=== PATIENT | female | born 1980 | race African-American/Black ===

== ENCOUNTER 2022-10-12 16:25 | Emergency (ER) | payer OTHER, SELFPAY ==
[2022-10-12 16:31] VITALS: BP 118/93; PULSE 70; RESP 16; TEMP 36.7; O2SAT 100; BMI 29.0
[2022-10-12 16:34] VITALS: BP 118/93; PULSE 64; RESP 13; O2SAT 98
--- NOTE | 2022-10-12 16:46 | ECG_ITS ---
The [facility] Test Date: 2022-10-12 Pat Name: Margaux Garcia Department: Room: - Gender: Female Patient Access Representative: : 1980 Requested By: YULIANA CREWS Order Number: [id number] Reading MD: BRANDI HENRY Measurements Intervals [place] Rate: 63 P: 68 CT: 194 QRS: 94 QRSD: 80 T: 69 QT: 420 QTc: 428 Interpretive Statements 1100 Sinus rhythm 7102 Moderate right axis deviation 9110 normal ECG No previous ECG available for comparison Electronically Signed On 10-14-2022 19:39:42 EDT by BRANDI HENRY
--- NOTE | 2022-10-12 16:46 | XR_ITS ---
The [address] [address] Patient Name: NEEL SAMSON MRN: [id number] date: 1980 Sex: F Assigned Patient Location: ER Current Patient Location: ED.MAIN Accession/Order Number: [id number] Exam Date: 10/12/2022 17:11 Report Date: 10/12/2022 18:25 At the request of: KALPESH MALHOTRA Procedure: XR chest 1V EXAM: XR chest 1V HISTORY: chest pain COMPARISON: None. TECHNIQUE: AP portable study FINDINGS: The cardiovascular silhouette is normal. Lung collins are well-expanded and clear. Pleural spaces are clear. The bony structures are unremarkable. IMPRESSION: No evidence for acute cardiopulmonary disease. Electronically authenticated by: Dane RINALDI Date: 10/12/2022 18:25
--- NOTE | 2022-10-12 16:49 | ED_ITS ---
HPI - Chest Pain General Chief Complaint: Chest Pain Stated Complaint: SHORTNESS OF BREATH CHEST PAIN BACK PAIN Time Seen by Provider: 10/12/22 16:35 Source: patient Mode of arrival: walk-in Limitations: no limitations History of Present Illness HPI narrative: 42-year-old female presents for chest pain and shortness of breath. She was fine last night when she went to bed and when she woke up early this morning she had these symptoms. It's been continuous all day. No injury. No fever. The pain is continuous. It doesn't seem to radiate and doesn't go into her back. No vomiting. Related Data Allergies Allergy/AdvReac Type Severity Reaction Status Date / Time No Known Drug Allergies Allergy Verified 10/12/22 17:15 Review of Systems ROS Narrative A ten point review of systems is negative except as noted above. PFSH PFSH Social History Smoking status: Former smoker Exam Narrative Exam Narrative: Nurses note and vital signs reviewed and patient is not hypoxic. General: The patient appears well and in no apparent distress. Patient is resting comfortably on cart. Skin: Warm, dry, no pallor noted. There is no rash noted. Head: Normocephalic, atraumatic Eye: Normal conjunctiva, no drainage Ears, Nose, Mouth, and Throat: oral mucosa is moist. Nares patent. Cardiovascular: Regular Rate and Rhythm Respiratory: Patient is in no distress, no accessory muscle use, lungs are clear to auscultation, no wheezing, rales or rhonchi Back: non-tender GI: Normal bowel sounds, no tenderness to palpation, no masses appreciated. No rebound, guarding, or rigidity noted. Musculoskeletal: The patient has no evidence of calf tenderness, no pitting edema, symmetrical pulses noted bilaterally Neurological: A&O, normal speech Psychiatric: Cooperative Constitutional Vital Signs - 24 hr 10/12/22 16:31 10/12/22 16:34 10/12/22 17:22 Temperature 98.1 F Pulse Rate 64 61 Pulse Rate [Monitor] 70 Respiratory Rate 16 13 14 Blood Pressure 118/93 H 115/81 H Blood Pressure [Left Arm] 118/93 H Pulse Oximetry 100 98 98 Oxygen Delivery Method Room Air Course Vital Signs Vital signs: Vital Signs Temperature 98.1 F 10/12/22 16:31 Pulse Rate 70 10/12/22 16:31 Respiratory Rate 16 10/12/22 16:31 Blood Pressure 118/93 H 10/12/22 16:31 Pulse Oximetry 100 10/12/22 16:31 Oxygen Delivery Method Room Air 10/12/22 16:31 Temperature 98.1 F 10/12/22 16:31 Pulse Rate 61 10/12/22 17:22 Respiratory Rate 14 10/12/22 17:22 Blood Pressure 115/81 H 10/12/22 17:22 Pulse Oximetry 98 10/12/22 17:22 Oxygen Delivery Method Room Air 10/12/22 16:31 MDM - Chest Pain MDM Narrative Medical decision making narrative: her workup including chest x-ray, troponin, and d-dimer is negative. She is able to be discharged home. Cause uncertain. Treatment diagnosis and follow up are discussed with the patient and her Differential Diagnosis Differential diagnosis: Likely pneumothorax, unstable angina pectoris, atypical chest pain, st elevation myocardial infarction, costochondritis and chest pain Lab Data Attestation: I reviewed the patient's lab results. Labs: Lab Results 10/12/22 Range/Units 17:05 WBC 4.6 (4.0-11.0) 10^3/uL RBC 4.76 (4.20-5.40) 10^6/uL Hgb 13.9 (12.0-16.0) g/dL Hct 42.2 (36.0-48.0) % MCV 88.7 (81.0-99.0) fL MCH 29.2 (26.7-34.0) pg MCHC 32.9 (29.9-35.2) g/dL RDW 12.6 (11.0-15.0) % Plt Count 254 (150-450) 10^3/uL MPV 9.1 L (9.5-13.5) fL Neut % (Auto) 43.9 (43.0-75.0) % Lymph % (Auto) 37.4 (20.5-60.0) % [place] % (Auto) 12.1 H (1.7-12.0) % Eos % (Auto) 5.5 (0.9-7.0) % Baso % (Auto) 0.7 (0.2-2.0) % Neut # (Auto) 2.0 (1.4-6.5) 10^3/uL Lymph # (Auto) 1.7 (1.2-3.8) 10^3/uL [place] # (Auto) 0.6 (0.3-0.8) 10^3/uL Eos # (Auto) 0.3 (0.0-0.7) 10^3/uL Baso # (Auto) 0.0 (0.0-0.1) 10^3/uL Abs Immat Gran (auto) 0.02 (0.00-0.03) 10^3/uL Imm/Tot Granulo (auto) 0.4 (0.0-0.5) % D-Dimer 0.50 (<=0.59) mg/L FEU Sodium 139 (136-145) mmol/L Potassium 4.0 (3.5-5.1) mmol/L Chloride 105 (98-107) mmol/L Carbon Dioxide 26.7 (21.0-32.0) mmol/L Anion Gap 11.3 BUN 12.0 (7.0-18.0) mg/dL Creatinine 0.90 (0.55-1.02) mg/dL Est GFR ( Amer) >60 (>=60) Est GFR (Non-Af Amer) >60 (>=60) BUN/Creatinine Ratio 13.3 Glucose 89 (74-106) mg/dL Calcium 8.9 (8.5-10.1) mg/dL Troponin I High Sens <4.0 L (4.0-51.3) pg/mL ECG Data Attestation: I personally reviewed and interpreted this ECG as follows: (EKG on my interpretation shows sinus rhythm with rate of sixty-three and no acute changes.) Heart Score History: Slightly/Non-Suspicious ECG: Normal Age: <45 years Risk Factors: No Risk Factors Troponin: <Normal Limit Total Heart Score Recommendations & Risks:: 0 Discharge Plan Discharge Chief Complaint: Chest Pain Clinical Impression: Atypical chest pain Patient Disposition: Home, Self-Care Time of Disposition Decision: 18:39 Mode of Transportation: Private Vehicle Instructions: Chest Pain (ED) Stand Alone Forms: Portal Instructions Referrals: YULIANA CREWS [Primary Care Provider] - 1 week
[2022-10-12 17:16] LABS: Basophils Percent Auto 0.7 % (0.2-2.0); Eosinophils Absolute Auto 0.3 10^3/uL (0.0-0.7); Eosinophils Percent Auto 5.5 % (0.9-7.0); Hematocrit 42.2 % (36.0-48.0); Hemoglobin 13.9 g/dL (12.0-16.0); Immature Granulocytes Abs Auto 0.02 10^3/uL (0.00-0.03); Immature Granulocytes Pct Auto 0.4 % (0.0-0.5); Lymphocytes Absolute Auto 1.7 10^3/uL (1.2-3.8); Lymphocytes Percent Auto 37.4 % (20.5-60.0); Mean Corpuscular HGB Conc 32.9 g/dL (29.9-35.2); Mean Corpuscular Hemoglobin 29.2 pg (26.7-34.0); Mean Corpuscular Volume 88.7 fL (81.0-99.0); Mean Platelet Volume 9.1 fL (9.5-13.5); Monocytes Absolute Auto 0.6 10^3/uL (0.3-0.8); Monocytes Percent Auto 12.1 % (1.7-12.0); Neutrophils Percent Auto 43.9 % (43.0-75.0); Platelet Count 254 10^3/uL (150-450); Red Blood Count 4.76 10^6/uL (4.20-5.40); Red Cell Distribution Width 12.6 % (11.0-15.0); White Blood Count 4.6 10^3/uL (4.0-11.0)
[2022-10-12 17:22] VITALS: BP 115/81; PULSE 61; RESP 14; RESP 20; O2SAT 98; O2SAT 99
[2022-10-12] MEDS: ASPIRIN 81 MG TAB.CHEW 324 MG PO (17:23)
[2022-10-12 17:30] VITALS: BP 114/80; PULSE 58; RESP 15; O2SAT 99
[2022-10-12 17:31] LABS: Anion Gap 11.3; BUN Creatinine Ratio 13.3; Calcium 8.9 mg/dL (8.5-10.1); Carbon Dioxide 26.7 mmol/L (21.0-32.0); Chloride 105 mmol/L (98-107); Estimated GFR (African America >60 (>=60); Estimated GFR (Non-African Ame >60 (>=60); Glucose 89 mg/dL (74-106); Sodium 139 mmol/L (136-145); Troponin I High Sensitivity <4.0 pg/mL (4.0-51.3)
[2022-10-12 18:00] VITALS: BP 115/77; PULSE 58; RESP 15; O2SAT 98
[2022-10-12 18:30] VITALS: BP 108/77
== END 2022-10-12 18:56 | disposition home or self-care (01) ==
PROVIDERS: Emergency Provider Emergency Medicine; PCP Family Medicine
DX: R07.89 Other chest pain (principal); Z87.891 Personal history of nicotine dependence
CPT/HCPCS: 36415; 71045; 80048; 84484; 85025; 85378; 93005; 99285

== ENCOUNTER 2022-11-13 07:55 | Outpatient (OUT) | payer OTHER, SELFPAY ==
--- NOTE | 2022-11-13 07:57 | US_ITS ---
The [address] [address] Patient Name: NEEL SAMSON MRN: [id number] date: 1980 Sex: F Assigned Patient Location: US Current Patient Location: US Accession/Order Number: [id number] Exam Date: 11/13/2022 08:05 Report Date: 11/13/2022 09:13 At the request of: YAZAN MARTINEZ Procedure: US renal BI EXAM: Renal ultrasound HISTORY: . Flank Pain R10.9, Mixed Incontinence N39.46 . COMPARISON: None. TECHNIQUE: Grayscale and color imaging was performed FINDINGS: Scanning of the filled bladder demonstrates a volume of 394 cc. No masses are noted. No bladder wall thickening is noted. Post void residual was 39 cc. Scanning of the right kidney demonstrates right kidney to measure 12.7 x 4.7 x 4.9 cm. Color-flow is noted. There is a 1.2 x 1 cm cyst involving the right kidney. No solid renal cortical masses or hydronephrosis is noted. Left kidney measures 11.2 x 5.2 x 5.3 cm. Color-flow is noted. No solid renal cortical masses or hydronephrosis is noted. Impression: 1. Normal-appearing left kidney. 2. 1.2 cm cyst involving the right kidney. No hydronephrosis. 3. Normal-appearing bladder. Post void residual was 39 cc for a post void residual of approximately 10%. Electronically authenticated by: BRYAN INGRAM Date: 11/13/2022 09:13
== END 2022-11-13 07:56 | disposition home or self-care (01) ==
LOC: US 07:55
PROVIDERS: PCP Family Medicine; Visit Provider Urology
DX: R10.9 Unspecified abdominal pain (principal); N39.46 Mixed incontinence; R31.29 Other microscopic hematuria; N28.1 Cyst of kidney, acquired
CPT/HCPCS: 76775

== ENCOUNTER 2022-11-23 16:38 | Emergency (ER) | payer OTHER, SELFPAY ==
[2022-11-23 16:53] VITALS: BP 129/74; PULSE 72; RESP 14; TEMP 37.1; O2SAT 100; BMI 27.1
[2022-11-23 17:22] LABS: Bilirubin Urine NEGATIVE (NEGATIVE); Blood Urine MODERATE (NEGATIVE); Clarity Urine CLEAR (CLEAR); Color Urine YELLOW (YELLOW); Glucose Urine UA NEGATIVE (NEGATIVE); Ketones Urine NEGATIVE (NEGATIVE); Leukocyte Esterase Urine NEGATIVE (NEGATIVE); Nitrite Urine NEGATIVE (NEGATIVE); Protein Urine NEGATIVE (NEG/TRACE); Specific Gravity Urine 1.025 (1.005-1.025); Urobilinogen Urine 0.2 EU/dL (0.2-1.0); pH Urine 5.5 (5.0-9.0)
[2022-11-23 17:30] LABS: Urine Microscopic Indicated YES
[2022-11-23 17:31] LABS: Bacteria Urine NONE SEEN #/HPF (NONE SEEN); Cast Seen? NONE SEEN #/LPF (NONE SEEN); Crystals Seen? None Seen #/HPF (None Seen); Mucus Urine NONE SEEN (NONE SEEN); RBC Urine 0-2 #/HPF (0-2); Squamous Epithelial Cell Urine FEW #/LPF (NONE/RARE); Urine Culture Indicated NO; WBC Urine NONE SEEN #/HPF (NONE SEEN)
--- NOTE | 2022-11-23 18:59 | CT_ITS ---
[address] [address] Patient Name: NEEL SAMSON MRN: [id number] date: 1980 Sex: F Assigned Patient Location: ER Current Patient Location: [facility] Accession/Order Number: [id number] Exam Date: 11/23/2022 19:25 Report Date: 11/23/2022 20:46 At the request of: SOCO SOLIS Procedure: CT abdomen pelvis wo con EXAM: CT abdomen pelvis wo con REASON FOR EXAM: Female, 42 years, right flank pain. TECHNIQUE: Computed tomography of the abdomen and pelvis is performed in the axial projection from the lung bases to the pubic symphysis. Sagittal and coronal reconstructed images are performed. Dose reduction techniques were achieved by using automated exposure control and/or adjustment of mA and/or KVP according to patient size and/or use of iterative reconstruction technique. Study was performed without IV contrast. Study was performed without oral contrast. COMPARISON: 03/16/2018 FINDINGS: Lung bases: The lung bases are clear. There is no pleural effusion. The visualized portions of the heart are unremarkable. The lack of intravenous contrast slightly limits evaluation of the solid abdominal organs. Liver: The liver is normal. Gallbladder: The gallbladder is contracted. Spleen: The spleen is normal. Pancreas: The pancreas is normal. Adrenal glands: The adrenal glands are normal bilaterally. Right kidney: The kidney is normal in size. There is a 1.1 cm low-attenuation region in the inferior pole of the right kidney consistent with a cyst. There is no renal calculus or hydronephrosis. Left kidney: The kidney is normal in size. There is no renal calculus or hydronephrosis. Stomach: The stomach is normal. Small bowel: The small bowel is normal. Large bowel: The colon is normal. Appendix: The appendix is visualized, and is normal. Aorta: The aorta is normal. IVC: The IVC is normal. Retroperitoneum: Normal retroperitoneum. Bladder: The bladder is normal. Pelvic organs: The uterus is absent, consistent with hysterectomy. Abdominal wall: There is a tiny fat-containing umbilical hernia. Postoperative changes are seen to the anterior low abdominal wall. Osseous structures: Degenerative changes are seen in the visualized spine. CT/CT abdomen pelvis wo con IMPRESSION: No bowel obstruction or acute renal pathology. Normal appendix. Additional nonacute findings, as described above. Electronically authenticated by: CARLI GOMEZ Date: 11/23/2022 20:46
[2022-11-23 19:30] LABS: Basophils Percent Auto 0.7 % (0.2-2.0); Eosinophils Absolute Auto 0.1 10^3/uL (0.0-0.7); Eosinophils Percent Auto 2.2 % (0.9-7.0); Hematocrit 39.5 % (36.0-48.0); Immature Granulocytes Abs Auto 0.01 10^3/uL (0.00-0.03); Immature Granulocytes Pct Auto 0.2 % (0.0-0.5); Lymphocytes Percent Auto 37.6 % (20.5-60.0); Mean Corpuscular HGB Conc 32.9 g/dL (29.9-35.2); Mean Corpuscular Volume 88.2 fL (81.0-99.0); Monocytes Absolute Auto 0.6 10^3/uL (0.3-0.8); Monocytes Percent Auto 10.9 % (1.7-12.0); Neutrophils Absolute Auto 2.6 10^3/uL (1.4-6.5); Neutrophils Percent Auto 48.4 % (43.0-75.0); Platelet Count 235 10^3/uL (150-450); Red Blood Count 4.48 10^6/uL (4.20-5.40); Red Cell Distribution Width 13.2 % (11.0-15.0); White Blood Count 5.4 10^3/uL (4.0-11.0)
[2022-11-23 19:45] LABS: Alanine Aminotransferase 27 U/L (14-59); Albumin Globulin Ratio 1.2; Albumin Level 4.2 g/dL (3.4-5.0); Alkaline Phosphatase 65 U/L (46-116); Aspartate Amino Transferase 18 U/L (15-37); BUN Creatinine Ratio 10.2; Bilirubin Total 0.8 mg/dL (0.2-1.0); Calcium 8.3 mg/dL (8.5-10.1); Carbon Dioxide 22.9 mmol/L (21.0-32.0); Chloride 107 mmol/L (98-107); Estimated GFR (African America >60 (>=60); Estimated GFR (Non-African Ame >60 (>=60); Globulin 3.4 g/dL; Glucose 80 mg/dL (74-106); Sodium 141 mmol/L (136-145); Total Protein 7.6 g/dL (6.4-8.2)
[2022-11-23 19:50] LABS: Potassium 2.9 mmol/L (3.5-5.1)
[2022-11-23] MEDS: KETOROLAC TROMETHAMINE 30 MG/ML VIAL IVP (20:08)
[2022-11-23] MEDS: ONDANSETRON PF 4 MG/2 ML VIAL IV (20:08)
[2022-11-23] MEDS: 0.9 % SODIUM CHLORIDE 1,000 ML 1000 ML IV ×2 (20:09→23:39)
--- NOTE | 2022-11-23 20:43 | ED_ITS ---
HPI - General Adult General Chief complaint: Urogenital-Female Stated complaint: severe back pain Time Seen by Provider: 11/23/22 17:43 Source: patient and family Mode of arrival: Wheelchair Limitations: no limitations History of Present Illness HPI narrative: 42-year-old female presents her chief complaint of right flank pain. States she's had the pain on and off for last several days. She has pain that radiates from her right flank into the groin area. Mild nausea. Denies known history of stones. Vital signs are stable she is afebrile. Related Data Previous Rx's Medication Instructions Recorded cephalexin 500 mg capsule 500 mg PO BID 7 days #14 caps 11/23/22 Allergies Allergy/AdvReac Type Severity Reaction Status Date / Time No Known Drug Allergies Allergy Verified 11/23/22 17:02 Review of Systems ROS Narrative All Systems are negative except as noted/marked.All systems reviewed and otherwise negative PFSH PFSH Social History Smoking status: Former smoker Exam Narrative Exam Narrative: Nurses note and vital signs reviewed and patient is not hypoxic. General: The patient appears well and in no apparent distress. Patient is resting comfortably on cart. Skin: Warm, dry, no pallor noted. There is no rash noted. Head: Normocephalic, atraumatic Eye: Normal conjunctiva, no drainage, EOMI. PERRL Ears, Nose, Mouth, and Throat: oral mucosa is moist. Nares patent. Mouth without vesicles. Ear canals patent. Tm's without Erythema Cardiovascular: Regular Rate and Rhythm Respiratory: Patient is in no distress, no accessory muscle use, lungs are clear to auscultation, no wheezing, rales or rhonchi Back: non-tender, no CVA tenderness bilaterally to percussion. GI: Normal bowel sounds, no tenderness to palpation, no masses appreciated. No rebound, guarding, or rigidity noted. Musculoskeletal: The patient has no evidence of calf tenderness, no pitting edema, symmetrical pulses noted bilaterally Neurological: A&O x4, normal speech Psychiatric: Cooperative Constitutional Vital Signs, click to edit/add: Last Vital Signs Temp 98.8 F 11/23/22 16:53 Pulse 72 11/23/22 16:53 Resp 14 11/23/22 16:53 BP 129/74 11/23/22 16:53 Pulse Ox 100 11/23/22 16:53 O2 Del Method Room Air 11/23/22 16:53 Course Vital Signs Vital signs: Vital Signs Temperature 98.8 F 11/23/22 16:53 Pulse Rate 72 11/23/22 16:53 Respiratory Rate 14 11/23/22 16:53 Blood Pressure 129/74 11/23/22 16:53 Pulse Oximetry 100 11/23/22 16:53 Oxygen Delivery Method Room Air 11/23/22 16:53 Temperature 98.8 F 11/23/22 16:53 Pulse Rate 72 11/23/22 16:53 Respiratory Rate 14 11/23/22 16:53 Blood Pressure 129/74 11/23/22 16:53 Pulse Oximetry 100 11/23/22 16:53 Oxygen Delivery Method Room Air 11/23/22 16:53 Medical Decision Making MDM Narrative Medical decision making narrative: 42-year-old female presents her chief complaint of right flank pain. States she's had the pain on and off for last several days. She has pain that radiates from her right flank into the groin area. Mild nausea. Denies known history of stones. Vital signs are stable she is afebrile. Presented chief complaint of flank pain. She has seen urology in the past for a cystoscopy. She had blood in her urine here today. CT scan abdomen and pelvis ruled out any nephrolithiasis. Patient was medicated here with Toradol Zofran. Her symptoms did improve. CBC and CMP reviewed. Patient at low potassium medicated here with 40 mEq of potassium. Patient be instructed to follow-up with neurology Dr. Sotelo primary care physician. She'll be discharged home with potassium and Keflex. His pain has improved. Patient's pain and back pain due to muscle spasm. No acute pathology for flank pain patient medicated here with for her hypokalemia discharged home patient verbalizes understanding resupply of care Differential Diagnosis Differential Diagnosis: Nephrolithiasis, flank pain, hematuria, urinary tract infection Medical Records Medical records reviewed: Yes I reviewed the patient's medical records Lab Data Lab results reviewed: Yes I reviewed the patient's lab results Labs: Lab Results 11/23/22 11/23/22 Range/Units 17:00 19:20 WBC 5.4 (4.0-11.0) 10^3/uL RBC 4.48 (4.20-5.40) 10^6/uL Hgb 13.0 (12.0-16.0) g/dL Hct 39.5 (36.0-48.0) % MCV 88.2 (81.0-99.0) fL MCH 29.0 (26.7-34.0) pg MCHC 32.9 (29.9-35.2) g/dL RDW 13.2 (11.0-15.0) % Plt Count 235 (150-450) 10^3/uL MPV 10.0 (9.5-13.5) fL Neut % (Auto) 48.4 (43.0-75.0) % Lymph % (Auto) 37.6 (20.5-60.0) % [place] % (Auto) 10.9 (1.7-12.0) % Eos % (Auto) 2.2 (0.9-7.0) % Baso % (Auto) 0.7 (0.2-2.0) % Neut # (Auto) 2.6 (1.4-6.5) 10^3/uL Lymph # (Auto) 2.0 (1.2-3.8) 10^3/uL [place] # (Auto) 0.6 (0.3-0.8) 10^3/uL Eos # (Auto) 0.1 (0.0-0.7) 10^3/uL Baso # (Auto) 0.0 (0.0-0.1) 10^3/uL Abs Immat Gran (auto) 0.01 (0.00-0.03) 10^3/uL Imm/Tot Granulo (auto) 0.2 (0.0-0.5) % Sodium 141 (136-145) mmol/L Potassium 2.9 L* (3.5-5.1) mmol/L Chloride 107 (98-107) mmol/L Carbon Dioxide 22.9 (21.0-32.0) mmol/L Anion Gap 14.0 BUN 10.0 (7.0-18.0) mg/dL Creatinine 0.98 (0.55-1.02) mg/dL Est GFR ( Amer) >60 (>=60) Est GFR (Non-Af Amer) >60 (>=60) BUN/Creatinine Ratio 10.2 Glucose 80 (74-106) mg/dL Calcium 8.3 L (8.5-10.1) mg/dL Total Bilirubin 0.8 (0.2-1.0) mg/dL AST 18 (15-37) U/L ALT 27 (14-59) U/L Alkaline Phosphatase 65 (46-116) U/L Total Protein 7.6 (6.4-8.2) g/dL Albumin 4.2 (3.4-5.0) g/dL Globulin 3.4 g/dL Albumin/Globulin Ratio 1.2 Urine Color Yellow (YELLOW) Urine Clarity Clear (CLEAR) Urine pH 5.5 (5.0-9.0) Ur Specific [place] 1.025 (1.005-1.025) Urine Protein Negative (NEG/TRACE) mg/dL Urine Glucose (UA) Negative (NEGATIVE) mg/dL Urine Ketones Negative (NEGATIVE) mg/dL Urine Occult Blood Moderate A (NEGATIVE) Urine Nitrite Negative (NEGATIVE) Urine Bilirubin Negative (NEGATIVE) Urine Urobilinogen 0.2 (0.2-1.0) EU/dL Ur Leukocyte Esterase Negative (NEGATIVE) Urine RBC 0-2 (0-2) #/HPF Urine WBC None seen (NONE SEEN) #/HPF Ur Squamous Epith Cells Few A (NONE/RARE) #/LPF Urine Crystals None seen (None Seen) #/HPF Urine Bacteria None seen (NONE SEEN) #/HPF Urine Casts None seen (NONE SEEN) #/LPF Urine Mucus None seen (NONE SEEN) Ur Culture Indicated? No Discharge Plan Discharge Chief Complaint: Urogenital-Female Clinical Impression: Hematuria, Acute hypokalemia Patient Disposition: Home, Self-Care Time of Disposition Decision: 20:55 Prescriptions / Home Meds: New cephalexin 500 mg capsule 500 mg PO BID 7 Days Qty: 14 0RF Instructions: Hypokalemia (ED), Hematuria (ED) Stand Alone Forms: Portal Instructions Referrals: YULIANA CREWS [Primary Care Provider] - 1 week Discharge Date/Time: 11/24/22 01:33
[2022-11-23] MEDS: POTASSIUM CHLORIDE IN WATER 10 MEQ/100 ML PIGGYBACK 100 MEQ IV ×2 (22:04→22:06)
--- NOTE | 2022-11-23 23:48 | ECG_ITS ---
The [facility] Test Date: 2022-11-23 Pat Name: NEEL SAMSON Department: Room: - Gender: Female Exhibit Display Representative: : 1980 Requested By: YULIANA CREWS Order Number: [id number] Reading MD: BRANDI HENRY Measurements Intervals [place] Rate: 69 P: 90 [place]: 194 QRS: 94 QRSD: 86 T: 76 QT: 436 QTc: 456 Interpretive Statements 1100 Sinus rhythm 7102 Moderate right axis deviation 8304 Long QTc interval 9150 abnormal ECG Compared to ECG 10/12/2022 16:38:07 No significant changes Electronically Signed On 11-25-2022 18:21:20 EDT by BRANDI HENRY
[2022-11-24] MEDS: 0.9 % SODIUM CHLORIDE 1,000 ML 1000 ML IV (00:13)
[2022-11-24] MEDS: POTASSIUM CHLORIDE IN WATER 10 MEQ/100 ML PIGGYBACK 100 MEQ IV (00:13)
[2022-11-24] MEDS: HYDROCODONE/ACETAMINOPHEN 5-325 MG TABLET 4 TAB PO (01:14)
== END 2022-11-24 01:33 | disposition home or self-care (01) ==
PROVIDERS: Emergency Medicine; Physician Assistant; Emergency Provider Internal Medicine; PCP Family Medicine
DX: E87.6 Hypokalemia (principal); R31.9 Hematuria, unspecified; Z87.891 Personal history of nicotine dependence
CPT/HCPCS: 36415; 74176; 80053; 81001; 81003; 85025; 93005; 96365; 96366; 96375; 96376; 99285

== ENCOUNTER 2023-08-21 07:55 | Outpatient (OUT) | payer OTHER, SELFPAY ==
--- NOTE | 2023-08-20 | XR_ITS ---
The [address] [address] Patient Name: NEEL SAMSON MRN: [id number] date: 1980 Sex: F Assigned Patient Location: Current Patient Location: Accession/Order Number: [id number] Exam Date: 08/20/2023 10:45 Report Date: 08/20/2023 11:43 At the request of: BRADEN TORO Procedure: XR ankle RT min 3V PROCEDURE: XR ankle RT min 3V, XR foot RT min 3V COMPARISON: 07/01/2019. HISTORY: RIGHT ANKLE PAIN FINDINGS: BONES:No fracture, acute abnormality, or significant arthropathy. SOFT TISSUES:Negative. No visible soft tissue swelling. EFFUSION:None visible. OTHER: Negative. XR/XR ankle RT min 3V IMPRESSION: No acute radiographic abnormality Electronically authenticated by: BRYAN HUANG Date: 08/20/2023 11:43
--- NOTE | 2023-08-20 | XR_ITS ---
The [address] [address] Patient Name: NEEL SAMSON MRN: [id number] date: 1980 Sex: F Assigned Patient Location: Current Patient Location: Accession/Order Number: [id number] Exam Date: 08/20/2023 10:45 Report Date: 08/20/2023 11:43 At the request of: BRADEN TORO Procedure: XR foot RT min 3V PROCEDURE: XR ankle RT min 3V, XR foot RT min 3V COMPARISON: 07/01/2019. HISTORY: RIGHT ANKLE PAIN FINDINGS: BONES:No fracture, acute abnormality, or significant arthropathy. SOFT TISSUES:Negative. No visible soft tissue swelling. EFFUSION:None visible. OTHER: Negative. XR/XR foot RT min 3V IMPRESSION: No acute radiographic abnormality Electronically authenticated by: BRYAN HUANG Date: 08/20/2023 11:43
== END 2023-08-21 07:56 | disposition home or self-care (01) ==
LOC: EC 07:55
PROVIDERS: PCP Family Medicine; Visit Provider Podiatrist Foot & Ankle Surgery
DX: M79.671 Pain in right foot (principal); M25.571 Pain in right ankle and joints of right foot
CPT/HCPCS: 73610; 73630

== ENCOUNTER 2023-09-21 14:00 | Emergency (ER) | payer OTHER, SELFPAY ==
[2023-09-21 14:05] VITALS: BP 142/76; PULSE 86; TEMP 36.6; O2SAT 99; BMI 29.8
--- OUTSIDE RECORDS SUMMARY | 2023-09-21 14:08 | XMS_ITS | CCD ---
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 Name Role Phone House, Sr Blade Soriano Primary Care Provider ALEX LITTLE Referring Unavailable FALLSBUR[place], BLADE Soriano Primary Care Unavailable Isiah Evangelista Unavailable House Blade Ballesteros Primary Care Provider DO Blade Crews Primary Care Provider DO Bryan Quiros Attending Provider ELEONORA, DR BRIDGES Primary Care Unavailable KARASIK, DR QUINTERO Admitting Unavailable KARASIK, DR QUINTERO Attending Unavailable KARASIK, DR QUINTERO Admitting Unavailable KARASIK, DR QUINTERO Consulting Unavailable HOUSE, DR BRIDGES Primary Care Unavailable KARASIK, DR QUINTERO Attending Unavailable MORGOS, KIRIT Consulting Unavailable DIDIER, HANS Consulting Unavailable HOUSE, DR BRIDGES Primary Care Unavailable HAY, DR GUERRERO Attending Unavailable HAY, DR GUERRERO Admitting Unavailable HAY, DR GUERRERO Consulting Unavailable KARASIK, DR QUINTERO Admitting Unavailable KARASIK, DR QUINTERO Consulting Unavailable KARASIK, DR QUINTERO Attending Unavailable HOUSE, DR BRIDGES Primary Care Unavailable KARASIK, DR QUINTERO Attending Unavailable KARASIK, DR QUINTERO Admitting Unavailable HOUSE, DR BRIDGES Primary Care Unavailable TAYLOR, DICK Consulting Unavailable KARASIK, DR QUINTERO Admitting Unavailable KARASIK, DR QUINTERO Consulting Unavailable HOUSE, DR BRIDGES Primary Care Unavailable KARASIK, DR QUINTERO Attending Unavailable HOUSE, DR BRIDGES Primary Care Unavailable DIAB, MERNA Attending Unavailable DIAB, MERNA Admitting Unavailable DIAB, MERNA Consulting Unavailable ELEONORA, DR BRIDGES Primary Care Unavailable DREW, DR ALEX Kemp Consulting Unavailable MAGALI RING Attending Unavailable MARÍA ELENA, MAGALI Admitting Unavailable MAGALI RING Consulting Unavailable WICHO RAINEY Consulting Unavailable KARASIK, DR QUINTERO Admitting Unavailable KARASIK, DR QUINTERO Consulting Unavailable HOUSE, DR BRIDGES Primary Care Unavailable KARASIK, DR QUINTERO Attending Unavailable SAL, DR BRYAN Lawlre Consulting Unavailable KARASIK, DR QUINTERO Admitting Unavailable KARASIK, DR QUINTERO Consulting Unavailable HOUSE, DR BRIDGES Primary Care Unavailable KARASIK, DR QUINTERO Attending Unavailable ZIEBER, DR AUSTIN Kemp Consulting Unavailable KARASIK, DR QUINTERO Admitting Unavailable KARASIK, DR QUINTERO Consulting Unavailable KARASIK, DR QUINTERO Attending Unavailable HOUSE, DR BRIDGES Primary Care Unavailable KARASIK, DR QUINTERO Admitting Unavailable KARASIK, DR QUINTERO Consulting Unavailable HOUSE, DR BRIDGES Primary Care Unavailable KARASIK, DR QUINTERO Attending Unavailable KARASIK, DR QUINTERO Admitting Unavailable KARASIK, DR QUINTERO Consulting Unavailable KARASIK, DR QUINTERO Attending Unavailable HOUSE, DR BRIDGES Primary Care Unavailable HOUSE, DR BRIDGES Primary Care Unavailable RUSSELL, DR ALEX Kemp Admitting Unavailable DREW, DR ALEX Kemp Consulting Unavailable DREW, DR ALEX Kemp Attending Unavailable SAL, DR BRYAN Lawler Consulting Unavailable KARASIK, DR QUINTERO Admitting Unavailable MARTINEZ, DR HAND Consulting Unavailable HOUSE, DR BRIDGES Primary Care Unavailable KARASIK, DR QUINTERO Attending Unavailable KARASIK, DR QUINTERO Consulting Unavailable KARASIK, DR QUINTERO Procedure Practitioner Neri LONG, GIOVANNA Consulting Unavailable JUAN, DR HAND Procedure Practitioner Nereyda CALDERON, MONI Consulting Unavailable Eleonora, Blade Soriano Primary Care Physician [phone] AMELIE ESPARZA Attending Unavailable FRED, AMELIE Ch Attending Unavailable KARASIKIngrid Referring Unavailable Constantino MARTINEZ Attending Unavailable Constantino MARTINEZ Attending Unavailable HALASY, RICO Attending Unavailable Medications Current Medications Medication Drug Class(es) Dates Sig (Normalized) Sig (Original) Amoxicillin (2 sources) Penicillin-class Antibacterial Start: 10-30-2022 amoxicillin BID Start Date: 10/30/22 Status: Ordered ferrous sulfate 325 mg oral tablet (3 sources) Start: 06-27-2021 take 325 mg by mouth once daily Ferrous Sulfate Active 325 MG PO Daily June 27, 2021 2:37pm Fluticasone Propion-Salmeterol (3 sources) Corticosteroid, beta2-Adrenergic Agonist Start: 04-28-2018 take 1 puff(s) by inhalation every twelve hours Fluticasone Propion-Salmeterol (Advair Diskus) 100-50 mcg/dose Blister With Device Active 1 PUFF INHALATION Q12H April 28, 2018 9:09am nitrofurantoin, macrocrystals 25 mg / nitrofurantoin, monohydrate 75 mg oral capsule (1 source) Nitrofuran Antibacterial Start: 01-08-2023 nitrofurantoin macrocrystals-monoh ydrate 100 mg Cap Start Date: 01/08/23 Status: Ordered topiramate (11 sources) Start: 10-30-2022 topiramate Oral, BID Start Date: 10/30/22 Status: Ordered Start: 05-23-2021 take 1 capsule by mo uth twice daily topiramate XR (QUDEXY XR) 50 mg cap(s) Take 50 mg by mouth twice daily. 0 05/23/2021 Active Comment on above: Take 50 mg by mouth twice daily. Completed/Discontinued Medications Medication Drug Class(es) Dates Sig (Normalized) Sig (Original) ciprofloxacin 500 mg oral tablet (1 source) Quinolone Antimicrobial Start: 10-30-2022 End: 11-01-2022 take 1 tablet by mouth once daily Cipro 500 mg Tab 500 mg = 1 tab(s), Oral, Daily, Take one tab day before procedure, take one tab after procedure, X 2 day(s), # 2 tab(s), Refills(s) 0, Pharmacy: [facility]/pharmacy #[id number], 170, cm, 10/30/22 10:53:00 EDT, Height/Length Dosing, 86.5, kg, 10/30/22 10:53:00 EDT,... Start Date: 10/30/22 Stop Date: 11/01/22 Status: Ordered gadoteridol (PROHANCE) injection 18 mL (1 source) Start: 10-22-2019 End: 10-22-2019 gadoteridol (PROHANCE) injection 18 mL phenytoin sodium 100 mg extended release oral capsule (3 sources) Anti-epileptic Agent Start: 04-28-2018 End: 06-27-2021 take 1 capsule by mouth once daily Phenytoin Sodium Extended Discontinued 1 CAP PO Daily April 28, 2018 8:51am June 27, 2021 2:37pm sertraline 100 mg oral tablet (7 sources) Serotonin Reuptake Inhibitor sertraline (ZOLOFT) 100 mg tablet Take 100 mg by mouth. 0 Active Comment on above: Take 100 mg by mouth . SUMAtriptan 50 mg oral tablet (6 sources) Serotonin-1b and Serotonin-1d Receptor Agonist Start: 06-19-2021 SUMAtriptan (IMITREX) 50 mg tablet traZODone hydrochloride 50 mg oral tablet (9 sources) Serotonin Reuptake Inhibitor Start: 05-23-2021 take 1 tablet by mouth once daily at bedtime traZODone (DESYREL) 50 mg tablet TAKE 1 TABLET BY MOUTH EVERYDAY AT BEDTIME 0 05/23/2021 Active Comment on above: TAKE 1 TABLET BY AYLA TH EVERYDAY AT BEDTIME Problems Active Problems Problem Classification Problem Date Documented Da te Episodic/Chronic Abdominal pain (10 sources) Pelvic and perineal pain; Translations: [Unspecified abdominal pain] Onset: 12-21-2021 Episodic Asthma (3 sources) Unspecified asthma, uncomplicated; Translations: [Asthma] Onset: 05-14-2022 10-30-2022 Chronic Deficiency and other anemia (9 sources) Iron deficiency anemia; Translations: [Iron deficiency anemia, unspecified] Onset: 09-29-2021 Episodic Deficiency and other anemia (1 source) Iron deficiency anemia, unspecified; Translations: [Iron deficiency anemia, unspecified] Episodic Endometriosis (1 source) Endometriosis of pelvic peritoneum; Translations: [ENDOMETRIOSIS OF PELVIC PERITONEUM] Onset: 01-11-2022 Chronic Epilepsy; convulsions (3 sources) Refractory epilepsy; Translations: [Epilepsy] 10-30-2022 Chronic Genitourinary symptoms and ill-defined conditions (4 sources) Mixed incontinence; Translations: [Incontinence] Onset: 10-30-2022 Chronic Genitourinary symptoms and ill-defined conditions (7 sources) Personal history of urinary (tract) infections; Translations: [Microscopic hematuria] Onset: 05-14-2022 Episodic Headache; including migraine (2 sources) Headache 10-30-2022 Episodic Menstrual disorders (6 sources) Excessive and frequent menstruation with regular cycle; Translations: [Dysmenorrhea, unspecified] Onset: 12-21-2021 Chronic Mood disorders (1 source) Bipolar disorder, unspecified; Translations: [BIPOLAR DISORDER UNSPECIFIED] Onset: 01-23-2023 Chronic Nutritional deficiencies (1 source) Iron deficiency; Translations: [Iron deficiency] Onset: 10-12-2021 10-12-2021 Episodic Other aftercare (1 source) 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; Translations: [OTH LACQUER MIXER CURRENT DRUG THERAPY] Onset: 05-28-2022 Episodic Other diseases of kidney and ureters (1 source) Acquired renal cyst without neoplastic change; Translations: [Cyst of kidney, acquired] Onset: 01-08-2023 Episodic Other diseases of kidney and ureters (1 source) Cyst of kidney 01-08-2023 Episodic Other female genital disorders (4 sources) Abnormal uterine and vaginal bleeding, unspecified; Translations: [ABNORMAL UTERINE VAGINAL BLEED UNS] Onset: 05-30-2022 Chronic Other female genital disorders (1 source) Benign endometrial hyperplasia; Translations: [BENIGN ENDOMETRIAL HYPERPLASIA] Onset: 01-11-2022 Chronic Other female genital disorders (1 source) Unspecified dyspareunia; Translations: [UNSPECIFIED DYSPAREUNIA] Onset: 01-11-2022 Chronic Other female genital disorders (4 sources) Other specified noninflammatory disorders of vagina; Translations: [OTH SPEC NONINFLAMMATORY D/O VAGINA] Onset: 05-30-2022 Episodic Other gastrointestinal disorders (1 source) Irritable bowel syndrome without diarrhea; Translations: [IRRITABLE BOWEL SYND W/O DIARRHEA] Onset: 05-14-2022 Chronic Other lower respiratory disease (1 source) Personal history of pneumonia (recurrent); Translations: [PERSONAL HX OF PNEUMONIA RECURRENT] Onset: 05-14-2022 Episodic Other non-traumatic joint disorders (1 source) Pain in left shoulder; Translations: [PAIN IN LEFT SHOULDER] Onset: 05-14-2022 Episodic Other screening for suspected conditions (not mental disorders or infectious disease) (1 source) Abnormal findings on diagnostic imaging of other specified body structures; Translations: [ABNORML FIND DX IMG OTH BODY STRUC] Onset: 12-21-2021 Chronic Other skin disorders (1 source) Easy bruising; Translations: [Other skin changes] Episodic Other skin disorders (1 source) Follicular disorder, unspecified; Translations: [FOLLICULAR DISORDER UNSPECIFIED] Onset: 05-28-2022 Episodic Other upper respiratory infections (4 sources) Acute pharyngitis, unspecified; Translations: [ACUTE PHARYNGITIS UNSPECIFIED] Onset: 05-27-2022 Episodic Spondylosis; intervertebral disc disorders; other back problems (4 sources) Pain in thoracic spine; Translations: [PAIN IN THORACIC SPINE] Onset: 05-10-2022 Episodic Sprains and strains (1 source) Strain of other muscles, fascia and tendons at shoulder and upper arm level, left arm, initial encounter; Translations: [STRN OTH MSC F TEND SHLDR UA LA INT] Onset: 05-14-2022 Episodic Substance-related disorders (1 source) Nicotine dependence, cigarettes, uncomplicated; Translations: [NICOTINE DEPEND CIGARETTES UNCOMP] Onset: 01-11-2022 Chronic Unclassified (1 source) CONTACT W/AND (SUSP) EXPOS COVID-19; Translations: [CONTACT W/AND (SUSP) EXPOS COVID-19] Onset: 05-28-2022 Viral infection (2 sources) Genital herpes simplex 10-30-2022 Chronic Viral infection (1 source) Viral infection, unspecified; Translations: [VIRAL INFECTION UNSPECIFIED] Onset: 05-28-2022 Episodic Past or Other Problems Problem Classification Problem Date Documented Date Episodic/Chronic Benign neoplasm of uterus (1 source) Leiomyoma of uterus, unspecified; Translations: [LEIOMYOMA OF UTERUS UNSPECIFIED] Onset: 02-26-2022 Episodic Immunizations and screening for infectious disease (1 source) Encounter for screening for human papillomavirus (HPV); Translations: [ENC SCREENING HUMAN PAPILLOMAVIRUS] Onset: 12-14-2021 Episodic Other lower respiratory disease (4 sources) Dyspnea, unspecified; Translations: [DYSPNEA UNSPECIFIED] Onset: 02-26-2022 Episodic Other nervous system disorders (3 sources) Anesthesia of skin; Translations: [ANESTHESIA OF SKIN] Onset: 02-25-2022 Episodic Other nervous system disorders (1 source) Paresthesia of skin; Translations: [PARESTHESIA OF SKIN] Onset: 02-27-2022 Episodic Other screening for suspected conditions (not mental disorders or infectious disease) (9 sources) Other specified abnormal findings of blood chemistry; Translations: [Encounter for screening mammogram for malignant neoplasm of breast] Onset: 12-12-2021 Episodic Ovarian cyst (1 source) Unspecified ovarian cyst, right side; Translations: [UNSPECIFIED OVARIAN CYST RIGHT SIDE] Onset: 12-21-2021 Episodic Residual codes; unclassified (1 source) Acquired absence of both cervix and uterus; Translations: [ACQUIRED ABSENCE BOTH CERVIX AND UTERUS] Onset: 02-27-2022 Episodic Results Test Name Value Interpretation Reference Range Facility Patient Educationon 01-09-20 Patient Education Obstetrics and Gynecology Kegel Exercises Kegel exercises can help strengthen your pelvic floor muscles. The pelvic floor is a group of muscles that support your rectum, small intestine, and bladder. In females, pelvic floor muscles also help support the uterus. These muscles help you control the flow of urine and stool (feces). Kegel exercises are painless and simple. They do not require any equipment. Your provider may suggest Kegel exercises to: ? Improve bladder and bowel control. ? Improve sexual response. ? Improve weak pelvic floor muscles after surgery to remove the uterus (hysterectomy) or after , in females. ? Improve weak pelvic floor muscles after prostate gland removal or surgery, in males. Kegel exercises involve squeezing your pelvic floor muscles. These are the same muscles you squeeze when you try to stop the flow of urine or keep from passing gas. The exercises can be done while sitting, standing, or lying down, but it is best to vary your position. Ask your health care provider which exercises are safe for you. Do exercises exactly as told by your health care provider and adjust them as directed. Do not begin these exercises until told by your health care provider. Exercises How to do Kegel exercises: 1. Squeeze your pelvic floor muscles tight. You should feel a tight lift in your rectal area. If you are a female, you should also feel a tightness in your vaginal area. Keep your stomach, buttocks, and legs relaxed. 2. Hold the muscles tight for up to 10 seconds. 3. Breathe normally. 4. Relax your muscles for up to 10 seconds. 5. Repeat as told by your health care provider. Repeat this exercise daily as told by your health care provider. Continue to do this exercise for at least 4?6 weeks, or for as long as told by your health care provider. You may be referred to a physical therapist who can help you learn more about how to do Kegel exercises. Depending on your condition, your health care provider may recommend: ? Varying how long you squeeze your muscles. ? Doing several sets of exercises every day. ? Doing exercises for several weeks. ? Making Kegel exercises a part of your regular exercise routine. This information is not intended to replace advice given to you by your health care provider. Make sure you discuss any questions you have with your health care provider. Document Revised: 08/17/2021 Document Reviewed: 08/17/2021 [employer] Patient Education ? 2022 [employer] [facility] Urology Office/Clinic Noteon 01-08-2023 Urology Office/Clinic Note Chief Complaint F/U to Cysto HPI Staff Last seen in our office 10/30/22 by JOE as a referral due to Microscopic Hematuria, Flank pain & Mixed Incontinence. Pt. was not able to give a urine sample today. S/P Cysto/UD by PRW 11/13/22 *Macrobid 100mg qd q08xwxx given post op Renal US 11/13/22 Dysuria: no Incomplete bladder emptying: no Hematuria: no Frequency: Pt. states she is not sure how often she is urinating. Urgency: no Nocturia: 2-3x's Stream: good stream Post void dripping: no Wearing pads/ Depends: no Urge incontinence: no Stress incontinence: no Incontinence without Sensory Awareness: no Abdominal pain: Pt. states occasionally, Pt. states has improved since last visit Flank pain: no History of Present Illness staff HPI reviewed and agree. Review of Systems PHQ Score Initial Depression Screen Score: 0 no fever, chills, malaise, myalgia. no rash/lesions. no chest pain, palpitations, or SOB. no abdominal pain, nausea, vomiting. no unilateral calf swelling, redness, pain Physical Exam Vitals & Measurements HT: 67 in HT: 170 cm WT: 86.5 kg WT: 190.3 lb BMI: 29.93 General: nontoxic, NAD Mouth: moist mucosa Lungs: normal respiratory effort Cardio: regular rate, good distal perfusion Abdomen: nondistended, no suprapubic distention or tenderness, no CVA tenderness Neurologic: Grossly normal Skin: No rashes or suspicious lesions Assessment/Plan 1. Microscopic hematuria (R31.29: Other microscopic hematuria) +Micro UA 02/25/22 (5-10 RBC). no cx done. +Micro UA 05/30/22 (2-5 RBC). NEG C&S 05/30/22 cysto neg for b.t. TISHA neg for suspicious lesions Pt denies having any visible blood in her urine. unable to give sample today 2. Flank pain (R10.9: Unspecified abdominal pain) Renal US 11/13/22 - normal Lt kidney, no hydro, post void residual of 39cc approx 10%, filled bladder demonstrated 394cc. has improved since last encounter. 3. Mixed incontinence (N39.46: Mixed incontinence) S/P Cysto/UD by PRW 11/13/22 *Macrobid 100mg qd w20unac given post op Pt states she is no longer experiencing leaking. urgency and frequency have improved as well. back to baseline. very pleased. 4. Renal cyst (N28.1: Cyst of kidney, acquired) TISHA 11/13/22 - 1.2 cyst on the Rt kidney, no hydro. no additional f/u imaging needed Offered continued scheduled follow up with our clinic vs following up PRN. Pt prefers the latter. Pt to call the office if she encounters any issues prior. Pt acknowledges understanding. Follow-up With When Contact Information AMELIE ESPARZA PA-C, URL [address] [place] [address] Additional Instructions: PRN Patient Education Lamar Phoenix, personally scribed for Amelie Esparza PA-C on 01/08/2023 15:11:32. . Documentation recorded by the scribisis Estrada accurately reflects the services(s) I performed and decisions made by me. Authenticated by Amelie Esparza PA-C on 01/08/2023 15:16:05. Problem List/Past Medical History Ongoing Asthma Epilepsy Flank pain Genital herpes Head ache Microscopic hematuria Mixed incontinence Renal cyst Urinary urgency Historical No qualifying data Procedure/Surgical History Cystourethroscopy with dilation of urethral stricture (11/13/2022), Abdominal hysterectomy (02/15/2022). Medications amoxicillin, BID, Not taking nitrofurantoin macrocrystals-monohy drate 100 mg Cap topiramate, Oral, BID Allergies No Known Allergies Social History Alcohol - Low Risk, 10/30/2022 Tobacco Former smoker, quit more than 30 days ago Tobacco Use:. Cigars, 01/08/2023 Family History Alcoholism: Father. Arthritis: Mother. Cancer: Mother. Diabetes mellitus: Father. Liver disease: Father. Migraine: Mother. Parkinsons disease: Father. Normal [facility] Comment on above: Result Comment: Elec tronically Signed By: AMELIE ESPARZA PA-C\.br\Date and Time Signed: 01/08/23 15:16 EDT\.br\Electronically Co-Signed By: Lamar Estrada\.br\Date and Time Co-Signed: 01/08/23 15:11 EDT Lab Reportson 11-26-2022 Lab Reports [id number] 6#1.00CD:127 [facility] Lab Reports [id number] 8#1.00CD:127 [facility] Lab Reports [id number] 7#1.00CD:127 [facility] Lab Reports [id number] 3#1.00CD:127 [facility] Lab Reports [id number] 9#1.00CD:127 [facility] RAD - Ultrasound Reporton RAD - Ultrasound Report [id number] #1.00CD:127 [facility] Operative Reporton Operative Report [id number] 7#1.00CD:127 [facility] Provider Letteron 11-14-2022 Provider Letter November 14, 2022 [place] [address] [place] [address] : 1980 To Whom It May Concern, Please excuse above patient to be allowed to use the bathroom every 2-3 hours and as needed. Date of request From: 11/13/2022 To: 11/14/2023 May Return to Work On:N/A Restrictions: N/A Comments: Please allow patient to use the bathroom every 2-3 hours as needed daily. She is under my care for urological issues. Sincerely, Constantino Martinez M.D., F.A.C.S. [facility] [address] [place], [place] [address] [facility] RAD - Ultrasound Reporton RAD - Ultrasound Report [id number] #1.00CD:127 [facility] Physician Referralon 023 Physician Referral [id number] #1.00CD:127 [facility] Screenson 11-02-2022 Screens [id number] 8#1.00CD:127 [facility] Pre-Certification Formon Pre-Certification Form [id number] 08#1.00CD:127 [facility] Ambulatory Visit Summaryon 0 10-30-2022 Ambulatory Visit Summary NEEL GARCIA Kimberly :1980 Visit Date:10/30/2022 Ambulatory Visit Instructions Your Diagnosis Flank pain Mixed incontinence Microscopic hematuria Tests Performed US Renal -- Results Pending -- Please visit your patient portal for your results or contact your primary care physician. Your Care Team Attending Physician - AMELIE ESPARZA PA-C Primary Care Physician - Blade Crews DO Referring Physician - Ingrid DE LOS SANTOS MD This Is Your Medications List Contact prescribing physician if questions or concerns amoxicillin topiramate Procedures Performed Abdominal hysterectomy (02/15/2022). Discharge Vitals Heart Rate (Peripheral) 61 Respiratory Rate 16 Blood Pressure 126/84 Height 170 cm Height 67 in Weight 86.5 kg Weight 190.3 lb BMI 29.93 What to do next Scheduled Follow-Up Appointments Saturday 3:00 PM EDT With: AMELIE ESPARZA PA-C Where: [facility] Normal [facility] Consent for Procedure/Surger yon 10-30-2022 Consent for Procedure/Surgery [id number] #1.00CD:127 Normal [facility] HERPES SIMPLEX VIRUS (HSV) C ULTUREon 06-05-2022 HSV Culture/Type Comment Normal [facility] Comment on above: Result Comment: Nega tive No Herpes simplex virus isolated. Performed By: #### I NFLUAB #### [facility] [address] [place] [address] Dr. Cherie Dior CBC AUTO DIFFon 05-30-2022 BASO # 0.1 103/ul Normal 0.0-0.1 [facility] Comment on above: Performed By: #### I NFLUAB #### [facility] [address] [place] [address] Dr. Cherie Dior Basophils/100 WBC (Bld) 1.2 % Normal 0.2-2.0 [facility] Comment on above: Performed By: #### I NFLUAB #### [facility] [address] [address] [address] Cherie Dior EO # 0.1 103/ul Normal 0.0-0.7 [facility] Comment on above: Performed By: #### I NFLUAB #### [facility] [address] [address] [address] Cherie Dior Eosinophils/100 WBC (Bld) 1.9 % Normal 0.9-7.0 [facility] Comment on above: Performed By: #### I NFLUAB #### [facility] [address] [place] [address] Dr. Cherie Dior Erythrocyte distribution width (RBC) [Ratio] 14.9 % Normal 11.0-15.0 [facility] Comment on above: Performed By: #### I NFLUAB #### [facility] [address] [place] [address] Dr. Cherie Dior Hematocrit (Bld) [Volume fraction] 40.7 % Normal 36.0-48.0 [facility] Comment on above: Performed By: #### I NFLUAB #### [facility] [address] [address] [address] Cherie Dior Hemoglobin (Bld) [Mass/Vol] 12.8 g/dL Normal 12.0-16.0 [facility] Comment on above: Performed By: #### I NFLUAB #### [facility] [facility] [address] [place] [address] Dr. Cherie Dior IG # 0.05 10e3/ul Critically high 0.00-0.[address] [facility] Comment on above: Performed By: #### I NFLUAB #### [facility] [address] [place] [address] Dr. Cherie Dior IG % 1.2 % Critically high 0.0-0.5 [facility] Comment on above: Performed By: #### I NFLUAB #### [facility] [address] [place] [address] Dr. Cherie Dior LYMPH # 0.9 103/ul Critically low 1.2-3.8 [facility] Comment on above: Performed By: #### I NFLUAB #### [facility] [address] [place] [address] Dr. Cherie Dior Lymphocytes/100 WBC (Bld) 21.8 % Normal 20.5-60.0 [facility] Comment on above: Performed By: #### I NFLUAB #### [facility] [address] [place] [address] Dr. Cherie Dior MANUAL DIFF REQ NO Normal [facility] Comment on above: Performed By: #### I NFLUAB #### [facility] [address] [place] [address] Dr. Cherie Dior MCH (RBC) [Entitic mass] 27.4 pg Normal 26.7-34.0 [facility] Comment on above: Performed By: #### I NFLUAB #### [facility] [address] [place] [address] Dr. Cherie Dior MCHC (RBC) [Mass/Vol] 31.4 g/dL Normal 29.9-35.2 [facility] Comment on above: Performed By: #### I NFLUAB #### [facility] [address] [place] [address] Dr. Cherie Dior MCV (RBC) [Entitic vol] 87.0 fL Normal 81.0-99.0 [facility] Comment on above: Performed By: #### I NFLUAB #### [facility] [address] [place] [address] Dr. Cherie Dior MONO # 0.7 103/ul Normal 0.3-0.8 [facility] Comment on above: Performed By: #### I NFLUAB #### [facility] [address] [place] [address] Dr. Cherie Dior Monocytes/100 WBC (Bld) 16.6 % Critically high 1.7-12. 0 [facility] Comment on above: Performed By: #### I NFLUAB #### [facility] [address] [place] [address] Dr. Cherie Dior NEUT # 2.5 103/ul Normal 1.4-6.5 [facility] Comment on above: Performed By: #### I NFLUAB #### [facility] [address] [place] [address] Dr. Cherie Dior Neutrophils/100 WBC (Bld) 57.3 % Normal 43.0-75.0 [facility] Comment on above: Performed By: #### I NFLUAB #### [facility] [address] [place] [address] Dr. Cherie Dior Platelet mean volume (Bld) [Entitic vol] 10.2 fL Normal 9.5-13.5 [facility] Comment on above: Performed By: #### I NFLUAB #### [facility] [address] [place] [address] Dr. Cherie Dior PLT 278 103/ul Normal 150-450 [facility] Comment on above: Performed By: #### I NFLUAB #### [facility] [address] [place] [address] Dr. Cherie Dior RBC 4.68 106/ul Normal 4.20-5.40 [facility] Comment on above: Performed By: #### I NFLUAB #### [facility] [address] [place] [address] Dr. Cherie Dior WBC 4.3 103/ul Normal 4.0-11.0 [facility] Comment on above: Performed By: #### I NFLUAB #### [facility] [address] [place] [address] Dr. Cherie Dior CULTURE URINEon 05-30-2022 CULTURE URINE Culture Observations: NO GROWTH. Normal The [facility] Comment on above: Performed By: #### I NFLUAB #### [facility] [address] [place] [address] Dr. Cherie Dior UA (CLEAN/CATCH) DRIVER ENGINEER/MICRO I F IND.on 05-30-2022 Bilirubin Ql (U) Negative Normal NEGATIVE [facility] Comment on above: Performed By: #### B STEREO COMPILER, CMADM, CMP #### [facility] [address] [place] [address] Dr. Cherie Dior Clarity (U) CLEAR Normal CLEAR The [facility] Comment on above: Performed By: #### B STEREO COMPILER, CMADM, CMP #### [facility] [address] [place] [address] Dr. Cherie Dior Color (U) LT. YELLOW Normal YELLOW The [facility] Comment on above: Performed By: #### B STEREO COMPILER, CMADM, CMP #### [facility] [address] [place] [address] Dr. Cherie Dior Glucose Ql (U) Negative Normal NEGATIVE The [facility] Comment on above: Performed By: #### B STEREO COMPILER, CMADM, CMP #### [facility] [address] [place] [address] Dr. Cherie Dior Hemoglobin Ql (U) LARGE Abnormal NEGATIVE The [facility] Comment on above: Performed By: #### B STEREO COMPILER, CMADM, CMP #### [facility] [address] [place] [address] Dr. Cherie Dior Ketones Ql (U) TRACE Abnormal NEGATIVE The [facility] Comment on above: Performed By: #### B STEREO COMPILER, CMADM, CMP #### [facility] [address] [address] [address] Cherie Dior LEUKOCYTES MODERATE Abnormal NEGATIVE The [facility] Comment on above: Performed By: #### B STEREO COMPILER, CMADM, CMP #### [facility] [address] [address] [address] Cherie Dior Nitrite Ql (U) Negative Normal NEGATIVE The [facility] Comment on above: Performed By: #### B STEREO COMPILER, CMADM, CMP #### [facility] [address] [address] [address] Cherie Dior pH (U) 6.0 [pH] Normal 5-9 [facility] Comment on above: Performed By: #### B STEREO COMPILER, CMADM, CMP #### [facility] [address] [place] [address] Dr. Cherie Dior SPEC GRAVITY 1.020 Normal 1.005-<=1.025 The [facility] Comment on above: Performed By: #### B STEREO COMPILER, CMADM, CMP #### [facility] [address] [place] [address] Dr. Cherie Dior UA PROTEIN 30 mg/dl Abnormal NEGATIVE/ TRACE The [facility] Comment on above: Performed By: #### B STEREO COMPILER, CMADM, CMP #### [facility] [address] [place] [address] Dr. Cherie Dior UR MICRO IND INDICATED Normal The [facility] Comment on above: Performed By: #### B STEREO COMPILER, CMADM, CMP #### [facility] [address] [place] [address] Dr. Cherie Diro Urobilinogen Qn (U) 0.2 {Del'U}/dL Normal 0.2 - 1. 0 [facility] Comment on above: Performed By: #### B STEREO COMPILER, CMADM, CMP #### [facility] [address] [place] [address] Dr. Cherie Dior URINE MICROSCOPIC ONLYon BACTERIA SMALL Abnormal NONE SEEN The [facility] Comment on above: Performed By: #### B STEREO COMPILER, CMADM, CMP #### [facility] [address] [place] [address] Dr. Cherie Dior Bacteria identified Cx Nom (U) INDICATED Normal The [facility] Comment on above: Performed By: #### B STEREO COMPILER, CMADM, CMP #### [facility] [address] [place] [address] Dr. Cherie Dior CAST NONE SEEN Normal NONE SEEN The [facility] Comment on above: Performed By: #### B STEREO COMPILER, CMADM, CMP #### [facility] [address] [place] [address] Dr. Cherie Dior Crystals LM Nom (Urine sed) NONE SEEN Normal NONE SEEN The [facility] Comment on above: Performed By: #### B STEREO COMPILER, CMADM, CMP #### [facility] [address] [place] [address] Dr. Cherie Dior Epithelial cells LM Ql (Urine sed) MODERATE Abnormal NONE SEEN /RARE The [facility] Comment on above: Performed By: #### B STEREO COMPILER, CMADM, CMP #### [facility] [address] [place] [address] Dr. Cherie Dior MUCOUS TRACE Abnormal NONE SEEN The [facility] Comment on above: Performed By: #### B STEREO COMPILER, CMADM, CMP #### [facility] [address] [place] [address] Dr. Cherie Dior RBC 2-5 Abnormal 0-2 [facility] Comment on above: Performed By: #### B STEREO COMPILER, CMADM, CMP #### [facility] [address] [place] [address] Dr. Cherie Dior WBC 2-5 Abnormal NONE SEEN The [facility] Comment on above: Performed By: #### B STEREO COMPILER, CMADM, CMP #### [facility] [address] [place] [address] Dr. Cherie Dior Covid-19 PCR ([facility])on SARS-CoV-2 (COVID-19) RNA JULEE+probe Ql (Unsp spec) Not detected Normal NOT DETECTED The [facility] Comment on above: Result Comment: When diagnostic testing is negative, the possibility of a false negative should be considered in the context of a patient's recent exposures and the presence of clinical signs and symptoms consistent with SARS-CoV-2. This test is not yet approved or cleared by the [place] FDA. When there are no FDA-approved or cleared tests available, and other criteria are met, FDA can make tests available under an emergency access mechanism called an Emergency Use Authorization (EUA). The EUA for this test is supported by the [place] of Health and Human Service's declaration that circumstances exist to justify the emergency use of in vitro diagnostics for the detection and/or diagnosis of the virus that causes COVID-19. This EUA will remain in effect for the duration of the COVID-19 declaration justifying emergency of IVDs, unless it is terminated or revoked by the FDA (after which the test may no longer be used). Performed By: #### I NFLUAB #### [facility] [address] [place] [address] Dr. Cherie Dior GROUP A STREP CULTUREon S. pyogenes Ag Ql (Unsp spec) Culture Observations: NEGATIVE FOR GROUP A STREPTOCOCCUS. Normal The [facility] Comment on above: Performed By: #### G RASTCX, SSCRN #### [facility] [address] [place] [address] Dr. Cherie Dior INFLUENZA A AND B AGon 05-27 INFLUANEGH SEE BELOW Normal The [facility] Comment on above: Result Comment: Nega tive for Flu A protein angiten. Infection due to Flu A cannot be ruled out. Flu A angiten in the sample may be below the detection limit of the test. Performed By: #### I NFLUAB #### [facility] [address] [place] [address] Dr. Cherie Dior INFLUBNEGH SEE BELOW Normal [facility] Comment on above: Result Comment: Nega tive for Flu B protein antigen. Infection due to Flu B cannot be ruled out. Flu B antigen in the sample may be below the detection limit of the test. Performed By: #### I NFLUAB #### [facility] [address] [place] [address] Dr. Cherie Dior INFLUENZA A AG Negative Normal NEGATIVE SEE COMMENT The [facility] Comment on above: Performed By: #### I NFLUAB #### [facility] [address] [place] [address] Dr. Cherie Dior INFLUENZA B AG Negative Normal NEGATIVE SEE COMMENT [facility] Comment on above: Performed By: #### I NFLUAB #### [facility] [address] [place] [address] Dr. Cherie Dior STREPT SCREENon 05-27-2022 STREP SCREEN A Negative Normal NEGATIVE [facility] Comment on above: Performed By: #### G RASTCX, SSCRN #### [facility] [address] [place] [address] Dr. Cherie Dior US TOMAS DOP LEG LTon 02-28-20 22 US TMOAS DOP LEG LT EXAMINATION: US TOMAS DOP LEG LT HISTORY: At risk of deep vein thrombosis COMPARISON: No relevant comparison available. TECHNIQUE: Grayscale, color and Doppler ultrasound FINDINGS: Region: Left leg Thrombus: None Flow: Normal Compressibility: Normal Augmentation: Normal IMPRESSION: No deep or superficial vein thrombus in the left leg *Exam performed in accordance with [facility] practice guidelines- Peripheral venous ultrasound, July 16, 2009. Electronically authenticated by: BRYAN JONES Date: 2022-02-27 06:57 Normal The [facility] BNPon 02-25-2022 Natriuretic peptide B (Bld) [Mass/Vol] 36.0 pg/mL Normal <=450.0 [facility] Comment on above: Performed By: #### B STEREO COMPILER, CMADM, CMP #### [facility] [address] [place] [address] Dr. Cherie Dior CARDIAC ALEX ADMITon 022 CK [Catalytic activity/Vol] 150 U/L Normal 26-192 [facility] Comment on above: Performed By: #### B STEREO COMPILER, CMADM, CMP #### [facility] [address] [place] [address] Dr. Cherie Dior CK.MB [Mass/Vol] 0.43 ng/mL Normal <=3.60 [facility] Comment on above: Performed By: #### B STEREO COMPILER, CMADM, CMP #### [facility] [address] [place] [address] Dr. Cherie Dior HSTROP 4.7 pg/mL Normal 4.0-51.3 [facility] Comment on above: Result Comment: CUT- OFF POINTS HAVE BEEN ESTABLISHED BASED ON THE FOURTH UNIVERSAL DEFINITIONS OF MYOCARDIAL INFARCTION. THE UPPER REFERENCE LIMIT (URL) OF TROPONIN, DEFINED THE 99TH PERCENTILE OF cTnI DISTRIBUTION IN A REFERENCE POPULATION, HAS BEEN CONFIRMED THE DECISION THRESHOLD FOR TN DIAGNOSIS. Performed By: #### B STEREO COMPILER, CMADM, CMP #### [facility] [address] [place] [address] Dr. Cherie Dior FRANCISCO 32 ng/mL Normal 9-82 [facility] Comment on above: Performed By: #### B STEREO COMPILER, CMADM, CMP #### [facility] [address] [place] [address] Dr. Cherie Dior CBC AUTO DIFFon 02-25-2022 BASO # 0.0 103/ul Normal 0.0-0.1 [facility] Comment on above: Performed By: #### B STEREO COMPILER, CMADM, CMP #### [facility] [address] [place] [address] Dr. Cherie Dior Basophils/100 WBC (Bld) 0.4 % Normal 0.2-2.0 [facility] Comment on above: Performed By: #### B STEREO COMPILER, CMADM, CMP #### [facility] [address] [place] [address] Dr. Cherie Dior EO # 0.2 103/ul Normal 0.0-0.7 [facility] Comment on above: Performed By: #### B STEREO COMPILER, CMADM, CMP #### [facility] [address] [place] [address] Dr. Cherie Dior Eosinophils/100 WBC (Bld) 1.8 % Normal 0.9-7.0 [facility] Comment on above: Performed By: #### B STEREO COMPILER, CMADM, CMP #### [facility] [address] [place] [address] Dr. Cherie Dior Erythrocyte distribution width (RBC) [Ratio] 12.6 % Normal 11.0-15.0 [facility] Comment on above: Performed By: #### B STEREO COMPILER, CMADM, CMP #### [facility] [address] [address] [address] Cherie Dior Hematocrit (Bld) [Volume fraction] 32.9 % Critically low 36.0-48.0 [facility] Comment on above: Performed By: #### B STEREO COMPILER, CMADM, CMP #### [facility] [address] [address] [address] Cherie Dior Hemoglobin (Bld) [Mass/Vol] 10.5 g/dL Critically low 12.0-16.0 [facility] Comment on above: Performed By: #### B STEREO COMPILER, CMADM, CMP #### [facility] [address] [place] [address] Dr. Cherie Dior IG # 0.12 10e3/ul Critically high 0.00-0.[address] [facility] Comment on above: Performed By: #### B STEREO COMPILER, CMADM, CMP #### [facility] [address] [place] [address] Dr. Cherie Dior IG % 1.4 % Critically high 0.0-0.5 [facility] Comment on above: Performed By: #### B STEREO COMPILER, CMADM, CMP #### [facility] [address] [place] [address] Dr. Cherie Dior LYMPH # 1.7 103/ul Normal 1.2-3.8 [facility] Comment on above: Performed By: #### B STEREO COMPILER, CMADM, CMP #### [facility] [address] [place] [address] Dr. Cherie Dior Lymphocytes/100 WBC (Bld) 20.1 % Critically low 20.5-60.0 [facility] Comment on above: Performed By: #### B STEREO COMPILER, CMADM, CMP #### [facility] [address] [place] [address] Dr. Cherie Dior MANUAL DIFF REQ NO Normal [facility] Comment on above: Performed By: #### B STEREO COMPILER, CMADM, CMP #### [facility] [address] [place] [address] Dr. Cherie Dior MCH (RBC) [Entitic mass] 28.8 pg Normal 26.7-34.0 [facility] Comment on above: Performed By: #### B STEREO COMPILER, CMADM, CMP #### [facility] [address] [place] [address] Dr. Cherie Dior MCHC (RBC) [Mass/Vol] 31.9 g/dL Normal 29.9-35.2 [facility] Comment on above: Performed By: #### B STEREO COMPILER, CMADM, CMP #### [facility] [address] [place] [address] Dr. Cherie Dior MCV (RBC) [Entitic vol] 90.4 fL Normal 81.0-99.0 [facility] Comment on above: Performed By: #### B STEREO COMPILER, CMADM, CMP #### [facility] [address] [place] [address] Dr. Cherie Dior MONO # 0.9 103/ul Critically high 0.3-0.8 [facility] Comment on above: Performed By: #### B STEREO COMPILER, CMADM, CMP #### [facility] [address] [place] [address] Dr. Cherie Dior Monocytes/100 WBC (Bld) 10.4 % Normal 1.7-12.0 [facility] Comment on above: Performed By: #### B STEREO COMPILER, CMADM, CMP #### [facility] [address] [place] [address] Dr. Cherie Dior NEUT # 5.6 103/ul Normal 1.4-6.5 [facility] Comment on above: Performed By: #### B STEREO COMPILER, CMADM, CMP #### [facility] [address] [place] [address] Dr. Cherie Dior Neutrophils/100 WBC (Bld) 65.9 % Normal 43.0-75.0 [facility] Comment on above: Performed By: #### B STEREO COMPILER, CMADM, CMP #### [facility] [address] [place] [address] Dr. Cherie Dior Platelet mean volume (Bld) [Entitic vol] 9.0 fL Critically low 9.5-13.5 [facility] Comment on above: Performed By: #### B STEREO COMPILER, CMADM, CMP #### [facility] [address] [place], [place] [address] Dr. Cherie Dior PLT 381 103/ul Normal 150-450 [facility] Comment on above: Performed By: #### B STEREO COMPILER, CMADM, CMP #### [facility] [address] [place], [place] [address] Dr. Cherie Dior RBC 3.64 106/ul Critically low 4.20-5.40 [facility] Comment on above: Performed By: #### B STEREO COMPILER, CMADM, CMP #### [facility] [address] [place], [place] [address] Dr. Cherie Dior WBC 8.4 103/ul Normal 4.0-11.0 [facility] Comment on above: Performed By: #### B STEREO COMPILER, KAIDM, CMP #### [facility] [address] [place], [place] [address] Dr. Cherie Dior CTA CHEST WO W CONon 022 CTA CHEST WO W CON CTA CHEST WITH IV CONTRAST CTA CHEST WO W CON, DATE: 02/25/2022 3:46 PM EST HISTORY: SHORTNESS OF BREATH in a 41-year-old female is postop from a hysterectomy and week ago. COMPARISON: 04/21/2020 CTA Chest TECHNIQUE: Multiple axial images are taken from the level of the thyroid down through the upper abdomen with and without the use of IV contrast. Images are then reconstructed in the sagittal and coronal planes. This exam was performed according to our departmental dose-optimization program which includes use of Automated Exposure Control, adjustment of the mA and/or kV according to patient size and/or use of iterative reconstruction technique. Postprocessing was performed for CTA with the following as per hospital protocol: Maximum intensity projection (MIPs) Contrast Used: 100 ml of Omnipaque 350 FINDINGS: Lungs: Normal. Pleura: Normal Thyroid: Normal Mediastinum: Aorta: Ascending aorta measures 27 mm. Pulmonary artery: Normal. No pulmonary embolus, allowing for bolus timing. Heart: Normal. Trachea/Bronchi: Well aerated. No intraluminal masses. Esophagus: Decompressed which limits evaluation. Normal for the lack of distention. Lymph Nodes: Normal. Chest wall: Normal. Axilla: Normal. Osseous Structures: Normal for patient's age. Subdiaphragm: The subdiaphragmatic abdominal organs included in the [id number] do not demonstrate any acute abnormality allowing for some fatty infiltration of the liver.. IMPRESSION: No CT evidence for acute pulmonary embolus. Electronically authenticated by: WICHO RAINEY Date: 2022-02-25 19:04 Normal [facility] D-DIMERon 02-25-2022 D-DIMER 6.44 mg/L FEU Critically high <=0.59 [facility] Comment on above: Performed By: #### B STEREO COMPILERMEAGHAN, CMP #### [facility] [address] [place] [address] Dr. Cherie Dior D-DIMER COMMENTS SEE BELOW Normal [facility] Comment on above: Result Comment: Incr eases in D-Dimer concentration observed with thromboembolic events can be variable due to localization, size, and age of the thrombus. Therefore, a thromboembolic event cannot be diagnosed with certainty on the basis of the reference range. D-Dimers may also be elevated for a variety of disorders including: advanced age, , coronary disease, cancer, liver disease, infection, inflammation, hematoma, DIC, trauma, post-surgery, diabetes, thrombolytic or anticoagulant therapy, stress, and generalized hospitalization. Performed By: #### B MEAGHAN OSORIO, CMP #### [facility] [address] [place] [address] Dr. Cherie Dior ER URINE PROFILEon 2 Bilirubin Ql (U) Negative Normal NEGATIVE [facility] Comment on above: Performed By: #### B MEAGHAN OSORIO, CMP #### [facility] [address] [place] [address] Dr. Cherie Dior Clarity (U) CLEAR Normal CLEAR [facility] Comment on above: Performed By: #### B MEAGHAN OSORIO, CMP #### [facility] [address] [place] [address] Dr. Cherie Dior Color (U) LT. YELLOW Normal YELLOW [facility] Comment on above: Performed By: #### B MEAGHAN OSORIO, CMP #### [facility] [address] [place] [address] Dr. Cherie Dior ERUAHD A micrscopic examination will be performed if indicated. Normal [facility] Comment on above: Performed By: #### B STEREO COMPILER, CMADM, CMP #### [facility] [address] [address] [address] Cherie Dior Glucose Ql (U) Negative Normal NEGATIVE [facility] Comment on above: Performed By: #### B STEREO COMPILER, CMADM, CMP #### [facility] [address] [address] [address] Cherie Dior Hemoglobin Ql (U) SMALL Abnormal NEGATIVE [facility] Comment on above: Performed By: #### B STEREO COMPILER, CMADM, CMP #### [facility] [address] [address] [address] Cherie Dior Ketones Ql (U) Negative Normal NEGATIVE [facility] Comment on above: Performed By: #### B STEREO COMPILER, CMADM, CMP #### [facility] [address] [address] [address] Cherie Dior LEUKOCYTES Negative Normal NEGATIVE [facility] Comment on above: Performed By: #### B STEREO COMPILER, CMADM, CMP #### [facility] [address] [address] [address] Cherie Dior Nitrite Ql (U) Negative Normal NEGATIVE [facility] Comment on above: Performed By: #### B STEREO COMPILER, CMADM, CMP #### [facility] [address] [address] [address] Cherie Dior pH (U) 6.0 [pH] Normal 5-9 [facility] Comment on above: Performed By: #### B STEREO COMPILER, CMADM, CMP #### [facility] [address] [address] [address] Cherie Dior SPEC GRAVITY 1.020 Normal 1.005-<=1.025 [facility] Comment on above: Performed By: #### B STEREO COMPILER, CMADM, CMP #### [facility] [address] [address] [address] Cherie Dior UA PROTEIN Negative Normal NEGATIVE/ TRACE [facility] Comment on above: Performed By: #### B STEREO COMPILER, CMADM, CMP #### [facility] [address] [address] [address] Cherie Dior UR MICRO IND INDICATED Normal [facility] Comment on above: Performed By: #### B STEREO COMPILER, CMADM, CMP #### [facility] [address] [address] [address] Cherie Dior Urobilinogen Qn (U) 0.2 {Del'U}/dL Normal 0.2 - 1. 0 [facility] Comment on above: Performed By: #### B STEREO COMPILER, CMADM, CMP #### [facility] [address] [address] [address] Cherie Dior PROF 14(COMP METB)on 022 Albumin [Mass/Vol] 3.8 g/dL Normal 3.4-5.0 [facility] Comment on above: Performed By: #### B STEREO COMPILER, CMADM, CMP #### [facility] [address] [address] [address] Cherie Dior Albumin/Globulin [Mass ratio] 0.8 {ratio} Normal [facility] Comment on above: Performed By: #### B STEREO COMPILER, CMADM, CMP #### [facility] [address] [address] [address] Cherie Dior ALP [Catalytic activity/Vol] 72 U/L Normal 46-116 [facility] Comment on above: Performed By: #### B STEREO COMPILER, CMADM, CMP #### [facility] [address] [address] [address] Cherie Dior ALT [Catalytic activity/Vol] 21 U/L Normal 14-59 [facility] Comment on above: Performed By: #### B STEREO COMPILER, CMADM, CMP #### [facility] [address] [address] [address] Cherie Dior Anion gap [Moles/Vol] 10.5 mmol/L Normal [facility] Comment on above: Performed By: #### B STEREO COMPILER, CMADM, CMP #### [facility] [address] [address] [address] Cherie Dior AST [Catalytic activity/Vol] 13 U/L Critically low 15-37 [facility] Comment on above: Performed By: #### B STEREO COMPILER, CMADM, CMP #### [facility] [address] [address] [address] Cherie Dior Bilirubin [Mass/Vol] 0.5 mg/dL Normal 0.2-1.0 [facility] Comment on above: Performed By: #### B STEREO COMPILER, CMADM, CMP #### [facility] [address] [place] [address] Dr. Cherie Dior Calcium [Mass/Vol] 9.0 mg/dL Normal 8.5-10.1 [facility] Comment on above: Performed By: #### B STEREO COMPILER, CMADM, CMP #### [facility] [address] [place] [address] Dr. Cherie Dior Chloride [Moles/Vol] 104 mmol/L Normal 98-107 [facility] Comment on above: Performed By: #### B STEREO COMPILER, CMADM, CMP #### [facility] [address] [place] [address] Dr. Cherie Dior CO2 [Moles/Vol] 25.3 mmol/L Normal 21.0-32.0 [facility] Comment on above: Performed By: #### B STEREO COMPILER, CMADM, CMP #### [facility] [address] [place] [address] Dr. Cherie Dior Creatinine [Mass/Vol] 0.86 mg/dL Normal 0.55-1.02 [facility] Comment on above: Performed By: #### B STEREO COMPILER, CMADM, CMP #### [facility] [address] [place] [address] Dr. Cherie Dior EGFR-AF BRITISH >60 Normal >=60 [facility] Comment on above: Performed By: #### B STEREO COMPILER, CMADM, CMP #### [facility] [address] [place] [address] Dr. Cherie Dior EGFR-NON AF BRITISH >60 Normal >=60 [facility] Comment on above: Performed By: #### B STEREO COMPILER, CMADM, CMP #### [facility] [address] [place] [address] Dr. Cherie Dior Globulin (S) [Mass/Vol] 4.5 g/dL Normal [facility] Comment on above: Performed By: #### B STEREO COMPILER, CMADM, CMP #### [facility] [address] [address] [address] Cherie Dior Glucose [Mass/Vol] 85 mg/dL Normal 74-106 [facility] Comment on above: Performed By: #### B STEREO COMPILER, CMADM, CMP #### [facility] [address] [place] [address] Dr. Cherie Dior Potassium [Moles/Vol] 3.8 mmol/L Normal 3.5-5.1 [facility] Comment on above: Performed By: #### B STEREO COMPILER, CMADM, CMP #### [facility] [address] [place] [address] Dr. Cherie Dior Protein [Mass/Vol] 8.3 g/dL Critically high 6.4-8.2 [facility] Comment on above: Performed By: #### B STEREO COMPILER, CMADM, CMP #### [facility] [address] [place] [address] Dr. Cherie Dior Sodium [Moles/Vol] 136 mmol/L Normal 136-145 [facility] Comment on above: Performed By: #### B STEREO COMPILER, CMADM, CMP #### [facility] [address] [place] [address] Dr. Cherie Dior Urea nitrogen [Mass/Vol] 14.0 mg/dL Normal 7.0-18.0 [facility] Comment on above: Performed By: #### B STEREO COMPILER, CMADM, CMP #### [facility] [address] [place] [address] Dr. Cherie Dior Urea nitrogen/Creatinine [Mass ratio] 16.3 mg/mg Normal [facility] Comment on above: Performed By: #### B STEREO COMPILER, CMADM, CMP #### [facility] [address] [place] [address] Dr. Cherie Dior PROTIMEon 02-25-2022 INR Coag (PPP) [Relative time] 0.97 {INR} Normal [facility] Comment on above: Performed By: #### B STEREO COMPILER, MEAGHAN, CMP #### [facility] [address] [place] [address] Dr. Cherie Dior INR GUIDELINES SEE BELOW Normal [facility] Comment on above: Result Comment: JORDEN RED INR: 2.0 - 3.0 CONDITIONS NOT LISTED BELOW 2.5 - 3.5 FOR PROSTHETIC HEART VALVE REPLACEMENT 2.5 - 3.5 RECURRENT THROMBOSIS Performed By: #### B STEREO COMPILER, MEAGHAN, CMP #### [facility] [address] [place] [address] Dr. Cherie Dior PT Coag (PPP) [Time] 10.5 s Normal 9.0-11.6 [facility] Comment on above: Performed By: #### B STEREO COMPILER, MEAGHAN, CMP #### [facility] [address] [place] [address] Dr. Cherie Dior PTTon 02-25-2022 aPTT Coag (Bld) [Time] 29.1 s Normal 22.3-36.2 [facility] Comment on above: Performed By: #### B STEREO COMPILER, MEAGHAN, CMP #### [facility] [address] [place] [address] Dr. Cherie Dior URINE MICROSCOPIC ONLYon BACTERIA NONE SEEN Normal NONE SEEN [facility] Comment on above: Performed By: #### B STEREO COMPILER, MEAGHAN, CMP #### [facility] [address] [place] [address] Dr. Cherie Dior Bacteria identified Cx Nom (U) NOT INDICATED Normal [facility] Comment on above: Performed By: #### B STEREO COMPILER, MEAGHAN, CMP #### [facility] [address] [place] [address] Dr. Cherie Dior CAST NONE SEEN Normal NONE SEEN [facility] Comment on above: Performed By: #### B STEREO COMPILER, MEAGHAN, CMP #### [facility] [address] [place] [address] Dr. Cherie Dior Crystals LM Nom (Urine sed) NONE SEEN Normal NONE SEEN [facility] Comment on above: Performed By: #### B STEREO COMPILER, MEAGHAN, CMP #### [facility] [address] [place] [address] Dr. Cherie Dior Epithelial cells LM Ql (Urine sed) FEW Abnormal NONE SEEN /RARE [facility] Comment on above: Performed By: #### B STEREO COMPILER, CMADM, CMP #### [facility] [address] [place] [address] Dr. Cherie Dior MUCOUS TRACE Abnormal NONE SEEN [facility] Comment on above: Performed By: #### B STEREO COMPILER, CMADM, CMP #### [facility] [address] [place] [address] Dr. Cherie Dior RBC 5-10 Abnormal 0-2 [facility] Comment on above: Performed By: #### B STEREO COMPILER, CMADM, CMP #### [facility] [address] [place] [address] Dr. Cherie Dior WBC NONE SEEN Normal NONE SEEN [facility] Comment on above: Performed By: #### B STEREO COMPILER, CMADM, CMP #### [facility] [address] [place] [address] Dr. Cherie Dior Operative Reporton 2 Operative Report [id number] #[id number]:127 Normal [facility] BUNon 02-16-2022 Urea nitrogen [Mass/Vol] 9.0 mg/dL Normal 7.0-18.0 [facility] Comment on above: Performed By: #### B UN, CREA #### [facility] [address] [place] [address] Dr. Cherie Dior CBC AUTO DIFFon 02-16-2022 BASO # 0.0 103/ul Normal 0.0-0.1 [facility] Comment on above: Performed By: #### C BC #### [facility] [address] [place] [address] Dr. Cherie Dior Basophils/100 WBC (Bld) 0.1 % Critically low 0.2-2.0 [facility] Comment on above: Performed By: #### C BC #### [facility] [address] [place] [address] Dr. Cherie Dior EO # 0.0 103/ul Normal 0.0-0.7 [facility] Comment on above: Performed By: #### C BC #### [facility] [address] [place] [address] Dr. Cherie Dior Eosinophils/100 WBC (Bld) 0.0 % Critically low 0.9-7.0 [facility] Comment on above: Performed By: #### C BC #### [facility] [address] [place] [address] Dr. Cherie Dior Erythrocyte distribution width (RBC) [Ratio] 12.6 % Normal 11.0-15.0 [facility] Comment on above: Performed By: #### C BC #### [facility] [address] [place] [address] Dr. Cherie Dior Hematocrit (Bld) [Volume fraction] 31.0 % Critically low 36.0-48.0 [facility] Comment on above: Performed By: #### C BC #### [facility] [address] [place] [address] Dr. Cherie Dior Hemoglobin (Bld) [Mass/Vol] 10.2 g/dL Critically low 12.0-16.0 [facility] Comment on above: Performed By: #### C BC #### [facility] [address] [place] [address] Dr. Cherie Dior IG # 0.04 10e3/ul Critically high 0.00-0.[address] [facility] Comment on above: Performed By: #### C BC #### [facility] [address] [place] [address] Dr. Cherie Dior IG % 0.3 % Normal 0.0-0.5 [facility] Comment on above: Performed By: #### C BC #### [facility] [address] [place] [address] Dr. Cherie Dior LYMPH # 1.1 103/ul Critically low 1.2-3.8 [facility] Comment on above: Performed By: #### C BC #### [facility] [address] [place] [address] Dr. Cherie Dior Lymphocytes/100 WBC (Bld) 9.6 % Critically low 20.5-60.0 [facility] Comment on above: Performed By: #### C BC #### [facility] [address] [place] [address] Dr. Cherie Dior MANUAL DIFF REQ NO Normal [facility] Comment on above: Performed By: #### C BC #### [facility] [address] [place] [address] Dr. Cherie Dior MCH (RBC) [Entitic mass] 29.1 pg Normal 26.7-34.0 [facility] Comment on above: Performed By: #### C BC #### [facility] [address] [place] [address] Dr. Cherie Dior MCHC (RBC) [Mass/Vol] 32.9 g/dL Normal 29.9-35.2 [facility] Comment on above: Performed By: #### C BC #### [facility] [address] [place] [address] Dr. Cherie Dior MCV (RBC) [Entitic vol] 88.3 fL Normal 81.0-99.0 [facility] Comment on above: Performed By: #### C BC #### [facility] [address] [place] [address] Dr. Cherie Dior MONO # 1.2 103/ul Critically high 0.3-0.8 [facility] Comment on above: Performed By: #### C BC #### [facility] [address] [place] [address] Dr. Cherie Dior Monocytes/100 WBC (Bld) 9.9 % Normal 1.7-12.0 [facility] Comment on above: Performed By: #### C BC #### [facility] [address] [place] [address] Dr. Cherie Dior NEUT # 9.5 103/ul Critically high 1.4-6.5 [facility] Comment on above: Performed By: #### C BC #### [facility] [address] [place] [address] Dr. Cherie Dior Neutrophils/100 WBC (Bld) 80.1 % Critically high 43.0-75.0 [facility] Comment on above: Performed By: #### C BC #### [facility] [address] [address] [address] Cherie Dior Platelet mean volume (Bld) [Entitic vol] 9.5 fL Normal 9.5-13.5 [facility] Comment on above: Performed By: #### C BC #### [facility] [address] [place] [address] Dr. Cherie Dior PLT 225 103/ul Normal 150-450 [facility] Comment on above: Performed By: #### C BC #### [facility] [address] [address] [address] Cherie Dior RBC 3.51 106/ul Critically low 4.20-5.40 [facility] Comment on above: Performed By: #### C BC #### [facility] [address] [place] [address] Dr. Cherie Dior WBC 11.8 103/ul Critically high 4.0-11.0 [facility] Comment on above: Performed By: #### C BC #### [facility] [address] [place] [address] Dr. Cherie Dior CREATININEon 02-16-2022 Creatinine [Mass/Vol] 0.98 mg/dL Normal 0.55-1.02 [facility] Comment on above: Performed By: #### B UN, CREA #### [facility] [address] [place] [address] Dr. Cherie Dior EGFR-AF BRITISH >60 Normal >=60 [facility] Comment on above: Performed By: #### B UN, CREA #### [facility] [address] [place] [address] Dr. Cherie Dior EGFR-NON AF BRITISH >60 Normal >=60 [facility] Comment on above: Performed By: #### B UN, CREA #### [facility] [address] [place] [address] Dr. Cherie Dior PREG HCG QUALon 02-15-2022 , QUAL Negative Normal NEGATIVE [facility] Comment on above: Performed By: #### I NFLUAB #### [facility] [address] [place] [address] Dr. Cherie Dior Consent for Procedure/Surger yon 02-14-2022 Consent for Procedure/Surgery [id number] #[id number]:[id number] Normal [facility] CBC AUTO DIFFon 02-12-2022 BASO # 0.0 103/ul Normal 0.0-0.1 [facility] Comment on above: Performed By: #### B STEREO COMPILER, CMADM, CMP #### [facility] [address] [place] [address] Dr. Cherie Dior Basophils/100 WBC (Bld) 0.6 % Normal 0.2-2.0 [facility] Comment on above: Performed By: #### B STEREO COMPILER, CMADM, CMP #### [facility] [address] [place] [address] Dr. Cherie Dior EO # 0.1 103/ul Normal 0.0-0.7 [facility] Comment on above: Performed By: #### B STEREO COMPILER, CMADM, CMP #### [facility] [address] [place] [address] Dr. Cherie Dior Eosinophils/100 WBC (Bld) 4.0 % Normal 0.9-7.0 [facility] Comment on above: Performed By: #### B STEREO COMPILER, CMADM, CMP #### [facility] [address] [place] [address] Dr. Cherie Dior Erythrocyte distribution width (RBC) [Ratio] 12.9 % Normal 11.0-15.0 [facility] Comment on above: Performed By: #### B STEREO COMPILER, CMADM, CMP #### [facility] [address] [place] [address] Dr. Cherie Dior Hematocrit (Bld) [Volume fraction] 38.8 % Normal 36.0-48.0 [facility] Comment on above: Performed By: #### B STEREO COMPILER, CMADM, CMP #### [facility] [address] [place] [address] Dr. Cherie Dior Hemoglobin (Bld) [Mass/Vol] 12.6 g/dL Normal 12.0-16.0 [facility] Comment on above: Performed By: #### B STEREO COMPILER, CMADM, CMP #### [facility] [address] [place] [address] Dr. Cherie Dior IG # 0.00 10e3/ul Normal 0.00-0.03 [facility] Comment on above: Performed By: #### B STEREO COMPILER, CMADM, CMP #### [facility] [address] [place] [address] Dr. Cherie Dior IG % 0.0 % Normal 0.0-0.5 [facility] Comment on above: Performed By: #### B STEREO COMPILER, CMADM, CMP #### [facility] [address] [place] [address] Dr. Cherie Dior LYMPH # 1.3 103/ul Normal 1.2-3.8 [facility] Comment on above: Performed By: #### B STEREO COMPILER, CMADM, CMP #### [facility] [address] [place] [address] Dr. Cherie Dior Lymphocytes/100 WBC (Bld) 36.5 % Normal 20.5-60.0 [facility] Comment on above: Performed By: #### B STEREO COMPILER, CMADM, CMP #### [facility] [address] [place] [address] Dr. Cherie Dior MANUAL DIFF REQ NO Normal [facility] Comment on above: Performed By: #### B STEREO COMPILER, CMADM, CMP #### [facility] [address] [place] [address] Dr. Cherie Dior MCH (RBC) [Entitic mass] 29.4 pg Normal 26.7-34.0 [facility] Comment on above: Performed By: #### B STEREO COMPILER, CMADM, CMP #### [facility] [address] [place] [address] Dr. Cherie Dior MCHC (RBC) [Mass/Vol] 32.5 g/dL Normal 29.9-35.2 [facility] Comment on above: Performed By: #### B STEREO COMPILER, CMADM, CMP #### [facility] [address] [place] [address] Dr. Cherie Dior MCV (RBC) [Entitic vol] 90.7 fL Normal 81.0-99.0 [facility] Comment on above: Performed By: #### B STEREO COMPILER, CMADM, CMP #### [facility] [address] [place] [address] Dr. Cherie Dior MONO # 0.5 103/ul Normal 0.3-0.8 [facility] Comment on above: Performed By: #### B STEREO COMPILER, CMADM, CMP #### [facility] [address] [place] [address] Dr. Cherie Dior Monocytes/100 WBC (Bld) 12.9 % Critically high 1.7-12. 0 [facility] Comment on above: Performed By: #### B STEREO COMPILER, CMADM, CMP #### [facility] [address] [place] [address] Dr. Cherie Dior NEUT # 1.6 103/ul Normal 1.4-6.5 [facility] Comment on above: Performed By: #### B STEREO COMPILER, CMADM, CMP #### [facility] [address] [place] [address] Dr. Cherie Dior Neutrophils/100 WBC (Bld) 46.0 % Normal 43.0-75.0 [facility] Comment on above: Performed By: #### B STEREO COMPILER, CMADM, CMP #### [facility] [address] [place] [address] Dr. Cherie Dior Platelet mean volume (Bld) [Entitic vol] 9.8 fL Normal 9.5-13.5 [facility] Comment on above: Performed By: #### B STEREO COMPILER, CMADM, CMP #### [facility] [address] [place] [address] Dr. Cherie Dior PLT 202 103/ul Normal 150-450 [facility] Comment on above: Performed By: #### B STEREO COMPILER, CMADM, CMP #### [facility] [address] [place] [address] Dr. Cherie Dior RBC 4.28 106/ul Normal 4.20-5.40 [facility] Comment on above: Performed By: #### B STEREO COMPILER, CMADM, CMP #### [facility] [address] [place] [address] Dr. Cherie Dior WBC 3.5 103/ul Critically low 4.0-11.0 [facility] Comment on above: Performed By: #### B STEREO COMPILER, KAIDM, CMP #### [facility] [address] [address] [address] Cherie Dior Covid-19 PCR ([facility])on 01-21 SARS-CoV-2 (COVID-19) RNA JULEE+probe Ql (Unsp spec) Not detected Normal NOT DETECTED [facility] Comment on above: Result Comment: This test is not yet approved or cleared by the [place] FDA. When there are no FDA-approved or cleared tests available, and other criteria are met, FDA can make tests available under an emergency access mechanism called an Emergency Use Authorization (EUA). The EUA for this test is supported by the [employer] of Health and Human Service's (HHS's) declaration that circumstances exist to justify the emergency use of in vitro diagnostics for the detection and/or diagnosis of the virus that causes COVID-19. This EUA will remain in effect (meaning this test can be used) for the duration of the COVID-19 declaration justifying emergency of IVDs, unless it is terminated or revoked by FDA (after which the test may no longer be used). When diagnostic testing is negative, the possibility of a false negative should be considered in the context of a patient's recent exposures and the presence of clinical signs and symptoms consistent with SARS-CoV-2. Performed By: #### B STEREO COMPILER, KAIDM, CMP #### [facility] [address] [place] [address] Dr. Cherie Dior PROF CHEM 8 (BAS METB)on Anion gap [Moles/Vol] 7.5 mmol/L Normal [facility] Comment on above: Performed By: #### B MP #### [facility] [address] [address] [address] Cherie Dior Calcium [Mass/Vol] 8.4 mg/dL Critically low 8.5-10.1 Th e [facility] Comment on above: Performed By: #### B MP #### [facility] [address] [place] [address] Dr. Cherie Dior Chloride [Moles/Vol] 106 mmol/L Normal 98-107 [facility] Comment on above: Performed By: #### B MP #### [facility] [address] [address] [address] Cherie Dior CO2 [Moles/Vol] 28.3 mmol/L Normal 21.0-32.0 [facility] Comment on above: Performed By: #### B MP #### [facility] [address] [place] [address] Dr. Cherie Dior Creatinine [Mass/Vol] 0.81 mg/dL Normal 0.55-1.02 [facility] Comment on above: Performed By: #### B MP #### [facility] [address] [place] [address] Dr. Cherie Dior EGFR-AF BRITISH >60 Normal >=60 [facility] Comment on above: Performed By: #### B MP #### [facility] [address] [place] [address] Dr. Cherie Dior EGFR-NON AF BRITISH >60 Normal >=60 [facility] Comment on above: Performed By: #### B MP #### [facility] [address] [place] [address] Dr. Cherie Dior Glucose [Mass/Vol] 75 mg/dL Normal 74-106 [facility] Comment on above: Performed By: #### B MP #### [facility] [address] [place] [address] Dr. Cherie Dior Potassium [Moles/Vol] 3.8 mmol/L Normal 3.5-5.1 [facility] Comment on above: Performed By: #### B MP #### [facility] [address] [place] [address] Dr. Cherie Dior Sodium [Moles/Vol] 138 mmol/L Normal 136-145 [facility] Comment on above: Performed By: #### B MP #### [facility] [address] [address] [address] Cherie Dior Urea nitrogen [Mass/Vol] 8.0 mg/dL Normal 7.0-18.0 [facility] Comment on above: Performed By: #### B MP #### [facility] [address] [address] [address] Cherie Dior Urea nitrogen/Creatinine [Mass ratio] 9.9 mg/mg Normal [facility] Comment on above: Performed By: #### B MP #### [facility] [address] [address] [address] Cherie Dior PROTIMEon 02-12-2022 INR Coag (PPP) [Relative time] 0.97 {INR} Normal [facility] Comment on above: Performed By: #### B STEREO COMPILERMEAGHAN, CMP #### [facility] [address] [place] [address] Dr. Cherie Dior INR GUIDELINES SEE BELOW Normal [facility] Comment on above: Result Comment: JORDEN RED INR: 2.0 - 3.0 CONDITIONS NOT LISTED BELOW 2.5 - 3.5 FOR PROSTHETIC HEART VALVE REPLACEMENT 2.5 - 3.5 RECURRENT THROMBOSIS Performed By: #### B STEREO COMPILER, MEAGHAN, CMP #### [facility] [address] [place] [address] Dr. Cherie Dior PT Coag (PPP) [Time] 10.5 s Normal 9.0-11.6 [facility] Comment on above: Performed By: #### B STEREO COMPILERMEAGHAN, CMP #### [facility] [address] [place] [address] Dr. Cherie Dior PTTon 02-12-2022 aPTT Coag (Bld) [Time] 25.1 s Normal 22.3-36.2 Th [facility] Comment on above: Performed By: #### B STEREO COMPILERMEAGHAN, CMP #### [facility] [address] [place] [address] Dr. Cherie Dior TYPE AND SCREENon 02-12-2022 TYPE AND SCREEN Negative Normal [facility] Comment on above: Performed By: #### I NFLUAB #### [facility] [address] [place] [address] [address] [address] Cherie Dior Physician Referralon 022 Physician Referral [phone] [id number] Normal [facility] PREG HCG QUALon 01-05-2022 , QUAL Negative Normal NEGATIVE [facility] Comment on above: Performed By: #### B STEREO COMPILER, CMADM, CMP #### [facility] [address] [place], [place] [id number] Dr. Cherie Dior MG MAMM SCREEN 3D ARJUN CADon 01-02-2022 MG MAMM SCREEN 3D ARJUN CAD Patient: NEEL GARCIA Exam Date: 01/02/2022 : 1980 Gender:F Ordering : DR INGRID DE LOS SANTOS . Admission #: [id number] Family : Order #: [id number] CLICK HERE TO VIEW EXAM RADIOLOGY REPORT PROCEDURE: MAMMOGRAM SCREENING 3D BILATERAL CAD COMPARISON: MG MAMM SCREEN ARJUN W CAD, 07/29/2018. INDICATIONS: Screening mammography Calculator Name NCI Breast Cancer Risk Assessment Tool 5 Year Breast Cancer Risk Not Reported. Lifetime Breast Cancer Risk Not Reported. Personal Breast Cancer No Personal Ovarian Cancer No Treatments None Family Cancers None LOCATION: The [facility] BREAST COMPOSITION: Heterogeneously dense,which may obscure small masses. FINDINGS: DIAGNOSTIC CATEGORY 2--BENIGN FINDING. NO CHANGE FROM COMPARISON. Scattered benign-appearing nodules are present. Scattered benign-appearing calcifications are present. Scattered benign-appearing lymph nodes are present. RIGHT BREAST: No significant suspicious finding. LEFT BREAST: No significant suspicious finding. RECOMMENDATIONS: ROUTINE MAMMOGRAM AND CLINICAL EVALUATION IN 12 MONTHS. PLEASE NOTE: A NORMAL MAMMOGRAM DOES NOT EXCLUDE THE POSSIBILITY OF BREAST CANCER. A CLINICALLY SUSPICIOUS PALPABLE LUMP SHOULD BE BIOPSIED. Dictated by: Bryan Jones MD on 01/02/2022 at 11:24 Approved by: Bryan Jones MD on 01/02/2022 at 11:25 Normal [facility] Covid-19 PCR (CVDTBH)on SARS-CoV-2 (COVID-19) RNA JULEE+probe Ql (Unsp spec) Not detected Normal NOT DETECTED [facility] Comment on above: Result Comment: This test is not yet approved or cleared by the [place] FDA. When there are no FDA-approved or cleared tests available, and other criteria are met, FDA can make tests available under an emergency access mechanism called an Emergency Use Authorization (EUA). The EUA for this test is supported by the [employer] Installer of Health and Human Service's (HHS's) declaration that circumstances exist to justify the emergency use of in vitro diagnostics for the detection and/or diagnosis of the virus that causes COVID-19. This EUA will remain in effect (meaning this test can be used) for the duration of the COVID-19 declaration justifying emergency of IVDs, unless it is terminated or revoked by FDA (after which the test may no longer be used). When diagnostic testing is negative, the possibility of a false negative should be considered in the context of a patient's recent exposures and the presence of clinical signs and symptoms consistent with SARS-CoV-2. Performed By: #### I NFLUAB #### [facility] [address] [place] [address] Dr. Cherie Dior US PELVIS AND TRANSVAGon US PELVIS AND TRANSVAG EXAMINATION: US PELVIS AND TRANSVAG HISTORY: Pelvic and perineal pain COMPARISON: Ultrasound pelvis 01/12/2021 TECHNIQUE: Transabdominal and transvaginal sonographic examination. FINDINGS: UTERUS: Slightly prominent in size, contains 2 small heterogeneous masses most likely representing leiomyomas, 1.3 cm and 0.9 cm in diameter. Uterus size: 13.0 x 5.7 x 7.7 cm. ENDOMETRIUM: Mildly thickened, but homogeneous echogenic. Endometrial thickness: 16 mm RIGHT OVARY: Contains a hypoechoic avascular cystic structure 2.4 x 2.3 x 1.9 cm. Duplex Doppler demonstrates normal waveform and flow; resistive index 0.6. Ovary size: 2.7 x 2.3 x 2.6 cm LEFT OVARY: Normal size and appearance. Duplex Doppler demonstrates normal waveform and flow; resistive index 0.5. Ovary size: 2.5 x 2.0 x 1.3 cm CUL-DE-SAC: Unremarkable. No significant free fluid. BLADDER: Unremarkable. OTHER: None. IMPRESSION: 1. Complex right ovarian cyst; follow-up ultrasound evaluation 6 weeks is recommended to document regression. 2. Slightly thickened, but otherwise homogeneous appearing endometrium; correlate with patient's stage in her menstrual cycle. Electronically authenticated by: AUSTIN DORIANENRIQUEPRIMITIVO Date: 2021-12-20 11:02 Normal [facility] PAP ACOG PANEL 2: 30 to 65on 12-19-2021 . . Normal [facility] Comment on above: Result Comment: Perf ormed at: WB Performed By: #### B STEREO COMPILER, CMADM, CMP #### [facility] [address] [address] [address] Cherie Dior Age Gdln ACOG Testing 30- Normal [facility] Comment on above: Performed By: #### B STEREO COMPILER, CMADM, CMP #### [facility] [address] [address] [address] Cherie Dior DIAGNOSIS: Comment Normal [facility] Comment on above: Result Comment: NEGA TIVE FOR INTRAEPITHELIAL LESION OR MALIGNANCY. Performed at: WB Performed By: #### B STEREO COMPILER, CMADM, CMP #### [facility] [address] [address] [address] Cherie Dior HPV Aptima Negative Normal Negative [facility] Comment on above: Result Comment: This nucleic acid amplification test detects fourteen high-risk HPV types (16,18,31,33,35,39,45,51,52,56,58,59,66,68) without differentiation. Performed at: =G Performed By: #### B STEREO COMPILER, CMADM, CMP #### [facility] [address] [address] [address] Cherie Dior Methodology: Comment Normal [facility] Comment on above: Result Comment: This liquid based ThinPrep(R) pap test was screened with the use of an image guided system. Performed at: WB Performed By: #### B STEREO COMPILER, CMADM, CMP #### [facility] [address] [address] [address] Cherie Dior Note: Comment Normal [facility] Comment on above: Result Comment: The Pap smear is a screening test designed to aid in the detection of premalignant and malignant conditions of the uterine cervix. It is not a diagnostic procedure and should not be used as the sole means of detecting cervical cancer. Both false-positive and false-negative reports do occur. . Performed at: WB Performed By: #### B STEREO COMPILER, CMADM, CMP #### [facility] [address] [address] [address] Cherie Dior Performed by: Comment Normal [facility] Comment on above: Result Comment: Griselda Drummond, Precision Filer Hand (ASCP) Performed at: WB Performed By: #### B STEREO COMPILER, CMADM, CMP #### [facility] [address] [address] [address] Cherie Dior Specimen adequacy: Comment Normal [facility] Comment on above: Result Comment: Sati sfactory for evaluation. Endocervical and/or squamous metaplastic cells (endocervical component) are present. Performed at: WB Performed By: #### B STEREO COMPILER, CMADM, CMP #### [facility] [address] [address] [address] Cherie Jurado 11-14-2021 CNPN Telephone (HEMASA) NEEL GARCIA ([id number]) 1980 F Date Time Provider Department 11/14/21 JIAN DE LA CRUZ During your visit today, we recorded the following information about you: Jian De La Cruz RN 11/14/2021 3:15 PM Signed ----- Message from Alina Barros RN sent at 11/13/2021 1:26 PM EDT ----- ----- Message ----- From: Paolo Ward MD Sent: 11/11/2021 6:10 AM EDT To: Alina Barros RN [facility]. Can you please call pt and let her know that the iron profile is normal? No change in the recommendation. Thanks, K Jian De La Cruz RN 11/14/2021 3:15 PM Signed Informed pt of Dr Kunte's message. Pt verbalized understanding and denies further needs at this time. Jian De La Cruz RN Allergies As of Date: 11/14/2021 (No Known Allergies) Date Reviewed: 11/10/2021 Reviewed by: Gavi Calix Ma - Fully Assessed Reason for Visit: Results [95] Prescriptions as of 11/14/2021 - SUMAtriptan (IMITREX) 50 mg tablet - topiramate XR (QUDEXY XR) 50 mg cap(s) Take 50 mg by mouth twice daily. - traZODone (DESYREL) 50 mg tablet TAKE 1 TABLET BY MOUTH EVERYDAY AT BEDTIME - sertraline (ZOLOFT) 100 mg tablet Take 100 mg by mouth. Problem List As Of Date 11/14/2021 Noted Resolved Iron 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] 09/29/2021 Iron deficiency [E61.1] 10/12/2021 Encounter Status:Closed by JIAN DE LA CRUZ on 11/14/21 Normal [facility] CBC W Auto Differential pane l (Bld)on 11-10-2021 Basophils (Bld) [#/Vol] 0.03 10*3/uL Normal <0.11 [facility] Comment on above: Order Comment: Speci men Type: BLOOD SPECIMENOrdering Facility: [facility] Address: [address] [address] Performed By: #### 5 7021-8 ####[facility] LABCLIA [id number] [place] [address] Basophils/100 WBC (Bld) 0.9 % Normal [facility] Comment on above: Order Comment: Speci men Type: BLOOD SPECIMENOrdering Facility: [facility] Address: [address] [address] Performed By: #### 5 7021-8 ####[facility] LABCLIA [id number] [place] [address] Differential cell count method Nom (Bld) Auto Normal [facility] Comment on above: Order Comment: Speci men Type: BLOOD SPECIMENOrdering Facility: [facility] Address: [address] [address] Performed By: #### 5 7021-8 ####[facility]CLIA [id number] [place] [address] Eosinophils (Bld) [#/Vol] 0.14 10*3/uL Normal <0.46 [facility] Comment on above: Order Comment: Speci men Type: BLOOD SPECIMENOrdering Facility: [facility] Address: [address] [place] [address] Performed By: #### 5 7021-8 ####[facility] LABCLIA [id number] [place] [address] Eosinophils/100 WBC (Bld) 4.2 % Normal [facility] Comment on above: Order Comment: Speci men Type: BLOOD SPECIMENOrdering Facility: [facility] Address: [address] [place] [address] Performed By: #### 5 7021-8 ####[facility]CLIA [id number] [place] [address] Erythrocyte distribution width (RBC) [Ratio] 15.4 % High 11.5-15.0 [facility] Comment on above: Order Comment: Speci men Type: BLOOD SPECIMENOrdering Facility: [facility] Address: [address] [place] [address] Performed By: #### 5 7021-8 ####[facility]CLIA [id number] [place] [address] Hematocrit (Bld) [Volume fraction] 38.0 % Normal 36.0-46.0 [facility] Comment on above: Order Comment: Speci men Type: BLOOD SPECIMENOrdering Facility: [facility] Address: [address] [place] [address] Performed By: #### 5 7021-8 ####[facility] LABCLIA [id number] [place] [address] Hemoglobin (Bld) [Mass/Vol] 12.0 g/dL Normal 11.5-15.5 [facility] Comment on above: Order Comment: Speci men Type: BLOOD SPECIMENOrdering Facility: [facility] Address: [address] [place] [address] Performed By: #### 5 7021-8 ####[facility] LABCLIA [id number] [place] [address] IMMATURE GRAN % 0.3 % Normal [facility] Comment on above: Order Comment: Speci men Type: BLOOD SPECIMENOrdering Facility: [facility] Address: [address] [place] [address] Performed By: #### 5 7021-8 ####[facility] LABCLIA [id number] [place] [address] IMMATURE GRAN ABS <0.03 Normal <0.10 [facility] Comment on above: Order Comment: Speci men Type: BLOOD SPECIMENOrdering Facility: [facility] Address: [address] [place] [address] Performed By: #### 5 7021-8 ####[facility] LABCLIA [id number] [place] [address] Lymphocytes (Bld) [#/Vol] 1.26 10*3/uL Normal 1.00-4.00 [facility] Comment on above: Order Comment: Speci men Type: BLOOD SPECIMENOrdering Facility: [facility] Address: [address] [place] [address] Performed By: #### 5 7021-8 ####[facility] LABIA [id number] [place] [address] Lymphocytes/100 WBC (Bld) 38.1 % Normal [facility] Comment on above: Order Comment: Speci men Type: BLOOD SPECIMENOrdering Facility: [facility] Address: [address] [place] [address] Performed By: #### 5 7021-8 ####[facility] LABCLIA [id number] [place] [address] MCH (RBC) [Entitic mass] 27.9 pg Normal 26.0-34.0 [facility] Comment on above: Order Comment: Speci men Type: BLOOD SPECIMENOrdering Facility: [facility] Address: [address] [place] [address] Performed By: #### 5 7021-8 ####[facility]CLIA [id number] [place] [address] MCHC (RBC) [Mass/Vol] 31.6 g/dL Normal 30.5-36.0 [facility] Comment on above: Order Comment: Speci men Type: BLOOD SPECIMENOrdering Facility: [facility] Address: [address] [place] [address] Performed By: #### 5 7021-8 ####[facility]CLIA [id number] [place] [address] MCV (RBC) [Entitic vol] 88.4 fL Normal 80.0-100.0 [facility] Comment on above: Order Comment: Speci men Type: BLOOD SPECIMENOrdering Facility: [facility] Address: [address] [place] [address] Performed By: #### 5 7021-8 ####[facility] LABCLIA [id number] [place] [address] Monocytes (Bld) [#/Vol] 0.43 10*3/uL Normal <0.87 [facility] Comment on above: Order Comment: Speci men Type: BLOOD SPECIMENOrdering Facility: [facility] Address: [address] [place] [address] Performed By: #### 5 7021-8 ####[facility]CLIA [id number] [place] [address] Monocytes/100 WBC (Bld) 13.0 % Normal [facility] Comment on above: Order Comment: Speci men Type: BLOOD SPECIMENOrdering Facility: [facility] Address: [address] [place] [address] Performed By: #### 5 7021-8 ####[facility]CLIA [id number] [place] [address] Neutrophils (Bld) [#/Vol] 1.44 10*3/uL Low 1.45-7.50 [facility] Comment on above: Order Comment: Speci men Type: BLOOD SPECIMENOrdering Facility: [facility] Address: [address] [place] [address] Performed By: #### 5 7021-8 ####[facility] LABCLIA [id number] [place] [address] Neutrophils/100 WBC (Bld) 43.5 % Normal [facility] Comment on above: Order Comment: Speci men Type: BLOOD SPECIMENOrdering Facility: [facility] Address: [address] [place] [address] Performed By: #### 5 7021-8 ####[facility] LABCLIA [id number] [place] [address] Nucleated RBC (Bld) [#/Vol] 10*3/uL Normal <0.01 [facility] Comment on above: Order Comment: Speci men Type: BLOOD SPECIMENOrdering Facility: [facility] Address: [address] [place], [place] [id number] Performed By: #### 5 7021-8 ####[facility] LABCLIA [id number] [place] [address] Nucleated RBC/100 WBC (Bld) [Ratio] 0.0 /100 WBC Normal [facility] Comment on above: Order Comment: Speci men Type: BLOOD SPECIMENOrdering Facility: [facility] Address: [address] [place], [place] [id number] Performed By: #### 5 7021-8 ####[facility] LABCLIA [id number] [place] [address] Platelet mean volume (Bld) [Entitic vol] 9.5 fL Normal 9.0-12.7 [facility] Comment on above: Order Comment: Speci men Type: BLOOD SPECIMENOrdering Facility: [facility] Address: [address] [place] [address] Performed By: #### 5 7021-8 ####[facility] LABIA [id number] [place] [address] Platelets (Bld) [#/Vol] 239 10*3/uL Normal 150-400 [facility] Comment on above: Order Comment: Speci men Type: BLOOD SPECIMENOrdering Facility: [facility] Address: [address] [place] [address] Performed By: #### 5 7021-8 ####[facility] [id number] [place] [address] RBC (Bld) [#/Vol] 4.30 10*6/uL Normal 3.90-5.20 [facility] Comment on above: Order Comment: Speci men Type: BLOOD SPECIMENOrdering Facility: [facility] Address: [address] [place] [address] Performed By: #### 5 7021-8 ####[facility] LABIA [id number] [place] [address] WBC (Bld) [#/Vol] 3.31 10*3/uL Low 3.70-11.00 [facility] Comment on above: Order Comment: Speci men Type: BLOOD SPECIMENOrdering Facility: [facility] Address: [address] [place] [address] Performed By: #### 5 7021-8 ####[facility] LABIA [id number] [place] [address] CNOVSPon 11-10-2021 CNOVSP Visit (SP) Office (HEMASA) NEEL GARCIA ([id number]) 1980 F Date Time Provider Department 11/10/21 10:30 AM PAOLO WARD During your visit today, we recorded the following information about you: Temperature Pulse Respiration Blood pressure 97.8 degrees 59/minute 16/minute 112/68 Weight Height 84.7 kg 1.676 m Paolo Ward MD 11/10/2021 11:27 AM Signed HEMATOLOGY FOLLOW UP Elements in this clinic note that are critical to medical decision making have been carefully reviewed and included from my prior clinic note dated: September 28, 2021 November 10, 2021 PCP and other physicians involved in patient's care: Blade Crews Sr (PCP) DIAGNOSES: Iron deficiency without anemia HEMATOLOGICAL HISTORY: ? Presented with bruising since November 2020. Initially, it was on the left lower extremity and inner thigh. No history of trauma. This progressed to the outside part of the leg, chest and arms. She started taking topiramate since September 2020. No previous use of aspirin but admits to use of naproxen for abdominal pain. She could not recollect the last dose. She reports long standing bleeding gums since childhood. She reports bright red blood per rectum and a colonoscopy in 2019 that was normal. No current GI, bleed, epistaxis, join bleeds or hemoptysis. No prior transfusions. Menses are heavy but last for 2-3 days. ? On my initial evaluation in May 2021, PT, PTT, TT, and fibrinogen were normal. CBC was within normal hemoglobin and platelet count. Iron studies showed a ferritin of 14.6 confirming iron deficiency without anemia. Recommendation was a GI referral and oral iron trial. ? May 31, 2021 started oral iron with resulting improvement in energy levels and resolution of easy bruising ? September 20, 2021 EGD and colonoscopy (Dr. Quiros) notable for internal hemorrhoids but otherwise normal ? October 06, 2021 Monoferric 1 g (decrease in ferritin levels despite adequate oral iron) INTERVAL HISTORY: Neel comes back for a follow up. Since last visit, she has noticed an improvement in her energy levels. She still feels fatigued but is overall better. No new symptoms. She continues to take ibuprofen as needed. Skin bruising has resolved. ROS is negative except that mentioned in HPI PAST MEDICAL SURGICAL FAMILY AND SOCIAL HISTORY: She has a history of ?Epilepsy, since childhood; normal MRI brain in October 2019; follows with neurology ?Iron deficiency, GI work up pending ?Asthma, controlled ??Irritable bowel syndrome Previous surgeries include urethral stricture dilatation and colonoscopy. Family history of bleeding problem in her mother but she cannot provide more details. She was born in [place] and has lived in [place] in the past. She reports occasional smoking - cigars that are dipped in cognac - last use a month back. Occasional alcohol use. No other substance abuse reported. She lives with her with 5 children. She is not working now but used to work at [employer] (was laid off during ). MEDICATIONS AND ALLERGIES: Reviewed PHYSICAL EXAM BP 112/68 Pulse (!) 59 Temp 36.6 ?C (97.8 ?F) (Temporal) Resp 16 Ht 167.6 cm (5' 5.98 ) Wt 84.7 kg (186 lb 12.8 oz) LMP 09/20/2021 SpO2 99% BMI 30.16 kg/m? Head atraumatic, no pallor, icterus or lymphadenopathy, lungs clear to auscultation, heart sounds regular, abdomen soft without distension or organomegaly, neuro grossly non-focal, skin without rash or bruising, extremities without swelling LABORATORY, IMAGING AND PATHOLOGY CBC reviewed Iron profile in process ASSESSMENT AND RECOMMENDATIONS 41 female with easy bruising and iron deficiency Her bruising is mild, intermittent, and self resolving. The bruising is likely related to prior use of naproxen and current use of ibuprofen. Basic work-up including PT, PTT, fibrinogen, CBC, CMP and inflammatory markers was normal. Platelet function screen was not done but the yield for doing that was deemed low. No additional testing needed. Reiterated need to stop NSAIDs and take acetaminophen instead. Initial labs also demonstrated iron deficiency without anemia. Potential etiology could be ulcers secondary to use of NSAIDs. Scopes were negative. Ferritin failed to improved despite oral iron. She then received a dose of monoferric last month. Iron profile is in process but symptoms have improved. If iron profile is better, she will follow up with us in 6-8 weeks for repeat labs. Paolo Ward MD I spent a total of 25 minutes on the date of the service which included preparing to see the patient, [id number] patient care, completing clinical documentation, obtaining and/or reviewing separately obtained history, performing a medically appropriate examination, counseling and educating the patient/family/careg iver, ordering medications, tests, or pro (more content not included)... Normal [facility] Comprehensive metabolic 2000 panelon 11-10-2021 Albumin [Mass/Vol] 4.1 g/dL Normal 3.9-4.9 [facility] Comment on above: Order Comment: Speci men Type: BLOOD SPECIMENOrdering Facility: [facility] Address: [address] [place] [address] Performed By: #### 2 4323-8 ####[facility] LABCLIA [id number] [place] [address] ALP [Catalytic activity/Vol] 64 U/L Normal 34-123 [facility] Comment on above: Order Comment: Speci men Type: BLOOD SPECIMENOrdering Facility: [facility] Address: [address] [place] [address] Performed By: #### 2 4323-8 ####[facility] LABCLIA [id number] [place] [address] ALT [Catalytic activity/Vol] 26 U/L Normal 7-38 [facility] Comment on above: Order Comment: Speci men Type: BLOOD SPECIMENOrdering Facility: [facility] Address: [address] [place] [address] Performed By: #### 2 4323-8 ####[facility] LABCLIA [id number] [place] [address] Anion gap [Moles/Vol] 8 mmol/L Low 9-18 [facility] Comment on above: Order Comment: Speci men Type: BLOOD SPECIMENOrdering Facility: [facility] Address: [address] [place] [address] Performed By: #### 2 4323-8 ####[facility] LABCLIA [id number] [place] [address] AST [Catalytic activity/Vol] 22 U/L Normal 13-35 [facility] Comment on above: Order Comment: Speci men Type: BLOOD SPECIMENOrdering Facility: [facility] Address: [address] [place] [address] Performed By: #### 2 4323-8 ####[facility] LABCLIA [id number] [place] [address] Bilirubin [Mass/Vol] 0.6 mg/dL Normal 0.2-1.3 [facility] Comment on above: Order Comment: Speci men Type: BLOOD SPECIMENOrdering Facility: [facility] Address: [address] [place] [address] Performed By: #### 2 4323-8 ####[facility] LABCLIA [id number] [place] [address] Calcium [Mass/Vol] 9.3 mg/dL Normal 8.5-10.2 [facility] Comment on above: Order Comment: Speci men Type: BLOOD SPECIMENOrdering Facility: [facility] Address: [address] [place] [address] Performed By: #### 2 4323-8 ####[facility] LABCLIA [id number] [place] [address] Chloride [Moles/Vol] 107 mmol/L High 97-105 [facility] Comment on above: Order Comment: Speci men Type: BLOOD SPECIMENOrdering Facility: [facility] Address: [address] [place] [address] Performed By: #### 2 4323-8 ####[facility] LABCLIA [id number] [place] [address] CO2 [Moles/Vol] 27 mmol/L Normal 22-30 [facility] Comment on above: Order Comment: Speci men Type: BLOOD SPECIMENOrdering Facility: [facility] Address: [address] [address] Performed By: #### 2 4323-8 ####[facility] LABCLIA [id number] [place] [address] Creatinine [Mass/Vol] 0.91 mg/dL Normal 0.58-0.96 [facility] Comment on above: Order Comment: Speci men Type: BLOOD SPECIMENOrdering Facility: [facility] Address: [address] [place] [address] Performed By: #### 2 4323-8 ####[facility] LABCLIA [id number] [place] [address] ESTIMATED GLOMERULAR FILTRATION RATE 80 mL/min/1.73m??? Normal >=60 [facility] Comment on above: Order Comment: Speci men Type: BLOOD SPECIMENOrdering Facility: [facility] Address: [address] [place] [address] Result Comment: Mari mated Glomerular Filtration Rate (eGFR) is calculated using the 2020 CKD-EPI creatinine equation. This equation utilizes serum creatinine, sex, and age as parameters. The creatinine assay has traceable calibration to isotope dilution-mass spectrometry. Refer to KDIGO guidelines for clinical interpretation. In patients with unstable renal function, e.g. those with acute kidney injury, the eGFR may not accurately reflect actual GFR. Performed By: #### 2 4323-8 ####[facility] LABCLIA [id number] [place] [address] Glucose [Mass/Vol] 102 mg/dL High 74-99 [facility] Comment on above: Order Comment: Speci men Type: BLOOD SPECIMENOrdering Facility: [facility] Address: [address] [place] [address] Result Comment: The [place] Diabetes Association (ADA) provides guidance for cutoff values for fasting glucose and random glucose. The ADA defines fasting as no caloric intake for at least 8 hours. Fasting plasma glucose results between 100 to 125 mg/dL indicate increased risk for diabetes (prediabetes). Fasting plasma glucose results greater than or equal to 126 mg/dL meet the criteria for diagnosis of diabetes. In the absence of unequivocal hyperglycemia, results should be confirmed by repeat testing. In a patient with classic symptoms of hyperglycemia or hyperglycemic crisis, random plasma glucose results greater than or equal to 200 mg/dL meet the criteria for diagnosis of diabetes. Reference: Standards of Medical Care in Diabetes 2016, [place] Diabetes Association. Diabetes Care. 2016.39(Suppl 1). Performed By: #### 2 4323-8 ####[facility] LABCLIA [id number] [place] [address] Potassium [Moles/Vol] 4.0 mmol/L Normal 3.7-5.1 [facility] Comment on above: Order Comment: Speci men Type: BLOOD SPECIMENOrdering Facility: [facility] Address: [address] [place] [address] Performed By: #### 2 4323-8 ####[facility] LABCLIA [id number] [place] [address] Protein [Mass/Vol] 6.6 g/dL Normal 6.3-8.0 [facility] Comment on above: Order Comment: Speci men Type: BLOOD SPECIMENOrdering Facility: [facility] Address: [address] [place] [address] Performed By: #### 2 4323-8 ####[facility] LABCLIA [id number] [place] [address] Sodium [Moles/Vol] 142 mmol/L Normal 136-144 [facility] Comment on above: Order Comment: Speci men Type: BLOOD SPECIMENOrdering Facility: [facility] Address: [address] [address] Performed By: #### 2 4323-8 ####[facility] LABCLIA [id number] [place] [address] Urea nitrogen [Mass/Vol] 13 mg/dL Normal 7-21 [facility] Comment on above: Order Comment: Speci men Type: BLOOD SPECIMENOrdering Facility: [facility] Address: [address] [place], [place] [address] Performed By: #### 2 4323-8 ####[facility] LABCLIA [id number] [place] [address] Ferritin SerPl-mCncon 2021 Ferritin [Mass/Vol] 198.0 ng/mL Normal 14.7-205.1 [facility] Comment on above: Order Comment: Speci men Type: BLOOD SPECIMENOrdering Facility: [facility] Address: [address] [place] [address] Performed By: #### 2 276-4 ####[facility] LABCLIA [id number] [place] [address] [place] Iron and Iron binding capaci panelon 11-10-2021 Iron [Mass/Vol] 62 ug/dL Normal 41-186 [facility] Comment on above: Order Comment: Speci men Type: BLOOD SPECIMENOrdering Facility: [facility] Address: [address] [place], [place] [address] Performed By: #### 5 0190-8 ####[facility] LABCLIA [id number] [place] [address] [place] Iron binding capacity [Mass/Vol] 311 ug/dL Normal 232-386 [facility] Comment on above: Order Comment: Speci men Type: BLOOD SPECIMENOrdering Facility: [facility] Address: [address] [place], [place] [address] Performed By: #### 5 0190-8 ####[facility] LABCLIA [id number] [place] [address] [place] Iron/TIBC [Molar ratio] 19.9 % Normal 15.0-57.0 [facility] Comment on above: Order Comment: Speci men Type: BLOOD SPECIMENOrdering Facility: [facility] Address: [address] [place] [address] Performed By: #### 5 0190-8 ####[facility] LABCLIA [id number] [facility] [id number] [address] [place] CBC W Auto Differential pane l (Bld)on 10-06-2021 Basophils (Bld) [#/Vol] 0.04 10*3/uL Normal <0.11 [facility] Comment on above: Order Comment: Speci men Type: BLOOD SPECIMENOrdering Facility: [facility] Address: [address] [place] [address] Performed By: #### 5 7021-8 ####[facility] LABCLIA [id number] [place] [address] Basophils/100 WBC (Bld) 1.0 % Normal [facility] Comment on above: Order Comment: Speci men Type: BLOOD SPECIMENOrdering Facility: [facility] Address: [address] [place] [address] Performed By: #### 5 7021-8 ####[facility] LABCLIA [id number] [place] [address] Differential cell count method Nom (Bld) Auto Normal [facility] Comment on above: Order Comment: Speci men Type: BLOOD SPECIMENOrdering Facility: [facility] Address: [address] [place], [place] [address] Performed By: #### 5 7021-8 ####[facility] LABCLIA [id number] [place] [address] Eosinophils (Bld) [#/Vol] 0.21 10*3/uL Normal <0.46 [facility] Comment on above: Order Comment: Speci men Type: BLOOD SPECIMENOrdering Facility: [facility] Address: [address] [place], [place] [address] Performed By: #### 5 7021-8 ####[facility] LABCLIA [id number] [place] [address] Eosinophils/100 WBC (Bld) 5.3 % Normal [facility] Comment on above: Order Comment: Speci men Type: BLOOD SPECIMENOrdering Facility: [facility] Address: [address] [place] [address] Performed By: #### 5 7021-8 ####[facility] LABCLIA [id number] [place] [address] Erythrocyte distribution width (RBC) [Ratio] 14.1 % Normal 11.5-15.0 [facility] Comment on above: Order Comment: Speci men Type: BLOOD SPECIMENOrdering Facility: [facility] Address: [address] [place] [address] Performed By: #### 5 7021-8 ####[facility] LABCLIA [id number] [place] [address] Hematocrit (Bld) [Volume fraction] 38.1 % Normal 36.0-46.0 [facility] Comment on above: Order Comment: Speci men Type: BLOOD SPECIMENOrdering Facility: [facility] Address: [address] [place] [address] Performed By: #### 5 7021-8 ####[facility] LABCLIA [id number] [place] [address] Hemoglobin (Bld) [Mass/Vol] 12.2 g/dL Normal 11.5-15.5 [facility] Comment on above: Order Comment: Speci men Type: BLOOD SPECIMENOrdering Facility: [facility] Address: [address] [place] [address] Performed By: #### 5 7021-8 ####[facility] LABCLIA [id number] [place] [address] IMMATURE GRAN % 0.3 % Normal [facility] Comment on above: Order Comment: Speci men Type: BLOOD SPECIMENOrdering Facility: [facility] Address: [address] [place] [address] Performed By: #### 5 7021-8 ####[facility] LABCLIA [id number] [place] [address] IMMATURE GRAN ABS <0.03 Normal <0.10 [facility] Comment on above: Order Comment: Speci men Type: BLOOD SPECIMENOrdering Facility: [facility] Address: [address] [place] [address] Performed By: #### 5 7021-8 ####[facility] LABCLIA [id number] [place] [address] Lymphocytes (Bld) [#/Vol] 1.37 10*3/uL Normal 1.00-4.00 [facility] Comment on above: Order Comment: Speci men Type: BLOOD SPECIMENOrdering Facility: [facility] Address: [address] [place] [address] Performed By: #### 5 7021-8 ####[facility] LABIA [id number] [place] [address] Lymphocytes/100 WBC (Bld) 34.3 % Normal [facility] Comment on above: Order Comment: Speci men Type: BLOOD SPECIMENOrdering Facility: [facility] Address: [address] [place] [address] Performed By: #### 5 7021-8 ####[facility] LABCLIA [id number] [place] [address] MCH (RBC) [Entitic mass] 27.2 pg Normal 26.0-34.0 [facility] Comment on above: Order Comment: Speci men Type: BLOOD SPECIMENOrdering Facility: [facility] Address: [address] [place] [address] Performed By: #### 5 7021-8 ####[facility] LABCLIA [id number] [place] [address] MCHC (RBC) [Mass/Vol] 32.0 g/dL Normal 30.5-36.0 [facility] Comment on above: Order Comment: Speci men Type: BLOOD SPECIMENOrdering Facility: [facility] Address: [address] [place] [address] Performed By: #### 5 7021-8 ####[facility] LABCLIA [id number] [place] [address] MCV (RBC) [Entitic vol] 85.0 fL Normal 80.0-100.0 [facility] Comment on above: Order Comment: Speci men Type: BLOOD SPECIMENOrdering Facility: [facility] Address: [address] [place] [address] Performed By: #### 5 7021-8 ####[facility] LABCLIA [id number] [place] [address] Monocytes (Bld) [#/Vol] 0.46 10*3/uL Normal <0.87 [facility] Comment on above: Order Comment: Speci men Type: BLOOD SPECIMENOrdering Facility: [facility] Address: [address] [place] [address] Performed By: #### 5 7021-8 ####[facility] LABCLIA [id number] [place] [address] Monocytes/100 WBC (Bld) 11.5 % Normal [facility] Comment on above: Order Comment: Speci men Type: BLOOD SPECIMENOrdering Facility: [facility] Address: [address] [place] [address] Performed By: #### 5 7021-8 ####[facility] LABCLIA [id number] [place] [address] Neutrophils (Bld) [#/Vol] 1.91 10*3/uL Normal 1.45-7.50 [facility] Comment on above: Order Comment: Speci men Type: BLOOD SPECIMENOrdering Facility: [facility] Address: [address] [address] Performed By: #### 5 7021-8 ####[facility] LABCLIA [id number] [place] [address] Neutrophils/100 WBC (Bld) 47.6 % Normal [facility] Comment on above: Order Comment: Speci men Type: BLOOD SPECIMENOrdering Facility: [facility] Address: [address] [place] [address] Performed By: #### 5 7021-8 ####[facility] LABCLIA [id number] [place] [address] Nucleated RBC (Bld) [#/Vol] 10*3/uL Normal <0.01 [facility] Comment on above: Order Comment: Speci men Type: BLOOD SPECIMENOrdering Facility: [facility] Address: [address] [place] [address] Performed By: #### 5 7021-8 ####[facility] LABCLIA [id number] [place] [address] Nucleated RBC/100 WBC (Bld) [Ratio] 0.0 /100 WBC Normal [facility] Comment on above: Order Comment: Speci men Type: BLOOD SPECIMENOrdering Facility: [facility] Address: [address] [place] [address] Performed By: #### 5 7021-8 ####[facility] LABCLIA [id number] [place] [address] Platelet mean volume (Bld) [Entitic vol] 9.6 fL Normal 9.0-12.7 [facility] Comment on above: Order Comment: Speci men Type: BLOOD SPECIMENOrdering Facility: [facility] Address: [address] [place] [address] Performed By: #### 5 7021-8 ####[facility] LABCLIA [id number] [place] [address] Platelets (Bld) [#/Vol] 265 10*3/uL Normal 150-400 [facility] Comment on above: Order Comment: Speci men Type: BLOOD SPECIMENOrdering Facility: [facility] Address: [address] [place] [address] Performed By: #### 5 7021-8 ####[facility] LABCLIA [id number] [place] [address] RBC (Bld) [#/Vol] 4.48 10*6/uL Normal 3.90-5.20 [facility] Comment on above: Order Comment: Speci men Type: BLOOD SPECIMENOrdering Facility: [facility] Address: [address] [place] [address] Performed By: #### 5 7021-8 ####[facility] LABCLIA [id number] [place] [address] WBC (Bld) [#/Vol] 4.00 10*3/uL Normal 3.70-11.00 [facility] Comment on above: Order Comment: Speci men Type: BLOOD SPECIMENOrdering Facility: [facility] Address: [address] [place] [address] Performed By: #### 5 7021-8 ####[facility] LABCLIA [id number] [place] [address] Abs Immature Gran <0.03 <0.10 k/uL [facility] Basophils (Bld) [#/Vol] 0.04 10*3/uL <0.11 k/uL [facility] Basophils/100 WBC (Bld) 1.0 % [facility] Differential cell count method Nom (Bld) Auto [facility] Eosinophils (Bld) [#/Vol] 0.21 10*3/uL <0.46 k/uL [facility] Eosinophils/100 WBC (Bld) 5.3 % [facility] Erythrocyte distribution width (RBC) [Ratio] 14.1 % 11.5 - 15.0 % [facility] Hematocrit (Bld) [Volume fraction] 38.1 % 36.0 - 46.0 % [facility] Hemoglobin (Bld) [Mass/Vol] 12.2 g/dL 11.5 - 15.5 g/dL [facility] Immature Gran % 0.3 % [facility] Lymphocytes (Bld) [#/Vol] 1.37 10*3/uL 1.00 - 4.00 k/uL [facility] Lymphocytes/100 WBC (Bld) 34.3 % [facility] MCH (RBC) [Entitic mass] 27.2 pg 26.0 - 34.0 pg [facility] MCHC (RBC) [Mass/Vol] 32.0 g/dL 30.5 - 36.0 g/dL [facility] MCV (RBC) [Entitic vol] 85.0 fL 80.0 - 100.0 fL [facility] Monocytes (Bld) [#/Vol] 0.46 10*3/uL <0.87 k/uL [facility] Monocytes/100 WBC (Bld) 11.5 % [facility] Neutrophils (Bld) [#/Vol] 1.91 10*3/uL 1.45 - 7.50 k/uL [facility] Neutrophils/100 WBC (Bld) 47.6 % [facility] Nucleated RBC (Bld) [#/Vol] 10*3/uL <0.01 k/uL [facility] Nucleated RBC/100 WBC (Bld) [Ratio] 0.0 /100 WBC [facility] Platelet mean volume (Bld) [Entitic vol] 9.6 fL 9.0 - 12.7 fL [facility] Platelets (Bld) [#/Vol] 265 10*3/uL 150 - 400 k/uL [facility] RBC (Bld) [#/Vol] 4.48 10*6/uL 3.90 - 5.2 0 m/uL [facility] WBC (Bld) [#/Vol] 4.00 10*3/uL 3.70 - 11. 00 k/uL [facility] CNPCathie 10-06-2021 PREM Telephone (HEMTSA) NEEL GARCIA ([id number]) 1980 F Date Time Provider Department 10/06/21 [employer]IGATOR OBI IVEY During your visit today, we recorded the following information about you: Vika Parrish Toya Pulido 10/06/2021 1:14 PM Signed 1st report of treatment-Non oncology regimen (Monoferric) Patient has [employer] therefore no FA is required Allergies As of Date: 10/06/2021 (No Known Allergies) Date Reviewed: 10/06/2021 Reviewed by: Arleht Bangura RN - Fully Assessed Reason for Visit: Benefits Investigation [1252] Prescriptions as of 10/06/2021 - SUMAtriptan (IMITREX) 50 mg tablet - topiramate XR (QUDEXY XR) 50 mg cap(s) Take 50 mg by mouth twice daily. - traZODone (DESYREL) 50 mg tablet TAKE 1 TABLET BY MOUTH EVERYDAY AT BEDTIME - sertraline (ZOLOFT) 100 mg tablet Take 100 mg by mouth. Facility-Administere d Medications as of 10/06/2021 - NaCl 0.9% iv infusion - diphenhydrAMINE 50 mg injection (BENADRYL) - hydrocortisone sodium succinate (PF) 100 mg injection (Solu-CORTEF) - EPINEPHrine 1 mg/mL (1 mL) 0.3 mg injection - sodium chloride 0.9 % (flush) 10-20 mL (BD POSIFLUSH) - ferric derisomaltose 1,000 mg in NaCl 0.9% 100 mL (MONOFERRIC) Problem List As Of Date 10/06/2021 Noted Resolved Iron 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] 09/29/2021 Encounter Status:Closed by [facility], VIKA Parrish on 10/06/21 Normal [facility] Ferritin SerPl-mCncon 2021 Ferritin [Mass/Vol] 24.6 ng/mL Normal 14.7-205.1 [facility] Comment on above: Order Comment: Speci men Type: BLOOD SPECIMENOrdering Facility: [facility] Address: [address] [place] [address] [place] [address] Performed By: #### 2 276-4, 62146-4 ####[facility] LABIA [id number] [address] [place] Iron and Iron binding capaci ty panelon 10-06-2021 Iron [Mass/Vol] 33 ug/dL Low 41-186 [facility] Comment on above: Order Comment: Speci men Type: BLOOD SPECIMENOrdering Facility: [facility] Address: [address] [place] [address] Performed By: #### 2 276-4, 73000-7 ####[facility] LABIA [id number] [address] Iron binding capacity [Mass/Vol] 426 ug/dL High 232-386 [facility] Comment on above: Order Comment: Speci men Type: BLOOD SPECIMENOrdering Facility: [facility] Address: [address] [place] [address] Performed By: #### 2 276-4, 88443-2 ####[facility]IA [id number] [address] Iron/TIBC [Molar ratio] 7.7 % Low 15.0-57.0 [facility] Comment on above: Order Comment: Speci men Type: BLOOD SPECIMENOrdering Facility: [facility] Address: [address] [place] [address] Performed By: #### 2 276-4, 38321-3 ####[facility] LABIA [id number] [address] [place] Rhiannon 09-29-2021 PREM Telephone ([place]) NEEL GARCIA ([id number]) 1980 F Date Time Provider Department 09/29/21 PAOLO WARD During your visit today, we recorded the following information about you: Paolo Ward MD 09/29/2021 8:52 AM Signed I spoke with the patient regarding the iron profile results. Ferritin has decreased from 33 to 22 despite adequate oral supplementation. My recommendation is to stop oral iron and do a dose of Monoferric next week. Patient is agreeable with the plan. Orders have been placed. PSS?Please schedule an appointment for next Saturday for an iron infusion. No appointment needed with me. I will see the patient back in 6 weeks for repeat assessment with labs. Thanks MD Vanna Thomas 09/29/2021 9:24 AM Signed Patient has been scheduled for Monoferric on 10/06 and follow up 11/10. Patient has been notified. Vanna Villar Allergies As of Date: 09/29/2021 (No Known Allergies) Date Reviewed: 09/28/2021 Reviewed by: Siobhan Wiley - Fully Assessed Reason for Visit: Results [95] Visit Diagnosis:Iron deficiency anemia, unspecified iron deficiency anemia type [D50.9] Prescriptions as of 09/29/2021 - SUMAtriptan (IMITREX) 50 mg tablet - topiramate XR (QUDEXY XR) 50 mg cap(s) Take 50 mg by mouth twice daily. - traZODone (DESYREL) 50 mg tablet TAKE 1 TABLET BY MOUTH EVERYDAY AT BEDTIME - sertraline (ZOLOFT) 100 mg tablet Take 100 mg by mouth. Problem List As Of Date 09/29/2021 Noted Resolved Iron 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] 09/29/2021 Encounter Status:Closed by PAOLO WARD on 09/29/21 Normal [facility] CBC W Auto Differential pane l (Bld)on 09-28-2021 Basophils (Bld) [#/Vol] 0.04 10*3/uL Normal <0.11 [facility] Comment on above: Order Comment: Speci men Type: BLOOD SPECIMENOrdering Facility: [facility] Address: [address] [address] Performed By: #### 1 4196-0, 89379-2 ####[facility] LABCLIA [id number] [place] [address] Basophils/100 WBC (Bld) 0.8 % Normal [facility] Comment on above: Order Comment: Speci men Type: BLOOD SPECIMENOrdering Facility: [facility] Address: [address] [place] [address] Performed By: #### 1 4196-0, 52963-9 ####[facility] LABCLIA [id number] [place] [address] Differential cell count method Nom (Bld) Auto Normal [facility] Comment on above: Order Comment: Speci men Type: BLOOD SPECIMENOrdering Facility: [facility] Address: [address] [place] [address] Performed By: #### 1 4196-0, ####[facility] LABCLIA [id number] [place] [address] Eosinophils (Bld) [#/Vol] 0.27 10*3/uL Normal <0.46 [facility] Comment on above: Order Comment: Speci men Type: BLOOD SPECIMENOrdering Facility: [facility] Address: [address] [place] [address] Performed By: #### 1 4196-0, ####[facility] LABCLIA [id number] [place] [address] Eosinophils/100 WBC (Bld) 5.6 % Normal [facility] Comment on above: Order Comment: Speci men Type: BLOOD SPECIMENOrdering Facility: [facility] Address: [address] [place] [address] Performed By: #### 1 4196-0, 52390-1 ####[facility] LABCLIA [id number] [place] [address] Erythrocyte distribution width (RBC) [Ratio] 13.7 % Normal 11.5-15.0 [facility] Comment on above: Order Comment: Speci men Type: BLOOD SPECIMENOrdering Facility: [facility] Address: [address] [place] [address] Performed By: #### 1 4196-0, 75444-2 ####[facility] LABIA [id number] [place] [address] Hematocrit (Bld) [Volume fraction] 37.2 % Normal 36.0-46.0 [facility] Comment on above: Order Comment: Speci men Type: BLOOD SPECIMENOrdering Facility: [facility] Address: [address] [place] [address] Performed By: #### 1 4196-0, 40992-7 ####[facility] [id number] [place] [address] Hemoglobin (Bld) [Mass/Vol] 11.8 g/dL Normal 11.5-15.5 [facility] Comment on above: Order Comment: Speci men Type: BLOOD SPECIMENOrdering Facility: [facility] Address: [address] [place] [address] Performed By: #### 1 4196-0, 88820-1 ####[facility] LABIA [id number] [place] [address] IMMATURE GRAN % 0.2 % Normal [facility] Comment on above: Order Comment: Speci men Type: BLOOD SPECIMENOrdering Facility: [facility] Address: [address] [place] [address] Performed By: #### 1 4196-0, 41362-7 ####[facility] LABIA [id number] [place] [address] IMMATURE GRAN ABS <0.03 Normal <0.10 [facility] Comment on above: Order Comment: Speci men Type: BLOOD SPECIMENOrdering Facility: [facility] Address: [address] [place] [address] Performed By: #### 1 4196-0, 84804-5 ####[facility] LABCLIA [id number] [place] [address] Lymphocytes (Bld) [#/Vol] 1.88 10*3/uL Normal 1.00-4.00 [facility] Comment on above: Order Comment: Speci men Type: BLOOD SPECIMENOrdering Facility: [facility] Address: [address] [place] [address] Performed By: #### 1 4196-0, 60699-2 ####[facility] LABIA [id number] [place] [address] Lymphocytes/100 WBC (Bld) 38.9 % Normal [facility] Comment on above: Order Comment: Speci men Type: BLOOD SPECIMENOrdering Facility: [facility] Address: [address] [place] [address] Performed By: #### 1 4196-0, 86308-7 ####[facility] LABIA [id number] [place] [address] MCH (RBC) [Entitic mass] 27.3 pg Normal 26.0-34.0 [facility] Comment on above: Order Comment: Speci men Type: BLOOD SPECIMENOrdering Facility: [facility] Address: [address] [place] [address] Performed By: #### 1 4196-0, 24423-3 ####[facility] LABCLIA [id number] [place] [address] MCHC (RBC) [Mass/Vol] 31.7 g/dL Normal 30.5-36.0 [facility] Comment on above: Order Comment: Speci men Type: BLOOD SPECIMENOrdering Facility: [facility] Address: [address] [place] [address] Performed By: #### 1 4196-0, 65777-5 ####[facility] LABCLIA [id number] [place] [address] MCV (RBC) [Entitic vol] 85.9 fL Normal 80.0-100.0 [facility] Comment on above: Order Comment: Speci men Type: BLOOD SPECIMENOrdering Facility: [facility] Address: [address] [place] [address] Performed By: #### 1 4196-0, 60076-5 ####[facility] LABCLIA [id number] [place] [address] Monocytes (Bld) [#/Vol] 0.56 10*3/uL Normal <0.87 [facility] Comment on above: Order Comment: Speci men Type: BLOOD SPECIMENOrdering Facility: [facility] Address: [address] [place] [address] Performed By: #### 1 4196-0, 29437-1 ####[facility] LABCLIA [id number] [place] [address] Monocytes/100 WBC (Bld) 11.6 % Normal [facility] Comment on above: Order Comment: Speci men Type: BLOOD SPECIMENOrdering Facility: [facility] Address: [address] [place] [address] Performed By: #### 1 4196-0, 63722-5 ####[facility] LABCLIA [id number] [place] [address] Neutrophils (Bld) [#/Vol] 2.07 10*3/uL Normal 1.45-7.50 [facility] Comment on above: Order Comment: Speci men Type: BLOOD SPECIMENOrdering Facility: [facility] Address: [address] [place] [address] Performed By: #### 1 4196-0, 91573-1 ####[facility] LABCLIA [id number] [place] [address] Neutrophils/100 WBC (Bld) 42.9 % Normal [facility] Comment on above: Order Comment: Speci men Type: BLOOD SPECIMENOrdering Facility: [facility] Address: [address] [place], [place] [address] Performed By: #### 1 4196-0, 64875-2 ####[facility] LABIA [id number] [place] [address] Nucleated RBC (Bld) [#/Vol] 10*3/uL Normal <0.01 [facility] Comment on above: Order Comment: Speci men Type: BLOOD SPECIMENOrdering Facility: [facility] Address: [address] [place] [address] Performed By: #### 1 4196-0, 03877-8 ####[facility] LABIA [id number] [place] [address] Nucleated RBC/100 WBC (Bld) [Ratio] 0.0 /100 WBC Normal [facility] Comment on above: Order Comment: Speci men Type: BLOOD SPECIMENOrdering Facility: [facility] Address: [address] [place] [address] Performed By: #### 1 4196-0, 42202-8 ####[facility] LABIA [id number] [place] [address] Platelet mean volume (Bld) [Entitic vol] 9.6 fL Normal 9.0-12.7 [facility] Comment on above: Order Comment: Speci men Type: BLOOD SPECIMENOrdering Facility: [facility] Address: [address] [place], [place] [address] Performed By: #### 1 4196-0, 11234-8 ####[facility] LABIA [id number] [place] [address] Platelets (Bld) [#/Vol] 234 10*3/uL Normal 150-400 [facility] Comment on above: Order Comment: Speci men Type: BLOOD SPECIMENOrdering Facility: [facility] Address: [address] [place] [address] Performed By: #### 1 4196-0, 67708-2 ####[facility] LABIA [id number] [place] [address] RBC (Bld) [#/Vol] 4.33 10*6/uL Normal 3.90-5.20 [facility] Comment on above: Order Comment: Speci men Type: BLOOD SPECIMENOrdering Facility: [facility] Address: [address] [place], [place] [address] Performed By: #### 1 4196-0, 29888-3 ####[facility] LABIA [id number] [place] [address] WBC (Bld) [#/Vol] 4.83 10*3/uL Normal 3.70-11.00 [facility] Comment on above: Order Comment: Speci men Type: BLOOD SPECIMENOrdering Facility: [facility] Address: [address] [place] [address] Performed By: #### 1 4196-0, 69801-1 ####[facility] LABIA [id number] [place] [address] CNOVSPon 09-28-2021 CNOVS Visit (SP) Office ([place]) NEEL GARCIA ([id number]) 1980 F Date Time Provider Department 09/28/21 1:45 PM PAOLO WARD During your visit today, we recorded the following information about you: Temperature Pulse Respiration Blood pressure 97.6 degrees 65/minute 16/minute 116/70 Weight Height Last Period 86.5 kg 1.676 m 09/20/21 Paolo Ward MD 09/28/2021 2:23 PM Signed HEMATOLOGY FOLLOW UP Elements in this clinic note that are critical to medical decision making have been carefully reviewed and included from my prior clinic note dated: August 14, 2021 September 28, 2021 PCP and other physicians involved in patient's care: Blade Crews Sr (PCP) DIAGNOSES: Iron deficiency without anemia HEMATOLOGICAL HISTORY: ? Presented with bruising since November 2020. Initially, it was on the left lower extremity and inner thigh. No history of trauma. This progressed to the outside part of the leg, chest and arms. She started taking topiramate since September 2020. No previous use of aspirin but admits to use of naproxen for abdominal pain. She is a poor historian and cannot recollect the last dose. She reports long standing bleeding gums since childhood. She reports bright red blood per rectum and a colonoscopy in 2019 that was normal. No current GI, bleed, epistaxis, join bleeds or hemoptysis. No prior transfusions. ? On my initial evaluation in May 2021, PT, PTT, TT, and fibrinogen were normal. CBC was within normal hemoglobin and platelet count. Iron studies showed a ferritin of 14.6 confirming iron deficiency without anemia. Recommendation was a GI referral and oral iron trial. ? May 31, 2021 started oral iron with resulting improvement in energy levels and resolution of easy bruising ? September 20, 2021 EGD and colonoscopy (Dr. Quiros) notable for internal hemorrhoids but otherwise normal INTERVAL HISTORY: Neel comes back for a follow up. Overall doing well. She is again taking ibuprofen with return of some easy bruisability. She takes this for nonspecific GI pain. No immanuel GI or bleeding. Scopes last week were notable for hemorrhoids but otherwise were normal. ROS is negative except that mentioned in HPI PAST MEDICAL SURGICAL FAMILY AND SOCIAL HISTORY: She has a history of ?Epilepsy, since childhood; normal MRI brain in October 2019; follows with neurology ?Iron deficiency, GI work up pending ?Asthma, controlled ??Irritable bowel syndrome Previous surgeries include urethral stricture dilatation and colonoscopy. Family history of bleeding problem in her mother but she cannot provide more details. She was born in [place] and has lived in [place] in the past. She reports occasional smoking - cigars that are dipped in cognac - last use a month back. Occasional alcohol use. No other substance abuse reported. She lives with her with 5 children. She is not working now but used to work at [employer] (was laid off during COVID-19). MEDICATIONS AND ALLERGIES: Reviewed PHYSICAL EXAM BP 116/70 Pulse 65 Temp 36.4 ?C (97.6 ?F) (Temporal) Resp 16 Ht 167.6 cm (5' 5.98 ) Wt 86.5 kg (190 lb 12.8 oz) LMP 09/20/2021 SpO2 100% BMI 30.81 kg/m? Head atraumatic, no pallor, icterus or lymphadenopathy, lungs clear to auscultation, heart sounds regular, abdomen soft without distension or organomegaly, neuro grossly non-focal, skin without rash or bruising, extremities without swelling LABORATORY, IMAGING AND PATHOLOGY CBC reviewed Iron profile in process ASSESSMENT AND RECOMMENDATIONS 41 female with easy bruising and iron deficiency Her bruising is mild and self resolving. The bruising is likely related to prior use of naproxen and current use of ibuprofen. Basic work-up including PT, PTT, fibrinogen, CBC, CMP and inflammatory markers was normal. Platelet function screen was not done but the yield for doing that is low. No additional testing needed. Advised patient to stop NSAIDs and take acetaminophen instead. Initial labs also demonstrated iron deficiency without anemia. Potential etiology could be ulcers secondary to use of NSAIDs. Scopes were negative. Iron profile is in process. If ferritin is normal, okay to discontinue oral iron. If ferritin continues to be low, will recommend intravenous iron. Follow up in 3 months with repeat labs Paolo Ward MD I spent a total of 20 minutes on the date of the service which included preparing to see the patient, [id number] patient care, completing clinical documentation, obtaining and/or reviewing separately obtained history, performing a medically appropriate examination, counseling and educating the patient/family/careg iver, ordering medications, tests, or procedures, independently interpreting results (not separately reported) and communicating results to the patient/family/careg iver. CC: Blade Bryan (more content not included)... Normal [facility] FERRITIN BLDon 09-28-2021 Ferritin [Mass/Vol] 22.9 ng/mL Normal 14.7-205.1 [facility] Comment on above: Order Comment: Speci men Type: BLOOD SPECIMENOrdering Facility: [facility] Address: [address] [place], [place] [address] Performed By: #### I KENDRA, FERR ####[facility] LABCLIA [id number] [address] OF [place] IRON + TIBCon 09-28-2021 Iron [Mass/Vol] 44 ug/dL Normal 41-186 [facility] Comment on above: Order Comment: Speci men Type: BLOOD SPECIMENOrdering Facility: [facility] Address: [address] [place] [address] Performed By: #### I KENDRA, FERR ####[facility] LABIA [id number] [address] OF [facility] Iron binding capacity [Mass/Vol] 415 ug/dL High 232-386 [facility] Comment on above: Order Comment: Speci men Type: BLOOD SPECIMENOrdering Facility: [facility] Address: [address] [place], [place] [address] Performed By: #### Jerrell GARDNER, FERR ####[facility] LABIA [id number] [address] [place] Iron/TIBC [Molar ratio] 11 % Low 15-57 [facility] Comment on above: Order Comment: Speci men Type: BLOOD SPECIMENOrdering Facility: [facility] Address: [address] [place], [place] [address] Performed By: #### Jerrell GARDNER, FERR ####[facility] LABIA [id number] [place] [address] [place] Retics #on 09-28-2021 Reticulocytes (Bld) [#/Vol] 0.06591 10*3/uL Normal 0.018-0.100 [facility] Comment on above: Order Comment: Speci men Type: BLOOD SPECIMENOrdering Facility: [facility] Address: [address] [place], [place] [address] Performed By: #### 1 4196-0, 49853-4 ####[facility] LABCLIA [id number] [place] [address] Reticulocytes (Bld) [#/Vol]o n 09-28-2021 Reticulocytes/100 RBC (Bld) 1.0 % Normal 0.4-2.0 [facility] Comment on above: Order Comment: Speci men Type: BLOOD SPECIMENOrdering Facility: [facility] Address: [facility] [place] [address] Performed By: #### 1 4196-0, 60550-5 ####[facility] LABCLIA [id number] [place] [address] HCG,Quantitativeon 2 HCG,Quantitative < 0.60 Normal [facility] Comment on above: Result Comment: Appr oximate Approximate hCG Gestational Age Range (mIU/ml) (weeks) 0.2-1 5-50 1-2 50-500 2-3 100-5,000 3-4 500-10,000 4-5 1,000-50,000 5-6 10,000-100,000 6-8 15,000-200,000 8-12 10,000-100,000 PERFORMED BY: [place] [address] PATHOLOGIST [employer] INST[employer]ER EDIN MONTERROSO M.D. Performed By: #### H CGQNT #### [facility] [address] [place] [address] Serum or plasma beta choriog onadotropin measurement (units/volume)Ordered By: Bryan Quiros on 09-20-2021 HCG.beta subunit Qn m[IU]/mL [facility] Comment on above: Approximate Approxim ate hCG Gestational Age Range (mIU/ml) (weeks) 0.2-1 5-50 1-2 50-500 2-3 100-5,000 3-4 500-10,000 4-5 1,000-50,000 5-6 10,000-100,000 6-8 15,000-200,000 8-12 10,000-100,000 COVID-19 FRMCon 09-15-2021 SARS-CoV-2 (COVID-19) RNA JULEE+probe Ql (Unsp spec) Negative Normal Negative [facility] Comment on above: Order Comment: Healt hcare Worker?: N Result Comment: Testing for SARS-CoV-2 by RT-PCR This test was developed and its performance characteristics determined by [employer] (BD) and validated at the [facility]. This test has not been FDA cleared or approved. This test has been authorized by FDA under an Emergency Use Authorization (EUA). This test has been validated in accordance with the FDA's Guidance Document (Policy for Diagnostics Testing in Laboratories Certified to Perform High Complexity Testing under CLIA prior to Emergency Use Authorization for Coronavirus Disease-2019 during the Public Health Emergency) issued on July 23, 2019. This test is only authorized for the duration of time the declaration that circumstances exist justifying the authorization of the emergency use of in vitro diagnostic tests for detection of SARS-CoV-2 virus and/or diagnosis of COVID-19 infection under section 564(b)(1) of the Act, 21 U.S.C. 360bbb-3(b)(1), unless the authorization is terminated or revoked sooner. PERFORMED BY: [place] [address] PATHOLOGIST [employer] INSTALLER EDIN MONTERROSO M.D. Performed By: #### C OVID 19 [facility] #### [address] COVID-19 Positive/NegativeOr dered By: Bryan Quiros on 09-15-2021 SARS-CoV-2 (COVID-19) N gene JULEE+probe Ql (Resp) Negative Negative [facility] Comment on above: Testing for SARS-CoV -2 by RT-PCR This test was developed and its performance characteristics determined by [employer] (BD) and validated at the [facility]. This test has not been FDA cleared or approved. This test has been authorized by FDA under an Emergency Use Authorization (EUA). This test has been validated in accordance with the FDA's Guidance Document (Policy for Diagnostics Testing in Laboratories Certified to Perform High Complexity Testing under CLIA prior to Emergency Use Authorization for Coronavirus Disease-2019 during the Public Health Emergency) issued on July 23, 2019. This test is only authorized for the duration of time the declaration that circumstances exist justifying the authorization of the emergency use of in vitro diagnostic tests for detection of SARS-CoV-2 virus and/or diagnosis of COVID-19 infection under section 564(b)(1) of the Act, 21 U.S.C. 360bbb-3(b)(1), unless the authorization is terminated or revoked sooner. CBC W Auto Differential pane l (Bld)on 08-14-2021 Basophils (Bld) [#/Vol] 0.04 10*3/uL Normal <0.11 [facility] Comment on above: Order Comment: Speci men Type: BLOOD SPECIMENOrdering Facility: [facility] Address: [address] [place] [address] Performed By: #### 5 7021-8 ####[facility] LABCLIA [id number] [place] [address] Basophils/100 WBC (Bld) 1.0 % Normal [facility] Comment on above: Order Comment: Speci men Type: BLOOD SPECIMENOrdering Facility: [facility] Address: [address] [place] [address] Performed By: #### 5 7021-8 ####[facility] LABCLIA [id number] [place] [address] Differential cell count method Nom (Bld) Auto Normal [facility] Comment on above: Order Comment: Speci men Type: BLOOD SPECIMENOrdering Facility: [facility] Address: [address] [place] [address] Performed By: #### 5 7021-8 ####[facility] LABCLIA [id number] [place] [address] Eosinophils (Bld) [#/Vol] 0.18 10*3/uL Normal <0.46 [facility] Comment on above: Order Comment: Speci men Type: BLOOD SPECIMENOrdering Facility: [facility] Address: [address] [address] Performed By: #### 5 7021-8 ####[facility] LABCLIA [id number] [place] [address] Eosinophils/100 WBC (Bld) 4.6 % Normal [facility] Comment on above: Order Comment: Speci men Type: BLOOD SPECIMENOrdering Facility: [facility] Address: [address] [place] [address] Performed By: #### 5 7021-8 ####[facility] LABCLIA [id number] [place] [address] Erythrocyte distribution width (RBC) [Ratio] 14.9 % Normal 11.5-15.0 [facility] Comment on above: Order Comment: Speci men Type: BLOOD SPECIMENOrdering Facility: [facility] Address: [address] [place] [address] Performed By: #### 5 7021-8 ####[facility] LABCLIA [id number] [place] [address] Hematocrit (Bld) [Volume fraction] 38.6 % Normal 36.0-46.0 [facility] Comment on above: Order Comment: Speci men Type: BLOOD SPECIMENOrdering Facility: [facility] Address: [address] [place] [address] Performed By: #### 5 7021-8 ####[facility] LABCLIA [id number] [place] [address] Hemoglobin (Bld) [Mass/Vol] 12.2 g/dL Normal 11.5-15.5 [facility] Comment on above: Order Comment: Speci men Type: BLOOD SPECIMENOrdering Facility: [facility] Address: [address] [place] [address] Performed By: #### 5 7021-8 ####[facility] LABCLIA [id number] [place] [address] IMMATURE GRAN % 0.3 % Normal [facility] Comment on above: Order Comment: Speci men Type: BLOOD SPECIMENOrdering Facility: [facility] Address: [address] [place] [address] Performed By: #### 5 7021-8 ####[facility] LABCLIA [id number] [place] [address] IMMATURE GRAN ABS <0.03 Normal <0.10 [facility] Comment on above: Order Comment: Speci men Type: BLOOD SPECIMENOrdering Facility: [facility] Address: [address] [place] [address] Performed By: #### 5 7021-8 ####[facility] LABIA [id number] [place] [address] Lymphocytes (Bld) [#/Vol] 1.57 10*3/uL Normal 1.00-4.00 [facility] Comment on above: Order Comment: Speci men Type: BLOOD SPECIMENOrdering Facility: [facility] Address: [address] [place] [address] Performed By: #### 5 7021-8 ####[facility] LABIA [id number] [place] [address] Lymphocytes/100 WBC (Bld) 40.4 % Normal [facility] Comment on above: Order Comment: Speci men Type: BLOOD SPECIMENOrdering Facility: [facility] Address: [address] [place] [address] Performed By: #### 5 7021-8 ####[facility] LABIA [id number] [place] [address] MCH (RBC) [Entitic mass] 27.2 pg Normal 26.0-34.0 [facility] Comment on above: Order Comment: Speci men Type: BLOOD SPECIMENOrdering Facility: [facility] Address: [address] [place] [address] Performed By: #### 5 7021-8 ####[facility] LABCLIA [id number] [place] [address] MCHC (RBC) [Mass/Vol] 31.6 g/dL Normal 30.5-36.0 [facility] Comment on above: Order Comment: Speci men Type: BLOOD SPECIMENOrdering Facility: [facility] Address: [address] [place] [address] Performed By: #### 5 7021-8 ####[facility] LABCLIA [id number] [place] [address] MCV (RBC) [Entitic vol] 86.2 fL Normal 80.0-100.0 [facility] Comment on above: Order Comment: Speci men Type: BLOOD SPECIMENOrdering Facility: [facility] Address: [address] [place] [address] Performed By: #### 5 7021-8 ####[facility] LABCLIA [id number] [place] [address] Monocytes (Bld) [#/Vol] 0.43 10*3/uL Normal <0.87 [facility] Comment on above: Order Comment: Speci men Type: BLOOD SPECIMENOrdering Facility: [facility] Address: [address] [place] [address] Performed By: #### 5 7021-8 ####[facility] LABCLIA [id number] [place] [address] Monocytes/100 WBC (Bld) 11.1 % Normal [facility] Comment on above: Order Comment: Speci men Type: BLOOD SPECIMENOrdering Facility: [facility] Address: [address] [place] [address] Performed By: #### 5 7021-8 ####[facility] LABCLIA [id number] [place] [address] Neutrophils (Bld) [#/Vol] 1.66 10*3/uL Normal 1.45-7.50 [facility] Comment on above: Order Comment: Speci men Type: BLOOD SPECIMENOrdering Facility: [facility] Address: [address] [place] [address] Performed By: #### 5 7021-8 ####[facility] LABCLIA [id number] [place] [address] Neutrophils/100 WBC (Bld) 42.6 % Normal [facility] Comment on above: Order Comment: Speci men Type: BLOOD SPECIMENOrdering Facility: [facility] Address: [address] [place] [address] Performed By: #### 5 7021-8 ####[facility] LABCLIA [id number] [place] [address] Nucleated RBC (Bld) [#/Vol] 10*3/uL Normal <0.01 [facility] Comment on above: Order Comment: Speci men Type: BLOOD SPECIMENOrdering Facility: [facility] Address: [address] [place] [address] Performed By: #### 5 7021-8 ####[facility] LABCLIA [id number] [place] [address] Nucleated RBC/100 WBC (Bld) [Ratio] 0.0 /100 WBC Normal [facility] Comment on above: Order Comment: Speci men Type: BLOOD SPECIMENOrdering Facility: [facility] Address: [address] [place] [address] Performed By: #### 5 7021-8 ####[facility] LABCLIA [id number] [place] [address] Platelet mean volume (Bld) [Entitic vol] 10.2 fL Normal 9.0-12.7 [facility] Comment on above: Order Comment: Speci men Type: BLOOD SPECIMENOrdering Facility: [facility] Address: [address] [place] [address] Performed By: #### 5 7021-8 ####[facility] LABCLIA [id number] [place] [address] Platelets (Bld) [#/Vol] 279 10*3/uL Normal 150-400 [facility] Comment on above: Order Comment: Speci men Type: BLOOD SPECIMENOrdering Facility: [facility] Address: [address] [place] [address] Performed By: #### 5 7021-8 ####[facility] LABIA [id number] [place] [address] RBC (Bld) [#/Vol] 4.48 10*6/uL Normal 3.90-5.20 [facility] Comment on above: Order Comment: Speci men Type: BLOOD SPECIMENOrdering Facility: [facility] Address: [address] [place] [address] Performed By: #### 5 7021-8 ####[facility] LABIA [id number] [place] [address] WBC (Bld) [#/Vol] 3.89 10*3/uL Normal 3.70-11.00 [facility] Comment on above: Order Comment: Speci men Type: BLOOD SPECIMENOrdering Facility: [facility] Address: [address] [place] [address] Performed By: #### 5 7021-8 ####[facility] [id number] [place] [address] CNOVSPon 08-14-2021 CNOVSP Visit (SP) Office ([facility]) NEEL GARCIA ([id number]) 1980 F Date Time Provider Department 08/14/21 1:45 PM PAOLO WARD During your visit today, we recorded the following information about you: Temperature Pulse Respiration Blood pressure 97.1 degrees 65/minute 16/minute 115/57 Weight Height 88.7 kg 1.676 m Paolo Ward MD 08/14/2021 1:58 PM Signed HEMATOLOGY FOLLOW UP Elements in this clinic note that are critical to medical decision making have been carefully reviewed and included from my prior clinic note dated: June 26, 2021 August 14, 2021 PCP and other physicians involved in patient's care: Blade Crews Sr (PCP) DIAGNOSES: Iron deficiency without anemia HEMATOLOGICAL HISTORY: ? Presented with bruising since November 2020. Initially, it was on the left lower extremity and inner thigh. No history of trauma. This progressed to the outside part of the leg, chest and arms. She started taking topiramate since September 2020. No previous use of aspirin but admits to use of naproxen for abdominal pain. She is a poor historian and cannot recollect the last dose. She reports long standing bleeding gums since childhood. She reports bright red blood per rectum and a colonoscopy in 2019 that was normal. No current GI, bleed, epistaxis, join bleeds or hemoptysis. No prior transfusions. ? On my initial evaluation in May 2021, PT, PTT, TT, and fibrinogen were normal. CBC was within normal hemoglobin and platelet count. Iron studies showed a ferritin of 14.6 confirming iron deficiency without anemia. Recommendation was a GI referral and oral iron trial. ? May 31, 2021 started oral iron with resulting improvement in energy levels and resolution of easy bruising INTERVAL HISTORY: Neel comes back for a follow up. Overall doing well. No new symptoms. Scopes to postponed due to a non-COVID related GI infection. This has resolved. ROS is negative except that mentioned in HPI PAST MEDICAL SURGICAL FAMILY AND SOCIAL HISTORY: She has a history of ?Epilepsy, since childhood; normal MRI brain in October 2019; follows with neurology ?Iron deficiency, GI work up pending ?Asthma, controlled ??Irritable bowel syndrome Previous surgeries include urethral stricture dilatation and colonoscopy. Family history of bleeding problem in her mother but she cannot provide more details. She was born in [place] and has lived in [place] in the past. She reports occasional smoking - cigars that are dipped in cognac - last use a month back. Occasional alcohol use. No other substance abuse reported. She lives with her with 5 children. She is not working now but used to work at [employer] (was laid off during -). MEDICATIONS AND ALLERGIES: Reviewed PHYSICAL EXAM BP 115/57 Pulse 65 Temp 36.2 ?C (97.1 ?F) (Temporal) Resp 16 Ht 167.6 cm (5' 5.98 ) Wt 88.7 kg (195 lb 9.6 oz) LMP 05/26/2021 SpO2 92% BMI 31.59 kg/m? Head atraumatic, no pallor, icterus or lymphadenopathy, lungs clear to auscultation, heart sounds regular, abdomen soft without distension or organomegaly, neuro grossly non-focal, skin without rash or bruising, extremities without swelling LABORATORY, IMAGING AND PATHOLOGY CBC reviewed Ferritin in process ASSESSMENT AND RECOMMENDATIONS 41 female with easy bruising and iron deficiency Her bruising has resolved. Basic work-up including PT, PTT, fibrinogen, CBC, CMP and inflammatory markers was normal. Platelet function screen was not done but the yield for doing that is low. This may have been related to prior use of naproxen but patient was not able to elicit a clear causal relationship on her history. Initial labs also demonstrated iron deficiency without anemia. Potential etiology could be ulcers secondary to use of NSAIDs. Scopes are still pending. Continue oral iron for now. Follow up in 6 weeks with labs prior. Paolo Ward MD I spent a total of 15 minutes on the date of the service which included preparing to see the patient, [id number] patient care, completing clinical documentation, obtaining and/or reviewing separately obtained history, performing a medically appropriate examination, counseling and educating the patient/family/careg iver, ordering medications, tests, or procedures, independently interpreting results (not separately reported) and communicating results to the patient/family/careg iver. CC: Blade Crews . Referring Provider: PAOLO WARD [[id number]] Allergies As of Date: 08/14/2021 (No Known Allergies) Date Reviewed: 08/14/2021 Reviewed by: Aranza Mobley MA - Fully Assessed Reason for Visit: Anemia [6] Cmt: 1 month follow up Primary Visit Diagnosis:Iron deficiency anemia, unspecified iron deficiency anemia type [D50.9] Order(s):CBC + DIFF [SQCBCDIF] Order #: [id number] FUTURE RETIC C (more content not included)... Normal [facility] IRON + TIBCon 08-14-2021 Iron [Mass/Vol] 61 ug/dL Normal 41-186 [facility] Comment on above: Order Comment: Speci men Type: BLOOD SPECIMENOrdering Facility: [facility] Address: [address] [place] [address] Result Comment: Resu lts may be falsely increased due to interference from hemolysis. Suggest reorder as clinically indicated. Performed By: #### I KENDRA ####[facility] LABCLIA [id number] [address] Iron binding capacity [Mass/Vol] Normal [facility] Comment on above: Order Comment: Speci men Type: BLOOD SPECIMENOrdering Facility: [facility] Address: [address] [place] [address] Result Comment: Unab le to calculate due to hemolysis. Performed By: #### I KENDRA ####[facility] LABCLIA [id number] [address] Iron/TIBC [Molar ratio] Normal [facility] Comment on above: Order Comment: Speci men Type: BLOOD SPECIMENOrdering Facility: [facility] Address: [address] [place] [address] Result Comment: Unab le to calculate due to hemolysis. Performed By: #### I KENDRA ####[facility] LABCLIA [id number] [address] [place] [facility] CBC W Auto Differential pane l (Bld)on 06-26-2021 Basophils (Bld) [#/Vol] 0.04 10*3/uL Normal <0.11 [facility] Comment on above: Order Comment: Speci men Type: BLOOD SPECIMENOrdering Facility: [facility] Address: [address] [place] [address] Performed By: #### 5 7021-8 ####[facility] LABCLIA [id number] [place] [address] Basophils/100 WBC (Bld) 0.8 % Normal [facility] Comment on above: Order Comment: Speci men Type: BLOOD SPECIMENOrdering Facility: [facility] Address: [address] [place] [address] Performed By: #### 5 7021-8 ####[facility] LABCLIA [id number] [place] [address] Differential cell count method Nom (Bld) Auto Normal [facility] Comment on above: Order Comment: Speci men Type: BLOOD SPECIMENOrdering Facility: [facility] Address: [address] [place] [address] Performed By: #### 5 7021-8 ####[facility] LABCLIA [id number] [place] [address] Eosinophils (Bld) [#/Vol] 0.14 10*3/uL Normal <0.46 [facility] Comment on above: Order Comment: Speci men Type: BLOOD SPECIMENOrdering Facility: [facility] Address: [address] [place] [address] Performed By: #### 5 7021-8 ####[facility] LABCLIA [id number] [place] [address] Eosinophils/100 WBC (Bld) 2.9 % Normal [facility] Comment on above: Order Comment: Speci men Type: BLOOD SPECIMENOrdering Facility: [facility] Address: [address] [place] [address] Performed By: #### 5 7021-8 ####[facility] LABIA [id number] [place] [address] Erythrocyte distribution width (RBC) [Ratio] 15.4 % High 11.5-15.0 [facility] Comment on above: Order Comment: Speci men Type: BLOOD SPECIMENOrdering Facility: [facility] Address: [address] [place] [address] Performed By: #### 5 7021-8 ####[facility] LABCLIA [id number] [place] [address] Hematocrit (Bld) [Volume fraction] 38.8 % Normal 36.0-46.0 [facility] Comment on above: Order Comment: Speci men Type: BLOOD SPECIMENOrdering Facility: [facility] Address: [address] [place] [address] Performed By: #### 5 7021-8 ####[facility] LABIA [id number] [place] [address] Hemoglobin (Bld) [Mass/Vol] 12.4 g/dL Normal 11.5-15.5 [facility] Comment on above: Order Comment: Speci men Type: BLOOD SPECIMENOrdering Facility: [facility] Address: [address] [place] [address] Performed By: #### 5 7021-8 ####[facility] LABIA [id number] [place] [address] IMMATURE GRAN % 0.2 % Normal [facility] Comment on above: Order Comment: Speci men Type: BLOOD SPECIMENOrdering Facility: [facility] Address: [address] [place] [address] Performed By: #### 5 7021-8 ####[facility] LABIA [id number] [place] [address] IMMATURE GRAN ABS <0.03 Normal <0.10 [facility] Comment on above: Order Comment: Speci men Type: BLOOD SPECIMENOrdering Facility: [facility] Address: [address] [place] [address] Performed By: #### 5 7021-8 ####[facility] LABIA [id number] [place] [address] Lymphocytes (Bld) [#/Vol] 1.53 10*3/uL Normal 1.00-4.00 [facility] Comment on above: Order Comment: Speci men Type: BLOOD SPECIMENOrdering Facility: [facility] Address: [address] [place] [address] Performed By: #### 5 7021-8 ####[facility] LABCLIA [id number] [place] [address] Lymphocytes/100 WBC (Bld) 31.2 % Normal [facility] Comment on above: Order Comment: Speci men Type: BLOOD SPECIMENOrdering Facility: [facility] Address: [address] [place] [address] Performed By: #### 5 7021-8 ####[facility] LABCLIA [id number] [place] [address] MCH (RBC) [Entitic mass] 27.1 pg Normal 26.0-34.0 [facility] Comment on above: Order Comment: Speci men Type: BLOOD SPECIMENOrdering Facility: [facility] Address: [address] [place] [address] Performed By: #### 5 7021-8 ####[facility] LABCLIA [id number] [place] [address] MCHC (RBC) [Mass/Vol] 32.0 g/dL Normal 30.5-36.0 [facility] Comment on above: Order Comment: Speci men Type: BLOOD SPECIMENOrdering Facility: [facility] Address: [address] [place] [address] Performed By: #### 5 7021-8 ####[facility] LABIA [id number] [place] [address] MCV (RBC) [Entitic vol] 84.7 fL Normal 80.0-100.0 [facility] Comment on above: Order Comment: Speci men Type: BLOOD SPECIMENOrdering Facility: [facility] Address: [address] [place] [address] Performed By: #### 5 7021-8 ####[facility] LABCLIA [id number] [place] [address] Monocytes (Bld) [#/Vol] 0.49 10*3/uL Normal <0.87 [facility] Comment on above: Order Comment: Speci men Type: BLOOD SPECIMENOrdering Facility: [facility] Address: [address] [place] [address] Performed By: #### 5 7021-8 ####[facility] LABCLIA [id number] [place] [address] Monocytes/100 WBC (Bld) 10.0 % Normal [facility] Comment on above: Order Comment: Speci men Type: BLOOD SPECIMENOrdering Facility: [facility] Address: [address] [place] [address] Performed By: #### 5 7021-8 ####[facility] LABCLIA [id number] [place] [address] Neutrophils (Bld) [#/Vol] 2.70 10*3/uL Normal 1.45-7.50 [facility] Comment on above: Order Comment: Speci men Type: BLOOD SPECIMENOrdering Facility: [facility] Address: [address] [place] [address] Performed By: #### 5 7021-8 ####[facility] LABCLIA [id number] [place] [address] Neutrophils/100 WBC (Bld) 54.9 % Normal [facility] Comment on above: Order Comment: Speci men Type: BLOOD SPECIMENOrdering Facility: [facility] Address: [address] [place] [address] Performed By: #### 5 7021-8 ####[facility] LABCLIA [id number] [place] [address] Nucleated RBC (Bld) [#/Vol] 10*3/uL Normal <0.01 [facility] Comment on above: Order Comment: Speci men Type: BLOOD SPECIMENOrdering Facility: [facility] Address: [address] [place] [address] Performed By: #### 5 7021-8 ####[facility] LABCLIA [id number] [place] [address] Nucleated RBC/100 WBC (Bld) [Ratio] 0.0 /100 WBC Normal [facility] Comment on above: Order Comment: Speci men Type: BLOOD SPECIMENOrdering Facility: [facility] Address: [address] [place] [address] Performed By: #### 5 7021-8 ####[facility] LABCLIA [id number] [place] [address] Platelet mean volume (Bld) [Entitic vol] 9.5 fL Normal 9.0-12.7 [facility] Comment on above: Order Comment: Speci men Type: BLOOD SPECIMENOrdering Facility: [facility] Address: [address] [place] [address] Performed By: #### 5 7021-8 ####[facility] LABCLIA [id number] [place] [address] Platelets (Bld) [#/Vol] 286 10*3/uL Normal 150-400 [facility] Comment on above: Order Comment: Speci men Type: BLOOD SPECIMENOrdering Facility: [facility] Address: [address] [place], [place] [phone] Performed By: #### 5 7021-8 ####[facility] LABCLIA [id number] [place] [address] RBC (Bld) [#/Vol] 4.58 10*6/uL Normal 3.90-5.20 [facility] Comment on above: Order Comment: Speci men Type: BLOOD SPECIMENOrdering Facility: [facility] Address: [address] [place], [place] [phone] Performed By: #### 5 7021-8 ####[facility] LABCLIA [id number] [place] [address] WBC (Bld) [#/Vol] 4.91 10*3/uL Normal 3.70-11.00 [facility] Comment on above: Order Comment: Speci men Type: BLOOD SPECIMENOrdering Facility: [facility] Address: [facility] [place] [address] Performed By: #### 5 7021-8 ####[facility] LABCLIA [id number] [place] [address] CNOVSPon 06-26-2021 CNOVSP Visit (SP) Office (HEMASA) NEEL GARCIA ([id number]) 1980 F Date Time Provider Department 06/26/21 2:45 PM PAOLO WARD During your visit today, we recorded the following information about you: Temperature Pulse Respiration Blood pressure 97.6 degrees 69/minute 16/minute 107/69 Weight Height 89.6 kg 1.676 m Paolo Ward MD 06/26/2021 3:18 PM Signed HEMATOLOGY FOLLOW UP Elements in this clinic note that are critical to medical decision making have been carefully reviewed and included from my prior clinic note dated: May 29, 2021 June 26, 2021 PCP and other physicians involved in patient's care: Blade Crews Sr (PCP) DIAGNOSES: Easy bruising and iron deficiency HEMATOLOGICAL HISTORY: ? Presented with bruising since November 2020. Initially, it was on the left lower extremity and inner thigh. No history of trauma. This progressed to the outside part of the leg, chest and arms. She started taking topiramate since September 2020. No previous use of aspirin but admits to use of naproxen for abdominal pain. She is a poor historian and cannot recollect the last dose. She reports long standing bleeding gums since childhood. She reports bright red blood per rectum and a colonoscopy in 2019 that was normal. No current GI, bleed, epistaxis, join bleeds or hemoptysis. No prior transfusions. ? On my initial evaluation in May 2021, PT, PTT, TT, and fibrinogen were normal. CBC was within normal hemoglobin and platelet count. Iron studies showed a ferritin of 14.6 confirming iron deficiency without anemia. Recommendation was a GI referral and oral iron trial. INTERVAL HISTORY: Neel comes back for a follow up. She started oral iron once daily on 05-31-21. Since then, she has felt more energy. Bruising has since then resolved. No bruising today. No other sites of bleeding. Constipation is mild. Scopes scheduled this week. She reports menstrual bleeding every month for 2 days duration. She reports a previous history of ulcers but denies any heartburn today. ROS is negative except that mentioned in HPI PAST MEDICAL SURGICAL FAMILY AND SOCIAL HISTORY: She has a history of ?Epilepsy, since childhood; normal MRI brain in October 2019; follows with neurology ?Iron deficiency, GI work up pending ?Asthma, controlled ??Irritable bowel syndrome Previous surgeries include urethral stricture dilatation and colonoscopy. Family history of bleeding problem in her mother but she cannot provide more details. She was born in [place] and has lived in [place] in the past. She reports occasional smoking - cigars that are dipped in cognac - last use a month back. Occasional alcohol use. No other substance abuse reported. She lives with her with 5 children. She is not working now but used to work at [employer] (was laid off during ). MEDICATIONS AND ALLERGIES: Reviewed PHYSICAL EXAM BP 107/69 Pulse 69 Temp 36.4 ?C (97.6 ?F) (Temporal) Resp 16 Ht 167.6 cm (5' 5.98 ) Wt 89.6 kg (197 lb 9.6 oz) LMP 05/26/2021 SpO2 96% BMI 31.91 kg/m? Head atraumatic, no pallor, icterus or lymphadenopathy, lungs clear to auscultation, heart sounds regular, abdomen soft without distension or organomegaly, neuro grossly non-focal, skin without rash or bruising, extremities without swelling LABORATORY, IMAGING AND PATHOLOGY 12-29-20 Hemoglobin 11.6, MCV 88, platelets 241, WBC 5.1, differential normal, CMP normal PT 10.5, PTT 27.5 16- WSR 51, CRP 5.9, B12 328, MMA normal, folate 7, TSH 2 GEO negative, RPR nonreactive, Lyme antibody negative, SPEP without measurable M spike, serum and urine immunofixation without monoclonality 05-29-21 Hemoglobin 11.5, platelets 300 Ferritin 14.6, TIBC 417, saturation 13% PT, PTT, TT and fibrinogen normal Platelet screen inappropriately drawn ASSESSMENT AND RECOMMENDATIONS 41 female with easy bruising and iron deficiency Her bruising has resolved. Basic work-up including PT, PTT, fibrinogen, CBC, CMP and inflammatory markers was normal. Platelet function screen was not done but the yield for doing that is low. Initial labs also demonstrated iron deficiency without anemia. She has scopes planned for this week. Potential etiology could be ulcers secondary to use of NSAIDs. Continue oral iron for now. Follow up in 6 weeks with labs. Paolo Ward MD I spent a total of 16 minutes on the date of the service which included preparing to see the patient, [id number] patient care, completing clinical documentation, obtaining and/or reviewing separately obtained history, performing a medically appropriate examination, counseling and educating the patient/family/careg iver, ordering medications, tests, or procedures, independently interpreting results (not separately reported) and communicating results to the patient/family/careg iver. CC (more content not included)... Normal [facility] SARS-CoV-2 (COVID-19) RNA JULEE+probe Ql (Unsp spec) Negative Normal Negative [facility] Comment on above: Order Comment: Healt hcare Worker?: N Result Comment: Testing for SARS-CoV-2 by RT-PCR This test was developed and its performance characteristics determined by [employer] ([employer]) and validated at the [facility]. This test has not been FDA cleared or approved. This test has been authorized by FDA under an Emergency Use Authorization (EUA). This test has been validated in accordance with the FDA's Guidance Document (Policy for Diagnostics Testing in Laboratories Certified to Perform High Complexity Testing under CLIA prior to Emergency Use Authorization for Coronavirus Disease-2019 during the Public Health Emergency) issued on July 23, 2019. This test is only authorized for the duration of time the declaration that circumstances exist justifying the authorization of the emergency use of in vitro diagnostic tests for detection of SARS-CoV-2 virus and/or diagnosis of COVID-19 infection under section 564(b)(1) of the Act, 21 U.S.C. 360bbb-3(b)(1), unless the authorization is terminated or revoked sooner. PERFORMED BY: [facility] [address] [id number] PATHOLOGIST [employer] INSTALLER EDIN MONTERROSO M.D. Performed By: #### C OVID 19 [facility] #### [address] COVID-19 Positive/NegativeOr dered By: Bryan Quiros on 06-26-2021 SARS-CoV-2 (COVID-19) N gene JULEE+probe Ql (Resp) Negative Negative [facility] Comment on above: Testing for SARS-CoV -2 by RT-PCR This test was developed and its performance characteristics determined by [employer] ([employer]) and validated at the [facility]. This test has not been FDA cleared or approved. This test has been authorized by FDA under an Emergency Use Authorization (EUA). This test has been validated in accordance with the FDA's Guidance Document (Policy for Diagnostics Testing in Laboratories Certified to Perform High Complexity Testing under CLIA prior to Emergency Use Authorization for Coronavirus Disease-2019 during the Public Health Emergency) issued on July 23, 2019. This test is only authorized for the duration of time the declaration that circumstances exist justifying the authorization of the emergency use of in vitro diagnostic tests for detection of SARS-CoV-2 virus and/or diagnosis of COVID-19 infection under section 564(b)(1) of the Act, 21 U.S.C. 360bbb-3(b)(1), unless the authorization is terminated or revoked sooner. FERRITIN BLDon 06-26-2021 Ferritin [Mass/Vol] 34.6 ng/mL Normal 14.7-205.1 [facility] Comment on above: Order Comment: Speci men Type: BLOOD SPECIMENOrdering Facility: [facility] Address: [address] [address] Performed By: #### I KENDRA, FERR ####[facility] LABCLIA [id number] [address] [facility] IRON + TIBCon 06-26-2021 Iron [Mass/Vol] 60 ug/dL Normal 41-186 [facility] Comment on above: Order Comment: Speci men Type: BLOOD SPECIMENOrdering Facility: [facility] Address: [address] [place] [address] Performed By: #### I KENDRA, FERR ####[facility] LABIA [id number] [address] Iron binding capacity [Mass/Vol] 398 ug/dL High 232-386 [facility] Comment on above: Order Comment: Speci men Type: BLOOD SPECIMENOrdering Facility: [facility] Address: [address] [place] [address] Performed By: #### Jerrell GARDNER, FERR ####[facility] LABIA [id number] [address] Iron/TIBC [Molar ratio] 15 % Normal 15-57 [facility] Comment on above: Order Comment: Speci men Type: BLOOD SPECIMENOrdering Facility: [facility] Address: [address] [place] [address] Performed By: #### Jerrell GARDNER, FERR ####[facility] LABIA [id number] [address] [place] M CNPCathie 06-20-2021 CNPN Telephone (HEMASA) NEEL GARCIA ([id number]) 1980 F Date Time Provider Department 06/20/21 PAOLO WARD During your visit today, we recorded the following information about you: Laurie Russell 06/20/2021 8:59 AM Signed Please sign pending cbc order. Thanks, ALPA Eden MD 06/20/2021 10:07 AM Signed Signed, sarath. Allergies As of Date: 06/20/2021 (No Known Allergies) Date Reviewed: 05/29/2021 Reviewed by: Laurie Russell - Fully Assessed Reason for Visit: Lab Orders [1688] Primary Visit Diagnosis:Iron deficiency anemia, unspecified iron deficiency anemia type [D50.9] Order(s):CBC + DIFF [SQCBCDIF] Order #: [id number] FUTURE Prescriptions as of 06/22/2021 - ferrous sulfate 325 mg (65 mg iron) tablet Take 1 tablet by mouth daily with breakfast. - topiramate XR (QUDEXY XR) 50 mg cap(s) Take 50 mg by mouth twice daily. - traZODone (DESYREL) 50 mg tablet TAKE 1 TABLET BY MOUTH EVERYDAY AT BEDTIME - sertraline (ZOLOFT) 100 mg tablet Take 100 mg by mouth. Problem List As Of Date: 06/20/2021 (None) Encounter Status:Closed by LAURIE RUSSELL [facility] Telephone (HE[place]) NEEL GARCIA ([id number]) 1980 F Date Time Provider Department 05/30/21 PAOLO WARD During your visit today, we recorded the following information about you: Paolo Ward MD 05/30/2021 12:37 PM Signed I spoke with the patient regarding the results of her blood test. PT, PTT, fibrinogen, thrombin time are normal and suggest absence of a major bleeding disorder. She will need a repeat platelet function screening which we will draw at the next visit. Ferritin was extremely low at 14.5 and she essentially has iron deficiency without anemia. I have recommended that she start oral iron once a day (prescription sent to [facility] pharmacy in [place], [place]) and follow-up in 1 month with repeat labs. She will also need a referral to see a travel accommodations rater for scopes. MD Alina Thomas Sec 05/30/2021 12:48 PM Addendum sloane please send records to [facility] I will print facesheet for you Alina Lex Sec 05/30/2021 12:50 PM Signed Patient is already scheduled for month appt Amelie Murray [facility] 05/30/2021 1:22 PM Signed Records faxed to Dr. Quiros. Miriam Raymond [facility] 06/05/2021 11:18 AM Signed Called [facility] and spoke with Karolina. She states they have received patient records and their office will be calling patient soon to schedule. Miriam Raymond [facility] Miriam Raymond [facility] 06/07/2021 3:01 PM Signed Called [facility] spoke with Christiane. She states their crystal machining coordinator will be calling patient to schedule. Miriam Raymond [facility] Miriam Raymond [facility] 06/19/2021 10:42 AM Signed Called [facility] spoke with Karolina. She states they have tried to call patient left several messages and are waiting for patient to call their office back. Miriam Raymond [facility] Miriam Raymond [facility] 06/28/2021 1:07 PM Signed Spoke with Christiane from [facility] office. She states patient was scheduled today 06/28 for Colonoscopy and EGD, but they received voicemail from patient she wanted to cancel due to she was not feeling well. Miriam Raymond [facility] Vanna Villar 08/14/2021 2:43 PM Signed Spoke fabiaan Nolen to let her know that patient is now ready to be scheduled for this. She states she will forward and will contact patient to schedule. Vanna Villar Allergies As of Date: 05/30/2021 (No Known Allergies) Date Reviewed: 05/29/2021 Reviewed by: Laurie Russell - Fully Assessed Reason for Visit: Results [95] Primary Visit Diagnosis:Iron deficiency anemia, unspecified iron deficiency anemia type [D50.9] Order(s):CONSULT TO GASTROENTEROLOGY [7778] Order #: [id number]: 1 FUTURE [] ferrous sulfate 325 mg (65 mg iron) tabletTake 1 tablet by mouth daily with breakfast.Disp: 30 tabletRfl: 2 IRON + TIBC [SQIRON] Order #: [id number] FUTURE FERRITIN BLD [SQFERR] Order #: [id number] FUTURE Prescriptions as of 08/14/2021 - SUMAtriptan (IMITREX) 50 mg tablet - topiramate XR (QUDEXY XR) 50 mg cap(s) Take 50 mg by mouth twice daily. - traZODone (DESYREL) 50 mg tablet TAKE 1 TABLET BY MOUTH EVERYDAY AT BEDTIME - sertraline (ZOLOFT) 100 mg tablet Take 100 mg by mouth. Problem List As Of Date: 05/30/2021 (None) Prescriptions ordered this encounter Disp Refills Start End FERROUS SULFATE 325 MG (65 MG IRON) * 30 t* 2 05/30/2021 06/29/2021 Route: ORAL Sig: Take 1 tablet by mouth daily with breakfast. Encounter Status:Closed by PAOLO WARD on 05/30/21 Normal [facility] APTTon 05-29-2021 aPTT Coag (Bld) [Time] 27.8 s Normal 23.0-32.4 [facility] Comment on above: Result Comment: Unfr actionated Heparin Therapeutic Ranges: Standard Heparin Nomogram: 53 to 78 seconds (anti-Xa level of 0.3 to 0.7 U/ml) Low Dose/ACS Nomogram: 49 to 67 seconds (anti-Xa level of 0.2 to 0.5 U/ml) Stroke Treatment Nomogram: 49 to 67 seconds (anti-Xa level of 0.2 to 0.5 U/ml) Note: The APTT therapeutic range has been determined for the current lot of laboratory APTT reagent in use throughout the [facility]. Performed By: #### P TT, WSR, TT, FERR, FIBCT, PT, HAPTO, CRP, IRON ####[facility] [place], [place] [phone] C-Reactive Proteinon 022 C-Reactive Protein 0.5 mg/dL Normal <0.9 [facility] Comment on above: Performed By: #### P TT, WSR, TT, FERR, FIBCT, PT, HAPTO, CRP, IRON ####[facility] [address] [place], [place] [phone] CNOVSPon 05-29-2021 CNOVSP Visit (SP) Office (HEMASA) NEEL GARCIA ([id number]) 1980 F Date Time Provider Department 05/29/21 3:00 PM PAOLO WARD During your visit today, we recorded the following information about you: Temperature Pulse Respiration Blood pressure 97.2 degrees 67/minute 18/minute 115/68 Weight Height Last Period 89.8 kg 1.676 m 05/26/21 Paolo Ward MD 05/29/2021 4:39 PM Signed HEMATOLOGY INITIAL CONSULTATION May 29, 2021 REFERRAL REQUESTED BY: Blade Crews Sr PCP and other physicians involved in patient's care: Blade Crews Sr (PCP) REASON FOR CONSULTATION: Easy brusing HPI: this is a 41 year old female referred to the clinic for easy bruising. She endorses bruising that started 6 months ago. Initially, it was on the left lower extremity and inner thigh. No history of trauma. This progressed to the outside part of the leg, chest and arms. Over the last 6 months, the frequency increased. Bruising is intermittent. No bruising today, but was there last week. She does not have pictures to show me today. She started taking topiramate 8 months back. She is not on aspirin but admits to previous use of naproxen for abdominal pain. She cannot recollect her last dose. She reports long standing bleeding gums since childhood. She reports bright red blood per rectum and a colonoscopy in 2019 that was normal. No current GI, bleed, epistaxis, join bleeds or hemoptysis. No prior transfusions. Patient is a poor historian and does not recollect all details of her history. ROS is negative except that mentioned in HPI PAST MEDICAL SURGICAL FAMILY AND SOCIAL HISTORY: She has a history of ?Epilepsy, since childhood; normal MRI brain in October 2019; follows with neurology ?Asthma, controlled ??Irritable bowel syndrome Previous surgeries include urethral stricture dilatation and colonoscopy. Family history of bleeding problem in her mother but she cannot provide more details. She was born in [place] and has lived in [place] in the past. She reports occasional smoking - cigars that are dipped in cognac - last use a month back. Occasional alcohol use. No other substance abuse reported. She lives with her with 5 children. She is not working now but used to work at [employer] (was laid off during ). MEDICATIONS AND ALLERGIES: Reviewed PHYSICAL EXAM BP 115/68 Pulse 67 Temp 36.2 ?C (97.2 ?F) (Temporal) Resp 18 Ht 167.6 cm (5' 6 ) Wt 89.8 kg (198 lb) LMP 05/26/2021 BMI 31.96 kg/m? Head atraumatic, no pallor, icterus or lymphadenopathy, lungs clear to auscultation, heart sounds regular, abdomen soft without distension or organomegaly, neuro grossly non-focal, skin without rash or bruising, extremities without swelling LABORATORY, IMAGING AND PATHOLOGY 12-29-20 Hemoglobin 11.6, MCV 88, platelets 241, WBC 5.1, differential normal, CMP normal PT 10.5, PTT 27.5 7-16-21 WSR 51, CRP 5.9, B12 328, MMA normal, folate 7, TSH 2 GEO negative, RPR nonreactive, Lyme antibody negative, SPEP without measurable M spike, serum and urine immunofixation without monoclonality ASSESSMENT AND RECOMMENDATIONS 41 female with easy bruising The differential for easy bruising is broad. Differentials in her case could be medication induced (topiramate, naproxen) versus a bleeding disorder with a mild phenotype (given her history of gum bleeding since childhood). I will start with some basic work-up including PT, PTT, fibrinogen, CBC, CMP, inflammatory markers and platelet function screen. Further work-up and recommendations will be dependent on the above testing. Follow-up in 4 to 5 weeks to review above testing results. Paolo Ward MD I spent a total of 50 minutes on the date of the service which included preparing to see the patient, [id number] patient care, completing clinical documentation, obtaining and/or reviewing separately obtained history, performing a medically appropriate examination, counseling and educating the patient/family/careg iver, ordering medications, tests, or procedures, independently interpreting results (not separately reported) and communicating results to the patient/family/careg iver. CC: Blade Crews Sr. Referring Provider: BLADE CREWS SR [[id number]] Allergies As of Date: 05/29/2021 (No Known Allergies) Date Reviewed: 05/29/2021 Reviewed by: Laurie Drew - Fully Assessed Reason for Visit: New Patient [172] Cmt: easy bruising Primary Visit Diagnosis:Anemia, unspecified type [D64.9] Other Visit Diagnosis:Easy bruisability [R23.8] Order(s):CBC + DIFF (FOR REMOTE [facility] USE) [SQRCBCDF] Order #: [id number] FUTURE COMP METABOLIC PANEL [SQCMP] Order #: [id number] FUTURE SED RATE WESTERGREN [SQWSR] Order #: [id number] FUTURE C-REACTIVE PROTEIN (CRP) [SQCRP] Order #: [id number] FUTURE IRON + TIBC [SQIRON] Order #: [id number] FUTU (more content not included)... Normal [facility] Comp Metabolic Panelon 05-29 Albumin [Mass/Vol] 4.6 g/dL Normal 3.9-4.9 [facility] Comment on above: Performed By: #### P TT, WSR, TT, FERR, FIBCT, PT, HAPTO, CRP, IRON ####[facility], [place] [phone] ALP [Catalytic activity/Vol] 83 U/L Normal 34-123 [facility] Comment on above: Performed By: #### P TT, WSR, TT, FERR, FIBCT, PT, HAPTO, CRP, IRON ####[facility], [place] [phone] ALT [Catalytic activity/Vol] 21 U/L Normal 7-38 [facility] Comment on above: Performed By: #### P TT, WSR, TT, FERR, FIBCT, PT, HAPTO, CRP, IRON ####[place] [address], [place] [phone] Anion gap [Moles/Vol] 11 mmol/L Normal 9-18 [facility] Comment on above: Performed By: #### P TT, WSR, TT, FERR, FIBCT, PT, HAPTO, CRP, IRON ####[address] [place], [place] [phone] AST [Catalytic activity/Vol] 19 U/L Normal 13-35 [facility] Comment on above: Performed By: #### P TT, WSR, TT, FERR, FIBCT, PT, HAPTO, CRP, IRON ####[address] [place], [place] [phone] Bilirubin [Mass/Vol] 0.6 mg/dL Normal 0.2-1.3 [facility] Comment on above: Performed By: #### P TT, WSR, TT, FERR, FIBCT, PT, HAPTO, CRP, IRON ####[place] [address], [place] [phone] Calcium [Mass/Vol] 9.2 mg/dL Normal 8.5-10.2 [facility] Comment on above: Performed By: #### P TT, WSR, TT, FERR, FIBCT, PT, HAPTO, CRP, IRON ####[address] [place] [address], [place] [phone] Chloride [Moles/Vol] 107 mmol/L High 97-105 [facility] Comment on above: Performed By: #### P TT, WSR, TT, FERR, FIBCT, PT, HAPTO, CRP, IRON ####[place] [address], [place] [phone] CO2 [Moles/Vol] 23 mmol/L Normal 22-30 [facility] Comment on above: Performed By: #### P TT, WSR, TT, FERR, FIBCT, PT, HAPTO, CRP, IRON ####[address] [phone] Creatinine [Mass/Vol] 1.00 mg/dL High 0.58-0.96 [facility] Comment on above: Performed By: #### P TT, WSR, TT, FERR, FIBCT, PT, HAPTO, CRP, IRON ####[place] [phone] eGFR- Amer. >60 Normal [facility] Comment on above: Performed By: #### P TT, WSR, TT, FERR, FIBCT, PT, HAPTO, CRP, IRON ####[place] [phone] eGFR-All Other Races >60 Normal [facility] Comment on above: Result Comment: eGFR (Estimated GFR) Units of measure: mL/min/1.73 meters squared eGFR is derived from the reexpressed MDRD Study equation using the following parameters: serum creatinine, age, gender and race. The creatinine assay has been calibrated to be traceable to IDMS. An eGFR <60 mL/min/1.73m2 for >3 months is consistent with chronic kidney disease. Refer to KDOQI guidelines for clinical interpretation. In patients with unstable renal function, e.g. those with acute kidney injury, the eGFR may not accurately reflect actual GFR. Note: On 06/17/2021, the eGFR calculation will be updated to the NKF-ASN Task Force recommended 2020 CKD-EPI creatinine equation which does not include a race variable. For more information or to access a 2020 CKD-EPI calculator, visit the National Kidney Foundation website at kidney.org/professionals/kdoqi/gfr_calculator. Performed By: #### P TT, WSR, TT, FERR, FIBCT, PT, HAPTO, CRP, IRON ####[address] [phone] Glucose [Mass/Vol] 85 mg/dL Normal 74-99 [facility] Comment on above: Result Comment: The [place] Diabetes Association (ADA) provides guidance for cutoff values for fasting glucose and random glucose. The ADA defines fasting as no caloric intake for at least 8 hours. Fasting plasma glucose results between 100 to 125 mg/dL indicate increased risk for diabetes (prediabetes). Fasting plasma glucose results greater than or equal to 126 mg/dL meet the criteria for diagnosis of diabetes. In the absence of unequivocal hyperglycemia, results should be confirmed by repeat testing. In a patient with classic symptoms of hyperglycemia or hyperglycemic crisis, random plasma glucose results greater than or equal to 200 mg/dL meet the criteria for diagnosis of diabetes. Reference: Standards of Medical Care in Diabetes 2016, [place] Diabetes Association. Diabetes Care. 2016.39(Suppl 1). Performed By: #### P TT, WSR, TT, FERR, FIBCT, PT, HAPTO, CRP, IRON ####[address] [phone] Potassium [Moles/Vol] 3.3 mmol/L Low 3.7-5.1 [facility] Comment on above: Performed By: #### P TT, WSR, TT, FERR, FIBCT, PT, HAPTO, CRP, IRON ####[address] [phone] Protein [Mass/Vol] 7.6 g/dL Normal 6.3-8.0 [facility] Comment on above: Performed By: #### P TT, WSR, TT, FERR, FIBCT, PT, HAPTO, CRP, IRON ####[address] [phone] Sodium [Moles/Vol] 141 mmol/L Normal 136-144 [facility] Comment on above: Performed By: #### P TT, WSR, TT, FERR, FIBCT, PT, HAPTO, CRP, IRON ####[address] [phone] Urea nitrogen [Mass/Vol] 12 mg/dL Normal 7-21 [facility] Comment on above: Performed By: #### P TT, WSR, TT, FERR, FIBCT, PT, HAPTO, CRP, IRON ####[place] [address], [place] [phone] Ferritinon 05-29-2021 Ferritin [Mass/Vol] 14.6 ng/mL Low 14.7-205.1 [facility] Comment on above: Performed By: #### P TT, WSR, TT, FERR, FIBCT, PT, HAPTO, CRP, IRON ####[place] [address], [place] [phone] Fibrinogenon 05-29-2021 Fibrinogen 338 mg/dL Normal 200-400 [facility] Comment on above: Performed By: #### P TT, WSR, TT, FERR, FIBCT, PT, HAPTO, CRP, IRON ####[place] [address], [place] [phone] Haptoglobinon 05-29-2021 Haptoglobin 161 mg/dL Normal 31-238 [facility] Comment on above: Performed By: #### P TT, WSR, TT, FERR, FIBCT, PT, HAPTO, CRP, IRON ####[place] [address], [place] [phone] Iron and TIBCon 05-29-2021 Iron [Mass/Vol] 53 ug/dL Normal 41-186 [facility] Comment on above: Performed By: #### P TT, WSR, TT, FERR, FIBCT, PT, HAPTO, CRP, IRON ####[place] [address], [place] [phone] TIBC 417 ug/dL High 232-386 [facility] Comment on above: Performed By: #### P TT, WSR, TT, FERR, FIBCT, PT, HAPTO, CRP, IRON ####[place] [address], [place] [phone] Transferrin Saturatn 13 % Low 15-57 [facility] Comment on above: Performed By: #### P TT, WSR, TT, FERR, FIBCT, PT, HAPTO, CRP, IRON ####[address] [phone] Platelet Func Scrnon 022 COL/ADP Cartridge Account Credited Normal <118 [facility] Comment on above: Result Comment: Test Not Done Notified Dr. Ward at 0940 on 05.30.21 AB Performed By: #### P LTSCP ####[address] [phone] COL/EPI Cartridge Account Credited Normal <194 [facility] Comment on above: Result Comment: Test Not Done Notified Dr. Ward at 0940 on 05.30.21 AB Performed By: #### P LTSCP ####[address] [phone] Plt Func Scr Interp Account Credited Normal [facility] Comment on above: Performed By: #### P LTSCP ####[address] [phone] Protimeon 05-29-2021 PT INR 1.0 Normal 0.9-1.3 [facility] Comment on above: Result Comment: Kathy min K Antagonist (VKA) Therapeutic Range: INR 2 to 3 (Target INR of 2.5) Note: For patients treated with VKA drugs, such as warfarin, the [place] [employer] 2012 Guideline recommends a therapeutic INR range of 2 to 3 (target INR of 2.5). This recommendation includes high-risk patients with antiphospholipid syndrome with previous arterial or venous thromboembolism, current-generation mechanical or bioprosthetic aortic heart valve replacement. Note: Patients with mechanical aortic valve replacement and additional risk factors for thromboembolic events (atrial fibrillation, previous thromboembolism, LV dysfunction, hypercoagulable conditions) or an older generation mechanical AVR (i.e., ball in-Cage) or any mechanical MVR should have a INR therapeutic range of 2.5 to 3.5 (target INR of 3). Walter GH, et al. Chest 2012, 141:7S-47S Srinivasa RA, et al. [facility] 2017, 70: 252-289 Performed By: #### P TT, WSR, TT, FERR, FIBCT, PT, HAPTO, CRP, IRON ####[facility] [place], [place] [phone] PT Sec 10.9 sec Normal 9.7-13.0 [facility] Comment on above: Performed By: #### P TT, WSR, TT, FERR, FIBCT, PT, HAPTO, CRP, IRON ####[facility] [place], [place] [phone] Remote CBCDIF (for [facility] use o nly)on 05-29-2021 Abs Baso 0.04 k/uL Normal <0.11 [facility] Abs Kimball 0.49 k/uL Normal <0.87 [facility] Abs Neut 1.66 k/uL Normal 1.45-7.50 [facility] Absolute nRBC <0.01 Normal <0.01 [facility] Basophils/100 WBC (Bld) 1.0 % Normal [facility] DTYPE Auto Diff Normal [facility] Eosinophils (Bld) [#/Vol] 0.19 10*3/uL Normal <0.46 [facility] Eosinophils/100 WBC (Bld) 4.9 % Normal [facility] Erythrocyte distribution width (RBC) [Ratio] 14.6 % Normal 11.5-15.0 [facility] Hematocrit (Bld) [Volume fraction] 36.0 % Normal 36.0-46.0 [facility] Hemoglobin (Bld) [Mass/Vol] 11.5 g/dL Normal 11.5-15.5 [facility] Lymphocytes (Bld) [#/Vol] 1.50 10*3/uL Normal 1.00-4.00 [facility] Lymphocytes/100 WBC (Bld) 38.6 % Normal [facility] MCH 26.5 pG Normal 26.0-34.0 [facility] MCHC (RBC) [Mass/Vol] 31.9 g/dL Normal 30.5-36.0 [facility] MCV (RBC) [Entitic vol] 82.9 fL Normal 80.0-100.0 [facility] Monocytes/100 WBC (Bld) 12.6 % Normal [facility] Neutrophils/100 WBC (Bld) 42.9 % Normal [facility] NRBCs 0.0 /100 WBC Normal 0 [facility] Platelet mean volume (Bld) [Entitic vol] 9.2 fL Normal 9.0-12.7 [facility] Platelets (Bld) [#/Vol] 300 10*3/uL Normal 150-400 [facility] RBC (Bld) [#/Vol] 4.34 10*6/uL Normal 3.90-5.20 [facility] WBC (Bld) [#/Vol] 3.89 10*3/uL Normal 3.70-11.00 [facility] Reticulocyteon 05-29-2021 Abs Retic 0.047 M/uL Normal 0.0180-0.1000 [facility] Comment on above: Performed By: #### P TT, WSR, TT, FERR, FIBCT, PT, HAPTO, CRP, IRON ####[facility], [place] [phone] Retic% 1.1 % Normal 0.4-2.0 [facility] Comment on above: Performed By: #### P TT, WSR, TT, FERR, FIBCT, PT, HAPTO, CRP, IRON ####[facility], [place] [phone] Sed Rate Westergrenon 2021 Sed Rate Westergren 22 mm/hr High 0-20 [facility] Comment on above: Performed By: #### P TT, WSR, TT, FERR, FIBCT, PT, HAPTO, CRP, IRON ####[place] [address] [place], [place] [phone] Thrombin Timeon 05-29-2021 Thrombin Time 17.3 sec Normal <18.6 [facility] Comment on above: Performed By: #### P TT, WSR, TT, FERR, FIBCT, PT, HAPTO, CRP, IRON ####[facility] [address], [place] [phone] MRI BRAIN W WO CONTRASTon MRI BRAIN W WO CONTRAST EXAMINATION: MRI OF THE BRAIN WITHOUT AND WITH CONTRAST 10/22/2019 2:33 pm TECHNIQUE: Multiplanar multisequence MRI of the head/brain was performed without and with the administration of intravenous contrast. COMPARISON: None. HISTORY: ORDERING SYSTEM PROVIDED HISTORY: Intractable epilepsy without status epilepticus, unspecified epilepsy type (HCC) TECHNOLOGIST PROVIDED HISTORY: Is the patient ?->No FINDINGS: INTRACRANIAL STRUCTURES/VENTRICLE S: There are no areas of restricted diffusion identified to suggest an acute infarct. There is no acute intracranial hemorrhage. No mass effect or midline shift is present. The brain is of normal signal intensities. The hippocampi are symmetric in size and signal intensities. There is no cortical dysplasia identified. There is no abnormal enhancement. There is no sellar or suprasellar mass present. There is no ventriculomegaly or abnormal extra-axial fluid collection present. The proximal portions of the [place] demonstrate normal flow voids. ORBITS: Limited evaluation of the orbits is unremarkable. SINUSES: The paranasal sinuses and mastoid air cells are clear. BONES/SOFT TISSUES: Bone marrow signal intensity is normal. IMPRESSION: Normal MRI of the brain without findings to explain the patient's seizures. Interpreted by: Erasmo Humphries MD Signed by: Erasmo Humphries MD 10/22/19 Final result Normal [facility] Normal MRI of the brain without findings to explain the patient's seizures. [facility]- [place], [place] EXAMINATION: MRI OF THE BRAIN WITHOUT AND WITH CONTRAST 10/22/2019 2:33 pm TECHNIQUE: Multiplanar multisequence MRI of the head/brain was performed without and with the administration of intravenous contrast. COMPARISON: None. HISTORY: ORDERING SYSTEM PROVIDED HISTORY: Intractable epilepsy without status epilepticus, unspecified epilepsy type (HCC) TECHNOLOGIST PROVIDED HISTORY: Is the patient ?->No FINDINGS: INTRACRANIAL STRUCTURES/VENTRICLE S: There are no areas of restricted diffusion identified to suggest an acute infarct. There is no acute intracranial hemorrhage. No mass effect or midline shift is present. The brain is of normal signal intensities. The hippocampi are symmetric in size and signal intensities. There is no cortical dysplasia identified. There is no abnormal enhancement. There is no sellar or suprasellar mass present. There is no ventriculomegaly or abnormal extra-axial fluid collection present. The proximal portions of the [place] demonstrate normal flow voids. ORBITS: Limited evaluation of the orbits is unremarkable. SINUSES: The paranasal sinuses and mastoid air cells are clear. BONES/SOFT TISSUES: Bone marrow signal intensity is normal. [place], pn Incoming Radiant Results From [employer] - 10/22/2019 4:01 PM EDT EXAMINATION: MRI OF THE BRAIN WITHOUT AND WITH CONTRAST 10/22/2019 2:33 pm TECHNIQUE: Multiplanar multisequence MRI of the head/brain was performed without and with the administration of intravenous contrast. COMPARISON: None. HISTORY: ORDERING SYSTEM PROVIDED HISTORY: Intractable epilepsy without status epilepticus, unspecified epilepsy type ([facility]) TECHNOLOGIST PROVIDED HISTORY: Is the patient ?->No FINDINGS: INTRACRANIAL STRUCTURES/VENTRICLE S: There are no areas of restricted diffusion identified to suggest an acute infarct. There is no acute intracranial hemorrhage. No mass effect or midline shift is present. The brain is of normal signal intensities. The hippocampi are symmetric in size and signal intensities. There is no cortical dysplasia identified. There is no abnormal enhancement. There is no sellar or suprasellar mass present. There is no ventriculomegaly or abnormal extra-axial fluid collection present. The proximal portions of the [place] demonstrate normal flow voids. ORBITS: Limited evaluation of the orbits is unremarkable. SINUSES: The paranasal sinuses and mastoid air cells are clear. BONES/SOFT TISSUES: Bone marrow signal intensity is normal. IMPRESSION: Normal MRI of the brain without findings to explain the patient's seizures. [facility] Vital Signs Date Time Vital Sign Value Performing Clinician Facility 10-30-2022 10:33-0400 Blood Pressure Location AMELIE ESPARZA [facility] 10-30-2022 10:33-0400 Diastolic blood pressure 84 mm[Hg] AMELIE ESPARZA [facility] 10-30-2022 10:33-0400 Heart rate 61 /min AMELIE ESPARZA [facility] 10-30-2022 10:33-0400 Respiratory rate 16 /min AMELIE ESPARZA [facility] 10-30-2022 10:33-0400 Systolic blood pressure 126 mm[Hg] AMELIE ESPARZA [facility] 09-28-2021 13:53-0400 Body height 167.6 cm Paolo Ward MD Work Phone: [facility] 09-28-2021 13:53-0400 Body temperature 97.59 [degF] Paolo Ward MD Work Phone: [facility] 09-28-2021 13:53-0400 Body weight 86.55 kg Paolo Ward MD Work Phone: [facility] 09-28-2021 13:53-0400 Diastolic blood pressure 70 mm[Hg] Paolo Ward MD Work Phone: [facility] 09-28-2021 13:53-0400 Heart rate 65 /min Paolo Ward MD Work Phone: [facility] 09-28-2021 13:53-0400 Respiratory rate 16 /min Paolo Ward MD Work Phone: [facility] 09-28-2021 13:53-0400 SaO2% (BldA) [Mass fraction] 100 % Paolo Ward MD Work Phone: [facility] 09-28-2021 13:53-0400 Systolic blood pressure 116 mm[Hg] Paolo Ward MD Work Phone: [facility] 09-20-2021 08:45-0400 Diastolic blood pressure 68 mm[Hg] DO Blade Crews Work Phone: [facility] 09-20-2021 08:45-0400 Heart rate 68 /min DO Blade Crews Work Phone: [facility] 09-20-2021 08:45-0400 Respiratory rate 18 /min DO Blade Crews Work Phone: [facility] 09-20-2021 08:45-0400 SaO2% (BldA) [Mass fraction] 98 % DO Blade Crews Work Phone: [facility] 09-20-2021 08:45-0400 Systolic blood pressure 105 mm[Hg] DO Blade Crews Work Phone: [facility] 09-20-2021 06:49-0400 Body height 170.18 cm DO Blade Crews Work Phone: [facility] 09-20-2021 06:49-0400 Body mass index (BMI) [Ratio] 28.6 kg/m2 DO Blade Crews Work Phone: [facility] 09-20-2021 06:49-0400 Body temperature 98.5 [degF] DO Blade Crews Work Phone: [facility] 09-20-2021 06:49-0400 Body weight 83 kg DO Blade Crews Work Phone: [facility] 08-14-2021 13:40-0400 Body height 167.6 cm Paolo Ward MD Work Phone: [facility] 08-14-2021 13:40-0400 Body temperature 97.11 [degF] Paolo Ward MD Work Phone: [facility] 08-14-2021 13:40-0400 Body weight 88.72 kg Paolo Ward MD Work Phone: [facility] 08-14-2021 13:40-0400 Diastolic blood pressure 57 mm[Hg] Paolo Ward MD Work Phone: [facility] 08-14-2021 13:40-0400 Heart rate 65 /min Paolo Ward MD Work Phone: [facility] 08-14-2021 13:40-0400 Respiratory rate 16 /min Paolo Ward MD Work Phone: [facility] 08-14-2021 13:40-0400 SaO2% (BldA) [Mass fraction] 92 % Paolo Ward MD Work Phone: [facility] 08-14-2021 13:40-0400 Systolic blood pressure 115 mm[Hg] Paolo Ward MD Work Phone: [facility] 06-27-2021 13:43-0500 Body height 170.18 cm DO [employer] Work Phone: [facility] 06-27-2021 13:43-0500 Body mass index (BMI) [Ratio] 31 kg/m2 DO [employer] Work Phone: [facility] 06-27-2021 13:43-0500 Body weight 89.81 kg DO [employer] Work Phone: [facility] Encounters Encounter Date Encounter Type Care Provider Facility Start: 08-27-2023 End: 08-27-2023 ambulatory RICO CABELLO Not Available Start: 01-08-2023 End: 01-09-2023 ambulatory AMELIE ESPARZA Facility:[facility] Start: 01-08-2023 End: 01-08-2023 Patient encounter procedure AMELIE ESPARZA [facility] [place] Start: 11-13-2022 End: 11-14-2022 ambulatory Constantino MARTINEZ Facility:CD:[id number] Start: 10-30-2022 End: 10-31-2022 ambulatory AMELIE ESPARZA Facility:[facility] Start: 10-30-2022 End: 10-30-2022 Patient encounter procedure AMELIE ESPARZA [facility] Start: 05-30-2022 End: 05-30-[address] INGRID DE LOS SANTOS Facility:[facility] Start: 05-30-2022 End: 05-31-[address] INGRID DE LOS SANTOS Facility:[facility] Start: 05-27-2022 End: 05-27-[address] BLADE CREWS Facility:[facility] Start: 05-10-2022 End: 05-11-[address] BLADE CREWS Facility:[facility] Start: 02-26-2022 End: 02-27-[address] BLADE CREWS Facility:[facility] Start: 02-26-2022 Encounter for preprocedural laboratory examination DR INGRID DE LOS SANTOS [facility] Start: 02-25-2022 End: 02-25-[address] BLADE CREWS Facility:[facility] Start: 02-16-2022 Encounter for preprocedural laboratory examination DR INGRID DE LOS SANTOS [facility] Start: 02-15-2022 End: 02-16-2022 ambulatory Constantino MARTINEZ Facility:CD:[id number] Start: 02-15-2022 End: 02-19-2022 Evaluation and management of inpatient DR INGRID DE LOS SANTOS Facility:[facility] Start: 02-12-2022 End: 02-13-[address] INGRID DE LOS SANTOS Facility:[facility] Start: 02-12-2022 End: 02-13-2022 Encounter for preprocedural laboratory examination DR INGRID DE LOS SANTOS Facility:[facility] Start: 02-07-2022 ambulatory AMELIE ESPARZA Facility :[facility] Start: 01-30-2022 Encounter for other preprocedural examination DR INGRID DE LOS SANTOS [facility] Start: 01-29-2022 End: 01-30-[address] INGRID DE LOS SANTOS Facility:[facility] Start: 01-29-2022 End: 01-30-2022 Encounter for other preprocedural examination DR INGRID DE LOS SANTOS Facility:[facility] Start: 01-05-2022 End: 01-05-[address] INGRID DE LOS SANTOS Facility:[facility] Start: 01-02-2022 End: 01-03-[address] INGRID DE LOS SANTOS Facility:[facility] Start: 12-29-2021 End: 12-30-[address] INGRID DE LOS SANTOS Facility:[facility] Start: 12-20-2021 End: 12-21-[address] INGRID DE LOS SANTOS Facility:[facility] Start: 12-12-2021 End: 12-12-[address] INGRID DE LOS SANTOS Facility:[facility] Start: 11-14-2021 Telephone encounter Jian De La Cruz RN Hematology/Oncology Comment on above: Results Start: 10-06-2021 Telephone encounter Financial Navigator Obi Work Phone: Hematology/Oncology Comment on above: Benefits Investigati on Start: 10-06-2021 End: 10-06-2021 ambulatory Chair Jia Pacheco Work Phone: Hematology/Oncology Comment on above: Iron deficiency anem ia, unspecified iron deficiency anemia type (Primary Dx) Start: 09-29-2021 Telephone encounter Paolo Ward MD Work Phone: Hematology/Oncology Comment on above: Results Start: 09-28-2021 End: 09-28-2021 ambulatory Paolo Ward MD Work Phone: Hematology/Oncology Comment on above: Iron deficiency anem ia, unspecified iron deficiency anemia type (Primary Dx); Easy bruisability Start: 09-28-2021 End: 09-28-2021 Patient encounter procedure Paolo Ward MD Work Phone: [facility] Start: 09-20-2021 End: 09-20-2021 Admission to same day surgery center DO Blade Crews Work Phone: [facility] Start: 09-15-2021 End: 09-15-2021 Patient encounter procedure DO Blade Crews Work Phone: [facility] Start: 08-14-2021 End: 08-14-2021 ambulatory Paolo Ward MD Work Phone: Hematology/Oncology Comment on above: Iron deficiency anem ia, unspecified iron deficiency anemia type (Primary Dx) Start: 08-14-2021 End: 08-14-2021 Patient encounter procedure Paolo Ward MD Work Phone: [facility] Start: 06-28-2021 End: 06-28-2021 Departed Referred DO Blade Crews Work Phone: [facility] Start: 06-26-2021 End: 06-26-2021 Patient encounter procedure DO Blade Eleonora Work Phone: [facility] Start: 05-24-2021 Chart abstracting Paolo guevara MD Work Phone: Hematology/Oncology Start: 10-22-2019 End: 10-25-2019 Patient encounter procedure ALEX Harrsi ANAYAyan [facility] Start: 10-22-2019 End: 10-24-2019 Subsequent hospital visit by physician Page Mri Rm 1 [facility] MRI Comment on above: Intractable epilepsy without status epilepticus, unspecified epilepsy type (HCC) Procedures Date Procedure Procedure Detail Performing Clinician Start: 11-13-2022 Cystourethroscopy with dilation of urethral stricture AMELIE ESPARZA Start: 02-15-2022 Resection of Bilateral Fallopian Tubes, Open Approach DR BLADE CREWS Start: 02-15-2022 Resection of Uterus, Open Approach DR MIGUEL ANGEL CREWS Start: 02-15-2022 Insertion of Other Device into Genitourinary Tract, Via Natural or Artificial Opening Endoscopic DR BLADE CREWS Start: 02-15-2022 Abdominal hysterectomy AMELIE ESPARZA Start: 10-06-2021 Blood count complete auto&auto difrntl wbc Paolo Ward MD Work Phone: Start: 09-28-2021 Adult depression screening assessment Paolo Ward MD Work Phone: Start: 09-20-2021 Esophagogastroduodenoscopy DO Blade Uzair ambriz Work Phone: Start: 06-26-2021 Adult depression screening assessment Paolo Ward MD Work Phone: Start: 10-22-2019 Mri brain brain stem w/o w/contrast material ALEX BEJ Start: 10-22-2019 Mri brain brain stem w/o w/contrast material Alex Kimberly Beayan Work Phone: Plan of Treatment Date Care Activity Detail Author Start: 09-28-2022 Adult depression screening assessment DEPRESSION SCREENING [facility] Start: 06-26-2022 Adult depression screening assessment DEPRESSION SCREENING [facility] Start: 12-21-2021 Influenza vaccination [facility] Start: 09-28-2021 End: 11-28-2021 CBC W Auto Differential panel - Blood CBC + DIFF Lab Routine Iron deficiency anemia, unspecified iron deficiency anemia type Expected: 09/28/2021, Expires: 11/28/2021 [facility] Work Phone: Comment on above: Expected: 09/28/2021, Expires: 2 Start: 09-28-2021 End: 11-28-2021 FERRITIN BLD FERRITIN BLD Lab Routine Iron deficiency anemia, unspecified iron deficiency anemia type Expected: 09/28/2021, Expires: 11/28/2021 [facility] Work Phone: Comment on above: Expected: 09/28/2021, Expires: 2 Start: 09-28-2021 End: 11-28-2021 IRON + TIBC IRON + TIBC Lab Routine Iron deficiency anemia, unspecified iron deficiency anemia type Expected: 09/28/2021, Expires: 11/28/2021 [facility] Work Phone: Comment on above: Expected: 09/28/2021, Expires: 2 Start: 08-14-2021 End: 10-14-2021 CBC W Auto Differential panel - Blood CBC + DIFF Lab Routine Iron deficiency anemia, unspecified iron deficiency anemia type Expected: 08/14/2021, Expires: 10/14/2021 [facility] Work Phone: Comment on above: Expected: 08/14/2021, Expires: 2 Start: 08-14-2021 End: 10-14-2021 FERRITIN BLD FERRITIN BLD Lab Routine Iron deficiency anemia, unspecified iron deficiency anemia type Expected: 08/14/2021, Expires: 10/14/2021 [facility] Work Phone: Comment on above: Expected: 08/14/2021, Expires: 2 Start: 08-14-2021 End: 10-14-2021 IRON + TIBC IRON + TIBC Lab Routine Iron deficiency anemia, unspecified iron deficiency anemia type Expected: 08/14/2021, Expires: 10/14/2021 [facility] Work Phone: Comment on above: Expected: 08/14/2021, Expires: 2 Start: 08-14-2021 End: 10-14-2021 RETIC COUNT RETIC COUNT Lab Routine Iron deficiency anemia, unspecified iron deficiency anemia type Expected: 08/14/2021, Expires: 10/14/2021 [facility] Work Phone: Comment on above: Expected: 08/14/2021, Expires: 2 Start: 06-28-2021 Esophagogastroduodenoscopy DH EGD/Colonoscopy (Not Applicable) [facility] Start: 12-21-2020 Influenza vaccination INFLUENZA (#1) [facility] Start: 12-22-2019 Influenza vaccination Flu vaccine (#1) [place], [place] Start: 2018 Lipid panel Lipid screen [place] Start: 2018 Mammography MAMMOGRAM [facility] Start: 2008 HPV TESTING HPV TESTING [facility] Start: 1999 PAP TESTING PAP TESTING [facility] Start: 1999 Screening for malignant neoplasm of cervix Cervical cancer screen [place], [place] Start: 1997 DTaP/Tdap/Td vaccine (1 - Tdap) DTaP/Tdap/Td vaccine (1 - Tdap) [place] Start: 1997 Urine microalbumin profile DTAP,TDAP,TD (1 - Tdap) [facility] Start: 1996 HEPATITIS C SCREENING HEPATITIS C SCREENING [facility] Start: 1996 HIV SCREENING HIV SCREENING [facility] Start: 1993 HIV screening HIV screen [place], [place] Start: 1990 Adult depression screening assessment DEPRESSION SCREENING [facility] Start: 1983 COVID-19 VACCINE (#1) COVID-19 VACCINE (#1) [facility] Start: 1983 COVID-19 VACCINE (1) COVID-19 VACCINE (1) [facility] Start: 1978 COVID-19 VACCINE (#1) COVID-19 VACCINE (#1) [facility] Ferritin [Mass/volum e] in Serum or Plasma FERRITIN BLD Lab Routine Iron deficiency anemia, unspecified iron deficiency anemia type 10/06/2021 1:31 PM EDT [facility] Work Phone: Iron and Iron bindin g capacity panel - Serum or Plasma IRON + TIBC Lab Routine Iron deficiency anemia, unspecified iron deficiency anemia type 10/06/2021 1:31 PM EDT [facility] Work Phone: [facility] Immunizations Immunization Date Immunization Notes Care Provider Fa [facility] 02-16-2019 influenza, injectabl e, quadrivalent, preservative free Paolo Ward MD Work Phone: [facility] 12-31-2017 influenza, injectabl e, quadrivalent, preservative free Paolo Ward MD Work Phone: [facility] Payers Date Payer Category Payer Unknown [facility] xxxxxxxxxxxx 2014-Present [phone] [address] [place] [address] xxxxxxxxxxxx [id number] 2002 Medicaid [place] [employer] [place] [employer] [id number] 2002-Present [phone] [address] [place] [address] Medicaid [id number] 1978 Unknown [id number] [id number]5 1978 Unknown [id number] 2.16.840.1.873868.3.579.2.593 1978 Unknown [id number] 2.16.840.1.588234.3.579.2.593 1978 Unknown [id number] 2.16.840.1.948598.3.579.2.593 1978 Unknown [id number] 2.16.840.1.261666.3.579.2.593 1978 Unknown [id number] 2.16.840.1.079425.3.579.2.593 1978 Unknown [id number] 2.16.840.1.396217.3.579.2.593 1978 Unknown [id number] 2.16.840.1.191191.3.579.2.593 1978 Unknown [id number] 2.16.840.1.911103.3.579.2.593 1978 Unknown [id number] 2.16.840.1.646398.3.579.2.593 1978 Unknown [id number] 2.16.840.1.806546.3.579.2.593 1978 Unknown [id number] 2.16.840.1.576365.3.579.2.593 1978 Unknown [id number] 2.16.840.1.683030.3.579.2.593 1978 Unknown [id number] 2.16.840.1.547553.3.579.2.593 1978 Unknown [id number] 2.16.840.1.891603.3.579.2.593 1978 Unknown [id number] 2.16.840.1.071318.3.579.2.593 1978 Unknown [id number] 2.16.840.1.629056.3.579.2.727 1978 Unknown [id number] 2.16.840.1.562614.3.579.2.727 1978 Unknown [id number] 2.16.840.1.874936.3.579.2.727 1978 Unknown [id number] 2.16.840.1.460271.3.579.2.727 1978 Unknown [id number] 2.16.840.1.900688.3.579.2.125 9 1959 Unknown [id number] Self-pay Self Pay [id number] Social History Date Type Detail Facility Tobacco smoking status NDIS Unknown if ever smoked [facility] Start: 1980 Sex Assigned At Not on file [place] Tobacco smoking status NDIS Tobacco smoking consumption unknown [facility] Start: 05-29-2021 Tobacco smoking status NDIS Occasional tobacco smoker [facility] Start: 05-29-2021 End: 09-28-2021 Tobacco use and exposure Smokeless tobacco non-user [facility] Start: 08-14-2021 End: 11-10-2021 Alcohol intake Current drinker of alcohol (finding) [facility] Start: 08-14-2021 End: 11-10-2021 Alcohol intake [facility] Start: 05-29-2021 History SDOH Alcohol Comment socially [facility] Start: 08-04-2021 End: 11-10-2021 Exposure to SARS-CoV-2 (event) Not sure [facility] Start: 1980 Sex Assigned At Female F [facility] Start: 09-28-2021 End: 01-08-2023 Tobacco smoking status NHIS Ex-smoker [facility] Sex Assigned At Female [facility] Goals Date Patient Goal Desired Activity /State Functional Status Date Assessment Result Facility 09-19-2023 Functional Status N/A [facility] 10-30-2022 Functional Status N/A [facility] Clinical Notes 05-29-2021 to 01-08-2023 Telephone Encounter - Jian De La Cruz RN - 11/14/2021 3:15 PM EDTTelephone Encounter - Jian De La Cruz RN - 11/14/2021 3:15 PM EDTTelephone Encounter - Vika Pittman [facility] - 10/06/2021 1:13 PM EDT Note Date & Type Note Facility 01-08-2023 Hospital Discharg e instructions Patient Education 01/08/2023 15:11:10 Kegel Exercises Kegel Exercises Kegel exercises can help strengthen your pelvic floor muscles. The pelvic floor is a group of muscles that support your rectum, small intestine, and bladder. In females, pelvic floor muscles also help support the uterus. These muscles help you control the flow of urine and stool (feces). Kegel exercises are painless and simple. They do not require any equipment. Your provider may suggest Kegel exercises to: Improve bladder and bowel control. Improve sexual response. Improve weak pelvic floor muscles after surgery to remove the uterus (hysterectomy) or after , in females. Improve weak pelvic floor muscles after prostate gland removal or surgery, in males. Kegel exercises involve squeezing your pelvic floor muscles. These are the same muscles you squeeze when you try to stop the flow of urine or keep from passing gas. The exercises can be done while sitting, standing, or lying down, but it is best to vary your position. Ask your health care provider which exercises are safe for you. Do exercises exactly as told by your health care provider and adjust them as directed. Do not begin these exercises until told by your health care provider. Exercises How to do Kegel exercises: 1.Squeeze your pelvic floor muscles tight. You should feel a tight lift in your rectal area. If you are a female, you should also feel a tightness in your vaginal area. Keep your stomach, buttocks, and legs relaxed. 2.Hold the muscles tight for up to 10 seconds. 3.Breathe normally. 4.Relax your muscles for up to 10 seconds. 5.Repeat as told by your health care provider. Repeat this exercise daily as told by your health care provider. Continue to do this exercise for at least 4 6 weeks, or for as long as told by your health care provider. You may be referred to a physical therapist who can help you learn more about how to do Kegel exercises. Depending on your condition, your health care provider may recommend: Varying how long you squeeze your muscles. Doing several sets of exercises every day. Doing exercises for several weeks. Making Kegel exercises a part of your regular exercise routine. This information is not intended to replace advice given to you by your health care provider. Make sure you discuss any questions you have with your health care provider. Document Revised: 08/17/2021 Document Reviewed: 08/17/2021 [employer] Patient Education 2022 [employer]. Follow Up Care 10/30/2022 11:37:59 With:FRED DUNCAN, AMELIE Ch, URL Address: [address] [place] [address] When: Unknown Comments:PRN [facility] 10-30-[address] De Los Santos referral HPI Staff Evaluation requested by Dr Ingrid De Los Santos due to voiding dysfunction. Pt. was not able to give a urine sample today. PVR 32mL, Pt. states she last urinated 1 hours ago. S/P Cysto/Ureteral Stents prior to surgery by Dr De Los Santos 02/15/22. Pt has never before been seen in our office. 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 no cx done. +Micro UA 05/30/22 (2-5 RBC). NEG C&S 05/30/22 Dysuria: no Incomplete bladder emptying: no Hematuria: no Frequency: no Urgency: yes Nocturia: occasionally Stream: good stream, Pt. states it takes a while to empty bladder. Post void dripping: occasionally Wearing pads/ Depends: yes pt. states she wears a panty liner and will use 2 a day. Urge incontinence: occasionally Stress incontinence: no Incontinence without Sensory Awareness: no Abdominal pain: Pt. states having lower abd pain, on going over a month Flank pain: Pt. states having bilateral flank pain, on going after abd pain. History of Present Illness staff HPI reviewed and agree. Review of Systems PHQ Score Initial Depression Screen Score: 0 no fever, chills, malaise, myalgia. no rash/lesions. no chest pain, palpitations, or SOB. no abdominal pain, nausea, vomiting. no unilateral calf swelling, redness, pain Physical Exam Vitals & Measurements HR: 61(Peripheral) RR: 16 BP: 126/84 HT: 67 in HT: 170 cm WT: 86.5 kg WT: 190.3 lb BMI: 29.93 General: nontoxic, NAD Mouth: moist mucosa Lungs: normal respiratory effort Cardio: regular rate, good distal perfusion Abdomen: nondistended, no suprapubic distention or tenderness, no CVA tenderness Neurologic: Grossly normal Skin: No rashes or suspicious lesions Assessment/Plan 1. Microscopic hematuria (R31.29: Other microscopic hematuria) +Micro UA 02/25/22 (5-10 RBC). no cx done. +Micro UA 05/30/22 (2-5 RBC). NEG C&S 05/30/22 Pt denies having any visible blood in her urine. small on IO UA today. AUA microhematuria risk assessment: age FM <50, M <40 : low smoking hx 10-30 pack years : intermediate RBCs on UA 3-10 RBCs : low additional risk factors : irritative LUTS no family hx cancer no occupational exposure no hx chronic indwelling foreign body in urinary tract no previously low risk with no prior imaging/cysto : yes, now has 3-25 RBCs : intermediate based on the above risk assessment the pt is considered INTERMEDIATE risk - will order cysto and TISHA. Will schedule cysto w/ possible UD. The risks and benefits for cystoscopy have been discussed. The risks include bleeding, infection, and irritation of the bladder and urinary channel, among others. The patient, after being informed of procedural details and after questions have been answered, wishes to proceed. Full informed consent has been obtained. Will order Local anesthesia. Will send Cipro 500mg. Discussed the medication side effects, and the patient will monitor closely for these, as well as for symptom improvement. If severe side effects occur, the medication should be stopped and the office notified. Ordered: Urology Procedure Order US Renal 2. Flank pain (R10.9: Unspecified abdominal pain) Pt states that her pain has been going on for a while and its off and on. Pt states that the last time she had pain it was in her kidneys and found out she had an infection. Pt states that when she voids her pain does not worsen or subside. Pt states the pain gets worse at night time and when she's up on her feet a long time for work. advised pt sx do not sound highly suspicious for etiology but if any abnormalities noted on TISHA may proceed w CT. Ordered: Urology Procedure Order US Renal 3. Mixed incontinence (N39.46: Mixed incontinence) S/P Cysto/Ureteral Stents prior to surgery by Dr. De Los Santos 02/15/22. 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 She wears liners, 2 a day, dribbles. Pt states when she had a UD in the past, it had helped with her urinary symptoms. will reassess after cysto/UD. if persists can discuss tx options at length. Ordered: Urology Procedure Order US Renal Orders: ciprofloxacin, 500 mg = 1 tab(s), Oral, Daily, Take one tab day before procedure, take one tab after procedure, X 2 day(s), # 2 tab(s), Refills(s) 0, Pharmacy: [facility]/pharmacy #[id number], 170, cm, 10/30/22 10:53:00 EDT, Height/Length Dosing, 86.5, kg, 10/30/22 10:53:00 EDT,... Measure Post Void residual urine and/or bladder capacity by US- non-imaging [id number] Follow-up With When Contact Information AMELIE ESPARZA PA-C, URL In 8 weeks [address] [place] [address] Additional Instructions: after Cysto w/ Dr. Martinez Patient Education Cystoscopy Documentation recorded by the scribisis Estrada accurately reflects the services(s) I performed and decisions made by me. Authentic (more content not included)... [facility] Comment on above: Result Comment: Elec tronically Signed By: AMELIE ESPARZA PA-C\.br\Date and Time Signed: 10/30/22 12:34 EDT\.br\Electronically Co-Signed By: Lamar Estrada.br\Date and Time Co-Signed: 10/30/22 11:29 EDT 10-30-2022 [facility] Discharg e instructions Patient Education 10/30/2022 11:19:09 Cystoscopy Cystoscopy Cystoscopy is a procedure that is used to help diagnose and sometimes treat conditions that affect the lower urinary tract. The lower urinary tract includes the bladder and the urethra. The urethra is the tube that drains urine from the bladder. Cystoscopy is done using a thin, tube-shaped instrument with a light and camera at the end (cystoscope). The cystoscope may be hard or flexible, depending on the goal of the procedure. The cystoscope is inserted through the urethra, into the bladder. Cystoscopy may be recommended if you have: Urinary tract infections that keep coming back. Blood in the urine (hematuria). An inability to control when you urinate (urinary incontinence) or an overactive bladder. Unusual cells found in a urine sample. A blockage in the urethra, such as a urinary stone. Painful urination. An abnormality in the bladder found during an intravenous pyelogram (IVP) or CT scan. Cystoscopy may also be done to remove a sample of tissue to be examined under a microscope (biopsy). Tell a health care provider about: Any allergies you have. All medicines you are taking, including vitamins, herbs, eye drops, creams, and niot-khh-nwfwgym medicines. Any problems you or family members have had with anesthetic medicines. Any blood disorders you have. Any surgeries you have had. Any medical conditions you have. Whether you are or may be . What are the risks? Generally, this is a safe procedure. However, problems may occur, including: Infection. Bleeding. Allergic reactions to medicines. Damage to other structures or organs. What happens before the procedure? Medicines Ask your health care provider about: Changing or stopping your regular medicines. This is especially important if you are taking diabetes medicines or blood thinners. Taking medicines such as aspirin and ibuprofen. These medicines can thin your blood. Do not take these medicines unless your health care provider tells you to take them. Taking qvnp-npu-lszzcfe medicines, vitamins, herbs, and supplements. Tests You may have an exam or testing, such as: X-rays of the bladder, urethra, or kidneys. CT scan of the abdomen or pelvis. Urine tests to check for signs of infection. General instructions Follow instructions from your health care provider about eating or drinking restrictions. Ask your health care provider what steps will be taken to help prevent infection. These steps may include: ?Washing skin with a germ-killing soap. ?Taking antibiotic medicine. Plan to have a responsible adult take you home from the hospital or clinic. What happens during the procedure? You will be given one or more of the following: ?A medicine to help you relax (sedative). ?A medicine to numb the area (local anesthetic). The area around the opening of your urethra will be cleaned. The cystoscope will be passed through your urethra into your bladder. Germ-free (sterile) fluid will flow through the cystoscope to fill your bladder. The fluid will stretch your bladder so that your health care provider can clearly examine your bladder espinosa. Your doctor will look at the urethra and bladder. Your doctor may take a biopsy or remove stones. The cystoscope will be removed, and your bladder will be emptied. The procedure may vary among health care providers and hospitals. What can I expect after the procedure? After the procedure, it is common to have: Some soreness or pain in your abdomen and urethra. Urinary symptoms. These include: ?Mild pain or burning when you urinate. Pain should stop within a few minutes after you urinate. This may last for up to 1 week. ?A small amount of blood in your urine for several days. ?Feeling like you need to urinate but producing only a small amount of urine. Follow these instructions at home: Medicines Take nuac-xyo-qkcdthy and prescription medicines only as told by your health care provider. If you were prescribed an antibiotic medicine, take it as told by your health care provider. Do not stop taking the antibiotic even if you start to feel better. General instructions Return to your normal activities as told by your health care provider. Ask your health care provider what activities are safe for you. If you were given a sedative during the procedure, it can affect you for several hours. Do not drive or operate machinery until your health care provider says that it is safe. Watch for any blood in your urine. If the amount of blood in your urine increases, call your health care provider. Follow instructions from your health care provider about eating or drinking restrictions. If a tissue sample was removed for testing (biopsy) during your procedure, it is up to you to get your test results. Ask your health care provider, or the department that is doing the test, when your results will be ready. Drink enough fluid to keep your urine pale yellow. Keep all follow-up visits. This is important. Contact a health care provider if: You have pain that gets worse or does not get better with medicine, especially pain when you urinate. You have trouble urinating. You have more blood in your urine. Get help right away if: You have blood clots in your urine. You have abdominal pain. You have a fever or chills. You are unable to urinate. Summary Cystoscopy is a procedure that is used to help diagnose and sometimes treat conditions that affect the lower urinary tract. Cystoscopy is done using a thin, tube-shaped instrument with a light and camera at the end. After the procedure, it is common to have some soreness or pain in your abdomen and urethra. Watch for any blood in your urine. If the amount of blood in your urine increases, call your health care provider. If you were prescribed an antibiotic medicine, take it as told by your health care provider. Do not stop taking the antibiotic even if you start to feel better. This information is not intended to replace advice given to you by your health care provider. Make sure you discuss any questions you have with your health care provider. Document Revised: 12/20/2021 Document Reviewed: 11/18/2020 [employer] Patient Education 2022 [employer]. Follow Up Care 08/31/2022 13:02:06 With:FRED DUNCAN, AMELIE Ch, URL Address: [facility] [address] [facility] [place] [address] When:Within 8 Week(s) Comments:after Cysto w/ Dr. Martinez [facility] 10-30-2022 Note Urology Cystoscopy Cystoscopy is a procedure that is used to help diagnose and sometimes treat conditions that affect the lower urinary tract. The lower urinary tract includes the bladder and the urethra. The urethra is the tube that drains urine from the bladder. Cystoscopy is done using a thin, tube-shaped instrument with a light and camera at the end (cystoscope). The cystoscope may be hard or flexible, depending on the goal of the procedure. The cystoscope is inserted through the urethra, into the bladder. Cystoscopy may be recommended if you have: ? Urinary tract infections that keep coming back. ? Blood in the urine (hematuria). ? An inability to control when you urinate (urinary incontinence) or an overactive bladder. ? Unusual cells found in a urine sample. ? A blockage in the urethra, such as a urinary stone. ? Painful urination. ? An abnormality in the bladder found during an intravenous pyelogram (IVP) or CT scan. Cystoscopy may also be done to remove a sample of tissue to be examined under a microscope (biopsy). Tell a health care provider about: ? Any allergies you have. ? All medicines you are taking, including vitamins, herbs, eye drops, creams, and apaw-uyr-sjfcsye medicines. ? Any problems you or family members have had with anesthetic medicines. ? Any blood disorders you have. ? Any surgeries you have had. ? Any medical conditions you have. ? Whether you are or may be . What are the risks? Generally, this is a safe procedure. However, problems may occur, including: ? Infection. ? Bleeding. ? Allergic reactions to medicines. ? Damage to other structures or organs. What happens before the procedure? Medicines Ask your health care provider about: ? Changing or stopping your regular medicines. This is especially important if you are taking diabetes medicines or blood thinners. ? Taking medicines such as aspirin and ibuprofen. These medicines can thin your blood. Do not take these medicines unless your health care provider tells you to take them. ? Taking nvsw-zaa-lphhdvh medicines, vitamins, herbs, and supplements. Tests You may have an exam or testing, such as: ? X-rays of the bladder, urethra, or kidneys. ? CT scan of the abdomen or pelvis. ? Urine tests to check for signs of infection. General instructions ? Follow instructions from your health care provider about eating or drinking restrictions. ? Ask your health care provider what steps will be taken to help prevent infection. These steps may include: ? Washing skin with a germ-killing soap. ? Taking antibiotic medicine. ? Plan to have a responsible adult take you home from the hospital or clinic. What happens during the procedure? ? You will be given one or more of the following: ? A medicine to help you relax (sedative). ? A medicine to numb the area (local anesthetic). ? The area around the opening of your urethra will be cleaned. ? The cystoscope will be passed through your urethra into your bladder. ? Germ-free (sterile) fluid will flow through the cystoscope to fill your bladder. The fluid will stretch your bladder so that your health care provider can clearly examine your bladder espinosa. ? Your doctor will look at the urethra and bladder. Your doctor may take a biopsy or remove stones. ? The cystoscope will be removed, and your bladder will be emptied. The procedure may vary among health care providers and hospitals. What can I expect after the procedure? After the procedure, it is common to have: ? Some soreness or pain in your abdomen and urethra. ? Urinary symptoms. These include: ? Mild pain or burning when you urinate. Pain should stop within a few minutes after you urinate. This may last for up to 1 week. ? A small amount of blood in your urine for several days. ? Feeling like you need to urinate but producing only a small amount of urine. Follow these instructions at home: Medicines ? Take ebau-vwy-oxffqcp and prescription medicines only as told by your health care provider. ? If you were prescribed an antibiotic medicine, take it as told by your health care provider. Do not stop taking the antibiotic even if you start to feel better. General instructions ? Return to your normal activities as told by your health care provider. Ask your health care provider what activities are safe for you. ? If you were given a sedative during the procedure, it can affect you for several hours. Do not drive or operate machinery until your health care provider says that it is safe. ? Watch for any blood in your urine. If the amount of blood in your urine increases, call your health care provider. ? Follow instructions from your health care provider about eating or drinking restrictions. ? If a tissue sample was removed for testing (biopsy) during your procedure, it is up to you to get your test results. Ask your health care provider, or the department th (more content not included)... [facility] 11-14-2021 Miscellaneous Notes Informed pt of Dr Ward's message. Pt verbalized understanding and denies further needs at this time. Jian De La Cruz RN ----- Message from Alina Barros RN sent at 11/13/2021 1:26 PM EDT ----- ----- Message ----- From: Paolo Ward MD Sent: 11/11/2021 6:10 AM EDT To: Alina Barros RN [facility] [employer]. Can you please call pt and let her know that the iron profile is normal? No change in the recommendation. Thanks, SJK documented in this encounter [facility] 11-10-2021 Note HNO ID: [id number] Author: Paolo Ward MD Service: ? Author Type: Physician Type: Progress Notes Filed: 11/10/2021 11:27 AM Note Text: HEMATOLOGY FOLLOW UP Elements in this clinic note that are critical to medical decision making have been carefully reviewed and included from my prior clinic note dated: September 28, 2021 November 10, 2021 PCP and other physicians involved in patient's care: Blade Crews Sr (PCP) DIAGNOSES: Iron deficiency without anemia HEMATOLOGICAL HISTORY: ? Presented with bruising since November 2020. Initially, it was on the left lower extremity and inner thigh. No history of trauma. This progressed to the outside part of the leg, chest and arms. She started taking topiramate since September 2020. No previous use of aspirin but admits to use of naproxen for abdominal pain. She could not recollect the last dose. She reports long standing bleeding gums since childhood. She reports bright red blood per rectum and a colonoscopy in 2019 that was normal. No current GI, bleed, epistaxis, join bleeds or hemoptysis. No prior transfusions. Menses are heavy but last for 2-3 days. ? On my initial evaluation in May 2021, PT, PTT, TT, and fibrinogen were normal. CBC was within normal hemoglobin and platelet count. Iron studies showed a ferritin of 14.6 confirming iron deficiency without anemia. Recommendation was a GI referral and oral iron trial. ? May 31, 2021 started oral iron with resulting improvement in energy levels and resolution of easy bruising ? September 20, 2021 EGD and colonoscopy (Dr. Quiros) notable for internal hemorrhoids but otherwise normal ? October 06, 2021 Monoferric 1 g (decrease in ferritin levels despite adequate oral iron) INTERVAL HISTORY: Neel comes back for a follow up. Since last visit, she has noticed an improvement in her energy levels. She still feels fatigued but is overall better. No new symptoms. She continues to take ibuprofen as needed. Skin bruising has resolved. ROS is negative except that mentioned in HPI PAST MEDICAL SURGICAL FAMILY AND SOCIAL HISTORY: She has a history of ?Epilepsy, since childhood; normal MRI brain in October 2019; follows with neurology ?Iron deficiency, GI work up pending ?Asthma, controlled ??Irritable bowel syndrome Previous surgeries include urethral stricture dilatation and colonoscopy. Family history of bleeding problem in her mother but she cannot provide more details. She was born in [place] and has lived in [place] in the past. She reports occasional smoking - cigars that are dipped in cognac - last use a month back. Occasional alcohol use. No other substance abuse reported. She lives with her with 5 children. She is not working now but used to work at [employer] (was laid off during ). MEDICATIONS AND ALLERGIES: Reviewed PHYSICAL EXAM BP 112/68 Pulse (!) 59 Temp 36.6 ?C (97.8 ?F) (Temporal) Resp 16 Ht 167.6 cm (5' 5.98 ) Wt 84.7 kg (186 lb 12.8 oz) LMP 09/20/2021 SpO2 99% BMI 30.16 kg/m? Head atraumatic, no pallor, icterus or lymphadenopathy, lungs clear to auscultation, heart sounds regular, abdomen soft without distension or organomegaly, neuro grossly non-focal, skin without rash or bruising, extremities without swelling LABORATORY, IMAGING AND PATHOLOGY CBC reviewed Iron profile in process ASSESSMENT AND RECOMMENDATIONS 41 female with easy bruising and iron deficiency Her bruising is mild, intermittent, and self resolving. The bruising is likely related to prior use of naproxen and current use of ibuprofen. Basic work-up including PT, PTT, fibrinogen, CBC, CMP and inflammatory markers was normal. Platelet function screen was not done but the yield for doing that was deemed low. No additional testing needed. Reiterated need to stop NSAIDs and take acetaminophen instead. Initial labs also demonstrated iron deficiency without anemia. Potential etiology could be ulcers secondary to use of NSAIDs. Scopes were negative. Ferritin failed to improved despite oral iron. She then received a dose of monoferric last month. Iron profile is in process but symptoms have improved. If iron profile is better, she will follow up with us in 6-8 weeks for repeat labs. Paolo Ward MD I spent a total of 25 minutes on the date of the service which included preparing to see the patient, [id number] patient care, completing clinical documentation, obtaining and/or reviewing separately obtained history, performing a medically appropriate examination, counseling and educating the patient/family/caregiver, ordering medications, tests, or procedures, independently interpreting results (not separately reported) and communicating results to the patient/family/caregiver. CC: Blade Crews Sr. [facility] 10-06-2021 Miscellaneous Notes 1st report of treatment-Non oncology regimen (Monoferric) Patient has [employer] therefore no FA is required documented in this encounter [facility] 09-29-2021 Miscellaneous Notes Patient has been scheduled for Monoferric on 10/06 and follow up 11/10. Patient has been notified. Vanna Villar I spoke with the patient regarding the iron profile results. Ferritin has decreased from 33 to 22 despite adequate oral supplementation. My recommendation is to stop oral iron and do a dose of Monoferric next week. Patient is agreeable with the plan. Orders have been placed. PSS Please schedule an appointment for next Saturday for an iron infusion. No appointment needed with me. I will see the patient back in 6 weeks for repeat assessment with labs. Thanks Paolo Ward MD documented in this encounter [facility] 09-28-2021 Note HNO ID: [id number] Author: Paolo Ward MD Service: ? Author Type: Physician Type: Progress Notes Filed: 09/28/2021 2:23 PM Note Text: HEMATOLOGY FOLLOW UP Elements in this clinic note that are critical to medical decision making have been carefully reviewed and included from my prior clinic note dated: August 14, 2021 September 28, 2021 PCP and other physicians involved in patient's care: Blade Crews Sr (PCP) DIAGNOSES: Iron deficiency without anemia HEMATOLOGICAL HISTORY: ? Presented with bruising since November 2020. Initially, it was on the left lower extremity and inner thigh. No history of trauma. This progressed to the outside part of the leg, chest and arms. She started taking topiramate since September 2020. No previous use of aspirin but admits to use of naproxen for abdominal pain. She is a poor historian and cannot recollect the last dose. She reports long standing bleeding gums since childhood. She reports bright red blood per rectum and a colonoscopy in 2019 that was normal. No current GI, bleed, epistaxis, join bleeds or hemoptysis. No prior transfusions. ? On my initial evaluation in May 2021, PT, PTT, TT, and fibrinogen were normal. CBC was within normal hemoglobin and platelet count. Iron studies showed a ferritin of 14.6 confirming iron deficiency without anemia. Recommendation was a GI referral and oral iron trial. ? May 31, 2021 started oral iron with resulting improvement in energy levels and resolution of easy bruising ? September 20, 2021 EGD and colonoscopy (Dr. Quiros) notable for internal hemorrhoids but otherwise normal INTERVAL HISTORY: Neel comes back for a follow up. Overall doing well. She is again taking ibuprofen with return of some easy bruisability. She takes this for nonspecific GI pain. No immanuel GI or bleeding. Scopes last week were notable for hemorrhoids but otherwise were normal. ROS is negative except that mentioned in HPI PAST MEDICAL SURGICAL FAMILY AND SOCIAL HISTORY: She has a history of ?Epilepsy, since childhood; normal MRI brain in October 2019; follows with neurology ?Iron deficiency, GI work up pending ?Asthma, controlled ??Irritable bowel syndrome Previous surgeries include urethral stricture dilatation and colonoscopy. Family history of bleeding problem in her mother but she cannot provide more details. She was born in [place] and has lived in [place] in the past. She reports occasional smoking - cigars that are dipped in cognac - last use a month back. Occasional alcohol use. No other substance abuse reported. She lives with her with 5 children. She is not working now but used to work at [employer] (was laid off during -). MEDICATIONS AND ALLERGIES: Reviewed PHYSICAL EXAM BP 116/70 Pulse 65 Temp 36.4 ?C (97.6 ?F) (Temporal) Resp 16 Ht 167.6 cm (5' 5.98 ) Wt 86.5 kg (190 lb 12.8 oz) LMP 09/20/2021 SpO2 100% BMI 30.81 kg/m? Head atraumatic, no pallor, icterus or lymphadenopathy, lungs clear to auscultation, heart sounds regular, abdomen soft without distension or organomegaly, neuro grossly non-focal, skin without rash or bruising, extremities without swelling LABORATORY, IMAGING AND PATHOLOGY CBC reviewed Iron profile in process ASSESSMENT AND RECOMMENDATIONS 41 female with easy bruising and iron deficiency Her bruising is mild and self resolving. The bruising is likely related to prior use of naproxen and current use of ibuprofen. Basic work-up including PT, PTT, fibrinogen, CBC, CMP and inflammatory markers was normal. Platelet function screen was not done but the yield for doing that is low. No additional testing needed. Advised patient to stop NSAIDs and take acetaminophen instead. Initial labs also demonstrated iron deficiency without anemia. Potential etiology could be ulcers secondary to use of NSAIDs. Scopes were negative. Iron profile is in process. If ferritin is normal, okay to discontinue oral iron. If ferritin continues to be low, will recommend intravenous iron. Follow up in 3 months with repeat labs Paolo Ward MD I spent a total of 20 minutes on the date of the service which included preparing to see the patient, [id number] patient care, completing clinical documentation, obtaining and/or reviewing separately obtained history, performing a medically appropriate examination, counseling and educating the patient/family/caregiver, ordering medications, tests, or procedures, independently interpreting results (not separately reported) and communicating results to the patient/family/caregiver. CC: Blade Crews Sr. [facility] 09-28-2021 History of Presen t illness Narrative HEMATOLOGY FOLLOW UP Elements in this clinic note that are critical to medical decision making have been carefully reviewed and included from my prior clinic note dated: August 14, 2021 September 28, 2021 PCP and other physicians involved in patient's care: Blade Crews Sr (PCP) DIAGNOSES: Iron deficiency without anemia HEMATOLOGICAL HISTORY: Presented with bruising since November 2020. Initially, it was on the left lower extremity and inner thigh. No history of trauma. This progressed to the outside part of the leg, chest and arms. She started taking topiramate since September 2020. No previous use of aspirin but admits to use of naproxen for abdominal pain. She is a poor historian and cannot recollect the last dose. She reports long standing bleeding gums since childhood. She reports bright red blood per rectum and a colonoscopy in 2019 that was normal. No current GI, bleed, epistaxis, join bleeds or hemoptysis. No prior transfusions. On my initial evaluation in May 2021, PT, PTT, TT, and fibrinogen were normal. CBC was within normal hemoglobin and platelet count. Iron studies showed a ferritin of 14.6 confirming iron deficiency without anemia. Recommendation was a GI referral and oral iron trial. May 31, 2021 started oral iron with resulting improvement in energy levels and resolution of easy bruising September 20, 2021 EGD and colonoscopy (Dr. Quiros) notable for internal hemorrhoids but otherwise normal INTERVAL HISTORY: Neel comes back for a follow up. Overall doing well. She is again taking ibuprofen with return of some easy bruisability. She takes this for nonspecific GI pain. No immanuel GI or bleeding. Scopes last week were notable for hemorrhoids but otherwise were normal. ROS is negative except that mentioned in HPI PAST MEDICAL SURGICAL FAMILY AND SOCIAL HISTORY: She has a history of Epilepsy, since childhood; normal MRI brain in October 2019; follows with neurology Iron deficiency, GI work up pending Asthma, controlled ?Irritable bowel syndrome Previous surgeries include urethral stricture dilatation and colonoscopy. Family history of bleeding problem in her mother but she cannot provide more details. She was born in [place] and has lived in [place] in the past. She reports occasional smoking - cigars that are dipped in cognac - last use a month back. Occasional alcohol use. No other substance abuse reported. She lives with her with 5 children. She is not working now but used to work at [employer] (was laid off during ). MEDICATIONS AND ALLERGIES: Reviewed PHYSICAL EXAM BP 116/70 Pulse 65 Temp 36.4 C (97.6 F) (Temporal) Resp 16 Ht 167.6 cm (5' 5.98 ) Wt 86.5 kg (190 lb 12.8 oz) LMP 09/20/2021 SpO2 100% BMI 30.81 kg/m Head atraumatic, no pallor, icterus or lymphadenopathy, lungs clear to auscultation, heart sounds regular, abdomen soft without distension or organomegaly, neuro grossly non-focal, skin without rash or bruising, extremities without swelling LABORATORY, IMAGING AND PATHOLOGY CBC reviewed Iron profile in process ASSESSMENT AND RECOMMENDATIONS 41 female with easy bruising and iron deficiency Her bruising is mild and self resolving. The bruising is likely related to prior use of naproxen and current use of ibuprofen. Basic work-up including PT, PTT, fibrinogen, CBC, CMP and inflammatory markers was normal. Platelet function screen was not done but the yield for doing that is low. No additional testing needed. Advised patient to stop NSAIDs and take acetaminophen instead. Initial labs also demonstrated iron deficiency without anemia. Potential etiology could be ulcers secondary to use of NSAIDs. Scopes were negative. Iron profile is in process. If ferritin is normal, okay to discontinue oral iron. If ferritin continues to be low, will recommend intravenous iron. Follow up in 3 months with repeat labs Paolo Ward MD I spent a total of 20 minutes on the date of the service which included preparing to see the patient, [id number] patient care, completing clinical documentation, obtaining and/or reviewing separately obtained history, performing a medically appropriate examination, counseling and educating the patient/family/caregiver, ordering medications, tests, or procedures, independently interpreting results (not separately reported) and communicating results to the patient/family/caregiver. CC: Blade Crews Sr. documented in this encounter [facility] 09-20-2021 Procedure note [facility] 08-14-2021 Note HNO ID: [id number] Author: Paolo Ward MD Service: ? Author Type: Physician Type: Progress Notes Filed: 08/14/2021 1:58 PM Note Text: HEMATOLOGY FOLLOW UP Elements in this clinic note that are critical to medical decision making have been carefully reviewed and included from my prior clinic note dated: June 26, 2021 August 14, 2021 PCP and other physicians involved in patient's care: Blade Crews Sr (PCP) DIAGNOSES: Iron deficiency without anemia HEMATOLOGICAL HISTORY: ? Presented with bruising since November 2020. Initially, it was on the left lower extremity and inner thigh. No history of trauma. This progressed to the outside part of the leg, chest and arms. She started taking topiramate since September 2020. No previous use of aspirin but admits to use of naproxen for abdominal pain. She is a poor historian and cannot recollect the last dose. She reports long standing bleeding gums since childhood. She reports bright red blood per rectum and a colonoscopy in 2019 that was normal. No current GI, bleed, epistaxis, join bleeds or hemoptysis. No prior transfusions. ? On my initial evaluation in May 2021, PT, PTT, TT, and fibrinogen were normal. CBC was within normal hemoglobin and platelet count. Iron studies showed a ferritin of 14.6 confirming iron deficiency without anemia. Recommendation was a GI referral and oral iron trial. ? May 31, 2021 started oral iron with resulting improvement in energy levels and resolution of easy bruising INTERVAL HISTORY: Neel comes back for a follow up. Overall doing well. No new symptoms. Scopes to postponed due to a non-COVID related GI infection. This has resolved. ROS is negative except that mentioned in HPI PAST MEDICAL SURGICAL FAMILY AND SOCIAL HISTORY: She has a history of ?Epilepsy, since childhood; normal MRI brain in October 2019; follows with neurology ?Iron deficiency, GI work up pending ?Asthma, controlled ??Irritable bowel syndrome Previous surgeries include urethral stricture dilatation and colonoscopy. Family history of bleeding problem in her mother but she cannot provide more details. She was born in [place] and has lived in [place] in the past. She reports occasional smoking - cigars that are dipped in cognac - last use a month back. Occasional alcohol use. No other substance abuse reported. She lives with her with 5 children. She is not working now but used to work at [employer] (was laid off during COVID-19). MEDICATIONS AND ALLERGIES: Reviewed PHYSICAL EXAM BP 115/57 Pulse 65 Temp 36.2 ?C (97.1 ?F) (Temporal) Resp 16 Ht 167.6 cm (5' 5.98 ) Wt 88.7 kg (195 lb 9.6 oz) LMP 05/26/2021 SpO2 92% BMI 31.59 kg/m? Head atraumatic, no pallor, icterus or lymphadenopathy, lungs clear to auscultation, heart sounds regular, abdomen soft without distension or organomegaly, neuro grossly non-focal, skin without rash or bruising, extremities without swelling LABORATORY, IMAGING AND PATHOLOGY CBC reviewed Ferritin in process ASSESSMENT AND RECOMMENDATIONS 41 female with easy bruising and iron deficiency Her bruising has resolved. Basic work-up including PT, PTT, fibrinogen, CBC, CMP and inflammatory markers was normal. Platelet function screen was not done but the yield for doing that is low. This may have been related to prior use of naproxen but patient was not able to elicit a clear causal relationship on her history. Initial labs also demonstrated iron deficiency without anemia. Potential etiology could be ulcers secondary to use of NSAIDs. Scopes are still pending. Continue oral iron for now. Follow up in 6 weeks with labs prior. Paolo Ward MD I spent a total of 15 minutes on the date of the service which included preparing to see the patient, [id number] patient care, completing clinical documentation, obtaining and/or reviewing separately obtained history, performing a medically appropriate examination, counseling and educating the patient/family/caregiver, ordering medications, tests, or procedures, independently interpreting results (not separately reported) and communicating results to the patient/family/caregiver. CC: Blade Crews Sr. [facility] 08-14-2021 History of Presen t illness Narrative HEMATOLOGY FOLLOW UP Elements in this clinic note that are critical to medical decision making have been carefully reviewed and included from my prior clinic note dated: June 26, 2021 August 14, 2021 PCP and other physicians involved in patient's care: Blade Crews Sr (PCP) DIAGNOSES: Iron deficiency without anemia HEMATOLOGICAL HISTORY: Presented with bruising since November 2020. Initially, it was on the left lower extremity and inner thigh. No history of trauma. This progressed to the outside part of the leg, chest and arms. She started taking topiramate since September 2020. No previous use of aspirin but admits to use of naproxen for abdominal pain. She is a poor historian and cannot recollect the last dose. She reports long standing bleeding gums since childhood. She reports bright red blood per rectum and a colonoscopy in 2019 that was normal. No current GI, bleed, epistaxis, join bleeds or hemoptysis. No prior transfusions. On my initial evaluation in May 2021, PT, PTT, TT, and fibrinogen were normal. CBC was within normal hemoglobin and platelet count. Iron studies showed a ferritin of 14.6 confirming iron deficiency without anemia. Recommendation was a GI referral and oral iron trial. May 31, 2021 started oral iron with resulting improvement in energy levels and resolution of easy bruising INTERVAL HISTORY: Neel comes back for a follow up. Overall doing well. No new symptoms. Scopes to postponed due to a non-COVID related GI infection. This has resolved. ROS is negative except that mentioned in HPI PAST MEDICAL SURGICAL FAMILY AND SOCIAL HISTORY: She has a history of Epilepsy, since childhood; normal MRI brain in October 2019; follows with neurology Iron deficiency, GI work up pending Asthma, controlled ?Irritable bowel syndrome Previous surgeries include urethral stricture dilatation and colonoscopy. Family history of bleeding problem in her mother but she cannot provide more details. She was born in [place] and has lived in [place] in the past. She reports occasional smoking - cigars that are dipped in cognac - last use a month back. Occasional alcohol use. No other substance abuse reported. She lives with her with 5 children. She is not working now but used to work at [employer] (was laid off during COVID-19). MEDICATIONS AND ALLERGIES: Reviewed PHYSICAL EXAM BP 115/57 Pulse 65 Temp 36.2 C (97.1 F) (Temporal) Resp 16 Ht 167.6 cm (5' 5.98 ) Wt 88.7 kg (195 lb 9.6 oz) LMP 05/26/2021 SpO2 92% BMI 31.59 kg/m Head atraumatic, no pallor, icterus or lymphadenopathy, lungs clear to auscultation, heart sounds regular, abdomen soft without distension or organomegaly, neuro grossly non-focal, skin without rash or bruising, extremities without swelling LABORATORY, IMAGING AND PATHOLOGY CBC reviewed Ferritin in process ASSESSMENT AND RECOMMENDATIONS 41 female with easy bruising and iron deficiency Her bruising has resolved. Basic work-up including PT, PTT, fibrinogen, CBC, CMP and inflammatory markers was normal. Platelet function screen was not done but the yield for doing that is low. This may have been related to prior use of naproxen but patient was not able to elicit a clear causal relationship on her history. Initial labs also demonstrated iron deficiency without anemia. Potential etiology could be ulcers secondary to use of NSAIDs. Scopes are still pending. Continue oral iron for now. Follow up in 6 weeks with labs prior. Paolo Ward MD I spent a total of 15 minutes on the date of the service which included preparing to see the patient, [id number] patient care, completing clinical documentation, obtaining and/or reviewing separately obtained history, performing a medically appropriate examination, counseling and educating the patient/family/caregiver, ordering medications, tests, or procedures, independently interpreting results (not separately reported) and communicating results to the patient/family/caregiver. CC: Blade Crews Sr. documented in this encounter [facility] 06-26-2021 Note HNO ID: [id number] Author: Paolo Ward MD Service: ? Author Type: Physician Type: Progress Notes Filed: 06/26/2021 3:18 PM Note Text: HEMATOLOGY FOLLOW UP Elements in this clinic note that are critical to medical decision making have been carefully reviewed and included from my prior clinic note dated: May 29, 2021 June 26, 2021 PCP and other physicians involved in patient's care: Blade Crews Sr (PCP) DIAGNOSES: Easy bruising and iron deficiency HEMATOLOGICAL HISTORY: ? Presented with bruising since November 2020. Initially, it was on the left lower extremity and inner thigh. No history of trauma. This progressed to the outside part of the leg, chest and arms. She started taking topiramate since September 2020. No previous use of aspirin but admits to use of naproxen for abdominal pain. She is a poor historian and cannot recollect the last dose. She reports long standing bleeding gums since childhood. She reports bright red blood per rectum and a colonoscopy in 2019 that was normal. No current GI, bleed, epistaxis, join bleeds or hemoptysis. No prior transfusions. ? On my initial evaluation in May 2021, PT, PTT, TT, and fibrinogen were normal. CBC was within normal hemoglobin and platelet count. Iron studies showed a ferritin of 14.6 confirming iron deficiency without anemia. Recommendation was a GI referral and oral iron trial. INTERVAL HISTORY: Neel comes back for a follow up. She started oral iron once daily on 05-31-21. Since then, she has felt more energy. Bruising has since then resolved. No bruising today. No other sites of bleeding. Constipation is mild. Scopes scheduled this week. She reports menstrual bleeding every month for 2 days duration. She reports a previous history of ulcers but denies any heartburn today. ROS is negative except that mentioned in HPI PAST MEDICAL SURGICAL FAMILY AND SOCIAL HISTORY: She has a history of ?Epilepsy, since childhood; normal MRI brain in October 2019; follows with neurology ?Iron deficiency, GI work up pending ?Asthma, controlled ??Irritable bowel syndrome Previous surgeries include urethral stricture dilatation and colonoscopy. Family history of bleeding problem in her mother but she cannot provide more details. She was born in [place] and has lived in [place] in the past. She reports occasional smoking - cigars that are dipped in cognac - last use a month back. Occasional alcohol use. No other substance abuse reported. She lives with her with 5 children. She is not working now but used to work at [employer] (was laid off during ). MEDICATIONS AND ALLERGIES: Reviewed PHYSICAL EXAM BP 107/69 Pulse 69 Temp 36.4 ?C (97.6 ?F) (Temporal) Resp 16 Ht 167.6 cm (5' 5.98 ) Wt 89.6 kg (197 lb 9.6 oz) LMP 05/26/2021 SpO2 96% BMI 31.91 kg/m? Head atraumatic, no pallor, icterus or lymphadenopathy, lungs clear to auscultation, heart sounds regular, abdomen soft without distension or organomegaly, neuro grossly non-focal, skin without rash or bruising, extremities without swelling LABORATORY, IMAGING AND PATHOLOGY 12-29-20 Hemoglobin 11.6, MCV 88, platelets 241, WBC 5.1, differential normal, CMP normal PT 10.5, PTT 27.5 11-04-20 WSR 51, CRP 5.9, B12 328, MMA normal, folate 7, TSH 2 GEO negative, RPR nonreactive, Lyme antibody negative, SPEP without measurable M spike, serum and urine immunofixation without monoclonality 05-29-21 Hemoglobin 11.5, platelets 300 Ferritin 14.6, TIBC 417, saturation 13% PT, PTT, TT and fibrinogen normal Platelet screen inappropriately drawn ASSESSMENT AND RECOMMENDATIONS 41 female with easy bruising and iron deficiency Her bruising has resolved. Basic work-up including PT, PTT, fibrinogen, CBC, CMP and inflammatory markers was normal. Platelet function screen was not done but the yield for doing that is low. Initial labs also demonstrated iron deficiency without anemia. She has scopes planned for this week. Potential etiology could be ulcers secondary to use of NSAIDs. Continue oral iron for now. Follow up in 6 weeks with labs. Paolo Ward MD I spent a total of 16 minutes on the date of the service which included preparing to see the patient, [id number] patient care, completing clinical documentation, obtaining and/or reviewing separately obtained history, performing a medically appropriate examination, counseling and educating the patient/family/caregiver, ordering medications, tests, or procedures, independently interpreting results (not separately reported) and communicating results to the patient/family/caregiver. CC: Blade Crews Sr. [facility] 05-29-2021 Note HNO ID: [id number] Author: Paolo Ward MD Service: ? Author Type: Physician Type: Progress Notes Filed: 05/29/2021 4:39 PM Note Text: HEMATOLOGY INITIAL CONSULTATION May 29, 2021 REFERRAL REQUESTED BY: Blade Crews Sr PCP and other physicians involved in patient's care: Blade Crews Sr (PCP) REASON FOR CONSULTATION: Easy brusing HPI: this is a 41 year old female referred to the clinic for easy bruising. She endorses bruising that started 6 months ago. Initially, it was on the left lower extremity and inner thigh. No history of trauma. This progressed to the outside part of the leg, chest and arms. Over the last 6 months, the frequency increased. Bruising is intermittent. No bruising today, but was there last week. She does not have pictures to show me today. She started taking topiramate 8 months back. She is not on aspirin but admits to previous use of naproxen for abdominal pain. She cannot recollect her last dose. She reports long standing bleeding gums since childhood. She reports bright red blood per rectum and a colonoscopy in 2019 that was normal. No current GI, bleed, epistaxis, join bleeds or hemoptysis. No prior transfusions. Patient is a poor historian and does not recollect all details of her history. ROS is negative except that mentioned in HPI PAST MEDICAL SURGICAL FAMILY AND SOCIAL HISTORY: She has a history of ?Epilepsy, since childhood; normal MRI brain in October 2019; follows with neurology ?Asthma, controlled ??Irritable bowel syndrome Previous surgeries include urethral stricture dilatation and colonoscopy. Family history of bleeding problem in her mother but she cannot provide more details. She was born in [place] and has lived in [place] in the past. She reports occasional smoking - cigars that are dipped in cognac - last use a month back. Occasional alcohol use. No other substance abuse reported. She lives with her with 5 children. She is not working now but used to work at [employer] (was laid off during -). MEDICATIONS AND ALLERGIES: Reviewed PHYSICAL EXAM BP 115/68 Pulse 67 Temp 36.2 ?C (97.2 ?F) (Temporal) Resp 18 Ht 167.6 cm (5' 6 ) Wt 89.8 kg (198 lb) LMP 05/26/2021 BMI 31.96 kg/m? Head atraumatic, no pallor, icterus or lymphadenopathy, lungs clear to auscultation, heart sounds regular, abdomen soft without distension or organomegaly, neuro grossly non-focal, skin without rash or bruising, extremities without swelling LABORATORY, IMAGING AND PATHOLOGY 12-29-20 Hemoglobin 11.6, MCV 88, platelets 241, WBC 5.1, differential normal, CMP normal PT 10.5, PTT 27.5 -16-21 WSR 51, CRP 5.9, B12 328, MMA normal, folate 7, TSH 2 GEO negative, RPR nonreactive, Lyme antibody negative, SPEP without measurable M spike, serum and urine immunofixation without monoclonality ASSESSMENT AND RECOMMENDATIONS 41 female with easy bruising The differential for easy bruising is broad. Differentials in her case could be medication induced (topiramate, naproxen) versus a bleeding disorder with a mild phenotype (given her history of gum bleeding since childhood). I will start with some basic work-up including PT, PTT, fibrinogen, CBC, CMP, inflammatory markers and platelet function screen. Further work-up and recommendations will be dependent on the above testing. Follow-up in 4 to 5 weeks to review above testing results. Paolo Ward MD I spent a total of 50 minutes on the date of the service which included preparing to see the patient, [id number] patient care, completing clinical documentation, obtaining and/or reviewing separately obtained history, performing a medically appropriate examination, counseling and educating the patient/family/caregiver, ordering medications, tests, or procedures, independently interpreting results (not separately reported) and communicating results to the patient/family/caregiver. CC: Blade Crews Sr. [facility] Evaluation + Plan note Future Appointments Appointment Date:01/08/2023 03:00:00 PM Scheduled Provider:AMELIE ESPARZA PA-C Location:[facility] Appointment Type:URO Office Visit [facility] Evaluation note Diagnosis Iron deficiency anemia, unspecified iron deficiency anemia type- Primary [facility] Work Phone: Evaluation note* Diagnosis Iron deficiency anemia, unspecified iron deficiency anemia type- Primary Easy bruisability Other symptoms involving skin and integumentary tissues [facility] Diagnosis Iron deficiency anemia, unspecified iron deficiency anemia type [facility] Diagnosis Onset Date Resolution Status Iron deficiency anemia acute [facility] Work Phone: Evaluation note* Diagnosis Iron deficiency anemia, unspecified iron deficiency anemia type- Primary [facility] in [facility] Author Bryan Quiros [facility] September 20, 2021 7:58am Note Date/Time September 20, 2021 7:54a m [facility] [address] [place] [address] Gastroenterology H&P Signed Patient: Neel Garcia MR#: [id number] : 1980 Acct:[id number] Age/Sex: 41 / F Adm Date: 2 Loc: Room: Type: [facility] Attending Dr: Bryan Quiros DO Copies to: DO Bryan Howard Jr, DO~ Date of Service: 09/20/2021 Gastroenterology HPI History of Present Illness HPI: Ms. Garcia is a 41 year old female with iron deficiency anemia, no outward signs of bleeding. Last EGD and colonoscopy were [address] Baig. Review of Systems Review of Systems All other systems reviewed & are negative unless noted below or in HPI PMFSH Vaccinated for COVID-19?: No Medical History Asthma IBS (irritable bowel syndrome) Seizures Surgical History H/O tubal ligation Previous section Family History Mother Cervical cancer Father Kidney failure Grandparent Pacemaker Grandparent Pancreatic cancer Social History Tobacco Type: cigars Substance Use Type: None Meds Home and Active Medications Home and Active Medications: Home Medications fluticasone 100 mcg-salmeterol 50 mcg/dose blistr powdr for inhalation (Advair Diskus) 1 puff INHALATION Q12H 04/28/18 [History Confirmed 09/19/21] ferrous sulfate 325 mg (65 mg iron) tablet 325 mg PO DAILY 06/27/21 [History Confirmed 09/19/21] topiramate 50 mg capsule sprinkle,extended release 24 hr 50 mg PO BID 06/27/21 [History Confirmed 09/19/21] trazodone 50 mg tablet 50 mg PO HS PRN 06/27/21 [History Confirmed 09/19/21] Active Medications Sodium Chloride (0.9% Sodium Chloride 1,000 Ml) 1,000 mls @ 20 mls/hr IV .Q24H MARY Stop: 09/20/22 06:44 Last Admin: 09/20/21 06:47 Dose: 20 mls/hr Documented by: Sodium Chloride (Sodium Chloride 0.9 % 10 Ml Syringe) 0 ml IV-PUSH PRN PRN PRN Reason: Flush Stop: 09/20/22 06:30 Exam Physical Exam Vital Signs: Temp Pulse BP Pulse Ox 98.5 F 77 117/81 100 09/20/21 06:49 09/20/21 06:49 09/20/21 06:49 09/20/21 06:49 Const General: no acute distress Orientation: alert and oriented x3 Resp Effort & Inspection: normal respiratory effort Auscultation: clear to auscultation bilaterally Cardio Rate: regular rate Rhythm: regular rhythm GI Palpation: soft and nontender Auscultation: normal bowel sounds Extrem General: no edema Results Labs Labs: Laboratory Results - last 24 hr 09/20/21 06:43 HCG, Quant < 0.60 A&P - Gastroenterology Assessment/Plan (1) Iron deficiency anemia: Code(s): D50.9 - Iron deficiency anemia, unspecified Status: Acute Plan EGD and colonoscopy for evaluation Documented By: Bryan Quiros Jr, 09/20/21 075 1 Signed By: <Electronically signed by Bryan Quiros Jr, DO> 09/20/21 0758 [facility] Work Phone: Hospital course Narrative No data available for this section [facility] progress note No data available for this section [facility] Reason for Referral Status Reason Specialty Diagnoses / Procedures Referre d By Contact Referred To Contact Open Radiology Diagnoses Intractable epilepsy without status epilepticus, unspecified epilepsy type (HCC) Procedures MRI BRAIN W WO CONTRAST Alex Little MD [address] [place] [address] Assessments Diagnosis Intractable epilepsy without status epilepticus, unspecified epilepsy type (HCC) Advance Directives No Advanced Directives Records FoundDocuments on File Type Date 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 Advance Directives and Living Will Power of Assisted Living Coordinator Advance Directive Response Recorded Date/ Time Advance Directives No April 28, 2018 8:25am Summary Purpose Family History No Family History Records Found Relationship Condition Age at Onset Recorded Date/T adeola Not Specified Malignant neoplasm of cervix Unknown father Renal failure Unknown grandparent Presence of cardiac pacemaker Unknown grandparent Malignant neoplasm of pancreas Unknown Chief Complaint and Reason for Visit Chief Complaint Iron Deficiency Anem ia Iron Deficiency Anemia Chief Complaint Iron Deficiency Anem ia Iron Deficiency Anemia Iron Deficiency Anemia Chief Complaint Iron Deficiency Anem ia Iron Deficiency Anemia Iron Deficiency Anemia Iron Deficiency Anemia Reason for Visit Iron deficiency anem ia Medications Administered Section Inactive Administered Medications - up to 3 most recent administrations Medication Order MAR Action Action Date Dose Rate Site acetaminophen 650 mg tab(s) (TYLENOL) 650 mg, ORAL, ONCE, 1 dose, On Sat10/06/21 at 1400, Give 30 minutes prior to infusion. No more than 4000 mg of acetaminophen should be given per day (FROM ALL SOURCES), If ordered PRN for pain, patient/guardian may elect to receive this medication for higher pain levels INSTEAD of the opioid, if preferred: N/A Given 10/06/2021 1:49 PM EDT 650 mg diphenhydrAMINE 50 mg (BENADRYL) 50 mg, ORAL, ONCE, 1 dose, On Sat10/06/21 at 1400, Give 30 minutes prior to infusion. Given 10/06/2021 1:49 PM EDT 50 mg ferric derisomaltose 1,000 mg in NaCl 0.9% 100 mL (MONOFERRIC) 1,000 mg (set by rule on 09/29/2021 8:50 AM), INTRAVENOUS, Administer over 45 Minutes, ONCE, 1 dose, On Sat10/06/21 at 1400, Monitor patient for hypersensitivity reactions during the infusion and for 30 minutes after infusion is complete. EXP 0 10/05/21 TV 120 mL EXP: (8 HR) New Bag/Syringe/Bottle 10/06/2021 2:20 PM EDT 1,000 mg Additional Source Comments Reason for Visit (unrecogniz ed section and content) Status Reason Specialty Diagnoses / Procedures Referre d By Contact Referred To Contact Closed Radiology Diagnoses Epilepsy, unspecified, not intractable, without status epilepticus Procedures HC MRI-BRAIN WO & W CONTRAST Anabel, Alex Harris MD [address] [facility] [address] [place] [address] [facility] [address] [place] [address] Reason Comments Anemia 1 month follow up Reason Comments Anemia Reason Comments Results Reason Comments Benefits Investigation Specialty Diagnoses / Procedures Referred By Contac t Referred To Contact Diagnoses Iron deficiency anemia, unspecified iron deficiency anemia type Procedures INJECTION, FERRIC DERISOMALTOSE, 10 MG Paolo Ward MD [address] [place] [address] [place] [address] [facility] [address] [place] [address] Referral ID Status Reason Start Date Expiration Date V isits Requested Visits Authorized [id number] Authorized 09/29/2021 01/02/2022 1 1 INFORMATION SOURCE (unrecogn ized section and content) DATE CREATED AUTHOR 11/12/2019 [facility] DATE CREATED AUTHOR AUTHOR'S ORGANIZ ATION 09/24/2021 [facility] DATE CREATED AUTHOR AUTHOR'S ORGANIZ ATION 11/16/2021 [facility] DATE CREATED AUTHOR AUTHOR'S ORGANIZ ATION 06/05/2022 [facility] DATE CREATED AUTHOR AUTHOR'S ORGANIZ ATION 01/09/2023 Shrestha [place] [facility] DATE CREATED AUTHOR AUTHOR'S ORGANIZ ATION 08/28/2023 [facility] EPIC Source Comments (unrecognize d section and content) In the event this informatio n is protected by the Federal Confidentiality of Alcohol and Drug Abuse Patient Records regulations: The Federal rules restrict any use of the information to criminally investigate or prosecute any alcohol or drug abuse patient.[facility] Center[facility] the event this information is protected by the Federal Confidentiality of Alcohol and Drug Abuse Patient Records regulations: The Federal rules restrict any use of the information to criminally investigate or prosecute any alcohol or drug abuse patient.[facility] CenterIn the event this information is protected by the Federal Confidentiality of Alcohol and Drug Abuse Patient Records regulations: The Federal rules restrict any use of the information to criminally investigate or prosecute any alcohol or drug abuse patient.[facility] CenterIn the event this information is protected by the Federal Confidentiality of Alcohol and Drug Abuse Patient Records regulations: The Federal rules restrict any use of the information to criminally investigate or prosecute any alcohol or drug abuse patient.[facility] CenterIn the event this information is protected by the Federal Confidentiality of Alcohol and Drug Abuse Patient Records regulations: The Federal rules restrict any use of the information to criminally investigate or prosecute any alcohol or drug abuse patient.[facility] CenterIn the event this information is protected by the Federal Confidentiality of Alcohol and Drug Abuse Patient Records regulations: The Federal rules restrict any use of the information to criminally investigate or prosecute any alcohol or drug abuse patient.[facility] CenterIn the event this information is protected by the Federal Confidentiality of Alcohol and Drug Abuse Patient Records regulations: The Federal rules restrict any use of the information to criminally investigate or prosecute any alcohol or drug abuse patient.[facility] Teams (unrecognized sec tion and content) [employer] Fire Control Man Relationship Specialty Start Date End Date Isiah Evangelista [address] [place] [address] Referring BLAST SETTER 07/29/18 [employer] Fire Control Man Relationship Specialty Start Date End Date Blade Crews Sr. [address] [place] [address] PCP - General Family Practice 05/29/21 Isiah Evangelista [address] [place] [address] Referring BLAST SETTER 07/29/18 Team Status: Inactive Member Role Status Dates Blade Crews DO Primary Care Provider Active Bryan Quiros DO Attending Provider Active Team Status: Active Member Role Status Dates Blade Crews DO Primary Care Provider Active [employer] Fire Control Man Relationship Specialty Start Date End Date Blade Crews Sr. [address] [place] [address] PCP - General Family Practice 05/29/21 Isiah Evangelista [address] [place] [address] Referring BLAST SETTER 07/29/18 [employer] Fire Control Man Relationship Specialty Start Date End Date Blade Crews Sr. [address] [place] [address] PCP - General Family Practice 05/29/21 Isiah Evangelista [address] [place] [address] Referring BLAST SETTER 07/29/18 [employer] Art[employer] Fire Control Man Relationship Specialty Start Date End Date Blade Crews Sr. [address] [facility] [place] [address] PCP - General Family Practice 05/29/21 Isiah Evangelista[address] [place] [phone] Referring BLAST SETTER 07/29/18 [employer] Artillery Fire Control Man Relationship Specialty Start Date End Date Blade Crews Sr. [address] [facility] [place] [address] PCP - General Family Practice 05/29/21 Isiah Evangelista[address] [place] [phone] Referring BLAST SETTER 07/29/18 Goals (unrecognized section and content) Goals may be documented in a n alternate sectionGoals may be documented in an alternate section No data available for this section No data available for this section FOR RECORDS PERTAINING TO PATIENTS WHO ARE OR HAVE BEEN ENROLLED IN A CHEMICAL DEPENDENCY/SUBSTANCEABUSE PROGRAM, SOME INFORMATION MAY BE OMITTED. This clinical summary was aggregated from multiple sources. Caution should be exercised in using it in the provision of clinical care. This summary normalizes information from multiple sources, and as a consequence, information in this document may materially change the coding, format and clinical context of patient data. In addition, data may be omitted in some cases. CLINICAL DECISIONS SHOULD BE BASED ON THE PRIMARY CLINICAL RECORDS. [employer] [facility]. provides no warranty or guarantee of the accuracy or completeness of information in this document.
--- NOTE | 2023-09-21 14:32 | ED_ITS ---
HPI HPI - General Adult General Chief complaint: Abdominal Pain Stated complaint: ABDOMINAL/BACK PAIN Time Seen by Provider: 09/21/23 14:21 Source: patient Mode of arrival: walk-in History of Present Illness HPI narrative: Patient is a 43-year-old female presents to the ER with concerns of left-sided neck and shoulder pain. Patient states she has had symptoms off and on for several months, she had seen her family doctor and underwent an EMG. She is unsure of the results but has been wearing wrist cock-up splints at night to try and help with the numbness in her fingers. Patient notes pain worsening today, she denies any fever or illness. She denies injury. She has not yet tried to get in with orthopedics but states her family doctor was working on a referral to pain management. Patient has taken meloxicam in the past but with minimal relief. She reports pain left side of her neck left shoulder radiating to the left arm along the dorsal surface and into her fingers with occasional numbness and tingling. Patient denies symptoms in the right arm. She denies any chest pain or back pain. She denies any shortness of breath. She reports intermittent lower abdominal pain but states this pain is usually there when her neck and shoulder pain are very severe. Patient appears uncomfortable guarding the left arm but in no distress with conversation at bedside. Location: Reports neck, left and upper extremity Radiation: Reports neck and extremity; Denies back or abdomen Quality: Denies burning Pain Consistency: Reports constant and intermittent Relieving factors: Reports none Exacerbating factors: Reports none and movement Treatments prior to arrival: Reports NSAID Related Data Home Medications ?Medication ?Instructions ?Recorded ?Confirmed escitalopram oxalate 10 mg tablet mg 09/21/23 hyoscyamine sulfate 0.375 mg mg PO 09/21/23 tablet,extended release,12 hr meloxicam 15 mg tablet mg 09/21/23 Previous Rx's ?Medication ?Instructions ?Recorded prednisone 20 mg tablet 40 mg (2 x 20 mg) PO DAILY 5 days 09/21/23 #10 tabs tizanidine 4 mg capsule 4 mg PO TID PRN muscle spasticity 09/21/23 7 days #21 caps Allergies Allergy/AdvReac Type Severity Reaction Status Date / Time No Known Drug Allergies Allergy Verified 11/23/22 17:02 Opioid HPI Opioid Management Most Recent Opioid Data: Last Pain Scale 10 11/23/22 18:43 Review of Systems ROS Constitutional Denies: fever or chills Eyes Denies: change in vision or blurry vision Ears, nose, mouth, and throat Reports: neck pain; Denies: throat pain, throat swelling, difficulty swallowing or hoarseness Cardiovascular Denies: chest pain, palpitations, edema or swelling of feet/ankles Respiratory Denies: shortness of breath, cough or wheezing Gastrointestinal Reports: abdominal pain (Occasional lower abdomen, patient reports this is chronic and not important); Denies: nausea or vomiting Genitourinary Denies: painful urination or urinary frequency Musculoskeletal Reports: neck pain and extremity pain; Denies: back pain or extremity swelling Integumentary/Breast Denies: rash Neurological Reports: numbness in extremities (intermittent left arm C5/C6 and slight carpal tunnel symptoms); Denies: headache Psychiatric Denies: anxiety Hematologic/Lymphatic Denies: easy bruising PFSH PFSH Social History Smoking status: Former smoker Exam Narrative Exam Narrative: Nurses notes and vital signs reviewed and patient is not hypoxic. General: The patient appears well Guarding left shoulder. Patient is seated up on cart. Skin: Warm, dry, no pallor noted.No evidence of rash Head: Normocephalic, atraumatic Neck: Supple, trachea mid-line, no Lymphadenopathy, no midline cervical neck tenderness, tenderness left trapezium left paracervical region.Positive Spurling's on the left. Negative meningeal signs. Eye: Pupils are equal, round and reactive to light, EOMI Ears, Nose, Mouth, and Throat: TM are clear, normal light reflex, oral mucosa is moist, no posterior oropharynx erythema or hypertrophy, uvula is mid-line Cardiovascular: Regular Rate and Rhythm Respiratory: Patient is in no distress, no accessory muscle use, lungs are clear to auscultation, no wheezing, rales or rhonchi. Chest Wall: no tenderness Back: non-tender, no CVA tenderness Musculoskeletal: Left shoulder without warmth or erythema, patient has constant chronic pain in the left arm radiating through the left shoulder, it is worse with elevation of the left shoulder and internal rotation is limited by pain to the L5/posterior hip region. Patient has intact strength with deltoids 5/5 symmetric, empty can painful but able to hold, negative drop arm. Patient has slightly weakened environmental solutions engineer on the left but she reports more from pain radiating through the left arm. Lower extremities are unremarkable and right arm is full strength. Reflexes 2+ symmetric biceps, triceps and brachioradialis with negative clonus and negative Venkat sign bilaterally. GI: Normal bowel sounds, no tenderness to palpation, no masses appreciated. No rebound, guarding, or rigidity noted. Neurological: A&O x4 Psychiatric: Cooperative Constitutional Vital Signs, click to edit/add: Last Vital Signs Temp 98 F 09/21/23 14:05 Pulse 86 09/21/23 14:05 Resp 16 09/21/23 14:05 BP 142/76 H 09/21/23 14:05 Pulse Ox 99 09/21/23 14:05 O2 Del Method Room Air 09/21/23 14:05 Course Vital Signs Vital signs: Vital Signs Temperature 98 F 09/21/23 14:05 Pulse Rate 86 09/21/23 14:05 Respiratory Rate 16 09/21/23 14:05 Blood Pressure 142/76 H 09/21/23 14:05 Pulse Oximetry 99 09/21/23 14:05 Oxygen Delivery Method Room Air 09/21/23 14:05 Temperature 98 F 09/21/23 14:05 Pulse Rate 86 09/21/23 14:05 Respiratory Rate 16 09/21/23 14:05 Blood Pressure 142/76 H 09/21/23 14:05 Pulse Oximetry 99 09/21/23 14:05 Oxygen Delivery Method Room Air 09/21/23 14:05 Medical Decision Making MDM Narrative Medical decision making narrative: Abdomen nonsurgical. We discussed patient's acute on chronic symptoms, prior EMG. We discussed her symptoms concerning for cervical radiculopathy, pain is constant but she also has some pain with motion of the left shoulder. Patient expressed concern that her family doctor was referring her to pain management, but recently closed his office. She is given a new PCPs for follow-up and is encouraged to contact orthopedics for more symptom specific evaluation in the setting of her prior EMG. Patient agreeable to IM injections today, oral prednisone. Tylenol for pain ice, she will hold her NSAIDs. We discussed no driving this muscle relaxant. I do not feel the patient warrants any imaging at this time given her history and exam but we discussed further treatment with potential physical therapy, pain management injections, or additional imaging if not improving. The patient is to followup with primary care physician in next 2-3 days or to return to the emergency department should any of the signs or symptoms worsen or new symptoms develop. Patient had questions answered. The patient agrees with the following Diagnosis and Treatment plan and the patient will be discharged home. Discharge Plan Discharge Stand Alone Forms: Portal Instructions Chief Complaint: Abdominal Pain Clinical Impression: Cervical radiculopathy, Acute pain of left shoulder Patient Disposition: Home, Self-Care Time of Disposition Decision: 14:37 Condition: Good Prescriptions / Home Meds: New tizanidine 4 mg capsule 4 mg PO TID PRN (Reason: muscle spasticity) 7 Days Qty: 21 0RF prednisone 20 mg tablet 40 mg PO DAILY 5 Days Qty: 10 0RF No Action meloxicam 15 mg tablet hyoscyamine sulfate 0.375 mg tablet extended release 12 hr PO escitalopram oxalate 10 mg tablet Print Language: Kittitian Instructions: Cervical Radiculopathy (ED) Additional Instructions: Please call ortho clinic Dr. Geronimo on Saturday, Can call Dr. Stevens to see about establishing new PCP. Referrals: Jose Stevens MD [Physician] - As soon as possible Dangelo Geronimo MD [Physician] - As soon as possible
[2023-09-21] MEDS: ORPHENADRINE 60 MG/ 2 ML VIAL IM (14:48)
[2023-09-21] MEDS: PREDNISONE 20 MG TABLET 60 MG PO (14:48)
[2023-09-21] MEDS: KETOROLAC TROMETHAMINE 60 MG/2 ML VIAL IM (14:48)
== END 2023-09-21 15:05 | disposition home or self-care (01) ==
PROVIDERS: Emergency Provider Emergency Medicine Emergency Medical Services; PCP Family Medicine
DX: M25.512 Pain in left shoulder (principal); M54.12 Radiculopathy, cervical region; Z87.891 Personal history of nicotine dependence
CPT/HCPCS: 96372; 99284

== ENCOUNTER 2023-09-27 09:53 | Outpatient (OUT) | payer OTHER, SELFPAY ==
--- NOTE | 2023-09-27 | XR_ITS ---
The [address] [address] Patient Name: NEEL SAMSON MRN: [id number] date: 1980 Sex: F Assigned Patient Location: Current Patient Location: Accession/Order Number: [id number] Exam Date: 09/27/2023 10:55 Report Date: 09/30/2023 04:33 At the request of: DAMARIS ROBLES Procedure: XR cervical spine w flex/ext EXAMINATION: XR cervical spine w flex/ext HISTORY: NECK PAIN , left shoulder pain COMPARISON: No relevant comparison available. FINDINGS: BONES: Degenerative endplate changes C5-C6. No fracture, spondylolisthesis, or change in alignment during flexion and extension. Mild degenerative facet arthropathy C3-C4 through C5-C6. DISC SPACES: Mild-moderate narrowing C4-C5, C5-C6. PARASPINOUS: Negative. No paraspinous abnormality is seen. OTHER: Negative. XR/XR cervical spine w flex/ext IMPRESSION: 1. Moderate degenerative changes of cervical spine predominantly involving C4-C5 and C5-C6. Consider MRI for further evaluation. Electronically authenticated by: AUSTIN MCGUIRE Date: 09/30/2023 04:33
--- OUTSIDE RECORDS SUMMARY | 2023-09-27 10:06 | XMS_ITS ---
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 Name Role Phone House, Sr Blade Soriano Primary Care Provider ALEX LITTLE Referring Unavailable ENOLA, BLADE Soriano Primary Care Unavailable Isiah Evangelista Unavailable [place] Blade Ballesteros Primary Care Provider DO Blade Crews Primary Care Provider DO Bryan Quiros Attending Provider [phone] ELEONORA, DR BRIDGES Primary Care Unavailable KARASIK, [...] Unavailable ELEONORA, DR BRIDGES Primary Care Unavailable ROYAL, DR ALEX Kemp Consulting Unavailable MAGALI RING Attending Unavailable MARÍA ELENA, MAGALI Admitting Unavailable MARÍA ELENA, MAGALI Consulting Unavailable WICHO RAINEY Consulting Unavailable KARASIK, DR QUINTERO Admitting Unavailable KARASIK, DR QUINTERO Consulting Unavailable HOUSE, DR BRIDGES Primary Care Unavailable KARASIK, DR QUINTERO Attending Unavailable WEST, DR BRYAN Lawler Consulting Unavailable KARASIK, DR [...] Unavailable RUSSELL, DR ALEX Kemp Admitting Unavailable RUSSELL, DR ALEX Kemp Consulting Unavailable RUSSELL, DR ALEX Kemp Attending Unavailable SAL, DR BRYAN Lawler Consulting Unavailable KARASIK, DR QUINTERO Admitting Unavailable MARTINEZ, DR HAND Consulting Unavailable HOUSE, DR BRIDGES Primary Care Unavailable KARASIK, DR QUINTERO Attending Unavailable KARASIK, DR QUINTERO Consulting Unavailable KARASIK, DR QUINTERO Procedure Practitioner Unava char LONG, GIOVANNA Consulting Unavailable JUAN, DR HAND Procedure Practitioner Unavabrandee CALDERON, MONI Consulting Unavailable Eleonora, Blade Soriano Primary Care Physician AMELIE ESPARZA Attending Unavailable FRED, AMELIE Ch Attending Unavailable KARASIKIngrid Referring Unavailable Constantino MARTINEZ Attending Unavailable Constantino MARTINEZ Attending Unavailable HALASYRICO Attending Unavailable Encounters Encounter Date Encounter Type Care Provider Facility Start: 08-27-2023 End: 08-27-2023 ambulatory RICO CABELLO Not Available Start: 01-08-2023 End: 01-09-2023 ambulatory AMELIE ESPARZA Facility:[facility] Start: 01-08-2023 End: 01-08-2023 Patient encounter procedure AMELIE ESPARZA [facility] Start: 11-13-2022 End: 11-14-2022 ambulatory Constantino MARTINEZ Facility:CD:[id number] Start: 10-30-2022 End: 10-31-2022 ambulatory AMELIE ESPARZA Facility:[facility] Start: 10-30-2022 End: 10-30-2022 Patient encounter procedure AMELIE ESPARZA [facility] Start: 05-30-2022 End: 05-30-[address] INGRID DE LOS SANTOS Facility:[facility] Start: 05-30-2022 End: 05-31-[address] INGRID DE LOS SANTOS Facility:[facility] Start: 05-27-2022 End: 05-27-[address] BLADE CREWS Facility:[facility] Start: 05-10-2022 End: 05-11-[address] BLADE CREWS Facility:[facility] Start: 02-26-2022 End: 02-27-[address] BLADE CREWS Facility:[facility] Start: 02-26-2022 Encounter for preprocedural laboratory examination DR INGRID DE LOS SANTOS [facility] Start: 02-25-2022 End: 02-25-[address] BLADE CREWS Facility:[facility] Start: 02-16-2022 Encounter for preprocedural laboratory examination DR INGRID DE LOS SANTOS [facility] Start: 02-15-2022 End: 02-16-2022 ambulatory Constantino MARTINEZ Facility:CD:[id number] Start: 02-15-2022 End: 02-19-2022 Evaluation and management of inpatient DR INGRID DE LOS SANTOS Facility:[facility] Start: 02-12-2022 End: 02-13-[address] INGRID DE LOS SANTOS Facility:[facility] Start: 02-12-2022 End: 02-13-2022 Encounter for preprocedural laboratory examination DR INGRID DE LOS SANTOS Facility:[facility] Start: 02-07-2022 ambulatory AMELIE ESPARZA Facility :[facility] [place] Start: 01-30-2022 Encounter for other preprocedural examination DR INGRID DE LOS SANTOS [facility] Start: 01-29-2022 End: 01-30-[address] [...] surgery center DO Blade Crews Work Phone: [facility] Start: 09-15-2021 End: 09-15-2021 Patient encounter procedure DO Blade Crews Work Phone: [facility] [facility] Start: 08-14-2021 End: 08-14-2021 ambulatory Paolo Ward MD Work Phone: Hematology/Oncology Comment on above: Iron deficiency anem ia, unspecified iron deficiency anemia type (Primary Dx) Start: 08-14-2021 End: 08-14-2021 Patient encounter procedure Paolo Ward MD Work Phone: [facility] Start: 06-28-2021 End: 06-28-2021 Departed Referred DO Blade Crews Work Phone: [facility] Start: 06-26-2021 End: 06-26-2021 Patient encounter procedure DO Blade Crews Work Phone: [facility] Start: 05-24-2021 Chart abstracting Paolo guevara MD Work Phone: Hematology/Oncology Start: 10-22-2019 End: 10-25-2019 Patient encounter procedure ALEX LITTLE [facility] Start: 10-22-2019 End: 10-24-2019 Subsequent hospital visit by physician Page Mri Rm [facility] Comment on above: Intractable epilepsy without status epilepticus, unspecified epilepsy type (HCC) Goals Date Patient Goal Desired Activity /State Immunizations Immunization Date Immunization Notes Care Provider Mariah jauregui 02-16-2019 influenza, injectabl e, quadrivalent, preservative free Paolo Ward MD Work Phone: [facility] 12-31-2017 influenza, injectabl e, quadrivalent, preservative free Paolo Ward MD Work Phone: [facility] Medications Current Medications Medication Drug Class(es) Dates [...] day(s), # 2 tab(s), Refills(s) 0, Pharmacy: [facility]/pharmacy #[id number], 170, cm, 10/30/22 10:53:00 EDT, Height/Length [...] TABLET BY AYLA TH EVERYDAY AT BEDTIME Payers Date Payer Category Payer Unknown [facility] xxxxxxxxxxxx 2014-Present [phone] [address] [place] [address] xxxxxxxxxxxx [id number] 2002 Medicaid [place] [employer] [place] [employer] [id number] 2002-Present [phone] [place] [address] Medicaid [id number] 1978 Unknown [id number] 2.16.840.1.726490.3.579.2.175 1978 Unknown [id number] 2.16.840.1.693633.3.579.2.593 1978 Unknown [id number] 2.16.840.1.467392.3.579.2.593 1978 Unknown [id number] 2.16.840.1.953023.3.579.2.593 1978 Unknown [id number] 2.16.840.1.661903.3.579.2.593 1978 Unknown [id number] 2.16.840.1.812208.3.579.2.593 1978 Unknown [id number] 2.16.840.1.118456.3.579.2.593 1978 Unknown [id number] 2.16.840.1.697899.3.579.2.593 1978 Unknown [id number] 2.16.840.1.085846.3.579.2.593 1978 Unknown [id number] 2.16.840.1.336745.3.579.2.593 1978 Unknown [id number] 2.16.840.1.235730.3.579.2.593 1978 Unknown [id number] 2.16840.1.125621.3.579.2.593 1978 Unknown [id number] 2.16.840.1.602263.3.579.2.593 1978 Unknown [id number] 2.16.840.1.348413.3.579.2.593 1978 Unknown [id number] 2.16.840.1.724416.3.579.2.593 1978 Unknown [id number] 2.16840.1.222630.3.579.2.593 1978 Unknown [id number] 2.16.840.1.179178.3.579.2.727 1978 Unknown [id number] 2.16.840.1.653634.3.579.2.727 1978 Unknown [id number] 2.16.840.1.912165.3.579.2.727 1978 Unknown [id number] 2.16.840.1.804060.3.579.2.727 1978 Unknown [id number] 2.16.840.1.635541.3.579.2.125 9 1959 Unknown [id number] Self-pay Self Pay [id number] Plan of Treatment Date Care Activity Detail Author Start: 09-28-2022 Adult depression screening assessment DEPRESSION SCREENING [facility] Start: 06-26-2022 Adult depression screening assessment DEPRESSION SCREENING [facility] Start: 12-21-2021 Influenza vaccination [facility] Start: 09-28-2021 End: 11-28-2021 CBC W Auto Differential panel - Blood CBC + DIFF Lab Routine Iron deficiency anemia, unspecified iron deficiency anemia type Expected: 09/28/2021, Expires: 11/28/2021 [facility] Work Phone: Comment on above: Expected: 09/28/2021, Expires: 2 Start: 09-28-2021 End: 11-28-2021 FERRITIN BLD FERRITIN BLD Lab Routine Iron deficiency anemia, unspecified iron deficiency anemia type Expected: 09/28/2021, Expires: 11/28/2021 [facility] Work Phone: Comment on above: Expected: 09/28/2021, Expires: 2 Start: 09-28-2021 End: 11-28-2021 IRON + TIBC IRON + TIBC Lab Routine Iron deficiency anemia, unspecified iron deficiency anemia type Expected: 09/28/2021, Expires: 11/28/2021 [facility] Work Phone: Comment on above: Expected: 09/28/2021, Expires: 2 Start: 08-14-2021 End: 10-14-2021 CBC W Auto Differential panel - Blood CBC + DIFF Lab Routine Iron deficiency anemia, unspecified iron deficiency anemia type Expected: 08/14/2021, Expires: 10/14/2021 [facility] Work Phone: Comment on above: Expected: 08/14/2021, Expires: 2 Start: 08-14-2021 End: 10-14-2021 FERRITIN BLD FERRITIN BLD Lab Routine Iron deficiency anemia, unspecified iron deficiency anemia type Expected: 08/14/2021, Expires: 10/14/2021 [facility] Work Phone: Comment on above: Expected: 08/14/2021, Expires: 2 Start: 08-14-2021 End: 10-14-2021 IRON + TIBC IRON + TIBC Lab Routine Iron deficiency anemia, unspecified iron deficiency anemia type Expected: 08/14/2021, Expires: 10/14/2021 [facility] Work Phone: Comment on above: Expected: 08/14/2021, Expires: 2 Start: 08-14-2021 End: 10-14-2021 RETIC COUNT RETIC COUNT Lab Routine Iron deficiency anemia, unspecified iron deficiency anemia type Expected: 08/14/2021, Expires: 10/14/2021 [facility] Work Phone: Comment on above: Expected: 08/14/2021, Expires: 2 Start: 06-28-2021 Esophagogastroduodenoscopy DH EGD/Colonoscopy (Not Applicable) [facility] Start: 12-21-2020 Influenza vaccination INFLUENZA (#1) [facility] Start: 12-22-2019 Influenza vaccination Flu vaccine (#1) [place], [place] Start: 2018 Lipid panel Lipid screen [place], [place] Start: 2018 Mammography MAMMOGRAM [facility] Start: 2008 HPV TESTING HPV TESTING [facility] Start: 1999 PAP TESTING PAP TESTING [facility] Start: 1999 Screening for malignant neoplasm of cervix Cervical cancer screen [place], [place] Start: 1997 DTaP/Tdap/Td vaccine (1 - Tdap) DTaP/Tdap/Td vaccine (1 - Tdap) [place] Start: 1997 Urine microalbumin profile DTAP,TDAP,TD (1 - Tdap) [facility] Start: 1996 HEPATITIS C SCREENING HEPATITIS C SCREENING [facility] Start: 1996 HIV SCREENING HIV SCREENING [facility] Start: 1993 HIV screening HIV screen [place], [place] Start: 1990 Adult depression screening assessment DEPRESSION SCREENING [facility] Start: 1983 COVID-19 VACCINE (#1) COVID-19 VACCINE (#1) [facility] Start: 1983 COVID-19 VACCINE (1) COVID-19 VACCINE (1) [facility] Start: 1978 COVID-19 VACCINE (#1) COVID-19 VACCINE (#1) [facility] Ferritin [Mass/volum e] in Serum or Plasma FERRITIN BLD Lab Routine Iron deficiency anemia, unspecified iron deficiency anemia type 10/06/2021 1:31 PM EDT [facility] Work Phone: Iron and Iron bindin g capacity panel - Serum or Plasma IRON + TIBC Lab Routine Iron deficiency anemia, unspecified iron deficiency anemia type 10/06/2021 1:31 PM EDT [facility] Work Phone: [facility] Problems Active Problems Problem Classification Problem Date [...] disorder, unspecified; Translations: [BIPOLAR DISORDER UNSPECIFIED] Onset: 05-14-2022 Chronic Nutritional deficiencies (1 source) Iron deficiency; Translations: [Iron deficiency] Onset: 10-12-2021 10-12-2021 Episodic Other aftercare (1 source) Other halfway (current) drug therapy; Translations: [OTH CUSTODIAL CURRENT DRUG THERAPY] Onset: 05-28-2022 Episodic Other [...] BOTH CERVIX AND UTERUS] Onset: 02-27-2022 Episodic Procedures Date Procedure Procedure Detail Performing Clinician [...] Work Phone: Start: 09-20-2021 Esophagogastroduodenoscopy DO Blade Ho use Work Phone: Start: 06-26-2021 Adult depression screening assessment Paolo Ward MD Work Phone: Start: 10-22-2019 Mri brain brain stem w/o w/contrast material ALEX BEJ Start: 10-22-2019 Mri brain brain stem w/o w/contrast material Alex D Bej Work Phone: Results Test Name Value Interpretation Reference Range [...] provider. Document Revised: 08/17/2021 Document Reviewed: 08/17/2021 [email or web address] Patient Education ? 2022 [employer] [facility] Urology Office/Clinic Noteon 01-08-2023 Urology Office/Clinic Note Chief Complaint F/U to Cysto HPI Staff Last seen in our office 10/30/22 by JOE as a referral due to Microscopic Hematuria, Flank pain & Mixed Incontinence. Pt. was not able to give a urine sample today. S/P Cysto/UD by PRW 11/13/22 *Macrobid 100mg qd [id number] given post op Renal US 11/13/22 Dysuria: [...] Cysto/UD by PRW 11/13/22 *Macrobid 100mg qd [id number] given post op Pt states she is [...] When Contact Information AMELIE ESPARZA PA-C, URL [address] [place] [address] Additional Instructions: PRN Patient Education Jacky Ruano I, Lamar Estrada, personally scribed for Amelie Esparza PA-C on [...] Father. Migraine: Mother. Parkinsons disease: Father. Normal [facility] Comment on above: Result Comment: Elec tronically Signed By: AMELIE ESPARZA PA-C\.br\Date and Time Signed: 01/08/23 15:16 EDT\.br\Electronically Co-Signed By: Lamar Estrada.br\Date and Time Co-Signed: 01/08/23 15:11 EDT Lab Reportson 11-26-2022 Lab Reports [id number] 9#1.00CD:127 [facility] Lab Reports [id number] 3#1.00CD:127 [facility] Lab Reports [id number] 7#1.00CD:127 [facility] Lab Reports [id number] 8#1.00CD:127 [facility] Lab Reports [id number] 6#1.00CD:127 [facility] RAD - Ultrasound Reporton RAD - Ultrasound Report [id number] [id number] #1.00CD:127 [facility] Operative Reporton Operative Report [id number] 7#1.00CD:127 [facility] Provider Letteron 11-14-2022 Provider Letter November 14, 2022 NEEL GARCIA [address] [place] [address] : 1980 To Whom It May Concern, [...] Constantino Martinez M.D., F.A.C.S. [facility] [address] [place] [address] [facility] RAD - Ultrasound Reporton RAD - Ultrasound Report [id number] [id number] #1.00CD:127 [facility] Physician Referralon 023 Physician Referral [id number] #1.00CD:127 [facility] Screenson 11-02-2022 Screens [id number] 8#1.00CD:127 [facility] Pre-Certification Formon Pre-Certification Form [id number] 08#1.00CD:127 [facility] Ambulatory Visit Summaryon 0 10-30-2022 Ambulatory Visit [...] DO Referring Physician - Ingrid DE LOS SATNOS MD This Is Your Medications List Contact [...] AMELIE ESPARZA PA-C Where: [facility] Consent for Procedure/Surger yon 10-30-2022 Consent for Procedure/Surgery [id number] #1.00CD:127 [facility] HERPES SIMPLEX VIRUS (HSV) C ULTUREon 06-05-2022 HSV Culture/Type Comment Normal [facility] Comment on above: Result Comment: Nega tive No Herpes simplex virus isolated. Performed By: #### I NFLUAB #### [facility] [address] [place] [address] Dr. Cherie Dior CBC AUTO DIFFon 05-30-2022 BASO # 0.1 103/ul Normal 0.0-0.1 [facility] Comment on above: Performed By: #### I NFLUAB #### [facility] [address] [place] [address] Dr. Cherie Dior Basophils/100 WBC (Bld) 1.2 % Normal 0.2-2.0 [facility] Comment on above: Performed By: #### I NFLUAB #### [facility] [address] [place] [address] Dr. Cherie Dior EO # 0.1 103/ul Normal 0.0-0.7 [facility] Comment on above: Performed By: #### I NFLUAB #### [facility] [address] [place] [address] Dr. Cherie Dior Eosinophils/100 WBC (Bld) 1.9 % Normal 0.9-7.0 [facility] Comment on above: Performed By: #### I NFLUAB #### [facility] [address] [place] [address] Dr. Cherie Dior Erythrocyte distribution width (RBC) [Ratio] 14.9 % Normal 11.0-15.0 [facility] Comment on above: Performed By: #### I NFLUAB #### [facility] [address] [place] [address] Dr. Cherie Dior Hematocrit (Bld) [Volume fraction] 40.7 % Normal 36.0-48.0 [facility] Comment on above: Performed By: #### I NFLUAB #### [facility] [address] [place] [address] Dr. Cherie Dior Hemoglobin (Bld) [Mass/Vol] 12.8 g/dL Normal 12.0-16.0 [facility] Comment on above: Performed By: #### I NFLUAB #### [facility] [address] [address] [address] Cherie Dior IG # 0.05 10e3/ul Critically high 0.00-0.03 [facility] Comment on above: Performed By: #### I NFLUAB #### [facility] [address] [address] [address] Cherie Dior IG % 1.2 % Critically high 0.0-0.5 [facility] Comment on above: Performed By: #### I NFLUAB #### [facility] [address] [address] [address] Cherie Dior LYMPH # 0.9 103/ul Critically low 1.2-3.8 [facility] Comment on above: Performed By: #### I NFLUAB #### [facility] [address] [place] [address] Dr. Cherie Dior Lymphocytes/100 WBC (Bld) 21.8 % Normal 20.5-60.0 [facility] Comment on above: Performed By: #### I NFLUAB #### [facility] [address] [place] [address] Dr. Cherie Dior MANUAL DIFF REQ NO Normal [facility] Comment on above: Performed By: #### I NFLUAB #### [facility] [address] [place] [address] Dr. Cherie Dior MCH (RBC) [Entitic mass] 27.4 pg Normal 26.7-34.0 [facility] Comment on above: Performed By: #### I NFLUAB #### [facility] [address] [place] [address] Dr. Cherie Dior MCHC (RBC) [Mass/Vol] 31.4 g/dL Normal 29.9-35.2 [facility] Comment on above: Performed By: #### I NFLUAB #### [facility] [address] [place] [address] Dr. Cherie Dior MCV (RBC) [Entitic vol] 87.0 fL Normal 81.0-99.0 [facility] Comment on above: Performed By: #### I NFLUAB #### [facility] [address] [address] [address] Cherie Dior MONO # 0.7 103/ul Normal 0.3-0.8 [facility] Comment on above: Performed By: #### I NFLUAB #### [facility] [address] [place] [address] Dr. Cherie Dior Monocytes/100 WBC (Bld) 16.6 % Critically high 1.7-12. 0 [facility] Comment on above: Performed By: #### I NFLUAB #### [facility] [address] [place] [address] Dr. Cherie Dior NEUT # 2.5 103/ul Normal 1.4-6.5 [facility] Comment on above: Performed By: #### I NFLUAB #### [facility] [address] [place] [address] Dr. Cherie Dior Neutrophils/100 WBC (Bld) 57.3 % Normal 43.0-75.0 [facility] Comment on above: Performed By: #### I NFLUAB #### [facility] [address] [place] [address] Dr. Cherie Dior Platelet mean volume (Bld) [Entitic vol] 10.2 fL Normal 9.5-13.5 [facility] Comment on above: Performed By: #### I NFLUAB #### [facility] [address] [place] [address] Dr. Cherie Dior PLT 278 103/ul Normal 150-450 [facility] Comment on above: Performed By: #### I NFLUAB #### [facility] [address] [place] [address] Dr. Cherie Dior RBC 4.68 106/ul Normal 4.20-5.40 [facility] Comment on above: Performed By: #### I NFLUAB #### [facility] [address] [place] [address] Dr. Cherie Dior WBC 4.3 103/ul Normal 4.0-11.0 [facility] Comment on above: Performed By: #### I NFLUAB #### [facility] [address] [place] [address] Dr. Chreie Dior CULTURE URINEon 05-30-2022 CULTURE URINE Culture Observations: NO GROWTH. Normal [facility] Comment on above: Performed By: #### I NFLUAB #### [facility] [address] [place] [address] Dr. Cherie Dior UA (CLEAN/CATCH) DIRECTOR AMBULATORY/MICRO I F IND.on 05-30-2022 Bilirubin Ql (U) Negative Normal NEGATIVE [facility] Comment on above: Performed By: #### B RECEIVER SETTER, CMADM, CMP #### [facility] [address] [place] [address] Dr. Cherie Dior Clarity (U) CLEAR Normal CLEAR [facility] Comment on above: Performed By: #### B RECEIVER SETTER, CMADM, CMP #### [facility] [address] [place] [address] Dr. Cherie Dior Color (U) LT. YELLOW Normal YELLOW [facility] Comment on above: Performed By: #### B RECEIVER SETTER, CMADM, CMP #### [facility] [address] [place] [address] Dr. Cherie Dior Glucose Ql (U) Negative Normal NEGATIVE [facility] Comment on above: Performed By: #### B RECEIVER SETTER, CMADM, CMP #### [facility] [address] [place] [address] Dr. Cherie Dior Hemoglobin Ql (U) LARGE Abnormal NEGATIVE [facility] Comment on above: Performed By: #### B RECEIVER SETTER, CMADM, CMP #### [facility] [address] [address] [address] Cherie Dior Ketones Ql (U) TRACE Abnormal NEGATIVE [facility] Comment on above: Performed By: #### B RECEIVER SETTER, CMADM, CMP #### [facility] [address] [place] [address] Dr. Cherie Dior LEUKOCYTES MODERATE Abnormal NEGATIVE [facility] Comment on above: Performed By: #### B RECEIVER SETTER, CMADM, CMP #### [facility] [address] [place] [address] Dr. Cherie Dior Nitrite Ql (U) Negative Normal NEGATIVE [facility] Comment on above: Performed By: #### B RECEIVER SETTER, CMADM, CMP #### [facility] [address] [place] [address] Dr. Cherie Dior pH (U) 6.0 [pH] Normal 5-9 [facility] Comment on above: Performed By: #### B RECEIVER SETTER, CMADM, CMP #### [facility] [address] [place] [address] Dr. Cherie Dior SPEC GRAVITY 1.020 Normal 1.005-<=1.025 [facility] Comment on above: Performed By: #### B RECEIVER SETTER, CMADM, CMP #### [facility] [address] [place] [address] Dr. Cherie Dior UA PROTEIN 30 mg/dl Abnormal NEGATIVE/ TRACE [facility] Comment on above: Performed By: #### B RECEIVER SETTER, CMADM, CMP #### [facility] [address] [place] [address] Dr. Cherie Dior UR MICRO IND INDICATED Normal [facility] Comment on above: Performed By: #### B RECEIVER SETTER, CMADM, CMP #### [facility] [address] [place] [address] Dr. Cherie Dior Urobilinogen Qn (U) 0.2 {Del'U}/dL Normal 0.2 - 1. 0 [facility] Comment on above: Performed By: #### B RECEIVER SETTER, CMADM, CMP #### [facility] [address] [place] [address] Dr. Cherie Dior URINE MICROSCOPIC ONLYon BACTERIA SMALL Abnormal NONE SEEN [facility] Comment on above: Performed By: #### B RECEIVER SETTER, CMADM, CMP #### [facility] 08 [place] [address] Dr. Cherie Dior Bacteria identified Cx Nom (U) INDICATED Normal [facility] Comment on above: Performed By: #### B RECEIVER SETTER, CMADM, CMP #### [facility] [address] [place] [address] Dr. hCerie Dior CAST NONE SEEN Normal NONE SEEN [facility] Comment on above: Performed By: #### B RECEIVER SETTER, CMADM, CMP #### [facility] [address] [address] [address] Cherie Dior Crystals LM Nom (Urine sed) NONE SEEN Normal NONE SEEN [facility] Comment on above: Performed By: #### B RECEIVER SETTER, CMADM, CMP #### [facility] [address] [place] [address] Dr. Cherie Dior Epithelial cells LM Ql (Urine sed) MODERATE Abnormal NONE SEEN /RARE [facility] Comment on above: Performed By: #### B RECEIVER SETTER, CMADM, CMP #### [facility] [address] [place] [address] Dr. Cherie Dior MUCOUS TRACE Abnormal NONE SEEN [facility] Comment on above: Performed By: #### B RECEIVER SETTER, CMADM, CMP #### [facility] [address] [place] [address] Dr. Cherie Dior RBC 2-5 Abnormal 0-2 [facility] Comment on above: Performed By: #### B RECEIVER SETTER, CMADM, CMP #### [facility] [address] [place] [address] Dr. Cherie Dior WBC 2-5 Abnormal NONE SEEN [facility] Comment on above: Performed By: #### B RECEIVER SETTER, CMADM, CMP #### [facility] [address] [place] [address] Dr. Cherie Dior [facility]on SARS-CoV-2 (COVID-19) RNA JULEE+probe Ql (Unsp spec) Not detected Normal NOT DETECTED [facility] Comment on above: Result Comment: When [...] for this test is supported by the Utilization Management Manager of Health and Human Service's declaration that [...] used). Performed By: #### I NFLUAB #### [facility] [address] [place] [address] Dr. Cherie Dior GROUP A STREP CULTUREon S. pyogenes Ag Ql (Unsp spec) Culture Observations: NEGATIVE FOR GROUP A STREPTOCOCCUS. Normal [facility] Comment on above: Performed By: #### G RASTCX, SSCRN #### [facility] [address] [place] [address] Dr. Cherie Dior INFLUENZA A AND B AGon 05-27 INFLUANE SEE BELOW Normal [facility] Comment on above: Result Comment: Nega tive for Flu A protein angiten. Infection due to Flu A cannot be ruled out. Flu A angiten in the sample may be below the detection limit of the test. Performed By: #### I NFLUAB #### [facility] [address] [place] [address] Dr. Cherie Dior INFLUBNEGH SEE BELOW Normal [facility] Comment on above: Result Comment: Nega tive for Flu B protein antigen. Infection due to Flu B cannot be ruled out. Flu B antigen in the sample may be below the detection limit of the test. Performed By: #### I NFLUAB #### [facility] [address] [place] [address] Dr. Cherie Dior INFLUENZA A AG Negative Normal NEGATIVE SEE COMMENT [facility] Comment on above: Performed By: #### I NFLUAB #### [facility] [address] [place] [address] Dr. Cherie Dior INFLUENZA B AG Negative Normal NEGATIVE SEE COMMENT [facility] Comment on above: Performed By: #### I NFLUAB #### [facility] [address] [place] [address] Dr. Cherie Dior STREPT SCREENon 05-27-2022 STREP SCREEN A Negative Normal NEGATIVE [facility] Comment on above: Performed By: #### G RASTCX, SSCRN #### [facility] [address] [address] [address] Cherie Dior US TOMAS DOP LEG LTon 02-28-20 22 US TOMAS DOP LEG LT EXAMINATION: US TOMAS DOP [...] by: BRYAN JONES Date: 2022-02-27 06:57 Normal [facility] BNPon 02-25-2022 Natriuretic peptide B (Bld) [Mass/Vol] 36.0 pg/mL Normal <=450.0 [facility] Comment on above: Performed By: #### B RECEIVER SETTER, CMADM, CMP #### [facility] [address] [place] [address] Dr. Cherie Dior CARDIAC ALEX ADMITon 022 CK [Catalytic activity/Vol] 150 U/L Normal 26-192 [facility] Comment on above: Performed By: #### B RECEIVER SETTER, CMADM, CMP #### [facility] [address] [place] [address] Dr. Cherie Dior CK.MB [Mass/Vol] 0.43 ng/mL Normal <=3.[address] [facility] Comment on above: Performed By: #### B RECEIVER SETTER, CMADM, CMP #### [facility] [address] [place] [address] Dr. Cherie Dior HSTROP 4.7 pg/mL Normal 4.0-51.3 [facility] Comment on above: Result Comment: CUT- OFF POINTS HAVE BEEN ESTABLISHED BASED ON THE FOURTH UNIVERSAL DEFINITIONS OF MYOCARDIAL INFARCTION. THE UPPER REFERENCE LIMIT (URL) OF TROPONIN, DEFINED THE 99TH PERCENTILE OF cTnI DISTRIBUTION IN A REFERENCE POPULATION, HAS BEEN CONFIRMED THE DECISION THRESHOLD FOR CA DIAGNOSIS. Performed By: #### B RECEIVER SETTER, CMADM, CMP #### [facility] [address] [place] [address] Dr. Cherie Dior FRANCISCO 32 ng/mL Normal 9-82 [facility] Comment on above: Performed By: #### B RECEIVER SETTER, CMADM, CMP #### [facility] [address] [place] [address] Dr. Cherie Dior CBC AUTO DIFFon 02-25-2022 BASO # 0.0 103/ul Normal 0.0-0.1 [facility] Comment on above: Performed By: #### B RECEIVER SETTER, CMADM, CMP #### [facility] [address] [place] [address] Dr. Cherie Dior Basophils/100 WBC (Bld) 0.4 % Normal 0.2-2.0 [facility] Comment on above: Performed By: #### B RECEIVER SETTER, CMADM, CMP #### [facility] [address] [place] [address] Dr. Cherie Dior EO # 0.2 103/ul Normal 0.0-0.7 [facility] Comment on above: Performed By: #### B RECEIVER SETTER, CMADM, CMP #### [facility] [address] [place] [address] Dr. Cherie Dior Eosinophils/100 WBC (Bld) 1.8 % Normal 0.9-7.0 [facility] Comment on above: Performed By: #### B RECEIVER SETTER, CMADM, CMP #### [facility] [address] [place] [address] Dr. Cherie Dior Erythrocyte distribution width (RBC) [Ratio] 12.6 % Normal 11.0-15.0 [facility] Comment on above: Performed By: #### B RECEIVER SETTER, CMADM, CMP #### [facility] [address] [place] [address] Dr. Cherie Dior Hematocrit (Bld) [Volume fraction] 32.9 % Critically low 36.0-48.0 [facility] Comment on above: Performed By: #### B RECEIVER SETTER, CMADM, CMP #### [facility] [address] [place] [address] Dr. Cherie Dior Hemoglobin (Bld) [Mass/Vol] 10.5 g/dL Critically low 12.0-16.0 [facility] Comment on above: Performed By: #### B RECEIVER SETTER, CMADM, CMP #### [facility] [address] [place] [address] Dr. Cherie Dior IG # 0.12 10e3/ul Critically high 0.00-0.03 [facility] Comment on above: Performed By: #### B RECEIVER SETTER, CMADM, CMP #### [facility] [address] [place] [address] Dr. Cherie Dior IG % 1.4 % Critically high 0.0-0.5 [facility] Comment on above: Performed By: #### B RECEIVER SETTER, CMADM, CMP #### [facility] [address] [place] [address] Dr. Cherie Dior LYMPH # 1.7 103/ul Normal 1.2-3.8 [facility] Comment on above: Performed By: #### B RECEIVER SETTER, CMADM, CMP #### [facility] [address] [place] [address] Dr. Cherie Dior Lymphocytes/100 WBC (Bld) 20.1 % Critically low 20.5-60.0 [facility] Comment on above: Performed By: #### B RECEIVER SETTER, CMADM, CMP #### [facility] [address] [place] [address] Dr. Cherie Dior MANUAL DIFF REQ NO Normal [facility] Comment on above: Performed By: #### B RECEIVER SETTER, CMADM, CMP #### [facility] [address] [place] [address] Dr. Cherie Dior MCH (RBC) [Entitic mass] 28.8 pg Normal 26.7-34.0 [facility] Comment on above: Performed By: #### B RECEIVER SETTER, CMADM, CMP #### [facility] [address] [place] [address] Dr. Cherie Dior MCHC (RBC) [Mass/Vol] 31.9 g/dL Normal 29.9-35.2 [facility] Comment on above: Performed By: #### B RECEIVER SETTER, CMADM, CMP #### [facility] [address] [place] [address] Dr. Cherie Dior MCV (RBC) [Entitic vol] 90.4 fL Normal 81.0-99.0 [facility] Comment on above: Performed By: #### B RECEIVER SETTER, CMADM, CMP #### [facility] [address] [place] [address] Dr. Cherie Dior MONO # 0.9 103/ul Critically high 0.3-0.8 [facility] Comment on above: Performed By: #### B RECEIVER SETTER, CMADM, CMP #### [facility] [address] [place] [address] Dr. Cherie Dior Monocytes/100 WBC (Bld) 10.4 % Normal 1.7-12.0 [facility] Comment on above: Performed By: #### B RECEIVER SETTER, CMADM, CMP #### [facility] [address] [place] [address] Dr. Cherie Dior NEUT # 5.6 103/ul Normal 1.4-6.5 [facility] Comment on above: Performed By: #### B RECEIVER SETTER, CMADM, CMP #### [facility] [address] [place] [address] Dr. Cherie Dior Neutrophils/100 WBC (Bld) 65.9 % Normal 43.0-75.0 [facility] Comment on above: Performed By: #### B RECEIVER SETTER, CMADM, CMP #### [facility] [address] [place] [address] Dr. Cherie Dior Platelet mean volume (Bld) [Entitic vol] 9.0 fL Critically low 9.5-13.5 [facility] Comment on above: Performed By: #### B RECEIVER SETTER, CMADM, CMP #### [facility] [address] [place] [address] Dr. Cherie Dior PLT 381 103/ul Normal 150-450 [facility] Comment on above: Performed By: #### B RECEIVER SETTER, CMADM, CMP #### [facility] [address] [place] [address] Dr. Cherie Dior RBC 3.64 106/ul Critically low 4.20-5.40 [facility] Comment on above: Performed By: #### B MEAGHAN OSORIO, CMP #### [facility] [address] [place], [place] [address] Dr. Cherie Dior WBC 8.4 103/ul Normal 4.0-11.0 [facility] Comment on above: Performed By: #### B MEAGHAN OSORIO, CMP #### [facility] [address] [place], [place] [address] Dr. Cherie Dior CTA CHEST WO W [...] The subdiaphragmatic abdominal organs included in the [id number] do not demonstrate any acute abnormality allowing for some fatty infiltration of the liver.. IMPRESSION: No CT evidence for acute pulmonary embolus. Electronically authenticated by: WICHO RAINEY Date: 2022-02-25 19:04 Normal [facility] D-DIMERon 02-25-2022 D-DIMER 6.44 mg/L FEU Critically high <=0.59 [facility] Comment on above: Performed By: #### B RECEIVER SETTERMEAGHAN, CMP #### [facility] [address] [address] [address] Cherie Dior D-DIMER COMMENTS SEE BELOW Normal [facility] Comment on above: Result Comment: Incr [...] By: #### B MEAGHAN OSORIO, CMP #### [facility] [address] [place] [address] Dr. Cherie Dior ER URINE PROFILEon 2 Bilirubin Ql (U) Negative Normal NEGATIVE [facility] Comment on above: Performed By: #### B MEAGHAN OSORIO, CMP #### [facility] [address] [place] [address] Dr. Cherie Dior Clarity (U) CLEAR Normal CLEAR [facility] Comment on above: Performed By: #### B MEAGHAN OSORIO, CMP #### [facility] [address] [place] [address] Dr. Cherie Dior Color (U) LT. YELLOW Normal YELLOW [facility] Comment on above: Performed By: #### B RECEIVER SETTER, MEAGHAN, CMP #### [facility] [address] [place] [address] Dr. Cherie Dior ERUAHD A micrscopic examination will be performed if indicated. Normal [facility] Comment on above: Performed By: #### B RECEIVER SETTER, MEAGHAN, CMP #### [facility] [address] [place] [address] Dr. Cherie Dior Glucose Ql (U) Negative Normal NEGATIVE [facility] Comment on above: Performed By: #### B RECEIVER SETTER, MEAGHAN, CMP #### [facility] [address] [address] [address] Cherie Dior Hemoglobin Ql (U) SMALL Abnormal NEGATIVE [facility] Comment on above: Performed By: #### B RECEIVER SETTER, CMADM, CMP #### [facility] [address] [place] [address] Dr. Cherie Dior Ketones Ql (U) Negative Normal NEGATIVE [facility] Comment on above: Performed By: #### B RECEIVER SETTER, CMADM, CMP #### [facility] [address] [place] [address] Dr. Cherie Dior LEUKOCYTES Negative Normal NEGATIVE [facility] Comment on above: Performed By: #### B RECEIVER SETTER, CMADM, CMP #### [facility] [address] [place] [address] Dr. Cherie Dior Nitrite Ql (U) Negative Normal NEGATIVE [facility] Comment on above: Performed By: #### B RECEIVER SETTER, CMADM, CMP #### [facility] [address] [place] [address] Dr. Cherie Dior pH (U) 6.0 [pH] Normal 5-9 [facility] Comment on above: Performed By: #### B RECEIVER SETTER, CMADM, CMP #### [facility] [address] [place] [address] Dr. Cherie Dior SPEC GRAVITY 1.020 Normal 1.005-<=1.025 [facility] Comment on above: Performed By: #### B RECEIVER SETTER, CMADM, CMP #### [facility] [address] [place] [address] Dr. Cherie Dior UA PROTEIN Negative Normal NEGATIVE/ TRACE [facility] Comment on above: Performed By: #### B RECEIVER SETTER, CMADM, CMP #### [facility] [address] [address] [address] Cherie Dior UR MICRO IND INDICATED Normal [facility] Comment on above: Performed By: #### B RECEIVER SETTER, CMADM, CMP #### [facility] [address] [place] [address] Dr. Cherie Dior Urobilinogen Qn (U) 0.2 {Del'U}/dL Normal 0.2 - 1. 0 [facility] Comment on above: Performed By: #### B RECEIVER SETTER, CMADM, CMP #### [facility] [address] [place] [address] Dr. Cherie Dior PROF 14(COMP METB)on 022 Albumin [Mass/Vol] 3.8 g/dL Normal 3.4-5.0 [facility] Comment on above: Performed By: #### B RECEIVER SETTER, CMADM, CMP #### [facility] [address] [place] [address] Dr. Cherie Dior Albumin/Globulin [Mass ratio] 0.8 {ratio} Normal [facility] Comment on above: Performed By: #### B RECEIVER SETTER, CMADM, CMP #### [facility] [address] [place] [address] Dr. Cherie Dior ALP [Catalytic activity/Vol] 72 U/L Normal 46-116 [facility] Comment on above: Performed By: #### B RECEIVER SETTER, CMADM, CMP #### [facility] [address] [place] [address] Dr. Cherie Dior ALT [Catalytic activity/Vol] 21 U/L Normal 14-59 [facility] Comment on above: Performed By: #### B RECEIVER SETTER, CMADM, CMP #### [facility] [address] [place] [address] Dr. Cherie Dior Anion gap [Moles/Vol] 10.5 mmol/L Normal [facility] Comment on above: Performed By: #### B RECEIVER SETTER, CMADM, CMP #### [facility] [address] [place] [address] Dr. Cherie Dior AST [Catalytic activity/Vol] 13 U/L Critically low 15-37 [facility] Comment on above: Performed By: #### B RECEIVER SETTER, CMADM, CMP #### [facility] [address] [place] [address] Dr. Cherie Dior Bilirubin [Mass/Vol] 0.5 mg/dL Normal 0.2-1.0 [facility] Comment on above: Performed By: #### B RECEIVER SETTER, CMADM, CMP #### [facility] [address] [address] [address] Cherie Dior Calcium [Mass/Vol] 9.0 mg/dL Normal 8.5-10.1 [facility] Comment on above: Performed By: #### B RECEIVER SETTER, CMADM, CMP #### [facility] [address] [address] [address] Cherie Dior Chloride [Moles/Vol] 104 mmol/L Normal 98-107 [facility] Comment on above: Performed By: #### B RECEIVER SETTER, CMADM, CMP #### [facility] [address] [address] [address] Cherie Dior CO2 [Moles/Vol] 25.3 mmol/L Normal 21.0-32.[address] [facility] Comment on above: Performed By: #### B RECEIVER SETTER, CMADM, CMP #### [facility] [address] [place] [address] Dr. Cherie Dior Creatinine [Mass/Vol] 0.86 mg/dL Normal 0.55-1.02 [facility] Comment on above: Performed By: #### B RECEIVER SETTER, CMADM, CMP #### [facility] [address] [place] [address] Dr. Cherie Dior EGFR-AF MACEDONIAN >60 Normal >=[address] [facility] Comment on above: Performed By: #### B RECEIVER SETTER, CMADM, CMP #### [facility] [address] [place] [address] Dr. Cherie Dior EGFR-NON AF MACEDONIAN >60 Normal >=60 [facility] Comment on above: Performed By: #### B RECEIVER SETTER, CMADM, CMP #### [facility] [address] [address] [address] Cherie Dior Globulin (S) [Mass/Vol] 4.5 g/dL Normal T [facility] Comment on above: Performed By: #### B RECEIVER SETTER, CMADM, CMP #### [facility] [address] [address] [address] Cherie Dior Glucose [Mass/Vol] 85 mg/dL Normal 74-106 [facility] Comment on above: Performed By: #### B RECEIVER SETTER, CMADM, CMP #### [facility] [address] [place] [address] Dr. Cherie Dior Potassium [Moles/Vol] 3.8 mmol/L Normal 3.5-5.1 [facility] Comment on above: Performed By: #### B RECEIVER SETTER, CMADM, CMP #### [facility] [address] [place] [address] Dr. Cherie Dior Protein [Mass/Vol] 8.3 g/dL Critically high 6.4-8.2 [facility] Comment on above: Performed By: #### B RECEIVER SETTER, CMADM, CMP #### [facility] [address] [place] [address] Dr. Cherie Dior Sodium [Moles/Vol] 136 mmol/L Normal 136-145 [facility] Comment on above: Performed By: #### B RECEIVER SETTER, KAIDM, CMP #### [facility] [address] [place] [address] Dr. Cherie Dior Urea nitrogen [Mass/Vol] 14.0 mg/dL Normal 7.0-18.0 [facility] Comment on above: Performed By: #### B RECEIVER SETTER, KAIDM, CMP #### [facility] [address] [place] [address] Dr. Cherie Dior Urea nitrogen/Creatinine [Mass ratio] 16.3 mg/mg Normal [facility] Comment on above: Performed By: #### B RECEIVER SETTER, CMADM, CMP #### [facility] [address] [place] [address] Dr. Cherie Dior PROTIMEon 02-25-2022 INR Coag (PPP) [Relative time] 0.97 {INR} Normal [facility] Comment on above: Performed By: #### B RECEIVER SETTER, KAIDM, CMP #### [facility] [address] [place] [address] Dr. Cherie Dior INR GUIDELINES SEE BELOW Normal [facility] Comment on above: Result Comment: JORDEN RED INR: 2.0 - 3.0 CONDITIONS NOT LISTED BELOW 2.5 - 3.5 FOR PROSTHETIC HEART VALVE REPLACEMENT 2.5 - 3.5 RECURRENT THROMBOSIS Performed By: #### B RECEIVER SETTER, CMADM, CMP #### [facility] [address] [place] [address] Dr. Cherie Dior PT Coag (PPP) [Time] 10.5 s Normal 9.0-11.6 [facility] Comment on above: Performed By: #### B RECEIVER SETTER, CMADM, CMP #### [facility] [address] [place] [address] Dr. Cherie Dior PTTon 02-25-2022 aPTT Coag (Bld) [Time] 29.1 s Normal 22.3-36.[address] [facility] Comment on above: Performed By: #### B RECEIVER SETTER, CMADM, CMP #### [facility] [address] [place] [address] Dr. Cherie Dior URINE MICROSCOPIC ONLYon BACTERIA NONE SEEN Normal NONE SEEN [facility] Comment on above: Performed By: #### B RECEIVER SETTER, CMADM, CMP #### [facility] [address] [place] [address] Dr. Cherie Dior Bacteria identified Cx Nom (U) NOT INDICATED Normal [facility] Comment on above: Performed By: #### B RECEIVER SETTER, CMADM, CMP #### [facility] [address] [place] [address] Dr. Cherie Dior CAST NONE SEEN Normal NONE SEEN [facility] Comment on above: Performed By: #### B RECEIVER SETTER, CMADM, CMP #### [facility] [address] [place] [address] Dr. Cherie Dior Crystals LM Nom (Urine sed) NONE SEEN Normal NONE SEEN [facility] Comment on above: Performed By: #### B RECEIVER SETTER, CMADM, CMP #### [facility] [address] [place] [address] Dr. Cherie Dior Epithelial cells LM Ql (Urine sed) FEW Abnormal NONE SEEN /RARE [facility] Comment on above: Performed By: #### B RECEIVER SETTER, CMADM, CMP #### [facility] [address] [place] [address] Dr. Cherie Dior MUCOUS TRACE Abnormal NONE SEEN [facility] Comment on above: Performed By: #### B RECEIVER SETTER, CMADM, CMP #### [facility] [address] [place] [address] Dr. Cherie Dior RBC 5-10 Abnormal 0-2 [facility] Comment on above: Performed By: #### B RECEIVER SETTER, CMADM, CMP #### [facility] [address] [place] [address] Dr. Cherie Dior WBC NONE SEEN Normal NONE SEEN [facility] Comment on above: Performed By: #### B RECEIVER SETTER, CMADM, CMP #### [facility] [address] [place] [address] Dr. Cherie iDor Operative Reporton 2 Operative Report [id number] #[id number] Normal [facility] BUNon 02-16-2022 Urea nitrogen [Mass/Vol] 9.0 mg/dL Normal 7.0-18.0 [facility] Comment on above: Performed By: #### B UN, CREA #### [facility] [address] [place] [address] Dr. Cherie Dior CBC AUTO DIFFon 02-16-2022 BASO # 0.0 103/ul Normal 0.0-0.1 [facility] Comment on above: Performed By: #### C BC #### [facility] [address] [place] [address] Dr. Cherie Dior Basophils/100 WBC (Bld) 0.1 % Critically low 0.2-2.0 [facility] Comment on above: Performed By: #### C BC #### [facility] [address] [place] [address] Dr. Cherie Dior EO # 0.0 103/ul Normal 0.0-0.7 [facility] Comment on above: Performed By: #### C BC #### [facility] [address] [place] [address] Dr. Cherie Dior Eosinophils/100 WBC (Bld) 0.0 % Critically low 0.9-7.0 [facility] Comment on above: Performed By: #### C BC #### [facility] Laboratory [address] [place] [address] Dr. Cherie Dior Erythrocyte distribution width (RBC) [Ratio] 12.6 % Normal 11.0-15.0 [facility] Comment on above: Performed By: #### C BC #### [facility] [address] [address] [address] Cherie Dior Hematocrit (Bld) [Volume fraction] 31.0 % Critically low 36.0-48.0 [facility] Comment on above: Performed By: #### C BC #### [facility] [address] [place] [address] Dr. Cherie Dior Hemoglobin (Bld) [Mass/Vol] 10.2 g/dL Critically low 12.0-16.0 [facility] Comment on above: Performed By: #### C BC #### [facility] [address] [place] [address] Dr. Cherie Dior IG # 0.04 10e3/ul Critically high 0.00-0.03 [facility] Comment on above: Performed By: #### C BC #### [facility] [address] [place] [address] Dr. Cherie Dior IG % 0.3 % Normal 0.0-0.5 [facility] Comment on above: Performed By: #### C BC #### [facility] [address] [place] [address] Dr. Cherie Dior LYMPH # 1.1 103/ul Critically low 1.2-3.8 [facility] Comment on above: Performed By: #### C BC #### [facility] [address] [place] [address] Dr. Cherie Dior Lymphocytes/100 WBC (Bld) 9.6 % Critically low 20.5-60.0 [facility] Comment on above: Performed By: #### C BC #### [facility] [address] [place] [address] Dr. Cherie Dior MANUAL DIFF REQ NO Normal [facility] Comment on above: Performed By: #### C BC #### [facility] [address] [address] [address] Cherie Dior MCH (RBC) [Entitic mass] 29.1 pg Normal 26.7-34.0 [facility] Comment on above: Performed By: #### C BC #### [facility] [address] [place] [address] Dr. Cherie Dior MCHC (RBC) [Mass/Vol] 32.9 g/dL Normal 29.9-35.2 [facility] Comment on above: Performed By: #### C BC #### [facility] [address] [place] [address] Dr. Cherie Dior MCV (RBC) [Entitic vol] 88.3 fL Normal 81.0-99.0 [facility] Comment on above: Performed By: #### C BC #### [facility] [address] [place] [address] Dr. Cherie Dior MONO # 1.2 103/ul Critically high 0.3-0.8 [facility] Comment on above: Performed By: #### C BC #### [facility] [address] [place] [address] Dr. Cherie Dior Monocytes/100 WBC (Bld) 9.9 % Normal 1.7-12.0 [facility] Comment on above: Performed By: #### C BC #### [facility] [address] [place] [address] Dr. Cherie Dior NEUT # 9.5 103/ul Critically high 1.4-6.5 [facility] Comment on above: Performed By: #### C BC #### [facility] [address] [place] [address] Dr. Cherie Dior Neutrophils/100 WBC (Bld) 80.1 % Critically high 43.0-75.0 [facility] Comment on above: Performed By: #### C BC #### [facility] [address] [place] [address] Dr. Cherie Dior Platelet mean volume (Bld) [Entitic vol] 9.5 fL Normal 9.5-13.5 [facility] Comment on above: Performed By: #### C BC #### [facility] [address] [address] [address] Cherie Dior PLT 225 103/ul Normal 150-450 [facility] Comment on above: Performed By: #### C BC #### [facility] [address] [place] [address] Dr. Cherie Dior RBC 3.51 106/ul Critically low 4.20-5.40 [facility] Comment on above: Performed By: #### C BC #### [facility] [address] [place] [address] Dr. Cherie Dior WBC 11.8 103/ul Critically high 4.0-11.[address] [facility] Comment on above: Performed By: #### C BC #### [facility] [address] [place] [address] Dr. Cherie Dior CREATININEon 02-16-2022 Creatinine [Mass/Vol] 0.98 mg/dL Normal 0.55-1.02 [facility] Comment on above: Performed By: #### B UN, CREA #### [facility] [address] [place] [address] Dr. Cherie Dior EGFR-AF MACEDONIAN >60 Normal >=[address] [facility] Comment on above: Performed By: #### B UN, CREA #### [facility] [address] [place] [address] Dr. Cherie Dior EGFR-NON AF MACEDONIAN >60 Normal >=60 [facility] Comment on above: Performed By: #### B UN, CREA #### [facility] [address] [place] [address] Dr. Cherie Diro PREG HCG QUALon 02-15-2022 , QUAL Negative Normal NEGATIVE [facility] Comment on above: Performed By: #### I NFLUAB #### [facility] [address] [place] [address] Dr. Cherie Dior Consent for Procedure/Surger yon 02-14-2022 Consent for Procedure/Surgery [id number] #[id number]:127 Normal [facility] CBC AUTO DIFFon 02-12-2022 BASO # 0.0 103/ul Normal 0.0-0.1 [facility] Comment on above: Performed By: #### B RECEIVER SETTER, CMADM, CMP #### [facility] [address] [place] [address] Dr. Cherie Dior Basophils/100 WBC (Bld) 0.6 % Normal 0.2-2.0 [facility] Comment on above: Performed By: #### B RECEIVER SETTER, CMADM, CMP #### [facility] [address] [place] [address] Dr. Cherie Dior EO # 0.1 103/ul Normal 0.0-0.7 [facility] Comment on above: Performed By: #### B RECEIVER SETTER, CMADM, CMP #### [facility] [address] [place] [address] Dr. Cherie Dior Eosinophils/100 WBC (Bld) 4.0 % Normal 0.9-7.0 [facility] Comment on above: Performed By: #### B RECEIVER SETTER, CMADM, CMP #### [facility] [address] [place] [address] Dr. Cherie Dior Erythrocyte distribution width (RBC) [Ratio] 12.9 % Normal 11.0-15.0 [facility] Comment on above: Performed By: #### B RECEIVER SETTER, CMADM, CMP #### [facility] [address] [place] [address] Dr. Cherie Dior Hematocrit (Bld) [Volume fraction] 38.8 % Normal 36.0-48.0 [facility] Comment on above: Performed By: #### B RECEIVER SETTER, CMADM, CMP #### [facility] [address] [place] [address] Dr. Cherie Dior Hemoglobin (Bld) [Mass/Vol] 12.6 g/dL Normal 12.0-16.0 [facility] Comment on above: Performed By: #### B RECEIVER SETTER, CMADM, CMP #### [facility] [address] [place] [address] Dr. Cherie Dior IG # 0.00 10e3/ul Normal 0.00-0.03 [facility] Comment on above: Performed By: #### B RECEIVER SETTER, CMADM, CMP #### [facility] [address] [address] [address] Cherie Dior IG % 0.0 % Normal 0.0-0.5 [facility] Comment on above: Performed By: #### B RECEIVER SETTER, CMADM, CMP #### [facility] [address] [place] [address] Dr. Cherie Dior LYMPH # 1.3 103/ul Normal 1.2-3.8 [facility] Comment on above: Performed By: #### B RECEIVER SETTER, CMADM, CMP #### [facility] [address] [place] [address] Dr. Cherie Dior Lymphocytes/100 WBC (Bld) 36.5 % Normal 20.5-60.0 [facility] Comment on above: Performed By: #### B RECEIVER SETTER, CMADM, CMP #### [facility] [address] [place] [address] Dr. Cherie Dior MANUAL DIFF REQ NO Normal [facility] Comment on above: Performed By: #### B RECEIVER SETTER, CMADM, CMP #### [facility] [address] [place] [address] Dr. Cherie Dior MCH (RBC) [Entitic mass] 29.4 pg Normal 26.7-34.0 [facility] Comment on above: Performed By: #### B RECEIVER SETTER, CMADM, CMP #### [facility] [address] [place] [address] Dr. Cherie Dior MCHC (RBC) [Mass/Vol] 32.5 g/dL Normal 29.9-35.2 [facility] Comment on above: Performed By: #### B RECEIVER SETTER, CMADM, CMP #### [facility] [address] [place] [address] Dr. Cherie Dior MCV (RBC) [Entitic vol] 90.7 fL Normal 81.0-99.0 [facility] Comment on above: Performed By: #### B RECEIVER SETTER, CMADM, CMP #### [facility] [address] [place] [address] Dr. Cherie Dior MONO # 0.5 103/ul Normal 0.3-0.8 [facility] Comment on above: Performed By: #### B RECEIVER SETTER, MEAGHAN, CMP #### [facility] [address] [place] [address] Dr. Cherie Dior Monocytes/100 WBC (Bld) 12.9 % Critically high 1.7-12. 0 [facility] Comment on above: Performed By: #### B RECEIVER SETTER, CMADM, CMP #### [facility] [address] [place] [address] Dr. Cherie Dior NEUT # 1.6 103/ul Normal 1.4-6.5 [facility] Comment on above: Performed By: #### B RECEIVER SETTER, KAIDM, CMP #### [facility] [address] [place] [address] Dr. Cherie Dior Neutrophils/100 WBC (Bld) 46.0 % Normal 43.0-75.0 [facility] Comment on above: Performed By: #### B RECEIVER SETTER, CMADM, CMP #### [facility] [address] [place] [address] Dr. Cherie Dior Platelet mean volume (Bld) [Entitic vol] 9.8 fL Normal 9.5-13.5 [facility] Comment on above: Performed By: #### B RECEIVER SETTER, KAIDM, CMP #### [facility] [address] [place] [address] Dr. Cherie Dior PLT 202 103/ul Normal 150-450 [facility] Comment on above: Performed By: #### B RECEIVER SETTER, CMADM, CMP #### [facility] [address] [place] [address] Dr. Cherie Dior RBC 4.28 106/ul Normal 4.20-5.40 [facility] Comment on above: Performed By: #### B RECEIVER SETTER, CMADM, CMP #### [facility] [address] [place] [address] Dr. Cherie Dior WBC 3.5 103/ul Critically low 4.0-11.0 [facility] Comment on above: Performed By: #### B RECEIVER SETTER, CMADM, CMP #### [facility] [address] [place] [address] Dr. Cherie Dior Covid-19 PCR ([facility])on 01-21 SARS-CoV-2 (COVID-19) RNA JULEE+probe Ql (Unsp spec) Not detected Normal NOT DETECTED [facility] Comment on above: Result Comment: This test is not yet approved or cleared by the [place] FDA. When there are no FDA-approved or cleared tests available, and other criteria are met, FDA can make tests available under an emergency access mechanism called an Emergency Use Authorization (EUA). The EUA for this test is supported by the Utilization Management Manager of Health and Human Service's (HHS's) declaration [...] consistent with SARS-CoV-2. Performed By: #### B RECEIVER SETTER, KAIDM, CMP #### [facility] [address] [place] [address] Dr. Cherie Dior PROF CHEM 8 (BAS METB)on Anion gap [Moles/Vol] 7.5 mmol/L Normal [facility] Comment on above: Performed By: #### B MP #### [facility] [address] [place] [address] Dr. Cherie Dior Calcium [Mass/Vol] 8.4 mg/dL Critically low 8.5-10.[address] [facility] Comment on above: Performed By: #### B MP #### [facility] [address] [place] [address] Dr. Cherie Dior Chloride [Moles/Vol] 106 mmol/L Normal 98-107 [facility] Comment on above: Performed By: #### B MP #### [facility] [address] [address] [address] Cherie Dior CO2 [Moles/Vol] 28.3 mmol/L Normal 21.0-32.[address] [facility] Comment on above: Performed By: #### B MP #### [facility] [address] [address] [address] Cherie Dior Creatinine [Mass/Vol] 0.81 mg/dL Normal 0.55-1.02 [facility] Comment on above: Performed By: #### B MP #### [facility] [address] [address] [address] Cherie Dior EGFR-AF MACEDONIAN >60 Normal >=[address] [facility] Comment on above: Performed By: #### B MP #### [facility] [address] [place] [address] Dr. Cherie Dior EGFR-NON AF MACEDONIAN >60 Normal >=60 [facility] Comment on above: Performed By: #### B MP #### [facility] [address] [address] [address] Cherie Dior Glucose [Mass/Vol] 75 mg/dL Normal 74-106 [facility] Comment on above: Performed By: #### B MP #### [facility] [address] [address] [address] Cherie Dior Potassium [Moles/Vol] 3.8 mmol/L Normal 3.5-5.1 [facility] Comment on above: Performed By: #### B MP #### [facility] [address] [address] [address] Cherie Dior Sodium [Moles/Vol] 138 mmol/L Normal 136-145 [facility] Comment on above: Performed By: #### B MP #### [facility] [address] [place] [address] Dr. Cherie Dior Urea nitrogen [Mass/Vol] 8.0 mg/dL Normal 7.0-18.0 [facility] Comment on above: Performed By: #### B MP #### [facility] [address] [address] [address] Cherie Dior Urea nitrogen/Creatinine [Mass ratio] 9.9 mg/mg Normal [facility] Comment on above: Performed By: #### B MP #### [facility] [address] [place] [address] Dr. Cherie Dior PROTIMEon 02-12-2022 INR Coag (PPP) [Relative time] 0.97 {INR} Normal [facility] Comment on above: Performed By: #### B RECEIVER SETTER, MEAGHAN, CMP #### [facility] [address] [place] [address] Dr. Cherie Dior INR GUIDELINES SEE BELOW Normal [facility] Comment on above: Result Comment: JORDEN RED INR: 2.0 - 3.0 CONDITIONS NOT LISTED BELOW 2.5 - 3.5 FOR PROSTHETIC HEART VALVE REPLACEMENT 2.5 - 3.5 RECURRENT THROMBOSIS Performed By: #### B RECEIVER SETTER, MEAGHAN, CMP #### [facility] [address] [place] [address] Dr. Cherie Dior PT Coag (PPP) [Time] 10.5 s Normal 9.0-11.6 [facility] Comment on above: Performed By: #### B RECEIVER SETTER, MEAGHAN, CMP #### [facility] [address] [place] [address] Dr. Cherie Dior PTTon 02-12-2022 aPTT Coag (Bld) [Time] 25.1 s Normal 22.3-36.2 [facility] Comment on above: Performed By: #### B RECEIVER SETTER, MEAGHAN, CMP #### [facility] [address] [place] [address] Dr. Cherie Dior TYPE AND SCREENon 02-12-2022 TYPE AND SCREEN Negative Normal [facility] Comment on above: Performed By: #### I NFLUAB #### [facility] [address] [place] [address] Dr. Cherie Dior Physician Referralon 022 Physician Referral [id number] #[id number]:[id number] Normal [facility] PREG HCG QUALon 01-05-2022 , QUAL Negative Normal NEGATIVE [facility] Comment on above: Performed By: #### B RECEIVER SETTER, CMADM, CMP #### [facility] [id number] Cherie Dior MG MAMM SCREEN 3D ARJUN CADon 01-02-2022 MG MAMM SCREEN 3D ARJUN CAD Patient: NEEL GARCIA Exam Date: 01/02/2022 : 1980 Gender:F Ordering : DR INGRID DE LOS SANTOS . Admission #: [id number] Family : Order #: [id number] CLICK HERE TO VIEW EXAM RADIOLOGY REPORT PROCEDURE: MAMMOGRAM SCREENING 3D BILATERAL CAD COMPARISON: MG MAMM SCREEN ARJUN W CAD, 07/29/2018. INDICATIONS: Screening mammography Calculator Name NCI Breast Cancer Risk Assessment Tool 5 Year Breast Cancer Risk Not Reported. Lifetime Breast Cancer Risk Not Reported. Personal Breast Cancer No Personal Ovarian Cancer No Treatments None Family Cancers None LOCATION: [facility] BREAST COMPOSITION: Heterogeneously dense,which may obscure [...] MD on 01/02/2022 at 11:25 Normal [facility] Covid-19 PCR ([facility])on SARS-CoV-2 (COVID-19) RNA JULEE+probe Ql (Unsp spec) Not detected Normal NOT DETECTED [facility] Comment on above: Result Comment: This test is not yet approved or cleared by the [place] FDA. When there are no FDA-approved or cleared tests available, and other criteria are met, FDA can make tests available under an emergency access mechanism called an Emergency Use Authorization (EUA). The EUA for this test is supported by the Utilization Management Manager of Health and Human Service's (HHS's) declaration [...] SARS-CoV-2. Performed By: #### I NFLUAB #### [facility] [address] [place] [address] Dr. Cherie Dior US PELVIS AND TRANSVAGon [...] her menstrual cycle. Electronically authenticated by: AUSTIN MCGUIRE Date: 2021-12-20 11:02 Normal [facility] PAP ACOG PANEL 2: 30 to 65on 12-19-2021 . . Normal [facility] Comment on above: Result Comment: Perf ormed at: WB Performed By: #### B RECEIVER SETTER, CMADM, CMP #### [facility] [address] [address] [address] Cherie Dior Age Gdln ACOG Testing 30-65 Normal [facility] Comment on above: Performed By: #### B RECEIVER SETTER, CMADM, CMP #### [facility] [address] [address] [address] Cherie Dior DIAGNOSIS: Comment Normal [facility] Comment on above: Result Comment: NEGA TIVE FOR INTRAEPITHELIAL LESION OR MALIGNANCY. Performed at: WB Performed By: #### B RECEIVER SETTER, CMADM, CMP #### [facility] [address] [address] [address] Cherie Dior HPV Aptima Negative Normal Negative [facility] Comment on above: Result Comment: This nucleic acid amplification test detects fourteen high-risk HPV types (16,18,31,33,35,39,45,51,52,56,58,59,66,68) without differentiation. Performed at: =G Performed By: #### B RECEIVER SETTER, CMADM, CMP #### [facility] [address] [address] [address] Cherie Dior Methodology: Comment Normal [facility] Comment on above: Result Comment: This liquid based ThinPrep(R) pap test was screened with the use of an image guided system. Performed at: WB Performed By: #### B RECEIVER SETTER, CMADM, CMP #### [facility] [address] [place] [address] Dr. Cherie Dior Note: Comment Normal [facility] Comment on above: Result Comment: The Pap smear is a screening test designed to aid in the detection of premalignant and malignant conditions of the uterine cervix. It is not a diagnostic procedure and should not be used as the sole means of detecting cervical cancer. Both false-positive and false-negative reports do occur. . Performed at: WB Performed By: #### B RECEIVER SETTER, CMADM, CMP #### [facility] [address] [address] [address] Cherie Dior Performed by: Comment Normal [facility] Comment on above: Result Comment: Griselda Drummond [employer] Dec[employer] Designer (ASCP) Performed at: WB Performed By: #### B RECEIVER SETTER, CMADM, CMP #### [facility] [address] [place], [place] [address] Dr. Cherie Dior Specimen adequacy: Comment Normal [facility] Comment on above: Result Comment: Sati sfactory for evaluation. Endocervical and/or squamous metaplastic cells (endocervical component) are present. Performed at: WB Performed By: #### B RECEIVER SETTER, CMADM, CMP #### [facility] [address] [place], [place] [address] Dr. Cherie Jurado 11-14-2021 CNPN Telephone (HEMASA) NEEL GARCIA ([id number]) 1980 F Date Time Provider Department 11/14/21 JIAN DE LA CRUZ During your visit today, we recorded the following information about you: Jian De La Cruz RN 11/14/2021 3:15 PM Signed ----- Message from Alina Barros RN sent at 11/13/2021 1:26 PM EDT ----- ----- Message ----- From: Paolo Ward MD Sent: 11/11/2021 6:10 AM EDT To: Alina Barros RN [place]. Can you please call pt and let her know that the iron profile is normal? No change in the recommendation. Thanks, MAKENZIE De La Cruz RN 11/14/2021 3:15 PM Signed Informed pt of Dr Ward's message. Pt [...] JIAN DE LA CRUZ on 11/14/21 Normal [facility] CBC W Auto Differential pane l (Bld)on 11-10-2021 Basophils (Bld) [#/Vol] 0.03 10*3/uL Normal <0.11 [facility] Comment on above: Order Comment: Speci men Type: BLOOD SPECIMENOrdering Facility: [facility] Address: [address] [place] [address] Performed By: #### 5 7021-8 ####[facility] LABCLIA [id number] [place] [address] Basophils/100 WBC (Bld) 0.9 % Normal [facility] Comment on above: Order Comment: Speci men Type: BLOOD SPECIMENOrdering Facility: [facility] Address: [address] [place] [address] Performed By: #### 5 7021-8 ####[facility] LABCLIA [id number] [place] [address] Differential cell count method Nom (Bld) Auto Normal [facility] Comment on above: Order Comment: Speci men Type: BLOOD SPECIMENOrdering Facility: [facility] Address: [address] [place] [address] Performed By: #### 5 7021-8 ####[facility] LABCLIA [id number] [place] [address] Eosinophils (Bld) [#/Vol] 0.14 10*3/uL Normal <0.46 [facility] Comment on above: Order Comment: Speci men Type: BLOOD SPECIMENOrdering Facility: [facility] Address: [address] [place] [address] Performed By: #### 5 7021-8 ####[facility] LABCLIA [id number] [place] [address] Eosinophils/100 WBC (Bld) 4.2 % Normal [facility] Comment on above: Order Comment: Speci men Type: BLOOD SPECIMENOrdering Facility: [facility] Address: [address] [place] [address] Performed By: #### 5 7021-8 ####[facility] LABCLIA [id number] [place] [address] Erythrocyte distribution width (RBC) [Ratio] 15.4 % High 11.5-15.0 [facility] Comment on above: Order Comment: Speci men Type: BLOOD SPECIMENOrdering Facility: [facility] Address: [address] [place] [address] Performed By: #### 5 7021-8 ####[facility] LABCLIA [id number] [place] [address] Hematocrit (Bld) [Volume fraction] 38.0 % Normal 36.0-46.0 [facility] Comment on above: Order Comment: Speci men Type: BLOOD SPECIMENOrdering Facility: [facility] Address: [address] [place] [address] Performed By: #### 5 7021-8 ####[facility] LABCLIA [id number] [place] [address] Hemoglobin (Bld) [Mass/Vol] 12.0 g/dL Normal 11.5-15.5 [facility] Comment on above: Order Comment: Speci men Type: BLOOD SPECIMENOrdering Facility: [facility] Address: [address] [place] [address] Performed By: #### 5 7021-8 ####[facility] LABCLIA [id number] [place] [address] IMMATURE GRAN % 0.3 % Normal [facility] Comment on above: Order Comment: Speci men Type: BLOOD SPECIMENOrdering Facility: [facility] Address: [address] [place] [address] Performed By: #### 5 7021-8 ####[facility] LABIA [id number] [place] [address] IMMATURE GRAN ABS <0.03 Normal <0.10 [facility] Comment on above: Order Comment: Speci men Type: BLOOD SPECIMENOrdering Facility: [facility] Address: [address] [place] [address] Performed By: #### 5 7021-8 ####[facility] LABIA [id number] [place] [address] Lymphocytes (Bld) [#/Vol] 1.26 10*3/uL Normal 1.00-4.00 [facility] Comment on above: Order Comment: Speci men Type: BLOOD SPECIMENOrdering Facility: [facility] Address: [address] [place] [address] Performed By: #### 5 7021-8 ####[facility] LABIA [id number] [place] [address] Lymphocytes/100 WBC (Bld) 38.1 % Normal [facility] Comment on above: Order Comment: Speci men Type: BLOOD SPECIMENOrdering Facility: [facility] Address: [address] [place] [address] Performed By: #### 5 7021-8 ####[facility] LABIA [id number] [place] [address] MCH (RBC) [Entitic mass] 27.9 pg Normal 26.0-34.0 [facility] Comment on above: Order Comment: Speci men Type: BLOOD SPECIMENOrdering Facility: [facility] Address: [address] [place], [place] [id number] Performed By: #### 5 7021-8 ####[facility] LABCLIA [id number] [place] [address] MCHC (RBC) [Mass/Vol] 31.6 g/dL Normal 30.5-36.0 [facility] Comment on above: Order Comment: Speci men Type: BLOOD SPECIMENOrdering Facility: [facility] Address: [address] [place] [address] Performed By: #### 5 7021-8 ####[facility] LABCLIA [id number] [place] [address] MCV (RBC) [Entitic vol] 88.4 fL Normal 80.0-100.0 C [facility] Comment on above: Order Comment: Speci men Type: BLOOD SPECIMENOrdering Facility: [facility] Address: [address] [place] [address] Performed By: #### 5 7021-8 ####[facility] LABCLIA [id number] [place] [address] Monocytes (Bld) [#/Vol] 0.43 10*3/uL Normal <0.87 [facility] Comment on above: Order Comment: Speci men Type: BLOOD SPECIMENOrdering Facility: [facility] Address: [address] [place] [address] Performed By: #### 5 7021-8 ####[facility] LABCLIA [id number] [place] [address] Monocytes/100 WBC (Bld) 13.0 % Normal C [facility] Comment on above: Order Comment: Speci men Type: BLOOD SPECIMENOrdering Facility: [facility] Address: [address] [place] [address] Performed By: #### 5 7021-8 ####[facility] LABCLIA [id number] [place] [address] Neutrophils (Bld) [#/Vol] 1.44 10*3/uL Low 1.45-7.50 [facility] Comment on above: Order Comment: Speci men Type: BLOOD SPECIMENOrdering Facility: [facility] Address: [address] [place] [address] Performed By: #### 5 7021-8 ####[facility] LABCLIA [id number] [place] [address] Neutrophils/100 WBC (Bld) 43.5 % Normal [facility] Comment on above: Order Comment: Speci men Type: BLOOD SPECIMENOrdering Facility: [facility] Address: [address] [place] [address] Performed By: #### 5 7021-8 ####[facility] LABCLIA [id number] [place] [address] Nucleated RBC (Bld) [#/Vol] 10*3/uL Normal <0.01 [facility] Comment on above: Order Comment: Speci men Type: BLOOD SPECIMENOrdering Facility: [facility] Address: [address] [place] [address] Performed By: #### 5 7021-8 ####[facility] LABCLIA [id number] [place] [address] Nucleated RBC/100 WBC (Bld) [Ratio] 0.0 /100 WBC Normal [facility] Comment on above: Order Comment: Speci men Type: BLOOD SPECIMENOrdering Facility: [facility] Address: [address] [place], [place] [address] Performed By: #### 5 7021-8 ####[facility] LABIA [id number] [place] [address] Platelet mean volume (Bld) [Entitic vol] 9.5 fL Normal 9.0-12.7 [facility] Comment on above: Order Comment: Speci men Type: BLOOD SPECIMENOrdering Facility: [facility] Address: [address] [place], [place] [address] Performed By: #### 5 7021-8 ####[facility] LABCLIA [id number] [place] [address] Platelets (Bld) [#/Vol] 239 10*3/uL Normal 150-400 [facility] Comment on above: Order Comment: Speci men Type: BLOOD SPECIMENOrdering Facility: [facility] Address: [address] [place] [address] Performed By: #### 5 7021-8 ####[facility] LABCLIA [id number] [place] [address] RBC (Bld) [#/Vol] 4.30 10*6/uL Normal 3.90-5.20 [facility] Comment on above: Order Comment: Speci men Type: BLOOD SPECIMENOrdering Facility: [facility] Address: [address] [place] [address] Performed By: #### 5 7021-8 ####[facility] LABIA [id number] [place] [address] WBC (Bld) [#/Vol] 3.31 10*3/uL Low 3.70-11.00 [facility] Comment on above: Order Comment: Speci men Type: BLOOD SPECIMENOrdering Facility: [facility] Address: [address] [place] [address] Performed By: #### 5 7021-8 ####[facility] LABIA [id number] [place] [address] CNOVSPon 11-10-2021 CNOVSP Visit (SP) Office ([place]) NEEL GARCIA ([id number]) 1980 F Date Time Provider Department 11/10/21 [...] provide more details. She was born in [place] and has lived in [place] in the past. She reports occasional smoking - cigars that are dipped in cognac - last use a month back. Occasional alcohol use. No other substance abuse reported. She lives with her with 5 children. She is not working now but used to work at [employer] (was laid off during COVID-). MEDICATIONS AND ALLERGIES: Reviewed PHYSICAL EXAM BP [...] which included preparing to see the patient, [id number] patient care, completing clinical documentation, obtaining and/or reviewing separately obtained history, performing a medically appropriate examination, counseling and educating the patient/family/careg iver, ordering medications, tests, or pro (more content not included)... Normal [facility] Comprehensive metabolic 2000 panelon 11-10-2021 Albumin [Mass/Vol] 4.1 g/dL Normal 3.9-4.9 [facility] Comment on above: Order Comment: Speci men Type: BLOOD SPECIMENOrdering Facility: [facility] Address: [address] [place] [address] Performed By: #### 2 4323-8 ####[facility] LABCLIA [id number] [place] [address] ALP [Catalytic activity/Vol] 64 U/L Normal 34-123 [facility] Comment on above: Order Comment: Speci men Type: BLOOD SPECIMENOrdering Facility: [facility] Address: [address] [place] [address] Performed By: #### 2 4323-8 ####[facility] LABCLIA [id number] [place] [address] ALT [Catalytic activity/Vol] 26 U/L Normal 7-38 [facility] Comment on above: Order Comment: Speci men Type: BLOOD SPECIMENOrdering Facility: [facility] Address: [address] [place] [address] Performed By: #### 2 4323-8 ####[facility] LABCLIA [id number] [place] [address] Anion gap [Moles/Vol] 8 mmol/L Low 9-18 [facility] Comment on above: Order Comment: Speci men Type: BLOOD SPECIMENOrdering Facility: [facility] Address: [address] [place] [address] Performed By: #### 2 4323-8 ####[facility] LABCLIA [id number] [place] [address] AST [Catalytic activity/Vol] 22 U/L Normal 13-35 [facility] Comment on above: Order Comment: Speci men Type: BLOOD SPECIMENOrdering Facility: [facility] Address: [address] [place] [address] Performed By: #### 2 4323-8 ####[facility] LABCLIA [id number] [place] [address] Bilirubin [Mass/Vol] 0.6 mg/dL Normal 0.2-1.3 [facility] Comment on above: Order Comment: Speci men Type: BLOOD SPECIMENOrdering Facility: [facility] Address: [address] [place] [address] Performed By: #### 2 4323-8 ####[facility] LABCLIA [id number] [place] [address] Calcium [Mass/Vol] 9.3 mg/dL Normal 8.5-10.2 [facility] Comment on above: Order Comment: Speci men Type: BLOOD SPECIMENOrdering Facility: [facility] Address: [address] [place] [address] Performed By: #### 2 4323-8 ####[facility] LABCLIA [id number] [place] [address] Chloride [Moles/Vol] 107 mmol/L High 97-105 [facility] Comment on above: Order Comment: Speci men Type: BLOOD SPECIMENOrdering Facility: [facility] Address: [address] [place] [address] Performed By: #### 2 4323-8 ####[facility] LABCLIA [id number] [place] [address] CO2 [Moles/Vol] 27 mmol/L Normal 22-30 [facility] Comment on above: Order Comment: Speci men Type: BLOOD SPECIMENOrdering Facility: [facility] Address: [address] [place] [address] Performed By: #### 2 4323-8 ####[facility] LABCLIA [id number] [place] [address] Creatinine [Mass/Vol] 0.91 mg/dL Normal 0.58-0.96 [facility] Comment on above: Order Comment: Andrew parks Type: BLOOD SPECIMENOrdering Facility: [facility] Address: [address] [id number] Performed By: #### 2 4323-8 ####[facility] LABCLIA [id number] [place] [address] ESTIMATED GLOMERULAR FILTRATION RATE 80 mL/min/1.73m??? Normal >=60 [facility] Comment on above: Order Comment: [place] Type: BLOOD SPECIMENOrdering Facility: [facility] Address: [address] [place] [address] Result Comment: Mari mated Glomerular Filtration Rate [...] actual GFR. Performed By: #### 2 4323-8 ####[facility] LABIA [id number] [place] [address] Glucose [Mass/Vol] 102 mg/dL High 74-99 [facility] Comment on above: Order Comment: [place] Type: BLOOD SPECIMENOrdering Facility: [facility] Address: [address] [place] [address] Result Comment: The [place] [employer] (ADA) provides guidance for cutoff [...] Standards of Medical Care in Diabetes 2016, [place] [employer]. Diabetes Care. 2016.39(Suppl 1). Performed By: #### 2 4323-8 ####[facility] LABCLIA [id number] [place] [address] Potassium [Moles/Vol] 4.0 mmol/L Normal 3.7-5.1 [facility] Comment on above: Order Comment: Speci men Type: BLOOD SPECIMENOrdering Facility: [facility] Address: [address] [place] [address] Performed By: #### 2 4323-8 ####[facility] LABIA [id number] [place] [address] Protein [Mass/Vol] 6.6 g/dL Normal 6.3-8.0 [facility] Comment on above: Order Comment: Speci men Type: BLOOD SPECIMENOrdering Facility: [facility] Address: [address] [place] [address] Performed By: #### 2 4323-8 ####[facility] LABCLIA [id number] [place] [address] Sodium [Moles/Vol] 142 mmol/L Normal 136-144 [facility] Comment on above: Order Comment: Speci men Type: BLOOD SPECIMENOrdering Facility: [facility] Address: [address] [place] [address] Performed By: #### 2 4323-8 ####[facility] LABCLIA [id number] [place] [address] Urea nitrogen [Mass/Vol] 13 mg/dL Normal 7-21 [facility] Comment on above: Order Comment: Speci men Type: BLOOD SPECIMENOrdering Facility: [facility] Address: [address] [place] [address] Performed By: #### 2 4323-8 ####[facility] LABCLIA [id number] [place] [address] Ferritin SerPl-mCncon 2021 Ferritin [Mass/Vol] 198.0 ng/mL Normal 14.7-205.1 [facility] Comment on above: Order Comment: Speci men Type: BLOOD SPECIMENOrdering Facility: [facility] Address: [address] [place] [address] Performed By: #### 2 276-4 ####[facility] LABCLIA [id number] [place] [address] [place] Iron and Iron binding capaci ty panelon 11-10-2021 Iron [Mass/Vol] 62 ug/dL Normal 41-186 [facility] Comment on above: Order Comment: Speci men Type: BLOOD SPECIMENOrdering Facility: [facility] Address: [address] [place] [address] Performed By: #### 5 0190-8 ####[facility] LABCLIA [id number] [address] [place] Iron binding capacity [Mass/Vol] 311 ug/dL Normal 232-386 [facility] Comment on above: Order Comment: Speci men Type: BLOOD SPECIMENOrdering Facility: [facility] Address: [address] [place] [address] Performed By: #### 5 0190-8 ####[facility] LABCLIA [id number] [place] [address] [place] Iron/TIBC [Molar ratio] 19.9 % Normal 15.0-57.0 [facility] Comment on above: Order Comment: Speci men Type: BLOOD SPECIMENOrdering Facility: [facility] Address: [address] [place], [place] [address] Performed By: #### 5 0190-8 ####[facility] LABCLIA [id number] [place] [address] [place] CBC W Auto Differential pane l (Bld)on 10-06-2021 Abs Immature Gran <0.03 <0.10 k/uL [facility] Basophils (Bld) [#/Vol] 0.04 10*3/uL <0.11 k/uL [facility] Basophils (Bld) [#/Vol] 0.04 10*3/uL Normal <0.11 [facility] Comment on above: Order Comment: Speci men Type: BLOOD SPECIMENOrdering Facility: [facility] Address: [address] [place] [address] Performed By: #### 5 7021-8 ####[facility] LABCLIA [id number] [place] [address] Basophils/100 WBC (Bld) 1.0 % [facility] Basophils/100 WBC (Bld) 1.0 % Normal C [facility] Comment on above: Order Comment: Speci men Type: BLOOD SPECIMENOrdering Facility: [facility] Address: [address] [place] [address] Performed By: #### 5 7021-8 ####[facility] LABIA [id number] [place] [address] Differential cell count method Nom (Bld) Auto [facility] Differential cell count method Nom (Bld) Auto Normal [facility] Comment on above: Order Comment: Speci men Type: BLOOD SPECIMENOrdering Facility: [facility] Address: [address] [place] [address] Performed By: #### 5 7021-8 ####[facility] LABIA [id number] [place] [address] Eosinophils (Bld) [#/Vol] 0.21 10*3/uL <0.46 k/uL [facility] Eosinophils (Bld) [#/Vol] 0.21 10*3/uL Normal <0.46 [facility] Comment on above: Order Comment: Speci men Type: BLOOD SPECIMENOrdering Facility: [facility] Address: [address] [place] [address] Performed By: #### 5 7021-8 ####[facility] LABCLIA [id number] [place] [address] Eosinophils/100 WBC (Bld) 5.3 % [facility] Eosinophils/100 WBC (Bld) 5.3 % Normal [facility] Comment on above: Order Comment: Speci men Type: BLOOD SPECIMENOrdering Facility: [facility] Address: [address] [place] [address] Performed By: #### 5 7021-8 ####[facility] LABCLIA [id number] [place] [address] Erythrocyte distribution width (RBC) [Ratio] 14.1 % 11.5 - 15.0 % [facility] Erythrocyte distribution width (RBC) [Ratio] 14.1 % Normal 11.5-15.0 [facility] Comment on above: Order Comment: Speci men Type: BLOOD SPECIMENOrdering Facility: [facility] Address: [address] [place] [address] Performed By: #### 5 7021-8 ####[facility] LABCLIA [id number] [place] [address] Hematocrit (Bld) [Volume fraction] 38.1 % 36.0 - 46.0 % [facility] Hematocrit (Bld) [Volume fraction] 38.1 % Normal 36.0-46.0 [facility] Comment on above: Order Comment: Speci men Type: BLOOD SPECIMENOrdering Facility: [facility] Address: [address] [place] [address] Performed By: #### 5 7021-8 ####[facility] LABCLIA [id number] [place] [address] Hemoglobin (Bld) [Mass/Vol] 12.2 g/dL 11.5 - 15.5 g/dL [facility] Hemoglobin (Bld) [Mass/Vol] 12.2 g/dL Normal 11.5-15.5 [facility] Comment on above: Order Comment: Speci men Type: BLOOD SPECIMENOrdering Facility: [facility] Address: [address] [place] [address] Performed By: #### 5 7021-8 ####[facility] LABCLIA [id number] [place] [address] Immature Gran % 0.3 % [facility] IMMATURE GRAN % 0.3 % Normal [facility] Comment on above: Order Comment: Speci men Type: BLOOD SPECIMENOrdering Facility: [facility] Address: [address] [place] [address] Performed By: #### 5 7021-8 ####[facility] LABCLIA [id number] [place] [address] IMMATURE GRAN ABS <0.03 Normal <0.10 [facility] Comment on above: Order Comment: Speci men Type: BLOOD SPECIMENOrdering Facility: [facility] Address: [address] [place] [address] Performed By: #### 5 7021-8 ####[facility] LABCLIA [id number] [place] [address] Lymphocytes (Bld) [#/Vol] 1.37 10*3/uL 1.00 - 4.00 k/uL [facility] Lymphocytes (Bld) [#/Vol] 1.37 10*3/uL Normal 1.00-4.00 [facility] Comment on above: Order Comment: Speci men Type: BLOOD SPECIMENOrdering Facility: [facility] Address: [address] [place] [address] Performed By: #### 5 7021-8 ####[facility] LABCLIA [id number] [place] [address] Lymphocytes/100 WBC (Bld) 34.3 % [facility] Lymphocytes/100 WBC (Bld) 34.3 % Normal [facility] Comment on above: Order Comment: Speci men Type: BLOOD SPECIMENOrdering Facility: [facility] Address: [address] [place] [address] Performed By: #### 5 7021-8 ####[facility] LABCLIA [id number] [place] [address] MCH (RBC) [Entitic mass] 27.2 pg 26.0 - 34.0 pg [facility] MCH (RBC) [Entitic mass] 27.2 pg Normal 26.0-34.0 [facility] Comment on above: Order Comment: Speci men Type: BLOOD SPECIMENOrdering Facility: [facility] Address: [address] [place] [address] Performed By: #### 5 7021-8 ####[facility] LABCLIA [id number] [place] [id number] MCHC (RBC) [Mass/Vol] 32.0 g/dL 30.5 - 36.0 g/dL [facility] MCHC (RBC) [Mass/Vol] 32.0 g/dL Normal 30.5-36.0 [facility] Comment on above: Order Comment: Speci men Type: BLOOD SPECIMENOrdering Facility: [facility] Address: [address] [place] [address] Performed By: #### 5 7021-8 ####[facility] LABCLIA [id number] [place] [address] MCV (RBC) [Entitic vol] 85.0 fL 80.0 - 100.0 fL [facility] MCV (RBC) [Entitic vol] 85.0 fL Normal 80.0-100.0 C [facility] Comment on above: Order Comment: Speci men Type: BLOOD SPECIMENOrdering Facility: [facility] Address: [address] [place] [address] Performed By: #### 5 7021-8 ####[facility] LABCLIA [id number] [place] [address] Monocytes (Bld) [#/Vol] 0.46 10*3/uL <0.87 k/uL [facility] Monocytes (Bld) [#/Vol] 0.46 10*3/uL Normal <0.87 [facility] Comment on above: Order Comment: Speci men Type: BLOOD SPECIMENOrdering Facility: [facility] Address: [address] [place] [address] Performed By: #### 5 7021-8 ####[facility] LABCLIA [id number] [place] [address] Monocytes/100 WBC (Bld) 11.5 % C [facility] Monocytes/100 WBC (Bld) 11.5 % Normal C [facility] Comment on above: Order Comment: Speci men Type: BLOOD SPECIMENOrdering Facility: [facility] Address: [address] [place] [address] Performed By: #### 5 7021-8 ####[facility] LABCLIA [id number] [place] [address] Neutrophils (Bld) [#/Vol] 1.91 10*3/uL 1.45 - 7.50 k/uL [facility] Neutrophils (Bld) [#/Vol] 1.91 10*3/uL Normal 1.45-7.50 [facility] Comment on above: Order Comment: Speci men Type: BLOOD SPECIMENOrdering Facility: [facility] Address: [address] [place] [address] Performed By: #### 5 7021-8 ####[facility] LABCLIA [id number] [place] [address] Neutrophils/100 WBC (Bld) 47.6 % [facility] Neutrophils/100 WBC (Bld) 47.6 % Normal [facility] Comment on above: Order Comment: Speci men Type: BLOOD SPECIMENOrdering Facility: [facility] Address: [address] [place] [address] Performed By: #### 5 7021-8 ####[facility] LABCLIA [id number] [place] [address] Nucleated RBC (Bld) [#/Vol] 10*3/uL <0.01 k/uL [facility] Nucleated RBC (Bld) [#/Vol] 10*3/uL Normal <0.01 [facility] Comment on above: Order Comment: Speci men Type: BLOOD SPECIMENOrdering Facility: [facility] Address: [address] [place] [address] Performed By: #### 5 7021-8 ####[facility] [id number] [place] [address] Nucleated RBC/100 WBC (Bld) [Ratio] 0.0 /100 WBC [facility] Nucleated RBC/100 WBC (Bld) [Ratio] 0.0 /100 WBC Normal [facility] Comment on above: Order Comment: Speci men Type: BLOOD SPECIMENOrdering Facility: [facility] Address: [address] [place] [address] Performed By: #### 5 7021-8 ####[facility] [id number] [place] [address] Platelet mean volume (Bld) [Entitic vol] 9.6 fL 9.0 - 12.7 fL [facility] Platelet mean volume (Bld) [Entitic vol] 9.6 fL Normal 9.0-12.7 [facility] Comment on above: Order Comment: Speci men Type: BLOOD SPECIMENOrdering Facility: [facility] Address: [address] [place] [address] Performed By: #### 5 7021-8 ####[facility] [id number] [place] [address] Platelets (Bld) [#/Vol] 265 10*3/uL 150 - 400 k/uL [facility] Platelets (Bld) [#/Vol] 265 10*3/uL Normal 150-400 [facility] Comment on above: Order Comment: Speci men Type: BLOOD SPECIMENOrdering Facility: [facility] Address: [address] [place] [address] Performed By: #### 5 7021-8 ####[facility] LABCLIA [id number] MEDICAL [place] [address] RBC (Bld) [#/Vol] 4.48 10*6/uL 3.90 - 5.2 0 m/uL [facility] RBC (Bld) [#/Vol] 4.48 10*6/uL Normal 3.90-5.20 [facility] Comment on above: Order Comment: Speci men Type: BLOOD SPECIMENOrdering Facility: [facility] Address: [address] [place] [address] Performed By: #### 5 7021-8 ####[facility] LABCLIA [id number] [place] [address] WBC (Bld) [#/Vol] 4.00 10*3/uL 3.70 - 11. 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 During your visit today, we recorded the following information about you: Vika Pittman [facility] 10/06/2021 1:14 PM Signed 1st report of treatment-Non oncology regimen (Monoferric) Patient has [place] Medicaid therefore no FA is required Allergies As of Date: 10/06/2021 (No Known Allergies) Date Reviewed: 10/06/2021 Reviewed by: Arleth Bangura RN - Fully Assessed Reason for Visit: Benefits Investigation [6128] Prescriptions as of 10/06/2021 - SUMAtriptan (IMITREX) [...] 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] 09/29/2021 Encounter Status:Closed by VIKA TURCIOS on 10/06/21 Normal [facility] Ferritin SerPl-mCncon 2021 Ferritin [Mass/Vol] 24.6 ng/mL Normal 14.7-205.1 [facility] Comment on above: Order Comment: Speci men Type: BLOOD SPECIMENOrdering Facility: [facility] Address: [address] [place] [address] Performed By: #### 2 276-4, 53956-0 ####[facility] LABCLIA [id number] [place] [address] [place] Iron and Iron binding capaci ty panelon 10-06-2021 Iron [Mass/Vol] 33 ug/dL Low 41-186 [facility] Comment on above: Order Comment: Speci men Type: BLOOD SPECIMENOrdering Facility: [facility] Address: [address] [place] [address] Performed By: #### 2 276-4, 45040-0 ####[facility] LABIA [id number] [address] OF [facility] Iron binding capacity [Mass/Vol] 426 ug/dL High 232-386 [facility] Comment on above: Order Comment: Speci men Type: BLOOD SPECIMENOrdering Facility: [facility] Address: [address] [place] [address] Performed By: #### 2 276-4, 78552-1 ####[facility] LABIA [id number] [address] STATES OF [facility] Iron/TIBC [Molar ratio] 7.7 % Low 15.0-57.0 C [facility] Comment on above: Order Comment: Speci men Type: BLOOD SPECIMENOrdering Facility: [facility] Address: [address] [place] [address] Performed By: #### 2 276-4, 12960-3 ####[facility] LABIA [id number] [address] OF [place] CNPCathie 09-29-2021 CNPN Telephone (HEMBARRERA) NEEL GARCIA ([id number]) 1980 F Date Time Provider Department 09/29/21 [...] Status:Closed by PAOLO WARD on 09/29/21 Normal [facility] CBC W Auto Differential pane l (Bld)on 09-28-2021 Basophils (Bld) [#/Vol] 0.04 10*3/uL Normal <0.11 [facility] Comment on above: Order Comment: Speci men Type: BLOOD SPECIMENOrdering Facility: [facility] Address: [address] [place] [address] Performed By: #### 1 4196-0, 77904-7 ####[facility] LABCLIA [id number] [place] [address] Basophils/100 WBC (Bld) 0.8 % Normal C [facility] Comment on above: Order Comment: Speci men Type: BLOOD SPECIMENOrdering Facility: [facility] Address: [address] [place] [address] Performed By: #### 1 4196-0, 24884-3 ####[facility] LABCLIA [id number] [place] [address] Differential cell count method Nom (Bld) Auto Normal [facility] Comment on above: Order Comment: Speci men Type: BLOOD SPECIMENOrdering Facility: [facility] Address: [address] [place] [address] Performed By: #### 1 4196-0, 59162-6 ####[facility] LABCLIA [id number] [place] [address] Eosinophils (Bld) [#/Vol] 0.27 10*3/uL Normal <0.46 [facility] Comment on above: Order Comment: Speci men Type: BLOOD SPECIMENOrdering Facility: [facility] Address: [address] [place] [address] Performed By: #### 1 4196-0, 32046-3 ####[facility] LABCLIA [id number] [place] [address] Eosinophils/100 WBC (Bld) 5.6 % Normal [facility] Comment on above: Order Comment: Speci men Type: BLOOD SPECIMENOrdering Facility: [facility] Address: [address] [place] [address] Performed By: #### 1 4196-0, 49906-8 ####[facility] LABCLIA [id number] [place] [address] Erythrocyte distribution width (RBC) [Ratio] 13.7 % Normal 11.5-15.0 [facility] Comment on above: Order Comment: Speci men Type: BLOOD SPECIMENOrdering Facility: [facility] Address: [address] [place] [address] Performed By: #### 1 4196-0, 95412-9 ####[facility] LABCLIA [id number] [place] [address] Hematocrit (Bld) [Volume fraction] 37.2 % Normal 36.0-46.0 [facility] Comment on above: Order Comment: Speci men Type: BLOOD SPECIMENOrdering Facility: [facility] Address: [address] [place] [address] Performed By: #### 1 4196-0, 63748-8 ####[facility] LABCLIA [id number] [place] [address] Hemoglobin (Bld) [Mass/Vol] 11.8 g/dL Normal 11.5-15.5 [facility] Comment on above: Order Comment: Speci men Type: BLOOD SPECIMENOrdering Facility: [facility] Address: [address] [place] [address] Performed By: #### 1 4196-0, 18501-0 ####[facility] LABCLIA [id number] [place] [address] IMMATURE GRAN % 0.2 % Normal [facility] Comment on above: Order Comment: Speci men Type: BLOOD SPECIMENOrdering Facility: [facility] Address: [address] [place] [address] Performed By: #### 1 4196-0, 69919-5 ####[facility] LABCLIA [id number] [place] [address] IMMATURE GRAN ABS <0.03 Normal <0.10 [facility] Comment on above: Order Comment: Speci men Type: BLOOD SPECIMENOrdering Facility: [facility] Address: [address] [place] [address] Performed By: #### 1 4196-0, 48363-6 ####[facility] LABCLIA [id number] [place] [address] Lymphocytes (Bld) [#/Vol] 1.88 10*3/uL Normal 1.00-4.00 [facility] Comment on above: Order Comment: Speci men Type: BLOOD SPECIMENOrdering Facility: [facility] Address: [address] [place], [place] [address] Performed By: #### 1 4196-0, 70970-7 ####[facility] LABCLIA [id number] [place] [address] Lymphocytes/100 WBC (Bld) 38.9 % Normal [facility] Comment on above: Order Comment: Speci men Type: BLOOD SPECIMENOrdering Facility: [facility] Address: [address] [place], [place] [address] Performed By: #### 1 4196-0, 77492-8 ####[facility] LABIA [id number] [place] [address] MCH (RBC) [Entitic mass] 27.3 pg Normal 26.0-34.0 [facility] Comment on above: Order Comment: Speci men Type: BLOOD SPECIMENOrdering Facility: [facility] Address: [address] [place], [place] [address] Performed By: #### 1 4196-0, 28291-0 ####[facility] LABIA [id number] [place] [address] MCHC (RBC) [Mass/Vol] 31.7 g/dL Normal 30.5-36.0 [facility] Comment on above: Order Comment: Speci men Type: BLOOD SPECIMENOrdering Facility: [facility] Address: [address] [place], [place] [address] Performed By: #### 1 4196-0, 11042-5 ####[facility] LABIA [id number] [place] [address] MCV (RBC) [Entitic vol] 85.9 fL Normal 80.0-100.0 C [facility] Comment on above: Order Comment: Speci men Type: BLOOD SPECIMENOrdering Facility: [facility] Address: [address] [place], [place] [address] Performed By: #### 1 4196-0, 26350-7 ####[facility] LABCLIA [id number] [place] [address] Monocytes (Bld) [#/Vol] 0.56 10*3/uL Normal <0.87 [facility] Comment on above: Order Comment: Speci men Type: BLOOD SPECIMENOrdering Facility: [facility] Address: [address] [place] [address] Performed By: #### 1 4196-0, 15557-7 ####[facility] LABCLIA [id number] [place] [address] Monocytes/100 WBC (Bld) 11.6 % Normal [facility] Comment on above: Order Comment: Speci men Type: BLOOD SPECIMENOrdering Facility: [facility] Address: [address] [place] [address] Performed By: #### 1 4196-0, 94984-1 ####[facility] LABCLIA [id number] [place] [address] Neutrophils (Bld) [#/Vol] 2.07 10*3/uL Normal 1.45-7.50 [facility] Comment on above: Order Comment: Speci men Type: BLOOD SPECIMENOrdering Facility: [facility] Address: [address] [place], [place] [address] Performed By: #### 1 4196-0, 83991-0 ####[facility] LABCLIA [id number] [place] [address] Neutrophils/100 WBC (Bld) 42.9 % Normal [facility] Comment on above: Order Comment: Speci men Type: BLOOD SPECIMENOrdering Facility: [facility] Address: [address] [place], [place] [address] Performed By: #### 1 4196-0, 24013-7 ####[facility] LABCLIA [id number] [place] [address] Nucleated RBC (Bld) [#/Vol] 10*3/uL Normal <0.01 [facility] Comment on above: Order Comment: Speci men Type: BLOOD SPECIMENOrdering Facility: [facility] Address: [address] [place] [address] Performed By: #### 1 4196-0, 95362-9 ####[facility] LABCLIA [id number] [place] [address] Nucleated RBC/100 WBC (Bld) [Ratio] 0.0 /100 WBC Normal [facility] Comment on above: Order Comment: Speci men Type: BLOOD SPECIMENOrdering Facility: [facility] Address: [address] [place] [address] Performed By: #### 1 4196-0, 52773-8 ####[facility] LABIA [id number] [place] [address] Platelet mean volume (Bld) [Entitic vol] 9.6 fL Normal 9.0-12.7 [facility] Comment on above: Order Comment: Speci men Type: BLOOD SPECIMENOrdering Facility: [facility] Address: [address] [place] [address] Performed By: #### 1 4196-0, 85427-8 ####[facility] LABIA [id number] [place] [address] Platelets (Bld) [#/Vol] 234 10*3/uL Normal 150-400 [facility] Comment on above: Order Comment: Speci men Type: BLOOD SPECIMENOrdering Facility: [facility] Address: [address] [place] [address] Performed By: #### 1 4196-0, 84406-8 ####[facility] LABIA [id number] [place] [address] RBC (Bld) [#/Vol] 4.33 10*6/uL Normal 3.90-5.20 [facility] Comment on above: Order Comment: Speci men Type: BLOOD SPECIMENOrdering Facility: [facility] Address: [address] [place], [place] [address] [address] Performed By: #### 1 4196-0, 88567-5 ####[facility] LABCLIA [id number] [place] [address] WBC (Bld) [#/Vol] 4.83 10*3/uL Normal 3.70-11.00 [facility] Comment on above: Order Comment: Speci men Type: BLOOD SPECIMENOrdering Facility: [facility] Address: [address] [place], [place] [address] [address] Performed By: #### 1 4196-0, 80169-7 ####[facility] LABCLIA [id number] [place] [address] CNOVSPon 09-28-2021 CNOVSP Visit (SP) Office (HEMASA) NEEL GARCIA ([id number]) 1980 F Date Time Provider Department 09/28/21 [...] provide more details. She was born in [place] and has lived in [place] in the past. She reports occasional smoking - cigars that are dipped in cognac - last use a month back. Occasional alcohol use. No other substance abuse reported. She lives with her with 5 children. She is not working now but used to work at [employer] (was laid off during ). MEDICATIONS AND [...] which included preparing to see the patient, [id number] patient care, completing clinical documentation, obtaining and/or reviewing separately obtained history, performing a medically appropriate examination, counseling and educating the patient/family/careg iver, ordering medications, tests, or procedures, independently interpreting results (not separately reported) and communicating results to the patient/family/careg iver. CC: Blade Bryan (more content not included)... Normal [facility] FERRITIN BLDon 09-28-2021 Ferritin [Mass/Vol] 22.9 ng/mL Normal 14.7-205.1 [facility] Comment on above: Order Comment: Speci men Type: BLOOD SPECIMENOrdering Facility: [facility] Address: [address] [place] [address] Performed By: #### I FELIX GARDNER ####[facility] LABCLIA [id number] [facility] [id number] [place] [address] [place] IRON + TIBCon 09-28-2021 Iron [Mass/Vol] 44 ug/dL Normal 41-186 [facility] Comment on above: Order Comment: Speci men Type: BLOOD SPECIMENOrdering Facility: [facility] Address: [address] [place] [address] Performed By: #### Brandee GARDNER, FERR ####[facility] LABCLIA [id number] [address] STATES OF [facility] Iron binding capacity [Mass/Vol] 415 ug/dL High 232-386 [facility] Comment on above: Order Comment: Speci men Type: BLOOD SPECIMENOrdering Facility: [facility] Address: [address] [place] [address] Performed By: #### I KENDRA, FERR ####[facility] LABCLIA [id number] [address] STATES OF [facility] Iron/TIBC [Molar ratio] 11 % Low 15-57 C [facility] Comment on above: Order Comment: Speci men Type: BLOOD SPECIMENOrdering Facility: [facility] Address: [address] [place] [address] Performed By: #### Brandee GARDNER, FERR ####[facility] LABCLIA [id number] [address] OF [place] Retics #on 09-28-2021 Reticulocytes (Bld) [#/Vol] 0.89327 10*3/uL Normal 0.018-0.100 [facility] Comment on above: Order Comment: Speci men Type: BLOOD SPECIMENOrdering Facility: [facility] Address: [address] [place] [address] Performed By: #### 1 4196-0, 79295-6 ####[facility] LABCLIA [id number] [place] [address] Reticulocytes (Bld) [#/Vol]o n 09-28-2021 Reticulocytes/100 RBC (Bld) 1.0 % Normal 0.4-2.0 [facility] Comment on above: Order Comment: Speci men Type: BLOOD SPECIMENOrdering Facility: [facility] Address: [address] [place] [address] Performed By: #### 1 4196-0, 59015-9 ####[facility] LABCLIA [id number] [place] [address] HCG,Quantitativeon 2 HCG,Quantitative < 0.60 Normal [facility] Comment on above: Result Comment: Appr oximate Approximate hCG Gestational Age Range (mIU/ml) (weeks) 0.2-1 5-50 1-2 50-500 2-3 100-5,000 3-4 500-10,000 4-5 1,000-50,000 5-6 10,000-100,000 6-8 15,000-200,000 8-12 10,000-100,000 PERFORMED BY: [place] [address] PATHOLOGIST ENGRAVER JEWELRY EDIN MONTERROSO M.D. Performed By: #### H CGQNT #### [address] Serum or plasma beta choriog onadotropin measurement (units/volume)Ordered By: Bryan Quiros on 09-20-2021 HCG.beta subunit Qn m[IU]/mL [facility] Comment on above: Approximate Approxim ate hCG Gestational Age Range (mIU/ml) (weeks) 0.2-1 5-50 1-2 50-500 2-3 100-5,000 3-4 500-10,000 4-5 1,000-50,000 5-6 10,000-100,000 6-8 15,000-200,000 8-12 10,000-100,000 COVID-19 FRMCon 09-15-2021 SARS-CoV-2 (COVID-19) RNA JULEE+probe Ql (Unsp spec) Negative Normal Negative [facility] Comment on above: Order Comment: Healt hcare Worker?: N Result Comment: Testing for SARS-CoV-2 by RT-PCR This test was developed and its performance characteristics determined by [employer]) and validated at the [facility]. This test has not been FDA [...] is terminated or revoked sooner. PERFORMED BY: [place] [address] PATHOLOGIST ENGRAVER JEWELRY EDIN MONTERROSO M.D. Performed By: #### C OVID [address] [facility] #### [address] COVID-19 Positive/NegativeOr dered By: Bryan Quiros on 09-15-2021 SARS-CoV-2 (COVID-19) N gene JULEE+probe Ql (Resp) Negative Negative [facility] Comment on above: Testing for SARS-CoV -2 by RT-PCR This test was developed and its performance characteristics determined by [employer] ([employer]) and validated at the [facility]. This test has not been FDA [...] Basophils (Bld) [#/Vol] 0.04 10*3/uL Normal <0.11 [facility] Comment on above: Order Comment: Speci men Type: BLOOD SPECIMENOrdering Facility: [facility] Address: [address] [place] [address] Performed By: #### 5 7021-8 ####[facility] LABCLIA [id number] [place] [address] Basophils/100 WBC (Bld) 1.0 % Normal [facility] Comment on above: Order Comment: Speci men Type: BLOOD SPECIMENOrdering Facility: [facility] Address: [address] [place] [address] Performed By: #### 5 7021-8 ####[facility] LABCLIA [id number] [place] [address] Differential cell count method Nom (Bld) Auto Normal [facility] Comment on above: Order Comment: Speci men Type: BLOOD SPECIMENOrdering Facility: [facility] Address: [address] [place] [address] Performed By: #### 5 7021-8 ####[facility] LABCLIA [id number] [place] [address] Eosinophils (Bld) [#/Vol] 0.18 10*3/uL Normal <0.46 [facility] Comment on above: Order Comment: Speci men Type: BLOOD SPECIMENOrdering Facility: [facility] Address: [address] [place] [address] Performed By: #### 5 7021-8 ####[facility] LABCLIA [id number] [place] [address] Eosinophils/100 WBC (Bld) 4.6 % Normal [facility] Comment on above: Order Comment: Speci men Type: BLOOD SPECIMENOrdering Facility: [facility] Address: [address] [place] [address] Performed By: #### 5 7021-8 ####[facility] LABIA [id number] [place] [address] Erythrocyte distribution width (RBC) [Ratio] 14.9 % Normal 11.5-15.0 [facility] Comment on above: Order Comment: Speci men Type: BLOOD SPECIMENOrdering Facility: [facility] Address: [address] [place] [address] Performed By: #### 5 7021-8 ####[facility] LABIA [id number] [place] [address] Hematocrit (Bld) [Volume fraction] 38.6 % Normal 36.0-46.0 [facility] Comment on above: Order Comment: Speci men Type: BLOOD SPECIMENOrdering Facility: [facility] Address: [address] [place] [address] Performed By: #### 5 7021-8 ####[facility] LABIA [id number] [place] [address] Hemoglobin (Bld) [Mass/Vol] 12.2 g/dL Normal 11.5-15.5 [facility] Comment on above: Order Comment: Speci men Type: BLOOD SPECIMENOrdering Facility: [facility] Address: [address] [place] [address] Performed By: #### 5 7021-8 ####[facility] LABIA [id number] [place] [address] IMMATURE GRAN % 0.3 % Normal [facility] Comment on above: Order Comment: Speci men Type: BLOOD SPECIMENOrdering Facility: [facility] Address: [address] [place] [address] Performed By: #### 5 7021-8 ####[facility] LABIA [id number] [place] [address] IMMATURE GRAN ABS <0.03 Normal <0.10 [facility] Comment on above: Order Comment: Speci men Type: BLOOD SPECIMENOrdering Facility: [facility] Address: [address] [place] [address] Performed By: #### 5 7021-8 ####[facility] LABCLIA [id number] [place] [address] Lymphocytes (Bld) [#/Vol] 1.57 10*3/uL Normal 1.00-4.00 [facility] Comment on above: Order Comment: Speci men Type: BLOOD SPECIMENOrdering Facility: [facility] Address: [address] [place] [address] Performed By: #### 5 7021-8 ####[facility] LABCLIA [id number] [place] [address] Lymphocytes/100 WBC (Bld) 40.4 % Normal [facility] Comment on above: Order Comment: Speci men Type: BLOOD SPECIMENOrdering Facility: [facility] Address: [address] [place] [address] Performed By: #### 5 7021-8 ####[facility] LABCLIA [id number] [place] [address] MCH (RBC) [Entitic mass] 27.2 pg Normal 26.0-34.0 [facility] Comment on above: Order Comment: Speci men Type: BLOOD SPECIMENOrdering Facility: [facility] Address: [address] [place] [address] Performed By: #### 5 7021-8 ####[facility] LABIA [id number] [place] [address] MCHC (RBC) [Mass/Vol] 31.6 g/dL Normal 30.5-36.0 [facility] Comment on above: Order Comment: Speci men Type: BLOOD SPECIMENOrdering Facility: [facility] Address: [address] [place], [place] [address] Performed By: #### 5 7021-8 ####[facility] LABCLIA [id number] [place] [address] MCV (RBC) [Entitic vol] 86.2 fL Normal 80.0-100.0 C [facility] Comment on above: Order Comment: Speci men Type: BLOOD SPECIMENOrdering Facility: [facility] Address: [address] [place] [address] Performed By: #### 5 7021-8 ####[facility] LABCLIA [id number] [place] [address] Monocytes (Bld) [#/Vol] 0.43 10*3/uL Normal <0.87 [facility] Comment on above: Order Comment: Speci men Type: BLOOD SPECIMENOrdering Facility: [facility] Address: [address] [place] [address] Performed By: #### 5 7021-8 ####[facility] LABCLIA [id number] [place] [address] Monocytes/100 WBC (Bld) 11.1 % Normal C [facility] Comment on above: Order Comment: Speci men Type: BLOOD SPECIMENOrdering Facility: [facility] Address: [address] [place] [address] Performed By: #### 5 7021-8 ####[facility] LABCLIA [id number] [place] [address] Neutrophils (Bld) [#/Vol] 1.66 10*3/uL Normal 1.45-7.50 [facility] Comment on above: Order Comment: Speci men Type: BLOOD SPECIMENOrdering Facility: [facility] Address: [address] [place] [address] Performed By: #### 5 7021-8 ####[facility] LABCLIA [id number] [place] [address] Neutrophils/100 WBC (Bld) 42.6 % Normal [facility] Comment on above: Order Comment: Speci men Type: BLOOD SPECIMENOrdering Facility: [facility] Address: [address] [place], [place] [id number] Performed By: #### 5 7021-8 ####[facility] LABCLIA [id number] [place] [address] Nucleated RBC (Bld) [#/Vol] 10*3/uL Normal <0.01 [facility] Comment on above: Order Comment: Speci men Type: BLOOD SPECIMENOrdering Facility: [facility] Address: [address] [place], [place] [phone] Performed By: #### 5 7021-8 ####[facility] LABCLIA [id number] [place] [address] Nucleated RBC/100 WBC (Bld) [Ratio] 0.0 /100 WBC Normal [facility] Comment on above: Order Comment: Speci men Type: BLOOD SPECIMENOrdering Facility: [facility] Address: [address] [place], [place] [phone] Performed By: #### 5 7021-8 ####[facility] LABIA [id number] [place] [address] Platelet mean volume (Bld) [Entitic vol] 10.2 fL Normal 9.0-12.7 [facility] Comment on above: Order Comment: Speci men Type: BLOOD SPECIMENOrdering Facility: [facility] Address: [address] [place], [place] [phone] Performed By: #### 5 7021-8 ####[facility] LABCLIA [id number] [place] [address] Platelets (Bld) [#/Vol] 279 10*3/uL Normal 150-400 [facility] Comment on above: Order Comment: Speci men Type: BLOOD SPECIMENOrdering Facility: [facility] Address: [address] [place], [place] [phone] Performed By: #### 5 7021-8 ####[facility] LABCLIA [id number] [place] [address] RBC (Bld) [#/Vol] 4.48 10*6/uL Normal 3.90-5.20 [facility] Comment on above: Order Comment: Speci men Type: BLOOD SPECIMENOrdering Facility: [facility] Address: [address] [place] [phone] Performed By: #### 5 7021-8 ####[facility] LABCLIA [id number] [place] [address] WBC (Bld) [#/Vol] 3.89 10*3/uL Normal 3.70-11.00 [facility] Comment on above: Order Comment: Speci men Type: BLOOD SPECIMENOrdering Facility: [facility] Address: [address] [place] [phone] Performed By: #### 5 7021-8 ####[facility] LABCLIA [id number] [place] [address] CNOVSPon 08-14-2021 CNOVSP Visit (SP) Office (HEMAS[place]) NEEL GARCIA ([id number]) 1980 F Date Time Provider Department 08/14/21 [...] provide more details. She was born in [place] and has lived in [place] in the past. She reports occasional smoking - cigars that are dipped in cognac - last use a month back. Occasional alcohol use. No other substance abuse reported. She lives with her with 5 children. She is not working now but used to work at [employer] (was laid off during COVID-19). MEDICATIONS AND [...] which included preparing to see the patient, arpp-vv-udoe patient care, completing clinical documentation, obtaining and/or reviewing separately obtained history, performing a medically appropriate examination, counseling and educating the patient/family/careg iver, ordering medications, tests, or procedures, independently interpreting results (not separately reported) and communicating results to the patient/family/careg iver. CC: Blade Crews Sr. Referring Provider: PAOLO WARD [[id number]] Allergies As of Date: 08/14/2021 (No Known Allergies) Date Reviewed: 08/14/2021 Reviewed by: Aranza Mobley MA - Fully Assessed Reason for Visit: Anemia [6] Cmt: 1 month follow up Primary Visit Diagnosis:Iron deficiency anemia, unspecified iron deficiency anemia type [D50.9] Order(s):CBC + DIFF [SQCBCDIF] Order #: [id number] FUTURE RETIC C (more content not included)... Normal [facility] IRON + TIBCon 08-14-2021 Iron [Mass/Vol] 61 ug/dL Normal 41-186 [facility] Comment on above: Order Comment: Speci men Type: BLOOD SPECIMENOrdering Facility: [facility] Address: [address] [place] [address] Result Comment: Resu lts may be falsely increased due to interference from hemolysis. Suggest reorder as clinically indicated. Performed By: #### I KENDRA ####[facility] LABCLIA [id number] [address] [place] [facility] Iron binding capacity [Mass/Vol] Normal [facility] Comment on above: Order Comment: Speci men Type: BLOOD SPECIMENOrdering Facility: [facility] Address: [address] [place], [place] [phone] Result Comment: Unab le to calculate due to hemolysis. Performed By: #### I KENDRA ####[facility] LABCLIA [id number] [address] Iron/TIBC [Molar ratio] [facility] Comment on above: Order Comment: Speci men Type: BLOOD SPECIMENOrdering Facility: [facility] Address: [address] [place], [place] [phone] Result Comment: Unab le to calculate due to hemolysis. Performed By: #### I KENDRA ####[facility] LABCLIA [id number] [address] [place] CBC W Auto Differential pane l (Bld)on 06-26-2021 Basophils (Bld) [#/Vol] 0.04 10*3/uL Normal <0.11 [facility] Comment on above: Order Comment: Speci men Type: BLOOD SPECIMENOrdering Facility: [facility] Address: [address] [place], [place] [address] Performed By: #### 5 7021-8 ####[facility] LABCLIA [id number] [place] [address] Basophils/100 WBC (Bld) 0.8 % Normal [facility] Comment on above: Order Comment: Speci men Type: BLOOD SPECIMENOrdering Facility: [facility] Address: [address] [place], [place] [phone] Performed By: #### 5 7021-8 ####[facility] LABCLIA [id number] [place] [address] Differential cell count method Nom (Bld) Auto Normal [facility] Comment on above: Order Comment: Speci men Type: BLOOD SPECIMENOrdering Facility: [facility] Address: [address] [place] [address] Performed By: #### 5 7021-8 ####[facility] LABCLIA [id number] [place] [address] Eosinophils (Bld) [#/Vol] 0.14 10*3/uL Normal <0.46 [facility] Comment on above: Order Comment: Speci men Type: BLOOD SPECIMENOrdering Facility: [facility] Address: [address] [place] [address] Performed By: #### 5 7021-8 ####[facility] LABCLIA [id number] [place] [address] Eosinophils/100 WBC (Bld) 2.9 % Normal [facility] Comment on above: Order Comment: Speci men Type: BLOOD SPECIMENOrdering Facility: [facility] Address: [address] [place] [address] Performed By: #### 5 7021-8 ####[facility] LABCLIA [id number] [place] [address] Erythrocyte distribution width (RBC) [Ratio] 15.4 % High 11.5-15.0 [facility] Comment on above: Order Comment: Speci men Type: BLOOD SPECIMENOrdering Facility: [facility] Address: [address] [place] [address] Performed By: #### 5 7021-8 ####[facility] LABCLIA [id number] [place] [address] Hematocrit (Bld) [Volume fraction] 38.8 % Normal 36.0-46.0 [facility] Comment on above: Order Comment: Speci men Type: BLOOD SPECIMENOrdering Facility: [facility] Address: [address] [place] [address] Performed By: #### 5 7021-8 ####[facility] LABCLIA [id number] [place] [address] Hemoglobin (Bld) [Mass/Vol] 12.4 g/dL Normal 11.5-15.5 [facility] Comment on above: Order Comment: Speci men Type: BLOOD SPECIMENOrdering Facility: [facility] Address: [address] [place] [address] Performed By: #### 5 7021-8 ####[facility] LABIA [id number] [place] [address] IMMATURE GRAN % 0.2 % Normal [facility] Comment on above: Order Comment: Speci men Type: BLOOD SPECIMENOrdering Facility: [facility] Address: [address] [place] [address] Performed By: #### 5 7021-8 ####[facility] LABCLIA [id number] [place] [address] IMMATURE GRAN ABS <0.03 Normal <0.10 [facility] Comment on above: Order Comment: Speci men Type: BLOOD SPECIMENOrdering Facility: [facility] Address: [address] [place] [address] Performed By: #### 5 7021-8 ####[facility] LABIA [id number] [place] [address] Lymphocytes (Bld) [#/Vol] 1.53 10*3/uL Normal 1.00-4.00 [facility] Comment on above: Order Comment: Speci men Type: BLOOD SPECIMENOrdering Facility: [facility] Address: [address] [place] [address] Performed By: #### 5 7021-8 ####[facility] LABCLIA [id number] [place] [address] Lymphocytes/100 WBC (Bld) 31.2 % Normal [facility] Comment on above: Order Comment: Speci men Type: BLOOD SPECIMENOrdering Facility: [facility] Address: [address] [place] [address] Performed By: #### 5 7021-8 ####[facility] LABCLIA [id number] [place] [address] MCH (RBC) [Entitic mass] 27.1 pg Normal 26.0-34.0 [facility] Comment on above: Order Comment: Speci men Type: BLOOD SPECIMENOrdering Facility: [facility] Address: [address] [place] [address] Performed By: #### 5 7021-8 ####[facility] LABCLIA [id number] [place] [address] MCHC (RBC) [Mass/Vol] 32.0 g/dL Normal 30.5-36.0 [facility] Comment on above: Order Comment: Speci men Type: BLOOD SPECIMENOrdering Facility: [facility] Address: [address] [place] [address] Performed By: #### 5 7021-8 ####[facility] LABCLIA [id number] [place] [address] MCV (RBC) [Entitic vol] 84.7 fL Normal 80.0-100.0 [facility] Comment on above: Order Comment: Speci men Type: BLOOD SPECIMENOrdering Facility: [facility] Address: [address] [place] [address] Performed By: #### 5 7021-8 ####[facility] LABCLIA [id number] [place] [address] Monocytes (Bld) [#/Vol] 0.49 10*3/uL Normal <0.87 [facility] Comment on above: Order Comment: Speci men Type: BLOOD SPECIMENOrdering Facility: [facility] Address: [address] [place] [address] Performed By: #### 5 7021-8 ####[facility] LABCLIA [id number] [place] [address] Monocytes/100 WBC (Bld) 10.0 % Normal [facility] Comment on above: Order Comment: Speci men Type: BLOOD SPECIMENOrdering Facility: [facility] Address: [address] [place] [address] Performed By: #### 5 7021-8 ####[facility] LABCLIA [id number] [place] [address] Neutrophils (Bld) [#/Vol] 2.70 10*3/uL Normal 1.45-7.50 [facility] Comment on above: Order Comment: Speci men Type: BLOOD SPECIMENOrdering Facility: [facility] Address: [address] [place] [address] Performed By: #### 5 7021-8 ####[facility] LABCLIA [id number] [place] [address] Neutrophils/100 WBC (Bld) 54.9 % Normal [facility] Comment on above: Order Comment: Speci men Type: BLOOD SPECIMENOrdering Facility: [facility] Address: [address] [place] [address] Performed By: #### 5 7021-8 ####[facility] LABCLIA [id number] [place] [address] Nucleated RBC (Bld) [#/Vol] 10*3/uL Normal <0.01 [facility] Comment on above: Order Comment: Speci men Type: BLOOD SPECIMENOrdering Facility: [facility] Address: [address] [place] [address] Performed By: #### 5 7021-8 ####[facility] LABCLIA [id number] [place] [address] Nucleated RBC/100 WBC (Bld) [Ratio] 0.0 /100 WBC Normal [facility] Comment on above: Order Comment: Speci men Type: BLOOD SPECIMENOrdering Facility: [facility] Address: [address] [place] [address] Performed By: #### 5 7021-8 ####[facility] LABCLIA [id number] [place] [address] Platelet mean volume (Bld) [Entitic vol] 9.5 fL Normal 9.0-12.7 [facility] Comment on above: Order Comment: Speci men Type: BLOOD SPECIMENOrdering Facility: [facility] Address: [address] [place] [address] Performed By: #### 5 7021-8 ####[facility] LABCLIA [id number] [place] [address] Platelets (Bld) [#/Vol] 286 10*3/uL Normal 150-400 [facility] Comment on above: Order Comment: Speci men Type: BLOOD SPECIMENOrdering Facility: [facility] Address: [address] [place] [address] Performed By: #### 5 7021-8 ####[facility] LABCLIA [id number] [place] [address] RBC (Bld) [#/Vol] 4.58 10*6/uL Normal 3.90-5.20 [facility] Comment on above: Order Comment: Speci men Type: BLOOD SPECIMENOrdering Facility: [facility] Address: [address] [place] [address] Performed By: #### 5 7021-8 ####[facility] LABCLIA [id number] [place] [address] WBC (Bld) [#/Vol] 4.91 10*3/uL Normal 3.70-11.00 [facility] Comment on above: Order Comment: Speci men Type: BLOOD SPECIMENOrdering Facility: [facility] Address: [address] [place] [address] Performed By: #### 5 7021-8 ####[facility] [id number] [place] [address] CNOVSPon 06-26-2021 CNOVSP Visit (SP) Office (HEMASA) NEEL GARCIA ([id number]) 1980 F Date Time Provider Department 06/26/21 [...] provide more details. She was born in [place] and has lived in [place] in the past. She reports occasional smoking - cigars that are dipped in cognac - last use a month back. Occasional alcohol use. No other substance abuse reported. She lives with her with 5 children. She is not working now but used to work at [employer] (was laid off during ). MEDICATIONS AND [...] which included preparing to see the patient, zinv-nl-bnlh patient care, completing clinical documentation, obtaining and/or reviewing separately obtained history, performing a medically appropriate examination, counseling and educating the patient/family/careg iver, ordering medications, tests, or procedures, independently interpreting results (not separately reported) and communicating results to the patient/family/careg iver. CC (more content not included)... Normal [facility] SARS-CoV-2 (COVID-19) RNA JULEE+probe Ql (Unsp spec) Negative Normal Negative [facility] Comment on above: Order Comment: Healt hcare Worker?: N Result Comment: Testing for SARS-CoV-2 by RT-PCR This test was developed and its performance characteristics determined by [employer]) and validated at the [facility]. This test has not been FDA [...] is terminated or revoked sooner. PERFORMED BY: [facility] [address] [facility] [place] [address] PATHOLOGIST ENGRAVER JEWELRY EDIN MONTERROSO M.D. Performed By: #### C OVID [address] [facility] #### [facility] [address] [id number] [facility] COVID-19 Positive/NegativeOr dered By: Bryan Quiros on 06-26-2021 SARS-CoV-2 (COVID-19) N gene JULEE+probe Ql (Resp) Negative Negative [facility] Comment on above: Testing for SARS-CoV -2 by RT-PCR This test was developed and its performance characteristics determined by [employer] ([employer]) and validated at the [facility]. This test has not been FDA [...] 06-26-2021 Ferritin [Mass/Vol] 34.6 ng/mL Normal 14.7-205.1 [facility] Comment on above: Order Comment: Speci men Type: BLOOD SPECIMENOrdering Facility: [facility] Address: [address] [id number] Performed By: #### I KENDRA FERR ####[facility] LABCLIA [id number] [place] [address] [place] IRON + TIBCon 06-26-2021 Iron [Mass/Vol] 60 ug/dL Normal 41-186 [facility] Comment on above: Order Comment: Speci men Type: BLOOD SPECIMENOrdering Facility: [facility] Address: [address] [place] [address] Performed By: #### I KENDRA, FERR ####[facility] LABCLIA [id number] [address] Iron binding capacity [Mass/Vol] 398 ug/dL High 232-386 [facility] Comment on above: Order Comment: Speci men Type: BLOOD SPECIMENOrdering Facility: [facility] Address: [address] [place] [address] Performed By: #### I KENDRA, FERR ####[facility] LABCLIA [id number] [address] Iron/TIBC [Molar ratio] 15 % Normal 15-57 C [facility] Comment on above: Order Comment: Speci men Type: BLOOD SPECIMENOrdering Facility: [facility] Address: [address] [place] [address] Performed By: #### I KENDRA, FERR ####[facility] LABCLIA [id number] [address] OF [facility] Rhiannon 06-20-2021 CNPN Telephone (HEMASA) NEEL GARCIA ([id number]) 1980 F Date Time Provider Department 06/20/21 PAOLO WARD During your visit today, we recorded the following information about you: Laurie Russell 06/20/2021 8:59 AM Signed Please sign pending cbc order. Thanks, ALPA Eden MD 06/20/2021 10:07 AM Signed Signed, thanks. Allergies As of Date: 06/20/2021 (No Known Allergies) Date Reviewed: 05/29/2021 Reviewed by: Laurie Russell - Fully Assessed Reason for Visit: Lab Orders [1688] Primary Visit Diagnosis:Iron deficiency anemia, unspecified iron deficiency anemia type [D50.9] Order(s):CBC + DIFF [SQCBCDIF] Order #: [id number] FUTURE Prescriptions as of 06/22/2021 - ferrous [...] Of Date: 06/20/2021 (None) Encounter Status:Closed by ROYAL LAURIE on 06/22/21 [facility] ([id number]) 1980 F Date Time Provider Department 05/30/21 [...] iron once a day (prescription sent to [facility] pharmacy in [place], [place]) and follow-up in 1 month with repeat labs. She will also need a referral to see a athletic coordinator for scopes. MD Alina Thomas Sec 05/30/2021 12:48 PM Addendum sloane please send records to [facility] I will print facesheet for you Alina Mendozakins Sec 05/30/2021 12:50 PM Signed Patient is already scheduled for month appt Amelie Garces Trevor [facility] 05/30/2021 1:22 PM Signed Records faxed to Dr. Quiros. Miriam Raymond [facility] 06/05/2021 11:18 AM Signed Called [facility] and spoke with Karolina. She states they have received patient records and their office will be calling patient soon to schedule. Miriam [facility] Miriam Raymond [facility] 06/07/2021 3:01 PM Signed Called [facility] spoke with Christiane. She states their management coordinator will be calling patient to schedule. Miriam Raymond [facility] Miriam Raymond [facility] 06/19/2021 10:42 AM Signed Called [facility] spoke with Karolina. She states they have tried to call patient left several messages and are waiting for patient to call their office back. Miriam Raymond [facility] Miriam Raymond [facility] 06/28/2021 1:07 PM Signed Spoke with Christiane from [facility] office. She states patient was scheduled today 06/28 for Colonoscopy and EGD, but they received voicemail from patient she wanted to cancel due to she was not feeling well. Miriam [facility] Vanna Villar 08/14/2021 2:43 PM Signed Spoke fabiana Nolen to let her know that patient [...] deficiency anemia type [D50.9] Order(s):CONSULT TO GASTROENTEROLOGY [9010] Order #: [id number]: 1 FUTURE [] ferrous sulfate 325 mg (65 mg iron) tabletTake 1 tablet by mouth daily with breakfast.Disp: 30 tabletRfl: 2 IRON + TIBC [SQIRON] Order #: [id number] FUTURE FERRITIN BLD [SQFERR] Order #: [id number] FUTURE Prescriptions as of 08/14/2021 - SUMAtriptan [...] Status:Closed by PAOLO WARD on 05/30/21 Normal [facility] APTTon 05-29-2021 aPTT Coag (Bld) [Time] 27.8 s Normal 23.0-32.4 Cl [facility] Comment on above: Result Comment: Unfr actionated [...] laboratory APTT reagent in use throughout the [facility]. Performed By: #### P TT, WSR, TT, FERR, FIBCT, PT, HAPTO, CRP, IRON ####[facility], [place] [phone] C-Reactive Proteinon 022 C-Reactive Protein 0.5 mg/dL Normal <0.9 [facility] Comment on above: Performed By: #### P TT, WSR, TT, FERR, FIBCT, PT, HAPTO, CRP, IRON ####[facility], [place] [phone] CNOVSPon 05-29-2021 CNOVSP Visit (SP) Office (HEMASA) NEEL GARCIA ([id number]) 1980 F Date Time Provider Department 05/29/21 3:00 PM PAOLO WRAD During your visit today, we recorded the [...] provide more details. She was born in [place] and has lived in [place] in the past. She reports occasional smoking - cigars that are dipped in cognac - last use a month back. Occasional alcohol use. No other substance abuse reported. She lives with her with 5 children. She is not working now but used to work at [employer] (was laid off during -). MEDICATIONS AND [...] which included preparing to see the patient, mpyx-cw-hfuq patient care, completing clinical documentation, obtaining and/or reviewing separately obtained history, performing a medically appropriate examination, counseling and educating the patient/family/careg iver, ordering medications, tests, or procedures, independently interpreting results (not separately reported) and communicating results to the patient/family/careg iver. CC: Blade Crews Sr. Referring Provider: BLADE CREWS SR [[id number]] Allergies As of Date: 05/29/2021 (No Known Allergies) Date Reviewed: 05/29/2021 Reviewed by: Laurie Russell - Fully Assessed Reason for Visit: New Patient [172] Cmt: easy bruising Primary Visit Diagnosis:Anemia, unspecified type [D64.9] Other Visit Diagnosis:Easy bruisability [R23.8] Order(s):CBC + DIFF ([facility]) [SQRCBCDF] Order #: [id number] FUTURE COMP METABOLIC PANEL [SQCMP] Order #: [id number] FUTURE SED RATE WESTERGREN [SQWSR] Order #: [id number] FUTURE C-REACTIVE PROTEIN (CRP) [SQCRP] Order #: [id number] FUTURE IRON + TIBC [SQIRON] Order #: [id number] FUTU (more content not included)... Normal [facility] Comp Metabolic Panelon 05-29 Albumin [Mass/Vol] 4.6 g/dL Normal 3.9-4.9 [facility] Comment on above: Performed By: #### P TT, WSR, TT, FERR, FIBCT, PT, HAPTO, CRP, IRON ####[address] [phone] ALP [Catalytic activity/Vol] 83 U/L Normal 34-123 [facility] Comment on above: Performed By: #### P TT, WSR, TT, FERR, FIBCT, PT, HAPTO, CRP, IRON ####[place] [address] [place], [place] [phone] ALT [Catalytic activity/Vol] 21 U/L Normal 7-38 [facility] Comment on above: Performed By: #### P TT, WSR, TT, FERR, FIBCT, PT, HAPTO, CRP, IRON ####[place] [address] [place], [place] [phone] Anion gap [Moles/Vol] 11 mmol/L Normal 9-18 [facility] Comment on above: Performed By: #### P TT, WSR, TT, FERR, FIBCT, PT, HAPTO, CRP, IRON ####[place] [phone] AST [Catalytic activity/Vol] 19 U/L Normal 13-35 [facility] Comment on above: Performed By: #### P TT, WSR, TT, FERR, FIBCT, PT, HAPTO, CRP, IRON ####[address] [place] [phone] Bilirubin [Mass/Vol] 0.6 mg/dL Normal 0.2-1.3 [facility] Comment on above: Performed By: #### P TT, WSR, TT, FERR, FIBCT, PT, HAPTO, CRP, IRON ####[place] [phone] Calcium [Mass/Vol] 9.2 mg/dL Normal 8.5-10.2 [facility] Comment on above: Performed By: #### P TT, WSR, TT, FERR, FIBCT, PT, HAPTO, CRP, IRON ####[place] [phone] Chloride [Moles/Vol] 107 mmol/L High 97-105 [facility] Comment on above: Performed By: #### P TT, WSR, TT, FERR, FIBCT, PT, HAPTO, CRP, IRON ####[place] [address] [place], [place] [phone] CO2 [Moles/Vol] 23 mmol/L Normal 22-30 [facility] Comment on above: Performed By: #### P TT, WSR, TT, FERR, FIBCT, PT, HAPTO, CRP, IRON ####[address] [place], [place] [phone] Creatinine [Mass/Vol] 1.00 mg/dL High 0.58-0.96 [facility] Comment on above: Performed By: #### P TT, WSR, TT, FERR, FIBCT, PT, HAPTO, CRP, IRON ####[address] [phone] eGFR- Amer. >60 Normal [facility] Comment on above: Performed By: #### P TT, WSR, TT, FERR, FIBCT, PT, HAPTO, CRP, IRON ####[facility] [place] [address] [phone] eGFR-All Other Races >60 Normal [facility] Comment on above: Result Comment: eGFR (Estimated [...] TT, FERR, FIBCT, PT, HAPTO, CRP, IRON ####[address] [phone] Glucose [Mass/Vol] 85 mg/dL Normal 74-99 [facility] Comment on above: Result Comment: The [place] Diabetes Association (ADA) provides guidance for cutoff [...] Standards of Medical Care in Diabetes 2016, [place] [employer]. Diabetes Care. 2016.39(Suppl 1). Performed By: #### P TT, WSR, TT, FERR, FIBCT, PT, HAPTO, CRP, IRON ####[address] [phone] Potassium [Moles/Vol] 3.3 mmol/L Low 3.7-5.1 [facility] Comment on above: Performed By: #### P TT, WSR, TT, FERR, FIBCT, PT, HAPTO, CRP, IRON ####[place] [phone] Protein [Mass/Vol] 7.6 g/dL Normal 6.3-8.0 [facility] Comment on above: Performed By: #### P TT, WSR, TT, FERR, FIBCT, PT, HAPTO, CRP, IRON ####[address] [phone] Sodium [Moles/Vol] 141 mmol/L Normal 136-144 [facility] Comment on above: Performed By: #### P TT, WSR, TT, FERR, FIBCT, PT, HAPTO, CRP, IRON ####[address] [phone] Urea nitrogen [Mass/Vol] 12 mg/dL Normal 7-21 [facility] Comment on above: Performed By: #### P TT, WSR, TT, FERR, FIBCT, PT, HAPTO, CRP, IRON ####[address] [phone] Ferritinon 05-29-2021 Ferritin [Mass/Vol] 14.6 ng/mL Low 14.7-205.1 [facility] Comment on above: Performed By: #### P TT, WSR, TT, FERR, FIBCT, PT, HAPTO, CRP, IRON ####[place] [address], [place] [phone] Fibrinogenon 05-29-2021 Fibrinogen 338 mg/dL Normal 200-400 [facility] Comment on above: Performed By: #### P TT, WSR, TT, FERR, FIBCT, PT, HAPTO, CRP, IRON ####[place] [address], [place] [phone] Haptoglobinon 05-29-2021 Haptoglobin 161 mg/dL Normal 31-238 [facility] Comment on above: Performed By: #### P TT, WSR, TT, FERR, FIBCT, PT, HAPTO, CRP, IRON ####[place] [address], [place] [phone] Iron and TIBCon 05-29-2021 Iron [Mass/Vol] 53 ug/dL Normal 41-186 [facility] Comment on above: Performed By: #### P TT, WSR, TT, FERR, FIBCT, PT, HAPTO, CRP, IRON ####[place] [address], [place] [phone] TIBC 417 ug/dL High 232-386 [facility] Comment on above: Performed By: #### P TT, WSR, TT, FERR, FIBCT, PT, HAPTO, CRP, IRON ####[place] [address], [place] [phone] Transferrin Saturatn 13 % Low 15-57 [facility] Comment on above: Performed By: #### P TT, WSR, TT, FERR, FIBCT, PT, HAPTO, CRP, IRON ####[place] [address], [place] [phone] Platelet Func Scrnon 022 COL/ADP Cartridge Account Credited Normal <118 C [facility] Comment on above: Result Comment: Test Not Done Notified Dr. Ward at 0940 on 05.30.21 AB Performed By: #### P LTSCP ####[facility] [address], [place] [phone] COL/EPI Cartridge Account Credited Normal <194 [facility] Comment on above: Result Comment: Test Not Done Notified Dr. Ward at 0940 on 05.30.21 AB Performed By: #### P LTSCP ####[facility] [address], [place] [phone] Plt Func Scr Interp Account Credited Normal [facility] Comment on above: Performed By: #### P LTSCP ####[facility] [address], [place] [phone] Protimeon 05-29-2021 PT INR 1.0 Normal 0.9-1.3 [facility] Comment on above: Result Comment: Kathy min K Antagonist (VKA) Therapeutic Range: INR 2 to 3 (Target INR of 2.5) Note: For patients treated with VKA drugs, such as warfarin, the [place] [employer] 2012 Guideline recommends [...] GH, et al. Chest 2012, 141:7S-47S Srinivasa HAGER et al. [facility] 2017, 70: 252-289 Performed By: #### P TT, WSR, TT, FERR, FIBCT, PT, HAPTO, CRP, IRON ####[facility] [address], [place] [phone] PT Sec 10.9 sec Normal 9.7-13.0 [facility] Comment on above: Performed By: #### P TT, WSR, TT, FERR, FIBCT, PT, HAPTO, CRP, IRON ####[facility] [address], [place] [phone] Remote CBCDIF (for [facility] use o nly)on 05-29-2021 Abs Baso 0.04 k/uL Normal <0.11 [facility] Abs [place] 0.49 k/uL Normal <0.87 [facility] Abs Neut 1.66 k/uL Normal 1.45-7.50 [facility] Absolute nRBC <0.01 Normal <0.01 [facility] Basophils/100 WBC (Bld) 1.0 % Normal [facility] DTYPE Auto Diff Normal [facility] Eosinophils (Bld) [#/Vol] 0.19 10*3/uL Normal <0.46 [facility] Eosinophils/100 WBC (Bld) 4.9 % Normal [facility] Erythrocyte distribution width (RBC) [Ratio] 14.6 % Normal 11.5-15.0 [facility] Hematocrit (Bld) [Volume fraction] 36.0 % Normal 36.0-46.0 [facility] Hemoglobin (Bld) [Mass/Vol] 11.5 g/dL Normal 11.5-15.5 [facility] Lymphocytes (Bld) [#/Vol] 1.50 10*3/uL Normal 1.00-4.00 [facility] Lymphocytes/100 WBC (Bld) 38.6 % Normal [facility] MCH 26.5 pG Normal 26.0-34.0 [facility] MCHC (RBC) [Mass/Vol] 31.9 g/dL Normal 30.5-36.0 [facility] MCV (RBC) [Entitic vol] 82.9 fL Normal 80.0-100.0 [facility] Monocytes/100 WBC (Bld) 12.6 % Normal [facility] Neutrophils/100 WBC (Bld) 42.9 % Normal [facility] NRBCs 0.0 /100 WBC Normal 0 [facility] Platelet mean volume (Bld) [Entitic vol] 9.2 fL Normal 9.0-12.7 [facility] Platelets (Bld) [#/Vol] 300 10*3/uL Normal 150-400 [facility] RBC (Bld) [#/Vol] 4.34 10*6/uL Normal 3.90-5.20 [facility] WBC (Bld) [#/Vol] 3.89 10*3/uL Normal 3.70-11.00 [facility] Reticulocyteon 05-29-2021 Abs Retic 0.047 M/uL Normal 0.0180-0.1000 [facility] Comment on above: Performed By: #### P TT, WSR, TT, FERR, FIBCT, PT, HAPTO, CRP, IRON ####[place] [address], [place] [phone] Retic% 1.1 % Normal 0.4-2.0 [facility] Comment on above: Performed By: #### P TT, WSR, TT, FERR, FIBCT, PT, HAPTO, CRP, IRON ####[place] [address] [place], [place] [phone] Sed Rate Westergrenon 2021 Sed Rate Westergren 22 mm/hr High 0-20 [facility] Comment on above: Performed By: #### P TT, WSR, TT, FERR, FIBCT, PT, HAPTO, CRP, IRON ####[place] [address], [place] [phone] Thrombin Timeon 05-29-2021 Thrombin Time 17.3 sec Normal <18.6 [facility] Comment on above: Performed By: #### P TT, WSR, TT, FERR, FIBCT, PT, HAPTO, CRP, IRON ####[place] [address], [place] [phone] MRI BRAIN W WO CONTRASTon MRI BRAIN [...] collection present. The proximal portions of the [place] demonstrate normal flow voids. ORBITS: Limited evaluation of the orbits is unremarkable. SINUSES: The paranasal sinuses and mastoid air cells are clear. BONES/SOFT TISSUES: Bone marrow signal intensity is normal. IMPRESSION: Normal MRI of the brain without findings to explain the patient's seizures. Interpreted by: Erasmo Humphries MD Signed by: Erasmo Humphries MD 10/22/19 Final result Normal [facility] Normal MRI of the brain without findings to explain the patient's seizures. [facility], [place] EXAMINATION: MRI OF THE BRAIN WITHOUT AND [...] collection present. The proximal portions of the [place] demonstrate normal flow voids. ORBITS: Limited evaluation of the orbits is unremarkable. SINUSES: The paranasal sinuses and mastoid air cells are clear. BONES/SOFT TISSUES: Bone marrow signal intensity is normal. [facility] Jay, Mhpn Incoming Radiant Results From [employer] - 10/22/2019 4:01 PM EDT EXAMINATION: MRI OF THE BRAIN WITHOUT AND WITH CONTRAST 10/22/2019 2:33 pm TECHNIQUE: Multiplanar multisequence MRI of the head/brain was performed without and with the administration of intravenous contrast. COMPARISON: None. HISTORY: ORDERING SYSTEM PROVIDED HISTORY: Intractable epilepsy without status epilepticus, unspecified epilepsy type ([facility] TECHNOLOGIST PROVIDED HISTORY: Is the patient ?->No [...] collection present. The proximal portions of the [place] demonstrate normal flow voids. ORBITS: Limited evaluation of the orbits is unremarkable. SINUSES: The paranasal sinuses and mastoid air cells are clear. BONES/SOFT TISSUES: Bone marrow signal intensity is normal. IMPRESSION: Normal MRI of the brain without findings to explain the patient's seizures. [facility] Social History Date Type Detail Facility Start: 09-28-2021 End: 01-08-2023 Tobacco smoking status NHIS Ex-smoker [facility] Start: 08-14-2021 End: 11-10-2021 Alcohol intake Current drinker of alcohol (finding) [facility] Start: 08-14-2021 End: 11-10-2021 Alcohol intake [facility] Start: 08-04-2021 End: 11-10-2021 Exposure to SARS-CoV-2 (event) Not sure [facility] Start: 05-29-2021 Tobacco smoking status VAIS Occasional tobacco smoker [facility] Start: 05-29-2021 End: 09-28-2021 Tobacco use and exposure Smokeless tobacco non-user [facility] Start: 05-29-2021 History SDOH Alcohol Comment socially [facility] Start: 1980 Sex Assigned At Not on file M [place], [place] Start: 1980 Sex Assigned At Female F [facility] Tobacco smoking status VAIS Unknown if ever smoked [facility] Tobacco smoking status VAIS Tobacco smoking consumption unknown [facility] Sex Assigned At Female [facility] Vital Signs Date Time Vital Sign Value Performing Clinician Facility 10-30-2022 10:33-0400 Blood Pressure Location MAELIE ESPARZA [facility] 10-30-2022 10:33-0400 Diastolic blood pressure 84 mm[Hg] AMELIE ESPARZA [facility] 10-30-2022 10:33-0400 Heart rate 61 /min AMELIE ESPARZA [facility] 10-30-2022 10:33-0400 Respiratory rate 16 /min AMELIE ESPARZA [facility] 10-30-2022 10:33-0400 Systolic blood pressure 126 mm[Hg] AMELIE ESPARZA [facility] 09-28-2021 13:53-0400 Body height 167.6 cm Paolo Ward MD Work Phone: [facility] 09-28-2021 13:53-0400 Body temperature 97.59 [degF] Paolo Ward MD Work Phone: [facility] 09-28-2021 13:53-0400 Body weight 86.55 kg Paolo Ward MD Work Phone: [facility] 09-28-2021 13:53-0400 Diastolic blood pressure 70 mm[Hg] Paolo Ward MD Work Phone: [facility] 09-28-2021 13:53-0400 Heart rate 65 /min Paolo Ward MD Work Phone: [facility] 09-28-2021 13:53-0400 Respiratory rate 16 /min Paolo Ward MD Work Phone: [facility] 09-28-2021 13:53-0400 SaO2% (BldA) [Mass fraction] 100 % Paolo Ward MD Work Phone: [facility] 09-28-2021 13:53-0400 Systolic blood pressure 116 mm[Hg] Paolo Ward MD Work Phone: [facility] 09-20-2021 08:45-0400 Diastolic blood pressure 68 mm[Hg] DO [facility] Work Phone: [facility] 09-20-2021 08:45-0400 Heart rate 68 /min DO [facility] Work Phone: [facility] 09-20-2021 08:45-0400 Respiratory rate 18 /min DO [facility] Work Phone: [facility] 09-20-2021 08:45-0400 SaO2% (BldA) [Mass fraction] 98 % DO [facility] Work Phone: [facility] 09-20-2021 08:45-0400 Systolic blood pressure 105 mm[Hg] DO [facility] Work Phone: [facility] 09-20-2021 06:49-0400 Body height 170.18 cm DO [facility] Work Phone: [facility] 09-20-2021 06:49-0400 Body mass index (BMI) [Ratio] 28.6 kg/m2 DO [facility] Work Phone: [facility] 09-20-2021 06:49-0400 Body temperature 98.5 [degF] DO [facility] Work Phone: [facility] 09-20-2021 06:49-0400 Body weight 83 kg DO Blade Crews Work Phone: [facility] 08-14-2021 13:40-0400 Body height 167.6 cm Paolo Ward MD Work Phone: [facility] 08-14-2021 13:40-0400 Body temperature 97.11 [degF] Paolo Ward MD Work Phone: [facility] 08-14-2021 13:40-0400 Body weight 88.72 kg Paolo Ward MD Work Phone: [facility] 08-14-2021 13:40-0400 Diastolic blood pressure 57 mm[Hg] Paolo Ward MD Work Phone: [facility] 08-14-2021 13:40-0400 Heart rate 65 /min Paolo Ward MD Work Phone: [facility] 08-14-2021 13:40-0400 Respiratory rate 16 /min Paolo Ward MD Work Phone: [facility] 08-14-2021 13:40-0400 SaO2% (BldA) [Mass fraction] 92 % Paolo Ward MD Work Phone: [facility] 08-14-2021 13:40-0400 Systolic blood pressure 115 mm[Hg] Paolo Ward MD Work Phone: [facility] 06-27-2021 13:43-0500 Body height 170.18 cm DO Blade Eleonora Work Phone: [facility] 06-27-2021 13:43-0500 Body mass index (BMI) [Ratio] 31 kg/m2 DO [facility] Work Phone: [facility] 06-27-2021 13:43-0500 Body weight 89.81 kg DO [facility] Work Phone: [facility] Functional Status Date Assessment Result Facility 01-08-2023 Functional Status N/A [facility] 10-30-2022 Functional Status N/A [facility] Clinical Notes 05-29-2021 to 01-08-2023 Telephone Encounter - Jian De L aCruz RN - 11/14/2021 3:15 PM EDTTelephone Encounter - Jian De La Cruz RN - 11/14/2021 3:15 PM EDTTelephone Encounter - Vika Pittman [facility] - 10/06/2021 1:13 PM EDT Note Date [...] provider. Document Revised: 08/17/2021 Document Reviewed: 08/17/2021 [employer] Patient Education 2022 VMob. Follow Up Care 10/30/2022 11:37:59 With:FRED DUNCAN, AMELIE Ch, URL Address: [address] [place] [address] When: Unknown Comments:PRN [facility] 10-30-[address] De [...] Pelvic US 12/20/21 no abnl CMP 02/25/22 band lining bander 0.86 CBC 05/30/22 nl +Micro UA 02/25/22 [...] Pelvic US 12/20/21 no abnl CMP 02/25/22 band lining bander 0.86 CBC 05/30/22 nl ICIQ-SF 12 Pt [...] day(s), # 2 tab(s), Refills(s) 0, Pharmacy: [facility]/pharmacy #[id number], 170, cm, 10/30/22 10:53:00 EDT, Height/Length Dosing, 86.5, kg, 10/30/22 10:53:00 EDT,... Measure Post Void residual urine and/or bladder capacity by US- non-imaging [id number] Follow-up With When Contact Information AMELIE ESPARZA PA-C, URL In 8 weeks [address] [place] [address] Additional Instructions: after Cysto w/ Dr. Martinez Patient Education Cystoscopy Documentation recorded by the nelli Estrada accurately reflects the services(s) I performed and decisions made by me. Authentic (more content not included)... [facility] Comment on above: Result Comment: Elec tronically Signed By: AMELIE ESPARZA PA-C\.br\Date and Time Signed: 10/30/22 12:34 EDT\.br\Electronically Co-Signed By: Lamar Estrada\.br\Date and Time Co-Signed: 10/30/22 11:29 EDT 10-30-2022 [facility] e instructions Patient Education 10/30/2022 11:19:09 Cystoscopy [...] including vitamins, herbs, eye drops, creams, and twll-irm-stnpslv medicines. Any problems you or family members [...] provider tells you to take them. Taking zdhq-ken-iqitsyn medicines, vitamins, herbs, and supplements. Tests You [...] Follow these instructions at home: Medicines Take cgmg-siu-bygfkba and prescription medicines only as told by [...] provider. Document Revised: 12/20/2021 Document Reviewed: 11/18/2020 [employer] Patient Education 2022 VMob. Follow Up Care 08/31/2022 13:02:06 With:FRED DUNCAN, AMELIE Ch, URL Address: [address] [place], [place] [address] [address] When:Within 8 Week(s) Comments:after Cysto w/ Dr. Martinez [facility] 10-30-2022 Note Urology Cystoscopy Cystoscopy is [...] including vitamins, herbs, eye drops, creams, and glip-onu-zcfalma medicines. ? Any problems you or family [...] tells you to take them. ? Taking htcs-kba-tslvcca medicines, vitamins, herbs, and supplements. Tests You [...] these instructions at home: Medicines ? Take quoi-ryv-qpmdvub and prescription medicines only as told by [...] the department th (more content not included)... [facility] 11-14-2021 Miscellaneous Notes Informed pt of Dr Ward's message. Pt verbalized understanding and denies further needs at this time. Jian De La Cruz RN ----- Message from Alina Barros RN sent at 11/13/2021 1:26 PM EDT ----- ----- Message ----- From: Paolo Ward MD Sent: 11/11/2021 6:10 AM EDT To: Alina Barros RN Wa Tif. Can you please call pt and let her know that the iron profile is normal? No change in the recommendation. Thanks, SJK documented in this encounter [facility] 11-10-2021 Note HNO ID: [id number] Author: Paolo Ward MD Service: ? Author [...] provide more details. She was born in [place] and has lived in [place] in the past. She reports occasional smoking - cigars that are dipped in cognac - last use a month back. Occasional alcohol use. No other substance abuse reported. She lives with her with 5 children. She is not working now but used to work at [employer] (was laid off during ). MEDICATIONS AND [...] which included preparing to see the patient, ical-hu-yflp patient care, completing clinical documentation, obtaining and/or reviewing separately obtained history, performing a medically appropriate examination, counseling and educating the patient/family/caregiver, ordering medications, tests, or procedures, independently interpreting results (not separately reported) and communicating results to the patient/family/caregiver. CC: Blade Crews Sr. [facility] 10-06-2021 Miscellaneous Notes 1st report of treatment-Non oncology regimen (Monoferric) Patient has [place] therefore no FA is required documented in this encounter [facility] 09-29-2021 Miscellaneous Notes Patient has been scheduled [...] Paolo Ward MD documented in this encounter [facility] 09-28-2021 Note HNO ID: [id number] Author: Paolo Ward MD Service: ? Author [...] provide more details. She was born in [place] and has lived in [place] in the past. She reports occasional smoking - cigars that are dipped in cognac - last use a month back. Occasional alcohol use. No other substance abuse reported. She lives with her with 5 children. She is not working now but used to work at [employer] (was laid off during ID-). MEDICATIONS AND ALLERGIES: Reviewed PHYSICAL EXAM BP [...] which included preparing to see the patient, vbwy-um-qlpp patient care, completing clinical documentation, obtaining and/or reviewing separately obtained history, performing a medically appropriate examination, counseling and educating the patient/family/caregiver, ordering medications, tests, or procedures, independently interpreting results (not separately reported) and communicating results to the patient/family/caregiver. CC: Blade Crews Sr. [facility] 09-28-2021 History of Presen t illness Narrative [...] provide more details. She was born in [place] and has lived in [place] in the past. She reports occasional smoking - cigars that are dipped in cognac - last use a month back. Occasional alcohol use. No other substance abuse reported. She lives with her with 5 children. She is not working now but used to work at [employer] (was laid off during ). MEDICATIONS AND [...] which included preparing to see the patient, glft-qh-tdri patient care, completing clinical documentation, obtaining and/or reviewing separately obtained history, performing a medically appropriate examination, counseling and educating the patient/family/caregiver, ordering medications, tests, or procedures, independently interpreting results (not separately reported) and communicating results to the patient/family/caregiver. CC: Blade Crews Sr. documented in this encounter [facility] 09-20-2021 Procedure note [facility] 08-14-2021 Note HNO ID: [id number] Author: Paolo Ward MD Service: ? Author [...] provide more details. She was born in [place] and has lived in [place] in the past. She reports occasional smoking - cigars that are dipped in cognac - last use a month back. Occasional alcohol use. No other substance abuse reported. She lives with her with 5 children. She is not working now but used to work at [employer] (was laid off during COVID-19). MEDICATIONS AND [...] which included preparing to see the patient, gtzn-bu-vkcl patient care, completing clinical documentation, obtaining and/or reviewing separately obtained history, performing a medically appropriate examination, counseling and educating the patient/family/caregiver, ordering medications, tests, or procedures, independently interpreting results (not separately reported) and communicating results to the patient/family/caregiver. CC: Blade Crews Sr. [facility] 08-14-2021 History of Presen t illness Narrative [...] provide more details. She was born in [place] and has lived in [place] in the past. She reports occasional smoking - cigars that are dipped in cognac - last use a month back. Occasional alcohol use. No other substance abuse reported. She lives with her with 5 children. She is not working now but used to work at [employer] (was laid off during COVID-19). MEDICATIONS AND [...] which included preparing to see the patient, [id number] patient care, completing clinical documentation, obtaining and/or reviewing separately obtained history, performing a medically appropriate examination, counseling and educating the patient/family/caregiver, ordering medications, tests, or procedures, independently interpreting results (not separately reported) and communicating results to the patient/family/caregiver. CC: Blade Crews Sr. documented in this encounter [facility] 06-26-2021 Note HNO ID: [id number] Author: Paolo Ward MD Service: ? Author [...] provide more details. She was born in [place] and has lived in [place] in the past. She reports occasional smoking - cigars that are dipped in cognac - last use a month back. Occasional alcohol use. No other substance abuse reported. She lives with her with 5 children. She is not working now but used to work at [employer] (was laid off during ). MEDICATIONS AND [...] which included preparing to see the patient, [id number] patient care, completing clinical documentation, obtaining and/or reviewing separately obtained history, performing a medically appropriate examination, counseling and educating the patient/family/caregiver, ordering medications, tests, or procedures, independently interpreting results (not separately reported) and communicating results to the patient/family/caregiver. CC: Blade Crews Sr. [facility] 05-29-2021 Note HNO ID: [id number] Author: Paolo Ward MD Service: ? Author [...] provide more details. She was born in [place] and has lived in [place] in the past. She reports occasional smoking - cigars that are dipped in cognac - last use a month back. Occasional alcohol use. No other substance abuse reported. She lives with her with 5 children. She is not working now but used to work at [employer] (was laid off during -). MEDICATIONS AND [...] which included preparing to see the patient, [id number] patient care, completing clinical documentation, obtaining and/or reviewing separately obtained history, performing a medically appropriate examination, counseling and educating the patient/family/caregiver, ordering medications, tests, or procedures, independently interpreting results (not separately reported) and communicating results to the patient/family/caregiver. CC: Blade Crews Sr. [facility] Evaluation + Plan note Future Appointments Appointment Date:01/08/2023 03:00:00 PM Scheduled Provider:AMELIE ESPARZA PA-C Location:[facility] Appointment Type:URO Office Visit [facility] Evaluation note Diagnosis Iron deficiency anemia, unspecified iron deficiency anemia type- Primary [facility]: [facility]* Diagnosis Iron deficiency anemia, unspecified iron deficiency anemia type- Primary Easy bruisability Other symptoms involving skin and integumentary tissues [facility] Diagnosis Iron deficiency anemia, unspecified iron deficiency anemia type [facility] [place] [facility]* Diagnosis Onset Date Resolution Status Iron deficiency anemia acute [facility] Work Phone: Evaluation note* Diagnosis Iron deficiency anemia, unspecified iron deficiency anemia type- Primary [facility] Author Bryan Quiros [facility] September 20, 2021 7:58am Note Date/Time September 20, 2021 7:54a m [facility] [address] [place] [address] Gastroenterology H&P Signed Patient: Neel Garcia MR#: [id number] : 1980 Acct:[id number] Age/Sex: 41 / F Adm Date: 2 Loc: Room: Type: [facility] Attending Dr: Bryan Quiros DO Copies to: [...] for evaluation Documented By: Bryan Quiros Jr, DO 09/20/21 075 1 Signed By: <Electronically signed by Bryan Quiros Jr, DO> 09/20/21 0758 [facility] Work Phone: Hospital course Narrative No data available for this section [facility] progress note No data available for this section [facility] Reason for Referral Status Reason Specialty Diagnoses / Procedures Referre d By Contact Referred To Contact [facility] Diagnoses Intractable epilepsy without status epilepticus, unspecified epilepsy type (HCC) Procedures MRI BRAIN W WO CONTRAST Alex Little MD [address] [place] [address] Assessments Diagnosis Intractable epilepsy without status epilepticus, unspecified epilepsy type (HCC) Advance Directives No Advanced Directives Records FoundDocuments on File Type Date 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 [place] [address] [facility] M[address] [place] [address] Reason Comments Anemia 1 month follow up Reason Comments Anemia Reason Comments Results Reason Comments Benefits Investigation Specialty Diagnoses / Procedures Referred By Contac t Referred To Contact Diagnoses Iron deficiency anemia, unspecified iron deficiency anemia type Procedures INJECTION, FERRIC DERISOMALTOSE, 10 MG Paolo Ward MD [address] [place] [address] [place] [address] [facility] [address] [place] [address] Referral ID Status Reason Start Date Expiration Date V isits Requested Visits Authorized [id number] Authorized 09/29/2021 01/02/2022 1 1 INFORMATION SOURCE (unrecogn ized section and content) DATE CREATED AUTHOR 11/12/2019 [facility] DATE CREATED AUTHOR AUTHOR'S ORGANIZ ATION 09/24/2021 [facility] DATE CREATED AUTHOR AUTHOR'S ORGANIZ ATION 11/16/2021 [facility] DATE CREATED AUTHOR AUTHOR'S ORGANIZ ATION 06/05/2022 [facility] DATE CREATED AUTHOR AUTHOR'S ORGANIZ ATION 01/09/2023 Shrestha [facility] DATE CREATED AUTHOR AUTHOR'S ORGANIZ ATION 08/28/2023 [facility] EPIC Source Comments (unrecognize d section and content) In the event this informatio n is protected by the Federal Confidentiality of Alcohol and Drug Abuse Patient Records regulations: The Federal rules restrict any use of the information to criminally investigate or prosecute any alcohol or drug abuse patient.[facility] the event this information is protected by the Federal Confidentiality of Alcohol and Drug Abuse Patient Records regulations: The Federal rules restrict any use of the information to criminally investigate or prosecute any alcohol or drug abuse patient.[facility] the event this information is protected by the Federal Confidentiality of Alcohol and Drug Abuse Patient Records regulations: The Federal rules restrict any use of the information to criminally investigate or prosecute any alcohol or drug abuse patient.[facility] the event this information is protected by the Federal Confidentiality of Alcohol and Drug Abuse Patient Records regulations: The Federal rules restrict any use of the information to criminally investigate or prosecute any alcohol or drug abuse patient.[facility] the event this information is protected by the Federal Confidentiality of Alcohol and Drug Abuse Patient Records regulations: The Federal rules restrict any use of the information to criminally investigate or prosecute any alcohol or drug abuse patient.[facility] the event this information is protected by the Federal Confidentiality of Alcohol and Drug Abuse Patient Records regulations: The Federal rules restrict any use of the information to criminally investigate or prosecute any alcohol or drug abuse patient.[facility] the event this information is protected by the Federal Confidentiality of Alcohol and Drug Abuse Patient Records regulations: The Federal rules restrict any use of the information to criminally investigate or prosecute any alcohol or drug abuse patient.[facility] Teams (unrecognized sec tion and content) Baseball Pitcher Relationship Specialty Start Date End Date Isiah Evangelista[address] [place] [address] Referring SWINE GENETICS RESEARCHER 07/29/18 Baseball Pitcher Relationship Specialty Start Date End Date Blade Crews Sr. [address] [facility] [place] [address] PCP - General Family Practice 05/29/21 Kevin Evangelistaa Jessica[address] [place] [address] Referring SWINE GENETICS RESEARCHER 07/29/18 Team Status: Inactive Member Role Status Dates Blade Crews DO Primary Care Provider Active Bryan Quiros DO Attending Provider Active Team Status: Active Member Role Status Dates Blade Crews DO Primary Care Provider Active Baseball Pitcher Relationship Specialty Start Date End Date Blade Crews Sr. [address] [facility] [place] [address] PCP - General Family Practice 05/29/21 EvangelistaIsiah [address] [place] [phone] Referring SWINE GENETICS RESEARCHER 07/29/18 Baseball Pitcher Relationship Specialty Start Date End Date Blade Crews Sr. [address] [facility] [place] [address] PCP - General Family Practice 05/29/21 EvangelistaIsiah [address] [place] [address] Referring SWINE GENETICS RESEARCHER 07/29/18 Baseball Pitcher Relationship Specialty Start Date End Date Blade Crews Sr. [address] [place] [address] PCP - General Family Practice 05/29/21 Isiah Evangelista[address] [place] [phone] Referring SWINE GENETICS RESEARCHER 07/29/18 Baseball Pitcher Relationship Specialty Start Date End Date Blade Crews Sr. [address] [place] [address] PCP - General Family Practice 05/29/21 Isiah Evangelista[address] [place] [phone] Referring SWINE GENETICS RESEARCHER 07/29/18 Goals (unrecognized section and content) Goals [...] BE BASED ON THE PRIMARY CLINICAL RECORDS. [facility]. provides no warranty or guarantee of the accuracy or completeness of information in this document.
== END 2023-09-27 09:54 | disposition home or self-care (01) ==
LOC: EC 09:53
PROVIDERS: PCP Family Medicine; Visit Provider Orthopaedic Surgery Orthopaedic Surgery of the Spine
DX: M54.50 Low back pain, unspecified (principal); M50.30 Other cervical disc degeneration, unspecified cervical region
CPT/HCPCS: 72052

== ENCOUNTER 2023-10-03 21:54 | Emergency (ER) | payer OTHER, SELFPAY ==
--- OUTSIDE RECORDS SUMMARY | 2023-10-03 22:01 | XMS_ITS | CCD ---
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 Name Role Phone House, Sr Blade Soriano Primary Care Provider ALEX LITTLE Referring Unavailable [place], BLADE Soriano Primary Care Unavailable Isiah Evangelista Unavailable House Blade Ballesteros Primary Care Provider DO Blade Crews Primary Care Provider [phone] DO Bryan Quiros Attending Provider [phone] ELEONORA, DR BRIDGES Primary Care Unavailable KARASIK, [...] DR QUINTERO Attending Unavailable SAL, DR BRYAN Lawler Consulting [...] Physician AMELIE ESPARZA Attending Unavailable FRED, AMELIE hC Attending Unavailable KARASIKIngrid Referring Unavailable Constantino MARTINEZ [...] day(s), # 2 tab(s), Refills(s) 0, Pharmacy: [facility]/pharmacy #[id number], 170, cm, 10/30/22 10:53:00 EDT, Height/Length [...] 10-12-2021 Episodic Other aftercare (1 source) 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 Document Revised: 08/17/2021 Document Reviewed: 08/17/2021 [employer] Patient Education ? 2022 [employer] [place] [facility] Urology Office/Clinic Noteon 01-08-2023 Urology Office/Clinic Note Chief Complaint F/U to Cysto HPI Staff Last seen in our office 10/30/22 by JOE as a referral due to Microscopic Hematuria, Flank pain & Mixed Incontinence. Pt. was not able to give a urine sample today. S/P Cysto/UD by PRW 11/13/22 *Macrobid 100mg qd [id number] given post op Renal US 11/13/22 Dysuria: [...] Cysto/UD by PRW 11/13/22 *Macrobid 100mg qd [id number] given post op Pt states she is [...] When Contact Information AMELIE ESPARZA PA-C, URL [address] [place] [address] Additional Instructions: PRN Patient Education Lamar [place], [...] Migraine: Mother. Parkinsons disease: Father. Normal [facility] Comment on above: Result Comment: Elec tronically Signed By: AMELIE ESPARZA PA-C\.br\Date and Time Signed: 01/08/23 15:16 EDT\.br\Electronically Co-Signed By: Lamar Estrada\.br\Date and Time Co-Signed: 01/08/23 15:11 EDT Lab Reportson 11-26-2022 Lab Reports [id number] 6#1.00CD:127 [facility] Lab Reports [id number] 8#1.00CD:127 [facility] Lab Reports [id number] 7#1.00CD:127 [facility] Lab Reports [id number] 3#1.00CD:127 [facility] Lab Reports [id number] 9#1.00CD:127 [facility] RAD - Ultrasound Reporton RAD - Ultrasound Report [id number] [id number] #1.00CD:127 [facility] Operative Reporton Operative Report [id number] 7#1.00CD:127 [facility] Provider Letteron 11-14-2022 Provider Letter November 14, 2022 [place] [place] [address] : 1980 To Whom It May Concern, [...] [facility] [address] [place], [place] [address] [facility] RAD - Ultrasound Reporton RAD - Ultrasound Report [id number] [id number] #1.00CD:127 [facility] Physician Referralon 023 Physician Referral [id number] #1.00CD:127 [facility] Screenson 11-02-2022 Screens [id number] 8#1.00CD:127 [facility] Pre-Certification Formon Pre-Certification Form [id number] 08#1.00CD:127 [facility] Ambulatory Visit Summaryon 0 10-30-2022 Ambulatory [...] AMELIE ESPARZA PA-C Where: [facility] Normal [facility] Consent for Procedure/Surger yon 10-30-2022 Consent for Procedure/Surgery [id number] #1.00CD:127 Normal [facility] HERPES SIMPLEX VIRUS (HSV) C ULTUREon 06-05-2022 HSV Culture/Type Comment Normal [facility] Comment on above: Result Comment: Nega tive No Herpes simplex virus isolated. Performed By: #### I NFLUAB #### [facility] [address] [place] [address] Dr. Cherie Dior CBC AUTO DIFFon 05-30-2022 BASO # 0.1 103/ul Normal 0.0-0.1 [facility] Comment on above: Performed By: #### I NFLUAB #### [facility] [address] [place] [address] Dr. Cherie Dior Basophils/100 WBC (Bld) 1.2 % Normal 0.2-2.0 [facility] Comment on above: Performed By: #### I NFLUAB #### [facility] [address] [address] [address] Cherie Dior EO # 0.1 103/ul Normal 0.0-0.7 [facility] Comment on above: Performed By: #### I NFLUAB #### [facility] [address] [address] [address] Cherie Dior Eosinophils/100 WBC (Bld) 1.9 % Normal 0.9-7.0 [facility] Comment on above: Performed By: #### I NFLUAB #### [facility] [address] [place] [address] Dr. Cherie Dior Erythrocyte distribution width (RBC) [Ratio] 14.9 % Normal 11.0-15.0 [facility] Comment on above: Performed By: #### I NFLUAB #### [facility] [address] [place] [address] Dr. Cherie Dior Hematocrit (Bld) [Volume fraction] 40.7 % Normal 36.0-48.0 [facility] Comment on above: Performed By: #### I NFLUAB #### [facility] [address] [address] [address] Cherie Dior Hemoglobin (Bld) [Mass/Vol] 12.8 g/dL Normal 12.0-16.0 [facility] Comment on above: Performed By: #### I NFLUAB #### [facility] [address] [place] [address] Dr. Cherie Dior IG # 0.05 10e3/ul Critically high 0.00-0.03 [facility] Comment on above: Performed By: #### I NFLUAB #### [facility] [address] [place] [address] Dr. Cherie Dior IG % 1.2 % Critically high 0.0-0.5 [facility] Comment on above: Performed By: #### I NFLUAB #### [facility] [address] [place] [address] Dr. Cherie Dior LYMPH # 0.9 103/ul Critically low 1.2-3.8 [facility] Comment on above: Performed By: #### I NFLUAB #### [facility] [address] [place] [address] Dr. Cherie Dior Lymphocytes/100 WBC (Bld) 21.8 % Normal 20.5-60.0 [facility] Comment on above: Performed By: #### I NFLUAB #### [facility] [address] [place] [address] Dr. Cherie Dior MANUAL DIFF REQ NO Normal [facility] Comment on above: Performed By: #### I NFLUAB #### [facility] [address] [place] [address] Dr. Cherie Dior MCH (RBC) [Entitic mass] 27.4 pg Normal 26.7-34.0 [facility] Comment on above: Performed By: #### I NFLUAB #### [facility] [address] [place] [address] Dr. Cherie Dior MCHC (RBC) [Mass/Vol] 31.4 g/dL Normal 29.9-35.2 [facility] Comment on above: Performed By: #### I NFLUAB #### [facility] [address] [place] [address] Dr. Cherie Dior MCV (RBC) [Entitic vol] 87.0 fL Normal 81.0-99.0 [facility] Comment on above: Performed By: #### I NFLUAB #### [facility] [address] [place] [address] Dr. Cherie Dior MONO # 0.7 103/ul Normal 0.3-0.8 [facility] Comment on above: Performed By: #### I NFLUAB #### [facility] [address] [place] [address] Dr. Cherie Dior Monocytes/100 WBC (Bld) 16.6 % Critically high 1.7-12. 0 [facility] Comment on above: Performed By: #### I NFLUAB #### [facility] [address] [place] [address] Dr. Cherie Dior NEUT # 2.5 103/ul Normal 1.4-6.5 [facility] Comment on above: Performed By: #### I NFLUAB #### [facility] [address] [place] [address] Dr. Cherie Dior Neutrophils/100 WBC (Bld) 57.3 % Normal 43.0-75.0 [facility] Comment on above: Performed By: #### I NFLUAB #### [facility] [address] [place] [address] Dr. Cherie Dior Platelet mean volume (Bld) [Entitic vol] 10.2 fL Normal 9.5-13.5 [facility] Comment on above: Performed By: #### I NFLUAB #### [facility] [address] [place] [address] Dr. Cherie Dior PLT 278 103/ul Normal 150-450 [facility] Comment on above: Performed By: #### I NFLUAB #### [facility] [address] [place] [address] Dr. Cherie Dior RBC 4.68 106/ul Normal 4.20-5.40 [facility] Comment on above: Performed By: #### I NFLUAB #### [facility] [address] [place] [address] Dr. Cherie Dior WBC 4.3 103/ul Normal 4.0-11.0 [facility] Comment on above: Performed By: #### I NFLUAB #### [facility] [address] [place] [address] Dr. Cherie Dior CULTURE URINEon 05-30-2022 CULTURE URINE Culture Observations: NO GROWTH. Normal [facility] Comment on above: Performed By: #### I NFLUAB #### [facility] [address] [place] [address] Dr. Cherie Dior UA (CLEAN/CATCH) MAGISTRATE JUDGE/MICRO I F IND.on 05-30-2022 Bilirubin Ql (U) Negative Normal NEGATIVE [facility] Comment on above: Performed By: #### B BOX GLUER, CMADM, CMP #### [facility] [address] [place] [address] Dr. Cherie Dior Clarity (U) CLEAR Normal CLEAR [facility] Comment on above: Performed By: #### B BOX GLUER, CMADM, CMP #### [facility] [address] [place] [address] Dr. Cherie Dior Color (U) LT. YELLOW Normal YELLOW [facility] Comment on above: Performed By: #### B BOX GLUER, CMADM, CMP #### [facility] [address] [place] [address] Dr. Cherie Dior Glucose Ql (U) Negative Normal NEGATIVE [facility] Comment on above: Performed By: #### B BOX GLUER, CMADM, CMP #### [facility] [address] [place] [address] Dr. Cherie Dior Hemoglobin Ql (U) LARGE Abnormal NEGATIVE [facility] Comment on above: Performed By: #### B BOX GLUER, CMADM, CMP #### [facility] [address] [place] [address] Dr. Cherie Dior Ketones Ql (U) TRACE Abnormal NEGATIVE [facility] Comment on above: Performed By: #### B BOX GLUER, CMADM, CMP #### [facility] [address] [address] [address] Cherie Dior LEUKOCYTES MODERATE Abnormal NEGATIVE [facility] Comment on above: Performed By: #### B BOX GLUER, CMADM, CMP #### [facility] [address] [address] [address] Cherie Dior Nitrite Ql (U) Negative Normal NEGATIVE [facility] Comment on above: Performed By: #### B BOX GLUER, CMADM, CMP #### [facility] [address] [address] [address] Cherie Dior pH (U) 6.0 [pH] Normal 5-9 [facility] Comment on above: Performed By: #### B BOX GLUER, CMADM, CMP #### [facility] [address] [place] [address] Dr. Cherie Dior SPEC GRAVITY 1.020 Normal 1.005-<=1.025 [facility] Comment on above: Performed By: #### B BOX GLUER, CMADM, CMP #### [facility] [address] [place] [address] Dr. Cherie Dior UA PROTEIN 30 mg/dl Abnormal NEGATIVE/ TRACE [facility] Comment on above: Performed By: #### B BOX GLUER, CMADM, CMP #### [facility] [address] [place] [address] Dr. Cherie Dior UR MICRO IND INDICATED Normal [facility] Comment on above: Performed By: #### B BOX GLUER, CMADM, CMP #### [facility] [address] [place] [address] Dr. Cherie Dior Urobilinogen Qn (U) 0.2 {Del'U}/dL Normal 0.2 - 1. 0 [facility] Comment on above: Performed By: #### B BOX GLUER, CMADM, CMP #### [facility] [address] [place] [address] Dr. Cherie Dior URINE MICROSCOPIC ONLYon BACTERIA SMALL Abnormal NONE SEEN [facility] Comment on above: Performed By: #### B BOX GLUER, CMADM, CMP #### [facility] [address] [place] [address] Dr. Cherie Dior Bacteria identified Cx Nom (U) INDICATED Normal [facility] Comment on above: Performed By: #### B BOX GLUER, CMADM, CMP #### [facility] [address] [place] [address] Dr. Cherie Dior CAST NONE SEEN Normal NONE SEEN [facility] Comment on above: Performed By: #### B BOX GLUER, CMADM, CMP #### [facility] [address] [place] [address] Dr. Cherie Dior Crystals LM Nom (Urine sed) NONE SEEN Normal NONE SEEN [facility] Comment on above: Performed By: #### B BOX GLUER, CMADM, CMP #### [facility] [address] [place] [address] Dr. Cherie Dior Epithelial cells LM Ql (Urine sed) MODERATE Abnormal NONE SEEN /RARE [facility] Comment on above: Performed By: #### B BOX GLUER, CMADM, CMP #### [facility] [address] [place] [address] Dr. Cherie Dior MUCOUS TRACE Abnormal NONE SEEN [facility] Comment on above: Performed By: #### B BOX GLUER, CMADM, CMP #### [facility] [address] [place] [address] Dr. Cherie Dior RBC 2-5 Abnormal 0-2 [facility] Comment on above: Performed By: #### B BOX GLUER, CMADM, CMP #### [facility] [address] [place] [address] Dr. Cherie Dior WBC 2-5 Abnormal NONE SEEN [facility] Comment on above: Performed By: #### B BOX GLUER, CMADM, CMP #### [facility] [address] [place] [address] Dr. Cherie Dior Covid-19 PCR ([facility])on SARS-CoV-2 (COVID-19) RNA JULEE+probe Ql (Unsp spec) Not detected Normal NOT DETECTED [facility] Comment on above: Result Comment: When [...] for this test is supported by the [place] of Health and Human Service's declaration that [...] used). Performed By: #### I NFLUAB #### [facility] [address] [place] [address] Dr. Cherie Dior GROUP A STREP CULTUREon S. pyogenes Ag Ql (Unsp spec) Culture Observations: NEGATIVE FOR GROUP A STREPTOCOCCUS. Normal [facility] Comment on above: Performed By: #### G RASTCX, SSCRN #### [facility] [address] [place] [address] Dr. Cherie Dior INFLUENZA A AND B AGon 05-27 INFLUANEGH SEE BELOW Normal [facility] Comment on above: Result Comment: Nega tive for Flu A protein angiten. Infection due to Flu A cannot be ruled out. Flu A angiten in the sample may be below the detection limit of the test. Performed By: #### I NFLUAB #### [facility] [address] [place] [address] Dr. Cherie Dior INFLUBNEGH SEE BELOW Normal [facility] Comment on above: Result Comment: Nega tive for Flu B protein antigen. Infection due to Flu B cannot be ruled out. Flu B antigen in the sample may be below the detection limit of the test. Performed By: #### I NFLUAB #### [facility] [address] [place] [address] Dr. Cherie Dior INFLUENZA A AG Negative Normal NEGATIVE SEE COMMENT [facility] Comment on above: Performed By: #### I NFLUAB #### [facility] [address] [place] [address] Dr. Cherie Dior INFLUENZA B AG Negative Normal NEGATIVE SEE COMMENT [facility] Comment on above: Performed By: #### I NFLUAB #### [facility] [address] [place] [address] Dr. Cherie Dior STREPT SCREENon 05-27-2022 STREP SCREEN A Negative Normal NEGATIVE [facility] Comment on above: Performed By: #### G RASTCX, SSCRN #### [facility] [address] [place] [address] Dr. Cherie Dior US TOMAS DOP LEG [...] BRYAN JONES Date: 2022-02-27 06:57 Normal [facility] BNPon 02-25-2022 Natriuretic peptide B (Bld) [Mass/Vol] 36.0 pg/mL Normal <=450.0 [facility] Comment on above: Performed By: #### B BOX GLUER, CMADM, CMP #### [facility] [address] [place] [address] Dr. Cherie Dior CARDIAC ALEX ADMITon 022 CK [Catalytic activity/Vol] 150 U/L Normal 26-192 [facility] Comment on above: Performed By: #### B BOX GLUER, CMADM, CMP #### [facility] [address] [place] [address] Dr. Cherie Dior CK.MB [Mass/Vol] 0.43 ng/mL Normal <=3.60 [facility] Comment on above: Performed By: #### B BOX GLUER, CMADM, CMP #### [facility] [address] [place] [address] Dr. Cherie Dior HSTROP 4.7 pg/mL Normal 4.0-51.3 [facility] Comment on above: Result Comment: CUT- OFF POINTS HAVE BEEN ESTABLISHED BASED ON THE FOURTH UNIVERSAL DEFINITIONS OF MYOCARDIAL INFARCTION. THE UPPER REFERENCE LIMIT (URL) OF TROPONIN, DEFINED THE 99TH PERCENTILE OF cTnI DISTRIBUTION IN A REFERENCE POPULATION, HAS BEEN CONFIRMED THE DECISION THRESHOLD FOR IA DIAGNOSIS. Performed By: #### B BOX GLUER, CMADM, CMP #### [facility] [address] [place] [address] Dr. Cherie Dior FRANCISCO 32 ng/mL Normal 9-82 [facility] Comment on above: Performed By: #### B BOX GLUER, CMADM, CMP #### [facility] [address] [place] [address] Dr. Cherie Dior CBC AUTO DIFFon 02-25-2022 BASO # 0.0 103/ul Normal 0.0-0.1 [facility] Comment on above: Performed By: #### B BOX GLUER, CMADM, CMP #### [facility] [address] [place] [address] Dr. Cherie Dior Basophils/100 WBC (Bld) 0.4 % Normal 0.2-2.0 [facility] Comment on above: Performed By: #### B BOX GLUER, CMADM, CMP #### [facility] [address] [place] [address] Dr. Cherie Dior EO # 0.2 103/ul Normal 0.0-0.7 [facility] Comment on above: Performed By: #### B BOX GLUER, CMADM, CMP #### [facility] [address] [place] [address] Dr. Cherie Dior Eosinophils/100 WBC (Bld) 1.8 % Normal 0.9-7.0 [facility] Comment on above: Performed By: #### B BOX GLUER, CMADM, CMP #### [facility] [address] [place] [address] Dr. Cherie Dior Erythrocyte distribution width (RBC) [Ratio] 12.6 % Normal 11.0-15.0 [facility] Comment on above: Performed By: #### B BOX GLUER, CMADM, CMP #### [facility] [address] [address] [address] Cherie Dior Hematocrit (Bld) [Volume fraction] 32.9 % Critically low 36.0-48.0 [facility] Comment on above: Performed By: #### B BOX GLUER, CMADM, CMP #### [facility] [address] [address] [address] Cherie Dior Hemoglobin (Bld) [Mass/Vol] 10.5 g/dL Critically low 12.0-16.0 [facility] Comment on above: Performed By: #### B BOX GLUER, CMADM, CMP #### [facility] [address] [place] [address] Dr. Cherie Dior IG # 0.12 10e3/ul Critically high 0.00-0.03 [facility] Comment on above: Performed By: #### B BOX GLUER, CMADM, CMP #### [facility] [address] [place] [address] Dr. Cherie Dior IG % 1.4 % Critically high 0.0-0.5 [facility] Comment on above: Performed By: #### B BOX GLUER, CMADM, CMP #### [facility] [address] [place] [address] Dr. Cherie Dior LYMPH # 1.7 103/ul Normal 1.2-3.8 [facility] Comment on above: Performed By: #### B BOX GLUER, CMADM, CMP #### [facility] [address] [place] [address] Dr. Cherie Dior Lymphocytes/100 WBC (Bld) 20.1 % Critically low 20.5-60.0 [facility] Comment on above: Performed By: #### B BOX GLUER, CMADM, CMP #### [facility] [address] [place] [address] Dr. Cherie Dior MANUAL DIFF REQ NO Normal [facility] Comment on above: Performed By: #### B BOX GLUER, CMADM, CMP #### [facility] [address] [place] [address] Dr. Cherie Dior MCH (RBC) [Entitic mass] 28.8 pg Normal 26.7-34.0 [facility] Comment on above: Performed By: #### B BOX GLUER, CMADM, CMP #### [facility] [address] [place] [address] Dr. Cherie Dior MCHC (RBC) [Mass/Vol] 31.9 g/dL Normal 29.9-35.2 [facility] Comment on above: Performed By: #### B BOX GLUER, CMADM, CMP #### [facility] [address] [place] [address] Dr. Cherie Dior MCV (RBC) [Entitic vol] 90.4 fL Normal 81.0-99.0 [facility] Comment on above: Performed By: #### B BOX GLUER, CMADM, CMP #### [facility] [address] [place] [address] Dr. Cherie Dior MONO # 0.9 103/ul Critically high 0.3-0.8 [facility] Comment on above: Performed By: #### B BOX GLUER, CMADM, CMP #### [facility] [address] [place] [address] Dr. Cherie Dior Monocytes/100 WBC (Bld) 10.4 % Normal 1.7-12.0 [facility] Comment on above: Performed By: #### B BOX GLUER, CMADM, CMP #### [facility] [address] [place] [address] Dr. Cherie iDor NEUT # 5.6 103/ul Normal 1.4-6.5 [facility] Comment on above: Performed By: #### B BOX GLUER, CMADM, CMP #### [facility] [address] [place] [address] Dr. Cherie Dior Neutrophils/100 WBC (Bld) 65.9 % Normal 43.0-75.0 [facility] Comment on above: Performed By: #### B BOX GLUER, CMADM, CMP #### [facility] [address] [place] [address] Dr. Cherie Dior Platelet mean volume (Bld) [Entitic vol] 9.0 fL Critically low 9.5-13.5 [facility] Comment on above: Performed By: #### B BOX GLUER, CMADM, CMP #### [facility] [address] [place], [place] [address] Dr. Cherie Dior PLT 381 103/ul Normal 150-450 [facility] Comment on above: Performed By: #### B BOX GLUER, CMADM, CMP #### [facility] [address] [place], [place] [address] Dr. Cherie Dior RBC 3.64 106/ul Critically low 4.20-5.40 [facility] Comment on above: Performed By: #### B BOX GLUER, CMADM, CMP #### [facility] [address] [place], [place] [address] Dr. Cherie Dior WBC 8.4 103/ul Normal 4.0-11.0 [facility] Comment on above: Performed By: #### B BOX GLUER, KAIDM, CMP #### [facility] [address] [place], [place] [address] Dr. Cherie Dior CTA CHEST WO W [...] The subdiaphragmatic abdominal organs included in the psnex-uj-ayjd do not demonstrate any acute abnormality allowing for some fatty infiltration of the liver.. IMPRESSION: No CT evidence for acute pulmonary embolus. Electronically authenticated by: WICHO RAINEY Date: 2022-02-25 19:04 Normal [facility] D-DIMERon 02-25-2022 D-DIMER 6.44 mg/L FEU Critically high <=0.59 [facility] Comment on above: Performed By: #### B BOX GLUERMEAGHAN, CMP #### [facility] [address] [place] [address] Dr. Cherie Dior D-DIMER COMMENTS SEE BELOW Normal [facility] Comment on above: Result Comment: Incr eases [...] By: #### B MEAGHAN OSORIO, CMP #### [facility] [address] [place] [address] Dr. Cherie Dior ER URINE PROFILEon 2 Bilirubin Ql (U) Negative Normal NEGATIVE [facility] Comment on above: Performed By: #### B MEAGHAN OSORIO, CMP #### [facility] [address] [place] [address] Dr. Cherie Dior Clarity (U) CLEAR Normal CLEAR [facility] Comment on above: Performed By: #### B MEAGHAN OSORIO, CMP #### [facility] [address] [place] [address] Dr. Cherie Dior Color (U) LT. YELLOW Normal YELLOW [facility] Comment on above: Performed By: #### B MEAGHAN OSORIO, CMP #### [facility] [address] [place] [address] Dr. Cherie Dior ERUAHD A micrscopic examination will be performed if indicated. Normal [facility] Comment on above: Performed By: #### B BOX GLUER, CMADM, CMP #### [facility] [address] [address] [address] Cherie Dior Glucose Ql (U) Negative Normal NEGATIVE [facility] Comment on above: Performed By: #### B BOX GLUER, CMADM, CMP #### [facility] [address] [address] [address] Cherie Dior Hemoglobin Ql (U) SMALL Abnormal NEGATIVE [facility] Comment on above: Performed By: #### B BOX GLUER, CMADM, CMP #### [facility] [address] [address] [address] Cherie Dior Ketones Ql (U) Negative Normal NEGATIVE [facility] Comment on above: Performed By: #### B BOX GLUER, CMADM, CMP #### [facility] [address] [address] [address] Cherie Dior LEUKOCYTES Negative Normal NEGATIVE [facility] Comment on above: Performed By: #### B BOX GLUER, CMADM, CMP #### [facility] [address] [address] [address] Cherie Dior Nitrite Ql (U) Negative Normal NEGATIVE [facility] Comment on above: Performed By: #### B BOX GLUER, CMADM, CMP #### [facility] [address] [address] [address] Cherie Dior pH (U) 6.0 [pH] Normal 5-9 [facility] Comment on above: Performed By: #### B BOX GLUER, CMADM, CMP #### [facility] [address] [address] [address] Cherie Dior SPEC GRAVITY 1.020 Normal 1.005-<=1.025 [facility] Comment on above: Performed By: #### B BOX GLUER, CMADM, CMP #### [facility] [address] [address] [address] Cherie Dior UA PROTEIN Negative Normal NEGATIVE/ TRACE [facility] Comment on above: Performed By: #### B BOX GLUER, CMADM, CMP #### [facility] [address] [address] [address] Cherie Dior UR MICRO IND INDICATED Normal [facility] Comment on above: Performed By: #### B BOX GLUER, CMADM, CMP #### [facility] [address] [address] [address] Cherie Dior Urobilinogen Qn (U) 0.2 {Del'U}/dL Normal 0.2 - 1. 0 [facility] Comment on above: Performed By: #### B BOX GLUER, CMADM, CMP #### [facility] [address] [address] [address] Cherie Dior PROF 14(COMP METB)on 022 Albumin [Mass/Vol] 3.8 g/dL Normal 3.4-5.0 [facility] Comment on above: Performed By: #### B BOX GLUER, CMADM, CMP #### [facility] [address] [address] [address] Cherie Dior Albumin/Globulin [Mass ratio] 0.8 {ratio} Normal [facility] Comment on above: Performed By: #### B BOX GLUER, CMADM, CMP #### [facility] [address] [address] [address] Cherie Dior ALP [Catalytic activity/Vol] 72 U/L Normal 46-116 [facility] Comment on above: Performed By: #### B BOX GLUER, CMADM, CMP #### [facility] [address] [address] [address] Cherie Dior ALT [Catalytic activity/Vol] 21 U/L Normal 14-59 [facility] Comment on above: Performed By: #### B BOX GLUER, CMADM, CMP #### [facility] [address] [address] [address] Cherie Dior Anion gap [Moles/Vol] 10.5 mmol/L Normal [facility] Comment on above: Performed By: #### B BOX GLUER, CMADM, CMP #### [facility] [address] [address] [address] Cherie Dior AST [Catalytic activity/Vol] 13 U/L Critically low 15-37 [facility] Comment on above: Performed By: #### B BOX GLUER, CMADM, CMP #### [facility] [address] [address] [address] Cherie Dior Bilirubin [Mass/Vol] 0.5 mg/dL Normal 0.2-1.0 [facility] Comment on above: Performed By: #### B BOX GLUER, CMADM, CMP #### [facility] [address] [place] [address] Dr. Cherie Dior Calcium [Mass/Vol] 9.0 mg/dL Normal 8.5-10.1 [facility] Comment on above: Performed By: #### B BOX GLUER, CMADM, CMP #### [facility] [address] [place] [address] Dr. Cherie Dior Chloride [Moles/Vol] 104 mmol/L Normal 98-107 [facility] Comment on above: Performed By: #### B BOX GLUER, CMADM, CMP #### [facility] [address] [place] [address] Dr. Cherie Dior CO2 [Moles/Vol] 25.3 mmol/L Normal 21.0-32.0 [facility] Comment on above: Performed By: #### B BOX GLUER, CMADM, CMP #### [facility] [address] [place] [address] Dr. Cherie Dior Creatinine [Mass/Vol] 0.86 mg/dL Normal 0.55-1.02 [facility] Comment on above: Performed By: #### B BOX GLUER, CMADM, CMP #### [facility] [address] [place] [address] Dr. Cherie Dior EGFR-AF SWAZI >60 Normal >=60 [facility] Comment on above: Performed By: #### B BOX GLUER, CMADM, CMP #### [facility] [address] [place] [address] Dr. Cherie Dior EGFR-NON AF SWAZI >60 Normal >=60 [facility] Comment on above: Performed By: #### B BOX GLUER, CMADM, CMP #### [facility] [address] [place] [address] Dr. Cherie Dior Globulin (S) [Mass/Vol] 4.5 g/dL Normal [facility] Comment on above: Performed By: #### B BOX GLUER, CMADM, CMP #### [facility] [address] [address] [address] Cherie Dior Glucose [Mass/Vol] 85 mg/dL Normal 74-106 [facility] Comment on above: Performed By: #### B BOX GLUER, CMADM, CMP #### [facility] [address] [place] [address] Dr. Cherie Dior Potassium [Moles/Vol] 3.8 mmol/L Normal 3.5-5.1 [facility] Comment on above: Performed By: #### B BOX GLUER, CMADM, CMP #### [facility] [address] [place] [address] Dr. Cherie Dior Protein [Mass/Vol] 8.3 g/dL Critically high 6.4-8.2 [facility] Comment on above: Performed By: #### B BOX GLUER, CMADM, CMP #### [facility] [address] [place] [address] Dr. Cherie Dior Sodium [Moles/Vol] 136 mmol/L Normal 136-145 [facility] Comment on above: Performed By: #### B BOX GLUER, CMADM, CMP #### [facility] [address] [place] [address] Dr. Cherie Dior Urea nitrogen [Mass/Vol] 14.0 mg/dL Normal 7.0-18.0 [facility] Comment on above: Performed By: #### B BOX GLUER, CMADM, CMP #### [facility] [address] [place] [address] Dr. Cherie Dior Urea nitrogen/Creatinine [Mass ratio] 16.3 mg/mg Normal [facility] Comment on above: Performed By: #### B BOX GLUER, CMADM, CMP #### [facility] [address] [place] [address] Dr. Cherie Dior PROTIMEon 02-25-2022 INR Coag (PPP) [Relative time] 0.97 {INR} Normal [facility] Comment on above: Performed By: #### B BOX GLUER, MEAGHAN, CMP #### [facility] [address] [place] [address] Dr. Cherie Dior INR GUIDELINES SEE BELOW Normal [facility] Comment on above: Result Comment: JORDEN RED INR: 2.0 - 3.0 CONDITIONS NOT LISTED BELOW 2.5 - 3.5 FOR PROSTHETIC HEART VALVE REPLACEMENT 2.5 - 3.5 RECURRENT THROMBOSIS Performed By: #### B BOX GLUER, MEAGHAN, CMP #### [facility] [address] [place] [address] Dr. Cherie Dior PT Coag (PPP) [Time] 10.5 s Normal 9.0-11.6 [facility] Comment on above: Performed By: #### B BOX GLUER, MEAGHAN, CMP #### [facility] [address] [place] [address] Dr. Cherie Dior PTTon 02-25-2022 aPTT Coag (Bld) [Time] 29.1 s Normal 22.3-36.2 [facility] Comment on above: Performed By: #### B BOX GLUER, MEAGHAN, CMP #### [facility] [address] [place] [address] Dr. Cherie Dior URINE MICROSCOPIC ONLYon BACTERIA NONE SEEN Normal NONE SEEN [facility] Comment on above: Performed By: #### B BOX GLUER, MEAGHAN, CMP #### [facility] [address] [place] [address] Dr. Cherie Dior Bacteria identified Cx Nom (U) NOT INDICATED Normal [facility] Comment on above: Performed By: #### B BOX GLUER, MEAGHAN, CMP #### [facility] [address] [place] [address] Dr. Cherie Dior CAST NONE SEEN Normal NONE SEEN [facility] Comment on above: Performed By: #### B BOX GLUER, MEAGHAN, CMP #### [facility] [address] [place] [address] Dr. Cherie Dior Crystals LM Nom (Urine sed) NONE SEEN Normal NONE SEEN [facility] Comment on above: Performed By: #### B BOX GLUER, MEAGHAN, CMP #### [facility] [address] [place] [address] Dr. Cherie Dior Epithelial cells LM Ql (Urine sed) FEW Abnormal NONE SEEN /RARE [facility] Comment on above: Performed By: #### B BOX GLUER, CMADM, CMP #### [facility] [address] [place] [address] Dr. Cherie Dior MUCOUS TRACE Abnormal NONE SEEN [facility] Comment on above: Performed By: #### B BOX GLUER, CMADM, CMP #### [facility] [address] [place] [address] Dr. Cherie Dior RBC 5-10 Abnormal 0-2 [facility] Comment on above: Performed By: #### B BOX GLUER, CMADM, CMP #### [facility] [address] [place] [address] Dr. Cherie Dior WBC NONE SEEN Normal NONE SEEN [facility] Comment on above: Performed By: #### B BOX GLUER, CMADM, CMP #### [facility] [address] [place] [address] Dr. Cherie Dior Operative Reporton 2 Operative Report [id number] #[id number]:127 Normal [facility] BUNon 02-16-2022 Urea nitrogen [Mass/Vol] 9.0 mg/dL Normal 7.0-18.0 [facility] Comment on above: Performed By: #### B UN, CREA #### [facility] [address] [place] [address] Dr. Cherie Dior CBC AUTO DIFFon 02-16-2022 BASO # 0.0 103/ul Normal 0.0-0.1 [facility] Comment on above: Performed By: #### C BC #### [facility] [address] [place] [address] Dr. Cherie Dior Basophils/100 WBC (Bld) 0.1 % Critically low 0.2-2.0 [facility] Comment on above: Performed By: #### C BC #### [facility] [address] [place] [address] Dr. Cherie Dior EO # 0.0 103/ul Normal 0.0-0.7 [facility] Comment on above: Performed By: #### C BC #### [facility] [address] [place] [address] Dr. Cherie Dior Eosinophils/100 WBC (Bld) 0.0 % Critically low 0.9-7.0 [facility] Comment on above: Performed By: #### C BC #### [facility] [address] [place] [address] Dr. Cherie Dior Erythrocyte distribution width (RBC) [Ratio] 12.6 % Normal 11.0-15.0 [facility] Comment on above: Performed By: #### C BC #### [facility] [address] [place] [address] Dr. Cherie Dior Hematocrit (Bld) [Volume fraction] 31.0 % Critically low 36.0-48.0 [facility] Comment on above: Performed By: #### C BC #### [facility] [address] [place] [address] Dr. Cherie Dior Hemoglobin (Bld) [Mass/Vol] 10.2 g/dL Critically low 12.0-16.0 [facility] Comment on above: Performed By: #### C BC #### [facility] [address] [place] [address] Dr. Cherie Dior IG # 0.04 10e3/ul Critically high 0.00-0.03 [facility] Comment on above: Performed By: #### C BC #### [facility] [address] [place] [address] Dr. Cherie Dior IG % 0.3 % Normal 0.0-0.5 [facility] Comment on above: Performed By: #### C BC #### [facility] [address] [place] [address] Dr. Cherie Dior LYMPH # 1.1 103/ul Critically low 1.2-3.8 [facility] Comment on above: Performed By: #### C BC #### [facility] [address] [place] [address] Dr. Cherie Diro Lymphocytes/100 WBC (Bld) 9.6 % Critically low 20.5-60.0 [facility] Comment on above: Performed By: #### C BC #### [facility] [address] [place] [address] Dr. Cherie Dior MANUAL DIFF REQ NO Normal [facility] Comment on above: Performed By: #### C BC #### [facility] [address] [place] [address] Dr. Cherie Dior MCH (RBC) [Entitic mass] 29.1 pg Normal 26.7-34.0 [facility] Comment on above: Performed By: #### C BC #### [facility] [address] [place] [address] Dr. Cherie Dior MCHC (RBC) [Mass/Vol] 32.9 g/dL Normal 29.9-35.2 [facility] Comment on above: Performed By: #### C BC #### [facility] [address] [place] [address] Dr. Cherie Dior MCV (RBC) [Entitic vol] 88.3 fL Normal 81.0-99.0 [facility] Comment on above: Performed By: #### C BC #### [facility] [address] [place] [address] Dr. Cherie Dior MONO # 1.2 103/ul Critically high 0.3-0.8 [facility] Comment on above: Performed By: #### C BC #### [facility] [address] [place] [address] Dr. Cherie Dior Monocytes/100 WBC (Bld) 9.9 % Normal 1.7-12.0 [facility] Comment on above: Performed By: #### C BC #### [facility] [address] [place] [address] Dr. Cherie Dior NEUT # 9.5 103/ul Critically high 1.4-6.5 [facility] Comment on above: Performed By: #### C BC #### [facility] [address] [place] [address] Dr. Cherie Dior Neutrophils/100 WBC (Bld) 80.1 % Critically high 43.0-75.0 [facility] Comment on above: Performed By: #### C BC #### [facility] [address] [address] [address] Cherie Dior Platelet mean volume (Bld) [Entitic vol] 9.5 fL Normal 9.5-13.5 [facility] Comment on above: Performed By: #### C BC #### [facility] [address] [place] [address] Dr. Cherie Dior PLT 225 103/ul Normal 150-450 [facility] Comment on above: Performed By: #### C BC #### [facility] [address] [address] [address] Cherie Dior RBC 3.51 106/ul Critically low 4.20-5.40 [facility] Comment on above: Performed By: #### C BC #### [facility] [address] [place] [address] Dr. Cherie Dior WBC 11.8 103/ul Critically high 4.0-11.0 [facility] Comment on above: Performed By: #### C BC #### [facility] [address] [place] [address] Dr. Cherie Dior CREATININEon 02-16-2022 Creatinine [Mass/Vol] 0.98 mg/dL Normal 0.55-1.02 [facility] Comment on above: Performed By: #### B UN, CREA #### [facility] [address] [place] [address] Dr. Cherie Dior EGFR-AF SWAZI >60 Normal >=60 [facility] Comment on above: Performed By: #### B UN, CREA #### [facility] [address] [place] [address] Dr. Cherie Dior EGFR-NON AF SWAZI >60 Normal >=60 [facility] Comment on above: Performed By: #### B UN, CREA #### [facility] [address] [place] [address] Dr. Cherie Dior PREG HCG QUALon 02-15-2022 , QUAL Negative Normal NEGATIVE [facility] Comment on above: Performed By: #### I NFLUAB #### [facility] [address] [place] [address] Dr. Cherie Dior Consent for Procedure/Surger yon 02-14-2022 Consent for Procedure/Surgery [id number] #[id number]:[id number] Normal [facility] CBC AUTO DIFFon 02-12-2022 BASO # 0.0 103/ul Normal 0.0-0.1 [facility] Comment on above: Performed By: #### B BOX GLUER, CMADM, CMP #### [facility] [address] [place] [address] Dr. Cherie Dior Basophils/100 WBC (Bld) 0.6 % Normal 0.2-2.0 [facility] Comment on above: Performed By: #### B BOX GLUER, CMADM, CMP #### [facility] [address] [place] [address] Dr. Cherie Dior EO # 0.1 103/ul Normal 0.0-0.7 [facility] Comment on above: Performed By: #### B BOX GLUER, CMADM, CMP #### [facility] [address] [place] [address] Dr. Cherie Dior Eosinophils/100 WBC (Bld) 4.0 % Normal 0.9-7.0 [facility] Comment on above: Performed By: #### B BOX GLUER, CMADM, CMP #### [facility] [address] [place] [address] Dr. Cherie Dior Erythrocyte distribution width (RBC) [Ratio] 12.9 % Normal 11.0-15.0 [facility] Comment on above: Performed By: #### B BOX GLUER, CMADM, CMP #### [facility] [address] [place] [address] Dr. Cherie Dior Hematocrit (Bld) [Volume fraction] 38.8 % Normal 36.0-48.0 [facility] Comment on above: Performed By: #### B BOX GLUER, CMADM, CMP #### [facility] [address] [place] [address] Dr. Cherie Dior Hemoglobin (Bld) [Mass/Vol] 12.6 g/dL Normal 12.0-16.0 [facility] Comment on above: Performed By: #### B BOX GLUER, CMADM, CMP #### [facility] [address] [place] [address] Dr. Cherie Dior IG # 0.00 10e3/ul Normal 0.00-0.03 [facility] Comment on above: Performed By: #### B BOX GLUER, CMADM, CMP #### [facility] [address] [place] [address] Dr. Cherie Dior IG % 0.0 % Normal 0.0-0.5 [facility] Comment on above: Performed By: #### B BOX GLUER, CMADM, CMP #### [facility] [address] [place] [address] Dr. Cherie Dior LYMPH # 1.3 103/ul Normal 1.2-3.8 [facility] Comment on above: Performed By: #### B BOX GLUER, CMADM, CMP #### [facility] [address] [place] [address] Dr. Cherie Dior Lymphocytes/100 WBC (Bld) 36.5 % Normal 20.5-60.0 [facility] Comment on above: Performed By: #### B BOX GLUER, CMADM, CMP #### [facility] [address] [place] [address] Dr. Cherie Dior MANUAL DIFF REQ NO Normal [facility] Comment on above: Performed By: #### B BOX GLUER, CMADM, CMP #### [facility] [address] [place] [address] Dr. Cherie Dior MCH (RBC) [Entitic mass] 29.4 pg Normal 26.7-34.0 [facility] Comment on above: Performed By: #### B BOX GLUER, CMADM, CMP #### [facility] [address] [place] [address] Dr. Cherie Dior MCHC (RBC) [Mass/Vol] 32.5 g/dL Normal 29.9-35.2 [facility] Comment on above: Performed By: #### B BOX GLUER, CMADM, CMP #### [facility] [address] [place] [address] Dr. Cherie Dior MCV (RBC) [Entitic vol] 90.7 fL Normal 81.0-99.0 [facility] Comment on above: Performed By: #### B BOX GLUER, CMADM, CMP #### [facility] [address] [place] [address] Dr. Cherie Dior MONO # 0.5 103/ul Normal 0.3-0.8 [facility] Comment on above: Performed By: #### B BOX GLUER, CMADM, CMP #### [facility] [address] [place] [address] Dr. Cherie Dior Monocytes/100 WBC (Bld) 12.9 % Critically high 1.7-12. 0 [facility] Comment on above: Performed By: #### B BOX GLUER, CMADM, CMP #### [facility] [address] [place] [address] Dr. Cherie Dior NEUT # 1.6 103/ul Normal 1.4-6.5 [facility] Comment on above: Performed By: #### B BOX GLUER, CMADM, CMP #### [facility] [address] [place] [address] Dr. Cherie Dior Neutrophils/100 WBC (Bld) 46.0 % Normal 43.0-75.0 [facility] Comment on above: Performed By: #### B BOX GLUER, CMADM, CMP #### [facility] [address] [place] [address] Dr. Cherie Dior Platelet mean volume (Bld) [Entitic vol] 9.8 fL Normal 9.5-13.5 [facility] Comment on above: Performed By: #### B BOX GLUER, CMADM, CMP #### [facility] [address] [place] [address] Dr. Cherie Dior PLT 202 103/ul Normal 150-450 [facility] Comment on above: Performed By: #### B BOX GLUER, CMADM, CMP #### [facility] [address] [place] [address] Dr. Cherie Dior RBC 4.28 106/ul Normal 4.20-5.40 [facility] Comment on above: Performed By: #### B BOX GLUER, CMADM, CMP #### [facility] [address] [place] [address] Dr. Cherie Dior WBC 3.5 103/ul Critically low 4.0-11.0 [facility] Comment on above: Performed By: #### B BOX GLUER, KAIDM, CMP #### [facility] [address] [address] [address] Cherie Dior Covid-19 PCR ([facility])on 01-21 SARS-CoV-2 (COVID-19) RNA JULEE+probe Ql (Unsp spec) Not detected Normal NOT DETECTED [facility] Comment on above: Result Comment: This test is not yet approved or cleared by the [place] FDA. When there are no FDA-approved or cleared tests available, and other criteria are met, FDA can make tests available under an emergency access mechanism called an Emergency Use Authorization (EUA). The EUA for this test is supported by the [place] of Health and Human Service's (HHS's) declaration [...] consistent with SARS-CoV-2. Performed By: #### B BOX GLUER, KAIDM, CMP #### [facility] [address] [place] [address] Dr. Cherie Dior PROF CHEM 8 (BAS METB)on Anion gap [Moles/Vol] 7.5 mmol/L Normal [facility] Comment on above: Performed By: #### B MP #### [facility] [address] [address] [address] Cherie Dior Calcium [Mass/Vol] 8.4 mg/dL Critically low 8.5-10.1 Th e [facility] Comment on above: Performed By: #### B MP #### [facility] [address] [place] [address] Dr. Cherie Dior Chloride [Moles/Vol] 106 mmol/L Normal 98-107 [facility] Comment on above: Performed By: #### B MP #### [facility] [address] [address] [address] Cherie Dior CO2 [Moles/Vol] 28.3 mmol/L Normal 21.0-32.0 [facility] Comment on above: Performed By: #### B MP #### [facility] [address] [place] [address] Dr. Cherie Dior Creatinine [Mass/Vol] 0.81 mg/dL Normal 0.55-1.02 [facility] Comment on above: Performed By: #### B MP #### [facility] [address] [place] [address] Dr. Cherie Dior EGFR-AF SWAZI >60 Normal >=60 [facility] Comment on above: Performed By: #### B MP #### [facility] [address] [place] [address] Dr. Cherie Dior EGFR-NON AF SWAZI >60 Normal >=60 [facility] Comment on above: Performed By: #### B MP #### [facility] [address] [place] [address] Dr. Cherie Dior Glucose [Mass/Vol] 75 mg/dL Normal 74-106 [facility] Comment on above: Performed By: #### B MP #### [facility] [address] [place] [address] Dr. Cherie Dior Potassium [Moles/Vol] 3.8 mmol/L Normal 3.5-5.1 [facility] Comment on above: Performed By: #### B MP #### [facility] [address] [place] [address] Dr. Cherie Dior Sodium [Moles/Vol] 138 mmol/L Normal 136-145 [facility] Comment on above: Performed By: #### B MP #### [facility] [address] [address] [address] Cherie Dior Urea nitrogen [Mass/Vol] 8.0 mg/dL Normal 7.0-18.0 [facility] Comment on above: Performed By: #### B MP #### [facility] [address] [address] [address] Cherie Dior Urea nitrogen/Creatinine [Mass ratio] 9.9 mg/mg Normal [facility] Comment on above: Performed By: #### B MP #### [facility] [address] [address] [address] Cherie Dior PROTIMEon 02-12-2022 INR Coag (PPP) [Relative time] 0.97 {INR} Normal [facility] Comment on above: Performed By: #### B BOX GLUERMEAGHAN, CMP #### [facility] [address] [place] [address] Dr. Cherie Dior INR GUIDELINES SEE BELOW Normal [facility] Comment on above: Result Comment: JORDEN RED INR: 2.0 - 3.0 CONDITIONS NOT LISTED BELOW 2.5 - 3.5 FOR PROSTHETIC HEART VALVE REPLACEMENT 2.5 - 3.5 RECURRENT THROMBOSIS Performed By: #### B BOX GLUER, MEAGHAN, CMP #### [facility] [address] [place] [address] Dr. Cherie Dior PT Coag (PPP) [Time] 10.5 s Normal 9.0-11.6 [facility] Comment on above: Performed By: #### B BOX GLUERMEAGHAN, CMP #### [facility] [address] [place] [address] Dr. Cherie Dior PTTon 02-12-2022 aPTT Coag (Bld) [Time] 25.1 s Normal 22.3-36.2 Th [facility] Comment on above: Performed By: #### B BOX GLUERMEAGHAN, CMP #### [facility] [address] [place] [address] Dr. Cherie Dior TYPE AND SCREENon 02-12-2022 TYPE AND SCREEN Negative Normal [facility] Comment on above: Performed By: #### I NFLUAB #### [facility] [address] [place] [address] [address] [address] Cherie Dior Physician Referralon 022 Physician Referral [phone] [id number] Normal [facility] PREG HCG QUALon 01-05-2022 , QUAL Negative Normal NEGATIVE [facility] Comment on above: Performed By: #### B BOX GLUER, CMADM, CMP #### [facility] [address] [place], [place] [id number] Dr. Cherie Dior MG MAMM SCREEN 3D ARJUN CADon 01-02-2022 MG MAMM SCREEN 3D ARJUN CAD Patient: NEEL GARCIA Exam Date: 01/02/2022 : 1980 Gender:F Ordering : DR INGRID DE LOS [place]ANTOS . Admission #: [id number] Family : Order #: [id number] CLICK HERE TO VIEW EXAM RADIOLOGY REPORT PROCEDURE: MAMMOGRAM SCREENING 3D BILATERAL CAD COMPARISON: MG MAMM SCREEN ARJUN W CAD, 07/29/2018. INDICATIONS: Screening mammography Calculator Name NCI Breast Cancer Risk Assessment Tool 5 Year Breast Cancer Risk Not Reported. Lifetime Breast Cancer Risk Not Reported. Personal Breast Cancer No Personal Ovarian Cancer No Treatments None Family Cancers None LOCATION: [facility] BREAST COMPOSITION: Heterogeneously dense,which may obscure [...] MD on 01/02/2022 at 11:25 Normal [facility] Covid-19 PCR (CVDTBH)on SARS-CoV-2 (COVID-19) RNA JULEE+probe Ql (Unsp spec) Not detected Normal NOT DETECTED [facility] Comment on above: Result Comment: This test is not yet approved or cleared by the [place] FDA. When there are no FDA-approved or cleared tests available, and other criteria are met, FDA can make tests available under an emergency access mechanism called an Emergency Use Authorization (EUA). The EUA for this test is supported by the [place] of Health and Human Service's (HHS's) declaration [...] SARS-CoV-2. Performed By: #### I NFLUAB #### [facility] [address] [place] [address] Dr. Cherie Dior US PELVIS AND TRANSVAGon [...] by: AUSTIN DORIANENRIQUEPRIMITIVO Date: 2021-12-20 11:02 Normal [facility] PAP ACOG PANEL 2: 30 to 65on 12-19-2021 . . Normal [facility] Comment on above: Result Comment: Perf ormed at: WB Performed By: #### B BOX GLUER, CMADM, CMP #### [facility] [address] [address] [address] Cherie Dior Age Gdln ACOG Testing 30- Normal [facility] Comment on above: Performed By: #### B BOX GLUER, CMADM, CMP #### [facility] [address] [address] [address] Cherie Dior DIAGNOSIS: Comment Normal [facility] Comment on above: Result Comment: NEGA TIVE FOR INTRAEPITHELIAL LESION OR MALIGNANCY. Performed at: WB Performed By: #### B BOX GLUER, CMADM, CMP #### [facility] [address] [address] [address] Cherie Dior HPV Aptima Negative Normal Negative [facility] Comment on above: Result Comment: This nucleic acid amplification test detects fourteen high-risk HPV types (16,18,31,33,35,39,45,51,52,56,58,59,66,68) without differentiation. Performed at: =G Performed By: #### B BOX GLUER, CMADM, CMP #### [facility] [address] [address] [address] Cherie Dior Methodology: Comment Normal [facility] Comment on above: Result Comment: This liquid based ThinPrep(R) pap test was screened with the use of an image guided system. Performed at: WB Performed By: #### B BOX GLUER, CMADM, CMP #### [facility] [address] [address] [address] Cherie Dior Note: Comment Normal [facility] Comment on above: Result Comment: The Pap smear is a screening test designed to aid in the detection of premalignant and malignant conditions of the uterine cervix. It is not a diagnostic procedure and should not be used as the sole means of detecting cervical cancer. Both false-positive and false-negative reports do occur. . Performed at: WB Performed By: #### B BOX GLUER, CMADM, CMP #### [facility] [address] [address] [address] Cherie Dior Performed by: Comment Normal [facility] Comment on above: Result Comment: Griselda Drummond, Paper Box Maker (ASCP) Performed at: WB Performed By: #### B BOX GLUER, CMADM, CMP #### [facility] [address] [address] [address] Cherie Dior Specimen adequacy: Comment Normal [facility] Comment on above: Result Comment: Sati sfactory for evaluation. Endocervical and/or squamous metaplastic cells (endocervical component) are present. Performed at: WB Performed By: #### B BOX GLUER, CMADM, CMP #### [facility] [address] [address] [address] Cherie Jurado 11-14-2021 CNPN Telephone (HEMASA) NEEL GARCIA ([id number]) 1980 F Date Time Provider Department 11/14/21 JIAN DE LA CRUZ During your visit today, we recorded the following information about you: Jian De La Cruz RN 11/14/2021 3:15 PM Signed ----- Message from Alina Barros RN sent at 11/13/2021 1:26 PM EDT ----- ----- Message ----- From: Paolo Ward MD Sent: 11/11/2021 6:10 AM EDT To: Alina Barros RN [facility]. Can you please call pt and let [...] JIAN DE LA CRUZ on 11/14/21 Normal [facility] CBC W Auto Differential pane l (Bld)on 11-10-2021 Basophils (Bld) [#/Vol] 0.03 10*3/uL Normal <0.11 [facility] Comment on above: Order Comment: Speci men Type: BLOOD SPECIMENOrdering Facility: [facility] Address: [address] [address] Performed By: #### 5 7021-8 ####[facility] [id number] [place] [address] Basophils/100 WBC (Bld) 0.9 % Normal C [facility] Comment on above: Order Comment: Speci men Type: BLOOD SPECIMENOrdering Facility: [facility] Address: [address] [address] Performed By: #### 5 7021-8 ####[facility] [id number] [place] [address] Differential cell count method Nom (Bld) Auto Normal [facility] Comment on above: Order Comment: Speci men Type: BLOOD SPECIMENOrdering Facility: [facility] Address: [address] [address] Performed By: #### 5 7021-8 ####[facility] [id number] [place] [address] Eosinophils (Bld) [#/Vol] 0.14 10*3/uL Normal <0.46 [facility] Comment on above: Order Comment: Speci men Type: BLOOD SPECIMENOrdering Facility: [facility] Address: [address] [place] [address] Performed By: #### 5 7021-8 ####[facility] [id number] [place] [address] Eosinophils/100 WBC (Bld) 4.2 % Normal [facility] Comment on above: Order Comment: Speci men Type: BLOOD SPECIMENOrdering Facility: [facility] Address: [address] [place] [address] Performed By: #### 5 7021-8 ####[facility] [id number] [place] [address] Erythrocyte distribution width (RBC) [Ratio] 15.4 % High 11.5-15.0 [facility] Comment on above: Order Comment: Speci men Type: BLOOD SPECIMENOrdering Facility: [facility] Address: [address] [place] [address] Performed By: #### 5 7021-8 ####[facility] [id number] [place] [address] Hematocrit (Bld) [Volume fraction] 38.0 % Normal 36.0-46.0 [facility] Comment on above: Order Comment: Speci men Type: BLOOD SPECIMENOrdering Facility: [facility] Address: [address] [place] [address] Performed By: #### 5 7021-8 ####[facility] [id number] [place] [address] Hemoglobin (Bld) [Mass/Vol] 12.0 g/dL Normal 11.5-15.5 [facility] Comment on above: Order Comment: Speci men Type: BLOOD SPECIMENOrdering Facility: [facility] Address: [address] [place] [address] Performed By: #### 5 7021-8 ####[facility] [id number] [place] [address] IMMATURE GRAN % 0.3 % Normal [facility] Comment on above: Order Comment: Speci men Type: BLOOD SPECIMENOrdering Facility: [facility] Address: [address] [place] [address] Performed By: #### 5 7021-8 ####[facility] [id number] [place] [address] IMMATURE GRAN ABS <0.03 Normal <0.10 [facility] Comment on above: Order Comment: Speci men Type: BLOOD SPECIMENOrdering Facility: [facility] Address: [address] [place] [address] Performed By: #### 5 7021-8 ####[facility] [id number] [place] [address] Lymphocytes (Bld) [#/Vol] 1.26 10*3/uL Normal 1.00-4.00 [facility] Comment on above: Order Comment: Speci men Type: BLOOD SPECIMENOrdering Facility: [facility] Address: [address] [place] [address] Performed By: #### 5 7021-8 ####[facility] [id number] [place] [address] Lymphocytes/100 WBC (Bld) 38.1 % Normal [facility] Comment on above: Order Comment: Speci men Type: BLOOD SPECIMENOrdering Facility: [facility] Address: [address] [place] [address] Performed By: #### 5 7021-8 ####[facility] [id number] [place] [address] MCH (RBC) [Entitic mass] 27.9 pg Normal 26.0-34.0 [facility] Comment on above: Order Comment: Speci men Type: BLOOD SPECIMENOrdering Facility: [facility] Address: [address] [place] [address] Performed By: #### 5 7021-8 ####[facility] [id number] [place] [address] MCHC (RBC) [Mass/Vol] 31.6 g/dL Normal 30.5-36.0 [facility] Comment on above: Order Comment: Speci men Type: BLOOD SPECIMENOrdering Facility: [facility] Address: [address] [place] [address] Performed By: #### 5 7021-8 ####[facility] [id number] [place] [address] MCV (RBC) [Entitic vol] 88.4 fL Normal 80.0-100.0 C [facility] Comment on above: Order Comment: Speci men Type: BLOOD SPECIMENOrdering Facility: [facility] Address: [address] [place] [address] Performed By: #### 5 7021-8 ####[facility] [id number] [place] [address] Monocytes (Bld) [#/Vol] 0.43 10*3/uL Normal <0.87 [facility] Comment on above: Order Comment: Speci men Type: BLOOD SPECIMENOrdering Facility: [facility] Address: [address] [place] [address] Performed By: #### 5 7021-8 ####[facility] [id number] [place] [address] Monocytes/100 WBC (Bld) 13.0 % Normal C [facility] Comment on above: Order Comment: Speci men Type: BLOOD SPECIMENOrdering Facility: [facility] Address: [address] [place] [address] Performed By: #### 5 7021-8 ####[facility] [id number] [place] [address] Neutrophils (Bld) [#/Vol] 1.44 10*3/uL Low 1.45-7.50 [facility] Comment on above: Order Comment: Speci men Type: BLOOD SPECIMENOrdering Facility: [facility] Address: [address] [place] [address] Performed By: #### 5 7021-8 ####[facility] [id number] [place] [address] Neutrophils/100 WBC (Bld) 43.5 % Normal [facility] Comment on above: Order Comment: Speci men Type: BLOOD SPECIMENOrdering Facility: [facility] Address: [address] [place] [address] Performed By: #### 5 7021-8 ####[facility] [id number] [place] [address] Nucleated RBC (Bld) [#/Vol] 10*3/uL Normal <0.01 [facility] Comment on above: Order Comment: Speci men Type: BLOOD SPECIMENOrdering Facility: [facility] Address: [address] [place], [place] [address] Performed By: #### 5 7021-8 ####[facility] [id number] [place] [address] Nucleated RBC/100 WBC (Bld) [Ratio] 0.0 /100 WBC Normal [facility] Comment on above: Order Comment: Speci men Type: BLOOD SPECIMENOrdering Facility: [facility] Address: [address] [place], [place] [address] Performed By: #### 5 7021-8 ####[facility] [id number] [place] [address] Platelet mean volume (Bld) [Entitic vol] 9.5 fL Normal 9.0-12.7 [facility] Comment on above: Order Comment: Speci men Type: BLOOD SPECIMENOrdering Facility: [facility] Address: [address] [place] [address] Performed By: #### 5 7021-8 ####[facility] [id number] [place] [address] Platelets (Bld) [#/Vol] 239 10*3/uL Normal 150-400 [facility] Comment on above: Order Comment: Speci men Type: BLOOD SPECIMENOrdering Facility: [facility] Address: [address] [place] [address] Performed By: #### 5 7021-8 ####[facility] [id number] [place] [address] RBC (Bld) [#/Vol] 4.30 10*6/uL Normal 3.90-5.20 [facility] Comment on above: Order Comment: Speci men Type: BLOOD SPECIMENOrdering Facility: [facility] Address: [address] [place] [address] Performed By: #### 5 7021-8 ####[facility] [id number] [place] [address] WBC (Bld) [#/Vol] 3.31 10*3/uL Low 3.70-11.00 [facility] Comment on above: Order Comment: Speci men Type: BLOOD SPECIMENOrdering Facility: [facility] Address: [address] [place] [address] Performed By: #### 5 7021-8 ####[facility] [id number] [place] [address] CNOVSPon 11-10-2021 CNOVSP Visit (SP) Office (HEMASA) NEEL GARCIA ([id number]) 1980 F Date Time Provider Department 11/10/21 [...] provide more details. She was born in [place] and has lived in [place] in the past. She reports occasional smoking - cigars that are dipped in cognac - last use a month back. Occasional alcohol use. No other substance abuse reported. She lives with her with 5 children. She is not working now but used to work at [employer] (was laid off during ). MEDICATIONS AND [...] which included preparing to see the patient, [id number]-[id number] patient care, completing clinical documentation, obtaining and/or reviewing separately obtained history, performing a medically appropriate examination, counseling and educating the patient/family/careg iver, ordering medications, tests, or pro (more content not included)... Normal [facility] Comprehensive metabolic 2000 panelon 11-10-2021 Albumin [Mass/Vol] 4.1 g/dL Normal 3.9-4.9 [facility] Comment on above: Order Comment: Speci men Type: BLOOD SPECIMENOrdering Facility: [facility] Address: [address] [place] [address] Performed By: #### 2 4323-8 ####[facility] [id number] [place] [address] ALP [Catalytic activity/Vol] 64 U/L Normal 34-123 [facility] Comment on above: Order Comment: Speci men Type: BLOOD SPECIMENOrdering Facility: [facility] Address: [address] [place] [address] Performed By: #### 2 4323-8 ####[facility] [id number] [place] [address] ALT [Catalytic activity/Vol] 26 U/L Normal 7-38 [facility] Comment on above: Order Comment: Speci men Type: BLOOD SPECIMENOrdering Facility: [facility] Address: [address] [place] [address] Performed By: #### 2 4323-8 ####[facility] [id number] [place] [address] Anion gap [Moles/Vol] 8 mmol/L Low 9-18 [facility] Comment on above: Order Comment: Speci men Type: BLOOD SPECIMENOrdering Facility: [facility] Address: [address] [place] [address] Performed By: #### 2 4323-8 ####[facility] [id number] [place] [address] AST [Catalytic activity/Vol] 22 U/L Normal 13-35 [facility] Comment on above: Order Comment: Speci men Type: BLOOD SPECIMENOrdering Facility: [facility] Address: [address] [place] [address] Performed By: #### 2 4323-8 ####[facility] [id number] [place] [address] Bilirubin [Mass/Vol] 0.6 mg/dL Normal 0.2-1.3 [facility] Comment on above: Order Comment: Speci men Type: BLOOD SPECIMENOrdering Facility: [facility] Address: [address] [place] [address] Performed By: #### 2 4323-8 ####[facility] [id number] [place] [address] Calcium [Mass/Vol] 9.3 mg/dL Normal 8.5-10.2 [facility] Comment on above: Order Comment: Speci men Type: BLOOD SPECIMENOrdering Facility: [facility] Address: [address] [place] [address] Performed By: #### 2 4323-8 ####[facility] [id number] [place] [address] Chloride [Moles/Vol] 107 mmol/L High 97-105 [facility] Comment on above: Order Comment: Speci men Type: BLOOD SPECIMENOrdering Facility: [facility] Address: [address] [place] [address] Performed By: #### 2 4323-8 ####[facility] [id number] [place] [address] CO2 [Moles/Vol] 27 mmol/L Normal 22-30 [facility] Comment on above: Order Comment: Speci men Type: BLOOD SPECIMENOrdering Facility: [facility] Address: [address] [address] Performed By: #### 2 4323-8 ####[facility] [id number] [place] [address] Creatinine [Mass/Vol] 0.91 mg/dL Normal 0.58-0.96 [facility] Comment on above: Order Comment: Speci men Type: BLOOD SPECIMENOrdering Facility: [facility] Address: [address] [place] [address] Performed By: #### 2 4323-8 ####[facility] [id number] [place] [address] ESTIMATED GLOMERULAR FILTRATION RATE 80 mL/min/1.73m??? Normal >=60 [facility] Comment on above: Order Comment: Speci men Type: BLOOD SPECIMENOrdering Facility: [facility] Address: [address] [place] [address] Result Comment: Mari mated Glomerular Filtration Rate [...] actual GFR. Performed By: #### 2 4323-8 ####[facility] [id number] [place] [address] Glucose [Mass/Vol] 102 mg/dL High 74-99 [facility] Comment on above: Order Comment: Speci men Type: BLOOD SPECIMENOrdering Facility: [facility] Address: [address] [place] [address] Result Comment: The [place] Diabetes Association (ADA) provides guidance for cutoff [...] Standards of Medical Care in Diabetes 2016, [place] Diabetes Association. Diabetes Care. 2016.39(Suppl 1). Performed By: #### 2 4323-8 ####[facility] [id number] [place] [address] Potassium [Moles/Vol] 4.0 mmol/L Normal 3.7-5.1 [facility] Comment on above: Order Comment: Speci men Type: BLOOD SPECIMENOrdering Facility: [facility] Address: [address] [place] [address] Performed By: #### 2 4323-8 ####[facility] [id number] [place] [address] Protein [Mass/Vol] 6.6 g/dL Normal 6.3-8.0 [facility] Comment on above: Order Comment: Speci men Type: BLOOD SPECIMENOrdering Facility: [facility] Address: [address] [place] [address] Performed By: #### 2 4323-8 ####[facility] [id number] [place] [address] Sodium [Moles/Vol] 142 mmol/L Normal 136-144 [facility] Comment on above: Order Comment: Speci men Type: BLOOD SPECIMENOrdering Facility: [facility] Address: [address] [address] Performed By: #### 2 4323-8 ####[facility] [id number] [place] [address] Urea nitrogen [Mass/Vol] 13 mg/dL Normal 7-21 [facility] Comment on above: Order Comment: Speci men Type: BLOOD SPECIMENOrdering Facility: [facility] Address: [address] [place], [place] [address] Performed By: #### 2 4323-8 ####[facility] [id number] [place] [address] Ferritin SerPl-mCncon 2021 Ferritin [Mass/Vol] 198.0 ng/mL Normal 14.7-205.1 [facility] Comment on above: Order Comment: Speci men Type: BLOOD SPECIMENOrdering Facility: [facility] Address: [address] [place] [address] Performed By: #### 2 276-4 ####[facility] LABCLIA [id number] [place] [address] [place] Iron and Iron binding capaci panelon 11-10-2021 Iron [Mass/Vol] 62 ug/dL Normal 41-186 [facility] Comment on above: Order Comment: Speci men Type: BLOOD SPECIMENOrdering Facility: [facility] Address: [address] [place], [place] [address] Performed By: #### 5 0190-8 ####[facility] LABCLIA [id number] [place] [address] [place] Iron binding capacity [Mass/Vol] 311 ug/dL Normal 232-386 [facility] Comment on above: Order Comment: Speci men Type: BLOOD SPECIMENOrdering Facility: [facility] Address: [address] [place], [place] [address] Performed By: #### 5 0190-8 ####[facility] LABCLIA [id number] [place] [address] [place] Iron/TIBC [Molar ratio] 19.9 % Normal 15.0-57.0 [facility] Comment on above: Order Comment: Speci men Type: BLOOD SPECIMENOrdering Facility: [facility] Address: [address] [place] [address] Performed By: #### 5 0190-8 ####[facility] LABCLIA [id number] [facility] CENTERKimberly [facility] [place] [address] [place] CBC W Auto Differential pane l (Bld)on 10-06-2021 Basophils (Bld) [#/Vol] 0.04 10*3/uL Normal <0.11 [facility] Comment on above: Order Comment: Speci men Type: BLOOD SPECIMENOrdering Facility: [facility] Address: [address] [place] [address] Performed By: #### 5 7021-8 ####[facility] LABCLIA [id number] [place] [address] Basophils/100 WBC (Bld) 1.0 % Normal C [facility] Comment on above: Order Comment: Speci men Type: BLOOD SPECIMENOrdering Facility: [facility] Address: [address] [place] [address] Performed By: #### 5 7021-8 ####[facility] LABCLIA [id number] [place] [address] Differential cell count method Nom (Bld) Auto Normal [facility] Comment on above: Order Comment: Speci men Type: BLOOD SPECIMENOrdering Facility: [facility] Address: [address] [place], [place] [address] Performed By: #### 5 7021-8 ####[facility] LABCLIA [id number] [place] [address] Eosinophils (Bld) [#/Vol] 0.21 10*3/uL Normal <0.46 [facility] Comment on above: Order Comment: Speci men Type: BLOOD SPECIMENOrdering Facility: [facility] Address: [address] [place], [place] [address] Performed By: #### 5 7021-8 ####[facility] LABCLIA [id number] [place] [address] Eosinophils/100 WBC (Bld) 5.3 % Normal [facility] Comment on above: Order Comment: Speci men Type: BLOOD SPECIMENOrdering Facility: [facility] Address: [address] [place] [address] Performed By: #### 5 7021-8 ####[facility] LABCLIA [id number] [place] [address] Erythrocyte distribution width (RBC) [Ratio] 14.1 % Normal 11.5-15.0 [facility] Comment on above: Order Comment: Speci men Type: BLOOD SPECIMENOrdering Facility: [facility] Address: [address] [place] [address] Performed By: #### 5 7021-8 ####[facility] LABCLIA [id number] [place] [address] Hematocrit (Bld) [Volume fraction] 38.1 % Normal 36.0-46.0 [facility] Comment on above: Order Comment: Speci men Type: BLOOD SPECIMENOrdering Facility: [facility] Address: [address] [place] [address] Performed By: #### 5 7021-8 ####[facility] LABCLIA [id number] [place] [address] Hemoglobin (Bld) [Mass/Vol] 12.2 g/dL Normal 11.5-15.5 [facility] Comment on above: Order Comment: Speci men Type: BLOOD SPECIMENOrdering Facility: [facility] Address: [address] [place] [address] Performed By: #### 5 7021-8 ####[facility] LABCLIA [id number] [place] [address] IMMATURE GRAN % 0.3 % Normal [facility] Comment on above: Order Comment: Speci men Type: BLOOD SPECIMENOrdering Facility: [facility] Address: [address] [place] [address] Performed By: #### 5 7021-8 ####[facility] LABCLIA [id number] [place] [address] IMMATURE GRAN ABS <0.03 Normal <0.10 [facility] Comment on above: Order Comment: Speci men Type: BLOOD SPECIMENOrdering Facility: [facility] Address: [address] [place] [address] Performed By: #### 5 7021-8 ####[facility] LABCLIA [id number] [place] [address] Lymphocytes (Bld) [#/Vol] 1.37 10*3/uL Normal 1.00-4.00 [facility] Comment on above: Order Comment: Speci men Type: BLOOD SPECIMENOrdering Facility: [facility] Address: [address] [place] [address] Performed By: #### 5 7021-8 ####[facility] LABIA [id number] [place] [address] Lymphocytes/100 WBC (Bld) 34.3 % Normal [facility] Comment on above: Order Comment: Speci men Type: BLOOD SPECIMENOrdering Facility: [facility] Address: [address] [place] [address] Performed By: #### 5 7021-8 ####[facility] LABCLIA [id number] [place] [address] MCH (RBC) [Entitic mass] 27.2 pg Normal 26.0-34.0 [facility] Comment on above: Order Comment: Speci men Type: BLOOD SPECIMENOrdering Facility: [facility] Address: [address] [place] [address] Performed By: #### 5 7021-8 ####[facility] LABCLIA [id number] [place] [address] MCHC (RBC) [Mass/Vol] 32.0 g/dL Normal 30.5-36.0 [facility] Comment on above: Order Comment: Speci men Type: BLOOD SPECIMENOrdering Facility: [facility] Address: [address] [place] [address] Performed By: #### 5 7021-8 ####[facility] LABCLIA [id number] [place] [address] MCV (RBC) [Entitic vol] 85.0 fL Normal 80.0-100.0 [facility] Comment on above: Order Comment: Speci men Type: BLOOD SPECIMENOrdering Facility: [facility] Address: [address] [place] [address] Performed By: #### 5 7021-8 ####[facility] LABCLIA [id number] [place] [address] Monocytes (Bld) [#/Vol] 0.46 10*3/uL Normal <0.87 [facility] Comment on above: Order Comment: Speci men Type: BLOOD SPECIMENOrdering Facility: [facility] Address: [address] [place] [address] Performed By: #### 5 7021-8 ####[facility] LABCLIA [id number] [place] [address] Monocytes/100 WBC (Bld) 11.5 % Normal [facility] Comment on above: Order Comment: Speci men Type: BLOOD SPECIMENOrdering Facility: [facility] Address: [address] [place] [address] Performed By: #### 5 7021-8 ####[facility] LABCLIA [id number] [place] [address] Neutrophils (Bld) [#/Vol] 1.91 10*3/uL Normal 1.45-7.50 [facility] Comment on above: Order Comment: Speci men Type: BLOOD SPECIMENOrdering Facility: [facility] Address: [address] [address] Performed By: #### 5 7021-8 ####[facility] LABCLIA [id number] [place] [address] Neutrophils/100 WBC (Bld) 47.6 % Normal [facility] Comment on above: Order Comment: Speci men Type: BLOOD SPECIMENOrdering Facility: [facility] Address: [address] [place] [address] Performed By: #### 5 7021-8 ####[facility] LABCLIA [id number] [place] [address] Nucleated RBC (Bld) [#/Vol] 10*3/uL Normal <0.01 [facility] Comment on above: Order Comment: Speci men Type: BLOOD SPECIMENOrdering Facility: [facility] Address: [address] [place] [address] Performed By: #### 5 7021-8 ####[facility] LABCLIA [id number] [place] [address] Nucleated RBC/100 WBC (Bld) [Ratio] 0.0 /100 WBC Normal [facility] Comment on above: Order Comment: Speci men Type: BLOOD SPECIMENOrdering Facility: [facility] Address: [address] [place] [address] Performed By: #### 5 7021-8 ####[facility] LABCLIA [id number] [place] [address] Platelet mean volume (Bld) [Entitic vol] 9.6 fL Normal 9.0-12.7 [facility] Comment on above: Order Comment: Speci men Type: BLOOD SPECIMENOrdering Facility: [facility] Address: [address] [place] [address] Performed By: #### 5 7021-8 ####[facility] LABCLIA [id number] [place] [address] Platelets (Bld) [#/Vol] 265 10*3/uL Normal 150-400 [facility] Comment on above: Order Comment: Speci men Type: BLOOD SPECIMENOrdering Facility: [facility] Address: [address] [place] [address] Performed By: #### 5 7021-8 ####[facility] LABCLIA [id number] [place] [address] RBC (Bld) [#/Vol] 4.48 10*6/uL Normal 3.90-5.20 [facility] Comment on above: Order Comment: Speci men Type: BLOOD SPECIMENOrdering Facility: [facility] Address: [address] [place] [address] Performed By: #### 5 7021-8 ####[facility] LABCLIA [id number] [place] [address] WBC (Bld) [#/Vol] 4.00 10*3/uL Normal 3.70-11.00 [facility] Comment on above: Order Comment: Speci men Type: BLOOD SPECIMENOrdering Facility: [facility] Address: [address] [place] [address] Performed By: #### 5 7021-8 ####[facility] LABCLIA [id number] [place] [address] Abs Immature Gran <0.03 <0.10 k/uL [facility] Basophils (Bld) [#/Vol] 0.04 10*3/uL <0.11 k/uL [facility] Basophils/100 WBC (Bld) 1.0 % [facility] Differential cell count method Nom (Bld) Auto [facility] Eosinophils (Bld) [#/Vol] 0.21 10*3/uL <0.46 k/uL [facility] Eosinophils/100 WBC (Bld) 5.3 % [facility] Erythrocyte distribution width (RBC) [Ratio] 14.1 % 11.5 - 15.0 % [facility] Hematocrit (Bld) [Volume fraction] 38.1 % 36.0 - 46.0 % [facility] Hemoglobin (Bld) [Mass/Vol] 12.2 g/dL 11.5 - 15.5 g/dL [facility] Immature Gran % 0.3 % [facility] Lymphocytes (Bld) [#/Vol] 1.37 10*3/uL 1.00 - 4.00 k/uL [facility] Lymphocytes/100 WBC (Bld) 34.3 % [facility] MCH (RBC) [Entitic mass] 27.2 pg 26.0 - 34.0 pg [facility] MCHC (RBC) [Mass/Vol] 32.0 g/dL 30.5 - 36.0 g/dL [facility] MCV (RBC) [Entitic vol] 85.0 fL 80.0 - 100.0 fL [facility] Monocytes (Bld) [#/Vol] 0.46 10*3/uL <0.87 k/uL [facility] Monocytes/100 WBC (Bld) 11.5 % C [facility] Neutrophils (Bld) [#/Vol] 1.91 10*3/uL 1.45 - 7.50 k/uL [facility] Neutrophils/100 WBC (Bld) 47.6 % [facility] Nucleated RBC (Bld) [#/Vol] 10*3/uL <0.01 k/uL [facility] Nucleated RBC/100 WBC (Bld) [Ratio] 0.0 /100 WBC [facility] Platelet mean volume (Bld) [Entitic vol] 9.6 fL 9.0 - 12.7 fL [facility] Platelets (Bld) [#/Vol] 265 10*3/uL 150 - 400 k/uL [facility] RBC (Bld) [#/Vol] 4.48 10*6/uL 3.90 - 5.2 0 m/uL [facility] WBC (Bld) [#/Vol] 4.00 10*3/uL 3.70 - 11. 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 During your visit today, we recorded the following information about you: Vika Parrish Toya Pulido 10/06/2021 1:14 PM Signed 1st report of treatment-Non oncology regimen (Monoferric) Patient has [place] [employer] therefore no FA is required Allergies As of Date: 10/06/2021 (No Known Allergies) Date Reviewed: 10/06/2021 Reviewed by: Arleth Bangura RN - Fully Assessed Reason for Visit: Benefits Investigation [9120] Prescriptions as of 10/06/2021 - SUMAtriptan (IMITREX) [...] 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] 09/29/2021 Encounter Status:Closed by [facility], VIKA Parrish on 10/06/21 Normal [facility] Ferritin SerPl-mCncon 2021 Ferritin [Mass/Vol] 24.6 ng/mL Normal 14.7-205.1 [facility] Comment on above: Order Comment: Speci men Type: BLOOD SPECIMENOrdering Facility: [facility] Address: [address] [place] [place] [address] [place] [address] Performed By: #### 2 276-4, 59251-3 ####[facility] LABIA [id number] [address] [place] and [place] binding capaci ty panelon 10-06-2021 Iron [Mass/Vol] 33 ug/dL Low 41-186 [facility] Comment on above: Order Comment: Speci men Type: BLOOD SPECIMENOrdering Facility: [facility] Address: [address] [place] [address] Performed By: #### 2 276-4, 58014-0 ####[facility] LABIA [id number] [address] Iron binding capacity [Mass/Vol] 426 ug/dL High 232-386 [facility] Comment on above: Order Comment: Speci men Type: BLOOD SPECIMENOrdering Facility: [facility] Address: [address] [place] [address] Performed By: #### 2 276-4, 21452-8 ####[facility] H[facility]PITAL[facility] [id number] [address] Iron/TIBC [Molar ratio] 7.7 % Low 15.0-57.0 C [facility] Comment on above: Order Comment: Speci men Type: BLOOD SPECIMENOrdering Facility: [facility] Address: [address] [place] [address] Performed By: #### 2 276-4, 26512-5 ####[facility] LABIA [id number] [address] [place] Rhiannon 09-29-2021 PREM Telephone (HEMASA) NEEL GARCIA ([id number]) 1980 F Date Time Provider Department 09/29/21 [...] anemia [D50.9] 09/29/2021 Encounter Status:Closed by PAOLO WRAD on 09/29/21 Normal [facility] CBC W Auto Differential pane l (Bld)on 09-28-2021 Basophils (Bld) [#/Vol] 0.04 10*3/uL Normal <0.11 [facility] Comment on above: Order Comment: Speci men Type: BLOOD SPECIMENOrdering Facility: [facility] Address: [address] [address] Performed By: #### 1 4196-0, 45686-6 ####[facility] LABCLIA [id number] [place] [address] Basophils/100 WBC (Bld) 0.8 % Normal [facility] Comment on above: Order Comment: Speci men Type: BLOOD SPECIMENOrdering Facility: [facility] Address: [address] [place] [address] Performed By: #### 1 4196-0, 75637-9 ####[facility] LABCLIA [id number] [place] [address] Differential cell count method Nom (Bld) Auto Normal [facility] Comment on above: Order Comment: Speci men Type: BLOOD SPECIMENOrdering Facility: [facility] Address: [address] [place] [address] Performed By: #### 1 4196-0, ####[facility] LABCLIA [id number] [place] [address] Eosinophils (Bld) [#/Vol] 0.27 10*3/uL Normal <0.46 [facility] Comment on above: Order Comment: Speci men Type: BLOOD SPECIMENOrdering Facility: [facility] Address: [address] [place] [address] Performed By: #### 1 4196-0, ####[facility] LABCLIA [id number] [place] [address] Eosinophils/100 WBC (Bld) 5.6 % Normal [facility] Comment on above: Order Comment: Speci men Type: BLOOD SPECIMENOrdering Facility: [facility] Address: [address] [place] [address] Performed By: #### 1 4196-0, 85102-5 ####[facility] LABCLIA [id number] [place] [address] Erythrocyte distribution width (RBC) [Ratio] 13.7 % Normal 11.5-15.0 [facility] Comment on above: Order Comment: Speci men Type: BLOOD SPECIMENOrdering Facility: [facility] Address: [address] [place] [address] Performed By: #### 1 4196-0, 03655-9 ####[facility] LABIA [id number] [place] [address] Hematocrit (Bld) [Volume fraction] 37.2 % Normal 36.0-46.0 [facility] Comment on above: Order Comment: Speci men Type: BLOOD SPECIMENOrdering Facility: [facility] Address: [address] [place] [address] Performed By: #### 1 4196-0, 04843-1 ####[facility] [id number] [place] [address] Hemoglobin (Bld) [Mass/Vol] 11.8 g/dL Normal 11.5-15.5 [facility] Comment on above: Order Comment: Speci men Type: BLOOD SPECIMENOrdering Facility: [facility] Address: [address] [place] [address] Performed By: #### 1 4196-0, 23973-6 ####[facility] LABIA [id number] [place] [address] IMMATURE GRAN % 0.2 % Normal [facility] Comment on above: Order Comment: Speci men Type: BLOOD SPECIMENOrdering Facility: [facility] Address: [address] [place] [address] Performed By: #### 1 4196-0, 93150-2 ####[facility] LABIA [id number] [place] [address] IMMATURE GRAN ABS <0.03 Normal <0.10 [facility] Comment on above: Order Comment: Speci men Type: BLOOD SPECIMENOrdering Facility: [facility] Address: [address] [place] [address] Performed By: #### 1 4196-0, 78081-4 ####[facility] LABCLIA [id number] [place] [address] Lymphocytes (Bld) [#/Vol] 1.88 10*3/uL Normal 1.00-4.00 [facility] Comment on above: Order Comment: Speci men Type: BLOOD SPECIMENOrdering Facility: [facility] Address: [address] [place] [address] Performed By: #### 1 4196-0, 20900-0 ####[facility] LABIA [id number] [place] [address] Lymphocytes/100 WBC (Bld) 38.9 % Normal [facility] Comment on above: Order Comment: Speci men Type: BLOOD SPECIMENOrdering Facility: [facility] Address: [address] [place] [address] Performed By: #### 1 4196-0, 39491-1 ####[facility] LABIA [id number] [place] [address] MCH (RBC) [Entitic mass] 27.3 pg Normal 26.0-34.0 [facility] Comment on above: Order Comment: Speci men Type: BLOOD SPECIMENOrdering Facility: [facility] Address: [address] [place] [address] Performed By: #### 1 4196-0, 77863-4 ####[facility] LABCLIA [id number] [place] [address] MCHC (RBC) [Mass/Vol] 31.7 g/dL Normal 30.5-36.0 [facility] Comment on above: Order Comment: Speci men Type: BLOOD SPECIMENOrdering Facility: [facility] Address: [address] [place] [address] Performed By: #### 1 4196-0, 89702-5 ####[facility] LABCLIA [id number] [place] [address] MCV (RBC) [Entitic vol] 85.9 fL Normal 80.0-100.0 C [facility] Comment on above: Order Comment: Speci men Type: BLOOD SPECIMENOrdering Facility: [facility] Address: [address] [place] [address] Performed By: #### 1 4196-0, 00515-9 ####[facility] LABCLIA [id number] [place] [address] Monocytes (Bld) [#/Vol] 0.56 10*3/uL Normal <0.87 [facility] Comment on above: Order Comment: Speci men Type: BLOOD SPECIMENOrdering Facility: [facility] Address: [address] [place] [address] Performed By: #### 1 4196-0, 50648-9 ####[facility] LABCLIA [id number] [place] [address] Monocytes/100 WBC (Bld) 11.6 % Normal C [facility] Comment on above: Order Comment: Speci men Type: BLOOD SPECIMENOrdering Facility: [facility] Address: [address] [place] [address] Performed By: #### 1 4196-0, 28009-4 ####[facility] LABCLIA [id number] [place] [address] Neutrophils (Bld) [#/Vol] 2.07 10*3/uL Normal 1.45-7.50 [facility] Comment on above: Order Comment: Speci men Type: BLOOD SPECIMENOrdering Facility: [facility] Address: [address] [place] [address] Performed By: #### 1 4196-0, 31967-2 ####[facility] LABCLIA [id number] [place] [address] Neutrophils/100 WBC (Bld) 42.9 % Normal [facility] Comment on above: Order Comment: Speci men Type: BLOOD SPECIMENOrdering Facility: [facility] Address: [address] [place], [place] [address] Performed By: #### 1 4196-0, 93819-9 ####[facility] LABIA [id number] [place] [address] Nucleated RBC (Bld) [#/Vol] 10*3/uL Normal <0.01 [facility] Comment on above: Order Comment: Speci men Type: BLOOD SPECIMENOrdering Facility: [facility] Address: [address] [place] [address] Performed By: #### 1 4196-0, 49323-7 ####[facility] LABIA [id number] [place] [address] Nucleated RBC/100 WBC (Bld) [Ratio] 0.0 /100 WBC Normal [facility] Comment on above: Order Comment: Speci men Type: BLOOD SPECIMENOrdering Facility: [facility] Address: [address] [place] [address] Performed By: #### 1 4196-0, 13920-4 ####[facility] LABIA [id number] [place] [address] Platelet mean volume (Bld) [Entitic vol] 9.6 fL Normal 9.0-12.7 [facility] Comment on above: Order Comment: Speci men Type: BLOOD SPECIMENOrdering Facility: [facility] Address: [address] [place], [place] [address] Performed By: #### 1 4196-0, 74891-3 ####[facility] LABIA [id number] [place] [address] Platelets (Bld) [#/Vol] 234 10*3/uL Normal 150-400 [facility] Comment on above: Order Comment: Speci men Type: BLOOD SPECIMENOrdering Facility: [facility] Address: [address] [place] [address] Performed By: #### 1 4196-0, 29661-4 ####[facility] LABIA [id number] [place] [address] RBC (Bld) [#/Vol] 4.33 10*6/uL Normal 3.90-5.20 [facility] Comment on above: Order Comment: Speci men Type: BLOOD SPECIMENOrdering Facility: [facility] Address: [address] [place], [place] [address] Performed By: #### 1 4196-0, 09384-9 ####[facility] LABIA [id number] [place] [address] WBC (Bld) [#/Vol] 4.83 10*3/uL Normal 3.70-11.00 [facility] Comment on above: Order Comment: Speci men Type: BLOOD SPECIMENOrdering Facility: [facility] Address: [address] [place] [address] Performed By: #### 1 4196-0, 98463-3 ####[facility] LABIA [id number] [place] [address] CNOVSPon 09-28-2021 CNOVS Visit (SP) Office (HEMASA) NEEL GARCIA ([id number]) 1980 F Date Time Provider Department 09/28/21 [...] provide more details. She was born in [place] and has lived in [place] in the past. She reports occasional smoking - cigars that are dipped in cognac - last use a month back. Occasional alcohol use. No other substance abuse reported. She lives with her with 5 children. She is not working now but used to work at [employer] (was laid off during COVID-19). MEDICATIONS AND [...] which included preparing to see the patient, [id number] patient care, completing clinical documentation, obtaining and/or reviewing separately obtained history, performing a medically appropriate examination, counseling and educating the patient/family/careg iver, ordering medications, tests, or procedures, independently interpreting results (not separately reported) and communicating results to the patient/family/careg iver. CC: Blade Bryan (more content not included)... Normal [facility] FERRITIN BLDon 09-28-2021 Ferritin [Mass/Vol] 22.9 ng/mL Normal 14.7-205.1 [facility] Comment on above: Order Comment: Speci men Type: BLOOD SPECIMENOrdering Facility: [facility] Address: [address] [place], [place] [address] Performed By: #### I KENDRA, FERR ####[facility] LABCLIA [id number] [address] [place] IRON + TIBCon 09-28-2021 Iron [Mass/Vol] 44 ug/dL Normal 41-186 [facility] Comment on above: Order Comment: Speci men Type: BLOOD SPECIMENOrdering Facility: [facility] Address: [address] [place] [address] Performed By: #### I KENDRA, FERR ####[facility] LABIA [id number] [address] OF [facility] Iron binding capacity [Mass/Vol] 415 ug/dL High 232-386 [facility] Comment on above: Order Comment: Speci men Type: BLOOD SPECIMENOrdering Facility: [facility] Address: [address] [place], [place] [address] Performed By: #### Jerrell GARDNER, FERR ####[facility] LABIA [id number] [address] [place] Iron/TIBC [Molar ratio] 11 % Low 15-57 [facility] Comment on above: Order Comment: Speci men Type: BLOOD SPECIMENOrdering Facility: [facility] Address: [address] [place], [place] [address] Performed By: #### Jerrell GARDNER, FERR ####[facility] LABIA [id number] [place] [address] [place] Retics #on 09-28-2021 Reticulocytes (Bld) [#/Vol] 0.55927 10*3/uL Normal 0.018-0.100 [facility] Comment on above: Order Comment: Speci men Type: BLOOD SPECIMENOrdering Facility: [facility] Address: [address] [place], [place] [address] Performed By: #### 1 4196-0, 86609-7 ####[facility] LABCLIA [id number] [place] [address] Reticulocytes (Bld) [#/Vol]o n 09-28-2021 Reticulocytes/100 RBC (Bld) 1.0 % Normal 0.4-2.0 [facility] Comment on above: Order Comment: Speci men Type: BLOOD SPECIMENOrdering Facility: [facility] Address: [facility] [place] [address] Performed By: #### 1 4196-0, 37280-4 ####[facility] LABCLIA [id number] [place] [address] HCG,Quantitativeon 2 HCG,Quantitative < 0.60 Normal [facility] Comment on above: Result Comment: Appr oximate Approximate hCG Gestational Age Range (mIU/ml) (weeks) 0.2-1 5-50 1-2 50-500 2-3 100-5,000 3-4 500-10,000 4-5 1,000-50,000 5-6 10,000-100,000 6-8 15,000-200,000 8-12 10,000-100,000 PERFORMED BY: [place] [address] PATHOLOGIST BUSINESS SOLUTIONS DIRECTOR EDIN MONTERROSO M.D. Performed By: #### H CGQNT #### [facility] [address] [place] [address] Serum or plasma beta choriog onadotropin measurement (units/volume)Ordered By: Bryan Quiros on 09-20-2021 HCG.beta subunit Qn m[IU]/mL [facility] Comment on above: Approximate Approxim ate hCG Gestational Age Range (mIU/ml) (weeks) 0.2-1 5-50 1-2 50-500 2-3 100-5,000 3-4 500-10,000 4-5 1,000-50,000 5-6 10,000-100,000 6-8 15,000-200,000 8-12 10,000-100,000 COVID-19 [facility] 09-15-2021 SARS-CoV-2 (COVID-19) RNA JULEE+probe Ql (Unsp spec) Negative Normal Negative [facility] Comment on above: Order Comment: Healt hcare Worker?: N Result Comment: Testing for SARS-CoV-2 by RT-PCR This test was developed and its performance characteristics determined by [employer] (BD) and validated at the [facility]. This test has not been FDA cleared [...] is terminated or revoked sooner. PERFORMED BY: [place] [address] PATHOLOGIST BUSINESS SOLUTIONS DIRECTOR EDIN MONTERROSO M.D. Performed By: #### C OVID 19 [facility] #### [address] COVID-19 Positive/NegativeOr dered By: Bryan Quiros on 09-15-2021 SARS-CoV-2 (COVID-19) N gene JULEE+probe Ql (Resp) Negative Negative [facility] Comment on above: Testing for SARS-CoV -2 by RT-PCR This test was developed and its performance characteristics determined by [employer] (BD) and validated at the [facility]. This test has not been FDA cleared [...] Basophils (Bld) [#/Vol] 0.04 10*3/uL Normal <0.11 [facility] Comment on above: Order Comment: Speci men Type: BLOOD SPECIMENOrdering Facility: [facility] Address: [address] [place] [address] Performed By: #### 5 7021-8 ####[facility] LABCLIA [id number] [place] [address] Basophils/100 WBC (Bld) 1.0 % Normal [facility] Comment on above: Order Comment: Speci men Type: BLOOD SPECIMENOrdering Facility: [facility] Address: [address] [place] [address] Performed By: #### 5 7021-8 ####[facility] LABCLIA [id number] [place] [address] Differential cell count method Nom (Bld) Auto Normal [facility] Comment on above: Order Comment: Speci men Type: BLOOD SPECIMENOrdering Facility: [facility] Address: [address] [place] [address] Performed By: #### 5 7021-8 ####[facility] LABCLIA [id number] [place] [address] Eosinophils (Bld) [#/Vol] 0.18 10*3/uL Normal <0.46 [facility] Comment on above: Order Comment: Speci men Type: BLOOD SPECIMENOrdering Facility: [facility] Address: [address] [address] Performed By: #### 5 7021-8 ####[facility]CLIA [id number] [place] [address] Eosinophils/100 WBC (Bld) 4.6 % Normal [facility] Comment on above: Order Comment: Speci men Type: BLOOD SPECIMENOrdering Facility: [facility] Address: [address] [place] [address] Performed By: #### 5 7021-8 ####[facility] LABCLIA [id number] [place] [address] Erythrocyte distribution width (RBC) [Ratio] 14.9 % Normal 11.5-15.0 [facility] Comment on above: Order Comment: Speci men Type: BLOOD SPECIMENOrdering Facility: [facility] Address: [address] [place] [address] Performed By: #### 5 7021-8 ####[facility] LABCLIA [id number] [place] [address] Hematocrit (Bld) [Volume fraction] 38.6 % Normal 36.0-46.0 [facility] Comment on above: Order Comment: Speci men Type: BLOOD SPECIMENOrdering Facility: [facility] Address: [address] [place] [address] Performed By: #### 5 7021-8 ####[facility] LABCLIA [id number] [place] [address] Hemoglobin (Bld) [Mass/Vol] 12.2 g/dL Normal 11.5-15.5 [facility] Comment on above: Order Comment: Speci men Type: BLOOD SPECIMENOrdering Facility: [facility] Address: [address] [place] [address] Performed By: #### 5 7021-8 ####[facility] LABCLIA [id number] [place] [address] IMMATURE GRAN % 0.3 % Normal [facility] Comment on above: Order Comment: Speci men Type: BLOOD SPECIMENOrdering Facility: [facility] Address: [address] [place] [address] Performed By: #### 5 7021-8 ####[facility] LABCLIA [id number] [place] [address] IMMATURE GRAN ABS <0.03 Normal <0.10 [facility] Comment on above: Order Comment: Speci men Type: BLOOD SPECIMENOrdering Facility: [facility] Address: [address] [place] [address] Performed By: #### 5 7021-8 ####[facility] LABIA [id number] [place] [address] Lymphocytes (Bld) [#/Vol] 1.57 10*3/uL Normal 1.00-4.00 [facility] Comment on above: Order Comment: Speci men Type: BLOOD SPECIMENOrdering Facility: [facility] Address: [address] [place] [address] Performed By: #### 5 7021-8 ####[facility] LABIA [id number] [place] [address] Lymphocytes/100 WBC (Bld) 40.4 % Normal [facility] Comment on above: Order Comment: Speci men Type: BLOOD SPECIMENOrdering Facility: [facility] Address: [address] [place] [address] Performed By: #### 5 7021-8 ####[facility] LABIA [id number] [place] [address] MCH (RBC) [Entitic mass] 27.2 pg Normal 26.0-34.0 [facility] Comment on above: Order Comment: Speci men Type: BLOOD SPECIMENOrdering Facility: [facility] Address: [address] [place] [address] Performed By: #### 5 7021-8 ####[facility] LABCLIA [id number] [place] [address] MCHC (RBC) [Mass/Vol] 31.6 g/dL Normal 30.5-36.0 [facility] Comment on above: Order Comment: Speci men Type: BLOOD SPECIMENOrdering Facility: [facility] Address: [address] [place] [address] Performed By: #### 5 7021-8 ####[facility] LABCLIA [id number] [place] [address] MCV (RBC) [Entitic vol] 86.2 fL Normal 80.0-100.0 [facility] Comment on above: Order Comment: Speci men Type: BLOOD SPECIMENOrdering Facility: [facility] Address: [address] [place] [address] Performed By: #### 5 7021-8 ####[facility] LABCLIA [id number] [place] [address] Monocytes (Bld) [#/Vol] 0.43 10*3/uL Normal <0.87 [facility] Comment on above: Order Comment: Speci men Type: BLOOD SPECIMENOrdering Facility: [facility] Address: [address] [place] [address] Performed By: #### 5 7021-8 ####[facility] LABCLIA [id number] [place] [address] Monocytes/100 WBC (Bld) 11.1 % Normal C [facility] Comment on above: Order Comment: Speci men Type: BLOOD SPECIMENOrdering Facility: [facility] Address: [address] [place] [address] Performed By: #### 5 7021-8 ####[facility] LABCLIA [id number] [place] [address] Neutrophils (Bld) [#/Vol] 1.66 10*3/uL Normal 1.45-7.50 [facility] Comment on above: Order Comment: Speci men Type: BLOOD SPECIMENOrdering Facility: [facility] Address: [address] [place] [address] Performed By: #### 5 7021-8 ####[facility] LABCLIA [id number] [place] [address] Neutrophils/100 WBC (Bld) 42.6 % Normal [facility] Comment on above: Order Comment: Speci men Type: BLOOD SPECIMENOrdering Facility: [facility] Address: [address] [place] [address] Performed By: #### 5 7021-8 ####[facility] LABCLIA [id number] [place] [address] Nucleated RBC (Bld) [#/Vol] 10*3/uL Normal <0.01 [facility] Comment on above: Order Comment: Speci men Type: BLOOD SPECIMENOrdering Facility: [facility] Address: [address] [place] [address] Performed By: #### 5 7021-8 ####[facility] LABCLIA [id number] [place] [address] Nucleated RBC/100 WBC (Bld) [Ratio] 0.0 /100 WBC Normal [facility] Comment on above: Order Comment: Speci men Type: BLOOD SPECIMENOrdering Facility: [facility] Address: [address] [place] [address] Performed By: #### 5 7021-8 ####[facility] LABCLIA [id number] [place] [address] Platelet mean volume (Bld) [Entitic vol] 10.2 fL Normal 9.0-12.7 [facility] Comment on above: Order Comment: Speci men Type: BLOOD SPECIMENOrdering Facility: [facility] Address: [address] [place] [address] Performed By: #### 5 7021-8 ####[facility] LABCLIA [id number] [place] [address] Platelets (Bld) [#/Vol] 279 10*3/uL Normal 150-400 [facility] Comment on above: Order Comment: Speci men Type: BLOOD SPECIMENOrdering Facility: [facility] Address: [address] [place] [address] Performed By: #### 5 7021-8 ####[facility] LABIA [id number] [place] [address] RBC (Bld) [#/Vol] 4.48 10*6/uL Normal 3.90-5.20 [facility] Comment on above: Order Comment: Speci men Type: BLOOD SPECIMENOrdering Facility: [facility] Address: [address] [place] [address] Performed By: #### 5 7021-8 ####[facility] LABIA [id number] [place] [address] WBC (Bld) [#/Vol] 3.89 10*3/uL Normal 3.70-11.00 [facility] Comment on above: Order Comment: Speci men Type: BLOOD SPECIMENOrdering Facility: [facility] Address: [address] [place] [address] Performed By: #### 5 7021-8 ####[facility] [id number] [place] [address] CNOVSPon 08-14-2021 CNOVSP Visit (SP) Office ([facility]) NEEL GARCIA ([id number]) 1980 F Date Time Provider Department 08/14/21 [...] provide more details. She was born in [place] and has lived in [place] in the past. She reports occasional smoking - cigars that are dipped in cognac - last use a month back. Occasional alcohol use. No other substance abuse reported. She lives with her with 5 children. She is not working now but used to work at [employer] (was laid off during -). MEDICATIONS AND [...] which included preparing to see the patient, [id number] patient care, completing clinical documentation, obtaining and/or reviewing separately obtained history, performing a medically appropriate examination, counseling and educating the patient/family/careg iver, ordering medications, tests, or procedures, independently interpreting results (not separately reported) and communicating results to the patient/family/careg iver. CC: Blade Crews . Referring Provider: PAOLO WARD [[id number]] Allergies As of Date: 08/14/2021 (No Known Allergies) Date Reviewed: 08/14/2021 Reviewed by: Aranza Mobley MA - Fully Assessed Reason for Visit: Anemia [6] Cmt: 1 month follow up Primary Visit Diagnosis:Iron deficiency anemia, unspecified iron deficiency anemia type [D50.9] Order(s):CBC + DIFF [SQCBCDIF] Order #: [id number] FUTURE RETIC C (more content not included)... Normal [facility] IRON + TIBCon 08-14-2021 Iron [Mass/Vol] 61 ug/dL Normal 41-186 [facility] Comment on above: Order Comment: Speci men Type: BLOOD SPECIMENOrdering Facility: [facility] Address: [address] [place] [address] Result Comment: Resu lts may be falsely increased due to interference from hemolysis. Suggest reorder as clinically indicated. Performed By: #### I KENDRA ####[facility] LABCLIA [id number] [address] Iron binding capacity [Mass/Vol] Normal [facility] Comment on above: Order Comment: Speci men Type: BLOOD SPECIMENOrdering Facility: [facility] Address: [address] [place] [address] Result Comment: Unab le to calculate due to hemolysis. Performed By: #### I KENDRA ####[facility] LABCLIA [id number] [address] Iron/TIBC [Molar ratio] Normal C [facility] Comment on above: Order Comment: Speci men Type: BLOOD SPECIMENOrdering Facility: [facility] Address: [address] [place] [address] Result Comment: Unab le to calculate due to hemolysis. Performed By: #### I KENDRA ####[facility] LABCLIA [id number] [address] [facility] CBC W Auto Differential pane l (Bld)on 06-26-2021 Basophils (Bld) [#/Vol] 0.04 10*3/uL Normal <0.11 [facility] Comment on above: Order Comment: Speci men Type: BLOOD SPECIMENOrdering Facility: [facility] Address: [address] [place] [address] Performed By: #### 5 7021-8 ####[facility] LABCLIA [id number] [place] [address] Basophils/100 WBC (Bld) 0.8 % Normal [facility] Comment on above: Order Comment: Speci men Type: BLOOD SPECIMENOrdering Facility: [facility] Address: [address] [place] [address] Performed By: #### 5 7021-8 ####[facility] LABCLIA [id number] [place] [address] Differential cell count method Nom (Bld) Auto Normal [facility] Comment on above: Order Comment: Speci men Type: BLOOD SPECIMENOrdering Facility: [facility] Address: [address] [place] [address] Performed By: #### 5 7021-8 ####[facility] LABCLIA [id number] [place] [address] Eosinophils (Bld) [#/Vol] 0.14 10*3/uL Normal <0.46 [facility] Comment on above: Order Comment: Speci men Type: BLOOD SPECIMENOrdering Facility: [facility] Address: [address] [place] [address] Performed By: #### 5 7021-8 ####[facility] LABCLIA [id number] [place] [address] Eosinophils/100 WBC (Bld) 2.9 % Normal [facility] Comment on above: Order Comment: Speci men Type: BLOOD SPECIMENOrdering Facility: [facility] Address: [address] [place] [address] Performed By: #### 5 7021-8 ####[facility] LABIA [id number] [place] [address] Erythrocyte distribution width (RBC) [Ratio] 15.4 % High 11.5-15.0 [facility] Comment on above: Order Comment: Speci men Type: BLOOD SPECIMENOrdering Facility: [facility] Address: [address] [place] [address] Performed By: #### 5 7021-8 ####[facility] LABCLIA [id number] [place] [address] Hematocrit (Bld) [Volume fraction] 38.8 % Normal 36.0-46.0 [facility] Comment on above: Order Comment: Speci men Type: BLOOD SPECIMENOrdering Facility: [facility] Address: [address] [place] [address] Performed By: #### 5 7021-8 ####[facility] LABIA [id number] [place] [address] Hemoglobin (Bld) [Mass/Vol] 12.4 g/dL Normal 11.5-15.5 [facility] Comment on above: Order Comment: Speci men Type: BLOOD SPECIMENOrdering Facility: [facility] Address: [address] [place] [address] Performed By: #### 5 7021-8 ####[facility] LABIA [id number] [place] [address] IMMATURE GRAN % 0.2 % Normal [facility] Comment on above: Order Comment: Speci men Type: BLOOD SPECIMENOrdering Facility: [facility] Address: [address] [place] [address] Performed By: #### 5 7021-8 ####[facility] LABIA [id number] [place] [address] IMMATURE GRAN ABS <0.03 Normal <0.10 [facility] Comment on above: Order Comment: Speci men Type: BLOOD SPECIMENOrdering Facility: [facility] Address: [address] [place] [address] Performed By: #### 5 7021-8 ####[facility] LABIA [id number] [place] [address] Lymphocytes (Bld) [#/Vol] 1.53 10*3/uL Normal 1.00-4.00 [facility] Comment on above: Order Comment: Speci men Type: BLOOD SPECIMENOrdering Facility: [facility] Address: [address] [place] [address] Performed By: #### 5 7021-8 ####[facility] LABCLIA [id number] [place] [address] Lymphocytes/100 WBC (Bld) 31.2 % Normal [facility] Comment on above: Order Comment: Speci men Type: BLOOD SPECIMENOrdering Facility: [facility] Address: [address] [place] [address] Performed By: #### 5 7021-8 ####[facility] LABCLIA [id number] [place] [address] MCH (RBC) [Entitic mass] 27.1 pg Normal 26.0-34.0 [facility] Comment on above: Order Comment: Speci men Type: BLOOD SPECIMENOrdering Facility: [facility] Address: [address] [place] [address] Performed By: #### 5 7021-8 ####[facility] LABCLIA [id number] [place] [address] MCHC (RBC) [Mass/Vol] 32.0 g/dL Normal 30.5-36.0 [facility] Comment on above: Order Comment: Speci men Type: BLOOD SPECIMENOrdering Facility: [facility] Address: [address] [place] [address] Performed By: #### 5 7021-8 ####[facility] LABIA [id number] [place] [address] MCV (RBC) [Entitic vol] 84.7 fL Normal 80.0-100.0 C [facility] Comment on above: Order Comment: Speci men Type: BLOOD SPECIMENOrdering Facility: [facility] Address: [address] [place] [address] Performed By: #### 5 7021-8 ####[facility] LABCLIA [id number] [place] [address] Monocytes (Bld) [#/Vol] 0.49 10*3/uL Normal <0.87 [facility] Comment on above: Order Comment: Speci men Type: BLOOD SPECIMENOrdering Facility: [facility] Address: [address] [place] [address] Performed By: #### 5 7021-8 ####[facility] LABCLIA [id number] [place] [address] Monocytes/100 WBC (Bld) 10.0 % Normal [facility] Comment on above: Order Comment: Speci men Type: BLOOD SPECIMENOrdering Facility: [facility] Address: [address] [place] [address] Performed By: #### 5 7021-8 ####[facility] LABCLIA [id number] [place] [address] Neutrophils (Bld) [#/Vol] 2.70 10*3/uL Normal 1.45-7.50 [facility] Comment on above: Order Comment: Speci men Type: BLOOD SPECIMENOrdering Facility: [facility] Address: [address] [place] [address] Performed By: #### 5 7021-8 ####[facility] LABCLIA [id number] [place] [address] Neutrophils/100 WBC (Bld) 54.9 % Normal [facility] Comment on above: Order Comment: Speci men Type: BLOOD SPECIMENOrdering Facility: [facility] Address: [address] [place] [address] Performed By: #### 5 7021-8 ####[facility] LABCLIA [id number] [place] [address] Nucleated RBC (Bld) [#/Vol] 10*3/uL Normal <0.01 [facility] Comment on above: Order Comment: Speci men Type: BLOOD SPECIMENOrdering Facility: [facility] Address: [address] [place] [address] Performed By: #### 5 7021-8 ####[facility] LABCLIA [id number] [place] [address] Nucleated RBC/100 WBC (Bld) [Ratio] 0.0 /100 WBC Normal [facility] Comment on above: Order Comment: Speci men Type: BLOOD SPECIMENOrdering Facility: [facility] Address: [address] [place] [address] Performed By: #### 5 7021-8 ####[facility] LABCLIA [id number] [place] [address] Platelet mean volume (Bld) [Entitic vol] 9.5 fL Normal 9.0-12.7 [facility] Comment on above: Order Comment: Speci men Type: BLOOD SPECIMENOrdering Facility: [facility] Address: [address] [place] [address] Performed By: #### 5 7021-8 ####[facility] LABCLIA [id number] [place] [address] Platelets (Bld) [#/Vol] 286 10*3/uL Normal 150-400 [facility] Comment on above: Order Comment: Speci men Type: BLOOD SPECIMENOrdering Facility: [facility] Address: [address] [place], [place] [address] Performed By: #### 5 7021-8 ####[facility] LABCLIA [id number] [place] [address] RBC (Bld) [#/Vol] 4.58 10*6/uL Normal 3.90-5.20 [facility] Comment on above: Order Comment: Speci men Type: BLOOD SPECIMENOrdering Facility: [facility] Address: [address] [place], [place] [address] Performed By: #### 5 7021-8 ####[facility] LABCLIA [id number] [place] [address] WBC (Bld) [#/Vol] 4.91 10*3/uL Normal 3.70-11.00 [facility] Comment on above: Order Comment: Speci men Type: BLOOD SPECIMENOrdering Facility: [facility] Address: [facility] [place] [address] Performed By: #### 5 7021-8 ####[facility] LABCLIA [id number] [place] [address] CNOVSPon 06-26-2021 CNOVSP Visit (SP) Office ([facility]AS[facility]) NEEL GARCIA ([id number]) 1980 F Date Time Provider Department 06/26/21 [...] provide more details. She was born in [place] and has lived in [place] in the past. She reports occasional smoking - cigars that are dipped in cognac - last use a month back. Occasional alcohol use. No other substance abuse reported. She lives with her with 5 children. She is not working now but used to work at [employer] (was laid off during ). MEDICATIONS AND [...] which included preparing to see the patient, [id number]-girk patient care, completing clinical documentation, obtaining and/or reviewing separately obtained history, performing a medically appropriate examination, counseling and educating the patient/family/careg iver, ordering medications, tests, or procedures, independently interpreting results (not separately reported) and communicating results to the patient/family/careg iver. CC (more content not included)... Normal [facility] SARS-CoV-2 (COVID-19) RNA JULEE+probe Ql (Unsp spec) Negative Normal Negative [facility] Comment on above: Order Comment: Healt hcare Worker?: N Result Comment: Testing for SARS-CoV-2 by RT-PCR This test was developed and its performance characteristics determined by [employer] and validated at the [facility]. This test has not been FDA cleared [...] is terminated or revoked sooner. PERFORMED BY: [facility] [address] [id number] PATHOLOGIST [employer] DIRECTOR EDIN MONTERROSO M.D. Performed By: #### C OVID 19 [facility] #### [address] COVID-19 Positive/NegativeOr dered By: Bryan Quiros on 06-26-2021 SARS-CoV-2 (COVID-19) N gene JULEE+probe Ql (Resp) Negative Negative [facility] Comment on above: Testing for SARS-CoV -2 by RT-PCR This test was developed and its performance characteristics determined by [employer]) and validated at the [facility]. This test has not been FDA cleared [...] 06-26-2021 Ferritin [Mass/Vol] 34.6 ng/mL Normal 14.7-205.1 [facility] Comment on above: Order Comment: Speci men Type: BLOOD SPECIMENOrdering Facility: [facility] Address: [address] [address] Performed By: #### I KENDRA, FERR ####[facility] LABCLIA [id number] [address] OF [facility] IRON + TIBCon 06-26-2021 Iron [Mass/Vol] 60 ug/dL Normal 41-186 [facility] Comment on above: Order Comment: Speci men Type: BLOOD SPECIMENOrdering Facility: [facility] Address: [address] [place] [address] Performed By: #### I KENDRA, FERR ####[facility] LABIA [id number] [address] Iron binding capacity [Mass/Vol] 398 ug/dL High 232-386 [facility] Comment on above: Order Comment: Speci men Type: BLOOD SPECIMENOrdering Facility: [facility] Address: [address] [place] [address] Performed By: #### Jerrell GARDNER, FERR ####[facility] LABIA [id number] [address] Iron/TIBC [Molar ratio] 15 % Normal 15-57 C [facility] Comment on above: Order Comment: Speci men Type: BLOOD SPECIMENOrdering Facility: [facility] Address: [address] [place] [address] Performed By: #### Jerrell GARDNER, FERR ####[facility] LABIA [id number] [address] [place] M CNPCathie 06-20-2021 CNPN Telephone ([place]) NEEL GARCIA ([id number]) 1980 F Date Time Provider Department 06/20/21 [...] [D50.9] Order(s):CBC + DIFF [SQCBCDIF] Order #: [id number] FUTURE Prescriptions as of 06/22/2021 - ferrous [...] Encounter Status:Closed by LAURIE RUSSELL on 06/22/21 [facility] Telephone ([place]) NEEL GARCIA ([id number]) 1980 F Date Time Provider Department 05/30/21 [...] iron once a day (prescription sent to [facility] pharmacy in [place], [place]) and follow-up in 1 month with repeat labs. She will also need a referral to see a tutor coordinator for scopes. MD Alina Thomas Sec 05/30/2021 12:48 PM Addendum sloane please send records to [facility] I will print facesheet for you Alina Lex Sec 05/30/2021 12:50 PM Signed Patient is already scheduled for month appt Amelie Murray [facility] 05/30/2021 1:22 PM Signed Records faxed to Dr. Quiros. Miriam Raymond [facility] 06/05/2021 11:18 AM Signed Called [facility] and spoke with Karolina. She states they have received patient records and their office will be calling patient soon to schedule. Miriam Raymond [facility] Miriam Raymond [facility] 06/07/2021 3:01 PM Signed Called [facility] spoke with Christiane. She states their service coordinator will be calling patient to schedule. Miriam Raymond [facility] Miriam Raymond [facility] 06/19/2021 10:42 AM Signed Called [facility] spoke with Karolina. She states they have tried to call patient left several messages and are waiting for patient to call their office back. Miriam Raymond [facility] Miriam Raymond [facility] 06/28/2021 1:07 PM Signed Spoke with Christiane from [facility] office. She states patient was scheduled today 06/28 for Colonoscopy and EGD, but they received voicemail from patient she wanted to cancel due to she was not feeling well. Miriam Raymond [facility] Vanna Villar 08/14/2021 2:43 PM Signed [...] deficiency anemia type [D50.9] Order(s):CONSULT TO GASTROENTEROLOGY [7538] Order #: [id number]: 1 FUTURE [] ferrous sulfate 325 mg (65 mg iron) tabletTake 1 tablet by mouth daily with breakfast.Disp: 30 tabletRfl: 2 IRON + TIBC [SQIRON] Order #: [id number] FUTURE FERRITIN BLD [SQFERR] Order #: [id number] FUTURE Prescriptions as of 08/14/2021 - SUMAtriptan [...] Status:Closed by PAOLO WARD on 05/30/21 Normal [facility] APTTon 05-29-2021 aPTT Coag (Bld) [Time] 27.8 s Normal 23.0-32.4 Cl [facility] Comment on above: Result Comment: Unfr [...] laboratory APTT reagent in use throughout the [facility]. Performed By: #### P TT, WSR, TT, FERR, FIBCT, PT, HAPTO, CRP, IRON ####[facility] [place], [place] [phone] C-Reactive Proteinon 022 C-Reactive Protein 0.5 mg/dL Normal <0.9 [facility] Comment on above: Performed By: #### P TT, WSR, TT, FERR, FIBCT, PT, HAPTO, CRP, IRON ####[facility] [address] [place], [place] [phone] CNOVSPon 05-29-2021 CNOVSP Visit (SP) Office ([place]) NEEL GARCIA ([id number]) 1980 F Date Time Provider Department 05/29/21 [...] provide more details. She was born in [place] and has lived in [place] in the past. She reports occasional smoking - cigars that are dipped in cognac - last use a month back. Occasional alcohol use. No other substance abuse reported. She lives with her with 5 children. She is not working now but used to work at [employer] (was laid off during ). MEDICATIONS AND [...] which included preparing to see the patient, [id number] patient care, completing clinical documentation, obtaining and/or reviewing separately obtained history, performing a medically appropriate examination, counseling and educating the patient/family/careg iver, ordering medications, tests, or procedures, independently interpreting results (not separately reported) and communicating results to the patient/family/careg iver. CC: Blade Crews Sr. Referring Provider: BLADE CREWS SR [[id number]] Allergies As of Date: 05/29/2021 (No Known Allergies) Date Reviewed: 05/29/2021 Reviewed by: Laurie Drew - Fully Assessed Reason for Visit: New Patient [172] Cmt: easy bruising Primary Visit Diagnosis:Anemia, unspecified type [D64.9] Other Visit Diagnosis:Easy bruisability [R23.8] Order(s):CBC + DIFF (FOR REMOTE CRITICAL ACCESS [facility]OSPITAL USE) [SQRCBCDF] Order #: [id number] FUTURE COMP METABOLIC PANEL [SQCMP] Order #: [id number] FUTURE SED RATE WESTERGREN [SQWSR] Order #: [id number] FUTURE C-REACTIVE PROTEIN (CRP) [SQCRP] Order #: [id number] FUTURE IRON + TIBC [SQIRON] Order #: [id number] FUTU (more content not included)... Normal [facility] Comp Metabolic Panelon 05-29 Albumin [Mass/Vol] 4.6 g/dL Normal 3.9-4.9 [facility] Comment on above: Performed By: #### P TT, WSR, TT, FERR, FIBCT, PT, HAPTO, CRP, IRON ####[facility] [place], [place] [phone] ALP [Catalytic activity/Vol] 83 U/L Normal 34-123 [facility] Comment on above: Performed By: #### P TT, WSR, TT, FERR, FIBCT, PT, HAPTO, CRP, IRON ####[facility], [place] [phone] ALT [Catalytic activity/Vol] 21 U/L Normal 7-38 [facility] Comment on above: Performed By: #### P TT, WSR, TT, FERR, FIBCT, PT, HAPTO, CRP, IRON ####[place] [address], [place] [phone] Anion gap [Moles/Vol] 11 mmol/L Normal 9-18 [facility] Comment on above: Performed By: #### P TT, WSR, TT, FERR, FIBCT, PT, HAPTO, CRP, IRON ####[address], [place] [phone] AST [Catalytic activity/Vol] 19 U/L Normal 13-35 [facility] Comment on above: Performed By: #### P TT, WSR, TT, FERR, FIBCT, PT, HAPTO, CRP, IRON ####[address], [place] [phone] Bilirubin [Mass/Vol] 0.6 mg/dL Normal 0.2-1.3 [facility] Comment on above: Performed By: #### P TT, WSR, TT, FERR, FIBCT, PT, HAPTO, CRP, IRON ####[place] [address], [place] [phone] Calcium [Mass/Vol] 9.2 mg/dL Normal 8.5-10.2 [facility] Comment on above: Performed By: #### P TT, WSR, TT, FERR, FIBCT, PT, HAPTO, CRP, IRON ####[place] [address], [place] [phone] Chloride [Moles/Vol] 107 mmol/L High 97-105 [facility] Comment on above: Performed By: #### P TT, WSR, TT, FERR, FIBCT, PT, HAPTO, CRP, IRON ####[place] [address], [place] [phone] CO2 [Moles/Vol] 23 mmol/L Normal 22-30 [facility] Comment on above: Performed By: #### P TT, WSR, TT, FERR, FIBCT, PT, HAPTO, CRP, IRON ####[address] [phone] Creatinine [Mass/Vol] 1.00 mg/dL High 0.58-0.96 [facility] Comment on above: Performed By: #### P TT, WSR, TT, FERR, FIBCT, PT, HAPTO, CRP, IRON ####[place] [phone] eGFR- Amer. >60 Normal [facility] Comment on above: Performed By: #### P TT, WSR, TT, FERR, FIBCT, PT, HAPTO, CRP, IRON ####[place] [phone] eGFR-All Other Races >60 Normal [facility] Comment on above: Result Comment: eGFR [...] TT, FERR, FIBCT, PT, HAPTO, CRP, IRON ####[address] [phone] Glucose [Mass/Vol] 85 mg/dL Normal 74-99 [facility] Comment on above: Result Comment: The [place] Diabetes Association (ADA) provides guidance for cutoff [...] Standards of Medical Care in Diabetes 2016, [place] [employer]. Diabetes Care. 2016.39(Suppl 1). Performed By: #### P TT, WSR, TT, FERR, FIBCT, PT, HAPTO, CRP, IRON ####[address] [phone] Potassium [Moles/Vol] 3.3 mmol/L Low 3.7-5.1 [facility] Comment on above: Performed By: #### P TT, WSR, TT, FERR, FIBCT, PT, HAPTO, CRP, IRON ####[address] [phone] Protein [Mass/Vol] 7.6 g/dL Normal 6.3-8.0 [facility] Comment on above: Performed By: #### P TT, WSR, TT, FERR, FIBCT, PT, HAPTO, CRP, IRON ####[address] [phone] Sodium [Moles/Vol] 141 mmol/L Normal 136-144 [facility] Comment on above: Performed By: #### P TT, WSR, TT, FERR, FIBCT, PT, HAPTO, CRP, IRON ####[address] [phone] Urea nitrogen [Mass/Vol] 12 mg/dL Normal 7-21 [facility] Comment on above: Performed By: #### P TT, WSR, TT, FERR, FIBCT, PT, HAPTO, CRP, IRON ####[place] [address], [place] [phone] Ferritinon 05-29-2021 Ferritin [Mass/Vol] 14.6 ng/mL Low 14.7-205.1 [facility] Comment on above: Performed By: #### P TT, WSR, TT, FERR, FIBCT, PT, HAPTO, CRP, IRON ####[place] [address], [place] [phone] Fibrinogenon 05-29-2021 Fibrinogen 338 mg/dL Normal 200-400 [facility] Comment on above: Performed By: #### P TT, WSR, TT, FERR, FIBCT, PT, HAPTO, CRP, IRON ####[place] [address], [place] [phone] Haptoglobinon 05-29-2021 Haptoglobin 161 mg/dL Normal 31-238 [facility] Comment on above: Performed By: #### P TT, WSR, TT, FERR, FIBCT, PT, HAPTO, CRP, IRON ####[place] [address], [place] [phone] Iron and TIBCon 05-29-2021 Iron [Mass/Vol] 53 ug/dL Normal 41-186 [facility] Comment on above: Performed By: #### P TT, WSR, TT, FERR, FIBCT, PT, HAPTO, CRP, IRON ####[place] [address], [place] [phone] TIBC 417 ug/dL High 232-386 [facility] Comment on above: Performed By: #### P TT, WSR, TT, FERR, FIBCT, PT, HAPTO, CRP, IRON ####[place] [address], [place] [phone] Transferrin Saturatn 13 % Low 15-57 [facility] Comment on above: Performed By: #### P TT, WSR, TT, FERR, FIBCT, PT, HAPTO, CRP, IRON ####[address] [phone] Platelet Func Scrnon 022 COL/ADP Cartridge Account Credited Normal <118 C [facility] Comment on above: Result Comment: Test Not Done Notified Dr. Ward at 0940 on 05.30.21 AB Performed By: #### P LTSCP ####[address] [phone] COL/EPI Cartridge Account Credited Normal <194 C [facility] Comment on above: Result Comment: Test Not Done Notified Dr. Ward at 0940 on 05.30.21 AB Performed By: #### P LTSCP ####[address] [phone] Plt Func Scr Interp Account Credited Normal [facility] Comment on above: Performed By: #### P LTSCP ####[address] [phone] Protimeon 05-29-2021 PT INR 1.0 Normal 0.9-1.3 [facility] Comment on above: Result Comment: Kathy min K Antagonist (VKA) Therapeutic Range: INR 2 to 3 (Target INR of 2.5) Note: For patients treated with VKA drugs, such as warfarin, the [place] [employer] 2012 Guideline recommends [...] Chest 2012, 141:7S-47S Srinivasa RA, et al. [facility] 2017, 70: 252-289 Performed By: #### P TT, WSR, TT, FERR, FIBCT, PT, HAPTO, CRP, IRON ####[facility] [place], [place] [phone] PT Sec 10.9 sec Normal 9.7-13.0 [facility] Comment on above: Performed By: #### P TT, WSR, TT, FERR, FIBCT, PT, HAPTO, CRP, IRON ####[facility] [place], [place] [phone] Remote CBCDIF (for CRITICAL ACCESS HOSPITAL use o nly)on 05-29-2021 Abs Baso 0.04 k/uL Normal <0.11 [facility] Abs Peach 0.49 k/uL Normal <0.87 [facility] Abs Neut 1.66 k/uL Normal 1.45-7.50 [facility] Absolute nRBC <0.01 Normal <0.01 [facility] Basophils/100 WBC (Bld) 1.0 % Normal C [facility] DTYPE Auto Diff Normal [facility] Eosinophils (Bld) [#/Vol] 0.19 10*3/uL Normal <0.46 [facility] Eosinophils/100 WBC (Bld) 4.9 % Normal [facility] Erythrocyte distribution width (RBC) [Ratio] 14.6 % Normal 11.5-15.0 [facility] Hematocrit (Bld) [Volume fraction] 36.0 % Normal 36.0-46.0 [facility] Hemoglobin (Bld) [Mass/Vol] 11.5 g/dL Normal 11.5-15.5 [facility] Lymphocytes (Bld) [#/Vol] 1.50 10*3/uL Normal 1.00-4.00 [facility] Lymphocytes/100 WBC (Bld) 38.6 % Normal [facility] MCH 26.5 pG Normal 26.0-34.0 [facility] MCHC (RBC) [Mass/Vol] 31.9 g/dL Normal 30.5-36.0 [facility] MCV (RBC) [Entitic vol] 82.9 fL Normal 80.0-100.0 C [facility] Monocytes/100 WBC (Bld) 12.6 % Normal C [facility] Neutrophils/100 WBC (Bld) 42.9 % Normal [facility] NRBCs 0.0 /100 WBC Normal 0 [facility] Platelet mean volume (Bld) [Entitic vol] 9.2 fL Normal 9.0-12.7 [facility] Platelets (Bld) [#/Vol] 300 10*3/uL Normal 150-400 [facility] RBC (Bld) [#/Vol] 4.34 10*6/uL Normal 3.90-5.20 [facility] WBC (Bld) [#/Vol] 3.89 10*3/uL Normal 3.70-11.00 [facility] Reticulocyteon 05-29-2021 Abs Retic 0.047 M/uL Normal 0.0180-0.1000 [facility] Comment on above: Performed By: #### P TT, WSR, TT, FERR, FIBCT, PT, HAPTO, CRP, IRON ####[facility], [place] [phone] Retic% 1.1 % Normal 0.4-2.0 [facility] Comment on above: Performed By: #### P TT, WSR, TT, FERR, FIBCT, PT, HAPTO, CRP, IRON ####[facility], [place] [phone] Sed Rate Westergrenon 2021 Sed Rate Westergren 22 mm/hr High 0-20 [facility] Comment on above: Performed By: #### P TT, WSR, TT, FERR, FIBCT, PT, HAPTO, CRP, IRON ####[place] [address] [place], [place] [phone] Thrombin Timeon 05-29-2021 Thrombin Time 17.3 sec Normal <18.6 [facility] Comment on above: Performed By: #### P TT, WSR, TT, FERR, FIBCT, PT, HAPTO, CRP, IRON ####[facility] [address] [place], [place] [phone] MRI BRAIN W WO CONTRASTon MRI BRAIN [...] collection present. The proximal portions of the [place] demonstrate normal flow voids. ORBITS: Limited evaluation of the orbits is unremarkable. SINUSES: The paranasal sinuses and mastoid air cells are clear. BONES/SOFT TISSUES: Bone marrow signal intensity is normal. IMPRESSION: Normal MRI of the brain without findings to explain the patient's seizures. Interpreted by: Erasmo Humphries MD Signed by: Erasmo Humphries MD 10/22/19 Final result Normal [facility] Normal MRI of the brain without findings to explain the patient's seizures. [facility] [place], [place] EXAMINATION: MRI OF THE [...] collection present. The proximal portions of the [place] demonstrate normal flow voids. ORBITS: Limited evaluation of the orbits is unremarkable. SINUSES: The paranasal sinuses and mastoid air cells are clear. BONES/SOFT TISSUES: Bone marrow signal intensity is normal. [facility], [place], pn Incoming Radiant Results From [facility] - 10/22/2019 4:01 PM EDT EXAMINATION: MRI OF THE BRAIN WITHOUT AND WITH CONTRAST 10/22/2019 2:33 pm TECHNIQUE: Multiplanar multisequence MRI of the head/brain was performed without and with the administration of intravenous contrast. COMPARISON: None. HISTORY: ORDERING SYSTEM PROVIDED HISTORY: Intractable epilepsy without status epilepticus, unspecified epilepsy type ([facility]) TECHNOLOGIST PROVIDED HISTORY: Is the patient [...] collection present. The proximal portions of the [place] demonstrate normal flow voids. ORBITS: Limited evaluation of the orbits is unremarkable. SINUSES: The paranasal sinuses and mastoid air cells are clear. BONES/SOFT TISSUES: Bone marrow signal intensity is normal. IMPRESSION: Normal MRI of the brain without findings to explain the patient's seizures. [facility] Vital Signs Date Time Vital Sign Value Performing Clinician Facility 10-30-2022 10:33-0400 Blood Pressure Location AMELIE ESPARZA [facility] 10-30-2022 10:33-0400 Diastolic blood pressure 84 mm[Hg] AMELIE ESPARZA [facility] 10-30-2022 10:33-0400 Heart rate 61 /min AMELIE ESPARZA [facility] 10-30-2022 10:33-0400 Respiratory rate 16 /min AMELIE ESPARZA [facility] 10-30-2022 10:33-0400 Systolic blood pressure 126 mm[Hg] AMELIE ESPARAZ [facility] 09-28-2021 13:53-0400 Body height 167.6 cm Paolo Ward MD Work Phone: [facility] 09-28-2021 13:53-0400 Body temperature 97.59 [degF] Paolo Ward MD Work Phone: [facility] 09-28-2021 13:53-0400 Body weight 86.55 kg Paolo Ward MD Work Phone: [facility] 09-28-2021 13:53-0400 Diastolic blood pressure 70 mm[Hg] Paolo Ward MD Work Phone: [facility] 09-28-2021 13:53-0400 Heart rate 65 /min Paolo Ward MD Work Phone: [facility] 09-28-2021 13:53-0400 Respiratory rate 16 /min Paolo Ward MD Work Phone: [facility] 09-28-2021 13:53-0400 SaO2% (BldA) [Mass fraction] 100 % Paolo Ward MD Work Phone: [facility] 09-28-2021 13:53-0400 Systolic blood pressure 116 mm[Hg] Paolo Ward MD Work Phone: [facility] 09-20-2021 08:45-0400 Diastolic blood pressure 68 mm[Hg] DO Blade Crews Work Phone: [facility] 09-20-2021 08:45-0400 Heart rate 68 /min DO Blade Crews Work Phone: [facility] 09-20-2021 08:45-0400 Respiratory rate 18 /min DO Blade Crews Work Phone: [facility] 09-20-2021 08:45-0400 SaO2% (BldA) [Mass fraction] 98 % DO Blade Crews Work Phone: [facility] 09-20-2021 08:45-0400 Systolic blood pressure 105 mm[Hg] DO Blade Crews Work Phone: [facility] 09-20-2021 06:49-0400 Body height 170.18 cm DO Blade Crews Work Phone: [facility] 09-20-2021 06:49-0400 Body mass index (BMI) [Ratio] 28.6 kg/m2 DO Blade Crews Work Phone: [facility] 09-20-2021 06:49-0400 Body temperature 98.5 [degF] DO Blade Crews Work Phone: [facility] 09-20-2021 06:49-0400 Body weight 83 kg DO Blade Crews Work Phone: [facility] 08-14-2021 13:40-0400 Body height 167.6 cm Paolo Ward MD Work Phone: [facility] 08-14-2021 13:40-0400 Body temperature 97.11 [degF] Paolo Ward MD Work Phone: [facility] 08-14-2021 13:40-0400 Body weight 88.72 kg Paolo Ward MD Work Phone: [facility] 08-14-2021 13:40-0400 Diastolic blood pressure 57 mm[Hg] Paolo Ward MD Work Phone: [facility] 08-14-2021 13:40-0400 Heart rate 65 /min Paolo Ward MD Work Phone: [facility] 08-14-2021 13:40-0400 Respiratory rate 16 /min Paolo Ward MD Work Phone: [facility] 08-14-2021 13:40-0400 SaO2% (BldA) [Mass fraction] 92 % Paolo Ward MD Work Phone: [facility] 08-14-2021 13:40-0400 Systolic blood pressure 115 mm[Hg] Paolo Ward MD Work Phone: [facility] 06-27-2021 13:43-0500 Body height 170.18 cm DO Locationary Work Phone: [facility] 06-27-2021 13:43-0500 Body mass index (BMI) [Ratio] 31 kg/m2 DO Locationary Work Phone: [facility] 06-27-2021 13:43-0500 Body weight 89.81 kg DO Locationary Work Phone: [facility] Encounters Encounter Date Encounter Type Care Provider Facility Start: 08-27-2023 End: 08-27-2023 ambulatory RICO CABELLO Not Available Start: 01-08-2023 End: 01-09-2023 ambulatory AMELIE ESPARZA Facility:[facility] Start: 01-08-2023 End: 01-08-2023 Patient encounter procedure AMELIE ESPARZA [facility] Start: 11-13-2022 End: 11-14-2022 ambulatory Constantino MARTINEZ Facility:CD:[id number] Start: 10-30-2022 End: 10-31-2022 ambulatory AMELIE ESPARZA Facility:[facility] Start: 10-30-2022 End: 10-30-2022 Patient encounter procedure AMELIE ESPARZA [facility] Start: 05-30-2022 End: 05-30-[address] INGRID DE LOS SANTOS Facility:[facility] Start: 05-30-2022 End: 05-31-[address] INGRID DE [place]ANTOS Facility:[facility] Start: 05-27-2022 End: 05-27-[address] BLADE CREWS Facility:[facility] Start: 05-10-2022 End: 05-11-[address] BLADE CREWS Facility:[facility] Start: 02-26-2022 End: 02-27-[address] BLADE CREWS Facility:[facility] Start: 02-26-2022 Encounter for preprocedural laboratory examination DR INGRID DE LOS SANTOS [facility] Start: 02-25-2022 End: 02-25-[address] BLADE CREWS Facility:[facility] Start: 02-16-2022 Encounter for preprocedural laboratory examination DR INGRID DE LOS SANTOS [facility] Start: 02-15-2022 End: 02-16-2022 ambulatory Constantino MARTINEZ Facility:CD:[id number] Start: 02-15-2022 End: 02-19-2022 Evaluation and management of inpatient DR INGRID DE LOS SANTOS Facility:[facility] Start: 02-12-2022 End: 02-13-[address] INGRID DE LOS SANTOS Facility:[facility] Start: 02-12-2022 End: 02-13-2022 Encounter for preprocedural laboratory examination DR INGRID DE LOS SANTOS Facility:[facility] Start: 02-07-2022 ambulatory AMELIE ESPARZA Facility :[facility] Start: 01-30-2022 Encounter for other preprocedural examination DR INGRID DE LOS SANTOS [facility] Start: 01-29-2022 End: 01-30-[address] INGRID [...] to same day surgery center DO Blade Crwes Work Phone: [facility] Start: 09-15-2021 End: 09-15-2021 Patient encounter procedure DO Blade Crews Work Phone: [facility] Start: 08-14-2021 End: 08-14-2021 ambulatory Paolo Ward MD Work Phone: Hematology/Oncology Comment on above: Iron deficiency anem ia, unspecified iron deficiency anemia type (Primary Dx) Start: 08-14-2021 End: 08-14-2021 Patient encounter procedure Paolo Ward MD Work Phone: [facility] Start: 06-28-2021 End: 06-28-2021 Departed Referred DO Blade Crews Work Phone: [facility] Start: 06-26-2021 End: 06-26-2021 Patient encounter procedure DO Blade Eleonora Work Phone: [facility] Start: 05-24-2021 Chart abstracting Paolo guevara MD Work Phone: Hematology/Oncology Start: 10-22-2019 End: 10-25-2019 Patient encounter procedure ALEX Harris ANAYAyan [facility] Start: 10-22-2019 End: 10-24-2019 Subsequent hospital visit by physician Page Mri Rm [facility] MRI Comment on above: Intractable epilepsy [...] 09-28-2022 Adult depression screening assessment DEPRESSION SCREENING [facility] Start: 06-26-2022 Adult depression screening assessment DEPRESSION SCREENING [facility] Start: 12-21-2021 Influenza vaccination [facility] Start: 09-28-2021 End: 11-28-2021 CBC W Auto Differential panel - Blood CBC + DIFF Lab Routine Iron deficiency anemia, unspecified iron deficiency anemia type Expected: 09/28/2021, Expires: 11/28/2021 [facility] Work Phone: Comment on above: Expected: 09/28/2021, Expires: 2 Start: 09-28-2021 End: 11-28-2021 FERRITIN BLD FERRITIN BLD Lab Routine Iron deficiency anemia, unspecified iron deficiency anemia type Expected: 09/28/2021, Expires: 11/28/2021 [facility] Work Phone: Comment on above: Expected: 09/28/2021, Expires: 2 Start: 09-28-2021 End: 11-28-2021 IRON + TIBC IRON + TIBC Lab Routine Iron deficiency anemia, unspecified iron deficiency anemia type Expected: 09/28/2021, Expires: 11/28/2021 [facility] Work Phone: Comment on above: Expected: 09/28/2021, Expires: 2 Start: 08-14-2021 End: 10-14-2021 CBC W Auto Differential panel - Blood CBC + DIFF Lab Routine Iron deficiency anemia, unspecified iron deficiency anemia type Expected: 08/14/2021, Expires: 10/14/2021 [facility] Work Phone: Comment on above: Expected: 08/14/2021, Expires: 2 Start: 08-14-2021 End: 10-14-2021 FERRITIN BLD FERRITIN BLD Lab Routine Iron deficiency anemia, unspecified iron deficiency anemia type Expected: 08/14/2021, Expires: 10/14/2021 [facility] Work Phone: Comment on above: Expected: 08/14/2021, Expires: 2 Start: 08-14-2021 End: 10-14-2021 IRON + TIBC IRON + TIBC Lab Routine Iron deficiency anemia, unspecified iron deficiency anemia type Expected: 08/14/2021, Expires: 10/14/2021 [facility] Work Phone: Comment on above: Expected: 08/14/2021, Expires: 2 Start: 08-14-2021 End: 10-14-2021 RETIC COUNT RETIC COUNT Lab Routine Iron deficiency anemia, unspecified iron deficiency anemia type Expected: 08/14/2021, Expires: 10/14/2021 [facility] Work Phone: Comment on above: Expected: 08/14/2021, Expires: 2 Start: 06-28-2021 Esophagogastroduodenoscopy DH EGD/Colonoscopy (Not Applicable) [facility] Start: 12-21-2020 Influenza vaccination INFLUENZA (#1) [facility] Start: 12-22-2019 Influenza vaccination Flu vaccine (#1) [place], [place] Start: 2018 Lipid panel Lipid screen [place], [place] Start: 2018 Mammography MAMMOGRAM [facility] Start: 2008 HPV TESTING HPV TESTING [facility] Start: 1999 PAP TESTING PAP TESTING [facility] Start: 1999 Screening for malignant neoplasm of cervix Cervical cancer screen [place], [place] Start: 1997 DTaP/Tdap/Td vaccine (1 - Tdap) DTaP/Tdap/Td vaccine (1 - Tdap) [place], [place] Start: 1997 Urine microalbumin profile DTAP,TDAP,TD (1 - Tdap) [facility] Start: 1996 HEPATITIS C SCREENING HEPATITIS C SCREENING [facility] Start: 1996 HIV SCREENING HIV SCREENING [facility] Start: 1993 HIV screening HIV screen [place], [place] Start: 1990 Adult depression screening assessment DEPRESSION SCREENING [facility] Start: 1983 COVID-19 VACCINE (#1) COVID-19 VACCINE (#1) [facility] Start: 1983 COVID-19 VACCINE (1) COVID-19 VACCINE (1) [facility] Start: 1978 COVID-19 VACCINE (#1) COVID-19 VACCINE (#1) [facility] Ferritin [Mass/volum e] in Serum or Plasma FERRITIN BLD Lab Routine Iron deficiency anemia, unspecified iron deficiency anemia type 10/06/2021 1:31 PM EDT [facility] Work Phone: Iron and Iron bindin g capacity panel - Serum or Plasma IRON + TIBC Lab Routine Iron deficiency anemia, unspecified iron deficiency anemia type 10/06/2021 1:31 PM EDT [facility] Work Phone: [facility] Immunizations Immunization Date Immunization Notes Care Provider [facility] 02-16-2019 influenza, injectabl e, quadrivalent, preservative free Paolo Ward MD Work Phone: [facility] 12-31-2017 influenza, injectabl e, quadrivalent, preservative free Paolo Ward MD Work Phone: [facility] Payers Date Payer Category Payer Unknown [facility] xxxxxxxxxxxx 2014-Present [phone] [address] [place] [address] xxxxxxxxxxxx [id number] 2002 Medicaid [employer] [employer] [employer] [id number] 2002-Present [phone] [address] [place] [address] Medicaid [id number] 1978 Unknown [id number] [id number]5 1978 Unknown [id number] 2.16.840.1.019658.3.579.2.593 1978 Unknown [id number] 2.16.840.1.268201.3.579.2.593 1978 Unknown [id number] 2.16.840.1.134594.3.579.2.593 1978 Unknown [id number] 2.16.840.1.934553.3.579.2.593 1978 Unknown [id number] 2.16.840.1.837702.3.579.2.593 1978 Unknown [id number] 2.16.840.1.587226.3.579.2.593 1978 Unknown [id number] 2.16.840.1.267808.3.579.2.593 1978 Unknown [id number] 2.16.840.1.343334.3.579.2.593 1978 Unknown [id number] 2.16.840.1.348976.3.579.2.593 1978 Unknown [id number] 2.16.840.1.747826.3.579.2.593 1978 Unknown [id number] 2.16.840.1.373367.3.579.2.593 1978 Unknown [id number] 2.16.840.1.102457.3.579.2.593 1978 Unknown [id number] 2.16.840.1.968327.3.579.2.593 1978 Unknown [id number] 2.16.840.1.585008.3.579.2.593 1978 Unknown [id number] 2.16.840.1.495746.3.579.2.593 1978 Unknown [id number] 2.16.840.1.382993.3.579.2.727 1978 Unknown [id number] 2.16.840.1.153730.3.579.2.727 1978 Unknown [id number] 2.16.840.1.602043.3.579.2.727 1978 Unknown [id number] 2.16.840.1.129912.3.579.2.727 1978 Unknown [id number] 2.16.840.1.845665.3.579.2.125 9 1959 Unknown [id number] Self-pay Self Pay [id number] Social History Date Type Detail Facility Tobacco smoking status MEIS Unknown if [facility] Start: 1980 Sex Assigned At Not on file [place], [place] Tobacco smoking status MEIS Tobacco smoking consumption unknown [facility] Start: 05-29-2021 Tobacco smoking status MEIS Occasional tobacco smoker [facility] Start: 05-29-2021 End: 09-28-2021 Tobacco use and exposure Smokeless tobacco non-user [facility] Start: 08-14-2021 End: 11-10-2021 Alcohol intake Current drinker of alcohol (finding) [facility] Start: 08-14-2021 End: 11-10-2021 Alcohol intake [facility] Start: 05-29-2021 History SDOH Alcohol Comment socially [facility] Start: 08-04-2021 End: 11-10-2021 Exposure to SARS-CoV-2 (event) Not sure [facility] Start: 1980 Sex Assigned At Female [facility] Start: 09-28-2021 End: 01-08-2023 Tobacco smoking status NHIS Ex-smoker [facility] Sex Assigned At Female [facility] Goals Date Patient Goal Desired Activity /State Functional Status Date Assessment Result Facility 09-19-2023 Functional Status N/A [facility] 10-30-2022 Functional Status N/A [facility] Clinical Notes 05-29-2021 to 01-08-2023 Telephone Encounter - Jian De La Cruz RN - 11/14/2021 3:15 PM EDTTelephone Encounter - Jian De La Cruz RN - 11/14/2021 3:15 PM EDTTelephone Encounter - Vika Pittman [facility] - 10/06/2021 1:13 PM EDT Note Date [...] provider. Document Revised: 08/17/2021 Document Reviewed: 08/17/2021 [employer] Patient Education 2022 [employer]. Follow Up Care 10/30/2022 11:37:59 With:FRED DUNCAN, AMELIE Ch, URL Address: [address] [place] [address] When: Unknown Comments:PRN [facility] 10-30-[address] 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 Measure Post Void residual urine and/or bladder capacity by US- non-imaging 85352 Follow-up With When Contact Information AMELIE ESPARZA PA-C, URL In 8 weeks [address] [place] [address] Additional Instructions: after Cysto w/ Dr. Martinez Patient Education Cystoscopy Documentation recorded by the scribisis Estrada accurately reflects the services(s) I performed and decisions made by me. Authentic (more content not included)... [facility] Comment on above: Result Comment: Elec tronically Signed By: AMELIE ESPARZA PA-C\.br\Date and Time Signed: 10/30/22 12:34 EDT\.br\Electronically Co-Signed By: Lamar Estrada.br\Date and Time Co-Signed: 10/30/22 11:29 EDT 10-30-2022 [facility] Discharg e instructions Patient Education 10/30/2022 11:19:09 [...] including vitamins, herbs, eye drops, creams, and gjpz-pbw-hbqxeon medicines. Any problems you or family members [...] provider tells you to take them. Taking kale-eru-vgduvda medicines, vitamins, herbs, and supplements. Tests You [...] Follow these instructions at home: Medicines Take fnpe-pcu-vxvnodj and prescription medicines only as told by [...] provider. Document Revised: 12/20/2021 Document Reviewed: 11/18/2020 [employer] Patient Education 2022 [employer]. Follow Up Care 08/31/2022 13:02:06 With:FRED DUNCAN, AMELIE Ch, URL Address: [facility] [address] [facility] [place] [address] When:Within 8 Week(s) Comments:after Cysto w/ Dr. Martinez [facility] 10-30-2022 Note Urology Cystoscopy Cystoscopy is [...] including vitamins, herbs, eye drops, creams, and etby-ccr-outknee medicines. ? Any problems you or family [...] tells you to take them. ? Taking btdg-yxn-sxtcnee medicines, vitamins, herbs, and supplements. Tests You [...] these instructions at home: Medicines ? Take ufhm-ecr-swbtnpc and prescription medicines only as told by [...] department th (more content not included)... [facility] 11-14-2021 Miscellaneous Notes Informed pt of Dr Ward's message. Pt verbalized understanding and denies further needs at this time. Jian De La Cruz RN ----- Message from Alina Barros RN sent at 11/13/2021 1:26 PM EDT ----- ----- Message ----- From: Paolo Ward MD Sent: 11/11/2021 6:10 AM EDT To: Alina Barros RN Fl Tiff. Can you please call pt and let her know that the iron profile is normal? No change in the recommendation. Thanks, SJK documented in this encounter [facility] 11-10-2021 Note HNO ID: [id number] Author: Paolo Ward MD Service: ? Author [...] provide more details. She was born in [place] and has lived in [place] in the past. She reports occasional smoking - cigars that are dipped in cognac - last use a month back. Occasional alcohol use. No other substance abuse reported. She lives with her with 5 children. She is not working now but used to work at [employer] (was laid off during ). MEDICATIONS AND [...] us in 6-8 weeks for repeat labs. Poalo Ward MD I spent a total of 25 minutes on the date of the service which included preparing to see the patient, mhng-io-vfnn patient care, completing clinical documentation, obtaining and/or reviewing separately obtained history, performing a medically appropriate examination, counseling and educating the patient/family/caregiver, ordering medications, tests, or procedures, independently interpreting results (not separately reported) and communicating results to the patient/family/caregiver. CC: Blade Crews Sr. [facility] 10-06-2021 Miscellaneous Notes 1st report of treatment-Non oncology regimen (Monoferric) Patient has [place] Medicaid therefore no FA is required documented in this encounter [facility] 09-29-2021 Miscellaneous Notes Patient has been [...] Paolo Ward MD documented in this encounter [facility] 09-28-2021 Note HNO ID: [id number] Author: Paolo Ward MD Service: ? Author [...] provide more details. She was born in [place] and has lived in [place] in the past. She reports occasional smoking - cigars that are dipped in cognac - last use a month back. Occasional alcohol use. No other substance abuse reported. She lives with her with 5 children. She is not working now but used to work at [employer] (was laid off during -). MEDICATIONS AND [...] which included preparing to see the patient, pjxx-zc-cwqd patient care, completing clinical documentation, obtaining and/or reviewing separately obtained history, performing a medically appropriate examination, counseling and educating the patient/family/caregiver, ordering medications, tests, or procedures, independently interpreting results (not separately reported) and communicating results to the patient/family/caregiver. CC: Blade Crew[facility] 09-28-2021 History of Presen t illness [...] provide more details. She was born in [place] and has lived in [place] in the past. She reports occasional smoking - cigars that are dipped in cognac - last use a month back. Occasional alcohol use. No other substance abuse reported. She lives with her with 5 children. She is not working now but used to work at [employer] (was laid off during ). MEDICATIONS AND [...] which included preparing to see the patient, kccn-kv-ijse patient care, completing clinical documentation, obtaining and/or reviewing separately obtained history, performing a medically appropriate examination, counseling and educating the patient/family/caregiver, ordering medications, tests, or procedures, independently interpreting results (not separately reported) and communicating results to the patient/family/caregiver. CC: Blade Crews Sr. documented in this encounter [facility] 09-20-2021 Procedure note [facility] 08-14-2021 Note HNO ID: [id number] Author: Paolo Ward MD Service: ? Author [...] provide more details. She was born in [place] and has lived in [place] in the past. She reports occasional smoking - cigars that are dipped in cognac - last use a month back. Occasional alcohol use. No other substance abuse reported. She lives with her with 5 children. She is not working now but used to work at [employer] (was laid off during COVID-19). MEDICATIONS AND [...] which included preparing to see the patient, tvni-lj-lwwf patient care, completing clinical documentation, obtaining and/or reviewing separately obtained history, performing a medically appropriate examination, counseling and educating the patient/family/caregiver, ordering medications, tests, or procedures, independently interpreting results (not separately reported) and communicating results to the patient/family/caregiver. CC: Blade Crew[facility] 08-14-2021 History of Presen t illness [...] provide more details. She was born in [place] and has lived in [place] in the past. She reports occasional smoking - cigars that are dipped in cognac - last use a month back. Occasional alcohol use. No other substance abuse reported. She lives with her with 5 children. She is not working now but used to work at [employer] (was laid off during COVID-19). MEDICATIONS AND [...] which included preparing to see the patient, zhtu-py-ebyv patient care, completing clinical documentation, obtaining and/or reviewing separately obtained history, performing a medically appropriate examination, counseling and educating the patient/family/caregiver, ordering medications, tests, or procedures, independently interpreting results (not separately reported) and communicating results to the patient/family/caregiver. CC: Blade Crews Sr. documented in this encounter [facility] 06-26-2021 Note HNO ID: [id number] Author: Paolo Ward MD Service: ? Author [...] provide more details. She was born in [place] and has lived in [place] in the past. She reports occasional smoking - cigars that are dipped in cognac - last use a month back. Occasional alcohol use. No other substance abuse reported. She lives with her with 5 children. She is not working now but used to work at [employer] (was laid off during ). MEDICATIONS AND [...] which included preparing to see the patient, wgqb-ck-nhst patient care, completing clinical documentation, obtaining and/or reviewing separately obtained history, performing a medically appropriate examination, counseling and educating the patient/family/caregiver, ordering medications, tests, or procedures, independently interpreting results (not separately reported) and communicating results to the patient/family/caregiver. CC: Blade Crews Sr[facility] 05-29-2021 Note HNO ID: [id number] Author: Paolo Ward MD Service: ? Author [...] provide more details. She was born in [place] and has lived in [place] in the past. She reports occasional smoking - cigars that are dipped in cognac - last use a month back. Occasional alcohol use. No other substance abuse reported. She lives with her with 5 children. She is not working now but used to work at [employer] (was laid off during -). MEDICATIONS AND [...] which included preparing to see the patient, abxs-gk-dlai patient care, completing clinical documentation, obtaining and/or reviewing separately obtained history, performing a medically appropriate examination, counseling and educating the patient/family/caregiver, ordering medications, tests, or procedures, independently interpreting results (not separately reported) and communicating results to the patient/family/caregiver. CC: Blade Crews [facility] Evaluation + Plan note Future Appointments Appointment Date:01/08/2023 03:00:00 PM Scheduled Provider:AMELIE ESPARZA PA-C Location:[facility] Appointment Type:URO Office Visit [facility] Evaluation note Diagnosis Iron deficiency anemia, unspecified iron deficiency anemia type- Primary [facility] Work Phone: Evaluation note* Diagnosis Iron deficiency anemia, unspecified iron deficiency anemia type- Primary Easy bruisability Other symptoms involving skin and integumentary tissues [facility]* Diagnosis Iron deficiency anemia, unspecified iron deficiency anemia type documented in this encounter [facility]* Diagnosis Onset Date Resolution Status Iron deficiency anemia acute [facility] Work Phone: Evaluation note* Diagnosis Iron deficiency anemia, unspecified iron deficiency anemia type- Primary documented in this encounter [facility] Author Bryan Quiros [facility] September 20, 2021 7:58am Note Date/Time September 20, 2021 7:54a m [facility] [address] [place] [address] Gastroenterology H&P Signed Patient: Neel Garcia MR#: [id number] : 1980 Acct:[id number] Age/Sex: 41 / F Adm Date: 2 Loc: Room: Type: [facility] Attending Dr: Bryan Quiros DO Copies [...] by Bryan Quiros Jr, DO> 09/20/21 0758 [facility] Work Phone: Hospital course Narrative No data available for this section [facility] progress note No data available for this section [facility] Reason for Referral Status Reason Specialty Diagnoses / Procedures Referre d By Contact Referred To Contact [facility]iology Diagnoses Intractable epilepsy without status epilepticus, unspecified epilepsy type (HCC) Procedures MRI BRAIN W WO CONTRAST Alex Little MD [address] [place] [address] Assessments Diagnosis Intractable epilepsy without status epilepticus, unspecified epilepsy type (HCC) Advance Directives No Advanced Directives Records FoundDocuments on File Type Date Recorded 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 [facility] [facility] [address] [place] [address] [facility] [address] [place] [address] Reason Comments Anemia 1 month follow up Reason Comments Anemia Reason Comments Results Reason Comments Benefits Investigation Specialty Diagnoses / Procedures Referred By Contac t Referred To Contact Diagnoses Iron deficiency anemia, unspecified iron deficiency anemia type Procedures INJECTION, FERRIC DERISOMALTOSE, 10 MG Paolo Ward MD [address] [place] [address] [place] [address] [facility] [address] [place] [address] Referral ID Status Reason Start Date Expiration Date V isits Requested Visits Authorized [id number] Authorized 09/29/2021 01/02/2022 1 1 INFORMATION SOURCE (unrecogn ized section and content) DATE CREATED AUTHOR 11/12/2019 [facility] DATE CREATED AUTHOR AUTHOR'S ORGANIZ ATION 09/24/2021 [facility] DATE CREATED AUTHOR AUTHOR'S ORGANIZ ATION 11/16/2021 [facility] DATE CREATED AUTHOR AUTHOR'S ORGANIZ ATION 06/05/2022 [facility] DATE CREATED AUTHOR AUTHOR'S ORGANIZ ATION 01/09/2023 Shrestha Foster [facility] DATE CREATED AUTHOR AUTHOR'S ORGANIZ ATION 08/28/2023 [facility] EPIC Source Comments (unrecognize d section and content) In the event this informatio n is protected by the Federal Confidentiality of Alcohol and Drug Abuse Patient Records regulations: The Federal rules restrict any use of the information to criminally investigate or prosecute any alcohol or drug abuse patient.[facility] the event this information is protected by the Federal Confidentiality of Alcohol and Drug Abuse Patient Records regulations: The Federal rules restrict any use of the information to criminally investigate or prosecute any alcohol or drug abuse patient.[facility] Hospital[facility] the event this information is protected by the Federal Confidentiality of Alcohol and Drug Abuse Patient Records regulations: The Federal rules restrict any use of the information to criminally investigate or prosecute any alcohol or drug abuse patient.[facility] HospitalIn the event this information is protected by the Federal Confidentiality of Alcohol and Drug Abuse Patient Records regulations: The Federal rules restrict any use of the information to criminally investigate or prosecute any alcohol or drug abuse patient.[facility] Hospital[facility] the event this information is protected by the Federal Confidentiality of Alcohol and Drug Abuse Patient Records regulations: The Federal rules restrict any use of the information to criminally investigate or prosecute any alcohol or drug abuse patient.[facility] Hospital[facility] the event this information is protected by the Federal Confidentiality of Alcohol and Drug Abuse Patient Records regulations: The Federal rules restrict any use of the information to criminally investigate or prosecute any alcohol or drug abuse patient.[facility] Hospital[facility] the event this information is protected by the Federal Confidentiality of Alcohol and Drug Abuse Patient Records regulations: The Federal rules restrict any use of the information to criminally investigate or prosecute any alcohol or drug abuse patient.[facility] Teams (unrecognized sec tion and content) Motor Overhauler Relationship Specialty Start Date End Date Isiah Evangelista [address] [place] [address] Referring RECREATIONAL VEHICLE RESORT MANAGER 07/29/18 Motor Overhauler Relationship Specialty Start Date End Date Blade Crews Sr. [address] [facility] [address] PCP - General Family Practice 05/29/21 Isiah Evangelista [address] [place] [address] Referring RECREATIONAL VEHICLE RESORT MANAGER 07/29/18 Team Status: Inactive Member Role Status Dates Blade Crews DO Primary Care Provider Active Bryan Quiros DO Attending Provider Active Team Status: Active Member Role Status Dates Blade Crews DO Primary Care Provider Active Motor Overhauler Relationship Specialty Start Date End Date Blade Crews Sr. [address] [facility] [place] [address] PCP - General Family Practice 05/29/21 Isiah Evangelista [address] [place] [address] Referring RECREATIONAL VEHICLE RESORT MANAGER 07/29/18 Motor Overhauler Relationship Specialty Start Date End Date Blade Crews Sr. [address] [facility] [place] [place] [address] PCP - General Family Practice 05/29/21 Isiah Evangelista [address] [place] [address] Referring RECREATIONAL VEHICLE RESORT MANAGER 07/29/18 Motor Overhauler Relationship Specialty Start Date End Date Blade Crews Sr. [address] [facility] [place] [address] PCP - General Family Practice 05/29/21 Isiah Evangelista[address] [place] [phone] Referring RECREATIONAL VEHICLE RESORT MANAGER 07/29/18 Motor Overhauler Relationship Specialty Start Date End Date Blade Crews Sr. [address] [facility] [address] PCP - General Family Practice 05/29/21 Isiah Evangelista[address] [place] [phone] Referring RECREATIONAL VEHICLE RESORT MANAGER 07/29/18 Goals (unrecognized section and content) Goals [...] BE BASED ON THE PRIMARY CLINICAL RECORDS. [employer] [facility]. provides no warranty or guarantee of the accuracy or completeness of information in this document.
[2023-10-03 22:07] VITALS: BP 113/78; PULSE 68; TEMP 36.3; O2SAT 98; BMI 28.3
--- NOTE | 2023-10-03 22:53 | CT_ITS ---
The [address] [address] Patient Name: NEEL SAMSON MRN: [id number] date: 1980 Sex: F Assigned Patient Location: ER Current Patient Location: Accession/Order Number: [id number] Exam Date: 10/03/2023 23:59 Report Date: 10/04/2023 01:22 At the request of: OMARI TAYLOR Procedure: CT soft tissue neck w con EXAM: CT soft tissue neck w con HISTORY: FB airway COMPARISON: None. TECHNIQUE: IV contrast-enhanced CT imaging of the neck. This CT exam was performed using one or more of the following dose reduction techniques: Automated exposure control, adjustment of the mA and/or KV according to patient size, or use of iterative reconstruction technique. Unless otherwise stated, incidental findings do not require dedicated follow-up imaging. FINDINGS: The skull base is intact. The paranasal sinuses and mastoid air cells are clear. The nasopharynx, oropharynx, hypopharynx, larynx, and trachea are patent and symmetric. The airway is patent. There is no radiopaque foreign body. The parotid and submandibular glands are symmetric. The thyroid enhances homogeneously. The lung apices are clear. The bones are intact without acute abnormality. CT/CT soft tissue neck w con IMPRESSION: No acute abnormality of the neck. Electronically authenticated by: BERNIE HENDRIX Date: 10/04/2023 01:22
--- NOTE | 2023-10-03 22:54 | ED_ITS ---
HPI - URI/Sore Throat General Chief Complaint: Upper Respiratory Infection Stated Complaint: Dysphagia Time Seen by Provider: 10/03/23 22:40 Source: patient Source comment: patient Limitations: no limitations History of Present Illness HPI Narrative: states she was eating Doritos chips and felt like one got stuck in her throat. Now has pain when she swallows. Was able to drink water and juice at home as well as swallow bread. she is not short of breath or chocking or has need to cough. ` Related Data Home Medications ?Medication ?Instructions ?Recorded ?Confirmed escitalopram oxalate 10 mg tablet mg 09/21/23 hyoscyamine sulfate 0.375 mg mg PO 09/21/23 tablet,extended release,12 hr meloxicam 15 mg tablet mg 09/21/23 gabapentin 100 mg capsule mg 10/03/23 methocarbamol 500 mg tablet 500 mg PO TID 10/03/23 10/03/23 Previous Rx's ?Medication ?Instructions ?Recorded prednisone 20 mg tablet 40 mg (2 x 20 mg) PO DAILY 5 days 09/21/23 #10 tabs tizanidine 4 mg capsule 4 mg PO TID PRN muscle spasticity 09/21/23 7 days #21 caps Allergies Allergy/AdvReac Type Severity Reaction Status Date / Time No Known Drug Allergies Allergy Verified 11/23/22 17:02 Review of Systems ROS Status of ROS 10 or more systems reviewed and unremark able except as noted in history and below [facility] Social History Smoking status: Former smoker Exam Constitutional Vital Signs, click to edit/add: Last Vital Signs Temp 97.3 F L 10/03/23 22:07 Pulse 68 10/03/23 22:07 Resp 20 10/03/23 22:07 BP 113/78 10/03/23 22:07 Pulse Ox 98 10/03/23 22:07 O2 Del Method Room Air 10/03/23 22:07 Common normals: no apparent distress, average body habitus, oriented x3, no limitations, healthy appearing, alert and well nourished [facility] Common normals: normocephalic and head/scalp atraumatic Other: oral pharynx is normal Eye Common normals: EOMs intact bilaterally and conjunctivae normal Respiratory Common normals: normal respiratory effort and no retractions Cardio Common normals: regular rate, regular rhythm, S1 normal heart sound and S2 normal heart sound Extremity Common normals: normal to inspection and full ROM Neuro Common normals: oriented x3, CN's II-XII intact bilaterally, moves all extremities and no focal motor deficits Psych Appearance: grossly normal Course Vital Signs Vital signs: Vital Signs Temperature 97.3 F L 10/03/23 22:07 Pulse Rate 68 10/03/23 22:07 Respiratory Rate 20 10/03/23 22:07 Blood Pressure 113/78 10/03/23 22:07 Pulse Oximetry 98 10/03/23 22:07 Oxygen Delivery Method Room Air 10/03/23 22:07 Temperature 97.3 F L 10/03/23 22:07 Pulse Rate 68 10/03/23 22:07 Respiratory Rate 20 10/03/23 22:07 Blood Pressure 113/78 10/03/23 22:07 Pulse Oximetry 98 10/03/23 22:07 Oxygen Delivery Method Room Air 10/03/23 22:07 MDM - URI/Sore Throat MDM Narrative Medical decision making narrative: patient presents concerned she had FB stuck in her throat. Thought a hard chip somehow got stuck. Able to drink fluid and eat bread afterwards but states it would hurt when swallowing. No choking or coughing. Oral pharynx clear. Treated with IV solumedrol for possible underling inflammation from a scratch from the chip. CT of the airway neg. The discomfort improved while here in the department and patient discharged home Imaging Data Chest x-ray: Radiologist's impression: ITS Impressions Soft Tissue Neck CT 10/03/23 22:53 IMPRESSION: No acute abnormality of the neck. Electronically authenticated by: BERNIE HENDRIX Date: 10/04/2023 01:22 Discharge Plan Discharge Stand Alone Forms: Portal Instructions Chief Complaint: Upper Respiratory Infection Clinical Impression: Odynophagia Patient Disposition: Home, Self-Care Prescriptions / Home Meds: No Action meloxicam 15 mg tablet hyoscyamine sulfate 0.375 mg tablet extended release 12 hr PO escitalopram oxalate 10 mg tablet tizanidine 4 mg capsule 4 mg PO TID PRN (Reason: muscle spasticity) 7 Days Qty: 21 0RF prednisone 20 mg tablet 40 mg PO DAILY 5 Days Qty: 10 0RF methocarbamol 500 mg tablet 500 mg PO TID gabapentin 100 mg capsule Print Language: Kazakh Instructions: Dysphagia (ED) Additional Instructions: follow up with your doctor for recheck Referrals: YULIANA CREWS [Primary Care Provider] - 1 week
--- NOTE | 2023-10-03 22:55 | PC.NURSE ---
Patient was eating doritos and feels like it is stuck in throat. Respirations even and non labored. Lungs clear throughout.
[2023-10-03] MEDS: METHYLPREDNISOLONE SOD SUCC PF 125 MG/2 ML VIAL IVP (23:13)
== END 2023-10-04 02:04 | disposition home or self-care (01) ==
PROVIDERS: Emergency Provider Internal Medicine; PCP Family Medicine
DX: R13.10 Dysphagia, unspecified (principal); Z87.891 Personal history of nicotine dependence
CPT/HCPCS: 70491; 96374; 99284; J2919; Q9967

== ENCOUNTER 2023-10-11 06:35 | Outpatient (OUT) | payer OTHER, SELFPAY ==
--- OUTSIDE RECORDS SUMMARY | 2023-10-11 06:38 | XMS_ITS | CCD ---
Author Organization [facility] Care Team Providers Care Poured Pipe Maker Name Role Phone House, Sr Blade Soriano Primary Care Provider ALEX LITTLE Referring Unavailable GRAND JUNCTION, SR BLADE Soriano Primary Care Unavailable Isiah Evangelista Unavailable Hugoton Blade Ballesteros Primary Care Provider DO Blade Crews Primary Care Provider [phone] DO Bryan Quiros Attending Provider ELEONORA, DR BRIDGES Primary Care Unavailable KARASIK, DR QUINTERO Admitting Unavailable KARASIK, DR QUINTERO Attending Unavailable KARASIK, DR QUINTERO Admitting Unavailable KARASIK, DR QUINTERO Consulting Unavailable ELEONORA, DR BRIDGES Primary Care Unavailable KARASIK, [...] Admitting Unavailable KARASIK, DR QUINTERO Consulting Unavailable ELEONORA, DR BRIDGES Primary Care Unavailable KARASIK, DR QUINTERO Attending Unavailable HOUSE, DR BRIDGES Primary Care Unavailable DIAB, MERNA Attending Unavailable DIAB, MERNA Admitting Unavailable DIAB, MERNA Consulting Unavailable ELEONORA, DR BRIDGES Primary Care Unavailable DREW, DR ALEX Kemp Consulting Unavailable MAGALI RING Attending Unavailable MARÍA ELENA, MAGALI Admitting Unavailable MARÍA ELENA, MAGALI Consulting Unavailable REDD, WICHO Consulting Unavailable KARASIK, DR QUINTERO Admitting Unavailable [...] Unavailable HOUSE, DR BRIDGES Primary Care Unavailable DREW, DR ALEX Kemp Admitting Unavailable DREW, DR ALEX Kemp Consulting Unavailable DREW, DR ALEX Kemp Attending Unavailable SAL, DR BRYAN Lawler Consulting Unavailable KARASIK, DR QUINTERO Admitting Unavailable MARTINEZ, DR HAND Consulting Unavailable HOUSE, DR BRIDGES Primary Care Unavailable KARASIK, DR QUINTERO Attending Unavailable KARASIK, DR QUINTERO Consulting Unavailable KARASIK, DR QUINTERO Procedure Practitioner Unamichael LONG, GIOVANNA Consulting Unavailable JUAN, DR HAND Procedure Practitioner MONI Lockett Consulting Unavailable Eleonora, Blade Soriano Primary Care Physician [phone] AMELIE ESPARZA Attending Unavailable FRED, AMELIE Ch [...] day(s), # 2 tab(s), Refills(s) 0, Pharmacy: [facility]/pharmacy #[id number], 170, cm, 10/30/22 10:53:00 EDT, [...] 10-12-2021 Episodic Other aftercare (1 source) 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 Document Revised: 08/17/2021 Document Reviewed: 08/17/2021 [employer] Patient Education ? 2022 [employer] [place] [facility] Urology Office/Clinic Noteon 01-08-2023 Urology Office/Clinic Note Chief Complaint F/U to Cysto HPI Staff Last seen in our office 10/30/22 by JOE as a referral due to Microscopic Hematuria, Flank pain & Mixed Incontinence. Pt. was not able to give a urine sample today. 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 [address] Additional Instructions: PRN Patient Education Laamr Phoenix, personally scribed for Amelie Esparza PA-C on 01/08/2023 15:11:32. . Documentation recorded by the nelli Estrada accurately [...] Father. Migraine: Mother. Parkinsons disease: Father. Normal [facility] Comment on above: Result Comment: Elec tronically Signed By: AMELIE ESPARZA PA-C\.br\Date and Time Signed: 01/08/23 15:16 EDT\.br\Electronically Co-Signed By: Lamar Estrada\.br\Date and Time Co-Signed: 01/08/23 15:11 EDT Lab Reportson 11-26-2022 Lab Reports [id number] 6#1.00CD:127 [facility] Lab Reports [id number] 8#1.00CD:127 [facility] Lab Reports [id number] 7#1.00CD:127 [facility] Lab Reports [id number] 3#1.00CD:127 [facility] Lab Reports [id number] 9#1.00CD:127 [facility] RAD - Ultrasound Reporton RAD - Ultrasound Report [id number] #1.00CD:127 [facility] Operative Reporton Operative Report [id number] 7#1.00CD:127 [facility] Provider Letteron 11-14-2022 Provider Letter November 14, 2022 [place] [address] : 1980 To Whom It May Concern, [...] Constantino Martinez M.D., F.A.C.S. [facility] [address] [place], [place] [address] [facility] RAD - Ultrasound Reporton RAD - Ultrasound Report [id number] [id number] #1.00CD:127 [facility] Physician Referralon 023 Physician Referral [id number] #1.00CD:127 [facility] Screenson 11-02-2022 Screens [id number] 8#1.00CD:127 [facility] Pre-Certification Formon Pre-Certification Form [id number] 08#1.00CD:127 [facility] Ambulatory Visit Summaryon 0 10-30-2022 Ambulatory Visit Summary NEEL GARCIA Kimberly :1980 Visit Date:10/30/2022 Ambulatory Visit Instructions Your Diagnosis Flank pain Mixed incontinence Microscopic hematuria Tests Performed US Renal -- Results Pending -- Please visit your patient portal for your results or contact your primary care physician. Your Care Team Attending Physician - AMELIE EPSARZA PA-C Primary Care Physician - Blade Crews [...] AMELIE ESPARZA PA-C Where: [facility] Normal [facility] Consent for Procedure/Surger yon 10-30-2022 Consent for Procedure/Surgery [id number] #1.00CD:127 Normal [facility] HERPES SIMPLEX VIRUS (HSV) C ULTUREon 06-05-2022 HSV Culture/Type Comment Normal [facility] Comment on above: Result Comment: Nega tive No Herpes simplex virus isolated. Performed By: #### I NFLUAB #### [facility] [address] [place] [address] Dr. Cherie Dior CBC AUTO DIFFon 05-30-2022 BASO # 0.1 103/ul Normal 0.0-0.1 [facility] Comment on above: Performed By: #### I NFLUAB #### [facility] [address] [place] [address] Dr. Cherie Dior Basophils/100 WBC (Bld) 1.2 % Normal 0.2-2.0 [facility] Comment on above: Performed By: #### I NFLUAB #### [facility] [address] [address] [address] Cherie Dior EO # 0.1 103/ul Normal 0.0-0.7 [facility] Comment on above: Performed By: #### I NFLUAB #### [facility] [address] [place] [address] Dr. Cherie Dior Eosinophils/100 WBC (Bld) 1.9 % Normal 0.9-7.0 [facility] Comment on above: Performed By: #### I NFLUAB #### [facility] [address] [place] [address] Dr. Cherie Dior Erythrocyte distribution width (RBC) [Ratio] 14.9 % Normal 11.0-15.0 [facility] Comment on above: Performed By: #### I NFLUAB #### [facility] [address] [place] [address] Dr. Cherie Dior Hematocrit (Bld) [Volume fraction] 40.7 % Normal 36.0-48.0 [facility] Comment on above: Performed By: #### I NFLUAB #### [facility] [address] [place] [address] Dr. Cherie Dior Hemoglobin (Bld) [Mass/Vol] 12.8 g/dL Normal 12.0-16.0 [facility] Comment on above: Performed By: #### I NFLUAB #### [facility] [address] [place] [address] Dr. Cherie Dior IG # 0.05 10e3/ul Critically high 0.00-0.03 [facility] Comment on above: Performed By: #### I NFLUAB #### [facility] [address] [place] [address] Dr. Cherie Dior IG % 1.2 % Critically high 0.0-0.5 [facility] Comment on above: Performed By: #### I NFLUAB #### [facility] [address] [place] [address] Dr. Cherie Dior LYMPH # 0.9 103/ul Critically low 1.2-3.8 [facility] Comment on above: Performed By: #### I NFLUAB #### [facility] [address] [place] [address] Dr. Cherie Dior Lymphocytes/100 WBC (Bld) 21.8 % Normal 20.5-60.0 [facility] Comment on above: Performed By: #### I NFLUAB #### [facility] [address] [place] [address] Dr. Cherie Dior MANUAL DIFF REQ NO Normal [facility] Comment on above: Performed By: #### I NFLUAB #### [facility] [address] [place] [address] Dr. Cherie Dior MCH (RBC) [Entitic mass] 27.4 pg Normal 26.7-34.0 [facility] Comment on above: Performed By: #### I NFLUAB #### [facility] [address] [place] [address] Dr. Cherie Dior MCHC (RBC) [Mass/Vol] 31.4 g/dL Normal 29.9-35.2 [facility] Comment on above: Performed By: #### I NFLUAB #### [facility] [address] [place] [address] Dr. Cherie Dior MCV (RBC) [Entitic vol] 87.0 fL Normal 81.0-99.0 [facility] Comment on above: Performed By: #### I NFLUAB #### [facility] [address] [place] [address] Dr. Cherie Dior MONO # 0.7 103/ul Normal 0.3-0.8 [facility] Comment on above: Performed By: #### I NFLUAB #### [facility] [address] [place] [address] Dr. Cherie Dior Monocytes/100 WBC (Bld) 16.6 % Critically high 1.7-12. 0 [facility] Comment on above: Performed By: #### I NFLUAB #### [facility] [address] [place] [address] Dr. Cherie Dior NEUT # 2.5 103/ul Normal 1.4-6.5 [facility] Comment on above: Performed By: #### I NFLUAB #### [facility] [address] [place] [address] Dr. Cherie Dior Neutrophils/100 WBC (Bld) 57.3 % Normal 43.0-75.0 [facility] Comment on above: Performed By: #### I NFLUAB #### [facility] [address] [place] [address] Dr. Cherie Dior Platelet mean volume (Bld) [Entitic vol] 10.2 fL Normal 9.5-13.5 [facility] Comment on above: Performed By: #### I NFLUAB #### [facility] [address] [place] [address] Dr. Cherie Dior PLT 278 103/ul Normal 150-450 [facility] Comment on above: Performed By: #### I NFLUAB #### [facility] [address] [place] [address] Dr. Cherie Dior RBC 4.68 106/ul Normal 4.20-5.40 [facility] Comment on above: Performed By: #### I NFLUAB #### [facility] [address] [place] [address] Dr. Cherie Dior WBC 4.3 103/ul Normal 4.0-11.0 [facility] Comment on above: Performed By: #### I NFLUAB #### [facility] [address] [place] [address] Dr. Cherie Dior CULTURE URINEon 05-30-2022 CULTURE URINE Culture Observations: NO GROWTH. Normal [facility] Comment on above: Performed By: #### I NFLUAB #### [facility] [address] [place] [address] Dr. Cherie Dior UA (CLEAN/CATCH) MACHINE BINDER STRIPPER/MICRO I F IND.on 05-30-2022 Bilirubin Ql (U) Negative Normal NEGATIVE [facility] Comment on above: Performed By: #### B GAGE MAKER, CMADM, CMP #### [facility] [address] [place] [address] Dr. Cherie Dior Clarity (U) CLEAR Normal CLEAR [facility] Comment on above: Performed By: #### B GAGE MAKER, CMADM, CMP #### [facility] [address] [place] [address] Dr. Cherie Dior Color (U) LT. YELLOW Normal YELLOW [facility] Comment on above: Performed By: #### B GAGE MAKER, CMADM, CMP #### [facility] [address] [place] [address] Dr. Cherie Dior Glucose Ql (U) Negative Normal NEGATIVE The [facility] Comment on above: Performed By: #### B GAGE MAKER, CMADM, CMP #### [facility] [address] [place] [address] Dr. Cherie Dior Hemoglobin Ql (U) LARGE Abnormal NEGATIVE [facility] Comment on above: Performed By: #### B GAGE MAKER, CMADM, CMP #### [facility] [address] [place] [address] Dr. Cherie Dior Ketones Ql (U) TRACE Abnormal NEGATIVE The [facility] Comment on above: Performed By: #### B GAGE MAKER, CMADM, CMP #### [facility] [address] [address] [address] Cherie Doir LEUKOCYTES MODERATE Abnormal NEGATIVE [facility] Comment on above: Performed By: #### B GAGE MAKER, CMADM, CMP #### [facility] [address] [place] [address] Dr. Cherie Dior Nitrite Ql (U) Negative Normal NEGATIVE [facility] Comment on above: Performed By: #### B GAGE MAKER, CMADM, CMP #### [facility] [address] [address] [address] Cherie Dior pH (U) 6.0 [pH] Normal 5-9 [facility] Comment on above: Performed By: #### B GAGE MAKER, CMADM, CMP #### [facility] [address] [place] [address] Dr. Cherie Dior SPEC GRAVITY 1.020 Normal 1.005-<=1.025 [facility] Comment on above: Performed By: #### B GAGE MAKER, CMADM, CMP #### [facility] [address] [place] [address] Dr. Cherie Dior UA PROTEIN 30 mg/dl Abnormal NEGATIVE/ TRACE [facility] Comment on above: Performed By: #### B GAGE MAKER, CMADM, CMP #### [facility] [address] [place] [address] Dr. Cherie Dior UR MICRO IND INDICATED Normal [facility] Comment on above: Performed By: #### B GAGE MAKER, CMADM, CMP #### [facility] [address] [place] [address] Dr. Cherie Dior Urobilinogen Qn (U) 0.2 {Del'U}/dL Normal 0.2 - 1. 0 [facility] Comment on above: Performed By: #### B GAGE MAKER, CMADM, CMP #### [facility] [address] [place] [address] Dr. Cherie Dior URINE MICROSCOPIC ONLYon BACTERIA SMALL Abnormal NONE SEEN [facility] Comment on above: Performed By: #### B GAGE MAKER, CMADM, CMP #### [facility] [address] [place] [address] Dr. Cherie Dior Bacteria identified Cx Nom (U) INDICATED Normal [facility] Comment on above: Performed By: #### B GAGE MAKER, CMADM, CMP #### [facility] [address] [place] [address] Dr. Cherie Dior CAST NONE SEEN Normal NONE SEEN [facility] Comment on above: Performed By: #### B GAGE MAKER, CMADM, CMP #### [facility] [address] [place] [address] Dr. Cherie Dior Crystals LM Nom (Urine sed) NONE SEEN Normal NONE SEEN [facility] Comment on above: Performed By: #### B GAGE MAKER, CMADM, CMP #### [facility] [address] [place] [address] Dr. Cherie Dior Epithelial cells LM Ql (Urine sed) MODERATE Abnormal NONE SEEN /RARE [facility] Comment on above: Performed By: #### B GAGE MAKER, CMADM, CMP #### [facility] [address] [place] [address] Dr. Cherie Dior MUCOUS TRACE Abnormal NONE SEEN [facility] Comment on above: Performed By: #### B GAGE MAKER, CMADM, CMP #### [facility] [address] [place] [address] Dr. Cherie Dior RBC 2-5 Abnormal 0-2 [facility] Comment on above: Performed By: #### B GAGE MAKER, CMADM, CMP #### [facility] [address] [place] [address] Dr. Cherie Dior WBC 2-5 Abnormal NONE SEEN [facility] Comment on above: Performed By: #### B GAGE MAKER, CMADM, CMP #### [facility] [address] [place] [address] Dr. Cherie Dior Covid-19 PCR ([facility])on SARS-CoV-2 (COVID-19) RNA JULEE+probe Ql (Unsp spec) Not detected Normal NOT DETECTED [facility] Comment on above: Result Comment: [...] for this test is supported by the [employer] and Human Service's declaration that [...] used). Performed By: #### I NFLUAB #### [facility] [address] [place] [address] Dr. Cherie Dior GROUP A STREP CULTUREon S. pyogenes Ag Ql (Unsp spec) Culture Observations: NEGATIVE FOR GROUP A STREPTOCOCCUS. Normal [facility] Comment on above: Performed By: #### G RASTCX, SSCRN #### [facility] [address] [place] [address] Dr. Cherie Dior INFLUENZA A AND B AGon 05-27 INFLUANEGH SEE BELOW Normal [facility] Comment on above: Result Comment: Nega tive for Flu A protein angiten. Infection due to Flu A cannot be ruled out. Flu A angiten in the sample may be below the detection limit of the test. Performed By: #### I NFLUAB #### [facility] [address] [place] [address] Dr. Cherie Dior INFLUBNEGH SEE BELOW Normal [facility] Comment on above: Result Comment: Nega tive for Flu B protein antigen. Infection due to Flu B cannot be ruled out. Flu B antigen in the sample may be below the detection limit of the test. Performed By: #### I NFLUAB #### [facility] [address] [place] [address] Dr. Cherie Dior INFLUENZA A AG Negative Normal NEGATIVE SEE COMMENT [facility] Comment on above: Performed By: #### I NFLUAB #### [facility] [address] [place] [address] Dr. Cherie Dior INFLUENZA B AG Negative Normal NEGATIVE SEE COMMENT [facility] Comment on above: Performed By: #### I NFLUAB #### [facility] [address] [place] [address] Dr. Cherie Dior STREPT SCREENon 05-27-2022 STREP SCREEN A Negative Normal NEGATIVE [facility] Comment on above: Performed By: #### G RASTCX, SSCRN #### [facility] [address] [place] [address] Dr. Cherie Dior US TOMAS DOP LEG [...] BRYAN JONES Date: 2022-02-27 06:57 Normal [facility] BNPon 02-25-2022 Natriuretic peptide B (Bld) [Mass/Vol] 36.0 pg/mL Normal <=450.0 [facility] Comment on above: Performed By: #### B GAGE MAKER, CMADM, CMP #### [facility] [address] [place] [address] Dr. Cherie Dior CARDIAC ALEX ADMITon 022 CK [Catalytic activity/Vol] 150 U/L Normal 26-192 [facility] Comment on above: Performed By: #### B GAGE MAKER, CMADM, CMP #### [facility] [address] [place] [address] Dr. Cherie Dior CK.MB [Mass/Vol] 0.43 ng/mL Normal <=3.60 [facility] Comment on above: Performed By: #### B GAGE MAKER, CMADM, CMP #### [facility] [address] [place] [address] Dr. Cherie Dior HSTROP 4.7 pg/mL Normal 4.0-51.3 [facility] Comment on above: Result Comment: CUT- OFF POINTS HAVE BEEN ESTABLISHED BASED ON THE FOURTH UNIVERSAL DEFINITIONS OF MYOCARDIAL INFARCTION. THE UPPER REFERENCE LIMIT (URL) OF TROPONIN, DEFINED THE 99TH PERCENTILE OF cTnI DISTRIBUTION IN A REFERENCE POPULATION, HAS BEEN CONFIRMED THE DECISION THRESHOLD FOR RI DIAGNOSIS. Performed By: #### B GAGE MAKER, CMADM, CMP #### [facility] [address] [place] [address] Dr. Cherie Dior FRANCISCO 32 ng/mL Normal 9-82 [facility] Comment on above: Performed By: #### B GAGE MAKER, CMADM, CMP #### [facility] [address] [place] [address] Dr. Cherie Dior CBC AUTO DIFFon 02-25-2022 BASO # 0.0 103/ul Normal 0.0-0.1 [facility] Comment on above: Performed By: #### B GAGE MAKER, CMADM, CMP #### [facility] [address] [place] [address] Dr. Cherie Dior Basophils/100 WBC (Bld) 0.4 % Normal 0.2-2.0 [facility] Comment on above: Performed By: #### B GAGE MAKER, CMADM, CMP #### [facility] [address] [place] [address] Dr. Cherie Dior EO # 0.2 103/ul Normal 0.0-0.7 [facility] Comment on above: Performed By: #### B GAGE MAKER, CMADM, CMP #### [facility] [address] [place] [address] Dr. Cherie Dior Eosinophils/100 WBC (Bld) 1.8 % Normal 0.9-7.0 [facility] Comment on above: Performed By: #### B GAGE MAKER, CMADM, CMP #### [facility] [address] [place] [address] Dr. Cherie Dior Erythrocyte distribution width (RBC) [Ratio] 12.6 % Normal 11.0-15.0 [facility] Comment on above: Performed By: #### B GAGE MAKER, CMADM, CMP #### [facility] [address] [address] [address] Cherie Dior Hematocrit (Bld) [Volume fraction] 32.9 % Critically low 36.0-48.0 [facility] Comment on above: Performed By: #### B GAGE MAKER, CMADM, CMP #### [facility] [address] [place] [address] Dr. Cherie Dior Hemoglobin (Bld) [Mass/Vol] 10.5 g/dL Critically low 12.0-16.0 [facility] Comment on above: Performed By: #### B GAGE MAKER, CMADM, CMP #### [facility] [address] [place] [address] Dr. Cherie Dior IG # 0.12 10e3/ul Critically high 0.00-0.03 [facility] Comment on above: Performed By: #### B GAGE MAKER, CMADM, CMP #### [facility] [address] [place] [address] Dr. Cherie Dior IG % 1.4 % Critically high 0.0-0.5 [facility] Comment on above: Performed By: #### B GAGE MAKER, CMADM, CMP #### [facility] [address] [place] [address] Dr. Cherie Dior LYMPH # 1.7 103/ul Normal 1.2-3.8 [facility] Comment on above: Performed By: #### B GAGE MAKER, CMADM, CMP #### [facility] [address] [place] [address] Dr. Cherie Dior Lymphocytes/100 WBC (Bld) 20.1 % Critically low 20.5-60.0 [facility] Comment on above: Performed By: #### B GAGE MAKER, CMADM, CMP #### [facility] [address] [place] [address] Dr. Cherie Dior MANUAL DIFF REQ NO Normal [facility] Comment on above: Performed By: #### B GAGE MAKER, CMADM, CMP #### [facility] [address] [place] [address] Dr. Cherie Dior MCH (RBC) [Entitic mass] 28.8 pg Normal 26.7-34.0 [facility] Comment on above: Performed By: #### B GAGE MAKER, CMADM, CMP #### [facility] [address] [place] [address] Dr. Cherie Dior MCHC (RBC) [Mass/Vol] 31.9 g/dL Normal 29.9-35.2 [facility] Comment on above: Performed By: #### B GAGE MAKER, CMADM, CMP #### [facility] [address] [place] [address] Dr. Cherie Dior MCV (RBC) [Entitic vol] 90.4 fL Normal 81.0-99.0 [facility] Comment on above: Performed By: #### B GAGE MAKER, CMADM, CMP #### [facility] [address] [place] [address] Dr. Cherie Dior MONO # 0.9 103/ul Critically high 0.3-0.8 [facility] Comment on above: Performed By: #### B GAGE MAKER, CMADM, CMP #### [facility] [address] [place] [address] Dr. Cherie Dior Monocytes/100 WBC (Bld) 10.4 % Normal 1.7-12.0 [facility] Comment on above: Performed By: #### B GAGE MAKER, CMADM, CMP #### [facility] Laboratory [address] [place] [address] Dr. Cherie Dior NEUT # 5.6 103/ul Normal 1.4-6.5 [facility] Comment on above: Performed By: #### B GAGE MAKER, CMADM, CMP #### [facility] [address] [place] [address] Dr. Cherie Dior Neutrophils/100 WBC (Bld) 65.9 % Normal 43.0-75.0 [facility] Comment on above: Performed By: #### B GAGE MAKER, CMADM, CMP #### [facility] [address] [place] [address] Dr. Cherie Dior Platelet mean volume (Bld) [Entitic vol] 9.0 fL Critically low 9.5-13.5 [facility] Comment on above: Performed By: #### B GAGE MAKER, CMADM, CMP #### [facility] [address] [place], [place] [address] Dr. Cherie Dior PLT 381 103/ul Normal 150-450 [facility] Comment on above: Performed By: #### B GAGE MAKER, CMADM, CMP #### [facility] [address] [place], [place] [address] Dr. Cherie Dior RBC 3.64 106/ul Critically low 4.20-5.40 [facility] Comment on above: Performed By: #### B GAGE MAKER, CMADM, CMP #### [facility] [address] [place], [place] [address] Dr. Cherie Dior WBC 8.4 103/ul Normal 4.0-11.0 [facility] Comment on above: Performed By: #### B GAGE MAKER, CMADM, CMP #### [facility] [address] [place], [place] [address] Dr. Cherie Dior CTA CHEST WO W [...] The subdiaphragmatic abdominal organs included in the [id number] do not demonstrate any acute abnormality allowing for some fatty infiltration of the liver.. IMPRESSION: No CT evidence for acute pulmonary embolus. Electronically authenticated by: WICHO RAINEY Date: 2022-02-25 19:04 Normal [facility] D-DIMERon 02-25-2022 D-DIMER 6.44 mg/L FEU Critically high <=0.59 [facility] Comment on above: Performed By: #### B GAGE MAKER, MEAGHAN, CMP #### [facility] [address] [place] [address] Dr. Cherie Dior D-DIMER COMMENTS SEE BELOW Normal [facility] Comment on above: Result Comment: Incr eases [...] By: #### B MEAGHAN OSORIO, CMP #### [facility] [address] [place] [address] Dr. Cherie Dior ER URINE PROFILEon 2 Bilirubin Ql (U) Negative Normal NEGATIVE [facility] Comment on above: Performed By: #### B MEAGHAN OSORIO, CMP #### [facility] [address] [place] [address] Dr. Cherie Dior Clarity (U) CLEAR Normal CLEAR [facility] Comment on above: Performed By: #### B MEAGHAN OSORIO, CMP #### [facility] [address] [place] [address] Dr. Cherie Dior Color (U) LT. YELLOW Normal YELLOW [facility] Comment on above: Performed By: #### B MEAGHAN OSORIO, CMP #### [facility] [address] [place] [address] Dr. Cherie Dior ERUAHD A micrscopic examination will be performed if indicated. Normal [facility] Comment on above: Performed By: #### B GAGE MAKER, CMADM, CMP #### [facility] [address] [place] [address] [address] Cherie Dior Glucose Ql (U) Negative Normal NEGATIVE [facility] Comment on above: Performed By: #### B GAGE MAKER, CMADM, CMP #### [facility] [address] [place] [address] [address] Cherie Dior Hemoglobin Ql (U) SMALL Abnormal NEGATIVE [facility] Comment on above: Performed By: #### B GAGE MAKER, CMADM, CMP #### [facility] [address] [place] [address] [address] Cherie Dior Ketones Ql (U) Negative Normal NEGATIVE [facility] Comment on above: Performed By: #### B GAGE MAKER, CMADM, CMP #### [facility] [address] [place] [address] [address] Cherie Dior LEUKOCYTES Negative Normal NEGATIVE [facility] Comment on above: Performed By: #### B GAGE MAKER, CMADM, CMP #### [facility] [address] [place] [address] [address] Cherie Dior Nitrite Ql (U) Negative Normal NEGATIVE [facility] Comment on above: Performed By: #### B GAGE MAKER, CMADM, CMP #### [facility] [address] [place] [address] [address] Cherie Dior pH (U) 6.0 [pH] Normal 5-9 [facility] Comment on above: Performed By: #### B GAGE MAKER, CMADM, CMP #### [facility] [address] [place] [address] [address] Cherie Dior SPEC GRAVITY 1.020 Normal 1.005-<=1.025 [facility] Comment on above: Performed By: #### B GAGE MAKER, CMADM, CMP #### [facility] [address] [place] [address] [address] Cherie Dior UA PROTEIN Negative Normal NEGATIVE/ TRACE [facility] Comment on above: Performed By: #### B GAGE MAKER, CMADM, CMP #### [facility] [address] [place] [address] Dr. Cherie Dior UR MICRO IND INDICATED Normal [facility] Comment on above: Performed By: #### B GAGE MAKER, CMADM, CMP #### [facility] [address] [place] [address] [address] Cherie Dior Urobilinogen Qn (U) 0.2 {Dle'U}/dL Normal 0.2 - 1. 0 [facility] Comment on above: Performed By: #### B GAGE MAKER, CMADM, CMP #### [facility] [address] [place] [address] [address] Cherie Dior PROF 14(COMP METB)on 022 Albumin [Mass/Vol] 3.8 g/dL Normal 3.4-5.0 [facility] Comment on above: Performed By: #### B GAGE MAKER, CMADM, CMP #### [facility] [address] [place] [address] Dr. Cherie Dior Albumin/Globulin [Mass ratio] 0.8 {ratio} Normal [facility] Comment on above: Performed By: #### B GAGE MAKER, CMADM, CMP #### [facility] [address] [place] [address] [address] Cherie Dior ALP [Catalytic activity/Vol] 72 U/L Normal 46-116 [facility] Comment on above: Performed By: #### B GAGE MAKER, CMADM, CMP #### [facility] [address] [place] [address] [address] Cherie Dior ALT [Catalytic activity/Vol] 21 U/L Normal 14-59 [facility] Comment on above: Performed By: #### B GAGE MAKER, CMADM, CMP #### [facility] [address] [place] [address] [address] Cherie Dior Anion gap [Moles/Vol] 10.5 mmol/L Normal [facility] Comment on above: Performed By: #### B GAGE MAKER, CMADM, CMP #### [facility] [address] [place] [address] [address] Cherie Dior AST [Catalytic activity/Vol] 13 U/L Critically low 15-37 [facility] Comment on above: Performed By: #### B GAGE MAKER, CMADM, CMP #### [facility] [address] [place] [address] [address] Cherie Dior Bilirubin [Mass/Vol] 0.5 mg/dL Normal 0.2-1.0 [facility] Comment on above: Performed By: #### B GAGE MAKER, CMADM, CMP #### [facility] [address] [place] [address] Dr. Cherie Dior Calcium [Mass/Vol] 9.0 mg/dL Normal 8.5-10.1 [facility] Comment on above: Performed By: #### B GAGE MAKER, CMADM, CMP #### [facility] [address] [place] [address] Dr. Cherie Dior Chloride [Moles/Vol] 104 mmol/L Normal 98-107 [facility] Comment on above: Performed By: #### B GAGE MAKER, CMADM, CMP #### [facility] [address] [place] [address] Dr. Cherie Dior CO2 [Moles/Vol] 25.3 mmol/L Normal 21.0-32.0 [facility] Comment on above: Performed By: #### B GAGE MAKER, CMADM, CMP #### [facility] [address] [place] [address] Dr. Cherie Dior Creatinine [Mass/Vol] 0.86 mg/dL Normal 0.55-1.02 [facility] Comment on above: Performed By: #### B GAGE MAKER, CMADM, CMP #### [facility] [address] [place] [address] Dr. Cherie Dior EGFR-AF SALVADOREAN >60 Normal >=60 [facility] Comment on above: Performed By: #### B GAGE MAKER, CMADM, CMP #### [facility] [address] [place] [address] Dr. Cherie Dior EGFR-NON AF SALVADOREAN >60 Normal >=60 [facility] Comment on above: Performed By: #### B GAGE MAKER, CMADM, CMP #### [facility] [address] [place] [address] Dr. Cherie Dior Globulin (S) [Mass/Vol] 4.5 g/dL Normal [facility] Comment on above: Performed By: #### B GAGE MAKER, CMADM, CMP #### [facility] [address] [place] [address] [address] Cherie Dior Glucose [Mass/Vol] 85 mg/dL Normal 74-106 [facility] Comment on above: Performed By: #### B GAGE MAKER, CMADM, CMP #### [facility] [address] [place] [address] [address] Cherie Dior Potassium [Moles/Vol] 3.8 mmol/L Normal 3.5-5.1 [facility] Comment on above: Performed By: #### B GAGE MAKER, CMADM, CMP #### [facility] [address] [place] [address] Dr. Cherie Dior Protein [Mass/Vol] 8.3 g/dL Critically high 6.4-8.2 [facility] Comment on above: Performed By: #### B GAGE MAKER, CMADM, CMP #### [facility] [address] [place] [address] Dr. Cherie Dior Sodium [Moles/Vol] 136 mmol/L Normal 136-145 [facility] Comment on above: Performed By: #### B GAGE MAKER, CMADM, CMP #### [facility] [address] [place] [address] Dr. Cherie Dior Urea nitrogen [Mass/Vol] 14.0 mg/dL Normal 7.0-18.0 [facility] Comment on above: Performed By: #### B GAGE MAKER, CMADM, CMP #### [facility] [address] [place] [address] Dr. Cherie Dior Urea nitrogen/Creatinine [Mass ratio] 16.3 mg/mg Normal [facility] Comment on above: Performed By: #### B GAGE MAKER, KAIDM, CMP #### [facility] [address] [place] [address] Dr. Cherie Dior PROTIMEon 02-25-2022 INR Coag (PPP) [Relative time] 0.97 {INR} Normal [facility] Comment on above: Performed By: #### B GAGE MAKER, MEAGHAN, CMP #### [facility] [address] [place] [address] Dr. Cherie Dior INR GUIDELINES SEE BELOW Normal [facility] Comment on above: Result Comment: JORDEN RED INR: 2.0 - 3.0 CONDITIONS NOT LISTED BELOW 2.5 - 3.5 FOR PROSTHETIC HEART VALVE REPLACEMENT 2.5 - 3.5 RECURRENT THROMBOSIS Performed By: #### B GAGE MAKER, MEAGHAN, CMP #### [facility] [address] [place] [address] Dr. Cherie Dior PT Coag (PPP) [Time] 10.5 s Normal 9.0-11.6 [facility] Comment on above: Performed By: #### B GAGE MAKER, MEAGHAN, CMP #### [facility] [address] [place] [address] Dr. Cherie Dior PTTon 02-25-2022 aPTT Coag (Bld) [Time] 29.1 s Normal 22.3-36.2 [facility] Comment on above: Performed By: #### B GAGE MAKER, MEAGHAN, CMP #### [facility] [address] [place] [address] Dr. Cherie Dior URINE MICROSCOPIC ONLYon BACTERIA NONE SEEN Normal NONE SEEN [facility] Comment on above: Performed By: #### B GAGE MAKER, MEAGHAN, CMP #### [facility] [address] [place] [address] Dr. Cherie Dior Bacteria identified Cx Nom (U) NOT INDICATED Normal [facility] Comment on above: Performed By: #### B GAGE MAKER, KAIDM, CMP #### [facility] [address] [place] [address] Dr. Cherie Dior CAST NONE SEEN Normal NONE SEEN [facility] Comment on above: Performed By: #### B GAGE MAKER, KAIDM, CMP #### [facility] [address] [place] [address] Dr. Cherie Dior Crystals LM Nom (Urine sed) NONE SEEN Normal NONE SEEN [facility] Comment on above: Performed By: #### B GAGE MAKER, KAIDM, CMP #### [facility] [address] [place] [address] Dr. Cherie Dior Epithelial cells LM Ql (Urine sed) FEW Abnormal NONE SEEN /RARE [facility] Comment on above: Performed By: #### B GAGE MAKER, CMADM, CMP #### [facility] [address] [place] [address] Dr. Cherie Dior MUCOUS TRACE Abnormal NONE SEEN [facility] Comment on above: Performed By: #### B GAGE MAKER, CMADM, CMP #### [facility] [address] [place] [address] Dr. Cherie Diro RBC 5-10 Abnormal 0-2 [facility] Comment on above: Performed By: #### B GAGE MAKER, CMADM, CMP #### [facility] [address] [place] [address] Dr. Cherie Dior WBC NONE SEEN Normal NONE SEEN [facility] Comment on above: Performed By: #### B GAGE MAKER, CMADM, CMP #### [facility] [address] [place] [address] Dr. Cherie Dior Operative Reporton 2 Operative Report [id number] #1.00CD:127 Normal [facility] BUNon 02-16-2022 Urea nitrogen [Mass/Vol] 9.0 mg/dL Normal 7.0-18.0 [facility] Comment on above: Performed By: #### B UN, CREA #### [facility] [address] [place] [address] Dr. Cherie Dior CBC AUTO DIFFon 02-16-2022 BASO # 0.0 103/ul Normal 0.0-0.1 [facility] Comment on above: Performed By: #### C BC #### [facility] [address] [place] [address] Dr. Cherie Dior Basophils/100 WBC (Bld) 0.1 % Critically low 0.2-2.0 [facility] Comment on above: Performed By: #### C BC #### [facility] [address] [place] [address] Dr. Cherie Dior EO # 0.0 103/ul Normal 0.0-0.7 [facility] Comment on above: Performed By: #### C BC #### [facility] [address] [place] [address] Dr. Cherie Dior Eosinophils/100 WBC (Bld) 0.0 % Critically low 0.9-7.0 [facility] Comment on above: Performed By: #### C BC #### [facility] [address] [place] [address] Dr. Cherie Dior Erythrocyte distribution width (RBC) [Ratio] 12.6 % Normal 11.0-15.0 [facility] Comment on above: Performed By: #### C BC #### [facility] [address] [place] [address] Dr. Cherie Dior Hematocrit (Bld) [Volume fraction] 31.0 % Critically low 36.0-48.0 [facility] Comment on above: Performed By: #### C BC #### [facility] [address] [place] [address] Dr. Cherie Dior Hemoglobin (Bld) [Mass/Vol] 10.2 g/dL Critically low 12.0-16.0 [facility] Comment on above: Performed By: #### C BC #### [facility] [address] [place] [address] Dr. Cherie Dior IG # 0.04 10e3/ul Critically high 0.00-0.03 [facility] Comment on above: Performed By: #### C BC #### [facility] [address] [place] [address] Dr. Cherie Dior IG % 0.3 % Normal 0.0-0.5 [facility] Comment on above: Performed By: #### C BC #### [facility] [address] [place] [address] Dr. Cherie Dior LYMPH # 1.1 103/ul Critically low 1.2-3.8 [facility] Comment on above: Performed By: #### C BC #### [facility] [address] [place] [address] Dr. Cherie Dior Lymphocytes/100 WBC (Bld) 9.6 % Critically low 20.5-60.0 [facility] Comment on above: Performed By: #### C BC #### [facility] [address] [place] [address] Dr. Cherie Dior MANUAL DIFF REQ NO Normal [facility] Comment on above: Performed By: #### C BC #### [facility] [address] [place] [address] Dr. Cherie Dior MCH (RBC) [Entitic mass] 29.1 pg Normal 26.7-34.0 [facility] Comment on above: Performed By: #### C BC #### [facility] [address] [place] [address] Dr. Cherie Dior MCHC (RBC) [Mass/Vol] 32.9 g/dL Normal 29.9-35.2 [facility] Comment on above: Performed By: #### C BC #### [facility] [address] [place] [address] Dr. Cherie Dior MCV (RBC) [Entitic vol] 88.3 fL Normal 81.0-99.0 [facility] Comment on above: Performed By: #### C BC #### [facility] [address] [place] [address] Dr. Cherie Dior MONO # 1.2 103/ul Critically high 0.3-0.8 [facility] Comment on above: Performed By: #### C BC #### [facility] [address] [place] [address] Dr. Cherie Dior Monocytes/100 WBC (Bld) 9.9 % Normal 1.7-12.0 [facility] Comment on above: Performed By: #### C BC #### [facility] [address] [place] [address] Dr. Cherie Dior NEUT # 9.5 103/ul Critically high 1.4-6.5 [facility] Comment on above: Performed By: #### C BC #### [facility] [address] [place] [address] Dr. Cherie Dior Neutrophils/100 WBC (Bld) 80.1 % Critically high 43.0-75.0 [facility] Comment on above: Performed By: #### C BC #### [facility] [address] [place] [address] Dr. Cherie Dior Platelet mean volume (Bld) [Entitic vol] 9.5 fL Normal 9.5-13.5 [facility] Comment on above: Performed By: #### C BC #### [facility] [address] [place] [address] Dr. Cherie Dior PLT 225 103/ul Normal 150-450 [facility] Comment on above: Performed By: #### C BC #### [facility] [address] [place] [address] Dr. Cherie iDor RBC 3.51 106/ul Critically low 4.20-5.40 [facility] Comment on above: Performed By: #### C BC #### [facility] [address] [place] [address] Dr. Cherie Dior WBC 11.8 103/ul Critically high 4.0-11.0 [facility] Comment on above: Performed By: #### C BC #### [facility] [address] [place] [address] Dr. Cherie Dior CREATININEon 02-16-2022 Creatinine [Mass/Vol] 0.98 mg/dL Normal 0.55-1.02 [facility] Comment on above: Performed By: #### B UN, CREA #### [facility] [address] [place] [address] Dr. Cherie Dior EGFR-AF SALVADOREAN >60 Normal >=60 [facility] Comment on above: Performed By: #### B UN, CREA #### [facility] [address] [place] [address] Dr. Cherie Dior EGFR-NON AF SALVADOREAN >60 Normal >=60 [facility] Comment on above: Performed By: #### B UN, CREA #### [facility] [address] [place] [address] Dr. Cherie Dior PREG HCG QUALon 02-15-2022 , QUAL Negative Normal NEGATIVE [facility] Comment on above: Performed By: #### I NFLUAB #### [facility] [address] [place] [address] Dr. Cherie Dior Consent for Procedure/Surger yon 02-14-2022 Consent for Procedure/Surgery [id number] #[id number]:[id number] Normal [facility] CBC AUTO DIFFon 02-12-2022 BASO # 0.0 103/ul Normal 0.0-0.1 [facility] Comment on above: Performed By: #### B GAGE MAKER, CMADM, CMP #### [facility] [address] [place] [address] Dr. Cherie Dior Basophils/100 WBC (Bld) 0.6 % Normal 0.2-2.0 [facility] Comment on above: Performed By: #### B GAGE MAKER, CMADM, CMP #### [facility] [address] [place] [address] Dr. Cherie Dior EO # 0.1 103/ul Normal 0.0-0.7 [facility] Comment on above: Performed By: #### B GAGE MAKER, CMADM, CMP #### [facility] [address] [place] [address] Dr. Cherie Dior Eosinophils/100 WBC (Bld) 4.0 % Normal 0.9-7.0 [facility] Comment on above: Performed By: #### B GAGE MAKER, CMADM, CMP #### [facility] [address] [place] [address] Dr. Cherie Dior Erythrocyte distribution width (RBC) [Ratio] 12.9 % Normal 11.0-15.0 [facility] Comment on above: Performed By: #### B GAGE MAKER, CMADM, CMP #### [facility] [address] [place] [address] Dr. Cherie Dior Hematocrit (Bld) [Volume fraction] 38.8 % Normal 36.0-48.0 [facility] Comment on above: Performed By: #### B GAGE MAKER, CMADM, CMP #### [facility] [address] [place] [address] Dr. Cherie Dior Hemoglobin (Bld) [Mass/Vol] 12.6 g/dL Normal 12.0-16.0 [facility] Comment on above: Performed By: #### B GAGE MAKER, CMADM, CMP #### [facility] [address] [place] [address] Dr. Cherie Dior IG # 0.00 10e3/ul Normal 0.00-0.03 [facility] Comment on above: Performed By: #### B GAGE MAKER, CMADM, CMP #### [facility] [address] [place] [address] Dr. Cherie Dior IG % 0.0 % Normal 0.0-0.5 [facility] Comment on above: Performed By: #### B GAGE MAKER, CMADM, CMP #### [facility] [address] [place] [address] Dr. Cherie Dior LYMPH # 1.3 103/ul Normal 1.2-3.8 [facility] Comment on above: Performed By: #### B GAGE MAKER, CMADM, CMP #### [facility] [address] [place] [address] Dr. Cherie Dior Lymphocytes/100 WBC (Bld) 36.5 % Normal 20.5-60.0 [facility] Comment on above: Performed By: #### B GAGE MAKER, CMADM, CMP #### [facility] [address] [place] [address] Dr. Cherie Dior MANUAL DIFF REQ NO Normal [facility] Comment on above: Performed By: #### B GAGE MAKER, CMADM, CMP #### [facility] [address] [place] [address] Dr. Cherie Dior MCH (RBC) [Entitic mass] 29.4 pg Normal 26.7-34.0 [facility] Comment on above: Performed By: #### B GAGE MAKER, CMADM, CMP #### [facility] [address] [place] [address] Dr. Cherie Dior MCHC (RBC) [Mass/Vol] 32.5 g/dL Normal 29.9-35.2 [facility] Comment on above: Performed By: #### B GAGE MAKER, CMADM, CMP #### [facility] [address] [place] [address] Dr. Cherie Dior MCV (RBC) [Entitic vol] 90.7 fL Normal 81.0-99.0 [facility] Comment on above: Performed By: #### B GAGE MAKER, CMADM, CMP #### [facility] [address] [place] [address] Dr. Cherie Dior MONO # 0.5 103/ul Normal 0.3-0.8 [facility] Comment on above: Performed By: #### B GAGE MAKER, CMADM, CMP #### [facility] [address] [place] [address] Dr. Cherie Dior Monocytes/100 WBC (Bld) 12.9 % Critically high 1.7-12. 0 [facility] Comment on above: Performed By: #### B GAGE MAKER, CMADM, CMP #### [facility] [address] [place] [address] Dr. Cherie Dior NEUT # 1.6 103/ul Normal 1.4-6.5 [facility] Comment on above: Performed By: #### B GAGE MAKER, CMADM, CMP #### [facility] [address] [place] [address] Dr. Cherie Dior Neutrophils/100 WBC (Bld) 46.0 % Normal 43.0-75.0 [facility] Comment on above: Performed By: #### B GAGE MAKER, CMADM, CMP #### [facility] [address] [place] [address] Dr. Cherie Dior Platelet mean volume (Bld) [Entitic vol] 9.8 fL Normal 9.5-13.5 [facility] Comment on above: Performed By: #### B GAGE MAKER, CMADM, CMP #### [facility] [address] [place] [address] Dr. Cherie Dior PLT 202 103/ul Normal 150-450 [facility] Comment on above: Performed By: #### B GAGE MAKER, CMADM, CMP #### [facility] [address] [place] [address] Dr. Cherie Dior RBC 4.28 106/ul Normal 4.20-5.40 [facility] Comment on above: Performed By: #### B GAGE MAKER, CMADM, CMP #### [facility] [address] [place] [address] Dr. Cherie Dior WBC 3.5 103/ul Critically low 4.0-11.0 [facility] Comment on above: Performed By: #### B GAGE MAKER, CMADM, CMP #### [facility] [address] [address] [address] Cherie Dior Covid-19 PCR ([facility])on 01-21 SARS-CoV-2 (COVID-19) RNA JULEE+probe Ql (Unsp spec) Not detected Normal NOT DETECTED [facility] Comment on above: Result Comment: This test is not yet approved or cleared by the [place] FDA. When there are no FDA-approved or cleared tests available, and other criteria are met, FDA can make tests available under an emergency access mechanism called an Emergency Use Authorization (EUA). The EUA for this test is supported by the [place] Builder of Health and Human Service's (HHS's) declaration [...] consistent with SARS-CoV-2. Performed By: #### B GAGE MAKER, KAIDM, CMP #### [facility] [address] [address] [address] Cherie Dior PROF CHEM 8 (BAS METB)on Anion gap [Moles/Vol] 7.5 mmol/L Normal [facility] Comment on above: Performed By: #### B MP #### [facility] [address] [address] [address] Cherie Dior Calcium [Mass/Vol] 8.4 mg/dL Critically low 8.5-10.1 [facility] Comment on above: Performed By: #### B MP #### [facility] [address] [place] [address] Dr. Cherie Dior Chloride [Moles/Vol] 106 mmol/L Normal 98-107 [facility] Comment on above: Performed By: #### B MP #### [facility] [address] [address] [address] Cherie Dior CO2 [Moles/Vol] 28.3 mmol/L Normal 21.0-32.0 [facility] Comment on above: Performed By: #### B MP #### [facility] [address] [place] [address] Dr. Cherie Dior Creatinine [Mass/Vol] 0.81 mg/dL Normal 0.55-1.02 [facility] Comment on above: Performed By: #### B MP #### [facility] [address] [place] [address] Dr. Cherie Dior EGFR-AF SALVADOREAN >60 Normal >=60 [facility] Comment on above: Performed By: #### B MP #### [facility] [address] [place] [address] Dr. Cherie Dior EGFR-NON AF SALVADOREAN >60 Normal >=60 [facility] Comment on above: Performed By: #### B MP #### [facility] [address] [place] [address] Dr. Cherie Dior Glucose [Mass/Vol] 75 mg/dL Normal 74-106 [facility] Comment on above: Performed By: #### B MP #### [facility] [address] [place] [address] Dr. Cherie Dior Potassium [Moles/Vol] 3.8 mmol/L Normal 3.5-5.1 [facility] Comment on above: Performed By: #### B MP #### [facility] [address] [place] [address] Dr. Cherie Dior Sodium [Moles/Vol] 138 mmol/L Normal 136-145 [facility] Comment on above: Performed By: #### B MP #### [facility] [address] [place] [address] Dr. Cherie Dior Urea nitrogen [Mass/Vol] 8.0 mg/dL Normal 7.0-18.0 [facility] Comment on above: Performed By: #### B MP #### [facility] [address] [place] [address] Dr. Cherie Dior Urea nitrogen/Creatinine [Mass ratio] 9.9 mg/mg Normal [facility] Comment on above: Performed By: #### B MP #### [facility] [address] [address] [address] Cherie Dior PROTIMEon 02-12-2022 INR Coag (PPP) [Relative time] 0.97 {INR} Normal [facility] Comment on above: Performed By: #### B GAGE MAKERMEAGHAN, CMP #### [facility] [address] [place] [address] Dr. Cherie Dior INR GUIDELINES SEE BELOW Normal [facility] Comment on above: Result Comment: JORDEN RED INR: 2.0 - 3.0 CONDITIONS NOT LISTED BELOW 2.5 - 3.5 FOR PROSTHETIC HEART VALVE REPLACEMENT 2.5 - 3.5 RECURRENT THROMBOSIS Performed By: #### B GAGE MAKER, MEAGHAN, CMP #### [facility] [address] [place] [address] Dr. Cherie Dior PT Coag (PPP) [Time] 10.5 s Normal 9.0-11.6 [facility] Comment on above: Performed By: #### B GAGE MAKER, MEAGHAN, CMP #### [facility] [address] [place] [address] Dr. Cherie Dior PTTon 02-12-2022 aPTT Coag (Bld) [Time] 25.1 s Normal 22.3-36.2 Th [facility] Comment on above: Performed By: #### B GAGE MAKERMEAGHAN, CMP #### [facility] [address] [place] [address] Dr. Cherie Dior TYPE AND SCREENon 02-12-2022 TYPE AND SCREEN Negative Normal [facility] Comment on above: Performed By: #### I NFLUAB #### [facility] [address] [place] [address] Dr. Cherie Dior Physician Referralon 022 Physician Referral [id number] #[id number] Normal [facility] PREG HCG QUALon 01-05-2022 , QUAL Negative Normal NEGATIVE [facility] Comment on above: Performed By: #### B GAGE MAKER, CMADM, CMP #### [facility] [address] [place] [address] Dr. Cherie Dior MG MAMM SCREEN 3D ARJUN CADon 01-02-2022 MG MAMM SCREEN 3D ARJUN CAD Patient: NEEL GARCIA Exam Date: 01/02/2022 : 1980 Gender:F Ordering : DR INGRID DE LOS SANTOS . Admission #: [id number] Family : Order #: [id number] CLICK HERE TO VIEW EXAM RADIOLOGY REPORT PROCEDURE: MAMMOGRAM SCREENING 3D BILATERAL CAD COMPARISON: MG MAMM SCREEN ARJUN W CAD, 07/29/2018. INDICATIONS: Screening mammography Calculator Name NCI Breast Cancer Risk Assessment Tool 5 Year Breast Cancer Risk Not Reported. Lifetime Breast Cancer Risk Not Reported. Personal Breast Cancer No Personal Ovarian Cancer No Treatments None Family Cancers None LOCATION: [facility] BREAST COMPOSITION: Heterogeneously dense,which may [...] MD on 01/02/2022 at 11:25 Normal [facility] Covid-19 PCR ([facility])on SARS-CoV-2 (COVID-19) RNA JULEE+probe Ql (Unsp spec) Not detected Normal NOT DETECTED [facility] Comment on above: Result Comment: This test is not yet approved or cleared by the [place] FDA. When there are no FDA-approved or cleared tests available, and other criteria are met, FDA can make tests available under an emergency access mechanism called an Emergency Use Authorization (EUA). The EUA for this test is supported by the [place] [employer] of Health and Human Service's (HHS's) declaration [...] SARS-CoV-2. Performed By: #### I NFLUAB #### [facility] [address] [place] [address] Dr. Cherie Dior US PELVIS AND TRANSVAGon [...] her menstrual cycle. Electronically authenticated by: AUSTIN MIRANDAPRIMITIVO Date: 2021-12-20 11:02 Normal [facility] PAP ACOG PANEL 2: 30 to 65on 12-19-2021 . . Normal [facility] Comment on above: Result Comment: Perf ormed at: WB Performed By: #### B GAGE MAKER, CMADM, CMP #### [facility] [address] [address] [address] Cherie Dior Age Gdln ACOG Testing 30-65 Normal [facility] Comment on above: Performed By: #### B GAGE MAKER, CMADM, CMP #### [facility] [address] [address] [address] Cherie Dior DIAGNOSIS: Comment Normal [facility] Comment on above: Result Comment: NEGA TIVE FOR INTRAEPITHELIAL LESION OR MALIGNANCY. Performed at: WB Performed By: #### B GAGE MAKER, CMADM, CMP #### [facility] [address] [address] [address] Cherie Dior HPV Aptima Negative Normal Negative [facility] Comment on above: Result Comment: This nucleic acid amplification test detects fourteen high-risk HPV types (16,18,31,33,35,39,45,51,52,56,58,59,66,68) without differentiation. Performed at: =G Performed By: #### B GAGE MAKER, CMADM, CMP #### [facility] [address] [address] [address] Cherie Dior Methodology: Comment Normal [facility] Comment on above: Result Comment: This liquid based ThinPrep(R) pap test was screened with the use of an image guided system. Performed at: WB Performed By: #### B GAGE MAKER, CMADM, CMP #### [facility] [address] [place] [address] Dr. Cherie Dior Note: Comment Normal [facility] Comment on above: Result Comment: The Pap smear is a screening test designed to aid in the detection of premalignant and malignant conditions of the uterine cervix. It is not a diagnostic procedure and should not be used as the sole means of detecting cervical cancer. Both false-positive and false-negative reports do occur. . Performed at: WB Performed By: #### B GAGE MAKER, CMADM, CMP #### [facility] [address] [address] [address] Cherei Dior Performed by: Comment Normal [facility] Comment on above: Result Comment: Griselda Drummond, Horticulture Worker (ASCP) Performed at: WB Performed By: #### B GAGE MAKER, CMADM, CMP #### [facility] [address] [address] [address] Cherie Dior Specimen adequacy: Comment Normal [facility] Comment on above: Result Comment: Sati sfactory for evaluation. Endocervical and/or squamous metaplastic cells (endocervical component) are present. Performed at: WB Performed By: #### B GAGE MAKER, CMADM, CMP #### [facility] [address] [address] [address] Cherie Jurado 11-14-2021 CNPN Telephone ([facility]) NEEL GARCIA ([id number]) 1980 F Date Time Provider Department 11/14/21 JIAN DE LA CRUZ During your visit today, we recorded the following information about you: Jian De La Cruz RN 11/14/2021 3:15 PM Signed ----- Message from Alina Barros RN sent at 11/13/2021 1:26 PM EDT ----- ----- Message ----- From: Paolo Ward MD Sent: 11/11/2021 6:10 AM EDT To: Alina Barros RN [facility]. Can you please call pt and let [...] JIAN DE LA CRUZ on 11/14/21 Normal [facility] CBC W Auto Differential pane l (Bld)on 11-10-2021 Basophils (Bld) [#/Vol] 0.03 10*3/uL Normal <0.11 [facility] Comment on above: Order Comment: Speci men Type: BLOOD SPECIMENOrdering Facility: [facility] Address: [address] [place] [address] Performed By: #### 5 7021-8 ####[facility] LABCLIA [id number] [place] [address] Basophils/100 WBC (Bld) 0.9 % Normal [facility] Comment on above: Order Comment: Speci men Type: BLOOD SPECIMENOrdering Facility: [facility] Address: [address] [address] Performed By: #### 5 7021-8 ####[facility] LABCLIA [id number] [place] [address] Differential cell count method Nom (Bld) Auto Normal [facility] Comment on above: Order Comment: Speci men Type: BLOOD SPECIMENOrdering Facility: [facility] Address: [address] [place] [address] Performed By: #### 5 7021-8 ####[facility] LABCLIA [id number] [place] [address] Eosinophils (Bld) [#/Vol] 0.14 10*3/uL Normal <0.46 [facility] Comment on above: Order Comment: Speci men Type: BLOOD SPECIMENOrdering Facility: [facility] Address: [address] [place] [address] Performed By: #### 5 7021-8 ####[facility] LABCLIA [id number] [place] [address] Eosinophils/100 WBC (Bld) 4.2 % Normal [facility] Comment on above: Order Comment: Speci men Type: BLOOD SPECIMENOrdering Facility: [facility] Address: [address] [place] [address] Performed By: #### 5 7021-8 ####[facility] LABIA [id number] [place] [address] Erythrocyte distribution width (RBC) [Ratio] 15.4 % High 11.5-15.0 [facility] Comment on above: Order Comment: Speci men Type: BLOOD SPECIMENOrdering Facility: [facility] Address: [address] [place] [address] Performed By: #### 5 7021-8 ####[facility] LABCLIA [id number] [place] [address] Hematocrit (Bld) [Volume fraction] 38.0 % Normal 36.0-46.0 [facility] Comment on above: Order Comment: Speci men Type: BLOOD SPECIMENOrdering Facility: [facility] Address: [address] [place] [address] Performed By: #### 5 7021-8 ####[facility] LABIA [id number] [place] [address] Hemoglobin (Bld) [Mass/Vol] 12.0 g/dL Normal 11.5-15.5 [facility] Comment on above: Order Comment: Speci men Type: BLOOD SPECIMENOrdering Facility: [facility] Address: [address] [place] [address] Performed By: #### 5 7021-8 ####[facility] LABCLIA [id number] [place] [address] IMMATURE GRAN % 0.3 % Normal [facility] Comment on above: Order Comment: Speci men Type: BLOOD SPECIMENOrdering Facility: [facility] Address: [address] [place] [address] Performed By: #### 5 7021-8 ####[facility] LABCLIA [id number] [place] [address] IMMATURE GRAN ABS <0.03 Normal <0.10 [facility] Comment on above: Order Comment: Speci men Type: BLOOD SPECIMENOrdering Facility: [facility] Address: [address] [place] [address] Performed By: #### 5 7021-8 ####[facility] LABCLIA [id number] [place] [address] Lymphocytes (Bld) [#/Vol] 1.26 10*3/uL Normal 1.00-4.00 [facility] Comment on above: Order Comment: Speci men Type: BLOOD SPECIMENOrdering Facility: [facility] Address: [address] [place] [address] Performed By: #### 5 7021-8 ####[facility] LABIA [id number] [place] [address] Lymphocytes/100 WBC (Bld) 38.1 % Normal [facility] Comment on above: Order Comment: Speci men Type: BLOOD SPECIMENOrdering Facility: [facility] Address: [address] [place] [address] Performed By: #### 5 7021-8 ####[facility] LABCLIA [id number] [place] [address] MCH (RBC) [Entitic mass] 27.9 pg Normal 26.0-34.0 [facility] Comment on above: Order Comment: Speci men Type: BLOOD SPECIMENOrdering Facility: [facility] Address: [address] [place] [address] Performed By: #### 5 7021-8 ####[facility] LABCLIA [id number] [place] [address] MCHC (RBC) [Mass/Vol] 31.6 g/dL Normal 30.5-36.0 [facility] Comment on above: Order Comment: Speci men Type: BLOOD SPECIMENOrdering Facility: [facility] Address: [address] [place] [address] Performed By: #### 5 7021-8 ####[facility] LABCLIA [id number] [place] [address] MCV (RBC) [Entitic vol] 88.4 fL Normal 80.0-100.0 [facility] Comment on above: Order Comment: Speci men Type: BLOOD SPECIMENOrdering Facility: [facility] Address: [address] [place] [address] Performed By: #### 5 7021-8 ####[facility] LABCLIA [id number] [place] [address] Monocytes (Bld) [#/Vol] 0.43 10*3/uL Normal <0.87 [facility] Comment on above: Order Comment: Speci men Type: BLOOD SPECIMENOrdering Facility: [facility] Address: [address] [place] [address] Performed By: #### 5 7021-8 ####[facility] LABCLIA [id number] [place] [address] Monocytes/100 WBC (Bld) 13.0 % Normal [facility] Comment on above: Order Comment: Speci men Type: BLOOD SPECIMENOrdering Facility: [facility] Address: [address] [place] [address] Performed By: #### 5 7021-8 ####[facility] LABCLIA [id number] [place] [address] Neutrophils (Bld) [#/Vol] 1.44 10*3/uL Low 1.45-7.50 [facility] Comment on above: Order Comment: Speci men Type: BLOOD SPECIMENOrdering Facility: [facility] Address: [address] [place] [address] Performed By: #### 5 7021-8 ####[facility] LABCLIA [id number] [place] [address] Neutrophils/100 WBC (Bld) 43.5 % Normal [facility] Comment on above: Order Comment: Speci men Type: BLOOD SPECIMENOrdering Facility: [facility] Address: [address] [place] [address] Performed By: #### 5 7021-8 ####[facility] LABCLIA [id number] [place] [address] Nucleated RBC (Bld) [#/Vol] 10*3/uL Normal <0.01 [facility] Comment on above: Order Comment: Speci men Type: BLOOD SPECIMENOrdering Facility: [facility] Address: [address] [place], [place] [address] Performed By: #### 5 7021-8 ####[facility] LABCLIA [id number] [place] [address] Nucleated RBC/100 WBC (Bld) [Ratio] 0.0 /100 WBC Normal [facility] Comment on above: Order Comment: Speci men Type: BLOOD SPECIMENOrdering Facility: [facility] Address: [address] [place], [place] [address] Performed By: #### 5 7021-8 ####[facility] LABCLIA [id number] [place] [address] Platelet mean volume (Bld) [Entitic vol] 9.5 fL Normal 9.0-12.7 [facility] Comment on above: Order Comment: Speci men Type: BLOOD SPECIMENOrdering Facility: [facility] Address: [address] [place] [address] Performed By: #### 5 7021-8 ####[facility] LABIA [id number] [place] [address] Platelets (Bld) [#/Vol] 239 10*3/uL Normal 150-400 [facility] Comment on above: Order Comment: Speci men Type: BLOOD SPECIMENOrdering Facility: [facility] Address: [address] [place] [address] Performed By: #### 5 7021-8 ####[facility] LABIA [id number] [place] [address] RBC (Bld) [#/Vol] 4.30 10*6/uL Normal 3.90-5.20 [facility] Comment on above: Order Comment: Speci men Type: BLOOD SPECIMENOrdering Facility: [facility] Address: [address] [place] [address] Performed By: #### 5 7021-8 ####[facility] LABIA [id number] [place] [address] WBC (Bld) [#/Vol] 3.31 10*3/uL Low 3.70-11.00 [facility] Comment on above: Order Comment: Speci men Type: BLOOD SPECIMENOrdering Facility: [facility] Address: [address] [place] [address] Performed By: #### 5 7021-8 ####[facility] LABIA [id number] [place] [address] CNOVSPon 11-10-2021 CNOVSP Visit (SP) Office ([facility]) NEEL GARCIA ([id number]) 1980 F Date Time Provider Department 11/10/21 [...] born in [place] and has lived in [place] in the past. She reports occasional smoking - cigars that are dipped in cognac - last use a month back. Occasional alcohol use. No other substance abuse reported. She lives with her with 5 children. She is not working now but used to work at [employer] (was laid off during ). MEDICATIONS AND [...] which included preparing to see the patient, [id number] patient care, completing clinical documentation, obtaining and/or reviewing separately obtained history, performing a medically appropriate examination, counseling and educating the patient/family/careg iver, ordering medications, tests, or pro (more content not included)... Normal [facility] Comprehensive metabolic 2000 panelon 11-10-2021 Albumin [Mass/Vol] 4.1 g/dL Normal 3.9-4.9 [facility] Comment on above: Order Comment: Speci men Type: BLOOD SPECIMENOrdering Facility: [facility] Address: [address] [place] [address] Performed By: #### 2 4323-8 ####[facility] LABCLIA [id number] [place] [address] ALP [Catalytic activity/Vol] 64 U/L Normal 34-123 [facility] Comment on above: Order Comment: Speci men Type: BLOOD SPECIMENOrdering Facility: [facility] Address: [address] [place] [address] Performed By: #### 2 4323-8 ####[facility] LABCLIA [id number] [place] [address] ALT [Catalytic activity/Vol] 26 U/L Normal 7-38 [facility] Comment on above: Order Comment: Speci men Type: BLOOD SPECIMENOrdering Facility: [facility] Address: [address] [place] [address] Performed By: #### 2 4323-8 ####[facility] LABCLIA [id number] [place] [address] Anion gap [Moles/Vol] 8 mmol/L Low 9-18 [facility] Comment on above: Order Comment: Speci men Type: BLOOD SPECIMENOrdering Facility: [facility] Address: [address] [place] [address] Performed By: #### 2 4323-8 ####[facility] LABCLIA [id number] [place] [address] AST [Catalytic activity/Vol] 22 U/L Normal 13-35 [facility] Comment on above: Order Comment: Speci men Type: BLOOD SPECIMENOrdering Facility: [facility] Address: [address] [place] [address] Performed By: #### 2 4323-8 ####[facility] LABCLIA [id number] [place] [address] Bilirubin [Mass/Vol] 0.6 mg/dL Normal 0.2-1.3 [facility] Comment on above: Order Comment: Speci men Type: BLOOD SPECIMENOrdering Facility: [facility] Address: [address] [place] [address] Performed By: #### 2 4323-8 ####[facility] LABCLIA [id number] [place] [address] Calcium [Mass/Vol] 9.3 mg/dL Normal 8.5-10.2 [facility] Comment on above: Order Comment: Speci men Type: BLOOD SPECIMENOrdering Facility: [facility] Address: [address] [place] [address] Performed By: #### 2 4323-8 ####[facility] LABCLIA [id number] [place] [address] Chloride [Moles/Vol] 107 mmol/L High 97-105 [facility] Comment on above: Order Comment: Speci men Type: BLOOD SPECIMENOrdering Facility: [facility] Address: [address] [place] [address] Performed By: #### 2 4323-8 ####[facility] LABCLIA [id number] [place] [address] CO2 [Moles/Vol] 27 mmol/L Normal 22-30 [facility] Comment on above: Order Comment: Speci men Type: BLOOD SPECIMENOrdering Facility: [facility] Address: [address] [address] Performed By: #### 2 4323-8 ####[facility] LABCLIA [id number] [place] [address] Creatinine [Mass/Vol] 0.91 mg/dL Normal 0.58-0.96 [facility] Comment on above: Order Comment: Speci men Type: BLOOD SPECIMENOrdering Facility: [facility] Address: [address] [place], [place] [address] Performed By: #### 2 4323-8 ####[facility] LABCLIA [id number] [place] [address] ESTIMATED GLOMERULAR FILTRATION RATE 80 mL/min/1.73m??? Normal >=60 [facility] Comment on above: Order Comment: Speci men Type: BLOOD SPECIMENOrdering Facility: [facility] Address: [address] [place] [address] Result Comment: Mari mated Glomerular Filtration Rate [...] actual GFR. Performed By: #### 2 4323-8 ####[facility] LABCLIA [id number] [place] [address] Glucose [Mass/Vol] 102 mg/dL High 74-99 [facility] Comment on above: Order Comment: Speci men Type: BLOOD SPECIMENOrdering Facility: [facility] Address: [address] [place] [address] Result Comment: The [place] [employer] (ADA) provides guidance for cutoff [...] Standards of Medical Care in Diabetes 2016, [place] [employer]. Diabetes Care. 2016.39(Suppl 1). Performed By: #### 2 4323-8 ####[facility] LABCLIA [id number] [place] [address] Potassium [Moles/Vol] 4.0 mmol/L Normal 3.7-5.1 [facility] Comment on above: Order Comment: Speci men Type: BLOOD SPECIMENOrdering Facility: [facility] Address: [address] [place] [address] Performed By: #### 2 4323-8 ####[facility] LABCLIA [id number] [place] [address] Protein [Mass/Vol] 6.6 g/dL Normal 6.3-8.0 [facility] Comment on above: Order Comment: Speci men Type: BLOOD SPECIMENOrdering Facility: [facility] Address: [address] [place] [address] Performed By: #### 2 4323-8 ####[facility] LABCLIA [id number] [place] [address] Sodium [Moles/Vol] 142 mmol/L Normal 136-144 [facility] Comment on above: Order Comment: Speci men Type: BLOOD SPECIMENOrdering Facility: [facility] Address: [address] [place] [address] Performed By: #### 2 4323-8 ####[facility] LABCLIA [id number] [place] [address] Urea nitrogen [Mass/Vol] 13 mg/dL Normal 7-21 [facility] Comment on above: Order Comment: Speci men Type: BLOOD SPECIMENOrdering Facility: [facility] Address: [address] [place] [address] Performed By: #### 2 4323-8 ####[facility] LABCLIA [id number] [place] [address] Ferritin SerPl-mCncon 2021 Ferritin [Mass/Vol] 198.0 ng/mL Normal 14.7-205.1 [facility] Comment on above: Order Comment: Speci men Type: BLOOD SPECIMENOrdering Facility: [facility] Address: [address] [place] [address] Performed By: #### 2 276-4 ####[facility] LABCLIA [id number] [place] [address] [place] Iron and Iron binding capaci ty panelon 11-10-2021 Iron [Mass/Vol] 62 ug/dL Normal 41-186 [facility] Comment on above: Order Comment: Speci men Type: BLOOD SPECIMENOrdering Facility: [facility] Address: [address] [place], [place] [address] Performed By: #### 5 0190-8 ####[facility] LABCLIA [id number] [place] [address] [place] Iron binding capacity [Mass/Vol] 311 ug/dL Normal 232-386 [facility] Comment on above: Order Comment: Speci men Type: BLOOD SPECIMENOrdering Facility: [facility] Address: [address] [place], [place] [address] Performed By: #### 5 0190-8 ####[facility] LABCLIA [id number] [place] [address] [place] Iron/TIBC [Molar ratio] 19.9 % Normal 15.0-57.0 [facility] Comment on above: Order Comment: Speci men Type: BLOOD SPECIMENOrdering Facility: [facility] Address: [address] [place] [address] Performed By: #### 5 0190-8 ####[facility] LABCLIA [id number] [facility] [id number] [id number] [place] CBC W Auto Differential pane l (Bld)on 10-06-2021 Basophils (Bld) [#/Vol] 0.04 10*3/uL Normal <0.11 [facility] Comment on above: Order Comment: Speci men Type: BLOOD SPECIMENOrdering Facility: [facility] Address: [address] [place] [address] Performed By: #### 5 7021-8 ####[facility] LABCLIA [id number] [place] [address] Basophils/100 WBC (Bld) 1.0 % Normal [facility] Comment on above: Order Comment: Speci men Type: BLOOD SPECIMENOrdering Facility: [facility] Address: [address] [place] [address] Performed By: #### 5 7021-8 ####[facility] LABCLIA [id number] [place] [address] Differential cell count method Nom (Bld) Auto Normal [facility] Comment on above: Order Comment: Speci men Type: BLOOD SPECIMENOrdering Facility: [facility] Address: [address] [place], [place] [address] Performed By: #### 5 7021-8 ####[facility] LABCLIA [id number] [place] [address] Eosinophils (Bld) [#/Vol] 0.21 10*3/uL Normal <0.46 [facility] Comment on above: Order Comment: Speci men Type: BLOOD SPECIMENOrdering Facility: [facility] Address: [address] [place], [place] [address] Performed By: #### 5 7021-8 ####[facility] LABCLIA [id number] [place] [address] Eosinophils/100 WBC (Bld) 5.3 % Normal [facility] Comment on above: Order Comment: Speci men Type: BLOOD SPECIMENOrdering Facility: [facility] Address: [address] [place] [address] Performed By: #### 5 7021-8 ####[facility] LABCLIA [id number] [place] [address] Erythrocyte distribution width (RBC) [Ratio] 14.1 % Normal 11.5-15.0 [facility] Comment on above: Order Comment: Speci men Type: BLOOD SPECIMENOrdering Facility: [facility] Address: [address] [place] [address] Performed By: #### 5 7021-8 ####[facility] LABCLIA [id number] [place] [address] Hematocrit (Bld) [Volume fraction] 38.1 % Normal 36.0-46.0 [facility] Comment on above: Order Comment: Speci men Type: BLOOD SPECIMENOrdering Facility: [facility] Address: [address] [place] [address] Performed By: #### 5 7021-8 ####[facility] LABCLIA [id number] [place] [address] Hemoglobin (Bld) [Mass/Vol] 12.2 g/dL Normal 11.5-15.5 [facility] Comment on above: Order Comment: Speci men Type: BLOOD SPECIMENOrdering Facility: [facility] Address: [address] [place] [address] Performed By: #### 5 7021-8 ####[facility] LABCLIA [id number] [place] [address] IMMATURE GRAN % 0.3 % Normal [facility] Comment on above: Order Comment: Speci men Type: BLOOD SPECIMENOrdering Facility: [facility] Address: [address] [place] [address] Performed By: #### 5 7021-8 ####[facility] LABCLIA [id number] [place] [address] IMMATURE GRAN ABS <0.03 Normal <0.10 [facility] Comment on above: Order Comment: Speci men Type: BLOOD SPECIMENOrdering Facility: [facility] Address: [address] [place] [address] Performed By: #### 5 7021-8 ####[facility] LABCLIA [id number] [place] [address] Lymphocytes (Bld) [#/Vol] 1.37 10*3/uL Normal 1.00-4.00 [facility] Comment on above: Order Comment: Speci men Type: BLOOD SPECIMENOrdering Facility: [facility] Address: [address] [place] [address] Performed By: #### 5 7021-8 ####[facility] LABIA [id number] [place] [address] Lymphocytes/100 WBC (Bld) 34.3 % Normal [facility] Comment on above: Order Comment: Speci men Type: BLOOD SPECIMENOrdering Facility: [facility] Address: [address] [place] [address] Performed By: #### 5 7021-8 ####[facility] LABCLIA [id number] [place] [address] MCH (RBC) [Entitic mass] 27.2 pg Normal 26.0-34.0 [facility] Comment on above: Order Comment: Speci men Type: BLOOD SPECIMENOrdering Facility: [facility] Address: [address] [place] [address] Performed By: #### 5 7021-8 ####[facility] LABCLIA [id number] [place] [address] MCHC (RBC) [Mass/Vol] 32.0 g/dL Normal 30.5-36.0 [facility] Comment on above: Order Comment: Speci men Type: BLOOD SPECIMENOrdering Facility: [facility] Address: [address] [place] [address] Performed By: #### 5 7021-8 ####[facility] LABCLIA [id number] [place] [address] MCV (RBC) [Entitic vol] 85.0 fL Normal 80.0-100.0 [facility] Comment on above: Order Comment: Speci men Type: BLOOD SPECIMENOrdering Facility: [facility] Address: [address] [place] [address] Performed By: #### 5 7021-8 ####[facility] LABCLIA [id number] [place] [address] Monocytes (Bld) [#/Vol] 0.46 10*3/uL Normal <0.87 [facility] Comment on above: Order Comment: Speci men Type: BLOOD SPECIMENOrdering Facility: [facility] Address: [address] [place] [address] Performed By: #### 5 7021-8 ####[facility] LABCLIA [id number] [place] [address] Monocytes/100 WBC (Bld) 11.5 % Normal [facility] Comment on above: Order Comment: Speci men Type: BLOOD SPECIMENOrdering Facility: [facility] Address: [address] [place] [address] Performed By: #### 5 7021-8 ####[facility] LABCLIA [id number] [place] [address] Neutrophils (Bld) [#/Vol] 1.91 10*3/uL Normal 1.45-7.50 [facility] Comment on above: Order Comment: Speci men Type: BLOOD SPECIMENOrdering Facility: [facility] Address: [address] [place] [address] Performed By: #### 5 7021-8 ####[facility] LABCLIA [id number] [place] [address] Neutrophils/100 WBC (Bld) 47.6 % Normal [facility] Comment on above: Order Comment: Speci men Type: BLOOD SPECIMENOrdering Facility: [facility] Address: [address] [place] [address] Performed By: #### 5 7021-8 ####[facility] LABCLIA [id number] [place] [address] Nucleated RBC (Bld) [#/Vol] 10*3/uL Normal <0.01 [facility] Comment on above: Order Comment: Speci men Type: BLOOD SPECIMENOrdering Facility: [facility] Address: [address] [place] [address] Performed By: #### 5 7021-8 ####[facility] LABIA [id number] [place] [address] Nucleated RBC/100 WBC (Bld) [Ratio] 0.0 /100 WBC Normal [facility] Comment on above: Order Comment: Speci men Type: BLOOD SPECIMENOrdering Facility: [facility] Address: [address] [place] [address] Performed By: #### 5 7021-8 ####[facility] LABIA [id number] [place] [address] Platelet mean volume (Bld) [Entitic vol] 9.6 fL Normal 9.0-12.7 [facility] Comment on above: Order Comment: Speci men Type: BLOOD SPECIMENOrdering Facility: [facility] Address: [address] [place] [address] Performed By: #### 5 7021-8 ####[facility] LABIA [id number] [place] [address] Platelets (Bld) [#/Vol] 265 10*3/uL Normal 150-400 [facility] Comment on above: Order Comment: Speci men Type: BLOOD SPECIMENOrdering Facility: [facility] Address: [address] [place] [address] Performed By: #### 5 7021-8 ####[facility] LABCLIA [id number] [place] [address] RBC (Bld) [#/Vol] 4.48 10*6/uL Normal 3.90-5.20 [facility] Comment on above: Order Comment: Speci men Type: BLOOD SPECIMENOrdering Facility: [facility] Address: [address] [place] [address] Performed By: #### 5 7021-8 ####[facility] LABCLIA [id number] [place] [address] WBC (Bld) [#/Vol] 4.00 10*3/uL Normal 3.70-11.00 [facility] Comment on above: Order Comment: Speci men Type: BLOOD SPECIMENOrdering Facility: [facility] Address: [address] [place] [address] Performed By: #### 5 7021-8 ####[facility] LABCLIA [id number] [place] [address] Abs Immature Gran <0.03 <0.10 k/uL [facility] Basophils (Bld) [#/Vol] 0.04 10*3/uL <0.11 k/uL [facility] Basophils/100 WBC (Bld) 1.0 % [facility] Differential cell count method Nom (Bld) Auto [facility] Eosinophils (Bld) [#/Vol] 0.21 10*3/uL <0.46 k/uL [facility] Eosinophils/100 WBC (Bld) 5.3 % [facility] Erythrocyte distribution width (RBC) [Ratio] 14.1 % 11.5 - 15.0 % [facility] Hematocrit (Bld) [Volume fraction] 38.1 % 36.0 - 46.0 % [facility] Hemoglobin (Bld) [Mass/Vol] 12.2 g/dL 11.5 - 15.5 g/dL [facility] Immature Gran % 0.3 % [facility] Lymphocytes (Bld) [#/Vol] 1.37 10*3/uL 1.00 - 4.00 k/uL [facility] Lymphocytes/100 WBC (Bld) 34.3 % [facility] MCH (RBC) [Entitic mass] 27.2 pg 26.0 - 34.0 pg [facility] MCHC (RBC) [Mass/Vol] 32.0 g/dL 30.5 - 36.0 g/dL [facility] MCV (RBC) [Entitic vol] 85.0 fL 80.0 - 100.0 fL [facility] Monocytes (Bld) [#/Vol] 0.46 10*3/uL <0.87 k/uL [facility] Monocytes/100 WBC (Bld) 11.5 % C [facility] Neutrophils (Bld) [#/Vol] 1.91 10*3/uL 1.45 - 7.50 k/uL [facility] Neutrophils/100 WBC (Bld) 47.6 % [facility] Nucleated RBC (Bld) [#/Vol] 10*3/uL <0.01 k/uL [facility] Nucleated RBC/100 WBC (Bld) [Ratio] 0.0 /100 WBC [facility] Platelet mean volume (Bld) [Entitic vol] 9.6 fL 9.0 - 12.7 fL [facility] Platelets (Bld) [#/Vol] 265 10*3/uL 150 - 400 k/uL [facility] RBC (Bld) [#/Vol] 4.48 10*6/uL 3.90 - 5.2 0 m/uL [facility] WBC (Bld) [#/Vol] 4.00 10*3/uL 3.70 - 11. 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 During your visit today, we recorded the following information about you: Vika Parrish Toya Pulido 10/06/2021 1:14 PM Signed 1st report of treatment-Non oncology regimen (Monoferric) Patient has [place] [employer] therefore no FA is required Allergies As of Date: 10/06/2021 (No Known Allergies) Date Reviewed: 10/06/2021 Reviewed by: Arleth Bangura RN - Fully Assessed Reason for Visit: Benefits Investigation [0830] Prescriptions as of 10/06/2021 - SUMAtriptan (IMITREX) [...] 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] 09/29/2021 Encounter Status:Closed by [facility], VIKA Parrish on 10/06/21 Normal [facility] Ferritin SerPl-mCncon 2021 Ferritin [Mass/Vol] 24.6 ng/mL Normal 14.7-205.1 [facility] Comment on above: Order Comment: Speci men Type: BLOOD SPECIMENOrdering Facility: [facility] Address: [address] [place] [address] [place] [address] Performed By: #### 2 276-4, 52288-7 ####[facility] LABIA [id number] [address] [place] Iron and Iron binding capaci ty panelon 10-06-2021 Iron [Mass/Vol] 33 ug/dL Low 41-186 [facility] Comment on above: Order Comment: Speci men Type: BLOOD SPECIMENOrdering Facility: [facility] Address: [address] [place] [address] Performed By: #### 2 276-4, 90597-3 ####[facility] LABIA [id number] [address] Iron binding capacity [Mass/Vol] 426 ug/dL High 232-386 [facility] Comment on above: Order Comment: Speci men Type: BLOOD SPECIMENOrdering Facility: [facility] Address: [address] [place] [address] Performed By: #### 2 276-4, 58784-2 ####[facility] [id number] [address] Iron/TIBC [Molar ratio] 7.7 % Low 15.0-57.0 [facility] Comment on above: Order Comment: Speci men Type: BLOOD SPECIMENOrdering Facility: [facility] Address: [address] [place] [address] Performed By: #### 2 276-4, 65769-3 ####[facility] LABIA [id number] [address] [place] Rhiannon 09-29-2021 PREM Telephone (HEMASA) NEEL GARCIA ([id number]) 1980 F Date Time Provider Department 09/29/21 [...] Status:Closed by PAOLO WARD on 09/29/21 Normal [facility] CBC W Auto Differential pane l (Bld)on 09-28-2021 Basophils (Bld) [#/Vol] 0.04 10*3/uL Normal <0.11 [facility] Comment on above: Order Comment: Speci men Type: BLOOD SPECIMENOrdering Facility: [facility] Address: [address] [place] [address] Performed By: #### 1 4196-0, 15639-4 ####[facility] LABCLIA [id number] [place] [address] Basophils/100 WBC (Bld) 0.8 % Normal [facility] Comment on above: Order Comment: Speci men Type: BLOOD SPECIMENOrdering Facility: [facility] Address: [address] [place] [address] Performed By: #### 1 4196-0, 19173-6 ####[facility] LABCLIA [id number] [place] [address] Differential cell count method Nom (Bld) Auto Normal [facility] Comment on above: Order Comment: Speci men Type: BLOOD SPECIMENOrdering Facility: [facility] Address: [address] [place] [address] Performed By: #### 1 4196-0, ####[facility] LABCLIA [id number] [place] [address] Eosinophils (Bld) [#/Vol] 0.27 10*3/uL Normal <0.46 [facility] Comment on above: Order Comment: Speci men Type: BLOOD SPECIMENOrdering Facility: [facility] Address: [address] [place] [address] Performed By: #### 1 4196-0, ####[facility] LABCLIA [id number] [place] [address] Eosinophils/100 WBC (Bld) 5.6 % Normal [facility] Comment on above: Order Comment: Speci men Type: BLOOD SPECIMENOrdering Facility: [facility] Address: [address] [place] [address] Performed By: #### 1 4196-0, 38739-4 ####[facility] LABCLIA [id number] [place] [address] Erythrocyte distribution width (RBC) [Ratio] 13.7 % Normal 11.5-15.0 [facility] Comment on above: Order Comment: Speci men Type: BLOOD SPECIMENOrdering Facility: [facility] Address: [address] [place] [address] Performed By: #### 1 4196-0, 10991-3 ####[facility] LABIA [id number] [place] [address] Hematocrit (Bld) [Volume fraction] 37.2 % Normal 36.0-46.0 [facility] Comment on above: Order Comment: Speci men Type: BLOOD SPECIMENOrdering Facility: [facility] Address: [address] [place] [address] Performed By: #### 1 4196-0, 23331-7 ####[facility] LABIA [id number] [place] [address] Hemoglobin (Bld) [Mass/Vol] 11.8 g/dL Normal 11.5-15.5 [facility] Comment on above: Order Comment: Speci men Type: BLOOD SPECIMENOrdering Facility: [facility] Address: [address] [place] [address] Performed By: #### 1 4196-0, 29022-1 ####[facility] LABIA [id number] [place] [address] IMMATURE GRAN % 0.2 % Normal [facility] Comment on above: Order Comment: Speci men Type: BLOOD SPECIMENOrdering Facility: [facility] Address: [address] [place] [address] Performed By: #### 1 4196-0, 46728-7 ####[facility] LABIA [id number] [place] [address] IMMATURE GRAN ABS <0.03 Normal <0.10 [facility] Comment on above: Order Comment: Speci men Type: BLOOD SPECIMENOrdering Facility: [facility] Address: [address] [place] [address] Performed By: #### 1 4196-0, 54019-7 ####[facility] LABCLIA [id number] [place] [address] Lymphocytes (Bld) [#/Vol] 1.88 10*3/uL Normal 1.00-4.00 [facility] Comment on above: Order Comment: Speci men Type: BLOOD SPECIMENOrdering Facility: [facility] Address: [address] [place] [address] Performed By: #### 1 4196-0, 89478-6 ####[facility] LABIA [id number] [place] [address] Lymphocytes/100 WBC (Bld) 38.9 % Normal [facility] Comment on above: Order Comment: Speci men Type: BLOOD SPECIMENOrdering Facility: [facility] Address: [address] [place] [address] Performed By: #### 1 4196-0, 39455-9 ####[facility] LABIA [id number] [place] [address] MCH (RBC) [Entitic mass] 27.3 pg Normal 26.0-34.0 [facility] Comment on above: Order Comment: Speci men Type: BLOOD SPECIMENOrdering Facility: [facility] Address: [address] [place] [address] Performed By: #### 1 4196-0, 88637-4 ####[facility] LABIA [id number] [place] [address] MCHC (RBC) [Mass/Vol] 31.7 g/dL Normal 30.5-36.0 [facility] Comment on above: Order Comment: Speci men Type: BLOOD SPECIMENOrdering Facility: [facility] Address: [address] [place] [address] Performed By: #### 1 4196-0, 96923-6 ####[facility] LABCLIA [id number] [place] [address] MCV (RBC) [Entitic vol] 85.9 fL Normal 80.0-100.0 [facility] Comment on above: Order Comment: Speci men Type: BLOOD SPECIMENOrdering Facility: [facility] Address: [address] [place] [address] Performed By: #### 1 4196-0, 42550-9 ####[facility] LABCLIA [id number] [place] [address] Monocytes (Bld) [#/Vol] 0.56 10*3/uL Normal <0.87 [facility] Comment on above: Order Comment: Speci men Type: BLOOD SPECIMENOrdering Facility: [facility] Address: [address] [place] [address] Performed By: #### 1 4196-0, 41077-2 ####[facility] LABCLIA [id number] [place] [address] Monocytes/100 WBC (Bld) 11.6 % Normal [facility] Comment on above: Order Comment: Speci men Type: BLOOD SPECIMENOrdering Facility: [facility] Address: [address] [place] [address] Performed By: #### 1 4196-0, 53288-7 ####[facility] LABCLIA [id number] [place] [place] [address] Neutrophils (Bld) [#/Vol] 2.07 10*3/uL Normal 1.45-7.50 [facility] Comment on above: Order Comment: Speci men Type: BLOOD SPECIMENOrdering Facility: [facility] Address: [address] [place] [address] Performed By: #### 1 4196-0, 67790-1 ####[facility] LABCLIA [id number] [place] [address] Neutrophils/100 WBC (Bld) 42.9 % Normal [facility] Comment on above: Order Comment: Speci men Type: BLOOD SPECIMENOrdering Facility: [facility] Address: [address] [place], [place] [address] Performed By: #### 1 4196-0, 41889-2 ####[facility] LABIA [id number] [place] [address] Nucleated RBC (Bld) [#/Vol] 10*3/uL Normal <0.01 [facility] Comment on above: Order Comment: Speci men Type: BLOOD SPECIMENOrdering Facility: [facility] Address: [address] [place] [address] Performed By: #### 1 4196-0, 21507-1 ####[facility] LABIA [id number] [place] [address] Nucleated RBC/100 WBC (Bld) [Ratio] 0.0 /100 WBC Normal [facility] Comment on above: Order Comment: Speci men Type: BLOOD SPECIMENOrdering Facility: [facility] Address: [address] [place] [address] Performed By: #### 1 4196-0, 58296-9 ####[facility] LABIA [id number] [place] [address] Platelet mean volume (Bld) [Entitic vol] 9.6 fL Normal 9.0-12.7 [facility] Comment on above: Order Comment: Speci men Type: BLOOD SPECIMENOrdering Facility: [facility] Address: [address] [place], [place] [address] Performed By: #### 1 4196-0, 48469-3 ####[facility] LABIA [id number] [place] [address] Platelets (Bld) [#/Vol] 234 10*3/uL Normal 150-400 [facility] Comment on above: Order Comment: Speci men Type: BLOOD SPECIMENOrdering Facility: [facility] Address: [address] [place], [place] [address] Performed By: #### 1 4196-0, 67266-6 ####[facility] LABIA [id number] [place] [address] RBC (Bld) [#/Vol] 4.33 10*6/uL Normal 3.90-5.20 [facility] Comment on above: Order Comment: Speci men Type: BLOOD SPECIMENOrdering Facility: [facility] Address: [address] [place] [address] Performed By: #### 1 4196-0, 24209-1 ####[facility] LABIA [id number] [place] [address] WBC (Bld) [#/Vol] 4.83 10*3/uL Normal 3.70-11.00 [facility] Comment on above: Order Comment: Speci men Type: BLOOD SPECIMENOrdering Facility: [facility] Address: [address] [place] [address] Performed By: #### 1 4196-0, 91460-8 ####[facility] LABIA [id number] [place] [address] CNOVSPon 09-28-2021 CNOVS Visit (SP) Office ([facility]) NEEL GARCIA ([id number]) 1980 F Date Time Provider Department 09/28/21 [...] born in [place] and has lived in [place] in the past. She reports occasional smoking - cigars that are dipped in cognac - last use a month back. Occasional alcohol use. No other substance abuse reported. She lives with her with 5 children. She is not working now but used to work at [employer] (was laid off during ID-). MEDICATIONS AND [...] which included preparing to see the patient, ucmu-yf-lmga patient care, completing clinical documentation, obtaining and/or reviewing separately obtained history, performing a medically appropriate examination, counseling and educating the patient/family/careg iver, ordering medications, tests, or procedures, independently interpreting results (not separately reported) and communicating results to the patient/family/careg iver. CC: Blade Bryan (more content not included)... Normal [facility] FERRITIN BLDon 09-28-2021 Ferritin [Mass/Vol] 22.9 ng/mL Normal 14.7-205.1 [facility] Comment on above: Order Comment: Speci men Type: BLOOD SPECIMENOrdering Facility: [facility] Address: [address] [place], [place] [address] Performed By: #### Jerrell GARDNER, FERR ####[facility] LABCLIA [id number] [address] [facility] IRON + TIBCon 09-28-2021 Iron [Mass/Vol] 44 ug/dL Normal 41-186 [facility] Comment on above: Order Comment: Speci men Type: BLOOD SPECIMENOrdering Facility: [facility] Address: [address] [place], [place] [address] Performed By: #### I KENDRA, FERR ####[facility] LABCLIA [id number] [address] [facility] Iron binding capacity [Mass/Vol] 415 ug/dL High 232-386 [facility] Comment on above: Order Comment: Speci men Type: BLOOD SPECIMENOrdering Facility: [facility] Address: [address] [place], [place] [address] Performed By: #### Jerrell GARDNER, FERR ####[facility] LABIA [id number] [address] [facility] Iron/TIBC [Molar ratio] 11 % Low 15-57 [facility] Comment on above: Order Comment: Speci men Type: BLOOD SPECIMENOrdering Facility: [facility] Address: [address] [place], [place] [address] Performed By: #### Jerrell GARDNER, FERR ####[facility] LABIA [id number] [place] [address] [place] Retics #on 09-28-2021 Reticulocytes (Bld) [#/Vol] 0.42093 10*3/uL Normal 0.018-0.100 [facility] Comment on above: Order Comment: Speci men Type: BLOOD SPECIMENOrdering Facility: [facility] Address: [address] [place], [place] [address] Performed By: #### 1 4196-0, 32964-6 ####[facility] LABCLIA [id number] [place] [address] Reticulocytes (Bld) [#/Vol]o n 09-28-2021 Reticulocytes/100 RBC (Bld) 1.0 % Normal 0.4-2.0 [facility] Comment on above: Order Comment: Speci men Type: BLOOD SPECIMENOrdering Facility: [facility] Address: [facility] [place] [address] Performed By: #### 1 4196-0, 96291-3 ####[facility] LABCLIA [id number] [place] [address] HCG,Quantitativeon 2 HCG,Quantitative < 0.60 Normal [facility] Comment on above: Result Comment: Appr oximate Approximate hCG Gestational Age Range (mIU/ml) (weeks) 0.2-1 5-50 1-2 50-500 2-3 100-5,000 3-4 500-10,000 4-5 1,000-50,000 5-6 10,000-100,000 6-8 15,000-200,000 8-12 10,000-100,000 PERFORMED BY: [place] [address] PATHOLOGIST PAGINATOR EDIN MONTERROSO M.D. Performed By: #### H CGQNT #### [facility] [address] [place] [address] Serum or plasma beta choriog onadotropin measurement (units/volume)Ordered By: Bryan Quiros on 09-20-2021 HCG.beta subunit Qn m[IU]/mL [facility] Comment on above: Approximate Approxim ate hCG Gestational Age Range (mIU/ml) (weeks) 0.2-1 5-50 1-2 50-500 2-3 100-5,000 3-4 500-10,000 4-5 1,000-50,000 5-6 10,000-100,000 6-8 15,000-200,000 8-12 10,000-100,000 COVID-19 FRMCon 09-15-2021 SARS-CoV-2 (COVID-19) RNA JULEE+probe Ql (Unsp spec) Negative Normal Negative [facility] Comment on above: Order Comment: Healt hcare Worker?: N Result Comment: Testing for SARS-CoV-2 by RT-PCR This test was developed and its performance characteristics determined by [employer] ([place]) and validated at the [facility]. This test has not been FDA [...] is terminated or revoked sooner. PERFORMED BY: [place] [address] PATHOLOGIST PAGINATOR EDIN MONTERROSO M.D. Performed By: #### C OVID 19 [facility] #### [address] COVID-19 Positive/NegativeOr dered By: Bryan Quiros on 09-15-2021 SARS-CoV-2 (COVID-19) N gene JULEE+probe Ql (Resp) Negative Negative [facility] Comment on above: Testing for SARS-CoV -2 by RT-PCR This test was developed and its performance characteristics determined by [employer] ([place]) and validated at the [facility]. This test has not been FDA [...] Basophils (Bld) [#/Vol] 0.04 10*3/uL Normal <0.11 [facility] Comment on above: Order Comment: Speci men Type: BLOOD SPECIMENOrdering Facility: [facility] Address: [address] [place] [address] Performed By: #### 5 7021-8 ####[facility] LABCLIA [id number] [place] [address] Basophils/100 WBC (Bld) 1.0 % Normal [facility] Comment on above: Order Comment: Speci men Type: BLOOD SPECIMENOrdering Facility: [facility] Address: [address] [place] [address] Performed By: #### 5 7021-8 ####[facility] LABCLIA [id number] [place] [address] Differential cell count method Nom (Bld) Auto Normal [facility] Comment on above: Order Comment: Speci men Type: BLOOD SPECIMENOrdering Facility: [facility] Address: [address] [place] [address] Performed By: #### 5 7021-8 ####[facility] LABCLIA [id number] [place] [address] Eosinophils (Bld) [#/Vol] 0.18 10*3/uL Normal <0.46 [facility] Comment on above: Order Comment: Speci men Type: BLOOD SPECIMENOrdering Facility: [facility] Address: [address] [place] [address] Performed By: #### 5 7021-8 ####[facility] LABCLIA [id number] [place] [address] Eosinophils/100 WBC (Bld) 4.6 % Normal [facility] Comment on above: Order Comment: Speci men Type: BLOOD SPECIMENOrdering Facility: [facility] Address: [address] [place] [address] Performed By: #### 5 7021-8 ####[facility] LABCLIA [id number] [place] [address] Erythrocyte distribution width (RBC) [Ratio] 14.9 % Normal 11.5-15.0 [facility] Comment on above: Order Comment: Speci men Type: BLOOD SPECIMENOrdering Facility: [facility] Address: [address] [place] [address] Performed By: #### 5 7021-8 ####[facility] LABCLIA [id number] [place] [address] Hematocrit (Bld) [Volume fraction] 38.6 % Normal 36.0-46.0 [facility] Comment on above: Order Comment: Speci men Type: BLOOD SPECIMENOrdering Facility: [facility] Address: [address] [place] [address] Performed By: #### 5 7021-8 ####[facility] LABCLIA [id number] [place] [address] Hemoglobin (Bld) [Mass/Vol] 12.2 g/dL Normal 11.5-15.5 [facility] Comment on above: Order Comment: Speci men Type: BLOOD SPECIMENOrdering Facility: [facility] Address: [address] [place] [address] Performed By: #### 5 7021-8 ####[facility] LABCLIA [id number] [place] [address] IMMATURE GRAN % 0.3 % Normal [facility] Comment on above: Order Comment: Speci men Type: BLOOD SPECIMENOrdering Facility: [facility] Address: [address] [place] [address] Performed By: #### 5 7021-8 ####[facility] LABCLIA [id number] [place] [address] IMMATURE GRAN ABS <0.03 Normal <0.10 [facility] Comment on above: Order Comment: Speci men Type: BLOOD SPECIMENOrdering Facility: [facility] Address: [address] [place] [address] Performed By: #### 5 7021-8 ####[facility] LABIA [id number] [place] [address] Lymphocytes (Bld) [#/Vol] 1.57 10*3/uL Normal 1.00-4.00 [facility] Comment on above: Order Comment: Speci men Type: BLOOD SPECIMENOrdering Facility: [facility] Address: [address] [place] [address] Performed By: #### 5 7021-8 ####[facility] LABIA [id number] [place] [address] Lymphocytes/100 WBC (Bld) 40.4 % Normal [facility] Comment on above: Order Comment: Speci men Type: BLOOD SPECIMENOrdering Facility: [facility] Address: [address] [place] [address] Performed By: #### 5 7021-8 ####[facility] LABIA [id number] [place] [address] MCH (RBC) [Entitic mass] 27.2 pg Normal 26.0-34.0 [facility] Comment on above: Order Comment: Speci men Type: BLOOD SPECIMENOrdering Facility: [facility] Address: [address] [place] [address] Performed By: #### 5 7021-8 ####[facility] LABCLIA [id number] [place] [address] MCHC (RBC) [Mass/Vol] 31.6 g/dL Normal 30.5-36.0 [facility] Comment on above: Order Comment: Speci men Type: BLOOD SPECIMENOrdering Facility: [facility] Address: [address] [place] [address] Performed By: #### 5 7021-8 ####[facility] LABCLIA [id number] [place] [address] MCV (RBC) [Entitic vol] 86.2 fL Normal 80.0-100.0 [facility] Comment on above: Order Comment: Speci men Type: BLOOD SPECIMENOrdering Facility: [facility] Address: [address] [place] [address] Performed By: #### 5 7021-8 ####[facility] LABCLIA [id number] [place] [address] Monocytes (Bld) [#/Vol] 0.43 10*3/uL Normal <0.87 [facility] Comment on above: Order Comment: Speci men Type: BLOOD SPECIMENOrdering Facility: [facility] Address: [address] [place] [address] Performed By: #### 5 7021-8 ####[facility] LABCLIA [id number] [place] [address] Monocytes/100 WBC (Bld) 11.1 % Normal [facility] Comment on above: Order Comment: Speci men Type: BLOOD SPECIMENOrdering Facility: [facility] Address: [address] [place] [address] Performed By: #### 5 7021-8 ####[facility] LABCLIA [id number] [place] [address] Neutrophils (Bld) [#/Vol] 1.66 10*3/uL Normal 1.45-7.50 [facility] Comment on above: Order Comment: Speci men Type: BLOOD SPECIMENOrdering Facility: [facility] Address: [address] [place] [address] Performed By: #### 5 7021-8 ####[facility] LABCLIA [id number] [place] [address] Neutrophils/100 WBC (Bld) 42.6 % Normal [facility] Comment on above: Order Comment: Speci men Type: BLOOD SPECIMENOrdering Facility: [facility] Address: [address] [place] [address] Performed By: #### 5 7021-8 ####[facility] LABCLIA [id number] [place] [address] Nucleated RBC (Bld) [#/Vol] 10*3/uL Normal <0.01 [facility] Comment on above: Order Comment: Speci men Type: BLOOD SPECIMENOrdering Facility: [facility] Address: [address] [place] [address] Performed By: #### 5 7021-8 ####[facility] LABCLIA [id number] [place] [address] Nucleated RBC/100 WBC (Bld) [Ratio] 0.0 /100 WBC Normal [facility] Comment on above: Order Comment: Speci men Type: BLOOD SPECIMENOrdering Facility: [facility] Address: [address] [place], [place] [address] Performed By: #### 5 7021-8 ####[facility] LABCLIA [id number] [place] [address] Platelet mean volume (Bld) [Entitic vol] 10.2 fL Normal 9.0-12.7 [facility] Comment on above: Order Comment: Speci men Type: BLOOD SPECIMENOrdering Facility: [facility] Address: [address] [place] [address] Performed By: #### 5 7021-8 ####[facility] LABCLIA [id number] [place] [address] Platelets (Bld) [#/Vol] 279 10*3/uL Normal 150-400 [facility] Comment on above: Order Comment: Speci men Type: BLOOD SPECIMENOrdering Facility: [facility] Address: [address] [place] [address] Performed By: #### 5 7021-8 ####[facility] LABIA [id number] [place] [address] RBC (Bld) [#/Vol] 4.48 10*6/uL Normal 3.90-5.20 [facility] Comment on above: Order Comment: Speci men Type: BLOOD SPECIMENOrdering Facility: [facility] Address: [address] [place] [address] Performed By: #### 5 7021-8 ####[facility] LABIA [id number] [place] [address] WBC (Bld) [#/Vol] 3.89 10*3/uL Normal 3.70-11.00 [facility] Comment on above: Order Comment: Speci men Type: BLOOD SPECIMENOrdering Facility: [facility] Address: [address] [place] [address] Performed By: #### 5 7021-8 ####[facility] LABIA [id number] [place] [address] CNOVSPon 08-14-2021 CNOVS Visit (SP) Office ([facility]) NEEL GARCIA ([id number]) 1980 F Date Time Provider Department 08/14/21 [...] born in [place] and has lived in [place] in the past. She reports occasional smoking - cigars that are dipped in cognac - last use a month back. Occasional alcohol use. No other substance abuse reported. She lives with her with 5 children. She is not working now but used to work at [employer] (was laid off during -). MEDICATIONS AND [...] which included preparing to see the patient, kuyy-qm-yisq patient care, completing clinical documentation, obtaining and/or reviewing separately obtained history, performing a medically appropriate examination, counseling and educating the patient/family/careg iver, ordering medications, tests, or procedures, independently interpreting results (not separately reported) and communicating results to the patient/family/careg iver. CC: Blade Crews . Referring Provider: PAOLO WARD [[id number]] Allergies As of Date: 08/14/2021 (No Known Allergies) Date Reviewed: 08/14/2021 Reviewed by: Aranza Mobley MA - Fully Assessed Reason for Visit: Anemia [6] Cmt: 1 month follow up Primary Visit Diagnosis:Iron deficiency anemia, unspecified iron deficiency anemia type [D50.9] Order(s):CBC + DIFF [SQCBCDIF] Order #: [id number] FUTURE RETIC C (more content not included)... Normal [facility] IRON + TIBCon 08-14-2021 Iron [Mass/Vol] 61 ug/dL Normal 41-186 [facility] Comment on above: Order Comment: Speci men Type: BLOOD SPECIMENOrdering Facility: [facility] Address: [address] [place] [address] Result Comment: Resu lts may be falsely increased due to interference from hemolysis. Suggest reorder as clinically indicated. Performed By: #### I KENDRA ####[facility] LABIA [id number] [address] Iron binding capacity [Mass/Vol] Normal [facility] Comment on above: Order Comment: Speci men Type: BLOOD SPECIMENOrdering Facility: [facility] Address: [address] [place] [address] Result Comment: Unab le to calculate due to hemolysis. Performed By: #### I KENDRA ####[facility] LABIA [id number] [address] Iron/TIBC [Molar ratio] Normal [facility] Comment on above: Order Comment: Speci men Type: BLOOD SPECIMENOrdering Facility: [facility] Address: [address] [place] [address] Result Comment: Unab le to calculate due to hemolysis. Performed By: #### I KENDRA ####[facility] LABIA [id number] [address] [facility] CBC W Auto Differential pane l (Bld)on 06-26-2021 Basophils (Bld) [#/Vol] 0.04 10*3/uL Normal <0.11 [facility] Comment on above: Order Comment: Speci men Type: BLOOD SPECIMENOrdering Facility: [facility] Address: [address] [place] [address] Performed By: #### 5 7021-8 ####[facility] LABCLIA [id number] [place] [address] Basophils/100 WBC (Bld) 0.8 % Normal [facility] Comment on above: Order Comment: Speci men Type: BLOOD SPECIMENOrdering Facility: [facility] Address: [address] [place] [address] Performed By: #### 5 7021-8 ####[facility] LABCLIA [id number] [place] [address] Differential cell count method Nom (Bld) Auto Normal [facility] Comment on above: Order Comment: Speci men Type: BLOOD SPECIMENOrdering Facility: [facility] Address: [address] [place] [address] Performed By: #### 5 7021-8 ####[facility] LABCLIA [id number] [place] [address] Eosinophils (Bld) [#/Vol] 0.14 10*3/uL Normal <0.46 [facility] Comment on above: Order Comment: Speci men Type: BLOOD SPECIMENOrdering Facility: [facility] Address: [address] [place] [address] Performed By: #### 5 7021-8 ####[facility] LABCLIA [id number] [place] [address] Eosinophils/100 WBC (Bld) 2.9 % Normal [facility] Comment on above: Order Comment: Speci men Type: BLOOD SPECIMENOrdering Facility: [facility] Address: [address] [place] [address] Performed By: #### 5 7021-8 ####[facility] LABCLIA [id number] [place] [address] Erythrocyte distribution width (RBC) [Ratio] 15.4 % High 11.5-15.0 [facility] Comment on above: Order Comment: Speci men Type: BLOOD SPECIMENOrdering Facility: [facility] Address: [address] [place] [address] Performed By: #### 5 7021-8 ####[facility] LABCLIA [id number] [place] [address] Hematocrit (Bld) [Volume fraction] 38.8 % Normal 36.0-46.0 [facility] Comment on above: Order Comment: Speci men Type: BLOOD SPECIMENOrdering Facility: [facility] Address: [address] [place] [address] Performed By: #### 5 7021-8 ####[facility] LABIA [id number] [place] [address] Hemoglobin (Bld) [Mass/Vol] 12.4 g/dL Normal 11.5-15.5 [facility] Comment on above: Order Comment: Speci men Type: BLOOD SPECIMENOrdering Facility: [facility] Address: [address] [place] [address] Performed By: #### 5 7021-8 ####[facility] LABIA [id number] [place] [address] IMMATURE GRAN % 0.2 % Normal [facility] Comment on above: Order Comment: Speci men Type: BLOOD SPECIMENOrdering Facility: [facility] Address: [address] [place] [address] Performed By: #### 5 7021-8 ####[facility] LABIA [id number] [place] [address] IMMATURE GRAN ABS <0.03 Normal <0.10 [facility] Comment on above: Order Comment: Speci men Type: BLOOD SPECIMENOrdering Facility: [facility] Address: [address] [place] [address] Performed By: #### 5 7021-8 ####[facility] LABIA [id number] [place] [address] Lymphocytes (Bld) [#/Vol] 1.53 10*3/uL Normal 1.00-4.00 [facility] Comment on above: Order Comment: Speci men Type: BLOOD SPECIMENOrdering Facility: [facility] Address: [address] [place] [address] Performed By: #### 5 7021-8 ####[facility] LABCLIA [id number] [place] [address] Lymphocytes/100 WBC (Bld) 31.2 % Normal [facility] Comment on above: Order Comment: Speci men Type: BLOOD SPECIMENOrdering Facility: [facility] Address: [address] [place] [address] Performed By: #### 5 7021-8 ####[facility] LABCLIA [id number] [place] [address] MCH (RBC) [Entitic mass] 27.1 pg Normal 26.0-34.0 [facility] Comment on above: Order Comment: Speci men Type: BLOOD SPECIMENOrdering Facility: [facility] Address: [address] [place] [address] Performed By: #### 5 7021-8 ####[facility] LABCLIA [id number] [place] [address] MCHC (RBC) [Mass/Vol] 32.0 g/dL Normal 30.5-36.0 [facility] Comment on above: Order Comment: Speci men Type: BLOOD SPECIMENOrdering Facility: [facility] Address: [address] [place] [address] Performed By: #### 5 7021-8 ####[facility] LABIA [id number] [place] [address] MCV (RBC) [Entitic vol] 84.7 fL Normal 80.0-100.0 [facility] Comment on above: Order Comment: Speci men Type: BLOOD SPECIMENOrdering Facility: [facility] Address: [address] [place] [address] Performed By: #### 5 7021-8 ####[facility] LABCLIA [id number] [place] [address] Monocytes (Bld) [#/Vol] 0.49 10*3/uL Normal <0.87 [facility] Comment on above: Order Comment: Speci men Type: BLOOD SPECIMENOrdering Facility: [facility] Address: [address] [place] [address] Performed By: #### 5 7021-8 ####[facility] LABCLIA [id number] [place] [address] Monocytes/100 WBC (Bld) 10.0 % Normal [facility] Comment on above: Order Comment: Speci men Type: BLOOD SPECIMENOrdering Facility: [facility] Address: [address] [place] [address] Performed By: #### 5 7021-8 ####[facility] LABCLIA [id number] [place] [address] Neutrophils (Bld) [#/Vol] 2.70 10*3/uL Normal 1.45-7.50 [facility] Comment on above: Order Comment: Speci men Type: BLOOD SPECIMENOrdering Facility: [facility] Address: [address] [place] [address] Performed By: #### 5 7021-8 ####[facility] LABCLIA [id number] [place] [address] Neutrophils/100 WBC (Bld) 54.9 % Normal [facility] Comment on above: Order Comment: Speci men Type: BLOOD SPECIMENOrdering Facility: [facility] Address: [address] [place], [place] [id number] Performed By: #### 5 7021-8 ####[facility] LABCLIA [id number] [place] [address] Nucleated RBC (Bld) [#/Vol] 10*3/uL Normal <0.01 [facility] Comment on above: Order Comment: Speci men Type: BLOOD SPECIMENOrdering Facility: [facility] Address: [address] [place], [place] [id number] Performed By: #### 5 7021-8 ####[facility] LABCLIA [id number] [place] [address] Nucleated RBC/100 WBC (Bld) [Ratio] 0.0 /100 WBC Normal [facility] Comment on above: Order Comment: Speci men Type: BLOOD SPECIMENOrdering Facility: [facility] Address: [address] [place], [place] [phone] Performed By: #### 5 7021-8 ####[facility] LABCLIA [id number] [place] [address] Platelet mean volume (Bld) [Entitic vol] 9.5 fL Normal 9.0-12.7 [facility] Comment on above: Order Comment: Speci men Type: BLOOD SPECIMENOrdering Facility: [facility] Address: [address] [place], [place] [phone] Performed By: #### 5 7021-8 ####[facility] LABCLIA [id number] [place] [address] Platelets (Bld) [#/Vol] 286 10*3/uL Normal 150-400 [facility] Comment on above: Order Comment: Speci men Type: BLOOD SPECIMENOrdering Facility: [facility] Address: [address] [place], [place] [phone] Performed By: #### 5 7021-8 ####[facility] LABCLIA [id number] [place] [address] RBC (Bld) [#/Vol] 4.58 10*6/uL Normal 3.90-5.20 [facility] Comment on above: Order Comment: Speci men Type: BLOOD SPECIMENOrdering Facility: [facility] Address: [address] [place], [place] [phone] Performed By: #### 5 7021-8 ####[facility] LABCLIA [id number] [place] [address] WBC (Bld) [#/Vol] 4.91 10*3/uL Normal 3.70-11.00 [facility] Comment on above: Order Comment: Speci men Type: BLOOD SPECIMENOrdering Facility: [facility] Address: [facility] [place] [address] Performed By: #### 5 7021-8 ####[facility] LABCLIA [id number] [place] [address] CNOVSPon 06-26-2021 CNOVSP Visit (SP) Office (HEMAS[place]) NEEL GARCIA ([id number]) 1980 F Date Time Provider Department 06/26/21 [...] born in [place] and has lived in [place] in the past. She reports occasional smoking - cigars that are dipped in cognac - last use a month back. Occasional alcohol use. No other substance abuse reported. She lives with her with 5 children. She is not working now but used to work at [employer] (was laid off during ). MEDICATIONS AND [...] normal, CMP normal PT 10.5, PTT 27.5 16 WSR 51, CRP 5.9, B12 328, MMA [...] which included preparing to see the patient, eghr-xh-ccig patient care, completing clinical documentation, obtaining and/or reviewing separately obtained history, performing a medically appropriate examination, counseling and educating the patient/family/careg iver, ordering medications, tests, or procedures, independently interpreting results (not separately reported) and communicating results to the patient/family/careg iver. CC (more content not included)... Normal [facility] SARS-CoV-2 (COVID-19) RNA JULEE+probe Ql (Unsp spec) Negative Normal Negative [facility] Comment on above: Order Comment: Healt hcare Worker?: N Result Comment: Testing for SARS-CoV-2 by RT-PCR This test was developed and its performance characteristics determined by [employer] ([employer]) and validated at the [facility]. This test has not been FDA [...] is terminated or revoked sooner. PERFORMED BY: [facility] [address] [id number] PATHOLOGIST PAGINATOR EDIN MONTERROSO M.D. Performed By: #### C OVID 19 [facility] #### [address] COVID-19 Positive/NegativeOr dered By: Bryan Quiros on 06-26-2021 SARS-CoV-2 (COVID-19) N gene JULEE+probe Ql (Resp) Negative Negative [facility] Comment on above: Testing for SARS-CoV -2 by RT-PCR This test was developed and its performance characteristics determined by [employer] ([employer]) and validated at the [facility]. This test has not been FDA [...] 06-26-2021 Ferritin [Mass/Vol] 34.6 ng/mL Normal 14.7-205.1 [facility] Comment on above: Order Comment: Speci men Type: BLOOD SPECIMENOrdering Facility: [facility] Address: [address] [address] Performed By: #### I KENDRA, FERR ####[facility] LABIA [id number] [address] [facility] IRON + TIBCon 06-26-2021 Iron [Mass/Vol] 60 ug/dL Normal 41-186 [facility] Comment on above: Order Comment: Speci men Type: BLOOD SPECIMENOrdering Facility: [facility] Address: [address] [place] [address] Performed By: #### I KENDRA, FERR ####[facility] LABIA [id number] [address] Iron binding capacity [Mass/Vol] 398 ug/dL High 232-386 [facility] Comment on above: Order Comment: Speci men Type: BLOOD SPECIMENOrdering Facility: [facility] Address: [address] [place] [address] Performed By: #### I KENDRA, FERR ####[facility] LABIA [id number] [address] Iron/TIBC [Molar ratio] 15 % Normal 15-57 [facility] Comment on above: Order Comment: Speci men Type: BLOOD SPECIMENOrdering Facility: [facility] Address: [address] [place] [address] Performed By: #### I KENDRA, FERR ####[facility] LABIA [id number] [address] [place] CNPCathie 06-20-2021 CNPN Telephone (HEMASA) NEEL GARCIA ([id number]) 1980 F Date Time Provider Department 06/20/21 [...] [D50.9] Order(s):CBC + DIFF [SQCBCDIF] Order #: [id number] FUTURE Prescriptions as of 06/22/2021 - ferrous [...] Encounter Status:Closed by LAURIE RUSSELL [facility] Telephone (HEMASA) NEEL GARCIA ([id number]) 1980 F Date Time Provider Department 05/30/21 [...] iron once a day (prescription sent to [facility] pharmacy in [place], [place]) and follow-up in 1 month with repeat labs. She will also need a referral to see a him manager for scopes. MD Alina Thomas Sec 05/30/2021 12:48 PM Addendum sloane please send records to [facility] I will print facesheet for you Alina Lex Sec 05/30/2021 12:50 PM Signed Patient is already scheduled for month appt Amelie Murray [facility] 05/30/2021 1:22 PM Signed Records faxed to Dr. Quiros. Miriam Raymond [facility] 06/05/2021 11:18 AM Signed Called [facility] and spoke with Karolina. She states they have received patient records and their office will be calling patient soon to schedule. Miriam Raymond [facility] Miriam Raymond [facility] 06/07/2021 3:01 PM Signed Called [facility] spoke with Christiane. She states their credentialing coordinator will be calling patient to schedule. Miriam Raymond [facility] Miriam Raymond [facility] 06/19/2021 10:42 AM Signed Called [facility] spoke with Karolina. She states they have tried to call patient left several messages and are waiting for patient to call their office back. Miriam Raymond [facility] Miriam Raymond [facility] 06/28/2021 1:07 PM Signed Spoke with Christiane from [facility] office. She states patient was scheduled today 06/28 for Colonoscopy and EGD, but they received voicemail from patient she wanted to cancel due to she was not feeling well. Miriam [facility] Vanna Villar 08/14/2021 2:43 PM Signed [...] deficiency anemia type [D50.9] Order(s):CONSULT TO GASTROENTEROLOGY [9058] Order #: [id number]: 1 FUTURE [] ferrous sulfate 325 mg (65 mg iron) tabletTake 1 tablet by mouth daily with breakfast.Disp: 30 tabletRfl: 2 IRON + TIBC [SQIRON] Order #: [id number] FUTURE FERRITIN BLD [SQFERR] Order #: [id number] FUTURE Prescriptions as of 08/14/2021 - SUMAtriptan [...] Status:Closed by PAOLO WARD on 05/30/21 Normal [facility] APTTon 05-29-2021 aPTT Coag (Bld) [Time] 27.8 s Normal 23.0-32.4 Cl [facility] Comment on above: Result Comment: Unfr [...] laboratory APTT reagent in use throughout the [facility]. Performed By: #### P TT, WSR, TT, FERR, FIBCT, PT, HAPTO, CRP, IRON ####[facility] [place], [place] [phone] C-Reactive Proteinon 022 C-Reactive Protein 0.5 mg/dL Normal <0.9 [facility] Comment on above: Performed By: #### P TT, WSR, TT, FERR, FIBCT, PT, HAPTO, CRP, IRON ####[facility] [address] [place], [place] [phone] CNOVSPon 05-29-2021 CNOVSP Visit (SP) Office (HEMASA) NEEL GARCIA ([id number]) 1980 F Date Time Provider Department 05/29/21 [...] born in [place] and has lived in [place] in the past. She reports occasional smoking - cigars that are dipped in cognac - last use a month back. Occasional alcohol use. No other substance abuse reported. She lives with her with 5 children. She is not working now but used to work at [employer] (was laid off during ). MEDICATIONS AND [...] which included preparing to see the patient, zgim-ah-nyfp patient care, completing clinical documentation, obtaining and/or reviewing separately obtained history, performing a medically appropriate examination, counseling and educating the patient/family/careg iver, ordering medications, tests, or procedures, independently interpreting results (not separately reported) and communicating results to the patient/family/careg iver. CC: Blade Crews Sr. Referring Provider: BLADE CREWS SR [[id number]] Allergies As of Date: 05/29/2021 (No Known Allergies) Date Reviewed: 05/29/2021 Reviewed by: July Drew - Fully Assessed Reason for Visit: New Patient [172] Cmt: easy bruising Primary Visit Diagnosis:Anemia, unspecified type [D64.9] Other Visit Diagnosis:Easy bruisability [R23.8] Order(s):CBC + DIFF (FOR REMOTE [facility] USE) [SQRCBCDF] Order #: [id number] FUTURE COMP METABOLIC PANEL [SQCMP] Order #: [id number] FUTURE SED RATE WESTERGREN [SQWSR] Order #: [id number] FUTURE C-REACTIVE PROTEIN (CRP) [SQCRP] Order #: [id number] FUTURE IRON + TIBC [SQIRON] Order #: [id number] FUTU (more content not included)... Normal [facility] Comp Metabolic Panelon 05-29 Albumin [Mass/Vol] 4.6 g/dL Normal 3.9-4.9 [facility] Comment on above: Performed By: #### P TT, WSR, TT, FERR, FIBCT, PT, HAPTO, CRP, IRON ####[facility] [place], [place] [phone] ALP [Catalytic activity/Vol] 83 U/L Normal 34-123 [facility] Comment on above: Performed By: #### P TT, WSR, TT, FERR, FIBCT, PT, HAPTO, CRP, IRON ####[facility] [address] [place], [place] [phone] ALT [Catalytic activity/Vol] 21 U/L Normal 7-38 [facility] Comment on above: Performed By: #### P TT, WSR, TT, FERR, FIBCT, PT, HAPTO, CRP, IRON ####[place] [address] [address] [place], [place] [phone] Anion gap [Moles/Vol] 11 mmol/L Normal 9-18 [facility] Comment on above: Performed By: #### P TT, WSR, TT, FERR, FIBCT, PT, HAPTO, CRP, IRON ####[address] [place], [place] [phone] AST [Catalytic activity/Vol] 19 U/L Normal 13-35 [facility] Comment on above: Performed By: #### P TT, WSR, TT, FERR, FIBCT, PT, HAPTO, CRP, IRON ####[address] [place] [phone] Bilirubin [Mass/Vol] 0.6 mg/dL Normal 0.2-1.3 [facility] Comment on above: Performed By: #### P TT, WSR, TT, FERR, FIBCT, PT, HAPTO, CRP, IRON ####[address] [place] [place] [phone] Calcium [Mass/Vol] 9.2 mg/dL Normal 8.5-10.2 [facility] Comment on above: Performed By: #### P TT, WSR, TT, FERR, FIBCT, PT, HAPTO, CRP, IRON ####[address] [phone] Chloride [Moles/Vol] 107 mmol/L High 97-105 [facility] Comment on above: Performed By: #### P TT, WSR, TT, FERR, FIBCT, PT, HAPTO, CRP, IRON ####[address], [place] [phone] CO2 [Moles/Vol] 23 mmol/L Normal 22-30 [facility] Comment on above: Performed By: #### P TT, WSR, TT, FERR, FIBCT, PT, HAPTO, CRP, IRON ####[address] [phone] Creatinine [Mass/Vol] 1.00 mg/dL High 0.58-0.96 [facility] Comment on above: Performed By: #### P TT, WSR, TT, FERR, FIBCT, PT, HAPTO, CRP, IRON ####[address] [phone] eGFR- Amer. >60 Normal [facility] Comment on above: Performed By: #### P TT, WSR, TT, FERR, FIBCT, PT, HAPTO, CRP, IRON ####[address] [phone] eGFR-All Other Races >60 Normal [facility] Comment on above: Result Comment: eGFR [...] TT, FERR, FIBCT, PT, HAPTO, CRP, IRON ####[place] [address] [address], [place] [phone] Glucose [Mass/Vol] 85 mg/dL Normal 74-99 [facility] Comment on above: Result Comment: The [place] [employer] (ADA) provides guidance for cutoff [...] Standards of Medical Care in Diabetes 2016, [place] [employer]. Diabetes Care. 2016.39(Suppl 1). Performed By: #### P TT, WSR, TT, FERR, FIBCT, PT, HAPTO, CRP, IRON ####[address] [phone] Potassium [Moles/Vol] 3.3 mmol/L Low 3.7-5.1 [facility] Comment on above: Performed By: #### P TT, WSR, TT, FERR, FIBCT, PT, HAPTO, CRP, IRON ####[address] [phone] Protein [Mass/Vol] 7.6 g/dL Normal 6.3-8.0 [facility] Comment on above: Performed By: #### P TT, WSR, TT, FERR, FIBCT, PT, HAPTO, CRP, IRON ####[address] [phone] Sodium [Moles/Vol] 141 mmol/L Normal 136-144 [facility] Comment on above: Performed By: #### P TT, WSR, TT, FERR, FIBCT, PT, HAPTO, CRP, IRON ####[address] [phone] Urea nitrogen [Mass/Vol] 12 mg/dL Normal 7-21 [facility] Comment on above: Performed By: #### P TT, WSR, TT, FERR, FIBCT, PT, HAPTO, CRP, IRON ####[place] [address] [address], [place] [phone] Ferritinon 05-29-2021 Ferritin [Mass/Vol] 14.6 ng/mL Low 14.7-205.1 [facility] Comment on above: Performed By: #### P TT, WSR, TT, FERR, FIBCT, PT, HAPTO, CRP, IRON ####[place] [address], [place] [phone] Fibrinogenon 05-29-2021 Fibrinogen 338 mg/dL Normal 200-400 [facility] Comment on above: Performed By: #### P TT, WSR, TT, FERR, FIBCT, PT, HAPTO, CRP, IRON ####[place] [address], [place] [phone] Haptoglobinon 05-29-2021 Haptoglobin 161 mg/dL Normal 31-238 [facility] Comment on above: Performed By: #### P TT, WSR, TT, FERR, FIBCT, PT, HAPTO, CRP, IRON ####[place] [address] [place], [place] [phone] Iron and TIBCon 05-29-2021 Iron [Mass/Vol] 53 ug/dL Normal 41-186 [facility] Comment on above: Performed By: #### P TT, WSR, TT, FERR, FIBCT, PT, HAPTO, CRP, IRON ####[place] [address], [place] [phone] TIBC 417 ug/dL High 232-386 [facility] Comment on above: Performed By: #### P TT, WSR, TT, FERR, FIBCT, PT, HAPTO, CRP, IRON ####[address] [address], [place] [phone] Transferrin Saturatn 13 % Low 15-57 [facility]v [facility] Comment on above: Performed By: #### P TT, WSR, TT, FERR, FIBCT, PT, HAPTO, CRP, IRON ####[address] [phone] Platelet Func Scrnon 022 COL/ADP Cartridge Account Credited Normal <118 [facility] Comment on above: Result Comment: Test Not Done Notified Dr. Ward at 0940 on 05.30.21 AB Performed By: #### P LTSCP ####[address] [phone] COL/EPI Cartridge Account Credited Normal <194 [facility] Comment on above: Result Comment: Test Not Done Notified Dr. Ward at 0940 on 05.30.21 AB Performed By: #### P LTSCP ####[address] [phone] Plt Func Scr Interp Account Credited Normal [facility] Comment on above: Performed By: #### P LTSCP ####[address] [phone] Protimeon 05-29-2021 PT INR 1.0 Normal 0.9-1.3 [facility] Comment on above: Result Comment: Kathy min K Antagonist (VKA) Therapeutic Range: INR 2 to 3 (Target INR of 2.5) Note: For patients treated with VKA drugs, such as warfarin, the [place] [employer] 2012 Guideline recommends [...] Chest 2012, 141:7S-47S Srinivasa RA, et al. [facility] 2017, 70: 252-289 Performed By: #### P TT, WSR, TT, FERR, FIBCT, PT, HAPTO, CRP, IRON ####[facility] [place], [place] [phone] PT Sec 10.9 sec Normal 9.7-13.0 [facility] Comment on above: Performed By: #### P TT, WSR, TT, FERR, FIBCT, PT, HAPTO, CRP, IRON ####[facility] [place], [place] [phone] Remote CBCDIF (for [facility] use o nly)on 05-29-2021 Abs Baso 0.04 k/uL Normal <0.11 [facility] Abs Fleming 0.49 k/uL Normal <0.87 [facility] Abs Neut 1.66 k/uL Normal 1.45-7.50 [facility] Absolute nRBC <0.01 Normal <0.01 [facility] Basophils/100 WBC (Bld) 1.0 % Normal [facility] DTYPE Auto Diff Normal [facility] Eosinophils (Bld) [#/Vol] 0.19 10*3/uL Normal <0.46 [facility] Eosinophils/100 WBC (Bld) 4.9 % Normal [facility] Erythrocyte distribution width (RBC) [Ratio] 14.6 % Normal 11.5-15.0 [facility] Hematocrit (Bld) [Volume fraction] 36.0 % Normal 36.0-46.0 [facility] Hemoglobin (Bld) [Mass/Vol] 11.5 g/dL Normal 11.5-15.5 [facility] Lymphocytes (Bld) [#/Vol] 1.50 10*3/uL Normal 1.00-4.00 [facility] Lymphocytes/100 WBC (Bld) 38.6 % Normal [facility] MCH 26.5 pG Normal 26.0-34.0 [facility] MCHC (RBC) [Mass/Vol] 31.9 g/dL Normal 30.5-36.0 [facility] MCV (RBC) [Entitic vol] 82.9 fL Normal 80.0-100.0 [facility] Monocytes/100 WBC (Bld) 12.6 % Normal [facility] Neutrophils/100 WBC (Bld) 42.9 % Normal [facility] NRBCs 0.0 /100 WBC Normal 0 [facility] Platelet mean volume (Bld) [Entitic vol] 9.2 fL Normal 9.0-12.7 [facility] Platelets (Bld) [#/Vol] 300 10*3/uL Normal 150-400 [facility] RBC (Bld) [#/Vol] 4.34 10*6/uL Normal 3.90-5.20 [facility] WBC (Bld) [#/Vol] 3.89 10*3/uL Normal 3.70-11.00 [facility] Reticulocyteon 05-29-2021 Abs Retic 0.047 M/uL Normal 0.0180-0.1000 [facility] Comment on above: Performed By: #### P TT, WSR, TT, FERR, FIBCT, PT, HAPTO, CRP, IRON ####[facility], [place] [phone] Retic% 1.1 % Normal 0.4-2.0 [facility] Comment on above: Performed By: #### P TT, WSR, TT, FERR, FIBCT, PT, HAPTO, CRP, IRON ####[place] [id number], [place] [phone] Sed Rate Westergrenon 2021 Sed Rate Westergren 22 mm/hr High 0-20 [facility] Comment on above: Performed By: #### P TT, WSR, TT, FERR, FIBCT, PT, HAPTO, CRP, IRON ####[place] [address] [place], [place] [phone] Thrombin Timeon 05-29-2021 Thrombin Time 17.3 sec Normal <18.6 [facility] Comment on above: Performed By: #### P TT, WSR, TT, FERR, FIBCT, PT, HAPTO, CRP, IRON ####[facility] [address] [place], [place] [phone] MRI BRAIN W WO CONTRASTon MRI BRAIN [...] collection present. The proximal portions of the or[place]ar[place] of Wang demonstrate normal flow voids. ORBITS: Limited evaluation of the orbits is unremarkable. SINUSES: The paranasal sinuses and mastoid air cells are clear. BONES/SOFT TISSUES: Bone marrow signal intensity is normal. IMPRESSION: Normal MRI of the brain without findings to explain the patient's seizures. Interpreted by: Erasmo Humphries MD Signed by: Erasmo Humphries MD 10/22/19 Final result Normal [facility] Normal MRI of the brain without findings to explain the patient's seizures. [facility] [place], [place] EXAMINATION: MRI OF THE BRAIN [...] collection present. The proximal portions of the [place] of [place] demonstrate normal flow voids. ORBITS: Limited evaluation of the orbits is unremarkable. SINUSES: The paranasal sinuses and mastoid air cells are clear. BONES/SOFT TISSUES: Bone marrow signal intensity is normal. [facility] Jay, pn Incoming Radiant Results From [employer] - 10/22/2019 4:01 PM EDT EXAMINATION: MRI OF THE BRAIN WITHOUT AND WITH CONTRAST 10/22/2019 2:33 pm TECHNIQUE: Multiplanar multisequence MRI of the head/brain was performed without and with the administration of intravenous contrast. COMPARISON: None. HISTORY: ORDERING SYSTEM PROVIDED HISTORY: Intractable epilepsy without status epilepticus, unspecified epilepsy type (FORMERLY [facility]) TECHNOLOGIST PROVIDED HISTORY: Is the patient ?->No [...] collection present. The proximal portions of the [place] demonstrate normal flow voids. ORBITS: Limited evaluation of the orbits is unremarkable. SINUSES: The paranasal sinuses and mastoid air cells are clear. BONES/SOFT TISSUES: Bone marrow signal intensity is normal. IMPRESSION: Normal MRI of the brain without findings to explain the patient's seizures. [employer] KYPHARMAJET Vital Signs Date Time Vital Sign Value Performing Clinician Facility 10-30-2022 10:33-0400 Blood Pressure Location AMELIE FRED [facility] 10-30-2022 10:33-0400 Diastolic blood pressure 84 mm[Hg] AMELIE ESPARZA [facility] 10-30-2022 10:33-0400 Heart rate 61 /min AMELIE ESPARZA [facility] 10-30-2022 10:33-0400 Respiratory rate 16 /min AMELIE ESPARZA [facility] 10-30-2022 10:33-0400 Systolic blood pressure 126 mm[Hg] AMEILE ESPARZA [facility] 09-28-2021 13:53-0400 Body height 167.6 cm Paolo Ward MD Work Phone: [facility] 09-28-2021 13:53-0400 Body temperature 97.59 [degF] Paolo Ward MD Work Phone: [facility] 09-28-2021 13:53-0400 Body weight 86.55 kg Paolo Ward MD Work Phone: [facility] 09-28-2021 13:53-0400 Diastolic blood pressure 70 mm[Hg] Paolo Ward MD Work Phone: [facility] 09-28-2021 13:53-0400 Heart rate 65 /min Paolo Ward MD Work Phone: [facility] 09-28-2021 13:53-0400 Respiratory rate 16 /min Paolo Ward MD Work Phone: [facility] 09-28-2021 13:53-0400 SaO2% (BldA) [Mass fraction] 100 % Paolo Ward MD Work Phone: [facility] 09-28-2021 13:53-0400 Systolic blood pressure 116 mm[Hg] Paolo Ward MD Work Phone: [facility] 09-20-2021 08:45-0400 Diastolic blood pressure 68 mm[Hg] DO Blade Crews Work Phone: [facility] 09-20-2021 08:45-0400 Heart rate 68 /min DO Blade Crews Work Phone: [facility] 09-20-2021 08:45-0400 Respiratory rate 18 /min DO Blade Crews Work Phone: [facility] 09-20-2021 08:45-0400 SaO2% (BldA) [Mass fraction] 98 % DO Blade Crews Work Phone: [facility] 09-20-2021 08:45-0400 Systolic blood pressure 105 mm[Hg] DO Blade Crews Work Phone: [facility] 09-20-2021 06:49-0400 Body height 170.18 cm DO Blade Crews Work Phone: [facility] 09-20-2021 06:49-0400 Body mass index (BMI) [Ratio] 28.6 kg/m2 DO Blade Crews Work Phone: [facility] 09-20-2021 06:49-0400 Body temperature 98.5 [degF] DO Blade Crews Work Phone: [facility] 09-20-2021 06:49-0400 Body weight 83 kg DO Blade Crews Work Phone: [facility] 08-14-2021 13:40-0400 Body height 167.6 cm Paolo Ward MD Work Phone: [facility] 08-14-2021 13:40-0400 Body temperature 97.11 [degF] Paolo Ward MD Work Phone: [facility] 08-14-2021 13:40-0400 Body weight 88.72 kg Paolo Ward MD Work Phone: [facility] 08-14-2021 13:40-0400 Diastolic blood pressure 57 mm[Hg] Paolo Ward MD Work Phone: [facility] 08-14-2021 13:40-0400 Heart rate 65 /min Paolo Ward MD Work Phone: [facility] 08-14-2021 13:40-0400 Respiratory rate 16 /min Paolo Ward MD Work Phone: [facility] 08-14-2021 13:40-0400 SaO2% (BldA) [Mass fraction] 92 % Paolo Ward MD Work Phone: [facility] 08-14-2021 13:40-0400 Systolic blood pressure 115 mm[Hg] Paolo Ward MD Work Phone: [facility] 06-27-2021 13:43-0500 Body height 170.18 cm DO [employer] Work Phone: [facility] 06-27-2021 13:43-0500 Body mass index (BMI) [Ratio] 31 kg/m2 DO [employer] Work Phone: [facility] 06-27-2021 13:43-0500 Body weight 89.81 kg DO [employer] Work Phone: [facility] Encounters Encounter Date Encounter Type Care Provider Facility Start: 08-27-2023 End: 08-27-2023 ambulatory RICO CABELLO Not Available Start: 01-08-2023 End: 01-09-2023 ambulatory AMELIE ESPARZA Facility:[facility] Start: 01-08-2023 End: 01-08-2023 Patient encounter procedure AMELIE ESPARZA [facility] Start: 11-13-2022 End: 11-14-2022 ambulatory Constantino MARTINEZ Facility:[id number] Start: 10-30-2022 End: 10-31-2022 ambulatory AMELIE ESPARZA Facility:[facility] Start: 10-30-2022 End: 10-30-2022 Patient encounter procedure AMELIE ESPARZA [facility] Start: 05-30-2022 End: 05-30-[address] INGRID DE LOS SANTOS Facility:[facility] Start: 05-30-2022 End: 05-31-[address] INGRID DE LOS SANTOS Facility:[facility] Start: 05-27-2022 End: 05-27-[address] BLADE CREWS Facility:[facility] Start: 05-10-2022 End: 05-11-[address] BLADE CREWS Facility:[facility] Start: 02-26-2022 End: 02-27-[address] BLADE CREWS Facility:[facility] Start: 02-26-2022 Encounter for preprocedural laboratory examination DR INGRID DE LOS SANTOS [facility] Start: 02-25-2022 End: 02-25-[address] BALDE CREWS Facility:[facility] Start: 02-16-2022 Encounter for preprocedural laboratory examination DR INGRID DE LOS SANTOS [facility] Start: 02-15-2022 End: 02-16-2022 ambulatory Constantino MARTINEZ Facility:[id number] Start: 02-15-2022 End: 02-19-2022 Evaluation and management of inpatient DR INGRID DE LOS SANTOS Facility:[facility] Start: 02-12-2022 End: 02-13-[address] INGRID DE LOS SANTOS Facility:[facility] Start: 02-12-2022 End: 02-13-2022 Encounter for preprocedural laboratory examination DR INGRID DE LOS SANTOS Facility:[facility] Start: 02-07-2022 ambulatory AMELIE ESPARZA Facility :[facility] [place] Start: 01-30-2022 Encounter for other preprocedural examination DR INGRID DE LOS SANTOS [facility] Start: 01-29-2022 End: 01-30-[address] [...] surgery center DO Blade Crews Work Phone: [facility] Start: 09-15-2021 End: 09-15-2021 Patient encounter procedure DO Blade Crews Work Phone: [facility] Start: 08-14-2021 End: 08-14-2021 ambulatory Paolo Ward MD Work Phone: Hematology/Oncology Comment on above: Iron deficiency anem ia, unspecified iron deficiency anemia type (Primary Dx) Start: 08-14-2021 End: 08-14-2021 Patient encounter procedure Paolo Ward MD Work Phone: [facility] Start: 06-28-2021 End: 06-28-2021 Departed Referred DO Blade Crews Work Phone: [facility] Start: 06-26-2021 End: 06-26-2021 Patient encounter procedure DO Blade Crews Work Phone: [facility] Start: 05-24-2021 Chart abstracting Paolo guevara MD Work Phone: Hematology/Oncology Start: 10-22-2019 End: 10-25-2019 Patient encounter procedure ALEX Harris ANAYAyan [facility] Start: 10-22-2019 End: 10-24-2019 Subsequent hospital visit by physician Page Mri Rm 1 [facility] MRI Comment on above: Intractable epilepsy [...] Work Phone: Start: 09-20-2021 Esophagogastroduodenoscopy DO Blade Dunne use Work Phone: Start: 06-26-2021 Adult depression screening assessment Paolo Ward MD Work Phone: Start: 10-22-2019 Mri brain brain stem w/o w/contrast material ALEX BEJ Start: 10-22-2019 Mri brain brain stem w/o w/contrast material Alex Kimberly Beayan Work Phone: Plan of Treatment Date Care Activity Detail Author Start: 09-28-2022 Adult depression screening assessment DEPRESSION SCREENING [facility] Start: 06-26-2022 Adult depression screening assessment DEPRESSION SCREENING [facility] Start: 12-21-2021 Influenza vaccination [facility] Start: 09-28-2021 End: 11-28-2021 CBC W Auto Differential panel - Blood CBC + DIFF Lab Routine Iron deficiency anemia, unspecified iron deficiency anemia type Expected: 09/28/2021, Expires: 11/28/2021 [facility] Work Phone: Comment on above: Expected: 09/28/2021, Expires: 2 Start: 09-28-2021 End: 11-28-2021 FERRITIN BLD FERRITIN BLD Lab Routine Iron deficiency anemia, unspecified iron deficiency anemia type Expected: 09/28/2021, Expires: 11/28/2021 [facility] Work Phone: Comment on above: Expected: 09/28/2021, Expires: 2 Start: 09-28-2021 End: 11-28-2021 IRON + TIBC IRON + TIBC Lab Routine Iron deficiency anemia, unspecified iron deficiency anemia type Expected: 09/28/2021, Expires: 11/28/2021 [facility] Work Phone: Comment on above: Expected: 09/28/2021, Expires: 2 Start: 08-14-2021 End: 10-14-2021 CBC W Auto Differential panel - Blood CBC + DIFF Lab Routine Iron deficiency anemia, unspecified iron deficiency anemia type Expected: 08/14/2021, Expires: 10/14/2021 [facility] Work Phone: Comment on above: Expected: 08/14/2021, Expires: 2 Start: 08-14-2021 End: 10-14-2021 FERRITIN BLD FERRITIN BLD Lab Routine Iron deficiency anemia, unspecified iron deficiency anemia type Expected: 08/14/2021, Expires: 10/14/2021 [facility] Work Phone: Comment on above: Expected: 08/14/2021, Expires: 2 Start: 08-14-2021 End: 10-14-2021 IRON + TIBC IRON + TIBC Lab Routine Iron deficiency anemia, unspecified iron deficiency anemia type Expected: 08/14/2021, Expires: 10/14/2021 [facility] Work Phone: Comment on above: Expected: 08/14/2021, Expires: 2 Start: 08-14-2021 End: 10-14-2021 RETIC COUNT RETIC COUNT Lab Routine Iron deficiency anemia, unspecified iron deficiency anemia type Expected: 08/14/2021, Expires: 10/14/2021 [facility] Work Phone: Comment on above: Expected: 08/14/2021, Expires: 2 Start: 06-28-2021 Esophagogastroduodenoscopy DH EGD/Colonoscopy (Not Applicable) [facility] Start: 12-21-2020 Influenza vaccination INFLUENZA (#1) [facility] Start: 12-22-2019 Influenza vaccination Flu vaccine (#1) [place], [place] Start: 2018 Lipid panel Lipid screen [place], [place] Start: 2018 Mammography MAMMOGRAM [facility] Start: 2008 HPV TESTING HPV TESTING [facility] Start: 1999 PAP TESTING PAP TESTING [facility] Start: 1999 Screening for malignant neoplasm of cervix Cervical cancer screen [place], [place] Start: 1997 DTaP/Tdap/Td vaccine (1 - Tdap) DTaP/Tdap/Td vaccine (1 - Tdap) [place], [place] Start: 1997 Urine microalbumin profile DTAP,TDAP,TD (1 - Tdap) [facility] Start: 1996 HEPATITIS C SCREENING HEPATITIS C SCREENING [facility] Start: 1996 HIV SCREENING HIV SCREENING [facility] Start: 1993 HIV screening HIV screen [place], [place] Start: 1990 Adult depression screening assessment DEPRESSION SCREENING [facility] Start: 1983 COVID-19 VACCINE (#1) COVID-19 VACCINE (#1) [facility] Start: 1983 COVID-19 VACCINE (1) COVID-19 VACCINE (1) [facility] Start: 1978 COVID-19 VACCINE (#1) COVID-19 VACCINE (#1) [facility] Ferritin [Mass/volum e] in Serum or Plasma FERRITIN BLD Lab Routine Iron deficiency anemia, unspecified iron deficiency anemia type 10/06/2021 1:31 PM EDT [facility] Work Phone: Iron and Iron bindin g capacity panel - Serum or Plasma IRON + TIBC Lab Routine Iron deficiency anemia, unspecified iron deficiency anemia type 10/06/2021 1:31 PM EDT [facility] Work Phone: [facility] Immunizations Immunization Date Immunization Notes Care Provider Fa [facility] 02-16-2019 influenza, injectabl e, quadrivalent, preservative free Paolo Ward MD Work Phone: [facility] 12-31-2017 influenza, injectabl e, quadrivalent, preservative free Paolo Ward MD Work Phone: [facility] Payers Date Payer Category Payer Unknown [facility] xxxxxxxxxxxx 2014-Present [phone] [address] [place] [address] xxxxxxxxxxxx [id number] 2002 Medicaid [employer] [employer] [id number] 2002-Present [phone] [address] [place] [address] Medicaid [id number] 1978 Unknown [id number] [id number] 1978 Unknown [id number] 2.16.840.1.976804.3.579.2.593 1978 Unknown [id number] 2.16.840.1.937972.3.579.2.593 1978 Unknown [id number] 2.16.840.1.568843.3.579.2.593 1978 Unknown [id number] 2.16.840.1.867695.3.579.2.593 1978 Unknown [id number] 2.16.840.1.839749.3.579.2.593 1978 Unknown [id number] 2.16.840.1.246914.3.579.2.593 1978 Unknown [id number] 2.16.840.1.586282.3.579.2.593 1978 Unknown [id number] 2.16.840.1.269669.3.579.2.593 1978 Unknown [id number] 2.16.840.1.046546.3.579.2.593 1978 Unknown [id number] 2.16.840.1.372918.3.579.2.593 1978 Unknown [id number] 2.16.840.1.665216.3.579.2.593 1978 Unknown [id number] 2.16.840.1.795615.3.579.2.593 1978 Unknown [id number] 2.16.840.1.158474.3.579.2.593 1978 Unknown [id number] 2.16.840.1.665129.3.579.2.593 1978 Unknown [id number] 2.16.840.1.713434.3.579.2.593 1978 Unknown [id number] 2.16.840.1.018637.3.579.2.727 1978 Unknown [id number] 2.16.840.1.465696.3.579.2.727 1978 Unknown [id number] 2.16.840.1.186161.3.579.2.727 1978 Unknown [id number] 2.16.840.1.587502.3.579.2.727 1978 Unknown [id number] 2.16.840.1.141631.3.579.2.125 9 1959 Unknown [id number] Self-pay Self Pay [id number] Social History Date Type Detail Facility Tobacco smoking status INIS Unknown if ever smoked [facility] Start: 1978 Sex Assigned At Not on file [place] Tobacco smoking status INIS Tobacco smoking consumption unknown [facility] Start: 05-29-2021 Tobacco smoking status INIS Occasional tobacco smoker [facility] Start: 05-29-2021 End: 09-28-2021 Tobacco use and exposure Smokeless tobacco non-user [facility] Start: 08-14-2021 End: 11-10-2021 Alcohol intake Current drinker of alcohol (finding) [facility] Start: 08-14-2021 End: 11-10-2021 Alcohol intake [facility] Start: 05-29-2021 History SDOH Alcohol Comment socially [facility] Start: 08-04-2021 End: 11-10-2021 Exposure to SARS-CoV-2 (event) Not sure [facility] Start: 1980 Sex Assigned At Female F [facility] Start: 09-28-2021 End: 01-08-2023 Tobacco smoking status NHIS Ex-smoker [facility] Sex Assigned At Female [facility] Goals Date Patient Goal Desired Activity /State Functional Status Date Assessment Result Facility 01-08-2023 Functional Status N/A [facility] 10-30-2022 Functional Status N/A [facility] Clinical Notes 05-29-2021 to 01-08-2023 Telephone Encounter - Jian De La Cruz RN - 11/14/2021 3:15 PM EDTTelephone Encounter - Jian De La Cruz RN - 11/14/2021 3:15 PM EDTTelephone Encounter - Vika Pittman [facility] - 10/06/2021 1:13 PM EDT Note Date [...] provider. Document Revised: 08/17/2021 Document Reviewed: 08/17/2021 [employer] Patient Education 2022 30 Second Showcase. Follow Up Care 10/30/2022 11:37:59 With:FRED DUNCAN, AMELIE Ch, URL Address: [address] [place] [address] When: Unknown Comments:PRN [facility] 10-30-[address] 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 Measure Post Void residual urine and/or bladder capacity by US- non-imaging [id number] Follow-up With When Contact Information AMELIE ESPARZA PA-C, URL In 8 weeks [address] [place] [address] Additional Instructions: after Cysto w/ Dr. Martinez Patient Education Cystoscopy Documentation recorded by the scribisis Estrada accurately reflects the services(s) I performed and decisions made by me. Authentic (more content not included)... [facility] Comment on above: Result Comment: Elec tronically Signed By: AMELIE ESPARZA PA-C\.br\Date and Time Signed: 10/30/22 12:34 EDT\.br\Electronically Co-Signed By: Lamar Estrada\.br\Date and Time Co-Signed: 10/30/22 11:29 EDT 10-30-2022 [facility] Discharg e instructions Patient Education 10/30/2022 [...] including vitamins, herbs, eye drops, creams, and lepu-afj-mflyemg medicines. Any problems you or family members [...] provider tells you to take them. Taking fwqu-qrh-bqvbiop medicines, vitamins, herbs, and supplements. Tests You [...] Follow these instructions at home: Medicines Take lywb-ozn-yvylvrm and prescription medicines only as told by [...] provider. Document Revised: 12/20/2021 Document Reviewed: 11/18/2020 [employer] Patient Education 2022 30 Second Showcase. Follow Up Care 08/31/2022 13:02:06 With:FRED DUNCAN, AMELIE Ch, URL Address: [address] [facility] [place] [address] When:Within 8 Week(s) Comments:after Cysto w/ Dr. Martinez [facility] 10-30-2022 Note Urology Cystoscopy Cystoscopy is a [...] including vitamins, herbs, eye drops, creams, and bfrg-lxi-djuxizg medicines. ? Any problems you or family [...] tells you to take them. ? Taking elrw-bod-ygxhdpg medicines, vitamins, herbs, and supplements. Tests You [...] these instructions at home: Medicines ? Take xibn-nuq-vfrnmud and prescription medicines only as told by [...] the department th (more content not included)... [facility] 11-14-2021 Miscellaneous Notes Informed pt of Dr Ward's message. Pt verbalized understanding and denies further needs at this time. Jian De La Cruz, RN ----- Message from Alina Barros RN sent at 11/13/2021 1:26 PM EDT ----- ----- Message ----- From: Paolo Ward MD Sent: 11/11/2021 6:10 AM EDT To: Alina Barros RN [facility]. Can you please call pt and let her know that the iron profile is normal? No change in the recommendation. Thanks, LETITIAK documented in this encounter [facility] 11-10-2021 Note HNO ID: [id number] Author: Paolo Ward MD Service: ? Author [...] born in [place] and has lived in [place] in the past. She reports occasional smoking - cigars that are dipped in cognac - last use a month back. Occasional alcohol use. No other substance abuse reported. She lives with her with 5 children. She is not working now but used to work at [employer] (was laid off during ). MEDICATIONS AND [...] which included preparing to see the patient, muif-qa-zidn patient care, completing clinical documentation, obtaining and/or reviewing separately obtained history, performing a medically appropriate examination, counseling and educating the patient/family/caregiver, ordering medications, tests, or procedures, independently interpreting results (not separately reported) and communicating results to the patient/family/caregiver. CC: Blade Crews Sr. [facility] 10-06-2021 Miscellaneous Notes 1st report of treatment-Non oncology regimen (Monoferric) Patient has [place] therefore no FA is required documented in this encounter [facility] 09-29-2021 Miscellaneous Notes Patient has been [...] Paolo Ward MD documented in this encounter [facility] 09-28-2021 Note HNO ID: [id number] Author: Paolo Ward MD Service: ? Author [...] born in [place] and has lived in [place] in the past. She reports occasional smoking - cigars that are dipped in cognac - last use a month back. Occasional alcohol use. No other substance abuse reported. She lives with her with 5 children. She is not working now but used to work at [employer] (was laid off during -). MEDICATIONS AND [...] which included preparing to see the patient, qtoz-fv-nvre patient care, completing clinical documentation, obtaining and/or reviewing separately obtained history, performing a medically appropriate examination, counseling and educating the patient/family/caregiver, ordering medications, tests, or procedures, independently interpreting results (not separately reported) and communicating results to the patient/family/caregiver. CC: Blade Crews Sr. [facility] 09-28-2021 History of Presen t illness [...] born in [place] and has lived in [place] in the past. She reports occasional smoking - cigars that are dipped in cognac - last use a month back. Occasional alcohol use. No other substance abuse reported. She lives with her with 5 children. She is not working now but used to work at [employer] (was laid off during ). MEDICATIONS AND [...] which included preparing to see the patient, waix-oo-qxtc patient care, completing clinical documentation, obtaining and/or reviewing separately obtained history, performing a medically appropriate examination, counseling and educating the patient/family/caregiver, ordering medications, tests, or procedures, independently interpreting results (not separately reported) and communicating results to the patient/family/caregiver. CC: Blade Crews Sr. documented in this encounter [facility] 09-20-2021 Procedure note [facility] 08-14-2021 Note HNO ID: [id number] Author: Paolo Ward MD Service: ? Author [...] born in [place] and has lived in [place] in the past. She reports occasional smoking - cigars that are dipped in cognac - last use a month back. Occasional alcohol use. No other substance abuse reported. She lives with her with 5 children. She is not working now but used to work at [employer] (was laid off during COVID-19). MEDICATIONS AND [...] which included preparing to see the patient, oxlv-we-mjyh patient care, completing clinical documentation, obtaining and/or reviewing separately obtained history, performing a medically appropriate examination, counseling and educating the patient/family/caregiver, ordering medications, tests, or procedures, independently interpreting results (not separately reported) and communicating results to the patient/family/caregiver. CC: Blade Crews Sr. [facility] 08-14-2021 History of Presen t illness [...] born in [place] and has lived in [place] in the past. She reports occasional smoking - cigars that are dipped in cognac - last use a month back. Occasional alcohol use. No other substance abuse reported. She lives with her with 5 children. She is not working now but used to work at [employer] (was laid off during COVID-19). MEDICATIONS AND [...] which included preparing to see the patient, [id number] patient care, completing clinical documentation, obtaining and/or reviewing separately obtained history, performing a medically appropriate examination, counseling and educating the patient/family/caregiver, ordering medications, tests, or procedures, independently interpreting results (not separately reported) and communicating results to the patient/family/caregiver. CC: Blade Crews Sr. documented in this encounter [facility] 06-26-2021 Note HNO ID: [id number] Author: Paolo Ward MD Service: ? Author [...] born in [place] and has lived in [place] in the past. She reports occasional smoking - cigars that are dipped in cognac - last use a month back. Occasional alcohol use. No other substance abuse reported. She lives with her with 5 children. She is not working now but used to work at [employer] (was laid off during ). MEDICATIONS AND [...] which included preparing to see the patient, [id number] patient care, completing clinical documentation, obtaining and/or reviewing separately obtained history, performing a medically appropriate examination, counseling and educating the patient/family/caregiver, ordering medications, tests, or procedures, independently interpreting results (not separately reported) and communicating results to the patient/family/caregiver. CC: Blade Crews Sr. [facility] 05-29-2021 Note HNO ID: [id number] Author: Paolo Wadr MD Service: ? Author Type: Physician Type: [...] born in [place] and has lived in [place] in the past. She reports occasional smoking - cigars that are dipped in cognac - last use a month back. Occasional alcohol use. No other substance abuse reported. She lives with her with 5 children. She is not working now but used to work at [employer] (was laid off during -). MEDICATIONS AND [...] normal, CMP normal PT 10.5, PTT 27.5 -16- WSR 51, CRP 5.9, B12 328, MMA [...] which included preparing to see the patient, vsss-[id number] patient care, completing clinical documentation, obtaining and/or reviewing separately obtained history, performing a medically appropriate examination, counseling and educating the patient/family/caregiver, ordering medications, tests, or procedures, independently interpreting results (not separately reported) and communicating results to the patient/family/caregiver. CC: Blade Crews Sr. [facility] Evaluation + Plan note Future Appointments Appointment Date:01/08/2023 03:00:00 PM Scheduled Provider:AMELIE ESPARZA PA-C Location:[facility] Appointment Type:URO Office Visit [facility] Evaluation note Diagnosis Iron deficiency anemia, unspecified iron deficiency anemia type- Primary [facility] Work Phone: Evaluation note* Diagnosis Iron deficiency anemia, unspecified iron deficiency anemia type- Primary Easy bruisability Other symptoms involving skin and integumentary tissues [facility] Diagnosis Iron deficiency anemia, unspecified iron deficiency anemia type [facility] Diagnosis Onset Date Resolution Status Iron deficiency anemia acute [facility] Work Phone: Evaluation note* Diagnosis Iron deficiency anemia, unspecified iron deficiency anemia type- Primary documented in this encounter [facility] Author Bryan Quiros [facility] September 20, 2021 7:58am Note Date/Time September 20, 2021 7:54a m [facility] [address] [place] [address] Gastroenterology H&P Signed Patient: Neel Garcia MR#: [id number] : 1980 Acct:[id number] Age/Sex: 41 / F Adm Date: 2 Loc: Room: Type: [facility] Attending Dr: Bryan Quiros DO [...] by Bryan Quiros Jr, DO> 09/20/21 0758 [facility] Work Phone: Hospital course Narrative No data available for this section [facility] progress note No data available for this section [facility] Reason for Referral Status Reason Specialty Diagnoses / Procedures Referre d By Contact Referred To Contact [facility] Diagnoses Intractable epilepsy without status epilepticus, unspecified epilepsy type (HCC) Procedures MRI BRAIN W WO CONTRAST Alex Little MD [address] [facility] [address] [place] [address] Assessments Diagnosis Intractable epilepsy without status epilepticus, unspecified epilepsy type (HCC) Advance Directives No Advanced Directives Records FoundDocuments on File Type Date 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 [place] [address] [facility] [address] [place] [address] Reason Comments Anemia 1 month follow up Reason Comments Anemia Reason Comments Results Reason Comments Benefits Investigation Specialty Diagnoses / Procedures Referred By Contac t Referred To Contact Diagnoses Iron deficiency anemia, unspecified iron deficiency anemia type Procedures INJECTION, FERRIC DERISOMALTOSE, 10 MG Paolo Ward MD [address] [place] [address] [place] [address] [facility] [address] [place] [address] Referral ID Status Reason Start Date Expiration Date V isits Requested Visits Authorized [id number] Authorized 09/29/2021 01/02/2022 1 1 INFORMATION SOURCE (unrecogn ized section and content) DATE CREATED AUTHOR 11/12/[address] [facility] DATE CREATED AUTHOR AUTHOR'S ORGANIZ ATION 09/24/2021 [facility] DATE CREATED AUTHOR AUTHOR'S ORGANIZ ATION 11/16/2021 [facility] DATE CREATED AUTHOR AUTHOR'S ORGANIZ ATION 06/05/2022 [facility] DATE CREATED AUTHOR AUTHOR'S ORGANIZ ATION 01/09/2023 Shrestha Mesa [facility] DATE CREATED AUTHOR AUTHOR'S ORGANIZ ATION 08/28/2023 [facility] EPIC Source Comments (unrecognize d section and content) In the event this informatio n is protected by the Federal Confidentiality of Alcohol and Drug Abuse Patient Records regulations: The Federal rules restrict any use of the information to criminally investigate or prosecute any alcohol or drug abuse patient.[facility] the event this information is protected by the Federal Confidentiality of Alcohol and Drug Abuse Patient Records regulations: The Federal rules restrict any use of the information to criminally investigate or prosecute any alcohol or drug abuse patient.[facility] the event this information is protected by the Federal Confidentiality of Alcohol and Drug Abuse Patient Records regulations: The Federal rules restrict any use of the information to criminally investigate or prosecute any alcohol or drug abuse patient.[facility] Hospital[facility] the event this information is protected by the Federal Confidentiality of Alcohol and Drug Abuse Patient Records regulations: The Federal rules restrict any use of the information to criminally investigate or prosecute any alcohol or drug abuse patient.[facility] Hospital[facility] the event this information is protected by the Federal Confidentiality of Alcohol and Drug Abuse Patient Records regulations: The Federal rules restrict any use of the information to criminally investigate or prosecute any alcohol or drug abuse patient.[facility] Hospital[facility] the event this information is protected by the Federal Confidentiality of Alcohol and Drug Abuse Patient Records regulations: The Federal rules restrict any use of the information to criminally investigate or prosecute any alcohol or drug abuse patient.[facility] Hospital[facility] the event this information is protected by the Federal Confidentiality of Alcohol and Drug Abuse Patient Records regulations: The Federal rules restrict any use of the information to criminally investigate or prosecute any alcohol or drug abuse patient.[facility] Teams (unrecognized sec tion and content) Poured Pipe Maker Relationship Specialty Start Date End Date Isiah Evangelista [address] [place] [address] Referring HELPER DRIVER 07/29/18 Poured Pipe Maker Relationship Specialty Start Date End Date Blade Crews Sr. 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 [address] [facility] [place] [address] PCP - General Family Practice 05/29/21 Isiah Evangelista [address] [place] [address] Referring HELPER DRIVER 07/29/18 Poured Pipe Maker Relationship Specialty Start Date End Date Blade Crews Sr. [address] [facility] [place] [address] PCP - General Family Practice 05/29/21 Isiah Evangelista [address] [place] [address] Referring HELPER DRIVER 07/29/18 Poured Pipe Maker Relationship Specialty Start Date End Date Blade Crews Sr. [address] [facility] [place] [address] PCP - General Family Practice 05/29/21 Isiah Evangelista[address] [place] [phone] Referring HELPER DRIVER 07/29/18 Poured Pipe Maker Relationship Specialty Start Date End Date Blade Crews Sr. [address] [place] [address] PCP - General Family Practice 05/29/21 Isiah Evangelista[address] [place] [phone] Referring HELPER DRIVER 07/29/18 Goals (unrecognized section and content) Goals [...] BE BASED ON THE PRIMARY CLINICAL RECORDS. [facility]. provides no warranty or guarantee of the accuracy or completeness of information in this document.
--- NOTE | 2023-10-11 06:41 | MR_ITS ---
The [address] [address] Patient Name: NEEL SAMSON MRN: [id number] date: 1980 Sex: F Assigned Patient Location: MRI Current Patient Location: Accession/Order Number: [id number] Exam Date: 10/11/2023 06:47 Report Date: 10/14/2023 07:06 At the request of: DAMARIS ROBLES Procedure: MR cervical spine wo con MR cervical spine wo con, 10/11/2023 6:47 AM EDT INDICATION: Lumbar Back Pain COMPARISON: Prior x-ray of the cervical spine dated 09/27/2023 TECHNIQUE: Multiplanar, multisequential MRI images of cervical spine were obtained without contrast. FINDINGS: There is loss of normal physiologic cervical lordosis. The vertebral heights are relatively preserved. The cervicomedullary junction is unremarkable. There are Modic type II changes at the level C5-C6. No definite signal abnormality within the spinal cord is noted. There are mild disc osteophyte complex associated with uncovertebral joint arthrosis from C3 to T1. No significant neuroforaminal narrowing or canal stenosis at the level of C2-C3 is noted. At the level of C3-C4, there is moderate right and moderate left neuroforaminal narrowing and no canal stenosis. At the level of C4-C5, there is severe bilateral neuroforaminal narrowing and severe canal stenosis. At the level of C5-C6, there is severe bilateral neuroforaminal narrowing and severe canal stenosis. At the level of C6-C7, there is mild right neuroforaminal narrowing and no canal stenosis. Level of C7-T1, there is no significant neuroforaminal narrowing or canal stenosis. However, there is a lesion with T2 prolongation at the origin of the left C8 measuring approximately 6 x 8 mm (transverse, AP) not fully characterized by this study. No definite muscular or ligamentous injury is noted. MR/MR cervical spine wo con IMPRESSION: Moderate degenerative changes of the cervical spine in particular at C4-C5 and C5-C6. Lesion at the left neuroforamen of C7-T1 not fully characterized by this study. The differential diagnosis are schwannoma versus meningioma cyst. A complimentary cervical MRI with injection of contrast is recommended for further evaluation. An incidental note was submitted to inform the clinician at 7:07 AM. Electronically authenticated by: MELVIN MANZO Date: 10/14/2023 07:06
== END 2023-10-11 06:36 | disposition home or self-care (01) ==
LOC: MRI 06:35
PROVIDERS: Visit Provider Orthopaedic Surgery Orthopaedic Surgery of the Spine
DX: M54.50 Low back pain, unspecified (principal); M50.30 Other cervical disc degeneration, unspecified cervical region; M89.9 Disorder of bone, unspecified
CPT/HCPCS: 72141

== ENCOUNTER 2024-07-07 11:01 | Emergency (ER) | payer OTHER, SELFPAY ==
[2024-07-07 11:04] VITALS: BP 134/68; PULSE 68; TEMP 36.8; O2SAT 98; BMI 28.7
--- OUTSIDE RECORDS SUMMARY | 2024-07-07 11:21 | XMS_ITS | CCD ---
Author Organization [facility] ion Partnership PRODUCT ARCHITECT [facility] Care Team Providers Care Associate Genetics Professor Name Role Phone House, Sr Blade Soriano Primary Care Provider ALEX LITTLE Referring Unavailable CANTON, SR BLADE Soriano Primary Care Unavailable Isiah Evangelista Unavailable Landrum SrBlade Rogers Primary Care Provider DO Blade Crews Primary Care Provider DO Bryan Quiros Attending Provider [phone] ELEONORA, DR BRIDGES Primary Care Unavailable KARASIK, [...] HOUSE, DR BRIDGES Primary Care Unavailable DIAB, MERAN Attending Unavailable DIAB, MERNA Admitting Unavailable DIAB, MERNA Consulting Unavailable HOUSE, DR BRIDGES Primary Care Unavailable ROYAL, DR [...] Unavailable HOUSE, DR BRIDGES Primary Care Unavailable ROYAL, DR ALEX Kemp Admitting Unavailable RUSSELL, DR ALEX Kemp Consulting Unavailable ROYAL, DR ALEX Kemp Attending Unavailable SAL, DR BRYAN Lawler Consulting Unavailable KARASIK, DR QUINTERO Admitting Unavailable MARTINEZ, DR HAND Consulting Unavailable HOUSE, DR BRIDGES Primary Care Unavailable KARASIK, DR QUINTERO Attending Unavailable KARASIK, DR QUINTERO Consulting Unavailable KARASIK, DR QUINTERO Procedure Practitioner Unava char LONG, GIOVANNA Consulting Unavailable MARTINEZ, DR HAND Procedure Practitioner UnavaMONI Dunham Consulting Unavailable Blade Crews Primary Care Physician AMELIE ESPARZA Attending Unavailable AMELIE ESPARZA Attending Unavailable Ingrid DE LOS SANTOS Referring Unavailable Constantino MARTINEZ Attending Unavailable Constantino MARTINEZ Attending Unavailable HALASYRICO Attending Unavailable ADAM, JOSTIN Attending Unavailable HALASYRICO Referring Unavailable ADAM, RHPOP Attending Unavailable ALEX LITTLE Attending Unavailable ALEX LITTLE Referring Unavailable ADAM, RHPOP Attending Unavailable RICO DE JESUS Attending Unavailable DAMARIS GUO Referring Unavailable ADAM, RHPOP Attending Unavailable ADAM, JOSTIN Attending Unavailable BLADE CREWS Primary Care Unavailable PATIENCE OROZCO Attending Unavailable PATIENCE OROZCO Attending Unavailable PATIENCE OROZCO Referring Unavailable HOUSE, BLADE P Primary Care Unavailable HOUSE, BLADE P Primary Care Unavailable SOPHIE MEANS Attending Unavailable HOUSE, BLADE P Primary Care Unavailable RACHELE VICKERS Attending Unavailable HOUSE, DO BLADE P Admitting Unavailable HOUSE, DO BLADE P Attending Unavailable HOUSE, BLADE P Primary Care Unavailable HOUSE, BLADE P Primary Care Unavailable HOUSE, DO BLADE P Attending Unavailable HOUSE, BLADE P Primary Care Unavailable HOUSE, DO BLADE P Attending Unavailable HOUSE, BLADE P Primary Care Unavailable HOUSE, DO BLADE P Attending Unavailable Medications Current Medications Medication Drug [...] Start: 05-23-2021 take 1 capsule by mo [facility] twice daily topiramate XR (QUDEXY XR) 48 [...] day(s), # 2 tab(s), Refills(s) 0, Pharmacy: [facility]/pharmacy #[id number], 170, cm, 10/30/22 10:53:00 EDT, [...] Translations: [Unspecified abdominal pain] Onset: 12-21-2021 Episodic Acute cerebrovascular disease (1 source) Cerebral infarction, unspecified; Translations: [Cerebral infarction, unspecified] Onset: 05-31-2024 Chronic Acute cerebrovascular disease (1 source) Acute cerebrovascular disease Onset: 05-31-2024 Asthma (3 sources) Unspecified asthma, uncomplicated; Translations: [...] Mixed incontinence; Translations: [Incontinence] Onset: 10-30-2022 Chronic Headache; including migraine (2 sources) Headache 10-30-2022 Episodic Headache; including migraine (1 source) Headache; including migraine; Translations: [Headache, unspecified] Onset: 05-31-2024 Menstrual disorders (6 sources) Excessive and frequent menstruation with regular cycle; Translations: [Dysmenorrhea, unspecified] Onset: 12-21-2021 Chronic Mood disorders (1 source) Bipolar disorder, unspecified; Translations: [BIPOLAR DISORDER UNSPECIFIED] Onset: 05-14-2022 Chronic Nutritional deficiencies (1 source) Iron deficiency; Translations: [Iron deficiency] Onset: 10-12-2021 10-12-2021 Episodic Other aftercare (1 source) 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; Translations: [OTH SNF CURRENT DRUG THERAPY] Onset: 05-28-2022 Episodic Other [...] body structures; Translations: [ABNORML FIND DX IMG OT BODY STRUC] Onset: 12-21-2021 Chronic Other skin [...] [CONTACT W/AND (SUSP) EXPOS COVID-19] Onset: 05-28-2022 Unclassified (1 source) Abdominal pain; back pain Onset: 10-18-2023 Viral infection (2 sources) Genital herpes simplex 10-30-2022 Chronic Viral infection (1 source) Viral infection, unspecified; Translations: [VIRAL INFECTION UNSPECIFIED] Onset: 05-28-2022 Episodic Past or Other Problems Problem Classification Problem Date Documented Date Episodic/Chronic Benign neoplasm of uterus (1 source) Leiomyoma of uterus, unspecified; Translations: [LEIOMYOMA OF UTERUS UNSPECIFIED] Onset: 02-26-2022 Episodic Fluid and electrolyte disorders (1 source) Hypokalemia; Translations: [Hypokalemia] Onset: 02-14-2024 Episodic Genitourinary symptoms and ill-defined conditions (8 sources) Personal history of urinary (tract) infections; Translations: [Microscopic hematuria] Onset: 05-14-2022 Episodic Immunizations and screening for infectious disease (1 source) Encounter for screening for human papillomavirus (HPV); Translations: [ENC SCREENING HUMAN PAPILLOMAVIRUS] Onset: 12-14-2021 Episodic Nonspecific chest pain (3 sources) Other chest pain; Translations: [Chest pain, unspecified] Onset: 02-14-2024 Episodic Other lower respiratory disease (4 sources) [...] BOTH CERVIX AND UTERUS] Onset: 02-27-2022 Episodic Urinary tract infections (1 source) Acute cystitis with hematuria; Translations: [Acute cystitis with hematuria] Onset: 10-18-2023 Episodic Results Test Name Value Interpretation Reference Range Facility Coding Summaryon 06-27-2024 Coding Summary HTMLBase 64 SyqgthixOJs3bSl+PGhl YWQ+RC7NVCXqV57pxHYp dD7nS9VMDTrJGhtrVISD NWnQNjZxsyQqHC3xoCDu ZXJu IC8+NK7jKODtEgrrnSNp e4Y8qIU0L43vkx8kETek kYX7GTEcHcApigrzl3to nNn0VWewOslnKbBq GAJyiO04BFH5sE48Sd04 tDAnlNNes6jrnHn6QnKf LBAcIML7nTcqOMuiv9Tq ZSWvP38rsCCna7W3 IGNvbGxhcHNlOyBlbXB0 iV5zDHyzckhdt9wdmwoh Kfp4db33vHDyd7U8cQU8 H0BowjV8HFHuqVKv RapcrAWOkA5weoqbr4xx zlgiHcZxRJFxNNb5YBu1 YKUkjPrsMrSxQT22BDY4 YZSykePlP1ZoTIUd kZwwPhJ5a6W3Kt8EQ0OD UxexV2XBUWVLKHjosWX+ WX28uj58G8MrLguyHvi8 YTPsLSJ5iDG0iZ7h CEKiHReye0O8jEH9K2Iy slVueq8ub0anSIXeWRij O84cjPGjh7D4UMMubEJ6 OAMciLtqWeQonS73 Oyc+IRBfnXfno4AuNnol k6sog3inzFw8UvpfTGBc bnQrsXaeYBP9m7YeOc9j ABSsoRO1fSM8eV1f WpSfRiD9MUcoS741MpKn zWIiFnkyN10vS2FhpCI+ OJJqKqo5RFQnxNfdCO9j C6GfGABsoaagyINs mDfiDZ8mAKOcybbxPDIi tG5bLTOiE8q2NuXhPwX9 MKirV5WoBHSjcsgfGe37 uR3xCpXmUuH0YAcb Z4IpsvS9OBYqlSXqLPzb VFA0F28co6B8KXVhVOJu EGC6fKP9aE8xhOxcibuh bGVmdDsgdmVydGlj YOycVVidX894WDWnuKxs PkNvZGluZyBEYXRlOiAg MDMvMDgvMjAyNTwvdGQ+ CPZnIHO7kCpbHOZj uFJeQWknZv8lxTjonZfy VH1sRYJthrmkCZOflK3b IAPjzTQdqCtgLR5dHOKh nvbxz867BaOxTPO9 GSAfnDOwT3HbgO9tDePy GQYuVHXcR6SqnEBpFSch I632MCobTiM7QHRojaKi H7PbRVPmtZtmFtU6 r3S4Ax6Ed6ClkvwjL5Gn hLNeVyHbNlpdVAt0D1Xz PjwvdHI+RD19PZCwOZ69 VWs2QGU8tDckNJwv WGRxD2YegG1hGeLbSMGo ZGRkOyc+PHRhYmxlIHdp ZHRoPScxMDAlJyBzdHls JY9rWu7wZXShHBNa eErhlOGoNjEgb6uiNPEe UKhoRG4goIqzA7TykIK8 OIEyq9p2Mx26V43aQ9Xf dXA+BSSjaJF6mZH1 pH1fJgZmUrB7AOniD006 VsLzrLEvMghzr9trh8ys gCj8VbK3SPLnsgOznIaq WUX1n1ZaXd01H88v IHdpZHRoPSIxNSUiIHZh sEryxk9tkY3aEy9+PGNv jXG3uWR1pB2lZbVsEtG0 VDnaD540QwTpdQVj Lvtdc1aty5rwtQe3TkTt CKLzcnVfsIitYRX3o9Sm Qe77X5IgvZcfs7FlBrf9 bk47xKCxj3V4xES7 U9XqMWHoznmmlEXtvYtj JZ4iPYEpqcfyNIXhcH7s EXLeA4a3EcYxMiE5QQfs V8RabzB4WPNwoPAq HKSveHQEuO5vfasgf2xb ozhxTyWeRAFhJPn2DBt2 EUIvlIcdQiPnZCN9VoJ3 XCV2eRFpfL1zgXrd bvwfcG6rQec+QJH5nKOn gZJAYT1sTorluWX+PHRk YYN7zLfzOIswZRPieE7i JVUqO4i2EnXbImZ5 OWjnJ7BfppU5LHYdfTUh MSMixICQqV9uwfnsl9di gafvQwGgZMDkZMe9VUg1 LWFsaWduOiBsZWZ0 BpG8GKY8jQUpnR8tnUem mbafuS0gQgr+QmlydGgg JRI7UDq0H0MvRio7PVZe xDnsIS3ygFAjNJff Pq4fvXgirAinZB9uKFCg ctzbw427IzSti6izXRZx dDKeKKvtJUR8V08oh7J7 JPWdSNTjUIL1lDN3 cR0caXgjosefrVVsvFmp nkWtvXlyTLixMXpeP460 RXEspPcbAmSbEEm7Q3Bm Btw7IHAgfCncIF3u hXUzEJvkIq9yfZmutHtm QX6hRMAvxfpfr934VoEi z4wpCOYyrZLaJVplDJA9 R30sq3W2ICIeUPKs WOJ5qCB6aS2pmNdzsubl bGVmdDsgdmVydGljYWwt ZJdpJ787DIVxhIrjAwBs wOq2S4WfMwk5RYZj tNlfFZ6lvYWqHYzcLd3o rJvpuZfmJD4oSRSllqqn q424CvIlw8vsRTWhiOIx VUqnPSF9E97ut8O0 HWWjSTMyFBA5jSX7eM2a bGlnbjogbGVmdDsgdmVy bWthUXtoZIfvM503LWPg cDsnPlBhdGllbnQg FCjyRQv2J6DmUffhnFZ+ HB74EWKeKG54yAKczYJu w8opbAq4EoKzJNIpOLM6 hYguBUmza4UkOPIb P68weXRpo4U8PZMvcKzf qYQkUjVmqEU9dM7uDDtq upsju1uxmcejZiezv2le ju41vX08S70hJAci ZHRoPSIzMCUiIHZhbGln rk8sbQ3zJq8+PGNvbCB3 wEM1zQ2nWPQoHbL6YSvn F809BiGmbWOaOopk b3ofj0jjlEi3ImL5AAGe chZqsDjtRDA2u4NnJe03 H60yTYztBNQqGMXjNDYq NWVyiAybxn3hiI4g Ii8+OZNnrBU9hLW0aG3j TxHtNaD9ZMzhP612ElMp fDDsRqciE44iV3SjoGE+ XTElAho8PZYhhUem NW9sfOLqASckDv6zBJA9 ZnAxDbIdHRovF5UfKFTg jbhlxejexZM3GJDkWIOv xB34Zc5yvDywVHMi hCALeJ1uyesyz4znlvfd FuDnTHOgZXk7FUt0LALu vOieDkNgJDA2HbI7WCW5 bHJkqH8npLgexbtd dA0hR8TpHNSitrntAw86 hU6rAyXzOwJ8HIsaOnm+ Sk6KYmAINanpEZTQOYqS IEQgRUxMSVNPTjwv dGQ+EXJmEGZ6kQkdWYwg GMSweY9nKWCwL2b3GeZs ZfQ4ATkeZ7NjPJVqzyft Iz55yJ8aMtYyIgL8 EEamO9DorcS3CZKntZVu RLdzLRJ7L52og7R9RONp HMGhSRT3iOD2fZ3lpSdg bjogbGVmdDsgdmVy nFsoNYnrHStgI874TVLs bNgaKrCmUpYmJxH0Gtg6 G0GrXrw1WGOzaVgrYM3u rXAmUDsaHz0mrBik eTcdOJ5fSAAkmwkiLCIm tQ2qPLSvvPWutTyyOX7w VBWcckman376GkFoAEH8 IQSxfOSfL1CifY6h NuJcSBTwQNOyF4PbtHVx EYxtQ905WFezPqG1TZBb puNpY9NzOVHxaKteHkB3 n8S6Mc65OdLEBGWs czwvdGQ+WRGxSOZ0mXox BLzxLUKowH6mNSSwF0c3 CiQsNnU8CYosO7ArFTHu ywihWy32wZ1qCoBc KwV9XSfpJ2GhzcB6GFLf fNIwFSaiTIC9O08ud8W2 RUMtPOIaRHH0gCV5aA4b bGlnbjogbGVmdDsg ngTdaMyqSUtrGCplJ429 IHRvcDsnPkZFTUFMRTwv dGQ+BTMrYLD5uWeyYKku RZZrsL9fNNXiB5j7 AiLzElF1YEhiP1TdYDJe pklyWc29tX2yPyKiHgJ3 KGxyH1YzzpM7QMFdyFDx OJkrOYP9A15ph6Z5 SYVaOKXyRSW3zEC4vN1c bGlnbjogbGVmdDsgdmVy jVjwDAhjIYhoF536WWDd yBzqJh4LAM03EY65 J7MiMtrwzNUjyFH+PHRh YmxlIHdpZHRoPScxMDAl JzHncXbxMI5fAy9yTMIe LWNvbGxhcHNlOiBj s5wfDVDwOWeoPN8ikVva D0DmuCL9BKYze0q1Cn54 Y30uR6WerZP+PGNvbCB3 kEF9xB0sAhFzGkK3 NVwbS080OyAeoIHqRfuq q2dpd1wlsIu3TrNuUFZq ezKrsGnuXLZ7h1JaNa06 Z54hWRovKAPuLABk QBYcNRWktZwbmf6rvT2h Ii8+ZVRttXA9uQD4xP9f XrIdUnK4OPwoK089HwOf rROkRqhuE17rE0Kl dXA+YARnKga7POGyoKow TG1koWZhRGasKe8aOLO4 BqFtIiGbDDpoK6YaJISc muirkvrznCQ9CWGa KEEadG55Dt7bqWcqQr1p YIFmJWH7ABJvuYKxZ4Hi sZ6gTuMkKTCaZMJhW5Fn nHWaSEdvY715RVat WrM1VTXjtrAsK8LcCPGq gIdkBmN3v1E8Ps4CzGqo cUMpQV8iSyOySOq8C1Zx Fiu8CJBohCcgJZ9w zQTzJOihOq9luQqyiWlc IV3dESZjrgtvo917MjQw d2bjOLWvhMCzLVivFSK3 Y44vu6B5AKOiPOKk XER9jVP0lD3mhZjukgyn bGVmdDsgdmVydGljYWwt YHstP627QUMytKmhUjEU Ulf6J8QqPcj9IJJx rBusAM2bvXJbPJntLt4p yKsffLxaWC2dURHkekbb m028NgFnw8eqPKThvRJw ZUlxAOZ4N30px6M4 YIPkLAWjPQK9cVY0oR6a bGlnbjogbGVmdDsgdmVy yDoeRXkmAHflY809HGYq wJzrLi3LYyb9M0By Blv8AFMftQfqBV5ngLDp CGrhSu5qnUtsqHalCY0o TTIhlebwd530SbLri1cc IDEwcHQgVGltZXM7 O70ng3H0ICGyOZYoCJD3 fVV1xQ7icSrdvwwmpWOe dDsgdmVydGljYWwtYWxp C186UMAvuMngOpOo eWVyOjwvdGQ+ZC22bx11 I5AlRzteAdm2WENgZIP1 vEM3mX2sQCUgLUiuz9A2 pJQ2N6DfyeZofx0z b2x (more content not included)... Normal [facility] Reminder Messageson 06-24-19 Reminder Messages - From: BLADE CREWS DO To: [facility] Clinical Pool ([facility] Sent: 06/22/2024 12:08:59 EST ! Show up: 06/22/2024 12:08:59 EST Subject: Results Follow Up Actions: Call the patient with result(s) Due Date/Time: 06/23/2024 12:08:00 EST Reminder Comments: looks okay Results: Date Result Name Ind Value Ref Range 06/22/2024 11:12 Sodium Level (L) 133.0 mmol/L (136.0 - 144.0) 06/22/2024 11:12 Potassium Level (L) 3.4 mmol/L (3.6 - 5.1) 06/22/2024 11:12 Chloride Level 108 mmol/L (101 - 111) 06/22/2024 11:12 CO2 27 mmol/L (21 - 32) 06/22/2024 11:12 Anion Gap (L) 1.4 mmol/L (5.0 - 19.0) 06/22/2024 11:12 Glucose Level 94.0 mg/dL (74.0 - 118.0) 06/22/2024 11:12 BUN 11 mg/dL (8 - 26) 06/22/2024 11:12 Creatinine Level 0.74 mg/dL (0.60 - 1.30) 06/22/2024 11:12 BUN/Creat Ratio 14.8 (4.6 - 16.2) 06/22/2024 11:12 eGFR AA >60 mL/min/1.73m2 06/22/2024 11:12 eGFR Non AA >60 mL/min/1.73m2 06/22/2024 11:12 Calcium Level (L) 8.1 mg/dL (8.9 - 10.3) 06/22/2024 11:12 Bili Total (H) 1.4 mg/dL (0.3 - 1.2) 06/22/2024 11:12 Alk Phos 50 IU/L (32 - 91) 06/22/2024 11:12 AST/SGOT 22 IU/L (15 - 41) 06/22/2024 11:12 ALT/SGPT 21.0 IU/L (14.0 - 54.0) 06/22/2024 11:12 Protein Total 7.3 gm/dL (6.5 - 8.1) 06/22/2024 11:12 Albumin Level 4.0 gm/dL (3.5 - 5.0) 06/22/2024 11:12 Globulin 3.3 gm/dL (1.5 - 4.3) 06/22/2024 11:12 A/G Ratio (L) 1.2 (1.4 - 2.6) 06/22/2024 11:12 Osmolality 266 mOsm/L 06/22/2024 11:12 WBC (L) 3.1 x103/mcL (3.5 - 10.5) 06/22/2024 11:12 RBC 4.54 x106/mcL (3.70 - 5.30) 06/22/2024 11:12 Hgb 13.4 gm/dL (11.3 - 15.9) 06/22/2024 11:12 Hct 39.9 % (33.7 - 40.4) 06/22/2024 11:12 MCV 88 fL (81 - 100) 06/22/2024 11:12 MCH 30 pg (24 - 34) 06/22/2024 11:12 MCHC 34 gm/dL (26 - 37) 06/22/2024 11:12 RDW 13.5 % (11.5 - 15.0) 06/22/2024 11:12 Platelet 240 x103/mcL (138 - 427) 06/22/2024 11:12 MPV 7.2 fL (6.3 - 10.2) 06/22/2024 11:12 Auto Neut % 44 % (44 - 88) 06/22/2024 11:12 Auto Lymph % 40 % (14 - 48) 06/22/2024 11:12 Auto Berks % 12 % (1 - 12) 06/22/2024 11:12 Auto Eos % 3.8 % (0.9 - 4.0) 06/22/2024 11:12 Auto Baso % 1.2 % (0.2 - 2.0) 06/22/2024 11:12 Neut Abs# (L) 1.4 x103/mcL (1.5 - 9.2) 06/22/2024 11:12 Lymph Abs# 1.3 x103/mcL (1.3 - 2.9) 06/22/2024 11:12 Berks Abs# 0.4 x103/mcL (0.0 - 0.8) 06/22/2024 11:12 Eos Abs# 0.1 x103/mcL (0.0 - 0.4) 06/22/2024 11:12 Baso Abs# 0.0 x103/mcL (0.0 - 0.2) 06/22/2024 11:32 UA Color Yellow 06/22/2024 11:32 UA Clarity CLEAR (CLEAR - ) 06/22/2024 11:32 UA Glucose NEGATIVE 06/22/2024 11:32 UA Ketones NEGATIVE 06/22/2024 11:32 UA Spec Grav 1.020 (1.001 - 1.035) 06/22/2024 11:32 UA Blood (A) SMALL (NEGATIVE - ) 06/22/2024 11:32 UA pH 7.0 (5 - 8) 06/22/2024 11:32 UA Protein NEGATIVE (NEGATIVE - ) 06/22/2024 11:32 UA Urobilinogen 1.0 mg/dL (0.2 - 1.0) 06/22/2024 11:32 UA Nitrite NEGATIVE (NEGATIVE - ) 06/22/2024 11:32 UA Leuk Est NEGATIVE (NEGATIVE - ) 06/22/2024 11:32 UA Bilirubin NEGATIVE 06/22/2024 11:32 Urine Source Clean Catch 06/22/2024 11:32 Micro? Indicated 06/22/2024 11:32 Culture? Not Indicated 06/22/2024 11:32 UA WBC 0-2 06/22/2024 11:32 UA RBC 3-5 06/22/2024 11:32 UA Squam Epi Few 06/22/2024 11:32 UA Bacteria Trace Can patient get a note saying she is cleared to go back to work on 06/24/2024? 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 - From: Gavi Mora MA ([facility] Clinical Pool ([facility])) To: [facility] Clerical Pool ([facility]); Sent: 06/23/2024 10:43:45 EST Show up: 06/23/2024 10:43:00 EST Subject: RE: Results Follow Up Note prepared and placed in patient pickup folder in front office. Normal [facility] .Auto Diff 106-22-2024 Auto Berks % 12 % Normal 1-12 [facility] Comment on above: Performed By: #### 7 [id number], [id number] #### [facility] (DEFAULT) [address] [place] [address] 96005 Baso Abs# 0.0 x10 Normal 0.0-0.2 [facility] Comment on above: Performed By: #### 7 [id number], [id number] #### [facility] (DEFAULT) [address] [place] [address] 67990 Basophils/100 WBC (Bld) 1.2 % Normal 0.2-2.0 [facility] Comment on above: Performed By: #### 7 [id number], [id number] #### [facility] (DEFAULT) [address] [place] [address] 33984 Eos Abs# 0.1 x10 Normal 0.0-0.4 [facility] Comment on above: Performed By: #### 7 [id number], [id number] #### [facility] (DEFAULT) [address] [place] [address] 73515 Eosinophils/100 WBC (Bld) 3.8 % Normal 0.9-4.0 [facility] Comment on above: Performed By: #### 7 [id number], [id number] #### [facility] (DEFAULT) [address] [place] [address] Lymph Abs# 1.3 x10 Normal 1.3-2.9 [facility] Comment on above: Performed By: #### 7 [id number], [id number] #### [facility] (DEFAULT) [address] [place] [address] 15886 Lymphocytes/100 WBC (Bld) 40 % Normal 14-48 [facility] Comment on above: Performed By: #### 7 [id number], [id number] #### [facility] (DEFAULT) [address] [place] [address] 47765 Berks Abs# 0.4 x10 Normal 0.0-0.8 [facility] Comment on above: Performed By: #### 7 [id number], [id number], [id number] #### [facility] (DEFAULT) [address] [place] [address] 78008 Neut Abs# 1.4 x10 Low 1.5-9.2 [facility] Comment on above: Performed By: #### 7 [id number], [id number] #### [facility] (DEFAULT) [address] [place] [address] 89196 Neutrophils/100 WBC (Bld) 44 % Normal 44-88 [facility] Comment on above: Performed By: #### 7 [id number], [id number], [id number] #### [facility] (DEFAULT) [address] [place] [address] 07740 CBC w/ Auto Diffon 5 Erythrocyte distribution width (RBC) [Ratio] 13.5 % Normal 11.5-15.0 [facility] Comment on above: Performed By: #### 7 [id number], [id number] #### [facility] (DEFAULT) [address] [place] [address] Hematocrit (Bld) [Volume fraction] 39.9 % Normal 33.7-40.4 [facility] Comment on above: Performed By: #### 7 [id number], [id number], [id number] #### [facility] (DEFAULT) [address] [place] [address] Hemoglobin (Bld) [Mass/Vol] 13.4 g/dL Normal 11.3-15.9 [facility] Comment on above: Performed By: #### 7 [id number], [id number], [id number] #### [facility] (DEFAULT) [address] [place] [address] Man Diff? Auto Invalid Interpretation Code [facility] Comment on above: Performed By: #### 7 [id number], [id number], [id number] #### [facility] (DEFAULT) [address] [place] [address] MCH (RBC) [Entitic mass] 30 pg Normal 24-34 [facility] Comment on above: Performed By: #### 7 [id number], [id number], [id number] #### [facility] (DEFAULT) [address] [place] [address] MCHC (RBC) [Mass/Vol] 34 g/dL Normal 26-37 [facility] Comment on above: Performed By: #### 7 [id number], [id number], [id number] #### [facility] (DEFAULT) [address] [place] [address] MCV (RBC) [Entitic vol] 88 fL Normal 81-100 [facility] Comment on above: Performed By: #### 7 [id number], [id number], [id number] #### [facility] (DEFAULT) [address] [place] [address] Platelet 240 x10 Normal 138-427 [facility] Comment on above: Performed By: #### 7 [id number], [id number], [id number] #### [facility] (DEFAULT) [address] [place] [address] 71996 Platelet mean volume (Bld) [Entitic vol] 7.2 fL Normal 6.3-10.2 [facility] Comment on above: Performed By: #### 7 [id number], [id number], [id number] #### [facility] (DEFAULT) [address] [place] [address] 25111 RBC 4.54 x10 Normal 3.70-5.30 [facility] Comment on above: Performed By: #### 7 [id number], [id number], [id number] #### [facility] (DEFAULT) [address] [place] [address] 34195 WBC 3.1 x10 Low 3.5-10.5 [facility] Comment on above: Result Comment: Slid e Reviewed Performed By: #### 7 [id number], [id number], [id number] #### [facility] (DEFAULT) [address] [place] [address] 87771 CMP Standardon 06-22-2024 eGFR Non AA >60 Invalid Interpretation Code [facility] Comment on above: Performed By: #### 7 [id number], [id number], [id number] #### [facility] (DEFAULT) [address] [place] [address] 93896 eGFR AA >60 Invalid Interpretation Code [facility] Comment on above: Performed By: #### 7 [id number], [id number], [id number] #### [facility] (DEFAULT) [address] [place] [address] 48203 Albumin [Mass/Vol] 4.0 g/dL Normal 3.5-5.0 [place] Comment on above: Performed By: #### 7 [id number], [id number], [id number] #### [facility] (DEFAULT) [address] [place] [address] 87684 Albumin/Globulin [Mass ratio] 1.2 {ratio} Low 1.4-2.6 [facility] Comment on above: Performed By: #### 7 [id number], [id number], [id number] #### [facility] (DEFAULT) [address] [place] [address] 13413 Alk Phos 50 IU/L Normal 32-91 [facility] Comment on above: Performed By: #### 7 [id number], [id number], [id number] #### [facility] (DEFAULT) [address] [place] [address] 74272 ALT [Catalytic activity/Vol] 21.0 U/L Normal 14.0-54.0 [facility] Comment on above: Performed By: #### 7 [id number], [id number], [id number] #### [facility] (DEFAULT) [address] [place] [address] 55382 Anion gap [Moles/Vol] 1.4 mmol/L Low 5.0-19.0 [facility] Comment on above: Performed By: #### 7 565311, [id number], [id number] #### [facility] (DEFAULT) [address] [place] [address] 20307 AST [Catalytic activity/Vol] 22 U/L Normal 15-41 [facility] Comment on above: Performed By: #### 7 [id number], [id number], [id number] #### [facility] (DEFAULT) [address] [place] [address] 83525 Bili Total 1.4 mg/dL High 0.3-1.2 [facility] Comment on above: Performed By: #### 7 553604, [id number], [id number] #### [facility] (DEFAULT) [address] [place] [address] 09255 Calcium [Mass/Vol] 8.1 mg/dL Low 8.9-10.3 [place] Comment on above: Performed By: #### 7 [id number], [id number], [id number] #### [facility] (DEFAULT) [address] [place] [address] 15091 Chloride [Moles/Vol] 108 mmol/L Normal 101-111 [facility] Comment on above: Performed By: #### 7 [id number], [id number], [id number] #### [facility] (DEFAULT) [address] [place] [address] 79646 CO2 [Moles/Vol] 27 mmol/L Normal 21-32 [facility] Comment on above: Performed By: #### 7 162556, [id number], [id number] #### [facility] (DEFAULT) [address] [place] [address] 07543 Creatinine [Mass/Vol] 0.74 mg/dL Normal 0.60-1.30 [facility] Comment on above: Performed By: #### 7 215365, [id number], [id number] #### [facility] (DEFAULT) [address] [place] [address] 82501 Globulin (S) [Mass/Vol] 3.3 g/dL Normal 1.5-4.3 [facility] Comment on above: Performed By: #### 7 690054, [id number], [id number] #### [facility] (DEFAULT) [address] [place] [address] 16585 Glucose [Mass/Vol] 94.0 mg/dL Normal 74.0-118.0 [place] Comment on above: Performed By: #### 7 907515, [id number], [id number] #### [facility] (DEFAULT) [address] [place] [address] 85325 Osmolality 266 mOsm/L Invalid Interpretation Code [facility] [facility] Comment on above: Performed By: #### 7 [id number], [id number], [id number] #### [facility] (DEFAULT) [address] [place] [address] 12651 Potassium [Moles/Vol] 3.4 mmol/L Low 3.6-5.1 [facility] Comment on above: Performed By: #### 7 [id number], [id number], [id number] #### [facility] (DEFAULT) [address] [place] [address] 43665 Protein [Mass/Vol] 7.3 g/dL Normal 6.5-8.1 [place] Comment on above: Performed By: #### 7 [id number], [id number], [id number] #### [facility] (DEFAULT) [address] [place] [address] 10224 Sodium [Moles/Vol] 133.0 mmol/L Low 136.0-144.0 [facility] Comment on above: Performed By: #### 7 [id number], [id number], [id number] #### [facility] (DEFAULT) [address] [place] [address] Urea nitrogen [Mass/Vol] 11 mg/dL Normal 8-26 [facility] Comment on above: Performed By: #### 7 [id number], [id number], [id number] #### [facility] (DEFAULT) [address] [place] [address] Urea nitrogen/Creatinine [Mass ratio] 14.8 mg/mg Normal 4.6-16.2 [facility] Comment on above: Performed By: #### 7 [id number], [id number], [id number] #### [facility] (DEFAULT) [address] [place] [address] UA [id number] 06-22-2024 UA Bacteria Trace [facility] Comment on above: Order Comment: Urina lysis Microscopic order added on by [employer] Expert Rules system. Performed By: #### 1 [id number], [id number] #### [facility] (DEFAULT) [address] [place] [address] UA RBC 3-5 [facility] Comment on above: Order Comment: Urina lysis Microscopic order added on by [employer] Expert Rules system. Performed By: #### 1 [id number], [id number] #### [facility] (DEFAULT) [address] [place] [address] UA Squam Epi Few [facility] Comment on above: Order Comment: Urina lysis Microscopic order added on by [employer] Expert Rules system. Performed By: #### 1 [id number], [id number] #### [facility] (DEFAULT) [address] [place] [address] UA WBC 0-2 [facility] Comment on above: Order Comment: Urina lysis Microscopic order added on by [employer] Expert Rules system. Performed By: #### 1 [id number], [id number] #### [facility] (DEFAULT) [address] [place] [address] UA w Culture if Ind Standard on 06-22-2024 Breakpoint UA [facility] Comment on above: Performed By: #### 1 [id number], [id number] #### [facility] (DEFAULT) [address] [place] [address] 87550 Color (U) Yellow Normal [facility] Comment on above: Performed By: #### 1 [id number], [id number] #### [facility] (DEFAULT) [address] [place] [address] 80389 Culture? Not Indicated Invalid Interpretation Code [facility] Comment on above: Result Comment: Resu lt created by rule GL_MAGR_ADD_UA_CULT Result created by rule GL_MAGR_ADD_UA_CULT Result created by rule GL_MAGR_ADD_UA_CULT1 Performed By: #### 1 [id number], [id number] #### [facility] (DEFAULT) [address] [place] [address] 09274 Glucose (U) [Mass/Vol] Negative [facility] Comment on above: Performed By: #### 1 [id number], [id number] #### [facility] (DEFAULT) [address] [place] [address] 22859 Ketones Ql (U) Negative [facility] Comment on above: Performed By: #### 1 [id number], [id number] #### [facility] (DEFAULT) [address] [place] [address] 14198 Micro? Indicated Invalid Interpretation Code [facility] Comment on above: Result Comment: Resu lt created by rule GL_MAGR_ADD_UA_MICRO Performed By: #### 1 [id number], [id number] #### [facility] (DEFAULT) [address] [place] [address] 51443 UA Bilirubin Negative Normal [facility] Comment on above: Performed By: #### 1 [id number], [id number] #### [facility] (DEFAULT) [address] [place] [address] 16273 UA Blood SMALL Abnormal NEGATIVE [facility] Comment on above: Performed By: #### 1 [id number], [id number] #### [facility] (DEFAULT) [address] [place] [address] 82537 UA Clarity CLEAR Normal CLEAR [facility] Comment on above: Performed By: #### 1 [id number], [id number] #### [facility] (DEFAULT) [address] [place] [address] UA Leuk Est Negative Normal NEGATIVE [facility] Comment on above: Performed By: #### 1 [id number], [id number] #### [facility] (DEFAULT) [address] [place] [address] UA Nitrite Negative Normal NEGATIVE [facility] Comment on above: Performed By: #### 1 [id number], [id number] #### [facility] (DEFAULT) [address] [place] [address] UA pH 7.0 Normal 5-8 [facility] Comment on above: Performed By: #### 1 [id number], [id number] #### [facility] (DEFAULT) [address] [place] [address] UA Protein Negative Normal NEGATIVE [facility] Comment on above: Performed By: #### 1 [id number], [id number] #### [facility] (DEFAULT) [address] [place] [address] UA Spec Grav 1.020 Normal 1.001-1.035 [facility] Comment on above: Performed By: #### 1 [id number], [id number] #### [facility] (DEFAULT) [address] [place] [address] UA Urobilinogen 1.0 mg/dL Normal 0.2-1.0 [facility] Comment on above: Performed By: #### 1 [id number], [id number] #### [facility] (DEFAULT) [address] [place] [address] Urine Source Clean Catch Normal [facility] Comment on above: Performed By: #### 1 [id number], [id number] #### [facility] (DEFAULT) [address] [place] [address] Office/Clinic Noteon 025 Office/Clinic Note [id number] #1.00OTGTIFF Normal [facility] CBC AND AUTO DIFFon 05-31-19 25 ABSOLUTE BASOPHIL 0.0 X10E9/L Normal 0.0-0.2 [facility] Comment on above: Performed By: #### C REINA, BMP #### [facility] ([id number]) [address] [place] [address] 02619 Basophils/100 WBC (Bld) 1.0 % Normal [facility] Comment on above: Performed By: #### C REINA, BMP #### [facility] ([id number]) [address] [place] [address] 77709 Eosinophils (Bld) [#/Vol] 0.1 10*3/uL Normal 0.0-0.[address] [facility] Comment on above: Performed By: #### C REINA, BMP #### [facility] ([id number]) [address] [place] [address] 13734 Eosinophils/100 WBC (Bld) 5.0 % Normal [facility] Comment on above: Performed By: #### C REINA, BMP #### [facility] ([id number]) [address] [place] [address] 55985 Erythrocyte distribution width (RBC) [Ratio] 13.4 % Normal 11.5-15.[address] [facility] Comment on above: Performed By: #### C REINA, BMP #### [facility] ([id number]) [address] [place] [address] 12453 Hematocrit (Bld) [Volume fraction] 40.0 % Normal 35-[address] [facility] Comment on above: Performed By: #### C REINA, BMP #### [facility] ([id number]) [address] [place] [address] 58775 Hemoglobin (Bld) [Mass/Vol] 13.2 g/dL Normal 11.7-15.[address] [facility] Comment on above: Performed By: #### C BCA, BMP #### [facility] ([id number]) [address] [place] [address] 13921 LYMPHOCYTE, ATYPICAL 1.0 % Normal [facility] Comment on above: Performed By: #### C REINA, BMP #### [facility] ([id number]) [address] [place] [address] 98310 Lymphocytes (Bld) [#/Vol] 1.2 10*3/uL Normal 1.0-3.[address] [facility] Comment on above: Performed By: #### C REINA, BMP #### [facility] ([id number]) [address] [place] [address] 34757 Lymphocytes/100 WBC (Bld) 40.0 % Normal [facility] Comment on above: Performed By: #### C REINA, BMP #### [facility] ([id number]) [address] [place] [address] 41448 MCH (RBC) [Entitic mass] 28.9 pg Normal 27-[address] [facility] Comment on above: Performed By: #### C REINA, BMP #### [facility] ([id number]) [address] [place] [address] 75510 MCHC (RBC) [Mass/Vol] 33.1 g/dL Normal 32-36 [facility] Comment on above: Performed By: #### C BCA, BMP #### [facility] ([id number]) [address] [place] [address] 45292 MCV (RBC) [Entitic vol] 87 fL Normal 80-[address] [facility] Comment on above: Performed By: #### C BCA, BMP #### [facility] ([id number]) [address] [place] [address] 70798 Monocytes (Bld) [#/Vol] 0.3 10*3/uL Normal 0-0.[address] [facility] Comment on above: Performed By: #### C BCA, BMP #### [facility] ([id number]) [address] [place] [address] 01593 Monocytes/100 WBC (Bld) 11.0 % Normal [facility] Comment on above: Performed By: #### Aurora HUANG, BMP #### [facility] ([id number]) [address] [place] [address] 63172 Neutrophils (Bld) [#/Vol] 1.3 10*3/uL Low 1.5-6.[address] [facility] Comment on above: Performed By: #### Aurora HUANG, BMP #### [facility] ([id number]) [address] [place] [address] 24050 Platelet mean volume (Bld) [Entitic vol] 7.7 fL Normal 7-[address] [facility] Comment on above: Performed By: #### Aurora HUANG, BMP #### [facility] ([id number]) [address] [place] [address] 36532 Platelets (Bld) [#/Vol] 240 10*3/uL Normal 150-[address] [facility] Comment on above: Performed By: #### Aurora HUANG, BMP #### [facility] ([id number]) [address] [place] [address] 62431 RBC COUNT 4.59 X10E12/L Normal 3.80-5.[address] [facility] Comment on above: Performed By: #### Aurora HUANG, BMP #### [facility] ([id number]) [address] [place] [address] 23441 RBC morphology finding Nom (Bld) NORMAL Normal [facility] Comment on above: Performed By: #### Aurora HUANG, BMP #### [facility] ([id number]) [address] [place] [address] 95624 SEG NEUTROPHIL 42.0 % Normal [facility] Comment on above: Performed By: #### Aurora HUANG, BMP #### [facility] ([id number]) [address] [place] [address] 06131 WBC (Bld) [#/Vol] 2.9 10*3/uL Low 4.0-11.0 [facility] Comment on above: Performed By: #### C BCA, BMP #### [facility] ([id number]) [address] [place] [address] 94107 COMPREHENSIVE METABOLIC PANE Nomi 05-31-2024 Albumin [Mass/Vol] 4.2 g/dL Normal 3.2-5.3 [facility] Comment on above: Performed By: #### C BCA, BMP #### [facility] ([id number]) [address] [place] [address] 02134 ALP [Catalytic activity/Vol] 55 U/L Normal 39-[address] [facility] Comment on above: Performed By: #### C BCA, BMP #### [facility] ([id number]) [address] [place] [address] 06288 ALT [Catalytic activity/Vol] 22 U/L Normal 0-[address] [facility] Comment on above: Performed By: #### C BCA, BMP #### [facility] ([id number]) [address] [place] [address] 29387 Anion gap [Moles/Vol] 7 mmol/L Normal 5-15 [facility] Comment on above: Performed By: #### C BCA, BMP #### [facility] ([id number]) [address] [place] [address] 36857 AST [Catalytic activity/Vol] 18 U/L Normal 0-[address] [facility] Comment on above: Performed By: #### C BCA, BMP #### [facility] ([id number]) [address] [place] [address] 56479 Bilirubin [Mass/Vol] 1.3 mg/dL High 0.3-1.2 [facility] Comment on above: Performed By: #### C BCA, BMP #### [facility] ([id number]) [address] [place] [address] 45035 Calcium [Mass/Vol] 8.7 mg/dL Normal 8.5-10.5 [facility] Comment on above: Performed By: #### C BCA, BMP #### [facility] ([id number]) [address] [place] [address] 73933 Chloride [Moles/Vol] 105 mmol/L Normal 98-109 [facility] Comment on above: Performed By: #### C REINA, BMP #### [facility] ([id number]) [address] [place] [address] 41067 CO2 [Moles/Vol] 23 mmol/L Normal 22-[address] [facility] Comment on above: Performed By: #### C REINA, BMP #### [facility] ([id number]) [address] [place] [address] 50214 Creatinine [Mass/Vol] 0.78 mg/dL Normal 0.40-1.00 [facility] Comment on above: Result Comment: METH OD TRACEABLE TO IDMS STANDARD Performed By: #### C REINA, BMP #### [facility] ([id number]) [address] [place] [address] 84442 eGFR (CKD-EPI) NON-RACE DEPENDENT >90 Normal >[address] [facility] Comment on above: Result Comment: Reported eGFR is based on the CKD-EPI 2021 equation that does not use a race coefficient. Performed By: #### C REINA, BMP #### [facility] ([id number]) [address] [place] [address] 95664 Glucose [Mass/Vol] 92 mg/dL Normal 65-99 [facility] Comment on above: Performed By: #### C BCA, BMP #### [facility] ([id number]) [address] [place] [address] 34195 Potassium [Moles/Vol] 3.5 mmol/L Normal 3.5-5.0 [facility] Comment on above: Performed By: #### C BCA, BMP #### [facility] ([id number]) [address] [place] [address] 87558 Protein [Mass/Vol] 7.1 g/dL Normal 6.0-8.0 [facility] Comment on above: Performed By: #### C BCA, BMP #### [facility] ([id number]) [address] [place] [address] 04323 Sodium [Moles/Vol] 135 mmol/L Normal 134-146 [facility] Comment on above: Performed By: #### C BCA, BMP #### [facility] ([id number]) [address] [place] [address] 33897 Urea nitrogen [Mass/Vol] 12 mg/dL Normal 5-[address] [facility] Comment on above: Performed By: #### C BCA, BMP #### [facility] ([id number]) [address] [place] [address] BRAIN WO CONT STROKE ALER Ton 05-31-2024 CT BRAIN WO CONT STROKE ALERT CT BRAIN WO CONT STROKE ALERT CT BRAIN WO CONT STROKE ALERT INDICATION: TIA. TECHNIQUE: CT of the head without intravenous contrast. Reviewed in brain, bone, and soft tissue windows. COMPARISON: None. FINDINGS: No intracranial hemorrhage. No territorial loss of harden-white differentiation. The ventricular system is normal in size and morphology. No extra-axial fluid collections or shift of midline structures. Patent basal cisterns. No depressed or displaced calvarial fracture. IMPRESSION: 1. No acute intracranial abnormality. 2. MRI would better assess for occult abnormalities such as acute ischemia. All CT scans at this facility use dose modulation, iterative reconstruction, and/or weight based dosing when appropriate to reduce radiation dose to as low as reasonably achievable. Finalized by Rudi Story MD on 05/31/2024 11:15 AM Normal [facility] CT CTA CAROTIDon 05-31-[address] CTA CAROTID HISTORY: Left-sided facial droop, numbness, dizziness COMPARISON: None TECHNIQUE: * CTA of the carotid arteries performed after administration of 100 mL Omnipaque 350 intravenous contrast. 3-D post-processing techniques were utilized. * All CT scans at this facility use dose modulation, iterative reconstruction, and/or weight based dosing when appropriate to reduce radiation dose to as low as reasonably achievable. The NASCET methodology was utilized for calculation of percent stenosis. FINDINGS: The brachiocephalic artery and the left common carotid artery share a common origin. Left vertebral artery arises directly off of left aorta. Brachiocephalic and bilateral subclavian arteries appear widely patent. Bilateral carotid vasculature appears widely patent. Bilateral vertebral arteries appear unremarkable. High engagement of the right vertebral artery. Codominant vertebral arterial circulation. Visualized pulmonary parenchyma and cervical soft tissues appear unremarkable. Multilevel degenerative changes of the cervical spine. CTA head dictated centrally. IMPRESSION: * No evidence of focal stenosis, aneurysmal dilatation, dissection, or occlusion of the carotids or major arteries of the neck. * Incidentally noted high engagement of the right vertebral artery. Approved by Resident: Yahir Gutierrez MD on 05/31/2024 11:22 AM I, Rudi Story MD have personally reviewed the image(s) and agree with and/or edited the report Finalized by Rudi Story MD on 05/31/2024 11:39 AM Normal [facility] CT CTA HEADon 05-31-[address] CT[address] HEAD [address] CTA HEAD CLINICAL HISTORY: TIA. COMPARISON: Head CT same day. TECHNIQUE: Axial CT images were obtained through the head following the uneventful administration of intravenous contrast. Sagittal and coronal reformatted images were performed. MIP and volume rendered images were also post processed at a separate workstation to further define anatomy and potential pathology. 100 mL of [id number] intravenous contrast without complication. Arterial blood flow was measured to assist the stroke clinical team in the diagnosis of large vessel occlusion in patients undergoing screening for acute ischemic stroke using Rapid AI software when clinically indicated. FINDINGS: The distal internal carotid arteries are unremarkable. Normal distal vertebral and basilar arteries. There is no significant stenosis in the anterior, middle or posterior cerebral arteries. No evidence of sizable aneurysm or malformation. No large vessel occlusion. Patent posterior communicating arteries. IMPRESSION: 1. No large vessel arterial occlusion, significant stenosis, sizable aneursym, or malformation. 2. CTA carotid findings dictated separately. All CT scans at this facility use dose modulation, iterative reconstruction, and/or weight based dosing when appropriate to reduce radiation dose to as low as reasonably achievable. Finalized by Rudi Story MD on 05/31/2024 11:23 AM Normal [facility] Fibrin D-dimer DDU (PPP) [Ma ss/Vol]on 05-31-2024 D DIMER 172 ng/mL DDU Normal <[address] [facility] Comment on above: Result Comment: Results <255 ng/mL DDU: The presence of a VTE can safely be excluded with a negative D-Dimer result and Wells score. A negative result doesn't exclude the possibility of DIC. The test be repeated along with other diagnostic tests if the patient's symptoms persist or worsen. [email or web address] Performed By: #### C REINA, BMP #### [facility] ([id number]) [address] [place] [address] 40155 MAGNESIUMon 05-31-2024 Magnesium [Mass/Vol] 2.1 mg/dL Normal 1.8-2.6 [facility] Comment on above: Performed By: #### C REINA, BMP #### [facility] ([id number]) [address] [place] [address] 47929 Troponin I.cardiac High sens itivity method [Mass/Vol]on 05-31-2024 1 HOUR TROP I, HIGH SENSITIVITY 2 ng/L Normal <[address] [facility] Comment on above: Performed By: #### 8 9579-7 ####[facility] ([id number])[address] [place] [address] 81982 TROPONIN I, HIGH SENSITIVITY 2 ng/L Normal <[address] [facility] Comment on above: Performed By: #### C REINA, CMP, 43379-6, 33950-7, 79452-9 ####[facility] ([id number])[address] [place] [address] 97945 Patient Handouton 04-02-2024 Patient Handout [id number] 0#1.00OTGTIFF Normal [facility] Patient Handout [id number] 4#1.00OTGTIFF Normal [facility] Troponin I.cardiac High sens itivity method [Mass/Vol]on 02-15-2024 1 HOUR TROP I, HIGH SENSITIVITY 4 ng/L Normal <[address] [facility] Comment on above: Performed By: #### C REINA, BMP #### [facility] ([id number]) [address] [place] [address] 46983 CBC AND AUTO DIFFon 02-14-20 ABSOLUTE BASOPHIL 0.1 X10E9/L Normal 0.0-0.2 [facility] Comment on above: Performed By: #### C BCA, CMP, 63253-7, 53224-7 #### [facility] ([id number]) [address] [place] [address] 58154 ABSOLUTE NEUTROPHIL 2.1 X10E9/L Normal 1.5-6.6 [facility] Comment on above: Performed By: #### C BCA, CMP, 82862-5, 10517-1 #### [facility] ([id number]) [address] [place] [address] 88891 Basophils/100 WBC (Bld) 1.1 % Normal [facility] Comment on above: Performed By: #### C BCA, CMP, 81868-7, 17106-7 #### [facility] ([id number]) [address] [place] [address] 16488 Eosinophils (Bld) [#/Vol] 0.1 10*3/uL Normal 0.0-0.[address] [facility] Comment on above: Performed By: #### Aurora HUANG CMP, 54805-5, 65302-3 #### [facility] ([id number]) [address] [place] [address] 60404 Eosinophils/100 WBC (Bld) 2.8 % Normal [facility] Comment on above: Performed By: #### Aurora HUANG [facility], 63769-5, 83564-9 #### [facility] ([id number]) [address] [place] [address] 29587 Erythrocyte distribution width (RBC) [Ratio] 13.1 % Normal 11.5-15.[address] [facility] Comment on above: Performed By: #### Aurora HUANG CMP, 98479-9, 16824-9 #### [facility] ([id number]) [address] [place] [address] 68602 Hematocrit (Bld) [Volume fraction] 38.3 % Normal 35-[address] [facility] Comment on above: Performed By: #### Aurora HUANG CMP, 67252-8, 64770-7 #### [facility] ([id number]) [address] [place] [address] 96484 Hemoglobin (Bld) [Mass/Vol] 12.9 g/dL Normal 11.7-15.[address] [facility] Comment on above: Performed By: #### Aruora HUANG CMP, 09249-9, 39547-7 #### [facility] ([id number]) [address] [place] [address] 09408 Lymphocytes (Bld) [#/Vol] 2.0 10*3/uL Normal 1.0-3.[address] [facility] Comment on above: Performed By: #### Aurora HUANG CMP, 81737-7, 17179-9 #### [facility] ([id number]) [address] [place] [address] 65327 Lymphocytes/100 WBC (Bld) 41.2 % Normal [facility] Comment on above: Performed By: #### C REINA CMP, 61737-6, 56615-7 #### [facility] ([id number]) [address] [place] [address] 37187 MCH (RBC) [Entitic mass] 29.4 pg Normal 27-[address] [facility] Comment on above: Performed By: #### C REINA, CMP, 54450-3, 92099-1 #### [facility] ([id number]) [address] [place] [address] 35786 MCHC (RBC) [Mass/Vol] 33.7 g/dL Normal 32-36 [facility] Comment on above: Performed By: #### Aurora HUANG CMP, 19013-7, 92888-9 #### [facility] ([id number]) [address] [place] [address] 86216 MCV (RBC) [Entitic vol] 87 fL Normal 80-[address] [facility] Comment on above: Performed By: #### Aurora HUANG, CMP, 04791-4, 06461-9 #### [facility] ([id number]) [address] [place] [address] 35826 Monocytes (Bld) [#/Vol] 0.5 10*3/uL Normal 0-0.[address] [facility] Comment on above: Performed By: #### C REINA, CMP, 44401-0, 22806-5 #### [facility] ([id number]) [address] [place] [address] 32827 Monocytes/100 WBC (Bld) 10.2 % Normal [facility] Comment on above: Performed By: #### Aurora HUANG, CMP, 45840-5, 24689-9 #### [facility] ([id number]) [address] [place] [address] 29787 Neutrophils/100 WBC (Bld) 44.7 % Normal [facility] Comment on above: Performed By: #### C REINA, CMP, 53940-8, 81996-9 #### [facility] ([id number]) [address] [place] [address] 25480 Platelet mean volume (Bld) [Entitic vol] 7.5 fL Normal 7-[address] [facility] Comment on above: Performed By: #### C REINA, CMP, 60356-1, 09029-6 #### [facility] ([id number]) [address] [place] [address] 59336 Platelets (Bld) [#/Vol] 261 10*3/uL Normal 150-[address] [facility] Comment on above: Performed By: #### Aurora HUANG, CMP, 42459-7, 75716-1 #### [facility] ([id number]) [address] [place] [address] 99498 RBC COUNT 4.40 X10E12/L Normal 3.80-5.[address] [facility] Comment on above: Performed By: #### C REINA, CMP, 99690-1, 24634-4 #### [facility] ([id number]) [address] [place] [address] 75640 WBC (Bld) [#/Vol] 4.7 10*3/uL Normal 4.0-11.0 [facility] Comment on above: Performed By: #### C BCA, CMP, 20273-6, 44561-2 #### [facility] ([id number]) [address] [place] [address] 22877 COMPREHENSIVE METABOLIC PANE Nomi 02-14-2024 Albumin [Mass/Vol] 4.4 g/dL Normal 3.2-5.3 [facility] Comment on above: Performed By: #### Aurora HUANG, CMP, 48705-3, 07273-7 #### [facility] ([id number]) [address] [place] [address] 53677 ALP [Catalytic activity/Vol] 54 U/L Normal 39-[address] [facility] Comment on above: Performed By: #### C BCA, CMP, 49868-6, 97301-3 #### [facility] ([id number]) [address] [place] [address] 61064 ALT [Catalytic activity/Vol] 20 U/L Normal 0-[address] [facility] Comment on above: Performed By: #### C BCA, CMP, 37508-9, 23728-8 #### [facility] ([id number]) [address] [place] [address] 38067 Anion gap [Moles/Vol] 8 mmol/L Normal 5-15 [facility] Comment on above: Performed By: #### C BCA, CMP, 33972-6, 96366-0 #### [facility] ([id number]) [address] [place] [address] 57004 AST [Catalytic activity/Vol] 17 U/L Normal 0-[address] [facility] Comment on above: Performed By: #### C BCA, CMP, 71049-7, 90475-7 #### [facility] ([id number]) [address] [place] [address] 15276 Bilirubin [Mass/Vol] 1.0 mg/dL Normal 0.3-1.2 [facility] Comment on above: Performed By: #### C BCA, CMP, 80984-2, 60303-1 #### [facility] ([id number]) [address] [place] [address] 51716 Calcium [Mass/Vol] 8.7 mg/dL Normal 8.5-10.5 [facility] Comment on above: Performed By: #### C BCA, CMP, 54672-9, 46806-5 #### [facility] ([id number]) [address] [place] [address] 37897 Chloride [Moles/Vol] 105 mmol/L Normal 98-109 [facility] Comment on above: Performed By: #### C JAMES HUANG, 31584-6, 23514-8 #### [facility] ([id number]) [address] [place] [address] 68690 CO2 [Moles/Vol] 25 mmol/L Normal 22-[address] [facility] Comment on above: Performed By: #### C JAMES HUANG, 17988-7, 29355-2 #### [facility] ([id number]) [address] [place] [address] 88096 Creatinine [Mass/Vol] 0.69 mg/dL Normal 0.40-1.00 [facility] Comment on above: Result Comment: METH OD TRACEABLE TO IDMS STANDARD Performed By: #### C JAMES HUANG, 44068-8, 43316-1 #### [facility] ([id number]) [address] [place] [address] 32748 eGFR (CKD-EPI) NON-RACE DEPENDENT >90 Normal >[address] [facility] Comment on above: Result Comment: Reported eGFR is based on the CKD-EPI 2021 equation that does not use a race coefficient. Performed By: #### C JAMES HUANG, 93398-0, 05873-2 #### [facility] ([id number]) [address] [place] [address] 31134 Glucose [Mass/Vol] 91 mg/dL Normal 65-99 [facility] Comment on above: Performed By: #### C JAMES HUANG, 43606-4, 45190-5 #### [facility] ([id number]) [address] [place] [address] 38582 Potassium [Moles/Vol] 2.9 mmol/L Low 3.5-5.0 [facility] Comment on above: Performed By: #### C REINA CMP, 37290-5, 20033-4 #### [facility] ([id number]) [address] [place] [address] 00806 Protein [Mass/Vol] 7.3 g/dL Normal 6.0-8.0 [facility] Comment on above: Performed By: #### C REINA, CMP, 38349-9, 94082-8 #### [facility] ([id number]) [address] [place] [address] 87692 Sodium [Moles/Vol] 138 mmol/L Normal 134-146 [facility] Comment on above: Performed By: #### C REINA CMP, 81787-0, 20489-7 #### [facility] ([id number]) [address] [place] [address] 15380 Urea nitrogen [Mass/Vol] 12 mg/dL Normal 5-[address] [facility] Comment on above: Performed By: #### C REINA CMP, 79563-6, 23108-1 #### [facility] ([id number]) [address] [place] [address] 21674 Fibrin D-dimer DDU (PPP) [Ma ss/Vol]on 02-14-2024 D DIMER <150 Normal <[address] [facility] Comment on above: Result Comment: Results <255 ng/mL DDU: The presence of a VTE can safely be excluded with a negative D-Dimer result and Wells score. A negative result doesn't exclude the possibility of DIC. The test be repeated along with other diagnostic tests if the patient's symptoms persist or worsen. [email or web address] Performed By: #### C REINA, CMP, 27701-8, 64700-8 #### [facility] ([id number]) [address] [place] [address] 34784 Troponin I.cardiac High sens itivity method [Mass/Vol]on 02-14-2024 TROPONIN I, HIGH SENSITIVITY 3 ng/L Normal <[address] [facility] Comment on above: Performed By: #### C REINA, THANIA #### [facility] ([id number]) [address] [facility], [place] [address] XR CHEST 1 VWon 02-14-2024 XR CHEST 1 VW XR CHEST 1 VW Single view chest History: Difficulty breathing, shortness of breath Comparison: 01/25/2018 Impression: No acute pulmonary process. No pneumothorax or pleural effusion. Nonenlarged heart. Finalized by Steven Saleh MD on 02/14/2024 11:37 PM Normal [facility] XR CERVICAL SPINE AP/LAT/FLE X/EXT/OBLIQUESon 10-22-2023 XR CERVICAL SPINE AP/LAT/FLEX/EXT/OBLIQU ES Cervical spine with flexion-extension. FINDINGS: Cervical vertebral bodies are normal in height and alignment on flexion, extension, and neutral position. Loss of cervical lordosis. No prevertebral soft tissue swelling. Diffuse disc space narrowing C4-5 and C5-6 with anterior osteophytes at the base of C5 and C6. No fracture, dislocation, or bone lesion. IMPRESSION: Moderate degenerative change lower cervical spine. Loss of cervical lordosis may be secondary to degenerative change, muscle spasm, or patient position. ELECTRONICALLY SIGNED BY: Joseph Foss MD Normal Not Available XR SHOULDER 2+ VIEWS LEFTon 10-22-2023 XR SHOULDER 2+ VIEWS LEFT Left shoulder. FINDINGS: No fracture, dislocation, bone lesion. Joint spaces maintained. IMPRESSION: Negative left shoulder. ELECTRONICALLY SIGNED BY: Joseph Foss MD Normal Not Available BASIC METABOLIC PANLon 10-18 Anion gap [Moles/Vol] 8 mmol/L Normal 5-15 [facility] Comment on above: Performed By: #### C REINA, BMP #### [facility] ([id number]) [address] [facility], [place] [address] Calcium [Mass/Vol] 9.1 mg/dL Normal 8.5-10.5 [facility] Comment on above: Performed By: #### C REINA BMP #### [facility] ([id number]) [address] [place] [address] 10388 Chloride [Moles/Vol] 104 mmol/L Normal 98-109 [facility] Comment on above: Performed By: #### C BCA, BMP #### [facility] ([id number]) [address] [place] [address] 54986 CO2 [Moles/Vol] 24 mmol/L Normal 22-[address] [facility] Comment on above: Performed By: #### C BCA, BMP #### [facility] ([id number]) [address] [place] [address] 56029 Creatinine [Mass/Vol] 1.05 mg/dL High 0.40-1.00 [facility] Comment on above: Result Comment: METH OD TRACEABLE TO IDMS STANDARD Performed By: #### C BCA, BMP #### [facility] ([id number]) [address] [place] [address] 38338 GFR/1.73 sq M.predicted among non-blacks MDRD (S/P/Bld) [Vol rate/Area] 67 mL/min/{1.73_m2} Normal >[address] [facility] Comment on above: Result Comment: Reported eGFR is based on the CKD-EPI 2020 equation that does not use a race coefficient. Performed By: #### C BCA, BMP #### [facility] ([id number]) [address] [place] [address] 89379 Glucose [Mass/Vol] 85 mg/dL Normal 65-99 [facility] Comment on above: Performed By: #### C BCA, BMP #### [facility] ([id number]) [address] [place] [address] 33966 Potassium [Moles/Vol] 3.3 mmol/L Low 3.5-5.0 [facility] Comment on above: Performed By: #### C BCA, BMP #### [facility] ([id number]) [address] [place] [address] 40264 Sodium [Moles/Vol] 136 mmol/L Normal 134-146 [facility] Comment on above: Performed By: #### C REINA, BMP #### [facility] ([id number]) [address] [place] [address] 29875 Urea nitrogen [Mass/Vol] 15 mg/dL Normal 5-[address] [facility] Comment on above: Performed By: #### C REINA, BMP #### [facility] ([id number]) [address] [place] [address] 32992 CBC AND AUTO DIFFon 10-19-19 24 ABSOLUTE BASOPHIL 0.0 X10E9/L Normal 0.0-0.2 [facility] Comment on above: Performed By: #### C REINA, BMP #### [facility] ([id number]) [address] [place] [address] 66132 ABSOLUTE NEUTROPHIL 4.7 X10E9/L Normal 1.5-6.6 [facility] Comment on above: Performed By: #### C REINA, BMP #### [facility] ([id number]) [address] [place] [address] 15904 Basophils/100 WBC (Bld) 0.6 % Normal [facility] Comment on above: Performed By: #### C REINA, BMP #### [facility] ([id number]) [address] [place] [address] 02183 Eosinophils (Bld) [#/Vol] 0.3 10*3/uL Normal 0.0-0.[address] [facility] Comment on above: Performed By: #### C REINA, BMP #### [facility] ([id number]) [address] [place] [address] 44564 Eosinophils/100 WBC (Bld) 3.5 % Normal [facility] Comment on above: Performed By: #### C REINA, BMP #### [facility] ([id number]) [address] [place] [address] 41235 Erythrocyte distribution width (RBC) [Ratio] 13.1 % Normal 11.5-15.[address] [facility] Comment on above: Performed By: #### C BCA, BMP #### [facility] ([id number]) [address] [place] [address] 37101 Hematocrit (Bld) [Volume fraction] 37.9 % Normal 35-[address] [facility] Comment on above: Performed By: #### C REINA, BMP #### [facility] ([id number]) [address] [place] [address] 66293 Hemoglobin (Bld) [Mass/Vol] 12.8 g/dL Normal 11.7-15.[address] [facility] Comment on above: Performed By: #### C REINA, BMP #### [facility] ([id number]) [address] [place] [address] 46946 Lymphocytes (Bld) [#/Vol] 1.8 10*3/uL Normal 1.0-3.[address] [facility] Comment on above: Performed By: #### C REINA, BMP #### [facility] ([id number]) [address] [place] [address] 04673 Lymphocytes/100 WBC (Bld) 24.1 % Normal [facility] Comment on above: Performed By: #### C BCA, BMP #### [facility] ([id number]) [address] [place] [address] 92129 MCH (RBC) [Entitic mass] 30.0 pg Normal 27-[address] [facility] Comment on above: Performed By: #### C BCA, BMP #### [facility] ([id number]) [address] [place] [address] 13669 MCHC (RBC) [Mass/Vol] 33.7 g/dL Normal 32-36 [facility] Comment on above: Performed By: #### C REINA, BMP #### [facility] ([id number]) [address] [place] [address] 05043 MCV (RBC) [Entitic vol] 89 fL Normal 80-[address] [facility] Comment on above: Performed By: #### C REINA, BMP #### [facility] ([id number]) [address] [place] [address] 66730 Monocytes (Bld) [#/Vol] 0.7 10*3/uL Normal 0-0.[address] [facility] Comment on above: Performed By: #### C REINA, BMP #### [facility] ([id number]) [address] [place] [address] 91538 Monocytes/100 WBC (Bld) 9.3 % Normal [facility] Comment on above: Performed By: #### C REINA, BMP #### [facility] ([id number]) [address] [place] [address] 57430 Neutrophils/100 WBC (Bld) 62.5 % Normal [facility] Comment on above: Performed By: #### C REINA, BMP #### [facility] ([id number]) [address] [place] [address] 34446 Platelet mean volume (Bld) [Entitic vol] 7.3 fL Normal 7-[address] [facility] Comment on above: Performed By: #### C REINA, BMP #### [facility] ([id number]) [address] [place] [address] 47688 Platelets (Bld) [#/Vol] 262 10*3/uL Normal 150-[address] [facility] Comment on above: Performed By: #### C REINA, BMP #### [facility] ([id number]) [address] [place] [address] 26620 RBC COUNT 4.26 X10E12/L Normal 3.80-5.[address] [facility] Comment on above: Performed By: #### C REINA, BMP #### [facility] ([id number]) [address] [place] [address] 11237 WBC (Bld) [#/Vol] 7.5 10*3/uL Normal 4.0-11.0 [facility] Comment on above: Performed By: #### C REINA, BMP #### [facility] ([id number]) [address] [place] [address] 65873 CHLAMYDIA/GC PCR, Uon 2023 CHLAMYDIA/GC PCR, U SPECIMEN SOURCE CLEAN CATCH MIDSTREAM URINE CHLAMYDIA DNA(PCR) Negative (qualifier value) Chlamydia trachomatis not detected by nucleic acid amplification. This does not exclude the possibility of infection because results are dependent on adequate specimen collection. GONORRHOEAE DNA(PCR) Negative (qualifier value) Neisseria gonorrhoeae not detected by nucleic acid amplification. This does not exclude the possibility of infection because results are dependent on adequate specimen collection. Normal [facility] Comment on above: Performed By: #### C #### [facility] ([id number]) [address] [place] [address] 61767 [facility] ([id number]) [address], [address] [place] [address] CT ABDOMEN AND PELVIS WO CON Ton 10-19-2023 CT ABDOMEN AND PELVIS WO CONT CT ABDOMEN AND PELVIS WO CONT CLINICAL INFORMATION: Abdominal/flank pain, stone suspected. TECHNIQUE: CT Abdomen and Pelvis without intravenous contrast. All CT scans at this facility use dose modulation, iterative reconstruction, and/or weight based dosing when appropriate to reduce radiation dose to as low as reasonably achievable. COMPARISON: 01/01/2028 FINDINGS: Acute findings: No free fluid or free air. No obvious features of obstructive uropathy. Right lower quadrant unremarkable. Normal-appearing appendix. Contracted gallbladder. Chronic findings: Liver spleen pancreas are normal. No pelvic mass or fluid collection. Colonic diverticulosis no acute diverticulitis. Degenerative changes of bones particularly in the lower lumbosacral spine. IMPRESSION: * No acute findings no obstructive uropathy. * Finalized by Alvin Dey MD on 10/19/2023 1:18 AM Normal [facility] TRICHOMONAS PCRon 10-19-2023 TRICHOMONAS PCR SPECIMEN SOURCE CLEAN CATCH MIDSTREAM URINE TRICHOMONAS PCR Not detected (qualifier value) Trichomonas vaginalis not detected NOTE Assay methodology is nucleic acid amplification by real-time PCR for detection of Trichomonas vaginalis DNA performed on [employer] System. Normal [facility] Comment on above: Performed By: #### T RKPCR #### [facility] ([id number]) [address] [place] [address] 33196 [facility] ([id number]) [address] [place] [address], [address] [place] [address] URINALYSISon 10-19-2023 Bilirubin Ql (U) Negative Normal NEG [facility] Comment on above: Performed By: #### U A #### [facility] ([id number]) [address] [place] [address] [place] [address] BLOOD/HGB MODERATE Abnormal NEG [facility] Comment on above: Performed By: #### U A #### [facility] ([id number]) [address] [place] [address] 08735 Color (U) YELLOW Normal YELLOW [facility] Comment on above: Performed By: #### U A #### [facility] ([id number]) [address] [place] [address] [place] [address] Glucose Ql (U) Negative Normal NEG [facility] Comment on above: Performed By: #### U A #### [facility] ([id number]) [address] [place] [address] [place] [address] Ketones Ql (U) Negative Normal NEG [facility] Comment on above: Performed By: #### U A #### [facility] ([id number]) [address] [place] [address] [place] [address] Leukocyte esterase Test strip Ql (U) SMALL Abnormal NEG [facility] Comment on above: Performed By: #### U A #### [facility] ([id number]) [address] [place] [address] [place] [address] Nitrite Ql (U) Negative Normal NEG [facility] Comment on above: Performed By: #### U A #### [facility] ([id number]) [address] [place] [address] 03744 pH (U) 6.0 [pH] Normal 5.0-8.[address] [facility] Comment on above: Performed By: #### U A #### [facility] ([id number]) [address] [place] [address] 11059 Protein Ql (U) Trace Abnormal NEG [facility] Comment on above: Performed By: #### U A #### [facility] ([id number]) [address] [place] [address] [place] [address] R.B.CELLS 4 /hpf Normal 0-[address] [facility] Comment on above: Performed By: #### U A #### [facility] ([id number]) [address] [place] [address] [place] [address] Specific gravity (U) [Rel density] 1.025 Normal 1.003-1.[address] [facility] Comment on above: Performed By: #### U A #### [facility] ([id number]) [address] [place] [address] [place] [address] SQUAMOUS EPITHELIUM 4 /hpf Normal 0-5 [facility] Comment on above: Performed By: #### U A #### [facility] ([id number]) [address] [place] [address] [place] [address] TRANSITIONAL EPITH 1 /hpf High 0 [facility] Comment on above: Performed By: #### U A #### [facility] ([id number]) [address] [place] [address] 64475 TURBIDITY CLEAR Normal CLEAR [facility] Comment on above: Performed By: #### U A #### [facility] ([id number]) [address] [place] [address] Urobilinogen Qn (U) 0.2 {Del'U}/dL Normal <1.[address] [facility] Comment on above: Performed By: #### U A #### [facility] ([id number]) [address] [place] [address]237 W.B.CELLS 6 /hpf High 0-[address] [facility] Comment on above: Performed By: #### U A #### [facility] ([id number]) [address] [place] [address]16 URINE CULTUREon 10-19-2023 Bacteria identified Cx Nom (U) CULTURE RESULTS 10-50,000 ORGANISMS/mL NORMAL UROGENITAL LIAM Normal [facility] Comment on above: Performed By: #### 6 30-4 #### [facility] ([id number]) [address] [place] [address] Patient Educationon 01-09-20 23 Patient Education Obstetrics and Gynecology Kegel Exercises [...] provider. Document Revised: 08/17/2021 Document Reviewed: 08/17/2021 [employer] Patient Education ? 2022 [employer]. [facility] Urology Office/Clinic Noteon 01-08-2023 Urology Office/Clinic Note Chief Complaint F/U to Cysto HPI Staff Last seen in our office 10/30/22 by JOE as a referral due to Microscopic Hematuria, Flank pain & Mixed Incontinence. Pt. was not able to give a urine sample today. S/P Cysto/UD by PRW 11/13/22 *Macrobid 100mg qd [id number] given post op Renal US 11/13/22 Dysuria: [...] Cysto/UD by PRW 11/13/22 *Macrobid 100mg qd [id number] given post op Pt states she is [...] acknowledges understanding. Follow-up With When Contact Information FRED PA-C, AMELIE E, URL [address] [place] [address] Additional Instructions: PRN Patient Education Lamar Phoenix, [...] Father. Migraine: Mother. Parkinsons disease: Father. [facility] Comment on above: Result Comment: Elec tronically Signed By: AMELIE ESPARZA PA-C\.br\Date and Time Signed: 01/08/23 15:16 EDT\.br\Electronically Co-Signed By: Lamar Estrada\.br\Date and Time Co-Signed: 01/08/23 15:11 EDT Lab Reportson 11-26-2022 Lab Reports [id number] 6#1.00CD:127 [facility] Lab Reports [id number] 8#1.00CD:127 [facility] Lab Reports [id number] 7#1.00CD:127 [facility] Lab Reports [id number] 3#1.00CD:127 [facility] Lab Reports [id number] 9#1.00CD:127 [facility] RAD - Ultrasound Reporton RAD - Ultrasound Report [id number] #1.00CD:127 [facility] Operative Reporton Operative Report [id number] 7#1.00CD:127 [facility] Provider Letteron 11-14-2022 Provider Letter November 14, 2022 NEEL GARCIA [address] [place] [address] : 1980 To Whom It May Concern, [...] Constantino Martinez M.D., F.A.C.S. [facility] [address] [place] [address] [facility] RAD - Ultrasound Reporton RAD - Ultrasound Report [id number] #1.00CD:127 [facility] Physician Referralon 023 Physician Referral [id number] #1.00CD:127 [facility] Screenson 11-02-2022 Screens [id number] 8#1.00CD:127 [facility] Pre-Certification Formon Pre-Certification Form [id number] 08#1.00CD:127 [facility] Ambulatory Visit Summaryon 0 10-30-2022 Ambulatory Visit Summary NEEL GARCIA :1980 Visit Date:10/30/2022 Ambulatory Visit Instructions Your [...] AMELIE ESPARZA PA-C Where: [facility] Consent for Procedure/Surger yon 10-30-2022 Consent for Procedure/Surgery [id number] #1.00CD:127 [facility] HERPES SIMPLEX VIRUS (HSV) C ULTUREon 06-05-2022 HSV Culture/Type Comment Normal [facility] Comment on above: Result Comment: Nega tive No Herpes simplex virus isolated. Performed By: #### I NFLUAB #### [facility] [address] [place] [address] Dr. Cherie Dior CBC AUTO DIFFon 05-30-2022 BASO # 0.1 103/ul Normal 0.0-0.1 [facility] Comment on above: Performed By: #### I NFLUAB #### [facility] [address] [place] [address] Dr. Cherie Dior Basophils/100 WBC (Bld) 1.2 % Normal 0.2-2.0 [facility] Comment on above: Performed By: #### I NFLUAB #### [facility] [address] [place] [address] Dr. Cherie Dior EO # 0.1 103/ul Normal 0.0-0.7 [facility] Comment on above: Performed By: #### I NFLUAB #### [facility] [address] [place] [address] Dr. Cherie Dior Eosinophils/100 WBC (Bld) 1.9 % Normal 0.9-7.0 [facility] Comment on above: Performed By: #### I NFLUAB #### [facility] [address] [place] [address] Dr. Cherie Dior Erythrocyte distribution width (RBC) [Ratio] 14.9 % Normal 11.0-15.0 [facility] Comment on above: Performed By: #### I NFLUAB #### [facility] [address] [place] [address] Dr. Cherie Dior Hematocrit (Bld) [Volume fraction] 40.7 % Normal 36.0-48.0 [facility] Comment on above: Performed By: #### I NFLUAB #### [facility] [address] [place] [address] Dr. Cherie Dior Hemoglobin (Bld) [Mass/Vol] 12.8 g/dL Normal 12.0-16.0 [facility] Comment on above: Performed By: #### I NFLUAB #### [facility] [address] [place] [address] Dr. Cherie Dior IG # 0.05 10e3/ul Critically high 0.00-0.03 [facility] Comment on above: Performed By: #### I NFLUAB #### [facility] [address] [place] [address] Dr. Cherie iDor IG % 1.2 % Critically high 0.0-0.5 [facility] Comment on above: Performed By: #### I NFLUAB #### [facility] [address] [address] [address] Cherie Dior LYMPH # 0.9 103/ul Critically low 1.2-3.8 [facility] Comment on above: Performed By: #### I NFLUAB #### [facility] [address] [address] [address] Cherie Dior Lymphocytes/100 WBC (Bld) 21.8 % Normal 20.5-60.0 [facility] Comment on above: Performed By: #### I NFLUAB #### [facility] [address] [address] [address] Cherie Dior MANUAL DIFF REQ NO Normal [facility] Comment on above: Performed By: #### I NFLUAB #### [facility] [address] [address] [address] Cherie Dior MCH (RBC) [Entitic mass] 27.4 pg Normal 26.7-34.0 [facility] Comment on above: Performed By: #### I NFLUAB #### [facility] [address] [address] [address] Cherie Dior MCHC (RBC) [Mass/Vol] 31.4 g/dL Normal 29.9-35.2 [facility] Comment on above: Performed By: #### I NFLUAB #### [facility] [address] [address] [address] Cherie Dior MCV (RBC) [Entitic vol] 87.0 fL Normal 81.0-99.0 [facility] Comment on above: Performed By: #### I NFLUAB #### [facility] [address] [address] [address] Cherie Dior MONO # 0.7 103/ul Normal 0.3-0.8 [facility] Comment on above: Performed By: #### I NFLUAB #### [facility] [address] [address] [address] Cherie Dior Monocytes/100 WBC (Bld) 16.6 % Critically high 1.7-12.0 [facility] Comment on above: Performed By: #### I NFLUAB #### [facility] [address] [place] [address] Dr. Cherie Dior NEUT # 2.5 103/ul Normal 1.4-6.5 [facility] Comment on above: Performed By: #### I NFLUAB #### [facility] [address] [place] [address] Dr. Cherie Dior Neutrophils/100 WBC (Bld) 57.3 % Normal 43.0-75.0 [facility] Comment on above: Performed By: #### I NFLUAB #### [facility] [address] [place] [address] Dr. Cherie Dior Platelet mean volume (Bld) [Entitic vol] 10.2 fL Normal 9.5-13.5 [facility] Comment on above: Performed By: #### I NFLUAB #### [facility] [address] [place] [address] Dr. Cherie Dior PLT 278 103/ul Normal 150-450 [facility] Comment on above: Performed By: #### I NFLUAB #### [facility] [address] [place] [address] Dr. Cherie Dior RBC 4.68 106/ul Normal 4.20-5.40 [facility] Comment on above: Performed By: #### I NFLUAB #### [facility] [address] [place] [address] Dr. Cherie Dior WBC 4.3 103/ul Normal 4.0-11.0 [facility] Comment on above: Performed By: #### I NFLUAB #### [facility] [address] [place] [address] Dr. Cherie Dior CULTURE URINEon 05-30-2022 CULTURE URINE Culture Observations: NO GROWTH. Normal [facility] Comment on above: Performed By: #### I NFLUAB #### [facility] [address] [place] [address] Dr. Cherie Dior UA (CLEAN/CATCH) MANAGER UNIX/MICRO I F IND.on 05-30-2022 Bilirubin Ql (U) Negative Normal NEGATIVE The [facility] Comment on above: Performed By: #### B REGISTERED NURSE AMBULATORY, CMADM, CMP #### [facility] [address] [address] [address] Cherie Dior Clarity (U) CLEAR Normal CLEAR [facility] Comment on above: Performed By: #### B REGISTERED NURSE AMBULATORY, CMADM, CMP #### [facility] [address] [address] [address] Cherie Dior Color (U) LT. YELLOW Normal YELLOW [facility] Comment on above: Performed By: #### B REGISTERED NURSE AMBULATORY, CMADM, CMP #### [facility] [address] [address] [address] Cherie Dior Glucose Ql (U) Negative Normal NEGATIVE [facility] Comment on above: Performed By: #### B REGISTERED NURSE AMBULATORY, CMADM, CMP #### [facility] [address] [place] [address] Dr. Cherie Dior Hemoglobin Ql (U) LARGE Abnormal NEGATIVE [facility] Comment on above: Performed By: #### B REGISTERED NURSE AMBULATORY, CMADM, CMP #### [facility] [address] [place] [address] Dr. Cherie Dior Ketones Ql (U) TRACE Abnormal NEGATIVE [facility] Comment on above: Performed By: #### B REGISTERED NURSE AMBULATORY, CMADM, CMP #### [facility] [address] [place] [address] Dr. Cherie Dior LEUKOCYTES MODERATE Abnormal NEGATIVE [facility] Comment on above: Performed By: #### B REGISTERED NURSE AMBULATORY, CMADM, CMP #### [facility] [address] [address] [address] Cherie Dior Nitrite Ql (U) Negative Normal NEGATIVE [facility] Comment on above: Performed By: #### B REGISTERED NURSE AMBULATORY, CMADM, CMP #### [facility] [address] [place] [address] Dr. Cherie Dior pH (U) 6.0 [pH] Normal 5-9 [facility] Comment on above: Performed By: #### B REGISTERED NURSE AMBULATORY, CMADM, CMP #### [facility] [address] [place] [address] Dr. Cherie Dior SPEC GRAVITY 1.020 Normal 1.005-<=1.025 [facility] Comment on above: Performed By: #### B REGISTERED NURSE AMBULATORY, KAIDM, CMP #### [facility] [address] [place] [address] Dr. Cherie Dior UA PROTEIN 30 mg/dl Abnormal NEGATIVE/ TRACE [facility] Comment on above: Performed By: #### B REGISTERED NURSE AMBULATORY, CMADM, CMP #### [facility] [address] [place] [address] Dr. Cherie Dior UR MICRO IND INDICATED Normal [facility] Comment on above: Performed By: #### B REGISTERED NURSE AMBULATORY, KAIDM, CMP #### [facility] [address] [place] [address] Dr. Cherie Dior Urobilinogen Qn (U) 0.2 {Del'U}/dL Normal 0.2 - 1. 0 [facility] Comment on above: Performed By: #### B REGISTERED NURSE AMBULATORY, KAIDM, CMP #### [facility] [address] [place] [address] Dr. Cherie Dior URINE MICROSCOPIC ONLYon BACTERIA SMALL Abnormal NONE SEEN The [facility] Comment on above: Performed By: #### B REGISTERED NURSE AMBULATORY, KAIDM, CMP #### [facility] [address] [place] [address] Dr. Cherie Dior Bacteria identified Cx Nom (U) INDICATED Normal [facility] Comment on above: Performed By: #### B REGISTERED NURSE AMBULATORY, KAIDM, CMP #### [facility] [address] [place] [address] Dr. Cherie Dior CAST NONE SEEN Normal NONE SEEN [facility] Comment on above: Performed By: #### B REGISTERED NURSE AMBULATORY, CMADM, CMP #### [facility] [address] [place] [address] Dr. Cherie Dior Crystals LM Nom (Urine sed) NONE SEEN Normal NONE SEEN [facility] Comment on above: Performed By: #### B REGISTERED NURSE AMBULATORY, CMADM, CMP #### [facility] [address] [place] [address] Dr. Cherie Dior Epithelial cells LM Ql (Urine sed) MODERATE Abnormal NONE SEEN /RARE [facility] Comment on above: Performed By: #### B REGISTERED NURSE AMBULATORY, CMADM, CMP #### [facility] [address] [place] [address] Dr. Cherie Dior MUCOUS TRACE Abnormal NONE SEEN [facility] Comment on above: Performed By: #### B REGISTERED NURSE AMBULATORY, CMADM, CMP #### [facility] [address] [place] [address] Dr. Cherie Dior RBC 2-5 Abnormal 0-2 [facility] Comment on above: Performed By: #### B REGISTERED NURSE AMBULATORY, CMADM, CMP #### [facility] [address] [place] [address] Dr. Cherie Dior WBC 2-5 Abnormal NONE SEEN [facility] Comment on above: Performed By: #### B REGISTERED NURSE AMBULATORY, CMADM, CMP #### [facility] [address] [place] [address] Dr. Cherie Dior Covid-19 PCR ([facility])on SARS-CoV-2 (COVID-19) RNA JULEE+probe Ql (Unsp spec) Not detected Normal NOT DETECTED [facility] Comment on above: Result Comment: When [...] for this test is supported by the [employer] of Health and Human Service's declaration that [...] used). Performed By: #### I NFLUAB #### [facility] [address] [place] [address] Dr. Cherie Dior GROUP A STREP CULTUREon S. pyogenes Ag Ql (Unsp spec) Culture Observations: NEGATIVE FOR GROUP A STREPTOCOCCUS. Normal [facility] Comment on above: Performed By: #### G RASTCX, SSCRN #### [facility] [address] [place] [address] Dr. Cherie Dior INFLUENZA A AND B AGon 05-27 INFLUANEGH SEE BELOW Normal [facility] Comment on above: Result Comment: Nega tive for Flu A protein angiten. Infection due to Flu A cannot be ruled out. Flu A angiten in the sample may be below the detection limit of the test. Performed By: #### I NFLUAB #### [facility] [address] [place] [address] Dr. Cherie Dior INFLUBNEGH SEE BELOW Normal [facility] Comment on above: Result Comment: Nega tive for Flu B protein antigen. Infection due to Flu B cannot be ruled out. Flu B antigen in the sample may be below the detection limit of the test. Performed By: #### I NFLUAB #### [facility] [address] [place] [address] Dr. Cherie Dior INFLUENZA A AG Negative Normal NEGATIVE SEE COMMENT [facility] Comment on above: Performed By: #### I NFLUAB #### [facility] [address] [place] [address] Dr. Cherie Dior INFLUENZA B AG Negative Normal NEGATIVE SEE COMMENT [facility] Comment on above: Performed By: #### I NFLUAB #### [facility] [address] [place] [address] Dr. Cherie Dior STREPT SCREENon 05-27-2022 STREP SCREEN A Negative Normal NEGATIVE [facility] Comment on above: Performed By: #### G ASHLEYTCX, SSCRN #### [facility] [address] [place] [address] Dr. Cherie Dior US TOMAS DOP LEG [...] by: BRYAN JONES Date: 2022-02-27 06:57 Normal [facility] BNPon 02-25-2022 Natriuretic peptide B (Bld) [Mass/Vol] 36.0 pg/mL Normal <=450.0 [facility] Comment on above: Performed By: #### B REGISTERED NURSE AMBULATORY, CMADM, CMP #### [facility] [address] [place] [address] Dr. Cherie Dior CARDIAC ALEX ADMITon 022 CK [Catalytic activity/Vol] 150 U/L Normal 26-192 [facility] Comment on above: Performed By: #### B REGISTERED NURSE AMBULATORY, CMADM, CMP #### [facility] [address] [place] [address] Dr. Cherie Dior CK.MB [Mass/Vol] 0.43 ng/mL Normal <=3.60 The [facility] Comment on above: Performed By: #### B REGISTERED NURSE AMBULATORY, CMADM, CMP #### [facility] [address] [place] [address] Dr. Cherie Dior HSTROP 4.7 pg/mL Normal 4.0-51.3 [facility] Comment on above: Result Comment: CUT- OFF POINTS HAVE BEEN ESTABLISHED BASED ON THE FOURTH UNIVERSAL DEFINITIONS OF MYOCARDIAL INFARCTION. THE UPPER REFERENCE LIMIT (URL) OF TROPONIN, DEFINED THE 99TH PERCENTILE OF cTnI DISTRIBUTION IN A REFERENCE POPULATION, HAS BEEN CONFIRMED THE DECISION THRESHOLD FOR WI DIAGNOSIS. Performed By: #### B REGISTERED NURSE AMBULATORY, CMADM, CMP #### [facility] [address] [place] [address] Dr. Cherie Dior FRANCISCO 32 ng/mL Normal 9-82 [facility] Comment on above: Performed By: #### B REGISTERED NURSE AMBULATORY, CMADM, CMP #### [facility] [address] [place] [address] Dr. Cherie Dior CBC AUTO DIFFon 02-25-2022 BASO # 0.0 103/ul Normal 0.0-0.1 [facility] Comment on above: Performed By: #### B REGISTERED NURSE AMBULATORY, CMADM, CMP #### [facility] [address] [place] [address] Dr. Cherie Dior Basophils/100 WBC (Bld) 0.4 % Normal 0.2-2.0 [facility] Comment on above: Performed By: #### B REGISTERED NURSE AMBULATORY, CMADM, CMP #### [facility] [address] [place] [address] Dr. Cherie Dior EO # 0.2 103/ul Normal 0.0-0.7 [facility] Comment on above: Performed By: #### B REGISTERED NURSE AMBULATORY, CMADM, CMP #### [facility] [address] [place] [address] Dr. Cherie Dior Eosinophils/100 WBC (Bld) 1.8 % Normal 0.9-7.0 [facility] Comment on above: Performed By: #### B REGISTERED NURSE AMBULATORY, CMADM, CMP #### [facility] [address] [place] [address] Dr. Cherie Dior Erythrocyte distribution width (RBC) [Ratio] 12.6 % Normal 11.0-15.0 [facility] Comment on above: Performed By: #### B REGISTERED NURSE AMBULATORY, CMADM, CMP #### [facility] [address] [place] [address] Dr. Cherie Dior Hematocrit (Bld) [Volume fraction] 32.9 % Critically low 36.0-48.0 [facility] Comment on above: Performed By: #### B REGISTERED NURSE AMBULATORY, CMADM, CMP #### [facility] [address] [place] [address] Dr. Cherie Dior Hemoglobin (Bld) [Mass/Vol] 10.5 g/dL Critically low 12.0-16.0 [facility] Comment on above: Performed By: #### B REGISTERED NURSE AMBULATORY, CMADM, CMP #### [facility] [address] [place] [address] Dr. Cherie Dior IG # 0.12 10e3/ul Critically high 0.00-0.03 [facility] Comment on above: Performed By: #### B REGISTERED NURSE AMBULATORY, CMADM, CMP #### [facility] [address] [address] [address] Cherie Dior IG % 1.4 % Critically high 0.0-0.5 [facility] Comment on above: Performed By: #### B REGISTERED NURSE AMBULATORY, CMADM, CMP #### [facility] [address] [address] [address] Cherie Dior LYMPH # 1.7 103/ul Normal 1.2-3.8 [facility] Comment on above: Performed By: #### B REGISTERED NURSE AMBULATORY, CMADM, CMP #### [facility] [address] [address] [address] Cherie Dior Lymphocytes/100 WBC (Bld) 20.1 % Critically low 20.5-60.0 [facility] Comment on above: Performed By: #### B REGISTERED NURSE AMBULATORY, CMADM, CMP #### [facility] [address] [place] [address] Dr. Cherie Dior MANUAL DIFF REQ NO Normal [facility] Comment on above: Performed By: #### B REGISTERED NURSE AMBULATORY, CMADM, CMP #### [facility] [address] [address] [address] Cherie Dior MCH (RBC) [Entitic mass] 28.8 pg Normal 26.7-34.0 [facility] Comment on above: Performed By: #### B REGISTERED NURSE AMBULATORY, CMADM, CMP #### [facility] [address] [place] [address] Dr. Cherie Dior MCHC (RBC) [Mass/Vol] 31.9 g/dL Normal 29.9-35.2 [facility] Comment on above: Performed By: #### B REGISTERED NURSE AMBULATORY, CMADM, CMP #### [facility] [address] [address] [address] Cherie Dior MCV (RBC) [Entitic vol] 90.4 fL Normal 81.0-99.0 [facility] Comment on above: Performed By: #### B REGISTERED NURSE AMBULATORY, CMADM, CMP #### [facility] [address] [address] [address] Cherie Dior MONO # 0.9 103/ul Critically high 0.3-0.8 [facility] Comment on above: Performed By: #### B REGISTERED NURSE AMBULATORY, CMADM, CMP #### [facility] [address] [place] [address] Dr. Cherie Dior Monocytes/100 WBC (Bld) 10.4 % Normal 1.7-12.0 [facility] Comment on above: Performed By: #### B REGISTERED NURSE AMBULATORY, CMADM, CMP #### [facility] [address] [place] [address] Dr. Cherie Dior NEUT # 5.6 103/ul Normal 1.4-6.5 [facility] Comment on above: Performed By: #### B REGISTERED NURSE AMBULATORY, CMADM, CMP #### [facility] [address] [place] [address] Dr. Cherie Dior Neutrophils/100 WBC (Bld) 65.9 % Normal 43.0-75.0 [facility] Comment on above: Performed By: #### B REGISTERED NURSE AMBULATORY, CMADM, CMP #### [facility] [address] [place] [address] Dr. Cherie Dior Platelet mean volume (Bld) [Entitic vol] 9.0 fL Critically low 9.5-13.5 [facility] Comment on above: Performed By: #### B REGISTERED NURSE AMBULATORY, CMADM, CMP #### [facility] [address] [place] [address] Dr. Cherie Dior PLT 381 103/ul Normal 150-450 [facility] Comment on above: Performed By: #### B REGISTERED NURSE AMBULATORY, CMADM, CMP #### [facility] [address] [place] [address] Dr. Cherie Dior RBC 3.64 106/ul Critically low 4.20-5.40 The [facility] Comment on above: Performed By: #### B REGISTERED NURSE AMBULATORY, CMADM, CMP #### [facility] [address] [place] [address] Dr. Cherie Dior WBC 8.4 103/ul Normal 4.0-11.0 [facility] Comment on above: Performed By: #### B REGISTERED NURSE AMBULATORY, CMADM, CMP #### [facility] [address] [place] [address] Dr. Cherie Dior CTA CHEST WO W [...] The subdiaphragmatic abdominal organs included in the [id number] do not demonstrate any acute abnormality allowing for some fatty infiltration of the liver.. IMPRESSION: No CT evidence for acute pulmonary embolus. Electronically authenticated by: WICHO RAINEY Date: 2022-02-25 19:04 Normal [facility] D-DIMERon 02-25-2022 D-DIMER 6.44 mg/L FEU Critically high <=0.59 The [facility] Comment on above: Performed By: #### B REGISTERED NURSE AMBULATORY, CMADM, CMP #### [facility] [address] [place], [place] [address] Dr. Cherie Dior D-DIMER COMMENTS SEE BELOW Normal The [facility] Comment on above: Result Comment: Incr [...] and generalized hospitalization. Performed By: #### B REGISTERED NURSE AMBULATORY, KAIDM, CMP #### [facility] [address] [place] [address] Dr. Cherie Dior ER URINE PROFILEon 2 Bilirubin Ql (U) Negative Normal NEGATIVE [facility] Comment on above: Performed By: #### B REGISTERED NURSE AMBULATORY, CMADM, CMP #### [facility] [address] [place] [address] [address] Cherie Dior Clarity (U) CLEAR Normal CLEAR [facility] Comment on above: Performed By: #### B REGISTERED NURSE AMBULATORY, KAIDM, CMP #### [facility] [address] [place] [address] Dr. Cherie Dior Color (U) LT. YELLOW Normal YELLOW [facility] Comment on above: Performed By: #### B REGISTERED NURSE AMBULATORY, CMADM, CMP #### [facility] [address] [place] [address] Dr. Cherie Dior ERUKimberly A micrscopic examination will be performed if indicated. Normal [facility] Comment on above: Performed By: #### B REGISTERED NURSE AMBULATORY, KAIDM, CMP #### [facility] [address] [place] [address] Dr. Cherie Dior Glucose Ql (U) Negative Normal NEGATIVE [facility] Comment on above: Performed By: #### B REGISTERED NURSE AMBULATORY, CMADM, CMP #### [facility] [address] [place] [address] Dr. Cherie Dior Hemoglobin Ql (U) SMALL Abnormal NEGATIVE [facility] Comment on above: Performed By: #### B REGISTERED NURSE AMBULATORY, CMADM, CMP #### [facility] [address] [place] [address] Dr. Cherie Dior Ketones Ql (U) Negative Normal NEGATIVE [facility] Comment on above: Performed By: #### B REGISTERED NURSE AMBULATORY, CMADM, CMP #### [facility] [address] [place] [address] Dr. Cherie Dior LEUKOCYTES Negative Normal NEGATIVE [facility] Comment on above: Performed By: #### B REGISTERED NURSE AMBULATORY, CMADM, CMP #### [facility] [address] [address] [address] Cherie Dior Nitrite Ql (U) Negative Normal NEGATIVE [facility] Comment on above: Performed By: #### B REGISTERED NURSE AMBULATORY, CMADM, CMP #### [facility] [address] [place] [address] Dr. Cherie Dior pH (U) 6.0 [pH] Normal 5-9 [facility] Comment on above: Performed By: #### B REGISTERED NURSE AMBULATORY, CMADM, CMP #### [facility] [address] [place] [address] Dr. Cherie Dior SPEC GRAVITY 1.020 Normal 1.005-<=1.025 [facility] Comment on above: Performed By: #### B REGISTERED NURSE AMBULATORY, CMADM, CMP #### [facility] [address] [place] [address] Dr. Cherie Dior UA PROTEIN Negative Normal NEGATIVE/ TRACE The [facility] Comment on above: Performed By: #### B REGISTERED NURSE AMBULATORY, CMADM, CMP #### [facility] [address] [place] [address] Dr. Cherie Dior UR MICRO IND INDICATED Normal [facility] Comment on above: Performed By: #### B REGISTERED NURSE AMBULATORY, CMADM, CMP #### [facility] [address] [place] [address] Dr. Cherie Dior Urobilinogen Qn (U) 0.2 {Del'U}/dL Normal 0.2 - 1. 0 [facility] Comment on above: Performed By: #### B REGISTERED NURSE AMBULATORY, CMADM, CMP #### [facility] [address] [place] [address] Dr. Cherie Dior PROF 14(COMP METB)on 022 Albumin [Mass/Vol] 3.8 g/dL Normal 3.4-5.0 [facility] Comment on above: Performed By: #### B REGISTERED NURSE AMBULATORY, CMADM, CMP #### [facility] [address] [address] [address] Cherie Dior Albumin/Globulin [Mass ratio] 0.8 {ratio} Normal [facility] Comment on above: Performed By: #### B REGISTERED NURSE AMBULATORY, CMADM, CMP #### [facility] [address] [address] [address] Cherie Dior ALP [Catalytic activity/Vol] 72 U/L Normal 46-116 [facility] Comment on above: Performed By: #### B REGISTERED NURSE AMBULATORY, CMADM, CMP #### [facility] [address] [address] [address] Cherie Dior ALT [Catalytic activity/Vol] 21 U/L Normal 14-59 [facility] Comment on above: Performed By: #### B REGISTERED NURSE AMBULATORY, CMADM, CMP #### [facility] [address] [address] [address] Cherie Dior Anion gap [Moles/Vol] 10.5 mmol/L Normal [facility] Comment on above: Performed By: #### B REGISTERED NURSE AMBULATORY, CMADM, CMP #### [facility] [address] [address] [address] Cherie Dior AST [Catalytic activity/Vol] 13 U/L Critically low 15-37 [facility] Comment on above: Performed By: #### B REGISTERED NURSE AMBULATORY, CMADM, CMP #### [facility] [address] [address] [address] Cherie Dior Bilirubin [Mass/Vol] 0.5 mg/dL Normal 0.2-1.0 [facility] Comment on above: Performed By: #### B REGISTERED NURSE AMBULATORY, CMADM, CMP #### [facility] [address] [address] [address] Cherie Dior Calcium [Mass/Vol] 9.0 mg/dL Normal 8.5-10.1 [facility] Comment on above: Performed By: #### B REGISTERED NURSE AMBULATORY, CMADM, CMP #### [facility] [address] [address] [address] Cherie Dior Chloride [Moles/Vol] 104 mmol/L Normal 98-107 [facility] Comment on above: Performed By: #### B REGISTERED NURSE AMBULATORY, CMADM, CMP #### [facility] [address] [address] [address] Cherie Dior CO2 [Moles/Vol] 25.3 mmol/L Normal 21.0-32.0 [facility] Comment on above: Performed By: #### B REGISTERED NURSE AMBULATORY, CMADM, CMP #### [facility] [address] [address] [address] Cherie Dior Creatinine [Mass/Vol] 0.86 mg/dL Normal 0.55-1.02 [facility] Comment on above: Performed By: #### B REGISTERED NURSE AMBULATORY, CMADM, CMP #### [facility] [address] [address] [address] Cherie Dior EGFR-AF SALVADOREAN >60 Normal >=60 [facility] Comment on above: Performed By: #### B REGISTERED NURSE AMBULATORY, CMADM, CMP #### [facility] [address] [place] [address] [address] Cherie Dior EGFR-NON AF SALVADOREAN >60 Normal >=60 [facility] Comment on above: Performed By: #### B REGISTERED NURSE AMBULATORY, CMADM, CMP #### [facility] [address] [address] [address] Cherie Dior Globulin (S) [Mass/Vol] 4.5 g/dL Normal [facility] Comment on above: Performed By: #### B REGISTERED NURSE AMBULATORY, CMADM, CMP #### [facility] [address] [address] [address] Cherie Dior Glucose [Mass/Vol] 85 mg/dL Normal 74-106 [facility] Comment on above: Performed By: #### B REGISTERED NURSE AMBULATORY, CMADM, CMP #### [facility] [address] [place] [address] [address] Cherie Dior Potassium [Moles/Vol] 3.8 mmol/L Normal 3.5-5.1 [facility] Comment on above: Performed By: #### B REGISTERED NURSE AMBULATORY, CMADM, CMP #### [facility] [address] [address] [address] Cherie Dior Protein [Mass/Vol] 8.3 g/dL Critically high 6.4-8.2 T [facility] Comment on above: Performed By: #### B REGISTERED NURSE AMBULATORY, CMADM, CMP #### [facility] [address] [place] [address] Dr. Cherie Dior Sodium [Moles/Vol] 136 mmol/L Normal 136-145 [facility] Comment on above: Performed By: #### B REGISTERED NURSE AMBULATORY, CMADM, CMP #### [facility] [address] [place] [address] Dr. Cherie Dior Urea nitrogen [Mass/Vol] 14.0 mg/dL Normal 7.0-18.0 [facility] Comment on above: Performed By: #### B REGISTERED NURSE AMBULATORY, KAIDM, CMP #### [facility] [address] [place] [address] Dr. Cherie Dior Urea nitrogen/Creatinine [Mass ratio] 16.3 mg/mg Normal [facility] Comment on above: Performed By: #### B REGISTERED NURSE AMBULATORY, KAIDM, CMP #### [facility] [address] [place] [address] Dr. Cherie Dior PROTIMEon 02-25-2022 INR Coag (PPP) [Relative time] 0.97 {INR} Normal [facility] Comment on above: Performed By: #### B REGISTERED NURSE AMBULATORY, MEAGHAN, CMP #### [facility] [address] [place] [address] Dr. Cherie Dior INR GUIDELINES SEE BELOW Normal The [facility] Comment on above: Result Comment: JORDEN RED INR: 2.0 - 3.0 CONDITIONS NOT LISTED BELOW 2.5 - 3.5 FOR PROSTHETIC HEART VALVE REPLACEMENT 2.5 - 3.5 RECURRENT THROMBOSIS Performed By: #### B REGISTERED NURSE AMBULATORY, CMADM, CMP #### [facility] [address] [place] [address] Dr. Cherie Dior PT Coag (PPP) [Time] 10.5 s Normal 9.0-11.6 [facility] Comment on above: Performed By: #### B REGISTERED NURSE AMBULATORY, KAIDM, CMP #### [facility] [address] [place] [address] Dr. Cherie Dior PTTon 02-25-2022 aPTT Coag (Bld) [Time] 29.1 s Normal 22.3-36.2 Th e [facility] Comment on above: Performed By: #### B REGISTERED NURSE AMBULATORY, CMADM, CMP #### [facility] [address] [place] [address] Dr. Cherie Dior URINE MICROSCOPIC ONLYon BACTERIA NONE SEEN Normal NONE SEEN [facility] Comment on above: Performed By: #### B REGISTERED NURSE AMBULATORY, CMADM, CMP #### [facility] [address] [place] [address] Dr. Cherie Dior Bacteria identified Cx Nom (U) NOT INDICATED Normal [facility] Comment on above: Performed By: #### B REGISTERED NURSE AMBULATORY, CMADM, CMP #### [facility] [address] [place] [address] Dr. Cherie Dior CAST NONE SEEN Normal NONE SEEN [facility] Comment on above: Performed By: #### B REGISTERED NURSE AMBULATORY, CMADM, CMP #### [facility] [address] [place] [address] Dr. Cherie Dior Crystals LM Nom (Urine sed) NONE SEEN Normal NONE SEEN The [facility] Comment on above: Performed By: #### B REGISTERED NURSE AMBULATORY, CMADM, CMP #### [facility] [address] [place] [address] Dr. Cherie Dior Epithelial cells LM Ql (Urine sed) FEW Abnormal NONE SEEN /RARE [facility] Comment on above: Performed By: #### B REGISTERED NURSE AMBULATORY, CMADM, CMP #### [facility] [address] [place] [address] Dr. Cherie Dior MUCOUS TRACE Abnormal NONE SEEN The [facility] Comment on above: Performed By: #### B REGISTERED NURSE AMBULATORY, CMADM, CMP #### [facility] [address] [place] [address] Dr. Cherie Dior RBC 5-10 Abnormal 0-2 [facility] Comment on above: Performed By: #### B REGISTERED NURSE AMBULATORY, CMADM, CMP #### [facility] [address] [place] [address] Dr. Cherie Dior WBC NONE SEEN Normal NONE SEEN [facility] Comment on above: Performed By: #### B REGISTERED NURSE AMBULATORY, CMADM, CMP #### [facility] [address] [place] [address] Dr. Cherie Dior Operative Reporton Operative Report [id number] #[id number]:127 Normal [facility] BUNon 02-16-2022 Urea nitrogen [Mass/Vol] 9.0 mg/dL Normal 7.0-18.0 [facility] Comment on above: Performed By: #### B UN, CREA #### [facility] [address] [place] [address] Dr. Cherie Dior CBC AUTO DIFFon 02-16-2022 BASO # 0.0 103/ul Normal 0.0-0.1 [facility] Comment on above: Performed By: #### C BC #### [facility] [address] [place] [address] Dr. Cherie Dior Basophils/100 WBC (Bld) 0.1 % Critically low 0.2-2.0 [facility] Comment on above: Performed By: #### C BC #### [facility] [address] [place] [address] Dr. Cherie Dior EO # 0.0 103/ul Normal 0.0-0.7 [facility] Comment on above: Performed By: #### C BC #### [facility] [address] [place] [address] Dr. Cherie Dior Eosinophils/100 WBC (Bld) 0.0 % Critically low 0.9-7.0 [facility] Comment on above: Performed By: #### C BC #### [facility] [address] [place] [address] Dr. Cherie Dior Erythrocyte distribution width (RBC) [Ratio] 12.6 % Normal 11.0-15.0 [facility] Comment on above: Performed By: #### C BC #### [facility] [address] [place] [address] Dr. Cherie Dior Hematocrit (Bld) [Volume fraction] 31.0 % Critically low 36.0-48.0 [facility] Comment on above: Performed By: #### C BC #### [facility] [address] [place] [address] Dr. Cherie Dior Hemoglobin (Bld) [Mass/Vol] 10.2 g/dL Critically low 12.0-16.0 [facility] Comment on above: Performed By: #### C BC #### [facility] [address] [place] [address] Dr. Cherie Dior IG # 0.04 10e3/ul Critically high 0.00-0.03 [facility] Comment on above: Performed By: #### C BC #### [facility] [address] [place] [address] Dr. Cherie Dior IG % 0.3 % Normal 0.0-0.5 [facility] Comment on above: Performed By: #### C BC #### [facility] [address] [place] [address] Dr. Cherie Dior LYMPH # 1.1 103/ul Critically low 1.2-3.8 [facility] Comment on above: Performed By: #### C BC #### [facility] [address] [place] [address] Dr. Cherie Dior Lymphocytes/100 WBC (Bld) 9.6 % Critically low 20.5-60.0 [facility] Comment on above: Performed By: #### C BC #### [facility] [address] [place] [address] Dr. Cherie Dior MANUAL DIFF REQ NO Normal [facility] Comment on above: Performed By: #### C BC #### [facility] [address] [place] [address] Dr. Cherie Dior MCH (RBC) [Entitic mass] 29.1 pg Normal 26.7-34.0 [facility] Comment on above: Performed By: #### C BC #### [facility] [address] [place] [address] Dr. Cherie Dior MCHC (RBC) [Mass/Vol] 32.9 g/dL Normal 29.9-35.2 [facility] Comment on above: Performed By: #### C BC #### [facility] [address] [address] [address] Cherie Dior MCV (RBC) [Entitic vol] 88.3 fL Normal 81.0-99.0 [facility] Comment on above: Performed By: #### C BC #### [facility] [address] [address] [address] Cherie Dior MONO # 1.2 103/ul Critically high 0.3-0.8 [facility] Comment on above: Performed By: #### C BC #### [facility] [address] [address] [address] Cherie Dior Monocytes/100 WBC (Bld) 9.9 % Normal 1.7-12.0 [facility] Comment on above: Performed By: #### C BC #### [facility] [address] [place] [address] Dr. Cherie Dior NEUT # 9.5 103/ul Critically high 1.4-6.5 [facility] Comment on above: Performed By: #### C BC #### [facility] [address] [place] [address] Dr. Cherie Dior Neutrophils/100 WBC (Bld) 80.1 % Critically high 43.0-75.0 [facility] Comment on above: Performed By: #### C BC #### [facility] [address] [place] [address] Dr. Cherie Dior Platelet mean volume (Bld) [Entitic vol] 9.5 fL Normal 9.5-13.5 [facility] Comment on above: Performed By: #### C BC #### [facility] [address] [place] [address] Dr. Cherie Dior PLT 225 103/ul Normal 150-450 [facility] Comment on above: Performed By: #### C BC #### [facility] [address] [place] [address] Dr. Cehrie Dior RBC 3.51 106/ul Critically low 4.20-5.40 [facility] Comment on above: Performed By: #### C BC #### [facility] [address] [place] [address] [address] Cherie Dior WBC 11.8 103/ul Critically high 4.0-11.0 [facility] Comment on above: Performed By: #### C BC #### [facility] [address] [place] [address] Dr. Cherie Dior CREATININEon 02-16-2022 Creatinine [Mass/Vol] 0.98 mg/dL Normal 0.55-1.02 [facility] Comment on above: Performed By: #### B UN, CREA #### [facility] [address] [place] [address] Dr. Cherie Dior EGFR-AF SALVADOREAN >60 Normal >=60 The [facility] Comment on above: Performed By: #### B UN, CREA #### [facility] [address] [place] [address] Dr. Cherie Dior EGFR-NON AF SALVADOREAN >60 Normal >=60 [facility] Comment on above: Performed By: #### B UN, CREA #### [facility] [address] [place] [address] Dr. Cherie Dior PREG HCG QUALon 02-15-2022 , QUAL Negative Normal NEGATIVE [facility] Comment on above: Performed By: #### I NFLUAB #### [facility] [address] [place] [address] Dr. Cherie Dior Consent for Procedure/Surger yon 02-14-2022 Consent for Procedure/Surgery [id number] #[id number]:[id number] Normal [facility] CBC AUTO DIFFon 02-12-2022 BASO # 0.0 103/ul Normal 0.0-0.1 [facility] Comment on above: Performed By: #### B REGISTERED NURSE AMBULATORY, CMADM, CMP #### [facility] [address] [place] [address] Dr. Cherie Dior Basophils/100 WBC (Bld) 0.6 % Normal 0.2-2.0 [facility] Comment on above: Performed By: #### B REGISTERED NURSE AMBULATORY, CMADM, CMP #### [facility] [address] [place] [address] Dr. Cherie Dior EO # 0.1 103/ul Normal 0.0-0.7 [facility] Comment on above: Performed By: #### B REGISTERED NURSE AMBULATORY, CMADM, CMP #### [facility] [address] [place] [address] Dr. Cherie Dior Eosinophils/100 WBC (Bld) 4.0 % Normal 0.9-7.0 [facility] Comment on above: Performed By: #### B REGISTERED NURSE AMBULATORY, CMADM, CMP #### [facility] [address] [place] [address] Dr. Cherie Dior Erythrocyte distribution width (RBC) [Ratio] 12.9 % Normal 11.0-15.0 [facility] Comment on above: Performed By: #### B REGISTERED NURSE AMBULATORY, CMADM, CMP #### [facility] [address] [place] [address] Dr. Cherie Dior Hematocrit (Bld) [Volume fraction] 38.8 % Normal 36.0-48.0 [facility] Comment on above: Performed By: #### B REGISTERED NURSE AMBULATORY, CMADM, CMP #### [facility] [address] [place] [address] Dr. Cherie Dior Hemoglobin (Bld) [Mass/Vol] 12.6 g/dL Normal 12.0-16.0 [facility] Comment on above: Performed By: #### B REGISTERED NURSE AMBULATORY, CMADM, CMP #### [facility] [address] [place] [address] Dr. Cherie Dior IG # 0.00 10e3/ul Normal 0.00-0.03 [facility] Comment on above: Performed By: #### B REGISTERED NURSE AMBULATORY, CMADM, CMP #### [facility] [address] [place] [address] Dr. Cherie Dior IG % 0.0 % Normal 0.0-0.5 [facility] Comment on above: Performed By: #### B REGISTERED NURSE AMBULATORY, CMADM, CMP #### [facility] [address] [place] [address] Dr. Cherie Dior LYMPH # 1.3 103/ul Normal 1.2-3.8 [facility] Comment on above: Performed By: #### B REGISTERED NURSE AMBULATORY, CMADM, CMP #### [facility] [address] [place] [address] Dr. Cherie Dior Lymphocytes/100 WBC (Bld) 36.5 % Normal 20.5-60.0 [facility] Comment on above: Performed By: #### B REGISTERED NURSE AMBULATORY, CMADM, CMP #### [facility] [address] [place] [address] Dr. Cherie Dior MANUAL DIFF REQ NO Normal [facility] Comment on above: Performed By: #### B REGISTERED NURSE AMBULATORY, CMADM, CMP #### [facility] [address] [place] [address] Dr. Cherie Dior MCH (RBC) [Entitic mass] 29.4 pg Normal 26.7-34.0 [facility] Comment on above: Performed By: #### B REGISTERED NURSE AMBULATORY, CMADM, CMP #### [facility] [address] [place] [address] Dr. Cherie Dior MCHC (RBC) [Mass/Vol] 32.5 g/dL Normal 29.9-35.2 [facility] Comment on above: Performed By: #### B REGISTERED NURSE AMBULATORY, CMADM, CMP #### [facility] Laboratory [address] [place] [address] Dr. Cherie Dior MCV (RBC) [Entitic vol] 90.7 fL Normal 81.0-99.0 The [facility] Comment on above: Performed By: #### B REGISTERED NURSE AMBULATORY, CMADM, CMP #### [facility] Laboratory [address] [place] [address] Dr. Cherie Dior MONO # 0.5 103/ul Normal 0.3-0.8 [facility] Comment on above: Performed By: #### B REGISTERED NURSE AMBULATORY, CMADM, CMP #### [facility] Laboratory [address] [place] [address] Dr. Cherie Dior Monocytes/100 WBC (Bld) 12.9 % Critically high 1.7-12.0 [facility] Comment on above: Performed By: #### B REGISTERED NURSE AMBULATORY, CMADM, CMP #### [facility] Laboratory [address] [address] [address] Cherie Dior NEUT # 1.6 103/ul Normal 1.4-6.5 [facility] Comment on above: Performed By: #### B REGISTERED NURSE AMBULATORY, CMADM, CMP #### [facility] Laboratory [address] [place] [address] Dr. Cherie Dior Neutrophils/100 WBC (Bld) 46.0 % Normal 43.0-75.0 [facility] Comment on above: Performed By: #### B REGISTERED NURSE AMBULATORY, CMADM, CMP #### [facility] Laboratory [address] [place] [address] Dr. Cherie Dior Platelet mean volume (Bld) [Entitic vol] 9.8 fL Normal 9.5-13.5 [facility] Comment on above: Performed By: #### B REGISTERED NURSE AMBULATORY, CMADM, CMP #### [facility] Laboratory [address] [place] [address] Dr. Cherie Dior PLT 202 103/ul Normal 150-450 [facility] Comment on above: Performed By: #### B REGISTERED NURSE AMBULATORY, CMADM, CMP #### [facility] Laboratory [address] [place] [address] Dr. Cherie Dior RBC 4.28 106/ul Normal 4.20-5.40 [facility] Comment on above: Performed By: #### B REGISTERED NURSE AMBULATORY, CMADM, CMP #### [facility] Laboratory [address] [place] [address] Dr. Cherie Dior WBC 3.5 103/ul Critically low 4.0-11.0 The [facility] Comment on above: Performed By: #### B REGISTERED NURSE AMBULATORY, CMADM, CMP #### [facility] Laboratory [address] [place] [address] Dr. Cherie Dior [facility]on 01-21 SARS-CoV-2 (COVID-19) RNA JULEE+probe Ql (Unsp spec) Not detected Normal NOT DETECTED [facility] Comment on above: Result Comment: This test is not yet approved or cleared by the [place] FDA. When there are no FDA-approved or cleared tests available, and other criteria are met, FDA can make tests available under an emergency access mechanism called an Emergency Use Authorization (EUA). The EUA for this test is supported by the [place] of Health and Human Service's (HHS's) declaration [...] consistent with SARS-CoV-2. Performed By: #### B REGISTERED NURSE AMBULATORY, CMADM, CMP #### [facility] Laboratory [address] [place] [address] Dr. Cherie Dior PROF CHEM 8 (BAS METB)on Anion gap [Moles/Vol] 7.5 mmol/L Normal [facility] Comment on above: Performed By: #### B MP #### [facility] Laboratory [address] [place] [address] Dr. Cherie Dior Calcium [Mass/Vol] 8.4 mg/dL Critically low 8.5-10.1 [facility] Comment on above: Performed By: #### B MP #### [facility] Laboratory [address] [place] [address] Dr. Cherie Dior Chloride [Moles/Vol] 106 mmol/L Normal 98-107 [facility] Comment on above: Performed By: #### B MP #### [facility] Laboratory [address] [place] [address] Dr. Cherie Dior CO2 [Moles/Vol] 28.3 mmol/L Normal 21.0-32.0 The [facility] Comment on above: Performed By: #### B MP #### [facility] Laboratory [address] [place] [address] Dr. Cherie Dior Creatinine [Mass/Vol] 0.81 mg/dL Normal 0.55-1.02 [facility] Comment on above: Performed By: #### B MP #### [facility] Laboratory [address] [address] [address] Cherie Dior EGFR-AF SALVADOREAN >60 Normal >=60 The [facility] Comment on above: Performed By: #### B MP #### [facility] Laboratory [address] [address] [address] Cherie Dior EGFR-NON AF SALVADOREAN >60 Normal >=60 [facility] Comment on above: Performed By: #### B MP #### [facility] Laboratory [address] [address] [address] Cherie Dior Glucose [Mass/Vol] 75 mg/dL Normal 74-106 [facility] Comment on above: Performed By: #### B MP #### [facility] Laboratory [address] [address] [address] Cherie Dior Potassium [Moles/Vol] 3.8 mmol/L Normal 3.5-5.1 [facility] Comment on above: Performed By: #### B MP #### [facility] [address] [address] [address] Cherie Dior Sodium [Moles/Vol] 138 mmol/L Normal 136-145 [facility] Comment on above: Performed By: #### B MP #### [facility] Laboratory [address] [place] [address] Dr. Cherie Dior Urea nitrogen [Mass/Vol] 8.0 mg/dL Normal 7.0-18.0 [facility] Comment on above: Performed By: #### B MP #### [facility] [address] [address] [address] Cherie Dior Urea nitrogen/Creatinine [Mass ratio] 9.9 mg/mg Normal [facility] Comment on above: Performed By: #### B MP #### [facility] Laboratory [address] [place] [address] Dr. Cherie Dior PROTIMEon 02-12-2022 INR Coag (PPP) [Relative time] 0.97 {INR} Normal [facility] Comment on above: Performed By: #### B REGISTERED NURSE AMBULATORY, CMADM, CMP #### [facility] Laboratory [address] [place] [address] Dr. Cherie Dior INR GUIDELINES SEE BELOW Normal [facility] Comment on above: Result Comment: JORDEN RED INR: 2.0 - 3.0 CONDITIONS NOT LISTED BELOW 2.5 - 3.5 FOR PROSTHETIC HEART VALVE REPLACEMENT 2.5 - 3.5 RECURRENT THROMBOSIS Performed By: #### B REGISTERED NURSE AMBULATORY, CMADM, CMP #### [facility] Laboratory [address] [place] [address] Dr. Cherie Dior PT Coag (PPP) [Time] 10.5 s Normal 9.0-11.6 [facility] Comment on above: Performed By: #### B REGISTERED NURSE AMBULATORY, KAIDM, CMP #### [facility] Laboratory [address] [place] [address] Dr. Cherie Dior PTTon 02-12-2022 aPTT Coag (Bld) [Time] 25.1 s Normal 22.3-36.2 Th [facility] Comment on above: Performed By: #### B REGISTERED NURSE AMBULATORY, MEAGHAN, CMP #### [facility] Laboratory [address] [place] [address] Dr. Cherie Dior TYPE AND SCREENon 02-12-2022 TYPE AND SCREEN Negative Normal [facility] Comment on above: Performed By: #### I NFLUAB #### [facility] Laboratory [address] [place] [address] Dr. Cherie Dior Physician Referralon 022 Physician Referral [id number] #[id number] Normal [facility] PREG HCG QUALon 01-05-2022 , QUAL Negative Normal NEGATIVE [facility] Comment on above: Performed By: #### B REGISTERED NURSE AMBULATORY, KAIDM, CMP #### [facility] Laboratory [address] [place] [address] Dr. Cherie Dior MG MAMM SCREEN 3D ARJUN CADon 01-02-2022 MG MAMM SCREEN 3D ARJUN CAD Patient: NEEL GARCIA Exam Date: 01/02/2022 : 1980 Gender:F Ordering : DR INGRID DE LOS SANTOS . Admission #: [id number] Family : Order #: [id number] CLICK HERE TO VIEW EXAM RADIOLOGY REPORT PROCEDURE: MAMMOGRAM SCREENING 3D BILATERAL CAD COMPARISON: MG MAMM SCREEN ARJUN W CAD, 07/29/2018. INDICATIONS: Screening mammography Calculator Name NCI Breast Cancer Risk Assessment Tool 5 Year Breast Cancer Risk Not Reported. Lifetime Breast Cancer Risk Not Reported. Personal Breast Cancer No Personal Ovarian Cancer No Treatments None Family Cancers None LOCATION: [facility] BREAST COMPOSITION: Heterogeneously dense,which may obscure [...] MD on 01/02/2022 at 11:25 Normal [facility] Covid-19 PCR (CVDTBH)on SARS-CoV-2 (COVID-19) RNA JULEE+probe Ql (Unsp spec) Not detected Normal NOT DETECTED [facility] Comment on above: Result Comment: This test is not yet approved or cleared by the [place] FDA. When there are no FDA-approved or cleared tests available, and other criteria are met, FDA can make tests available under an emergency access mechanism called an Emergency Use Authorization (EUA). The EUA for this test is supported by the [employer] of Health and Human Service's (HHS's) declaration [...] SARS-CoV-2. Performed By: #### I NFLUAB #### [facility] Laboratory [address] [address] [address] Cherie Dior US PELVIS AND TRANSVAGon [...] by: AUSTIN MCGUIRE Date: 2021-12-20 11:02 Normal [facility] PAP ACOG PANEL 2: 30 to 65on 12-19-2021 . . Normal [facility] Comment on above: Result Comment: Perf ormed at: WB Performed By: #### B REGISTERED NURSE AMBULATORY, CMADM, CMP #### [facility] Laboratory [address] [address] [address] Cherie Dior Age Gdln ACOG Testing 30-65 Normal [facility] Comment on above: Performed By: #### B REGISTERED NURSE AMBULATORY, MEAGHAN, CMP #### [facility] Laboratory [address] [id number] Cherie Dior DIAGNOSIS: Comment Normal [facility] Comment on above: Result Comment: NEGA TIVE FOR INTRAEPITHELIAL LESION OR MALIGNANCY. Performed at: WB Performed By: #### B REGISTERED NURSE AMBULATORY, CMADM, CMP #### [facility] Laboratory [address] [address] [address] Cherie Dior HPV Aptima Negative Normal Negative [facility] Comment on above: Result Comment: This nucleic acid amplification test detects fourteen high-risk HPV types (16,18,31,33,35,39,45,51,52,56,58,59,66,68) without differentiation. Performed at: =G Performed By: #### B REGISTERED NURSE AMBULATORY, CMADM, CMP #### [facility] Laboratory [address] [address] [address] Cherie Dior Methodology: Comment Normal [facility] Comment on above: Result Comment: This liquid based ThinPrep(R) pap test was screened with the use of an image guided system. Performed at: WB Performed By: #### B REGISTERED NURSE AMBULATORY, CMADM, CMP #### [facility] Laboratory [address] [place] [address] Dr. Cherie Dior Note: Comment Normal [facility] Comment on above: Result Comment: The Pap smear is a screening test designed to aid in the detection of premalignant and malignant conditions of the uterine cervix. It is not a diagnostic procedure and should not be used as the sole means of detecting cervical cancer. Both false-positive and false-negative reports do occur. . Performed at: WB Performed By: #### B REGISTERED NURSE AMBULATORY, CMADM, CMP #### [facility] Laboratory [address] [place] [address] Dr. Cherie Dior Performed by: Comment Normal [facility] Comment on above: Result Comment: Griselda Drummond Warp Spinner (ASCP) Performed at: WB Performed By: #### B REGISTERED NURSE AMBULATORY, CMADM, CMP #### [facility] Laboratory [address] [place] [address] Dr. Cherie Dior Specimen adequacy: Comment Normal [facility] Comment on above: Result Comment: Sati sfactory for evaluation. Endocervical and/or squamous metaplastic cells (endocervical component) are present. Performed at: WB Performed By: #### B REGISTERED NURSE AMBULATORY, CMADM, CMP #### [facility] Laboratory [address] [place] [address] Dr. [facility]21 [facility] Telephone ([place]) NEEL GARCIA ([id number]) 1980 F Date Time Provider Department 11/14/21 JIAN DE LA CRUZ During your visit today, we recorded the following information about you: Jian De La Cruz RN 11/14/2021 3:15 PM Signed ----- Message from Alina Barros RN sent at 11/13/2021 1:26 PM EDT ----- ----- Message ----- From: Nehemias Ward MD Sent: 11/11/2021 6:10 AM EDT To: Alina Barros RN [facility]. Can you please call pt and let [...] by JIAN DE LA CRUZ on 11/14/21 [facility] CBC W Auto Differential pane l (Bld)on 11-10-2021 Basophils (Bld) [#/Vol] 0.03 10*3/uL Normal <0.11 [facility] Comment on above: Order Comment: Speci men Type: BLOOD SPECIMENOrdering Facility: [facility] Address: [address] [place] [address] Performed By: #### 5 7021-8 ####[facility] LABCLIA [id number] [place] [address] Basophils/100 WBC (Bld) 0.9 % Normal [facility] Comment on above: Order Comment: Speci men Type: BLOOD SPECIMENOrdering Facility: [facility] Address: [address] [place] [address] Performed By: #### 5 7021-8 ####[facility] LABCLIA [id number] [place] [address] Differential cell count method Nom (Bld) Auto Normal [facility] Comment on above: Order Comment: Speci men Type: BLOOD SPECIMENOrdering Facility: [facility] Address: [address] [place] [address] Performed By: #### 5 7021-8 ####[facility] LABCL[facility] [id number] [place] [address] Eosinophils (Bld) [#/Vol] 0.14 10*3/uL Normal <0.46 [facility] Comment on above: Order Comment: Speci men Type: BLOOD SPECIMENOrdering Facility: [facility] Address: [address] [place] [address] Performed By: #### 5 7021-8 ####[facility] LABCLIA [id number] [place] [address] Eosinophils/100 WBC (Bld) 4.2 % Normal [facility] Comment on above: Order Comment: Speci men Type: BLOOD SPECIMENOrdering Facility: [facility] Address: [address] [address] Performed By: #### 5 7021-8 ####[facility] LABIA [id number] [place] [address] Erythrocyte distribution width (RBC) [Ratio] 15.4 % High 11.5-15.0 [facility] Comment on above: Order Comment: Speci men Type: BLOOD SPECIMENOrdering Facility: [facility] Address: [address] [place] [address] Performed By: #### 5 7021-8 ####[facility] LABIA [id number] [place] [address] Hematocrit (Bld) [Volume fraction] 38.0 % Normal 36.0-46.0 [facility] Comment on above: Order Comment: Speci men Type: BLOOD SPECIMENOrdering Facility: [facility] Address: [address] [place] [address] Performed By: #### 5 7021-8 ####[facility] LABIA [id number] [place] [address] Hemoglobin (Bld) [Mass/Vol] 12.0 g/dL Normal 11.5-15.5 [facility] Comment on above: Order Comment: Speci men Type: BLOOD SPECIMENOrdering Facility: [facility] Address: [address] [place] [address] Performed By: #### 5 7021-8 ####[facility] LABIA [id number] [place] [address] IMMATURE GRAN % 0.3 % Normal [facility] Comment on above: Order Comment: Speci men Type: BLOOD SPECIMENOrdering Facility: [facility] Address: [address] [place] [address] Performed By: #### 5 7021-8 ####[facility] LABIA [id number] [place] [address] IMMATURE GRAN ABS <0.03 Normal <0.10 [facility] Comment on above: Order Comment: Speci men Type: BLOOD SPECIMENOrdering Facility: [facility] Address: [address] [place] [address] Performed By: #### 5 7021-8 ####[facility] LABCLIA [id number] [place] [address] Lymphocytes (Bld) [#/Vol] 1.26 10*3/uL Normal 1.00-4.00 [facility] Comment on above: Order Comment: Speci men Type: BLOOD SPECIMENOrdering Facility: [facility] Address: [address] [place] [address] Performed By: #### 5 7021-8 ####[facility] LABCLIA [id number] [place] [address] Lymphocytes/100 WBC (Bld) 38.1 % Normal [facility] Comment on above: Order Comment: Speci men Type: BLOOD SPECIMENOrdering Facility: [facility] Address: [address] [place] [address] Performed By: #### 5 7021-8 ####[facility] LABIA [id number] [place] [address] MCH (RBC) [Entitic mass] 27.9 pg Normal 26.0-34.0 [facility] Comment on above: Order Comment: Speci men Type: BLOOD SPECIMENOrdering Facility: [facility] Address: [address] [place] [address] Performed By: #### 5 7021-8 ####[facility] LABIA [id number] [place] [address] MCHC (RBC) [Mass/Vol] 31.6 g/dL Normal 30.5-36.0 [facility] Comment on above: Order Comment: Speci men Type: BLOOD SPECIMENOrdering Facility: [facility] Address: [address] [place] [address] Performed By: #### 5 7021-8 ####[facility] LABCLIA [id number] [place] [address] MCV (RBC) [Entitic vol] 88.4 fL Normal 80.0-100.0 [facility] Comment on above: Order Comment: Speci men Type: BLOOD SPECIMENOrdering Facility: [facility] Address: [address] [place] [address] Performed By: #### 5 7021-8 ####[facility] LABCLIA [id number] [place] [address] Monocytes (Bld) [#/Vol] 0.43 10*3/uL Normal <0.87 [facility] Comment on above: Order Comment: Speci men Type: BLOOD SPECIMENOrdering Facility: [facility] Address: [address] [place] [address] Performed By: #### 5 7021-8 ####[facility] LABCLIA [id number] [place] [address] Monocytes/100 WBC (Bld) 13.0 % Normal [facility] Comment on above: Order Comment: Speci men Type: BLOOD SPECIMENOrdering Facility: [facility] Address: [address] [place] [address] Performed By: #### 5 7021-8 ####[facility] LABCLIA [id number] [place] [address] Neutrophils (Bld) [#/Vol] 1.44 10*3/uL Low 1.45-7.50 [facility] Comment on above: Order Comment: Speci men Type: BLOOD SPECIMENOrdering Facility: [facility] Address: [address] [place] [address] Performed By: #### 5 7021-8 ####[facility] LABCLIA [id number] [place] [address] Neutrophils/100 WBC (Bld) 43.5 % Normal [facility] Comment on above: Order Comment: Speci men Type: BLOOD SPECIMENOrdering Facility: [facility] Address: [address] [place] [address] Performed By: #### 5 7021-8 ####[facility] LABCLIA [id number] [place] [address] Nucleated RBC (Bld) [#/Vol] 10*3/uL Normal <0.01 [facility] Comment on above: Order Comment: Speci men Type: BLOOD SPECIMENOrdering Facility: [facility] Address: [address] [place], [place] [id number] Performed By: #### 5 7021-8 ####[facility] LABCLIA [id number] [place] [address] Nucleated RBC/100 WBC (Bld) [Ratio] 0.0 /100 WBC Normal [facility] Comment on above: Order Comment: Speci men Type: BLOOD SPECIMENOrdering Facility: [facility] Address: [address] [place], [place] [id number] Performed By: #### 5 7021-8 ####[facility] LABIA [id number] [place] [address] Platelet mean volume (Bld) [Entitic vol] 9.5 fL Normal 9.0-12.7 [facility] Comment on above: Order Comment: Speci men Type: BLOOD SPECIMENOrdering Facility: [facility] Address: [address] [place], [place] [id number] Performed By: #### 5 7021-8 ####[facility] LABIA [id number] [place] [address] Platelets (Bld) [#/Vol] 239 10*3/uL Normal 150-400 [facility] Comment on above: Order Comment: Speci men Type: BLOOD SPECIMENOrdering Facility: [facility] Address: [address] [place], [place] [id number] Performed By: #### 5 7021-8 ####[facility] LABCLIA [id number] [place] [address] RBC (Bld) [#/Vol] 4.30 10*6/uL Normal 3.90-5.20 [facility] Comment on above: Order Comment: Speci men Type: BLOOD SPECIMENOrdering Facility: [facility] Address: [address] [place] [address] Performed By: #### 5 7021-8 ####[facility] LABCLIA [id number] [place] [address] WBC (Bld) [#/Vol] 3.31 10*3/uL Low 3.70-11.00 [facility] Comment on above: Order Comment: Speci men Type: BLOOD SPECIMENOrdering Facility: [facility] Address: [address] [place] [address] Performed By: #### 5 7021-8 ####[facility] LABCLIA [id number] [place] [address] CNOVSPon 11-10-2021 CNOVSP Visit (SP) Office (HEMASA) NEEL GARCIA ([id number]) 1980 F Date Time Provider Department 11/10/21 10:30 AM NEHEMIAS WARD During your visit today, we recorded the following information about you: Temperature Pulse Respiration Blood pressure 97.8 degrees 59/minute 16/minute 112/68 Weight Height 84.7 kg 1.676 m Nehemias Ward MD 11/10/2021 11:27 AM Signed HEMATOLOGY [...] provide more details. She was born in [place] and has lived in [place] in the past. She reports occasional smoking - cigars that are dipped in cognac - last use a month back. Occasional alcohol use. No other substance abuse reported. She lives with her with 5 children. She is not working now but used to work at [employer] (was laid off during COVID-19). MEDICATIONS AND [...] us in 6-8 weeks for repeat labs. Nehemias Ward MD I spent a total of 25 minutes on the date of the service which included preparing to see the patient, [id number] patient care, completing clinical documentation, obtaining and/or reviewing separately obtained history, performing a medically appropriate examination, counseling and educating the patient/family/careg iver, ordering medications, tests, or pro (more content not included)... Normal [facility] Comprehensive metabolic 2000 panelon 11-10-2021 Albumin [Mass/Vol] 4.1 g/dL Normal 3.9-4.9 [facility] Comment on above: Order Comment: Speci men Type: BLOOD SPECIMENOrdering Facility: [facility] Address: [address] [address] Performed By: #### 2 4323-8 ####[facility] LABCLIA [id number] [place] [address] ALP [Catalytic activity/Vol] 64 U/L Normal 34-123 [facility] Comment on above: Order Comment: Speci men Type: BLOOD SPECIMENOrdering Facility: [facility] [facility] Address: [address] [place] [address] Performed By: #### 2 4323-8 ####[facility] LABCLIA [id number] [place] [address] ALT [Catalytic activity/Vol] 26 U/L Normal 7-38 [facility] Comment on above: Order Comment: Speci men Type: BLOOD SPECIMENOrdering Facility: [facility] Address: [address] [place] [address] Performed By: #### 2 4323-8 ####[facility] LABCLIA [id number] [place] [address] Anion gap [Moles/Vol] 8 mmol/L Low 9-18 [facility] Comment on above: Order Comment: Speci men Type: BLOOD SPECIMENOrdering Facility: [facility] Address: [address] [place] [address] Performed By: #### 2 4323-8 ####[facility] LABCLIA [id number] [place] [address] AST [Catalytic activity/Vol] 22 U/L Normal 13-35 [facility] Comment on above: Order Comment: Speci men Type: BLOOD SPECIMENOrdering Facility: [facility] Address: [address] [place] [address] Performed By: #### 2 4323-8 ####[facility] LABCLIA [id number] [place] [address] Bilirubin [Mass/Vol] 0.6 mg/dL Normal 0.2-1.3 [facility] Comment on above: Order Comment: Speci men Type: BLOOD SPECIMENOrdering Facility: [facility] Address: [address] [place] [address] Performed By: #### 2 4323-8 ####[facility] LABCLIA [id number] [place] [address] Calcium [Mass/Vol] 9.3 mg/dL Normal 8.5-10.2 [facility] Comment on above: Order Comment: Speci men Type: BLOOD SPECIMENOrdering Facility: [facility] Address: [address] [place] [address] Performed By: #### 2 4323-8 ####[facility] LABCLIA [id number] [place] [address] Chloride [Moles/Vol] 107 mmol/L High 97-105 [facility] Comment on above: Order Comment: Speci men Type: BLOOD SPECIMENOrdering Facility: [facility] Address: [address] [place] [address] Performed By: #### 2 4323-8 ####[facility] LABCLIA [id number] [place] [address] CO2 [Moles/Vol] 27 mmol/L Normal 22-30 [facility] Comment on above: Order Comment: Speci men Type: BLOOD SPECIMENOrdering Facility: [facility] Address: [address] [place] [address] Performed By: #### 2 4323-8 ####[facility] LABCLIA [id number] [place] [address] Creatinine [Mass/Vol] 0.91 mg/dL Normal 0.58-0.96 [facility] Comment on above: Order Comment: Speci men Type: BLOOD SPECIMENOrdering Facility: [facility] Address: [address] [place] [address] Performed By: #### 2 4323-8 ####[facility] LABCLIA [id number] [place] [address] ESTIMATED GLOMERULAR FILTRATION RATE 80 mL/min/1.73m??? Normal >=60 [facility] Comment on above: Order Comment: [place] Type: BLOOD SPECIMENOrdering Facility: [facility] Address: [address] [phone] Result Comment: Mari mated Glomerular Filtration Rate [...] actual GFR. Performed By: #### 2 4323-8 ####[facility] LABCLIA [id number] [place] [address] Glucose [Mass/Vol] 102 mg/dL High 74-99 [facility] Comment on above: Order Comment: [place] Type: BLOOD SPECIMENOrdering Facility: [facility] Address: [address] [phone] Result Comment: The [place] [employer] (ADA) provides guidance for cutoff [...] Standards of Medical Care in Diabetes 2016, [place] [employer]. Diabetes Care. 2016.39(Suppl 1). Performed By: #### 2 4323-8 ####[facility] LABCLIA [id number] [place] [address] Potassium [Moles/Vol] 4.0 mmol/L Normal 3.7-5.1 [facility] Comment on above: Order Comment: [place] Type: BLOOD SPECIMENOrdering Facility: [facility] Address: [address] [place], [place] [address] Performed By: #### 2 4323-8 ####[facility] LABCLIA [id number] [place] [address] Protein [Mass/Vol] 6.6 g/dL Normal 6.3-8.0 [facility] Comment on above: Order Comment: Speci men Type: BLOOD SPECIMENOrdering Facility: [facility] Address: [address] [place] [address] Performed By: #### 2 4323-8 ####[facility] LABCLIA [id number] [place] [address] Sodium [Moles/Vol] 142 mmol/L Normal 136-144 [facility] Comment on above: Order Comment: Speci men Type: BLOOD SPECIMENOrdering Facility: [facility] Address: [address] [place] [address] Performed By: #### 2 4323-8 ####[facility] LABCLIA [id number] [place] [address] Urea nitrogen [Mass/Vol] 13 mg/dL Normal 7-21 [facility] Comment on above: Order Comment: Speci men Type: BLOOD SPECIMENOrdering Facility: [facility] Address: [address] [place] [address] Performed By: #### 2 4323-8 ####[facility] LABCLIA [id number] [place] [address] Ferritin SerPl-mCncon 2021 Ferritin [Mass/Vol] 198.0 ng/mL Normal 14.7-205.1 [facility] Comment on above: Order Comment: Speci men Type: BLOOD SPECIMENOrdering Facility: [facility] Address: [address] [place] [address] Performed By: #### 2 276-4 ####[facility] LABCLIA [id number] [place] [address] Iron and Iron binding capaci ty panelon 11-10-2021 Iron [Mass/Vol] 62 ug/dL Normal 41-186 [facility] Comment on above: Order Comment: Speci men Type: BLOOD SPECIMENOrdering Facility: [facility] Address: [address] [place] [address] Performed By: #### 5 0190-8 ####[facility] LABCLIA [id number] [address] Iron binding capacity [Mass/Vol] 311 ug/dL Normal 232-386 [facility] Comment on above: Order Comment: Speci men Type: BLOOD SPECIMENOrdering Facility: [facility] Address: [address] [place] [address] Performed By: #### 5 0190-8 ####[facility] LABCLIA [id number] [address] Iron/TIBC [Molar ratio] 19.9 % Normal 15.0-57.0 [facility] Comment on above: Order Comment: Speci men Type: BLOOD SPECIMENOrdering Facility: [facility] Address: [address] [place] [address] Performed By: #### 5 0190-8 ####[facility] LABCLIA [id number] [address] [place] CBC W Auto Differential pane l (Bld)on 10-06-2021 Basophils (Bld) [#/Vol] 0.04 10*3/uL Normal <0.11 [facility] Comment on above: Order Comment: Speci men Type: BLOOD SPECIMENOrdering Facility: [facility] Address: [address] [place], [place] [address] Performed By: #### 5 7021-8 ####[facility] LABCLIA [id number] [place] [address] Basophils/100 WBC (Bld) 1.0 % Normal [facility] Comment on above: Order Comment: Speci men Type: BLOOD SPECIMENOrdering Facility: [facility] Address: [address] [place] [address] Performed By: #### 5 7021-8 ####[facility] LABCLIA [id number] [place] [address] Differential cell count method Nom (Bld) Auto Normal [facility] Comment on above: Order Comment: Speci men Type: BLOOD SPECIMENOrdering Facility: [facility] Address: [address] [place] [address] Performed By: #### 5 7021-8 ####[facility] LABCLIA [id number] [place] [address] Eosinophils (Bld) [#/Vol] 0.21 10*3/uL Normal <0.46 [facility] Comment on above: Order Comment: Speci men Type: BLOOD SPECIMENOrdering Facility: [facility] Address: [address] [place] [address] Performed By: #### 5 7021-8 ####[facility] LABCLIA [id number] [place] [address] Eosinophils/100 WBC (Bld) 5.3 % Normal [facility] Comment on above: Order Comment: Speci men Type: BLOOD SPECIMENOrdering Facility: [facility] Address: [address] [place] [address] Performed By: #### 5 7021-8 ####[facility] LABCLIA [id number] [place] [address] Erythrocyte distribution width (RBC) [Ratio] 14.1 % Normal 11.5-15.0 [facility] Comment on above: Order Comment: Speci men Type: BLOOD SPECIMENOrdering Facility: [facility] Address: [address] [place] [address] Performed By: #### 5 7021-8 ####[facility] LABCLIA [id number] [place] [address] Hematocrit (Bld) [Volume fraction] 38.1 % Normal 36.0-46.0 [facility] Comment on above: Order Comment: Speci men Type: BLOOD SPECIMENOrdering Facility: [facility] Address: [address] [place] [address] Performed By: #### 5 7021-8 ####[facility] LABIA [id number] [place] [address] Hemoglobin (Bld) [Mass/Vol] 12.2 g/dL Normal 11.5-15.5 [facility] Comment on above: Order Comment: Speci men Type: BLOOD SPECIMENOrdering Facility: [facility] Address: [address] [place] [address] Performed By: #### 5 7021-8 ####[facility] LABIA [id number] [place] [address] IMMATURE GRAN % 0.3 % Normal [facility] Comment on above: Order Comment: Speci men Type: BLOOD SPECIMENOrdering Facility: [facility] Address: [address] [place] [address] Performed By: #### 5 7021-8 ####[facility] LABIA [id number] [place] [address] IMMATURE GRAN ABS <0.03 Normal <0.10 [facility] Comment on above: Order Comment: Speci men Type: BLOOD SPECIMENOrdering Facility: [facility] Address: [address] [place] [address] Performed By: #### 5 7021-8 ####[facility] LABIA [id number] [place] [address] Lymphocytes (Bld) [#/Vol] 1.37 10*3/uL Normal 1.00-4.00 [facility] Comment on above: Order Comment: Speci men Type: BLOOD SPECIMENOrdering Facility: [facility] Address: [address] [place] [address] Performed By: #### 5 7021-8 ####[facility] LABCLIA [id number] [place] [address] Lymphocytes/100 WBC (Bld) 34.3 % Normal [facility] Comment on above: Order Comment: Speci men Type: BLOOD SPECIMENOrdering Facility: [facility] Address: [address] [place] [address] Performed By: #### 5 7021-8 ####[facility] LABCLIA [id number] [place] [address] MCH (RBC) [Entitic mass] 27.2 pg Normal 26.0-34.0 [facility] Comment on above: Order Comment: Speci men Type: BLOOD SPECIMENOrdering Facility: [facility] Address: [address] [place] [address] Performed By: #### 5 7021-8 ####[facility] LABCLIA [id number] [place] [address] MCHC (RBC) [Mass/Vol] 32.0 g/dL Normal 30.5-36.0 [facility] Comment on above: Order Comment: Speci men Type: BLOOD SPECIMENOrdering Facility: [facility] Address: [address] [place] [address] Performed By: #### 5 7021-8 ####[facility] LABCLIA [id number] [place] [address] MCV (RBC) [Entitic vol] 85.0 fL Normal 80.0-100.0 [facility] Comment on above: Order Comment: Speci men Type: BLOOD SPECIMENOrdering Facility: [facility] Address: [address] [place] [address] Performed By: #### 5 7021-8 ####[facility] LABCLIA [id number] [place] [address] Monocytes (Bld) [#/Vol] 0.46 10*3/uL Normal <0.87 [facility] Comment on above: Order Comment: Speci men Type: BLOOD SPECIMENOrdering Facility: [facility] Address: [address] [place] [address] Performed By: #### 5 7021-8 ####[facility] LABCLIA [id number] [place] [address] Monocytes/100 WBC (Bld) 11.5 % Normal [facility] Comment on above: Order Comment: Speci men Type: BLOOD SPECIMENOrdering Facility: [facility] Address: [address] [place] [address] Performed By: #### 5 7021-8 ####[facility] LABCLIA [id number] [place] [address] Neutrophils (Bld) [#/Vol] 1.91 10*3/uL Normal 1.45-7.50 [facility] Comment on above: Order Comment: Speci men Type: BLOOD SPECIMENOrdering Facility: [facility] Address: [address] [place] [address] Performed By: #### 5 7021-8 ####[facility] LABCLIA [id number] [place] [address] Neutrophils/100 WBC (Bld) 47.6 % Normal [facility] Comment on above: Order Comment: Speci men Type: BLOOD SPECIMENOrdering Facility: [facility] Address: [address] [place], [place] [address] Performed By: #### 5 7021-8 ####[facility] LABIA [id number] [place] [address] Nucleated RBC (Bld) [#/Vol] 10*3/uL Normal <0.01 [facility] Comment on above: Order Comment: Speci men Type: BLOOD SPECIMENOrdering Facility: [facility] Address: [address] [place] [address] Performed By: #### 5 7021-8 ####[facility] LABCLIA [id number] [place] [address] Nucleated RBC/100 WBC (Bld) [Ratio] 0.0 /100 WBC Normal [facility] Comment on above: Order Comment: Speci men Type: BLOOD SPECIMENOrdering Facility: [facility] Address: [address] [place] [address] Performed By: #### 5 7021-8 ####[facility] LABCLIA [id number] [place] [address] Platelet mean volume (Bld) [Entitic vol] 9.6 fL Normal 9.0-12.7 [facility] Comment on above: Order Comment: Speci men Type: BLOOD SPECIMENOrdering Facility: [facility] Address: [address] [place] [address] Performed By: #### 5 7021-8 ####[facility] LABCLIA [id number] [place] [address] Platelets (Bld) [#/Vol] 265 10*3/uL Normal 150-400 [facility] Comment on above: Order Comment: Speci men Type: BLOOD SPECIMENOrdering Facility: [facility] Address: [address] [place] [address] Performed By: #### 5 7021-8 ####[facility] LABCLIA [id number] [place] [address] RBC (Bld) [#/Vol] 4.48 10*6/uL Normal 3.90-5.20 [facility] Comment on above: Order Comment: Speci men Type: BLOOD SPECIMENOrdering Facility: [facility] Address: [address] [place] [address] Performed By: #### 5 7021-8 ####[facility] LABCLIA [id number] [place] [address] WBC (Bld) [#/Vol] 4.00 10*3/uL Normal 3.70-11.00 [facility] Comment on above: Order Comment: Speci men Type: BLOOD SPECIMENOrdering Facility: [facility] Address: [address] [place] [address] Performed By: #### 5 7021-8 ####[facility] LABCLIA [id number] [place] [address] Abs Immature Gran <0.03 <0.10 k/uL [facility] Basophils (Bld) [#/Vol] 0.04 10*3/uL <0.11 k/uL [facility] Basophils/100 WBC (Bld) 1.0 % [facility] Differential cell count method Nom (Bld) Auto [facility] Eosinophils (Bld) [#/Vol] 0.21 10*3/uL <0.46 k/uL [facility] Eosinophils/100 WBC (Bld) 5.3 % [facility] Erythrocyte distribution width (RBC) [Ratio] 14.1 % 11.5 - 15.0 % [facility] Hematocrit (Bld) [Volume fraction] 38.1 % 36.0 - 46.0 % [facility] Hemoglobin (Bld) [Mass/Vol] 12.2 g/dL 11.5 - 15.5 g/dL [facility] Immature Gran % 0.3 % [facility] Lymphocytes (Bld) [#/Vol] 1.37 10*3/uL 1.00 - 4.00 k/uL [facility] Lymphocytes/100 WBC (Bld) 34.3 % [facility] MCH (RBC) [Entitic mass] 27.2 pg 26.0 - 34.0 pg [facility] MCHC (RBC) [Mass/Vol] 32.0 g/dL 30.5 - 36.0 g/dL [facility] MCV (RBC) [Entitic vol] 85.0 fL 80.0 - 100.0 fL [facility] Monocytes (Bld) [#/Vol] 0.46 10*3/uL <0.87 k/uL [facility] Monocytes/100 WBC (Bld) 11.5 % [facility] Neutrophils (Bld) [#/Vol] 1.91 10*3/uL 1.45 - 7.50 k/uL [facility] Neutrophils/100 WBC (Bld) 47.6 % [facility] Nucleated RBC (Bld) [#/Vol] 10*3/uL <0.01 k/uL [facility] Nucleated RBC/100 WBC (Bld) [Ratio] 0.0 /100 WBC [facility] Platelet mean volume (Bld) [Entitic vol] 9.6 fL 9.0 - 12.7 fL [facility] Platelets (Bld) [#/Vol] 265 10*3/uL 150 - 400 k/uL [facility] RBC (Bld) [#/Vol] 4.48 10*6/uL 3.90 - 5.2 0 m/uL [facility] WBC (Bld) [#/Vol] 4.00 10*3/uL 3.70 - 11. 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[employer] CaddieBILLNoé During your visit today, we recorded the following information about you: Vika [facility] 10/06/2021 1:14 PM Signed 1st report of treatment-Non oncology regimen (Monoferric) Patient has [place] Medicaid therefore no FA is required Allergies As of Date: 10/06/2021 (No Known Allergies) Date Reviewed: 10/06/2021 Reviewed by: Arleth Bangura RN - Fully Assessed Reason for Visit: Benefits Investigation [6840] Prescriptions as of 10/06/2021 - SUMAtriptan (IMITREX) [...] Status:Closed by VIKA TURCIOS on 10/06/21 Normal [facility] Ferritin SerPl-mCncon 2021 Ferritin [Mass/Vol] 24.6 ng/mL Normal 14.7-205.1 [facility] Comment on above: Order Comment: Speci men Type: BLOOD SPECIMENOrdering Facility: [facility] Address: [address] [place], [place] [address] Performed By: #### 2 276-4, 40305-5 ####[facility] [id number] [place] [address] [place] Iron and Iron binding capaci ty panelon 10-06-2021 Iron [Mass/Vol] 33 ug/dL Low 41-186 [facility] Comment on above: Order Comment: Speci men Type: BLOOD SPECIMENOrdering Facility: [facility] Address: [address] [place], [place] [phone] Performed By: #### 2 276-4, 00348-5 ####[facility] LABIA [id number] [address] [place] Iron binding capacity [Mass/Vol] 426 ug/dL High 232-386 [facility] Comment on above: Order Comment: Speci men Type: BLOOD SPECIMENOrdering Facility: [facility] Address: [address] [place] [address] Performed By: #### 2 276-4, 93078-0 ####[facility] [id number] [address] [place] Iron/TIBC [Molar ratio] 7.7 % Low 15.0-57.0 [facility] Comment on above: Order Comment: Speci men Type: BLOOD SPECIMENOrdering Facility: [facility] Address: [address] [place] [phone] Performed By: #### 2 276-4, 02136-1 ####[facility] LABIA [id number] [address] [place] CNPNon 09-29-2021 CNPN Telephone (HEMASA) NEEL GARCIA ([id number]) 1980 F Date Time Provider Department 09/29/21 NEHEMIAS WARD During your visit today, we recorded the following information about you: Nehemias Ward MD 09/29/2021 8:52 AM Signed I [...] 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] 09/29/2021 Encounter Status:Closed by NEHEMIAS WARD on 09/29/21 Normal [facility] CBC W Auto Differential pane l (Bld)on 09-28-2021 Basophils (Bld) [#/Vol] 0.04 10*3/uL Normal <0.11 [facility] Comment on above: Order Comment: Speci men Type: BLOOD SPECIMENOrdering Facility: [facility] Address: [address] [place] [address] Performed By: #### 1 4196-0, 57723-6 ####[facility] LABCLIA [id number] [place] [address] Basophils/100 WBC (Bld) 0.8 % Normal [facility] Comment on above: Order Comment: Speci men Type: BLOOD SPECIMENOrdering Facility: [facility] Address: [address] [address] Performed By: #### 1 4196-0, 86465-5 ####[facility] LABCLIA [id number] [place] [address] Differential cell count method Nom (Bld) Auto Normal [facility] Comment on above: Order Comment: Speci men Type: BLOOD SPECIMENOrdering Facility: [facility] Address: [address] [address] Performed By: #### 1 4196-0, 76006-6 ####[facility] LABCLIA [id number] [place] [address] Eosinophils (Bld) [#/Vol] 0.27 10*3/uL Normal <0.46 [facility] Comment on above: Order Comment: Speci men Type: BLOOD SPECIMENOrdering Facility: [facility] Address: [address] [place] [address] Performed By: #### 1 4196-0, ####[facility] LABCLIA [id number] [place] [address] Eosinophils/100 WBC (Bld) 5.6 % Normal [facility] Comment on above: Order Comment: Speci men Type: BLOOD SPECIMENOrdering Facility: [facility] Address: [address] [place] [address] Performed By: #### 1 4196-0, ####[facility] LABIA [id number] [place] [address] Erythrocyte distribution width (RBC) [Ratio] 13.7 % Normal 11.5-15.0 [facility] Comment on above: Order Comment: Speci men Type: BLOOD SPECIMENOrdering Facility: [facility] Address: [address] [place] [address] Performed By: #### 1 4196-0, 03910-7 ####[facility] LABCLIA [id number] [place] [address] Hematocrit (Bld) [Volume fraction] 37.2 % Normal 36.0-46.0 [facility] Comment on above: Order Comment: Speci men Type: BLOOD SPECIMENOrdering Facility: [facility] Address: [address] [place] [address] Performed By: #### 1 4196-0, 00943-0 ####[facility] LABCLIA [id number] [place] [address] Hemoglobin (Bld) [Mass/Vol] 11.8 g/dL Normal 11.5-15.5 [facility] Comment on above: Order Comment: Speci men Type: BLOOD SPECIMENOrdering Facility: [facility] Address: [address] [place] [address] Performed By: #### 1 4196-0, 86579-1 ####[facility] LABCLIA [id number] [place] [address] IMMATURE GRAN % 0.2 % Normal [facility] Comment on above: Order Comment: Speci men Type: BLOOD SPECIMENOrdering Facility: [facility] Address: [address] [place] [address] Performed By: #### 1 4196-0, 20046-4 ####[facility] LABCLIA [id number] [place] [address] IMMATURE GRAN ABS <0.03 Normal <0.10 [facility] Comment on above: Order Comment: Speci men Type: BLOOD SPECIMENOrdering Facility: [facility] Address: [address] [place] [address] Performed By: #### 1 4196-0, 63352-9 ####[facility] LABCLIA [id number] [place] [address] Lymphocytes (Bld) [#/Vol] 1.88 10*3/uL Normal 1.00-4.00 [facility] Comment on above: Order Comment: Speci men Type: BLOOD SPECIMENOrdering Facility: [facility] Address: [address] [place] [address] Performed By: #### 1 4196-0, 51283-7 ####[facility] LABCLIA [id number] [place] [address] Lymphocytes/100 WBC (Bld) 38.9 % Normal [facility] Comment on above: Order Comment: Speci men Type: BLOOD SPECIMENOrdering Facility: [facility] Address: [address] [place] [address] Performed By: #### 1 4196-0, 52456-5 ####[facility] [id number] [place] [address] MCH (RBC) [Entitic mass] 27.3 pg Normal 26.0-34.0 [facility] Comment on above: Order Comment: Speci men Type: BLOOD SPECIMENOrdering Facility: [facility] Address: [address] [place] [address] Performed By: #### 1 4196-0, 01220-9 ####[facility] [id number] [place] [address] MCHC (RBC) [Mass/Vol] 31.7 g/dL Normal 30.5-36.0 [facility] Comment on above: Order Comment: Speci men Type: BLOOD SPECIMENOrdering Facility: [facility] Address: [address] [place] [address] Performed By: #### 1 4196-0, 84238-1 ####[facility] [id number] [place] [address] MCV (RBC) [Entitic vol] 85.9 fL Normal 80.0-100.0 [facility] Comment on above: Order Comment: Speci men Type: BLOOD SPECIMENOrdering Facility: [facility] Address: [address] [place] [address] Performed By: #### 1 4196-0, 31048-6 ####[facility] [id number] [place] [address] Monocytes (Bld) [#/Vol] 0.56 10*3/uL Normal <0.87 [facility] Comment on above: Order Comment: Speci men Type: BLOOD SPECIMENOrdering Facility: [facility] Address: [address] [place] [address] Performed By: #### 1 4196-0, 90832-4 ####[facility] LABCLIA [id number] [place] [address] Monocytes/100 WBC (Bld) 11.6 % Normal [facility] Comment on above: Order Comment: Speci men Type: BLOOD SPECIMENOrdering Facility: [facility] Address: [address] [place] [address] Performed By: #### 1 4196-0, 76918-1 ####[facility] LABCLIA [id number] [place] [address] Neutrophils (Bld) [#/Vol] 2.07 10*3/uL Normal 1.45-7.50 [facility] Comment on above: Order Comment: Speci men Type: BLOOD SPECIMENOrdering Facility: [facility] Address: [address] [place] [address] Performed By: #### 1 4196-0, 75295-3 ####[facility] LABCLIA [id number] [place] [address] Neutrophils/100 WBC (Bld) 42.9 % Normal [facility] Comment on above: Order Comment: Speci men Type: BLOOD SPECIMENOrdering Facility: [facility] Address: [address] [place] [address] Performed By: #### 1 4196-0, 20566-1 ####[facility] LABCLIA [id number] [place] [address] Nucleated RBC (Bld) [#/Vol] 10*3/uL Normal <0.01 [facility] Comment on above: Order Comment: Speci men Type: BLOOD SPECIMENOrdering Facility: [facility] Address: [address] [place] [address] Performed By: #### 1 4196-0, 75120-2 ####[facility] LABCLIA [id number] [place] [address] Nucleated RBC/100 WBC (Bld) [Ratio] 0.0 /100 WBC Normal [facility] Comment on above: Order Comment: Speci men Type: BLOOD SPECIMENOrdering Facility: [facility] Address: [address] [place] [address] Performed By: #### 1 4196-0, 92006-6 ####[facility] LABCLIA [id number] [place] [address] Platelet mean volume (Bld) [Entitic vol] 9.6 fL Normal 9.0-12.7 [facility] Comment on above: Order Comment: Speci men Type: BLOOD SPECIMENOrdering Facility: [facility] Address: [address] [place] [address] Performed By: #### 1 4196-0, 51973-0 ####[facility] LABIA [id number] [place] [address] Platelets (Bld) [#/Vol] 234 10*3/uL Normal 150-400 [facility] Comment on above: Order Comment: Speci men Type: BLOOD SPECIMENOrdering Facility: [facility] Address: [address] [place] [address] Performed By: #### 1 4196-0, 25591-6 ####[facility] LABIA [id number] [place] [address] RBC (Bld) [#/Vol] 4.33 10*6/uL Normal 3.90-5.20 [facility] Comment on above: Order Comment: Speci men Type: BLOOD SPECIMENOrdering Facility: [facility] Address: [address] [place] [address] Performed By: #### 1 4196-0, 44329-9 ####[facility] LABIA [id number] [place] [address] WBC (Bld) [#/Vol] 4.83 10*3/uL Normal 3.70-11.00 [facility] Comment on above: Order Comment: Speci men Type: BLOOD SPECIMENOrdering Facility: [facility] Address: [address] [place] [address] Performed By: #### 1 4196-0, 90606-6 ####[facility] LABCLIA [id number] [place] [address] CNOVSPon 09-28-2021 CNOVSP Visit (SP) Office ([facility]) NEEL GARCIA ([id number]) 1980 F Date Time Provider Department 09/28/21 1:45 PM NEHEMIAS WARD During your visit today, we recorded the following information about you: Temperature Pulse Respiration Blood pressure 97.6 degrees 65/minute 16/minute 116/70 Weight Height Last Period 86.5 kg 1.676 m 09/20/21 Nehemias Ward MD 09/28/2021 2:23 PM Signed HEMATOLOGY [...] provide more details. She was born in [place] and has lived in [place] in the past. She reports occasional smoking - cigars that are dipped in cognac - last use a month back. Occasional alcohol use. No other substance abuse reported. She lives with her with 5 children. She is not working now but used to work at [employer] (was laid off during ). MEDICATIONS AND [...] up in 3 months with repeat labs Nehemias Ward MD I spent a total of 20 minutes on the date of the service which included preparing to see the patient, [id number] patient care, completing clinical documentation, obtaining and/or reviewing separately obtained history, performing a medically appropriate examination, counseling and educating the patient/family/careg iver, ordering medications, tests, or procedures, independently interpreting results (not separately reported) and communicating results to the patient/family/careg iver. CC: Blade Bryan (more content not included)... Normal [facility] FERRITIN BLDon 09-28-2021 Ferritin [Mass/Vol] 22.9 ng/mL Normal 14.7-205.1 [facility] Comment on above: Order Comment: Andrew parks Type: BLOOD SPECIMENOrdering Facility: [facility] Address: [address] [place] [address] Performed By: #### FELIX LOMELI ####[facility] LABIA [id number] [place] [address] [place] IRON + TIBCon 09-28-2021 Iron [Mass/Vol] 44 ug/dL Normal 41-186 [facility] Comment on above: Order Comment: Andrew parks Type: BLOOD SPECIMENOrdering Facility: [facility] Address: [address] [place] [address] Performed By: #### FELIX LOMELI ####[facility] LABCLIA [id number] [place] [address] [place] Iron binding capacity [Mass/Vol] 415 ug/dL High 232-386 [facility] Comment on above: Order Comment: Andrew parks Type: BLOOD SPECIMENOrdering Facility: [facility] Address: [address] [id number] Performed By: #### I KENDRA, FERR ####[facility] LABCLIA [id number] [place] [address] [place] Iron/TIBC [Molar ratio] 11 % Low 15-57 [facility] Comment on above: Order Comment: Speci men Type: BLOOD SPECIMENOrdering Facility: [facility] Address: [address] [place], [place] [address] Performed By: #### I KENDRA, FERR ####[facility] LABCLIA [id number] [place] [address] [place] Retics #on 09-28-2021 Reticulocytes (Bld) [#/Vol] 0.35530 10*3/uL Normal 0.018-0.100 [facility] Comment on above: Order Comment: Speci men Type: BLOOD SPECIMENOrdering Facility: [facility] Address: [address] [place] [address] Performed By: #### 1 4196-0, 58791-2 ####[facility] LABCLIA [id number] [place] [address] Reticulocytes (Bld) [#/Vol]o n 09-28-2021 Reticulocytes/100 RBC (Bld) 1.0 % Normal 0.4-2.0 [facility] Comment on above: Order Comment: Speci men Type: BLOOD SPECIMENOrdering Facility: [facility] Address: [address] [place], [place] [address] Performed By: #### 1 4196-0, 51408-6 ####[facility] LABCLIA [id number] [place] [address] HCG,Quantitativeon 2 HCG,Quantitative < 0.[address] [facility] Comment on above: Result Comment: Appr oximate Approximate hCG Gestational Age Range (mIU/ml) (weeks) 0.2-1 5-50 1-2 50-500 2-3 100-5,000 3-4 500-10,000 4-5 1,000-50,000 5-6 10,000-100,000 6-8 15,000-200,000 8-12 10,000-100,000 PERFORMED BY: [place] [id number] PATHOLOGIST [employer] WORK[employer] EDIN MONTERROSO M.D. Performed By: #### H CGQNT #### [address] Serum or plasma beta choriog onadotropin measurement (units/volume)Ordered By: Bryan Quiros on 09-20-2021 HCG.beta subunit Qn m[IU]/mL [facility] Comment on above: Approximate Approxim ate hCG Gestational Age Range (mIU/ml) (weeks) 0.2-1 5-50 1-2 50-500 2-3 100-5,000 3-4 500-10,000 4-5 1,000-50,000 5-6 10,000-100,000 6-8 15,000-200,000 8-12 10,000-100,000 [facility] SARS-CoV-2 (COVID-19) RNA JULEE+probe Ql (Unsp spec) Negative Normal Negative [facility] Comment on above: Order Comment: Healt hcare Worker?: N Result Comment: Testing for SARS-CoV-2 by RT-PCR This test was developed and its performance characteristics determined by [employer] ([employer]) and validated at the [facility]. This test has not been FDA [...] is terminated or revoked sooner. PERFORMED BY: [facility] [address] [place] [address] PATHOLOGIST GROUP HOME WORKER EDIN MONTERROSO M.D. Performed By: #### C OVID 19 [facility] #### [facility] [address] [id number] [facility] COVID-19 Positive/NegativeOr dered By: Bryan Quiros on 09-15-2021 SARS-CoV-2 (COVID-19) N gene JULEE+probe Ql (Resp) Negative Negative [facility] Comment on above: Testing for SARS-CoV -2 by RT-PCR This test was developed and its performance characteristics determined by [employer] ([employer]) and validated at the [facility]. This test has not been FDA [...] Basophils (Bld) [#/Vol] 0.04 10*3/uL Normal <0.11 [facility] Comment on above: Order Comment: Speci men Type: BLOOD SPECIMENOrdering Facility: [facility] Address: [address] [place] [address] Performed By: #### 5 7021-8 ####[facility] LABCLIA [id number] [place] [address] Basophils/100 WBC (Bld) 1.0 % Normal [facility] Comment on above: Order Comment: Speci men Type: BLOOD SPECIMENOrdering Facility: [facility] Address: [address] [place] [address] Performed By: #### 5 7021-8 ####[facility] LABCLIA [id number] [place] [address] Differential cell count method Nom (Bld) Auto Normal [facility] Comment on above: Order Comment: Speci men Type: BLOOD SPECIMENOrdering Facility: [facility] Address: [address] [place] [address] Performed By: #### 5 7021-8 ####[facility] LABCLIA [id number] [place] [address] Eosinophils (Bld) [#/Vol] 0.18 10*3/uL Normal <0.46 [facility] Comment on above: Order Comment: Speci men Type: BLOOD SPECIMENOrdering Facility: [facility] Address: [address] [place] [address] Performed By: #### 5 7021-8 ####[facility] LABCLIA [id number] [place] [address] Eosinophils/100 WBC (Bld) 4.6 % Normal [facility] Comment on above: Order Comment: Speci men Type: BLOOD SPECIMENOrdering Facility: [facility] Address: [address] [place] [address] Performed By: #### 5 7021-8 ####[facility] LABCLIA [id number] [place] [address] Erythrocyte distribution width (RBC) [Ratio] 14.9 % Normal 11.5-15.0 [facility] Comment on above: Order Comment: Speci men Type: BLOOD SPECIMENOrdering Facility: [facility] Address: [address] [place] [address] Performed By: #### 5 7021-8 ####[facility] LABCLIA [id number] [place] [address] Hematocrit (Bld) [Volume fraction] 38.6 % Normal 36.0-46.0 [facility] Comment on above: Order Comment: Speci men Type: BLOOD SPECIMENOrdering Facility: [facility] Address: [address] [place] [address] Performed By: #### 5 7021-8 ####[facility] LABIA [id number] [place] [address] Hemoglobin (Bld) [Mass/Vol] 12.2 g/dL Normal 11.5-15.5 [facility] Comment on above: Order Comment: Speci men Type: BLOOD SPECIMENOrdering Facility: [facility] Address: [address] [place] [address] Performed By: #### 5 7021-8 ####[facility] LABIA [id number] [place] [address] IMMATURE GRAN % 0.3 % Normal [facility] Comment on above: Order Comment: Speci men Type: BLOOD SPECIMENOrdering Facility: [facility] Address: [address] [place] [address] Performed By: #### 5 7021-8 ####[facility] LABIA [id number] [place] [address] IMMATURE GRAN ABS <0.03 Normal <0.10 [facility] Comment on above: Order Comment: Speci men Type: BLOOD SPECIMENOrdering Facility: [facility] Address: [address] [place] [address] Performed By: #### 5 7021-8 ####[facility] LABIA [id number] [place] [address] Lymphocytes (Bld) [#/Vol] 1.57 10*3/uL Normal 1.00-4.00 [facility] Comment on above: Order Comment: Speci men Type: BLOOD SPECIMENOrdering Facility: [facility] Address: [address] [place] [address] Performed By: #### 5 7021-8 ####[facility] LABCLIA [id number] [place] [address] Lymphocytes/100 WBC (Bld) 40.4 % Normal [facility] Comment on above: Order Comment: Speci men Type: BLOOD SPECIMENOrdering Facility: [facility] Address: [address] [place] [address] Performed By: #### 5 7021-8 ####[facility] LABCLIA [id number] [place] [address] MCH (RBC) [Entitic mass] 27.2 pg Normal 26.0-34.0 [facility] Comment on above: Order Comment: Speci men Type: BLOOD SPECIMENOrdering Facility: [facility] Address: [address] [place] [address] Performed By: #### 5 7021-8 ####[facility] LABCLIA [id number] [place] [address] MCHC (RBC) [Mass/Vol] 31.6 g/dL Normal 30.5-36.0 [facility] Comment on above: Order Comment: Speci men Type: BLOOD SPECIMENOrdering Facility: [facility] Address: [address] [place], [place] [address] Performed By: #### 5 7021-8 ####[facility] LABCLIA [id number] [place] [address] MCV (RBC) [Entitic vol] 86.2 fL Normal 80.0-100.0 [facility] Comment on above: Order Comment: Speci men Type: BLOOD SPECIMENOrdering Facility: [facility] Address: [address] [place] [address] Performed By: #### 5 7021-8 ####[facility] LABCLIA [id number] [place] [address] Monocytes (Bld) [#/Vol] 0.43 10*3/uL Normal <0.87 [facility] Comment on above: Order Comment: Speci men Type: BLOOD SPECIMENOrdering Facility: [facility] Address: [address] [place] [address] Performed By: #### 5 7021-8 ####[facility] LABCLIA [id number] [place] [address] Monocytes/100 WBC (Bld) 11.1 % Normal [facility] Comment on above: Order Comment: Speci men Type: BLOOD SPECIMENOrdering Facility: [facility] Address: [address] [place] [address] Performed By: #### 5 7021-8 ####[facility] LABCLIA [id number] [place] [address] Neutrophils (Bld) [#/Vol] 1.66 10*3/uL Normal 1.45-7.50 [facility] Comment on above: Order Comment: Speci men Type: BLOOD SPECIMENOrdering Facility: [facility] Address: [address] [place] [address] Performed By: #### 5 7021-8 ####[facility] LABCLIA [id number] [place] [address] Neutrophils/100 WBC (Bld) 42.6 % Normal [facility] Comment on above: Order Comment: Speci men Type: BLOOD SPECIMENOrdering Facility: [facility] Address: [address] [place] [address] Performed By: #### 5 7021-8 ####[facility] LABCLIA [id number] [place] [address] Nucleated RBC (Bld) [#/Vol] 10*3/uL Normal <0.01 [facility] Comment on above: Order Comment: Speci men Type: BLOOD SPECIMENOrdering Facility: [facility] Address: [address] [place] [address] Performed By: #### 5 7021-8 ####[facility] LABCLIA [id number] [place] [address] Nucleated RBC/100 WBC (Bld) [Ratio] 0.0 /100 WBC Normal [facility] Comment on above: Order Comment: Speci men Type: BLOOD SPECIMENOrdering Facility: [facility] Address: [address] [place] [address] Performed By: #### 5 7021-8 ####[facility] LABCLIA [id number] [place] [address] Platelet mean volume (Bld) [Entitic vol] 10.2 fL Normal 9.0-12.7 [facility] Comment on above: Order Comment: Speci men Type: BLOOD SPECIMENOrdering Facility: [facility] Address: [address] [place] [address] Performed By: #### 5 7021-8 ####[facility] LABIA [id number] [place] [address] Platelets (Bld) [#/Vol] 279 10*3/uL Normal 150-400 [facility] Comment on above: Order Comment: Speci men Type: BLOOD SPECIMENOrdering Facility: [facility] Address: [address] [place], [place] [address] Performed By: #### 5 7021-8 ####[facility] LABCLIA [id number] [place] [address] RBC (Bld) [#/Vol] 4.48 10*6/uL Normal 3.90-5.20 [facility] Comment on above: Order Comment: Speci men Type: BLOOD SPECIMENOrdering Facility: [facility] Address: [address] [place] [address] Performed By: #### 5 7021-8 ####[facility] LABCLIA [id number] [place] [address] WBC (Bld) [#/Vol] 3.89 10*3/uL Normal 3.70-11.00 [facility] Comment on above: Order Comment: Speci men Type: BLOOD SPECIMENOrdering Facility: [facility] Address: [facility] [address] Performed By: #### 5 7021-8 ####[facility] LABCLIA [id number] [place] [address] CNOVSPon 08-14-2021 CNOVSP Visit (SP) Office (HEMAS[place]) NEEL GARCIA ([id number]) 1980 F Date Time Provider Department 08/14/21 1:45 PM NEHEMIAS WARD During your visit today, we recorded the following information about you: Temperature Pulse Respiration Blood pressure 97.1 degrees 65/minute 16/minute 115/57 Weight Height 88.7 kg 1.676 m Nehemias Ward MD 08/14/2021 1:58 PM Signed HEMATOLOGY [...] provide more details. She was born in [place] and has lived in [place] in the past. She reports occasional smoking - cigars that are dipped in cognac - last use a month back. Occasional alcohol use. No other substance abuse reported. She lives with her with 5 children. She is not working now but used to work at [employer] (was laid off during COVID-19). MEDICATIONS AND [...] up in 6 weeks with labs prior. Nehemias Ward MD I spent a total of 15 minutes on the date of the service which included preparing to see the patient, [id number] patient care, completing clinical documentation, obtaining and/or reviewing separately obtained history, performing a medically appropriate examination, counseling and educating the patient/family/careg iver, ordering medications, tests, or procedures, independently interpreting results (not separately reported) and communicating results to the patient/family/careg iver. CC: Blade Crews Sr. Referring Provider: NEHEMIAS WARD [[id number]] Allergies As of Date: 08/14/2021 (No Known Allergies) Date Reviewed: 08/14/2021 Reviewed by: Aranza Mobley MA - Fully Assessed Reason for Visit: Anemia [6] Cmt: 1 month follow up Primary Visit Diagnosis:Iron deficiency anemia, unspecified iron deficiency anemia type [D50.9] Order(s):CBC + DIFF [SQCBCDIF] Order #: [id number] FUTURE RETIC C (more content not included)... Normal [facility] IRON + TIBCon 08-14-2021 Iron [Mass/Vol] 61 ug/dL Normal 41-186 [facility] Comment on above: Order Comment: Andrew parks Type: BLOOD SPECIMENOrdering Facility: [facility] Address: [address] [place] [address] Result Comment: Resu lts may be falsely increased due to interference from hemolysis. Suggest reorder as clinically indicated. Performed By: #### I KENDRA ####[facility] LABCLIA [id number] [place] [address] [place] Iron binding capacity [Mass/Vol] Normal [facility] Comment on above: Order Comment: Andrew parks Type: BLOOD SPECIMENOrdering Facility: [facility] Address: [address] [place] [address] Result Comment: Unab le to calculate due to hemolysis. Performed By: #### I KENDRA ####[facility] LABCLIA [id number] [address] Iron/TIBC [Molar ratio] Normal [facility] Comment on above: Order Comment: Speci men Type: BLOOD SPECIMENOrdering Facility: [facility] Address: [address] [place] [address] Result Comment: Unab le to calculate due to hemolysis. Performed By: #### I KENDRA ####[facility] LABCLIA [id number] [address] [place] CBC W Auto Differential pane l (Bld)on 06-26-2021 Basophils (Bld) [#/Vol] 0.04 10*3/uL Normal <0.11 [facility] Comment on above: Order Comment: Speci men Type: BLOOD SPECIMENOrdering Facility: [facility] Address: [address] [place] [address] Performed By: #### 5 7021-8 ####[facility] LABIA [id number] [place] [address] Basophils/100 WBC (Bld) 0.8 % Normal [facility] Comment on above: Order Comment: Speci men Type: BLOOD SPECIMENOrdering Facility: [facility] Address: [address] [place] [address] Performed By: #### 5 7021-8 ####[facility] LABCLIA [id number] [place] [address] Differential cell count method Nom (Bld) Auto Normal [facility] Comment on above: Order Comment: Speci men Type: BLOOD SPECIMENOrdering Facility: [facility] Address: [address] [place] [address] Performed By: #### 5 7021-8 ####[facility] LABCLIA [id number] [place] [address] Eosinophils (Bld) [#/Vol] 0.14 10*3/uL Normal <0.46 [facility] Comment on above: Order Comment: Speci men Type: BLOOD SPECIMENOrdering Facility: [facility] Address: [address] [place] [address] Performed By: #### 5 7021-8 ####[facility] LABCLIA [id number] [place] [address] Eosinophils/100 WBC (Bld) 2.9 % Normal [facility] Comment on above: Order Comment: Speci men Type: BLOOD SPECIMENOrdering Facility: [facility] Address: [address] [place] [address] Performed By: #### 5 7021-8 ####[facility] LABCLIA [id number] [place] [address] Erythrocyte distribution width (RBC) [Ratio] 15.4 % High 11.5-15.0 [facility] Comment on above: Order Comment: Speci men Type: BLOOD SPECIMENOrdering Facility: [facility] Address: [address] [place] [address] Performed By: #### 5 7021-8 ####[facility] LABCLIA [id number] [place] [address] Hematocrit (Bld) [Volume fraction] 38.8 % Normal 36.0-46.0 [facility] Comment on above: Order Comment: Speci men Type: BLOOD SPECIMENOrdering Facility: [facility] Address: [address] [place] [address] Performed By: #### 5 7021-8 ####[facility] LABCLIA [id number] [place] [address] Hemoglobin (Bld) [Mass/Vol] 12.4 g/dL Normal 11.5-15.5 [facility] Comment on above: Order Comment: Speci men Type: BLOOD SPECIMENOrdering Facility: [facility] Address: [address] [place] [address] Performed By: #### 5 7021-8 ####[facility] LABCLIA [id number] [place] [address] IMMATURE GRAN % 0.2 % Normal [facility] Comment on above: Order Comment: Speci men Type: BLOOD SPECIMENOrdering Facility: [facility] Address: [address] [place] [address] Performed By: #### 5 7021-8 ####[facility] LABCLIA [id number] [place] [address] IMMATURE GRAN ABS <0.03 Normal <0.10 [facility] Comment on above: Order Comment: Speci men Type: BLOOD SPECIMENOrdering Facility: [facility] Address: [address] [place] [address] Performed By: #### 5 7021-8 ####[facility] LABCLIA [id number] [place] [address] Lymphocytes (Bld) [#/Vol] 1.53 10*3/uL Normal 1.00-4.00 [facility] Comment on above: Order Comment: Speci men Type: BLOOD SPECIMENOrdering Facility: [facility] Address: [address] [place] [address] Performed By: #### 5 7021-8 ####[facility] LABCLIA [id number] [place] [address] Lymphocytes/100 WBC (Bld) 31.2 % Normal [facility] Comment on above: Order Comment: Speci men Type: BLOOD SPECIMENOrdering Facility: [facility] Address: [address] [place] [address] Performed By: #### 5 7021-8 ####[facility] LABCLIA [id number] [place] [address] MCH (RBC) [Entitic mass] 27.1 pg Normal 26.0-34.0 [facility] Comment on above: Order Comment: Speci men Type: BLOOD SPECIMENOrdering Facility: [facility] Address: [address] [place] [address] Performed By: #### 5 7021-8 ####[facility] LABCLIA [id number] [place] [address] MCHC (RBC) [Mass/Vol] 32.0 g/dL Normal 30.5-36.0 [facility] Comment on above: Order Comment: Speci men Type: BLOOD SPECIMENOrdering Facility: [facility] Address: [address] [place] [address] Performed By: #### 5 7021-8 ####[facility] LABIA [id number] [place] [address] MCV (RBC) [Entitic vol] 84.7 fL Normal 80.0-100.0 [facility] Comment on above: Order Comment: Speci men Type: BLOOD SPECIMENOrdering Facility: [facility] Address: [address] [place] [address] Performed By: #### 5 7021-8 ####[facility] LABIA [id number] [place] [address] Monocytes (Bld) [#/Vol] 0.49 10*3/uL Normal <0.87 [facility] Comment on above: Order Comment: Speci men Type: BLOOD SPECIMENOrdering Facility: [facility] Address: [address] [place] [address] Performed By: #### 5 7021-8 ####[facility] LABCLIA [id number] [place] [address] Monocytes/100 WBC (Bld) 10.0 % Normal [facility] Comment on above: Order Comment: Speci men Type: BLOOD SPECIMENOrdering Facility: [facility] Address: [address] [place] [address] Performed By: #### 5 7021-8 ####[facility] LABCLIA [id number] [place] [address] Neutrophils (Bld) [#/Vol] 2.70 10*3/uL Normal 1.45-7.50 [facility] Comment on above: Order Comment: Speci men Type: BLOOD SPECIMENOrdering Facility: [facility] Address: [address] [place] [address] Performed By: #### 5 7021-8 ####[facility] LABCLIA [id number] [place] [address] Neutrophils/100 WBC (Bld) 54.9 % Normal [facility] Comment on above: Order Comment: Speci men Type: BLOOD SPECIMENOrdering Facility: [facility] Address: [address] [place] [address] Performed By: #### 5 7021-8 ####[facility] LABCLIA [id number] [place] [address] Nucleated RBC (Bld) [#/Vol] 10*3/uL Normal <0.01 [facility] Comment on above: Order Comment: Speci men Type: BLOOD SPECIMENOrdering Facility: [facility] Address: [address] [place] [address] Performed By: #### 5 7021-8 ####[facility] LABCLIA [id number] [place] [address] Nucleated RBC/100 WBC (Bld) [Ratio] 0.0 /100 WBC Normal [facility] Comment on above: Order Comment: Speci men Type: BLOOD SPECIMENOrdering Facility: [facility] Address: [address] [place] [address] Performed By: #### 5 7021-8 ####[facility] LABIA [id number] [place] [address] Platelet mean volume (Bld) [Entitic vol] 9.5 fL Normal 9.0-12.7 [facility] Comment on above: Order Comment: Speci men Type: BLOOD SPECIMENOrdering Facility: [facility] Address: [address] [place] [address] Performed By: #### 5 7021-8 ####[facility] [id number] [place] [address] Platelets (Bld) [#/Vol] 286 10*3/uL Normal 150-400 [facility] Comment on above: Order Comment: Speci men Type: BLOOD SPECIMENOrdering Facility: [facility] Address: [address] [place] [address] Performed By: #### 5 7021-8 ####[facility] [id number] [place] [address] RBC (Bld) [#/Vol] 4.58 10*6/uL Normal 3.90-5.20 [facility] Comment on above: Order Comment: Speci men Type: BLOOD SPECIMENOrdering Facility: [facility] Address: [address] [place] [address] Performed By: #### 5 7021-8 ####[facility] [id number] [place] [address] WBC (Bld) [#/Vol] 4.91 10*3/uL Normal 3.70-11.00 [facility] Comment on above: Order Comment: Speci men Type: BLOOD SPECIMENOrdering Facility: [facility] Address: [address] [place] [address] Performed By: #### 5 7021-8 ####[facility] [id number] [place] [address] CNOVSPon 06-26-2021 CNOVS Visit (SP) Office (HEMASA) NEEL GARCIA ([id number]) 1980 F Date Time Provider Department 06/26/21 2:45 PM NEHEMIAS WARD During your visit today, we recorded the following information about you: Temperature Pulse Respiration Blood pressure 97.6 degrees 69/minute 16/minute 107/69 Weight Height 89.6 kg 1.676 m Nehemias Ward MD 06/26/2021 3:18 PM Signed HEMATOLOGY [...] provide more details. She was born in [place] and has lived in [place] in the past. She reports occasional smoking - cigars that are dipped in cognac - last use a month back. Occasional alcohol use. No other substance abuse reported. She lives with her with 5 children. She is not working now but used to work at [employer] (was laid off during ). MEDICATIONS AND [...] Follow up in 6 weeks with labs. Nehemias Ward MD I spent a total of 16 minutes on the date of the service which included preparing to see the patient, qpyh-rl-mefh patient care, completing clinical documentation, obtaining and/or reviewing separately obtained history, performing a medically appropriate examination, counseling and educating the patient/family/careg iver, ordering medications, tests, or procedures, independently interpreting results (not separately reported) and communicating results to the patient/family/careg iver. CC (more content not included)... Normal [facility] SARS-CoV-2 (COVID-19) RNA JULEE+probe Ql (Unsp spec) Negative Normal Negative [facility] Comment on above: Order Comment: Healt hcare Worker?: N Result Comment: Testing for SARS-CoV-2 by RT-PCR This test was developed and its performance characteristics determined by [employer]) and validated at the [facility]. This test has not been FDA [...] is terminated or revoked sooner. PERFORMED BY: [place] [address] PATHOLOGIST GROUP HOME WORKER EDIN MONTERROSO M.D. Performed By: #### C OVID 19 [facility] #### [address] COVID-19 Positive/NegativeOr dered By: Bryan Quiros on 06-26-2021 SARS-CoV-2 (COVID-19) N gene JULEE+probe Ql (Resp) Negative Negative [facility] Comment on above: Testing for SARS-CoV -2 by RT-PCR This test was developed and its performance characteristics determined by [employer] ([employer]) and validated at the [facility]. This test has not been FDA [...] 06-26-2021 Ferritin [Mass/Vol] 34.6 ng/mL Normal 14.7-205.1 [facility] Comment on above: Order Comment: Specbrandee parks Type: BLOOD SPECIMENOrdering Facility: [facility] Address: [address] [place] [address] Performed By: #### I KENDRA FERR ####[facility] LABIA [id number] [place] [address] [place] IRON + TIBCon 06-26-2021 Iron [Mass/Vol] 60 ug/dL Normal 41-186 [facility] Comment on above: Order Comment: Speci kasey Type: BLOOD SPECIMENOrdering Facility: [facility] Address: [address] [address] Performed By: #### I KENDRA, FERR ####[facility] LABIA [id number] [place] [address] [place] Iron binding capacity [Mass/Vol] 398 ug/dL High 232-386 [facility] Comment on above: Order Comment: Speci kasey Type: BLOOD SPECIMENOrdering Facility: [facility] Address: [address] [address] Performed By: #### I KENDRA, FERR ####[facility] LABCLIA [id number] [address] OF [facility] Iron/TIBC [Molar ratio] 15 % Normal 15-57 [facility] Comment on above: Order Comment: Speci men Type: BLOOD SPECIMENOrdering Facility: [facility] Address: [address] [place] [address] Performed By: #### I KENDRA FERR ####[facility] LABCLIA [id number] [address] OF [facility] CNPCathie 06-20-2021 CNPN Telephone (HEMASA) NEEL GARCIA ([id number]) 1980 F Date Time Provider Department 06/20/21 NEHEMIAS WARD During your visit today, we recorded [...] [D50.9] Order(s):CBC + DIFF [SQCBCDIF] Order #: [id number] FUTURE Prescriptions as of 06/22/2021 - ferrous [...] Of Date: 06/20/2021 (None) Encounter Status:Closed by RUSSELLJuly on 06/22/21 [facility] 05-30-2021 CNPN Telephone (HEMASA) NEEL GARCIA ([id number]) 1980 F Date Time Provider Department 05/30/21 NEHEMIAS WARD During your visit today, we recorded the following information about you: Nehemias Ward MD 05/30/2021 12:37 PM Signed I [...] iron once a day (prescription sent to [facility] in [place], [place]) and follow-up in 1 month with repeat labs. She will also need a referral to see a chauffeur airport limousine for scopes. MD Alina Thomas Sec 05/30/2021 12:48 PM Addendum sloane please send records to [facility] I will print facesheet for you Alina Burnett Sec 05/30/2021 12:50 PM Signed Patient is already scheduled for month appt Amelie [facility] 05/30/2021 1:22 PM Signed Records faxed to Dr. Quiros. Miriam Raymond Pss 06/05/2021 11:18 AM Signed Called [facility] and spoke with Karolina. She states they have received patient records and their office will be calling patient soon to schedule. Miriam Raymond Pss 06/07/2021 3:01 PM Signed Called [facility] Rahman spoke with Christiane. She states their telehealth coordinator will be calling patient to schedule. Miriam Raymond [facility] Miriam Raymond Pss 06/19/2021 10:42 AM Signed Called [facility]beca Rahman spoke with Karolina. She states they have tried to call patient left several messages and are waiting for patient to call their office back. Miriam Raymond Pss Miriam Raymond Pss 06/28/2021 1:07 PM Signed Spoke with Christiane from [facility] office. She states patient was scheduled today 06/28 for Colonoscopy and EGD, but they received voicemail from patient she wanted to cancel due to she was not feeling well. Miriam Raymond [facility] Vanna Villar 08/14/2021 2:43 PM Signed Spoke w/ Tamanna to let her know that patient is now ready to be scheduled for this. She states she will forward and will contact patient to schedule. Vanna Semon Allergies As of Date: 05/30/2021 (No Known Allergies) Date Reviewed: 05/29/2021 Reviewed by: Laurie Russell - Fully Assessed Reason for Visit: Results [95] Primary Visit Diagnosis:Iron deficiency anemia, unspecified iron deficiency anemia type [D50.9] Order(s):CONSULT TO GASTROENTEROLOGY [9010] Order #: [id number]: 1 FUTURE [] ferrous sulfate 325 mg (65 mg iron) tabletTake 1 tablet by mouth daily with breakfast.Disp: 30 tabletRfl: 2 IRON + TIBC [SQIRON] Order #: [id number] FUTURE FERRITIN BLD [SQFERR] Order #: [id number] FUTURE Prescriptions as of 08/14/2021 - SUMAtriptan [...] mouth daily with breakfast. Encounter Status:Closed by NEHEMAIS WARD on 05/30/21 Normal [facility] APTTon 05-29-2021 aPTT Coag (d) [Time] 27.8 s Normal 23.0-32.4 Cl [facility] Comment on above: Result Comment: [...] laboratory APTT reagent in use throughout the [facility]. Performed By: #### P TT, WSR, TT, FERR, FIBCT, PT, HAPTO, CRP, IRON ####[place] [id number] [place], [place] [phone] C-Reactive Proteinon 022 C-Reactive Protein 0.5 mg/dL Normal <0.9 [facility] Comment on above: Performed By: #### P TT, WSR, TT, FERR, FIBCT, PT, HAPTO, CRP, IRON ####[facility] [place], [place] [phone] CNOVSPon 05-29-2021 CNOVS Visit (SP) Office (HEMASA) NEEL GARCIA ([id number]) 1980 F Date Time Provider Department 05/29/21 3:00 PM NEHEMIAS WARD During your visit today, we recorded the following information about you: Temperature Pulse Respiration Blood pressure 97.2 degrees 67/minute 18minute 115/68 Weight Height Last Period 89.8 kg 1.676 m 05/26/21 Nehemias Ward MD 05/29/2021 4:39 PM Signed HEMATOLOGY [...] provide more details. She was born in [place] and has lived in [place] in the past. She reports occasional smoking - cigars that are dipped in cognac - last use a month back. Occasional alcohol use. No other substance abuse reported. She lives with her with 5 children. She is not working now but used to work at [employer] (was laid off during -). MEDICATIONS AND [...] 5 weeks to review above testing results. Nehemias Ward MD I spent a total of 50 minutes on the date of the service which included preparing to see the patient, mfqw-yc-susv patient care, completing clinical documentation, obtaining and/or reviewing separately obtained history, performing a medically appropriate examination, counseling and educating the patient/family/careg iver, ordering medications, tests, or procedures, independently interpreting results (not separately reported) and communicating results to the patient/family/careg iver. CC: Blade Crews Sr. Referring Provider: BLADE CREWS SR [[id number]] Allergies As of Date: 05/29/2021 (No Known Allergies) Date Reviewed: 05/29/2021 Reviewed by: Laurie Russell - Fully Assessed Reason for Visit: New Patient [172] Cmt: easy bruising Primary Visit Diagnosis:Anemia, unspecified type [D64.9] Other Visit Diagnosis:Easy bruisability [R23.8] Order(s):CBC + DIFF (FOR REMOTE [facility] USE) [SQRCBCDF] Order #: [id number] FUTURE COMP METABOLIC PANEL [SQCMP] Order #: [id number] FUTURE SED RATE WESTERGREN [SQWSR] Order #: [id number] FUTURE C-REACTIVE PROTEIN (CRP) [SQCRP] Order #: [id number] FUTURE IRON + TIBC [SQIRON] Order #: [id number] FUTU (more content not included)... Normal [facility] Comp Metabolic Panelon 05-29 Albumin [Mass/Vol] 4.6 g/dL Normal 3.9-4.9 [facility] Comment on above: Performed By: #### P TT, WSR, TT, FERR, FIBCT, PT, HAPTO, CRP, IRON ####[place] [address] [place] [phone] ALP [Catalytic activity/Vol] 83 U/L Normal 34-123 [facility] Comment on above: Performed By: #### P TT, WSR, TT, FERR, FIBCT, PT, HAPTO, CRP, IRON ####[place] [address] [address] [phone] ALT [Catalytic activity/Vol] 21 U/L Normal 7-38 [facility] Comment on above: Performed By: #### P TT, WSR, TT, FERR, FIBCT, PT, HAPTO, CRP, IRON ####[place] [address], [place] [phone] Anion gap [Moles/Vol] 11 mmol/L Normal 9-18 [facility] Comment on above: Performed By: #### P TT, WSR, TT, FERR, FIBCT, PT, HAPTO, CRP, IRON ####[place] [address] [address] [phone] AST [Catalytic activity/Vol] 19 U/L Normal 13-35 [facility] Comment on above: Performed By: #### P TT, WSR, TT, FERR, FIBCT, PT, HAPTO, CRP, IRON ####[place] [address] [phone] Bilirubin [Mass/Vol] 0.6 mg/dL Normal 0.2-1.3 [facility] Comment on above: Performed By: #### P TT, WSR, TT, FERR, FIBCT, PT, HAPTO, CRP, IRON ####[place] [address] [address] [phone] Calcium [Mass/Vol] 9.2 mg/dL Normal 8.5-10.2 [facility] Comment on above: Performed By: #### P TT, WSR, TT, FERR, FIBCT, PT, HAPTO, CRP, IRON ####[address] [place] [phone] Chloride [Moles/Vol] 107 mmol/L High 97-105 [facility] Comment on above: Performed By: #### P TT, WSR, TT, FERR, FIBCT, PT, HAPTO, CRP, IRON ####[address] [place] [phone] CO2 [Moles/Vol] 23 mmol/L Normal 22-30 [facility] Comment on above: Performed By: #### P TT, WSR, TT, FERR, FIBCT, PT, HAPTO, CRP, IRON ####[place] [address] [place] [phone] Creatinine [Mass/Vol] 1.00 mg/dL High 0.58-0.96 [facility] Comment on above: Performed By: #### P TT, WSR, TT, FERR, FIBCT, PT, HAPTO, CRP, IRON ####[place] [address] [phone] eGFR- Amer. >60 Normal [facility] Comment on above: Performed By: #### P TT, WSR, TT, FERR, FIBCT, PT, HAPTO, CRP, IRON ####[place] [address] [phone] eGFR-All Other Races >60 Normal [facility] Comment on above: Result Comment: eGFR [...] PT, HAPTO, CRP, IRON ####[facility] [place], [place] [phone] Glucose [Mass/Vol] 85 mg/dL Normal 74-99 [facility] Comment on above: Result Comment: The [facility] [place] [employer] (ADA) provides guidance for cutoff [...] Standards of Medical Care in Diabetes 2016, [place] [employer]. Diabetes Care. 2016.39(Suppl 1). Performed By: #### P TT, WSR, TT, FERR, FIBCT, PT, HAPTO, CRP, IRON ####[facility] [place], [place] [phone] Potassium [Moles/Vol] 3.3 mmol/L Low 3.7-5.1 [facility] Comment on above: Performed By: #### P TT, WSR, TT, FERR, FIBCT, PT, HAPTO, CRP, IRON ####[address] [place], [place] [phone] Protein [Mass/Vol] 7.6 g/dL Normal 6.3-8.0 [facility] Comment on above: Performed By: #### P TT, WSR, TT, FERR, FIBCT, PT, HAPTO, CRP, IRON ####[address] [phone] Sodium [Moles/Vol] 141 mmol/L Normal 136-144 [facility] Comment on above: Performed By: #### P TT, WSR, TT, FERR, FIBCT, PT, HAPTO, CRP, IRON ####[address] [phone] Urea nitrogen [Mass/Vol] 12 mg/dL Normal 7-21 [facility] Comment on above: Performed By: #### P TT, WSR, TT, FERR, FIBCT, PT, HAPTO, CRP, IRON ####[address] [phone] Ferritinon 05-29-2021 Ferritin [Mass/Vol] 14.6 ng/mL Low 14.7-205.1 [facility] Comment on above: Performed By: #### P TT, WSR, TT, FERR, FIBCT, PT, HAPTO, CRP, IRON ####[address] [phone] Fibrinogenon 05-29-2021 Fibrinogen 338 mg/dL Normal 200-400 [facility] Comment on above: Performed By: #### P TT, WSR, TT, FERR, FIBCT, PT, HAPTO, CRP, IRON ####[address], [place] [phone] Haptoglobinon 05-29-2021 Haptoglobin 161 mg/dL Normal 31-238 [facility] Comment on above: Performed By: #### P TT, WSR, TT, FERR, FIBCT, PT, HAPTO, CRP, IRON ####[address] [place], [place] [phone] Iron and TIBCon 05-29-2021 Iron [Mass/Vol] 53 ug/dL Normal 41-186 [facility] Comment on above: Performed By: #### P TT, WSR, TT, FERR, FIBCT, PT, HAPTO, CRP, IRON ####[address] [place], [place] [phone] TIBC 417 ug/dL High 232-386 [facility] Comment on above: Performed By: #### P TT, WSR, TT, FERR, FIBCT, PT, HAPTO, CRP, IRON ####[address] [place], [place] [phone] Transferrin Saturatn 13 % Low 15-57 [facility] Comment on above: Performed By: #### P TT, WSR, TT, FERR, FIBCT, PT, HAPTO, CRP, IRON ####[address] [phone] Platelet Func Scrnon 022 COL/ADP Cartridge Account Credited Normal <118 [facility] Comment on above: Result Comment: Test Not Done Notified Dr. Ward at 0940 on 05.30.21 AB Performed By: #### P LTSCP ####[address] [phone] COL/EPI Cartridge Account Credited Normal <[address] [facility] Comment on above: Result Comment: Test Not Done Notified Dr. Ward at 0940 on 05.30.21 AB Performed By: #### P LTSCP ####[address] [place], [place] [phone] Plt Func Scr Interp Account Credited Normal [facility] Comment on above: Performed By: #### P LTSCP ####[facility] [place], [place] [phone] Protimeon 05-29-2021 PT INR 1.0 Normal 0.9-1.3 [facility] Comment on above: Result Comment: Kathy min K Antagonist (VKA) Therapeutic Range: INR 2 to 3 (Target INR of 2.5) Note: For patients treated with VKA drugs, such as warfarin, the [place] [employer] 2012 Guideline recommends [...] Chest 2012, 141:7S-47S Srinivasa RA, et al. [facility] 2017, 70: 252-289 Performed By: #### P TT, WSR, TT, FERR, FIBCT, PT, HAPTO, CRP, IRON ####[facility] [place], [place] [phone] PT Sec 10.9 sec Normal 9.7-13.0 [facility] Comment on above: Performed By: #### P TT, WSR, TT, FERR, FIBCT, PT, HAPTO, CRP, IRON ####[facility] [place], [place] [phone] Remote CBCDIF (for [facility] use o nly)on 05-29-2021 Abs Baso 0.04 k/uL Normal <0.11 [facility] Abs Berks 0.49 k/uL Normal <0.87 [facility] Abs Neut 1.66 k/uL Normal 1.45-7.50 [facility] Absolute nRBC <0.01 Normal <0.01 [facility] Basophils/100 WBC (Bld) 1.0 % Normal [facility] DTYPE Auto Diff Normal [facility] Eosinophils (Bld) [#/Vol] 0.19 10*3/uL Normal <0.46 [facility] Eosinophils/100 WBC (Bld) 4.9 % Normal [facility] Erythrocyte distribution width (RBC) [Ratio] 14.6 % Normal 11.5-15.0 [facility] Hematocrit (Bld) [Volume fraction] 36.0 % Normal 36.0-46.0 [facility] Hemoglobin (Bld) [Mass/Vol] 11.5 g/dL Normal 11.5-15.5 [facility] Lymphocytes (Bld) [#/Vol] 1.50 10*3/uL Normal 1.00-4.00 [facility] Lymphocytes/100 WBC (Bld) 38.6 % Normal [facility] MCH 26.5 pG Normal 26.0-34.0 [facility] MCHC (RBC) [Mass/Vol] 31.9 g/dL Normal 30.5-36.0 [facility] MCV (RBC) [Entitic vol] 82.9 fL Normal 80.0-100.0 [facility] Monocytes/100 WBC (Bld) 12.6 % Normal [facility] Neutrophils/100 WBC (Bld) 42.9 % Normal [facility] NRBCs 0.0 /100 WBC Normal 0 [facility] Platelet mean volume (Bld) [Entitic vol] 9.2 fL Normal 9.0-12.7 [facility] Platelets (Bld) [#/Vol] 300 10*3/uL Normal 150-400 [facility] RBC (Bld) [#/Vol] 4.34 10*6/uL Normal 3.90-5.20 [facility] WBC (Bld) [#/Vol] 3.89 10*3/uL Normal 3.70-11.00 [facility] Reticulocyteon 02-07-2022 Abs Retic 0.047 M/uL Normal 0.0180-0.1000 [facility] Comment on above: Performed By: #### P TT, WSR, TT, FERR, FIBCT, PT, HAPTO, CRP, IRON ####[place] [id number] [place] [address], [place] [phone] Retic% 1.1 % Normal 0.4-2.0 [facility] Comment on above: Performed By: #### P TT, WSR, TT, FERR, FIBCT, PT, HAPTO, CRP, IRON ####[place] [address], [place] [phone] Sed Rate Westergrenon 2021 Sed Rate Westergren 22 mm/hr High 0-20 [facility] Comment on above: Performed By: #### P TT, WSR, TT, FERR, FIBCT, PT, HAPTO, CRP, IRON ####[place] [id number] [place], [place] [phone] Thrombin Timeon 05-29-2021 Thrombin Time 17.3 sec Normal <18.6 [facility] Comment on above: Performed By: #### P TT, WSR, TT, FERR, FIBCT, PT, HAPTO, CRP, IRON ####[place] [address], [place] [phone] MRI BRAIN W WO CONTRASTon MRI BRAIN [...] collection present. The proximal portions of the [place] demonstrate normal flow voids. ORBITS: Limited evaluation of the orbits is unremarkable. SINUSES: The paranasal sinuses and mastoid air cells are clear. BONES/SOFT TISSUES: Bone marrow signal intensity is normal. IMPRESSION: Normal MRI of the brain without findings to explain the patient's seizures. Interpreted by: Erasmo Humphries MD Signed by: Erasmo Humphries MD 10/22/19 Final result Normal [facility] Normal MRI of the brain without findings to explain the patient's seizures. [facility] [place] EXAMINATION: MRI OF THE BRAIN WITHOUT [...] collection present. The proximal portions of the [place] demonstrate normal flow voids. ORBITS: Limited evaluation of the orbits is unremarkable. SINUSES: The paranasal sinuses and mastoid air cells are clear. BONES/SOFT TISSUES: Bone marrow signal intensity is normal. [facility] [place], pn Incoming Radiant Results From [facility] - 10/22/2019 4:01 PM EDT EXAMINATION: MRI OF THE BRAIN WITHOUT AND WITH CONTRAST 10/22/2019 2:33 pm TECHNIQUE: Multiplanar multisequence MRI of the head/brain was performed without and with the administration of intravenous contrast. COMPARISON: None. HISTORY: ORDERING SYSTEM PROVIDED HISTORY: Intractable epilepsy without status epilepticus, unspecified epilepsy type ([facility]) TECHNOLOGIST PROVIDED HISTORY: Is the patient ?->No [...] collection present. The proximal portions of the [place] demonstrate normal flow voids. ORBITS: Limited evaluation of the orbits is unremarkable. SINUSES: The paranasal sinuses and mastoid air cells are clear. BONES/SOFT TISSUES: Bone marrow signal intensity is normal. IMPRESSION: Normal MRI of the brain without findings to explain the patient's seizures. [facility], [place] Vital Signs Date Time Vital Sign Value Performing Clinician Facility 10-30-2022 10:33-0400 Blood Pressure Location AMELIE ESPARZA [facility] 10-30-2022 10:33-0400 Diastolic blood pressure 84 mm[Hg] AMELIEALEXA ESPARZA [facility] 10-30-2022 10:33-0400 Heart rate 61 /min AMELIE FRED [facility] 10-30-2022 10:33-0400 Respiratory rate 16 /min AMELIE ESPARZA [facility] 10-30-2022 10:33-0400 Systolic blood pressure 126 mm[Hg] AMELIE FRED [facility] 09-28-2021 13:53-0400 Body height 167.6 cm Nehemias Ward MD Work Phone: [facility] 09-28-2021 13:53-0400 Body temperature 97.59 [degF] Nehemias Ward MD Work Phone: [facility] 09-28-2021 13:53-0400 Body weight 86.55 kg Nehemias Ward MD Work Phone: [facility] 09-28-2021 13:53-0400 Diastolic blood pressure 70 mm[Hg] Nehemias Ward MD Work Phone: [facility] 09-28-2021 13:53-0400 Heart rate 65 /min Nehemias Ward MD Work Phone: [facility] 09-28-2021 13:53-0400 Respiratory rate 16 /min Nehemias Ward MD Work Phone: [facility] 09-28-2021 13:53-0400 SaO2% (BldA) [Mass fraction] 100 % Nehemias Ward MD Work Phone: [facility] 09-28-2021 13:53-0400 Systolic blood pressure 116 mm[Hg] Nehemias Ward MD Work Phone: [facility] 09-20-2021 08:45-0400 Diastolic blood pressure 68 mm[Hg] DO Blade House Work Phone: [facility] 09-20-2021 08:45-0400 Heart rate 68 /min DO Blade House Work Phone: [facility] 09-20-2021 08:45-0400 Respiratory rate 18 /min DO Blade House Work Phone: [facility] 09-20-2021 08:45-0400 SaO2% (BldA) [Mass fraction] 98 % DO Blade House Work Phone: [facility] 09-20-2021 08:45-0400 Systolic blood pressure 105 mm[Hg] DO Blade House Work Phone: [facility] 09-20-2021 06:49-0400 Body height 170.18 cm DO Blade House Work Phone: [facility] 09-20-2021 06:49-0400 Body mass index (BMI) [Ratio] 28.6 kg/m2 DO Blade Crews Work Phone: [facility] 09-20-2021 06:49-0400 Body temperature 98.5 [degF] DO Blade Crews Work Phone: [facility] 09-20-2021 06:49-0400 Body weight 83 kg DO Blade Crews Work Phone: [facility] 08-14-2021 13:40-0400 Body height 167.6 cm Nehemias Ward MD Work Phone: [facility] 08-14-2021 13:40-0400 Body temperature 97.11 [degF] Nehemias Ward MD Work Phone: [facility] 08-14-2021 13:40-0400 Body weight 88.72 kg Nehemias Ward MD Work Phone: [facility] 08-14-2021 13:40-0400 Diastolic blood pressure 57 mm[Hg] Nehemias Ward MD Work Phone: [facility] 08-14-2021 13:40-0400 Heart rate 65 /min Nehemias Ward MD Work Phone: [facility] 08-14-2021 13:40-0400 Respiratory rate 16 /min Nehemias Ward MD Work Phone: [facility] 08-14-2021 13:40-0400 SaO2% (BldA) [Mass fraction] 92 % Nehemias Ward MD Work Phone: [facility] 08-14-2021 13:40-0400 Systolic blood pressure 115 mm[Hg] Nehemias Ward MD Work Phone: [facility] 06-27-2021 13:43-0500 Body height 170.18 cm DO Blade Crews Work Phone: [facility] 06-27-2021 13:43-0500 Body mass index (BMI) [Ratio] 31 kg/m2 DO lBade Crews Work Phone: [facility] 06-27-2021 13:43-0500 Body weight 89.81 kg DO Blade Crews Work Phone: [facility] Encounters Encounter Date Encounter Type Care Provider Facility Start: 06-22-2024 ambulatory DO BLADE CREWS Faci lity:[facility] Start: 06-22-2024 ambulatory BLADE CREWS Facilit y:[facility] Start: 05-31-2024 End: 05-31-2024 Emergency department patient visit BLADE CREWS [facility] Start: 04-01-2024 ambulatory BLADE CREWS Facilit y:[facility] Start: 03-24-2024 ambulatory BLADE CREWS Facilit y:[facility] Start: 02-14-2024 End: 02-15-2024 Emergency department patient visit BLADE Soriano [facility] Start: 12-10-2023 End: 12-10-2023 ambulatory RHANDA ADAM Not Available Start: 12-04-2023 End: 12-04-2023 ambulatory RHANDA ADAM Not Available Start: 11-05-2023 End: 11-05-2023 ambulatory CHRISTOPHER NEAL Not Available Start: 11-04-2023 End: 11-04-2023 ambulatory RHANDA ADAM Not Available Start: 10-22-2023 End: 10-22-2023 ambulatory ALEX D BEJ Not Available Start: 10-22-2023 End: 10-22-2023 ambulatory ALEX D BEJ Not Available Start: 10-21-2023 End: 10-21-2023 ambulatory RHANDA ADAM Not Available Start: 10-18-2023 End: 10-20-2023 Emergency department patient visit PATIENCE OROZCO [facility] Start: 10-15-2023 End: 10-15-2023 ambulatory RHANDA ADAM Not Available Start: 08-27-2023 End: 08-27-2023 ambulatory CHRISTOPHER HALASY Not Available Start: 01-08-2023 End: 01-09-2023 ambulatory AMELIE ESPARZA Facility:[facility] Start: 01-08-2023 End: 01-08-2023 Patient encounter procedure AMELIE ESPARZA [facility] Start: 11-13-2022 End: 11-14-2022 ambulatory Constantino MARTINEZ Facility:CD:[id number] Start: 10-30-2022 End: 10-31-2022 ambulatory AMELIE ESPARZA Facility:[facility] Start: 10-30-2022 End: 10-30-2022 Patient encounter procedure AMELIE ESPARZA [facility] Start: 05-30-2022 End: 05-30-[address] INGRID DE LOS SANTOS Facility:[facility] Start: 05-30-2022 End: 05-31-[address] INGRID DE LOS SANTOS Facility:[facility] Start: 05-27-2022 End: 05-27-[address] BLADE CREWS Facility:[facility] Start: 05-10-2022 End: 05-11-[address] BLADE CREWS Facility:[facility] Start: 02-26-2022 End: 02-27-[address] BLADE CREWS Facility:[facility] Start: 02-26-2022 Encounter for preprocedural laboratory examination DR INGRID DE LOS SANTOS [facility] Start: 02-25-2022 End: 02-25-[address] BLADE CREWS Facility:[facility] Start: 02-16-2022 Encounter for preprocedural laboratory examination DR INGRID DE LOS SANTOS [facility] Start: 02-15-2022 End: 02-16-2022 ambulatory Constantino MARTINEZ Facility:CD:[id number] Start: 02-15-2022 End: 02-19-2022 Evaluation and management of inpatient DR INGRID DE LOS SATNOS Facility:[facility] Start: 02-12-2022 End: 02-13-[address] INGRID DE LOS SANTOS Facility:[facility] Start: 02-12-2022 End: 02-13-2022 Encounter for preprocedural laboratory examination DR INGRID DE LOS SANTOS Facility:[facility] Start: 02-07-2022 ambulatory AMELIE ESPARZA Facility :[facility] Start: 01-30-2022 Encounter for other preprocedural examination DR INGRID DE LOS SANTOS [facility] Start: 01-29-2022 End: 01-30-[address] [...] type (Primary Dx) Start: 09-29-2021 Telephone encounter Nehemias Ward MD Work Phone: Hematology/Oncology Comment on above: Results Start: 09-28-2021 End: 09-28-2021 ambulatory Nehemias Ward MD Work Phone: Hematology/Oncology Comment on above: Iron deficiency anem ia, unspecified iron deficiency anemia type (Primary Dx); Easy bruisability Start: 09-28-2021 End: 09-28-2021 Patient encounter procedure Nehemias Ward MD Work Phone: [facility] Start: 09-20-2021 End: 09-20-2021 Admission to same day surgery center [facility] Work Phone: [facility] Start: 09-15-2021 End: 09-15-2021 Patient encounter procedure DO Blade Crews Work Phone: [facility] Start: 08-14-2021 End: 08-14-2021 ambulatory Nehemias Ward MD Work Phone: Hematology/Oncology Comment on above: Iron deficiency anem ia, unspecified iron deficiency anemia type (Primary Dx) Start: 08-14-2021 End: 08-14-2021 Patient encounter procedure Nehemias Ward MD Work Phone: [facility] Start: 06-28-2021 End: 06-28-2021 Departed Referred DO Blade Crews Work Phone: [facility] Start: 06-26-2021 End: 06-26-2021 Patient encounter procedure DO Blade Crews Work Phone: [facility] Start: 05-24-2021 Chart abstracting Nehemias guevara MD Work Phone: Hematology/Oncology Start: 10-22-2019 End: 10-25-2019 Patient encounter procedure ALEX LITTLE [facility] Start: 10-22-2019 End: 10-24-2019 Subsequent hospital visit by physician Page Mri Rm 1 [facility] MRI Comment on above: Intractable epilepsy without [...] 10-06-2021 Blood count complete auto&auto difrntl wbc Nehemias Ward MD Work Phone: Start: 09-28-2021 Adult depression screening assessment Nehemias Ward MD Work Phone: Start: 09-20-2021 Esophagogastroduodenoscopy DO Blade Ho use Work Phone: Start: 06-26-2021 Adult depression screening assessment Nehemias Ward MD Work Phone: Start: 10-22-2019 Mri brain brain stem w/o w/contrast material ALEX BEJ Start: 10-22-2019 Mri brain brain stem w/o w/contrast material Alex D Bej Work Phone: Plan of Treatment Date Care Activity Detail Author Start: 09-28-2022 Adult depression screening assessment DEPRESSION SCREENING [facility] Start: 06-26-2022 Adult depression screening assessment DEPRESSION SCREENING [facility] Start: 12-21-2021 Influenza vaccination [facility] Start: 09-28-2021 End: 11-28-2021 CBC W Auto Differential panel - Blood CBC + DIFF Lab Routine Iron deficiency anemia, unspecified iron deficiency anemia type Expected: 09/28/2021, Expires: 11/28/2021 [facility] Work Phone: Comment on above: Expected: 09/28/2021, Expires: 2 Start: 09-28-2021 End: 11-28-2021 FERRITIN BLD FERRITIN BLD Lab Routine Iron deficiency anemia, unspecified iron deficiency anemia type Expected: 09/28/2021, Expires: 11/28/2021 [facility] Work Phone: Comment on above: Expected: 09/28/2021, Expires: 2 Start: 09-28-2021 End: 11-28-2021 IRON + TIBC IRON + TIBC Lab Routine Iron deficiency anemia, unspecified iron deficiency anemia type Expected: 09/28/2021, Expires: 11/28/2021 [facility] Work Phone: Comment on above: Expected: 09/28/2021, Expires: 2 Start: 08-14-2021 End: 10-14-2021 CBC W Auto Differential panel - Blood CBC + DIFF Lab Routine Iron deficiency anemia, unspecified iron deficiency anemia type Expected: 08/14/2021, Expires: 10/14/2021 [facility] Work Phone: Comment on above: Expected: 08/14/2021, Expires: 2 Start: 08-14-2021 End: 10-14-2021 FERRITIN BLD FERRITIN BLD Lab Routine Iron deficiency anemia, unspecified iron deficiency anemia type Expected: 08/14/2021, Expires: 10/14/2021 [facility] Work Phone: Comment on above: Expected: 08/14/2021, Expires: 2 Start: 08-14-2021 End: 10-14-2021 IRON + TIBC IRON + TIBC Lab Routine Iron deficiency anemia, unspecified iron deficiency anemia type Expected: 08/14/2021, Expires: 10/14/2021 [facility] Work Phone: Comment on above: Expected: 08/14/2021, Expires: 2 Start: 08-14-2021 End: 10-14-2021 RETIC COUNT RETIC COUNT Lab Routine Iron deficiency anemia, unspecified iron deficiency anemia type Expected: 08/14/2021, Expires: 10/14/2021 [facility] Work Phone: Comment on above: Expected: 08/14/2021, Expires: 2 Start: 06-28-2021 Esophagogastroduodenoscopy DH EGD/Colonoscopy (Not Applicable) [facility] Start: 12-21-2020 Influenza vaccination INFLUENZA (#1) [facility] Start: 12-22-2019 Influenza vaccination Flu vaccine (#1) [place], [place] Start: 2018 Lipid panel Lipid screen [place], [place] Start: 2018 Mammography MAMMOGRAM [facility] Start: 2008 HPV TESTING HPV TESTING [facility] Start: 1999 PAP TESTING PAP TESTING [facility] Start: 1999 Screening for malignant neoplasm of cervix Cervical cancer screen [place], [place] Start: 1997 DTaP/Tdap/Td vaccine (1 - Tdap) DTaP/Tdap/Td vaccine (1 - Tdap) [place], [place] Start: 1997 Urine microalbumin profile DTAP,TDAP,TD (1 - Tdap) [facility] Start: 1996 HEPATITIS C SCREENING HEPATITIS C SCREENING [facility] Start: 1996 HIV SCREENING HIV SCREENING [facility] Start: 1993 HIV screening HIV screen [place], [place] Start: 1990 Adult depression screening assessment DEPRESSION SCREENING [facility] Start: 1983 COVID-19 VACCINE (#1) COVID-19 VACCINE (#1) [facility] Start: 1983 COVID-19 VACCINE (1) COVID-19 VACCINE (1) [facility] Start: 1978 COVID-19 VACCINE (#1) COVID-19 VACCINE (#1) [facility] Ferritin [Mass/volum e] in Serum or Plasma FERRITIN BLD Lab Routine Iron deficiency anemia, unspecified iron deficiency anemia type 10/06/2021 1:31 PM EDT [facility] Work Phone: Iron and Iron bindin g capacity panel - Serum or Plasma IRON + TIBC Lab Routine Iron deficiency anemia, unspecified iron deficiency anemia type 10/06/2021 1:31 PM EDT [facility] Work Phone: [facility] Immunizations Immunization Date Immunization Notes Care Provider Fa [facility] 02-16-2019 influenza, injectabl e, quadrivalent, preservative free Nehemias Ward MD Work Phone: [facility] 12-31-2017 influenza, injectabl e, quadrivalent, preservative free Nehemias Ward MD Work Phone: [facility] Payers Date Payer Category Payer Self-pay [id number] 2014 Unknown [facility] xxxxxxxxxxxx 2014-Present [phone] [address] [place] [address] xxxxxxxxxxxx [id number] 2002 Medicaid [place] [employer] [place] [employer] [id number] 2002-Present [phone] [address] [place] [address] Medicaid [id number] 1978 Unknown [id number] 2.16.840.1.780310.3.579.2.175 1978 Unknown [id number] 2.16.840.1.745362.3.579.2.593 1978 Unknown [id number] 2.16.840.1.681649.3.579.2.593 1978 Unknown [id number] 2.16.840.1.202462.3.579.2.593 1978 Unknown [id number] 2.16.840.1.276300.3.579.2.593 1978 Unknown [id number] 2.16.840.1.148159.3.579.2.593 1978 Unknown [id number] 2.16.840.1.575214.3.579.2.593 1978 Unknown [id number] 2.16.840.1.919845.3.579.2.593 1978 Unknown [id number] 2.16.840.1.587732.3.579.2.593 1978 Unknown [id number] 2.16.840.1.175802.3.579.2.593 1978 Unknown [id number] 2.16.840.1.850189.3.579.2.593 1978 Unknown [id number] 2.16.840.1.091256.3.579.2.593 1978 Unknown [id number] 2.16.840.1.268274.3.579.2.593 1978 Unknown [id number] 2.16.840.1.464121.3.579.2.593 1978 Unknown [id number] 2.16.840.1.385182.3.579.2.593 1978 Unknown [id number] 2.16.840.1.216075.3.579.2.593 1978 Unknown [id number] 2.16.840.1.670729.3.579.2.727 1978 Unknown [id number] 2.16.840.1.753503.3.579.2.727 1978 Unknown [id number] 2.16.840.1.070677.3.579.2.727 1978 Unknown [id number] 2.16.840.1.425870.3.579.2.727 1978 Unknown [id number] 2.16.840.1.923826.3.579.2.125 9 1978 Unknown [id number] 2.16.840.1.985583.3.579.2.125 9 1978 Unknown [id number] 2.16.840.1.869649.3.579.2.125 9 1978 Unknown [id number] 2.16.840.1.772546.3.579.2.125 9 1978 Unknown [id number] 2.16.840.1.652843.3.579.2.125 9 1978 Unknown [id number] 2.16.840.1.725940.3.579.2.125 9 1978 Unknown [id number] 2.16.840.1.667408.3.579.2.125 9 1978 Unknown [id number] 2.16.840.1.673224.3.579.2.125 9 1978 Unknown [id number] 9 1980 Unknown [id number] 9 1980 Unknown [id number] 6 1978 Unknown [id number] [id number] 6 1978 Unknown [id number] [id number] 6 1978 Unknown [id number] 2.16.840.1.652357.3.579.2.128 6 1978 Unknown [id number] [id number] 1978 Unknown [id number] [id number] 1978 Unknown [id number] [id number] 1978 Unknown [id number] 1959 Unknown [id number] Social History Date Type Detail Facility Tobacco smoking status NCIS Unknown if ever smoked [place], [place] Start: 1980 Sex Assigned At Not on file [place], [place] Tobacco smoking status NCIS Tobacco smoking consumption unknown [facility] Start: 05-29-2021 Tobacco smoking status NCIS Occasional tobacco smoker [facility] Start: 05-29-2021 End: 09-28-2021 Tobacco use and exposure Smokeless tobacco non-user [facility] Start: 08-14-2021 End: 11-10-2021 Alcohol intake Current drinker of alcohol (finding) [facility] Start: 08-14-2021 End: 11-10-2021 Alcohol intake [facility] Start: 05-29-2021 History SDOH Alcohol Comment socially [facility] Start: 08-04-2021 End: 11-10-2021 Exposure to SARS-CoV-2 (event) Not sure [facility] Start: 1980 Sex Assigned At Female F [facility] Start: 09-28-2021 End: 01-08-2023 Tobacco smoking status NHIS Ex-smoker [facility] Sex Assigned At Female [facility] Goals Date Patient Goal Desired Activity /State Functional Status Date Assessment Result Facility 01-08-2023 Functional Status N/A [facility] 10-30-2022 Functional Status N/A [facility] Clinical Notes 05-29-2021 to 01-08-2023 Telephone Encounter - Jian De La Cruz RN - 11/14/2021 3:15 PM EDTTelephone Encounter - Jian De La Cruz RN - 11/14/2021 3:15 PM EDTTelephone Encounter - Vika [facility] - 10/06/2021 1:13 PM EDT Note [...] provider. Document Revised: 08/17/2021 Document Reviewed: 08/17/2021 [employer] Patient Education 2022 [employer]. Follow Up Care 10/30/2022 11:37:59 With:AMLEIE ESPARZA PA-C, URL Address: [address] [place] [address]. [place] [address] When: Unknown Comments:PRN [facility] 10-30-[address] 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 Measure Post Void residual urine and/or bladder capacity by US- non-imaging 07151 Follow-up With When Contact Information AMELIE ESPARZA PA-C, URL In 8 weeks [address] [place] [address] Additional Instructions: after Cysto w/ Dr. Martinez Patient Education Cystoscopy Documentation recorded by the scribe Lamar Estrada accurately reflects the services(s) I performed and decisions made by me. Authentic (more content not included)... [facility] Comment on above: Result Comment: Elec tronically Signed By: AMELIE ESPARZA PA-C\.br\Date and Time Signed: 10/30/22 12:34 EDT\.br\Electronically Co-Signed By: Lamar Estrada\.br\Date and Time Co-Signed: 10/30/22 11:29 EDT 10-30-2022 Hospital Discharg e instructions Patient Education 10/30/2022 [...] including vitamins, herbs, eye drops, creams, and pxiq-fdx-flitley medicines. Any problems you or family members [...] provider tells you to take them. Taking cdps-nts-zxpgxxr medicines, vitamins, herbs, and supplements. Tests You [...] Follow these instructions at home: Medicines Take bbgw-ebg-utwqtdp and prescription medicines only as told by [...] provider. Document Revised: 12/20/2021 Document Reviewed: 11/18/2020 [employer] Patient Education 2022 [employer]. Follow Up Care 08/31/2022 13:02:06 With:AMELIE ESPARZA PA-C, URL Address: [address] [place] [address] When:Within 8 Week(s) Comments:after Cysto w/ Dr. Martinez [facility] 10-30-2022 Note Urology Cystoscopy Cystoscopy is [...] including vitamins, herbs, eye drops, creams, and paqd-kbh-ywzther medicines. ? Any problems you or family [...] tells you to take them. ? Taking uqsy-brs-zqanfsi medicines, vitamins, herbs, and supplements. Tests You [...] these instructions at home: Medicines ? Take qcbm-hzo-wfzamxy and prescription medicines only as told by [...] the department th (more content not included)... [facility] 11-14-2021 Miscellaneous Notes Informed pt of Dr Ward's message. Pt verbalized understanding and denies further needs at this time. Jian De La Cruz RN ----- Message from Alina Barros RN sent at 11/13/2021 1:26 PM EDT ----- ----- Message ----- From: Nehemias Ward MD Sent: 11/11/2021 6:10 AM EDT To: Alina Barros RN [facility]. Can you please call pt and let her know that the iron profile is normal? No change in the recommendation. MAKENZIE Toribio documented in this encounter [facility] 11-10-2021 Note HNO ID: [id number] Author: Nehemias Ward MD Service: ? Author Type: Physician [...] levels despite adequate oral iron) INTERVAL HISTORY: Nele comes back for a follow up. Since [...] provide more details. She was born in [place] and has lived in [place] in the past. She reports occasional smoking - cigars that are dipped in cognac - last use a month back. Occasional alcohol use. No other substance abuse reported. She lives with her with 5 children. She is not working now but used to work at [employer] (was laid off during ). MEDICATIONS AND [...] us in 6-8 weeks for repeat labs. Nehemias Ward MD I spent a total of 25 minutes on the date of the service which included preparing to see the patient, pcph-yk-soyo patient care, completing clinical documentation, obtaining and/or reviewing separately obtained history, performing a medically appropriate examination, counseling and educating the patient/family/caregiver, ordering medications, tests, or procedures, independently interpreting results (not separately reported) and communicating results to the patient/family/caregiver. CC: Blade Crews Sr. [facility] 10-06-2021 Miscellaneous Notes 1st report of treatment-Non oncology regimen (Monoferric) Patient has [place] Medicaid therefore no FA is required documented in this encounter [facility] 09-29-2021 Miscellaneous Notes Patient has been [...] weeks for repeat assessment with labs. Thanks Nehemias Ward MD documented in this encounter [facility] 09-28-2021 Note HNO ID: [id number] Author: Nehemias Ward MD Service: ? Author Type: Physician [...] provide more details. She was born in [place] and has lived in [place] in the past. She reports occasional smoking - cigars that are dipped in cognac - last use a month back. Occasional alcohol use. No other substance abuse reported. She lives with her with 5 children. She is not working now but used to work at [employer] (was laid off during -). MEDICATIONS AND [...] up in 3 months with repeat labs Nehemias Ward MD I spent a total of 20 minutes on the date of the service which included preparing to see the patient, vodc-nf-xppy patient care, completing clinical documentation, obtaining and/or reviewing separately obtained history, performing a medically appropriate examination, counseling and educating the patient/family/caregiver, ordering medications, tests, or procedures, independently interpreting results (not separately reported) and communicating results to the patient/family/caregiver. CC: Blade Crews Sr. [facility] 09-28-2021 History of Presen t [...] provide more details. She was born in [place] and has lived in [place] in the past. She reports occasional smoking - cigars that are dipped in cognac - last use a month back. Occasional alcohol use. No other substance abuse reported. She lives with her with 5 children. She is not working now but used to work at [employer] (was laid off during COVID-). MEDICATIONS AND [...] up in 3 months with repeat labs Nehemias Ward MD I spent a total of 20 minutes on the date of the service which included preparing to see the patient, cedp-ax-aevn patient care, completing clinical documentation, obtaining and/or reviewing separately obtained history, performing a medically appropriate examination, counseling and educating the patient/family/caregiver, ordering medications, tests, or procedures, independently interpreting results (not separately reported) and communicating results to the patient/family/caregiver. CC: Blade Crews Sr. documented in this encounter [facility] 09-20-2021 Procedure note [facility] 08-14-2021 Note HNO ID: [id number] Author: Nehemias Ward MD Service: ? Author Type: Physician [...] provide more details. She was born in [place] and has lived in [place] in the past. She reports occasional smoking - cigars that are dipped in cognac - last use a month back. Occasional alcohol use. No other substance abuse reported. She lives with her with 5 children. She is not working now but used to work at [employer] (was laid off during ID-). MEDICATIONS AND [...] up in 6 weeks with labs prior. Nehemias Ward MD I spent a total of 15 minutes on the date of the service which included preparing to see the patient, zymc-pk-nbpt patient care, completing clinical documentation, obtaining and/or reviewing separately obtained history, performing a medically appropriate examination, counseling and educating the patient/family/caregiver, ordering medications, tests, or procedures, independently interpreting results (not separately reported) and communicating results to the patient/family/caregiver. CC: Blade Crews Sr. [facility] 08-14-2021 History of Presen t [...] provide more details. She was born in [place] and has lived in [place] in the past. She reports occasional smoking - cigars that are dipped in cognac - last use a month back. Occasional alcohol use. No other substance abuse reported. She lives with her with 5 children. She is not working now but used to work at [employer] (was laid off during COVID-19). MEDICATIONS AND [...] up in 6 weeks with labs prior. Nehemias Ward MD I spent a total of 15 minutes on the date of the service which included preparing to see the patient, lfxk-bn-qpae patient care, completing clinical documentation, obtaining and/or reviewing separately obtained history, performing a medically appropriate examination, counseling and educating the patient/family/caregiver, ordering medications, tests, or procedures, independently interpreting results (not separately reported) and communicating results to the patient/family/caregiver. CC: Blade Crews Sr. documented in this encounter [facility] 06-26-2021 Note HNO ID: [id number] Author: Nehemias Ward MD Service: ? Author Type: Physician [...] provide more details. She was born in [place] and has lived in [place] in the past. She reports occasional smoking - cigars that are dipped in cognac - last use a month back. Occasional alcohol use. No other substance abuse reported. She lives with her with 5 children. She is not working now but used to work at [employer] (was laid off during -). MEDICATIONS AND [...] Follow up in 6 weeks with labs. Nehemias Ward MD I spent a total of 16 minutes on the date of the service which included preparing to see the patient, tuhp-gy-hobr patient care, completing clinical documentation, obtaining and/or reviewing separately obtained history, performing a medically appropriate examination, counseling and educating the patient/family/caregiver, ordering medications, tests, or procedures, independently interpreting results (not separately reported) and communicating results to the patient/family/caregiver. CC: Blade Crews Sr. [facility] 05-29-2021 Note HNO ID: [id number] Author: Nehemias Ward MD Service: ? Author Type: Physician [...] provide more details. She was born in [place] and has lived in [place] in the past. She reports occasional smoking - cigars that are dipped in cognac - last use a month back. Occasional alcohol use. No other substance abuse reported. She lives with her with 5 children. She is not working now but used to work at [employer] (was laid off during ). MEDICATIONS AND [...] 5 weeks to review above testing results. Nehemias Ward MD I spent a total of 50 minutes on the date of the service which included preparing to see the patient, issm-az-ewno patient care, completing clinical documentation, obtaining and/or reviewing separately obtained history, performing a medically appropriate examination, counseling and educating the patient/family/caregiver, ordering medications, tests, or procedures, independently interpreting results (not separately reported) and communicating results to the patient/family/caregiver. CC: Blade Crews Sr. [facility] Evaluation + Plan note Future Appointments Appointment Date:01/08/2023 03:00:00 PM Scheduled Provider:AMELIE ESPARZA PA-C [facility] Appointment Type:URO Office Visit [facility] Evaluation note Diagnosis Iron deficiency anemia, unspecified iron deficiency anemia type- Primary [facility] available[facility] [place] Work Phone: [facility] note* Diagnosis Iron deficiency anemia, unspecified iron deficiency anemia type- Primary Easy bruisability Other symptoms involving skin and integumentary tissues [facility] Iron deficiency anemia, unspecified iron deficiency anemia type [facility] Diagnosis Onset Date Resolution Status Iron deficiency anemia acute [facility] Work Phone: Evaluation note* Diagnosis Iron deficiency anemia, unspecified iron deficiency anemia type- Primary [facility] Author Bryan Quiros [facility] September 20, 2021 7:58am Note Date/Time September 20, 2021 7:54a m [facility] [address] [place] [address] Gastroenterology H&P Signed Patient: Neel Garcia MR#: [id number] : 1980 Acct:[id number] Age/Sex: 41 / F Adm Date: 2 Loc: Room: Type: [facility] Attending Dr: Bryan Quiros DO Copies [...] by Bryan Quiros Jr, DO> 09/20/21 0758 [facility] [place] Work Phone: Hospital course Narrative No data available for this section [facility] progress note No data available for this section [facility] Reason for Referral Status Reason Specialty Diagnoses / Procedures Referre d By Contact Referred To Contact Open Radiology Diagnoses Intractable epilepsy without status epilepticus, unspecified epilepsy type (HCC) Procedures MRI BRAIN W WO CONTRAST Alex Little MD [address] [facility] [address] [place] [address] Assessments Diagnosis Intractable epilepsy without status epilepticus, unspecified epilepsy type (HCC) Advance Directives No Advanced Directives Records FoundDocuments on File Type Date Recorded 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 EXP 2200 10/05/21 TV 120 mL EXP: (8 HR) New Bag/Syringe/Bottle 10/06/2021 2:20 PM EDT 1,000 mg Additional Source Comments Reason for Visit (unrecogniz ed section and content) Status Reason Specialty Diagnoses / Procedures Referre d By Contact Referred To Contact Closed Radiology Diagnoses Epilepsy, unspecified, not intractable, without status epilepticus Procedures MRI-BRAIN WO & W CONTRAST Anabel, Alex Harris MD [address] [place] [address] [facility] [address] [place] [address] Reason Comments Anemia 1 month follow up Reason Comments Anemia Reason Comments Results Reason Comments Benefits Investigation Specialty Diagnoses / Procedures Referred By Contac t Referred To Contact Diagnoses Iron deficiency anemia, unspecified iron deficiency anemia type Procedures INJECTION, FERRIC DERISOMALTOSE, 10 MG Nehemias Ward MD [address] [address] Obi Treat Tara [address] [facility] [address] Referral ID Status Reason Start Date Expiration Date V isits Requested Visits Authorized [id number] Authorized 09/29/2021 01/02/2022 1 1 INFORMATION SOURCE (unrecogn ized section and content) DATE CREATED AUTHOR 11/12/2019 [facility] DATE CREATED AUTHOR AUTHOR'S ORGANIZ ATION 09/24/2021 [facility] DATE CREATED AUTHOR AUTHOR'S ORGANIZ ATION 11/16/2021 [facility] DATE CREATED AUTHOR AUTHOR'S ORGANIZ ATION 06/05/2022 [facility] DATE CREATED AUTHOR AUTHOR'S ORGANIZ ATION 01/09/2023 [facility] DATE CREATED AUTHOR AUTHOR'S ORGANIZ ATION 12/12/2023 [facility] DATE CREATED AUTHOR AUTHOR'S ORGANIZ ATION 06/01/2024 [facility] DATE CREATED AUTHOR AUTHOR'S ORGANIZ ATION 06/29/2024 [facility] l Source Comments (unrecognize d section and content) In the event this informatio n is protected by the Federal Confidentiality of Alcohol and Drug Abuse Patient Records regulations: The Federal rules restrict any use of the information to criminally investigate or prosecute any alcohol or drug abuse patient.[facility] the event this information is protected by the Federal Confidentiality of Alcohol and Drug Abuse Patient Records regulations: The Federal rules restrict any use of the information to criminally investigate or prosecute any alcohol or drug abuse patient.[facility] the event this information is protected by the Federal Confidentiality of Alcohol and Drug Abuse Patient Records regulations: The Federal rules restrict any use of the information to criminally investigate or prosecute any alcohol or drug abuse patient.[facility] the event this information is protected by the Federal Confidentiality of Alcohol and Drug Abuse Patient Records regulations: The Federal rules restrict any use of the information to criminally investigate or prosecute any alcohol or drug abuse patient.[facility] the event this information is protected by the Federal Confidentiality of Alcohol and Drug Abuse Patient Records regulations: The Federal rules restrict any use of the information to criminally investigate or prosecute any alcohol or drug abuse patient.[facility] the event this information is protected by the Federal Confidentiality of Alcohol and Drug Abuse Patient Records regulations: The Federal rules restrict any use of the information to criminally investigate or prosecute any alcohol or drug abuse patient.[facility] the event this information is protected by the Federal Confidentiality of Alcohol and Drug Abuse Patient Records regulations: The Federal rules restrict any use of the information to criminally investigate or prosecute any alcohol or drug abuse patient.[facility] Care Teams (unrecognized sec tion and content) Associate Genetics Professor Relationship Specialty Start Date End Date Evangelista [place]iah [place] [id number] Referring SOLAR INSTALLER 07/29/18 Associate Genetics Professor Relationship Specialty Start Date End Date Blade Crewsashvin Ballesteros [address] [place] [address] PCP - General Family Practice 05/29/21 Isiah Evangelista [address] [place] [address] Referring SOLAR INSTALLER 07/29/18 Team Status: Inactive Member Role Status Dates Blade Crews DO Primary Care Provider Active Bryan Quiros DO Attending Provider Active Team Status: Active Member Role Status Dates Blade Crews DO Primary Care Provider Active Associate Genetics Professor Relationship Specialty Start Date End Date Eleonora Blade Massimo Emerson. [address] [place] [address] PCP - General Family Practice 05/29/21 Isiah Evangel[address] [place] [address] Referring SOLAR INSTALLER 07/29/18 Associate Genetics Professor Relationship Specialty Start Date End Date Blade Crews Sr. [address] [place] [address] PCP - General Family Practice 05/29/21 Kevin Evangelistaa [address] [place] [address] Referring SOLAR INSTALLER 07/29/18 Associate Genetics Professor Relationship Specialty Start Date End Date Blade Crews Sr. [address] [place] [address] PCP - General Family Practice 05/29/21 Isiah [address] [place] [address] Referring SOLAR INSTALLER 07/29/18 Associate Genetics Professor Relationship Specialty Start Date End Date Blade Crews Sr. [address] [place] [address] PCP - General Family Practice 05/29/21 Kevin Evangelistaa [address] [place] [address] Referring SOLAR INSTALLER 07/29/18 Goals (unrecognized section and content) Goals [...] BE BASED ON THE PRIMARY CLINICAL RECORDS. [facility]. provides no warranty or guarantee of the accuracy or completeness of information in this document.
[2024-07-07] MEDS: TETRACAINE HCL 0.5% OP SOL 80 DROP/4 ML BOTTLE OP (12:17)
[2024-07-07] MEDS: FLUORESCEIN SODIUM 1 MG STRIP OP (12:17)
--- NOTE | 2024-07-07 12:35 | ED_ITS ---
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 and apparently yesterday at 8 PM she was at her work when she had a chemical splash in her face, at that time she did wash her face but not thoroughly and it was for only 1 time, the patient woke up this morning to noted that she had blurry vision in the right eye in addition to irritation and itching and increasing secretion, the patient also have some mild irritation in the left eye because he thinks it splashed in both eyes The patient denies any other concerns she does not have any history of contact lens use Related Data Home Medications ?Medication ?Instructions ?Recorded ?Confirmed escitalopram oxalate 10 mg tablet mg 09/21/23 hyoscyamine sulfate 0.375 mg mg PO 09/21/23 tablet,extended release,12 hr meloxicam 15 mg tablet mg 09/21/23 gabapentin 100 mg capsule mg 10/03/23 methocarbamol 500 mg tablet 500 mg PO TID 10/03/23 10/03/23 Previous Rx's ?Medication ?Instructions ?Recorded prednisone 20 mg tablet 40 mg (2 x 20 mg) PO DAILY 5 days 09/21/23 #10 tabs tizanidine 4 mg capsule 4 mg PO TID PRN muscle spasticity 09/21/23 7 days #21 caps tobramycin 0.3 % eye drops 2 drp ophthalmic (eye) Q4H #5 mL 07/07/24 Allergies Allergy/AdvReac Type Severity Reaction Status Date / Time No Known Drug Allergies Allergy Verified 07/07/24 11:04 Review of Systems ROS Status of ROS 10 or more systems reviewed and unremark able except as noted in history and below PFSH PFSH Social History Smoking status: Former smoker Little interest or pleasure in doing things: not at all Feeling down, depressed, or hopeless: not at all Exam Narrative Exam Narrative: Nurses notes and vital signs reviewed and patient is not hypoxic. General: Well-appearing and in no apparent distress. Skin: Warm, dry, no pallor noted. No rash. Head: Normocephalic, atraumatic. Neck: Supple, non-tender. Eye: There is obvious erythema and inflammation of the right eye more than the left eye, the patient is very sensitive to light, after applying tetracaine it was noted that the patient have conjunctival erythema bilaterally mostly in the lower eyelid, no hyphema no hypopyon, Constitutional Vital Signs, click to edit/add: Last Vital Signs Temp 98.2 F 07/07/24 11:04 Pulse 68 07/07/24 11:04 Resp 20 07/07/24 11:04 BP 134/68 07/07/24 11:04 Pulse Ox 98 07/07/24 11:04 Course Vital Signs Vital signs: Vital Signs Temperature 98.2 F 07/07/24 11:04 Pulse Rate 68 07/07/24 11:04 Respiratory Rate 20 07/07/24 11:04 Blood Pressure 134/68 07/07/24 11:04 Pulse Oximetry 98 07/07/24 11:04 Temperature 98.2 F 07/07/24 11:04 Pulse Rate 68 07/07/24 11:04 Respiratory Rate 20 07/07/24 11:04 Blood Pressure 134/68 07/07/24 11:04 Pulse Oximetry 98 07/07/24 11:04 MDM - Eye Problem MDM Narrative Medical decision making narrative: The patient had irrigation of both eyes with the Frank lens, Mostly 10 minutes to the right eye and less than that in the left eye after with measuring the pH to be adequate at 7 The patient case was discussed with poison control as well and they recommended that the patient have the irrigation in addition to ophthalmology evaluation Ophthalmology evaluation of the fluorescent light showed that the patient left eye examination was benign but the right eye examination showed that the patient had almost 1 mm ulcer just below the cornea at the right lower quadrant The patient case was discussed with and he wanted the patient to come to his office for evaluation right now The patient was sent over to be evaluated It was noted that the patient Tetaus status is not clear and in case of abrasion to the right eye or small burn to the right eye is not usually indicated but she was called to the office and instructed to make sure she deliver the message to the associate software application engineer that she did not her tetanus booster in case needed she will obtain it there in the office. Discharge Plan Discharge Chief Complaint: Eye Problems Clinical Impression: Alkaline chemical burn of right eye Patient Disposition: Home, Self-Care Time of Disposition Decision: 14:18 Condition: Good Mode of Transportation: Private Vehicle Prescriptions / Home Meds: New tobramycin 0.3 % drops 2 drp ophthalmic (eye) Q4H Qty: 5 0RF Rx Instructions: bilateral for 5 fays No Action meloxicam 15 mg tablet hyoscyamine sulfate 0.375 mg tablet extended release 12 hr PO escitalopram oxalate 10 mg tablet tizanidine 4 mg capsule 4 mg PO TID PRN (Reason: muscle spasticity) 7 Days Qty: 21 0RF prednisone 20 mg tablet 40 mg PO DAILY 5 Days Qty: 10 0RF methocarbamol 500 mg tablet 500 mg PO TID gabapentin 100 mg capsule Print Language: Icelandic Instructions: [facility] (ED) Referrals: Dr Georges Schultz [Other] - As soon as possible (please go now to the office ) YULIANA CREWS [Primary Care Provider] - 1 week Discharge Date/Time: 07/07/24 14:33
[2024-07-07] MEDS: TOBRAMYCIN 0.3% OP SOL 100 DROP/5 ML BOTTLE OP (12:36)
[2024-07-07] MEDS: 0.9 % SODIUM CHLORIDE 1,000 ML 999 ML IV (12:36)
[2024-07-07] MEDS: 0.9 % SODIUM CHLORIDE 500 ML 999 ML IV (12:37)
== END 2024-07-07 14:33 | disposition home or self-care (01) ==
PROVIDERS: Emergency Provider Emergency Medicine; PCP Family Medicine
DX: T54.3X1A Toxic effect of corrosive alkalis and alkali-like substances, accidental (unintentional), initial encounter (principal); T26.62XA Corrosion of cornea and conjunctival sac, left eye, initial encounter; Z87.891 Personal history of nicotine dependence
CPT/HCPCS: 99284

== ENCOUNTER 2024-09-29 10:23 | Outpatient (OUT) | payer OTHER, SELFPAY ==
--- OUTSIDE RECORDS SUMMARY | 2024-09-29 10:46 | XMS_ITS | CCD ---
Author Organization [facility] ion Partnership [facility] Care Team Providers Care Tree Expert Name Role Phone House, Sr Blade Soriano Primary Care Provider ALEX LITTLE Referring Unavailable COST, SR BLADE Soriano Primary Care Unavailable Isiah Evangelista Unavailable [place] Blade Ballesteros Primary Care Provider DO Blade Crews Primary Care Provider DO Bryan Quiros Attending Provider [phone] ELEONORA, DR BRIDGES Primary Care Unavailable KARASIK, DR QUINTERO Admitting Unavailable KARASIK, DR QUINTERO Attending Unavailable KARASIK, DR QUINTERO Admitting Unavailable KARASIK, DR QUINTERO Consulting Unavailable HOUSE, DR BRIDGES Primary Care Unavailable KARASIK, DR QUINTERO Attending Unavailable MORGOSKIRIT Consulting Unavailable DIDIER, HANS Consulting Unavailable ELEONORA, DR BRIDGES Primary Care Unavailable HAY, DR [...] Unavailable ELEONORA, DR BRIDGES Primary Care Unavailable RUSSELL, DR ALEX Kemp Consulting Unavailable MAGALI RING [...] KARASIK, DR QUINTERO Attending Unavailable HOUSE, DR BRIDEGS Primary Care Unavailable HOUSE, DR BRIDGES Primary Care Unavailable RUSSELL, DR ALEX Kemp Admitting Unavailable RUSSELL, DR ALEX Kemp Consulting Unavailable RUSSELL, DR ALEX Kemp Attending Unavailable WEST, DR BRYAN Lawler Consulting Unavailable KARASIK, DR QUINTERO Admitting Unavailable MARTINEZ, DR HAND Consulting Unavailable HOUSE, DR BRIDGES Primary Care Unavailable KARASIK, DR QUINTERO Attending Unavailable KARASIK, DR QUINTERO Consulting Unavailable KARASIK, DR QUINTERO Procedure Practitioner Unava ilable DREIKORN, GIOVANNA Consulting Unavailable MARTINEZ, DR HAND Procedure Practitioner Unavai swetha CALDERON, MONI Consulting Unavailable Blade Crews Primary Care Physician AMELIE ESPARZA Attending Unavailable AMELIE ESPARZA Attending Unavailable Ingrid DE LOS SANTOS Referring Unavailable Constantino MARTINEZ Attending Unavailable Constantino MARTINEZ Attending Unavailable HALASYRICO Attending Unavailable ADAM, RHPOP Attending Unavailable HALASY, RICO Referring Unavailable ADAM, RHANDA Attending Unavailable BEALEX Botello Attending Unavailable ALEX LITTLE Referring Unavailable ADAM, RHANDA Attending Unavailable RICO DE JESUS Attending Unavailable DMAARIS GUO Referring Unavailable ADAM, RHPOP Attending Unavailable ADAM, JOSTIN Attending Unavailable BLADE CREWS Primary Care Unavailable PATIENCE OROZCO Attending Unavailable PATIENCE OROZCO Attending Unavailable PATIENCE OROZCO Referring Unavailable HOUSE, BLADE P Primary Care Unavailable HOUSE, BLADE P Primary Care Unavailable CLARY, SOPHIE Garces Attending Unavailable HOUSE, BLADE P Primary Care Unavailable RACHELE VICKERS Attending Unavailable HOUSE, BLADE P Primary Care Unavailable HOUSE, DO BLADE P Attending Unavailable HOUSE, BLADE P Primary Care Unavailable HOUSE, DO BLADE P Attending Unavailable HOUSE, BLADE P Primary Care Unavailable HOUSE, DO BLADE P Attending Unavailable HOUSE, DO BLADE P Attending Unavailable HOUSE, DO BLADE P Admitting Unavailable HOUSE, BLADE P Primary Care Unavailable [...] Ordered Start: 05-23-2021 take 1 capsule by [facility] twice daily topiramate XR (QUDEXY XR) 50 [...] # 2 tab(s), Refills(s) 0, Pharmacy: [facility]/pharmacy #[id number], 170, cm, 10/30/22 10:53:00 EDT, Height/Length [...] 10-12-2021 Episodic Other aftercare (1 source) 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; Translations: [OTH BACK SIZER CURRENT DRUG THERAPY] Onset: 05-28-2022 Episodic Other [...] (1 source) Abdominal pain; back pain Onset: 06-28-2024 Viral infection (2 sources) Genital herpes simplex [...] Coding Summaryon 06-27-2024 Coding Summary HTMLBase 64 YagtoljtKEo3zBh+PGhl YWQ+FW2WUQRnU63brLIf pE7vW8NEELaEKqtrRJYJ TLqNCsCsjiXdCX4smCTm ZXJu IC8+YB1uGFBzWowfdWSz c3U0yGM0C60gnp4bXYfy xVV0HPViAkTzyajlf6gw dIb6TBhqTvogQoLf IPOlnS97DYF5zD70Ok89 pVVaiDUet8zvgJy1YtVu NACtZOW1cRhuHLhbv1De DGXkG42qdJLhk9Y0 IGNvbGxhcHNlOyBlbXB0 vI4mBTpxhxgxe4yagjcj Khi5yl39jKQnc5T8yIB0 H0UmsiD9ARWinGKo ByznpSKSyW7rntrew9oa axlqBrHgWOOqLPr1TEy6 FDNvlBykQgNwPI08QLY5 DLKtwjTbJ5EgYBDi dEbhDdK2b9D1Bb9SV3SF ShjoH1OSOTLBHPwffVV+ FD36sd45B1RzMihlRia4 MZOvVRD0yFX7jB1w TZAtYQmfu4I3vLL3B0Bk dcQuye4mo9dnCWGuUMnb V67tgCVqw7Q5AIXmxCU1 ZTWxcIxzTgAuzB86 Oyc+LYNviBadf7SsSfjn q7trs6wciSl0UyvbLESk vdJllMmiLQO4z6WzUf8j REDkqOF1hHT9fI8r GuKbNzZ7BSjaH623KeHr yTTuAxtlX06aM0TneMH+ JNXbXus1YKLlrXkbMY9i F7EyNMEvpsrboYOj cRzlVX3mDXOpfxqpEXBy vR0lHZQzQ3h3IqRpNoD6 GWokK3OnRXFbtifrPw07 cM8bGsHuPpU6MMoa J9YuhvA4OPWulFLpKAhn SUL2I96qs2V4IAUjVWWf HIV3oBS9bL6siJxvubhp bGVmdDsgdmVydGlj RGbkPPlwQ745YBNvgHil PkNvZGluZyBEYXRlOiAg MDMvMDgvMjAyNTwvdGQ+ WETrTAW1eCybYKDb tIStHZbcVl4gwCvtcWsu US0wHNVirvjhMCRziG3w ZEXsbGQnwMcuIL7lKHDi hrzej712IoWnERB9 CBPhzAItX5HefK3yVqNf AHVlNWSvW4MkzCJfSWzl S657QSqjVcX6DSZwlmQd T2ExDJVbiYnjMvR5 k5P6Jc6Tm4VcemfgJ9Ny nENnTmTnAtapYCt5L1Nm PjwvdHI+WX18MCTuZQ82 DYg6UFS8kQanBGpz PBQlB3PwxO4pUlZoNAQb ZGRkOyc+PHRhYmxlIHdp ZHRoPScxMDAlJyBzdHls JQ1cJl8fTBKcZNTx hAzuuBBqIvCfs9veQWAe NRoxJD5ggTwwT3HejCE8 CAJhy5e5Lg93I32wL3Gn dXA+OKDknBF6sPQ4 yI1fZhUzHhQ1CDycI507 BdBhoWZuOirxu4paw9ch fEw7UiN3HEHyloMkpZfg BWL9s5EcZd24F15w IHdpZHRoPSIxNSUiIHZh mOodyw1uuU3hYy4+PGNv gNI6kYR0aY8lCuKhMcA8 ZKzzJ878YsApmDYn Ftjyg8dmc5gwzFz1XbXs UMVdssYtgXniMAD7u1Eh Kq08F6StnKmxi0RaBge1 iw20yTSvx6T1aUZ7 D4ZpOYQxxowjqZPslMiy BS0bRTLaxfbeBOEaiV7g KVGtI7g3HkAyXiK2IPdf X4QugiL2EOGcnYKu VZHjjIZXaD4ferxuu4yi mhgjSnIuPCQjYSs7LTu1 QZAciJceLtMmABF7JzK9 UXO0mURhmO6rwIlb pzxjkL4yJqh+BUK7pMMr fZVKMP3bNcqqyFC+PHRk FFA0rLqaXEsjORXrzM4k YXWfB5w7AvSfTvK8 FQwmG4NxmbJ2FZOufPUx OQSlcAQNzK4qbpbaj9wo wdydEkRbDOMtPUn7KQn4 LWFsaWduOiBsZWZ0 FnM3KIK0lTLlbR3ogAey jefefH5wCiw+QmlydGgg ZWV6AZt6O2IwMzu4BIKq vHkdYB5sfWMiPGry Vq1wsDxzpQhnIB2wIKCn daydw274HyTaw8unOHSy eYVzVMvdPKG5N21zv9S5 FKLkDCQtYGL2oTF8 eM7urDbyjqmmiEVizQtz moCpjQyxGKpfCNfuW060 HMGgrWuoZjDeAYd6C2Kg Zqy5MQNykGteXC9k dYNcNSrpWo1jaBkqwTaa OU7cXPXifyagf622JkMl o5vcQQRcqPAkGQrbHEX4 S64fe1G5WIDuEGEy VSU0sOU0xM8qzFggiouc bGVmdDsgdmVydGljYWwt CGxkE342GZCqzVxxPiVh vDg5A2KqVqp8LKNh bCgiQE9sxTFxBVvcIv0b lAioeSacGM6hSYYvtilr p282IdYus5kmGPNjlCKq IAqiLZN2M29og6L6 HMCmELYvIWR3dPV1hP2o bGlnbjogbGVmdDsgdmVy vJkdSYucAJomB235EFRb cDsnPlBhdGllbnQg IQhqCBu0T1BuMkbefUD+ RA70ZDGkTS50fPZixUUt j2gokRn5NmGzDPWkNVP4 dJqwCXtyz3OsYMUu J52qwRKlr1T8JZXarXak bORpGwYqbEP3lE0kRLly ogsme4avcrccOofmr5pu gh21kC76N45nISng ZHRoPSIzMCUiIHZhbGln iq1kbY7fLl4+PGNvbCB3 gHY1vJ1sVQRsFeS3IWtt U743LlJsmEYpAsjh f3bmc9owyLv1AzD1YVYf afXjfButDHI0g2UoJj77 Y20sMVcfAVZjICIoGKUi YJOovJsuub5pfL5q Ii8+KQSfjUD2eAM0nH6v UuPqVvF0TPdhA247ZoGm zDKmQnoxA91sH8VuaKE+ XBDxLif7ZNMudSvh AP3vpJIhBSevDw9gSYS4 AsLkPxAwKTpcP7XbXHZx tfjosapujEZ3YAKnAVJw dE26Se1xjIfbBTTb lQFJlT9idefjs7gzgduj OrOjPQGtAHn4LPt8IYRq jVoaSuOcQFN0IjI5QLI0 oMRlbZ3yxYzjnhei rB2wZ5ZcMBQpepgzAl27 oE3lLsObThI1IJkxIzh+ Um1PZyBLXnurOLFJPCrX IEQgRUxMSVNPTjwv dGQ+SGDrPRZ6kErsNKup VWPxvC8pYJBuI5f2RaNu MlS9XVajO0FgFCUglbyd Sq11eE6rGlGeXsG0 BWriF8FdglT2CRHyiSMn NBgsTQB9B78en4W7NTBq AJRjJAI5hZF8kX2mfIvf bjogbGVmdDsgdmVy uMtiGKloALgeB661JZMb aBfgBmYrNjYdYzE3Fgm8 P4BwOek5TFKbkPxvYU5c kQHjDKysHv0lzVkc xRqzHC7lYQCwsjbcENPm bN6rGOMuoTNdiQwrZM4c SQAqzznne036HfPlMED0 CPPniKSgF1AnvZ8j XxSeUXMiRBAjL8PwnRJi QWejV962PKmcOpO6KUAf brUkV6RcGDOmeJiaNvV4 b2D8Ou43CuXGFNAu czwvdGQ+QQKcIPX4ePcu NXuzBXMnvZ7wWHKdS5c5 DmNzGfC3WCflS2EeZSQw mhokYc26oH8wNtKw RrB6HRuaW8OmgfY8RCEm pDGnMBdwGHX3O19jy9Q5 ZJXvLWToEEM1gZF1lX9d bGlnbjogbGVmdDsg hpWrtAmbTIbyLCfcA061 IHRvcDsnPkZFTUFMRTwv dGQ+PJViFJU5yTcmYFdf JKCxuX5rIBKhV4o8 SuNzYlM8FPedQ7DqKFFi ukctRb15cK0cGeHgYkA2 DHpcV1ToqaW5UOIriTBh NVsbUGW5B67tx2S8 KCJgUIBbIXB7pBS4vA5t bGlnbjogbGVmdDsgdmVy uOdaXQicZPchF441OIZc iIckWe8KZX99SB26 X1VgDssyiQUcxJL+PHRh YmxlIHdpZHRoPScxMDAl PwGbtXtxTT6qOv9gKBDn LWNvbGxhcHNlOiBj f2cuUBUoPGazHZ9nhKfk O4TagCO3GOUqa7a7El41 E01bG8LksOD+PGNvbCB3 fCT8dK5lRpDxSpG2 TFviV795PnDppCHkVcif l2jas4vjxMq5YaLjLKUm cdOugWcrECZ6j1MoRg31 D62gCVysEIDzHVRn FZWfHLNawAvyml2ljC6m Ii8+BUIohTW2dHM6aX8g FoAhHxT1TNgoH464LaMh iPZxCccqT54kL7Sj dXA+UXVoUsj2UJQtaOmf DU0jvBUtATdwZb4aJEW8 DxByPeMoCJviZ0TdUPPb njbjmghvrRM0LJDl DAChoY93Wx1haWkkXv9w WRNaQNH4SCXmyNOjQ1Vj mB9pVfAqKXMuSTJoO3Uo sKFwNMqxW150VLgu DlR4VGRrcyRpL8MqRTJg jFkpLpY9y2T2Hb4AuMdv uJErMW4kOtYzTYs7Z5Id Aii8BQQygScjZP5b bEKgCXolEc6omPbxkKlc JP2dZBZekttro187WgIh j8dhTOAteFDpDUkaEQN3 U50zy1M6QVNeRBVv TWS0zQP0sS4imIjacwro bGVmdDsgdmVydGljYWwt KWfyO943ZRGbzZidKiBO Ecf3R6KpHvw9WZIe gJxpBO5wyABnYVgaPt3i mVhedGmjON1hZCNrcjik z568XuKtl0lwKQPofBGs AHywRYD8H40ii0F8 KTXyQQCqBNX7yLF4yU8o bGlnbjogbGVmdDsgdmVy tZgjFHpmLCcsW021NQAd vYvtRb7UZmj2K2Ps Epu2RKWbcMciGJ8gvTQx DErdQz5trZxhbKzeJZ5r PIKwjtohz708VfIcf5ac IDEwcHQgVGltZXM7 H10so3W3HWXtZBBdDJJ1 aBL7jC3boEmxdmnmvFGf dDsgdmVydGljYWwtYWxp M464YYMydBsnZwYn eWVyOjwvdGQ+UK31ph79 R4TrNvugEpx7WHVzAKB5 iWF8rE5cGNSoHNqkb3N3 gML4Q3NogjRxpo8m b2x (more content not included)... Normal [facility] Reminder Messageson 06-24-19 Reminder Messages - From: BLADE CREWS DO To: [facility] Clinical Pool ([facility]); Sent: 06/22/2024 12:08:59 EST ! Show up: [...] % (14 - 48) 06/22/2024 11:12 Auto Phillips % 12 % (1 - 12) 06/22/2024 11:12 Auto Eos % 3.8 % (0.9 - 4.0) 06/22/2024 11:12 Auto Baso % 1.2 % (0.2 - 2.0) 06/22/2024 11:12 Neut Abs# (L) 1.4 x103/mcL (1.5 - 9.2) 06/22/2024 11:12 Lymph Abs# 1.3 x103/mcL (1.3 - 2.9) 06/22/2024 11:12 Phillips Abs# 0.4 x103/mcL (0.0 - 0.8) 06/22/2024 [...] on 06/24/2024? 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 - From: Gavi Mora MA ([facility] Clinical Pool ([facility])) To: [facility] Clerical Pool ([facility]); Sent: 06/23/2024 10:43:45 EST Show up: 06/23/2024 10:43:00 EST Subject: RE: Results Follow Up Note prepared and placed in patient pickup folder in front office. Normal [facility] .Auto Diff 1on - Auto Phillips % 12 % Normal 1-12 [facility] Comment on above: Performed By: #### 7 [id number], [id number], [id number] #### [facility] (DEFAULT) [address] [place] [address] Baso Abs# 0.0 x10 Normal 0.0-0.2 [facility] Comment on above: Performed By: #### 7 [id number], [id number], [id number] #### [facility] (DEFAULT) [address] [place] [address] Basophils/100 WBC (Bld) 1.2 % Normal 0.2-2.0 [facility] Comment on above: Performed By: #### 7 [id number], [id number], [id number] #### [facility] (DEFAULT) [address] [place] [address] 92291 Eos Abs# 0.1 x10 Normal 0.0-0.4 [facility] Comment on above: Performed By: #### 7 [id number], [id number], [id number] #### [facility] (DEFAULT) [address] [place] [address] Eosinophils/100 WBC (Bld) 3.8 % Normal 0.9-4.0 [facility] Comment on above: Performed By: #### 7 [id number], [id number], [id number] #### [facility] (DEFAULT) [address] [place] [address] Lymph Abs# 1.3 x10 Normal 1.3-2.9 [facility] Comment on above: Performed By: #### 7 [id number], [id number], [id number] #### [facility] (DEFAULT) [address] [place] [address] Lymphocytes/100 WBC (Bld) 40 % Normal 14-48 [facility] Comment on above: Performed By: #### 7 345503, [id number], [id number] #### [facility] (DEFAULT) [address] [place] [address] Phillips Abs# 0.4 x10 Normal 0.0-0.8 [facility] Comment on above: Performed By: #### 7 [id number], [id number], [id number] #### [facility] (DEFAULT) [address] [place] [address] 02914 Neut Abs# 1.4 x10 Low 1.5-9.2 [facility] Comment on above: Performed By: #### 7 943076, [id number], [id number] #### [facility] (DEFAULT) [address] [place] [address] 19757 Neutrophils/100 WBC (Bld) 44 % Normal 44-88 [facility] Comment on above: Performed By: #### 7 127233, [id number], [id number] #### [facility] (DEFAULT) [address] [place] [address] CBC w/ Auto Diffon 03-03-202 5 Erythrocyte distribution width (RBC) [Ratio] 13.5 % Normal 11.5-15.0 [facility] Comment on above: Performed By: #### 7 654112, [id number], [id number] #### [facility] (DEFAULT) [address] [place] [address] 70453 Hematocrit (Bld) [Volume fraction] 39.9 % Normal 33.7-40.4 [facility] Comment on above: Performed By: #### 7 126814, [id number], [id number] #### [facility] (DEFAULT) [address] [place] [address] 66560 Hemoglobin (Bld) [Mass/Vol] 13.4 g/dL Normal 11.3-15.9 [facility] Comment on above: Performed By: #### 7 224041, [id number], [id number] #### [facility] (DEFAULT) [address] [place] [address] 28823 Man Diff? Auto Invalid Interpretation Code [facility] Comment on above: Performed By: #### 7 737606, [id number], [id number] #### [facility] (DEFAULT) [address] [place] [address] 41385 MCH (RBC) [Entitic mass] 30 pg Normal 24-34 [facility] Comment on above: Performed By: #### 7 835214, [id number], [id number] #### [facility] (DEFAULT) [address] [place] [address] 71011 MCHC (RBC) [Mass/Vol] 34 g/dL Normal 26-37 [facility] Comment on above: Performed By: #### 7 431628, [id number], [id number] #### [facility] (DEFAULT) [address] [place] [address] 75377 MCV (RBC) [Entitic vol] 88 fL Normal 81-100 [facility] Comment on above: Performed By: #### 7 934105, [id number], [id number] #### [facility] (DEFAULT) [address] [place] [address] 28105 Platelet 240 x10 Normal 138-427 [facility] Comment on above: Performed By: #### 7 814409, [id number], [id number] #### [facility] (DEFAULT) [address] [place] [address] 79529 Platelet mean volume (Bld) [Entitic vol] 7.2 fL Normal 6.3-10.2 [facility] Comment on above: Performed By: #### 7 958205, [id number], [id number] #### [facility] (DEFAULT) [address] [place] [address] RBC 4.54 x10 Normal 3.70-5.30 [facility] Comment on above: Performed By: #### 7 943744, [id number], [id number] #### [facility] (DEFAULT) [address] [place] [address] WBC 3.1 x10 Low 3.5-10.5 [facility] Comment on above: Result Comment: Slid e Reviewed Performed By: #### 7 946227, [id number], [id number] #### [facility] (DEFAULT) [address] [place] [address] CMP Standardon 06-22-2024 eGFR Non AA >60 Invalid Interpretation Code [facility] Comment on above: Performed By: #### 7 862570, [id number], [id number] #### [facility] (DEFAULT) [address] [place] [address] 23147 eGFR AA >60 Invalid Interpretation Code [facility] Comment on above: Performed By: #### 7 604000, [id number], [id number] #### [facility] (DEFAULT) [address] [place] [address] 31893 Albumin [Mass/Vol] 4.0 g/dL Normal 3.5-5.0 [facility] Comment on above: Performed By: #### 7 068048, [id number], [id number] #### [facility] (DEFAULT) [address] [place] [address] 95156 Albumin/Globulin [Mass ratio] 1.2 {ratio} Low 1.4-2.6 [facility] Comment on above: Performed By: #### 7 724150, [id number], [id number] #### [facility] (DEFAULT) [address] [place] [address] 48091 Alk Phos 50 IU/L Normal 32-91 [facility] Comment on above: Performed By: #### 7 318255, [id number], [id number] #### [facility] (DEFAULT) [address] [place] [address] 57948 ALT [Catalytic activity/Vol] 21.0 U/L Normal 14.0-54.0 [facility] Comment on above: Performed By: #### 7 536442, [id number], [id number] #### [facility] (DEFAULT) [address] [place] [address] 25706 Anion gap [Moles/Vol] 1.4 mmol/L Low 5.0-19.0 [facility] Comment on above: Performed By: #### 7 404400, [id number], [id number] #### [facility] (DEFAULT) [address] [place] [address] 26472 AST [Catalytic activity/Vol] 22 U/L Normal 15-41 [facility] Comment on above: Performed By: #### 7 069994, [id number], [id number] #### [facility] (DEFAULT) [address] [place] [address] 72532 Bili Total 1.4 mg/dL High 0.3-1.2 [facility] Comment on above: Performed By: #### 7 904528, [id number], [id number] #### [facility] (DEFAULT) [address] [place] [address] 14014 Calcium [Mass/Vol] 8.1 mg/dL Low 8.9-10.3 [facility] Comment on above: Performed By: #### 7 098803, [id number], [id number] #### [facility] (DEFAULT) [address] [place] [address] 66836 Chloride [Moles/Vol] 108 mmol/L Normal 101-111 [facility] Comment on above: Performed By: #### 7 760784, [id number], [id number] #### [facility] (DEFAULT) [address] [place] [address] 45423 CO2 [Moles/Vol] 27 mmol/L Normal 21-32 [facility] Comment on above: Performed By: #### 7 754627, [id number], [id number] #### [facility] (DEFAULT) [address] [place] [address] 28609 Creatinine [Mass/Vol] 0.74 mg/dL Normal 0.60-1.30 [facility] Comment on above: Performed By: #### 7 233276, [id number], [id number] #### [facility] (DEFAULT) [address] [place] [address] 04104 Globulin (S) [Mass/Vol] 3.3 g/dL Normal 1.5-4.3 [facility] Comment on above: Performed By: #### 7 358909, [id number], [id number] #### [facility] (DEFAULT) [address] [place] [address] 18247 Glucose [Mass/Vol] 94.0 mg/dL Normal 74.0-118.0 [facility] Comment on above: Performed By: #### 7 [id number], [id number], [id number] #### [facility] (DEFAULT) [address] [place] [address] 65341 Osmolality 266 mOsm/L Invalid Interpretation Code [facility] Comment on above: Performed By: #### 7 [id number], [id number], [id number] #### [facility] (DEFAULT) [address] [place] [address] 82853 Potassium [Moles/Vol] 3.4 mmol/L Low 3.6-5.1 [facility] Comment on above: Performed By: #### 7 [id number], [id number], [id number] #### [facility] (DEFAULT) [address] [place] [address] 15958 Protein [Mass/Vol] 7.3 g/dL Normal 6.5-8.1 [facility] Comment on above: Performed By: #### 7 [id number], [id number], [id number] #### [facility] (DEFAULT) [address] [place] [address] 34660 Sodium [Moles/Vol] 133.0 mmol/L Low 136.0-144.0 [facility] Comment on above: Performed By: #### 7 [id number], [id number], [id number] #### [facility] (DEFAULT) [address] [place] [address] Urea nitrogen [Mass/Vol] 11 mg/dL Normal 8-26 [facility] Comment on above: Performed By: #### 7 [id number], [id number], [id number] #### [facility] (DEFAULT) [address] [place] [address] Urea nitrogen/Creatinine [Mass ratio] 14.8 mg/mg Normal 4.6-16.2 [facility] Comment on above: Performed By: #### 7 [id number], [id number], [id number] #### [facility] (DEFAULT) [address] [place] [address] 94168 UA Okrpv0ty 06-22-2024 UA Bacteria Trace [facility] Comment on above: Order Comment: Urina lysis Microscopic order added on by [employer] Rules system. Performed By: #### 1 [id number], [id number] #### [facility] (DEFAULT) [address] [place] [address] 83521 UA RBC 3-5 [facility] Comment on above: Order Comment: Urina lysis Microscopic order added on by [employer] system. Performed By: #### 1 [id number], [id number] #### [facility] (DEFAULT) [address] [place] [address] 35965 UA Squam Epi Few [facility] Comment on above: Order Comment: Urina lysis Microscopic order added on by [employer] system. Performed By: #### 1 [id number], [id number] #### [facility] (DEFAULT) [address] [place] [address] UA WBC 0-2 [facility] Comment on above: Order Comment: Urina lysis Microscopic order added on by [employer] system. Performed By: #### 1 [id number], [id number] #### [facility] (DEFAULT) [address] [place] [address] 32965 UA w Culture if Ind Standard on 06-22-2024 [employer] UA [facility] Comment on above: Performed By: #### 1 [id number], [id number] #### [facility] (DEFAULT) [address] [place] [address] 53493 Color (U) Yellow [facility] Comment on above: Performed By: #### 1 [id number], [id number] #### [facility] (DEFAULT) [address] [place] [address] 30333 Culture? Not Indicated Invalid Interpretation Code [facility] Comment on above: Result Comment: Resu lt created by rule GL_MAGR_ADD_UA_CULT Result created by rule GL_MAGR_ADD_UA_CULT Result created by rule GL_MAGR_ADD_UA_CULT1 Performed By: #### 1 [id number], [id number] #### [facility] (DEFAULT) [address] [place] [address] 87941 Glucose (U) [Mass/Vol] Negative [facility] Comment on above: Performed By: #### 1 [id number], [id number] #### [facility] (DEFAULT) [address] [place] [address] 58168 Ketones Ql (U) Negative [facility] Comment on above: Performed By: #### 1 [id number], [id number] #### [facility] (DEFAULT) [address] [place] [address] 16514 Micro? Indicated Invalid Interpretation Code [facility] Comment on above: Result Comment: Resu lt created by rule GL_MAGR_ADD_UA_MICRO Performed By: #### 1 [id number], [id number] #### [facility] (DEFAULT) [address] [place] [address] 12773 UA Bilirubin Negative [facility] Comment on above: Performed By: #### 1 [id number], [id number] #### [facility] (DEFAULT) [address] [place] [address] 36764 UA Blood SMALL Abnormal NEGATIVE [facility] Comment on above: Performed By: #### 1 [id number], [id number] #### [facility] (DEFAULT) [address] [place] [address] 00715 UA Clarity CLEAR Normal CLEAR [facility] Comment on above: Performed By: #### 1 [id number], [id number] #### [facility] (DEFAULT) [address] [place] [address] 75314 UA Leuk Est Negative Normal NEGATIVE [facility] Comment on above: Performed By: #### 1 [id number], [id number] #### [facility] (DEFAULT) [address] [place], [place] [address] 70289 UA Nitrite Negative Normal NEGATIVE [facility] Comment on above: Performed By: #### 1 [id number], [id number] #### [facility] (DEFAULT) [address] [place] [address] 29818 UA pH 7.0 Normal 5-8 [facility] Comment on above: Performed By: #### 1 [id number], [id number] #### [facility] (DEFAULT) [address] [place] [address] UA Protein Negative Normal NEGATIVE [facility] Comment on above: Performed By: #### 1 [id number], [id number] #### [facility] (DEFAULT) [address] [place] [address] 46905 UA Spec Grav 1.020 Normal 1.001-1.035 [facility] Comment on above: Performed By: #### 1 [id number], [id number] #### [facility] (DEFAULT) [address] [place] [address] 79921 UA Urobilinogen 1.0 mg/dL Normal 0.2-1.0 [facility] Comment on above: Performed By: #### 1 [id number], [id number] #### [facility] (DEFAULT) [address] [place] [address] Urine Source Clean Catch Normal [facility] Comment on above: Performed By: #### 1 [id number], [id number] #### [facility] (DEFAULT) [address] [place] [address] Office/Clinic Noteon 025 Office/Clinic Note [id number] #1.00OTGTIFF Normal [facility] CBC AND AUTO DIFFon 05-31-19 25 ABSOLUTE BASOPHIL 0.0 X10E9/L Normal 0.0-0.[address] [facility] Comment on above: Performed By: #### Aurora HUANG, BMP #### [facility] ([id number]) [address] [place] [address] 48833 Basophils/100 WBC (Bld) 1.0 % Normal [facility] Comment on above: Performed By: #### Aurora HUANG, BMP #### [facility] ([id number]) [address] [place] [address] 12875 Eosinophils (Bld) [#/Vol] 0.1 10*3/uL Normal 0.0-0.4 [facility] Comment on above: Performed By: #### Aurora HUANG, BMP #### [facility] ([id number]) [address] [place] [address] 27129 Eosinophils/100 WBC (Bld) 5.0 % Normal [facility] Comment on above: Performed By: #### Aurora HUANG, BMP #### [facility] ([id number]) [address] [place] [address] 62965 Erythrocyte distribution width (RBC) [Ratio] 13.4 % Normal 11.5-15.0 [facility] Comment on above: Performed By: #### Aurora HUANG, BMP #### [facility] ([id number]) [address] [place] [address] 21188 Hematocrit (Bld) [Volume fraction] 40.0 % Normal 35-47 [facility] Comment on above: Performed By: #### Aurora HUANG, BMP #### [facility] ([id number]) [address] [place] [address] 17718 Hemoglobin (Bld) [Mass/Vol] 13.2 g/dL Normal 11.7-15.5 [facility] Comment on above: Performed By: #### C REINA, BMP #### [facility] ([id number]) [address] [place] [address] 57550 LYMPHOCYTE, ATYPICAL 1.0 % Normal [facility] Comment on above: Performed By: #### C REINA, BMP #### [facility] ([id number]) [address] [place] [address] 94910 Lymphocytes (Bld) [#/Vol] 1.2 10*3/uL Normal 1.0-3.5 [facility] Comment on above: Performed By: #### C REINA, BMP #### [facility] ([id number]) [address] [place] [address] 49288 Lymphocytes/100 WBC (Bld) 40.0 % Normal [facility] Comment on above: Performed By: #### C REINA, BMP #### [facility] ([id number]) [address] [place] [address] 03036 MCH (RBC) [Entitic mass] 28.9 pg Normal 27-34 [facility] Comment on above: Performed By: #### C REINA, BMP #### [facility] ([id number]) [address] [place] [address] 25679 MCHC (RBC) [Mass/Vol] 33.1 g/dL Normal 32-36 [facility] Comment on above: Performed By: #### C REINA, BMP #### [facility] ([id number]) [address] [place] [address] 54766 MCV (RBC) [Entitic vol] 87 fL Normal 80-100 [facility] Comment on above: Performed By: #### C REINA, BMP #### [facility] ([id number]) [address] [place] [address] 29962 Monocytes (Bld) [#/Vol] 0.3 10*3/uL Normal 0-0.9 [facility] Comment on above: Performed By: #### C REINA, BMP #### [facility] ([id number]) [address] [place] [address] 68069 Monocytes/100 WBC (Bld) 11.0 % Normal [facility] Comment on above: Performed By: #### C REINA, BMP #### [facility] ([id number]) [address] [place] [address] 32232 Neutrophils (Bld) [#/Vol] 1.3 10*3/uL Low 1.5-6.6 [facility] Comment on above: Performed By: #### C REINA, BMP #### [facility] ([id number]) [address] [place] [address] 41333 Platelet mean volume (Bld) [Entitic vol] 7.7 fL Normal 7-12 [facility] Comment on above: Performed By: #### C REINA, BMP #### [facility] ([id number]) [address] [place] [address] 69434 Platelets (Bld) [#/Vol] 240 10*3/uL Normal 150-450 [facility] Comment on above: Performed By: #### C REINA, BMP #### [facility] ([id number]) [address] [place] [address] 29977 RBC COUNT 4.59 X10E12/L Normal 3.80-5.20 [facility] Comment on above: Performed By: #### C REINA, BMP #### [facility] ([id number]) [address] [place] [address] 38078 RBC morphology finding Nom (Bld) NORMAL Normal [facility] Comment on above: Performed By: #### C REINA, BMP #### [facility] ([id number]) [address] [place] [address] 29825 SEG NEUTROPHIL 42.0 % Normal [facility] Comment on above: Performed By: #### C BCA, BMP #### [facility] ([id number]) [address] [place] [address] 42476 WBC (Bld) [#/Vol] 2.9 10*3/uL Low 4.0-11.[address] [facility] Comment on above: Performed By: #### C BCA, BMP #### [facility] ([id number]) [address] [place] [address] 59578 COMPREHENSIVE METABOLIC PANE Nomi 05-31-2024 Albumin [Mass/Vol] 4.2 g/dL Normal 3.2-5.[address] [facility] Comment on above: Performed By: #### C BCA, BMP #### [facility] ([id number]) [address] [place] [address] 26007 ALP [Catalytic activity/Vol] 55 U/L Normal 39-130 [facility] Comment on above: Performed By: #### C BCA, BMP #### [facility] ([id number]) [address] [place] [address] 30892 ALT [Catalytic activity/Vol] 22 U/L Normal 0-31 [facility] Comment on above: Performed By: #### C BCA, BMP #### [facility] ([id number]) [address] [place] [address] 42521 Anion gap [Moles/Vol] 7 mmol/L Normal 5-15 [facility] Comment on above: Performed By: #### C BCA, BMP #### [facility] ([id number]) [address] [place] [address] 10618 AST [Catalytic activity/Vol] 18 U/L Normal 0-41 [facility] Comment on above: Performed By: #### C BCA, BMP #### [facility] ([id number]) [address] [place] [address] Bilirubin [Mass/Vol] 1.3 mg/dL High 0.3-1.2 [facility] Comment on above: Performed By: #### C BCA, BMP #### [facility] ([id number]) [address] [place] [address] 35523 Calcium [Mass/Vol] 8.7 mg/dL Normal 8.5-10.[address] [facility] Comment on above: Performed By: #### C BCA, BMP #### [facility] ([id number]) [address] [place] [address] 82116 Chloride [Moles/Vol] 105 mmol/L Normal 98-109 [facility] Comment on above: Performed By: #### C REINA, BMP #### [facility] ([id number]) [address] [place] [address] 58061 CO2 [Moles/Vol] 23 mmol/L Normal 22-32 [facility] Comment on above: Performed By: #### C REINA, BMP #### [facility] ([id number]) [address] [place] [address] 16577 Creatinine [Mass/Vol] 0.78 mg/dL Normal 0.40-1.00 [facility] Comment on above: Result Comment: METH OD TRACEABLE TO IDMS STANDARD Performed By: #### C REINA, BMP #### [facility] ([id number]) [address] [place] [address] [place] [address] eGFR (CKD-EPI) NON-RACE DEPENDENT >90 Normal >59 [facility] Comment on above: Result Comment: Reported eGFR is based on the CKD-EPI 2020 equation that does not use a race coefficient. Performed By: #### C BCA, BMP #### [facility] ([id number]) [address] [place] [address] 99745 Glucose [Mass/Vol] 92 mg/dL Normal 65-[address] [facility] Comment on above: Performed By: #### C BCA, BMP #### [facility] ([id number]) [address] [place] [address] 72928 Potassium [Moles/Vol] 3.5 mmol/L Normal 3.5-5.0 [facility] Comment on above: Performed By: #### C BCA, BMP #### [facility] ([id number]) [address] [place] [address] 51145 Protein [Mass/Vol] 7.1 g/dL Normal 6.0-8.[address] [facility] Comment on above: Performed By: #### C BCA, BMP #### [facility] ([id number]) [address] [place] [address] 71720 Sodium [Moles/Vol] 135 mmol/L Normal 134-[address] [facility] Comment on above: Performed By: #### C BCA, BMP #### [facility] ([id number]) [address] [place] [address] 21253 Urea nitrogen [Mass/Vol] 12 mg/dL Normal 5-23 [facility] Comment on above: Performed By: #### C BCA, BMP #### [facility] ([id number]) [address] [place] [address] BRAIN WO CONT STROKE ALER Ton [...] on 05/31/2024 11:15 AM Normal [facility] CT CTA CAROTIDon 05-31-2024 CT [...] on 05/31/2024 11:39 AM Normal [facility] CT CTA HEADon 05-31-2024 CT [...] anatomy and potential pathology. 100 mL of [id number] intravenous contrast without complication. Arterial blood flow [...] on 05/31/2024 11:23 AM Normal [facility] Fibrin D-dimer DDU (PPP) [Ma ss/Vol]on 05-31-2024 D DIMER 172 ng/mL DDU Normal <255 [facility] Comment on above: Result Comment: Results <255 ng/mL DDU: The presence of a VTE can safely be excluded with a negative D-Dimer result and Wells score. A negative result doesn't exclude the possibility of DIC. The test be repeated along with other diagnostic tests if the patient's symptoms persist or worsen. [email or web address] Performed By: #### C REINA, BMP #### [facility] ([id number]) [address] [place] [address] 35593 MAGNESIUMon 05-31-2024 Magnesium [Mass/Vol] 2.1 mg/dL Normal 1.8-2.6 [facility] Comment on above: Performed By: #### C REINA, BMP #### [facility] ([id number]) [address] [place] [address] 51537 Troponin I.cardiac High sens itivity method [Mass/Vol]on 05-31-2024 1 HOUR TROP I, HIGH SENSITIVITY 2 ng/L Normal <16 [facility] Comment on above: Performed By: #### 8 9579-7 ####[facility] ([id number])[address] [place] [address] 85572 TROPONIN I, HIGH SENSITIVITY 2 ng/L Normal <16 [facility] Comment on above: Performed By: #### C REINA, CMP, 01494-7, 32475-1, 85439-1 ####[facility] ([id number])[address] [place] [address] 01611 Patient Handouton 04-02-2024 Patient Handout [id number] 0#1.00OTGTIFF Normal [facility] Patient Handout [id number] 4#1.00OTGTIFF [facility] Troponin I.cardiac High sens itivity method [Mass/Vol]on 02-15-2024 1 HOUR TROP I, HIGH SENSITIVITY 4 ng/L Normal <16 [facility] Comment on above: Performed By: #### C REINA, BMP #### [facility] ([id number]) [address] [place] [address] 70277 CBC AND AUTO DIFFon 02-14-20 ABSOLUTE BASOPHIL 0.1 X10E9/L Normal 0.0-0.[address] [facility] Comment on above: Performed By: #### C REINA, CMP, 60108-3, 16859-7 #### [facility] ([id number]) [address] [place] [address] 42401 ABSOLUTE NEUTROPHIL 2.1 X10E9/L Normal 1.5-6.6 [facility] Comment on above: Performed By: #### C REINA, CMP, 32456-4, 24575-8 #### [facility] ([id number]) [address] [place] [address] 04351 Basophils/100 WBC (Bld) 1.1 % Normal [facility] Comment on above: Performed By: #### C REINA, CMP, 78269-6, 13765-8 #### [facility] ([id number]) [address] [place] [address] 77483 Eosinophils (Bld) [#/Vol] 0.1 10*3/uL Normal 0.0-0.4 [facility] Comment on above: Performed By: #### C JAMES HUANG, 49964-8, 43406-1 #### [facility] ([id number]) [address] [place] [address] 56405 Eosinophils/100 WBC (Bld) 2.8 % Normal [facility] Comment on above: Performed By: #### C JAMES HUANG, 95229-7, 08183-2 #### [facility] ([id number]) [address] [place] [address] 97023 Erythrocyte distribution width (RBC) [Ratio] 13.1 % Normal 11.5-15.0 [facility] Comment on above: Performed By: #### Aurora HUANG CMP, 95507-8, 04990-1 #### [facility] ([id number]) [address] [place] [address] 31973 Hematocrit (Bld) [Volume fraction] 38.3 % Normal 35-47 [facility] Comment on above: Performed By: #### C JAMES HUANG, 82435-4, 83314-2 #### [facility] ([id number]) [address] [place] [address] 42741 Hemoglobin (Bld) [Mass/Vol] 12.9 g/dL Normal 11.7-15.5 [facility] Comment on above: Performed By: #### C REINA, CMP, 37220-3, 02733-6 #### [facility] ([id number]) [address] [place] [address] 30323 Lymphocytes (Bld) [#/Vol] 2.0 10*3/uL Normal 1.0-3.5 [facility] Comment on above: Performed By: #### C REINA CMP, 58614-5, 28442-2 #### [facility] ([id number]) [address] [place] [address] 38907 Lymphocytes/100 WBC (Bld) 41.2 % Normal [facility] Comment on above: Performed By: #### C REINA, CMP, 80608-0, 82189-4 #### [facility] ([id number]) [address] [place] [address] 69806 MCH (RBC) [Entitic mass] 29.4 pg Normal 27-34 [facility] Comment on above: Performed By: #### C REINA, CMP, 57280-2, 21242-2 #### [facility] ([id number]) [address] [place] [address] 62114 MCHC (RBC) [Mass/Vol] 33.7 g/dL Normal 32-36 [facility] Comment on above: Performed By: #### C REINA, CMP, 65711-4, 38720-5 #### [facility] ([id number]) [address] [place] [address] 62012 MCV (RBC) [Entitic vol] 87 fL Normal 80-100 [facility] Comment on above: Performed By: #### Aurora HUANG, CMP, 35949-9, 20414-4 #### [facility] ([id number]) [address] [place] [address] 36089 Monocytes (Bld) [#/Vol] 0.5 10*3/uL Normal 0-0.9 [facility] Comment on above: Performed By: #### Aurora HUANG, CMP, 79923-6, 04528-2 #### [facility] ([id number]) [address] [place] [address] 29112 Monocytes/100 WBC (Bld) 10.2 % Normal [facility] Comment on above: Performed By: #### Aurora BCA, CMP, 61502-8, 73684-7 #### [facility] ([id number]) [address] [place] [address] 27085 Neutrophils/100 WBC (Bld) 44.7 % Normal [facility] Comment on above: Performed By: #### C REINA, CMP, 11523-6, 04887-6 #### [facility] ([id number]) [address] [place] [address] 67036 Platelet mean volume (Bld) [Entitic vol] 7.5 fL Normal 7-12 [facility] Comment on above: Performed By: #### C REINA, CMP, 42590-4, 04911-8 #### [facility] ([id number]) [address] [place] [address] 37417 Platelets (Bld) [#/Vol] 261 10*3/uL Normal 150-450 [facility] Comment on above: Performed By: #### C REINA, CMP, 93019-4, 30320-7 #### [facility] ([id number]) [address] [place] [address] 03840 RBC COUNT 4.40 X10E12/L Normal 3.80-5.20 [facility] Comment on above: Performed By: #### Aurora HUANG, CMP, 23217-6, 01796-7 #### [facility] ([id number]) [address] [place] [address] 62134 WBC (Bld) [#/Vol] 4.7 10*3/uL Normal 4.0-11.[address] [facility] Comment on above: Performed By: #### Aurora HUANG, CMP, 67922-6, 17808-1 #### [facility] ([id number]) [address] [place] [address] 88958 COMPREHENSIVE METABOLIC PANE Nomi 02-14-2024 Albumin [Mass/Vol] 4.4 g/dL Normal 3.2-5.[address] [facility] Comment on above: Performed By: #### C BCA, CMP, 51256-1, 79108-8 #### [facility] ([id number]) [address] [place] [address] 71153 ALP [Catalytic activity/Vol] 54 U/L Normal 39-130 [facility] Comment on above: Performed By: #### C BCA, CMP, 73530-8, 42113-0 #### [facility] ([id number]) [address] [place] [address] 69593 ALT [Catalytic activity/Vol] 20 U/L Normal 0-31 [facility] Comment on above: Performed By: #### C BCA, CMP, 67816-4, 99469-2 #### [facility] ([id number]) [address] [place] [address] 95959 Anion gap [Moles/Vol] 8 mmol/L Normal 5-15 [facility] Comment on above: Performed By: #### C BCA, CMP, 14316-9, 94984-3 #### [facility] ([id number]) [address] [place] [address] 91195 AST [Catalytic activity/Vol] 17 U/L Normal 0-41 [facility] Comment on above: Performed By: #### C BCA, CMP, 15783-9, 38002-4 #### [facility] ([id number]) [address] [place] [address] 42818 Bilirubin [Mass/Vol] 1.0 mg/dL Normal 0.3-1.2 [facility] Comment on above: Performed By: #### C BCA, CMP, 54059-8, 10268-1 #### [facility] ([id number]) [address] [place] [address] 69779 Calcium [Mass/Vol] 8.7 mg/dL Normal 8.5-10.[address] [facility] Comment on above: Performed By: #### C REINA, CMP, 87393-6, 41414-3 #### [facility] ([id number]) [address] [place] [address] 57265 Chloride [Moles/Vol] 105 mmol/L Normal 98-109 [facility] Comment on above: Performed By: #### C REINA, JAMES, 51094-0, 96651-3 #### [facility] ([id number]) [address] [place] [address] 71204 CO2 [Moles/Vol] 25 mmol/L Normal 22-32 [facility] Comment on above: Performed By: #### C REINA, JAMES, 08262-8, 34437-7 #### [facility] ([id number]) [address] [place] [address] 12122 Creatinine [Mass/Vol] 0.69 mg/dL Normal 0.40-1.00 [facility] Comment on above: Result Comment: METH OD TRACEABLE TO IDMS STANDARD Performed By: #### C REINA, JAMES, 59918-1, 28760-8 #### [facility] ([id number]) [address] [place] [address] 15245 eGFR (CKD-EPI) NON-RACE DEPENDENT >90 Normal >59 [facility] Comment on above: Result Comment: Reported eGFR is based on the CKD-EPI 2021 equation that does not use a race coefficient. Performed By: #### C REINA, CMP, 54371-9, 60379-1 #### [facility] ([id number]) [address] [place] [address] 09258 Glucose [Mass/Vol] 91 mg/dL Normal 65-[address] [facility] Comment on above: Performed By: #### C REINA, CMP, 37265-0, 11160-1 #### [facility] ([id number]) [address] [place] [address] 58007 Potassium [Moles/Vol] 2.9 mmol/L Low 3.5-5.0 [facility] Comment on above: Performed By: #### C JAMES HUANG, 29591-9, 88548-6 #### [facility] ([id number]) [address] [place] [address] 16211 Protein [Mass/Vol] 7.3 g/dL Normal 6.0-8.[address] [facility] Comment on above: Performed By: #### C REINA CMP, 86842-7, 22857-3 #### [facility] ([id number]) [address] [place] [address] 92396 Sodium [Moles/Vol] 138 mmol/L Normal 134-[address] [facility] Comment on above: Performed By: #### C JAMES HUANG, 47923-4, 56883-1 #### [facility] ([id number]) [address] [place] [address] 50870 Urea nitrogen [Mass/Vol] 12 mg/dL Normal 5-23 [facility] Comment on above: Performed By: #### C JAMES HUANG, 40476-5, 36753-5 #### [facility] ([id number]) [address] [place] [address] 36333 Fibrin D-dimer DDU (PPP) [Ma ss/Vol]on 02-14-2024 D DIMER <150 Normal <255 [facility] Comment on above: Result Comment: Results <255 ng/mL DDU: The presence of a VTE can safely be excluded with a negative D-Dimer result and Wells score. A negative result doesn't exclude the possibility of DIC. The test be repeated along with other diagnostic tests if the patient's symptoms persist or worsen. [email or web address] Performed By: #### C BCA, CMP, 80131-6, 66696-8 #### [facility] ([id number]) [address] [place] [address] 90706 Troponin I.cardiac High sens itivity method [Mass/Vol]on 02-14-2024 TROPONIN I, HIGH SENSITIVITY 3 ng/L Normal <16 [facility] Comment on above: Performed By: #### C BCA, BMP #### [facility] ([id number]) [address] [place] [address] 63575 XR CHEST 1 VWon 02-14-2024 XR CHEST 1 VW XR CHEST 1 VW Single view chest History: Difficulty breathing, shortness of breath Comparison: 01/25/2018 Impression: No acute pulmonary process. No pneumothorax or pleural effusion. Nonenlarged heart. Finalized by Steven Saleh MD on 02/14/2024 11:37 PM Normal [facility] XR CERVICAL SPINE AP/LAT/FLE X/EXT/OBLIQUESon [...] Anion gap [Moles/Vol] 8 mmol/L Normal 5-15 [facility] Comment on above: Performed By: #### C BCA, BMP #### [facility] ([id number]) [address] [place] [id number] Calcium [Mass/Vol] 9.1 mg/dL Normal 8.5-10.[address] [facility] Comment on above: Performed By: #### C REINA, BMP #### [facility] ([id number]) [address] [place] [id number] Chloride [Moles/Vol] 104 mmol/L Normal 98-109 [facility] Comment on above: Performed By: #### C REINA, BMP #### [facility] ([id number]) [address] [place] [address] [id number] CO2 [Moles/Vol] 24 mmol/L Normal 22-32 [facility] Comment on above: Performed By: #### C REINA, BMP #### [facility] ([id number]) [address] [place] [address] 34054 Creatinine [Mass/Vol] 1.05 mg/dL High 0.40-1.00 [facility] Comment on above: Result Comment: METH OD TRACEABLE TO IDMS STANDARD Performed By: #### C REINA, BMP #### [facility] ([id number]) [address] [place] [address] 55400 GFR/1.73 sq M.predicted among non-blacks MDRD (S/P/Bld) [Vol rate/Area] 67 mL/min/{1.73_m2} Normal >59 [facility] Comment on above: Result Comment: Reported eGFR is based on the CKD-EPI 1 equation that does not use a race coefficient. Performed By: #### C REINA, BMP #### [facility] ([id number]) [address] [place] [address] 53871 Glucose [Mass/Vol] 85 mg/dL Normal 65-[address] [facility] Comment on above: Performed By: #### C REINA, BMP #### [facility] ([id number]) [address] [place] [address] 93515 Potassium [Moles/Vol] 3.3 mmol/L Low 3.5-5.0 [facility] Comment on above: Performed By: #### C REINA, BMP #### [facility] ([id number]) [address] [place] [address] 21730 Sodium [Moles/Vol] 136 mmol/L Normal 134-[address] [facility] Comment on above: Performed By: #### C REINA, BMP #### [facility] ([id number]) [address] [place] [address] 55628 Urea nitrogen [Mass/Vol] 15 mg/dL Normal 5-23 [facility] Comment on above: Performed By: #### C REINA, BMP #### [facility] ([id number]) [address] [place] [address] 57244 CBC AND AUTO DIFFon 10-19-19 24 ABSOLUTE BASOPHIL 0.0 X10E9/L Normal 0.0-0.[address] [facility] Comment on above: Performed By: #### C REINA, BMP #### [facility] ([id number]) [address] [place] [address] 87872 ABSOLUTE NEUTROPHIL 4.7 X10E9/L Normal 1.5-6.6 [facility] Comment on above: Performed By: #### C REINA, BMP #### [facility] ([id number]) [address] [place] [address] 26366 Basophils/100 WBC (Bld) 0.6 % Normal [facility] Comment on above: Performed By: #### C REINA, BMP #### [facility] ([id number]) [address] [place] [address] 08279 Eosinophils (Bld) [#/Vol] 0.3 10*3/uL Normal 0.0-0.4 [facility] Comment on above: Performed By: #### C REINA, BMP #### [facility] ([id number]) [address] [place] [address] 72130 Eosinophils/100 WBC (Bld) 3.5 % Normal [facility] Comment on above: Performed By: #### C REINA, BMP #### [facility] ([id number]) [address] [place] [address] 39128 Erythrocyte distribution width (RBC) [Ratio] 13.1 % Normal 11.5-15.0 [facility] Comment on above: Performed By: #### C REINA, BMP #### [facility] ([id number]) [address] [place] [address] 55010 Hematocrit (Bld) [Volume fraction] 37.9 % Normal 35-47 [facility] Comment on above: Performed By: #### C REINA, BMP #### [facility] ([id number]) [address] [place] [address] 39547 Hemoglobin (Bld) [Mass/Vol] 12.8 g/dL Normal 11.7-15.5 [facility] Comment on above: Performed By: #### C REINA, BMP #### [facility] ([id number]) [address] [place] [address] 57394 Lymphocytes (Bld) [#/Vol] 1.8 10*3/uL Normal 1.0-3.5 [facility] Comment on above: Performed By: #### C REINA, BMP #### [facility] ([id number]) [address] [place] [address] 30567 Lymphocytes/100 WBC (Bld) 24.1 % Normal [facility] Comment on above: Performed By: #### C REINA, BMP #### [facility] ([id number]) [address] [place] [address] 65828 MCH (RBC) [Entitic mass] 30.0 pg Normal 27-34 [facility] Comment on above: Performed By: #### C REINA, BMP #### [facility] ([id number]) [address] [place] [address] [place] [address] MCHC (RBC) [Mass/Vol] 33.7 g/dL Normal 32-36 [facility] Comment on above: Performed By: #### C REINA, BMP #### [facility] ([id number]) [address] [place] [address] 74045 MCV (RBC) [Entitic vol] 89 fL Normal 80-100 [facility] Comment on above: Performed By: #### C REINA, BMP #### [facility] ([id number]) [address] [place] [address] 43137 Monocytes (Bld) [#/Vol] 0.7 10*3/uL Normal 0-0.9 [facility] Comment on above: Performed By: #### C REINA, BMP #### [facility] ([id number]) [address] [place] [address] 95890 Monocytes/100 WBC (Bld) 9.3 % Normal [facility] Comment on above: Performed By: #### C REINA, BMP #### [facility] ([id number]) [address] [place] [address] 21983 Neutrophils/100 WBC (Bld) 62.5 % Normal [facility] Comment on above: Performed By: #### Aurora HUANG, BMP #### [facility] ([id number]) [address] [place] [address] [place] [address] Platelet mean volume (Bld) [Entitic vol] 7.3 fL Normal 7-12 [facility] Comment on above: Performed By: #### C REINA, BMP #### [facility] ([id number]) [address] [place] [address] [place] [address] Platelets (Bld) [#/Vol] 262 10*3/uL Normal 150-450 [facility] Comment on above: Performed By: #### C BCA, BMP #### [facility] ([id number]) [address] [place] [address] 30821 RBC COUNT 4.26 X10E12/L Normal 3.80-5.20 [facility] Comment on above: Performed By: #### C BCA, BMP #### [facility] ([id number]) [address] [place] [address] 77720 WBC (Bld) [#/Vol] 7.5 10*3/uL Normal 4.0-11.[address] [facility] Comment on above: Performed By: #### C REINA, BMP #### [facility] ([id number]) [address] [place] [address] 46693 CHLAMYDIA/GC PCR, Uon 2023 CHLAMYDIA/GC PCR, U [...] on adequate specimen collection. Normal [facility] Comment on above: Performed By: #### C #### [facility] ([id number]) [address] [place] [address] [facility] ([id number]) [address], [address] [place] [address] CT ABDOMEN AND PELVIS WO CON Ton [...] on 10/19/2023 1:18 AM Normal [facility] TRICHOMONAS PCRon 10-19-2023 TRICHOMONAS PCR SPECIMEN SOURCE CLEAN CATCH MIDSTREAM URINE TRICHOMONAS PCR Not detected (qualifier value) Trichomonas vaginalis not detected NOTE Assay methodology is nucleic acid amplification by real-time PCR for detection of Trichomonas vaginalis DNA performed on [employer]. Normal [facility] Comment on above: Performed By: #### T RKPCR #### [facility] ([id number]) [address] [place] [address] 05194 [facility] ([id number]) [address] [place] [address], [address] [place] [address] URINALYSISon 10-19-2023 Bilirubin Ql (U) Negative Normal NEG [facility] Comment on above: Performed By: #### U A #### [facility] ([id number]) [address] [place] [address] 06833 BLOOD/HGB MODERATE Abnormal NEG [facility] Comment on above: Performed By: #### U A #### [facility] ([id number]) [address] [place] [address] 99605 Color (U) YELLOW Normal YELLOW [facility] Comment on above: Performed By: #### U A #### [facility] ([id number]) [address] [place] [address] 80406 Glucose Ql (U) Negative Normal NEG [facility] Comment on above: Performed By: #### U A #### [facility] ([id number]) [address] [place] [address] 40146 Ketones Ql (U) Negative Normal NEG [facility] Comment on above: Performed By: #### U A #### [facility] ([id number]) [address] [place] [address] 81430 Leukocyte esterase Test strip Ql (U) SMALL Abnormal NEG [facility] Comment on above: Performed By: #### U A #### [facility] ([id number]) [address] [place] [address] 66982 Nitrite Ql (U) Negative Normal NEG [facility] Comment on above: Performed By: #### U A #### [facility] ([id number]) [address] [place] [address] 42947 pH (U) 6.0 [pH] Normal 5.0-8.5 [facility] Comment on above: Performed By: #### U A #### [facility] ([id number]) [address] [place] [address] 41191 Protein Ql (U) Trace Abnormal NEG [facility] Comment on above: Performed By: #### U A #### [facility] ([id number]) [address] [place] [address] 61106 R.B.CELLS 4 /hpf Normal 0-5 [facility] Comment on above: Performed By: #### U A #### [facility] ([id number]) [address] [place] [address] [place] [address] Specific gravity (U) [Rel density] 1.025 Normal 1.003-1.035 [facility] Comment on above: Performed By: #### U A #### [facility] ([id number]) [address] [place] [address] [place] [address] SQUAMOUS EPITHELIUM 4 /hpf Normal 0-5 [facility] Comment on above: Performed By: #### U A #### [facility] ([id number]) [address] [place] [address] 93893 TRANSITIONAL EPITH 1 /hpf High [address] [facility] Comment on above: Performed By: #### U A #### [facility] ([id number]) [address] [place] [address] 06888 TURBIDITY CLEAR Normal CLEAR [facility] Comment on above: Performed By: #### U A #### [facility] ([id number]) [address] [place] [address] 91694 Urobilinogen Qn (U) 0.2 {Del'U}/dL Normal <1.1 [facility] Comment on above: Performed By: #### U A #### [facility] ([id number]) [address] [place] [address] 26135 W.B.CELLS 6 /hpf High 0-5 [facility] Comment on above: Performed By: #### U A #### [facility] ([id number]) [address] [place] [address] 30083 URINE CULTUREon 10-19-2023 Bacteria identified Cx Nom (U) CULTURE RESULTS 10-50,000 ORGANISMS/mL NORMAL UROGENITAL LIAM Normal [facility] Comment on above: Performed By: #### 6 30-4 #### [facility] ([id number]) [address], [address] [place] [address] Patient Educationon 01-09-20 23 Patient Education Obstetrics [...] provider. Document Revised: 08/17/2021 Document Reviewed: 08/17/2021 [employer] Patient Education ? 2022 [employer] [facility] Urology Office/Clinic Noteon 01-08-2023 Urology Office/Clinic Note Chief Complaint F/U to Cysto HPI Staff Last seen in our office 10/30/22 by JOE as a referral due to Microscopic Hematuria, Flank pain & Mixed Incontinence. Pt. was not able to give a urine sample today. S/P Cysto/UD by PRW 11/13/22 *Macrobid 100mg qd u68sivc given post op Renal US 11/13/22 Dysuria: [...] Cysto/UD by PRW 11/13/22 *Macrobid 100mg qd t25kobr given post op Pt states she is [...] When Contact Information AMELIE ESPARZA PA-C, URL [address] [place] [address] Additional Instructions: PRN Patient Education Jacky Ruano I, Lamar Estrada, personally scribed for Amelie Esparza PA-C on 01/08/2023 15:11:32. . Documentation recorded by the scrjustine Estrada accurately reflects the services(s) I performed [...] Father. Migraine: Mother. Parkinsons disease: Father. [facility] Comment on above: Result Comment: Elec tronically Signed By: AMELIE ESPARZA PA-C\.br\Date and Time Signed: 01/08/23 15:16 EDT\.br\Electronically Co-Signed By: Lamar Estrada\.br\Date and Time Co-Signed: 01/08/23 15:11 EDT Lab Reportson 11-26-2022 Lab Reports [id number] 6#1.00CD:127 Normal [facility] Lab Reports [id number] 8#1.00CD:127 Normal [facility] Lab Reports [id number] 7#1.00CD:127 Normal [facility] Lab Reports [id number] 3#1.00CD:127 [facility] Lab Reports [id number] 9#1.00CD:127 [facility] RAD - Ultrasound Reporton RAD - Ultrasound Report [id number] #1.00CD:127 Normal [facility] Operative Reporton Operative Report [id number] 7#1.00CD:127 [facility] Provider Letteron 11-14-2022 Provider Letter November 14, 2022 NEEL GARCIA [address] [place] [address] : 1980 To Whom It May Concern, [...] Constantino Martinez M.D., F.A.C.S. [facility] [address] [place] [address] [facility] RAD - Ultrasound Reporton RAD - Ultrasound Report [id number] #1.00CD:127 [facility] Physician Referralon 023 Physician Referral [id number] #1.00CD:127 [facility] Screenson 11-02-2022 Screens [id number] 8#1.00CD:127 [facility] Pre-Certification Formon Pre-Certification Form [id number] 08#1.00CD:127 [facility] Ambulatory Visit Summaryon 0 10-30-2022 Ambulatory Visit [...] AMELIE ESPARZA PA-C Where: [facility] Consent for Procedure/Surger yon 10-30-2022 Consent for Procedure/Surgery [id number] #1.00CD:127 [facility] HERPES SIMPLEX VIRUS (HSV) C ULTUREon 06-05-2022 HSV Culture/Type Comment Normal [facility] Comment on above: Result Comment: Nega tive No Herpes simplex virus isolated. Performed By: #### I NFLUAB #### [facility] [address] [place] [address] Dr. Cherie Dior CBC AUTO DIFFon 02-08-2023 BASO # 0.1 103/ul Normal 0.0-0.1 [facility] Comment on above: Performed By: #### I NFLUAB #### [facility] [address] [place] [address] Dr. Cherie Dior Basophils/100 WBC (Bld) 1.2 % Normal 0.2-2.0 [facility] Comment on above: Performed By: #### I NFLUAB #### [facility] [address] [place] [address] Dr. Cherie Dior EO # 0.1 103/ul Normal 0.0-0.7 [facility] Comment on above: Performed By: #### I NFLUAB #### [facility] [address] [place] [address] Dr. Cherie Dior Eosinophils/100 WBC (Bld) 1.9 % Normal 0.9-7.0 [facility] Comment on above: Performed By: #### I NFLUAB #### [facility] [address] [place] [address] Dr. Cherie Dior Erythrocyte distribution width (RBC) [Ratio] 14.9 % Normal 11.0-15.0 [facility] Comment on above: Performed By: #### I NFLUAB #### [facility] [address] [place] [address] Dr. Cherie Dior Hematocrit (Bld) [Volume fraction] 40.7 % Normal 36.0-48.0 [facility] Comment on above: Performed By: #### I NFLUAB #### [facility] [address] [place] [address] Dr. Cherie Dior Hemoglobin (Bld) [Mass/Vol] 12.8 g/dL Normal 12.0-16.0 [facility] Comment on above: Performed By: #### I NFLUAB #### [facility] [address] [place] [address] Dr. Cherie Dior IG # 0.05 10e3/ul Critically high 0.00-0.03 [facility] Comment on above: Performed By: #### I NFLUAB #### [facility] [address] [address] [address] Cherie Dior IG % 1.2 % Critically high 0.0-0.[address] [facility] Comment on above: Performed By: #### I NFLUAB #### [facility] [address] [place] [address] Dr. Cherie Dior LYMPH # 0.9 103/ul Critically low 1.2-3.8 [facility] Comment on above: Performed By: #### I NFLUAB #### [facility] [address] [place] [address] Dr. Cherie Dior Lymphocytes/100 WBC (Bld) 21.8 % Normal 20.5-60.0 [facility] Comment on above: Performed By: #### I NFLUAB #### [facility] [address] [place] [address] Dr. Cherie Dior MANUAL DIFF REQ NO Normal [facility] Comment on above: Performed By: #### I NFLUAB #### [facility] [address] [place] [address] Dr. Cherie Dior MCH (RBC) [Entitic mass] 27.4 pg Normal 26.7-34.0 [facility] Comment on above: Performed By: #### I NFLUAB #### [facility] [address] [place] [address] Dr. Cherie Dior MCHC (RBC) [Mass/Vol] 31.4 g/dL Normal 29.9-35.2 [facility] Comment on above: Performed By: #### I NFLUAB #### [facility] [address] [place] [address] Dr. Cherie Dior MCV (RBC) [Entitic vol] 87.0 fL Normal 81.0-99.0 [facility] Comment on above: Performed By: #### I NFLUAB #### [facility] [address] [place] [address] Dr. Cherie Dior MONO # 0.7 103/ul Normal 0.3-0.8 [facility] Comment on above: Performed By: #### I NFLUAB #### [facility] [address] [place] [address] Dr. Cherie Dior Monocytes/100 WBC (Bld) 16.6 % Critically high 1.7-12.0 [facility] Comment on above: Performed By: #### I NFLUAB #### [facility] [address] [place] [address] Dr. Cherie Dior NEUT # 2.5 103/ul Normal 1.4-6.5 [facility] Comment on above: Performed By: #### I NFLUAB #### [facility] [address] [place] [address] Dr. Cherie Dior Neutrophils/100 WBC (Bld) 57.3 % Normal 43.0-75.0 [facility] Comment on above: Performed By: #### I NFLUAB #### [facility] [address] [place] [address] Dr. Cherie Dior Platelet mean volume (Bld) [Entitic vol] 10.2 fL Normal 9.5-13.5 [facility] Comment on above: Performed By: #### I NFLUAB #### [facility] [address] [place] [address] Dr. Cherie Dior PLT 278 103/ul Normal 150-450 [facility] Comment on above: Performed By: #### I NFLUAB #### [facility] [address] [place] [address] Dr. Cherie Dior RBC 4.68 106/ul Normal 4.20-5.40 [facility] Comment on above: Performed By: #### I NFLUAB #### [facility] [address] [place] [address] Dr. Cherie Dior WBC 4.3 103/ul Normal 4.0-11.0 [facility] Comment on above: Performed By: #### I NFLUAB #### [facility] [address] [place] [address] Dr. Cherie Dior CULTURE URINEon 05-30-2022 CULTURE URINE Culture Observations: NO GROWTH. Normal [facility] Comment on above: Performed By: #### I NFLUAB #### [facility] [address] [address] [address] Cherie Dior UA (CLEAN/CATCH) INTEGRATION SPECIALIST/MICRO I F IND.on 05-30-2022 Bilirubin Ql (U) Negative Normal NEGATIVE [facility] Comment on above: Performed By: #### B AGING BOX HAND, CMADM, CMP #### [facility] [address] [address] [address] Cherie Dior Clarity (U) CLEAR Normal CLEAR [facility] Comment on above: Performed By: #### B AGING BOX HAND, CMADM, CMP #### [facility] [address] [place] [address] Dr. Cherie Dior Color (U) LT. YELLOW Normal YELLOW [facility] Comment on above: Performed By: #### B AGING BOX HAND, CMADM, CMP #### [facility] [address] [place] [address] Dr. Cherie Dior Glucose Ql (U) Negative Normal NEGATIVE [facility] Comment on above: Performed By: #### B AGING BOX HAND, CMADM, CMP #### [facility] [address] [place] [address] Dr. Cherie Dior Hemoglobin Ql (U) LARGE Abnormal NEGATIVE [facility] Comment on above: Performed By: #### B AGING BOX HAND, CMADM, CMP #### [facility] [address] [place] [address] Dr. Cherie Dior Ketones Ql (U) TRACE Abnormal NEGATIVE [facility] Comment on above: Performed By: #### B AGING BOX HAND, CMADM, CMP #### [facility] [address] [address] [address] Cherie Dior LEUKOCYTES MODERATE Abnormal NEGATIVE [facility] Comment on above: Performed By: #### B AGING BOX HAND, CMADM, CMP #### [facility] [address] [place] [address] Dr. Cherie Dior Nitrite Ql (U) Negative Normal NEGATIVE [facility] Comment on above: Performed By: #### B AGING BOX HAND, CMADM, CMP #### [facility] [address] [place] [address] Dr. Cherie Dior pH (U) 6.0 [pH] Normal 5-9 [facility] Comment on above: Performed By: #### B AGING BOX HAND, CMADM, CMP #### [facility] [address] [address] [address] Cherie Dior SPEC GRAVITY 1.020 Normal 1.005-<=1.[address] [facility] Comment on above: Performed By: #### B AGING BOX HAND, CMADM, CMP #### [facility] [address] [address] [address] Cherie Dior UA PROTEIN 30 mg/dl Abnormal NEGATIVE/ TRACE [facility] Comment on above: Performed By: #### B AGING BOX HAND, CMADM, CMP #### [facility] [address] [address] [address] Cherie Dior UR MICRO IND INDICATED Normal [facility] Comment on above: Performed By: #### B AGING BOX HAND, CMADM, CMP #### [facility] [facility] [address] [place] [address] Dr. Cherie Dior Urobilinogen Qn (U) 0.2 {Del'U}/dL Normal 0.2 - 1. 0 [facility] Comment on above: Performed By: #### B AGING BOX HAND, CMADM, CMP #### [facility] [address] [place] [address] Dr. Cherie Dior URINE MICROSCOPIC ONLYon BACTERIA SMALL Abnormal NONE SEEN [facility] Comment on above: Performed By: #### B AGING BOX HAND, CMADM, CMP #### [facility] [address] [place] [address] Dr. Cherie Dior Bacteria identified Cx Nom (U) INDICATED Normal [facility] Comment on above: Performed By: #### B AGING BOX HAND, CMADM, CMP #### [facility] [address] [address] [address] Cherie Dior CAST NONE SEEN Normal NONE SEEN [facility] Comment on above: Performed By: #### B AGING BOX HAND, CMADM, CMP #### [facility] [address] [address] [address] Cherie Dior Crystals LM Nom (Urine sed) NONE SEEN Normal NONE SEEN The [facility] Comment on above: Performed By: #### B AGING BOX HAND, CMADM, CMP #### [facility] [address] [place] [address] Dr. Cherie Dior Epithelial cells LM Ql (Urine sed) MODERATE Abnormal NONE SEEN /RARE [facility] Comment on above: Performed By: #### B AGING BOX HAND, CMADM, CMP #### [facility] [address] [place] [address] Dr. Cherie Dior MUCOUS TRACE Abnormal NONE SEEN The [facility] Comment on above: Performed By: #### B AGING BOX HAND, CMADM, CMP #### [facility] [address] [place] [address] Dr. Cherie Dior RBC 2-5 Abnormal 0-2 [facility] Comment on above: Performed By: #### B AGING BOX HAND, CMADM, CMP #### [facility] [address] [place] [address] Dr. Cherie Dior WBC 2-5 Abnormal NONE SEEN The [facility] Comment on above: Performed By: #### B AGING BOX HAND, CMADM, CMP #### [facility] [address] [place] [address] Dr. Cherie Dior Covid-19 PCR ([facility])on SARS-CoV-2 (COVID-19) RNA JULEE+probe Ql (Unsp spec) Not detected Normal NOT DETECTED [facility] Comment on above: Result Comment: When diagnostic [...] for this test is supported by the [place] of Health and Human Service's declaration that [...] used). Performed By: #### I NFLUAB #### [facility] [address] [place] [address] Dr. Cherie Dior GROUP A STREP CULTUREon S. pyogenes Ag Ql (Unsp spec) Culture Observations: NEGATIVE FOR GROUP A STREPTOCOCCUS. Normal [facility] Comment on above: Performed By: #### G VISHX SSCRN #### [facility] [address] [place] [address] Dr. Cherie Dior INFLUENZA A AND B AGon 05-27 INFLUANEGH SEE BELOW Normal [facility] Comment on above: Result Comment: Nega tive for Flu A protein angiten. Infection due to Flu A cannot be ruled out. Flu A angiten in the sample may be below the detection limit of the test. Performed By: #### I NFLUAB #### [facility] [address] [place] [address] Dr. Cherie Dior INFLUBNEGH SEE BELOW Normal [facility] Comment on above: Result Comment: Nega tive for Flu B protein antigen. Infection due to Flu B cannot be ruled out. Flu B antigen in the sample may be below the detection limit of the test. Performed By: #### I NFLUAB #### [facility] [address] [place] [address] Dr. Cherie Dior INFLUENZA A AG Negative Normal NEGATIVE SEE COMMENT [facility] Comment on above: Performed By: #### I NFLUAB #### [facility] [address] [place] [address] Dr. Cherie Dior INFLUENZA B AG Negative Normal NEGATIVE SEE COMMENT [facility] Comment on above: Performed By: #### I NFLUAB #### [facility] [address] [place] [address] Dr. Cherie Dior STREPT SCREENon 05-27-2022 STREP SCREEN A Negative Normal NEGATIVE The [facility] Comment on above: Performed By: #### G RASTCX, SSCRN #### [facility] [address] [place] [address] Dr. Cherie Dior US TOMAS DOP LEG [...] by: BRYAN JONES Date: 2022-02-27 06:57 Normal [facility] BNPon 02-25-2022 Natriuretic peptide B (Bld) [Mass/Vol] 36.0 pg/mL Normal <=450.0 [facility] Comment on above: Performed By: #### B AGING BOX HAND, KAIDM, CMP #### [facility] [address] [place] [address] Dr. Cherie Dior CARDIAC ALEX ADMITon 022 CK [Catalytic activity/Vol] 150 U/L Normal 26-192 [facility] Comment on above: Performed By: #### B AGING BOX HAND, CMADM, CMP #### [facility] [address] [place] [address] Dr. Cherie Dior CK.MB [Mass/Vol] 0.43 ng/mL Normal <=3.60 [facility] Comment on above: Performed By: #### B AGING BOX HAND, KAIDM, CMP #### [facility] [address] [place] [address] Dr. Cherie Dior HSTROP 4.7 pg/mL Normal 4.0-51.3 [facility] Comment on above: Result Comment: CUT- OFF POINTS HAVE BEEN ESTABLISHED BASED ON THE FOURTH UNIVERSAL DEFINITIONS OF MYOCARDIAL INFARCTION. THE UPPER REFERENCE LIMIT (URL) OF TROPONIN, DEFINED THE 99TH PERCENTILE OF cTnI DISTRIBUTION IN A REFERENCE POPULATION, HAS BEEN CONFIRMED THE DECISION THRESHOLD FOR AK DIAGNOSIS. Performed By: #### B AGING BOX HAND, CMADM, CMP #### [facility] [address] [place] [address] Dr. Cherie Dior FRANCISCO 32 ng/mL Normal 9-82 [facility] Comment on above: Performed By: #### B AGING BOX HAND, CMADM, CMP #### [facility] [address] [place] [address] Dr. Cherie Dior CBC AUTO DIFFon 02-25-2022 BASO # 0.0 103/ul Normal 0.0-0.1 [facility] Comment on above: Performed By: #### B AGING BOX HAND, CMADM, CMP #### [facility] [address] [address] [address] Cherie Dior Basophils/100 WBC (Bld) 0.4 % Normal 0.2-2.0 [facility] Comment on above: Performed By: #### B AGING BOX HAND, CMADM, CMP #### [facility] [address] [address] [address] Cherie Dior EO # 0.2 103/ul Normal 0.0-0.7 [facility] Comment on above: Performed By: #### B AGING BOX HAND, CMADM, CMP #### [facility] [address] [place] [address] Dr. Cherie Dior Eosinophils/100 WBC (Bld) 1.8 % Normal 0.9-7.0 [facility] Comment on above: Performed By: #### B AGING BOX HAND, CMADM, CMP #### [facility] [address] [place] [address] Dr. Cherie Dior Erythrocyte distribution width (RBC) [Ratio] 12.6 % Normal 11.0-15.0 [facility] Comment on above: Performed By: #### B AGING BOX HAND, CMADM, CMP #### [facility] [address] [place] [address] Dr. Cherie Dior Hematocrit (Bld) [Volume fraction] 32.9 % Critically low 36.0-48.0 [facility] Comment on above: Performed By: #### B AGING BOX HAND, CMADM, CMP #### [facility] [address] [address] [address] Cherie Dior Hemoglobin (Bld) [Mass/Vol] 10.5 g/dL Critically low 12.0-16.0 [facility] Comment on above: Performed By: #### B AGING BOX HAND, CMADM, CMP #### [facility] [address] [place] [address] Dr. Cherie Dior IG # 0.12 10e3/ul Critically high 0.00-0.03 [facility] Comment on above: Performed By: #### B AGING BOX HAND, CMADM, CMP #### [facility] [address] [place] [address] Dr. Cherie Dior IG % 1.4 % Critically high 0.0-0.5 [facility] Comment on above: Performed By: #### B AGING BOX HAND, CMADM, CMP #### [facility] [address] [place] [address] Dr. Cherie Dior LYMPH # 1.7 103/ul Normal 1.2-3.8 [facility] Comment on above: Performed By: #### B AGING BOX HAND, CMADM, CMP #### [facility] [address] [place] [address] Dr. Cherie Dior Lymphocytes/100 WBC (Bld) 20.1 % Critically low 20.5-60.0 [facility] Comment on above: Performed By: #### B AGING BOX HAND, CMADM, CMP #### [facility] [address] [place] [address] Dr. Cherie Dior MANUAL DIFF REQ NO Normal [facility] Comment on above: Performed By: #### B AGING BOX HAND, CMADM, CMP #### [facility] [address] [place] [address] Dr. Cherie Dior MCH (RBC) [Entitic mass] 28.8 pg Normal 26.7-34.0 [facility] Comment on above: Performed By: #### B AGING BOX HAND, CMADM, CMP #### [facility] [address] [place] [address] Dr. Cherie Dior MCHC (RBC) [Mass/Vol] 31.9 g/dL Normal 29.9-35.2 [facility] Comment on above: Performed By: #### B AGING BOX HAND, CMADM, CMP #### [facility] [address] [place] [address] Dr. Cherie Dior MCV (RBC) [Entitic vol] 90.4 fL Normal 81.0-99.0 [facility] Comment on above: Performed By: #### B AGING BOX HAND, CMADM, CMP #### [facility] [address] [address] [address] Cherie Dior MONO # 0.9 103/ul Critically high 0.3-0.[address] [facility] Comment on above: Performed By: #### B AGING BOX HAND, CMADM, CMP #### [facility] [address] [address] [address] Cherie Dior Monocytes/100 WBC (Bld) 10.4 % Normal 1.7-12.0 [facility] Comment on above: Performed By: #### B AGING BOX HAND, CMADM, CMP #### [facility] [address] [address] [address] Cherie Dior NEUT # 5.6 103/ul Normal 1.4-6.5 [facility] Comment on above: Performed By: #### B AGING BOX HAND, CMADM, CMP #### [facility] [address] [place] [address] Dr. Cherie Dior Neutrophils/100 WBC (Bld) 65.9 % Normal 43.0-75.0 [facility] Comment on above: Performed By: #### B AGING BOX HAND, CMADM, CMP #### [facility] [address] [address] [address] Cherie Dior Platelet mean volume (Bld) [Entitic vol] 9.0 fL Critically low 9.5-13.5 [facility] Comment on above: Performed By: #### B AGING BOX HAND, CMADM, CMP #### [facility] [address] [place] [address] Dr. Cherie Dior PLT 381 103/ul Normal 150-450 [facility] Comment on above: Performed By: #### B AGING BOX HAND, CMADM, CMP #### [facility] [address] [address] [address] Cherie Dior RBC 3.64 106/ul Critically low 4.20-5.[address] [facility] Comment on above: Performed By: #### B AGING BOX HAND, CMADM, CMP #### [facility] [address] [place] [address] Dr. Cherie Dior WBC 8.4 103/ul Normal 4.0-11.0 [facility] Comment on above: Performed By: #### B DEVON, MEAGHAN, CMP #### [facility] [address] [place], [place] [address] Dr. Cherie Dior CTA CHEST WO W [...] The subdiaphragmatic abdominal organs included in the [id number] do not demonstrate any acute abnormality allowing for some fatty infiltration of the liver.. IMPRESSION: No CT evidence for acute pulmonary embolus. Electronically authenticated by: WICHO RAINEY Date: 2022-02-25 19:04 Normal [facility] D-DIMERon 02-25-2022 D-DIMER 6.44 mg/L FEU Critically high <=0.59 [facility] Comment on above: Performed By: #### B AGING BOX HAND, MEAGHAN, CMP #### [facility] [address] [place], [place] [address] Dr. Cherie Dior D-DIMER COMMENTS SEE BELOW Normal [facility] Comment on above: Result Comment: Incr [...] and generalized hospitalization. Performed By: #### B AGING BOX HANDMEAGHAN, CMP #### [facility] [address] [place] [address] Dr. Cherie Dior ER URINE PROFILEon 2 Bilirubin Ql (U) Negative Normal NEGATIVE [facility] Comment on above: Performed By: #### B AGING BOX HANDMEAGHAN, CMP #### [facility] [address] [place] [address] Dr. Cherie Dior Clarity (U) CLEAR Normal CLEAR [facility] Comment on above: Performed By: #### B MEAGHAN OSORIO, CMP #### [facility] [address] [place] [address] Dr. Cherie Dior Color (U) LT. YELLOW Normal YELLOW [facility] Comment on above: Performed By: #### B AGING BOX HANDMEAGHAN, CMP #### [facility] [address] [place] [address] Dr. Cherie Dior ERUBRITTNYD A micrscopic examination will be performed if indicated. Normal [facility] Comment on above: Performed By: #### B AGING BOX HANDKAIDM, CMP #### [facility] [address] [place] [address] Dr. Cherie Dior Glucose Ql (U) Negative Normal NEGATIVE [facility] Comment on above: Performed By: #### B AGING BOX HAND, KAIDM, CMP #### [facility] [address] [place] [address] Dr. Cherie Dior Hemoglobin Ql (U) SMALL Abnormal NEGATIVE [facility] Comment on above: Performed By: #### B AGING BOX HANDKAIDM, CMP #### [facility] [address] [place] [address] Dr. Cherie Dior Ketones Ql (U) Negative Normal NEGATIVE [facility] Comment on above: Performed By: #### B AGING BOX HAND, CMADM, CMP #### [facility] [address] [address] [address] Cherie Dior LEUKOCYTES Negative Normal NEGATIVE [facility] Comment on above: Performed By: #### B AGING BOX HAND, CMADM, CMP #### [facility] [address] [address] [address] Cherie Dior Nitrite Ql (U) Negative Normal NEGATIVE [facility] Comment on above: Performed By: #### B AGING BOX HAND, CMADM, CMP #### [facility] [address] [address] [address] Cherie Dior pH (U) 6.0 [pH] Normal 5-9 [facility] Comment on above: Performed By: #### B AGING BOX HAND, CMADM, CMP #### [facility] [address] [place] [address] Dr. Cherie Dior SPEC GRAVITY 1.020 Normal 1.005-<=1.025 [facility] Comment on above: Performed By: #### B AGING BOX HAND, CMADM, CMP #### [facility] [address] [address] [address] Cherie Dior UA PROTEIN Negative Normal NEGATIVE/ TRACE [facility] Comment on above: Performed By: #### B AGING BOX HAND, CMADM, CMP #### [facility] [address] [place] [address] Dr. Cherie Dior UR MICRO IND INDICATED Normal [facility] Comment on above: Performed By: #### B AGING BOX HAND, CMADM, CMP #### [facility] [address] [address] [address] Cherie Dior Urobilinogen Qn (U) 0.2 {Del'U}/dL Normal 0.2 - 1. 0 [facility] Comment on above: Performed By: #### B AGING BOX HAND, CMADM, CMP #### [facility] [address] [place] [address] Dr. Cherie Dior PROF 14(COMP METB)on 022 Albumin [Mass/Vol] 3.8 g/dL Normal 3.4-5.0 [facility] Comment on above: Performed By: #### B AGING BOX HAND, CMADM, CMP #### [facility] [address] [address] [address] Cherie Dior Albumin/Globulin [Mass ratio] 0.8 {ratio} Normal [facility] Comment on above: Performed By: #### B AGING BOX HAND, CMADM, CMP #### [facility] [address] [address] [address] Cherie Dior ALP [Catalytic activity/Vol] 72 U/L Normal 46-116 [facility] Comment on above: Performed By: #### B AGING BOX HAND, CMADM, CMP #### [facility] [address] [place] [address] Dr. Cherie Dior ALT [Catalytic activity/Vol] 21 U/L Normal 14-59 [facility] Comment on above: Performed By: #### B AGING BOX HAND, CMADM, CMP #### [facility] [address] [place] [address] Dr. Cherie Dior Anion gap [Moles/Vol] 10.5 mmol/L Normal [facility] Comment on above: Performed By: #### B AGING BOX HAND, CMADM, CMP #### [facility] [address] [place] [address] Dr. Cherie Dior AST [Catalytic activity/Vol] 13 U/L Critically low 15-37 [facility] Comment on above: Performed By: #### B AGING BOX HAND, CMADM, CMP #### [facility] [address] [place] [address] Dr. Cherie Dior Bilirubin [Mass/Vol] 0.5 mg/dL Normal 0.2-1.0 [facility] Comment on above: Performed By: #### B AGING BOX HAND, CMADM, CMP #### [facility] [address] [place] [address] Dr. Cherie Dior Calcium [Mass/Vol] 9.0 mg/dL Normal 8.5-10.1 [facility] Comment on above: Performed By: #### B AGING BOX HAND, CMADM, CMP #### [facility] [address] [place] [address] Dr. Cherie Dior Chloride [Moles/Vol] 104 mmol/L Normal 98-107 [facility] Comment on above: Performed By: #### B AGING BOX HAND, KAIDM, CMP #### [facility] [address] [address] [address] Cherie Dior CO2 [Moles/Vol] 25.3 mmol/L Normal 21.0-32.0 [facility] Comment on above: Performed By: #### B AGING BOX HAND, CMADM, CMP #### [facility] [address] [address] [address] Cherie Dior Creatinine [Mass/Vol] 0.86 mg/dL Normal 0.55-1.02 [facility] Comment on above: Performed By: #### B AGING BOX HAND, KAIDM, CMP #### [facility] [address] [address] [address] Cherie Dior EGFR-AF SWEDISH >60 Normal >=60 [facility] Comment on above: Performed By: #### B AGING BOX HAND, CMADM, CMP #### [facility] [address] [address] [address] Cherie Dior EGFR-NON AF SWEDISH >60 Normal >=60 [facility] Comment on above: Performed By: #### B AGING BOX HAND, KAIDM, CMP #### [facility] [address] [address] [address] Cherie Dior Globulin (S) [Mass/Vol] 4.5 g/dL Normal [facility] Comment on above: Performed By: #### B AGING BOX HAND, KAIDM, CMP #### [facility] [address] [address] [address] Cherie Dior Glucose [Mass/Vol] 85 mg/dL Normal 74-106 [facility] Comment on above: Performed By: #### B AGING BOX HAND, CMADM, CMP #### [facility] [address] [address] [address] Cherie Dior Potassium [Moles/Vol] 3.8 mmol/L Normal 3.5-5.1 [facility] Comment on above: Performed By: #### B AGING BOX HAND, CMADM, CMP #### [facility] [address] [place] [address] Dr. Cherie Dior Protein [Mass/Vol] 8.3 g/dL Critically high 6.4-8.2 [facility] Comment on above: Performed By: #### B AGING BOX HAND, KAIDM, CMP #### [facility] [address] [place] [address] Dr. Cherie Dior Sodium [Moles/Vol] 136 mmol/L Normal 136-145 [facility] Comment on above: Performed By: #### B AGING BOX HAND, CMADM, CMP #### [facility] [address] [place] [address] Dr. Cherie Dior Urea nitrogen [Mass/Vol] 14.0 mg/dL Normal 7.0-18.0 [facility] Comment on above: Performed By: #### B AGING BOX HAND, MEAGHAN, CMP #### [facility] [address] [place] [address] Dr. hCerie Dior Urea nitrogen/Creatinine [Mass ratio] 16.3 mg/mg Normal [facility] Comment on above: Performed By: #### B AGING BOX HAND, MEAGHAN, CMP #### [facility] [address] [place] [address] Dr. Cherie Dior PROTIMEon 02-25-2022 INR Coag (PPP) [Relative time] 0.97 {INR} Normal [facility] Comment on above: Performed By: #### B AGING BOX HAND, MEAGHAN, CMP #### [facility] [address] [place] [address] Dr. Cherie Dior INR GUIDELINES SEE BELOW Normal [facility] Comment on above: Result Comment: JORDEN RED INR: 2.0 - 3.0 CONDITIONS NOT LISTED BELOW 2.5 - 3.5 FOR PROSTHETIC HEART VALVE REPLACEMENT 2.5 - 3.5 RECURRENT THROMBOSIS Performed By: #### B AGING BOX HAND, CMADM, CMP #### [facility] [address] [place] [address] Dr. Cherie Dior PT Coag (PPP) [Time] 10.5 s Normal 9.0-11.6 [facility] Comment on above: Performed By: #### B AGING BOX HAND, CMADM, CMP #### [facility] [address] [address] [address] Cherie Dior PTTon 02-25-2022 aPTT Coag (Bld) [Time] 29.1 s Normal 22.3-36.2 Th e [facility] Comment on above: Performed By: #### B AGING BOX HAND, CMADM, CMP #### [facility] [address] [place] [address] Dr. Cherie Dior URINE MICROSCOPIC ONLYon BACTERIA NONE SEEN Normal NONE SEEN [facility] Comment on above: Performed By: #### B AGING BOX HAND, CMADM, CMP #### [facility] [address] [place] [address] Dr. Cherie Dior Bacteria identified Cx Nom (U) NOT INDICATED Normal [facility] Comment on above: Performed By: #### B AGING BOX HAND, CMADM, CMP #### [facility] [address] [place] [address] Dr. Cherie Dior CAST NONE SEEN Normal NONE SEEN [facility] Comment on above: Performed By: #### B AGING BOX HAND, CMADM, CMP #### [facility] [address] [place] [address] Dr. Cherie Dior Crystals LM Nom (Urine sed) NONE SEEN Normal NONE SEEN [facility] Comment on above: Performed By: #### B AGING BOX HAND, CMADM, CMP #### [facility] [address] [place] [address] Dr. Cherie Dior Epithelial cells LM Ql (Urine sed) FEW Abnormal NONE SEEN /RARE [facility] Comment on above: Performed By: #### B AGING BOX HAND, CMADM, CMP #### [facility] [address] [place] [address] Dr. Cherie Dior MUCOUS TRACE Abnormal NONE SEEN [facility] Comment on above: Performed By: #### B AGING BOX HAND, CMADM, CMP #### [facility] [address] [place] [address] Dr. Cherie Dior RBC 5-10 Abnormal 0-2 [facility] Comment on above: Performed By: #### B AGING BOX HAND, CMADM, CMP #### [facility] [address] [place] [address] Dr. Cherie Dior WBC NONE SEEN Normal NONE SEEN [facility] Comment on above: Performed By: #### B AGING BOX HAND, CMADM, CMP #### [facility] [address] [place] [address] Dr. Cherie Dior Operative Reporton Operative Report [id number] #1.00CD:127 Normal [facility] BUNon 02-16-2022 Urea nitrogen [Mass/Vol] 9.0 mg/dL Normal 7.0-18.0 [facility] Comment on above: Performed By: #### B UN, CREA #### [facility] [address] [place] [address] Dr. Cherie Dior CBC AUTO DIFFon 02-16-2022 BASO # 0.0 103/ul Normal 0.0-0.1 [facility] Comment on above: Performed By: #### C BC #### [facility] [address] [place] [address] Dr. Cherie Dior Basophils/100 WBC (Bld) 0.1 % Critically low 0.2-2.0 [facility] Comment on above: Performed By: #### C BC #### [facility] [address] [place] [address] Dr. Cherie Dior EO # 0.0 103/ul Normal 0.0-0.7 [facility] Comment on above: Performed By: #### C BC #### [facility] [address] [place] [address] Dr. Cherie Dior Eosinophils/100 WBC (Bld) 0.0 % Critically low 0.9-7.0 [facility] Comment on above: Performed By: #### C BC #### [facility] [address] [place] [address] Dr. Cherie Dior Erythrocyte distribution width (RBC) [Ratio] 12.6 % Normal 11.0-15.0 [facility] Comment on above: Performed By: #### C BC #### [facility] [address] [place] [address] Dr. Cherie Dior Hematocrit (Bld) [Volume fraction] 31.0 % Critically low 36.0-48.0 [facility] Comment on above: Performed By: #### C BC #### [facility] [address] [place] [address] Dr. Cherie Dior Hemoglobin (Bld) [Mass/Vol] 10.2 g/dL Critically low 12.0-16.0 [facility] Comment on above: Performed By: #### C BC #### [facility] [address] [place] [address] Dr. Cherie Dior IG # 0.04 10e3/ul Critically high 0.00-0.03 [facility] Comment on above: Performed By: #### C BC #### [facility] [address] [place] [address] Dr. Cherie Dior IG % 0.3 % Normal 0.0-0.5 [facility] Comment on above: Performed By: #### C BC #### [facility] [address] [place] [address] Dr. Cherie Dior LYMPH # 1.1 103/ul Critically low 1.2-3.8 [facility] Comment on above: Performed By: #### C BC #### [facility] [address] [place] [address] Dr. Cherie Dior Lymphocytes/100 WBC (Bld) 9.6 % Critically low 20.5-60.0 [facility] Comment on above: Performed By: #### C BC #### [facility] [address] [place] [address] Dr. Cherie Dior MANUAL DIFF REQ NO Normal [facility] Comment on above: Performed By: #### C BC #### [facility] [address] [place] [address] Dr. Cherie Dior MCH (RBC) [Entitic mass] 29.1 pg Normal 26.7-34.0 [facility] Comment on above: Performed By: #### C BC #### [facility] [address] [place] [address] Dr. Cherie Dior MCHC (RBC) [Mass/Vol] 32.9 g/dL Normal 29.9-35.2 [facility] Comment on above: Performed By: #### C BC #### [facility] [address] [place] [address] Dr. Cherie Dior MCV (RBC) [Entitic vol] 88.3 fL Normal 81.0-99.0 [facility] Comment on above: Performed By: #### C BC #### [facility] [address] [place] [address] Dr. Cherie Dior MONO # 1.2 103/ul Critically high 0.3-0.8 [facility] Comment on above: Performed By: #### C BC #### [facility] [address] [place] [address] Dr. Cherie Dior Monocytes/100 WBC (Bld) 9.9 % Normal 1.7-12.0 [facility] Comment on above: Performed By: #### C BC #### [facility] [address] [place] [address] Dr. Cherie Dior NEUT # 9.5 103/ul Critically high 1.4-6.5 [facility] Comment on above: Performed By: #### C BC #### [facility] [address] [place] [address] Dr. Cherie Dior Neutrophils/100 WBC (Bld) 80.1 % Critically high 43.0-75.0 [facility] Comment on above: Performed By: #### C BC #### [facility] [address] [place] [address] Dr. Cherie Dior Platelet mean volume (Bld) [Entitic vol] 9.5 fL Normal 9.5-13.5 [facility] Comment on above: Performed By: #### C BC #### [facility] [address] [place] [address] Dr. Cherie Dior PLT 225 103/ul Normal 150-450 [facility] Comment on above: Performed By: #### C BC #### [facility] [address] [place] [address] Dr. Cherie Dior RBC 3.51 106/ul Critically low 4.20-5.40 [facility] Comment on above: Performed By: #### C BC #### [facility] [address] [place] [address] Dr. Cherie Dior WBC 11.8 103/ul Critically high 4.0-11.0 [facility] Comment on above: Performed By: #### C BC #### [facility] [address] [place] [address] Dr. Cherie Dior CREATININEon 02-16-2022 Creatinine [Mass/Vol] 0.98 mg/dL Normal 0.55-1.02 [facility] Comment on above: Performed By: #### B UN, CREA #### [facility] [address] [place] [address] Dr. Cherie Dior EGFR-AF SWEDISH >60 Normal >=60 [facility] Comment on above: Performed By: #### B UN, CREA #### [facility] [address] [place] [address] Dr. Cherie Dior EGFR-NON AF SWEDISH >60 Normal >=60 [facility] Comment on above: Performed By: #### B UN, CREA #### [facility] [address] [place] [address] Dr. Cherie Dior PREG HCG QUALon 02-15-2022 , QUAL Negative Normal NEGATIVE [facility] Comment on above: Performed By: #### I NFLUAB #### [facility] [address] [place] [address] Dr. Cherie Dior Consent for Procedure/Surger yon 02-14-2022 Consent for Procedure/Surgery [id number] #1.00CD:127 Normal [facility] CBC AUTO DIFFon 02-12-2022 BASO # 0.0 103/ul Normal 0.0-0.1 [facility] Comment on above: Performed By: #### B AGING BOX HAND, CMADM, CMP #### [facility] [address] [place] [address] Dr. Cherie Dior Basophils/100 WBC (Bld) 0.6 % Normal 0.2-2.0 [facility] Comment on above: Performed By: #### B AGING BOX HAND, CMADM, CMP #### [facility] [address] [place] [address] Dr. Cherie Dior EO # 0.1 103/ul Normal 0.0-0.7 [facility] Comment on above: Performed By: #### B AGING BOX HAND, CMADM, CMP #### [facility] [address] [place] [address] Dr. Cherie Dior Eosinophils/100 WBC (Bld) 4.0 % Normal 0.9-7.0 [facility] Comment on above: Performed By: #### B AGING BOX HAND, CMADM, CMP #### [facility] [address] [place] [address] Dr. Cherie Dior Erythrocyte distribution width (RBC) [Ratio] 12.9 % Normal 11.0-15.0 [facility] Comment on above: Performed By: #### B AGING BOX HAND, CMADM, CMP #### [facility] [address] [place] [address] Dr. Cherie Dior Hematocrit (Bld) [Volume fraction] 38.8 % Normal 36.0-48.0 [facility] Comment on above: Performed By: #### B AGING BOX HAND, CMADM, CMP #### [facility] [address] [place] [address] Dr. Cherie Dior Hemoglobin (Bld) [Mass/Vol] 12.6 g/dL Normal 12.0-16.0 [facility] Comment on above: Performed By: #### B AGING BOX HAND, CMADM, CMP #### [facility] [address] [place] [address] Dr. Cherie Dior IG # 0.00 10e3/ul Normal 0.00-0.03 [facility] Comment on above: Performed By: #### B AGING BOX HAND, CMADM, CMP #### [facility] [address] [place] [address] Dr. Cherie Dior IG % 0.0 % Normal 0.0-0.5 [facility] Comment on above: Performed By: #### B AGING BOX HAND, CMADM, CMP #### [facility] [address] [address] [address] Cherie Dior LYMPH # 1.3 103/ul Normal 1.2-3.8 [facility] Comment on above: Performed By: #### B AGING BOX HAND, CMADM, CMP #### [facility] [address] [address] [address] Cherie Dior Lymphocytes/100 WBC (Bld) 36.5 % Normal 20.5-60.0 [facility] Comment on above: Performed By: #### B AGING BOX HAND, CMADM, CMP #### [facility] [address] [address] [address] Cherie Dior MANUAL DIFF REQ NO Normal [facility] Comment on above: Performed By: #### B AGING BOX HAND, CMADM, CMP #### [facility] [address] [place] [address] Dr. Cherie Dior MCH (RBC) [Entitic mass] 29.4 pg Normal 26.7-34.0 [facility] Comment on above: Performed By: #### B AGING BOX HAND, CMADM, CMP #### [facility] [address] [place] [address] Dr. Cherie Dior MCHC (RBC) [Mass/Vol] 32.5 g/dL Normal 29.9-35.2 [facility] Comment on above: Performed By: #### B AGING BOX HAND, CMADM, CMP #### [facility] [address] [place] [address] Dr. Cherie Dior MCV (RBC) [Entitic vol] 90.7 fL Normal 81.0-99.0 [facility] Comment on above: Performed By: #### B AGING BOX HAND, CMADM, CMP #### [facility] [address] [address] [address] Cherie Dior MONO # 0.5 103/ul Normal 0.3-0.8 [facility] Comment on above: Performed By: #### B AGING BOX HAND, CMADM, CMP #### [facility] [address] [place] [address] Dr. Cherie Dior Monocytes/100 WBC (Bld) 12.9 % Critically high 1.7-12.0 [facility] Comment on above: Performed By: #### B AGING BOX HAND, CMADM, CMP #### [facility] [address] [place] [address] Dr. Cherie Dior NEUT # 1.6 103/ul Normal 1.4-6.5 [facility] Comment on above: Performed By: #### B AGING BOX HAND, CMADM, CMP #### [facility] [address] [place] [address] Dr. Cherie Dior Neutrophils/100 WBC (Bld) 46.0 % Normal 43.0-75.0 [facility] Comment on above: Performed By: #### B AGING BOX HAND, CMADM, CMP #### [facility] [address] [place] [address] Dr. Cherie Dior Platelet mean volume (Bld) [Entitic vol] 9.8 fL Normal 9.5-13.5 [facility] Comment on above: Performed By: #### B AGING BOX HAND, CMADM, CMP #### [facility] [address] [place] [address] Dr. Cherie Dior PLT 202 103/ul Normal 150-450 [facility] Comment on above: Performed By: #### B AGING BOX HAND, CMADM, CMP #### [facility] [address] [place] [address] Dr. Cherie Dior RBC 4.28 106/ul Normal 4.20-5.40 [facility] Comment on above: Performed By: #### B AGING BOX HAND, CMADM, CMP #### [facility] [address] [place] [address] Dr. Cherie Dior WBC 3.5 103/ul Critically low 4.0-11.0 [facility] Comment on above: Performed By: #### B AGING BOX HAND, CMADM, CMP #### [facility] [address] [place] [address] Dr. Cherie Dior [facility] SARS-CoV-2 (COVID-19) RNA JULEE+probe Ql (Unsp spec) Not detected Normal NOT DETECTED [facility] Comment on above: Result Comment: This test is not yet approved or cleared by the [place] FDA. When there are no FDA-approved or cleared tests available, and other criteria are met, FDA can make tests available under an emergency access mechanism called an Emergency Use Authorization (EUA). The EUA for this test is supported by the [place] of Health and Human Service's (HHS's) declaration [...] consistent with SARS-CoV-2. Performed By: #### B AGING BOX HAND, CMADM, CMP #### [facility] [address] [place] [address] Dr. Cherie Dior PROF CHEM 8 (BAS METB)on Anion gap [Moles/Vol] 7.5 mmol/L Normal [facility] Comment on above: Performed By: #### B MP #### [facility] [address] [place] [address] Dr. Cherie Dior Calcium [Mass/Vol] 8.4 mg/dL Critically low 8.5-10.1 [facility] Comment on above: Performed By: #### B MP #### [facility] [address] [place] [address] Dr. Cherie Dior Chloride [Moles/Vol] 106 mmol/L Normal 98-107 [facility] Comment on above: Performed By: #### B MP #### [facility] [address] [place] [address] Dr. Cherie Dior CO2 [Moles/Vol] 28.3 mmol/L Normal 21.0-32.0 [facility] Comment on above: Performed By: #### B MP #### [facility] [address] [place] [address] Dr. Cherie Dior Creatinine [Mass/Vol] 0.81 mg/dL Normal 0.55-1.02 [facility] Comment on above: Performed By: #### B MP #### [facility] [address] [address] [address] Cherie Dior EGFR-AF SWEDISH >60 Normal >=60 [facility] Comment on above: Performed By: #### B MP #### [facility] [address] [address] [address] Cherie Dior EGFR-NON AF SWEDISH >60 Normal >=60 [facility] Comment on above: Performed By: #### B MP #### [facility] [address] [address] [address] Cherie Dior Glucose [Mass/Vol] 75 mg/dL Normal 74-106 [facility] Comment on above: Performed By: #### B MP #### [facility] [address] [address] [address] Cherie Dior Potassium [Moles/Vol] 3.8 mmol/L Normal 3.5-5.1 [facility] Comment on above: Performed By: #### B MP #### [facility] [address] [address] [address] Cherie Dior Sodium [Moles/Vol] 138 mmol/L Normal 136-145 [facility] Comment on above: Performed By: #### B MP #### [facility] [address] [address] [address] Cherie Dior Urea nitrogen [Mass/Vol] 8.0 mg/dL Normal 7.0-18.0 [facility] Comment on above: Performed By: #### B MP #### [facility] [address] [address] [address] Cherie Dior Urea nitrogen/Creatinine [Mass ratio] 9.9 mg/mg Normal [facility] Comment on above: Performed By: #### B MP #### [facility] [address] [address] [address] Cherie Dior PROTIMEon 02-12-2022 INR Coag (PPP) [Relative time] 0.97 {INR} Normal [facility] Comment on above: Performed By: #### B AGING BOX HAND, MEAGHAN, CMP #### [facility] [address] [place] [address] Dr. Cherie Dior INR GUIDELINES SEE BELOW Normal [facility] Comment on above: Result Comment: JORDEN RED INR: 2.0 - 3.0 CONDITIONS NOT LISTED BELOW 2.5 - 3.5 FOR PROSTHETIC HEART VALVE REPLACEMENT 2.5 - 3.5 RECURRENT THROMBOSIS Performed By: #### B AGING BOX HAND, MEAGHAN, CMP #### [facility] [address] [place] [address] Dr. Cherie Dior PT Coag (PPP) [Time] 10.5 s Normal 9.0-11.6 [facility] Comment on above: Performed By: #### B AGING BOX HAND, MEAGHAN, CMP #### [facility] [address] [place] [address] Dr. Cherie Dior PTTon 02-12-2022 aPTT Coag (Bld) [Time] 25.1 s Normal 22.3-36.2 [facility] Comment on above: Performed By: #### B MEAGHAN OSORIO, CMP #### [facility] [address] [place] [address] Dr. Cherie Dior TYPE AND SCREENon 02-12-2022 TYPE AND SCREEN Negative Normal [facility] Comment on above: Performed By: #### I NFLUAB #### [facility] [address] [place] [address] Dr. Cherie Dior Physician Referralon 022 Physician Referral [id number] #[id number]:127 Normal [facility] PREG HCG QUALon 01-05-2022 , QUAL Negative Normal NEGATIVE [facility] Comment on above: Performed By: #### B AGING BOX HANDMEAGHAN, CMP #### [facility] [address] [place] [address] Dr. Cherie Dior MG MAMM SCREEN 3D ARJUN CADon 01-02-2022 MG MAMM SCREEN 3D ARJUN CAD Patient: NEEL GARCIA Exam Date: 01/02/2022 : 1980 Gender:F Ordering : DR INGRID DE LOS [place]ANTOS . Admission #: [id number] Family : Order #: [id number] CLICK HERE TO VIEW EXAM RADIOLOGY REPORT PROCEDURE: MAMMOGRAM SCREENING 3D BILATERAL CAD COMPARISON: MG MAMM SCREEN ARJUN W CAD, 07/29/2018. INDICATIONS: Screening mammography Calculator Name NCI Breast Cancer Risk Assessment Tool 5 Year Breast Cancer Risk Not Reported. Lifetime Breast Cancer Risk Not Reported. Personal Breast Cancer No Personal Ovarian Cancer No Treatments None Family Cancers None LOCATION: [facility] BREAST COMPOSITION: Heterogeneously dense,which may obscure small [...] MD on 01/02/2022 at 11:25 Normal [facility] Covid-19 PCR (CVDTBH)on SARS-CoV-2 (COVID-19) RNA JULEE+probe Ql (Unsp spec) Not detected Normal NOT DETECTED [facility] Comment on above: Result Comment: This test is not yet approved or cleared by the [place] FDA. When there are no FDA-approved or cleared tests available, and other criteria are met, FDA can make tests available under an emergency access mechanism called an Emergency Use Authorization (EUA). The EUA for this test is supported by the [place] of Health and Human Service's (HHS's) declaration [...] SARS-CoV-2. Performed By: #### I NFLUAB #### [facility] [address] [place], [place] [address] Dr. Cherie Dior US PELVIS AND TRANSVAGon [...] by: AUSTIN MCGUIRE Date: 2021-12-20 11:02 Normal [facility] PAP ACOG PANEL 2: 30 to 65on 12-19-2021 . . Normal [facility] Comment on above: Result Comment: Perf ormed at: WB Performed By: #### B AGING BOX HAND, MEAGHAN, CMP #### [facility] [address] [place] [address] [address] [address] Cherie Dior Age Gdln ACOG Testing 30-65 Normal [facility] Comment on above: Performed By: #### B AGING BOX HAND, CMADM, CMP #### [facility] [address] [place], [place] [address] Dr. Cherie Dior DIAGNOSIS: Comment Normal [facility] Comment on above: Result Comment: NEGA TIVE FOR INTRAEPITHELIAL LESION OR MALIGNANCY. Performed at: WB Performed By: #### B AGING BOX HAND, CMADM, CMP #### [facility] [address] [address] [address] Cherie Dior HPV Aptima Negative Normal Negative [facility] Comment on above: Result Comment: This nucleic acid amplification test detects fourteen high-risk HPV types (16,18,31,33,35,39,45,51,52,56,58,59,66,68) without differentiation. Performed at: =G Performed By: #### B AGING BOX HAND, CMADM, CMP #### [facility] [address] [address] [address] Cherie Dior Methodology: Comment Normal [facility] Comment on above: Result Comment: This liquid based ThinPrep(R) pap test was screened with the use of an image guided system. Performed at: WB Performed By: #### B AGING BOX HAND, CMADM, CMP #### [facility] [address] [address] [address] Cherie Dior Note: Comment Normal [facility] Comment on above: Result Comment: The Pap smear is a screening test designed to aid in the detection of premalignant and malignant conditions of the uterine cervix. It is not a diagnostic procedure and should not be used as the sole means of detecting cervical cancer. Both false-positive and false-negative reports do occur. . Performed at: WB Performed By: #### B AGING BOX HAND, CMADM, CMP #### [facility] [address] [address] [address] Cherie Dior Performed by: Comment Normal [facility] Comment on above: Result Comment: Griselda Drummond, Suction Roller (ASCP) Performed at: WB Performed By: #### B AGING BOX HAND, CMADM, CMP #### [facility] [address] [address] [address] Cherie Dior Specimen adequacy: Comment Normal [facility] Comment on above: Result Comment: Sati sfactory for evaluation. Endocervical and/or squamous metaplastic cells (endocervical component) are present. Performed at: WB Performed By: #### B AGING BOX HAND, CMADM, CMP #### [facility] [address] [address] [address] Cherie Jurado 11-14-2021 PREM Telephone (HEMASA) NEEL GARCIA ([id number]) 1980 F Date Time Provider Department 11/14/21 JIAN DE LA CRUZ During your visit today, we recorded the following information about you: Jian De La Cruz RN 11/14/2021 3:15 PM Signed ----- Message from Alina Barros RN sent at 11/13/2021 1:26 PM EDT ----- ----- Message ----- From: Nehemias Ward MD Sent: 11/11/2021 6:10 AM EDT To: Alina Barros RN [facility] Can you please call pt [...] JIAN DE LA CRUZ on 11/14/21 Normal [facility] CBC W Auto Differential pane l (Bld)on 11-10-2021 Basophils (Bld) [#/Vol] 0.03 10*3/uL Normal <0.11 [facility] Comment on above: Order Comment: Speci men Type: BLOOD SPECIMENOrdering Facility: [facility] Address: [address] [place] [address] Performed By: #### 5 7021-8 ####[facility] LABCLIA [id number] [place] [address] Basophils/100 WBC (Bld) 0.9 % Normal [facility] Comment on above: Order Comment: Speci men Type: BLOOD SPECIMENOrdering Facility: [facility] Address: [address] [place] [address] Performed By: #### 5 7021-8 ####[facility] LABCLIA [id number] [place] [address] Differential cell count method Nom (Bld) Auto Normal [facility] Comment on above: Order Comment: Speci men Type: BLOOD SPECIMENOrdering Facility: [facility] Address: [address] [place] [address] Performed By: #### 5 7021-8 ####[facility] LABCLIA [id number] [place] [address] Eosinophils (Bld) [#/Vol] 0.14 10*3/uL Normal <0.46 [facility] Comment on above: Order Comment: Speci men Type: BLOOD SPECIMENOrdering Facility: [facility] Address: [address] [place] [address] Performed By: #### 5 7021-8 ####[facility] LABCLIA [id number] [place] [address] Eosinophils/100 WBC (Bld) 4.2 % Normal [facility] Comment on above: Order Comment: Speci men Type: BLOOD SPECIMENOrdering Facility: [facility] Address: [address] [place] [address] Performed By: #### 5 7021-8 ####[facility] LABCLIA [id number] [place] [address] Erythrocyte distribution width (RBC) [Ratio] 15.4 % High 11.5-15.0 [facility] Comment on above: Order Comment: Speci men Type: BLOOD SPECIMENOrdering Facility: [facility] Address: [address] [place] [address] Performed By: #### 5 7021-8 ####[facility] LABCLIA [id number] [place] [address] Hematocrit (Bld) [Volume fraction] 38.0 % Normal 36.0-46.0 [facility] Comment on above: Order Comment: Speci men Type: BLOOD SPECIMENOrdering Facility: [facility] Address: [address] [place] [address] Performed By: #### 5 7021-8 ####[facility] LABIA [id number] [place] [address] Hemoglobin (Bld) [Mass/Vol] 12.0 g/dL Normal 11.5-15.5 [facility] Comment on above: Order Comment: Speci men Type: BLOOD SPECIMENOrdering Facility: [facility] Address: [address] [place] [address] Performed By: #### 5 7021-8 ####[facility] LABCLIA [id number] [place] [address] IMMATURE GRAN % 0.3 % Normal [facility] Comment on above: Order Comment: Speci men Type: BLOOD SPECIMENOrdering Facility: [facility] Address: [address] [place] [address] Performed By: #### 5 7021-8 ####[facility] LABCLIA [id number] [place] [address] IMMATURE GRAN ABS <0.03 Normal <0.10 [facility] Comment on above: Order Comment: Speci men Type: BLOOD SPECIMENOrdering Facility: [facility] Address: [address] [place] [address] Performed By: #### 5 7021-8 ####[facility] LABIA [id number] [place] [address] Lymphocytes (Bld) [#/Vol] 1.26 10*3/uL Normal 1.00-4.00 [facility] Comment on above: Order Comment: Speci men Type: BLOOD SPECIMENOrdering Facility: [facility] Address: [address] [place] [address] Performed By: #### 5 7021-8 ####[facility] LABIA [id number] [place] [address] Lymphocytes/100 WBC (Bld) 38.1 % Normal [facility] Comment on above: Order Comment: Speci men Type: BLOOD SPECIMENOrdering Facility: [facility] Address: [address] [place] [address] Performed By: #### 5 7021-8 ####[facility] LABIA [id number] [place] [address] MCH (RBC) [Entitic mass] 27.9 pg Normal 26.0-34.0 [facility] Comment on above: Order Comment: Speci men Type: BLOOD SPECIMENOrdering Facility: [facility] Address: [address] [place] [address] Performed By: #### 5 7021-8 ####[facility] LABIA [id number] [place] [address] MCHC (RBC) [Mass/Vol] 31.6 g/dL Normal 30.5-36.0 [facility] Comment on above: Order Comment: Speci men Type: BLOOD SPECIMENOrdering Facility: [facility] Address: [address] [place] [address] Performed By: #### 5 7021-8 ####[facility] LABCLIA [id number] [place] [address] MCV (RBC) [Entitic vol] 88.4 fL Normal 80.0-100.0 [facility] Comment on above: Order Comment: Speci men Type: BLOOD SPECIMENOrdering Facility: [facility] Address: [address] [place] [address] Performed By: #### 5 7021-8 ####[facility] LABCLIA [id number] [place] [address] Monocytes (Bld) [#/Vol] 0.43 10*3/uL Normal <0.87 [facility] Comment on above: Order Comment: Speci men Type: BLOOD SPECIMENOrdering Facility: [facility] Address: [address] [place] [address] Performed By: #### 5 7021-8 ####[facility] LABIA [id number] [place] [address] Monocytes/100 WBC (Bld) 13.0 % Normal [facility] Comment on above: Order Comment: Speci men Type: BLOOD SPECIMENOrdering Facility: [facility] Address: [address] [place] [address] Performed By: #### 5 7021-8 ####[facility] LABCLIA [id number] [place] [address] Neutrophils (Bld) [#/Vol] 1.44 10*3/uL Low 1.45-7.50 [facility] Comment on above: Order Comment: Speci men Type: BLOOD SPECIMENOrdering Facility: [facility] Address: [address] [place] [address] Performed By: #### 5 7021-8 ####[facility] LABCLIA [id number] [place] [address] Neutrophils/100 WBC (Bld) 43.5 % Normal [facility] Comment on above: Order Comment: Speci men Type: BLOOD SPECIMENOrdering Facility: [facility] Address: [address] [place] [address] Performed By: #### 5 7021-8 ####[facility] LABCLIA [id number] [place] [address] Nucleated RBC (Bld) [#/Vol] 10*3/uL Normal <0.01 [facility] Comment on above: Order Comment: Speci men Type: BLOOD SPECIMENOrdering Facility: [facility] Address: [address] [place] [address] Performed By: #### 5 7021-8 ####[facility] LABIA [id number] [place] [address] Nucleated RBC/100 WBC (Bld) [Ratio] 0.0 /100 WBC Normal [facility] Comment on above: Order Comment: Speci men Type: BLOOD SPECIMENOrdering Facility: [facility] Address: [address] [place] [address] Performed By: #### 5 7021-8 ####[facility] LABIA [id number] [place] [address] Platelet mean volume (Bld) [Entitic vol] 9.5 fL Normal 9.0-12.7 [facility] Comment on above: Order Comment: Speci men Type: BLOOD SPECIMENOrdering Facility: [facility] Address: [address] [place] [address] Performed By: #### 5 7021-8 ####[facility] LABIA [id number] [place] [address] Platelets (Bld) [#/Vol] 239 10*3/uL Normal 150-400 [facility] Comment on above: Order Comment: Speci men Type: BLOOD SPECIMENOrdering Facility: [facility] Address: [address] [place] [address] Performed By: #### 5 7021-8 ####[facility] [id number] [place] [address] RBC (Bld) [#/Vol] 4.30 10*6/uL Normal 3.90-5.20 [facility] Comment on above: Order Comment: Speci men Type: BLOOD SPECIMENOrdering Facility: [facility] Address: [address] [place] [address] Performed By: #### 5 7021-8 ####[facility] [id number] [place] [address] WBC (Bld) [#/Vol] 3.31 10*3/uL Low 3.70-11.00 [facility] Comment on above: Order Comment: Speci men Type: BLOOD SPECIMENOrdering Facility: [facility] Address: [address] [place] [address] Performed By: #### 5 7021-8 ####[facility] [id number] [place] [address] CNOVSPon 11-10-2021 OVS Visit (SP) Office (HEMASA) NEEL GARCIA ([id number]) 1980 F Date Time Provider Department 11/10/21 [...] provide more details. She was born in [place] and has lived in [place] in the past. She reports occasional smoking - cigars that are dipped in cognac - last use a month back. Occasional alcohol use. No other substance abuse reported. She lives with her with 5 children. She is not working now but used to work at [employer] (was laid off during -). MEDICATIONS AND [...] which included preparing to see the patient, qndu-[id number] patient care, completing clinical documentation, obtaining and/or reviewing separately obtained history, performing a medically appropriate examination, counseling and educating the patient/family/careg iver, ordering medications, tests, or pro (more content not included)... Normal [facility] Comprehensive metabolic 2000 panelon 11-10-2021 Albumin [Mass/Vol] 4.1 g/dL Normal 3.9-4.9 [facility] Comment on above: Order Comment: Speci men Type: BLOOD SPECIMENOrdering Facility: [facility] Address: [address] [place] [address] Performed By: #### 2 4323-8 ####[facility] LABCLIA [id number] [place] [address] ALP [Catalytic activity/Vol] 64 U/L Normal 34-123 [facility] Comment on above: Order Comment: Speci men Type: BLOOD SPECIMENOrdering Facility: [facility] Address: [address] [place] [address] Performed By: #### 2 4323-8 ####[facility] LABCLIA [id number] [place] [address] ALT [Catalytic activity/Vol] 26 U/L Normal 7-38 [facility] Comment on above: Order Comment: Speci men Type: BLOOD SPECIMENOrdering Facility: [facility] Address: [address] [place] [address] Performed By: #### 2 4323-8 ####[facility] LABCLIA [id number] [place] [address] Anion gap [Moles/Vol] 8 mmol/L Low 9-18 [facility] Comment on above: Order Comment: Speci men Type: BLOOD SPECIMENOrdering Facility: [facility] Address: [address] [place] [address] Performed By: #### 2 4323-8 ####[facility] LABCLIA [id number] [place] [address] AST [Catalytic activity/Vol] 22 U/L Normal 13-35 [facility] Comment on above: Order Comment: Speci men Type: BLOOD SPECIMENOrdering Facility: [facility] Address: [address] [place] [address] Performed By: #### 2 4323-8 ####[facility] LABCLIA [id number] [place] [address] Bilirubin [Mass/Vol] 0.6 mg/dL Normal 0.2-1.3 [facility] Comment on above: Order Comment: Speci men Type: BLOOD SPECIMENOrdering Facility: [facility] Address: [address] [place] [address] Performed By: #### 2 4323-8 ####[facility] LABCLIA [id number] [place] [address] Calcium [Mass/Vol] 9.3 mg/dL Normal 8.5-10.2 [facility] Comment on above: Order Comment: Speci men Type: BLOOD SPECIMENOrdering Facility: [facility] Address: [address] [place] [address] Performed By: #### 2 4323-8 ####[facility] LABCLIA [id number] [place] [address] Chloride [Moles/Vol] 107 mmol/L High 97-105 [facility] Comment on above: Order Comment: Speci men Type: BLOOD SPECIMENOrdering Facility: [facility] Address: [address] [place] [address] Performed By: #### 2 4323-8 ####[facility] LABCLIA [id number] [place] [address] CO2 [Moles/Vol] 27 mmol/L Normal 22-30 [facility] Comment on above: Order Comment: Speci men Type: BLOOD SPECIMENOrdering Facility: [facility] Address: [address] [place] [address] Performed By: #### 2 4323-8 ####[facility] LABCLIA [id number] [place] [address] Creatinine [Mass/Vol] 0.91 mg/dL Normal 0.58-0.96 [facility] Comment on above: Order Comment: Speci men Type: BLOOD SPECIMENOrdering Facility: [facility] Address: [address] [place] [address] Performed By: #### 2 4323-8 ####[facility] LABCLIA [id number] [place] [address] ESTIMATED GLOMERULAR FILTRATION RATE 80 mL/min/1.73m??? Normal >=60 [facility] Comment on above: Order Comment: Andrew parks Type: BLOOD SPECIMENOrdering Facility: [facility] Address: [address] [place] [address] Result Comment: Mari mated Glomerular Filtration Rate [...] actual GFR. Performed By: #### 2 4323-8 ####[facility] LABCLIA [id number] [place] [address] Glucose [Mass/Vol] 102 mg/dL High 74-99 [facility] Comment on above: Order Comment: Speci kasey Type: BLOOD SPECIMENOrdering Facility: [facility] Address: [address] [place] [address] Result Comment: The [place] Diabetes Association (ADA) provides guidance for cutoff [...] Standards of Medical Care in Diabetes 2016, [employer] Diabetes Association. Diabetes Care. 2016.39(Suppl 1). Performed By: #### 2 4323-8 ####[facility] LABCLIA [id number] [place] [address] Potassium [Moles/Vol] 4.0 mmol/L Normal 3.7-5.1 [facility] Comment on above: Order Comment: Speci men Type: BLOOD SPECIMENOrdering Facility: [facility] Address: [address] [place] [address] Performed By: #### 2 4323-8 ####[facility] LABCLIA [id number] [place] [address] Protein [Mass/Vol] 6.6 g/dL Normal 6.3-8.0 [facility] Comment on above: Order Comment: Speci men Type: BLOOD SPECIMENOrdering Facility: [facility] Address: [address] [place] [address] Performed By: #### 2 4323-8 ####[facility] LABCLIA [id number] [place] [address] Sodium [Moles/Vol] 142 mmol/L Normal 136-144 [facility] Comment on above: Order Comment: Speci men Type: BLOOD SPECIMENOrdering Facility: [facility] Address: [address] [place] [address] Performed By: #### 2 4323-8 ####[facility] LABCLIA [id number] [place] [address] Urea nitrogen [Mass/Vol] 13 mg/dL Normal 7-21 [facility] Comment on above: Order Comment: Speci men Type: BLOOD SPECIMENOrdering Facility: [facility] Address: [address] [place], [place] [address] Performed By: #### 2 4323-8 ####[facility] LABIA [id number] [place] [address] Ferritin SerPl-mCncon 2021 Ferritin [Mass/Vol] 198.0 ng/mL Normal 14.7-205.1 [facility] Comment on above: Order Comment: Speci men Type: BLOOD SPECIMENOrdering Facility: [facility] Address: [address] [place], [place] [address] Performed By: #### 2 276-4 ####[facility] LABIA [id number] [place] [address] [place] Iron and Iron binding capaci ty panelon 11-10-2021 Iron [Mass/Vol] 62 ug/dL Normal 41-186 [facility] Comment on above: Order Comment: Speci men Type: BLOOD SPECIMENOrdering Facility: [facility] Address: [address] [place], [place] [address] Performed By: #### 5 0190-8 ####[facility] LABIA [id number] [address] [place] [facility] Iron binding capacity [Mass/Vol] 311 ug/dL Normal 232-386 [facility] Comment on above: Order Comment: Speci men Type: BLOOD SPECIMENOrdering Facility: [facility] Address: [address] [place], [place] [address] Performed By: #### 5 0190-8 ####[facility] LABIA [id number] [address] [place] Iron/TIBC [Molar ratio] 19.9 % Normal 15.0-57.0 [facility] Comment on above: Order Comment: Speci men Type: BLOOD SPECIMENOrdering Facility: [facility] Address: [address] [place], [place] [address] Performed By: #### 5 0190-8 ####[facility] LABIA [id number] [place] [address] [place] CBC W Auto Differential pane l (Bld)on 10-06-2021 Basophils (Bld) [#/Vol] 0.04 10*3/uL Normal <0.11 [facility] Comment on above: Order Comment: Speci men Type: BLOOD SPECIMENOrdering Facility: [facility] Address: [address] [place], [place] [address] Performed By: #### 5 7021-8 ####[facility] LABCLIA [id number] [place] [address] Basophils/100 WBC (Bld) 1.0 % Normal [facility] Comment on above: Order Comment: Speci men Type: BLOOD SPECIMENOrdering Facility: [facility] Address: [address] [place] [address] Performed By: #### 5 7021-8 ####[facility] LABCLIA [id number] [place] [address] Differential cell count method Nom (Bld) Auto Normal [facility] Comment on above: Order Comment: Speci men Type: BLOOD SPECIMENOrdering Facility: [facility] Address: [address] [place] [address] Performed By: #### 5 7021-8 ####[facility] LABCLIA [id number] [place] [address] Eosinophils (Bld) [#/Vol] 0.21 10*3/uL Normal <0.46 [facility] Comment on above: Order Comment: Speci men Type: BLOOD SPECIMENOrdering Facility: [facility] Address: [address] [place] [address] Performed By: #### 5 7021-8 ####[facility] LABCLIA [id number] [place] [address] Eosinophils/100 WBC (Bld) 5.3 % Normal [facility] Comment on above: Order Comment: Speci men Type: BLOOD SPECIMENOrdering Facility: [facility] Address: [address] [place] [address] Performed By: #### 5 7021-8 ####[facility] LABCLIA [id number] [place] [address] Erythrocyte distribution width (RBC) [Ratio] 14.1 % Normal 11.5-15.0 [facility] Comment on above: Order Comment: Speci men Type: BLOOD SPECIMENOrdering Facility: [facility] Address: [address] [place] [address] Performed By: #### 5 7021-8 ####[facility] LABCLIA [id number] [place] [address] Hematocrit (Bld) [Volume fraction] 38.1 % Normal 36.0-46.0 [facility] Comment on above: Order Comment: Speci men Type: BLOOD SPECIMENOrdering Facility: [facility] Address: [address] [place] [address] Performed By: #### 5 7021-8 ####[facility] LABIA [id number] [place] [address] Hemoglobin (Bld) [Mass/Vol] 12.2 g/dL Normal 11.5-15.5 [facility] Comment on above: Order Comment: Speci men Type: BLOOD SPECIMENOrdering Facility: [facility] Address: [address] [place] [address] Performed By: #### 5 7021-8 ####[facility] LABIA [id number] [place] [address] IMMATURE GRAN % 0.3 % Normal [facility] Comment on above: Order Comment: Speci men Type: BLOOD SPECIMENOrdering Facility: [facility] Address: [address] [place] [address] Performed By: #### 5 7021-8 ####[facility] LABCLIA [id number] [place] [address] IMMATURE GRAN ABS <0.03 Normal <0.10 [facility] Comment on above: Order Comment: Speci men Type: BLOOD SPECIMENOrdering Facility: [facility] Address: [address] [place] [address] Performed By: #### 5 7021-8 ####[facility] LABIA [id number] [place] [address] Lymphocytes (Bld) [#/Vol] 1.37 10*3/uL Normal 1.00-4.00 [facility] Comment on above: Order Comment: Speci men Type: BLOOD SPECIMENOrdering Facility: [facility] Address: [address] [place] [address] Performed By: #### 5 7021-8 ####[facility] LABCLIA [id number] [place] [address] Lymphocytes/100 WBC (Bld) 34.3 % Normal [facility] Comment on above: Order Comment: Speci men Type: BLOOD SPECIMENOrdering Facility: [facility] Address: [address] [place] [address] Performed By: #### 5 7021-8 ####[facility] LABCLIA [id number] [place] [address] MCH (RBC) [Entitic mass] 27.2 pg Normal 26.0-34.0 [facility] Comment on above: Order Comment: Speci men Type: BLOOD SPECIMENOrdering Facility: [facility] Address: [address] [place] [address] Performed By: #### 5 7021-8 ####[facility] LABCLIA [id number] [place] [address] MCHC (RBC) [Mass/Vol] 32.0 g/dL Normal 30.5-36.0 [facility] Comment on above: Order Comment: Speci men Type: BLOOD SPECIMENOrdering Facility: [facility] Address: [address] [place] [address] Performed By: #### 5 7021-8 ####[facility] LABIA [id number] [place] [address] MCV (RBC) [Entitic vol] 85.0 fL Normal 80.0-100.0 [facility] Comment on above: Order Comment: Speci men Type: BLOOD SPECIMENOrdering Facility: [facility] Address: [address] [place] [address] Performed By: #### 5 7021-8 ####[facility] LABCLIA [id number] [place] [address] Monocytes (Bld) [#/Vol] 0.46 10*3/uL Normal <0.87 [facility] Comment on above: Order Comment: Speci men Type: BLOOD SPECIMENOrdering Facility: [facility] Address: [address] [place] [address] Performed By: #### 5 7021-8 ####[facility] LABCLIA [id number] [place] [address] Monocytes/100 WBC (Bld) 11.5 % Normal [facility] Comment on above: Order Comment: Speci men Type: BLOOD SPECIMENOrdering Facility: [facility] Address: [address] [place] [address] Performed By: #### 5 7021-8 ####[facility] LABCLIA [id number] [place] [address] Neutrophils (Bld) [#/Vol] 1.91 10*3/uL Normal 1.45-7.50 [facility] Comment on above: Order Comment: Speci men Type: BLOOD SPECIMENOrdering Facility: [facility] Address: [address] [place] [address] Performed By: #### 5 7021-8 ####[facility] LABCLIA [id number] [place] [address] Neutrophils/100 WBC (Bld) 47.6 % Normal [facility] Comment on above: Order Comment: Speci men Type: BLOOD SPECIMENOrdering Facility: [facility] Address: [address] [place] [address] Performed By: #### 5 7021-8 ####[facility] LABCLIA [id number] [place] [address] Nucleated RBC (Bld) [#/Vol] 10*3/uL Normal <0.01 [facility] Comment on above: Order Comment: Speci men Type: BLOOD SPECIMENOrdering Facility: [facility] Address: [address] [place] [address] Performed By: #### 5 7021-8 ####[facility] LABCLIA [id number] [place] [address] Nucleated RBC/100 WBC (Bld) [Ratio] 0.0 /100 WBC Normal [facility] Comment on above: Order Comment: Speci men Type: BLOOD SPECIMENOrdering Facility: [facility] Address: [address] [place] [address] Performed By: #### 5 7021-8 ####[facility] LABIA [id number] [place] [address] Platelet mean volume (Bld) [Entitic vol] 9.6 fL Normal 9.0-12.7 [facility] Comment on above: Order Comment: Speci men Type: BLOOD SPECIMENOrdering Facility: [facility] Address: [address] [place] [address] Performed By: #### 5 7021-8 ####[facility] LABIA [id number] [place] [address] Platelets (Bld) [#/Vol] 265 10*3/uL Normal 150-400 [facility] Comment on above: Order Comment: Speci men Type: BLOOD SPECIMENOrdering Facility: [facility] Address: [address] [place], [place] [address] Performed By: #### 5 7021-8 ####[facility] LABIA [id number] [place] [address] RBC (Bld) [#/Vol] 4.48 10*6/uL Normal 3.90-5.20 [facility] Comment on above: Order Comment: Speci men Type: BLOOD SPECIMENOrdering Facility: [facility] Address: [address] [place], [place] [address] Performed By: #### 5 7021-8 ####[facility] LABCLIA [id number] [place] [address] WBC (Bld) [#/Vol] 4.00 10*3/uL Normal 3.70-11.00 [facility] Comment on above: Order Comment: Speci men Type: BLOOD SPECIMENOrdering Facility: [facility] Address: [address] [place], [place] [address] Performed By: #### 5 7021-8 ####[facility] LABCLIA [id number] [place] [address] Abs Immature Gran <0.03 <0.10 k/uL [facility] Basophils (Bld) [#/Vol] 0.04 10*3/uL <0.11 k/uL [facility] Basophils/100 WBC (Bld) 1.0 % [facility] Differential cell count method Nom (Bld) Auto [facility] Eosinophils (Bld) [#/Vol] 0.21 10*3/uL <0.46 k/uL [facility] Eosinophils/100 WBC (Bld) 5.3 % [facility] Erythrocyte distribution width (RBC) [Ratio] 14.1 % 11.5 - 15.0 % [facility] Hematocrit (Bld) [Volume fraction] 38.1 % 36.0 - 46.0 % [facility] Hemoglobin (Bld) [Mass/Vol] 12.2 g/dL 11.5 - 15.5 g/dL [facility] Immature Gran % 0.3 % [facility] Lymphocytes (Bld) [#/Vol] 1.37 10*3/uL 1.00 - 4.00 k/uL [facility] Lymphocytes/100 WBC (Bld) 34.3 % [facility] MCH (RBC) [Entitic mass] 27.2 pg 26.0 - 34.0 pg [facility] MCHC (RBC) [Mass/Vol] 32.0 g/dL 30.5 - 36.0 g/dL [facility] MCV (RBC) [Entitic vol] 85.0 fL 80.0 - 100.0 fL [facility] Monocytes (Bld) [#/Vol] 0.46 10*3/uL <0.87 k/uL [facility] Monocytes/100 WBC (Bld) 11.5 % [facility] Neutrophils (Bld) [#/Vol] 1.91 10*3/uL 1.45 - 7.50 k/uL [facility] Neutrophils/100 WBC (Bld) 47.6 % [facility] Nucleated RBC (Bld) [#/Vol] 10*3/uL <0.01 k/uL [facility] Nucleated RBC/100 WBC (Bld) [Ratio] 0.0 /100 WBC [facility] Platelet mean volume (Bld) [Entitic vol] 9.6 fL 9.0 - 12.7 fL [facility] Platelets (Bld) [#/Vol] 265 10*3/uL 150 - 400 k/uL [facility] RBC (Bld) [#/Vol] 4.48 10*6/uL 3.90 - 5.2 0 m/uL [facility] WBC (Bld) [#/Vol] 4.00 10*3/uL 3.70 - 11. 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 During your visit today, we recorded the following information about you: Vika Pittman [facility] 10/06/2021 1:14 PM Signed 1st report of treatment-Non oncology regimen (Monoferric) Patient has [place] [employer] therefore no FA is required Allergies As of Date: 10/06/2021 (No Known Allergies) Date Reviewed: 10/06/2021 Reviewed by: Arleth Bangura RN - Fully Assessed Reason for Visit: Benefits Investigation [5048] Prescriptions as of 10/06/2021 - SUMAtriptan (IMITREX) [...] Status:Closed by VIKA TURCIOS on 10/06/21 Normal [facility] Ferritin SerPl-ncon 2021 Ferritin [Mass/Vol] 24.6 ng/mL Normal 14.7-205.1 [facility] Comment on above: Order Comment: Speci men Type: BLOOD SPECIMENOrdering Facility: [facility] Address: [address] [place], [place] [address] Performed By: #### 2 276-4, 94984-2 ####[facility] LABIA [id number] [place] [address] [place] Iron and Iron binding capaci panelon 10-06-2021 Iron [Mass/Vol] 33 ug/dL Low 41-186 [facility] Comment on above: Order Comment: Speci men Type: BLOOD SPECIMENOrdering Facility: [facility] Address: [address] [place], [place] [address] Performed By: #### 2 276-4, 14615-7 ####[facility] LABCLIA [id number] [place] [address] [place] Iron binding capacity [Mass/Vol] 426 ug/dL High 232-386 [facility] Comment on above: Order Comment: Speci men Type: BLOOD SPECIMENOrdering Facility: [facility] Address: [address] [place], [place] [address] Performed By: #### 2 276-4, 35988-8 ####[facility] LABCLIA [id number] [address] [place] Iron/TIBC [Molar ratio] 7.7 % Low 15.0-57.0 [facility] Comment on above: Order Comment: Speci men Type: BLOOD SPECIMENOrdering Facility: [facility] Address: [address] [place], [place] [address] Performed By: #### 2 276-4, 82753-9 ####[facility] LABCLIA [id number] [address] [place] CNPCathie 09-29-2021 CNPN Telephone (HEMASA) NEEL GARCIA ([id number]) 1980 F Date Time Provider Department 09/29/21 [...] Status:Closed by NEHEMIAS WARD on 09/29/21 Normal [facility] CBC W Auto Differential pane l (Bld)on 09-28-2021 Basophils (Bld) [#/Vol] 0.04 10*3/uL Normal <0.11 [facility] Comment on above: Order Comment: Speci men Type: BLOOD SPECIMENOrdering Facility: [facility] Address: [address] [place] [address] Performed By: #### 1 4196-0, 61088-8 ####[facility] LABCLIA [id number] [place] [address] Basophils/100 WBC (Bld) 0.8 % Normal [facility] Comment on above: Order Comment: Speci men Type: BLOOD SPECIMENOrdering Facility: [facility] Address: [address] [place] [address] Performed By: #### 1 4196-0, 40713-8 ####[facility] LABCLIA [id number] [place] [address] Differential cell count method Nom (Bld) Auto Normal [facility] Comment on above: Order Comment: Speci men Type: BLOOD SPECIMENOrdering Facility: [facility] Address: [address] [place] [address] Performed By: #### 1 4196-0, 66258-3 ####[facility] LABCLIA [id number] [place] [address] Eosinophils (Bld) [#/Vol] 0.27 10*3/uL Normal <0.46 [facility] Comment on above: Order Comment: Speci men Type: BLOOD SPECIMENOrdering Facility: [facility] Address: [address] [place] [address] Performed By: #### 1 4196-0, 30104-2 ####[facility] LABCLIA [id number] [place] [address] Eosinophils/100 WBC (Bld) 5.6 % Normal [facility] Comment on above: Order Comment: Speci men Type: BLOOD SPECIMENOrdering Facility: [facility] Address: [address] [place] [address] Performed By: #### 1 4196-0, 08318-5 ####[facility] LABIA [id number] [place] [address] Erythrocyte distribution width (RBC) [Ratio] 13.7 % Normal 11.5-15.0 [facility] Comment on above: Order Comment: Speci men Type: BLOOD SPECIMENOrdering Facility: [facility] Address: [address] [place] [address] Performed By: #### 1 4196-0, 36267-1 ####[facility] LABIA [id number] [place] [address] Hematocrit (Bld) [Volume fraction] 37.2 % Normal 36.0-46.0 [facility] Comment on above: Order Comment: Speci men Type: BLOOD SPECIMENOrdering Facility: [facility] Address: [address] [place] [address] Performed By: #### 1 4196-0, 24874-5 ####[facility] LABCLIA [id number] [place] [address] Hemoglobin (Bld) [Mass/Vol] 11.8 g/dL Normal 11.5-15.5 [facility] Comment on above: Order Comment: Speci men Type: BLOOD SPECIMENOrdering Facility: [facility] Address: [address] [place] [address] Performed By: #### 1 4196-0, 37472-4 ####[facility] LABCLIA [id number] [place] [address] IMMATURE GRAN % 0.2 % Normal [facility] Comment on above: Order Comment: Speci men Type: BLOOD SPECIMENOrdering Facility: [facility] Address: [address] [place] [address] Performed By: #### 1 4196-0, 06403-7 ####[facility] LABCLIA [id number] [place] [address] IMMATURE GRAN ABS <0.03 Normal <0.10 [facility] Comment on above: Order Comment: Speci men Type: BLOOD SPECIMENOrdering Facility: [facility] Address: [address] [place] [address] Performed By: #### 1 4196-0, 13496-6 ####[facility] LABCLIA [id number] [place] [address] Lymphocytes (Bld) [#/Vol] 1.88 10*3/uL Normal 1.00-4.00 [facility] Comment on above: Order Comment: Speci men Type: BLOOD SPECIMENOrdering Facility: [facility] Address: [address] [place] [address] Performed By: #### 1 4196-0, 83107-7 ####[facility] LABIA [id number] [place] [address] Lymphocytes/100 WBC (Bld) 38.9 % Normal [facility] Comment on above: Order Comment: Speci men Type: BLOOD SPECIMENOrdering Facility: [facility] Address: [address] [place], [place] [address] Performed By: #### 1 4196-0, 91990-0 ####[facility] LABCLIA [id number] [place] [address] MCH (RBC) [Entitic mass] 27.3 pg Normal 26.0-34.0 [facility] Comment on above: Order Comment: Speci men Type: BLOOD SPECIMENOrdering Facility: [facility] Address: [address] [place] [address] Performed By: #### 1 4196-0, 07934-2 ####[facility] LABIA [id number] [place] [address] MCHC (RBC) [Mass/Vol] 31.7 g/dL Normal 30.5-36.0 [facility] Comment on above: Order Comment: Speci men Type: BLOOD SPECIMENOrdering Facility: [facility] Address: [address] [place] [address] Performed By: #### 1 4196-0, 78254-1 ####[facility] LABIA [id number] [place] [address] MCV (RBC) [Entitic vol] 85.9 fL Normal 80.0-100.0 [facility] Comment on above: Order Comment: Speci men Type: BLOOD SPECIMENOrdering Facility: [facility] Address: [address] [place], [place] [address] Performed By: #### 1 4196-0, 03817-1 ####[facility] LABIA [id number] [place] [address] Monocytes (Bld) [#/Vol] 0.56 10*3/uL Normal <0.87 [facility] Comment on above: Order Comment: Speci men Type: BLOOD SPECIMENOrdering Facility: [facility] Address: [address] [place] [address] Performed By: #### 1 4196-0, 46191-6 ####[facility] LABCLIA [id number] [place] [address] Monocytes/100 WBC (Bld) 11.6 % Normal [facility] Comment on above: Order Comment: Speci men Type: BLOOD SPECIMENOrdering Facility: [facility] Address: [address] [place] [address] Performed By: #### 1 4196-0, 78415-9 ####[facility] LABCLIA [id number] [place] [address] Neutrophils (Bld) [#/Vol] 2.07 10*3/uL Normal 1.45-7.50 [facility] Comment on above: Order Comment: Speci men Type: BLOOD SPECIMENOrdering Facility: [facility] Address: [address] [place] [address] Performed By: #### 1 4196-0, 39085-8 ####[facility] LABCLIA [id number] [place] [address] Neutrophils/100 WBC (Bld) 42.9 % Normal [facility] Comment on above: Order Comment: Speci men Type: BLOOD SPECIMENOrdering Facility: [facility] Address: [address] [place] [address] Performed By: #### 1 4196-0, 07989-2 ####[facility] LABCLIA [id number] [place] [address] Nucleated RBC (Bld) [#/Vol] 10*3/uL Normal <0.01 [facility] Comment on above: Order Comment: Speci men Type: BLOOD SPECIMENOrdering Facility: [facility] Address: [address] [place] [address] Performed By: #### 1 4196-0, 22751-4 ####[facility] LABCLIA [id number] [place] [address] Nucleated RBC/100 WBC (Bld) [Ratio] 0.0 /100 WBC Normal [facility] Comment on above: Order Comment: Speci men Type: BLOOD SPECIMENOrdering Facility: [facility] Address: [address] [place] [address] Performed By: #### 1 4196-0, 80457-5 ####[facility] LABCLIA [id number] [place] [address] Platelet mean volume (Bld) [Entitic vol] 9.6 fL Normal 9.0-12.7 [facility] Comment on above: Order Comment: Speci men Type: BLOOD SPECIMENOrdering Facility: [facility] Address: [address] [place] [address] Performed By: #### 1 4196-0, 54609-3 ####[facility] LABCLIA [id number] [place] [address] Platelets (Bld) [#/Vol] 234 10*3/uL Normal 150-400 [facility] Comment on above: Order Comment: Speci men Type: BLOOD SPECIMENOrdering Facility: [facility] Address: [address] [place] [address] Performed By: #### 1 4196-0, 65826-8 ####[facility] LABCLIA [id number] [place] [address] RBC (Bld) [#/Vol] 4.33 10*6/uL Normal 3.90-5.20 [facility] Comment on above: Order Comment: Speci men Type: BLOOD SPECIMENOrdering Facility: [facility] Address: [address] [place] [address] Performed By: #### 1 4196-0, 14717-8 ####[facility] LABCLIA [id number] [place] [address] WBC (Bld) [#/Vol] 4.83 10*3/uL Normal 3.70-11.00 [facility] Comment on above: Order Comment: Speci men Type: BLOOD SPECIMENOrdering Facility: [facility] Address: [address] [place] [address] Performed By: #### 1 4196-0, 33592-6 ####[facility] LABCLIA [id number] [place] [address] CNOVSPon 09-28-2021 CNOVSP Visit (SP) Office (HEMASA) NEEL GARCIA ([id number]) 1980 F Date Time Provider Department 09/28/21 [...] provide more details. She was born in [place] and has lived in [place] in the past. She reports occasional smoking - cigars that are dipped in cognac - last use a month back. Occasional alcohol use. No other substance abuse reported. She lives with her with 5 children. She is not working now but used to work at [employer] (was laid off during -). MEDICATIONS AND [...] which included preparing to see the patient, aeci-ko-ualz patient care, completing clinical documentation, obtaining and/or reviewing separately obtained history, performing a medically appropriate examination, counseling and educating the patient/family/careg iver, ordering medications, tests, or procedures, independently interpreting results (not separately reported) and communicating results to the patient/family/careg iver. CC: Blade Bryan (more content not included)... Normal [facility] FERRITIN Don 09-28-2021 Ferritin [Mass/Vol] 22.9 ng/mL Normal 14.7-205.1 [facility] Comment on above: Order Comment: Andrew parks Type: BLOOD SPECIMENOrdering Facility: [facility] Address: [address] [place] [address] Performed By: #### I KENDRA FERR ####[facility] LABCLIA [id number] [place] [address] [place] IRON + TIBCon 09-28-2021 Iron [Mass/Vol] 44 ug/dL Normal 41-186 [facility] Comment on above: Order Comment: Andrew parks Type: BLOOD SPECIMENOrdering Facility: [facility] Address: [address] [place] [address] Performed By: #### I KENDRA, FERR ####[facility] LABCLIA [id number] [place] [address] [place] Iron binding capacity [Mass/Vol] 415 ug/dL High 232-386 [facility] Comment on above: Order Comment: Speci men Type: BLOOD SPECIMENOrdering Facility: [facility] Address: [address] [place], [place] [address] Performed By: #### Jerrell GARDNER, FELIX ####[facility] LABCLIA [id number] [place] [address] [place] Iron/TIBC [Molar ratio] 11 % Low 15-57 [facility] Comment on above: Order Comment: Speci men Type: BLOOD SPECIMENOrdering Facility: [facility] Address: [address] [place], [place] [address] Performed By: #### I KENDRA, FERR ####[facility] LABCLIA [id number] [place] [address] [place] Retics #on 09-28-2021 Reticulocytes (Bld) [#/Vol] 0.44516 10*3/uL Normal 0.018-0.100 [facility] Comment on above: Order Comment: Speci men Type: BLOOD SPECIMENOrdering Facility: [facility] Address: [address] [place], [place] [address] Performed By: #### 1 4196-0, 30741-1 ####[facility] LABCLIA [id number] [place] [address] Reticulocytes (Bld) [#/Vol]o n 09-28-2021 Reticulocytes/100 RBC (Bld) 1.0 % Normal 0.4-2.0 [facility] Comment on above: Order Comment: Speci men Type: BLOOD SPECIMENOrdering Facility: [facility] Address: [address] [place], [place] [address] Performed By: #### 1 4196-0, 33359-6 ####[facility] LABCLIA [id number] [place] [address] HCG,Quantitativeon 2 HCG,Quantitative < 0.60 Normal [facility] Comment on above: Result Comment: Appr oximate Approximate hCG Gestational Age Range (mIU/ml) (weeks) 0.2-1 5-50 1-2 50-500 2-3 100-5,000 3-4 500-10,000 4-5 1,000-50,000 5-6 10,000-100,000 6-8 15,000-200,000 8-12 10,000-100,000 PERFORMED BY: [facility] [address] [place] [address] PATHOLOGIST SUPERINTENDENT CIRCUS EDIN MONTERROSO M.D. Performed By: #### H CGQNT #### [facility] [address] [place] [address] Serum or plasma beta choriog onadotropin measurement (units/volume)Ordered By: Bryan Quiros on 09-20-2021 HCG.beta subunit Qn m[IU]/mL [facility] Comment on above: Approximate Approxim ate hCG Gestational Age Range (mIU/ml) (weeks) 0.2-1 5-50 1-2 50-500 2-3 100-5,000 3-4 500-10,000 4-5 1,000-50,000 5-6 10,000-100,000 6-8 15,000-200,000 8-12 10,000-100,000 [facility] SARS-CoV-2 (COVID-19) RNA JULEE+probe Ql (Unsp spec) Negative Normal Negative [facility] Comment on above: Order Comment: Healt hcare Worker?: N Result Comment: Testing for SARS-CoV-2 by RT-PCR This test was developed and its performance characteristics determined by [employer] and validated at the [facility]. This test has not been FDA [...] is terminated or revoked sooner. PERFORMED BY: [facility] [address] [facility] [place] [address] PATHOLOGIST SUPERINTENDENT CIRCUS EDIN MONTERROSO M.D. Performed By: #### C OVID 19 [facility] #### [facility] [address] COVID-19 Positive/NegativeOr dered By: Bryan Quiros on 09-15-2021 SARS-CoV-2 (COVID-19) N gene JULEE+probe Ql (Resp) Negative Negative [facility] Comment on above: Testing for SARS-CoV -2 by RT-PCR This test was developed and its performance characteristics determined by [employer] ([employer]) and validated at the [facility]. This test has not been FDA [...] Basophils (Bld) [#/Vol] 0.04 10*3/uL Normal <0.11 [facility] Comment on above: Order Comment: Speci men Type: BLOOD SPECIMENOrdering Facility: [facility] Address: [address] [place] [address] Performed By: #### 5 7021-8 ####[facility] LABCLIA [id number] [place] [address] Basophils/100 WBC (Bld) 1.0 % Normal [facility] Comment on above: Order Comment: Speci men Type: BLOOD SPECIMENOrdering Facility: [facility] Address: [address] [place] [address] Performed By: #### 5 7021-8 ####[facility] LABCLIA [id number] [place] [address] Differential cell count method Nom (Bld) Auto Normal [facility] Comment on above: Order Comment: Speci men Type: BLOOD SPECIMENOrdering Facility: [facility] Address: [address] [place] [address] Performed By: #### 5 7021-8 ####[facility] LABCLIA [id number] [place] [address] Eosinophils (Bld) [#/Vol] 0.18 10*3/uL Normal <0.46 [facility] Comment on above: Order Comment: Speci men Type: BLOOD SPECIMENOrdering Facility: [facility] Address: [address] [place] [address] Performed By: #### 5 7021-8 ####[facility] LABCLIA [id number] [place] [address] Eosinophils/100 WBC (Bld) 4.6 % Normal [facility] Comment on above: Order Comment: Speci men Type: BLOOD SPECIMENOrdering Facility: [facility] Address: [address] [place] [address] Performed By: #### 5 7021-8 ####[facility] LABCLIA [id number] [place] [address] Erythrocyte distribution width (RBC) [Ratio] 14.9 % Normal 11.5-15.0 [facility] Comment on above: Order Comment: Speci men Type: BLOOD SPECIMENOrdering Facility: [facility] Address: [address] [place] [address] Performed By: #### 5 7021-8 ####[facility] LABCLIA [id number] [place] [address] Hematocrit (Bld) [Volume fraction] 38.6 % Normal 36.0-46.0 [facility] Comment on above: Order Comment: Speci men Type: BLOOD SPECIMENOrdering Facility: [facility] Address: [address] [place] [address] Performed By: #### 5 7021-8 ####[facility] LABIA [id number] [place] [id number] Hemoglobin (Bld) [Mass/Vol] 12.2 g/dL Normal 11.5-15.5 [facility] Comment on above: Order Comment: Speci men Type: BLOOD SPECIMENOrdering Facility: [facility] Address: [address] [place] [address] Performed By: #### 5 7021-8 ####[facility] LABIA [id number] [place] [id number] IMMATURE GRAN % 0.3 % Normal [facility] Comment on above: Order Comment: Speci men Type: BLOOD SPECIMENOrdering Facility: [facility] Address: [address] [place] [address] Performed By: #### 5 7021-8 ####[facility] LABCLIA [id number] [place] [address] IMMATURE GRAN ABS <0.03 Normal <0.10 [facility] Comment on above: Order Comment: Speci men Type: BLOOD SPECIMENOrdering Facility: [facility] Address: [address] [place] [address] Performed By: #### 5 7021-8 ####[facility] LABCLIA [id number] [place] [address] Lymphocytes (Bld) [#/Vol] 1.57 10*3/uL Normal 1.00-4.00 [facility] Comment on above: Order Comment: Speci men Type: BLOOD SPECIMENOrdering Facility: [facility] Address: [address] [place] [address] Performed By: #### 5 7021-8 ####[facility] LABCLIA [id number] [place] [address] Lymphocytes/100 WBC (Bld) 40.4 % Normal [facility] Comment on above: Order Comment: Speci men Type: BLOOD SPECIMENOrdering Facility: [facility] Address: [address] [place] [address] Performed By: #### 5 7021-8 ####[facility] LABCLIA [id number] [place] [address] MCH (RBC) [Entitic mass] 27.2 pg Normal 26.0-34.0 [facility] Comment on above: Order Comment: Speci men Type: BLOOD SPECIMENOrdering Facility: [facility] Address: [address] [place] [address] Performed By: #### 5 7021-8 ####[facility] LABCLIA [id number] [place] [address] MCHC (RBC) [Mass/Vol] 31.6 g/dL Normal 30.5-36.0 [facility] Comment on above: Order Comment: Speci men Type: BLOOD SPECIMENOrdering Facility: [facility] Address: [address] [place] [address] Performed By: #### 5 7021-8 ####[facility] LABCLIA [id number] [place] [address] MCV (RBC) [Entitic vol] 86.2 fL Normal 80.0-100.0 [facility] Comment on above: Order Comment: Speci men Type: BLOOD SPECIMENOrdering Facility: [facility] Address: [address] [place] [address] Performed By: #### 5 7021-8 ####[facility] LABCLIA [id number] [place] [address] Monocytes (Bld) [#/Vol] 0.43 10*3/uL Normal <0.87 [facility] Comment on above: Order Comment: Speci men Type: BLOOD SPECIMENOrdering Facility: [facility] Address: [address] [place] [address] Performed By: #### 5 7021-8 ####[facility] LABCLIA [id number] [place] [address] Monocytes/100 WBC (Bld) 11.1 % Normal [facility] Comment on above: Order Comment: Speci men Type: BLOOD SPECIMENOrdering Facility: [facility] Address: [address] [place] [address] Performed By: #### 5 7021-8 ####[facility] LABCLIA [id number] [place] [address] Neutrophils (Bld) [#/Vol] 1.66 10*3/uL Normal 1.45-7.50 [facility] Comment on above: Order Comment: Speci men Type: BLOOD SPECIMENOrdering Facility: [facility] Address: [address] [place] [address] Performed By: #### 5 7021-8 ####[facility] LABCLIA [id number] [place] [address] Neutrophils/100 WBC (Bld) 42.6 % Normal [facility] Comment on above: Order Comment: Speci men Type: BLOOD SPECIMENOrdering Facility: [facility] Address: [address] [place] [address] Performed By: #### 5 7021-8 ####[facility] LABCLIA [id number] [place] [address] Nucleated RBC (Bld) [#/Vol] 10*3/uL Normal <0.01 [facility] Comment on above: Order Comment: Speci men Type: BLOOD SPECIMENOrdering Facility: [facility] Address: [address] [place] [address] Performed By: #### 5 7021-8 ####[facility] LABCLIA [id number] [place] [address] Nucleated RBC/100 WBC (Bld) [Ratio] 0.0 /100 WBC Normal [facility] Comment on above: Order Comment: Speci men Type: BLOOD SPECIMENOrdering Facility: [facility] Address: [address] [place] [address] Performed By: #### 5 7021-8 ####[facility] LABCLIA [id number] [place] [address] Platelet mean volume (Bld) [Entitic vol] 10.2 fL Normal 9.0-12.7 [facility] Comment on above: Order Comment: Speci men Type: BLOOD SPECIMENOrdering Facility: [facility] Address: [address] [place] [address] Performed By: #### 5 7021-8 ####[facility] LABCLIA [id number] [place] [address] Platelets (Bld) [#/Vol] 279 10*3/uL Normal 150-400 [facility] Comment on above: Order Comment: Speci men Type: BLOOD SPECIMENOrdering Facility: [facility] Address: [address] [place], [place] [address] Performed By: #### 5 7021-8 ####[facility] LABCLIA [id number] [place] [address] RBC (Bld) [#/Vol] 4.48 10*6/uL Normal 3.90-5.20 [facility] Comment on above: Order Comment: Speci men Type: BLOOD SPECIMENOrdering Facility: [facility] Address: [address] [place] [id number] Performed By: #### 5 7021-8 ####[facility] LABCLIA [id number] [place] [address] WBC (Bld) [#/Vol] 3.89 10*3/uL Normal 3.70-11.00 [facility] Comment on above: Order Comment: Speci men Type: BLOOD SPECIMENOrdering Facility: [facility] Address: [address] [place] [address] Performed By: #### 5 7021-8 ####[facility] LABCLIA [id number] [place] [address] CNOVSPon 08-14-2021 CNOVSP Visit (SP) Office (HEMASA) NEEL GARCIA ([id number]) 1980 F Date Time Provider Department 08/14/21 [...] provide more details. She was born in [place] and has lived in [place] in the past. She reports occasional smoking - cigars that are dipped in cognac - last use a month back. Occasional alcohol use. No other substance abuse reported. She lives with her with 5 children. She is not working now but used to work at [employer] (was laid off during COVID-19). MEDICATIONS AND [...] which included preparing to see the patient, dxla-iv-faqv patient care, completing clinical documentation, obtaining and/or reviewing separately obtained history, performing a medically appropriate examination, counseling and educating the patient/family/careg iver, ordering medications, tests, or procedures, independently interpreting results (not separately reported) and communicating results to the patient/family/careg iver. CC: Blade Crews Sr. Referring Provider: NEHEMIAS WARD [[id number]] Allergies As of Date: 08/14/2021 (No Known Allergies) Date Reviewed: 08/14/2021 Reviewed by: Aranza Mobley MA - Fully Assessed Reason for Visit: Anemia [6] Cmt: 1 month follow up Primary Visit Diagnosis:Iron deficiency anemia, unspecified iron deficiency anemia type [D50.9] Order(s):CBC + DIFF [SQCBCDIF] Order #: [id number] FUTURE RETIC C (more content not included)... Normal [facility] IRON + TIBCon 08-14-2021 Iron [Mass/Vol] 61 ug/dL Normal 41-186 [facility] Comment on above: Order Comment: Andrew parks Type: BLOOD SPECIMENOrdering Facility: [facility] Address: [address] [place] [address] Result Comment: Resu lts may be falsely increased due to interference from hemolysis. Suggest reorder as clinically indicated. Performed By: #### I KENDRA ####[facility] LABCLIA [id number] [place] [address] [place] Iron binding capacity [Mass/Vol] Normal [facility] Comment on above: Order Comment: Speci men Type: BLOOD SPECIMENOrdering Facility: [facility] Address: [address] [place] [address] Result Comment: Unab le to calculate due to hemolysis. Performed By: #### I KENDRA ####[facility] LABCLIA [id number] [address] Iron/TIBC [Molar ratio] Normal [facility] Comment on above: Order Comment: Speci men Type: BLOOD SPECIMENOrdering Facility: [facility] Address: [address] [place] [address] Result Comment: Unab le to calculate due to hemolysis. Performed By: #### I KENDRA ####[facility] LABCLIA [id number] [address] [place] CBC W Auto Differential pane l (Bld)on 06-26-2021 Basophils (Bld) [#/Vol] 0.04 10*3/uL Normal <0.11 [facility] Comment on above: Order Comment: Speci men Type: BLOOD SPECIMENOrdering Facility: [facility] Address: [address] [place] [address] Performed By: #### 5 7021-8 ####[facility] LABCLIA [id number] [place] [address] Basophils/100 WBC (Bld) 0.8 % Normal [facility] Comment on above: Order Comment: Speci men Type: BLOOD SPECIMENOrdering Facility: [facility] Address: [address] [place], [place] [address] Performed By: #### 5 7021-8 ####[facility] LABCLIA [id number] [place] [address] Differential cell count method Nom (Bld) Auto Normal [facility] Comment on above: Order Comment: Speci men Type: BLOOD SPECIMENOrdering Facility: [facility] Address: [address] [place] [address] Performed By: #### 5 7021-8 ####[facility] LABCLIA [id number] [place] [address] Eosinophils (Bld) [#/Vol] 0.14 10*3/uL Normal <0.46 [facility] Comment on above: Order Comment: Speci men Type: BLOOD SPECIMENOrdering Facility: [facility] Address: [address] [place] [address] Performed By: #### 5 7021-8 ####[facility] LABCLIA [id number] [place] [address] Eosinophils/100 WBC (Bld) 2.9 % Normal [facility] Comment on above: Order Comment: Speci men Type: BLOOD SPECIMENOrdering Facility: [facility] Address: [address] [place] [address] Performed By: #### 5 7021-8 ####[facility] LABCLIA [id number] [place] [address] Erythrocyte distribution width (RBC) [Ratio] 15.4 % High 11.5-15.0 [facility] Comment on above: Order Comment: Speci men Type: BLOOD SPECIMENOrdering Facility: [facility] Address: [address] [place] [address] Performed By: #### 5 7021-8 ####[facility] LABCLIA [id number] [place] [address] Hematocrit (Bld) [Volume fraction] 38.8 % Normal 36.0-46.0 [facility] Comment on above: Order Comment: Speci men Type: BLOOD SPECIMENOrdering Facility: [facility] Address: [address] [place] [address] Performed By: #### 5 7021-8 ####[facility] LABIA [id number] [place] [address] Hemoglobin (Bld) [Mass/Vol] 12.4 g/dL Normal 11.5-15.5 [facility] Comment on above: Order Comment: Speci men Type: BLOOD SPECIMENOrdering Facility: [facility] Address: [address] [place] [address] Performed By: #### 5 7021-8 ####[facility] LABCLIA [id number] [place] [address] IMMATURE GRAN % 0.2 % Normal [facility] Comment on above: Order Comment: Speci men Type: BLOOD SPECIMENOrdering Facility: [facility] Address: [address] [place] [address] Performed By: #### 5 7021-8 ####[facility] LABCLIA [id number] [place] [address] IMMATURE GRAN ABS <0.03 Normal <0.10 [facility] Comment on above: Order Comment: Speci men Type: BLOOD SPECIMENOrdering Facility: [facility] Address: [address] [place] [address] Performed By: #### 5 7021-8 ####[facility] LABCLIA [id number] [place] [address] Lymphocytes (Bld) [#/Vol] 1.53 10*3/uL Normal 1.00-4.00 [facility] Comment on above: Order Comment: Speci men Type: BLOOD SPECIMENOrdering Facility: [facility] Address: [address] [place] [address] Performed By: #### 5 7021-8 ####[facility] LABCLIA [id number] [place] [address] Lymphocytes/100 WBC (Bld) 31.2 % Normal [facility] Comment on above: Order Comment: Speci men Type: BLOOD SPECIMENOrdering Facility: [facility] Address: [address] [place] [address] Performed By: #### 5 7021-8 ####[facility] LABCLIA [id number] [place] [address] MCH (RBC) [Entitic mass] 27.1 pg Normal 26.0-34.0 [facility] Comment on above: Order Comment: Speci men Type: BLOOD SPECIMENOrdering Facility: [facility] Address: [address] [place] [address] Performed By: #### 5 7021-8 ####[facility] LABCLIA [id number] [place] [address] MCHC (RBC) [Mass/Vol] 32.0 g/dL Normal 30.5-36.0 [facility] Comment on above: Order Comment: Speci men Type: BLOOD SPECIMENOrdering Facility: [facility] Address: [address] [place] [address] Performed By: #### 5 7021-8 ####[facility] LABIA [id number] [place] [address] MCV (RBC) [Entitic vol] 84.7 fL Normal 80.0-100.0 [facility] Comment on above: Order Comment: Speci men Type: BLOOD SPECIMENOrdering Facility: [facility] Address: [address] [place] [address] Performed By: #### 5 7021-8 ####[facility] LABCLIA [id number] [place] [address] Monocytes (Bld) [#/Vol] 0.49 10*3/uL Normal <0.87 [facility] Comment on above: Order Comment: Speci men Type: BLOOD SPECIMENOrdering Facility: [facility] Address: [address] [place] [address] Performed By: #### 5 7021-8 ####[facility] LABCLIA [id number] [place] [address] Monocytes/100 WBC (Bld) 10.0 % Normal [facility] Comment on above: Order Comment: Speci men Type: BLOOD SPECIMENOrdering Facility: [facility] Address: [address] Performed By: #### 5 7021-8 ####[facility] LABCLIA [id number] [place] [address] Neutrophils (Bld) [#/Vol] 2.70 10*3/uL Normal 1.45-7.50 [facility] Comment on above: Order Comment: Speci men Type: BLOOD SPECIMENOrdering Facility: [facility] Address: [address] [place] [address] Performed By: #### 5 7021-8 ####[facility] LABCLIA [id number] [place] [address] Neutrophils/100 WBC (Bld) 54.9 % Normal [facility] Comment on above: Order Comment: Speci men Type: BLOOD SPECIMENOrdering Facility: [facility] Address: [address] [place] [address] Performed By: #### 5 7021-8 ####[facility] LABCLIA [id number] [place] [address] Nucleated RBC (Bld) [#/Vol] 10*3/uL Normal <0.01 [facility] Comment on above: Order Comment: Speci men Type: BLOOD SPECIMENOrdering Facility: [facility] Address: [address] [place] [address] Performed By: #### 5 7021-8 ####[facility] LABCLIA [id number] [place] [address] Nucleated RBC/100 WBC (Bld) [Ratio] 0.0 /100 WBC Normal [facility] Comment on above: Order Comment: Speci men Type: BLOOD SPECIMENOrdering Facility: [facility] Address: [address] [place] [address] Performed By: #### 5 7021-8 ####[facility] LABIA [id number] [place] [address] Platelet mean volume (Bld) [Entitic vol] 9.5 fL Normal 9.0-12.7 [facility] Comment on above: Order Comment: Speci men Type: BLOOD SPECIMENOrdering Facility: [facility] Address: [address] [place] [address] Performed By: #### 5 7021-8 ####[facility] LABIA [id number] [place] [address] Platelets (Bld) [#/Vol] 286 10*3/uL Normal 150-400 [facility] Comment on above: Order Comment: Speci men Type: BLOOD SPECIMENOrdering Facility: [facility] Address: [address] [place] [address] Performed By: #### 5 7021-8 ####[facility] [id number] [place] [address] RBC (Bld) [#/Vol] 4.58 10*6/uL Normal 3.90-5.20 [facility] Comment on above: Order Comment: Speci men Type: BLOOD SPECIMENOrdering Facility: [facility] Address: [address] [place] [address] Performed By: #### 5 7021-8 ####[facility] LABIA [id number] [place] [address] WBC (Bld) [#/Vol] 4.91 10*3/uL Normal 3.70-11.00 [facility] Comment on above: Order Comment: Speci men Type: BLOOD SPECIMENOrdering Facility: [facility] Address: [address] [place] [address] Performed By: #### 5 7021-8 ####[facility] LABIA [id number] [place] [address] CNOVSPon 06-26-2021 CNOVSP Visit (SP) Office (HEMASA) NEEL GARCIA ([id number]) 1980 F Date Time Provider Department 06/26/21 [...] provide more details. She was born in [place] and has lived in [place] in the past. She reports occasional smoking - cigars that are dipped in cognac - last use a month back. Occasional alcohol use. No other substance abuse reported. She lives with her with 5 children. She is not working now but used to work at [employer] (was laid off during ). MEDICATIONS AND [...] which included preparing to see the patient, ubsh-wq-otky patient care, completing clinical documentation, obtaining and/or reviewing separately obtained history, performing a medically appropriate examination, counseling and educating the patient/family/careg iver, ordering medications, tests, or procedures, independently interpreting results (not separately reported) and communicating results to the patient/family/careg iver. CC (more content not included)... Normal [facility] SARS-CoV-2 (COVID-19) RNA JULEE+probe Ql (Unsp spec) Negative Normal Negative [facility] Comment on above: Order Comment: Healt hcare Worker?: N Result Comment: Testing for SARS-CoV-2 by RT-PCR This test was developed and its performance characteristics determined by [employer] ([employer]) and validated at the [facility]. This test has not been FDA [...] is terminated or revoked sooner. PERFORMED BY: [place] [address] PATHOLOGIST SUPERINTENDENT CIRCUS EDIN MONTERROSO M.D. Performed By: #### C OVID 19 [facility] #### [address] COVID-19 Positive/NegativeOr dered By: Bryan Quiros on 06-26-2021 SARS-CoV-2 (COVID-19) N gene JULEE+probe Ql (Resp) Negative Negative [facility] Comment on above: Testing for SARS-CoV -2 by RT-PCR This test was developed and its performance characteristics determined by [employer] ([employer]) and validated at the [facility]. This test has not been FDA [...] 06-26-2021 Ferritin [Mass/Vol] 34.6 ng/mL Normal 14.7-205.1 [facility] Comment on above: Order Comment: Speci men Type: BLOOD SPECIMENOrdering Facility: [facility] Address: [address] [place] [address] Performed By: #### I KENDRA FERR ####[facility] LABCLIA [id number] [place] [address] [place] IRON + TIBCon 06-26-2021 Iron [Mass/Vol] 60 ug/dL Normal 41-186 [facility] Comment on above: Order Comment: Speci men Type: BLOOD SPECIMENOrdering Facility: [facility] Address: [address] [place] [address] Performed By: #### I KENDRA, FERR ####[facility] LABCLIA [id number] [place] [address] [place] Iron binding capacity [Mass/Vol] 398 ug/dL High 232-386 [facility] Comment on above: Order Comment: Speci kasey Type: BLOOD SPECIMENOrdering Facility: [facility] Address: [address] [place] [address] Performed By: #### I KENDRA, FERR ####[facility] LABCLIA [id number] [address] Iron/TIBC [Molar ratio] 15 % Normal 15-57 [facility] Comment on above: Order Comment: Speci men Type: BLOOD SPECIMENOrdering Facility: [facility] Address: [address] [place] [address] Performed By: #### I KENDRA, FERR ####[facility] LABCLIA [id number] [address] CNPNon 06-20-2021 CNPN Telephone (HEMASA) NEEL GARCIA ([id number]) 1980 F Date Time Provider Department 06/20/21 [...] Fully Assessed Reason for Visit: Lab Orders [168] Primary Visit Diagnosis:Iron deficiency anemia, unspecified iron deficiency anemia type [D50.9] Order(s):CBC + DIFF [SQCBCDIF] Order #: [id number] FUTURE Prescriptions as of 06/22/2021 - ferrous [...] (None) Encounter Status:Closed by RUSSELLJuly on 06/22/21 [facility] 05-30-2021 CNPN Telephone (HEMASA) NEEL GARCIA ([id number]) 1980 F Date Time Provider Department 05/30/21 [...] once a day (prescription sent to [facility] pharmacy in [place], [place]) and follow-up in 1 month with repeat labs. She will also need a referral to see a mushroom packer for scopes. MD Alina Thomas Sec 05/30/2021 12:48 PM Addendum sloane please send records to [facility] I will print facesheet for you Alina Burnett Sec 05/30/2021 12:50 PM Signed Patient is already scheduled for month appt Amelie Murray [facility] 05/30/2021 1:22 PM Signed Records faxed to Dr. Quiros. Miriam Raymond [facility] 06/05/2021 11:18 AM Signed Called [facility] and spoke with Karolina. She states they have received patient records and their office will be calling patient soon to schedule. Miriam Raymond [facility] Miriam Raymond Diomedes 06/07/2021 3:01 PM Signed Called [facility] spoke with Christiane. She states their treatment coordinator will be calling patient to schedule. Miriam Raymond [facility] Miriam Raymond [facility] 06/19/2021 10:42 AM Signed Called [facility] spoke with Karolina. She states they have tried to call patient left several messages and are waiting for patient to call their office back. Miriam Raymond [facility] Miriam Hercules 06/28/2021 1:07 PM Signed Spoke with Christiane from [facility] office. She states patient was scheduled today 06/28 for Colonoscopy and EGD, but they received voicemail from patient she wanted to cancel due to she was not feeling well. Miriam Raymond [facility] Vanna Semon 08/14/2021 2:43 PM Signed Spoke toshia/ Tamanna to let her know that patient [...] [D50.9] Order(s):CONSULT TO GASTROENTEROLOGY [9010] Order #: [id number]: 1 FUTURE [] ferrous sulfate 325 mg (65 mg iron) tabletTake 1 tablet by mouth daily with breakfast.Disp: 30 tabletRfl: 2 IRON + TIBC [SQIRON] Order #: [id number] FUTURE FERRITIN BLD [SQFERR] Order #: [id number] FUTURE Prescriptions as of 08/14/2021 - SUMAtriptan [...] mouth daily with breakfast. Encounter Status:Closed by NEHEMIAS WARD on 05/30/21 Normal [facility] APTTon 05-29-2021 aPTT Coag (Bld) [Time] 27.8 s Normal 23.0-32.4 Cl [facility] Comment on above: Result Comment: Unfr actionated [...] laboratory APTT reagent in use throughout the [facility]. Performed By: #### P TT, WSR, TT, FERR, FIBCT, PT, HAPTO, CRP, IRON ####[facility] [place], [place] [phone] C-Reactive Proteinon 022 C-Reactive Protein 0.5 mg/dL Normal <0.9 [facility] Comment on above: Performed By: #### P TT, WSR, TT, FERR, FIBCT, PT, HAPTO, CRP, IRON ####[address] [phone] CNOVSPon 05-29-2021 CNOVSP Visit (SP) Office (HEMASA) NEEL GARCIA ([id number]) 1980 F Date Time Provider Department 05/29/21 [...] provide more details. She was born in [place] and has lived in [place] in the past. She reports occasional smoking - cigars that are dipped in cognac - last use a month back. Occasional alcohol use. No other substance abuse reported. She lives with her with 5 children. She is not working now but used to work at [employer] (was laid off during -). MEDICATIONS AND [...] which included preparing to see the patient, rsso-iz-reqp patient care, completing clinical documentation, obtaining and/or reviewing separately obtained history, performing a medically appropriate examination, counseling and educating the patient/family/careg iver, ordering medications, tests, or procedures, independently interpreting results (not separately reported) and communicating results to the patient/family/careg iver. CC: Blade Crews Sr. Referring Provider: BLADE CREWS SR [[id number]] Allergies As of Date: 05/29/2021 (No Known Allergies) Date Reviewed: 05/29/2021 Reviewed by: Laurie Russell - Fully Assessed Reason for Visit: New Patient [172] Cmt: easy bruising Primary Visit Diagnosis:Anemia, unspecified type [D64.9] Other Visit Diagnosis:Easy bruisability [R23.8] Order(s):CBC + DIFF (FOR REMOTE [facility] USE) [SQRCBCDF] Order #: [id number] FUTURE COMP METABOLIC PANEL [SQCMP] Order #: [id number] FUTURE SED RATE WESTERGREN [SQWSR] Order #: [id number] FUTURE C-REACTIVE PROTEIN (CRP) [SQCRP] Order #: [id number] FUTURE IRON + TIBC [SQIRON] Order #: [id number] FUTU (more content not included)... Normal [facility] Comp Metabolic Panelon 05-29 Albumin [Mass/Vol] 4.6 g/dL Normal 3.9-4.9 [facility] Comment on above: Performed By: #### P TT, WSR, TT, FERR, FIBCT, PT, HAPTO, CRP, IRON ####[address] [phone] ALP [Catalytic activity/Vol] 83 U/L Normal 34-123 [facility] Comment on above: Performed By: #### P TT, WSR, TT, FERR, FIBCT, PT, HAPTO, CRP, IRON ####[place] [phone] ALT [Catalytic activity/Vol] 21 U/L Normal 7-38 [facility] Comment on above: Performed By: #### P TT, WSR, TT, FERR, FIBCT, PT, HAPTO, CRP, IRON ####[address] [phone] Anion gap [Moles/Vol] 11 mmol/L Normal 9-18 [facility] Comment on above: Performed By: #### P TT, WSR, TT, FERR, FIBCT, PT, HAPTO, CRP, IRON ####[address] [phone] AST [Catalytic activity/Vol] 19 U/L Normal 13-35 [facility] Comment on above: Performed By: #### P TT, WSR, TT, FERR, FIBCT, PT, HAPTO, CRP, IRON ####[address] [place] [phone] Bilirubin [Mass/Vol] 0.6 mg/dL Normal 0.2-1.3 [facility] Comment on above: Performed By: #### P TT, WSR, TT, FERR, FIBCT, PT, HAPTO, CRP, IRON ####[place] [phone] Calcium [Mass/Vol] 9.2 mg/dL Normal 8.5-10.2 [facility] Comment on above: Performed By: #### P TT, WSR, TT, FERR, FIBCT, PT, HAPTO, CRP, IRON ####[place] [phone] Chloride [Moles/Vol] 107 mmol/L High 97-105 [facility] Comment on above: Performed By: #### P TT, WSR, TT, FERR, FIBCT, PT, HAPTO, CRP, IRON ####[place] [phone] CO2 [Moles/Vol] 23 mmol/L Normal 22-30 [facility] Comment on above: Performed By: #### P TT, WSR, TT, FERR, FIBCT, PT, HAPTO, CRP, IRON ####[place] [phone] Creatinine [Mass/Vol] 1.00 mg/dL High 0.58-0.96 [facility] Comment on above: Performed By: #### P TT, WSR, TT, FERR, FIBCT, PT, HAPTO, CRP, IRON ####[address] [place] [phone] eGFR- Amer. >60 Normal [facility] Comment on above: Performed By: #### P TT, WSR, TT, FERR, FIBCT, PT, HAPTO, CRP, IRON ####[facility] [place], [place] [phone] eGFR-All Other Races >60 Normal [facility] Comment on above: Result Comment: [...] FIBCT, PT, HAPTO, CRP, IRON ####[facility] [place], [place] [phone] Glucose [Mass/Vol] 85 mg/dL Normal 74-99 [facility] Comment on above: Result Comment: The [place] Diabetes Association (ADA) provides guidance for cutoff [...] Standards of Medical Care in Diabetes 2016, [place] [employer]. Diabetes Care. 2016.39(Suppl 1). Performed By: #### P TT, WSR, TT, FERR, FIBCT, PT, HAPTO, CRP, IRON ####[place] [address] [address], [place] [phone] Potassium [Moles/Vol] 3.3 mmol/L Low 3.7-5.1 [facility] Comment on above: Performed By: #### P TT, WSR, TT, FERR, FIBCT, PT, HAPTO, CRP, IRON ####[address] [place] [phone] Protein [Mass/Vol] 7.6 g/dL Normal 6.3-8.0 [facility] Comment on above: Performed By: #### P TT, WSR, TT, FERR, FIBCT, PT, HAPTO, CRP, IRON ####[address] [place], [place] [phone] Sodium [Moles/Vol] 141 mmol/L Normal 136-144 [facility] Comment on above: Performed By: #### P TT, WSR, TT, FERR, FIBCT, PT, HAPTO, CRP, IRON ####[address] [place] [phone] Urea nitrogen [Mass/Vol] 12 mg/dL Normal 7-21 [facility] Comment on above: Performed By: #### P TT, WSR, TT, FERR, FIBCT, PT, HAPTO, CRP, IRON ####[address] [place], [place] [phone] Ferritinon 05-29-2021 Ferritin [Mass/Vol] 14.6 ng/mL Low 14.7-205.1 [facility] Comment on above: Performed By: #### P TT, WSR, TT, FERR, FIBCT, PT, HAPTO, CRP, IRON ####[address] [place], [place] [phone] Fibrinogenon 05-29-2021 Fibrinogen 338 mg/dL Normal 200-400 [facility] Comment on above: Performed By: #### P TT, WSR, TT, FERR, FIBCT, PT, HAPTO, CRP, IRON ####[place] [address] [address] [place], [place] [phone] Haptoglobinon 05-29-2021 Haptoglobin 161 mg/dL Normal 31-238 [facility] Comment on above: Performed By: #### P TT, WSR, TT, FERR, FIBCT, PT, HAPTO, CRP, IRON ####[address] [phone] Iron and TIBCon 05-29-2021 Iron [Mass/Vol] 53 ug/dL Normal 41-186 [facility] Comment on above: Performed By: #### P TT, WSR, TT, FERR, FIBCT, PT, HAPTO, CRP, IRON ####[address] [phone] TIBC 417 ug/dL High 232-386 [facility] Comment on above: Performed By: #### P TT, WSR, TT, FERR, FIBCT, PT, HAPTO, CRP, IRON ####[address] [phone] Transferrin Saturatn 13 % Low 15-57 [facility] Comment on above: Performed By: #### P TT, WSR, TT, FERR, FIBCT, PT, HAPTO, CRP, IRON ####[address] [phone] Platelet Func Scrnon 022 COL/ADP Cartridge Account Credited Normal <118 [facility] Comment on above: Result Comment: Test Not Done Notified Dr. Ward at 0940 on 05.30.21 AB Performed By: #### P LTSCP ####[address] [phone] COL/EPI Cartridge Account Credited Normal <194 [facility] Comment on above: Result Comment: Test Not Done Notified Dr. Ward at 0940 on 05.30.21 AB Performed By: #### P LTSCP ####[facility] [place], [place] [phone] Plt Func Scr Interp Account Credited Normal [facility] Comment on above: Performed By: #### P LTSCP ####[place] [id number] [place], [place] [phone] Protimeon 05-29-2021 PT INR 1.0 Normal 0.9-1.3 [facility] Comment on above: Result Comment: Kathy min K Antagonist (VKA) Therapeutic Range: INR 2 to 3 (Target INR of 2.5) Note: For patients treated with VKA drugs, such as warfarin, the [place] [employer] 2012 Guideline recommends [...] 2012, 141:7S-47S Srinivasa RA, et al. [facility] 2017, 70: 252-289 Performed By: #### P TT, WSR, TT, FERR, FIBCT, PT, HAPTO, CRP, IRON ####[facility] [address] [place], [place] [phone] PT Sec 10.9 sec Normal 9.7-13.0 [facility] Comment on above: Performed By: #### P TT, WSR, TT, FERR, FIBCT, PT, HAPTO, CRP, IRON ####[facility] [address] [place], [place] [phone] Remote CBCDIF (for [facility] use o nly)on 05-29-2021 Abs Baso 0.04 k/uL Normal <0.11 [facility] Abs Phillips 0.49 k/uL Normal <0.87 [facility] Abs Neut 1.66 k/uL Normal 1.45-7.50 [facility] Absolute nRBC <0.01 Normal <0.01 [facility] Basophils/100 WBC (Bld) 1.0 % Normal [facility] DTYPE Auto Diff Normal [facility] Eosinophils (Bld) [#/Vol] 0.19 10*3/uL Normal <0.46 [facility] Eosinophils/100 WBC (Bld) 4.9 % Normal [facility] Erythrocyte distribution width (RBC) [Ratio] 14.6 % Normal 11.5-15.0 [facility] Hematocrit (Bld) [Volume fraction] 36.0 % Normal 36.0-46.0 [facility] Hemoglobin (Bld) [Mass/Vol] 11.5 g/dL Normal 11.5-15.5 [facility] Lymphocytes (Bld) [#/Vol] 1.50 10*3/uL Normal 1.00-4.00 [facility] Lymphocytes/100 WBC (Bld) 38.6 % Normal [facility] MCH 26.5 pG Normal 26.0-34.0 [facility] MCHC (RBC) [Mass/Vol] 31.9 g/dL Normal 30.5-36.0 [facility] MCV (RBC) [Entitic vol] 82.9 fL Normal 80.0-100.0 [facility] Monocytes/100 WBC (Bld) 12.6 % Normal [facility] Neutrophils/100 WBC (Bld) 42.9 % Normal [facility] NRBCs 0.0 /100 WBC Normal 0 [facility] Platelet mean volume (Bld) [Entitic vol] 9.2 fL Normal 9.0-12.7 [facility] Platelets (Bld) [#/Vol] 300 10*3/uL Normal 150-400 [facility] RBC (Bld) [#/Vol] 4.34 10*6/uL Normal 3.90-5.20 [facility] WBC (Bld) [#/Vol] 3.89 10*3/uL Normal 3.70-11.00 [facility] Reticulocyteon 05-29-2021 Abs Retic 0.047 M/uL Normal 0.0180-0.1000 [facility] Comment on above: Performed By: #### P TT, WSR, TT, FERR, FIBCT, PT, HAPTO, CRP, IRON ####[place] [address] [address], [place] [phone] Retic% 1.1 % Normal 0.4-2.0 [facility] Comment on above: Performed By: #### P TT, WSR, TT, FERR, FIBCT, PT, HAPTO, CRP, IRON ####[place] [address] [address] [place], [place] [phone] Sed Rate Westergrenon 2021 Sed Rate Westergren 22 mm/hr High 0-20 [facility] Comment on above: Performed By: #### P TT, WSR, TT, FERR, FIBCT, PT, HAPTO, CRP, IRON ####[facility] [place] [address] [phone] Thrombin Timeon 05-29-2021 Thrombin Time 17.3 sec Normal <18.6 [facility] Comment on above: Performed By: #### P TT, WSR, TT, FERR, FIBCT, PT, HAPTO, CRP, IRON ####[place] [address] [place], [place] [phone] MRI BRAIN W WO CONTRASTon MRI BRAIN [...] collection present. The proximal portions of the [place] of [place] demonstrate normal flow voids. ORBITS: Limited evaluation of the orbits is unremarkable. SINUSES: The paranasal sinuses and mastoid air cells are clear. BONES/SOFT TISSUES: Bone marrow signal intensity is normal. IMPRESSION: Normal MRI of the brain without findings to explain the patient's seizures. Interpreted by: Erasmo Humphries MD Signed by: Erasmo Humphries MD 10/22/19 Final result Normal [facility] Normal MRI of the brain without findings to explain the patient's seizures. [place], [place] EXAMINATION: MRI OF THE BRAIN WITHOUT [...] collection present. The proximal portions of the [place] demonstrate normal flow voids. ORBITS: Limited evaluation of the orbits is unremarkable. SINUSES: The paranasal sinuses and mastoid air cells are clear. BONES/SOFT TISSUES: Bone marrow signal intensity is normal. [place], [place] Jay, pn Incoming Radiant Results From [facility] - 10/22/2019 4:01 PM EDT EXAMINATION: MRI OF THE BRAIN WITHOUT AND WITH CONTRAST 10/22/2019 2:33 pm TECHNIQUE: Multiplanar multisequence MRI of the head/brain was performed without and with the administration of intravenous contrast. COMPARISON: None. HISTORY: ORDERING SYSTEM PROVIDED HISTORY: Intractable epilepsy without status epilepticus, unspecified epilepsy type ([facility]) TECHNOLOGIST PROVIDED HISTORY: Is the [...] collection present. The proximal portions of the [place] of [place] demonstrate normal flow voids. ORBITS: Limited evaluation of the orbits is unremarkable. SINUSES: The paranasal sinuses and mastoid air cells are clear. BONES/SOFT TISSUES: Bone marrow signal intensity is normal. IMPRESSION: Normal MRI of the brain without findings to explain the patient's seizures. [facility], [place] Vital Signs Date Time Vital Sign Value Performing Clinician Facility 10-30-2022 10:33-0400 Blood Pressure Location AMELIEALEXA ESPARZA [facility] 10-30-2022 10:33-0400 Diastolic blood pressure 84 mm[Hg] AMELIEALEXA ESPARZA [facility] 10-30-2022 10:33-0400 Heart rate 61 /min AMELIE FRED [facility] 10-30-2022 10:33-0400 Respiratory rate 16 /min AMELIEALEXA ESPARZA [facility] 10-30-2022 10:33-0400 Systolic blood pressure 126 mm[Hg] AMELIE FRED [facility] 09-28-2021 13:53-0400 Body height 167.6 cm Nehemias Ward MD Work Phone: [facility] 09-28-2021 13:53-0400 Body temperature 97.59 [degF] Nehemias Ward MD Work Phone: [facility] 09-28-2021 13:53-0400 Body weight 86.55 kg Nehemias Ward MD Work Phone: [facility] 09-28-2021 13:53-0400 Diastolic blood pressure 70 mm[Hg] Nehemias Ward MD Work Phone: [facility] 09-28-2021 13:53-0400 Heart rate 65 /min Nehemias Ward MD Work Phone: [facility] 09-28-2021 13:53-0400 Respiratory rate 16 /min Nehemias Ward MD Work Phone: [facility] 09-28-2021 13:53-0400 SaO2% (BldA) [Mass fraction] 100 % Nehemias Ward MD Work Phone: [facility] 09-28-2021 13:53-0400 Systolic blood pressure 116 mm[Hg] Nehemias Ward MD Work Phone: [facility] 09-20-2021 08:45-0400 Diastolic blood pressure 68 mm[Hg] DO Blade House Work Phone: [facility] 09-20-2021 08:45-0400 Heart rate 68 /min DO Blade House Work Phone: [facility] 09-20-2021 08:45-0400 Respiratory rate 18 /min DO Blade House Work Phone: [facility] 09-20-2021 08:45-0400 SaO2% (BldA) [Mass fraction] 98 % DO Blade House Work Phone: [facility] 09-20-2021 08:45-0400 Systolic blood pressure 105 mm[Hg] DO Blade House Work Phone: [facility] 09-20-2021 06:49-0400 Body height 170.18 cm DO Blade Crews Work Phone: [facility] 09-20-2021 06:49-0400 Body mass index (BMI) [Ratio] 28.6 kg/m2 DO Blade Crews Work Phone: [facility] 09-20-2021 06:49-0400 Body temperature 98.5 [degF] DO Blade Crews Work Phone: [facility] 09-20-2021 06:49-0400 Body weight 83 kg DO Blade Tecumseh Work Phone: [facility] 08-14-2021 13:40-0400 Body height 167.6 cm Nehemias Ward MD Work Phone: [facility] 08-14-2021 13:40-0400 Body temperature 97.11 [degF] Nehemias Ward MD Work Phone: [facility] 08-14-2021 13:40-0400 Body weight 88.72 kg Nehemias Ward MD Work Phone: [facility] 08-14-2021 13:40-0400 Diastolic blood pressure 57 mm[Hg] Nehemias Ward MD Work Phone: [facility] 08-14-2021 13:40-0400 Heart rate 65 /min Nehemias Ward MD Work Phone: [facility] 08-14-2021 13:40-0400 Respiratory rate 16 /min Nehemias Ward MD Work Phone: [facility] 08-14-2021 13:40-0400 SaO2% (BldA) [Mass fraction] 92 % Nehemias Ward MD Work Phone: [facility] 08-14-2021 13:40-0400 Systolic blood pressure 115 mm[Hg] Nehemias Ward MD Work Phone: [facility] 06-27-2021 13:43-0500 Body height 170.18 cm DO Blade Crews Work Phone: [facility] 06-27-2021 13:43-0500 Body mass index (BMI) [Ratio] 31 kg/m2 DO Blade Crews Work Phone: [facility] 06-27-2021 13:43-0500 Body weight 89.81 kg DO Blade Crews Work Phone: [facility] Encounters Encounter Date Encounter Type Care Provider Facility Start: 09-29-2024 ambulatory BLADE P HOUSE Facilit y:[facility] Start: 08-20-2024 ambulatory BLADE P HOUSE Facilit y:[facility] Start: 06-22-2024 ambulatory DO BLADE P HOUSE Faci [facility] Start: 06-22-2024 ambulatory BLADE P HOUSE Facilit y:[facility] Start: 05-31-2024 End: 05-31-2024 Emergency department patient visit BLADE [facility] Start: 04-01-2024 ambulatory BLADE P HOUSE Facilit y:[facility] Start: 03-24-2024 ambulatory BLADE P HOUSE Facilit y:[facility] Start: 02-14-2024 End: 02-15-2024 Emergency department patient visit [facility] Start: 12-10-2023 End: 12-10-2023 ambulatory RHANDA ADAM Not Available Start: 12-04-2023 End: 12-04-2023 ambulatory RHANDA ADAM Not Available Start: 11-05-2023 End: 11-05-2023 ambulatory RICO DE JESUS Not Available Start: 11-04-2023 End: 11-04-2023 ambulatory RHANDA ADAM Not Available Start: 10-22-2023 End: 10-22-2023 ambulatory ALEX D BEJ Not Available Start: 10-22-2023 End: 10-22-2023 ambulatory ALEX D BEJ Not Available Start: 10-21-2023 End: 10-21-2023 ambulatory RHANDA ADAM Not Available Start: 10-18-2023 End: 10-20-2023 Emergency department patient visit PATIENCE OROZCO [facility] Start: 10-15-2023 End: 10-15-2023 ambulatory RHANDA ADAM Not Available Start: 08-27-2023 End: 08-27-2023 ambulatory RICO CABELLO Not Available Start: 01-08-2023 End: 01-09-2023 ambulatory AMELIE ESPARZA Facility:[facility] Start: 01-08-2023 End: 01-08-2023 Patient encounter procedure AMELIE ESPARZA [facility] Start: 11-13-2022 End: 11-14-2022 ambulatory Constantino MARTINEZ Facility:CD:[id number] Start: 10-30-2022 End: 10-31-2022 ambulatory AMELIE ESPARZA Facility:[facility] Start: 10-30-2022 End: 10-30-2022 Patient encounter procedure AMELIE ESPARZA [facility] Start: 05-30-2022 End: 05-30-[address] INGRID DE LOS SANTOS Facility:[facility] Start: 05-30-2022 End: 05-31-[address] INGRID DE LOS SANTOS Facility:[facility] Start: 05-27-2022 End: 05-27-[address] BLADE CREWS Facility:[facility] Start: 05-10-2022 End: 05-11-[address] BLADE CREWS Facility:[facility] Start: 02-26-2022 End: 02-27-[address] BLADE CREWS Facility:[facility] Start: 02-26-2022 Encounter for preprocedural laboratory examination DR INGRID DE LOS SANTOS [facility] Start: 02-25-2022 End: 02-25-[address] BLADE CREWS Facility:[facility] Start: 02-16-2022 Encounter for preprocedural laboratory examination DR INGRID DE LOS SANTOS [facility] Start: 02-15-2022 End: 02-16-2022 ambulatory Constantino MARTINEZ Facility:CD:[id number] Start: 02-15-2022 End: 02-19-2022 Evaluation and management of inpatient DR INGRID DE LOS SANTOS Facility:[facility] Start: 02-12-2022 End: 02-13-[address] INGRID DE LOS SANTOS Facility:[facility] Start: 02-12-2022 End: 02-13-2022 Encounter for preprocedural laboratory examination DR INGRID DE LOS SANTOS Facility:[facility] Start: 02-07-2022 ambulatory AMELIE FRED Facility :[facility] Start: 01-30-2022 Encounter for other preprocedural examination DR INGRID DE LSO SANTOS [facility] Start: 01-29-2022 End: 01-30-[address] [...] surgery center DO Blade Crews Work Phone: [facility] Start: 09-15-2021 End: 09-15-2021 Patient encounter procedure DO Blade Crews Work Phone: [facility] Start: 08-14-2021 End: 08-14-2021 ambulatory Nehemias Ward MD Work Phone: Hematology/Oncology Comment on above: Iron deficiency anem ia, unspecified iron deficiency anemia type (Primary Dx) Start: 08-14-2021 End: 08-14-2021 Patient encounter procedure Nehemias Ward MD Work Phone: [facility] Start: 06-28-2021 End: 06-28-2021 Departed Referred DO Blade Crews Work Phone: [facility] Start: 06-26-2021 End: 06-26-2021 Patient encounter procedure DO Blade Crews Work Phone: [facility] Start: 05-24-2021 Chart abstracting Nehemias guevara MD Work Phone: Hematology/Oncology Start: 10-22-2019 End: 10-25-2019 Patient encounter procedure ALEX LITTLE [facility] Start: 10-22-2019 End: 10-24-2019 Subsequent hospital visit by physician Page Mri Rm 1 [facility] MRI Comment on above: Intractable epilepsy [...] 09-28-2022 Adult depression screening assessment DEPRESSION SCREENING [facility] Start: 06-26-2022 Adult depression screening assessment DEPRESSION SCREENING [facility] Start: 12-21-2021 Influenza vaccination [facility] Start: 09-28-2021 End: 11-28-2021 CBC W Auto Differential panel - Blood CBC + DIFF Lab Routine Iron deficiency anemia, unspecified iron deficiency anemia type Expected: 09/28/2021, Expires: 11/28/2021 [facility] Work Phone: Comment on above: Expected: 09/28/2021, Expires: 2 Start: 09-28-2021 End: 11-28-2021 FERRITIN BLD FERRITIN BLD Lab Routine Iron deficiency anemia, unspecified iron deficiency anemia type Expected: 09/28/2021, Expires: 11/28/2021 [facility] Work Phone: Comment on above: Expected: 09/28/2021, Expires: 2 Start: 09-28-2021 End: 11-28-2021 IRON + TIBC IRON + TIBC Lab Routine Iron deficiency anemia, unspecified iron deficiency anemia type Expected: 09/28/2021, Expires: 11/28/2021 [facility] Work Phone: Comment on above: Expected: 09/28/2021, Expires: 2 Start: 08-14-2021 End: 10-14-2021 CBC W Auto Differential panel - Blood CBC + DIFF Lab Routine Iron deficiency anemia, unspecified iron deficiency anemia type Expected: 08/14/2021, Expires: 10/14/2021 [facility] Work Phone: Comment on above: Expected: 08/14/2021, Expires: 2 Start: 08-14-2021 End: 10-14-2021 FERRITIN BLD FERRITIN BLD Lab Routine Iron deficiency anemia, unspecified iron deficiency anemia type Expected: 08/14/2021, Expires: 10/14/2021 [facility] Work Phone: Comment on above: Expected: 08/14/2021, Expires: 2 Start: 08-14-2021 End: 10-14-2021 IRON + TIBC IRON + TIBC Lab Routine Iron deficiency anemia, unspecified iron deficiency anemia type Expected: 08/14/2021, Expires: 10/14/2021 [facility] Work Phone: Comment on above: Expected: 08/14/2021, Expires: 2 Start: 08-14-2021 End: 10-14-2021 RETIC COUNT RETIC COUNT Lab Routine Iron deficiency anemia, unspecified iron deficiency anemia type Expected: 08/14/2021, Expires: 10/14/2021 [facility] Work Phone: Comment on above: Expected: 08/14/2021, Expires: 2 Start: 06-28-2021 Esophagogastroduodenoscopy DH EGD/Colonoscopy (Not Applicable) [facility] Start: 12-21-2020 Influenza vaccination INFLUENZA (#1) [facility] Start: 12-22-2019 Influenza vaccination Flu vaccine (#1) [place], [place] Start: 2018 Lipid panel Lipid screen [place], [place] Start: 2018 Mammography MAMMOGRAM [facility] Start: 2008 HPV TESTING HPV TESTING [facility] Start: 1999 PAP TESTING PAP TESTING [facility] Start: 1999 Screening for malignant neoplasm of cervix Cervical cancer screen [place], [place] Start: 1997 DTaP/Tdap/Td vaccine (1 - Tdap) DTaP/Tdap/Td vaccine (1 - Tdap) [place], [place] Start: 1997 Urine microalbumin profile DTAP,TDAP,TD (1 - Tdap) [facility] Start: 1996 HEPATITIS C SCREENING HEPATITIS C SCREENING [facility] Start: 1996 HIV SCREENING HIV SCREENING [facility] Start: 1993 HIV screening HIV screen [place], [place] Start: 1990 Adult depression screening assessment DEPRESSION SCREENING [facility] Start: 1983 COVID-19 VACCINE (#1) COVID-19 VACCINE (#1) [facility] Start: 1983 COVID-19 VACCINE (1) COVID-19 VACCINE (1) [facility] Start: 1978 COVID-19 VACCINE (#1) COVID-19 VACCINE (#1) [facility] Ferritin [Mass/volum e] in Serum or Plasma FERRITIN BLD Lab Routine Iron deficiency anemia, unspecified iron deficiency anemia type 10/06/2021 1:31 PM EDT [facility] Work Phone: Iron and Iron bindin g capacity panel - Serum or Plasma IRON + TIBC Lab Routine Iron deficiency anemia, unspecified iron deficiency anemia type 10/06/2021 1:31 PM EDT [facility] Work Phone: [facility] Immunizations Immunization Date Immunization Notes Care Provider Mariah godinez 02-16-2019 influenza, injectabl e, quadrivalent, preservative free Nehemias Ward MD Work Phone: [facility] 12-31-2017 influenza, injectabl e, quadrivalent, preservative free Nehemias Ward MD Work Phone: [facility] Payers Date Payer Category Payer Self-pay [id number] 2014 Unknown [facility] xxxxxxxxxxxx 2014-Present [phone] [address] [place] [address] xxxxxxxxxxxx [id number] 2002 Medicaid [place] [employer] [place] [employer] [id number] 2002-Present [phone] [address] [place] [address] Medicaid [id number] 1978 Unknown [id number] 2.16.840.1.440039.3.579.2.175 1978 Unknown [id number] 2.16.840.1.627433.3.579.2.593 1978 Unknown [id number] 2.16.840.1.556945.3.579.2.593 1978 Unknown [id number] .16.840.1.032925.3.579.2.593 1978 Unknown [id number] 2.16.840.1.815768.3.579.2.593 1978 Unknown [id number] 2.16.840.1.474448.3.579.2.593 1978 Unknown [id number] 2.16.840.1.851756.3.579.2.593 1978 Unknown [id number] 2.16.840.1.904060.3.579.2.593 1978 Unknown [id number] 2.16.840.1.678237.3.579.2.593 1978 Unknown [id number] 2.16.840.1.435876.3.579.2.593 1978 Unknown [id number] 2.16.840.1.484596.3.579.2.593 1978 Unknown [id number] 2.16.840.1.917802.3.579.2.593 1978 Unknown [id number] 2.16.840.1.449402.3.579.2.593 1978 Unknown [id number] 2.16.840.1.333216.3.579.2.593 1978 Unknown [id number] 2.16.840.1.596997.3.579.2.593 1978 Unknown [id number] 2.16.840.1.850065.3.579.2.593 1978 Unknown [id number] 2.16.840.1.626579.3.579.2.727 1978 Unknown [id number] 2.16.840.1.859071.3.579.2.727 1978 Unknown [id number] 2.16.840.1.648141.3.579.2.727 1978 Unknown [id number] 2.16.840.1.251870.3.579.2.727 1978 Unknown [id number] 2.16.840.1.901151.3.579.2.125 9 1978 Unknown [id number] 2.16.840.1.618953.3.579.2.125 9 1978 Unknown [id number] 2.16.840.1.076010.3.579.2.125 9 1980 Unknown [id number] 2.16.840.1.635693.3.579.2.125 9 1978 Unknown [id number] 2.16.840.1.802895.3.579.2.125 9 1978 Unknown [id number] 2.16.840.1.662502.3.579.2.125 9 1978 Unknown [id number] 2.16.840.1.539883.3.579.2.125 9 1978 Unknown [id number] 2.16.840.1.018311.3.579.2.125 9 1978 Unknown [id number] 2.16.840.1.046122.3.579.2.125 9 1978 Unknown [id number] 2.16.840.1.028828.3.579.2.125 9 1978 Unknown [id number] 2.16.840.1.260237.3.579.2.128 6 1978 Unknown [id number] 2.16.840.1.595615.3.579.2.128 6 1978 Unknown [id number] 2.16.840.1.695154.3.579.2.128 6 1978 Unknown [id number] 2.16.840.1.570068.3.579.2.128 6 1978 Unknown [id number] 2.16.840.1.279569.3.579.2.718 1978 Unknown [id number] 2.16.840.1.361350.3.579.2.8 1978 Unknown [id number] 2.16.840.1.898631.3.579.2.718 1978 Unknown [id number] 2.16.840.1.855088.3.579.2.8 1978 Unknown [id number] 2.16.840.1.063048.3.579.2.718 1978 Unknown [id number] 2.16.840.1.388941.3.579.2.718 1959 Unknown [id number] Social History Date Type Detail Facility Tobacco smoking status NHIS Unknown if ever smoked [facility] Start: 1980 [facility] Tobacco smoking status NHIS Tobacco smoking consumption unknown [facility] Start: 05-29-2021 Tobacco smoking status NHIS Occasional tobacco smoker [facility] Start: 05-29-2021 End: 09-28-2021 Tobacco use and exposure Smokeless tobacco non-user [facility] Start: 08-14-2021 End: 11-10-2021 Alcohol intake Current drinker of alcohol (finding) [facility] Start: 08-14-2021 End: 11-10-2021 Alcohol intake [facility] Start: 05-29-2021 History SDOH Alcohol Comment socially [facility] Start: 08-04-2021 End: 11-10-2021 Exposure to SARS-CoV-2 (event) Not sure [facility] Start: 1980 Sex Assigned At Female F [facility] Start: 09-28-2021 End: 01-08-2023 Tobacco smoking status NHIS Ex-smoker [facility] Sex Assigned At Female [facility] Goals Date Patient Goal Desired Activity /State Functional Status Date Assessment Result Facility 01-08-2023 Functional Status N/A [facility] 10-30-2022 Functional Status N/A [facility] Clinical Notes 05-29-2021 to 01-08-2023 Telephone Encounter - Jian De La Cruz RN - 11/14/2021 3:15 PM EDTTelephone Encounter - Jian De La Cruz RN - 11/14/2021 3:15 PM EDTTelephone Encounter - Vika Pittman [facility] - 10/06/2021 1:13 PM EDT Note [...] provider. Document Revised: 08/17/2021 Document Reviewed: 08/17/2021 QuickProNotes Patient Education 2022 [employer]. Follow Up Care 10/30/2022 11:37:59 With:AMELIE ESPARZA PA-C, URL Address: [address] [place] [address] When: Unknown Comments:PRN [facility] 10-30-[address] 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 Measure Post Void residual urine and/or bladder capacity by US- non-imaging 25991 Follow-up With When Contact Information AMELIE ESPARZA PA-C, URL In 8 weeks [address] [place] [address] Additional Instructions: after Cysto w/ Dr. Martinez Patient Education Cystoscopy Documentation recorded by the scribe Lamar Estrada accurately reflects the services(s) I performed and decisions made by me. Authentic (more content not included)... [facility] Comment on above: Result Comment: Elec tronically [...] including vitamins, herbs, eye drops, creams, and qmzz-hkt-gheapgk medicines. Any problems you or family members [...] provider tells you to take them. Taking woxg-dcq-wfdqxvv medicines, vitamins, herbs, and supplements. Tests You [...] Follow these instructions at home: Medicines Take rnvn-noj-xanvtvo and prescription medicines only as told by [...] provider. Document Revised: 12/20/2021 Document Reviewed: 11/18/2020 QuickProNotes Patient Education 2022 [employer]. Follow Up Care 08/31/2022 13:02:06 With:AMELIE ESPARZA PA-C, URL Address: [address] [facility] [place] [address] When:Within 8 Week(s) Comments:after Cysto w/ [facility]. Martinez [facility] Note Urology Cystoscopy Cystoscopy is a [...] including vitamins, herbs, eye drops, creams, and bnqv-fva-vongjlv medicines. ? Any problems you or family [...] tells you to take them. ? Taking wxln-kau-jamyjls medicines, vitamins, herbs, and supplements. Tests You [...] these instructions at home: Medicines ? Take yhuc-pyp-ccacjwe and prescription medicines only as told by [...] the department th (more content not included)... [facility] 11-14-2021 Miscellaneous Notes Informed pt of Dr Ward's message. Pt verbalized understanding and denies further needs at this time. Jian De La Cruz RN ----- Message from Alina Barros RN sent at 11/13/2021 1:26 PM EDT ----- ----- Message ----- From: Nehemias Ward MD Sent: 11/11/2021 6:10 AM EDT To: Alina Barros RN [facility]. Can you please call pt and let her know that the iron profile is normal? No change in the recommendation. MAKENZIE Toribio documented in this encounter [facility] 11-10-2021 Note HNO ID: [id number] Author: Nehemias Ward MD Service: ? Author [...] provide more details. She was born in [place] and has lived in [place] in the past. She reports occasional smoking - cigars that are dipped in cognac - last use a month back. Occasional alcohol use. No other substance abuse reported. She lives with her with 5 children. She is not working now but used to work at [employer] (was laid off during -). MEDICATIONS AND [...] which included preparing to see the patient, kyja-iy-hrgw patient care, completing clinical documentation, obtaining and/or reviewing separately obtained history, performing a medically appropriate examination, counseling and educating the patient/family/caregiver, ordering medications, tests, or procedures, independently interpreting results (not separately reported) and communicating results to the patient/family/caregiver. CC: Blade Crews Sr. [facility] 10-06-2021 Miscellaneous Notes 1st report of treatment-Non oncology regimen (Monoferric) Patient has [place] [employer] therefore no FA is required documented in this encounter [facility] 09-29-2021 Miscellaneous Notes Patient has been [...] Nehemias Ward MD documented in this encounter [facility] 09-28-2021 Note HNO ID: [id number] Author: Nehemias Ward MD Service: ? Author [...] provide more details. She was born in [place] and has lived in [place] in the past. She reports occasional smoking - cigars that are dipped in cognac - last use a month back. Occasional alcohol use. No other substance abuse reported. She lives with her with 5 children. She is not working now but used to work at [employer] (was laid off during -). MEDICATIONS AND [...] which included preparing to see the patient, bofy-vt-fyoh patient care, completing clinical documentation, obtaining and/or reviewing separately obtained history, performing a medically appropriate examination, counseling and educating the patient/family/caregiver, ordering medications, tests, or procedures, independently interpreting results (not separately reported) and communicating results to the patient/family/caregiver. CC: Blade Crews Sr. [facility] 09-28-2021 History of Presen t illness [...] provide more details. She was born in [place] and has lived in [place] in the past. She reports occasional smoking - cigars that are dipped in cognac - last use a month back. Occasional alcohol use. No other substance abuse reported. She lives with her with 5 children. She is not working now but used to work at [employer] (was laid off during [employer]-). MEDICATIONS AND ALLERGIES: Reviewed PHYSICAL EXAM BP [...] which included preparing to see the patient, ceqz-ly-jdza patient care, completing clinical documentation, obtaining and/or reviewing separately obtained history, performing a medically appropriate examination, counseling and educating the patient/family/caregiver, ordering medications, tests, or procedures, independently interpreting results (not separately reported) and communicating results to the patient/family/caregiver. CC: Blade Crews Sr. documented in this encounter [facility] 09-20-2021 Procedure note [facility] 08-14-2021 Note HNO ID: [id number] Author: Nehemias Ward MD Service: ? Author [...] provide more details. She was born in [place] and has lived in [place] in the past. She reports occasional smoking - cigars that are dipped in cognac - last use a month back. Occasional alcohol use. No other substance abuse reported. She lives with her with 5 children. She is not working now but used to work at [employer] (was laid off during COVID-19). MEDICATIONS AND [...] which included preparing to see the patient, agjj-py-bbyj patient care, completing clinical documentation, obtaining and/or reviewing separately obtained history, performing a medically appropriate examination, counseling and educating the patient/family/caregiver, ordering medications, tests, or procedures, independently interpreting results (not separately reported) and communicating results to the patient/family/caregiver. CC: Blade Crews Sr. [facility] 08-14-2021 History of Presen t illness [...] provide more details. She was born in [place] and has lived in [place] in the past. She reports occasional smoking - cigars that are dipped in cognac - last use a month back. Occasional alcohol use. No other substance abuse reported. She lives with her with 5 children. She is not working now but used to work at [employer] (was laid off during COVID-). MEDICATIONS AND [...] which included preparing to see the patient, pjzf-it-dvlk patient care, completing clinical documentation, obtaining and/or reviewing separately obtained history, performing a medically appropriate examination, counseling and educating the patient/family/caregiver, ordering medications, tests, or procedures, independently interpreting results (not separately reported) and communicating results to the patient/family/caregiver. CC: Blade Crews Sr. documented in this encounter [facility] 06-26-2021 Note HNO ID: [id number] Author: Nehemias Ward MD Service: ? Author [...] provide more details. She was born in [place] and has lived in [place] in the past. She reports occasional smoking - cigars that are dipped in cognac - last use a month back. Occasional alcohol use. No other substance abuse reported. She lives with her with 5 children. She is not working now but used to work at [employer] (was laid off during -). MEDICATIONS AND [...] which included preparing to see the patient, jfdh-dz-gahu patient care, completing clinical documentation, obtaining and/or reviewing separately obtained history, performing a medically appropriate examination, counseling and educating the patient/family/caregiver, ordering medications, tests, or procedures, independently interpreting results (not separately reported) and communicating results to the patient/family/caregiver. CC: Blade Crews Sr. [facility] 05-29-2021 Note HNO ID: [id number] Author: Nehemias Ward MD Service: ? Author [...] provide more details. She was born in [place] and has lived in [place] in the past. She reports occasional smoking - cigars that are dipped in cognac - last use a month back. Occasional alcohol use. No other substance abuse reported. She lives with her with 5 children. She is not working now but used to work at [employer] (was laid off during ). MEDICATIONS AND [...] which included preparing to see the patient, wwmj-qk-lnre patient care, completing clinical documentation, obtaining and/or reviewing separately obtained history, performing a medically appropriate examination, counseling and educating the patient/family/caregiver, ordering medications, tests, or procedures, independently interpreting results (not separately reported) and communicating results to the patient/family/caregiver. CC: Blade Crews Sr. [facility] Evaluation + Plan note Future Appointments Appointment Date:01/08/2023 03:00:00 PM Scheduled Provider:AMELIE ESPARZA PA-C Location:[facility] Appointment Type:URO Office Visit [facility] Evaluation note Diagnosis Iron deficiency anemia, unspecified iron deficiency anemia type- Primary documented in this encounter [facility] noteNo assessment information available[facility] Work Phone: Evaluation note* Diagnosis Iron deficiency anemia, unspecified iron deficiency anemia type- Primary Easy bruisability Other symptoms involving skin and integumentary tissues [facility] Iron deficiency anemia, unspecified iron deficiency anemia type [facility] Diagnosis Onset Date Resolution Status Iron deficiency anemia acute [facility] Work Phone: Evaluation note* Diagnosis Iron deficiency anemia, unspecified iron deficiency anemia type- Primary [facility] this [facility] Author Bryan Quiros [facility] September 20, 2021 7:58am Note Date/Time September 20, 2021 7:54a m [facility] [address] [place] [address] Gastroenterology H&P Signed Patient: Neel Garcia MR#: [id number] : 1980 Acct:[id number] Age/Sex: 41 / F Adm Date: 2 Loc: Room: Type: [facility] Attending Dr: Bryan Quiros DO Copies to: DO Bryan Howard Jr, ~ Date of Service: 09/20/2021 Gastroenterology HPI History [...] by Bryan Quiros Jr, DO> 09/20/21 0758 [facility] Work Phone: Hospital course Narrative No data available for this section [facility] progress note No data available for this section [facility] Reason for Referral Status Reason Specialty Diagnoses / Procedures Referre d By Contact Referred To Contact [facility] Diagnoses Intractable epilepsy without status epilepticus, unspecified epilepsy type (HCC) Procedures MRI BRAIN W WO CONTRAST Alex Little MD [address] [place] [address] Assessments Diagnosis Intractable epilepsy without status epilepticus, unspecified epilepsy type (HCC) Advance Directives No Advanced Directives Records FoundDocuments on File Type Date Recorded 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 [place] [address] [address] [place] [address] Reason Comments Anemia 1 month follow up Reason Comments Anemia Reason Comments Results Reason Comments Benefits Investigation Specialty Diagnoses / Procedures Referred By Contac t Referred To Contact Diagnoses Iron deficiency anemia, unspecified iron deficiency anemia type Procedures INJECTION, FERRIC DERISOMALTOSE, 10 MG Nehemias Ward MD [address] [place] [address] [facility] Treat [address] [place] [address] Referral ID Status Reason Start Date Expiration Date V isits Requested Visits Authorized [id number] Authorized 09/29/2021 01/02/2022 1 1 INFORMATION SOURCE (unrecogn ized section and content) DATE CREATED AUTHOR 11/12/2019 [facility] DATE CREATED AUTHOR AUTHOR'S ORGANIZ ATION 09/24/2021 [facility] DATE CREATED AUTHOR AUTHOR'S ORGANIZ ATION 11/16/2021 [facility] DATE CREATED AUTHOR AUTHOR'S ORGANIZ ATION 06/05/2022 [facility] DATE CREATED AUTHOR AUTHOR'S ORGANIZ ATION 01/09/2023 [facility] DATE CREATED AUTHOR AUTHOR'S ORGANIZ ATION 12/12/2023 [facility] DATE CREATED AUTHOR AUTHOR'S ORGANIZ ATION 06/01/2024 [facility] DATE CREATED AUTHOR AUTHOR'S ORGANIZ ATION 09/27/2024 [facility] l Source Comments (unrecognize d section and content) In the event this informatio n is protected by the Federal Confidentiality of Alcohol and Drug Abuse Patient Records regulations: The Federal rules restrict any use of the information to criminally investigate or prosecute any alcohol or drug abuse patient.[facility] Hospital[facility] the event this information is protected by the Federal Confidentiality of Alcohol and Drug Abuse Patient Records regulations: The Federal rules restrict any use of the information to criminally investigate or prosecute any alcohol or drug abuse patient.[facility] HospitalIn the event this information is protected by the Federal Confidentiality of Alcohol and Drug Abuse Patient Records regulations: The Federal rules restrict any use of the information to criminally investigate or prosecute any alcohol or drug abuse patient.[facility] HospitalIn the event this information is protected by the Federal Confidentiality of Alcohol and Drug Abuse Patient Records regulations: The Federal rules restrict any use of the information to criminally investigate or prosecute any alcohol or drug abuse patient.[facility] the event this information is protected by the Federal Confidentiality of Alcohol and Drug Abuse Patient Records regulations: The Federal rules restrict any use of the information to criminally investigate or prosecute any alcohol or drug abuse patient.[facility] HospitalIn the event this information is protected by the Federal Confidentiality of Alcohol and Drug Abuse Patient Records regulations: The Federal rules restrict any use of the information to criminally investigate or prosecute any alcohol or drug abuse patient.[facility] HospitalIn the event this information is protected by the Federal Confidentiality of Alcohol and Drug Abuse Patient Records regulations: The Federal rules restrict any use of the information to criminally investigate or prosecute any alcohol or drug abuse patient.[facility] Care Teams (unrecognized sec tion and content) Tree Expert Relationship Specialty Start Date End Date Isiah Evangelista [address] [place] [address] Referring BACK SIZER 07/29/18 Tree Expert Relationship Specialty Start Date End Date Blade Crews Sr. 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 [address] [facility] [place] [address] PCP - General Family Practice 05/29/21 Isiah Evangelista [address] [place] [address] Referring BACK SIZER 07/29/18 Tree Expert Relationship Specialty Start Date End Date Blade Crews Sr. 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 [address] [facility] [place] [place] [address] PCP - General Family Practice 05/29/21 Isiah Evangelista [address] [place] [address] Referring BACK SIZER 07/29/18 Goals (unrecognized section and content) Goals [...] BE BASED ON THE PRIMARY CLINICAL RECORDS. [email or web address] [facility]. provides no warranty or guarantee of the accuracy or completeness of information in this document.
== END 2024-09-29 10:24 | disposition home or self-care (01) ==
LOC: LAB 10:28
PROVIDERS: PCP Family Medicine; Visit Provider Family Medicine
DX: F32.A Depression, unspecified (principal); K58.9 Irritable bowel syndrome, unspecified; G43.909 Migraine, unspecified, not intractable, without status migrainosus; G40.909 Epilepsy, unspecified, not intractable, without status epilepticus; M19.90 Unspecified osteoarthritis, unspecified site; R53.83 Other fatigue; J45.909 Unspecified asthma, uncomplicated
CPT/HCPCS: 36415; 84436; 84443

== ENCOUNTER 2024-12-02 20:06 | Emergency (ER) | payer OTHER, SELFPAY ==
[2024-12-02 20:13] VITALS: BP 135/78; PULSE 72; TEMP 37.4; O2SAT 100; BMI 27.9
--- OUTSIDE RECORDS SUMMARY | 2024-12-02 20:16 | XMS_ITS | CCD ---
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 Name Role Phone House, Sr Blade Soriano Primary Care Provider ALEX LITTLE Referring Unavailable [place], SR BLADE Soriano Primary Care Unavailable Isiah Evangelista Unavailable [place] Blade Ballesteros Primary Care Provider DO Blade Crews Primary Care Provider [phone] DO Bryan Quiros Attending Provider ELEONORA, DR [...] Unavailable MARÍA ELENA, MAGALI Consulting Unavailable REDD, WICOH Consulting Unavailable KARASIK, DR QUINTERO Admitting Unavailable [...] VICKERS Attending Unavailable HOUSE, DO BLADE P Attending Unavailable HOUSE, BLADE P Primary Care Unavailable HOUSE, BLADE P Primary Care Unavailable HOUSE, DO BLADE P Attending Unavailable HOUSE, DO BLADE P Attending Unavailable HOUSE, BLADE P Primary Care Unavailable HOUSE, DO BLADE P Admitting Unavailable HOUSE, DO BLADE P Attending Unavailable HOUSE, BLADE P Primary Care Unavailable HOUSE, DO BLADE P Attending Unavailable HOUSE, BLADE P Primary Care Unavailable HOUSE, DO BLADE P Attending Unavailable HOUSE, BLADE P Primary Care Unavailable Medications Current Medications Medication Drug Class(es) [...] Ordered Start: 05-23-2021 take 1 capsule by [facility] twice daily topiramate XR [...] day(s), # 2 tab(s), Refills(s) 0, Pharmacy: [facility]/pharmacy #[id number], 170, cm, 10/30/22 10:53:00 EDT, [...] 10-12-2021 Episodic Other aftercare (1 source) Other shelter (current) drug therapy; Translations: [OTH DETENTION CURRENT DRUG THERAPY] Onset: 05-28-2022 Episodic Other [...] Test Name Value Interpretation Reference Range Facility Lab - Other Lab [facility] - Other Lab Results [id number] [email or web address] 06-27-2024 Coding Summary HTMLBase 64 WydizjeuNDj3qFd+PGhl YWQ+KH7BLAHtN92wuYFy uS9kR8ZTZXwSUjgkYKZC YTcFPnJnorAqXH2qwPWx ZXJu IC8+JT4oCRRlOcnncDYz k8Z4mLN6H86dpf6eITwm oEI3NJDmIpXpzjwlg1qj dHx6RWnaNwuvOrPl UNNwmL75OZV6dU23Nq48 mDUxiPEvz6rdqJg9UxEf WEGzPLC4xFnbDLmnd4Xr KVXfT60vvZRkv1T7 IGNvbGxhcHNlOyBlbXB0 xD2nXFcdykafz0cqpnrs Xld2oa62dHZgd7Q8aUX6 J4DzmuZ0OOKaxDWa JbrxdUNFsR6dvdelm9zc vggnXfOiAOFxIQm7EKx7 RONsnCdgJdXaQW74TUT1 KGTfqgZtN6UzPENh rBjcIeS2o5S8Bf2SX8VW PhtqX6YVPFSDCLiitSQ+ WS47vf90R2MlXrxbIic8 WGJxGDC5rMA9iV7z FTZzHWmii0O0bWS4O4Cx hiRhur6gq3vkTQJmDRlk P54jtAMnt1N2CPGyvCG2 YUBrwHfuNiUydP02 Oyc+LLMxiXneg0BxHzxl f1ohu5ekdNq3WrzjZFXi ypCsnCvzOAU0g3GuJa8t OKQfwEJ5pWE5lA6i AnInLbD6MIerZ250OzDw xONcXrinJ88nW5DmxJI+ OSZvQab1EWHivAenCH5r H5JsZLYtzdnmsJUp nHklIE6xYDRirsvnFBIl dO5zUYBqC8g5SxUyBuS8 BTpfX6ZeQNCjhlmuDd97 iK9eSiLeKwC1SPev R7FqgcM7YTOtfQOgWFgt JWE5X90qb0A3JSBcHMGx MRH0eZS2eT9inSuqantm bGVmdDsgdmVydGlj OEobEBrqV369AVItyQkl PkNvZGluZyBEYXRlOiAg MDMvMDgvMjAyNTwvdGQ+ TXPgXCQ8mGquPGEl yDExVRbvZo0xdEygvDef MH6hRMGrovnoJNXnlY1m PLVxdRCbiFlxYZ4dYYNc qvdeo155HnZtMUA0 UUGsiMFiP8VzuY1zMxZs ZSGwAOQwZ5VlfILkJAko Q540UKvbKyL6CVGfzjEk A4EzPQPnmYcnIbO8 m9H2Md7Xq3EmhudjX9Qv oDGoSyJyMoccMJp0Q2Av PjwvdHI+KI52QFKeIJ27 FWf5MRV3cJfqYRcn COFsI9ZshY8hRmXeWLNm ZGRkOyc+PHRhYmxlIHdp ZHRoPScxMDAlJyBzdHls IH3gNc9sBAOwZQXj gQvppCLhInDqq3ejOWFs PFvzJJ1ypRbcT6GdiWJ6 MEFak4j8Rg86B36jF2Yu dXA+YOQdaTG6cNB4 sY2rFmTxVpC3SQjgB114 JmAgoPXbPqeiv8uqg0ux iSl2EtV6VYLfpsZeiAzp CXP6j6UmDy73X09e IHdpZHRoPSIxNSUiIHZh lAzwfl0jbE3xZs7+PGNv gMY1tPH4wY7uReLvJnW6 ZUlwR471JySsnQNo Tfjxs0ilv4oveUc8EuVc AYPjxgPunSglDDP8d6Nf Zg30A8ZluPqhq7LjOza7 qe38lIKwm2B3qSU5 F4GiJDWutfwjzAZbdBbb VP9kKMOzonuhBKGuvQ8g TKPiL5m6DxVxMlY9VFjb V6AqaiP6MZBreBEv CUMpuJDZpX6xilatk9jm hzshKyIkTSGcSQw3ZIf9 XUBqlQksQxItFEU0EmB5 QUW3dTDjcN4kuLje yggqxN6lSaz+ASW3bROe zTDEJR8gNtaycKH+PHRk XDG1zPxuTGpkOARdgT9d BAMrC0i4SdMdGmK9 AXulB2IudmP9NIMqyXTl JNNmoWIDdF4dgvhgk2jb tnamXsOnGZHzELm1ORp4 LWFsaWduOiBsZWZ0 PkA3MQK9nOBqzG7diHrz yieuqR1eUcu+QmlydGgg OBR0UXi1J5VtUvz2OFFo qVvlRV0dhEUkRUai Wz5pbPyprXvpTS7pUPXs mtdrd389JkQty8zuSIWf bLVpXHupGGX9B95cx9Z1 OZKnKOFsCBG2wYV3 zV5jcKdpeqzhcMYciIcv lbFlcSozVLmgTGorE827 DXBnuJgwTrWkAVs2N9Lc Fqn3PESwsOuzBP9x yCUtMPazRj5ntQyudOug IC9mVVAczhiav278UtJg x0ozFIGuzEHnYEzzYNI3 J48ya8R6OYZmVIRp BGC7vXV0aS5utDqbrfjp bGVmdDsgdmVydGljYWwt DGjjL955FAXpdHmeLcUn eMi7P0PtAyx6SUIb pMfrGG7lqHHoONdbYm6h xLyrqEtbOY2bCKJlespa c666HcFuh8ucGNZpyXSl ESsgPXM5S23fo5C5 JRWvMZNsYRR9wQK4zT8m bGlnbjogbGVmdDsgdmVy vAtwCSluNFaoB261GQCw cDsnPlBhdGllbnQg KLidVEa3J4TxCudcfKX+ BG40RZTiXG75gHYgeUMx s4inkJp6SgNuXROeIYL6 nBwcBXffb9KeGMBp H82kjYZdy7U0QOSqjXfc sMMvXfOmzIC7vJ8tHWri mrpla4lwecylQhzsg8fr fe87dG19A60yJJid ZHRoPSIzMCUiIHZhbGln lb3wtM8oRy0+PGNvbCB3 iQW2kV9kOQSwPaR6YUvi Q394RfOjeSWwUisk s5kfz8zkhBo9WlL4JTVi ctQacSflAUK0f2LvEp16 Y22aKDjpGKMsKBSbEWRb QPYoaWgnby7xwW1z Ii8+CTIodOM1jAT4tR1l HkBrLwX1DYxlY273VjIu eHBdCtyeN26mM7XpjZN+ XTJoNbv0HPOfiVao RH9wmVMjRGliQg7sCOT8 TpCfQmHePWukM0PkHNHh vrghpeqgzGM8FMNxGROj wB73Wr7bmAuaKKLz hGPCmU5dkydtr1hizyjl NkChJLYlPSy4ODv7DGBd fZplUrRlTXM7OmE5KQX3 uRJqiN0qwRsevmac nE5uW8GpKOWydybtMw01 eI7fAoMnMaF0CTitRge+ Of9SJdQCOeudWRJZXJbS IEQgRUxMSVNPTjwv dGQ+MTCvHGW1mLfiAAvc VRZjjE1mLHGjH2p1InIb QdM6ISzlD0VxPAYhrsqm Yt87dK0kZtHvYuC4 YYozJ5OhyvJ5GMIgwHBh UOtqPIT5Z90ll7U8VXAh SRLxGIS5cHU4dR3xpVfg bjogbGVmdDsgdmVy dKpzUJbcVRjjR094CYIa vRzzFaSqMbMkCwC0Maj2 X3CvGec9NQUkqXgvKI7r nZWnYJbdDd1qyGsp hEvvED1eBPZjbyarTKGc qJ1bRHCfoSBmuMosGC4d IOPbkvgwl308StDbMBI2 WTSugAEdL5XyaL6j DbBsTNQuGRUjR8AzgMQb QAttS701ATztDqQ1QJSt kwTfW0OoOQTtrUmoXzH8 c4Z5Qg04JnYQVKOr czwvdGQ+DSMvLFP0dNfn PJfcUGKsoN7cTFCtT4s9 OoReYxZ0SUflO5QrNSNj gtplFc67fN3kJuIx PqN2TErhX1FixhY8BKQu eVUhZCyiRNM1U06xb6O8 BTNfYQGxBLJ1iEH2fA5a bGlnbjogbGVmdDsg paUlyOlaYTjvJJvrP441 IHRvcDsnPkZFTUFMRTwv dGQ+BNEmBVC2oBsqUDmo MQPwvO3aYWIpR2y1 GhSkLmI4ADvuL2SyGWFw eamgOu35xL4kThJkYkN8 DZiwD3HhkpM5XVMklJWn WLyoWNZ3W95xl9P6 ECRmDAQdZEI4zMY8oV1m bGlnbjogbGVmdDsgdmVy mZocVBnaJQacG525IBIt lCidHh2TEY65XF06 W2PaMtzupRLsjJK+PHRh YmxlIHdpZHRoPScxMDAl YuWqwRaoDQ2nLq1aKFUi LWNvbGxhcHNlOiBj a2joKTAfTHmnTR3fgCtt U9RskHY7RULbb3b0Sz67 P69lR0TzpJN+PGNvbCB3 uAI6sT0mHnJcRmZ9 BCllG718CqTreICqRvwj a2zfs0epfKz7UlIeAOQz emYjvTthATQ0q1IwZv15 W80bQSnlEUQyEPIq OEHjQMFppWvryg6kdB5x Ii8+VQBxoDG4fAL6gE6j LaYvExP8VJidL964AySe pKRqHcikA58dW5Hb dXA+APGnXej3JYZtwRhi LX4zqKFmSAwjKn5iDPU6 YlYrXcNlFLyoU8MdWCGz znkxayddvFO2KPBz BXUggY92Kj6xwRdxQz4h LODqANG5DZYifUInX4Ck mD2yQaOvTNAoSEYkT1Xj zDYaHFhzA850MGqs ZiL5YIJluxYcQ6VqGMAa uDnoEsV1g2U3Nq7XxQvn fHRzET1jHaQmVXx9T5Hu Wca4EWJhjPswYC6t hJCpYPsoOy1ouBfxdXtj VW7wKHCilhpsb235CiMv d9wnBOCitGKqREaoAHA6 E73gn3X2HTYfJAFy XMS8hYN3xA1hmXvnfxxc bGVmdDsgdmVydGljYWwt UMsjM228NSLmaTubUeUE Fuv3R9HvCit3MCZg bYywSZ3udFAkDSysQb1h sZbnlPabGY0qNYBqesng v532AiApo1thCKKtdKTs TGgfOIS5V33ct9D7 VPRyJGYzSTE4fXE3uA6q bGlnbjogbGVmdDsgdmVy pDcqMVhtUShcM394AORd nNuuYc9TJai9A1Yz Fwd9DJSolVazGG1dxTXn PJzcNw7xjZqhvLeeER6h KNQabltsb715AeEfk0bn IDEwcHQgVGltZXM7 Z54km7Z2LNQwLKWgZXT2 zOK5kN0pxTbfcefdjPWh dDsgdmVydGljYWwtYWxp W116TZTviUvrVbDd eWVyOjwvdGQ+XW91fp53 Z8IlQmilEhl6VIWwMFI1 sYJ1hU2kTKDjTMvds8W3 uHL2Q6RdygSgnz6r b2x (more content not included)... Normal [facility] Reminder Messageson 06-24-19 Reminder Messages - From: BLADE CREWS DO To: [facility] Clinical Pool ([facility] Sent: 06/22/2024 12:08:59 EST ! Show up: [...] % (14 - 48) 06/22/2024 11:12 Auto Hardy % 12 % (1 - 12) 06/22/2024 11:12 Auto Eos % 3.8 % (0.9 - 4.0) 06/22/2024 11:12 Auto Baso % 1.2 % (0.2 - 2.0) 06/22/2024 11:12 Neut Abs# (L) 1.4 x103/mcL (1.5 - 9.2) 06/22/2024 11:12 Lymph Abs# 1.3 x103/mcL (1.3 - 2.9) 06/22/2024 11:12 Hardy Abs# 0.4 x103/mcL (0.0 - 0.8) 06/22/2024 [...] on 06/24/2024? 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 - From: Gavi Mora MA ([facility] Clinical Pool ([facility])) To: [facility] Clerical Pool ([facility]); Sent: 06/23/2024 10:43:45 EST Show up: 06/23/2024 10:43:00 EST Subject: RE: Results Follow Up Note prepared and placed in patient pickup folder in front office. Normal [facility] .Auto Diff 1on 06-22-2024 Auto Hardy % 12 % Normal 1-12 [facility] Comment on above: Performed By: #### 7 [id number], [id number], [id number] #### [facility] (DEFAULT) [address] [place] [address] Baso Abs# 0.0 x10 Normal 0.0-0.2 [facility] Comment on above: Performed By: #### 7 [id number], [id number], [id number] #### [facility] (DEFAULT) [address] [place] [address] Basophils/100 WBC (Bld) 1.2 % Normal 0.2-2.0 [facility] Comment on above: Performed By: #### 7 [id number], [id number], [id number] #### [facility] (DEFAULT) [address] [place] [address] 24466 Eos Abs# 0.1 x10 Normal 0.0-0.4 [facility] Comment on above: Performed By: #### 7 [id number], [id number], [id number] #### [facility] (DEFAULT) [address] [place] [address] 69647 Eosinophils/100 WBC (Bld) 3.8 % Normal 0.9-4.0 [facility] Comment on above: Performed By: #### 7 [id number], [id number], [id number] #### [facility] (DEFAULT) [address] [place] [address] 76155 Lymph Abs# 1.3 x10 Normal 1.3-2.9 [facility] Comment on above: Performed By: #### 7 [id number], [id number], [id number] #### [facility] (DEFAULT) [address] [place] [address] 04978 Lymphocytes/100 WBC (Bld) 40 % Normal 14-48 [facility] Comment on above: Performed By: #### 7 620491, [id number], [id number] #### [facility] (DEFAULT) [address] [place] [address] 10409 Hardy Abs# 0.4 x10 Normal 0.0-0.8 [facility] Comment on above: Performed By: #### 7 [id number], [id number], [id number] #### [facility] (DEFAULT) [address] [place] [address] 67439 Neut Abs# 1.4 x10 Low 1.5-9.2 [facility] Comment on above: Performed By: #### 7 866280, [id number], [id number] #### [facility] (DEFAULT) [address] [place] [address] 98773 Neutrophils/100 WBC (Bld) 44 % Normal 44-88 [facility] Comment on above: Performed By: #### 7 896972, [id number], [id number] #### [facility] (DEFAULT) [address] [place] [address] CBC w/ Auto Diffon Erythrocyte distribution width (RBC) [Ratio] 13.5 % Normal 11.5-15.0 [facility] Comment on above: Performed By: #### 7 [id number], [id number], [id number] #### [facility] (DEFAULT) [address] [place] [address] Hematocrit (Bld) [Volume fraction] 39.9 % Normal 33.7-40.4 [facility] Comment on above: Performed By: #### 7 565829, [id number], [id number] #### [facility] (DEFAULT) [address] [place] [address] Hemoglobin (Bld) [Mass/Vol] 13.4 g/dL Normal 11.3-15.9 [facility] Comment on above: Performed By: #### 7 618903, [id number], [id number] #### [facility] (DEFAULT) [address] [place] [address] Man Diff? Auto Invalid Interpretation Code [facility] Comment on above: Performed By: #### 7 [id number], [id number], [id number] #### [facility] (DEFAULT) [address] [place] [address] MCH (RBC) [Entitic mass] 30 pg Normal 24-34 [facility] Comment on above: Performed By: #### 7 [id number], [id number], [id number] #### [facility] (DEFAULT) [address] [place] [address] 80467 MCHC (RBC) [Mass/Vol] 34 g/dL Normal 26-37 [facility] Comment on above: Performed By: #### 7 [id number], [id number], [id number] #### [facility] (DEFAULT) [address] [place] [address] MCV (RBC) [Entitic vol] 88 fL Normal 81-100 [facility] Comment on above: Performed By: #### 7 546914, [id number], [id number] #### [facility] (DEFAULT) [address] [place] [address] Platelet 240 x10 Normal 138-427 [facility] Comment on above: Performed By: #### 7 690682, [id number], [id number] #### [facility] (DEFAULT) [address] [place] [address] Platelet mean volume (Bld) [Entitic vol] 7.2 fL Normal 6.3-10.2 [facility] Comment on above: Performed By: #### 7 576587, [id number], [id number] #### [facility] (DEFAULT) [address] [place] [address] RBC 4.54 x10 Normal 3.70-5.30 [facility] Comment on above: Performed By: #### 7 734557, [id number], [id number] #### [facility] (DEFAULT) [address] [place] [address] WBC 3.1 x10 Low 3.5-10.5 [facility] Comment on above: Result Comment: Slid e Reviewed Performed By: #### 7 [id number], [id number], [id number] #### [facility] (DEFAULT) [address] [place] [address] CMP Standardon 06-22-2024 eGFR Non AA >60 Invalid Interpretation Code [facility] Comment on above: Performed By: #### 7 595367, [id number], [id number] #### [facility] (DEFAULT) [address] [place] [address] eGFR AA >60 Invalid Interpretation Code [facility] Comment on above: Performed By: #### 7 035362, [id number], [id number] #### [facility] (DEFAULT) [address] [place] [address] Albumin [Mass/Vol] 4.0 g/dL Normal 3.5-5.0 [facility] Comment on above: Performed By: #### 7 290034, [id number], [id number] #### [facility] (DEFAULT) [address] [place] [address] Albumin/Globulin [Mass ratio] 1.2 {ratio} Low 1.4-2.6 [facility] Comment on above: Performed By: #### 7 892981, [id number], [id number] #### [facility] (DEFAULT) [address] [place] [address] 61390 Alk Phos 50 IU/L Normal 32-91 [facility] Comment on above: Performed By: #### 7 968176, [id number], [id number] #### [facility] (DEFAULT) [address] [place] [address] 24660 ALT [Catalytic activity/Vol] 21.0 U/L Normal 14.0-54.0 [facility] Comment on above: Performed By: #### 7 325355, [id number], [id number] #### [facility] (DEFAULT) [address] [place] [address] 68871 Anion gap [Moles/Vol] 1.4 mmol/L Low 5.0-19.0 [facility] Comment on above: Performed By: #### 7 564193, [id number], [id number] #### [facility] (DEFAULT) [address] [place] [address] 00338 AST [Catalytic activity/Vol] 22 U/L Normal 15-41 [facility] Comment on above: Performed By: #### 7 187938, [id number], [id number] #### [facility] (DEFAULT) [address] [place] [address] 82770 Bili Total 1.4 mg/dL High 0.3-1.2 [facility] Comment on above: Performed By: #### 7 692448, [id number], [id number] #### [facility] (DEFAULT) [address] [place] [address] 08960 Calcium [Mass/Vol] 8.1 mg/dL Low 8.9-10.3 [facility] Comment on above: Performed By: #### 7 204457, [id number], [id number] #### [facility] (DEFAULT) [address] [place] [address] 82627 Chloride [Moles/Vol] 108 mmol/L Normal 101-111 [facility] Comment on above: Performed By: #### 7 730968, [id number], [id number] #### [facility] (DEFAULT) [address] [place] [address] 00428 CO2 [Moles/Vol] 27 mmol/L Normal 21-32 [facility] Comment on above: Performed By: #### 7 608323, [id number], [id number] #### [facility] (DEFAULT) [address] [place] [address] 54246 Creatinine [Mass/Vol] 0.74 mg/dL Normal 0.60-1.30 [facility] Comment on above: Performed By: #### 7 664403, [id number], [id number] #### [facility] (DEFAULT) [address] [place] [address] 35874 Globulin (S) [Mass/Vol] 3.3 g/dL Normal 1.5-4.3 [facility] Comment on above: Performed By: #### 7 444081, [id number], [id number] #### [facility] (DEFAULT) [address] [place] [address] 49496 Glucose [Mass/Vol] 94.0 mg/dL Normal 74.0-118.0 [facility] Comment on above: Performed By: #### 7 323254, [id number], [id number] #### [facility] (DEFAULT) [address] [place] [address] 90724 Osmolality 266 mOsm/L Invalid Interpretation Code [facility] Comment on above: Performed By: #### 7 028410, [id number], [id number] #### [facility] (DEFAULT) [address] [place] [address] 51480 Potassium [Moles/Vol] 3.4 mmol/L Low 3.6-5.1 [facility] Comment on above: Performed By: #### 7 605552, [id number], [id number] #### [facility] (DEFAULT) [address] [place] [address] 40156 Protein [Mass/Vol] 7.3 g/dL Normal 6.5-8.1 [facility] Comment on above: Performed By: #### 7 134036, [id number], [id number] #### [facility] (DEFAULT) [address] [place] [address] Sodium [Moles/Vol] 133.0 mmol/L Low 136.0-144.0 [facility] Comment on above: Performed By: #### 7 047388, [id number], [id number] #### [facility] (DEFAULT) [address] [place] [address] Urea nitrogen [Mass/Vol] 11 mg/dL Normal 8-26 [facility] Comment on above: Performed By: #### 7 [id number], [id number], [id number] #### [facility] (DEFAULT) [address] [place] [address] Urea nitrogen/Creatinine [Mass ratio] 14.8 mg/mg Normal 4.6-16.2 [facility] Comment on above: Performed By: #### 7 [id number], [id number], [id number] #### [facility] (DEFAULT) [address] [place] [address] UA Ndckr8rb 06-22-2024 UA Bacteria Trace [facility] Comment on above: Order Comment: Urina lysis Microscopic order added on by [employer] Rules system. Performed By: #### 1 [id number], [id number] #### [facility] (DEFAULT) [address] [place] [address] 24709 UA RBC 3-5 Normal [facility] Comment on above: Order Comment: Urina lysis Microscopic order added on by [employer] Rules system. Performed By: #### 1 [id number], [id number] #### [facility] (DEFAULT) [address] [place] [address] [phone] UA Squam Epi Few Normal [facility] Comment on above: Order Comment: Urina lysis Microscopic order added on by [employer] Rules system. Performed By: #### 1 [id number], [id number] #### [facility] (DEFAULT) [address] [place] [address] [phone] UA WBC 0-2 Normal [facility] Comment on above: Order Comment: Urina lysis Microscopic order added on by [employer] Rules system. Performed By: #### 1 [id number], [id number] #### [facility] (DEFAULT) [address] [place] [address] UA w Culture if Ind Standard on 06-22-2024 Breakpoint UA [facility] Comment on above: Performed By: #### 1 [id number], [id number] #### [facility] (DEFAULT) [address] [place] [address] Color (U) Yellow [facility] Comment on above: Performed By: #### 1 [id number], [id number] #### [facility] (DEFAULT) [address] [place] [address] Culture? Not Indicated Invalid Interpretation Code [facility] Comment on above: Result Comment: Resu lt created by rule GL_MAGR_ADD_UA_CULT Result created by rule GL_MAGR_ADD_UA_CULT Result created by rule GL_MAGR_ADD_UA_CULT1 Performed By: #### 1 [id number], [id number] #### [facility] (DEFAULT) [address] [place] [address] [phone] Glucose (U) [Mass/Vol] Negative [facility] Comment on above: Performed By: #### 1 [id number], [id number] #### [facility] (DEFAULT) [address] [place] [address] [phone] Ketones Ql (U) Negative [facility] Comment on above: Performed By: #### 1 [id number], [id number] #### [facility] (DEFAULT) [address] [place] [address] 80638 Micro? Indicated Invalid Interpretation Code [facility] Comment on above: Result Comment: Resu lt created by rule GL_MAGR_ADD_UA_MICRO Performed By: #### 1 [id number], [id number] #### [facility] (DEFAULT) [address] [place] [address] 69272 UA Bilirubin Negative [facility] Comment on above: Performed By: #### 1 [id number], [id number] #### [facility] (DEFAULT) [address] [place] [address] 03072 UA Blood SMALL Abnormal NEGATIVE [facility] Comment on above: Performed By: #### 1 [id number], [id number] #### [facility] (DEFAULT) [address] [place] [address] 55532 UA Clarity CLEAR Normal CLEAR [facility] Comment on above: Performed By: #### 1 [id number] #### [facility] (DEFAULT) [address] [place] [address] 47440 UA Leuk Est Negative Normal NEGATIVE [facility] Comment on above: Performed By: #### 1 [id number], [id number] #### [facility] (DEFAULT) [address] [place] [address] 14111 UA Nitrite Negative Normal NEGATIVE [facility] Comment on above: Performed By: #### 1 [id number], [id number] #### [facility] (DEFAULT) [address] [place] [address] 97285 UA pH 7.0 Normal 5-8 [facility] Comment on above: Performed By: #### 1 [id number], [id number] #### [facility] [facility] (DEFAULT) [address] [place] [address] 54934 UA Protein Negative Normal [facility] Comment on above: Performed By: #### 1 [id number], [id number] #### [facility] (DEFAULT) [address] [place] [address] 67063 UA Spec Grav 1.020 Normal 1.001-1.035 [facility] Comment on above: Performed By: #### 1 [id number], [id number] #### [facility] (DEFAULT) [address] [place] [address] 27172 UA Urobilinogen 1.0 mg/dL Normal 0.2-1.0 [facility] Comment on above: Performed By: #### 1 [id number], [id number] #### [facility] (DEFAULT) [address] [place] [address] 02725 Urine Source Clean Catch Normal [facility] Comment on above: Performed By: #### 1 [id number], [id number] #### [facility] (DEFAULT) [address] [place] [address] Office/Clinic Noteon 025 Office/Clinic Note [id number] #1.00OTGTIFF Normal [facility] CBC AND AUTO DIFFon 05-31-19 25 ABSOLUTE BASOPHIL 0.0 X10E9/L Normal 0.0-0.2 [facility] Comment on above: Performed By: #### C REINA, BMP #### [facility] ([id number]) [address] [place] [address] 93447 Basophils/100 WBC (Bld) 1.0 % Normal [facility] Comment on above: Performed By: #### Aurora HUANG, BMP #### [facility] ([id number]) [address] [place] [address] 58339 Eosinophils (Bld) [#/Vol] 0.1 10*3/uL Normal 0.0-0.4 [facility] Comment on above: Performed By: #### Aurora HUANG, BMP #### [facility] ([id number]) [address] [place] [address] 42633 Eosinophils/100 WBC (Bld) 5.0 % Normal [facility] Comment on above: Performed By: #### Aurora HUANG, BMP #### [facility] ([id number]) [address] [place] [address] 71208 Erythrocyte distribution width (RBC) [Ratio] 13.4 % Normal 11.5-15.0 [facility] Comment on above: Performed By: #### C REINA, BMP #### [facility] ([id number]) [address] [place] [address] 05667 Hematocrit (Bld) [Volume fraction] 40.0 % Normal 35-47 [facility] Comment on above: Performed By: #### Aurora HUANG, BMP #### [facility] ([id number]) [address] [place] [address] 70824 Hemoglobin (Bld) [Mass/Vol] 13.2 g/dL Normal 11.7-15.5 [facility] Comment on above: Performed By: #### C REINA, BMP #### [facility] ([id number]) [address] [place] [address] 46804 LYMPHOCYTE, ATYPICAL 1.0 % Normal [facility] Comment on above: Performed By: #### C REINA, BMP #### [facility] ([id number]) [address] [place] [address] 44657 Lymphocytes (Bld) [#/Vol] 1.2 10*3/uL Normal 1.0-3.5 [facility] Comment on above: Performed By: #### C REINA, BMP #### [facility] ([id number]) [address] [place] [address] 56551 Lymphocytes/100 WBC (Bld) 40.0 % Normal [facility] Comment on above: Performed By: #### C REINA, BMP #### [facility] ([id number]) [address] [place] [address] 75074 MCH (RBC) [Entitic mass] 28.9 pg Normal 27-34 [facility] Comment on above: Performed By: #### C BCA, BMP #### [facility] ([id number]) [address] [place] [address] 65838 MCHC (RBC) [Mass/Vol] 33.1 g/dL Normal 32-36 [facility] Comment on above: Performed By: #### C BCA, BMP #### [facility] ([id number]) [address] [place] [address] 04110 MCV (RBC) [Entitic vol] 87 fL Normal 80-100 [facility] Comment on above: Performed By: #### C BCA, BMP #### [facility] ([id number]) [address] [place] [address] 46048 Monocytes (Bld) [#/Vol] 0.3 10*3/uL Normal 0-0.9 [facility] Comment on above: Performed By: #### C REINA, BMP #### [facility] ([id number]) [address] [place] [address] 30584 Monocytes/100 WBC (Bld) 11.0 % Normal [facility] Comment on above: Performed By: #### C REINA, BMP #### [facility] ([id number]) [address] [place] [address] 22893 Neutrophils (Bld) [#/Vol] 1.3 10*3/uL Low 1.5-6.6 [facility] Comment on above: Performed By: #### C REINA, BMP #### [facility] ([id number]) [address] [place] [address] 43301 Platelet mean volume (Bld) [Entitic vol] 7.7 fL Normal 7-12 [facility] Comment on above: Performed By: #### C REINA, BMP #### [facility] ([id number]) [address] [place] [address] 79868 Platelets (Bld) [#/Vol] 240 10*3/uL Normal 150-450 [facility] Comment on above: Performed By: #### C REINA, BMP #### [facility] ([id number]) [address] [place] [address] 27264 RBC COUNT 4.59 X10E12/L Normal 3.80-5.20 [facility] Comment on above: Performed By: #### C REINA, BMP #### [facility] ([id number]) [address] [place] [address] 71718 RBC morphology finding Nom (Bld) NORMAL Normal [facility] Comment on above: Performed By: #### C REINA, BMP #### [facility] ([id number]) [address] [place] [address] 45281 SEG NEUTROPHIL 42.0 % Normal [facility] Comment on above: Performed By: #### C BCA, BMP #### [facility] ([id number]) [address] [place] [address] 50955 WBC (Bld) [#/Vol] 2.9 10*3/uL Low 4.0-11.0 [facility] Comment on above: Performed By: #### C REINA, BMP #### [facility] ([id number]) [address] [place] [address] 83441 COMPREHENSIVE METABOLIC PANE Nomi 05-31-2024 Albumin [Mass/Vol] 4.2 g/dL Normal 3.2-5.3 [facility] Comment on above: Performed By: #### C REINA, BMP #### [facility] ([id number]) [address] [place] [address] 91329 ALP [Catalytic activity/Vol] 55 U/L Normal 39-130 [facility] Comment on above: Performed By: #### C REINA, BMP #### [facility] ([id number]) [address] [place] [address] 45847 ALT [Catalytic activity/Vol] 22 U/L Normal 0-31 [facility] Comment on above: Performed By: #### C BCA, BMP #### [facility] ([id number]) [address] [place] [address] 40816 Anion gap [Moles/Vol] 7 mmol/L Normal 5-15 [facility] Comment on above: Performed By: #### C BCA, BMP #### [facility] ([id number]) [address] [place] [address] 60198 AST [Catalytic activity/Vol] 18 U/L Normal 0-41 [facility] Comment on above: Performed By: #### C BCA, BMP #### [facility] ([id number]) [address] [place] [address] 16814 Bilirubin [Mass/Vol] 1.3 mg/dL High 0.3-1.2 [facility] Comment on above: Performed By: #### C BCA, BMP #### [facility] ([id number]) [address] [place] [address] 35797 Calcium [Mass/Vol] 8.7 mg/dL Normal 8.5-10.5 [facility] Comment on above: Performed By: #### C BCA, BMP #### [facility] ([id number]) [address] [place] [address] 50192 Chloride [Moles/Vol] 105 mmol/L Normal 98-109 [facility] Comment on above: Performed By: #### C BCA, BMP #### [facility] ([id number]) [address] [place] [address] 65688 CO2 [Moles/Vol] 23 mmol/L Normal 22-32 [facility] Comment on above: Performed By: #### C BCA, BMP #### [facility] ([id number]) [address] [place] [address] 58707 Creatinine [Mass/Vol] 0.78 mg/dL Normal 0.40-1.00 [facility] Comment on above: Result Comment: METH OD TRACEABLE TO IDMS STANDARD Performed By: #### C BCA, BMP #### [facility] ([id number]) [address] [place] [address] 93122 eGFR (CKD-EPI) NON-RACE DEPENDENT >90 Normal >59 [facility] Comment on above: Result Comment: Reported eGFR is based on the CKD-EPI 2020 equation that does not use a race coefficient. Performed By: #### C BCA, BMP #### [facility] ([id number]) [address] [place] [address] 21863 Glucose [Mass/Vol] 92 mg/dL Normal 65-99 [facility] Comment on above: Performed By: #### C BCA, BMP #### [facility] ([id number]) [address] [place] [address] 41074 Potassium [Moles/Vol] 3.5 mmol/L Normal 3.5-5.0 [facility] Comment on above: Performed By: #### C BCA, BMP #### [facility] ([id number]) [address] [place] [address] 03995 Protein [Mass/Vol] 7.1 g/dL Normal 6.0-8.0 [facility] Comment on above: Performed By: #### C BCA, BMP #### [facility] ([id number]) [address] [place] [address] 77609 Sodium [Moles/Vol] 135 mmol/L Normal 134-146 [facility] Comment on above: Performed By: #### C BCA, BMP #### [facility] ([id number]) [address] [place] [address] 43341 Urea nitrogen [Mass/Vol] 12 mg/dL Normal 5-23 [facility] Comment on above: Performed By: #### C BCA, BMP #### [facility] ([id number]) [address] [place] [address] BRAIN WO CONT STROKE ALER Jadiel 05-31-2024 CT BRAIN WO CONT STROKE ALERT [...] on 05/31/2024 11:15 AM Normal [facility] CT CTA CAROTIDon 05-31-2024 CT [...] Yahir Gutierrez MD on 05/31/2024 11:22 AM IRudi MD have personally reviewed the image(s) and agree with and/or edited the report Finalized by Rudi Story MD on 05/31/2024 11:39 AM Normal [facility] CT CTA HEADon 05-31-2024 CT [...] anatomy and potential pathology. 100 mL of [id number] intravenous contrast without complication. Arterial blood flow [...] on 05/31/2024 11:23 AM Normal [facility] Fibrin D-dimer DDU (PPP) [Ma ss/Vol]on 05-31-2024 D DIMER 172 ng/mL DDU Normal <255 [facility] Comment on above: Result Comment: Results <255 ng/mL DDU: The presence of a VTE can safely be excluded with a negative D-Dimer result and Wells score. A negative result doesn't exclude the possibility of DIC. The test be repeated along with other diagnostic tests if the patient's symptoms persist or worsen. [email or web address] Performed By: #### C THANIA HUANG #### [facility] ([id number]) [address] [place] [address] 67245 MAGNESIUMon 05-31-2024 Magnesium [Mass/Vol] 2.1 mg/dL Normal 1.8-2.6 [facility] Comment on above: Performed By: #### C THANIA HUANG #### [facility] ([id number]) [address] [place] [address] 72366 Troponin I.cardiac High sens itivity method [Mass/Vol]on 05-31-2024 1 HOUR TROP I, HIGH SENSITIVITY 2 ng/L Normal <16 [facility] Comment on above: Performed By: #### 8 9579-7 ####[facility] ([id number])[address] [place] [address] 13580 TROPONIN I, HIGH SENSITIVITY 2 ng/L Normal <16 [facility] Comment on above: Performed By: #### C BCA, CMP, 13365-0, 15247-5, 58480-7 ####[facility] ([id number])[address] [place] [address] 70698 Patient Handouton 04-02-2024 Patient Handout [id number] 0#1.00OTGTIFF Normal [facility] Patient Handout [id number] 4#1.00OTGTIFF Normal [facility] Troponin I.cardiac High sens itivity method [Mass/Vol]on 02-15-2024 1 HOUR TROP I, HIGH SENSITIVITY 4 ng/L Normal <16 [facility] Comment on above: Performed By: #### C BCA, BMP #### [facility] ([id number]) [address] [place] [address] 12076 CBC AND AUTO DIFFon 02-14-20 24 ABSOLUTE BASOPHIL 0.1 X10E9/L Normal 0.0-0.2 [facility] Comment on above: Performed By: #### C BCA, CMP, 07727-3, 85254-0 #### [facility] ([id number]) [address] [place] [address] 28348 ABSOLUTE NEUTROPHIL 2.1 X10E9/L Normal 1.5-6.6 [facility] Comment on above: Performed By: #### C BCA, CMP, 82889-0, 14344-1 #### [facility] ([id number]) [address] [place] [address] 70411 Basophils/100 WBC (Bld) 1.1 % Normal [facility] Comment on above: Performed By: #### C JAMES HUANG, 12528-6, 27849-7 #### [facility] ([id number]) [address] [place] [address] 16806 Eosinophils (Bld) [#/Vol] 0.1 10*3/uL Normal 0.0-0.4 [facility] Comment on above: Performed By: #### Aurora HUANG CMP, 52287-0, 79926-3 #### [facility] ([id number]) [address] [place] [address] 40837 Eosinophils/100 WBC (Bld) 2.8 % Normal [facility] Comment on above: Performed By: #### Aurora HUANG CMP, 86729-8, 74889-6 #### [facility] ([id number]) [address] [place] [address] 29656 Erythrocyte distribution width (RBC) [Ratio] 13.1 % Normal 11.5-15.0 [facility] Comment on above: Performed By: #### Aurora HUANG CMP, 80967-7, 60387-6 #### [facility] ([id number]) [address] [place] [address] 23907 Hematocrit (Bld) [Volume fraction] 38.3 % Normal 35-47 [facility] Comment on above: Performed By: #### Aurora HUANG CMP, 28899-9, 33222-0 #### [facility] ([id number]) [address] [place] [address] 38585 Hemoglobin (Bld) [Mass/Vol] 12.9 g/dL Normal 11.7-15.5 [facility] Comment on above: Performed By: #### C REINA CMP, 63684-3, 86600-3 #### [facility] ([id number]) [address] [place] [address] 36558 Lymphocytes (Bld) [#/Vol] 2.0 10*3/uL Normal 1.0-3.5 [facility] Comment on above: Performed By: #### C JAMES HUANG, 11044-6, 17861-8 #### [facility] ([id number]) [address] [place] [address] 22154 Lymphocytes/100 WBC (Bld) 41.2 % Normal [facility] Comment on above: Performed By: #### C REINA, JAMES, 21474-1, 97485-1 #### [facility] ([id number]) [address] [place] [address] 44544 MCH (RBC) [Entitic mass] 29.4 pg Normal 27-34 [facility] Comment on above: Performed By: #### Aurora HUANG CMP, 96909-7, 66423-6 #### [facility] ([id number]) [address] [place] [address] 96201 MCHC (RBC) [Mass/Vol] 33.7 g/dL Normal 32-36 [facility] Comment on above: Performed By: #### C REINA, JAMES, 46584-7, 39092-5 #### [facility] ([id number]) [address] [place] [address] 46535 MCV (RBC) [Entitic vol] 87 fL Normal 80-100 [facility] Comment on above: Performed By: #### Aurora HUANG, CMP, 25958-3, 05777-2 #### [facility] ([id number]) [address] [place] [address] 19481 Monocytes (Bld) [#/Vol] 0.5 10*3/uL Normal 0-0.9 [facility] Comment on above: Performed By: #### Aurora HUANG, CMP, 35534-7, 36431-0 #### [facility] ([id number]) [address] [place] [address] 50078 Monocytes/100 WBC (Bld) 10.2 % Normal [facility] Comment on above: Performed By: #### C REINA, CMP, 19420-3, 19697-2 #### [facility] ([id number]) [address] [place] [address] 99372 Neutrophils/100 WBC (Bld) 44.7 % Normal [facility] Comment on above: Performed By: #### C REINA, CMP, 62560-0, 06142-8 #### [facility] ([id number]) [address] [place] [address] 60536 Platelet mean volume (Bld) [Entitic vol] 7.5 fL Normal 7-12 [facility] Comment on above: Performed By: #### Aurora HUANG, CMP, 82316-8, 49395-8 #### [facility] ([id number]) [address] [place] [address] 45831 Platelets (Bld) [#/Vol] 261 10*3/uL Normal 150-450 [facility] Comment on above: Performed By: #### Aurora HUANG, CMP, 08909-1, 26126-4 #### [facility] ([id number]) [address] [place] [address] 93128 RBC COUNT 4.40 X10E12/L Normal 3.80-5.20 [facility] Comment on above: Performed By: #### C BCA, CMP, 81955-6, 01730-6 #### [facility] ([id number]) [address] [place] [address] 10150 WBC (Bld) [#/Vol] 4.7 10*3/uL Normal 4.0-11.0 [facility] Comment on above: Performed By: #### Aurora HUANG, CMP, 21760-2, 42164-9 #### [facility] ([id number]) [address] [place] [address] 04754 COMPREHENSIVE METABOLIC PANE Nomi 02-14-2024 Albumin [Mass/Vol] 4.4 g/dL Normal 3.2-5.3 [facility] Comment on above: Performed By: #### C BCA, CMP, 98351-9, 57198-3 #### [facility] ([id number]) [address] [place] [address] 82349 ALP [Catalytic activity/Vol] 54 U/L Normal 39-130 [facility] Comment on above: Performed By: #### C BCA, CMP, 57023-8, 12991-6 #### [facility] ([id number]) [address] [place] [address] 99959 ALT [Catalytic activity/Vol] 20 U/L Normal 0-31 [facility] Comment on above: Performed By: #### C BCA, CMP, 70088-7, 48265-0 #### [facility] ([id number]) [address] [place] [address] 72489 Anion gap [Moles/Vol] 8 mmol/L Normal 5-15 [facility] Comment on above: Performed By: #### C BCA, CMP, 27709-7, 42733-5 #### [facility] ([id number]) [address] [place] [address] 89822 AST [Catalytic activity/Vol] 17 U/L Normal 0-41 [facility] Comment on above: Performed By: #### C BCA, CMP, 24190-1, 25745-9 #### [facility] ([id number]) [address] [place] [address] 51589 Bilirubin [Mass/Vol] 1.0 mg/dL Normal 0.3-1.2 [facility] Comment on above: Performed By: #### C BCA, CMP, 34486-5, 83829-7 #### [facility] ([id number]) [address] [place] [address] 05637 Calcium [Mass/Vol] 8.7 mg/dL Normal 8.5-10.5 [facility] Comment on above: Performed By: #### C REINA, JAMES, 24062-1, 49631-5 #### [facility] ([id number]) [address] [place] [address] 10655 Chloride [Moles/Vol] 105 mmol/L Normal 98-109 [facility] Comment on above: Performed By: #### C REINA, JAMES, 27278-9, 50077-8 #### [facility] ([id number]) [address] [place] [address] 58890 CO2 [Moles/Vol] 25 mmol/L Normal 22-32 [facility] Comment on above: Performed By: #### C JAMES HUANG, 78875-1, 81085-1 #### [facility] ([id number]) [address] [place] [address] 64667 Creatinine [Mass/Vol] 0.69 mg/dL Normal 0.40-1.00 [facility] Comment on above: Result Comment: METH OD TRACEABLE TO IDMS STANDARD Performed By: #### C JAMES HUANG, 37642-3, 45284-7 #### [facility] ([id number]) [address] [place] [address] 50234 eGFR (CKD-EPI) NON-RACE DEPENDENT >90 Normal >59 [facility] Comment on above: Result Comment: Reported eGFR is based on the CKD-EPI 1 equation that does not use a race coefficient. Performed By: #### C REINA, JAMES, 94297-7, 09568-8 #### [facility] ([id number]) [address] [place] [address] 55188 Glucose [Mass/Vol] 91 mg/dL Normal 65-99 [facility] Comment on above: Performed By: #### C REINA, [facility], 44428-5, 46293-9 #### [facility] ([id number]) [address] [place] [address] 59773 Potassium [Moles/Vol] 2.9 mmol/L Low 3.5-5.0 [facility] Comment on above: Performed By: #### C REINA, [facility], 44132-7, 82943-4 #### [facility] ([id number]) [address] [place] [address] 46552 Protein [Mass/Vol] 7.3 g/dL Normal 6.0-8.0 [facility] Comment on above: Performed By: #### C REINA, [facility], 77631-9, 89454-7 #### [facility] ([id number]) [address] [place] [address] 13216 Sodium [Moles/Vol] 138 mmol/L Normal 134-146 [facility] Comment on above: Performed By: #### C REINA, [facility], 82067-4, 14668-4 #### [facility] ([id number]) [address] [place] [address] 12240 Urea nitrogen [Mass/Vol] 12 mg/dL Normal 5-23 [facility] Comment on above: Performed By: #### Aurora HUANG, [facility], 53517-5, 44762-1 #### [facility] ([id number]) [address] [place] [address] 43928 Fibrin D-dimer DDU (PPP) [Ma ss/Vol]on 02-14-2024 D DIMER <150 Normal <255 [facility] Comment on above: Result Comment: Results <255 ng/mL DDU: The presence of a VTE can safely be excluded with a negative D-Dimer result and Wells score. A negative result doesn't exclude the possibility of DIC. The test be repeated along with other diagnostic tests if the patient's symptoms persist or worsen. [email or web address] Performed By: #### C REINA, CMP, 85368-7, 05620-1 #### [facility] ([id number]) [address] [place] [address] 12156 Troponin I.cardiac High sens itivity method [Mass/Vol]on 02-14-2024 TROPONIN I, HIGH SENSITIVITY 3 ng/L Normal <16 [facility] Comment on above: Performed By: #### C REINA, BMP #### [facility] ([id number]) [address] [place] [address] 12088 XR CHEST 1 VWon 02-14-2024 XR CHEST 1 VW XR CHEST 1 VW Single view chest History: Difficulty breathing, shortness of breath Comparison: 01/25/2018 Impression: No acute pulmonary process. No pneumothorax or pleural effusion. Nonenlarged heart. Finalized by Steven Saleh MD on 02/14/2024 11:37 PM Normal [facility] XR CERVICAL SPINE AP/LAT/FLE X/EXT/OBLIQUESon [...] Anion gap [Moles/Vol] 8 mmol/L Normal 5-15 [facility] Comment on above: Performed By: #### C BCA, BMP #### [facility] ([id number]) [address] [place] [address] 90235 Calcium [Mass/Vol] 9.1 mg/dL Normal 8.5-10.5 [facility] Comment on above: Performed By: #### C BCA, BMP #### [facility] ([id number]) [address] [place] [address] 85102 Chloride [Moles/Vol] 104 mmol/L Normal 98-109 [facility] Comment on above: Performed By: #### C REINA, BMP #### [facility] ([id number]) [address] [place] [address] 77452 CO2 [Moles/Vol] 24 mmol/L Normal 22-32 [facility] Comment on above: Performed By: #### C BCA, BMP #### [facility] ([id number]) [address] [place] [address] 18746 Creatinine [Mass/Vol] 1.05 mg/dL High 0.40-1.00 [facility] Comment on above: Result Comment: METH OD TRACEABLE TO IDMS STANDARD Performed By: #### C REINA, BMP #### [facility] ([id number]) [address] [place] [address] 25253 GFR/1.73 sq M.predicted among non-blacks MDRD (S/P/Bld) [Vol rate/Area] 67 mL/min/{1.73_m2} Normal >59 [facility] Comment on above: Result Comment: Reported eGFR is based on the CKD-EPI 2020 equation that does not use a race coefficient. Performed By: #### C BCA, BMP #### [facility] ([id number]) [address] [place] [address] 37655 Glucose [Mass/Vol] 85 mg/dL Normal 65-99 [facility] Comment on above: Performed By: #### C REINA, BMP #### [facility] ([id number]) [address] [place] [address] 59833 Potassium [Moles/Vol] 3.3 mmol/L Low 3.5-5.0 [facility] Comment on above: Performed By: #### C REINA, BMP #### [facility] ([id number]) [address] [place] [address] 89851 Sodium [Moles/Vol] 136 mmol/L Normal 134-146 [facility] Comment on above: Performed By: #### C REINA, BMP #### [facility] ([id number]) [address] [place] [address] 22806 Urea nitrogen [Mass/Vol] 15 mg/dL Normal 5-23 [facility] Comment on above: Performed By: #### C REINA, BMP #### [facility] ([id number]) [address] [place] [address] 91493 CBC AND AUTO DIFFon 10-19-19 24 ABSOLUTE BASOPHIL 0.0 X10E9/L Normal 0.0-0.2 [facility] Comment on above: Performed By: #### C REINA, BMP #### [facility] ([id number]) [address] [place] [address] 82253 ABSOLUTE NEUTROPHIL 4.7 X10E9/L Normal 1.5-6.6 [facility] Comment on above: Performed By: #### C REINA, BMP #### [facility] ([id number]) [address] [place] [address] 79696 Basophils/100 WBC (Bld) 0.6 % Normal [facility] Comment on above: Performed By: #### C REINA, BMP #### [facility] ([id number]) [address] [place] [address] 55232 Eosinophils (Bld) [#/Vol] 0.3 10*3/uL Normal 0.0-0.4 [facility] Comment on above: Performed By: #### C REINA, BMP #### [facility] ([id number]) [address] [place] [address] 23967 Eosinophils/100 WBC (Bld) 3.5 % Normal [facility] Comment on above: Performed By: #### C REINA, BMP #### [facility] ([id number]) [address] [place] [address] 19841 Erythrocyte distribution width (RBC) [Ratio] 13.1 % Normal 11.5-15.0 [facility] Comment on above: Performed By: #### C REINA, BMP #### [facility] ([id number]) [address] [place] [address] 74439 Hematocrit (Bld) [Volume fraction] 37.9 % Normal 35-47 [facility] Comment on above: Performed By: #### C REINA, BMP #### [facility] ([id number]) [address] [place] [address] 83538 Hemoglobin (Bld) [Mass/Vol] 12.8 g/dL Normal 11.7-15.5 [facility] Comment on above: Performed By: #### C REINA, BMP #### [facility] ([id number]) [address] [place] [address] 89810 Lymphocytes (Bld) [#/Vol] 1.8 10*3/uL Normal 1.0-3.5 [facility] Comment on above: Performed By: #### C REINA, BMP #### [facility] ([id number]) [address] [place] [address] 20378 Lymphocytes/100 WBC (Bld) 24.1 % Normal [facility] Comment on above: Performed By: #### C REINA, BMP #### [facility] ([id number]) [address] [place] [address] MCH (RBC) [Entitic mass] 30.0 pg Normal 27-34 [facility] Comment on above: Performed By: #### C REINA, BMP #### [facility] ([id number]) [address] [place] [address] 88970 MCHC (RBC) [Mass/Vol] 33.7 g/dL Normal 32-36 [facility] Comment on above: Performed By: #### C REINA, BMP #### [facility] ([id number]) [address] [place] [address] 98435 MCV (RBC) [Entitic vol] 89 fL Normal 80-100 [facility] Comment on above: Performed By: #### C REINA, BMP #### [facility] ([id number]) [address] [place] [address] 55226 Monocytes (Bld) [#/Vol] 0.7 10*3/uL Normal 0-0.9 [facility] Comment on above: Performed By: #### C REINA, BMP #### [facility] ([id number]) [address] [place] [address] 77350 Monocytes/100 WBC (Bld) 9.3 % Normal [facility] Comment on above: Performed By: #### C REINA, BMP #### [facility] ([id number]) [address] [place] [address] 61690 Neutrophils/100 WBC (Bld) 62.5 % Normal [facility] Comment on above: Performed By: #### C REINA, BMP #### [facility] ([id number]) [address] [place] [address] 97607 Platelet mean volume (Bld) [Entitic vol] 7.3 fL Normal 7-12 [facility] Comment on above: Performed By: #### C REINA, BMP #### [facility] ([id number]) [address] [place] [address] 11282 Platelets (Bld) [#/Vol] 262 10*3/uL Normal 150-450 [facility] Comment on above: Performed By: #### C REINA, BMP #### [facility] ([id number]) [address] [place] [address] 61357 RBC COUNT 4.26 X10E12/L Normal 3.80-5.20 [facility] Comment on above: Performed By: #### C REINA, BMP #### [facility] ([id number]) [address] [place] [address] 61114 WBC (Bld) [#/Vol] 7.5 10*3/uL Normal 4.0-11.0 [facility] Comment on above: Performed By: #### Aurora HUANG, BMP #### [facility] ([id number]) [address] [place] [address] 30352 CHLAMYDIA/GC PCR, Uon 2023 CHLAMYDIA/GC PCR, U [...] on adequate specimen collection. Normal [facility] Comment on above: Performed By: #### C #### [facility] ([id number]) [address] [place] [address] [facility] ([id number]) [address] [address], [address] [place] [address] CT ABDOMEN AND PELVIS WO CON Ton [...] on 10/19/2023 1:18 AM Normal [facility] TRICHOMONAS PCRon 10-19-2023 TRICHOMONAS PCR SPECIMEN SOURCE CLEAN CATCH MIDSTREAM URINE TRICHOMONAS PCR Not detected (qualifier value) Trichomonas vaginalis not detected NOTE Assay methodology is nucleic acid amplification by real-time PCR for detection of Trichomonas vaginalis DNA performed on [employer] Instrument System. Normal [facility] Comment on above: Performed By: #### T RKPCR #### [facility] ([id number]) [address] [place] [address] [facility] ([id number]) [address] [place] [address], [address] [place] [address] URINALYSISon 10-19-2023 Bilirubin Ql (U) Negative Normal NEG [facility] Comment on above: Performed By: #### U A #### [facility] ([id number]) [address] [place] [address] 64808 BLOOD/HGB MODERATE Abnormal NEG [facility] Comment on above: Performed By: #### U A #### [facility] ([id number]) [address] [place] [address] 56912 Color (U) YELLOW Normal YELLOW [facility] Comment on above: Performed By: #### U A #### [facility] ([id number]) [address] [place] [address] 69320 Glucose Ql (U) Negative Normal NEG [facility] Comment on above: Performed By: #### U A #### [facility] ([id number]) [address] [place] [address] 25700 Ketones Ql (U) Negative Normal NEG [facility] Comment on above: Performed By: #### U A #### [facility] ([id number]) [address] [place] [address] 73210 Leukocyte esterase Test strip Ql (U) SMALL Abnormal NEG [facility] Comment on above: Performed By: #### U A #### [facility] ([id number]) [address] [place] [address] 60241 Nitrite Ql (U) Negative Normal NEG [facility] Comment on above: Performed By: #### U A #### [facility] ([id number]) [address] [place] [address] 14864 pH (U) 6.0 [pH] Normal 5.0-8.5 [facility] Comment on above: Performed By: #### U A #### [facility] ([id number]) [address] [place] [address] 09577 Protein Ql (U) Trace Abnormal NEG [facility] Comment on above: Performed By: #### U A #### [facility] ([id number]) [address] [place] [address] 76779 R.B.CELLS 4 /hpf Normal 0-5 [facility] Comment on above: Performed By: #### U A #### [facility] ([id number]) [address] [place] [address] 15328 Specific gravity (U) [Rel density] 1.025 Normal 1.003-1.035 [facility] Comment on above: Performed By: #### U A #### [facility] ([id number]) [address] [place] [address] 74307 SQUAMOUS EPITHELIUM 4 /hpf Normal 0-5 [facility] Comment on above: Performed By: #### U A #### [facility] ([id number]) [address] [place] [address] 63231 TRANSITIONAL EPITH 1 /hpf High 0 [facility] Comment on above: Performed By: #### U A #### [facility] ([id number]) [address] [place] [address] 01814 TURBIDITY CLEAR Normal CLEAR [facility] Comment on above: Performed By: #### U A #### [facility] ([id number]) [address] [place] [address] 57730 Urobilinogen Qn (U) 0.2 {Del'U}/dL Normal <1.1 [facility] Comment on above: Performed By: #### U A #### [facility] ([id number]) [address] [place] [address] 14501 W.B.CELLS 6 /hpf High 0-5 [facility] Comment on above: Performed By: #### U A #### [facility] ([id number]) [address] [place] [address] 36893 URINE CULTUREon 10-19-2023 Bacteria identified Cx Nom (U) CULTURE RESULTS 10-50,000 ORGANISMS/mL NORMAL UROGENITAL LIAM Normal [facility] Comment on above: Performed By: #### 6 30-4 #### [facility] ([id number]) [address], [address] [place] [address] Patient Educationon 01-09-20 23 Patient Education Obstetrics [...] provider. Document Revised: 08/17/2021 Document Reviewed: 08/17/2021 [employer] Patient Education ? 2022 [employer] [facility] Urology Office/Clinic Noteon 01-08-2023 Urology Office/Clinic Note Chief Complaint F/U to Cysto HPI Staff Last seen in our office 10/30/22 by JOE as a referral due to Microscopic Hematuria, Flank pain & Mixed Incontinence. Pt. was not able to give a urine sample today. S/P Cysto/UD by PRW 11/13/22 *Macrobid 100mg qd [id number] given post op Renal US 11/13/22 Dysuria: [...] Cysto/UD by PRW 11/13/22 *Macrobid 100mg qd [id number] given post op Pt states she is [...] understanding. Follow-up With When Contact Information FRED DUNCAN, AMELIE Ch, URL [address] [place] [address] Additional Instructions: PRN Patient Education Jacky Ruano I, Lamar Estrada, personally scribed for Amelie Esparza PA-C on 01/08/2023 15:11:32. . Documentation recorded by the scribjing Estrada accurately reflects the services(s) I performed [...] Father. Migraine: Mother. Parkinsons disease: Father. Normal [facility] Comment on above: Result Comment: Elec tronically Signed By: AMELIE ESPARZA PA-C\.br\Date and Time Signed: 01/08/23 15:16 EDT\.br\Electronically Co-Signed By: Lamar Estrada.br\Date and Time Co-Signed: 01/08/23 15:11 EDT Lab Reportson 11-26-2022 Lab Reports [id number] 6#1.00CD:127 Normal [facility] Lab Reports [id number] 8#1.00CD:127 [facility] Reports [id number] 7#1.00CD:127 [facility] Lab Reports [id number] 3#1.00CD:127 [facility] Lab Reports [id number] 9#1.00CD:127 [facility] RAD - Ultrasound Reporton RAD - Ultrasound Report [id number] #1.00CD:127 [facility] Operative Reporton Operative Report [id number] 7#1.00CD:127 [facility] Provider Letteron 11-14-2022 Provider Letter November 14, 2022 NEEL GARCIA [address] [place] [address] : 1980 To Whom It May Concern, [...] Constantino Martinez M.D., F.A.C.S. [facility] [address] [place] [address] [facility] RAD - Ultrasound Reporton RAD - Ultrasound Report [id number] #1.00CD:127 Normal [facility] Physician Referralon 023 Physician Referral [id number] #1.00CD:127 [facility] Screenson 11-02-2022 Screens [id number] 8#1.00CD:127 [facility] Pre-Certification Formon Pre-Certification Form [id number] 08#1.00CD:127 [facility] Ambulatory Visit Summaryon 0 10-30-2022 Ambulatory Visit Summary GARCIAKELLY BANKSMELANIE Harris :1980 Visit Date:10/30/2022 Ambulatory Visit Instructions Your [...] for Procedure/Surger yon 10-30-2022 Consent for Procedure/Surgery [id number] #1.00CD:127 [facility] HERPES SIMPLEX VIRUS (HSV) C ULTUREon 06-05-2022 HSV Culture/Type Comment Normal [facility] Comment on above: Result Comment: Nega tive No Herpes simplex virus isolated. Performed By: #### I NFLUAB #### [facility] [address] [place] [address] Dr. Cherie Dior CBC AUTO DIFFon 05-30-2022 BASO # 0.1 103/ul Normal 0.0-0.1 [facility] Comment on above: Performed By: #### I NFLUAB #### [facility] [address] [place] [address] Dr. Cherie Dior Basophils/100 WBC (Bld) 1.2 % Normal 0.2-2.0 [facility] Comment on above: Performed By: #### I NFLUAB #### [facility] [address] [place] [address] Dr. Cherie Dior EO # 0.1 103/ul Normal 0.0-0.7 [facility] Comment on above: Performed By: #### I NFLUAB #### [facility] [address] [place] [address] Dr. Cherie Dior Eosinophils/100 WBC (Bld) 1.9 % Normal 0.9-7.0 [facility] Comment on above: Performed By: #### I NFLUAB #### [facility] [address] [place] [address] Dr. Cherie Dior Erythrocyte distribution width (RBC) [Ratio] 14.9 % Normal 11.0-15.0 [facility] Comment on above: Performed By: #### I NFLUAB #### [facility] [address] [place] [address] Dr. Cherie Dior Hematocrit (Bld) [Volume fraction] 40.7 % Normal 36.0-48.0 [facility] Comment on above: Performed By: #### I NFLUAB #### [facility] [address] [place] [address] Dr. Cherie Dior Hemoglobin (Bld) [Mass/Vol] 12.8 g/dL Normal 12.0-16.0 [facility] Comment on above: Performed By: #### I NFLUAB #### [facility] [address] [place] [address] Dr. Cherie Dior IG # 0.05 10e3/ul Critically high 0.00-0.03 [facility] Comment on above: Performed By: #### I NFLUAB #### [facility] [address] [place] [address] Dr. Cherie Dior IG % 1.2 % Critically high 0.0-0.5 [facility] Comment on above: Performed By: #### I NFLUAB #### [facility] [address] [place] [address] Dr. Cherie Dior LYMPH # 0.9 103/ul Critically low 1.2-3.8 [facility] Comment on above: Performed By: #### I NFLUAB #### [facility] [address] [place] [address] Dr. Cherie Dior Lymphocytes/100 WBC (Bld) 21.8 % Normal 20.5-60.0 [facility] Comment on above: Performed By: #### I NFLUAB #### [facility] [address] [place] [address] Dr. Cherie Dior MANUAL DIFF REQ NO Normal [facility] Comment on above: Performed By: #### I NFLUAB #### [facility] [address] [place] [address] Dr. Cherie Dior MCH (RBC) [Entitic mass] 27.4 pg Normal 26.7-34.0 [facility] Comment on above: Performed By: #### I NFLUAB #### [facility] [address] [place] [address] Dr. Cherie Dior MCHC (RBC) [Mass/Vol] 31.4 g/dL Normal 29.9-35.2 [facility] Comment on above: Performed By: #### I NFLUAB #### [facility] [address] [place] [address] Dr. Cherie Dior MCV (RBC) [Entitic vol] 87.0 fL Normal 81.0-99.0 [facility] Comment on above: Performed By: #### I NFLUAB #### [facility] [address] [place] [address] Dr. Cherie Dior MONO # 0.7 103/ul Normal 0.3-0.8 [facility] Comment on above: Performed By: #### I NFLUAB #### [facility] [address] [place] [address] Dr. Cherie Dior Monocytes/100 WBC (Bld) 16.6 % Critically high 1.7-12.0 [facility] Comment on above: Performed By: #### I NFLUAB #### [facility] [address] [place] [address] Dr. Cherie Dior NEUT # 2.5 103/ul Normal 1.4-6.5 [facility] Comment on above: Performed By: #### I NFLUAB #### [facility] [address] [place] [address] Dr. Cherie Dior Neutrophils/100 WBC (Bld) 57.3 % Normal 43.0-75.0 [facility] Comment on above: Performed By: #### I NFLUAB #### [facility] [address] [place] [address] Dr. Cherie Dior Platelet mean volume (Bld) [Entitic vol] 10.2 fL Normal 9.5-13.[address] [facility] Comment on above: Performed By: #### I NFLUAB #### [facility] [address] [place] [address] Dr. Cherie Dior PLT 278 103/ul Normal 150-[address] [facility] Comment on above: Performed By: #### I NFLUAB #### [facility] [address] [place] [address] Dr. Cherie Dior RBC 4.68 106/ul Normal 4.20-5.[address] [facility] Comment on above: Performed By: #### I NFLUAB #### [facility] [address] [place] [address] Dr. Cherie Dior WBC 4.3 103/ul Normal 4.0-11.[address] [facility] Comment on above: Performed By: #### I NFLUAB #### [facility] [address] [place] [address] Dr. Cherie Dior CULTURE URINEon 05-30-2022 CULTURE URINE Culture Observations: NO GROWTH. Normal [facility] Comment on above: Performed By: #### I NFLUAB #### [facility] [address] [place] [address] Dr. Cherie Dior UA (CLEAN/CATCH) SALES DEVELOPER/MICRO I F IND.on 05-30-2022 Bilirubin Ql (U) Negative Normal NEGATIVE [facility] Comment on above: Performed By: #### B VETERINARY POULTRY INSPECTOR, CMADM, CMP #### [facility] [address] [place] [address] Dr. Cherie Dior Clarity (U) CLEAR Normal CLEAR [facility] Comment on above: Performed By: #### B VETERINARY POULTRY INSPECTOR, CMADM, CMP #### [facility] [address] [place] [address] Dr. Cherie Dior Color (U) LT. YELLOW Normal YELLOW [facility] Comment on above: Performed By: #### B VETERINARY POULTRY INSPECTOR, CMADM, CMP #### [facility] [address] [place] [address] Dr. Cherie Dior Glucose Ql (U) Negative Normal NEGATIVE [facility] Comment on above: Performed By: #### B VETERINARY POULTRY INSPECTOR, CMADM, CMP #### [facility] [address] [place] [address] Dr. Cherie Dior Hemoglobin Ql (U) LARGE Abnormal NEGATIVE [facility] Comment on above: Performed By: #### B VETERINARY POULTRY INSPECTOR, CMADM, CMP #### [facility] [address] [place] [address] Dr. Cherie Dior Ketones Ql (U) TRACE Abnormal NEGATIVE [facility] Comment on above: Performed By: #### B VETERINARY POULTRY INSPECTOR, CMADM, CMP #### [facility] [address] [place] [address] Dr. Cherie Dior LEUKOCYTES MODERATE Abnormal NEGATIVE [facility] Comment on above: Performed By: #### B VETERINARY POULTRY INSPECTOR, CMADM, CMP #### [facility] [address] [place] [address] Dr. Cherie Dior Nitrite Ql (U) Negative Normal NEGATIVE [facility] Comment on above: Performed By: #### B VETERINARY POULTRY INSPECTOR, CMADM, CMP #### [facility] [address] [address] [address] Cherie Dior pH (U) 6.0 [pH] Normal 5-[address] [facility] Comment on above: Performed By: #### B VETERINARY POULTRY INSPECTOR, CMADM, CMP #### [facility] [address] [address] [address] Cherie Dior SPEC GRAVITY 1.020 Normal 1.005-<=1.025 [facility] Comment on above: Performed By: #### B VETERINARY POULTRY INSPECTOR, CMADM, CMP #### [facility] [address] [place] [address] Dr. Cherie Dior UA PROTEIN 30 mg/dl Abnormal NEGATIVE/ TRACE [facility] Comment on above: Performed By: #### B VETERINARY POULTRY INSPECTOR, CMADM, CMP #### [facility] [address] [place] [address] Dr. Cherie Dior UR MICRO IND INDICATED Normal [facility] Comment on above: Performed By: #### B VETERINARY POULTRY INSPECTOR, CMADM, CMP #### [facility] [address] [place] [address] Dr. Cherie Dior Urobilinogen Qn (U) 0.2 {Del'U}/dL Normal 0.2 - 1. 0 [facility] Comment on above: Performed By: #### B VETERINARY POULTRY INSPECTOR, CMADM, CMP #### [facility] [address] [place] [address] Dr. Cherie Dior URINE MICROSCOPIC ONLYon BACTERIA SMALL Abnormal NONE SEEN [facility] Comment on above: Performed By: #### B VETERINARY POULTRY INSPECTOR, CMADM, CMP #### [facility] [address] [place] [address] Dr. Cherie Dior Bacteria identified Cx Nom (U) INDICATED Normal [facility] Comment on above: Performed By: #### B VETERINARY POULTRY INSPECTOR, CMADM, CMP #### [facility] [address] [place] [address] Dr. Cherie Dior CAST NONE SEEN Normal NONE SEEN [facility] Comment on above: Performed By: #### B VETERINARY POULTRY INSPECTOR, CMADM, CMP #### [facility] [address] [place] [address] Dr. Cherie Dior Crystals LM Nom (Urine sed) NONE SEEN Normal NONE SEEN [facility] Comment on above: Performed By: #### B VETERINARY POULTRY INSPECTOR, CMADM, CMP #### [facility] [address] [place] [address] Dr. Cherie Dior Epithelial cells LM Ql (Urine sed) MODERATE Abnormal NONE SEEN /RARE [facility] Comment on above: Performed By: #### B VETERINARY POULTRY INSPECTOR, CMADM, CMP #### [facility] [address] [place] [address] Dr. Cherie Dior MUCOUS TRACE Abnormal NONE SEEN The [facility] Comment on above: Performed By: #### B VETERINARY POULTRY INSPECTOR, CMADM, CMP #### [facility] [address] [place] [address] Dr. Cherie Dior RBC 2-5 Abnormal 0-2 [facility] Comment on above: Performed By: #### B VETERINARY POULTRY INSPECTOR, CMADM, CMP #### [facility] [address] [place] [address] Dr. Cherie Dior WBC 2-5 Abnormal NONE SEEN The [facility] Comment on above: Performed By: #### B VETERINARY POULTRY INSPECTOR, CMADM, CMP #### [facility] [address] [place] [address] Dr. Cherie Dior Covid-19 PCR ([facility])on SARS-CoV-2 (COVID-19) RNA JULEE+probe Ql (Unsp spec) Not detected Normal NOT DETECTED The [facility] Comment on above: Result Comment: [...] for this test is supported by the [place] of Health and Human Service's declaration that [...] By: #### I NFLUAB #### [facility] [address] [place] [address] Dr. Cherie Dior GROUP A STREP CULTUREon S. pyogenes Ag Ql (Unsp spec) Culture Observations: NEGATIVE FOR GROUP A STREPTOCOCCUS. Normal The [facility] Comment on above: Performed By: #### G RASTCX, SSCRN #### [facility] [address] [place] [address] Dr. Cherie Dior INFLUENZA A AND B AGon 05-27 INFLUANEGH SEE BELOW Normal The [facility] Comment on above: Result Comment: Nega tive for Flu A protein angiten. Infection due to Flu A cannot be ruled out. Flu A angiten in the sample may be below the detection limit of the test. Performed By: #### I NFLUAB #### [facility] [address] [place] [address] Dr. Cherie Dior INFLUBNEGH SEE BELOW Normal The [facility] Comment on above: Result Comment: Nega tive for Flu B protein antigen. Infection due to Flu B cannot be ruled out. Flu B antigen in the sample may be below the detection limit of the test. Performed By: #### I NFLUAB #### [facility] [address] [place] [address] Dr. Cherie Dior INFLUENZA A AG Negative Normal NEGATIVE SEE COMMENT The [facility] Comment on above: Performed By: #### I NFLUAB #### [facility] [address] [place] [address] Dr. Cherie Dior INFLUENZA B AG Negative Normal NEGATIVE SEE COMMENT The [facility] Comment on above: Performed By: #### I NFLUAB #### [facility] [address] [place] [address] Dr. Cherie Dior STREPT SCREENon 05-27-2022 STREP SCREEN A Negative Normal NEGATIVE The [facility] Comment on above: Performed By: #### G RASTCX, SSCRN #### [facility] [address] [place] [address] Dr. Cherie Dior US TOMAS DOP LEG [...] by: BRYAN JONES Date: 2022-02-27 06:57 Normal [facility] BNPon 02-25-2022 Natriuretic peptide B (Bld) [Mass/Vol] 36.0 pg/mL Normal <=450.0 [facility] Comment on above: Performed By: #### B VETERINARY POULTRY INSPECTOR, CMADM, CMP #### [facility] [address] [place] [address] Dr. Cherie Dior CARDIAC ALEX ADMITon 022 CK [Catalytic activity/Vol] 150 U/L Normal 26-192 [facility] Comment on above: Performed By: #### B VETERINARY POULTRY INSPECTOR, CMADM, CMP #### [facility] [address] [place] [address] Dr. Cherie Dior CK.MB [Mass/Vol] 0.43 ng/mL Normal <=3.60 [facility] Comment on above: Performed By: #### B VETERINARY POULTRY INSPECTOR, CMADM, CMP #### [facility] [address] [place] [address] Dr. Cherie Dior HSTROP 4.7 pg/mL Normal 4.0-51.3 [facility] Comment on above: Result Comment: CUT- OFF POINTS HAVE BEEN ESTABLISHED BASED ON THE FOURTH UNIVERSAL DEFINITIONS OF MYOCARDIAL INFARCTION. THE UPPER REFERENCE LIMIT (URL) OF TROPONIN, DEFINED THE 99TH PERCENTILE OF cTnI DISTRIBUTION IN A REFERENCE POPULATION, HAS BEEN CONFIRMED THE DECISION THRESHOLD FOR NE DIAGNOSIS. Performed By: #### B VETERINARY POULTRY INSPECTOR, CMADM, CMP #### [facility] [address] [place] [address] Dr. Cherie Dior FRANCISCO 32 ng/mL Normal 9-[address] [facility] Comment on above: Performed By: #### B VETERINARY POULTRY INSPECTOR, CMADM, CMP #### [facility] [address] [place] [address] Dr. Cherie Dior CBC AUTO DIFFon 02-25-2022 BASO # 0.0 103/ul Normal 0.0-0.[address] [facility] Comment on above: Performed By: #### B VETERINARY POULTRY INSPECTOR, CMADM, CMP #### [facility] [address] [place] [address] Dr. Cherie Dior Basophils/100 WBC (Bld) 0.4 % Normal 0.2-2.[address] [facility] Comment on above: Performed By: #### B VETERINARY POULTRY INSPECTOR, CMADM, CMP #### [facility] [address] [place] [address] Dr. Cherie Dior EO # 0.2 103/ul Normal 0.0-0.[address] [facility] Comment on above: Performed By: #### B VETERINARY POULTRY INSPECTOR, CMADM, CMP #### [facility] [address] [place] [address] Dr. Cherie Dior Eosinophils/100 WBC (Bld) 1.8 % Normal 0.9-7.[address] [facility] Comment on above: Performed By: #### B VETERINARY POULTRY INSPECTOR, CMADM, CMP #### [facility] [address] [place] [address] Dr. Cherie Dior Erythrocyte distribution width (RBC) [Ratio] 12.6 % Normal 11.0-15.[address] [facility] Comment on above: Performed By: #### B VETERINARY POULTRY INSPECTOR, CMADM, CMP #### [facility] [address] [place] [address] Dr. Cherie Dior Hematocrit (Bld) [Volume fraction] 32.9 % Critically low 36.0-48.[address] [facility] Comment on above: Performed By: #### B VETERINARY POULTRY INSPECTOR, CMADM, CMP #### [facility] [address] [place] [address] Dr. Cherie Dior Hemoglobin (Bld) [Mass/Vol] 10.5 g/dL Critically low 12.0-16.[address] [facility] Comment on above: Performed By: #### B VETERINARY POULTRY INSPECTOR, CMADM, CMP #### [facility] [address] [address] [address] Cherie Dior IG # 0.12 10e3/ul Critically high 0.00-0.03 [facility] Comment on above: Performed By: #### B VETERINARY POULTRY INSPECTOR, CMADM, CMP #### [facility] [address] [place] [address] Dr. Cherie Dior IG % 1.4 % Critically high 0.0-0.5 [facility] Comment on above: Performed By: #### B VETERINARY POULTRY INSPECTOR, CMADM, CMP #### [facility] [address] [place] [address] Dr. Cherie Dior LYMPH # 1.7 103/ul Normal 1.2-3.8 [facility] Comment on above: Performed By: #### B VETERINARY POULTRY INSPECTOR, CMADM, CMP #### [facility] [address] [place] [address] Dr. Cherie Dior Lymphocytes/100 WBC (Bld) 20.1 % Critically low 20.5-60.0 [facility] Comment on above: Performed By: #### B VETERINARY POULTRY INSPECTOR, CMADM, CMP #### [facility] [address] [place] [address] Dr. Cherie Dior MANUAL DIFF REQ NO Normal [facility] Comment on above: Performed By: #### B VETERINARY POULTRY INSPECTOR, CMADM, CMP #### [facility] [address] [place] [address] Dr. Cherie Dior MCH (RBC) [Entitic mass] 28.8 pg Normal 26.7-34.0 [facility] Comment on above: Performed By: #### B VETERINARY POULTRY INSPECTOR, CMADM, CMP #### [facility] [address] [place] [address] Dr. Cherie Dior MCHC (RBC) [Mass/Vol] 31.9 g/dL Normal 29.9-35.2 [facility] Comment on above: Performed By: #### B VETERINARY POULTRY INSPECTOR, CMADM, CMP #### [facility] [address] [place] [address] Dr. Cherie Dior MCV (RBC) [Entitic vol] 90.4 fL Normal 81.0-99.[address] [facility] Comment on above: Performed By: #### B VETERINARY POULTRY INSPECTOR, KAIDM, CMP #### [facility] [address] [place] [address] Dr. Cherie Dior MONO # 0.9 103/ul Critically high 0.3-0.8 [facility] Comment on above: Performed By: #### B VETERINARY POULTRY INSPECTOR, CMADM, CMP #### [facility] [address] [place] [address] Dr. Cherie Dior Monocytes/100 WBC (Bld) 10.4 % Normal 1.7-12.[address] [facility] Comment on above: Performed By: #### B VETERINARY POULTRY INSPECTOR, CMADM, CMP #### [facility] [address] [place] [address] Dr. Cherie Dior NEUT # 5.6 103/ul Normal 1.4-6.[address] [facility] Comment on above: Performed By: #### B VETERINARY POULTRY INSPECTOR, CMADM, CMP #### [facility] [address] [place] [address] Dr. Cherie Dior Neutrophils/100 WBC (Bld) 65.9 % Normal 43.0-75.[address] [facility] Comment on above: Performed By: #### B VETERINARY POULTRY INSPECTOR, KAIDM, CMP #### [facility] [address] [place] [address] Dr. Cherie Dior Platelet mean volume (Bld) [Entitic vol] 9.0 fL Critically low 9.5-13.[address] [facility] Comment on above: Performed By: #### B VETERINARY POULTRY INSPECTOR, CMADM, CMP #### [facility] [address] [place] [address] Dr. Cherie Dior PLT 381 103/ul Normal 150-[address] [facility] Comment on above: Performed By: #### B VETERINARY POULTRY INSPECTOR, CMADM, CMP #### [facility] [address] [place] [address] Dr. Cherie Dior RBC 3.64 106/ul Critically low 4.20-5.40 [facility] Comment on above: Performed By: #### B VETERINARY POULTRY INSPECTOR, KAIDM, CMP #### [facility] [address] [place], [place] [address] Dr. Cherie Dior WBC 8.4 103/ul Normal 4.0-11.0 [facility] Comment on above: Performed By: #### B MEAGHAN OSORIO, CMP #### [facility] [address] [place], [place] [address] Dr. Cherie Dior CTA CHEST WO W [...] The subdiaphragmatic abdominal organs included in the [id number] do not demonstrate any acute abnormality allowing for some fatty infiltration of the liver.. IMPRESSION: No CT evidence for acute pulmonary embolus. Electronically authenticated by: WICHO RAINEY Date: 2022-02-25 19:[address] Normal [address] [facility] D-DIMERon 02-25-2022 D-DIMER 6.44 mg/L FEU Critically high <=0.59 [facility] Comment on above: Performed By: #### B MEAGHAN OSORIO, CMP #### [facility] [address] [place] [address] Dr. Cherie Dior D-DIMER COMMENTS SEE BELOW Normal [facility] Comment on above: Result Comment: Incr eases [...] and generalized hospitalization. Performed By: #### B VETERINARY POULTRY INSPECTORMEAGHAN, CMP #### [facility] [address] [place] [address] Dr. Cherie Dior ER URINE PROFILEon 2 Bilirubin Ql (U) Negative Normal NEGATIVE [facility] Comment on above: Performed By: #### B MEAGHAN OSORIO, CMP #### [facility] [address] [place] [address] Dr. Cherie Dior Clarity (U) CLEAR Normal CLEAR [facility] Comment on above: Performed By: #### B VETERINARY POULTRY INSPECTORMEAGHAN, CMP #### [facility] [address] [place] [address] Dr. Cherie Dior Color (U) LT. YELLOW Normal YELLOW [facility] Comment on above: Performed By: #### B VETERINARY POULTRY INSPECTORMEAGHAN, CMP #### [facility] [address] [place] [address] Dr. Cherie Dior ERUAHD A micrscopic examination will be performed if indicated. Normal [facility] Comment on above: Performed By: #### B VETERINARY POULTRY INSPECTOR, KAIDM, CMP #### [facility] [address] [place] [address] Dr. Cherie Dior Glucose Ql (U) Negative Normal NEGATIVE [facility] Comment on above: Performed By: #### B VETERINARY POULTRY INSPECTOR, MEAGHAN, CMP #### [facility] [address] [place] [address] Dr. Cherie Dior Hemoglobin Ql (U) SMALL Abnormal NEGATIVE [facility] Comment on above: Performed By: #### B VETERINARY POULTRY INSPECTOR, CMADM, CMP #### [facility] [address] [address] [address] Cherie Dior Ketones Ql (U) Negative Normal NEGATIVE [facility] Comment on above: Performed By: #### B VETERINARY POULTRY INSPECTOR, CMADM, CMP #### [facility] [address] [address] [address] Cherie Dior LEUKOCYTES Negative Normal NEGATIVE [facility] Comment on above: Performed By: #### B VETERINARY POULTRY INSPECTOR, CMADM, CMP #### [facility] [address] [address] [address] Cherie Dior Nitrite Ql (U) Negative Normal NEGATIVE [facility] Comment on above: Performed By: #### B VETERINARY POULTRY INSPECTOR, CMADM, CMP #### [facility] [address] [address] [address] Cherie Dior pH (U) 6.0 [pH] Normal 5-9 [facility] Comment on above: Performed By: #### B VETERINARY POULTRY INSPECTOR, CMADM, CMP #### [facility] [address] [address] [address] Cherie Dior SPEC GRAVITY 1.020 Normal 1.005-<=1.025 [facility] Comment on above: Performed By: #### B VETERINARY POULTRY INSPECTOR, CMADM, CMP #### [facility] [address] [address] [address] Cherie Dior UA PROTEIN Negative Normal NEGATIVE/ TRACE [facility] Comment on above: Performed By: #### B VETERINARY POULTRY INSPECTOR, CMADM, CMP #### [facility] [address] [address] [address] Cherie Dior UR MICRO IND INDICATED Normal [facility] Comment on above: Performed By: #### B VETERINARY POULTRY INSPECTOR, CMADM, CMP #### [facility] [address] [address] [address] Cherie Dior Urobilinogen Qn (U) 0.2 {Del'U}/dL Normal 0.2 - 1. 0 [facility] Comment on above: Performed By: #### B VETERINARY POULTRY INSPECTOR, CMADM, CMP #### [facility] [address] [address] [address] Cherie Dior PROF 14(COMP METB)on 022 Albumin [Mass/Vol] 3.8 g/dL Normal 3.4-5.0 [facility] Comment on above: Performed By: #### B VETERINARY POULTRY INSPECTOR, CMADM, CMP #### [facility] [address] [address] [address] Cherie Dior Albumin/Globulin [Mass ratio] 0.8 {ratio} Normal [facility] Comment on above: Performed By: #### B VETERINARY POULTRY INSPECTOR, CMADM, CMP #### [facility] [address] [address] [address] Cherie Dior ALP [Catalytic activity/Vol] 72 U/L Normal 46-116 [facility] Comment on above: Performed By: #### B VETERINARY POULTRY INSPECTOR, CMADM, CMP #### [facility] [address] [address] [address] Cherie Dior ALT [Catalytic activity/Vol] 21 U/L Normal 14-59 [facility] Comment on above: Performed By: #### B VETERINARY POULTRY INSPECTOR, CMADM, CMP #### [facility] [address] [address] [address] Cherie Dior Anion gap [Moles/Vol] 10.5 mmol/L Normal [facility] Comment on above: Performed By: #### B VETERINARY POULTRY INSPECTOR, CMADM, CMP #### [facility] [address] [address] [address] Cherie Dior AST [Catalytic activity/Vol] 13 U/L Critically low 15-37 [facility] Comment on above: Performed By: #### B VETERINARY POULTRY INSPECTOR, CMADM, CMP #### [facility] [address] [address] [address] Cherie Dior Bilirubin [Mass/Vol] 0.5 mg/dL Normal 0.2-1.0 [facility] Comment on above: Performed By: #### B VETERINARY POULTRY INSPECTOR, CMADM, CMP #### [facility] [address] [address] [address] Cherie Dior Calcium [Mass/Vol] 9.0 mg/dL Normal 8.5-10.1 [facility] Comment on above: Performed By: #### B VETERINARY POULTRY INSPECTOR, CMADM, CMP #### [facility] [address] [place] [address] Dr. Cherie Dior Chloride [Moles/Vol] 104 mmol/L Normal 98-[address] [facility] Comment on above: Performed By: #### B VETERINARY POULTRY INSPECTOR, CMADM, CMP #### [facility] [address] [place] [address] Dr. Cherie Dior CO2 [Moles/Vol] 25.3 mmol/L Normal 21.0-32.0 [facility] Comment on above: Performed By: #### B VETERINARY POULTRY INSPECTOR, CMADM, CMP #### [facility] [address] [place] [address] Dr. Cherie Dior Creatinine [Mass/Vol] 0.86 mg/dL Normal 0.55-1.02 [facility] Comment on above: Performed By: #### B VETERINARY POULTRY INSPECTOR, CMADM, CMP #### [facility] [address] [place] [address] Dr. Cherie Dior EGFR-AF NIUEAN >60 Normal >=60 [facility] Comment on above: Performed By: #### B VETERINARY POULTRY INSPECTOR, CMADM, CMP #### [facility] [address] [place] [address] Dr. Cherie Dior EGFR-NON AF NIUEAN >60 Normal >=[address] [facility] Comment on above: Performed By: #### B VETERINARY POULTRY INSPECTOR, CMADM, CMP #### [facility] [address] [place] [address] Dr. Cherie Dior Globulin (S) [Mass/Vol] 4.5 g/dL Normal [facility] Comment on above: Performed By: #### B VETERINARY POULTRY INSPECTOR, CMADM, CMP #### [facility] [address] [place] [address] Dr. Cherie Dior Glucose [Mass/Vol] 85 mg/dL Normal 74-106 [facility] Comment on above: Performed By: #### B VETERINARY POULTRY INSPECTOR, CMADM, CMP #### [facility] [address] [place] [address] Dr. Cherie Dior Potassium [Moles/Vol] 3.8 mmol/L Normal 3.5-5.1 [facility] Comment on above: Performed By: #### B VETERINARY POULTRY INSPECTORMEAGHAN, CMP #### [facility] [address] [address] [address] Cherie Dior Protein [Mass/Vol] 8.3 g/dL Critically high 6.4-8.2 [facility] Comment on above: Performed By: #### B VETERINARY POULTRY INSPECTORMEAGHAN, CMP #### [facility] [address] [place] [address] Dr. Cherie Dior Sodium [Moles/Vol] 136 mmol/L Normal 136-145 [facility] Comment on above: Performed By: #### B VETERINARY POULTRY INSPECTORMEAGHAN, CMP #### [facility] [address] [place] [address] Dr. Cherie Dior Urea nitrogen [Mass/Vol] 14.0 mg/dL Normal 7.0-18.0 [facility] Comment on above: Performed By: #### B VETERINARY POULTRY INSPECTORMEAGHAN, CMP #### [facility] [address] [place] [address] Dr. Cherie Dior Urea nitrogen/Creatinine [Mass ratio] 16.3 mg/mg Normal [facility] Comment on above: Performed By: #### B VETERINARY POULTRY INSPECTORMEAGHAN, CMP #### [facility] [address] [place] [address] Dr. Cherie Dior PROTIMEon 02-25-2022 INR Coag (PPP) [Relative time] 0.97 {INR} Normal [facility] Comment on above: Performed By: #### B VETERINARY POULTRY INSPECTORMEAGHAN, CMP #### [facility] [address] [place] [address] Dr. Cherie Dior INR GUIDELINES SEE BELOW Normal [facility] Comment on above: Result Comment: JORDEN RED INR: 2.0 - 3.0 CONDITIONS NOT LISTED BELOW 2.5 - 3.5 FOR PROSTHETIC HEART VALVE REPLACEMENT 2.5 - 3.5 RECURRENT THROMBOSIS Performed By: #### B VETERINARY POULTRY INSPECTOR, MEAGHAN, CMP #### [facility] [address] [place] [address] Dr. Cherie Dior PT Coag (PPP) [Time] 10.5 s Normal 9.0-11.6 [facility] Comment on above: Performed By: #### B VETERINARY POULTRY INSPECTOR, MEAGHAN, CMP #### [facility] [address] [place] [address] Dr. Cherie Dior PTTon 02-25-2022 aPTT Coag (Bld) [Time] 29.1 s Normal 22.3-36.2 [facility] Comment on above: Performed By: #### B VETERINARY POULTRY INSPECTOR, KAIDM, CMP #### [facility] [address] [place] [address] Dr. Cherie Dior URINE MICROSCOPIC ONLYon BACTERIA NONE SEEN Normal NONE SEEN [facility] Comment on above: Performed By: #### B VETERINARY POULTRY INSPECTOR, MEAGHAN, CMP #### [facility] [address] [place] [address] Dr. Cherie Dior Bacteria identified Cx Nom (U) NOT INDICATED Normal [facility] Comment on above: Performed By: #### B VETERINARY POULTRY INSPECTOR, KAIDM, CMP #### [facility] [address] [place] [address] Dr. Cherie Dior CAST NONE SEEN Normal NONE SEEN [facility] Comment on above: Performed By: #### B VETERINARY POULTRY INSPECTOR, MEAGHAN, CMP #### [facility] [address] [place] [address] Dr. Cherie Dior Crystals LM Nom (Urine sed) NONE SEEN Normal NONE SEEN [facility] Comment on above: Performed By: #### B VETERINARY POULTRY INSPECTOR, KAIDM, CMP #### [facility] [address] [place] [address] Dr. Cherie Dior Epithelial cells LM Ql (Urine sed) FEW Abnormal NONE SEEN /RARE [facility] Comment on above: Performed By: #### B VETERINARY POULTRY INSPECTOR, KAIDM, CMP #### [facility] [address] [place] [address] Dr. Cherie Dior MUCOUS TRACE Abnormal NONE SEEN The [facility] Comment on above: Performed By: #### B VETERINARY POULTRY INSPECTOR, MEAGHAN, CMP #### [facility] [address] [place] [address] Dr. Cherie Dior RBC 5-10 Abnormal 0-2 [facility] Comment on above: Performed By: #### B VETERINARY POULTRY INSPECTOR, CMADM, CMP #### [facility] [address] [place] [address] Dr. Cherie Dior WBC NONE SEEN Normal NONE SEEN [facility] Comment on above: Performed By: #### B VETERINARY POULTRY INSPECTOR, CMADM, CMP #### [facility] [address] [place] [address] Dr. Cherie Dior Operative Reporton 2 Operative Report [id number] #1.00CD:127 Normal [facility] BUNon 02-16-2022 Urea nitrogen [Mass/Vol] 9.0 mg/dL Normal 7.0-18.0 [facility] Comment on above: Performed By: #### B UN, CREA #### [facility] [address] [place] [address] Dr. Cherie Dior CBC AUTO DIFFon 02-16-2022 BASO # 0.0 103/ul Normal 0.0-0.1 [facility] Comment on above: Performed By: #### C BC #### [facility] [address] [place] [address] Dr. Cherie Dior Basophils/100 WBC (Bld) 0.1 % Critically low 0.2-2.0 [facility] Comment on above: Performed By: #### C BC #### [facility] [address] [place] [address] Dr. Cherie Dior EO # 0.0 103/ul Normal 0.0-0.7 [facility] Comment on above: Performed By: #### C BC #### [facility] [address] [place] [address] Dr. Cherie Dior Eosinophils/100 WBC (Bld) 0.0 % Critically low 0.9-7.0 [facility] Comment on above: Performed By: #### C BC #### [facility] [address] [place] [address] Dr. Cherie Dior Erythrocyte distribution width (RBC) [Ratio] 12.6 % Normal 11.0-15.0 [facility] Comment on above: Performed By: #### C BC #### [facility] [address] [place] [address] Dr. Cherie Dior Hematocrit (Bld) [Volume fraction] 31.0 % Critically low 36.0-48.0 [facility] Comment on above: Performed By: #### C BC #### [facility] [address] [place] [address] Dr. Cherie Dior Hemoglobin (Bld) [Mass/Vol] 10.2 g/dL Critically low 12.0-16.0 [facility] Comment on above: Performed By: #### C BC #### [facility] [address] [place] [address] Dr. Cherie Dior IG # 0.04 10e3/ul Critically high 0.00-0.03 [facility] Comment on above: Performed By: #### C BC #### [facility] [address] [place] [address] Dr. Cherie Dior IG % 0.3 % Normal 0.0-0.5 [facility] Comment on above: Performed By: #### C BC #### [facility] [address] [place] [address] Dr. Cherie Dior LYMPH # 1.1 103/ul Critically low 1.2-3.8 [facility] Comment on above: Performed By: #### C BC #### [facility] [address] [place] [address] Dr. Cherie Dior Lymphocytes/100 WBC (Bld) 9.6 % Critically low 20.5-60.0 [facility] Comment on above: Performed By: #### C BC #### [facility] [address] [place] [address] Dr. Cherie Dior MANUAL DIFF REQ NO Normal [facility] Comment on above: Performed By: #### C BC #### [facility] [address] [place] [address] Dr. Cherie Dior MCH (RBC) [Entitic mass] 29.1 pg Normal 26.7-34.0 [facility] Comment on above: Performed By: #### C BC #### [facility] [address] [address] [address] Cherie Dior MCHC (RBC) [Mass/Vol] 32.9 g/dL Normal 29.9-35.2 [facility] Comment on above: Performed By: #### C BC #### [facility] [address] [address] [address] Cherie Dior MCV (RBC) [Entitic vol] 88.3 fL Normal 81.0-99.0 [facility] Comment on above: Performed By: #### C BC #### [facility] [address] [address] [address] Cherie Dior MONO # 1.2 103/ul Critically high 0.3-0.8 [facility] Comment on above: Performed By: #### C BC #### [facility] [address] [address] [address] Cherie Dior Monocytes/100 WBC (Bld) 9.9 % Normal 1.7-12.0 [facility] Comment on above: Performed By: #### C BC #### [facility] [address] [address] [address] Cherie Dior NEUT # 9.5 103/ul Critically high 1.4-6.5 [facility] Comment on above: Performed By: #### C BC #### [facility] [address] [address] [address] Cherie Dior Neutrophils/100 WBC (Bld) 80.1 % Critically high 43.0-75.[address] [facility] Comment on above: Performed By: #### C BC #### [facility] [address] [address] [address] Cherie Dior Platelet mean volume (Bld) [Entitic vol] 9.5 fL Normal 9.5-13.[address] [facility] Comment on above: Performed By: #### C BC #### [facility] [address] [address] [address] Cherie Dior PLT 225 103/ul Normal 150-[address] [facility] Comment on above: Performed By: #### C BC #### [facility] [address] [place] [address] Dr. Cherie Dior RBC 3.51 106/ul Critically low 4.20-5.40 [facility] Comment on above: Performed By: #### C BC #### [facility] [address] [place] [address] Dr. Cherie Dior WBC 11.8 103/ul Critically high 4.0-11.0 [facility] Comment on above: Performed By: #### C BC #### [facility] [address] [place] [address] Dr. Cherie Dior CREATININEon 02-16-2022 Creatinine [Mass/Vol] 0.98 mg/dL Normal 0.55-1.02 [facility] Comment on above: Performed By: #### B UN, CREA #### [facility] [address] [place] [address] Dr. Cherie Dior EGFR-AF NIUEAN >60 Normal >=60 [facility] Comment on above: Performed By: #### B UN, CREA #### [facility] [address] [place] [address] Dr. Cherie Dior EGFR-NON AF NIUEAN >60 Normal >=60 [facility] Comment on above: Performed By: #### B UN, CREA #### [facility] [address] [place] [address] Dr. Cherie Dior PREG HCG QUALon 02-15-2022 , QUAL Negative Normal NEGATIVE [facility] Comment on above: Performed By: #### I NFLUAB #### [facility] [address] [place] [address] Dr. Cherie Dior Consent for Procedure/Surger yon 02-14-2022 Consent for Procedure/Surgery [id number] #1.00CD:127 Normal [facility] CBC AUTO DIFFon 02-12-2022 BASO # 0.0 103/ul Normal 0.0-0.1 [facility] Comment on above: Performed By: #### B VETERINARY POULTRY INSPECTOR, CMADM, CMP #### [facility] [address] [place] [address] Dr. Cherie Dior Basophils/100 WBC (Bld) 0.6 % Normal 0.2-2.0 [facility] Comment on above: Performed By: #### B VETERINARY POULTRY INSPECTOR, CMADM, CMP #### [facility] [address] [place] [address] Dr. Cherie Dior EO # 0.1 103/ul Normal 0.0-0.[address] [facility] Comment on above: Performed By: #### B VETERINARY POULTRY INSPECTOR, CMADM, CMP #### [facility] [address] [place] [address] Dr. Cherie Dior Eosinophils/100 WBC (Bld) 4.0 % Normal 0.9-7.0 [facility] Comment on above: Performed By: #### B VETERINARY POULTRY INSPECTOR, CMADM, CMP #### [facility] [address] [place] [address] Dr. Cherie Dior Erythrocyte distribution width (RBC) [Ratio] 12.9 % Normal 11.0-15.0 [facility] Comment on above: Performed By: #### B VETERINARY POULTRY INSPECTOR, CMADM, CMP #### [facility] [address] [place] [address] Dr. Cherie Dior Hematocrit (Bld) [Volume fraction] 38.8 % Normal 36.0-48.0 [facility] Comment on above: Performed By: #### B VETERINARY POULTRY INSPECTOR, CMADM, CMP #### [facility] [address] [place] [address] Dr. Cherie Dior Hemoglobin (Bld) [Mass/Vol] 12.6 g/dL Normal 12.0-16.[address] [facility] Comment on above: Performed By: #### B VETERINARY POULTRY INSPECTOR, CMADM, CMP #### [facility] [address] [place] [address] Dr. Cherie Dior IG # 0.00 10e3/ul Normal 0.00-0.03 [facility] Comment on above: Performed By: #### B VETERINARY POULTRY INSPECTOR, CMADM, CMP #### [facility] [address] [place] [address] Dr. Cherie Dior IG % 0.0 % Normal 0.0-0.5 [facility] Comment on above: Performed By: #### B VETERINARY POULTRY INSPECTOR, CMADM, CMP #### [facility] [address] [address] [address] Cherie Dior LYMPH # 1.3 103/ul Normal 1.2-3.[address] [facility] Comment on above: Performed By: #### B VETERINARY POULTRY INSPECTOR, CMADM, CMP #### [facility] [address] [place] [address] Dr. Cherie Dior Lymphocytes/100 WBC (Bld) 36.5 % Normal 20.5-60.[address] [facility] Comment on above: Performed By: #### B VETERINARY POULTRY INSPECTOR, CMADM, CMP #### [facility] [address] [place] [address] Dr. Cherie Dior MANUAL DIFF REQ NO Normal [facility] Comment on above: Performed By: #### B VETERINARY POULTRY INSPECTOR, CMADM, CMP #### [facility] [address] [place] [address] Dr. Cherie Dior MCH (RBC) [Entitic mass] 29.4 pg Normal 26.7-34.[address] [facility] Comment on above: Performed By: #### B VETERINARY POULTRY INSPECTOR, CMADM, CMP #### [facility] [address] [place] [address] Dr. Cherie Dior MCHC (RBC) [Mass/Vol] 32.5 g/dL Normal 29.9-35.[address] [facility] Comment on above: Performed By: #### B VETERINARY POULTRY INSPECTOR, CMADM, CMP #### [facility] [address] [place] [address] Dr. Cherie Dior MCV (RBC) [Entitic vol] 90.7 fL Normal 81.0-99.[address] [facility] Comment on above: Performed By: #### B VETERINARY POULTRY INSPECTOR, CMADM, CMP #### [facility] [address] [place] [address] Dr. Cherie Dior MONO # 0.5 103/ul Normal 0.3-0.[address] [facility] Comment on above: Performed By: #### B VETERINARY POULTRY INSPECTOR, CMADM, CMP #### [facility] [address] [place] [address] Dr. Cherie Dior Monocytes/100 WBC (Bld) 12.9 % Critically high 1.7-12.0 [facility] Comment on above: Performed By: #### B VETERINARY POULTRY INSPECTOR, CMADM, CMP #### [facility] [address] [place] [address] Dr. Cherie Dior NEUT # 1.6 103/ul Normal 1.4-6.5 [facility] Comment on above: Performed By: #### B VETERINARY POULTRY INSPECTOR, CMADM, CMP #### [facility] [address] [place] [address] Dr. Cherie Dior Neutrophils/100 WBC (Bld) 46.0 % Normal 43.0-75.0 [facility] Comment on above: Performed By: #### B VETERINARY POULTRY INSPECTOR, CMADM, CMP #### [facility] [address] [place] [address] Dr. Cherie Dior Platelet mean volume (Bld) [Entitic vol] 9.8 fL Normal 9.5-13.5 [facility] Comment on above: Performed By: #### B VETERINARY POULTRY INSPECTOR, CMADM, CMP #### [facility] [address] [place] [address] Dr. Cherie Dior PLT 202 103/ul Normal 150-[address] [facility] Comment on above: Performed By: #### B VETERINARY POULTRY INSPECTOR, CMADM, CMP #### [facility] [address] [place] [address] Dr. Cherie Dior RBC 4.28 106/ul Normal 4.20-5.[address] [facility] Comment on above: Performed By: #### B VETERINARY POULTRY INSPECTOR, CMADM, CMP #### [facility] [address] [place] [address] Dr. Cherie Dior WBC 3.5 103/ul Critically low 4.0-11.0 [facility] Comment on above: Performed By: #### B VETERINARY POULTRY INSPECTOR, CMADM, CMP #### [facility] [address] [place] [address] Dr. Cherie Dior Covid-19 PCR (CVDTBH)on 01-21 SARS-CoV-2 (COVID-19) RNA JULEE+probe Ql (Unsp spec) Not detected Normal NOT DETECTED [facility] Comment on above: Result Comment: This test is not yet approved or cleared by the [place] FDA. When there are no FDA-approved or cleared tests available, and other criteria are met, FDA can make tests available under an emergency access mechanism called an Emergency Use Authorization (EUA). The EUA for this test is supported by the Weave Defect Charting Clerk of Health and Human Service's (HHS's) declaration [...] consistent with SARS-CoV-2. Performed By: #### B VETERINARY POULTRY INSPECTOR, CMADM, CMP #### [facility] [address] [place] [address] Dr. Cherie Dior PROF CHEM 8 (BAS METB)on Anion gap [Moles/Vol] 7.5 mmol/L Normal [facility] Comment on above: Performed By: #### B MP #### [facility] [address] [place] [address] Dr. Cherie Dior Calcium [Mass/Vol] 8.4 mg/dL Critically low 8.5-10.1 [facility] Comment on above: Performed By: #### B MP #### [facility] [address] [place] [address] Dr. Cherie Dior Chloride [Moles/Vol] 106 mmol/L Normal 98-107 [facility] Comment on above: Performed By: #### B MP #### [facility] [address] [place] [address] Dr. Cherie Dior CO2 [Moles/Vol] 28.3 mmol/L Normal 21.0-32.0 [facility] Comment on above: Performed By: #### B MP #### [facility] [address] [address] [address] Cherie Dior Creatinine [Mass/Vol] 0.81 mg/dL Normal 0.55-1.02 [facility] Comment on above: Performed By: #### B MP #### [facility] [address] [address] [address] Cherie Dior EGFR-AF NIUEAN >60 Normal >=60 [facility] Comment on above: Performed By: #### B MP #### [facility] [address] [address] [address] Cherie Dior EGFR-NON AF NIUEAN >60 Normal >=60 [facility] Comment on above: Performed By: #### B MP #### [facility] [address] [address] [address] Cherie Dior Glucose [Mass/Vol] 75 mg/dL Normal 74-106 [facility] Comment on above: Performed By: #### B MP #### [facility] [address] [address] [address] Cherie Dior Potassium [Moles/Vol] 3.8 mmol/L Normal 3.5-5.1 [facility] Comment on above: Performed By: #### B MP #### [facility] [address] [address] [address] Cherie Dior Sodium [Moles/Vol] 138 mmol/L Normal 136-145 [facility] Comment on above: Performed By: #### B MP #### [facility] [address] [address] [address] Cherie Dior Urea nitrogen [Mass/Vol] 8.0 mg/dL Normal 7.0-18.[address] [facility] Comment on above: Performed By: #### B MP #### [facility] [address] [address] [address] Cherie Dior Urea nitrogen/Creatinine [Mass ratio] 9.9 mg/mg Normal [facility] Comment on above: Performed By: #### B MP #### [facility] [address] [place] [address] Dr. Cherie Dior PROTIMEon 02-12-2022 INR Coag (PPP) [Relative time] 0.97 {INR} Normal [facility] Comment on above: Performed By: #### B VETERINARY POULTRY INSPECTOR, MEAGHAN, CMP #### [facility] [address] [place] [address] Dr. Cherie Dior INR GUIDELINES SEE BELOW Normal [facility] Comment on above: Result Comment: JORDEN RED INR: 2.0 - 3.0 CONDITIONS NOT LISTED BELOW 2.5 - 3.5 FOR PROSTHETIC HEART VALVE REPLACEMENT 2.5 - 3.5 RECURRENT THROMBOSIS Performed By: #### B VETERINARY POULTRY INSPECTORMEAGHAN, CMP #### [facility] [address] [place] [address] Dr. Cherie Dior PT Coag (PPP) [Time] 10.5 s Normal 9.0-11.6 [facility] Comment on above: Performed By: #### B VETERINARY POULTRY INSPECTOR, MEAGHAN, CMP #### [facility] [address] [place] [address] Dr. Cherie Dior PTTon 02-12-2022 aPTT Coag (Bld) [Time] 25.1 s Normal 22.3-36.2 [facility] Comment on above: Performed By: #### B VETERINARY POULTRY INSPECTORMEAGHAN, CMP #### [facility] [address] [place] [address] Dr. Cherie Dior TYPE AND SCREENon 02-12-2022 TYPE AND SCREEN Negative Normal [facility] Comment on above: Performed By: #### I NFLUAB #### [facility] [address] [place] [address] Dr. Cherie Dior Physician Referralon 022 Physician Referral [id number] #1.00CD:127 Normal [facility] PREG HCG QUALon 01-05-2022 , QUAL Negative Normal NEGATIVE [facility] Comment on above: Performed By: #### B VETERINARY POULTRY INSPECTORMEAGHAN, CMP #### [facility] [address] [place] [address] Dr. Cherie Dior MG MAMM SCREEN 3D ARJUN CADon 01-02-2022 MG MAMM SCREEN 3D ARJUN CAD Patient: NEEL GARCIA Exam Date: 01/02/2022 : 1980 Gender:F Ordering : DR INGRID DE LOS [place]ANTOS . Admission #: [id number] Family : Order #: [id number] CLICK HERE TO VIEW EXAM RADIOLOGY REPORT PROCEDURE: MAMMOGRAM SCREENING 3D BILATERAL CAD COMPARISON: MG MAMM SCREEN ARJUN W CAD, 07/29/2018. INDICATIONS: Screening mammography Calculator Name NCI Breast Cancer Risk Assessment Tool 5 Year Breast Cancer Risk Not Reported. Lifetime Breast Cancer Risk Not Reported. Personal Breast Cancer No Personal Ovarian Cancer No Treatments None Family Cancers None LOCATION: [facility] BREAST COMPOSITION: Heterogeneously dense,which may [...] 01/02/2022 at 11:25 Normal [facility] Covid-19 PCR (CVDTBH)on SARS-CoV-2 (COVID-19) RNA JULEE+probe Ql (Unsp spec) Not detected Normal NOT DETECTED [facility] Comment on above: Result Comment: This test is not yet approved or cleared by the [place] FDA. When there are no FDA-approved or cleared tests available, and other criteria are met, FDA can make tests available under an emergency access mechanism called an Emergency Use Authorization (EUA). The EUA for this test is supported by the Weave Defect Charting Clerk of Health and Human Service's (HHS's) declaration [...] By: #### I NFLUAB #### [facility] [address], [place] [address] Dr. Cherie Dior US PELVIS AND TRANSVAGon [...] by: AUSTIN MCGUIRE Date: 2021-12-20 11:02 Normal [facility] PAP ACOG PANEL 2: 30 to 65on 12-19-2021 . . Normal [facility] Comment on above: Result Comment: Perf ormed at: WB Performed By: #### B VETERINARY POULTRY INSPECTOR, CMADM, CMP #### [facility] [address] [place], [place] [address] Dr. Cherie Dior Age Gdln ACOG Testing -63 Normal [facility] Comment on above: Performed By: #### B VETERINARY POULTRY INSPECTOR, CMADM, CMP #### [facility] [address] [address] [address] Cherie Dior DIAGNOSIS: Comment Normal [facility] Comment on above: Result Comment: NEGA TIVE FOR INTRAEPITHELIAL LESION OR MALIGNANCY. Performed at: WB Performed By: #### B VETERINARY POULTRY INSPECTOR, CMADM, CMP #### [facility] [address] [address] [address] Cherie Dior HPV Aptima Negative Normal Negative [facility] Comment on above: Result Comment: This nucleic acid amplification test detects fourteen high-risk HPV types (16,18,31,33,35,39,45,51,52,56,58,59,66,68) without differentiation. Performed at: =G Performed By: #### B VETERINARY POULTRY INSPECTOR, CMADM, CMP #### [facility] [address] [place] [address] Dr. Cherie Dior Methodology: Comment Normal [facility] Comment on above: Result Comment: This liquid based ThinPrep(R) pap test was screened with the use of an image guided system. Performed at: WB Performed By: #### B VETERINARY POULTRY INSPECTOR, CMADM, CMP #### [facility] [address] [place] [address] Dr. Cherie Dior Note: Comment Normal [facility] Comment on above: Result Comment: The Pap smear is a screening test designed to aid in the detection of premalignant and malignant conditions of the uterine cervix. It is not a diagnostic procedure and should not be used as the sole means of detecting cervical cancer. Both false-positive and false-negative reports do occur. . Performed at: WB Performed By: #### B VETERINARY POULTRY INSPECTOR, CMADM, CMP #### [facility] [address] [address] [address] Cherie Dior Performed by: Comment Normal [facility] Comment on above: Result Comment: Griselda Drummond Planer Operator / Grader (ASCP) Performed at: WB Performed By: #### B VETERINARY POULTRY INSPECTOR, CMADM, CMP #### [facility] [address] [place] [address] Dr. Cherie Dior Specimen adequacy: Comment Normal [facility] Comment on above: Result Comment: Sati sfactory for evaluation. Endocervical and/or squamous metaplastic cells (endocervical component) are present. Performed at: WB Performed By: #### B VETERINARY POULTRY INSPECTOR, CMADM, CMP #### [facility] [address] [address] [address] Cherie Juraod 11-14-2021 CNPN Telephone (HEMASA) NEEL GARCIA ([id number]) 1980 F Date Time Provider Department 11/14/21 JIAN DE LA CRUZ During your visit today, we recorded the following information about you: Jian De La Cruz RN 11/14/2021 3:15 PM Signed ----- Message from Alina Barros RN sent at 11/13/2021 1:26 PM EDT ----- ----- Message ----- From: Nehemias Ward MD Sent: 11/11/2021 6:10 AM EDT To: Alina Barros RN [facility] Tiff. Can you please call pt and let her know that the iron profile is normal? No change in the recommendation. Thanks, [facility] Jian De La Cruz RN 11/14/2021 3:15 [...] Comment: Speci men Type: BLOOD SPECIMENOrdering Facility: [facility] Address: [address] [place] [address] Performed By: #### 5 7021-8 ####[facility] LABCLIA [id number] [place] [address] Basophils/100 WBC (Bld) 0.9 % Normal [facility] Comment on above: Order Comment: Speci men Type: BLOOD SPECIMENOrdering Facility: [facility] Address: [address] [place] [address] Performed By: #### 5 7021-8 ####[facility] LABCLIA [id number] [place] [address] Differential cell count method Nom (Bld) Auto Normal [facility] Comment on above: Order Comment: Speci men Type: BLOOD SPECIMENOrdering Facility: [facility] Address: [address] [place] [address] Performed By: #### 5 7021-8 ####[facility] LABCLIA [id number] [place] [address] Eosinophils (Bld) [#/Vol] 0.14 10*3/uL Normal <0.46 [facility] Comment on above: Order Comment: Speci men Type: BLOOD SPECIMENOrdering Facility: [facility] Address: [address] [place] [address] Performed By: #### 5 7021-8 ####[facility] LABCLIA [id number] [place] [address] Eosinophils/100 WBC (Bld) 4.2 % Normal [facility] Comment on above: Order Comment: Speci men Type: BLOOD SPECIMENOrdering Facility: [facility] Address: [address] [place] [address] Performed By: #### 5 7021-8 ####[facility] LABCLIA [id number] [place] [address] Erythrocyte distribution width (RBC) [Ratio] 15.4 % High 11.5-15.0 [facility] Comment on above: Order Comment: Speci men Type: BLOOD SPECIMENOrdering Facility: [facility] Address: [address] [place] [address] Performed By: #### 5 7021-8 ####[facility] LABCLIA [id number] [place] [address] Hematocrit (Bld) [Volume fraction] 38.0 % Normal 36.0-46.0 [facility] Comment on above: Order Comment: Speci men Type: BLOOD SPECIMENOrdering Facility: [facility] Address: [address] [place] [address] Performed By: #### 5 7021-8 ####[facility] LABCLIA [id number] [place] [address] Hemoglobin (Bld) [Mass/Vol] 12.0 g/dL Normal 11.5-15.5 [facility] Comment on above: Order Comment: Speci men Type: BLOOD SPECIMENOrdering Facility: [facility] Address: [address] [place] [address] Performed By: #### 5 7021-8 ####[facility] LABCLIA [id number] [place] [address] IMMATURE GRAN % 0.3 % Normal [facility] Comment on above: Order Comment: Speci men Type: BLOOD SPECIMENOrdering Facility: [facility] Address: [address] [place] [address] Performed By: #### 5 7021-8 ####[facility] LABCLIA [id number] [place] [address] IMMATURE GRAN ABS <0.03 Normal <0.10 [facility] Comment on above: Order Comment: Speci men Type: BLOOD SPECIMENOrdering Facility: [facility] Address: [address] [place] [address] Performed By: #### 5 7021-8 ####[facility] LABCLIA [id number] [place] [address] Lymphocytes (Bld) [#/Vol] 1.26 10*3/uL Normal 1.00-4.00 [facility] Comment on above: Order Comment: Speci men Type: BLOOD SPECIMENOrdering Facility: [facility] Address: [address] [place] [address] Performed By: #### 5 7021-8 ####[facility] LABIA [id number] [place] [address] Lymphocytes/100 WBC (Bld) 38.1 % Normal [facility] Comment on above: Order Comment: Speci men Type: BLOOD SPECIMENOrdering Facility: [facility] Address: [address] [place] [address] Performed By: #### 5 7021-8 ####[facility] LABCLIA [id number] [place] [address] MCH (RBC) [Entitic mass] 27.9 pg Normal 26.0-34.0 [facility] Comment on above: Order Comment: Speci men Type: BLOOD SPECIMENOrdering Facility: [facility] Address: [address] [place] [address] Performed By: #### 5 7021-8 ####[facility] LABCLIA [id number] [place] [address] MCHC (RBC) [Mass/Vol] 31.6 g/dL Normal 30.5-36.0 [facility] Comment on above: Order Comment: Speci men Type: BLOOD SPECIMENOrdering Facility: [facility] Address: [address] [place] [address] Performed By: #### 5 7021-8 ####[facility] LABCLIA [id number] [place] [address] MCV (RBC) [Entitic vol] 88.4 fL Normal 80.0-100.0 [facility] Comment on above: Order Comment: Speci men Type: BLOOD SPECIMENOrdering Facility: [facility] Address: [address] [place] [address] Performed By: #### 5 7021-8 ####[facility] LABCLIA [id number] [place] [address] Monocytes (Bld) [#/Vol] 0.43 10*3/uL Normal <0.87 [facility] Comment on above: Order Comment: Speci men Type: BLOOD SPECIMENOrdering Facility: [facility] Address: [address] [place] [address] Performed By: #### 5 7021-8 ####[facility] LABCLIA [id number] [place] [address] Monocytes/100 WBC (Bld) 13.0 % Normal [facility] Comment on above: Order Comment: Speci men Type: BLOOD SPECIMENOrdering Facility: [facility] Address: [address] [place] [address] Performed By: #### 5 7021-8 ####[facility] LABCLIA [id number] [place] [address] Neutrophils (Bld) [#/Vol] 1.44 10*3/uL Low 1.45-7.50 [facility] Comment on above: Order Comment: Speci men Type: BLOOD SPECIMENOrdering Facility: [facility] Address: [address] [place] [address] Performed By: #### 5 7021-8 ####[facility] LABCLIA [id number] [place] [address] Neutrophils/100 WBC (Bld) 43.5 % Normal [facility] Comment on above: Order Comment: Speci men Type: BLOOD SPECIMENOrdering Facility: [facility] Address: [address] [place] [address] Performed By: #### 5 7021-8 ####[facility] LABCLIA [id number] [place] [address] Nucleated RBC (Bld) [#/Vol] 10*3/uL Normal <0.01 [facility] Comment on above: Order Comment: Speci men Type: BLOOD SPECIMENOrdering Facility: [facility] Address: [address] [place] [address] Performed By: #### 5 7021-8 ####[facility] LABIA [id number] [place] [address] Nucleated RBC/100 WBC (Bld) [Ratio] 0.0 /100 WBC Normal [facility] Comment on above: Order Comment: Speci men Type: BLOOD SPECIMENOrdering Facility: [facility] Address: [address] [place] [address] Performed By: #### 5 7021-8 ####[facility] LABIA [id number] [place] [address] Platelet mean volume (Bld) [Entitic vol] 9.5 fL Normal 9.0-12.7 [facility] Comment on above: Order Comment: Speci men Type: BLOOD SPECIMENOrdering Facility: [facility] Address: [address] [place] [address] Performed By: #### 5 7021-8 ####[facility] LABIA [id number] [place] [address] Platelets (Bld) [#/Vol] 239 10*3/uL Normal 150-400 [facility] Comment on above: Order Comment: Speci men Type: BLOOD SPECIMENOrdering Facility: [facility] Address: [address] [place] [address] Performed By: #### 5 7021-8 ####[facility] LABIA [id number] [place] [address] RBC (Bld) [#/Vol] 4.30 10*6/uL Normal 3.90-5.20 [facility] Comment on above: Order Comment: Speci men Type: BLOOD SPECIMENOrdering Facility: [facility] Address: [address] [place] [address] Performed By: #### 5 7021-8 ####[facility] LABIA [id number] [place] [address] WBC (Bld) [#/Vol] 3.31 10*3/uL Low 3.70-11.00 [facility] Comment on above: Order Comment: Speci men Type: BLOOD SPECIMENOrdering Facility: [facility] Address: [address] [place] [address] Performed By: #### 5 7021-8 ####[facility] LABIA [id number] [place] [address] CNOVSPon 11-10-2021 CNOVS Visit (SP) Office ([facility]) NEEL GARCIA ([id number]) 1980 F Date Time Provider Department 11/10/21 [...] more details. She was born in [place] and has lived in [place] in the past. She reports occasional smoking - cigars that are dipped in cognac - last use a month back. Occasional alcohol use. No other substance abuse reported. She lives with her with 5 children. She is not working now but used to work at [employer] (was laid off during COVID-). MEDICATIONS AND [...] which included preparing to see the patient, [id number] patient care, completing clinical documentation, obtaining and/or reviewing separately obtained history, performing a medically appropriate examination, counseling and educating the patient/family/careg iver, ordering medications, tests, or pro (more content not included)... Normal [facility] Comprehensive metabolic 2000 panelon 11-10-2021 Albumin [Mass/Vol] 4.1 g/dL Normal 3.9-4.9 [facility] Comment on above: Order Comment: Speci men Type: BLOOD SPECIMENOrdering Facility: [facility] Address: [address] [place] [address] Performed By: #### 2 4323-8 ####[facility] LABCLIA [id number] [place] [address] ALP [Catalytic activity/Vol] 64 U/L Normal 34-123 [facility] Comment on above: Order Comment: Speci men Type: BLOOD SPECIMENOrdering Facility: [facility] Address: [address] [place] [address] Performed By: #### 2 4323-8 ####[facility] LABCLIA [id number] [place] [address] ALT [Catalytic activity/Vol] 26 U/L Normal 7-38 [facility] Comment on above: Order Comment: Speci men Type: BLOOD SPECIMENOrdering Facility: [facility] Address: [address] [place] [address] Performed By: #### 2 4323-8 ####[facility] LABCLIA [id number] [place] [address] Anion gap [Moles/Vol] 8 mmol/L Low 9-18 [facility] Comment on above: Order Comment: Speci men Type: BLOOD SPECIMENOrdering Facility: [facility] Address: [address] [place] [address] Performed By: #### 2 4323-8 ####[facility] LABCLIA [id number] [place] [address] AST [Catalytic activity/Vol] 22 U/L Normal 13-35 [facility] Comment on above: Order Comment: Speci men Type: BLOOD SPECIMENOrdering Facility: [facility] Address: [address] [place] [address] Performed By: #### 2 4323-8 ####[facility] LABCLIA [id number] [place] [address] Bilirubin [Mass/Vol] 0.6 mg/dL Normal 0.2-1.3 [facility] Comment on above: Order Comment: Speci men Type: BLOOD SPECIMENOrdering Facility: [facility] Address: [address] [place] [address] Performed By: #### 2 4323-8 ####[facility] LABCLIA [id number] [place] [address] Calcium [Mass/Vol] 9.3 mg/dL Normal 8.5-10.2 [facility] Comment on above: Order Comment: Speci men Type: BLOOD SPECIMENOrdering Facility: [facility] Address: [address] [place] [address] Performed By: #### 2 4323-8 ####[facility] LABCLIA [id number] [place] [address] Chloride [Moles/Vol] 107 mmol/L High 97-105 [facility] Comment on above: Order Comment: Speci men Type: BLOOD SPECIMENOrdering Facility: [facility] Address: [address] [place] [address] Performed By: #### 2 4323-8 ####[facility] LABCLIA [id number] [place] [address] CO2 [Moles/Vol] 27 mmol/L Normal 22-30 [facility] Comment on above: Order Comment: Speci men Type: BLOOD SPECIMENOrdering Facility: [facility] Address: [address] [place] [address] Performed By: #### 2 4323-8 ####[facility] LABCLIA [id number] [place] [address] Creatinine [Mass/Vol] 0.91 mg/dL Normal 0.58-0.96 [facility] Comment on above: Order Comment: Speci men Type: BLOOD SPECIMENOrdering Facility: [facility] Address: [address] [place] [address] Performed By: #### 2 4323-8 ####[facility] LABCLIA [id number] [place] [address] ESTIMATED GLOMERULAR FILTRATION RATE 80 mL/min/1.73m??? Normal >=60 [facility] Comment on above: Order Comment: [place] Type: BLOOD SPECIMENOrdering Facility: [facility] Address: [address] [place] [address] Result Comment: Mari mated Glomerular Filtration Rate [...] actual GFR. Performed By: #### 2 4323-8 ####[facility] LABCLIA [id number] [place] [address] Glucose [Mass/Vol] 102 mg/dL High 74-99 [facility] Comment on above: Order Comment: [place] Type: BLOOD SPECIMENOrdering Facility: [facility] Address: [address] [place] [address] Result Comment: The [employer] Diabetes Association (ADA) provides guidance for cutoff [...] Standards of Medical Care in Diabetes 2016, [employer]. Diabetes Care. 2016.39(Suppl 1). Performed By: #### 2 4323-8 ####[facility] LABCLIA [id number] [place] [address] Potassium [Moles/Vol] 4.0 mmol/L Normal 3.7-5.1 [facility] Comment on above: Order Comment: Speci men Type: BLOOD SPECIMENOrdering Facility: [facility] Address: [address] [place] [address] Performed By: #### 2 4323-8 ####[facility] LABCLIA [id number] [place] [address] Protein [Mass/Vol] 6.6 g/dL Normal 6.3-8.0 [facility] Comment on above: Order Comment: Speci men Type: BLOOD SPECIMENOrdering Facility: [facility] Address: [address] [place] [address] Performed By: #### 2 4323-8 ####[facility] LABCLIA [id number] [place] [address] Sodium [Moles/Vol] 142 mmol/L Normal 136-144 [facility] Comment on above: Order Comment: Speci men Type: BLOOD SPECIMENOrdering Facility: [facility] Address: [address] [place] [address] Performed By: #### 2 4323-8 ####[facility] LABCLIA [id number] [place] [address] Urea nitrogen [Mass/Vol] 13 mg/dL Normal 7-21 [facility] Comment on above: Order Comment: Speci men Type: BLOOD SPECIMENOrdering Facility: [facility] Address: [address] [place] [address] Performed By: #### 2 4323-8 ####[facility] LABCLIA [id number] [place] [address] Ferritin [facility] Ferritin [Mass/Vol] 198.0 ng/mL Normal 14.7-205.1 [facility] Comment on above: Order Comment: Speci men Type: BLOOD SPECIMENOrdering Facility: [facility] Address: [address] [place] [address] Performed By: #### 2 276-4 ####[facility] LABCLIA [id number] [place] [address] [place] Iron and Iron binding capaci ty panelon 11-10-2021 Iron [Mass/Vol] 62 ug/dL Normal 41-186 [facility] Comment on above: Order Comment: Speci men Type: BLOOD SPECIMENOrdering Facility: [facility] Address: [address] [place] [address] Performed By: #### 5 0190-8 ####[facility] LABIA [id number] [address] [place] Iron binding capacity [Mass/Vol] 311 ug/dL Normal 232-386 [facility] Comment on above: Order Comment: Speci men Type: BLOOD SPECIMENOrdering Facility: [facility] Address: [address] [place] [address] Performed By: #### 5 0190-8 ####[facility] LABIA [id number] [address] STATES OF [facility] Iron/TIBC [Molar ratio] 19.9 % Normal 15.0-57.0 [facility] Comment on above: Order Comment: Speci men Type: BLOOD SPECIMENOrdering Facility: [facility] Address: [address] [place] [address] Performed By: #### 5 0190-8 ####[facility] LABIA [id number] [place] [address] [place] CBC W Auto Differential pane l (Bld)on 10-06-2021 Basophils (Bld) [#/Vol] 0.04 10*3/uL Normal <0.11 [facility] Comment on above: Order Comment: Speci men Type: BLOOD SPECIMENOrdering Facility: [facility] Address: [address] [place] [address] Performed By: #### 5 7021-8 ####[facility] LABCLIA [id number] [place] [address] Basophils/100 WBC (Bld) 1.0 % Normal [facility] Comment on above: Order Comment: Speci men Type: BLOOD SPECIMENOrdering Facility: [facility] Address: [address] [place] [address] Performed By: #### 5 7021-8 ####[facility] LABCLIA [id number] [place] [address] Differential cell count method Nom (Bld) Auto Normal [facility] Comment on above: Order Comment: Speci men Type: BLOOD SPECIMENOrdering Facility: [facility] Address: [address] [place] [address] Performed By: #### 5 7021-8 ####[facility] LABCLIA [id number] [place] [address] Eosinophils (Bld) [#/Vol] 0.21 10*3/uL Normal <0.46 [facility] Comment on above: Order Comment: Speci men Type: BLOOD SPECIMENOrdering Facility: [facility] Address: [address] [place] [address] Performed By: #### 5 7021-8 ####[facility] LABCLIA [id number] [place] [address] Eosinophils/100 WBC (Bld) 5.3 % Normal [facility] Comment on above: Order Comment: Speci men Type: BLOOD SPECIMENOrdering Facility: [facility] Address: [address] [place] [address] Performed By: #### 5 7021-8 ####[facility] LABCLIA [id number] [place] [address] Erythrocyte distribution width (RBC) [Ratio] 14.1 % Normal 11.5-15.0 [facility] Comment on above: Order Comment: Speci men Type: BLOOD SPECIMENOrdering Facility: [facility] Address: [address] [place] [address] Performed By: #### 5 7021-8 ####[facility] LABCLIA [id number] [place] [address] Hematocrit (Bld) [Volume fraction] 38.1 % Normal 36.0-46.0 [facility] Comment on above: Order Comment: Speci men Type: BLOOD SPECIMENOrdering Facility: [facility] Address: [address] [place] [address] Performed By: #### 5 7021-8 ####[facility] LABIA [id number] [place] [address] Hemoglobin (Bld) [Mass/Vol] 12.2 g/dL Normal 11.5-15.5 [facility] Comment on above: Order Comment: Speci men Type: BLOOD SPECIMENOrdering Facility: [facility] Address: [address] [place] [address] Performed By: #### 5 7021-8 ####[facility] LABIA [id number] [place] [address] IMMATURE GRAN % 0.3 % Normal [facility] Comment on above: Order Comment: Speci men Type: BLOOD SPECIMENOrdering Facility: [facility] Address: [address] [place] [address] Performed By: #### 5 7021-8 ####[facility] LABIA [id number] [place] [address] IMMATURE GRAN ABS <0.03 Normal <0.10 [facility] Comment on above: Order Comment: Speci men Type: BLOOD SPECIMENOrdering Facility: [facility] Address: [address] [place] [address] Performed By: #### 5 7021-8 ####[facility] LABCLIA [id number] [place] [address] Lymphocytes (Bld) [#/Vol] 1.37 10*3/uL Normal 1.00-4.00 [facility] Comment on above: Order Comment: Speci men Type: BLOOD SPECIMENOrdering Facility: [facility] Address: [address] [place] [address] Performed By: #### 5 7021-8 ####[facility] LABCLIA [id number] [place] [address] Lymphocytes/100 WBC (Bld) 34.3 % Normal [facility] Comment on above: Order Comment: Speci men Type: BLOOD SPECIMENOrdering Facility: [facility] Address: [address] [place] [address] Performed By: #### 5 7021-8 ####[facility] LABCLIA [id number] [place] [address] MCH (RBC) [Entitic mass] 27.2 pg Normal 26.0-34.0 [facility] Comment on above: Order Comment: Speci men Type: BLOOD SPECIMENOrdering Facility: [facility] Address: [address] [place] [address] Performed By: #### 5 7021-8 ####[facility] LABCLIA [id number] [place] [address] MCHC (RBC) [Mass/Vol] 32.0 g/dL Normal 30.5-36.0 [facility] Comment on above: Order Comment: Speci men Type: BLOOD SPECIMENOrdering Facility: [facility] Address: [address] [place] [address] Performed By: #### 5 7021-8 ####[facility] LABCLIA [id number] [place] [address] MCV (RBC) [Entitic vol] 85.0 fL Normal 80.0-100.0 [facility] Comment on above: Order Comment: Speci men Type: BLOOD SPECIMENOrdering Facility: [facility] Address: [address] [place], [place] [id number] Performed By: #### 5 7021-8 ####[facility] LABCLIA [id number] [place] [address] Monocytes (Bld) [#/Vol] 0.46 10*3/uL Normal <0.87 [facility] Comment on above: Order Comment: Speci men Type: BLOOD SPECIMENOrdering Facility: [facility] Address: [address] [place], [place] [address] Performed By: #### 5 7021-8 ####[facility] LABCLIA [id number] [place] [address] Monocytes/100 WBC (Bld) 11.5 % Normal [facility] Comment on above: Order Comment: Speci men Type: BLOOD SPECIMENOrdering Facility: [facility] Address: [address] [place], [place] [address] Performed By: #### 5 7021-8 ####[facility] LABCLIA [id number] [place] [address] Neutrophils (Bld) [#/Vol] 1.91 10*3/uL Normal 1.45-7.50 [facility] Comment on above: Order Comment: Speci men Type: BLOOD SPECIMENOrdering Facility: [facility] Address: [address] [place], [place] [address] Performed By: #### 5 7021-8 ####[facility] LABCLIA [id number] [place] [address] Neutrophils/100 WBC (Bld) 47.6 % Normal [facility] Comment on above: Order Comment: Speci men Type: BLOOD SPECIMENOrdering Facility: [facility] Address: [address] [place], [place] [address] Performed By: #### 5 7021-8 ####[facility] LABCLIA [id number] [place] [address] Nucleated RBC (Bld) [#/Vol] 10*3/uL Normal <0.01 [facility] Comment on above: Order Comment: Speci men Type: BLOOD SPECIMENOrdering Facility: [facility] Address: [address] [place] [address] Performed By: #### 5 7021-8 ####[facility] LABCLIA [id number] [place] [address] Nucleated RBC/100 WBC (Bld) [Ratio] 0.0 /100 WBC Normal [facility] Comment on above: Order Comment: Speci men Type: BLOOD SPECIMENOrdering Facility: [facility] Address: [address] [place] [address] Performed By: #### 5 7021-8 ####[facility] LABIA [id number] [place] [address] Platelet mean volume (Bld) [Entitic vol] 9.6 fL Normal 9.0-12.7 [facility] Comment on above: Order Comment: Speci men Type: BLOOD SPECIMENOrdering Facility: [facility] Address: [address] [place] [address] Performed By: #### 5 7021-8 ####[facility] LABIA [id number] [place] [address] Platelets (Bld) [#/Vol] 265 10*3/uL Normal 150-400 [facility] Comment on above: Order Comment: Speci men Type: BLOOD SPECIMENOrdering Facility: [facility] Address: [address] [place] [address] Performed By: #### 5 7021-8 ####[facility] LABIA [id number] [place] [address] RBC (Bld) [#/Vol] 4.48 10*6/uL Normal 3.90-5.20 [facility] Comment on above: Order Comment: Speci men Type: BLOOD SPECIMENOrdering Facility: [facility] Address: [address] [place] [address] Performed By: #### 5 7021-8 ####[facility] LABCLIA [id number] [place] [address] WBC (Bld) [#/Vol] 4.00 10*3/uL Normal 3.70-11.00 [facility] Comment on above: Order Comment: Speci men Type: BLOOD SPECIMENOrdering Facility: [facility] Address: [address] [place] [address] Performed By: #### 5 7021-8 ####[facility] LABCLIA [id number] [place] [address] Abs Immature Gran <0.03 <0.10 k/uL [facility] [place] Basophils (Bld) [#/Vol] 0.04 10*3/uL <0.11 k/uL [facility] Basophils/100 WBC (Bld) 1.0 % [facility] Differential cell count method Nom (Bld) Auto [facility] Eosinophils (Bld) [#/Vol] 0.21 10*3/uL <0.46 k/uL [facility] Eosinophils/100 WBC (Bld) 5.3 % [facility] Erythrocyte distribution width (RBC) [Ratio] 14.1 % 11.5 - 15.0 % [facility] Hematocrit (Bld) [Volume fraction] 38.1 % 36.0 - 46.0 % [facility] Hemoglobin (Bld) [Mass/Vol] 12.2 g/dL 11.5 - 15.5 g/dL [facility] Immature Gran % 0.3 % [facility] Lymphocytes (Bld) [#/Vol] 1.37 10*3/uL 1.00 - 4.00 k/uL [facility] Lymphocytes/100 WBC (Bld) 34.3 % [facility] MCH (RBC) [Entitic mass] 27.2 pg 26.0 - 34.0 pg [facility] MCHC (RBC) [Mass/Vol] 32.0 g/dL 30.5 - 36.0 g/dL [facility] MCV (RBC) [Entitic vol] 85.0 fL 80.0 - 100.0 fL [facility] Monocytes (Bld) [#/Vol] 0.46 10*3/uL <0.87 k/uL [facility] Monocytes/100 WBC (Bld) 11.5 % [facility] Neutrophils (Bld) [#/Vol] 1.91 10*3/uL 1.45 - 7.50 k/uL [facility] Neutrophils/100 WBC (Bld) 47.6 % [facility] Nucleated RBC (Bld) [#/Vol] 10*3/uL <0.01 k/uL [facility] Nucleated RBC/100 WBC (Bld) [Ratio] 0.0 /100 WBC [facility] Platelet mean volume (Bld) [Entitic vol] 9.6 fL 9.0 - 12.7 fL [facility] Platelets (Bld) [#/Vol] 265 10*3/uL 150 - 400 k/uL [facility] RBC (Bld) [#/Vol] 4.48 10*6/uL 3.90 - 5.2 0 m/uL [facility] WBC (Bld) [#/Vol] 4.00 10*3/uL 3.70 - 11. 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 During your visit today, we recorded the following information about you: [facility] 10/06/2021 1:14 PM Signed 1st report of treatment-Non oncology regimen (Monoferric) Patient has [place] [employer] therefore no FA is required Allergies As of Date: 10/06/2021 (No Known Allergies) Date Reviewed: 10/06/2021 Reviewed by: Arleth Bangura RN - Fully Assessed Reason for Visit: Benefits Investigation [4098] Prescriptions as of 10/06/2021 - SUMAtriptan (IMITREX) [...] on 10/06/21 Normal [facility] Ferritin SerPl-mCncon 2021 Ferritin [Mass/Vol] 24.6 ng/mL Normal 14.7-205.1 [facility] Comment on above: Order Comment: Speci men Type: BLOOD SPECIMENOrdering Facility: [facility] Address: [address] [place], [place] [address] Performed By: #### 2 276-4, 88644-3 ####[facility] LABCLIA [id number] [facility] [place] [address] [place] Iron and Iron binding capaci ty panelon 10-06-2021 Iron [Mass/Vol] 33 ug/dL Low 41-186 [facility] Comment on above: Order Comment: Speci men Type: BLOOD SPECIMENOrdering Facility: [facility] Address: [address] [place] [address] Performed By: #### 2 276-4, 01325-8 ####[facility] LABIA [id number] [address] [place] Iron binding capacity [Mass/Vol] 426 ug/dL High 232-386 [facility] Comment on above: Order Comment: Speci men Type: BLOOD SPECIMENOrdering Facility: [facility] Address: [address] [place] [address] Performed By: #### 2 276-4, 61821-3 ####[facility] LABIA [id number] [address] [place] Iron/TIBC [Molar ratio] 7.7 % Low 15.0-57.0 [facility] Comment on above: Order Comment: Speci men Type: BLOOD SPECIMENOrdering Facility: [facility] Address: [address] [place] [address] Performed By: #### 2 276-4, 57201-4 ####[facility] LABIA [id number] [address] OF [facility] CNPNon 09-29-2021 CNPN Telephone (HEMASA) NEEL GARCIA ([id number]) 1980 F Date Time Provider Department 09/29/21 [...] Comment: Speci men Type: BLOOD SPECIMENOrdering Facility: [facility] Address: [address] [place] [address] Performed By: #### 1 4196-0, 64621-1 ####[facility] LABCLIA [id number] [place] [address] Basophils/100 WBC (Bld) 0.8 % Normal [facility] Comment on above: Order Comment: Speci men Type: BLOOD SPECIMENOrdering Facility: [facility] Address: [address] [place] [address] Performed By: #### 1 4196-0, 66264-4 ####[facility] LABCLIA [id number] [place] [address] Differential cell count method Nom (Bld) Auto Normal [facility] Comment on above: Order Comment: Speci men Type: BLOOD SPECIMENOrdering Facility: [facility] Address: [address] [place] [address] Performed By: #### 1 4196-0, 07482-7 ####[facility] LABCLIA [id number] [place] [address] Eosinophils (Bld) [#/Vol] 0.27 10*3/uL Normal <0.46 [facility] Comment on above: Order Comment: Speci men Type: BLOOD SPECIMENOrdering Facility: [facility] Address: [address] [place] [address] Performed By: #### 1 4196-0, 54795-2 ####[facility] LABCLIA [id number] [place] [address] Eosinophils/100 WBC (Bld) 5.6 % Normal [facility] Comment on above: Order Comment: Speci men Type: BLOOD SPECIMENOrdering Facility: [facility] Address: [address] [place] [address] Performed By: #### 1 4196-0, 55170-2 ####[facility] LABCLIA [id number] [place] [address] Erythrocyte distribution width (RBC) [Ratio] 13.7 % Normal 11.5-15.0 [facility] Comment on above: Order Comment: Speci men Type: BLOOD SPECIMENOrdering Facility: [facility] Address: [address] [place] [address] Performed By: #### 1 4196-0, 93824-5 ####[facility] LABCLIA [id number] [place] [address] Hematocrit (Bld) [Volume fraction] 37.2 % Normal 36.0-46.0 [facility] Comment on above: Order Comment: Speci men Type: BLOOD SPECIMENOrdering Facility: [facility] Address: [address] [place] [address] Performed By: #### 1 4196-0, 25796-7 ####[facility] LABCLIA [id number] [place] [address] Hemoglobin (Bld) [Mass/Vol] 11.8 g/dL Normal 11.5-15.5 [facility] Comment on above: Order Comment: Speci men Type: BLOOD SPECIMENOrdering Facility: [facility] Address: [address] [place] [address] Performed By: #### 1 4196-0, ####[facility] LABCLIA [id number] [place] [address] IMMATURE GRAN % 0.2 % Normal [facility] Comment on above: Order Comment: Speci men Type: BLOOD SPECIMENOrdering Facility: [facility] Address: [address] [place] [address] Performed By: #### 1 4196-0, 56732-6 ####[facility] LABCLIA [id number] [place] [address] IMMATURE GRAN ABS <0.03 Normal <0.10 [facility] Comment on above: Order Comment: Speci men Type: BLOOD SPECIMENOrdering Facility: [facility] Address: [address] [place] [address] Performed By: #### 1 4196-0, 43636-5 ####[facility] LABCLIA [id number] [place] [address] Lymphocytes (Bld) [#/Vol] 1.88 10*3/uL Normal 1.00-4.00 [facility] Comment on above: Order Comment: Speci men Type: BLOOD SPECIMENOrdering Facility: [facility] Address: [address] [place] [address] Performed By: #### 1 4196-0, 12993-1 ####[facility] LABCLIA [id number] [place] [address] Lymphocytes/100 WBC (Bld) 38.9 % Normal [facility] Comment on above: Order Comment: Speci men Type: BLOOD SPECIMENOrdering Facility: [facility] Address: [address] [place] [address] Performed By: #### 1 4196-0, 03227-8 ####[facility] LABCLIA [id number] [place] [address] MCH (RBC) [Entitic mass] 27.3 pg Normal 26.0-34.0 [facility] Comment on above: Order Comment: Speci men Type: BLOOD SPECIMENOrdering Facility: [facility] Address: [address] [place] [address] Performed By: #### 1 4196-0, 46371-3 ####[facility] LABIA [id number] [place] [address] MCHC (RBC) [Mass/Vol] 31.7 g/dL Normal 30.5-36.0 [facility] Comment on above: Order Comment: Speci men Type: BLOOD SPECIMENOrdering Facility: [facility] Address: [address] [place] [address] Performed By: #### 1 4196-0, 17003-8 ####[facility] LABIA [id number] [place] [address] MCV (RBC) [Entitic vol] 85.9 fL Normal 80.0-100.0 [facility] Comment on above: Order Comment: Speci men Type: BLOOD SPECIMENOrdering Facility: [facility] Address: [address] [place] [address] Performed By: #### 1 4196-0, 39048-6 ####[facility] LABIA [id number] [place] [address] Monocytes (Bld) [#/Vol] 0.56 10*3/uL Normal <0.87 [facility] Comment on above: Order Comment: Speci men Type: BLOOD SPECIMENOrdering Facility: [facility] Address: [address] [place] [address] Performed By: #### 1 4196-0, 82552-3 ####[facility] LABCLIA [id number] [place] [address] Monocytes/100 WBC (Bld) 11.6 % Normal [facility] Comment on above: Order Comment: Speci men Type: BLOOD SPECIMENOrdering Facility: [facility] Address: [address] [place] [address] Performed By: #### 1 4196-0, 99848-6 ####[facility] LABCLIA [id number] [place] [address] Neutrophils (Bld) [#/Vol] 2.07 10*3/uL Normal 1.45-7.50 [facility] Comment on above: Order Comment: Speci men Type: BLOOD SPECIMENOrdering Facility: [facility] Address: [address] [place] [address] Performed By: #### 1 4196-0, 90552-5 ####[facility] LABIA [id number] [place] [address] Neutrophils/100 WBC (Bld) 42.9 % Normal [facility] Comment on above: Order Comment: Speci men Type: BLOOD SPECIMENOrdering Facility: [facility] Address: [address] [place] [address] Performed By: #### 1 4196-0, 51006-5 ####[facility] LABIA [id number] [place] [address] Nucleated RBC (Bld) [#/Vol] 10*3/uL Normal <0.01 [facility] Comment on above: Order Comment: Speci men Type: BLOOD SPECIMENOrdering Facility: [facility] Address: [address] [place] [address] Performed By: #### 1 4196-0, 60415-4 ####[facility] [id number] [place] [address] Nucleated RBC/100 WBC (Bld) [Ratio] 0.0 /100 WBC Normal [facility] Comment on above: Order Comment: Speci men Type: BLOOD SPECIMENOrdering Facility: [facility] Address: [address] [place], [place] [address] Performed By: #### 1 4196-0, 96884-4 ####[facility]IA [id number] [place] [address] Platelet mean volume (Bld) [Entitic vol] 9.6 fL Normal 9.0-12.7 [facility] Comment on above: Order Comment: Speci men Type: BLOOD SPECIMENOrdering Facility: [facility] Address: [address] [place] [address] Performed By: #### 1 4196-0, 15149-4 ####[facility] LABIA [id number] [place] [address] Platelets (Bld) [#/Vol] 234 10*3/uL Normal 150-400 [facility] Comment on above: Order Comment: Speci men Type: BLOOD SPECIMENOrdering Facility: [facility] Address: [address] [place], [place] [address] Performed By: #### 1 4196-0, 29098-2 ####[facility] LABIA [id number] [place] [address] RBC (Bld) [#/Vol] 4.33 10*6/uL Normal 3.90-5.20 [facility] Comment on above: Order Comment: Speci men Type: BLOOD SPECIMENOrdering Facility: [facility] Address: [address] [place], [place] [address] Performed By: #### 1 4196-0, 40136-4 ####[facility] LABCLIA [id number] [place] [address] WBC (Bld) [#/Vol] 4.83 10*3/uL Normal 3.70-11.00 [facility] Comment on above: Order Comment: Speci men Type: BLOOD SPECIMENOrdering Facility: [facility] Address: [facility] [address] Performed By: #### 1 4196-0, 14778-2 ####[facility] LABCLIA [id number] [place] [address] CNOVSPon 09-28-2021 CNOVSP Visit (SP) Office (HEMASA) NEEL GARCIA ([id number]) 1980 F Date Time Provider Department 09/28/21 [...] more details. She was born in [place] and has lived in [place] in the past. She reports occasional smoking - cigars that are dipped in cognac - last use a month back. Occasional alcohol use. No other substance abuse reported. She lives with her with 5 children. She is not working now but used to work at [employer] (was laid off during ID-). MEDICATIONS AND [...] which included preparing to see the patient, [id number] patient care, completing clinical documentation, obtaining and/or reviewing separately obtained history, performing a medically appropriate examination, counseling and educating the patient/family/careg iver, ordering medications, tests, or procedures, independently interpreting results (not separately reported) and communicating results to the patient/family/careg iver. CC: Blade Bryan (more content not included)... Normal [facility] FERRITIN BLDon 09-28-2021 Ferritin [Mass/Vol] 22.9 ng/mL Normal 14.7-205.1 [facility] Comment on above: Order Comment: [place] Type: BLOOD SPECIMENOrdering Facility: [facility] Address: [address] [place] [address] Performed By: #### Brandee GARDNER FERR ####[facility] LABCLIA [id number] [place] [address] [place] IRON + TIBCon 09-28-2021 Iron [Mass/Vol] 44 ug/dL Normal 41-186 [facility] Comment on above: Order Comment: [place] Type: BLOOD SPECIMENOrdering Facility: [facility] Address: [address] [address] Performed By: #### I KENDRA FERR ####[facility] LABCLIA [id number] [place] [address] [place] Iron binding capacity [Mass/Vol] 415 ug/dL High 232-386 [facility] Comment on above: Order Comment: Speci men Type: BLOOD SPECIMENOrdering Facility: [facility] Address: [address] [place] [address] Performed By: #### I KENDRA FERR ####[facility] LABCLIA [id number] [place] [address] [place] Iron/TIBC [Molar ratio] 11 % Low 15-57 [facility] Comment on above: Order Comment: Speci men Type: BLOOD SPECIMENOrdering Facility: [facility] Address: [address] [place] [address] Performed By: #### I KENDRA FERR ####[facility] LABCLIA [id number] [address] [place] Retics #on 09-28-2021 Reticulocytes (Bld) [#/Vol] 0.79055 10*3/uL Normal 0.018-0.100 [facility] Comment on above: Order Comment: Speci men Type: BLOOD SPECIMENOrdering Facility: [facility] Address: [address] [place] [address] Performed By: #### 1 4196-0, 30707-0 ####[facility] LABCLIA [id number] [place] [address] Reticulocytes (Bld) [#/Vol]o n 09-28-2021 Reticulocytes/100 RBC (Bld) 1.0 % Normal 0.4-2.0 [facility] Comment on above: Order Comment: Speci men Type: BLOOD SPECIMENOrdering Facility: [facility] Address: [address] [place] [address] Performed By: #### 1 4196-0, 28716-3 ####[facility] LABCLIA [id number] [place] [id number] HCG,Quantitativeon 2 HCG,Quantitative < 0.60 Normal [facility] Comment on above: Result Comment: Appr oximate Approximate hCG Gestational Age Range (mIU/ml) (weeks) 0.2-1 5-50 1-2 50-500 2-3 100-5,000 3-4 500-10,000 4-5 1,000-50,000 5-6 10,000-100,000 6-8 15,000-200,000 8-12 10,000-100,000 PERFORMED BY: [place] [address] PATHOLOGIST INDUSTRIAL TECHNICIAN EDIN MONTERROSO M.D. Performed By: #### H CGQNT #### [address] Serum or plasma beta choriog onadotropin measurement (units/volume)Ordered By: Bryan Quiros on 09-20-2021 HCG.beta subunit Qn m[IU]/mL [facility] Comment on above: Approximate Approxim ate hCG Gestational Age Range (mIU/ml) (weeks) 0.2-1 5-50 1-2 50-500 2-3 100-5,000 3-4 500-10,000 4-5 1,000-50,000 5-6 10,000-100,000 6-8 15,000-200,000 8-12 10,000-100,000 COVID-19 FRon 09-15-2021 SARS-CoV-2 (COVID-19) RNA JULEE+probe Ql (Unsp spec) Negative Normal Negative [facility] Comment on above: Order Comment: Healt hcare Worker?: N Result Comment: Testing for SARS-CoV-2 by RT-PCR This test was developed and its performance characteristics determined by [employer]) and validated at the [facility]. This test has not been FDA [...] is terminated or revoked sooner. PERFORMED BY: [place] [address] PATHOLOGIST INDUSTRIAL TECHNICIAN EDIN MONTERROSO M.D. Performed By: #### C OVID 19 [place] #### [address] COVID-19 Positive/NegativeOr dered By: Bryan Quiros on 09-15-2021 SARS-CoV-2 (COVID-19) N gene JULEE+probe Ql (Resp) Negative Negative [facility] Comment on above: Testing for SARS-CoV -2 by RT-PCR This test was developed and its performance characteristics determined by [employer]) and validated at the [facility]. This test has not been FDA [...] Comment: Speci men Type: BLOOD SPECIMENOrdering Facility: [facility] Address: [address] [place] [address] Performed By: #### 5 7021-8 ####[facility] LABCLIA [id number] [place] [address] Basophils/100 WBC (Bld) 1.0 % Normal [facility] Comment on above: Order Comment: Speci men Type: BLOOD SPECIMENOrdering Facility: [facility] Address: [address] [place] [address] Performed By: #### 5 7021-8 ####[facility] LABCLIA [id number] [place] [address] Differential cell count method Nom (Bld) Auto Normal [facility] Comment on above: Order Comment: Speci men Type: BLOOD SPECIMENOrdering Facility: [facility] Address: [address] [place] [address] Performed By: #### 5 7021-8 ####[facility] LABCLIA [id number] [place] [address] Eosinophils (Bld) [#/Vol] 0.18 10*3/uL Normal <0.46 [facility] Comment on above: Order Comment: Speci men Type: BLOOD SPECIMENOrdering Facility: [facility] Address: [address] [place] [address] Performed By: #### 5 7021-8 ####[facility] LABCLIA [id number] [place] [address] Eosinophils/100 WBC (Bld) 4.6 % Normal [facility] Comment on above: Order Comment: Speci men Type: BLOOD SPECIMENOrdering Facility: [facility] Address: [address] [place] [address] Performed By: #### 5 7021-8 ####[facility] LABCLIA [id number] [place] [address] Erythrocyte distribution width (RBC) [Ratio] 14.9 % Normal 11.5-15.0 [facility] Comment on above: Order Comment: Speci men Type: BLOOD SPECIMENOrdering Facility: [facility] Address: [address] [place] [address] Performed By: #### 5 7021-8 ####[facility] LABCLIA [id number] [place] [address] Hematocrit (Bld) [Volume fraction] 38.6 % Normal 36.0-46.0 [facility] Comment on above: Order Comment: Speci men Type: BLOOD SPECIMENOrdering Facility: [facility] Address: [address] [place] [address] Performed By: #### 5 7021-8 ####[facility] LABIA [id number] [place] [address] Hemoglobin (Bld) [Mass/Vol] 12.2 g/dL Normal 11.5-15.5 [facility] Comment on above: Order Comment: Speci men Type: BLOOD SPECIMENOrdering Facility: [facility] Address: [address] [place] [address] Performed By: #### 5 7021-8 ####[facility] LABIA [id number] [place] [address] IMMATURE GRAN % 0.3 % Normal [facility] Comment on above: Order Comment: Speci men Type: BLOOD SPECIMENOrdering Facility: [facility] Address: [address] [place] [address] Performed By: #### 5 7021-8 ####[facility] LABIA [id number] [place] [address] IMMATURE GRAN ABS <0.03 Normal <0.10 [facility] Comment on above: Order Comment: Speci men Type: BLOOD SPECIMENOrdering Facility: [facility] Address: [address] [place], [place] [address] Performed By: #### 5 7021-8 ####[facility] LABCLIA [id number] [place] [address] Lymphocytes (Bld) [#/Vol] 1.57 10*3/uL Normal 1.00-4.00 [facility] Comment on above: Order Comment: Speci men Type: BLOOD SPECIMENOrdering Facility: [facility] Address: [address] [place] [address] Performed By: #### 5 7021-8 ####[facility] LABCLIA [id number] [place] [address] Lymphocytes/100 WBC (Bld) 40.4 % Normal [facility] Comment on above: Order Comment: Speci men Type: BLOOD SPECIMENOrdering Facility: [facility] Address: [address] [place] [address] Performed By: #### 5 7021-8 ####[facility] LABCLIA [id number] [place] [address] MCH (RBC) [Entitic mass] 27.2 pg Normal 26.0-34.0 [facility] Comment on above: Order Comment: Speci men Type: BLOOD SPECIMENOrdering Facility: [facility] Address: [address] [place] [address] Performed By: #### 5 7021-8 ####[facility] LABCLIA [id number] [place] [address] MCHC (RBC) [Mass/Vol] 31.6 g/dL Normal 30.5-36.0 [facility] Comment on above: Order Comment: Speci men Type: BLOOD SPECIMENOrdering Facility: [facility] Address: [address] [place] [address] Performed By: #### 5 7021-8 ####[facility] LABCLIA [id number] [place] [address] MCV (RBC) [Entitic vol] 86.2 fL Normal 80.0-100.0 [facility] Comment on above: Order Comment: Speci men Type: BLOOD SPECIMENOrdering Facility: [facility] Address: [address] [place] [address] Performed By: #### 5 7021-8 ####[facility] LABCLIA [id number] [place] [address] Monocytes (Bld) [#/Vol] 0.43 10*3/uL Normal <0.87 [facility] Comment on above: Order Comment: Speci men Type: BLOOD SPECIMENOrdering Facility: [facility] Address: [address] [place] [address] Performed By: #### 5 7021-8 ####[facility] LABCLIA [id number] [place] [address] Monocytes/100 WBC (Bld) 11.1 % Normal [facility] Comment on above: Order Comment: Speci men Type: BLOOD SPECIMENOrdering Facility: [facility] Address: [address] [place] [address] Performed By: #### 5 7021-8 ####[facility] LABCLIA [id number] [place] [address] Neutrophils (Bld) [#/Vol] 1.66 10*3/uL Normal 1.45-7.50 [facility] Comment on above: Order Comment: Speci men Type: BLOOD SPECIMENOrdering Facility: [facility] Address: [address] [place] [address] Performed By: #### 5 7021-8 ####[facility] LABCLIA [id number] [place] [address] Neutrophils/100 WBC (Bld) 42.6 % Normal [facility] Comment on above: Order Comment: Speci men Type: BLOOD SPECIMENOrdering Facility: [facility] Address: [address] [place] [address] Performed By: #### 5 7021-8 ####[facility] LABCLIA [id number] [place] [address] Nucleated RBC (Bld) [#/Vol] 10*3/uL Normal <0.01 [facility] Comment on above: Order Comment: Speci men Type: BLOOD SPECIMENOrdering Facility: [facility] Address: [address] [place] [address] Performed By: #### 5 7021-8 ####[facility] LABIA [id number] [place] [address] Nucleated RBC/100 WBC (Bld) [Ratio] 0.0 /100 WBC Normal [facility] Comment on above: Order Comment: Speci men Type: BLOOD SPECIMENOrdering Facility: [facility] Address: [address] [place] [address] Performed By: #### 5 7021-8 ####[facility] LABIA [id number] [place] [address] Platelet mean volume (Bld) [Entitic vol] 10.2 fL Normal 9.0-12.7 [facility] Comment on above: Order Comment: Speci men Type: BLOOD SPECIMENOrdering Facility: [facility] Address: [address] [place] [address] Performed By: #### 5 7021-8 ####[facility] LABIA [id number] [place] [address] Platelets (Bld) [#/Vol] 279 10*3/uL Normal 150-400 [facility] Comment on above: Order Comment: Speci men Type: BLOOD SPECIMENOrdering Facility: [facility] Address: [address] [place], [place] [address] Performed By: #### 5 7021-8 ####[facility] LABIA [id number] [place] [address] RBC (Bld) [#/Vol] 4.48 10*6/uL Normal 3.90-5.20 [facility] Comment on above: Order Comment: Speci men Type: BLOOD SPECIMENOrdering Facility: [facility] Address: [address] [place] [phone] Performed By: #### 5 7021-8 ####[facility] LABCLIA [id number] [place] [address] WBC (Bld) [#/Vol] 3.89 10*3/uL Normal 3.70-11.00 [facility] Comment on above: Order Comment: Speci men Type: BLOOD SPECIMENOrdering Facility: [facility] Address: [address] [place] [phone] Performed By: #### 5 7021-8 ####[facility] LABCLIA [id number] [place] [address] CNOVSPon 08-14-2021 CNOVSP Visit (SP) Office (HEMASA) NELE GARCIA ([id number]) 1980 F Date Time Provider Department 08/14/21 [...] more details. She was born in [place] and has lived in [place] in the past. She reports occasional smoking - cigars that are dipped in cognac - last use a month back. Occasional alcohol use. No other substance abuse reported. She lives with her with 5 children. She is not working now but used to work at [employer] (was laid off during COVID-19). MEDICATIONS AND [...] which included preparing to see the patient, qwex-pe-xouy patient care, completing clinical documentation, obtaining and/or reviewing separately obtained history, performing a medically appropriate examination, counseling and educating the patient/family/careg iver, ordering medications, tests, or procedures, independently interpreting results (not separately reported) and communicating results to the patient/family/careg iver. CC: Blade Crews . Referring Provider: NEHEMIAS WARD [[id number]] Allergies As of Date: 08/14/2021 (No Known Allergies) Date Reviewed: 08/14/2021 Reviewed by: Aranza Mobley MA - Fully Assessed Reason for Visit: Anemia [6] Cmt: 1 month follow up Primary Visit Diagnosis:Iron deficiency anemia, unspecified iron deficiency anemia type [D50.9] Order(s):CBC + DIFF [SQCBCDIF] Order #: [id number] FUTURE RETIC C (more content not included)... Normal [facility] IRON + TIBCon 08-14-2021 Iron [Mass/Vol] 61 ug/dL Normal 41-186 [facility] Comment on above: Order Comment: Speci men Type: BLOOD SPECIMENOrdering Facility: [facility] Address: [address] [place] [address] Result Comment: Resu lts may be falsely increased due to interference from hemolysis. Suggest reorder as clinically indicated. Performed By: #### I KENDRA ####[facility] LABCLIA [id number] [address] Iron binding capacity [Mass/Vol] Normal [facility] Comment on above: Order Comment: Speci men Type: BLOOD SPECIMENOrdering Facility: [facility] Address: [address] [place] [address] Result Comment: Unab le to calculate due to hemolysis. Performed By: #### I KENDRA ####[facility] LABCLIA [id number] [address] Iron/TIBC [Molar ratio] Normal [facility] Comment on above: Order Comment: Speci men Type: BLOOD SPECIMENOrdering Facility: [facility] Address: [address] [place] [address] Result Comment: Unab le to calculate due to hemolysis. Performed By: #### I KENDRA ####[facility] LABCLIA [id number] [address] OF [facility] CBC W Auto Differential pane l (Bld)on 06-26-2021 Basophils (Bld) [#/Vol] 0.04 10*3/uL Normal <0.11 [facility] Comment on above: Order Comment: Speci men Type: BLOOD SPECIMENOrdering Facility: [facility] Address: [address] [place] [address] Performed By: #### 5 7021-8 ####[facility] LABCLIA [id number] [place] [address] Basophils/100 WBC (Bld) 0.8 % Normal [facility] Comment on above: Order Comment: Speci men Type: BLOOD SPECIMENOrdering Facility: [facility] Address: [address] [place] [address] Performed By: #### 5 7021-8 ####[facility] LABCLIA [id number] [place] [address] Differential cell count method Nom (Bld) Auto Normal [facility] Comment on above: Order Comment: Speci men Type: BLOOD SPECIMENOrdering Facility: [facility] Address: [address] [place] [address] Performed By: #### 5 7021-8 ####[facility] LABCLIA [id number] [place] [address] Eosinophils (Bld) [#/Vol] 0.14 10*3/uL Normal <0.46 [facility] Comment on above: Order Comment: Speci men Type: BLOOD SPECIMENOrdering Facility: [facility] Address: [address] [place] [address] Performed By: #### 5 7021-8 ####[facility] LABCLIA [id number] [place] [address] Eosinophils/100 WBC (Bld) 2.9 % Normal [facility] Comment on above: Order Comment: Speci men Type: BLOOD SPECIMENOrdering Facility: [facility] Address: [address] [place] [address] Performed By: #### 5 7021-8 ####[facility] LABCLIA [id number] [place] [address] Erythrocyte distribution width (RBC) [Ratio] 15.4 % High 11.5-15.0 [facility] Comment on above: Order Comment: Speci men Type: BLOOD SPECIMENOrdering Facility: [facility] Address: [address] [place] [address] Performed By: #### 5 7021-8 ####[facility] LABCLIA [id number] [place] [address] Hematocrit (Bld) [Volume fraction] 38.8 % Normal 36.0-46.0 [facility] Comment on above: Order Comment: Speci men Type: BLOOD SPECIMENOrdering Facility: [facility] Address: [address] [place] [address] Performed By: #### 5 7021-8 ####[facility] LABCLIA [id number] [place] [address] Hemoglobin (Bld) [Mass/Vol] 12.4 g/dL Normal 11.5-15.5 [facility] Comment on above: Order Comment: Speci men Type: BLOOD SPECIMENOrdering Facility: [facility] Address: [address] [place] [address] Performed By: #### 5 7021-8 ####[facility] LABCLIA [id number] [place] [address] IMMATURE GRAN % 0.2 % Normal [facility] Comment on above: Order Comment: Speci men Type: BLOOD SPECIMENOrdering Facility: [facility] Address: [address] [place] [address] Performed By: #### 5 7021-8 ####[facility] LABIA [id number] [place] [address] IMMATURE GRAN ABS <0.03 Normal <0.10 [facility] Comment on above: Order Comment: Speci men Type: BLOOD SPECIMENOrdering Facility: [facility] Address: [address] [place] [address] Performed By: #### 5 7021-8 ####[facility] LABCLIA [id number] [place] [address] Lymphocytes (Bld) [#/Vol] 1.53 10*3/uL Normal 1.00-4.00 [facility] Comment on above: Order Comment: Speci men Type: BLOOD SPECIMENOrdering Facility: [facility] Address: [address] [place] [address] Performed By: #### 5 7021-8 ####[facility] LABIA [id number] [place] [address] Lymphocytes/100 WBC (Bld) 31.2 % Normal [facility] Comment on above: Order Comment: Speci men Type: BLOOD SPECIMENOrdering Facility: [facility] Address: [address] [place], [place] [address] Performed By: #### 5 7021-8 ####[facility] LABCLIA [id number] [place] [address] MCH (RBC) [Entitic mass] 27.1 pg Normal 26.0-34.0 [facility] Comment on above: Order Comment: Speci men Type: BLOOD SPECIMENOrdering Facility: [facility] Address: [address] [place] [address] Performed By: #### 5 7021-8 ####[facility] LABCLIA [id number] [place] [address] MCHC (RBC) [Mass/Vol] 32.0 g/dL Normal 30.5-36.0 [facility] Comment on above: Order Comment: Speci men Type: BLOOD SPECIMENOrdering Facility: [facility] Address: [address] [place] [address] Performed By: #### 5 7021-8 ####[facility] LABIA [id number] [place] [address] MCV (RBC) [Entitic vol] 84.7 fL Normal 80.0-100.0 [facility] Comment on above: Order Comment: Speci men Type: BLOOD SPECIMENOrdering Facility: [facility] Address: [address] [place] [address] Performed By: #### 5 7021-8 ####[facility] LABCLIA [id number] [place] [address] Monocytes (Bld) [#/Vol] 0.49 10*3/uL Normal <0.87 [facility] Comment on above: Order Comment: Speci men Type: BLOOD SPECIMENOrdering Facility: [facility] Address: [address] [place] [address] Performed By: #### 5 7021-8 ####[facility] LABCLIA [id number] [place] [address] Monocytes/100 WBC (Bld) 10.0 % Normal [facility] Comment on above: Order Comment: Speci men Type: BLOOD SPECIMENOrdering Facility: [facility] Address: [address] [place] [address] Performed By: #### 5 7021-8 ####[facility] LABCLIA [id number] [place] [address] Neutrophils (Bld) [#/Vol] 2.70 10*3/uL Normal 1.45-7.50 [facility] Comment on above: Order Comment: Speci men Type: BLOOD SPECIMENOrdering Facility: [facility] Address: [address] [place] [address] Performed By: #### 5 7021-8 ####[facility] LABCLIA [id number] [place] [address] Neutrophils/100 WBC (Bld) 54.9 % Normal [facility] Comment on above: Order Comment: Speci men Type: BLOOD SPECIMENOrdering Facility: [facility] Address: [address] [place] [address] Performed By: #### 5 7021-8 ####[facility] LABCLIA [id number] [place] [address] Nucleated RBC (Bld) [#/Vol] 10*3/uL Normal <0.01 [facility] Comment on above: Order Comment: Speci men Type: BLOOD SPECIMENOrdering Facility: [facility] Address: [address] [place], [place] [address] Performed By: #### 5 7021-8 ####[facility] LABCLIA [id number] [place] [address] Nucleated RBC/100 WBC (Bld) [Ratio] 0.0 /100 WBC Normal [facility] Comment on above: Order Comment: Speci men Type: BLOOD SPECIMENOrdering Facility: [facility] Address: [address] [place], [place] [address] Performed By: #### 5 7021-8 ####[facility] LABCLIA [id number] [place] [address] Platelet mean volume (Bld) [Entitic vol] 9.5 fL Normal 9.0-12.7 [facility] Comment on above: Order Comment: Speci men Type: BLOOD SPECIMENOrdering Facility: [facility] Address: [address] [place] [address] Performed By: #### 5 7021-8 ####[facility] LABCLIA [id number] [place] [address] Platelets (Bld) [#/Vol] 286 10*3/uL Normal 150-400 [facility] Comment on above: Order Comment: Speci men Type: BLOOD SPECIMENOrdering Facility: [facility] Address: [address] [place] [address] Performed By: #### 5 7021-8 ####[facility] LABCLIA [id number] [place] [address] RBC (Bld) [#/Vol] 4.58 10*6/uL Normal 3.90-5.20 [facility] Comment on above: Order Comment: Speci men Type: BLOOD SPECIMENOrdering Facility: [facility] Address: [address] [place] [address] Performed By: #### 5 7021-8 ####[facility] LABCLIA [id number] [place] [address] WBC (Bld) [#/Vol] 4.91 10*3/uL Normal 3.70-11.00 [facility] Comment on above: Order Comment: Speci men Type: BLOOD SPECIMENOrdering Facility: [facility] Address: [address] [place] [address] Performed By: #### 5 7021-8 ####[facility] LABCLIA [id number] [place] [address] CNOVSPon 06-26-2021 CNOVSP Visit (SP) Office (HEMASA) NEEL GARCIA ([id number]) 1980 F Date Time Provider Department 06/26/21 [...] more details. She was born in [place] and has lived in [place] in the past. She reports occasional smoking - cigars that are dipped in cognac - last use a month back. Occasional alcohol use. No other substance abuse reported. She lives with her with 5 children. She is not working now but used to work at [employer] (was laid off during ). MEDICATIONS AND [...] which included preparing to see the patient, lezd-fg-jgvj patient care, completing clinical documentation, obtaining and/or reviewing separately obtained history, performing a medically appropriate examination, counseling and educating the patient/family/careg iver, ordering medications, tests, or procedures, independently interpreting results (not separately reported) and communicating results to the patient/family/careg iver. CC (more content not included)... Normal [facility] COVID-19 [place] 06-26-2021 SARS-CoV-2 (COVID-19) RNA JULEE+probe Ql (Unsp spec) Negative Normal Negative [facility] Comment on above: Order Comment: Healt hcare Worker?: N Result Comment: Testing for SARS-CoV-2 by RT-PCR This test was developed and its performance characteristics determined by [employer]) and validated at the [facility]. This test has not been FDA [...] is terminated or revoked sooner. PERFORMED BY: [facility] [address] [place] [address] PATHOLOGIST INDUSTRIAL TECHNICIAN EDIN MONTERROSO M.D. Performed By: #### C OVID 19 [place] #### [facility] [address] [id number] [facility] COVID-19 Positive/NegativeOr dered By: Bryan Quiros on 06-26-2021 SARS-CoV-2 (COVID-19) N gene JULEE+probe Ql (Resp) Negative Negative [facility] Comment on above: Testing for SARS-CoV -2 by RT-PCR This test was developed and its performance characteristics determined by [employer] ([employer]) and validated at the [facility]. This test has not been FDA [...] 06-26-2021 Ferritin [Mass/Vol] 34.6 ng/mL Normal 14.7-205.1 [facility] Comment on above: Order Comment: Speci men Type: BLOOD SPECIMENOrdering Facility: [facility] Address: [address] [place] [address] Performed By: #### Brandee GARDNER FERR ####[facility] LABCLIA [id number] [place] [address] [place] IRON + TIBCon 06-26-2021 Iron [Mass/Vol] 60 ug/dL Normal 41-186 [facility] Comment on above: Order Comment: Speci men Type: BLOOD SPECIMENOrdering Facility: [facility] Address: [address] [place] [address] Performed By: #### I KENDRA, FERR ####[facility] LABCLIA [id number] [address] Iron binding capacity [Mass/Vol] 398 ug/dL High 232-386 [facility] Comment on above: Order Comment: Speci men Type: BLOOD SPECIMENOrdering Facility: [facility] Address: [address] [place] [address] Performed By: #### I KENDRA, FERR ####[facility] LABIA [id number] [address] Iron/TIBC [Molar ratio] 15 % Normal 15-57 [facility] Comment on above: Order Comment: Speci men Type: BLOOD SPECIMENOrdering Facility: [facility] Address: [address] [place] [address] Performed By: #### I KENDRA, FERR ####[facility] LABIA [id number] [address] CNPCathie 06-20-2021 CNPN Telephone (HEMASA) NEEL GARCIA ([id number]) 1980 F Date Time Provider Department 06/20/21 [...] [D50.9] Order(s):CBC + DIFF [SQCBCDIF] Order #: [id number] FUTURE Prescriptions as of 06/22/2021 - ferrous [...] Of Date: 06/20/2021 (None) Encounter Status:Closed by ROYALJuly on 06/22/21 [facility] Rhiannon 05-30-2021 CNPN Telephone (HEMASA) NEEL GARCIA ([id number]) 1980 F Date Time Provider Department 05/30/21 [...] iron once a day (prescription sent to [facility] pharmacy in [place], [place]) and follow-up in 1 month with repeat labs. She will also need a referral to see a specimen technician for scopes. MD Alina Thomas Sec 05/30/2021 12:48 PM Addendum sloane please send records to [employer] I will print facesheet for you Alina Burnett Sec 05/30/2021 12:50 PM Signed Patient is already scheduled for month appt Amelie Murray [facility] 05/30/2021 1:22 PM Signed Records faxed to Dr. Quiros. Miriam Raymond [facility] 06/05/2021 11:18 AM Signed Called [facility] and spoke with Karolina. She states they have received patient records and their office will be calling patient soon to schedule. Miriam Raymond [facility] Miriam Raymond [facility] 06/07/2021 3:01 PM Signed Called [facility] spoke with Christiane. She states their transitions rn care coordinator will be calling patient to schedule. Miriam Raymond [facility] Miriam Raymond [facility] 06/19/2021 10:42 AM Signed Called [facility] spoke with Karolina. She states they have tried to call patient left several messages and are waiting for patient to call their office back. Miriam Raymond [facility] Miriam Raymond [facility] 06/28/2021 1:07 PM Signed Spoke with Christiane from [facility] office. She states patient was scheduled today 06/28 for Colonoscopy and EGD, but they received voicemail from patient she wanted to cancel due to she was not feeling well. Miriam [facility] Vanna Villar 08/14/2021 2:43 PM Signed Spoke [...] deficiency anemia type [D50.9] Order(s):CONSULT TO GASTROENTEROLOGY [9077] Order #: [id number]: 1 FUTURE [] ferrous sulfate 325 mg (65 mg iron) tabletTake 1 tablet by mouth daily with breakfast.Disp: 30 tabletRfl: 2 IRON + TIBC [SQIRON] Order #: [id number] FUTURE FERRITIN BLD [SQFERR] Order #: [id number] FUTURE Prescriptions as of 08/14/2021 - SUMAtriptan [...] (Bld) [Time] 27.8 s Normal 23.0-32.4 Cl [facility] Comment on above: Result Comment: Unfr actionated [...] laboratory APTT reagent in use throughout the [facility]. Performed By: #### P TT, WSR, TT, FERR, FIBCT, PT, HAPTO, CRP, IRON ####[id number] [place], [place] [phone] C-Reactive Proteinon 022 C-Reactive Protein 0.5 mg/dL Normal <0.9 [facility] Comment on above: Performed By: #### P TT, WSR, TT, FERR, FIBCT, PT, HAPTO, CRP, IRON ####[id number] [place], [place] [phone] CNOVSPon 05-29-2021 CNOVSP Visit (SP) Office (HEMASA) NEEL GARCIA ([id number]) 1980 F Date Time Provider Department 05/29/21 [...] more details. She was born in [place] and has lived in [place] in the past. She reports occasional smoking - cigars that are dipped in cognac - last use a month back. Occasional alcohol use. No other substance abuse reported. She lives with her with 5 children. She is not working now but used to work at [employer] (was laid off during COVID-19). MEDICATIONS AND [...] which included preparing to see the patient, kngc-qp-dwfh patient care, completing clinical documentation, obtaining and/or reviewing separately obtained history, performing a medically appropriate examination, counseling and educating the patient/family/careg iver, ordering medications, tests, or procedures, independently interpreting results (not separately reported) and communicating results to the patient/family/careg iver. CC: Blade Crews Sr. Referring Provider: BLADE CREWS SR [[id number]] Allergies As of Date: 05/29/2021 (No Known Allergies) Date Reviewed: 05/29/2021 Reviewed by: Laurie Russell - Fully Assessed Reason for Visit: New Patient [172] Cmt: easy bruising Primary Visit Diagnosis:Anemia, unspecified type [D64.9] Other Visit Diagnosis:Easy bruisability [R23.8] Order(s):CBC + DIFF (FOR REMOTE [facility] USE) [SQRCBCDF] Order #: [id number] FUTURE COMP METABOLIC PANEL [SQCMP] Order #: [id number] FUTURE SED RATE WESTERGREN [SQWSR] Order #: [id number] FUTURE C-REACTIVE PROTEIN (CRP) [SQCRP] Order #: [id number] FUTURE IRON + TIBC [SQIRON] Order #: [id number] FUTU (more content not included)... Normal [facility] Comp Metabolic Panelon 05-29 Albumin [Mass/Vol] 4.6 g/dL Normal 3.9-4.9 [facility] Comment on above: Performed By: #### P TT, WSR, TT, FERR, FIBCT, PT, HAPTO, CRP, IRON ####[address] [place], [place] [phone] ALP [Catalytic activity/Vol] 83 U/L Normal 34-123 [facility] Comment on above: Performed By: #### P TT, WSR, TT, FERR, FIBCT, PT, HAPTO, CRP, IRON ####[place] [address] [place], [place] [phone] ALT [Catalytic activity/Vol] 21 U/L Normal 7-38 [facility] Comment on above: Performed By: #### P TT, WSR, TT, FERR, FIBCT, PT, HAPTO, CRP, IRON ####[place] [address] [address] [place], [place] [phone] Anion gap [Moles/Vol] 11 mmol/L Normal 9-18 [facility] Comment on above: Performed By: #### P TT, WSR, TT, FERR, FIBCT, PT, HAPTO, CRP, IRON ####[place] [address] [address] [place], [place] [phone] AST [Catalytic activity/Vol] 19 U/L Normal 13-35 [facility] Comment on above: Performed By: #### P TT, WSR, TT, FERR, FIBCT, PT, HAPTO, CRP, IRON ####[address] [phone] Bilirubin [Mass/Vol] 0.6 mg/dL Normal 0.2-1.3 [facility] Comment on above: Performed By: #### P TT, WSR, TT, FERR, FIBCT, PT, HAPTO, CRP, IRON ####[address] [phone] Calcium [Mass/Vol] 9.2 mg/dL Normal 8.5-10.2 [facility] Comment on above: Performed By: #### P TT, WSR, TT, FERR, FIBCT, PT, HAPTO, CRP, IRON ####[place] [phone] Chloride [Moles/Vol] 107 mmol/L High 97-105 [facility] Comment on above: Performed By: #### P TT, WSR, TT, FERR, FIBCT, PT, HAPTO, CRP, IRON ####[address] [phone] CO2 [Moles/Vol] 23 mmol/L Normal 22-30 [facility] Comment on above: Performed By: #### P TT, WSR, TT, FERR, FIBCT, PT, HAPTO, CRP, IRON ####[address] [phone] Creatinine [Mass/Vol] 1.00 mg/dL High 0.58-0.96 [facility] Comment on above: Performed By: #### P TT, WSR, TT, FERR, FIBCT, PT, HAPTO, CRP, IRON ####[address] [phone] eGFR- Amer. >60 Normal [facility] Comment on above: Performed By: #### P TT, WSR, TT, FERR, FIBCT, PT, HAPTO, CRP, IRON ####[place] [id number] [place], [place] [phone] eGFR-All Other Races >60 Normal [facility] Comment on above: Result Comment: eGFR (Estimated [...] TT, FERR, FIBCT, PT, HAPTO, CRP, IRON ####[place] [id number] [place], [place] [phone] Glucose [Mass/Vol] 85 mg/dL Normal 74-99 [facility] Comment on above: Result Comment: The [employer] Diabetes Association (ADA) provides guidance for cutoff [...] Standards of Medical Care in Diabetes 2016, [employer] Diabetes Association. Diabetes Care. 2016.39(Suppl 1). Performed By: #### P TT, WSR, TT, FERR, FIBCT, PT, HAPTO, CRP, IRON ####[address] [place], [place] [phone] Potassium [Moles/Vol] 3.3 mmol/L Low 3.7-5.1 [facility] Comment on above: Performed By: #### P TT, WSR, TT, FERR, FIBCT, PT, HAPTO, CRP, IRON ####[address] [phone] Protein [Mass/Vol] 7.6 g/dL Normal 6.3-8.0 [facility] Comment on above: Performed By: #### P TT, WSR, TT, FERR, FIBCT, PT, HAPTO, CRP, IRON ####[address] [phone] Sodium [Moles/Vol] 141 mmol/L Normal 136-144 [facility] Comment on above: Performed By: #### P TT, WSR, TT, FERR, FIBCT, PT, HAPTO, CRP, IRON ####[address] [phone] Urea nitrogen [Mass/Vol] 12 mg/dL Normal 7-21 [facility] Comment on above: Performed By: #### P TT, WSR, TT, FERR, FIBCT, PT, HAPTO, CRP, IRON ####[address] [phone] Ferritinon 05-29-2021 Ferritin [Mass/Vol] 14.6 ng/mL Low 14.7-205.1 [facility] Comment on above: Performed By: #### P TT, WSR, TT, FERR, FIBCT, PT, HAPTO, CRP, IRON ####[address] [place], [place] [phone] Fibrinogenon 05-29-2021 Fibrinogen 338 mg/dL Normal 200-400 [facility] Comment on above: Performed By: #### P TT, WSR, TT, FERR, FIBCT, PT, HAPTO, CRP, IRON ####[address] [place] [place], [place] [phone] Haptoglobinon 05-29-2021 Haptoglobin 161 mg/dL Normal 31-238 [facility] Comment on above: Performed By: #### P TT, WSR, TT, FERR, FIBCT, PT, HAPTO, CRP, IRON ####[address] [place], [place] [phone] Iron and TIBCon 05-29-2021 Iron [Mass/Vol] 53 ug/dL Normal 41-186 [facility] Comment on above: Performed By: #### P TT, WSR, TT, FERR, FIBCT, PT, HAPTO, CRP, IRON ####[address] [place], [place] [phone] TIBC 417 ug/dL High 232-386 [facility] Comment on above: Performed By: #### P TT, WSR, TT, FERR, FIBCT, PT, HAPTO, CRP, IRON ####[address] [phone] Transferrin Saturatn 13 % Low 15-57 [facility] Comment on above: Performed By: #### P TT, WSR, TT, FERR, FIBCT, PT, HAPTO, CRP, IRON ####[address] [phone] Platelet Func Scrnon 022 COL/ADP Cartridge Account Credited Normal <118 C [facility] Comment on above: Result Comment: Test Not Done Notified Dr. Ward at 0940 on 05.30.21 AB Performed By: #### P LTSCP ####[place] [id number] [place], [place] [phone] COL/EPI Cartridge Account Credited Normal <194 C [facility] Comment on above: Result Comment: Test Not Done Notified Dr. Ward at 0940 on 05.30.21 AB Performed By: #### P LTSCP ####[facility] [address] [place], [place] [phone] Plt Func Scr Interp Account Credited Normal [facility] Comment on above: Performed By: #### P LTSCP ####[facility] [address], [place] [phone] Protimeon 05-29-2021 PT INR 1.0 Normal 0.9-1.3 [facility] Comment on above: Result Comment: Kathy min K Antagonist (VKA) Therapeutic Range: INR 2 to 3 (Target INR of 2.5) Note: For patients treated with VKA drugs, such as warfarin, the [employer] College of [employer]icians 2012 Guideline recommends [...] to 3.5 (target INR of 3). Walter DAVENPORT, et al. Chest 2012, 141:7S-47S Srinivasa RA, et al. [facility] 2017, 70: 252-289 Performed By: #### P TT, WSR, TT, FERR, FIBCT, PT, HAPTO, CRP, IRON ####[facility] [address], [place] [phone] PT Sec 10.9 sec Normal 9.7-13.0 [facility] Comment on above: Performed By: #### P TT, WSR, TT, FERR, FIBCT, PT, HAPTO, CRP, IRON ####[facility] [address] [place], [place] [phone] Remote CBCDIF (for [facility]ICAL [facility] use only)on 05-29-2021 Abs Baso 0.04 k/uL Normal <0.11 [facility] Abs Hardy 0.49 k/uL Normal <0.87 [facility] [...] MCHC (RBC) [Mass/Vol] 31.9 g/dL Normal 30.5-36.0 [facility] MCV (RBC) [Entitic vol] 82.9 fL Normal [...] RBC (Bld) [#/Vol] 4.34 10*6/uL Normal 3.90-5.20 [facility] WBC (Bld) [#/Vol] 3.89 10*3/uL Normal 3.70-11.00 [facility] Reticulocyteon 05-29-2021 Abs Retic 0.047 M/uL Normal 0.0180-0.1000 [facility] Comment on above: Performed By: #### P TT, WSR, TT, FERR, FIBCT, PT, HAPTO, CRP, IRON ####[address] [phone] Retic% 1.1 % Normal 0.4-2.0 [facility] Comment on above: Performed By: #### P TT, WSR, TT, FERR, FIBCT, PT, HAPTO, CRP, IRON ####[address] [phone] Sed Rate Westergrenon 2021 Sed Rate Westergren 22 mm/hr High 0-20 [facility] Comment on above: Performed By: #### P TT, WSR, TT, FERR, FIBCT, PT, HAPTO, CRP, IRON ####[address] [phone] Thrombin Timeon 05-29-2021 Thrombin Time 17.3 sec Normal <18.6 [facility] Comment on above: Performed By: #### P TT, WSR, TT, FERR, FIBCT, PT, HAPTO, CRP, IRON ####[address] [phone] MRI BRAIN W WO CONTRASTon MRI BRAIN [...] collection present. The proximal portions of the [place] demonstrate normal flow voids. ORBITS: Limited evaluation of the orbits is unremarkable. SINUSES: The paranasal sinuses and mastoid air cells are clear. BONES/SOFT TISSUES: Bone marrow signal intensity is normal. IMPRESSION: Normal MRI of the brain without findings to explain the patient's seizures. Interpreted by: Erasmo Humphries MD Signed by: Erasmo Humphries MD 10/22/19 Final result Normal [facility] Normal MRI of the brain without findings to explain the patient's seizures. [facility] EX[facility]ATION: MRI OF THE BRAIN WITHOUT AND [...] collection present. The proximal portions of the [place] demonstrate normal flow voids. ORBITS: Limited evaluation of the orbits is unremarkable. SINUSES: The paranasal sinuses and mastoid air cells are clear. BONES/SOFT TISSUES: Bone marrow signal intensity is normal. [facility]- [place], [place] Jay, Mhpn Incoming Radiant Results From [employer] - 10/22/2019 4:01 PM EDT EXAMINATION: MRI OF THE BRAIN WITHOUT AND WITH CONTRAST 10/22/2019 2:33 pm TECHNIQUE: Multiplanar multisequence MRI of the head/brain was performed without and with the administration of intravenous contrast. COMPARISON: None. HISTORY: ORDERING SYSTEM PROVIDED HISTORY: Intractable epilepsy without status epilepticus, unspecified epilepsy type ([facility]) TECHNOLOGIST PROVIDED HISTORY: Is the patient ?->No [...] collection present. The proximal portions of the [place] demonstrate normal flow voids. ORBITS: Limited evaluation of the orbits is unremarkable. SINUSES: The paranasal sinuses and mastoid air cells are clear. BONES/SOFT TISSUES: Bone marrow signal intensity is normal. IMPRESSION: Normal MRI of the brain without findings to explain the patient's seizures. [facility] [place], [place] Vital Signs Date Time Vital Sign Value Performing Clinician Facility 10-30-2022 10:33-0400 Blood Pressure Location AMELIEALEXA ESPARZA [facility] [place] [facility] 10-30-2022 10:33-0400 Diastolic blood pressure 84 mm[Hg] AMELIE ESPARZA [facility] 10-30-2022 10:33-0400 Heart rate 61 /min AMELIE FRED [facility] 10-30-2022 10:33-0400 Respiratory rate 16 /min AMELIE FRED [facility] [place] [facility] 10-30-2022 10:33-0400 Systolic blood pressure 126 mm[Hg] AMELIE ESPARZA [facility] [place] [facility] 09-28-2021 13:53-0400 Body height 167.6 cm Nehemias Ward MD Work Phone: [facility] 09-28-2021 13:53-0400 Body temperature 97.59 [degF] Nehemias Ward MD Work Phone: [facility] 09-28-2021 13:53-0400 Body weight 86.55 kg Nehemias Ward MD Work Phone: [facility] 09-28-2021 13:53-0400 Diastolic blood pressure 70 mm[Hg] Nehemias Ward MD Work Phone: [facility] 09-28-2021 13:53-0400 Heart rate 65 /min Nehemias Ward MD Work Phone: [facility] 09-28-2021 13:53-0400 Respiratory rate 16 /min Nehemias Ward MD Work Phone: [facility] 09-28-2021 13:53-0400 SaO2% (BldA) [Mass fraction] 100 % Nehemias Ward MD Work Phone: [facility] 09-28-2021 13:53-0400 Systolic blood pressure 116 mm[Hg] Nehemias Ward MD Work Phone: [facility] 09-20-2021 08:45-0400 Diastolic blood pressure 68 mm[Hg] DO Blade House Work Phone: [facility] 09-20-2021 08:45-0400 Heart rate 68 /min DO Blade House Work Phone: [facility] 09-20-2021 08:45-0400 Respiratory rate 18 /min DO Blade House Work Phone: [facility] 09-20-2021 08:45-0400 SaO2% (BldA) [Mass fraction] 98 % DO Blade House Work Phone: [facility] 09-20-2021 08:45-0400 Systolic blood pressure 105 mm[Hg] DO Blade House Work Phone: [facility] 09-20-2021 06:49-0400 Body height 170.18 cm DO Blade Crews Work Phone: [facility] 09-20-2021 06:49-0400 Body mass index (BMI) [Ratio] 28.6 kg/m2 DO Blade Crews Work Phone: [facility] 09-20-2021 06:49-0400 Body temperature 98.5 [degF] DO Blade Crews Work Phone: [facility] 09-20-2021 06:49-0400 Body weight 83 kg DO Blade Crews Work Phone: [facility] 08-14-2021 13:40-0400 Body height 167.6 cm Nehemias Ward MD Work Phone: [facility] 08-14-2021 13:40-0400 Body temperature 97.11 [degF] Nehemias Ward MD Work Phone: [facility] 08-14-2021 13:40-0400 Body weight 88.72 kg Nehemias Ward MD Work Phone: [facility] 08-14-2021 13:40-0400 Diastolic blood pressure 57 mm[Hg] Nehemias Ward MD Work Phone: [facility] 08-14-2021 13:40-0400 Heart rate 65 /min Nehemias Ward MD Work Phone: [facility] 08-14-2021 13:40-0400 Respiratory rate 16 /min Nehemias Ward MD Work Phone: [facility] 08-14-2021 13:40-0400 SaO2% (BldA) [Mass fraction] 92 % Nehemias Ward MD Work Phone: [facility] 08-14-2021 13:40-0400 Systolic blood pressure 115 mm[Hg] Nehemias Ward MD Work Phone: [facility] 06-27-2021 13:43-0500 Body height 170.18 cm DO Blade Crews Work Phone: [facility] 06-27-2021 13:43-0500 Body mass index (BMI) [Ratio] 31 kg/m2 DO Blade Crews Work Phone: [facility] 06-27-2021 13:43-0500 Body weight 89.81 kg DO Blade Crews Work Phone: [facility] Encounters Encounter Date Encounter Type Care Provider Facility Start: 09-29-2024 ambulatory DO BLADE P HOUSE Faci lity:[facility] Start: 08-20-2024 ambulatory BLADE Soriano HOUSE Facilit y:[facility] Start: 06-22-2024 ambulatory DO BLADE P HOUSE Faci lity:[facility] Start: 06-22-2024 ambulatory DO BLADE P HOUSE Faci lity:[facility] Start: 05-31-2024 End: 05-31-2024 Emergency department patient visit BLADE CREWS [facility] Start: 04-01-2024 ambulatory DO BLADE Soriano HOUSE Faci lity:[facility] Start: 03-24-2024 ambulatory DO BLADE Soriano HOUSE Faci lity:[facility] Start: 02-14-2024 End: 02-15-2024 Emergency department patient visit BLADE Soriano [facility] Start: 12-10-2023 End: 12-10-2023 ambulatory RHANDA ADAM Not Available Start: 12-04-2023 End: 12-04-2023 ambulatory RHANDA AADM Not Available Start: 11-05-2023 End: 11-05-2023 ambulatory RICO DE JESUS Not Available Start: 11-04-2023 End: 11-04-2023 ambulatory RHANDA ADAM Not Available Start: 10-22-2023 End: 10-22-2023 ambulatory ALEX D BEJ Not Available Start: 10-22-2023 End: 10-22-2023 ambulatory ALXE D BEJ Not Available Start: 10-21-2023 End: 10-21-2023 ambulatory RHPOP ADAM Not Available Start: 10-18-2023 End: 10-20-2023 Emergency department patient visit PATIENCE OROZCO [facility] Start: 10-15-2023 End: 10-15-2023 ambulatory JOSTIN ADAM Not Available Start: 08-27-2023 End: 08-27-2023 ambulatory RICO CABELLO Not Available Start: 01-08-2023 End: 01-09-2023 ambulatory AMELIE ESPARZA Facility:[facility] Start: 01-08-2023 End: 01-08-2023 Patient encounter procedure AMELIE ESPARZA [facility] [place] [facility] Start: 11-13-2022 End: 11-14-2022 ambulatory Constantino MARTINEZ Facility:CD:[id number] Start: 10-30-2022 End: 10-31-2022 ambulatory AMELIE ESPARZA Facility:[facility] Start: 10-30-2022 End: 10-30-2022 Patient encounter procedure AMELIE ESPARZA [facility] [place] [facility] Start: 05-30-2022 End: 05-30-[address] INGRID DE LOS SANTOS Facility:[facility] Start: 05-30-2022 End: 05-31-[address] INGRID DE [place] Facility:[facility] Start: 05-27-2022 End: 05-27-[address] BLADE CREWS Facility:[facility] Start: 05-10-2022 End: 05-11-[address] BLADE CREWS Facility:[facility] Start: 02-26-2022 End: 02-27-[address] BLADE CREWS Facility:[facility] Start: 02-26-2022 Encounter for preprocedural laboratory examination DR INGRID DE [place] [facility] Start: 02-25-2022 End: 02-25-[address] BLADE CREWS Facility:[facility] Start: 02-16-2022 Encounter for preprocedural laboratory examination DR INGRID DE [place] [facility] Start: 02-15-2022 End: 02-16-2022 ambulatory Constantino MARTINEZ Facility:CD:[id number] Start: 02-15-2022 End: 02-19-2022 Evaluation and management of inpatient DR INGRID DE LOS SANTOS Facility:[facility] Start: 02-12-2022 End: 02-13-[address] INGRID DE [place]OS Facility:[facility] Start: 02-12-2022 End: 02-13-2022 Encounter for preprocedural laboratory examination DR INGRID DE LOS [place]OS Facility:[facility] Start: 02-07-2022 ambulatory AMELIE ESPARZA Facility :[facility] Start: 01-30-2022 Encounter for other preprocedural examination DR INGRID DE [place] [facility] Start: 01-29-2022 End: 01-30-[address] INGRID DE [place] Facility:[facility] Start: 01-29-2022 End: 01-30-2022 Encounter for other preprocedural examination DR INGRID DE [place]OS Facility:[facility] Start: 01-05-2022 End: 01-05-[address] INGRDI DE LOS SANTOS Facility:[facility] Start: 01-02-2022 End: [...] surgery center DO Blade Crews Work Phone: [facility] Start: 09-15-2021 End: 09-15-2021 Patient encounter procedure DO Blade Crews Work Phone: [facility] Start: 08-14-2021 End: 08-14-2021 ambulatory Nehemias Ward MD Work Phone: Hematology/Oncology Comment on above: Iron deficiency anem ia, unspecified iron deficiency anemia type (Primary Dx) Start: 08-14-2021 End: 08-14-2021 Patient encounter procedure Nehemias Ward MD Work Phone: [facility] Start: 06-28-2021 End: 06-28-2021 Departed Referred DO Blade Crews Work Phone: [facility] Start: 06-26-2021 End: 06-26-2021 Patient encounter procedure DO Blade Crews Work Phone: [facility] Start: 05-24-2021 Chart abstracting Nehemias guevara MD Work Phone: Hematology/Oncology Start: 10-22-2019 End: 10-25-2019 Patient encounter procedure ALEX LITTLE [facility] Start: 10-22-2019 End: 10-24-2019 Subsequent hospital visit by physician Page Mckeon Rm 1 [facility] Comment on above: Intractable epilepsy without status epilepticus, unspecified epilepsy type (HCC) Procedures Date Procedure Procedure Detail Performing Clinician Start: 11-13-2022 Cystourethroscopy with dilation of urethral stricture AMELIE FRED Start: 02-15-2022 Resection of Bilateral Fallopian Tubes, [...] 09-28-2022 Adult depression screening assessment DEPRESSION SCREENING [facility] Start: 06-26-2022 Adult depression screening assessment DEPRESSION SCREENING [facility] Start: 12-21-2021 Influenza vaccination [facility] Start: 09-28-2021 End: 11-28-2021 CBC W Auto Differential panel - Blood CBC + DIFF Lab Routine Iron deficiency anemia, unspecified iron deficiency anemia type Expected: 09/28/2021, Expires: 11/28/2021 [facility] Work Phone: Comment on above: Expected: 09/28/2021, Expires: Start: 09-28-2021 End: 11-28-2021 FERRITIN BLD FERRITIN BLD Lab Routine Iron deficiency anemia, unspecified iron deficiency anemia type Expected: 09/28/2021, Expires: 11/28/2021 [facility] Work Phone: Comment on above: Expected: 09/28/2021, Expires: 2 Start: 09-28-2021 End: 11-28-2021 IRON + TIBC IRON + TIBC Lab Routine Iron deficiency anemia, unspecified iron deficiency anemia type Expected: 09/28/2021, Expires: 11/28/2021 [facility] Work Phone: Comment on above: Expected: 09/28/2021, Expires: 2 Start: 08-14-2021 End: 10-14-2021 CBC W Auto Differential panel - Blood CBC + DIFF Lab Routine Iron deficiency anemia, unspecified iron deficiency anemia type Expected: 08/14/2021, Expires: 10/14/2021 [facility] Work Phone: Comment on above: Expected: 08/14/2021, Expires: 2 Start: 08-14-2021 End: 10-14-2021 FERRITIN BLD FERRITIN BLD Lab Routine Iron deficiency anemia, unspecified iron deficiency anemia type Expected: 08/14/2021, Expires: 10/14/2021 [facility] Work Phone: Comment on above: Expected: 08/14/2021, Expires: 2 Start: 08-14-2021 End: 10-14-2021 IRON + TIBC IRON + TIBC Lab Routine Iron deficiency anemia, unspecified iron deficiency anemia type Expected: 08/14/2021, Expires: 10/14/2021 [facility] Work Phone: Comment on above: Expected: 08/14/2021, Expires: 2 Start: 08-14-2021 End: 10-14-2021 RETIC COUNT RETIC COUNT Lab Routine Iron deficiency anemia, unspecified iron deficiency anemia type Expected: 08/14/2021, Expires: 10/14/2021 [facility] Work Phone: Comment on above: Expected: 08/14/2021, Expires: 2 Start: 06-28-2021 Esophagogastroduodenoscopy DH EGD/Colonoscopy (Not Applicable) [facility] Start: 12-21-2020 Influenza vaccination INFLUENZA (#1) [facility] Start: 12-22-2019 Influenza vaccination Flu vaccine (#1) [place], [place] Start: 2018 Lipid panel Lipid screen [place], [place] Start: 2018 Mammography MAMMOGRAM [facility] Start: 2008 HPV TESTING HPV TESTING [facility] Start: 1999 PAP TESTING PAP TESTING [facility] Start: 1999 Screening for malignant neoplasm of cervix Cervical cancer screen [place], [place] Start: 1997 DTaP/Tdap/Td vaccine (1 - Tdap) DTaP/Tdap/Td vaccine (1 - Tdap) [place], [place] Start: 1997 Urine microalbumin profile DTAP,TDAP,TD (1 - Tdap) [facility] Start: 1996 HEPATITIS C SCREENING HEPATITIS C SCREENING [facility] Start: 1996 HIV SCREENING HIV SCREENING [facility] Start: 1993 HIV screening HIV screen [place], [place] Start: 1990 Adult depression screening assessment DEPRESSION SCREENING [facility] Start: 1983 COVID-19 VACCINE (#1) COVID-19 VACCINE (#1) [facility] Start: 1983 COVID-19 VACCINE (1) COVID-19 VACCINE (1) [facility] Start: 1978 COVID-19 VACCINE (#1) COVID-19 VACCINE (#1) [facility] Ferritin [Mass/volum e] in Serum or Plasma FERRITIN BLD Lab Routine Iron deficiency anemia, unspecified iron deficiency anemia type 10/06/2021 1:31 PM EDT [facility] Work Phone: Iron and Iron bindin g capacity panel - Serum or Plasma IRON + TIBC Lab Routine Iron deficiency anemia, unspecified iron deficiency anemia type 10/06/2021 1:31 PM EDT [facility] Work Phone: [facility] Immunizations Immunization Date Immunization Notes Care Provider Fa juventino 02-16-2019 influenza, injectabl e, quadrivalent, preservative free Nehemias Ward MD Work Phone: [facility] 12-31-2017 influenza, injectabl e, quadrivalent, preservative free Nehemias Ward MD Work Phone: [facility] Payers Date Payer Category Payer Self-pay [id number] 2014 Unknown [facility] xxxxxxxxxxxx 2014-Present [phone] [address] [place] [address] xxxxxxxxxxxx [id number] 2002 Medicaid [place] [employer] [employer] [id number] 2002-Present [phone] [address] [place] [address] Medicaid [id number] 1978 Unknown [id number] 2.16.840.1.667072.3.579.2.175 1980 Unknown [id number] 2.16.840.1.178985.3.579.2.593 1978 Unknown [id number] 2.16.840.1.723006.3.579.2.593 1978 Unknown [id number] 2.16.840.1.726662.3.579.2.593 1978 Unknown [id number] 2.16.840.1.457328.3.579.2.593 1978 Unknown [id number] 2.16.840.1.899622.3.579.2.593 1978 Unknown [id number] 2.16.840.1.401714.3.579.2.593 1978 Unknown [id number] 2.16.840.1.495175.3.579.2.593 1978 Unknown [id number] 2.16.840.1.919239.3.579.2.593 1978 Unknown [id number] 2.16.840.1.386459.3.579.2.593 1978 Unknown [id number] 2.16.840.1.626129.3.579.2.593 1978 Unknown [id number] 2.16.840.1.700071.3.579.2.593 1978 Unknown [id number] 2.16.840.1.059884.3.579.2.593 1978 Unknown [id number] 2.16.840.1.536395.3.579.2.593 1978 Unknown [id number] 2.16.840.1.283472.3.579.2.593 1978 Unknown [id number] 2.16.840.1.482294.3.579.2.593 1978 Unknown [id number] 2.16.840.1.762876.3.579.2.727 1978 Unknown [id number] 2.16.840.1.410943.3.579.2.727 1978 Unknown [id number] 2.16.840.1.120192.3.579.2.727 1978 Unknown [id number] 2.16.840.1.456286.3.579.2.727 1978 Unknown [id number] 2.16.840.1.041372.3.579.2.125 9 1978 Unknown [id number] 2.16.840.1.211930.3.579.2.125 9 1978 Unknown [id number] 2.16.840.1.726291.3.579.2.125 9 1978 Unknown [id number] 2.16.840.1.454392.3.579.2.125 9 1978 Unknown [id number] 2.16.840.1.826953.3.579.2.125 9 1978 Unknown [id number] 2.16.840.1.635072.3.579.2.125 9 1978 Unknown [id number] 2.16.840.1.192681.3.579.2.125 9 1978 Unknown [id number] 2.16.840.1.004936.3.579.2.125 9 1978 Unknown [id number] 2.16.840.1.176652.3.579.2.125 9 1978 Unknown [id number] 2.16.840.1.689357.3.579.2.125 9 1978 Unknown [id number] 2.16.840.1.536541.3.579.2.128 6 1978 Unknown [id number] 2.16.840.1.345190.3.579.2.128 6 1978 Unknown [id number] 2.16.840.1.021490.3.579.2.128 6 1978 Unknown [id number] 2.16.840.1.323180.3.579.2.128 6 1978 Unknown [id number] 2.16.840.1.823293.3.579.2.718 1978 Unknown [id number] 2.16.840.1.468420.3.579.2.718 1978 Unknown [id number] 2.16.840.1.398341.3.579.2.718 1978 Unknown [id number] 2.16.840.1.389078.3.579.2.718 1978 Unknown [id number] 2.16.840.1.555338.3.579.2.718 1978 Unknown [id number] 2.16.840.1.800919.3.579.2.718 1959 Unknown [id number] Social History Date Type Detail Facility Tobacco smoking status NHIS [facility] 1980 Sex Assigned At Not on file [place], [place] Tobacco smoking status NHIS Tobacco smoking consumption unknown [facility] Start: 05-29-2021 Tobacco smoking status NHIS Occasional tobacco smoker [facility] Start: 05-29-2021 End: 09-28-2021 Tobacco use and exposure Smokeless tobacco non-user [facility] Start: 08-14-2021 End: 11-10-2021 Alcohol intake Current drinker of alcohol (finding) [facility] Start: 08-14-2021 End: 11-10-2021 Alcohol intake [facility] Start: 05-29-2021 History SDOH Alcohol Comment socially [facility] Start: 08-04-2021 End: 11-10-2021 Exposure to SARS-CoV-2 (event) Not sure [facility] Start: 1980 Sex Assigned At Female [facility] Start: 09-28-2021 End: 01-08-2023 Tobacco smoking status NHIS Ex-smoker [facility] Sex Assigned At Female [facility] Goals Date Patient Goal Desired Activity /State Functional Status Date Assessment Result Facility 01-08-2023 Functional Status N/A [facility] 10-30-2022 Functional Status N/A [facility] Clinical Notes 05-29-2021 to 01-08-2023 Telephone Encounter - Jian De La Cruz RN - 11/14/2021 3:15 PM EDTTelephone Encounter - Jian De La Cruz RN - 11/14/2021 3:15 PM EDTTelephone Encounter - Vika [facility] - 10/06/2021 1:13 PM EDT Note [...] provider. Document Revised: 08/17/2021 Document Reviewed: 08/17/2021 [employer] Patient Education 2022 [employer]. Follow Up Care 10/30/2022 11:37:59 With:FRED DUNCAN, AMELIE Jing, URL Address: [address] [place] [address] When: Unknown Comments:JERE [facility] 10-30-[address] [...] Pelvic US 12/20/21 no abnl CMP 02/25/22 sanding machine tender automatic 0.86 CBC 05/30/22 nl +Micro UA 02/25/22 [...] Pelvic US 12/20/21 no abnl CMP 02/25/22 sanding machine tender automatic 0.86 CBC 05/30/22 nl ICIQ-SF 12 Pt [...] day(s), # 2 tab(s), Refills(s) 0, Pharmacy: [facility]/pharmacy #[id number], 170, cm, 10/30/22 10:53:00 EDT, Height/Length Dosing, 86.5, kg, 10/30/22 10:53:00 EDT,... Measure Post Void residual urine and/or bladder capacity by US- non-imaging 10659 Follow-up With When Contact Information AMELIE ESPARZA PA-C, URL In 8 weeks [address] [place] [address] Additional Instructions: after Cysto w/ Dr. Martinez Patient Education Cystoscopy Documentation recorded by the scribe Lamar Estrada accurately reflects the services(s) I performed and decisions made by me. Authentic (more content not included)... [facility] Comment on above: Result [...] including vitamins, herbs, eye drops, creams, and czbk-uus-pfdlrsk medicines. Any problems you or family members [...] provider tells you to take them. Taking xvyn-qpo-bizqxlg medicines, vitamins, herbs, and supplements. Tests You [...] Follow these instructions at home: Medicines Take iina-srt-bzzznud and prescription medicines only as told by [...] provider. Document Revised: 12/20/2021 Document Reviewed: 11/18/2020 [employer] Patient Education 2022 [employer]. Follow Up Care 08/31/2022 13:02:06 With:AMELIE ESPARZA PA-C, URL Address: [address] [place] [phone] When:Within 8 Week(s) Comments:after Cysto w/ Dr. Martinez [facility] 10-30-2022 Note Urology Cystoscopy Cystoscopy is a [...] including vitamins, herbs, eye drops, creams, and lfos-mfz-ioqkchg medicines. ? Any problems you or family [...] tells you to take them. ? Taking zvjz-vsi-skrqved medicines, vitamins, herbs, and supplements. Tests You [...] these instructions at home: Medicines ? Take kaji-uuk-ucgfmuz and prescription medicines only as told by [...] the department th (more content not included)... [facility] 11-14-2021 Miscellaneous Notes Informed pt of Dr Ward's message. Pt verbalized understanding and denies further needs at this time. Jian De La Cruz RN ----- Message from Alina Barros RN sent at 11/13/2021 1:26 PM EDT ----- ----- Message ----- From: Nehemias Ward MD Sent: 11/11/2021 6:10 AM EDT To: Alina Barros RN [facility]. Can you please call pt and let her know that the iron profile is normal? No change in the recommendation. LETITIA ToribioK documented in this encounter [facility] 11-10-2021 Note HNO ID: [id number] Author: Nehemias Ward MD Service: ? Author [...] more details. She was born in [place] and has lived in [place] in the past. She reports occasional smoking - cigars that are dipped in cognac - last use a month back. Occasional alcohol use. No other substance abuse reported. She lives with her with 5 children. She is not working now but used to work at [employer] (was laid off during -). MEDICATIONS AND [...] which included preparing to see the patient, jbjh-nb-wfep patient care, completing clinical documentation, obtaining and/or reviewing separately obtained history, performing a medically appropriate examination, counseling and educating the patient/family/caregiver, ordering medications, tests, or procedures, independently interpreting results (not separately reported) and communicating results to the patient/family/caregiver. CC: Blade Crews Sr. [facility] 10-06-2021 Miscellaneous Notes 1st report of treatment-Non oncology regimen (Monoferric) Patient has [place] therefore no FA is required documented in this encounter [facility] 09-29-2021 Miscellaneous Notes Patient has been [...] Nehemias Ward MD documented in this encounter [facility] 09-28-2021 Note HNO ID: [id number] Author: Nehemias Ward MD Service: ? Author [...] more details. She was born in [place] and has lived in [place] in the past. She reports occasional smoking - cigars that are dipped in cognac - last use a month back. Occasional alcohol use. No other substance abuse reported. She lives with her with 5 children. She is not working now but used to work at [employer] (was laid off during ID-). MEDICATIONS AND [...] which included preparing to see the patient, yjsj-ab-uuxz patient care, completing clinical documentation, obtaining and/or [...] more details. She was born in [place] and has lived in [place] in the past. She reports occasional smoking - cigars that are dipped in cognac - last use a month back. Occasional alcohol use. No other substance abuse reported. She lives with her with 5 children. She is not working now but used to work at [employer] (was laid off during -). MEDICATIONS AND [...] which included preparing to see the patient, ieyd-cb-jlye patient care, completing clinical documentation, obtaining and/or reviewing separately obtained history, performing a medically appropriate examination, counseling and educating the patient/family/caregiver, ordering medications, tests, or procedures, independently interpreting results (not separately reported) and communicating results to the patient/family/caregiver. CC: Blade Crews Sr. documented in this encounter [facility] 09-20-2021 Procedure note [facility] 08-14-2021 Note HNO ID: [id number] Author: Nehemias Ward MD Service: ? Author [...] more details. She was born in [place] and has lived in [place] in the past. She reports occasional smoking - cigars that are dipped in cognac - last use a month back. Occasional alcohol use. No other substance abuse reported. She lives with her with 5 children. She is not working now but used to work at [employer] (was laid off during COVID-19). MEDICATIONS AND [...] which included preparing to see the patient, geyp-xm-upgt patient care, completing clinical documentation, obtaining and/or [...] more details. She was born in [place] and has lived in [place] in the past. She reports occasional smoking - cigars that are dipped in cognac - last use a month back. Occasional alcohol use. No other substance abuse reported. She lives with her with 5 children. She is not working now but used to work at [employer] (was laid off during COVID-). MEDICATIONS AND [...] which included preparing to see the patient, ohcr-gq-kwdp patient care, completing clinical documentation, obtaining and/or reviewing separately obtained history, performing a medically appropriate examination, counseling and educating the patient/family/caregiver, ordering medications, tests, or procedures, independently interpreting results (not separately reported) and communicating results to the patient/family/caregiver. CC: Blade Crews Sr. documented in this encounter [facility] 06-26-2021 Note HNO ID: [id number] Author: Nehemias Ward MD Service: ? Author [...] more details. She was born in [place] and has lived in [place] in the past. She reports occasional smoking - cigars that are dipped in cognac - last use a month back. Occasional alcohol use. No other substance abuse reported. She lives with her with 5 children. She is not working now but used to work at [employer] (was laid off during -). MEDICATIONS AND [...] which included preparing to see the patient, yusf-zz-heyy patient care, completing clinical documentation, obtaining and/or reviewing separately obtained history, performing a medically appropriate examination, counseling and educating the patient/family/caregiver, ordering medications, tests, or procedures, independently interpreting results (not separately reported) and communicating results to the patient/family/caregiver. CC: Blade Crews Sr. [facility] 05-29-2021 Note HNO ID: [id number] Author: Nehemias Ward MD Service: ? Author [...] more details. She was born in [place] and has lived in [place] in the past. She reports occasional smoking - cigars that are dipped in cognac - last use a month back. Occasional alcohol use. No other substance abuse reported. She lives with her with 5 children. She is not working now but used to work at [employer] (was laid off during ). MEDICATIONS AND [...] which included preparing to see the patient, myzl-er-zjzd patient care, completing clinical documentation, obtaining and/or reviewing separately obtained history, performing a medically appropriate examination, counseling and educating the patient/family/caregiver, ordering medications, tests, or procedures, independently interpreting results (not separately reported) and communicating results to the patient/family/caregiver. CC: Blade Crews Sr. [facility] Evaluation + Plan note Future Appointments Appointment Date:01/08/2023 03:00:00 PM Scheduled Provider:AMELIE ESPARZA PA-C Location:[facility] Appointment Type:URO Office Visit [facility] Evaluation note Diagnosis Iron deficiency anemia, unspecified iron deficiency anemia type- Primary [facility]No assessment [facility] Work Phone: Evaluation note* Diagnosis Iron deficiency anemia, unspecified iron deficiency anemia type- Primary Easy bruisability Other symptoms involving skin and integumentary tissues [facility] Diagnosis Iron deficiency anemia, unspecified iron deficiency anemia type documented [facility]* Diagnosis Onset Date Resolution Status Iron deficiency anemia acute [facility] Work Phone: Evaluation note* Diagnosis Iron deficiency anemia, unspecified iron deficiency anemia type- Primary documented in this encounter [facility] and [facility] note Author Bryan Quiros [facility] September 20, 2021 7:58am Note Date/Time September 20, 2021 7:54a m [facility] [address] [place] [address] Gastroenterology H&P Signed Patient: Neel Garcia MR#: [id number] : 1980 Acct:[id number] Age/Sex: 41 / F Adm Date: 2 Loc: Room: Type: [facility] Attending Dr: Bryan Quiros DO Copies to: [...] by Bryan Quiros Jr, DO> 09/20/21 0758 [facility] Work Phone: Hospital course Narrative No data available for this section [facility] progress note No data available for this section [facility] Reason for Referral Status Reason Specialty Diagnoses / Procedures Referre d By Contact Referred To Contact Open Radiology Diagnoses Intractable epilepsy without status epilepticus, unspecified epilepsy type (HCC) Procedures MRI BRAIN W WO CONTRAST Alex Little MD [address] [place] [address] Assessments Diagnosis Intractable epilepsy without status epilepticus, unspecified epilepsy type (HCC) Advance Directives No Advanced Directives Records FoundDocuments on File Type Date 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 [facility] [address] [place] [address] [facility] M[facility] [address] [place] [address] Reason Comments Anemia 1 month follow up Reason Comments Anemia Reason Comments Results Reason Comments Benefits Investigation Specialty Diagnoses / Procedures Referred By Contac t Referred To Contact Diagnoses Iron deficiency anemia, unspecified iron deficiency anemia type Procedures INJECTION, FERRIC DERISOMALTOSE, 10 MG Nehemias Ward MD [address] [place] [address] [place] [address] [address] [place] [address] Referral ID Status Reason Start Date Expiration Date V isits Requested Visits Authorized [id number] Authorized 09/29/2021 01/02/2022 1 1 INFORMATION SOURCE (unrecogn ized section and content) DATE CREATED AUTHOR 11/12/2019 [facility] DATE CREATED AUTHOR AUTHOR'S ORGANIZ ATION 09/24/2021 [facility] DATE CREATED AUTHOR AUTHOR'S ORGANIZ ATION 11/16/2021 [facility] DATE CREATED AUTHOR AUTHOR'S ORGANIZ ATION 06/05/2022 [facility] DATE CREATED AUTHOR AUTHOR'S ORGANIZ ATION 01/09/2023 [facility] DATE CREATED AUTHOR AUTHOR'S ORGANIZ ATION 12/12/2023 [facility] dical [facility] DATE CREATED AUTHOR AUTHOR'S ORGANIZ ATION 06/01/2024 [facility] DATE CREATED AUTHOR AUTHOR'S RANDA ATION 10/05/2024 [facility] l Source Comments (unrecognize d section and content) In the event this informatio n is protected by the Federal Confidentiality of Alcohol and Drug Abuse Patient Records regulations: The Federal rules restrict any use of the information to criminally investigate or prosecute any alcohol or drug abuse patient.[facility] the event this information is protected by the Federal Confidentiality of Alcohol and Drug Abuse Patient Records regulations: The Federal rules restrict any use of the information to criminally investigate or prosecute any alcohol or drug abuse patient.[facility] the event this information is protected by the Federal Confidentiality of Alcohol and Drug Abuse Patient Records regulations: The Federal rules restrict any use of the information to criminally investigate or prosecute any alcohol or drug abuse patient.[facility] Hospital[facility] the event this information is protected by the Federal Confidentiality of Alcohol and Drug Abuse Patient Records regulations: The Federal rules restrict any use of the information to criminally investigate or prosecute any alcohol or drug abuse patient.[facility] the event this information is protected by the Federal Confidentiality of Alcohol and Drug Abuse Patient Records regulations: The Federal rules restrict any use of the information to criminally investigate or prosecute any alcohol or drug abuse patient.[facility] the event this information is protected by the Federal Confidentiality of Alcohol and Drug Abuse Patient Records regulations: The Federal rules restrict any use of the information to criminally investigate or prosecute any alcohol or drug abuse patient.[facility] HospitalIn the event this information is protected by the Federal Confidentiality of Alcohol and Drug Abuse Patient Records regulations: The Federal rules restrict any use of the information to criminally investigate or prosecute any alcohol or drug abuse patient.[facility] Care Teams (unrecognized sec tion and content) Landing Worker Relationship Specialty Start Date End Date Isiah Evangelista [address] [place] [address] Referring FRAMER 07/29/18 Landing Worker Relationship Specialty Start Date End Date Blade Crews Sr. [address] [place] [address] PCP - General Family Practice 05/29/21 Isiah Evangelista [address] [place] [address] Referring FRAMER 07/29/18 Team Status: Inactive Member Role Status Dates Blade Crews , Primary Care Provider Active Bryan Quiros DO Attending Provider Active Team Status: Active Member Role Status Dates Blade Crews , Primary Care Provider Active Landing Worker Relationship Specialty Start Date End Date Blade Crews Sr. [address] [facility] [place] [address] PCP - General Family Practice 05/29/21 Isiah Evangelista [address] [place] [address] Referring FRAMER 07/29/18 Landing Worker Relationship Specialty Start Date End Date Blade Crews Sr. [address] [facility] [place] [place] [address] PCP - General Family Practice 05/29/21 Isiah Evangelista[address] [place] [address] Referring FRAMER 07/29/18 Landing Worker Relationship Specialty Start Date End Date Blade Crews Sr. [address] [place] [address] PCP - General Family Practice 05/29/21 Isiah Evangelista [address] [place] [address] Referring FRAMER 07/29/18 Landing Worker Relationship Specialty Start Date End Date Blade Crews Sr. [address] [place] [address] PCP - General Family Practice 05/29/21 Isiah Evangelista [address] [place] [address] Referring FRAMER 07/29/18 Goals (unrecognized section and content) Goals [...] BE BASED ON THE PRIMARY CLINICAL RECORDS. [employer] [facility]. provides no warranty or guarantee of the accuracy or completeness of information in this document.
--- NOTE | 2024-12-02 20:18 | ECG_ITS ---
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 Measurements Intervals [place] Rate: 69 P: 73 MN: 194 QRS: 91 QRSD: 82 T: 77 QT: 414 QTc: 433 Interpretive Statements 1100 Sinus rhythm 7102 Moderate right axis deviation 9110 normal ECG Compared to ECG 11/23/2022 20:54:57 No significant changes Electronically Signed On 12-03-2024 19:25:29 EDT by JEM HAMILTON M.D.
--- NOTE | 2024-12-02 20:30 | ED.CHESTPAI1 ---
HPI - Chest Pain General Chief Complaint: Chest Pain Stated Complaint: CHEST PAIN, L ARM HEAVINESS, NECK & BACK PAIN, Time Seen by Provider: 12/02/24 20:21 Source: patient Mode of arrival: Wheelchair History of Present Illness HPI narrative: past history of chronic back pain for which she takes Celebrex. Also history of anxiety. States sitting down about to watch a movie and developed chest pain that increased with deep breath. Pain left shoulder and neck and pain of he left leg. No nausea or vomiting or fever. Pain started about 2-3 hours ago. Her shoulder pain increases when she raises her left arm Related Data Home Medications ?Medication ?Instructions ?Recorded ?Confirmed escitalopram oxalate 10 mg tablet mg 09/21/23 hyoscyamine sulfate 0.375 mg mg PO 09/21/23 tablet,extended release,12 hr meloxicam 15 mg tablet mg 09/21/23 gabapentin 100 mg capsule mg 10/03/23 methocarbamol 500 mg tablet 500 mg PO TID 10/03/23 10/03/23 Previous Rx's ?Medication ?Instructions ?Recorded prednisone 20 mg tablet 40 mg (2 x 20 mg) PO DAILY 5 days 09/21/23 #10 tabs tizanidine 4 mg capsule 4 mg PO TID PRN muscle spasticity 09/21/23 7 days #21 caps tobramycin 0.3 % eye drops 2 drp ophthalmic (eye) Q4H #5 mL 07/07/24 Allergies Allergy/AdvReac Type Severity Reaction Status Date / Time No Known Drug Allergies Allergy Verified 07/07/24 11:04 Review of Systems ROS Status of ROS 10 or more systems reviewed and unremarkable except as noted in history and below PFSH PFS Social History Smoking status: Former smoker Little interest or pleasure in doing things: not at all Feeling down, depressed, or hopeless: not at all Exam Constitutional Vital Signs, click to edit/add: Last Vital Signs Temp 99.4 F 12/02/24 20:13 Pulse 72 12/02/24 20:13 Resp 18 12/02/24 20:13 BP 135/78 12/02/24 20:13 Pulse Ox 100 12/02/24 20:13 O2 Del Method Room Air 12/02/24 20:13 Common normals: no apparent distress, average body habitus, oriented x3, no limitations, healthy appearing, alert and well nourished [facility] Common normals: normocephalic and head/scalp atraumatic Eye Common normals: PERRL, EOMs intact bilaterally and conjunctivae normal Respiratory Common normals: normal respiratory effort, no retractions, no use of accessory muscles and clear to auscultation bilaterally Cardio Common normals: regular rate, regular rhythm, S1 normal heart sound and S2 normal heart sound Extremity Other: left shoulder pain increases even with passive ROM Neuro Common normals: oriented x3, CN's II-XII intact bilaterally, moves all extremities and no focal motor deficits Psych Appearance: grossly normal Course Vital Signs Vital signs: Vital Signs Temperature 99.4 F 12/02/24 20:13 Pulse Rate 72 12/02/24 20:13 Respiratory Rate 18 12/02/24 20:13 Blood Pressure 135/78 12/02/24 20:13 Pulse Oximetry 100 12/02/24 20:13 Oxygen Delivery Method Room Air 12/02/24 20:13 Temperature 99.4 F 12/02/24 20:13 Pulse Rate 72 12/02/24 20:13 Respiratory Rate 18 12/02/24 20:13 Blood Pressure 135/78 12/02/24 20:13 Pulse Oximetry 100 12/02/24 20:13 Oxygen Delivery Method Room Air 12/02/24 20:13 MDM - Chest Pain MDM Narrative Medical decision making narrative: cardiac score 2. presents with 2 hours of left sided chest pain. Pain increases with deep breath. Also pain left neck and shoulder. Shoulder is tender and patient resist ROM of the shoulder due to increasing pain. No dyspnea. d-dimer neg and first troponin neg. EKG NSR No acute findings. No ST T wave deviations. Patient informed that clinically she does not appear to be having an acute coronary event. Will plan repeat troponin and re assess repeat troponin is neg. Patent informed that clinically this is noncardiac pain and acute shoulder arthralgia pain. Feeling better after treatment in the department and discharged home to follow up with her doctor Lab Data Labs: Lab Results 12/02/24 12/02/24 Range/Units 20:20 22:50 WBC 5.1 (4.0-11.0) 10^3/uL RBC 4.36 (4.20-5.40) 10^6/uL Hgb 12.8 (12.0-16.0) g/dL Hct 38.5 (36.0-48.0) % MCV 88.3 (81.0-99.0) fL MCH 29.4 (26.7-34.0) pg MCHC 33.2 (29.9-35.2) g/dL RDW 12.8 (11.0-15.0) % Plt Count 249 (150-450) 10^3/uL MPV 9.1 L (9.5-13.5) fL Neut % (Auto) 46.6 (43.0-75.0) % Lymph % (Auto) 36.9 (20.5-60.0) % [place] % (Auto) 9.8 (1.7-12.0) % Eos % (Auto) 5.9 (0.9-7.0) % Baso % (Auto) 0.6 (0.2-2.0) % Neut # (Auto) 2.4 (1.4-6.5) 10^3/uL Lymph # (Auto) 1.9 (1.2-3.8) 10^3/uL [place] # (Auto) 0.5 (0.3-0.8) 10^3/uL Eos # (Auto) 0.3 (0.0-0.7) 10^3/uL Baso # (Auto) 0.0 (0.0-0.1) 10^3/uL Abs Immat Gran (auto) 0.01 (0.00-0.03) 10^3/uL Imm/Tot Granulo (auto) 0.2 (0.0-0.5) % D-Dimer 0.26 (<=0.59) mg/L FEU Sodium 139 (136-145) mmol/L Potassium 3.0 L (3.5-5.1) mmol/L Chloride 104 (98-107) mmol/L Carbon Dioxide 29.3 (21.0-32.0) mmol/L Anion Gap 8.7 BUN 17.0 (7.0-18.0) mg/dL Creatinine 0.85 (0.55-1.02) mg/dL Est GFR ( Amer) >60 (>=60 mL/min/1.73m^2) Est GFR (Non-Af Amer) >60 (>=60 mL/min/1.73m^2) BUN/Creatinine Ratio 20.0 Glucose 76 (74-106) mg/dL Calcium 9.0 (8.5-10.1) mg/dL Troponin I High Sens 4.7 5.1 (4.0-51.3) pg/mL Discharge Plan Discharge Chief Complaint: Chest Pain Clinical Impression: Atypical chest pain, Arthralgia of shoulder region, left Patient Disposition: Home, Self-Care Prescriptions / Home Meds: No Action tobramycin 0.3 % drops 2 drp ophthalmic (eye) Q4H Qty: 5 0RF Rx Instructions: bilateral for 5 fays meloxicam 15 mg tablet hyoscyamine sulfate 0.375 mg tablet extended release 12 hr PO escitalopram oxalate 10 mg tablet tizanidine 4 mg capsule 4 mg PO TID PRN (Reason: muscle spasticity) 7 Days Qty: 21 0RF prednisone 20 mg tablet 40 mg PO DAILY 5 Days Qty: 10 0RF methocarbamol 500 mg tablet 500 mg PO TID gabapentin 100 mg capsule Print Language: Australian Instructions: Arthralgia (ED), Noncardiac Chest Pain (ED) Additional Instructions: follow up with your doctor in the next couple of days for recheck Referrals: YULIANA CREWS [Primary Care Provider, Family Practice] - 1 week
--- NOTE | 2024-12-02 20:34 | XR_ITS ---
[facility] [place] [id number] Patient Name: NEEL SAMSON MRN: [id number] date: 1980 Sex: F Assigned Patient Location: ER Current Patient Location: ER Accession/Order Number: [id number] Exam Date: 12/02/2024 21:25 Report Date: 12/02/2024 21:25 At the request of: OMARI TAYLOR MD Procedure: XR chest 1V Plain film chest Single view HISTORY: Chest pain COMPARISON: 10/12/2022 FINDINGS: SUPPORT DEVICES: None POSTSURGICAL CHANGES: None HEART: Within normal limits PULMONARY PETTY: Within normal limits MEDIASTINUM: Unremarkable LUNGS AND PLEURA: No acute lung process, pleural effusion or pneumothorax identified. BONY STRUCTURES: Intact ADDITIONAL FINDINGS None XR/XR chest 1V IMPRESSION: No acute process. Impression dictated by: Zaheer Sewell M.D. 12/02/2024 9:25 PM Dictation Location: [place] [address] Electronically authenticated by: [id number] Y Date: 12/02/2024 21:25
[2024-12-02 20:42] LABS: Hematocrit 38.5 % (36.0-48.0); Hemoglobin 12.8 g/dL (12.0-16.0); Immature Granulocytes Abs Auto 0.01 10^3/uL (0.00-0.03); Immature Granulocytes Pct Auto 0.2 % (0.0-0.5); Lymphocytes Absolute Auto 1.9 10^3/uL (1.2-3.8); Mean Corpuscular HGB Conc 33.2 g/dL (29.9-35.2); Mean Corpuscular Hemoglobin 29.4 pg (26.7-34.0); Mean Corpuscular Volume 88.3 fL (81.0-99.0); Platelet Count 249 10^3/uL (150-450); Red Blood Count 4.36 10^6/uL (4.20-5.40); White Blood Count 5.1 10^3/uL (4.0-11.0)
[2024-12-02 21:03] LABS: Anion Gap 8.7; Blood Urea Nitrogen 17.0 mg/dL (7.0-18.0); Calcium 9.0 mg/dL (8.5-10.1); Carbon Dioxide 29.3 mmol/L (21.0-32.0); Chloride 104 mmol/L (98-107); Estimated GFR (African America >60 (>=60 mL/min/1.73m^2); Estimated GFR (Non-African Ame >60 (>=60 mL/min/1.73m^2); Glucose 76 mg/dL (74-106); Potassium 3.0 mmol/L (3.5-5.1); Sodium 139 mmol/L (136-145)
[2024-12-02] MEDS: POTASSIUM CHLORIDE 10 MEQ ER TABLET 40 MEQ PO (21:27)
--- NOTE | 2024-12-02 21:30 | PC.NURSE ---
pt medicated per physician order
[2024-12-02] MEDS: METHYLPREDNISOLONE SOD SUCC PF 125 MG/2 ML VIAL IVP (23:30)
[2024-12-02] MEDS: KETOROLAC TROMETHAMINE 30 MG/ML VIAL IVP (23:30)
[2024-12-03 00:08] VITALS: BP 142/76; PULSE 78; O2SAT 100
== END 2024-12-03 00:15 | disposition home or self-care (01) ==
PROVIDERS: Emergency Provider Internal Medicine; PCP Family Medicine
DX: R07.89 Other chest pain (principal); M25.512 Pain in left shoulder
CPT/HCPCS: 36415; 71045; 80048; 84484; 85025; 85378; 93005; 96374; 96375; 99285; J1885; J2919

== ENCOUNTER 2025-03-04 12:26 | Emergency (ER) | payer OTHER, SELFPAY ==
--- OUTSIDE RECORDS SUMMARY | 2023-09-27 04:40 | XMS_ITS ---
Author Organization [facility] Address [address] [place] [address] Care Team Providers Care Network Planner Name Role Phone PCP, NO Primary Care Provider Unavailabl e Self, Referral Unavailable Unavailable xxJamia Bernstein Unavailable Allergies No Known Allergies Reason For Referral Reason NO AUTH REQ......... ............NOT SCHEDULED.........................[facility] REFERRAL FOR BUE EMG TO BE DONE IN [place] Diagnosis 1 Lumbar back pain (M5 4.50) Referral Organization [facility] Referring Provider First Name Michael Referring Provider Last Name [facility] Referring Provider Speciality Orthopedic Surgery Referred Organization [facility] Referred Address [address] [place] [address], Procedure 1 EMG 2 EXTREMITIES (9 6932) Procedure 2 Nerve conduction kang dies; 1 -2 studies (45544) General Notes Rachel Gloria 2023 01:22:20 PM >, Magalie Escobedo 09/27/2023 01:23:53 PM > GARY ACTIVE FOR SEPTEMBER PER [facility] PROVIDER PORTAL. NO AUTHORIZATION REQUIRED. FAXED TO [facility].Faizan Dawn 10/03/2023 02:25:25 PM >EMG FAXED TO [facility] AND MRI FAXED TO [facility] TO SCHEDULE Referral Priority Routine Reason APPROVED............ .................NOT SCHEDULED........................[facility] CERVICAL TO BE DONE AT [facility] Diagnosis 1 Lumbar back pain (M5 4.50) Diagnosis 2 Cervical myelopathy (G95.9) Diagnosis 3 Cervical radiculopat hy (M54.12) Referral Organization [facility] Referring Provider First Name Michael Referring Provider Last Name Josefa Referring Provider Speciality Orthopedic Surgery Referred Organization [facility] krystal Referred Address [place], [place], Procedure 1 MRI Cervical w/o dye (42183) General Notes Rachel Gloria 2023 07:59:15 AM >, Magalie Escobedo 10/02/2023 10:03:47 AM > WAITING ON 09/27/23 OFFICE NOTE, Magalie Escobedo 10/08/2023 08:59:23 AM > I HAD TO CALL [facility] TO SUBMIT CASE PATIENT WOULDN'T PULL UP ON PROVIDER PORTAL, SPOKE WITH BRIJESH, TRACKING # [id number] PENDING ELIGIBILITY REVIEW. CLINICALS UPLOADED VIA [facility] PROVIDER PORTAL., Magalie Escobedo 10/09/2023 03:03:56 PM > AUTHORIZATION # [id number] APPROVED AND VALID 10/08/23-11/07/23 PER [facility]. SCANNED INTO CHART AND FAXED TO [facility]., Rachel Gloria 10/15/2023 08:14:00 AM >FAXED Referral Priority Routine REASON FOR VISIT Neck pain, left shoulder pain Medications Medication SIG (Take, Route, Frequency, Duration) Notes Start Date End Date Status escitalopram ActivemeloxicamActivehyoscyamineActivemethocarbamol 500 mg1 TAB orally 3 times daily prn; Duration: 5 days/ctiveIBU 800 mg1 tab(s) orally 3 times a day prn pain; Duration: 15 days09/27/2023ctivegabapentin 100 mg1 cap(s) orally 3 times a day; Duration: 30 day(s)09/27/2023ctivetopiramateActive HYDROcodoneActivetiZANidineActivePrednisoneActive Social History Tobacco Use: Social History Observation Description Date Details (start date - stop date) Current some da y smoker NA - NA AUDIT-C (Standard) Question Answer Notes Did you have a drink containing alcohol in the p ast year? Yes How often did you have six or more drinks on one occasion in the past year? Declined to specify (0 point)How many drinks did you have on a typical day when you were drinking in the past year?1 or 2 drinks (0 point)How often did you have a drink containing alcohol in the past year?Declined to specify (0 point)Points0 InterpretationNegativeTobacco Control (Standard) Question Answer Notes Tobacco use: Current some day smoker Problems Problem Type SNOMED Code ICD Code Onset Dates Problem Status W/U Status Risk Notes Problem Cervical myelopathy (492701545) Cervical myelopathy (G95.9) ActiveconfirmedProblemDegeneration of cervical intervertebral disc (38866649) Other cervical disc degeneration at C4-C5 level (M50.321)ActiveconfirmedProblem Degeneration of cervical intervertebral disc (51962347)Other cervical disc degeneration at C5-C6 level (M50.322)ActiveconfirmedProblemDegeneration of cervical intervertebral disc (87461248)Other cervical disc degeneration at C6-C7 level (M50.323)ActiveconfirmedProblemSpinal stenosis in cervical region (59295447)Spinal stenosis, cervical region (M48.02)ActiveconfirmedProblem Cervical radiculopathy (18022469)Radiculopathy, cervical region (M54.12)Active confirmed Encounters Encounter Location Date Provider Diagnosis [address] [place] [address] 09/27/2023 [facility] Other cervical disc degeneration at C4-C5 level M50.321 ; Other cervical disc degeneration at C5-C6 level M50.322 ; Other cervical disc degeneration at C6-C7 level M50.323 ; Spinal stenosis, cervical region M48.02 ; Cervical myelopathy G95.9 and Radiculopathy, cervical region M54.12 Assessments Encounter Date Diagnosis (ICD Code) Assessment Notes Treatment Notes Treatment Clinical Notes Section Notes 09/27/2023 Other cervical disc degeneration at C4-C5 level (ICD-10 - M50.321) 1. C4-7 degenerative disc disease, NFS 2. Cervical myelopathy 3. Cervical radiculopathy 09/27/2023Other cervical disc degeneration at C5-C6 level (ICD-10 - M50.322) 1. C4-7 degenerative disc disease, NFS 2. Cervical myelopathy 3. Cervical radiculopathy 09/27/2023Other cervical disc degeneration at C6-C7 level (ICD-10 - M50.323) 1. C4-7 degenerative disc disease, NFS 2. Cervical myelopathy 3. Cervical radiculopathy 09/27/2023Spinal stenosis, cervical region (ICD-10 - M48.02) 1. C4-7 degenerative disc disease, NFS 2. Cervical myelopathy 3. Cervical radiculopathy 4Cervical myelopathy (ICD-10 - G95.9) 1. C4-7 degenerative disc disease, NFS 2. Cervical myelopathy 3. Cervical radiculopathy 4Radiculopathy, cervical region (ICD-10 - M54.12) 1. C4-7 degenerative disc disease, NFS 2. Cervical myelopathy 3. Cervical radiculopathy 09/27/2023Other Plan established by Dr. Lagunas. Patient seen and evaluated today by Dr. Lagunas. Given patient's extreme pain in her neck radiating to her left arm with diffuse weakness to the extremity we willget an EMG of the bilateral upper extremities and an MRI of the cervical spine. I encouraged her todiscontinue use of her sling and attempt range of motion of her shoulder as tolerated by pain. I will give her a work note to return to work with no use of the left arm. For pain control I have prescribed ibuprofen 800 mg 3 times daily as needed, Robaxin 500 mg 3 times daily, and gabapentin 100 mg 3 times daily. The patient is very much in agreement with the treatment and/or diagnostic plan set forth and all questions were answered to the patient's satisfaction. Thanks once again. If we can be of further service to your patients with disorders of the spine, cervical, thoracic, or lumbar, please do not hesitate to contact Dr. Lagunas. Best regards, Electronic Prior Authorization was requested for Gabapentin 100 mg capsule. Provider can order medication once approval received. 1. C4-7 degenerative disc disease, NFS 2. Cervical myelopathy 3. Cervical radiculopathy Plan Of Treatment Medication Medication Name Sig Start Date Stop Date Notes methocarbamol 500 mg 1 TAB orally 3 time s daily prn; Duration: 5 days 09/27/2023 10/02/2023 IBU 800 mg1 tab(s) orally 3 times a day prn pain; Duration: 15 days09/27/2023 gabapentin 100 mg1 cap(s) orally 3 times a day; Duration: 30 day(s)09/27/2023 Treatment Notes Assessment Notes Other Plan established by Dr. Lagunas. Patient seen and evaluated today by Dr. Lagunas. Given patient's extreme pain in her neck radiating to her left arm with diffuse weakness to the extremity we will get an EMG of the bilateral upper extremities and an MRI of the cervical spine. I encouraged her to discontinue use of her sling and attempt range of motion of her shoulder as tolerated by pain. I will give her a work note to return to work with no use of the left arm. For pain control I have prescribed ibuprofen 800 mg 3 times daily as needed, Robaxin 500 mg 3 times daily, and gabapentin 100 mg 3 times daily. The patient is very much in agreement with the treatment and/or diagnostic plan set forth and all questions were answered to the patient's satisfaction. Thanks once again. If we can be of further service to your patients with disorders of the spine, cervical, thoracic, or lumbar, please do not hesitate to contact Dr. Lagunas. Best regards, Electronic Prior Authorization was requested for Gabapentin 100 mg capsule. Provider can order medication once approval received. Pending Test Test Name Order Date Cervical spine,ap,lat,flex,ext - 81837 0 09/27/2023 MRI : Cervical Spine W/O Contrast - 7214 1 09/27/2023 Referrals Referral Date Details 09/27/2023 09/27/2023, NO AUTH REQ.....................NOT SCHEDULED.........................[facility]FERRAL FOR BUE EMG TO BE DONE IN [place], [id number], [place], [address], 10/02/2023 10/02/2023, APPROVED .............................NOT SCHEDULED........................[facility] MRI CERVICAL TO BE DONE AT [facility], [place], [place] Next Appt Details Follow Up: after imaging, Re ason: Progress Notes * SAMSONKELLY BANKSMELANIE DDOB: [birth year] (44 yo F)Acc No.[id number]:09/27/2023 Patient:?KELLY SAMSONMELANIE Kimberly :?Jamia Bernstein PADOB:1980???Age:43 Y???Sex:FemaleDate:09/27/2023hone:[phone]:[address], [id number]:NO PCP Subjective: * Chief Complaints: * 1 . Neck pain, left shoulder pain. * HPI: ???General Follow Up Information:? Dictated by Jamia Bernstein PA-C 43-year-old female with a PMH of seizures presents to the office with complaints of neck pain sinceapproximately 2021 when she fell in the shower and hit her neck on the edge of the tub. More recently she has also had severe left shoulder pain that radiates all the way down to her fingers with numbness and tingling. The patient also describes some tingling down her right arm to her fingertips as well. She states that she has been dropping things and also having balance issues. She presents today with a sling to her left shoulder that she has been wearing at work. She works at the [employer]. She did present to the [facility] ED on 09/20 with the same complaints and she is here today for follow-up from this visit. She has tried NSAIDs, muscle relaxants, and narcotic pain medications that give her minimal to no relief. She has a VAS score of 7/10. She is a current smoker. ???General Info per Patient Report:?Side affected is?Left.?Joint or body part affected is Neck, Upper back, Arm, Lower back, Leg?.?Date of Injury:?2021.?Start of Pain/Cause of Injury?a while off and on?.?Pain occurred?Fall in bathroom in shower.? Had a seizure and can't really remember everything but body was very sore and family said hit tub when fell.?.?Work related:?No, missed 2 days of work at current job and Lot at others?.?Motor vehicle accident:?No.?Third alliance party responsibility:?No.?Type of pain:?I feel pain in my neckl and arm i could barely move my left arm and my back hurts but my neck is in so much pain going down my back I could hardly walk?.?Which of the following treatments have you tried??Muscle relaxants, Narcotic pain medications, hot packs, ice .?Have you been seen by a Dentist in the last year??Yes.?Do you have any dental prob lems??Yes, No bones in teeth, wasn't taking care of teeth properly?.? * ROS: ???Constitutional:?Appetite Change?Yes.?Difficulty Sleeping?Yes. Night Sweats?Yes.?Eyes:?Glasses/ Contacts?Yes.?Change in Vision?Yes. ?Teeth:?Gum Trouble?Yes.?Gastrointestinal:?Frequent Diarrhea?Yes.?Musculoskeletal:?Back Pain?Yes.?Admits?Neck Pain.?Muscle Pain?Yes.?Respiratory:?no?Asthma.?Genitourinary:?Difficulty Starting to Urinate?Yes.?Unable to Completely Empty Bladder?Yes.?Neurological:?Headaches/Migraines?Yes.?Seizures/ Epilepsy?Yes. ?Psychiatric:?Anxiety?Yes.?Depression?Yes.? * Medical History: A sthma, Stomach ulcers, Irritable bowel syndrome, Seizures, Rheumatoid arthritis, Anxiety, Depression, Sleep apnea. * Family History: N o Family History documented.. * Social History: E xercise regularly D o you exercise? Y es, H ow many times per week? 3 times, H ow long do you exercise? 1 5 min. D o you live W ith whom do you live? S pouse and children. W hat is your place of residence? W here do you live? P rivate home. Working status W hat is your working status [employer]. M arital status M arital Status M arried. A SABAS-C (Standard) D id you have a drink containing alcohol in the past year? Y es, H ow often did you have six or more drinks on one occasion in the past year? D eclined to specify (0 point), H ow many drinks did you have on a typical day when you were drinking in the past year? 1 or 2 drinks (0 point), H ow often did you have a drink containing alcohol in the past year? D eclined to specify (0 point), P oints 0 , I nterpretation N egative. T obacco Control (Standard) T obacco use: C urrent some day smoker. * Medications: T aking Prednisone , Taking topiramate , Taking HYDROcodone , Taking tiZANidine , Taking hyoscyamine , Taking escitalopram , Taking meloxicam , Medication List reviewed and reconciled with the patient * Allergies: N .K.D.A. Objective: * Vitals: * Examination: ???General examination: ???On examination, the patient is well-developed, well-nourished, well-groomed, alert and oriented x3, normal mood. Walks with steady gait but cannot tandem walk. Limited cervical ROM.Midline tender over the cervical spine, left trapezius, left shoulder. 5/5 muscle strength right upper extremity, 3/5 strength left upper extremity. Painful ROM of left shoulder in flexion and lacks the last 30 degrees secondary to pain. Sensory intact to right upper extremity, decreased sensation to entirety of left arm to fingers. ???X-ray Imaging Studies: ???4 views of the cervical spine were taken in office today and reviewed interpretedby myself as negative for fracture or malalignment. Anterior inferior osteophytes noted to vertebral bodies of C3-5. Multilevel degenerative disc disease worse at C4-5 and C5-6. . ???MRI Imaging Studies: ? Assessment: * Assessment: 1.?Other cervical disc degeneration at C4-C5 level - M50.321 (Primary)???2.&#160 ;Other cervical disc degeneration at C5-C6 level - M50.322???3.?Other cervical d isc degeneration at C6-C7 level - M50.323???4.?Spinal stenosis, cervical region- M48.02???5.?Cervical myelopathy - G95.9???6.?Radiculopathy, cervical region - M54.12???1. C4-7 degenerative disc disease, NFS 2. Cervical myelopathy 3. Cervical radiculopathy. Plan: * Treatment: ? Referral To: ?Reason:APPROVED.............................NOT SCHEDULED........................[facility] MRI CERVICAL TO BE DONE AT [facility] 2.?Others? Start methocarbamol tablet, 500 mg, 1 TAB, orally, 3 times daily prn, 5 days, 40;?Start IBU tablet, 800 mg, 1 tab(s), orally, 3 times a day prn pain, 15 days, 30;?Start gabapentin capsule, 100 mg, 1 cap(s), orally, 3 times a day, 30 day(s), 90.?Imaging: Cervical spine,ap,lat,flex,ext - 26397 ?Imaging: MRI : Cervical Spine W/O Contrast - 38885 Notes: Plan established by Dr. Lagunas. Patient seen and evaluated today by Dr. Lagunas. Given patient's extreme pain in her neck radiating to her left arm with diffuse weakness to the extremity we will get an EMG of the bilateral upper extremities and an MRI of the cervical spine. I encouragedher to discontinue use of her sling and attempt range of motion of her shoulder as tolerated by pain. I will give her a work note to return to work with no use of the left arm. For pain control I have prescribed ibuprofen 800 mg 3 times daily as needed, Robaxin 500 mg 3 times daily, and gabapentin 100 mg 3 times daily. The patient is very much in agreement with the treatment and/or diagnostic plan set forth and all questions were answered to the patient's satisfaction. Thanks once again. If we can be of further service to your patients with disorders of the spine, cervical, thoracic, or lumbar, please do not hesitate to contact Dr. Lagunas. Best regards, Electronic Prior Authorization was requested for Gabapentin 100 mg capsule. Provider can order medication once approval received.? Referral To: ?Reason:NO AUTH REQ.....................NOT SCHEDULED.........................[facility]FERRAL FOR BUE EMG TO BE DONE IN [place] ? Referral To: ?Reason:APPROVED.............................NOT SCHEDULED........................[facility] MRI CERVICAL TO BE DONE AT [facility] * Procedure Codes: 9 9204 Office Visit, New Pt., Level 4 UD, Modifiers: UD * Follow Up: a fter imaging Forms: * Images: * Electronic signature of Jamia Valentin PA-C on 03/04/2025 at 01:23 PM ESTSign off status: Pending * Provider: TYREE Kwong Date: 0 09/27/2023 Generated for Printing/Faxing/eTransmitting on:?03/04/2025 01:23 PM EST History and Physical Notes * HPI (History of Present Illness) CategorySub-CategoryDetailNotesCategory NotesGeneral Follow Up Information Dictated by Jamia Bernstein PA-C 43-year-old female with a PMH of seizures presents to the office with complaints of neck pain sinceapproximately 2021 when she fell in the shower and hit her neck on the edge of the tub. More recently she has also had severe left shoulder pain that radiates all the way down to her fingers with numbness and tingling. The patient also describes some tingling down her right arm to her fingertips as well. She states that she has been dropping things and also having balance issues. She presents today with a sling to her left shoulder that she has been wearing at work. She works at the [employer]. She did present to the [facility] ED on 09/20 with the same complaints and she is here today for follow-up from this visit. She has tried NSAIDs, muscle relaxants, and narcotic pain medications that give her minimal to no relief. She has a VAS score of 7/10. She is a current smoker. General Info per Patient ReportSide affected isLeftJoint or body part affected isNeck, Upper back, Arm, Lower back, LegPain occurredFall in bathroom in shower. Had a seizure and can't really remember everything but body was very sore and family said hit tub when fell.Work related:No, missed 2 days of work at current job and Lot at othersMotor vehicle accident:NoType of pain:I feel pain in my neckl and arm i could barely move my left arm and my back hurts but my neck is inso much pain going down my back I could hardly walkDate of Injury:tart of Pain/Cause of Injurya while off and onThird alliance party responsibility:NoWhich of the following treatments have you tried?Muscle relaxants, Narcotic pain medications, hot packs, iceHave you been seen by a Dentist in the last year?YesDo you have any dental problems?Yes, No bones in teeth, wasn't taking care of teeth properly Examination CategorySub-CategoryDetailNotesCategory NotesGeneral examinationOn examination, the patient is well-developed, well-nourished, well-groomed, alert and oriented x3,normal mood. Walks with steady gait but cannot tandem walk. Limited cervical ROM. Midline tender over the cervical spine, left trapezius, left shoulder. 5/5 muscle strength right upper extremity, 3/5strength left upper extremity. Painful ROM of left shoulder in flexion and lacks the last 30 degrees secondary to pain. Sensory intact to right upper extremity, decreased sensation to entirety of left arm to fingers.X-ray Imaging Studies 4 views of the cervical spine were taken in office today and reviewed interpreted by myself as negative for fracture or malalignment. Anterior inferior osteophytes noted to vertebral bodies of C3-5. Multilevel degenerative disc disease worse at C4-5 and C5-6. MRI Imaging Studies Consultation Request Notes Referral Date Referring Provider Referred Provider Not es 09/27/2023 Michael Rivero , NO AUTH REQ.....................NOT SCHEDULED......................... [facility] REFERRAL FOR BUE EMG TO BE DONE IN [place] 10/02/2023 Michael Rivero , APPROVED... ....................... ...NOT SCHEDULED........................[facility] MRI CERVICAL TO BE DONE AT [facility]
--- OUTSIDE RECORDS SUMMARY | 2024-02-07 06:00 | XMS_ITS ---
Author Organization [facility] Address [address] [place] [address] Care Team Providers Care Health Information Technologist Name Role Phone PCP, NO Primary Care Provider Unavailabl e Self, Referral Unavailable Unavailable Michael Rivero Unavailable [phone] REASON FOR VISIT C4-6 ACDF, TBH, 02/06 Encounters Encounter Location Date Provider Diagnosis [facility] [address] [place] [address] 02/07/2024 Michael Rivero Plan Of Treatment No Information Progress Notes * NEEL SAMSON DDOB: [birth year] (44 yo F)Acc No.[id number]:02/07/2024 Patient:?NEEL SAMSON :?Michael Lagunas MD, PhDDOB:1980 ???Age:43 Y???Sex:FemaleDate:02/07/2024hone:[phone]:[address], [id number]:NO PCP * Images: * Electronic signature of Michael Rivero MD, PHD on 03/04/2025 at 01:23 PM EST Sign off status: Pending * Provider: Jonas Lagunas MD, PhD Date: Generated for Printing/Faxing/eTransmitting on:?03/04/2025 01:23 PM EST
[2025-03-04 12:43] VITALS: BP 120/81; PULSE 68; TEMP 37; O2SAT 100; BMI 29.0
--- NOTE | 2025-03-04 13:20 | ED.NAVMDI1 ---
HPI - Nausea/Vomiting/Diarrhea General Chief complaint: Nausea/Vomiting/Diarrhea Stated complaint: DIARRHEA VOMITING Time Seen by Provider: 03/04/25 13:14 Source: patient Mode of arrival: walk-in Limitations: no limitations History of Present Illness HPI Narrative: 44 year old female presents to the ED for N/V/D, body aches, fatigue. Onset was 3-4 days ago. Denies fever, chills, abd pain, cough, congestion, urinary symptoms. Reports hx IBS. Related Data Home Medications ?Medication ?Instructions ?Recorded ?Confirmed escitalopram oxalate 10 mg tablet 10 mg PO DAILY 09/21/23 03/04/25 meloxicam 15 mg tablet 15 mg PO DAILY 09/21/23 03/04/25 topiramate 100 mg tablet 100 mg PO Q12H 03/04/25 03/04/25 Previous Rx's ?Medication ?Instructions ?Recorded tizanidine 4 mg capsule 4 mg PO TID PRN muscle spasticity 09/21/23 7 days #21 caps ondansetron 4 mg disintegrating 4 mg PO Q8H PRN nausea and 03/04/25 tablet vomiting 3 days #9 tabs Allergies Allergy/AdvReac Type Severity Reaction Status Date / Time No Known Drug Allergies Allergy Verified 03/04/25 12:43 Review of Systems ROS Constitutional Denies: fever or chills Ears, nose, mouth, and throat Denies: throat pain or neck pain Cardiovascular Denies: chest pain Respiratory Denies: shortness of breath or cough Gastrointestinal Reports: nausea, vomiting and diarrhea; Denies: abdominal pain Genitourinary Denies: painful urination, urinary frequency, urinary urgency or blood in urine Musculoskeletal Denies: back pain Neurological Denies: headache PFSH PFSH Social History Smoking status: Former smoker Little interest or pleasure in doing things: not at all Feeling down, depressed, or hopeless: not at all Exam Constitutional Vital Signs, click to edit/add: Last Vital Signs Temp 98.6 F 03/04/25 12:43 Pulse 66 03/04/25 15:08 Resp 18 03/04/25 15:08 BP 135/77 03/04/25 15:08 Pulse Ox 98 03/04/25 15:08 O2 Del Method Room Air 03/04/25 15:08 Common normals: no apparent distress and oriented x3 General appearance: cooperative HENMT Common normals: moist oral mucous membranes and oropharynx normal Eye Common normals: conjunctivae normal and no scleral icterus Neck & C-Spine Common normals: supple Chest Chest: symmetrical chest wall rise Respiratory Common normals: normal respiratory effort Effort & inspection: able to speak in complete sentences and symmetric chest movement Cardio Common normals: regular rate and regular rhythm GI Common normals: Normal to inspection, nondistended, normoactive bowel sounds present, soft to palpation and non-tender Neuro Common normals: oriented x3 and moves all extremities Sensorium/orientation: awake and alert Course Vital Signs Vital signs: Vital Signs Temperature 98.6 F 03/04/25 12:43 Pulse Rate 68 03/04/25 12:43 Respiratory Rate 18 03/04/25 12:43 Blood Pressure 120/81 03/04/25 12:43 Pulse Oximetry 100 03/04/25 12:43 Oxygen Delivery Method Room Air 03/04/25 12:43 Temperature 98.6 F 03/04/25 12:43 Pulse Rate 66 03/04/25 15:08 Respiratory Rate 18 03/04/25 15:08 Blood Pressure 135/77 03/04/25 15:08 Pulse Oximetry 98 03/04/25 15:08 Oxygen Delivery Method Room Air 03/04/25 15:08 MDM - Nausea/Vomiting/Diarrhea MDM Narrative Medical decision making narrative: She was given IV fluids and IV Zofran with improvement. She was unable to provide a stool specimen here today. She reported she was feeling better. A prescription was provided for Zofran. Potassium was 3.3 which was discussed. Follow up with pcp for a recheck, further evaluation and treatment. Differential Diagnosis Differential diagnosis: Likely food poisoning, gastroenteritis and dehydration Medical Records Attestation: I reviewed the patient's medical records. Lab Data Attestation: I reviewed the patient's lab results. Labs: Lab Results 03/04/25 Range/Units 13:34 WBC 3.7 L (4.0-11.0) 10^3/uL RBC 4.44 (4.20-5.40) 10^6/uL Hgb 13.2 (12.0-16.0) g/dL Hct 39.3 (36.0-48.0) % MCV 88.5 (81.0-99.0) fL MCH 29.7 (26.7-34.0) pg MCHC 33.6 (29.9-35.2) g/dL RDW 12.3 (11.0-15.0) % Plt Count 215 (150-450) 10^3/uL MPV 9.4 L (9.5-13.5) fL Neut % (Auto) 51.7 (43.0-75.0) % Lymph % (Auto) 34.2 (20.5-60.0) % [place] % (Auto) 8.7 (1.7-12.0) % Eos % (Auto) 4.6 (0.9-7.0) % Baso % (Auto) 0.5 (0.2-2.0) % Neut # (Auto) 1.9 (1.4-6.5) 10^3/uL Lymph # (Auto) 1.3 (1.2-3.8) 10^3/uL [place] # (Auto) 0.3 (0.3-0.8) 10^3/uL Eos # (Auto) 0.2 (0.0-0.7) 10^3/uL Baso # (Auto) 0.0 (0.0-0.1) 10^3/uL Abs Immat Gran (auto) 0.01 (0.00-0.03) 10^3/uL Imm/Tot Granulo (auto) 0.3 (0.0-0.5) % Sodium 139 (136-145) mmol/L Potassium 3.3 L (3.5-5.1) mmol/L Chloride 104 (98-107) mmol/L Carbon Dioxide 28.0 (21.0-32.0) mmol/L Anion Gap 10.3 BUN 7.0 (7.0-18.0) mg/dL Creatinine 0.78 (0.55-1.02) mg/dL Est GFR ( Amer) >60 (>=60 mL/min/1.73m^2) Est GFR (Non-Af Amer) >60 (>=60 mL/min/1.73m^2) BUN/Creatinine Ratio 9.0 Glucose 94 (74-106) mg/dL Calcium 8.4 L (8.5-10.1) mg/dL Total Bilirubin 0.8 (0.2-1.0) mg/dL AST 11 L (15-37) U/L ALT 23 (14-59) U/L Alkaline Phosphatase 63 (46-116) U/L Total Protein 7.0 (6.4-8.2) g/dL Albumin 3.7 (3.4-5.0) g/dL Globulin 3.3 g/dL Albumin/Globulin Ratio 1.1 Discharge Plan Discharge Chief Complaint: Nausea/Vomiting/Diarrhea Clinical Impression: Nausea, vomiting, and diarrhea Patient Disposition: Home, Self-Care Time of Disposition Decision: 14:56 Condition: Good Mode of Transportation: Private Vehicle Prescriptions / Home Meds: New ondansetron 4 mg tablet,disintegrating 4 mg PO Q8H PRN (Reason: nausea and vomiting) 3 Days Qty: 9 0RF No Action meloxicam 15 mg tablet 15 mg PO DAILY escitalopram oxalate 10 mg tablet 10 mg PO DAILY tizanidine 4 mg capsule 4 mg PO TID PRN (Reason: muscle spasticity) 7 Days Qty: 21 0RF topiramate 100 mg tablet 100 mg PO Q12H Print Language: Bulgarian Instructions: Acute Nausea and Vomiting (ED), Acute Diarrhea (ED) Additional Instructions: Return to the ED for worsening symptoms. Referrals: YULIANA CREWS [Primary Care Provider, Family Practice] - 1 week Discharge Date/Time: 03/04/25 15:10
--- OUTSIDE RECORDS SUMMARY | 2025-03-04 13:24 | XMS_ITS | Patient Health Record ---
Author Organization [facility] [place] Address [address] [place] [address] Care Team Providers Care Database Manager Name Role Phone Blade De Leon DO Primary Care Provider Unavaila ble Allergies No Known Allergies Reason For Referral No Information Medications Medication SIG (Take, Route, Frequency, Duration) Notes Start Date End Date Status SUMAtriptan 5 MG/ACT 1 spray at onset of headache in one nostril may repeat dose after 2 hours as needed Nasally Once a day 08/20/2023ctiveTopamax 50 MG1 tablet Orally Once a day08/20/2023ctiveMeloxicam 15 MG1 tablet Orally Once a day; Duration: 30 day(s)08/20/2023ctive Social History Tobacco Use: Social History Observation Description Date Details (start date - stop date) Former Smoker NA - NA Tobacco Control (Standard) Question Answer Notes Tobacco use: Former smoker Problems Problem Type SNOMED Code ICD Code Onset Dates Problem Status W/U Status Risk Notes Problem Localized, primary o steoarthritis of the ankle and/or foot (965929712) Primary osteoarthritis, right ankle and foot (M19.071) ActiveconfirmedProblemCongenital deformity of foot (164176632)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
--- OUTSIDE RECORDS SUMMARY | 2025-03-04 13:24 | XMS_ITS | Patient Health Record ---
Author Organization [facility] Address [address] [place] [address] Care Team Providers Care Banking Center Manager Name Role Phone PCP, NO Primary Care Provider Unavailabl e Self, Referral Unavailable Unavailable Allergies No Known Allergies Reason For Referral No Information Medications Medication SIG (Take, Route, Frequency, Duration) Notes Start Date End Date Status topiramate ActivePrednisoneActivetiZANidineActiveHYDROcodoneActivemeloxicam 15 mg1 tab(s) orally once a day; Duration: ctiveibuprofen 800 mg1 tab(s) orally 3 times a day prn pain; Duration: 15 days10/09/2023ctivegabapentin 100 mg1 cap(s) orally 3 times a day; Duration: 30 day(s)09/27/2023ctiveIBU 800 mg1 tab(s) orally 3 times a day prn pain; Duration: 15 days09/27/2023ctivehyoscyamine ActivemeloxicamActiveescitalopramActive Social History Tobacco Use: Social History Observation [...] W/U Status Risk Notes Problem Cervical myelopathy (478862846) Cervical myelopathy (G95.9) ActiveconfirmedProblemCervical radiculopathy (93535226)Radiculopathy, cervical region (M54.12)ActiveconfirmedProblemSpinal stenosis in cervical region (52872366)Spinal stenosis, cervical region (M48.02)ActiveconfirmedProblemBenign neoplasm of spinal cord (08009934)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)Active confirmedProblemDegeneration of cervical intervertebral disc (45433792)Other cervical disc degeneration at C4-C5 level (M50.321)ActiveconfirmedProblem Degeneration of cervical intervertebral disc (13280941)Other cervical disc degeneration at C5-C6 level (M50.322)ActiveconfirmedProblemDegeneration of cervical intervertebral disc (86757281)Other cervical disc degeneration at C6-C7 level (M50.323)Activeconfirmed Plan Of Treatment Pending Test Test Name Order Date Cervical spine,ap,lat,flex,ext - [id number] 0 09/27/2023 MRI : Cervical Spine W/O Contrast - 7214 1 09/27/2023 Insurance Providers Payer Name Payer Address Payer Phone Subscriber Number Group Number Insured Name Patient Relationship to Insured Coverage Start Date Coverage End Date Medicaid [employer] [place] [address] [place] [address] [id number] Drake SAMSON - patient is the insured Medical (General) History Medical History History ICD Code Asthma Stomach ulcersIrritable bowel syndromeSeizuresRheumatoid arthritisAnxiety DepressionSleep apnea
--- OUTSIDE RECORDS SUMMARY | 2025-03-04 13:24 | XMS_ITS | Clinical Summary ---
Author Organization [facility] Address [id number] [address] [place] [address] Care Team Providers Care Product Ambassador Name Role Phone Blade De Leon DO Primary Care Provider [phone] Allergies No known active allergies Medications MedicationSigDispense QuantityRefillsLast FilledStart DateEnd DateStatus topiramate (TOPAMAX) 25 mg capsule Take by mouth.10/30/2022ctive vsxsrhwfk-mgrkid-v-Jessica-menthoL 800 mg-0.025 %- 25 %-6 % kit, liquid & tablet 1 tab(s) orally 3 times a day prn pain for 15 days10/09/2023ctive Encounters DateTypeDepartmentCare LzlsGwcpbdselik89/25/2025Telephone [facility] Lissa Erazo CMA Establish Carefrom Last 3 Months Social History Tobacco UseTypesPacks/DayYears UsedDateSmoking Tobacco: FormerSmokeless Tobacco: NeverAlcohol UseStandard Drinks/WeekCommentsYes0 (1 standard drink = 0.6 oz pure alcohol)occasionallyChildcareAnswerDate VlgjcmzcPcajdzynuAfodfen76/12/2019 EmploymentAnswerDate CmejzoifXjncbpmacbRzzphfs21/12/2019Hunger ScreeningAnswer Date RecordedWithin the past 12 months we worried whether our food would run out before we got money to buy more.Never True02/14/2024Within the past 12 months the food we bought just didn't last and we didn't have money to get more.Never True02/14/2024urpose - LifeAnswerDate RecordedPurpose and direction in life Szewpnl24/11/2021CommentsNoSex and Gender InformationValueDate Recorded Sex Assigned at BirthNot on fileLegal LyyPggcaw50/20/2017 3:37 PM ESTGender IdentityNot on fileSexual OrientationNot on file Last Filed Vital Signs Vital SignReadingTime TakenCommentsBlood Lvgpkmvu064/75005/31/2024 1:27 PM EST Ulssi539705/31/2024 1:27 PM YGOIwtzpistwwt48.1 ??C (98.7 ??F)05/31/2024 10:57 AM ESTRespiratory Fikv655705/31/2024 1:27 PM ESTOxygen Ghgytuzozv96%05/31/2024 1:27 PM ESTInhaled Oxygen Concentration--Aaodcp99.9 kg (185 lb)02/14/2024 10:47 PM OWPTqnngl750.2 cm (5' 7 )02/14/2024 10:47 PM EDTBody Mass Index28.9802/14/2024 10:47 PM EDT Plan of Treatment Health MaintenanceDue DateLast DoneCommentsDepression Imfqbfyvk36/30/1990 DTaP,Tdap and Td Vaccines (1 - Tdap)1997Influenza Fkxxpme2812/21/2024 03/13/2023, 09/07/2022, 12/04/2021, Additional history existsAdult BMI Screening Tobacco Uhsdywemo08 Medical Devices Not on file Insurance * Guarantor: Margaux Garcia TypeRelation to PatientDate of PhoneBilling AddressPersonal/LttfufPxfd1978 [facility] [place] [address] Care Teams Team MemberRelationshipSpecialtyStart DateEnd Date Blade De Leon DO [facility] - [facility] Efoqpioe[facility]/25/24
--- OUTSIDE RECORDS SUMMARY | 2025-03-04 13:24 | XMS_ITS | Clinical Summary ---
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 Name Role Phone Dharmesh Orellana MD Primary Care Provider [phone] Allergies No known active allergies Medications MedicationSigDispense QuantityRefillsLast FilledStart DateEnd DateStatus Topiramate ER 50 MG capsule extended-release 24 hour sprinkle Take 50 mg by mouth in the morning and 50 mg before bedtime.Active SUMAtriptan (Imitrex) 50 MG tablet Take 50 mg by mouth 1 (one) time if neededActive traZODone (Desyrel) 50 MG tablet Take 50 mg by mouth at bedtimeActive Solriamfetol HCl (Sunosi) 75 MG tablet Take 75 mg by mouth 1 (one) time each day at the same timeActive escitalopram (Lexapro) 10 MG tablet Indications:Depression with anxietyTake 1 tablet (10 mg) by mouth Daily 30 tablet ctive hyoscyamine ER (Levbid) 0.375 MG 12 hr tablet Indications:Irritable bowel syndrome with diarrheaTake 1 tablet (0.375 mg) by mouth every 12 (twelve) hours Do not crush or chew. 60 tablet ctive albuterol HFA 90 mcg/act inhaler Indications:Mild intermittent asthma without complication (HCC)Inhale 2 puffs every 4 (four) hours if needed for wheezing 18 g ctive Fluticasone-Salmeterol (Advair Diskus) 100-50 MCG/ACT aerosol powder Indications:Mild intermittent asthma without complication (HCC)Inhale 1 puff in the morning and 1 puff before bedtime. 1 each ctive gabapentin (Neurontin) 100 MG capsule Take 100 mg by mouth in the morning and 100 mg in the evening and 100 mg before bedtime.09/27/2023ctive topiramate (Topamax) 100 MG tablet Indications:Epilepsy undetermined as to focal or generalized (HCC)Take 1 tablet (100 mg) by mouth in the morning and 1 tablet (100 mg) before bedtime. 60 tablet 5010/22/2023ctive tiZANidine (Zanaflex) 4 MG tablet Indications:Chronic neck pain1-2 tabs QHS 60 tablet ctive Active Problems ProblemNoted DateDiagnosed DateModerate episode of recurrent major depressive nilnvcqe59/03/2024Marital svwoyuse01/03/2024hronic left shoulder pain10/22/2023 Assessment & Plan (10/22/2023 1:31 PM EDT): XR L shoulder - [facility]. Ortho consult - Girish/Ja/Darren Larson or José Antonio. Ortho to decide on PT, once status of joints is known. ENMG of L>RUE, once pain is better controlled. (arm pain, M79.603). Insomnia, kldgeophokijoylojfv24/28/2024 Assessment & Plan (10/22/2023 1:33 PM EDT): (Continue current regimen) Carpal tunnel syndrome, qqhpoadzc37/28/2024 Assessment & Plan (10/22/2023 1:33 PM EDT): (Continue splints B nightly.) Muscle spasm10/18/2023Medication side effect, ejbefgo9210/18/2023 Overview (10/18/2023): --- suspect bone density loss from PHT. MAGED (generalized anxiety disorder)10/17/2023Mild intermittent asthma without brqyhnapgjbw11/07/2024Epilepsy undetermined as to focal or qoybmcnbtkz81/07/2024 Assessment & Plan (10/22/2023 1:36 PM EDT): Driving - must hold off. Incr TPM to 100 q12. WWE - restart MVI !!! (for folate). Rx. TPM level in 1 w. SALVADOR (obstructive sleep apnea)08/27/2023 Assessment & Plan (10/22/2023 1:33 PM EDT): (Continue positioning tx.) Migraine without aura, intractable, without status ykhxmgzuqyg27/07/2024 Assessment & Plan (10/22/2023 1:32 PM EDT): (Continue current regimen.) Would restart Mg. Depression with eucxozn2908/27/2023Irritable bowel syndrome with diarrhea 08/27/2023hronic bilateral low back pain without reqdrgex51/07/2024hronic neck pain08/27/2023 Assessment & Plan (10/22/2023 1:27 PM EDT): XR C-s 6 views. - [facility]. Add celecoxib 200 qam. Add tizanidine 4 hs, may incr to 8 hs. Encounters DateTypeDepartmentCare UmraLfmsxdrwzqb49/28/2025Refill [facility] [address] [place] [address] Ronnell Little MD Chronic neck painfrom Last 3 Months Social History Tobacco UseTypesPacks/DayYears UsedDateSmoking Tobacco: Unknown Tobacco Cessation:Counseling Given: Not Answered PHQ-2AnswerDate RecordedPatient Health Questionnaire-2 Xclfo825regnant CommentsUnknownSex and Gender InformationValueDate RecordedSex Assigned at Not on fileLegal HqqIhbsds54/15/2023 8:22 PM EDTGender IdentityNot on fileSexual OrientationNot on file Last Filed Vital Signs Vital SignReadingTime TakenCommentsBlood Nxxxewtd700/8007 12:38 PM EDT Husgt6580 12:38 PM HRATylgocrozey19.4 ??C (97.5 ??F)08/27/2023 10:59 AM EDTRespiratory Cyno050008/27/2023 10:59 AM EDTOxygen Ysplnvjhln48%08/27/2023 10:59 AM EDTInhaled Oxygen Concentration--Iefawl94.5 kg (193 lb)10/22/2023 12:38 PM TKWQyowgr534.2 cm (5' 7 )10/22/2023 12:38 PM EDTBody Mass Index30.23010/22/2023 12:38 PM EDT Plan of Treatment Not on file Insurance Care Teams Team MemberRelationshipSpecialtyStart DateEnd Dharmesh Orellana MD [address] [place] [address] PCP - GeneralFacaly Medicine08/27/23
--- OUTSIDE RECORDS SUMMARY | 2025-03-04 13:24 | XMS_ITS | Clinical Summary ---
Author Organization [facility] Address [address] [place] [id number] Care Team Providers Care Director Toxicology Name Role Phone Isiah Evangelista Unavailable [facility], Blade WHITE Primary Care Provider + Allergies No known active allergies Medications MedicationSigDispense QuantityRefillsLast FilledStart DateEnd DateStatus sertraline (ZOLOFT) 100 mg tablet Take 100 mg by mouth. Active topiramate XR (QUDEXY XR) 50 mg cap(s) Take 50 mg by mouth twice daily.05/23/2021ctive traZODone (DESYREL) 50 mg tablet TAKE 1 TABLET BY MOUTH EVERYDAY AT JZTKAHM2105/23/2021ctive SUMAtriptan (IMITREX) 50 mg tablet 06/19/2021ctive Active Problems ProblemNoted DateDiagnosed DateIron nvqrrmuwim59/23/2022Iron deficiency anemia 09/29/2021 Immunizations ImmunizationAdministration DatesNext Dueinfluenza (IIV4) vaccine, age 6 mo - 64 yr, quadrivalent, PF (AFLURIA, FLUARIX, FLULAVAL, FLUZONE)02/16/2019,12/31/2017 Social History Tobacco UseTypesPacks/DayYears UsedDateSmoking Tobacco: FormerSmokeless Tobacco: NeverAlcohol UseStandard Drinks/WeekCommentsYes1 (1 standard drink = 0.6 oz pure alcohol)sociallyPHQ-2AnswerDate RecordedPHQ-2 ybrcl519rea Deprivation IndexAnswerDate RecordedNational Score (1-100), lower number is lower risk89 05/19/2022State Score (1-10), lower number is lower riskNot on file05/19/2022 Data from: https://www.neighborhoodatlas.medicine.[facility].edu/. Last address used for [address]CommentsNoSex and Gender InformationValueDate RecordedSex Assigned at BirthNot on fileLegal SexFemale 07/29/2018 4:22 PM EDTGender IdentityNot on fileSexual OrientationNot on file Last Filed Vital Signs Vital SignReadingTime TakenCommentsBlood Azrnlkrj119/6807 10:36 AM EDT Pxnyk001911/10/2021 10:36 AM AFNSigpltibigv42.6 ??C (97.8 ??F)11/10/2021 10:36 AM EDTRespiratory Ljdz728911/10/2021 10:36 AM EDTOxygen Kaxjaqwsek15%11/10/2021 10:36 AM EDTInhaled Oxygen Concentration--Uekiuw59.7 kg (186 lb 12.8 oz)11/10/2021 10:36 AM GQIJvrwzo199.6 cm (5' 5.98 )11/10/2021 10:36 AM EDTBody Mass Index30.16 11/10/2021 10:36 AM EDT Plan of Treatment Health MaintenanceDue DateLast DoneCommentsAnxiety Ghcdzunxe45/30/1996Depression Zltpljfjy58/30/1996HIV Pgdzwcgux40/30/1996Hepatitis C Hmvmnkghd28/30/1996 DTaP,Tdap,Td Vaccine (1 - Tdap)1997Hepatitis B Vaccine (1 of 3 - 19+ 3- dose series)1997Cervical Cancer Dzmdihflm57/30/1999Mammogram Screening 2018CT Woscsfqseryf24/30/2023ologuard (FIT-DNA)2023olonoscopy 2023olorectal Cancer Vvbxeuaug04/30/2023Fecal Occult Blood2023Lipid Bbxehwzwl69/30/0089Fursgxqoqdsgh28/30/2023iabetes Adnjfjfvw28/22/2025 11/10/2021, 05/29/2021, 01/25/2018, Additional history existsCovid-19 Vaccine ( season)2024Influenza Vaccine (#1), 12/31/2017 Procedures Procedure NamePriorityDate/TimeAssociated DiagnosisCommentsCOMPREHENSIVE METABOLIC RLYVPCexqjvt96/22/2022 10:24 AM EDT Iron deficiency anemia, unspecified iron deficiency anemia type from Last 3 Months or Most Recently Relevant to Health Maintenance Results * (ABNORMAL) COMP METABOLIC PANEL (11/10/2021 10:24 AM EDT)ComponentValueRef RangeTest MethodAnalysis TimePerformed AtPathologist SignatureProtein, Total 6.66.3 - 8.0 g/dL11/10/2021 11:05 AM [facility]NO[facility] Albumin4.13.9 - 4.9 g/dL11/10/2021 11:05 AM [facility] LABCalcium, Total9.38.5 - 10.2 mg/dL11/10/2021 11:05 AM EDTNOCHARLESTON [facility] LABBilirubin, Total0.60.2 - 1.3 mg/dL11/10/2021 11:05 AM [facility] LABAlkaline Cshvyjlqkjc4444 - 123 U/L 11/10/2021 11:05 AM [facility] ODHJZD9955 - 35 U/L 11/10/2021 11:05 [facility] DCSRJP467 - 38 U/L 11/10/2021 11:05 AM [facility] IMGGftcmyb873(H)74 - 99 mg/dL11/10/2021 11:05 AM [facility] LABComment: The [place] Diabetes Association (ADA) provides guidance for cutoff values for fasting glucose andrandom glucose. The ADA defines fasting as no [...] Standards of Medical Care in Diabetes 2016, [place] Diabetes Association. Diabetes Care. 2016.39(Suppl 1). DMI149 - 21 mg/dL11/10/2021 11:05 AM [facility] Creatinine0.910.58 - 0.96 mg/dL11/10/2021 11:05 AM [facility] PWYJgnumn138786 - 144 mmol/L11/10/2021 11:05 AM [facility] LABPotassium4.03.7 - 5.1 mmol/L11/10/2021 11:05 AM [facility] TJUZcidepum342(H)97 - 105 mmol/L11/10/2021 11:05 AM [facility] VVJCB14526 - 30 mmol/L11/10/2021 11:05 AM [facility] LABAnion Gap8(L)9 - 18 mmol/L11/10/2021 11:05 AM [facility] LABEstimated Glomerular Filtration Rate 80>=60 mL/min/1.73m 11/10/2021 11:05 AM [facility] LABComment:Estimated Glomerular Filtration Rate (eGFR) is calculated using the 2020 CKD-EPI creatinine equation. This equation utilizes serum creatinine, sex, and age as parameters. The creatinine assay has traceable calibration to isotope dilution- mass spectrometry. Refer to KDIGO guidelines for clinical interpretation. In patients with unstable renal function, e.g. those with acute kidney injury, the eGFRmay not accurately reflect actual GFR.Specimen (Source)Anatomical Location / LateralityCollection Method / VolumeCollection TimeReceived TimeBloodBLOOD SPECIMEN / UnknownVenipuncture / Uasljhi7311/10/2021 10:24 AM EDT11/10/2021 10:24 AM EDT Narrative Authorizing ProviderResult TypeResult StatusMinperez CLEMENTS-CLABORATORYFinal ResultPerforming OrganizationAddressCity/State/ZIP CodePhone Number [facility] [address] [place] [address] from Last 3 Months or Most Recently Relevant to Health Maintenance Insurance Care Teams Team MemberRelationshipSpecialtyStart DateEnd Blade Bray Sr., DO [address] [place] [phone] PCP - GeneralFamily Medicine05/29/21 Isiah Evangelista [address] [place] [phone] ReferringOb/Gyn07/29/18
--- OUTSIDE RECORDS SUMMARY | 2025-03-04 13:24 | XMS_ITS | Clinical Summary ---
Author Organization [facility] Address [address], [address] [place] [address] Care Team Providers Care Hotel Office Manager Name Role Phone Moises Ballesteros DO, Charles P Primary Care Provider + Social History Tobacco UseTypesPacks/DayYears UsedDateSmoking Tobacco: Never Assessed CommentsUnknownSex and Gender InformationValueDate RecordedSex Assigned at Not on fileLegal TjiVlcxbt50/21/2015 3:18 PM EDTGender IdentityNot on fileSexual OrientationNot on file Plan of Treatment Not on file Insurance Care Teams Team MemberRelationshipSpecialtyStart DateEnd Blade Bray Sr., DO [address] [place] [address] PCP - GeneralFamily Medicine10/22/19
--- OUTSIDE RECORDS SUMMARY | 2025-03-04 13:27 | XMS_ITS | CCD ---
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 Name Role Phone Eleonora, Sr Blade Soriano Primary Care Provider ALEX LITTLE Referring Unavailable ELEONORA, SR BLADE Soriano Primary Care Unavailable Isiah Evangelista Unavailable [place] Blade Ballesteros Primary Care Provider DO Blade Crews Primary Care Provider DO Bryan Quiros Attending Provider ELEONORA, DR MURGUIA Primary Care Unavailable KARASIK, DR QUINTERO Admitting Unavailable KARASIK, DR QUINTERO Attending Unavailable KARASIK, DR QUINTERO Admitting Unavailable KARASIK, DR QUINTERO Consulting Unavailable ELEONORA, DR MURGUIA Primary Care Unavailable KARASIK, DR QUINTERO Attending Unavailable MORGOSKIRIT Consulting Unavailable DIDIER, HANS Consulting Unavailable ELEONORA, DR MURGUIA Primary Care Unavailable HAY, DR GUERRERO Attending Unavailable HAY, DR GUERRERO Admitting Unavailable HAY, DR GUERRERO Consulting Unavailable KARASIK, DR QUINTERO Admitting Unavailable KARASIK, DR QUINTERO Consulting Unavailable KARASIK, DR QUINTERO Attending Unavailable HOUSE, DR MURGUIA Primary Care Unavailable KARASIK, DR QUINTERO Attending Unavailable KARASIK, DR QUINTERO Admitting Unavailable ELEONORA, DR MURGUIA Primary Care Unavailable TAYLORDICK Consulting Unavailable KARASIK, DR QUINTERO Admitting Unavailable KARASIK, DR QUINTERO Consulting Unavailable ELEONORA, DR MURGUIA Primary Care Unavailable KARASIK, DR QUINTERO Attending Unavailable ELEONORA, DR MURGUIA Primary Care Unavailable DIAB, MERNA Attending Unavailable DIAB, MERNA Admitting Unavailable DIAB, MERNA Consulting Unavailable ELEONORA, DR MURGUIA Primary Care Unavailable RUSSELL, DR ALEX Kemp Consulting Unavailable MAGALI RING Attending Unavailable MARÍA ELENA, MAGALI Admitting Unavailable MARÍA ELENA, MAGALI Consulting Unavailable REDD, WICHO Consulting Unavailable KARASIK, DR QUINTERO Admitting Unavailable KARASIK, DR QUINTERO Consulting Unavailable HOUSE, DR MURGUIA Primary Care Unavailable KARASIK, DR QUINTERO Attending Unavailable WEST, DR BRYAN Lawler Consulting Unavailable KARASIK, DR QUINTERO Admitting Unavailable KARASIK, DR QUINTERO Consulting Unavailable HOUSE, DR MURGUIA Primary Care Unavailable KARASIK, DR QUINTERO Attending Unavailable ZIEBER, DR AUSTIN Kemp Consulting Unavailable KARASIK, DR QUINTERO Admitting Unavailable KARASIK, DR QUINTERO Consulting Unavailable KARASIK, DR QUINTERO Attending Unavailable HOUSE, DR MURGUIA Primary Care Unavailable KARASIK, DR QUINTERO Admitting Unavailable KARASIK, DR QUINTERO Consulting Unavailable HOUSE, DR MURGUIA Primary Care Unavailable KARASIK, DR QUINTERO Attending Unavailable KARASIK, DR QUINTERO Admitting Unavailable KARASIK, DR QUINTERO Consulting Unavailable KARASIK, DR QUINTERO Attending Unavailable HOUSE, DR MURGUIA Primary Care Unavailable HOUSE, DR MURGUIA Primary Care Unavailable RUSSELL, DR ALEX Kemp Admitting Unavailable RUSSELL, DR ALEX Kemp Consulting Unavailable RUSSELL, DR ALEX Kemp Attending Unavailable WEST, DR BRYAN Lawler Consulting Unavailable KARASIK, DR QUINTERO Admitting Unavailable MARTINEZ, DR HAND Consulting Unavailable HOUSE, DR MURGUIA Primary Care Unavailable KARASIK, DR QUINTERO Attending Unavailable KARASIK, DR QUINTERO Consulting Unavailable KARASIK, DR QUINTERO Procedure Practitioner Unava ilable DREIKORN, GIOVANNA Consulting Unavailable MARTINEZ, DR HAND Procedure Practitioner Unavai swetha CALDERON, MONI Consulting Unavailable Blade Crews Primary Care Physician AMELIE ESPARZA Attending Unavailable AMELIE ESPARZA Attending Unavailable KARJOEYKIngrid Referring Unavailable Constantino MARTINEZ Attending Unavailable Constantino MARTINEZ Attending Unavailable HALASY, RICO Attending Unavailable ADAM, RHANDA Attending Unavailable HALASY, RICO Referring Unavailable ADAM, RHANDA Attending Unavailable BEALEX Botello Attending Unavailable ALEX LITTLE Referring Unavailable ADAM, RHANDA Attending Unavailable RICO DE JESUS Attending Unavailable DAMARIS GUO Referring Unavailable ADAM, RHPOP Attending Unavailable ADAM, HENRIKANDA Attending Unavailable BLADE CREWS Primary Care Unavailable PATIENCE OROZCO Attending Unavailable PATIENCE OROZCO Attending Unavailable PATIENCE OROZCO Referring Unavailable HOUSE, BLADE P Primary Care Unavailable HOUSE, BLADE P Primary Care Unavailable CLARYSOPHIE Attending Unavailable HOUSE, BLADE P Primary Care Unavailable RACHELE VICKERS Attending Unavailable House DO, Blade Soriano Primary Care Provider HOUSE, BLADE P Primary Care Unavailable HOUSE, [...] Unavailable HOUSE, DO BLADE P Admitting Unavailable Medications Current Medications MedicationDrug Class(es)DatesSig (Normalized)Sig (Original)Amoxicillin (2 sources)Penicillin-class AntibacterialStart: 47-27-3820ggcagtjwudu BID Start Date: 10/30/22 Status: Orderedferrous sulfate 325 mg oral tablet (3 sources)Start: 96-13-2435syxm 325 mg by mouth once dailyFerrous Sulfate Active 325 MG PO Daily June 27, 2021 2:37pmFluticasone Propion-Salmeterol (3 sources)Corticosteroid, beta2-Adrenergic AgonistStart: 22-69-4458hzjs 1 puff(s) by inhalation every twelve hoursFluticasone Propion-Salmeterol (Advair Diskus) 100-50 mcg/dose Blister With Device Active 1 PUFF INHALATION Q12H April 28, 2018 9:60ozdkyhyjqpo-ahuqms-d-Jessica-menthoL 800 mg-0.025 %- 25 %-6 % kit, liquid & tablet (1 source)Start: 59-17-1629pods 1 tablet by mouth three times daily as needed for kvqleygyenwrj-ujaigy-p-Jessica-menthoL 800 mg-0.025 %- 25 %-6 % kit, liquid & tablet 1 tab(s) orally 3 times a day prn pain for 15 days 10/09/2023 Active nitrofurantoin, macrocrystals 25 mg / nitrofurantoin, monohydrate 75 mg oral capsule (1 source)Nitrofuran AntibacterialStart: 61-63-0905jwlkhxnqjzzlux macrocrystals- monohydrate 100 mg Cap Start Date: 01/08/23 Status: Orderedtopiramate 25 mg oral capsule (12 sources)Start: 44-02-5734lxebyucelq (TOPAMAX) 25 mg capsule Take by mouth. 10/30/2022 ActiveStart: 67-19-8069wsailocqjz Oral, BID Start Date: 10/30/22 Status: OrderedStart: 41-15-4959rnto 1 capsule by mouth twice dailytopiramate XR (QUDEXY XR) 50 mg cap(s) Take 50 mg by mouth twice daily. 0 05/23/2021 Active Comment on above:Take 50 mg by mouth twice daily. Completed/Discontinued Medications MedicationDrug Class(es)DatesSig (Normalized)Sig (Original)ciprofloxacin 500 mg oral tablet (1 source)Quinolone AntimicrobialStart: 10-30-2022 End: 31-05-0595lnow 1 tablet by mouth once dailyCipro 500 mg Tab 500 mg = 1 tab(s), Oral, Daily, Take one tab day before procedure, take one tab after procedure, X 2 day(s), # 2 tab(s), Refills(s) 0, Pharmacy: [facility]/pharmacy #[id number], 170, cm, 10/30/2309:53:00 EDT, Height/Length Dosing, 86.5, kg, 10/30/22 10:53:00 EDT,... Start Date: 10/30/22 Stop Date: 11/01/22 Status: Orderedgadoteridol (PROHANCE) injection 18 mL (1 source)Start: 10-22-2019 End: 55-98-1029bdrxjqeumhz (PROHANCE) injection 18 mLphenytoin sodium 100 mg extended release oral capsule (3 sources)Anti-epileptic AgentStart: 04-28-2018 End: 44-07-4651obiu 1 capsule by mouth once dailyPhenytoin Sodium Extended Discontinued 1 CAP PO Daily April 28, 2018 8:51am June 27, 2021 2:37pm sertraline 100 mg oral tablet (7 sources)Serotonin Reuptake Inhibitorsertraline (ZOLOFT) 100 mg tablet Take 100 mg by mouth. 0 ActiveComment on above:Take 100 mg by mouth.SUMAtriptan 50 mg oral tablet (6 sources)Serotonin-1b and Serotonin-1d Receptor AgonistStart: 06-19-2021 SUMAtriptan (IMITREX) 50 mg tablettraZODone hydrochloride 50 mg oral tablet (9 sources)Serotonin Reuptake InhibitorStart: 41-45-5662fyby 1 tablet by mouth once daily at bedtimetraZODone (DESYREL) 50 mg tablet TAKE 1 TABLET BY MOUTH EVERYDAY AT BEDTIME 0 05/23/2021 ActiveComment on above:TAKE 1 TABLET BY MOUTH EVERYDAY AT BEDTIME Problems Active Problems Problem ClassificationProblemDateDocumented DateEpisodic/ChronicAbdominal pain (10 sources)Pelvic and perineal pain; Translations: [Unspecified abdominal pain] Onset: 01-59-4714FqproduiPdtog cerebrovascular disease (1 source)Cerebral infarction, unspecified; Translations: [Cerebral infarction, unspecified]Onset: 81-72-9068AxvnhccVizyo cerebrovascular disease (1 source)Acute cerebrovascular diseaseOnset: 61-37-9349Bggltu (3 sources)Unspecified asthma, uncomplicated; Translations: [Asthma]Onset: 955293-68-9827NqmzscaTgfxrovats and other anemia (9 sources)Iron deficiency anemia; Translations: [Iron deficiency anemia, unspecified]Onset: 56-16-6468McwdwpezThratitraa and other anemia (1 source)Iron deficiency anemia, unspecified; Translations: [Iron deficiency anemia, unspecified]EpisodicEndometriosis (1 source)Endometriosis of pelvic peritoneum; Translations: [ENDOMETRIOSIS OF PELVIC PERITONEUM]Onset: 67-15-4733OypbxzvQkvqwyqx; convulsions (3 sources)Refractory epilepsy; Translations: [Epilepsy]50-22-1374Ggfyzre Genitourinary symptoms and ill-defined conditions (4 sources)Mixed incontinence; Translations: [Incontinence]Onset: 10-30-2022 ChronicHeadache; including migraine (2 sources)Jzkttcec45-44-9929HunpvfevUfpwcepe; including migraine (1 source)Headache; including migraine; Translations: [Headache, unspecified] Onset: 38-92-6762Xykxzqwbf disorders (6 sources)Excessive and frequent menstruation with regular cycle; Translations: [Dysmenorrhea, unspecified]Onset: 39-39-9411YatabncVywu disorders (1 source)Bipolar disorder, unspecified; Translations: [BIPOLAR DISORDER UNSPECIFIED]Onset: 53-72-3855GrchomhJwgs disorders (1 source)Mood disorders; Translations: [Depression, unspecified]Onset: 32-15-0302Ucjtxkammjy deficiencies (1 source)Iron deficiency; Translations: [Iron deficiency]Onset: 10-12-2021 40-57-0302HyzaizvdWsrltmryykhkto (3 sources)Unspecified osteoarthritis, unspecified site; Translations: [Unspecified osteoarthritis, unspecified site]Onset: 24-66-9732BtjbvcwExamt aftercare (1 source)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; Translations: [OTH MCC CURRENT DRUG THERAPY]Onset: 30-25-2792IyyzyoirLuykx connective tissue disease (3 sources)Other muscle spasm; Translations: [Other muscle spasm]Onset: 82-19-5769WznkjiezGbbon diseases of kidney and ureters (1 source)Acquired renal cyst without neoplastic change; Translations: [Cyst of kidney, acquired]Onset: 02-07-0410WawxjbwsZlprc diseases of kidney and ureters (1 source)Cyst of -29-0064EvrvdshqMwwjy female genital disorders (4 sources)Abnormal uterine and vaginal bleeding, unspecified; Translations: [ABNORMAL UTERINE VAGINAL BLEED UNS]Onset: 90-92-6567BwaearuQuuyx female genital disorders (1 source)Benign endometrial hyperplasia; Translations: [BENIGN ENDOMETRIAL HYPERPLASIA]Onset: 59-56-2130MrtzhtzTrwpm female genital disorders (1 source)Unspecified dyspareunia; Translations: [UNSPECIFIED DYSPAREUNIA]Onset: 55-99-0393PksoitoTnxre female genital disorders (4 sources)Other specified noninflammatory disorders of vagina; Translations: [OTH SPEC NONINFLAMMATORY D/O VAGINA]Onset: 59-09-0775WksdggtqYypjt gastrointestinal disorders (1 source)Irritable bowel syndrome without diarrhea; Translations: [IRRITABLE BOWEL SYND W/O DIARRHEA]Onset: 54-62-5023AjxxvdhJtfwz lower respiratory disease (1 source)Personal history of pneumonia (recurrent); Translations: [PERSONAL HX OF PNEUMONIA RECURRENT]Onset: 87-12-7317NkhcdqmvIdvme non-traumatic joint disorders (1 source)Pain in left shoulder; Translations: [PAIN IN LEFT SHOULDER]Onset: 43-75-9700YwnydpujDcvzl screening for suspected conditions (not mental disorders or infectious disease) (1 source)Abnormal findings on diagnostic imaging of other specified body structures; Translations: [ABNORML FIND DX IMG OT BODY STRUC]Onset: 12-21-2021 ChronicOther skin disorders (1 source)Easy bruising; Translations: [Other skin changes]EpisodicOther skin disorders (1 source)Follicular disorder, unspecified; Translations: [FOLLICULAR DISORDER UNSPECIFIED]Onset: 54-46-7258QjwhvbohTzpkk upper respiratory infections (4 sources)Acute pharyngitis, unspecified; Translations: [ACUTE PHARYNGITIS UNSPECIFIED]Onset: 37-10-0621SsmsvrdzOvhzwpzxnyl; intervertebral disc disorders; other back problems (5 sources)Pain in thoracic spine; Translations: [Cervicalgia]Onset: 05-10-2022 EpisodicSprains and strains (1 source)Strain of other muscles, fascia and tendons at shoulder and upper arm level, left arm, initial encounter; Translations: [STRN OTH MSC F TEND SHLDR UA LA INT]Onset: 82-20-0177ChuwtlepKwuieiadv-related disorders (1 source)Nicotine dependence, cigarettes, uncomplicated; Translations: [NICOTINE DEPEND CIGARETTES UNCOMP]Onset: 56-63-4960PydbbosUtmaipklnqga (1 source)CONTACT W/AND (SUSP) EXPOS COVID-19; Translations: [CONTACT W/AND (SUSP) EXPOS COVID-19]Onset: 35-75-8483Hlmnfjsidlql (1 source)Abdominal pain; back painOnset: 03-57-9072Brebcsfnhoqp (2 sources)Low back pain, unspecified; Translations: [Low back pain, unspecified]Onset: 38-14-6995Qimvb infection (2 sources)Genital herpes oesemja24-59-3748QxzndvbIfudp infection (1 source)Viral infection, unspecified; Translations: [VIRAL INFECTION UNSPECIFIED]Onset: 95-00-3155Oljrkvhc Past or Other Problems Problem ClassificationProblemDateDocumented DateEpisodic/ChronicBenign neoplasm of uterus (1 source)Leiomyoma of uterus, unspecified; Translations: [LEIOMYOMA OF UTERUS UNSPECIFIED]Onset: 63-21-5467HiiuxcqdYsxfh and electrolyte disorders (1 source)Hypokalemia; Translations: [Hypokalemia]Onset: 88-67-3654Shvcovih Genitourinary symptoms and ill-defined conditions (8 sources)Personal history of urinary (tract) infections; Translations: [Microscopic hematuria]Onset: 51-97-9122DgmeuqlqXtdvvximkzqgw and screening for infectious disease (1 source)Encounter for screening for human papillomavirus (HPV); Translations: [ENC SCREENING HUMAN PAPILLOMAVIRUS]Onset: 73-86-9273FzubhpjsCjagnvimmei chest pain (3 sources)Other chest pain; Translations: [Chest pain, unspecified]Onset: 29-11-4041EwvpkyevWjqde lower respiratory disease (4 sources)Dyspnea, unspecified; Translations: [DYSPNEA UNSPECIFIED]Onset: 02-56-6814LnvbwfplPkqpx nervous system disorders (3 sources)Anesthesia of skin; Translations: [ANESTHESIA OF SKIN]Onset: 14-07-8998MlpnuywpEdvsv nervous system disorders (1 source)Paresthesia of skin; Translations: [PARESTHESIA OF SKIN]Onset: 19-34-7960DowhskzfHvizq screening for suspected conditions (not mental disorders or infectious disease) (9 sources)Other specified abnormal findings of blood chemistry; Translations: [Encounter for screening mammogram for malignant neoplasm of breast]Onset: 43-15-2435DoixwkpeAmvjlmc cyst (1 source)Unspecified ovarian cyst, right side; Translations: [UNSPECIFIED OVARIAN CYST RIGHT SIDE]Onset: 57-61-7466TdbgplznFpirlozi codes; unclassified (1 source)Acquired absence of both cervix and uterus; Translations: [ACQUIRED ABSENCE BOTH CERVIX AND UTERUS]Onset: 53-15-6347GqrdkuwdSeroblboukqg (1 source)Low back pain, unspecified; Translations: [Low back pain, unspecified] Onset: 21-60-3017Dbqxphf tract infections (1 source)Acute cystitis with hematuria; Translations: [Acute cystitis with hematuria]Onset: 76-65-1254Jblnoxjt Results Test NameValueInterpretationReference RangeFacilityCoding Summaryon 02-18-2025 Coding SummaryHTMLBase 64 HfufvxofDRp7mTs+PGhlYWQ+EV3HAKBiG53kcWGbhC8zW3ZXJPcQRmmfTQIORGjMMxPasrAkYN9kmBBh ZXJu [file] dHl (more content not included)...[facility] HospitalCoding Summaryon 84-24-6539Wdjgel SummaryHTMLBase 64 AfnaxxzzQDz9oMo+PGhlYWQ+QS1ZEXCfX68llSZejB7hU6ZTYGjRTeufLQXDJRpFEuIyxbIzAR1cqNLm ZXJu [file] cHN (more content not included)...[facility] HospitalConsent Formson 53-76-8130Gukshlm [id number]#1.00OTGTIFFNoal [facility] Medical CenterReminder Messageson 82-59-8140Wrslneaq Messages From: BLADE CREWS DO To: [facility] Clinical Pool ([facility]); Sent: 02/01/2025 15:05:59 EDT ! Show up: 02/01/2025 15:05:59 EDT Subject: Results Follow Up Actions: Call the patient with result(s) Due Date/Time: 02/02/2025 15:05:00 EDT Reminder Comments: looks okay. no acute issues present Results: Date Result Type Result Name 02/01/2025 14:[address] Abdomen/Pelvis w/ Contrast Patient notified. Patient made appt tomorrow to discuss further.[facility] HospitalCT Abdomen/Pelvis w/ Contraston 37-98-8706ZZ Abdomen/Pelvis w/ Contrast EXAM: CT Abdomen/Pelvis w/ Contrast HISTORY: Noninfective gastroenteritis and colitis, unspecified TECHNIQUE: CT Abdomen/Pelvis w/ Contrast - Omnipaque-350 75 cc. . Radiation dose reduction was utilized (automated exposure control, mA or kV adjustment based on patient size, or iterative image reconstruction). COMPARISON: CT abdomen pelvis 11/23/2022 FINDINGS: LOWER CHEST: Visualized lung bases and heart are unremarkable. Abdomen/Pelvis: LIVER: Hepatomegaly measuring 17.1 cm again noted. BILIARY: Unremarkable PANCREAS: Unremarkable SPLEEN: Unremarkable ADRENALS: Unremarkable KIDNEYS: Stable right lower pole cyst measuring 1.7 cm. STOMACH: Unremarkable DUODENUM: Unremarkable VASCULATURE: Unremarkable LYMPHATIC: Unremarkable SMALL & LARGE BOWEL: Unremarkable. Unremarkable appendix. BLADDER: Unremarkable REPRODUCTIVE ORGANS: Unremarkable ABDOMINAL WALL: Stable tiny fat-containing umbilical hernia. BONES/SOFT TISSUE: Stable grade 1 anterolisthesis of L4 on L5. OTHER: Unremarkable IMPRESSION: No acute findings. Final Dictated by: Dawit Hayward MD Dictated DT/TM: 02/01/25 2:09 Signed (Electronic Signature): Dawit Hayward MD 02/01/25 2:11 pm Technologist: AIRAMWright-Patterson Medical CenterOutside Recordson 75-47-9881Qcwzavt [id number]#1.00OTMarion HospitalLab - Other Lab Resultson 17-43-9603Pii - Other Lab Results [id number]#1.00OTMarion Hospital Coding Summaryon 33-05-6706Oyposd SummaryHTMLBase 64 WoowyyyrVHf1dLx+PGhlYWQ+PG6NMVWbF04tzFMctH9kA4CMWRxNSutrMZJDTCmKDyWxlcLtKX2beVOv ZXJu [file] b2x (more content not included)...[facility] HospitalReminder Messageson 14-46-5057Kqyogntj Messages From: BLADE CREWS DO To: [facility] Sent: 06/22/2024 12:08:59 EST ! Show up: [...] % (14 - 48) 06/22/2024 11:12 Auto [place] % 12 % (1 - 12) 06/22/2024 11:12 Auto Eos % 3.8 % (0.9 - 4.0) 06/22/2024 11:12 Auto Baso % 1.2 % (0.2 - 2.0) 06/22/2024 11:12 Neut Abs# (L) 1.4 x103/mcL (1.5 - 9.2) 06/22/2024 11:12 Lymph Abs# 1.3 x103/mcL (1.3 - 2.9) 06/22/2024 11:12 [place] Abs# 0.4 x103/mcL (0.0 - 0.8) 06/22/2024 [...] to go back to work on 06/24/2024? From: Gavi Mora MA (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 From: Gavi Mora MA ([facility] Clinical Pool ([facility])) To: [facility] Clerical Pool ([facility]); Sent: 06/23/2024 10:43:45 EST Show up: 06/23/2024 10:43:00 EST Subject: RE: Results Follow Up Note prepared and placed in patient pickup folder in front office.[facility].Auto Diff 1on 54-34-1207Oiaf [place] %12 %Normal1-12[facility] Comment on above:Performed By: #### [id number], [id number], [id number] ####[facility] (DEFAULT)[address] [place] [address] 41802Knpx Abs#0.0 y89Jpozce 0.0-0.2[facility] HospitalComment on above:Performed By: #### [id number], [id number], [id number] ####[facility] (DEFAULT)[address] [place] [address] 66677 Basophils/100 WBC (Bld)1.2 %Normal0.2-2.0[facility] HospitalComment on above: Performed By: #### [id number], [id number], [id number] ####[facility] (DEFAULT)[address] [place] [address] 92934Cyv Abs#0.1 z04Mxmgpz3.0-0.4 [facility] Medical CenterComment on above:Performed By: #### [id number], [id number], [id number] ####[facility] (DEFAULT)[address] [place] [address] 66044 Eosinophils/100 WBC (Bld)3.8 %Normal0.9-4.0[facility] HospitalComment on above: Performed By: #### [id number], [id number], [id number] ####[facility] (DEFAULT)[address] [place] [address] 68981Pptqg Abs#1.3 e62Nkdcwi5.3-2.9 [facility] HospitalComment on above:Performed By: #### [id number], [id number], [id number] ####[facility] (DEFAULT)[address] [place] [address] 13035 Lymphocytes/100 WBC (Bld)40 %Jerkjq19-66Jsfkasvt HospitalComment on above: Performed By: #### [id number], [id number], [id number] ####[facility] (DEFAULT)[address] [place], [place] [address]Mono Abs#0.4 u44Gixada9.0-0.8 [facility] HospitalComment on above:Performed By: #### [id number], [id number], [id number] ####[facility] (DEFAULT)[address] [place] [address] Neut Abs#1.4 w82Xrx3.5-9.2[facility] HospitalComment on above:Performed By: #### [id number], [id number], [id number] ####[facility] (DEFAULT)[address] [place], [place] [address]Neutrophils/100 WBC (Bld)44 %Bdgqnn73-42Ucyfiikn HospitalComment on above:Performed By: #### [id number], [id number], [id number] ####[facility] (DEFAULT)[address] [place] [address] 08995APW w/ Auto Diffon 58-12-8517Xapjvynfaxa distribution width (RBC) [Ratio]13.5 %Normal 11.5-15.0[facility] HospitalComment on above:Performed By: #### [id number], [id number], [id number] ####[facility] (DEFAULT)[address] [place] [address] 63522Jtuuimgzkp (Bld) [Volume fraction]39.9 %Yzepcu14.7-40.4[facility] HospitalComment on above:Performed By: #### [id number], [id number], [id number] ####[facility] (DEFAULT)[address] [place], [place] [address]Hemoglobin (Bld) [Mass/Vol]13.4 g/oFEqzfhg65.3-15.9[facility] Medical CenterComment on above: Performed By: #### [id number], [id number], [id number] ####[facility] (DEFAULT)[address] [place], [place] [address]Man Diff?AutoInvalid Interpretation CodeUniversity Hospitals Parma Medical CenterComment on above:Performed By: #### [id number], [id number], [id number] ####[facility] (DEFAULT)[address] [place], [place] [address]H (RBC) [Entitic mass]30 diTndrdy47-94Bhkyhnxd Hospital Comment on above:Performed By: #### [id number], [id number], [id number] ####[facility] (DEFAULT)[address] [place] [address] 39865NPRJ (RBC) [Mass/Vol]34 g/jMXobryc86-01Ohjkrrde HospitalComment on above:Performed By: #### [id number], [id number], [id number] ####[facility] (DEFAULT)[address] [place], [place] [address]MCV (RBC) [Entitic vol]88 yLXlimbw20-893Dtkyxkkz Hospital Comment on above:Performed By: #### [id number], [id number], [id number] ####[facility] (DEFAULT)[address] [place] [address] 63539Qlkeladf540 f89Plkgup 138-427[facility] Medical CenterComment on above:Performed By: #### [id number], [id number], [id number] ####[facility] (DEFAULT)[address] [place] [address] Platelet mean volume (Bld) [Entitic vol]7.2 fLNormal6.3-10.2MFairfield Medical Center Comment on above:Performed By: #### [id number], [id number], [id number] ####[facility] (DEFAULT)[address] [place] [address] 48157IIU5.54 d04Lbjfqp 3.70-5.30[facility] HospitalComment on above:Performed By: #### [id number], [id number], [id number] ####[facility] (DEFAULT)[address] [place] [address] 00113KYV4.1 w03Gaf0.5-10.5[facility] HospitalComment on above:Result Comment: Slide ReviewedPerformed By: #### [id number], [id number], [id number] ####[facility] (DEFAULT)[address] [place] [address] 42211HEQ Standardon 83-71-1832pNRU Non AA>60Invalid Interpretation [facility] Comment on above:Performed By: #### [id number], [id number], [id number] ####[facility] (DEFAULT)[address] [place] [address] 36300iPWK AA>60Invalid Interpretation [facility] HospitalComment on above:Performed By: #### [id number], [id number], [id number] ####[facility] (DEFAULT)[address] [place] [address] 56046Deuazgg [Mass/Vol]4.0 g/dLNormal3.5-5.0[facility] HospitalComment on above:Performed By: #### [id number], [id number], [id number] ####[facility] (DEFAULT)[address] [place] [address] 68913Kxsqggp/Globulin [Mass ratio] 1.2 {ratio}Low1.4-2.6[facility] HospitalComment on above:Performed By: #### [id number], [id number], [id number] ####[facility] (DEFAULT)[address] [place] [address] 37675Dxn Phos50 IU/NNqhjwt17-04Exkjprvj HospitalComment on above:Performed By: #### [id number], [id number], [id number] ####[facility] (DEFAULT)[address] [place] [address] 75775ASX [Catalytic activity/Vol]21.0 U/QJgfoia04.0-54.0[facility] HospitalComment on above:Performed By: #### [id number], [id number], [id number] ####[facility] (DEFAULT)[address] [place] [address] 84531Uthbi gap [Moles/Vol]1.4 mmol/LLow5.0-19.0[facility] Comment on above:Performed By: #### [id number], [id number], [id number] ####[facility] (DEFAULT)[address] [place] [address] 58912TYW [Catalytic activity/Vol]22 U/YGitnne74-20Jgpjhrfx HospitalComment on above:Performed By: #### [id number], [id number], [id number] ####[facility] (DEFAULT)[address] [place] [address] 40122Qojb Total1.4 mg/dLHigh0.3-1.2MFairfield [facility] Center Comment on above:Performed By: #### [id number], [id number], [id number] ####[facility] (DEFAULT)[address] [place] [address] 27084Intttri [Mass/Vol]8.1 mg/dLLow8.9-10.3[facility] HospitalComment on above:Performed By: #### [id number], [id number], [id number] ####[facility] (DEFAULT)[address] [place] [address] 94583Mjxybohb [Moles/Vol]108 mmol/LAhlrhc116-115Iqctywaa Hospital Comment on above:Performed By: #### [id number], [id number], [id number] ####[facility] (DEFAULT)[address] [place] [address] 02642SM5 [Moles/Vol]27 mmol/ITrtpyq96-64Hbvihqxu HospitalComment on above:Performed By: #### 3696961, [id number], [id number] ####[facility] (DEFAULT)[address] [place] [address] 13163Ykhjwqoaso [Mass/Vol]0.74 mg/dLNormal0.60-1.30[facility] Comment on above:Performed By: #### [id number], [id number], [id number] ####[facility] (DEFAULT)[address] [place] [address] 79955Jhpvksth (S) [Mass/Vol] 3.3 g/dLNormal1.5-4.3[facility] HospitalComment on above:Performed By: #### [id number], [id number], [id number] ####[facility] (DEFAULT)[address] [place] [address] 60737Coldadh [Mass/Vol]94.0 mg/iJQsnqmu84.0-118.0[facility] HospitalComment on above:Performed By: #### [id number], [id number], 73751910 ####[facility] (DEFAULT)[address] [place] [address] 55731Fgkjwfnhzl 266 mOsm/LInvalid Interpretation CodeSelect [facility] Specialty [facility] HospitalComment on above:Performed By: #### [id number], [id number], [id number] ####[facility] (DEFAULT)[address] [place] [address] 57248Gtlnjjxwd [Moles/Vol]3.4 mmol/LLow3.6-5.1 [facility] HospitalComment on above:Performed By: #### [id number], [id number], 41452291 ####[facility] (DEFAULT)[address] [place] [address] 93085 Protein [Mass/Vol]7.3 g/dLNormal6.5-8.1[facility] HospitalComment on above: Performed By: #### 6849380, [id number], [id number] ####[facility] (DEFAULT)[address] [place] [address] 29168Bdcfzr [Moles/Vol]133.0 mmol/L Ykv423.0-144.0[facility] HospitalComment on above:Performed By: #### [id number], [id number], 81439967 ####[facility] (DEFAULT)[address] [place], [place] [address]Urea nitrogen [Mass/Vol]11 mg/dLNormal8-26[facility] Comment on above:Performed By: #### [id number], [id number], 62907537 ####[facility] (DEFAULT)[address] [place], [place] [address]Urea nitrogen/Creatinine [Mass ratio]14.8 mg/mgNormal4.6-16.2[facility] HospitalComment on above:Performed By: #### 7400610, [id number], [id number] ####[facility] (DEFAULT)[address] [place] [address] 04918RX Hqijy0rx 63-18-3026GW BacteriaTraceNoTriHealth Good Samaritan HospitalComment on above:Order Comment: Urinalysis Microscopic order added on by [employer] Expert Rules system.Performed By: #### [id number], [id number] ####[facility] (DEFAULT)[address] [place], [place] [address]UA RBC3-5NoTriHealth Good Samaritan HospitalComment on above:Order Comment: Urinalysis Microscopic order added on by [employer] Expert Rules system.Performed By: #### [id number], [id number] ####[facility] (DEFAULT)[address] [place] [address] 06940TY Squam EpiFewNoTriHealth Good Samaritan HospitalComment on above:Order Comment: Urinalysis Microscopic order added on by [employer] Expert Rules system.Performed By: #### [id number], [id number] ####[facility] (DEFAULT)[address] [place], [place] [address]UA WBC0-2NormalUniversity Hospitals [facility] Comment on above:Order Comment: Urinalysis Microscopic order added on by [employer] Expert Rules system.Performed By: #### [id number], [id number] ####[facility] (DEFAULT)[address] [place], [place] [address]UA w Culture if Ind Standardon 40-97-1273Xlbtqmumxc UASalem City HospitalComment on above:Performed By: #### [id number], [id number] ####[facility] (DEFAULT)[address] [place] [address] 40247Pdjkk (U)YellowNormalMagruder HospitalComment on above:Performed By: #### [id number], [id number] ####[facility] (DEFAULT)[address] [place] [address] 41037Kcarncx?Not IndicatedInvalid Interpretation CodeSelect [facility] HospitalComment on above:Result Comment: Result created by rule GL_MAGR_ADD_UA_CULT Result created by rule GL_MAGR_ADD_UA_CULT Result created by rule GL_MAGR_ADD_UA_CULT1Performed By: #### [id number], [id number] ####[facility] (DEFAULT)[address] [place] [address] 17385 Glucose (U) [Mass/Vol]NegativeNormalHigrdoctors hospital HospitalComment on above:Performed By: #### [id number], [id number] ####[facility] (DEFAULT)[address] [place] [address] 46422Rhdgaqt Ql (U)NegativeNormalMagrdoctors hospital HospitalComment on above:Performed By: #### [id number], [id number] ####[facility] (DEFAULT)[address] [place] [address] 24331Qwfdw?IndicatedInvalid Interpretation CodeSelect [facility] HospitalComment on above:Result Comment: Result created by rule GL_MAGR_ADD_UA_MICROPerformed By: #### [id number], [id number] ####[facility] (DEFAULT)[address] [place] [address] 62466JN BilirubinNegativeNormalMagrdoctors hospital HospitalComment on above:Performed By: #### [id number], [id number] ####[facility] (DEFAULT)[address] [place] [address] 13332JZ BloodSMALLAbnormalNEGATIVESelect Medical Specialty [facility] [place] HospitalComment on above: Performed By: #### [id number], [id number] ####[facility] (DEFAULT)[address] [place] [address] 54731VH ClarityCLEARNormalCLEARMagruder Hospital Comment on above:Performed By: #### [id number], [id number] ####[facility] (DEFAULT)[address] [place] [address] 95499OY Leuk EstNegativeNormal NEGATIVESelect Medical Specialty Hospital [facility] [place] HospitalComment on above:Performed By: #### [id number], [id number] ####[facility] (DEFAULT)[address] [place] [address] 98425 UA NitriteNegativeNormalNEGATIVESelect Medical Specialty [facility] [place] HospitalComment on above:Performed By: #### [id number], [id number] ####[facility] (DEFAULT)[address] [place] [address] 73980FZ pH7.5Tvhmjy2-0Yheavxnr HospitalComment on above:Performed By: #### [id number], [id number] ####[facility] (DEFAULT)[address] [place] [address] 73513GL ProteinNegativeNormalNEGMercy Health Urbana Hospital Comment on above:Performed By: #### [id number], [id number] ####[facility] (DEFAULT)[address] [place] [address] 83703DU Spec Grav1.020Normal 1.001-1.035[facility] Medical CenterComment on above:Performed By: #### [id number], [id number] ####[facility] (DEFAULT)[address] [place] [address] 03260 UA Urobilinogen1.0 mg/dLNormal0.2-1.0[facility] HospitalComment on above:Performed By: #### [id number], [id number] ####[facility] (DEFAULT)[address] [place] [address] 47374Slqsw SourceClean CatchNoTriHealth Good [facility]aritan Hospital Comment on above:Performed By: #### [id number], [id number] ####[facility] (DEFAULT)[address] [place] [address] 08086Rvdhzv/Clinic Noteon 06-01-2024 Office/Clinic [id number]#1.00OTGTIFFNormal [facility] AND AUTO DIFFon 76-50-3602EEDLYHHE BASOPHIL0.0 X10E9/L Normal0.0-0.2PRegency Hospital CompanyComment on above:Performed By: #### CBCA, BMP #### [facility] ([id number]) [address] [place] [address] 31091Skmneorjv/100 WBC (Bld)1.0 %NormalTriHealth Comment on above:Performed By: #### CBCA, BMP #### [facility] ([id number]) [address] [place] [address] 12993Jftvtkhjgaz (Bld) [#/Vol]0.1 10*3/uLNormal0.0-0.4TriHealthComment on above:Performed By: #### CBCA, BMP #### [facility] ([id number]) [address] [place] [address] 15694Jpvkfbxpzbj/100 WBC (Bld)5.0 %NormalTriHealth Comment on above:Performed By: #### CBCA, BMP #### [facility] ([id number]) [address] [place] [address] 55537Wblnwmlwhzy distribution width (RBC) [Ratio]13.4 %Normal 11.5-15.0TriHealthComment on above:Performed By: #### CBCA, BMP #### [facility] ([id number]) [address] [place] [address] 86949Mxwdymdaul (Bld) [Volume fraction]40.0 %Gshlnl06-36RkeXuuwcfHca Houston Healthcare KingwoodComment on above:Performed By: #### CBCA, BMP #### [facility] ([id number]) [address] [place] [address] 02478Ymhegbrsno (Bld) [Mass/Vol]13.2 g/mGBegwzg25.7-15.5PRegency Hospital CompanyComment on above:Performed By: #### CBCA, BMP #### [facility] ([id number]) [address] [place] [address] 22748YOFBTTMNBF, ATYPICAL1.0 %NormalTriHealth Comment on above:Performed By: #### CBCA, BMP #### [facility] ([id number]) [address] [place] [address] 81687Tgjsgzcpawl (Bld) [#/Vol]1.2 10*3/uLNormal1.0-3.5PRegency Hospital CompanyComment on above:Performed By: #### CBCA, BMP #### [facility] ([id number]) [address] [place] [address] 41409Iuyxvuhrxzz/100 WBC (Bld)40.0 %[facility] Comment on above:Performed By: #### CBCA, BMP #### [facility] ([id number]) [address] [place] [address] 00273LMW (RBC) [Entitic mass]28.9 icQvzkrg03-37MzmIdwrevTriHealthComment on above:Performed By: #### CBCA, BMP #### [facility] ([id number]) [address] [place] [address] 20933XNKU (RBC) [Mass/Vol]33.1 g/zIRyiatc54-84QdkZarijtTriHealthComment on above:Performed By: #### CBCA, BMP #### [facility] ([id number]) [address] [place] [address] 83912IGJ (RBC) [Entitic vol]87 sIKrlimv50-307EyhCtybyiTriHealthComment on above:Performed By: #### CBCA, BMP #### [facility] ([id number]) [address] [place] [address] 34796Zrfdqajck (Bld) [#/Vol]0.3 10*3/uLNormal0-0.9TriHealthComment on above:Performed By: #### MANJEET, BMP #### [facility] ([id number]) [address] [place] [address] 81206Opccqqmmu/100 WBC (Bld)11.0 %NormalProHca [facility] Healthcare [facility] Comment on above:Performed By: #### MANJEET, BMP #### [facility] ([id number]) [address] [place] [address] 58753Ujwiyqzzvwj (Bld) [#/Vol]1.3 10*3/uLLow1.5-6.6TriHealthComment on above:Performed By: #### MANJEET, BMP #### [facility] ([id number]) [address] [place] [address] 52465Tclefogt mean volume (Bld) [Entitic vol]7.7 fLNormal7-12 TriHealthComment on above:Performed By: #### MANJEET, BMP #### [facility] ([id number]) [address] [place] [address] 43612Upqkcxxts (Bld) [#/Vol]240 10*3/mPDspjbf815-980YgtMclmxu [facility]remont HospitalComment on above:Performed By: #### MANJEET, BMP #### [facility] ([id number]) [address] [place] [address] 37221JDU COUNT4.59 X10E12/LNormal3.80-5.20[facility] Comment on above:Performed By: #### CBCNoé, BMP #### [facility] ([id number]) [address] [place] [address] 33872SJB morphology finding Nom (Bld)NORMALNormalProHca Houston Healthcare KingwoodComment on above:Performed By: #### MANJEET, BMP #### [facility] ([id number]) [address] [place] [address], [place] [address]GAX IXAANNVJEP80.0 %NormalProHca Houston Healthcare KingwoodComment on above:Performed By: #### MANJEET, BMP #### [facility] ([id number]) [address] [place] [address], [place] [address]YIS (Bld) [#/Vol]2.9 10*3/uLLow4.0-11.0ProHca Houston Healthcare KingwoodComment on above:Performed By: #### MANJEET, BMP #### [facility] ([id number]) [address] [place] [address] 09049UVQJGQMVWBSIS METABOLIC PANELon 23-18-6574Sjiubsv [Mass/Vol]4.2 g/dLNormal3.2-5.3ProMedBroadway Community HospitalComment on above:Performed By: #### MANJEET, BMP #### [facility] ([id number]) [address] [place] [address], [place] [address]KYV [Catalytic activity/Vol]55 U/TMdmlte79-403XfuUwbxhnTriHealthComment on above:Performed By: #### MANJEET, BMP #### [facility] ([id number]) [address] [place] [address], [place] [address]IPB [Catalytic activity/Vol]22 U/LNormal0-31PRegency Hospital CompanyComment on above:Performed By: #### CBCNoé, BMP #### [facility] ([id number]) [address] [place] [address], [place] [address]Husen gap [Moles/Vol]7 mmol/LNormal5-15ProHca Houston Healthcare KingwoodComment on above:Performed By: #### CBCNoé, BMP #### [facility] ([id number]) [address] [place], [place] [address]DDG [Catalytic activity/Vol]18 U/LNormal0-41TriHealthComment on above:Performed By: #### MANJEET, BMP #### [facility] ([id number]) [address] [place] [address], [place] [address]Avssqkurc [Mass/Vol]1.3 mg/dLHigh0.3-1.2PRegency Hospital CompanyComment on above:Performed By: #### MANJEET, BMP #### [facility] ([id number]) [address] [place] [address], [place] [address]Vqoozno [Mass/Vol]8.7 mg/dLNormal8.5-10.5PRegency Hospital CompanyComment on above:Performed By: #### MANJEET, BMP #### [facility] ([id number]) [address] [place] [address], [place] [address]Bjqfzdbj [Moles/Vol]105 mmol/VYkhdmu97-726DnrFtakynHca Houston Healthcare KingwoodComment on above:Performed By: #### MANJEET, BMP #### [facility] ([id number]) [address] [place] [address], [place] [address]QE8 [Moles/Vol]23 mmol/PDrumxw58-05IozFnlukvRegency Hospital Company Comment on above:Performed By: #### MANJEET, BMP #### [facility] ([id number]) [address] [place] [address], [place] [address]Jyjlzfffcg [Mass/Vol]0.78 mg/dLNormal0.40-1.00ProHca Houston Healthcare KingwoodComment on above:Result Comment: METHOD TRACEABLE TO IDMS STANDARD Performed By: #### MANJEET, BMP #### [facility] ([id number]) [address] [place] [address], [place] [address]nMYV (CKD-EPI) NON-RACE DEPENDENT>90Normal>59ProHca Houston Healthcare KingwoodComment on above:Result Comment: Reported eGFR is based on the CKD-EPI 2020 equation that does not use a race coefficient.Performed By: #### MANJEET, BMP #### [facility] ([id number]) [address] [place] [address] 88219Jehnhyr [Mass/Vol]92 mg/zWTejcwf91-16MwnEohhunTriHealth Comment on above:Performed By: #### MANJEET, BMP #### [facility] ([id number]) [address] [place] [address] 48580Uksbwysud [Moles/Vol]3.5 mmol/LNormal3.5-5.0ProHca Houston Healthcare KingwoodComment on above:Performed By: #### MANJEET, BMP #### [facility] ([id number]) [address] [place] [address] 11497Odbmpud [Mass/Vol]7.1 g/dLNormal6.0-8.0ProHca [facility] Healthcare KingwoodComment on above:Performed By: #### MANJEET, BMP #### [facility] ([id number]) [address] [place] [address] 04134Npszat [Moles/Vol]135 mmol/GAxfhhv147-909NvwMaodib [facility]remont HospitalComment on above:Performed By: #### MANJEET, BMP #### [facility] ([id number]) [address] [place] [address] 94971Shgl nitrogen [Mass/Vol]12 mg/dLNormal5-23ProHca Houston Healthcare KingwoodComment on above:Performed By: #### MANJEET, BMP #### [facility] ([id number]) [address] [place] [address] 03517YW BRAIN WO CONT STROKE ALERTon 14-81-7977QL BRAIN WO CONT STROKE ALERTCT BRAIN WO CONT STROKE ALERT CT BRAIN [...] by Rudi Story MD on 05/31/2024 11:15 [facility] CT CTA CAROTIDon 94-78-0597GD CTA CAROTIDCT CTA CAROTID CT CTA CAROTID HISTORY: Left-sided [...] carotid artery share a common origin. Left vertebralartery arises directly off of left aorta. Brachiocephalic [...] dilatation, dissection, or occlusion of the carotids ormajor arteries of the neck. * Incidentally noted high engagement of the right vertebral artery. Approved by Resident: Yahir Gutierrez MD on 05/31/2024 11:22 AM I, Rudi Story MD have personally reviewed the image(s) and agree with and/or edited the report Finalized by Rudi Story MD on 05/31/2024 11:39 [facility] CT CTA HEADon [id number] CTA HEADCT CTA HEAD CT CTA HEAD CLINICAL HISTORY: TIA. COMPARISON: Head CT same day. TECHNIQUE: Axial CT images were obtained through the head following the uneventful administration of intravenous contrast. Sagittal and coronal reformatted images were performed. MIP and volume rendered images were also post processed at a separate workstation to further define anatomy and potential pathology. 100 mL of Odujwotit077 intravenous contrast without complication. Arterial blood flow was measuredto assist the stroke clinical team in the [...] by Rudi Story MD on 05/31/2024 11:23 AMNormalTriHealth Fibrin D-dimer DDU (PPP) [Mass/Vol]on 05-31-2024D ZWEHM191 ng/mL DDUNormal<255 TriHealthComment on above:Result Comment: Results <255 ng/mL DDU: The presence of a VTE can safely be excluded with a negative D-Dimer result and Wells score. A negative result doesn't exclude the possibility of DIC. The test be repeated along with other diagnostic tests if the patient's symptoms persist or worsen. [email or web address] By: #### MANJEET, BMP #### [facility] ([id number]) [address] [place] [address] 54369WQBBRIJHIne 82-84-7291Oqnjjnoab [Mass/Vol]2.1 mg/dLNormal 1.8-2.6TriHealthComment on above:Performed By: #### MANJEET, BMP #### [facility] ([id number]) [address] [place] [address] 36496Mzxysgzq I.cardiac High sensitivity method [Mass/Vol]on HOUR TROP I, HIGH SENSITIVITY2 ng/LNormal<16ProMedica Kindred HospitalComment on above:Performed By: #### 65055-7 ####[facility] ([id number])[address] [place] [address] 89723WYPHVMTR I, HIGH SENSITIVITY2 ng/LNormal<16ProMedica Kindred HospitalComment on above: Performed By: #### JAMES BURROUGHS, 77766-7, 20520-8, 78864-0 ####[facility] ([id number])[address] [place] [address] 01284Ueshdkr Handouton 22-47-1300Jikhjmp Handout [id number]#1.00OTMarion Hospital Patient [id number]#1.00OTAshtabula County Medical CenterTroponin I.cardiac High sensitivity method [Mass/Vol]on HOUR TROP I, HIGH SENSITIVITY4 ng/LNormal<16ProMedica Kindred HospitalComment on above:Performed By: #### MANJEET, BMP #### [facility] ([id number]) [address] [place] [address] 96172MFD AND AUTO DIFFon 09-89-2025FZOJIQWZ BASOPHIL0.1 X10E9/L Normal0.0-0.2ProMedica Kindred HospitalComment on above:Performed By: #### MANJEET CMP, 08836-4, 62604-1 #### [facility] ([id number]) [address] [place] [address] 59073UUBNPCLB NEUTROPHIL2.1 X10E9/LNormal1.5-6.6ProMedica Mercedes HospitalComment on above:Performed By: #### MANJEET, JAMES, 27351-0, 66481-7 #### [facility] ([id number]) [address] [place] [address] 92688Svfljsjfx/100 WBC (Bld)1.1 %[facility] Comment on above:Performed By: #### CBCNoé, JAMES, 98478-0, 96323-1 #### [facility] ([id number]) [address] [place] [address] 13903Tiosonintqt (Bld) [#/Vol]0.1 10*3/uLNormal0.0-0.4TriHealthComment on above:Performed By: #### JAMES BURROUGHS, 68180-7, 10557-0 #### [facility] ([id number]) [address] [place] [address] 99172Yzwvxsvitqz/100 WBC (Bld)2.8 %NormalTriHealth Comment on above:Performed By: #### MANJEET, JAMES, 13408-4, 22951-1 #### [facility] ([id number]) [address] [place] [address] 96031Whyhlkfdwei distribution width (RBC) [Ratio]13.1 %Normal 11.5-15.0ProHca Houston Healthcare KingwoodComment on above:Performed By: #### CBCA, CMP, 09095-5, 39603-3 #### [facility] ([id number]) [address] [place] [address] 98954Utmaxdcort (Bld) [Volume fraction]38.3 %Xhwrzd75-25ExrRpuaqdHca Houston Healthcare KingwoodComment on above:Performed By: #### MANJEET, CMP, 47555-7, 05964-5 #### [facility] ([id number]) [address] [place] [address] [place] [address]Qyiruklphu (Bld) [Mass/Vol]12.9 g/zOQyomyr69.7-15.5PKindred Hospital - Denver South HospitalComment on above:Performed By: #### MANJEET, CMP, 47868-6, 30370-2 #### [facility] ([id number]) [address] [place] [address] 85619Wzwcijmdsvk (Bld) [#/Vol]2.0 10*3/uLNormal1.0-3.5PRegency Hospital CompanyComment on above:Performed By: #### JAMES BURROUGHS, 63286-5, 45071-8 #### [facility] ([id number]) [address] [place] [address] 98239Edejgrbjatn/100 WBC (Bld)41.2 %NormalProHca [facility] Healthcare [facility] Comment on above:Performed By: #### MANJEET, CMP, 40001-3, 08830-6 #### [facility] ([id number]) [address] [place] [address] 69269KPV (RBC) [Entitic mass]29.4 ixZwmgoq74-76FkcAthexwHca Houston Healthcare KingwoodComment on above:Performed By: #### MANJEET, JAMES, 06784-2, 03895-1 #### [facility] ([id number]) [address] [place] [address] 97052NBVG (RBC) [Mass/Vol]33.7 g/iCVtxidk48-39SugWxxzboHca Houston Healthcare KingwoodComment on above:Performed By: #### CBCNoé, CMP, 40337-7, 17487-7 #### [facility] ([id number]) [address] [place] [address] 47883GBP (RBC) [Entitic vol]87 qRAtsdbl51-112MqpSgremn Fremont HospitalComment on above:Performed By: #### CBCNoé, CMP, 17234-8, 94493-4 #### [facility] ([id number]) [address] [place] [address] 77943Ukwlxhvfj (Bld) [#/Vol]0.5 10*3/uLNormal0-0.9TriHealthComment on above:Performed By: #### CBCNoé, CMP, 91855-1, 32640-7 #### [facility] ([id number]) [address] [place] [address] 07418Jvogrrzyb/100 WBC (Bld)10.2 %NormalTriHealth Comment on above:Performed By: #### CBCNoé, CMP, 36447-0, 19236-1 #### [facility] ([id number]) [address] [place] [address] 98270Cfeorenbjnf/100 WBC (Bld)44.7 %NormalTriHealth Comment on above:Performed By: #### MANJEET, CMP, 75332-0, 08457-4 #### [facility] ([id number]) [address] [place] [address] 01858Wjtflacs mean volume (Bld) [Entitic vol]7.5 fLNormal7-12 TriHealthComment on above:Performed By: #### CBCNoé, CMP, 38934- 5, 66142-0 #### [facility] ([id number]) [address] [place] [address] 77191Utntgyqwv (Bld) [#/Vol]261 10*3/rAEmbptu597-856OipIzyolp [facility]remont HospitalComment on above:Performed By: #### CBCA, CMP, 84043-5, 62500-0 #### [facility] ([id number]) [address] [place] [address] 03210KIM COUNT4.40 X10E12/LNormal3.80-5.20[facility] Comment on above:Performed By: #### JAMES BURROUGHS, 55856-1, 82352-1 #### [facility] ([id number]) [address] [place] [address] 28474OIC (Bld) [#/Vol]4.7 10*3/uLNormal4.0-11.0ProHca Houston Healthcare KingwoodComment on above:Performed By: #### JAMES BURROUGHS, 65338-1, 16965-7 #### [facility] ([id number]) [address] [place] [address] 41834JUMBFIYYFNXHU METABOLIC PANELon 73-13-9029Suqynje [Mass/Vol]4.4 g/dLNormal3.2-5.3PRegency Hospital CompanyComment on above:Performed By: #### JAMES BURROUGHS, 39636-4, 65077-9 #### [facility] ([id number]) [address] [place] [address] 50447JEI [Catalytic activity/Vol]54 U/HPlsghq12-112OqyTzxfsxHca Houston Healthcare KingwoodComment on above:Performed By: #### JAMES BURROUGHS, 75146-0, 43955-9 #### [facility] ([id number]) [address] [place] [address] 81721ZFY [Catalytic activity/Vol]20 U/LNormal0-31PRegency Hospital CompanyComment on above:Performed By: #### JAMES BURROUGHS, 89648-0, 14736-1 #### [facility] ([id number]) [address] [place] [address] 13291Rahfw gap [Moles/Vol]8 mmol/LNormal5-15ProHca Houston Healthcare KingwoodComment on above:Performed By: #### JAMES BURROUGHS, 28834-1, 88304-1 #### [facility] ([id number]) [address] [place] [address], [place] [address]HNN [Catalytic activity/Vol]17 U/LNormal0-41ProHca Houston Healthcare KingwoodComment on above:Performed By: #### JAMES BURROUGHS, 40443-1, 49733-3 #### [facility] ([id number]) [address] [place] [address], [place] [address]Xcriwoxxp [Mass/Vol]1.0 mg/dLNormal0.3-1.2PRegency Hospital CompanyComment on above:Performed By: #### JAMES BURROUGHS, 11510-5, 14275-1 #### [facility] ([id number]) [address] [place] [address], [place] [address]Vklyqlp [Mass/Vol]8.7 mg/dLNormal8.5-10.5PRegency Hospital CompanyComment on above:Performed By: #### JAMES BURROUGHS, 02388-2, 35119-9 #### [facility] ([id number]) [address] [place] [address], [place] [address]Qveytbfj [Moles/Vol]105 mmol/LRcxicc59-673CnmNkcwwoTriHealthComment on above:Performed By: #### JAMES BURROUGHS, 39130-2, 31925-2 #### [facility] ([id number]) [address] [place] [address], [place] [address]OG3 [Moles/Vol]25 mmol/APhyiyg31-52JiyWcwaojRegency Hospital Company Comment on above:Performed By: #### JAMES BURROUGHS, 12371-3, 74269-8 #### [facility] ([id number]) [address] [place] [address], [place] [address]Oufzlokgon [Mass/Vol]0.69 mg/dLNormal0.40-1.00ProHca Houston Healthcare KingwoodComment on above:Result Comment: METHOD TRACEABLE TO IDMS STANDARD Performed By: #### JAMES BURROUGHS, 00434-4, 25286-7 #### [facility] ([id number]) [address] [place] [address] 28017lXVK (CKD-EPI) NON-RACE DEPENDENT>90Normal>59ProHca Houston Healthcare KingwoodComment on above:Result Comment: Reported eGFR is based on the CKD-EPI 2021 equation that does not use a race coefficient.Performed By: #### JAMES BURROUGHS, 36645-9, 53155-2 #### [facility] ([id number]) [address] [place] [address] 38788Yidfhsf [Mass/Vol]91 mg/hZUgcieu10-32PcpWhnbgwTriHealth Comment on above:Performed By: #### JAMES BURROUGHS, 58453-0, 59034-7 #### [facility] ([id number]) [address] [place] [address] 22719Pchmzqgcx [Moles/Vol]2.9 mmol/LLow3.5-5.0ProHca Houston Healthcare KingwoodComment on above:Performed By: #### JAMES BURROUGHS, 14296-4, 99958-4 #### [facility] ([id number]) [address] [place] [address] 18310Ovlfilu [Mass/Vol]7.3 g/dLNormal6.0-8.0ProHca Houston Healthcare KingwoodComment on above:Performed By: #### JAMES BURROUGHS, 99394-1, 26916-7 #### [facility] ([id number]) [address] [place] [address] 97395Sgwirm [Moles/Vol]138 mmol/BBixbml234-530MtzUbblrj [facility]remont HospitalComment on above:Performed By: #### JAMES BURROUGHS, 98751-9, 40421-9 #### [facility] ([id number]) [address] [place] [address] 22492Fgig nitrogen [Mass/Vol]12 mg/dLNormal5-23TriHealthComment on above:Performed By: #### MANJEET CMP, 60208-8, 23418-4 #### [facility] ([id number]) [address] [place] [address] 66834Sncpce D-dimer DDU (PPP) [Mass/Vol]on 02-14-2024 DIMER<150 Normal<255TriHealthComment on above:Result Comment: Results <255 ng/mL DDU: The presence of a VTE can safely be excluded with a negative D-Dimer result and Wells score. A negative result doesn't exclude the possibility of DIC. The test be repeated along with other diagnostic tests if the patient's symptoms persist or worsen. [email or web address] By: #### MANJEET CMP, 93876-3, 18050-4 #### [facility] ([id number]) [address] [place] [address] 67200Geaarvzq I.cardiac High sensitivity method [Mass/Vol]on 13-24-3081NPOEVSLW I, HIGH SENSITIVITY3 ng/LNormal<16[facility] Comment on above:Performed By: #### CBCA, BMP #### [facility] ([id number]) [address] [place] [address] 50857AM CHEST 1 VWon 60-44-5093DU CHEST 1 VWXR CHEST 1 VW Single view chest History: Difficulty breathing, shortness of breath Comparison: 01/25/2018 Impression: No acute pulmonary process. No pneumothorax or pleural effusion. Nonenlarged heart. Finalized by Steven Saleh MD on 02/14/2024 11:37 PMNormalTriHealthXR CERVICAL SPINE AP/LAT/FLEX/EXT/OBLIQUESon 81-23-0506RP CERVICAL SPINE AP/LAT/FLEX/EXT/OBLIQUESCervical spine with flexion-extension. FINDINGS: Cervical vertebral bodies are normal in height and alignment on flexion, extension, and neutral position. Loss of cervical lordosis. No prevertebral soft tissue swelling. Diffuse disc space narrowingC4-5 and C5-6 with anterior osteophytes at the base of C5 and C6. No fracture, dislocation, or bonelesion. IMPRESSION: Moderate degenerative change lower cervical spine. Loss of cervical lordosis may be secondary to degenerative change, muscle spasm, or patient position. ELECTRONICALLY SIGNED BY: Rhina Ivy AvailableXR SHOULDER 2+ VIEWS LEFTon 40-50-5111EA SHOULDER 2+ VIEWS LEFTLeft shoulder. FINDINGS: No fracture, dislocation, bone lesion. Joint spaces maintained. IMPRESSION: Negative left shoulder. ELECTRONICALLY SIGNED BY: Rhina Ivy AvailableBASIC METABOLIC PANLon 82-28-5137Vpeqf gap [Moles/Vol]8 mmol/LNormal5-15ProHca Houston Healthcare KingwoodComment on above:Performed By: #### THANIA BURROUGHS #### [facility] ([id number]) [address] [place] [address] 90642Llettie [Mass/Vol]9.1 mg/dLNormal8.5-10.5PRegency Hospital CompanyComment on above:Performed By: #### MANJEET, BMP #### [facility] ([id number]) [address] [place] [address] 26970Agyjseii [Moles/Vol]104 mmol/WGqrpzi42-505SafBktyomHca Houston Healthcare KingwoodComment on above:Performed By: #### MANJEET, BMP #### [facility] ([id number]) [address] [place] [address] 57924ZP5 [Moles/Vol]24 mmol/QJrjfha44-58EkkEfgxqtRegency Hospital Company Comment on above:Performed By: #### MANJEET, BMP #### [facility] ([id number]) [address] [place] [address] 61741Tlduquozjg [Mass/Vol]1.05 mg/dLHigh0.40-1.00TriHealthComment on above:Result Comment: METHOD TRACEABLE TO IDMS STANDARD Performed By: #### MANJEET, BMP #### [facility] ([id number]) [address] [place] [address] 27720BZV/1.73 sq M.predicted among non-blacks MDRD (S/P/Bld) [Vol rate/Area]67 mL/min/{1.73_m2}Normal>59ProHca Houston Healthcare KingwoodComment on above:Result Comment: Reported eGFR is based on the CKD-EPI 2020 equation that does not use a race coefficient.Performed By: #### MANJEET, BMP #### [facility] ([id number]) [address] [place] [address] 00258Qiwpzgs [Mass/Vol]85 mg/kBXzndch71-30VfcQwaozaTriHealth Comment on above:Performed By: #### MANJEET, BMP #### [facility] ([id number]) [address] [place] [address] 34551Wogpnjleq [Moles/Vol]3.3 mmol/LLow3.5-5.0ProHca Houston Healthcare KingwoodComment on above:Performed By: #### MANJEET, BMP #### [facility] ([id number]) [address] [place] [address] 80126Elkvgp [Moles/Vol]136 mmol/VGpxmce852-232KrwQhdygk [facility]remont HospitalComment on above:Performed By: #### MANJEET, BMP #### [facility] ([id number]) [address] [place] [address] 54431Vrxr nitrogen [Mass/Vol]15 mg/dLNormal5-23ProHca Houston Healthcare KingwoodComment on above:Performed By: #### MANJEET, BMP #### [facility] ([id number]) [address] [place] [address] 00689BDT AND AUTO DIFFon 97-67-3882EYCTVXVJ BASOPHIL0.0 X10E9/L Normal0.0-0.2PRegency Hospital CompanyComment on above:Performed By: #### CBCA, BMP #### [facility] ([id number]) [address] [place] [address] 12112HAZDHNFS NEUTROPHIL4.7 X10E9/LNormal1.5-6.6TriHealthComment on above:Performed By: #### CBCA, BMP #### [facility] ([id number]) [address] [place] [address] 77998Afqasjpjm/100 WBC (Bld)0.6 %[facility] Comment on above:Performed By: #### CBCA, BMP #### [facility] ([id number]) [address] [place] [address] 91525Jyspzdfqbzg (Bld) [#/Vol]0.3 10*3/uLNormal0.0-0.4TriHealthComment on above:Performed By: #### CBCA, BMP #### [facility] ([id number]) [address] [place] [address] 92698Dstlgymkxuq/100 WBC (Bld)3.5 %NormalTriHealth Comment on above:Performed By: #### CBCA, BMP #### [facility] ([id number]) [address] [place] [address] 22953Fpfckdcqkzi distribution width (RBC) [Ratio]13.1 %Normal 11.5-15.0TriHealthComment on above:Performed By: #### CBCA, BMP #### [facility] ([id number]) [address] [place] [address] 68163Vffdtxbznv (Bld) [Volume fraction]37.9 %Zdgmuw36-16UbgEuvpcmHca Houston Healthcare KingwoodComment on above:Performed By: #### CBCA, BMP #### [facility] ([id number]) [address] [place] [address] 60818Dzplmhqsfl (Bld) [Mass/Vol]12.8 g/kZZmsqxt76.7-15.5PRegency Hospital CompanyComment on above:Performed By: #### CBCA, BMP #### [facility] ([id number]) [address] [place] [address] 98271Gsrhjqlhnha (Bld) [#/Vol]1.8 10*3/uLNormal1.0-3.5PRegency Hospital CompanyComment on above:Performed By: #### CBCA, BMP #### [facility] ([id number]) [address] [place] [address] 00696Zhdzoukwbhf/100 WBC (Bld)24.1 %NormalTriHealth Comment on above:Performed By: #### CBCA, BMP #### [facility] ([id number]) [address] [place] [address] 40444UDF (RBC) [Entitic mass]30.0 obNbwaco77-52JpuZvtbyoTriHealthComment on above:Performed By: #### CBCA, BMP #### [facility] ([id number]) [address] [place] [address] 79825ISRL (RBC) [Mass/Vol]33.7 g/hDGzwudw20-10RrdCytsjpHca Houston Healthcare KingwoodComment on above:Performed By: #### CBCA, BMP #### [facility] ([id number]) [address] [place] [address] 88069GOT (RBC) [Entitic vol]89 mERmcbaj94-708OpgUksgjpTriHealthComment on above:Performed By: #### CBCA, BMP #### [facility] ([id number]) [address] [place] [address] 63761Isgndbocj (Bld) [#/Vol]0.7 10*3/uLNormal0-0.9TriHealthComment on above:Performed By: #### CBCNoé, BMP #### [facility] ([id number]) [address] [place] [address] 79429Nrjyneyoe/100 WBC (Bld)9.3 %NormalTriHealth Comment on above:Performed By: #### CBCNoé, BMP #### [facility] ([id number]) [address] [place] [address] 37047Nqmaamguaof/100 WBC (Bld)62.5 %[facility] Comment on above:Performed By: #### CBCNoé, BMP #### [facility] ([id number]) [address] [place] [address] 31356Uwlxeiyt mean volume (Bld) [Entitic vol]7.3 fLNormal7-12 TriHealthComment on above:Performed By: #### CBCNoé, BMP #### [facility] ([id number]) [address] [place] [address] 88436Mcgdyrxhp (Bld) [#/Vol]262 10*3/zRVfovot345-669FklJxtzqw [facility]ont HospitalComment on above:Performed By: #### CBCNoé, BMP #### [facility] ([id number]) [address] [place] [address] 60008SIH COUNT4.26 X10E12/LNormal3.80-5.20[facility] Comment on above:Performed By: #### CBCA, BMP #### [facility] ([id number]) [address] [place] [address] 44383MRZ (Bld) [#/Vol]7.5 10*3/uLNormal4.0-11.0TriHealthComment on above:Performed By: #### CBCA, BMP #### [facility] ([id number]) [address] [place], [place] [address]OHTPEKHJL/GC PCR, Uon 04-84-5437WIGSUXTHR/GC PCR, USPECIMEN SOURCE CLEAN CATCH MIDSTREAM URINE CHLAMYDIA DNA(PCR) Negative (qualifier value) Chlamydia trachomatis not detected by nucleic acid amplification. This does not exclude the possibility of infection because results are dependent on adequate specimen collection. GONORRHOEAE DNA(PCR) Negative (qualifier value) Neisseria gonorrhoeae not detected by nucleic acid amplification. This does not exclude the possibility of infection because results are dependent on adequate specimen collection.[facility] Comment on above:Performed By: #### CGU #### [facility] ([id number]) [address] [place] [address] [facility] ([id number]) [address], [address] [place], [place] [address]XS ABDOMEN AND PELVIS WO CONTon 01-50-9640XM ABDOMEN AND PELVIS WO CONTCT ABDOMEN AND PELVIS WO CONT CLINICAL INFORMATION: [...] by Alvin Dey MD on 10/19/2023 1:18 AMNOhioHealth Marion General HospitalTRICHOMONAS PCRon 80-07-9946SHFTTJWVHLH PCRSPECIMEN SOURCE CLEAN CATCH MIDSTREAM URINE TRICHOMONAS PCR Not detected (qualifier value) Trichomonas vaginalis not detected NOTE Assay methodology is nucleic acid amplification by real-time PCR for detection of Trichomonas vaginalis DNA performed on [employer] GeneXpert Instrument System.NormalProHca Houston Healthcare KingwoodComment on above:Performed By: #### TRKPCR #### [facility] ([id number]) [address] [place] [address] [facility] ([id number]) [address] [place] [address], [address] [place], [place] [address]QCXCYMJTXRds 37-73-7719Ecvegsmkx Ql (U)NegativeNormalNEG ProMrandolph medical centera Kindred HospitalComment on above:Performed By: #### UA #### [facility] ([id number]) [address] [place] [address] 11235ANDIH/HGBMODERATEAbnormalNEGTriHealthComment on above:Performed By: #### UA #### [facility] ([id number]) [address] [place] [address] 76656Fkjhs (U)YELLOWNormalYELLOWTriHealthComment on above:Performed By: #### UA #### [facility] ([id number]) [address] [place] [address] 38806Mmonxxk Ql (U)NegativeNormalNEGTriHealth Comment on above:Performed By: #### UA #### [facility] ([id number]) [address] [place] [address] 95577Bclqnyl Ql (U)NegativeNormalNEGTriHealth Comment on above:Performed By: #### UA #### [facility] ([id number]) [address] [place] [address] 66159Cybzyuizh esterase Test strip Ql (U)SMALLAbnormalNEGTriHealthComment on above:Performed By: #### UA #### [facility] ([id number]) [address] [place] [address] 21404Ytbsxoi Ql (U)NegativeNormalNEGTriHealth Comment on above:Performed By: #### UA #### [facility] ([id number]) [address] [place] [address] 00812fV (U)6.0 [pH]Normal5.0-8.5PRegency Hospital CompanyComment on above:Performed By: #### UA #### [facility] ([id number]) [address] [place] [address] 16790Qsoxapc Ql (U)TraceAbnormalNEGTriHealthComment on above:Performed By: #### UA #### [facility] ([id number]) [address] [place] [address] 42035U.B.CELLS4 /hpfNormal0-5PRegency Hospital CompanyComment on above:Performed By: #### UA #### [facility] ([id number]) [address] [place] [address] 77970Pftqfnpn gravity (U) [Rel density]1.289Drypun0.003-1.035 [facility] Kindred HospitalComment on above:Performed By: #### UA #### [facility] ([id number]) [address] [place] [address] 62113ZZGANUZN EPITHELIUM4 /hpfNormal0-5PRegency Hospital Company Comment on above:Performed By: #### UA #### [facility] ([id number]) [address] [place] [address] 84477MABWRVKCGFTH EPITH1 /skgIvfx6VxeVfwgxfHca Houston Healthcare KingwoodComment on above:Performed By: #### UA #### [facility] ([id number]) [address] [place] [address] 69143PMCOSCNGVCSKSYAvtdfdKEIFRUbzKxlzkr [facility] HospitalComment on above:Performed By: #### UA #### [facility] ([id number]) [address] [place] [address], [place], [place] [address]Kbpblbrklgal Qn (U)0.2 {Del'U}/dLNormal<1.1PRegency Hospital CompanyComment on above:Performed By: #### UA #### [facility] ([id number]) [address] [place] [address] 93619V.B.CELLS6 /hpfHigh0-5PRegency Hospital CompanyComment on above:Performed By: #### UA #### [facility] ([id number]) [address] [place] [address] 38137BNLOM CULTUREon 07-61-0071Yuovqybq identified Cx Nom (U)CULTURE RESULTS 10-50,000 ORGANISMS/mL NORMAL UROGENITAL FLORANormalProNorwalk Memorial Hospitalca [facility] Comment on above:Performed By: #### 630-4 #### [facility] ([id number]) [address] [place] [address], [address] [place], [place] [address]Kwjncda Educationon 88-19-1430Cspjkra EducationObstetrics and Gynecology Kegel Exercises Kegel exercises can [...] muscles. These are the same muscles you squeezewhen you try to stop the flow of [...] provider. Document Revised: 08/17/2021 Document Reviewed: 08/17/2021 [employer] Patient Education ? 2022 beqom.[facility] Office/Clinic Noteon 86-32-8444Lpysuip Office/Clinic NoteChief Complaint F/U to Cysto HPI Staff Last seen in our office 10/30/22 by JOE as a referral due to Microscopic Hematuria, Flank pain & Mixed Incontinence. Pt. was not able to give a urine sample today. S/P Cysto/UD by PRW 11/13/22 *Macrobid 100mg qd s36uear given post op Renal US 11/13/22 Dysuria: [...] Cysto/UD by PRW 11/13/22 *Macrobid 100mg qd x19wovc given post op Pt states she is [...] Contact Information FRED DUNCAN, AMELIE Ch, URL [address] [place] [address] Additional Instructions: PRN Patient Education Jacky Ruano [...] (02/15/2022). Medications amoxicillin, BID, Not taking nitrofurantoin macrocrystals-monohydrate 100 mg Cap topiramate, Oral, BID Allergies No Known Allergies Social History Alcohol - Low Risk, 10/30/2022 Tobacco Former smoker, quit more than 30 days ago Tobacco Use:. Cigars, 01/08/2023 Family History Alcoholism: Father. Arthritis: Mother. Cancer: Mother. Diabetes mellitus: Father. Liver disease: Father. Migraine: Mother. Parkinsons disease: Father.White HospitalComment on above: Result Comment: Electronically Signed By: AMELIE ESPARZA PA-C\.br\Date and Time Signed: 01/08/2315:16 EDT\.br\Electronically Co-Signed By: Lamar Estrada\.br\Date and Time Co-Signed: 01/08/23 15:11 EDTLab Reportson 11-26-2022 Lab [id number]#1.00CD:127NoKe[facility] Reports [id number]#1.00CD:127[facility] [id number]#1.00CD:127[facility] [id number]#1.00CD:127[facility] [id number]#1.00CD:[facility] CenterRAD - Ultrasound Reporton 28-84-1929ZSF - Ultrasound [id number]#1.00CD:[facility]ty[facility] HospitalOperative Reporton 35-98-3762Hnbtrmwto Report [id number]#1.00CD:[facility]tyWhite HospitalProvider Letteron 65-30-2836Eocafjod Letter November 14, 2022 NEEL GARCIA [address] [place] [address] : 1980 To Whom It May Concern, Please excuse above patient to be allowed to use the bathroom every 2-3 hours and as needed. Date of request From: 11/13/2022 To: 11/14/2023 May Return to Work On:N/A Restrictions: N/A Comments: Please allow patient to use the bathroom every 2-3 hours as needed daily. She is under mycare for urological issues. Sincerely, Constantino Martinez M.D., F.A.C.S. [facility] [address] [place], [place] [id number] NoUniversity Hospitals Elyria Medical CenterRAD - Ultrasound Reporton 81-78-7318VJP - Ultrasound Report [id number]#1.00CD:[facility]tyWhite HospitalPhysician Referralon 65-79-9148Nszoibibc Referral [id number]#1.00CD:[address] [place], [place] [address]creenson 49-22-3490Cpsxnal [id number]#1.00CD:[address] [place], [place] [address]Pre-Certification Formon 54-96-3804Oew-Certification Form [id number]#1.00CD:127White HospitalAmbulatory Visit Summaryon 39-28-7838Mtwggrxuns Visit Summary NEEL GARCIA :1980 Visit Date:10/30/2022 [...] AMELIE ESPARZA PA-C [facility]Cons[facility] Procedure/Surgeryon 26-54-5378Izqfuif for Procedure/[id number]#1.00CD:[address] [place], [place] [address]HERPES SIMPLEX VIRUS (HSV) CULTUREon 61-49-5921GKE Culture/TypeCommentNoTrumbull Regional Medical CenterComment on above:Result Comment: Negative No Herpes simplex virus isolated.Performed By: #### INFLUAB #### [facility] [address] [place] [address] Dr. Cherie Clayton AUTO DIFFon 69-80-3443QRVM #0.1 103/ulNormal0.0-0.1The [facility] Berger HospitalComment on above:Performed By: #### INFLUAB #### [facility] [address] [place] [address] Dr. Yilan ChangBasophils/100 WBC (Bld)1.2 %Normal0.2-2.0[facility] Comment on above:Performed By: #### INFLUAB #### [facility] [address] [place] [address] Dr. Cherie Najera #0.1 103/ulNormal0.0-0.7The [facility] HospitalComment on above: Performed By: #### INFLUAB #### [facility] [address] [place] [address] Dr. Cherie Fisherosinophils/100 WBC (Bld)1.9 %Normal0.9-7.0[facility] Comment on above:Performed By: #### INFLUAB #### [facility] [address] [place] [address] Dr. Cherie Fisherrythrocyte distribution width (RBC) [Ratio]14.9 %Kbnioz92.0-15.0 [facility] ClinicComment on above:Performed By: #### INFLUAB #### [facility] [address] [place] [address] Dr. Cherie DiorHematocrit (Bld) [Volume fraction]40.7 %Dhkzxw29.0-48.0[facility] ClinicComment on above:Performed By: #### INFLUAB #### [facility] [address] [place] [address] Dr. Cherie DiorHemoglobin (Bld) [Mass/Vol]12.8 g/qAPonpue73.0-16.0The [facility] HospitalComment on above:Performed By: #### INFLUAB #### [facility] [address] [place] [address] Dr. Cherie Beltran #0.05 10e3/ulCritically high0.00-0.03The [facility] Comment on above:Performed By: #### INFLUAB #### [facility] [address] [place] [address] Dr. Cherie Beltran %1.2 %Critically high0.0-0.5The [facility] HospitalComment on above:Performed By: #### INFLUAB #### [facility] [address] [place] [address] Dr. Cherie Tao #0.9 103/ulCritically low1.2-3.8The [facility] on above:Performed By: #### INFLUAB #### [facility] [address] [place] [address] Dr. Cherie Birchmphocytes/100 WBC (Bld)21.8 %Fhrgve97.5-60.0The [facility] HospitalComment on above:Performed By: #### INFLUAB #### [facility] [address] [place] [address] Dr. Cherie GamezUAL DIFF REQNONormalThe [facility] HospitalComment on above: Performed By: #### INFLUAB #### [facility] [address] [place] [address] Dr. Cherie Pham (RBC) [Entitic mass]27.4 siUfquxj84.7-34.0The [facility] HospitalComment on above:Performed By: #### INFLUAB #### [facility] [address] [place] [address] Dr. Cherie Pham (RBC) [Mass/Vol]31.4 g/eHRhtbwd61.9-35.2The [facility] HospitalComment on above:Performed By: #### INFLUAB #### [facility] [address] [place] [address] Dr. Cherie Pham (RBC) [Entitic vol]87.0 mDRddjey33.0-99.0The [facility] HospitalComment on above:Performed By: #### INFLUAB #### [facility] [address] [place] [address] Dr. Cherie Colvin #0.7 103/ulNormal0.3-0.8The [facility] HospitalComment on above:Performed By: #### INFLUAB #### [facility] [address] [place] [address] Dr. Cherie Lionocytes/100 WBC (Bld)16.6 %Critically high1.7-12.0The [facility] HospitalComment on above:Performed By: #### INFLUAB #### [facility] [address] [place] [address] Dr. Cherie Del RioUT #2.5 103/ulNormal1.4-6.5The [facility] HospitalComment on above:Performed By: #### INFLUAB #### [facility] [address] [place] [address] Dr. Cherie Del Rioutrophils/100 WBC (Bld)57.3 %Bpachx93.0-75.0The [facility] HospitalComment on above:Performed By: #### INFLUAB #### [facility] [address] [place] [address] Dr. Cherie DiorPlatelet mean volume (Bld) [Entitic vol]10.2 fLNormal9.5-13.5The [facility] HospitalComment on above:Performed By: #### INFLUAB #### [facility] [address] [place] [address] Dr. Cherie DiorPLT278 103/auZcxycc272-841Uce [facility] HospitalComment on above: Performed By: #### INFLUAB #### [facility] [address] [place] [address] Dr. Cherie DiorRBC4.68 106/ulNormal4.20-5.40The [facility] on above:Performed By: #### INFLUAB #### [facility] [address] [place] [address] Dr. Cherie DiorWBC4.3 103/ulNormal4.0-11.0The [facility] HospitalComment on above: Performed By: #### INFLUAB #### [facility] [address] [place] [address] Dr. Cherie DiorCULTURE URINEon [id number] URINECulture Observations: NO GROWTH.NormalThe [facility] HospitalComment on above:Performed By: #### INFLUAB #### [facility] [address] [place] [address] Dr. Cherie Becerra (CLEAN/CATCH) MANAGER PLANT/MICRO IF IND.on 57-16-9815Zytxfoicg Ql (U) NegativeNormalNEGATIVECleveland ClinicComment on above:Performed By: #### BNP, CMADM, CMP #### [facility] [address] [address] [address] Cherie Blanco ()CLEARNormalCLEARCleveland ClinicComment on above: Performed By: #### BNP, CMADM, CMP #### [facility] [address] [address] [address] Cherie Galdamez (U)LT. YELLOWNormalYELLOWCleveland ClinicCommclaren central [place] on above:Performed By: #### BNP, CMADM, CMP #### [facility] [address] [address] [address] Cherie DiorGlucose Ql (U)NegativeNormalNEGMarietta Memorial HospitalComment on above:Performed By: #### BNP, CMADM, CMP #### [facility] [address] [address] [address] Cherie DiorHemoglobin Ql ()LARGEAbnormalNEGMercy Health – The Jewish Hospital on above:Performed By: #### BNP, CMADM, CMP #### [facility] [address] [address] [address] Cherie Nye Ql (U)TRACEAbnormalNEGMarietta Memorial HospitalCommclaren central [place] on above:Performed By: #### BNP, CMADM, CMP #### [facility] [address] [address] [address] Cherie DiorLEUKOCYTESMODERATEAbnormalNEGFirelands Regional Medical Center [facility] Campus on above:Performed By: #### BNP, CMADM, CMP #### [facility] [address] [address] [address] Cherie Smithtrite Ql (U)NegativeNormalNEGLima Memorial Hospitalment on above:Performed By: #### BNP, CMADM, CMP #### [facility] [address] [address] [address] Cherie DiorpH (U)6.0 [pH]Normal5-9The [facility] HospitalComment on above: Performed By: #### BNP, CMADM, CMP #### [facility] [address] [address] [address] Cherie Barbosa GRAVITY1.144Fyumdf6.005-<=1.025The [facility] Hospitalment on above:Performed By: #### BNP, CMADM, CMP #### [facility] [address] [address] [address] Cherie Becerra HVJIZDO63 mg/dlAbnormalNEGATIVE/ TRACEThe [facility] Comment on above:Performed By: #### BNP, CMADM, CMP #### [facility] [address] [address] [address] Cherie CLAYTON INDINDICATEDGalion HospitalCommclaren central [place] on above: Performed By: #### BNP, CMADM, CMP #### [facility] [address] [address] [address] Cherie Leonard Qn (U)0.2 {Del'U}/dLNormal0.2 - 1.0The [facility] on above:Performed By: #### BNP, CMADM, CMP #### [facility] [address] [address] [address] Cherie Norton MICROSCOPIC ONLYon [id number]DRLI SEEN The [facility] HospitalCommclaren [facility] [place] on above:Performed By: #### BNP, CMADM, CMP #### [facility] [address] [address] [address] Cherie Bingham identified Cx Nom (U)INDICATEDNoTrumbull Regional Medical CenterCommclaren central [place] on above:Performed By: #### BNP, CMADM, CMP #### [facility] [address] [address] [address] Cherie Medina SEENNormalNONE SEENTogus [facility] on above:Performed By: #### BNP, CMADM, CMP #### [facility] [address] [address] [address] Cherie Dang LM Nom (Urine sed)NONE SEENNormalNONE SEENThe [facility] on above:Performed By: #### BNP, CMADM, CMP #### [facility] [address] [address] [address] Crespo ChangEpithelial cells LM Ql (Urine sed)MODERATEAbnormalNONE SEEN /RARE The [facility] on above:Performed By: #### BNP, CMADM, CMP #### [facility] [address] [place] [address] Dr. Cherie MacarioUSTRACEAbnormalNONE SEENThe [facility] on above:Performed By: #### BNP, CMADM, CMP #### [facility] [address] [place] [address] Dr. Cherie DiorBbitoHXE6-9Fergpyav1-4Pwb [facility] on above:Performed By: #### BNP, CMADM, CMP #### [facility] [address] [place] [address] Dr. Cherie DiorWBC2-5AbnormalNONE SEENThe [facility] on above: Performed By: #### BNP, CMADM, CMP #### [facility] [address] [place] [address] Dr. Cherie Ramvikimberly-19 PCR ([facility])on [id number]-CoV-2 (COVID-19) RNA JULEE+probe Ql (Unsp spec)Not detectedNormalNOT DETECTEDThe [facility] Comment on above:Result Comment: When diagnostic testing is negative, the [...] for this test is supported by the [place] of Health and Human Service's declaration that circumstances exist to justify the emergency use of in vitro diagnostics for the detection and/or diagnosis of the virus that causes COVID-19. This EUA will remain in effect for the duration of the COVID-19 declaration justifying emergency of IVDs, unless it is terminated or revoked by the FDA (after which the test may no longer be used).Performed By: #### INFLUAB #### [facility] [address] [place] [address] Dr. Cherie Umanzor STREP CULTUREon 05-27-2022S. pyogenes Ag Ql (Unsp spec) Culture Observations: NEGATIVE FOR GROUP A STREPTOCOCCUS.NormalThe [facility] HospitalComment on above: Performed By: #### GRASTCX, SSCRN #### [facility] [address] [place] [address] Dr. Cherie Benz A AND B AGon [id number] [facility] PrebleComment on above:Result Comment: Negative for Flu A protein angiten. Infection due to Flu A cannot be ruled out. FluA angiten in the sample may be below the detection limit of the test.Performed By: #### INFLUAB #### [facility] [address] [place] [address] Dr. Cherie PerkinsUBNEGHSEE [facility] on above: Result Comment: Negative for Flu B protein antigen. Infection due to Flu B cannot be ruled out. FluB antigen in the sample may be below the detection limit of the test.Performed By: #### INFLUAB #### [facility] [address] [place] [address] Dr. Cherie Umanzor AGNegativeNormalNEGATIVE SEE COMMENTThe [facility] on above:Performed By: #### INFLUAB #### [facility] [address] [place] [address] Dr. Cherie Cline AGNegativeNormalNEGATIVE SEE COMMENTThe [facility] on above:Performed By: #### INFLUAB #### [facility] [address] [place] [address] Dr. Cherie DiorSTREPT SCREENon [id number] SCREEN ANegativeNormalNEGATIVEThe [facility] on above:Performed By: #### GRASTCX, SSCRN #### [facility] [address] [place] [address] Dr. Cherie Reese TOMAS DOP LEG LTon [id number] TOMAS DOP LEG LTEXAMINATION: US TOMAS DOP LEG LT HISTORY: At [...] Electronically authenticated by: BRYAN JONES Date: 2022-02-27 06:57Galion HospitalBNPon [id number] peptide B (Bld) [Mass/Vol]36.0 pg/mLNormal<=450.0The [facility] HospitalComment on above:Performed By: #### BNP, CMADM, CMP #### [facility] [address] [place] [address] Dr. Cherie Velásquez ALEX ADMITon [id number] [Catalytic activity/Vol]150 U/L Xdlfyq96-777Jmo [facility] HospitalComment on above:Performed By: #### BNP, CMADM, CMP #### [facility] [address] [place] [address] Dr. Cherie Fernando.MB [Mass/Vol]0.43 ng/mLNormal<=3.60[facility] Comment on above:Performed By: #### BNP, CMADM, CMP #### [facility] [address] [place] [address] Dr. Cherie DiorHSTROP4.7 pg/mLNormal4.0-51.3The [facility] HospitalComment on above:Result Comment: CUT-OFF POINTS HAVE BEEN ESTABLISHED BASED ON THE FOURTH UNIVERSAL DEFINITIONS OF MYOCARDIAL INFARCTION. THE UPPER REFERENCE LIMIT (URL) OF TROPONIN, DEFINED THE 99TH PERCENTILE OF cTnI DISTRIBUTION IN A REFERENCE POPULATION, HAS BEEN CONFIRMED THE DECISION THRESHOLD FOR [place] DIAGNOSIS.Performed By: #### BNP, CMADM, CMP #### [facility] [address] [place] [address] Dr. Cherie MarrufoO32 ng/mLNormal9-82The [facility] HospitalComment on above: Performed By: #### BNP, CMADM, CMP #### [facility] [address] [address] [address] Cherie Clayton AUTO DIFFon [id number] #0.0 103/ulNormal0.0-0.1The [facility] HospitalComment on above:Performed By: #### BNP, CMADM, CMP #### [facility] [address] [address] [address] Cherie DiorBasophils/100 WBC (Bld)0.4 %Normal0.2-2.0[facility] Comment on above:Performed By: #### BNP, CMADM, CMP #### [facility] [address] [address] [address] Cherie Najera #0.2 103/ulNormal0.0-0.7The [facility] HospitalComment on above: Performed By: #### BNP, CMADM, CMP #### [facility] [address] [place] [address] Dr. Cherie Fisherosinophils/100 WBC (Bld)1.8 %Normal0.9-7.0[facility] Comment on above:Performed By: #### BNP, CMADM, CMP #### [facility] [address] [place] [address] Dr. Cherie Fisherrythrocyte distribution width (RBC) [Ratio]12.6 %Hxeult26.0-15.0 [facility] ClinicComment on above:Performed By: #### BNP, CMADM, CMP #### [facility] [address] [place] [address] Dr. Cherie DiorHematocrit (Bld) [Volume fraction]32.9 %Critically low36.0-48.0 [facility] ClinicComment on above:Performed By: #### BNP, CMADM, CMP #### [facility] [address] [place] [address] Dr. Cherie DiorHemoglobin (Bld) [Mass/Vol]10.5 g/dLCritically low12.0-16.0The [facility] HospitalComment on above:Performed By: #### BNP, CMADM, CMP #### [facility] [address] [place] [address] Dr. Cherie Beltran #0.12 10e3/ulCritically high0.00-0.03The [facility] Comment on above:Performed By: #### BNP, CMADM, CMP #### [facility] [address] [place] [address] Dr. Cherie Beltran %1.4 %Critically high0.0-0.5The [facility] HospitalComment on above:Performed By: #### BNP, CMADM, CMP #### [facility] [address] [place] [address] Dr. Cherie Tao #1.7 103/ulNormal1.2-3.8The [facility] HospitalComment on above:Performed By: #### BNP, CMADM, CMP #### [facility] [address] [place] [address] Dr. Cherie Cerdahocytes/100 WBC (Bld)20.1 %Critically low20.5-60.0The [facility] HospitalComment on above:Performed By: #### BNP, CMADM, CMP #### [facility] [address] [place] [address] Dr. Cherie GamezUAL DIFF REQNONormalThe [facility] HospitalComment on above: Performed By: #### BNP, CMADM, CMP #### [facility] [address] [place] [address] Dr. Cherie Dai (RBC) [Entitic mass]28.8 vpLigbdf01.7-34.0The [facility] HospitalComment on above:Performed By: #### BNP, CMADM, CMP #### [facility] [address] [place] [address] Dr. Cherie Pham (RBC) [Mass/Vol]31.9 g/eWIycosi26.9-35.2The [facility] HospitalComment on above:Performed By: #### BNP, CMADM, CMP #### [facility] [address] [place] [address] Dr. Cherie Piña (RBC) [Entitic vol]90.4 iNTizfnq16.0-99.0The [facility] HospitalComment on above:Performed By: #### BNP, CMADM, CMP #### [facility] [address] [place] [address] Dr. Cherie Colvin #0.9 103/ulCritically high0.3-0.8The [facility] Comment on above:Performed By: #### BNP, CMADM, CMP #### [facility] [address] [place] [address] Dr. Cherie Lionocytes/100 WBC (Bld)10.4 %Normal1.7-12.0[facility] Comment on above:Performed By: #### BNP, CMADM, CMP #### [facility] [address] [place] [address] Dr. Cherie Hahn #5.6 103/ulNormal1.4-6.5The [facility] HospitalComment on above:Performed By: #### BNP, CMADM, CMP #### [facility] [address] [place] [address] Dr. Cherie Gaophils/100 WBC (Bld)65.9 %Shygiy55.0-75.0The [facility] HospitalComment on above:Performed By: #### BNP, CMADM, CMP #### [facility] [address] [place] [address] Dr. Cherie Mendoza mean volume (Bld) [Entitic vol]9.0 fLCritically low 9.5-13.5The [facility] HospitalComment on above:Performed By: #### BNP, CMADM, CMP #### [facility] [address] [place] [address] Dr. Cherie DiorPLT381 103/yzEskihn891-703Lzv [facility] HospitalComment on above: Performed By: #### BNP, CMADM, CMP #### [facility] [address] [address] [address] Cherie DiorRBC3.64 106/ulCritically low4.20-5.40The [facility] HospitalComment on above:Performed By: #### BNPKAIDM, CMP #### [facility] [address] [address] [address] Cherie DiorWBC8.4 103/ulNormal4.0-11.0The [facility] HospitalComment on above: Performed By: #### BNP CMADM, CMP #### [facility] [address] [address] [address] Cherie Herrera CHEST WO W CONon [id number] CHEST WO W CONCTA CHEST WITH IV CONTRAST CTA CHEST WO [...] The subdiaphragmatic abdominal organs included in the erexv-ij-zkfd do not demonstrate any acute abnormality allowing for some fatty infiltration of the liver.. IMPRESSION: No CT evidence for acute pulmonary embolus. Electronically authenticated by: WICHO RAINEY Date: 2022-02-25 19:04Galion HospitalD-DIMERon 63-97-3001W-DIMER6.44 mg/L FEUCritically high<=0.59 The [facility] HospitalComment on above:Performed By: #### BNP, CMADM, CMP #### [facility] [address] [address] [address] Cherie Fowler-DIMER COMMENTSSEE [facility] on above:Result Comment: Increases in D-Dimer concentration observed with thromboembolic events [...] stress, and generalized hospitalization. Performed By: #### BNP, CMADM, CMP #### [facility] [address] [address] [address] Cherie Callaway URINE PROFILEon 30-43-4703Eldconbvr Ql (U)NegativeNormal NEGATIVECleveland ClinicComment on above:Performed By: #### BNP, CMADM, CMP #### [facility] [address] [address] [address] Cherie DiorClarity (U)CLEARNormalCLEARCleveland ClinicComment on above: Performed By: #### BNP, CMADM, CMP #### [facility] [address] [address] [address] Cherie Galdamez (U)LT. YELLOWNormalYELLOWCleveland ClinicComment on above:Performed By: #### BNP, CMADM, CMP #### [facility] [address] [place] [address] Dr. Cherie Colmenares micrscopic examination will be performed if indicated. NormalCleveland ClinicComment on above:Performed By: #### BNP, CMADM, CMP #### [facility] [address] [place] [address] Dr. Cherie Goldmanose Ql (U)NegativeNormalNEGATIVECleveland ClinicComment on above:Performed By: #### BNP, CMADM, CMP #### [facility] [address] [address] [address] Cherie DiorHemoglobin Ql (U)SMALLAbnormalNEGATIVECleveland Clinic Comment on above:Performed By: #### BNP, CMADM, CMP #### [facility] [address] [address] [address] Cherie Nye Ql (U)NegativeNormalNEGATIVECleveland ClinicComment on above:Performed By: #### BNP, CMADM, CMP #### [facility] [address] [address] [address] Cherie DiorLEUKOCYTESNegativeNormalNEGATIVECleveland ClinicComment on above:Performed By: #### BNP, CMADM, CMP #### [facility] [address] [address] [address] Cherie Smithtrite Ql (U)NegativeNormalNEGATIVECleveland ClinicComment on above:Performed By: #### BNP, CMADM, CMP #### [facility] [address] [address] [address] Cherie DiorpH (U)6.0 [pH]Normal5-9The [facility] HospitalComment on above: Performed By: #### BNP, CMADM, CMP #### [facility] [address] [address] [address] Cherie DiorSPEC GRAVITY1.519Ribjar1.005-<=1.025The [facility] HospitalComment on above:Performed By: #### BNP, CMADM, CMP #### [facility] [address] [address] [address] Cherie DiorUA PROTEINNegativeNormalNEGATIVE/ TRACEThe [facility] Comment on above:Performed By: #### BNP, CMADM, CMP #### [facility] [address] [address] [address] Cherie Reyes MICRO INDINDICATEDNormalThe [facility] HospitalComment on above: Performed By: #### BNP, CMADM, CMP #### [facility] [address] [address] [address] Cherie Bhandaribilinogen Qn (U)0.2 {Del'U}/dLNormal0.2 - 1.0The [facility] HospitalComment on above:Performed By: #### BNP, CMADM, CMP #### [facility] [address] [address] [address] Cherie DiorPROF 14(COMP METB)on 58-96-6732Gzoqzbs [Mass/Vol]3.8 g/dLNormal 3.4-5.0The [facility] HospitalComment on above:Performed By: #### BNP, CMADM, CMP #### [facility] [address] [place] [address] Dr. Cherie DiorAlbumin/Globulin [Mass ratio]0.8 {ratio}NormalThe [facility] HospitalComment on above:Performed By: #### BNP, CMADM, CMP #### [facility] [address] [place] [address] Dr. Cherie Morrison [Catalytic activity/Vol]72 U/GYuxnbw62-407Vlm [facility] HospitalComment on above:Performed By: #### BNP, CMADM, CMP #### [facility] [address] [place] [address] Dr. Cherie Lagunas [Catalytic activity/Vol]21 U/TGofrnx43-26Vkm [facility] HospitalComment on above:Performed By: #### BNP, CMADM, CMP #### [facility] [address] [place] [address] Dr. Cherie Pack gap [Moles/Vol]10.5 mmol/LNormalThe [facility] on above:Performed By: #### BNP, CMADM, CMP #### [facility] [address] [place] [address] Dr. Cherie Kennedy [Catalytic activity/Vol]13 U/LCritically ggb37-50Xgo [facility] HospitalComment on above:Performed By: #### BNP, CMADM, CMP #### [facility] [address] [address] [address] Cherie DiorBilirubin [Mass/Vol]0.5 mg/dLNormal0.2-1.0The [facility] Comment on above:Performed By: #### BNP, CMADM, CMP #### [facility] [address] [address] [address] Cherie DiorCalcium [Mass/Vol]9.0 mg/dLNormal8.5-10.1The [facility] Comment on above:Performed By: #### BNP, CMADM, CMP #### [facility] [address] [address] [address] Cherie DiorChloride [Moles/Vol]104 mmol/PIcobqv80-622ZaeCleveland Clinic Comment on above:Performed By: #### BNP, CMADM, CMP #### [facility] [address] [place] [address] Dr. Cherie DiorCO2 [Moles/Vol]25.3 mmol/YVzrgnv42.0-32.0The [facility] Comment on above:Performed By: #### BNP, CMADM, CMP #### [facility] [address] [place] [address] Dr. Cherie DiorCreatinine [Mass/Vol]0.86 mg/dLNormal0.55-1.02[facility] ClinicComment on above:Performed By: #### BNP, CMADM, CMP #### [facility] [address] [place] [address] Dr. Cherie FisherGFR-AF CITIZEN OF THE [place]>60Normal>=60The [facility] HospitalComment on above:Performed By: #### BNP, CMADM, CMP #### [facility] [address] [place] [address] Dr. Cherie FisherGFR-NON AF CITIZEN OF THE [place]>60Normal>=60The [facility] HospitalComment on above:Performed By: #### BNP, CMADM, CMP #### [facility] [address] [place] [address] Dr. Cherie DiorGlobulin (S) [Mass/Vol]4.5 g/dLNormalThe [facility] HospitalComment on above:Performed By: #### BNP, CMADM, CMP #### [facility] [address] [address] [address] Cherie DiorGlucose [Mass/Vol]85 mg/pAIgtfle00-589Gws [facility] Comment on above:Performed By: #### BNP, CMADM, CMP #### [facility] [address] [address] [address] Cherie DiorPotassium [Moles/Vol]3.8 mmol/LNormal3.5-5.1The [facility] Comment on above:Performed By: #### BNP, CMADM, CMP #### [facility] [address] [address] [address] Cherie DiorProtein [Mass/Vol]8.3 g/dLCritically high6.4-8.2The [facility] HospitalComment on above:Performed By: #### BNP, CMADM, CMP #### [facility] [address] [address] [address] Cherie DiorSodium [Moles/Vol]136 mmol/GOvcglk243-612Elq [facility] Comment on above:Performed By: #### BNP, CMADM, CMP #### [facility] [address] [address] [address] Cherie DiorUrea nitrogen [Mass/Vol]14.0 mg/dLNormal7.0-18.0C[facility] ClinicComment on above:Performed By: #### BNP, CMADM, CMP #### [facility] [address] [place] [address] Dr. Cherie Hua nitrogen/Creatinine [Mass ratio]16.3 mg/mgNormalThe [facility] HospitalComment on above:Performed By: #### BNP, CMADM, CMP #### [facility] [address] [place] [address] Dr. Cherie DiorPROTIMEon 67-74-4336EIC Coag (PPP) [Relative time]0.97 {INR} NormalThe [facility] HospitalComment on above:Performed By: #### BNP, CMADM, CMP #### [facility] [address] [place] [address] Dr. Cherie Peterson [facility]ITALE BELOWGalion HospitalComment on above:Result Comment: DESIRED INR: 2.0 - 3.0 CONDITIONS NOT LISTED BELOW 2.5 - 3.5 FOR PROSTHETIC HEART VALVE REPLACEMENT 2.5 - 3.5 RECURRENT THROMBOSIS Performed By: #### BNP, CMADM, CMP #### [facility] [address] [place] [address] Dr. Cherie Jiang Coag (PPP) [Time]10.5 sNormal9.0-11.6The [facility] Comment on above:Performed By: #### BNP, CMADM, CMP #### [facility] [address] [place] [address] Dr. Cherie Nicole 78-25-4295oGVB Coag (Bld) [Time]29.1 lSzlvxa73.3-36.2C[facility] ClinicComment on above:Performed By: #### BNP, CMADM, CMP #### [facility] [address] [place] [address] Dr. Cherie GILBERT ONLYon 11-39-7724XCYFVHEOFMUI SEENNormalNONE SEENCleveland ClinicCommclaren central [place] on above:Performed By: #### BNP, CMADM, CMP #### [facility] [address] [place] [address] Dr. Cherie Bingham identified Cx Nom (U)NOT INDICATEDNoTrumbull Regional Medical CenterComment on above:Performed By: #### BNP, CMADM, CMP #### [facility] [address] [place] [address] Dr. Cherie Medina SEENNormalNONE SEENCleveland ClinicCommclaren central [place] on above:Performed By: #### BNP, CMADM, CMP #### [facility] [address] [place] [address] Dr. Cherie Dang LM Nom (Urine sed)NONE SEENNormalNONE SEENCleveland ClinicCommclaren central [place] on above:Performed By: #### BNP, CMADM, CMP #### [facility] [address] [place] [address] Dr. Crespo ChangEpithelial cells LM Ql (Urine sed)FEWAbnormalNONE SEEN /RAREThe [facility] HospitalComment on above:Performed By: #### BNP, CMADM, CMP #### [facility] [address] [place] [address] Dr. hCerie DevineCOUSTRACEAbnormalNONE SEENThe [facility] HospitalComment on above:Performed By: #### BNP, CMADM, CMP #### [facility] [address] [place] [address] Dr. Cherie DiorBruzcWRJ3-60Olwvmdws0-7Rmj [facility] HospitalComment on above:Performed By: #### BNP, CMADM, CMP #### [facility] [address] [place] [address] Dr. Cherie DiorWBCNONE SEENNormalNONE SEENThe [facility] HospitalComment on above: Performed By: #### BNP, CMADM, CMP #### [facility] [address] [place] [address] Dr. Cherie DiorOperative Reporton 70-17-6860Cldwuqfyh Report [id number]#[id number]:127NormalSouthview Medical CenterBUNon 64-50-4832Zawn nitrogen [Mass/Vol]9.0 mg/dLNormal7.0-18.0The [facility] HospitalComment on above:Performed By: #### BUN, CREA #### [facility] [address] [place] [address] Dr. Cherie HensleyC AUTO DIFFon 08-13-5383JPIA #0.0 103/ulNormal0.0-0.1The [facility] HospitalCommclaren central [place] on above:Performed By: #### CBC #### [facility] [address] [place] [address] Dr. Cherie DiorBasophils/100 WBC (Bld)0.1 %Critically low0.2-2.0The [facility] HospitalComment on above:Performed By: #### CBC #### [facility] [address] [address] [address] Cherie Najera #0.0 103/ulNormal0.0-0.7The [facility] HospitalComment on above: Performed By: #### CBC #### [facility] [address] [place] [address] Dr. Cherie Fisherosinophils/100 WBC (Bld)0.0 %Critically low0.9-7.0The [facility] HospitalComment on above:Performed By: #### CBC #### [facility] [address] [place] [address] Dr. Cherie Fisherrythrocyte distribution width (RBC) [Ratio]12.6 %Xohlru53.0-15.0 The Surgical Hospital at Southwoodsment on above:Performed By: #### CBC #### [facility] [address] [place] [address] Dr. Cherie DiorHematocrit (Bld) [Volume fraction]31.0 %Critically low36.0-48.0 [facility] ClinicCommclaren [facility] [place] on above:Performed By: #### CBC #### [facility] [address] [place] [address] Dr. Cherie DiorHemoglobin (Bld) [Mass/Vol]10.2 g/dLCritically low12.0-16.0The Surgical Hospital at Southwoodsment on above:Performed By: #### CBC #### [facility] [address] [place] [address] Dr. Cherie Beltran #0.04 10e3/ulCritically high0.00-0.03[facility] Comment on above:Performed By: #### CBC #### [facility] [address] [place] [address] Dr. Cherie Beltran %0.3 %Normal0.0-0.5The [facility] on above: Performed By: #### CBC #### [facility] [address] [place] [address] Dr. Cherie Tao #1.1 103/ulCritically low1.2-3.8The [facility] Comment on above:Performed By: #### CBC #### [facility] [address] [place] [address] Dr. Cherie Birchmphocytes/100 WBC (Bld)9.6 %Critically low20.5-60.0The [facility] HospitalComment on above:Performed By: #### CBC #### [facility] [address] [place] [address] Dr. Cherie Sky DIFF REQNONormalThe [facility] HospitalComment on above: Performed By: #### CBC #### [facility] [address] [place] [address] Dr. Cherie Pham (RBC) [Entitic mass]29.1 niTzjgoh28.7-34.0The [facility] HospitalComment on above:Performed By: #### CBC #### [facility] [address] [place] [address] Dr. Cherie Pham (RBC) [Mass/Vol]32.9 g/lFOmfzvt90.9-35.2The [facility] HospitalComment on above:Performed By: #### CBC #### [facility] [address] [place] [address] Dr. Cherie Pham (RBC) [Entitic vol]88.3 bYZpbmpe45.0-99.0C[facility] ClinicComment on above:Performed By: #### CBC #### [facility] [address] [place] [address] Dr. Cherie Colvin #1.2 103/ulCritically high0.3-0.8ThToledo Hospital Comment on above:Performed By: #### CBC #### [facility] [address] [place] [address] Dr. Cherie Lionocytes/100 WBC (Bld)9.9 %Normal1.7-12.0[facility] Comment on above:Performed By: #### CBC #### [facility] [address] [place] [address] Dr. Cherie Hahn #9.5 103/ulCritically high1.4-6.5ThToledo Hospital Comment on above:Performed By: #### CBC #### [facility] [address] [address] [address] Cherie Del Rioutrophils/100 WBC (Bld)80.1 %Critically high43.0-75.0The [facility] HospitalComment on above:Performed By: #### CBC #### [facility] [address] [address] [address] Cherie DiorPlatelet mean volume (Bld) [Entitic vol]9.5 fLNormal9.5-13.5The [facility] HospitalComment on above:Performed By: #### CBC #### [facility] [address] [place] [address] Dr. Cherie DiorPLT225 103/viDgklcd697-779Cwt [facility] HospitalComment on above: Performed By: #### CBC #### [facility] [address] [place] [address] Dr. Cherie DiorRBC3.51 106/ulCritically low4.20-5.40The [facility] HospitalComment on above:Performed By: #### CBC #### [facility] [address] [place] [address] Dr. Cherie DiorWBC11.8 103/ulCritically high4.0-11.0The [facility] Luther[facility] Hospitalment on above:Performed By: #### CBC #### [facility] [address] [place] [address] Dr. Cherie DiorCREATININEon 79-76-0782Dscoqctcyi [Mass/Vol]0.98 mg/dLNormal 0.55-1.02The [facility] HospitalComment on above:Performed By: #### BUN, CREA #### [facility] [address] [place] [address] Dr. Cherie FisherGFR-AF CITIZEN OF [place]>60Normal>=60The [facility] Luther[facility] Hospitalment on above:Performed By: #### BUN, CREA #### [facility] [address] [place] [address] Dr. Cherie FisherGFR-NON AF CITIZEN OF [place]>60Normal>=60The [facility] HospitalComment on above:Performed By: #### BUN, CREA #### [facility] [address] [place] [address] Dr. Cherie Miranda HCG QUALon 57-81-0028UKVCQZUQZ, QUALNegativeNormalNEGATIVE [facility] ClinicComment on above:Performed By: #### INFLUAB #### [facility] [address] [place] [address] Dr. Cherie Ma for Procedure/Surgeryon 37-52-2129Oslyrut for Procedure/[id number]#1.00CD:127NormalKettering Health Hamilton AUTO DIFFon 65-90-8315JHVQ #0.0 103/ulNormal0.0-0.1The [facility] HospitalComment on above:Performed By: #### BNP, CMADM, CMP #### [facility] [address] [place] [address] Dr. Cherie DiorBasophils/100 WBC (Bld)0.6 %Normal0.2-2.0[facility] Comment on above:Performed By: #### BNP, CMADM, CMP #### [facility] [address] [place] [address] Dr. Cherie Najera #0.1 103/ulNormal0.0-0.7The [facility] HospitalComment on above: Performed By: #### BNP, CMADM, CMP #### [facility] [address] [place] [address] Dr. Cherie Fisherosinophils/100 WBC (Bld)4.0 %Normal0.9-7.0The [facility] Comment on above:Performed By: #### BNP, CMADM, CMP #### [facility] [address] [place] [address] Dr. Cherie Fisherrythrocyte distribution width (RBC) [Ratio]12.9 %Sfywrk59.0-15.0 [facility] ClinicComment on above:Performed By: #### BNP, CMADM, CMP #### [facility] [address] [place] [address] Dr. Cherie DiorHematocrit (Bld) [Volume fraction]38.8 %Uaqwlv12.0-48.0The [facility] Luther[facility] Hospitalment on above:Performed By: #### BNP, CMADM, CMP #### [facility] [address] [place] [address] Dr. Cherie DiorHemoglobin (Bld) [Mass/Vol]12.6 g/gLSwcyhp52.0-16.0The [facility] HospitalComment on above:Performed By: #### BNP, CMADM, CMP #### [facility] [address] [place] [address] Dr. Cherie Beltran #0.00 10e3/ulNormal0.00-0.03The [facility] HospitalComment on above:Performed By: #### BNP, CMADM, CMP #### [facility] [address] [place] [address] Dr. Cherie Beltran %0.0 %Normal0.0-0.5The [facility] HospitalComment on above: Performed By: #### BNP, CMADM, CMP #### [facility] [address] [place] [address] Dr. Cherie Tao #1.3 103/ulNormal1.2-3.8The [facility] HospitalCommclaren central [place] on above:Performed By: #### BNP, CMADM, CMP #### [facility] [address] [place] [address] Dr. Cherie Cerdahocytes/100 WBC (Bld)36.5 %Eqkvhf19.5-60.0The [facility] HospitalComment on above:Performed By: #### BNP, CMADM, CMP #### [facility] [address] [place] [address] Dr. Cherie GamezUAL DIFF REQNONormalThe [facility] HospitalComment on above: Performed By: #### BNP, CMADM, CMP #### [facility] [address] [place] [address] Dr. Cherie Dai (RBC) [Entitic mass]29.4 aoCubggq47.7-34.0The [facility] HospitalComment on above:Performed By: #### BNP, CMADM, CMP #### [facility] [address] [place] [address] Dr. Cherie Pham (RBC) [Mass/Vol]32.5 g/lJAsrtvu10.9-35.2The [facility] HospitalComment on above:Performed By: #### BNP, CMADM, CMP #### [facility] [address] [place] [address] Dr. Cherie Pham (RBC) [Entitic vol]90.7 nRFgyudp27.0-99.0The [facility] HospitalComment on above:Performed By: #### BNP, CMADM, CMP #### [facility] [address] [place] [address] Dr. Cherie Colvin #0.5 103/ulNormal0.3-0.8The [facility] HospitalComment on above:Performed By: #### BNP, CMADM, CMP #### [facility] [address] [place] [address] Dr. Cherie Lionocytes/100 WBC (Bld)12.9 %Critically high1.7-12.0The [facility] HospitalComment on above:Performed By: #### BNP, CMADM, CMP #### [facility] [address] [place] [address] Dr. Cherie Hahn #1.6 103/ulNormal1.4-6.5The [facility] HospitalComment on above:Performed By: #### BNP, CMADM, CMP #### [facility] [address] [place] [address] Dr. Cherie Gaophils/100 WBC (Bld)46.0 %Phzlod95.0-75.0The [facility] HospitalComment on above:Performed By: #### BNP, CMADM, CMP #### [facility] [address] [place] [address] Dr. Cherie Dailet mean volume (Bld) [Entitic vol]9.8 fLNormal9.5-13.5The [facility] HospitalComment on above:Performed By: #### BNP, CMADM, CMP #### [facility] [address] [place] [address] Dr. Cherie DiorPLT202 103/usUwyaac638-522Tsf [facility] HospitalComment on above: Performed By: #### BNP, CMADM, CMP #### [facility] [address] [place] [address] Dr. Cherie DiorRBC4.28 106/ulNormal4.20-5.40The [facility] HospitalComment on above:Performed By: #### BNP, CMADM, CMP #### [facility] [address] [place] [address] Dr. Cherie DiorWBC3.5 103/ulCritically low4.0-11.0The [facility] HospitalComment on above:Performed By: #### BNP, CMADM, CMP #### [facility] [address] [place] [address] Dr. Cherie DiorCovid-19 PCR (CVDLYMAN SCHOOL FOR BOYS)on 37-84-6191KUQH-CoV-2 (COVID-19) RNA JULEE+probe Ql (Unsp spec)Not detectedNormalNOT DETECTEDThe [facility] Comment on above:Result Comment: This test is not yet approved or cleared by the [place] FDA. When there are no FDA-approved or cleared tests available, and other criteria are met, FDA can make tests available under an emergency access mechanism called an Emergency Use Authorization (EUA). The EUA for this test is supported by the V Block Saw Operator of Health and Human Service's (HHS's) declaration that circumstances exist to justify the emergency use of in vitro diagnostics for the detection and/or diagnosis of the virus that causes COVID- 19. This EUA will remain in effect (meaning [...] of clinical signs and symptoms consistent with SARS-CoV-2.Performed By: #### BNP, CMADM, CMP #### [facility] [address] [address] [address] Cherie NickF CHEM 8 (BAS METB)on 77-06-5623Mpujz gap [Moles/Vol]7.5 mmol/LNormalThe [facility] HospitalComment on above:Performed By: #### BMP #### [facility] [address] [place] [address] Dr. Cherie DiorCalcium [Mass/Vol]8.4 mg/dLCritically low8.5-10.1The [facility] HospitalComment on above:Performed By: #### BMP #### [facility] [address] [place] [address] Dr. Cherie DiorChloride [Moles/Vol]106 mmol/IIpkvpd50-740Xhv [facility] Comment on above:Performed By: #### BMP #### [facility] [address] [place] [address] Dr. Cherie DiorCO2 [Moles/Vol]28.3 mmol/RItcvhq26.0-32.0The [facility] Comment on above:Performed By: #### BMP #### [facility] [address] [place] [address] Dr. Cherie DiorCreatinine [Mass/Vol]0.81 mg/dLNormal0.55-1.02The [facility] HospitalComment on above:Performed By: #### BMP #### [facility] [address] [place] [address] Dr. Cherie FisherGFR-AF CITIZEN OF [place]>60Normal>=60The [facility] HospitalComment on above:Performed By: #### BMP #### [facility] [address] [place] [address] Dr. Cherie FisherGFR-NON AF CITIZEN OF [place]>60Normal>=60The [facility] HospitalComment on above:Performed By: #### BMP #### [facility] [address] [place] [address] Dr. Cherie DiorGlucose [Mass/Vol]75 mg/iCYjrqlk11-769NpjCleveland Clinic Comment on above:Performed By: #### BMP #### [facility] [address] [address] [address] Cherie DiorPotassium [Moles/Vol]3.8 mmol/LNormal3.5-5.1[facility] Comment on above:Performed By: #### BMP #### [facility] [address] [address] [address] Cherie Martinezdium [Moles/Vol]138 mmol/JNsmxej741-469UxqCleveland Clinic Comment on above:Performed By: #### BMP #### [facility] [address] [place] [address] Dr. Cherie DiorUrea nitrogen [Mass/Vol]8.0 mg/dLNormal7.0-18.0[facility] ClinicComment on above:Performed By: #### BMP #### [facility] [address] [place] [address] Dr. Cherie Hua nitrogen/Creatinine [Mass ratio]9.9 mg/mgNormalThToledo HospitalComment on above:Performed By: #### BMP #### [facility] [address] [place] [address] Dr. Cherie Romero 96-76-8132ADN Coag (PPP) [Relative time]0.97 {INR} NormalCleveland ClinicComment on above:Performed By: #### BNP, CMADM, CMP #### [facility] [address] [place] [address] Dr. Cherie Peterson GUIDELINESSEE BELOWGalion HospitalComment on above:Result Comment: DESIRED INR: 2.0 - 3.0 CONDITIONS NOT LISTED BELOW 2.5 - 3.5 FOR PROSTHETIC HEART VALVE REPLACEMENT 2.5 - 3.5 RECURRENT THROMBOSIS Performed By: #### BNP, CMADM, CMP #### [facility] [address] [place] [address] Dr. Cherie Jiang Coag (PPP) [Time]10.5 sNormal9.0-11.6ThToledo Hospital Comment on above:Performed By: #### BNP, CMADM, CMP #### [facility] [address] [place] [address] Dr. Cherie Nicole 38-39-0911fYFO Coag (Bld) [Time]25.1 lGekfmv07.3-36.2[facility] ClinicComment on above:Performed By: #### BNP, CMADM, CMP #### [facility] [address] [place] [address] Dr. Cherie DiorTYPE AND SCREENon 62-66-2636RQXO AND SCREENNegativeNormalThe [facility] HospitalComment on above:Performed By: #### INFLUAB #### [facility] [address] [place] [address] Dr. Cherie DiorPhysician Referralon 23-31-1922Qqkfbdkyp Referral [id number]:127NoUniversity Hospitals Elyria Medical CenterPREG HCG QUALon 04-62-9101FFVITUVEB, QUALNegativeNormalNEGATIVEThe [facility] HospitalComment on above:Performed By: #### BNP, CMADM, CMP #### [facility] [address] [place] [address] Dr. Cherie DiorMG MAMM SCREEN 3D ARJUN CADon 60-94-0204VQ MAMM SCREEN 3D ARJUN CAD Patient: NEEL GARCIA Exam Date: 01/02/2022 : 1980 Gender:F Ordering : DR INGRID DE [place] . Admission #: [id number] Family : Order #: [id number] CLICK HERE TO VIEW EXAM RADIOLOGY REPORT PROCEDURE: MAMMOGRAM SCREENING 3D BILATERAL CAD COMPARISON: MG MAMM SCREEN ARJUN W CAD, 07/29/2018. INDICATIONS: Screening mammography Calculator Name NCI Breast Cancer Risk Assessment Tool 5 Year Breast Cancer Risk Not Reported. Lifetime Breast Cancer Risk Not Reported. Personal Breast Cancer No Personal Ovarian Cancer No Treatments None Family Cancers None LOCATION: [facility] BREAST COMPOSITION: Heterogeneously dense,which may obscure [...] by: Bryan Jones MD on 01/02/2022 at 11:25[facility] Covid-[facility] PCR (CVDTBH)on 01-58-4322VLKM-CoV-2 (COVID-19) RNA JULEE+probe Ql (Unsp spec)Not detectedNormalNOT DETECTEDThe [facility] HospitalComment on above:Result Comment: This test is not yet approved or cleared by the [place] FDA. When there are no FDA-approved or cleared tests available, and other criteria are met, FDA can make tests available under an emergency access mechanism called an Emergency Use Authorization (EUA). The EUA for this test is supported by the V Block Saw Operator of Health and Human Service's (HHS's) declaration [...] of clinical signs and symptoms consistent with SARS-CoV-2.Performed By: #### INFLUAB #### [facility] [address] [place] [address] Dr. Cherie DiorUS PELVIS AND TRANSVAGon 49-55-3936MV PELVIS AND TRANSVAG EXAMINATION: US PELVIS AND [...] Electronically authenticated by: AUSTIN MCGUIRE Date: 2021-12-20 11:02[facility] CenterOG PANEL 2: 30 to 65on 12-19-2021..NormalThe [facility] HospitalComment on above:Result Comment: Performed at: WBPerformed By: #### BNP, CMADM, CMP #### [facility] [address] [address] [address] Cherie Thomas Gdln ACOG Ksrvxxx05-42FgaexeSbkTrumbull Regional Medical CenterComment on above:Performed By: #### BNP, CMADM, CMP #### [facility] [address] [id number] Cherie DiorDIAGNOSIS:CommentBucyrus Community Hospital on above: Result Comment: NEGATIVE FOR INTRAEPITHELIAL LESION OR MALIGNANCY. Performed at: WBPerformed By: #### BNP, CMADM, CMP #### [facility] [address] [id number] Cherie DiorHPNuris AptimaNegativeNormalNegativeThe [facility] HospitalComment on above:Result Comment: This nucleic acid amplification test detects fourteen high-risk HPV types (16,18,31,33,35,39,45,51,52,56,58,59,66,68) without differentiation. Performed at: =GPerformed By: #### BNP, CMADM, CMP #### [facility] [address] [address] [address] Cherie DiorMethodology:CommentBucyrus Community Hospital on above: Result Comment: This liquid based ThinPrep(R) pap test was screened with the use of an image guided system. Performed at: WBPerformed By: #### BNP, CMADM, CMP #### [facility] [address] [place] [address] Dr. Cherie DiorNote:CommentBucyrus Community Hospital on above:Result Comment: The Pap smear is a screening test designed to aid in the detection of premalignant and malignant conditions of the uterine cervix. It is not a diagnostic procedure and should not be used as the sole means of detecting cervical cancer. Both false-positive and false-negative reports do occur. . Performed at: WBPerformed By: #### BNP, CMADM, CMP #### [facility] [address] [place] [address] Dr. Cherie DiorPerformed by:CommentBucyrus Community Hospital on above: Result Comment: Jonna Drummond Director Of Counterintelligence (ASCP) Performed at: WBPerformed By: #### BNP, CMADM, CMP #### [facility] [address] [place] [address] Dr. Cherie DiorSpecimen adequacy:CommentBucyrus Community Hospital on above:Result Comment: Satisfactory for evaluation. Endocervical and/or squamous metaplastic cells (endocervical component) are present. Performed at: WBPerformed By: #### BNP, CMADM, CMP #### [facility] [address] [place] [address] Dr. Cherie iDorCNPNisha [id number] (HEMASA) NEEL GARCIA ([id number]) 1980 F Date Time Provider Department 11/14/21 JIAN DE LA CRUZ During your visit today, we recorded the following information about you: Jian De La Cruz RN 11/14/2021 3:15 PM Signed ----- Message from Alina Barros RN sent at 11/13/2021 1:26 PM EDT ----- ----- Message ----- From: Nehemias Ward MD Sent: 11/11/2021 6:10 AM EDT To: Alina Barros RN [facility]. Can you please call pt and let her know that the iron profile is normal? No change in the recommendation. Thanks, SJK Jian De La Cruz RN 11/14/2021 3:15 [...] Status:Closed by JIAN DE LA CRUZ on 11/14/21NormalCCity Hospital W Auto Differential panel (Bld)on 08-30-1271Sbqwpqawm (Bld) [#/Vol] 0.03 10*3/uLNormal<0.11CWadsworth-Rittman HospitalComment on above:Order Comment: Specimen Type: BLOOD SPECIMENOrdering Facility: [facility] Address:[address] [place] [address] [place] [address]Vuvxeystp By: #### 08329-6 ####[facility] LABCLIA [id number] [place], [place] [address]Fgtqgcrcj/100 WBC (Bld)0.9 %NormalThe Christ Hospital on above:Order Comment: Specimen Type: BLOOD SPECIMENOrdering Facility: [facility] Address:[address] [place], [place] [address]Performed By: #### 65800-6 ####[facility] LABCLIA [id number] [place], [place] [address]Kmhlmldrgwut cell count method Nom (Bld)AutoNormalCBlanchard Valley Health System on above:Order Comment: Specimen Type: BLOOD SPECIMENOrdering Facility: [facility] Address:[address] [place], [place] [address]Performed By: #### 84069-6 ####[facility] LABCLIA [id number] [place], [place] [address]Tiquhutavlm (Bld) [#/Vol]0.14 10*3/uLNormal<0.46[facility] on above:Order Comment: Specimen Type: BLOOD SPECIMENOrdering Facility: [facility] Address:[address] [place], [place] [address]Performed By: #### 31901-7 ####[facility] LABCLIA [id number] [place] [address] Eosinophils/100 WBC (Bld)4.2 %NormalThe Christ Hospital on above: Order Comment: Specimen Type: BLOOD SPECIMENOrdering Facility: [facility] Address:[address] [place], [place] [address]Performed By: #### 32981-4 ####[facility] LABCLIA [id number] [place], [place] [address]Hrclkqgzjhc distribution width (RBC) [Ratio]15.4 %High 11.5-15.0[facility] on above:Order Comment: Specimen Type: BLOOD SPECIMENOrdering Facility: [facility] Address:[address] [place], [place] [address]Performed By: #### 98117-0 ####[facility] LABCLIA [id number] [place] [address] Hematocrit (Bld) [Volume fraction]38.0 %Fxacdi22.0-46.0[facility] on above:Order Comment: Specimen Type: BLOOD SPECIMENOrdering Facility: [facility] Address:[address] [place], [place] [address]Performed By: #### 37574-3 ####[facility] LABIA [id number] [place], [place] [address]Vtfkhlsjfa (Bld) [Mass/Vol]12.0 g/hOEcrolr64.5-15.5CBlanchard Valley Health System on above: Order Comment: Specimen Type: BLOOD SPECIMENOrdering Facility: [facility] Address:[address] [place], [place] [address]Performed By: #### 50752-2 ####[facility] LABIA [id number] [place], [place] [address]LMJTFOFA GRAN %0.3 %NormalOur Lady Of Mercy Hospital Comment on above:Order Comment: Specimen Type: BLOOD SPECIMENOrdering Facility: [facility] Address:[address] [place] [address] Performed By: #### 29594-1 ####[facility] LABIA [id number] [place], [place] [address]MZEJSASG GRAN ABS<0.03Normal <0.10[facility] on above:Order Comment: Specimen Type: BLOOD SPECIMENOrdering Facility: [facility] Address:[address] [place], [place] [address]Performed By: #### 42830-8 ####[facility] LABIA [id number] [place] [address] Lymphocytes (Bld) [#/Vol]1.26 10*3/uLNormal1.00-4.00[facility] Comment on above:Order Comment: Specimen Type: BLOOD SPECIMENOrdering Facility: [facility] Address:[address] [place] [address] Performed By: #### 35633-6 ####[facility] LABIA [id number] [place], [place] [address]Xhlewuownkd/100 WBC (Bld)38.1 % NormalThe Christ Hospital on above:Order Comment: Specimen Type: BLOOD SPECIMENOrdering Facility: [facility] Address:[address] [place], [place] [address]Performed By: #### 66916-7 ####[facility] LABGIFFORD [facility] [id number] [place], [place] [address]CUH (RBC) [Entitic mass]27.9 ioRltgaq04.0-34.0Our [facility] Of Mercy HospitalComment on above:Order Comment: Specimen Type: BLOOD SPECIMENOrdering Facility: [facility] Address:[address] [place], [place] [address]Performed By: #### 41072-7 ####[facility] LABIA [id number] [place], [place] [address]QPMC (RBC) [Mass/Vol]31.6 g/aRPvtwlw99.5-36.0 [facility] on above:Order Comment: Specimen Type: BLOOD SPECIMENOrdering Facility: [facility] Address:[address] [place], [place] [address]Performed By: #### 05285-8 ####[facility] LABIA [id number] [place], [place] [address]VWO (RBC) [Entitic vol]88.4 lISsulxn53.0-100.0[facility] on above: Order Comment: Specimen Type: BLOOD SPECIMENOrdering Facility: [facility] Address:[address] [place], [place] [address]Performed By: #### 09301-0 ####[facility] LABCLIA [id number] [place], [place] [address]Zzkeatftn (Bld) [#/Vol]0.43 10*3/uLNormal<0.87[facility] on above:Order Comment: Specimen Type: BLOOD SPECIMENOrdering Facility: [facility] Address:[address] [place], [place] [address]Performed By: #### 88001-0 ####[facility] LABCLIA [id number] [place] [address] Monocytes/100 WBC (Bld)13.0 %NormalThe Christ Hospital on above: Order Comment: Specimen Type: BLOOD SPECIMENOrdering Facility: [facility] Address:[address] [place], [place] [address]Performed By: #### 81885-5 ####[facility] LABCLIA [id number] [place], [place] [address]Vukruiiyntr (Bld) [#/Vol]1.44 10*3/uLLow1.45-7.50 [facility] on above:Order Comment: Specimen Type: BLOOD SPECIMENOrdering Facility: [facility] Address:[address] [place], [place] [address]Performed By: #### 76330-8 ####[facility] LABCLIA [id number] [place] [address] Neutrophils/100 WBC (Bld)43.5 %NormalThe Christ Hospital on above: Order Comment: Specimen Type: BLOOD SPECIMENOrdering Facility: [facility] Address:[address] [place], [place] [address]Performed By: #### 60425-3 ####[facility] LABCLIA [id number] [place], [place] [address]Szthbwwuw RBC (Bld) [#/Vol]10*3/uLNormal<0.01[facility] on above:Order Comment: Specimen Type: BLOOD SPECIMENOrdering Facility: [facility] Address:[address] [place], [place] [address]Performed By: #### 39149-6 ####[facility] LABIA [id number] [place], [place] [address]Himaxcwpe RBC/100 WBC (Bld) [Ratio]0.0 /100 WBCNormalCBlanchard Valley Health System on above:Order Comment: Specimen Type: BLOOD SPECIMENOrdering Facility: [facility] Address:[address] [place], [place] [address]Performed By: #### 08940-6 ####[facility] LABIA [id number] [place], [place] [address]Eewazgyb mean volume (Bld) [Entitic vol]9.5 fL Normal9.0-12.7CBlanchard Valley Health System on above:Order Comment: Specimen Type: BLOOD SPECIMENOrdering Facility: [facility] Address:[address] [place], [place] [address]Performed By: #### 85007-0 ####[facility] LABIA [id number] [place] [address] Platelets (Bld) [#/Vol]239 10*3/hYCmlbse266-407GazcilyjrThe Christ Hospital on above:Order Comment: Specimen Type: BLOOD SPECIMENOrdering Facility: [facility] Address:[address] [place] [address] Performed By: #### 93734-5 ####[facility] LABIA [id number] [place], [place] [address]NIJ (Bld) [#/Vol]4.30 10*6/uL Normal3.90-5.20[facility] on above:Order Comment: Specimen Type: BLOOD SPECIMENOrdering Facility: [facility] Address:[address] [place] [address]Tonjuzxzf By: #### 90693-5 ####[facility] LABIA [id number] [place], [place] [address]UQN (Bld) [#/Vol]3.31 10*3/uLLow3.70-11.00[facility] on above:Order Comment: Specimen Type: BLOOD SPECIMENOrdering Facility: [facility] Address:[address] [place] [address]Zxcewtvhr By: #### 21261-4 ####[facility] LABCLIA [id number] [place], [place] [address]KXIYQEus [id number] (SP) Office (HEMASA) NEEL GARCIA ([id number]) 1980 F Date Time Provider Department 11/10/21 [...] provide more details. She was born in [place] and has lived in [place] in the past. She reports occasional smoking - cigars that are dipped in cognac - last use a month back. Occasional alcohol use. No other substance abuse reported. She lives with her with 5 children. She is not working now but used to work at [employer] (was laid off during ). MEDICATIONS AND [...] which included preparing to see the patient, mufs-uk-dsoy patient care, completing clinical documentation, obtaining and/or reviewing separately obtained history, performing a medically appropriate examination, counseling and educating the patient/family/caregiver, ordering medications, tests, or pro (more content not included)...NormalOur Lady Of Mercy HospitalComprehensive metabolic 2000 panelon 97-85-3895Wyudgaj [Mass/Vol]4.1 g/dLNormal3.9-4.9CWadsworth-Rittman Hospital Comment on above:Order Comment: Specimen Type: BLOOD SPECIMENOrdering Facility: [facility] Address:[address] [place] [address] Performed By: #### 62039-4 ####[facility] LABCLIA [id number] [place], [place] [address]MYL [Catalytic activity/Vol]64 U/MDflrqc85-192NmucbktsaOur Lady Of Mercy HospitalComment on above:Order Comment: Specimen Type: BLOOD SPECIMENOrdering Facility: [facility] Address:[address] [place], [place] [address]Performed By: #### 25800-8 ####[facility] LABCLIA [id number] [facility] [place], [place] [address]ENC [Catalytic activity/Vol]26 U/LNormal7-38[facility] on above:Order Comment: Specimen Type: BLOOD SPECIMENOrdering Facility: [facility] Address:[address] [place], [place] [address]Performed By: #### 12194-8 ####[facility] LABCLIA [id number] [place], [place] [address]Sltke gap [Moles/Vol]8 mmol/LLow9-18[facility] on above:Order Comment: Specimen Type: BLOOD SPECIMENOrdering Facility: [facility] Address:[address] [place], [place] [address]Performed By: #### 16771-8 ####[facility] LABCLIA [id number] [place], [place] [address]ZKY [Catalytic activity/Vol]22 U/WVhjlbi35-76SffkqnyllThe Christ Hospital on above:Order Comment: Specimen Type: BLOOD SPECIMENOrdering Facility: [facility] Address:[address] [place], [place] [address]Performed By: #### 87478-5 ####[facility] LABCLIA [id number] [place], [place] [address]Rykbtolmd [Mass/Vol]0.6 mg/dLNormal0.2-1.3CBlanchard Valley Health System on above:Order Comment: Specimen Type: BLOOD SPECIMENOrdering Facility: [facility] Address:[address] [place], [place] [address]Performed By: #### 80357-5 ####[facility] LABCLIA [id number] [place], [place] [address]Yzxxbow [Mass/Vol]9.3 mg/dLNormal8.5-10.2CBlanchard Valley Health System on above:Order Comment: Specimen Type: BLOOD SPECIMENOrdering Facility: [facility] Address:[address] [place], [place] [address]Performed By: #### 75108-3 ####[facility] LABCLIA [id number] [facility] HOSPITALRENATORUMSE[place], [place] [address]Ajzhhmhx [Moles/Vol]107 mmol/VPemw12-528NkfplsmolThe Christ Hospital on above:Order Comment: Specimen Type: BLOOD SPECIMENOrdering Facility: [facility] Address:[address] [place], [place] [address]Performed By: #### 57364-2 ####[facility] LABCLIA [id number] [facility] [place], [place] [address]NF1 [Moles/Vol]27 mmol/HRxsspz20-94TvquusbqcThe Christ Hospital on above:Order Comment: Specimen Type: BLOOD SPECIMENOrdering Facility: [facility] Address:[address] [place], [place] [address]Performed By: #### 34727-7 ####[facility] LABCLIA [id number] TONY GASPARRENATOENCOMPASS HE[facility] RE[facility] HOSP[facility] OF EAST [place]LEYJANICEL[place], [place] [address]Axshbqnzzh [Mass/Vol] 0.91 mg/dLNormal0.58-0.96[facility] on above:Order Comment: Specimen Type: BLOOD SPECIMENOrdering Facility: [facility] Address:[address] [place], [place] [address]Performed By: #### 39454-0 ####[facility] LABCLIA [id number] [facility] BRENTCOOS[facility] VALLEY MEDICAL CENTERBernieL[place]ED[place], [place] [address]MMESOVJAV GLOMERULAR FILTRATION RATE80 mL/min/1.73m??? Normal>=60[facility] on above:Order Comment: Specimen Type: BLOOD SPECIMENOrdering Facility: [facility] Address:[address] [place] [address]Result Comment: Estimated Glomerular Filtration Rate (eGFR) is calculated using the 2020 CKD-EPI creatinine equation. This equation utilizes serum creatinine, sex, and age as parameters. The creatinine assay has traceable calibration to isotope dilution-mass spectrometry. Refer to KDIGO guidelines for clinical interpretation. In patients with unstable renal function, e.g. those with acute kidney injury, the eGFR may not accurately reflect actual GFR.Performed By: #### 63678-3 ####[facility] LABIA [id number] [place] [address] Glucose [Mass/Vol]102 mg/xEPjha41-13ZfnlpbbpjThe Christ Hospital on above: Order Comment: Specimen Type: BLOOD SPECIMENOrdering Facility: [facility] Address:[address] [place] [address]Kbzrpg Comment: The [place] Diabetes Association (ADA) provides guidance for cutoff values for fast ing glucose and random glucose. The ADA defines [...] Standards of Medical Care in Diabetes 2016, [place] [employer] Association. Diabetes Care. 2016.39(Suppl 1).Performed By: #### 82349-0 ####[facility] LABIA [id number] [place], [place] [address]Jsdqhkgnl [Moles/Vol]4.0 mmol/LNormal3.7-5.1CBlanchard Valley Health System on above:Order Comment: Specimen Type: BLOOD SPECIMENOrdering Facility: [facility] Address:[address] [place] [address]Hanrgpziw By: #### 36106-3 ####[facility] LABCLIA [id number] [place], [place] [address]Menpmcj [Mass/Vol]6.6 g/dLNormal6.3-8.0[facility] on above:Order Comment: Specimen Type: BLOOD SPECIMENOrdering Facility: [facility] Address:[address] [place], [place] [address]Performed By: #### 25074-8 ####[facility] LABCLIA [id number] [place], [place] [address]Otixuk [Moles/Vol]142 mmol/GSlrcod199-704SgyidjytrThe Christ Hospital on above:Order Comment: Specimen Type: BLOOD SPECIMENOrdering Facility: [facility] Address:[address] [place], [place] [address]Performed By: #### 49171-9 ####[facility] LABCLIA [id number] [place], [place] [address]Bueo nitrogen [Mass/Vol]13 mg/dLNormal7-21[facility] on above:Order Comment: Specimen Type: BLOOD SPECIMENOrdering Facility: [facility] Address:[address] [place], [place] [address]Performed By: #### 96904-7 ####[facility] LABCLIA [id number] [place], [place] [address]Wqfhioal SerPl-mCncon 17-46-2669Pdtlsayt [Mass/Vol]198.0 ng/sMEbexuv64.7-205.1CBlanchard Valley Health System on above:Order Comment: Specimen Type: BLOOD SPECIMENOrdering Facility: [facility] Address:[address] [place], [place] [address]Performed By: #### 2276-4 ####[facility] LABCLIA [id number] [facility] [place] [address] [place] AMERICAIron and Iron binding capacity panelon 19-18-8526Ojkm [Mass/Vol]62 ug/tYRgziyo18-620UcfylcriyOur Lady Of Mercy Hospital Comment on above:Order Comment: Specimen Type: BLOOD SPECIMENOrdering Facility: [facility] Address:[address] [place], [place] [address] Performed By: #### 10945-4 ####[facility] LABCLIA [id number] [address] [place] Iron binding capacity [Mass/Vol]311 ug/aYZvujle411-789ZjxcxfzxoOur Lady Of Mercy Hospital Comment on above:Order Comment: Specimen Type: BLOOD SPECIMENOrdering Facility: [facility] Address:[address] [place], [place] [address] Performed By: #### 61021-7 ####[facility] LABCLIA [id number] [address] [place] Iron/TIBC [Molar ratio]19.9 %Ixzslw62.0-57.0[facility] Mercy HospitalComment on above:Order Comment: Specimen Type: BLOOD SPECIMENOrdering Facility: [facility] Address:[address] [place], [place] [address]Performed By: #### 63607-1 ####[facility] LABIA [id number] [address] Auto Differential panel (Bld)on 92-11-6747Mjpmmxnhs (Bld) [#/Vol]0.04 10*3/uLNormal <0.11CBlanchard Valley Health System on above:Order Comment: Specimen Type: BLOOD SPECIMENOrdering Facility: [facility] Address:[address] [place], [place] [address]Performed By: #### 99174-3 ####[facility] LABCLIA [id number] [place] [address] Basophils/100 WBC (Bld)1.0 %NormalThe Christ Hospital on above: Order Comment: Specimen Type: BLOOD SPECIMENOrdering Facility: [facility] Address:[address] [place] [address]Performed By: #### 88182-5 ####[facility] LABCLIA [id number] [place], [place] [address]Funjazpthaip cell count method Nom (Bld)AutoNormal [facility] on above:Order Comment: Specimen Type: BLOOD SPECIMENOrdering Facility: [facility] Address:[address] [place], [place] [address]Performed By: #### 30360-9 ####[facility] LABIA [id number] [place] [address] Eosinophils (Bld) [#/Vol]0.21 10*3/uLNormal<0.46[facility] Comment on above:Order Comment: Specimen Type: BLOOD SPECIMENOrdering Facility: [facility] Address:[address] [place] [address] Performed By: #### 06827-5 ####[facility] LABIA [id number] [place], [place] [address]Ctgctbdraqt/100 WBC (Bld)5.3 % NormalThe Christ Hospital on above:Order Comment: Specimen Type: BLOOD SPECIMENOrdering Facility: [facility] Address:[address] [place], [place] [address]Performed By: #### 50572-6 ####[facility] LABIA [id number] [place] [address] Erythrocyte distribution width (RBC) [Ratio]14.1 %Jpdnyd07.5-15.0[facility] on above:Order Comment: Specimen Type: BLOOD SPECIMENOrdering Facility: [facility] Address:[address] [place], [place] [address]Performed By: #### 41067-5 ####[facility] LABIA [id number] [place] [address] Hematocrit (Bld) [Volume fraction]38.1 %Imryhe14.0-46.0[facility] on above:Order Comment: Specimen Type: BLOOD SPECIMENOrdering Facility: [facility] Address:[address] [place], [place] [address]Performed By: #### 89913-8 ####[facility] LABCLIA [id number] [place], [place] [address]Jhwqhzmzgc (Bld) [Mass/Vol]12.2 g/vEEihelz15.5-15.5CBlanchard Valley Health System on above: Order Comment: Specimen Type: BLOOD SPECIMENOrdering Facility: [facility] Address:[address] [place], [place] [address]Performed By: #### 92360-1 ####[facility] LABCLIA [id number] [place], [place] [address]ZWXDCSRX GRAN %0.3 %NormalOur Lady Of Mercy Hospital Comment on above:Order Comment: Specimen Type: BLOOD SPECIMENOrdering Facility: [facility] Address:[address] [place] [address] Performed By: #### 07215-7 ####[facility] LABCLIA [id number] [place], [place] [address]CXVSVHWI GRAN ABS<0.03Normal <0.10[facility] on above:Order Comment: Specimen Type: BLOOD SPECIMENOrdering Facility: [facility] Address:[address] [place], [place] [address]Performed By: #### 00491-1 ####[facility] LABCLIA [id number] [place] [address] Lymphocytes (Bld) [#/Vol]1.37 10*3/uLNormal1.00-4.00[facility] Comment on above:Order Comment: Specimen Type: BLOOD SPECIMENOrdering Facility: [facility] Address:[address] [place] [address] Performed By: #### 87015-6 ####[facility] LABCLIA [id number] [place], [place] [address]Ishqnakrhly/100 WBC (Bld)34.3 % NormalThe Christ Hospital on above:Order Comment: Specimen Type: BLOOD SPECIMENOrdering Facility: [facility] Address:[address] [place], [place] [address]Performed By: #### 22993-1 ####[facility] LABIA [id number] [place], [place] [address]NVK (RBC) [Entitic mass]27.2 sjCerdjn68.0-34.0[facility] on above:Order Comment: Specimen Type: BLOOD SPECIMENOrdering Facility: [facility] Address:[address] [place], [place] [address]Performed By: #### 58354-8 ####[facility] [id number] [place], [place] [address]ZPZT (RBC) [Mass/Vol]32.0 g/bBKucsbj74.5-36.0 [facility] on above:Order Comment: Specimen Type: BLOOD SPECIMENOrdering Facility: [facility] Address:[address] [place], [place] [address]Performed By: #### 05212-8 ####[facility] LABIA [id number] [place], [place] [address]XGF (RBC) [Entitic vol]85.0 gVKtnbbx14.0-100.0[facility] on above: Order Comment: Specimen Type: BLOOD SPECIMENOrdering Facility: [facility] Address:[address] [place], [place] [address]Performed By: #### 29052-5 ####[facility] LABIA [id number] [place], [place] [address]Qdxkqmmes (Bld) [#/Vol]0.46 10*3/uLNormal<0.87[facility] on above:Order Comment: Specimen Type: BLOOD SPECIMENOrdering Facility: [facility] Address:[address] [place], [place] [address]Performed By: #### 11759-3 ####[facility] LABCLIA [id number] [place] [address] Monocytes/100 WBC (Bld)11.5 %NormalThe [facility] on above: Order Comment: Specimen Type: BLOOD SPECIMENOrdering Facility: [facility] Address:[address] [place], [place] [address]Performed By: #### 34218-7 ####[facility] LABCLIA [id number] [place], [place] [address]Mdqzdysklui (Bld) [#/Vol]1.91 10*3/uLNormal1.45-7.50 [facility] on above:Order Comment: Specimen Type: BLOOD SPECIMENOrdering Facility: [facility] Address:[address] [place], [place] [address]Performed By: #### 44459-7 ####[facility] LABCLIA [id number] [place] [address] Neutrophils/100 WBC (Bld)47.6 %NormalThe [facility] on above: Order Comment: Specimen Type: BLOOD SPECIMENOrdering Facility: [facility] Address:[address] [place], [place] [id number] By: #### [id number] ####[facility] LABCLIA [id number] [place], [place] [address]Mpubgiwdk RBC (Bld) [#/Vol]10*3/uLNormal<0.01[facility] on above:Order Comment: Specimen Type: BLOOD SPECIMENOrdering Facility: [facility] Address:[address] [place], [place] [address]Performed By: #### 21432-9 ####[facility] LABCLIA [id number] [place], [place] [address]Ttfhoecpn RBC/100 WBC (Bld) [Ratio]0.0 /100 WBCNormalCBlanchard Valley Health System on above:Order Comment: Specimen Type: BLOOD SPECIMENOrdering Facility: [facility] Address:[address] [place], [place] [address]Performed By: #### 18071-7 ####[facility] LABCLIA [id number] [place], [place] [address]Abdtbgla mean volume (Bld) [Entitic vol]9.6 fL Normal9.0-12.7CBlanchard Valley Health System on above:Order Comment: Specimen Type: BLOOD SPECIMENOrdering Facility: [facility] Address:[address] [place], [place] [address]Performed By: #### 93352-2 ####[facility] LABCLIA [id number] [place] [address] Platelets (Bld) [#/Vol]265 10*3/uYXgsptk150-628DhmivovxjThe [facility] on above:Order Comment: Specimen Type: BLOOD SPECIMENOrdering Facility: [facility] Address:[address] [place] [address] Performed By: #### 91762-2 ####[facility] LABCLIA [id number] [place], [place] [address]CLE (Bld) [#/Vol]4.48 10*6/uL Normal3.90-5.20[facility] on above:Order Comment: Specimen Type: BLOOD SPECIMENOrdering Facility: [facility] Address:[address] [place], [place] [address]Performed By: #### 13373-2 ####[facility] LABCLIA [id number] [place], [place] [address]QPJ (Bld) [#/Vol]4.00 10*3/uLNormal3.70-11.00[facility] HospitalvelandComment on above:Order Comment: Specimen Type: BLOOD SPECIMENOrdering Facility: [facility] Address:[place] [address]Diaqmhoav By: #### 95560-7 ####[facility] LABCLIA [id number] [place], [place] [address]Eij Immature Gran<0.03<0.10 k/uLMckitrick HospitalBasophils (Bld) [#/Vol]0.04 10*3/uL <0.11 k/uLMckitrick HospitalBasophils/100 WBC (Bld)1.0 %[facility] Differential cell count method Nom (Bld)AutoCleveland ClinicEosinophils (Bld) [#/Vol]0.21 10*3/uL<0.46 k/uLMckitrick HospitalEosinophils/100 WBC (Bld)5.3 % Mckitrick HospitalErythrocyte distribution width (RBC) [Ratio]14.1 %11.5 - 15.0 % [facility]ckitrick HospitalHematocrit (Bld) [Volume fraction]38.1 %36.0 - 46.0 %[facility]ckitrick HospitalHemoglobin (Bld) [Mass/Vol]12.2 g/dL11.5 - 15.5 g/dLMckitrick Hospital Immature Gran %0.3 %[facility]ckitrick HospitalLymphocytes (Bld) [#/Vol]1.37 10*3/uL1.00 - 4.00 k/uLMckitrick HospitalLymphocytes/100 WBC (Bld)34.3 %[facility] Vincent Medical CenterH (RBC) [Entitic mass]27.2 pg26.0 - 34.0 pgClevelSteven Community Medical CenterHC (RBC) [Mass/Vol] 32.0 g/dL30.5 - 36.0 g/dLMercy Health St. Vincent Medical CenterV (RBC) [Entitic vol]85.0 fL80.0 - 100.0 fLCleveland Madison HospitalMonocytes (Bld) [#/Vol]0.46 10*3/uL<0.87 k/uLMckitrick HospitalMonocytes/100 WBC (Bld)11.5 %Mckitrick HospitalNeutrophils (Bld) [#/Vol]1.91 10*3/uL1.45 - 7.50 k/uLSaint Louis ClinicNeutrophils/100 WBC (Bld)47.6 %Mckitrick HospitalNucleated RBC (Bld) [#/Vol]10*3/uL<0.01 k/uLSaint Louis ClinicNucleated RBC/100 WBC (Bld) [Ratio]0.0 /100 WBCSaint Louis ClinicPlatelet mean volume (Bld) [Entitic vol]9.6 fL9.0 - 12.7 fLCmedina hospital ClinicPlatelets (Bld) [#/Vol]265 10*3/uL150 - 400 k/[facility] ClinicRBC (Bld) [#/Vol]4.48 10*6/uL3.90 - 5.20 m/[facility] CampusWBC (Bld) [#/Vol]4.00 10*3/uL3.70 - 11.00 k/[facility] CampusCNPNon [id number] (HEMTSA) NEEL GARCIA ([id number]) 1980 F Date Time Provider Department 10/06/21 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 - traZODone (DESYREL) 50 mg tablet TAKE 1 TABLET BY MOUTH EVERYDAY AT BEDTIME - sertraline (ZOLOFT) 100 mg tablet Take 100 mg by mouth. Facility-Administered Medications as of 10/06/2021 - NaCl 0.9% [...] 09/29/2021 Encounter Status:Closed by VIKA TURCIOS on 10/06/21NormalCWadsworth-Rittman HospitalFerritin SerPl-mCncon 97-23-1845Oszvuqmd [Mass/Vol]24.6 ng/mL Btbaoj30.7-205.1CBlanchard Valley Health System on above:Order Comment: Specimen Type: BLOOD SPECIMENOrdering Facility: [facility] Address:[facility] [place] [address]Performed By: #### 2276-4, 55103-3 ####[facility] LABGIFF[facility] [id number] [place] [address] [place] OF AMERICAIron and Iron binding capacity panelon 28-99-9282Zdwv [Mass/Vol]33 ug/xZOtg66-755OpqxhqkkuThe [facility] on above:Order Comment: Specimen Type: BLOOD SPECIMENOrdering Facility: [facility] Address:[facility] [address]Performed By: #### 2276-4, 38275-2 ####[facility] LABIA [id number] [address] [address] [place] OF AMERICAIron binding capacity [Mass/Vol]426 ug/gTAwqt610-178Skdsepxra Clinic ClevelandComment on above:Order Comment: Specimen Type: BLOOD SPECIMENOrdering Facility: [facility] Address:[address] [place] [address] [place] [id number] By: #### 2276-4, 99771-6 ####[facility] LABIA [id number] [address] STATES OF [facility] MEDICAL CENTERIron/TIBC [Molar ratio]7.7 %Low15.0-57.0[facility] Comment on above:Order Comment: Specimen Type: BLOOD SPECIMENOrdering Facility: [facility] Address:[address] [place] [address] [place] [id number] Performed By: #### 2276-4, 86645-8 ####[facility] LABIA [id number] [address] OF ROSA M CNPCathie 86-94-2008LWAYMnjlezmgi (HEMASA) NEEL GARCIA ([id number]) 1980 F Date Time Provider Department 09/29/21 [...] for Monoferric on 10/06 and follow up 7/22. Patient has been notified. Vanna Villar Allergies [...] 09/29/2021 Encounter Status:Closed by NEHEMIAS WARD on 09/29/21NormalCCity Hospital W Auto Differential panel (Bld)on 01-79-6639Bntrbsemz (Bld) [#/Vol] 0.04 10*3/uLNormal<0.11CBlanchard Valley Health System on above:Order Comment: Specimen Type: BLOOD SPECIMENOrdering Facility: [facility] Address:[address] [place], [place] [address]Performed By: #### 59282-2, 79762-9 ####[facility] LABCLIA [id number] [place], [place] [address]Dsvmhbeul/100 WBC (Bld)0.8 %NormalThe Christ Hospital on above:Order Comment: Specimen Type: BLOOD SPECIMENOrdering Facility: [facility] Address:[address] [place], [place] [address]Performed By: #### 49698-4, 87560-1 ####[facility] LABCLIA [id number] [place], [place] [address]Qdjleagjaanf cell count method Nom (Bld)AutoNormalCBlanchard Valley Health System on above: Order Comment: Specimen Type: BLOOD SPECIMENOrdering Facility: [facility] Address:[address] [place], [place] [address]Performed By: #### 87985-7, 22656-2 ####[facility] LABCLIA [id number] [place], [place] [address]Leybvvheogf (Bld) [#/Vol]0.27 10*3/uLNormal <0.46[facility] on above:Order Comment: Specimen Type: BLOOD SPECIMENOrdering Facility: [facility] Address:[address] [place], [place] [address]Performed By: #### 81423-4, 52616-8 ####[facility] LABCLIA [id number] [place], [place] [address]Xhjyxquxgpb/100 WBC (Bld)5.6 %NormalThe Christ Hospital on above:Order Comment: Specimen Type: BLOOD SPECIMENOrdering Facility: [facility] Address:[address] [place], [place] [address]Performed By: #### 11863-6, 84533-8 ####[facility] LABIA [id number] [place], [place] [address]Chsvvvwtujw distribution width (RBC) [Ratio]13.7 %Vifcoh43.5-15.0[facility] on above: Order Comment: Specimen Type: BLOOD SPECIMENOrdering Facility: [facility] Address:[address] [place], [place] [address]Performed By: #### 30771-2, 41831-8 ####[facility] LABIA [id number] [place], [place] [address]Njutaxgekq (Bld) [Volume fraction]37.2 % Lopeti37.0-46.0[facility] on above:Order Comment: Specimen Type: BLOOD SPECIMENOrdering Facility: [facility] Address:[address] [place], [place] [address]Performed By: #### 29158-1, 67890-8 ####[facility] LABCLIA [id number] [place], [place] [address]Upszwswhkw (Bld) [Mass/Vol]11.8 g/fDCbnkim18.5-15.5 [facility] on above:Order Comment: Specimen Type: BLOOD SPECIMENOrdering Facility: [facility] Address:[address] [place], [place] [address]Performed By: #### 79827-6, 04578-5 ####[facility] LABIA [id number] [place], [place] [address]KNDTFUUC GRAN %0.2 %NormalThe Christ Hospital on above:Order Comment: Specimen Type: BLOOD SPECIMENOrdering Facility: [facility] Address:[address] [place], [place] [address]Performed By: #### 32571-1, 45237-1 ####[facility] LABIA [id number] [place], [place] [address]JFRDXBXI GRAN ABS<0.03Normal<0.10[facility] on above:Order Comment: Specimen Type: BLOOD SPECIMENOrdering Facility: [facility] Address:[address] [place], [place] [address]Performed By: #### 29710-1, 48751-8 ####[facility] LABIA [id number] [place], [place] [address]Xhfrncgrpji (Bld) [#/Vol]1.88 10*3/uLNormal1.00-4.00[facility] on above:Order Comment: Specimen Type: BLOOD SPECIMENOrdering Facility: [facility] Address:[address] [place], [place] [address]Performed By: #### 81083-0, 82480-2 ####[facility] LABIA [id number] [place], [place] [address]Znexhfxdwmg/100 WBC (Bld)38.9 %NormalOur Lady Of Mercy HospitalComment on above:Order Comment: Specimen Type: BLOOD SPECIMENOrdering Facility: [facility] Address:[address] [place], [place] [address]Performed By: #### 30614-2, 89590-2 ####[facility] LABCLIA [id number] [place], [place] [address]SCE (RBC) [Entitic mass]27.3 hkCdopoh53.0-34.0[facility] on above:Order Comment: Specimen Type: BLOOD SPECIMENOrdering Facility: [facility] Address:[address] [place], [place] [address]Performed By: #### 91521-5, 17703-9 ####[facility] LABCLIA [id number] [place], [place] [address]ROKT (RBC) [Mass/Vol]31.7 g/zTOirwgr61.5-36.0[facility] Comment on above:Order Comment: Specimen Type: BLOOD SPECIMENOrdering Facility: [facility] Address:[address] [place] [address] Performed By: #### 26734-6, 50503-8 ####[facility] LABCLIA [id number] [place], [place] [address]GYC (RBC) [Entitic vol]85.9 hVNhzeiy82.0-100.0[facility] on above:Order Comment: Specimen Type: BLOOD SPECIMENOrdering Facility: [facility] Address:[address] [place], [place] [address]Performed By: #### 48458-3, 07098-3 ####[facility] LABCLIA [id number] [place], [place] [address]Vtjqcwnri (Bld) [#/Vol]0.56 10*3/uLNormal <0.87[facility] on above:Order Comment: Specimen Type: BLOOD SPECIMENOrdering Facility: [facility] Address:[address] [place], [place] [address]Performed By: #### 98634-4, 75598-3 ####[facility] LABCLIA [id number] [place], [place] [address]Lqfjqdhvj/100 WBC (Bld)11.6 %NormalThe Christ Hospital on above:Order Comment: Specimen Type: BLOOD SPECIMENOrdering Facility: [facility] Address:[address] [place], [place] [address]Performed By: #### 48618-1, 82195-4 ####[facility] LABCLIA [id number] [place], [place] [address]Ejvyzqwxqpb (Bld) [#/Vol]2.07 10*3/uLNormal1.45-7.50[facility] on above:Order Comment: Specimen Type: BLOOD SPECIMENOrdering Facility: [facility] Address:[address] [place], [place] [address]Performed By: #### 40677-2, 39836-8 ####[facility] LABCLIA [id number] [place], [place] [address]Lxwbibponoa/100 WBC (Bld)42.9 %NormalThe Christ Hospital on above:Order Comment: Specimen Type: BLOOD SPECIMENOrdering Facility: [facility] Address:[address] [place], [place] [address]Performed By: #### 72520-6, 66835-1 ####[facility] LABCLIA [id number] [place], [place] [address]Jyoprhval RBC (Bld) [#/Vol]10*3/uLNormal<0.01[facility] on above:Order Comment: Specimen Type: BLOOD SPECIMENOrdering Facility: [facility] Address:[address] [place] [address]Performed By: #### 18189-6, 19634-0 ####[facility] LABCLIA [id number] [place], [place] [address]Paxtbzdde RBC/100 WBC (Bld) [Ratio]0.0 /100 WBCNormalCWadsworth-Rittman HospitalComment on above:Order Comment: Specimen Type: BLOOD SPECIMENOrdering Facility: [facility] Address:[address] [place], [place] [address]Performed By: #### 40171-3, 21418-8 ####[facility] LABCLIA [id number] [place], [place] [address]Jtsrwpbd mean volume (Bld) [Entitic vol]9.6 fLNormal 9.0-12.7CWadsworth-Rittman HospitalCommclaren central [place] on above:Order Comment: Specimen Type: BLOOD SPECIMENOrdering Facility: [facility] Address:[address] [place], [place] [address]Performed By: #### 64576-4, 31315-3 ####[facility] LABCLIA [id number] [place], [place] [address]Zqcdfoqwc (Bld) [#/Vol]234 10*3/bUHbbuej988-139GodecojdfOur Lady Of Mercy Hospital Comment on above:Order Comment: Specimen Type: BLOOD SPECIMENOrdering Facility: [facility] Address:[address] [place] [address] Performed By: #### 75425-3, 90485-9 ####[facility] LABCLIA [id number] [place], [place] [address]KBS (Bld) [#/Vol]4.33 10*6/uLNormal3.90-5.20[facility] Mercy HospitalCommclaren [facility] [place] on above:Order Comment: Specimen Type: BLOOD SPECIMENOrdering Facility: [facility] Address:[address] [place], [place] [address]Performed By: #### 63820-1, 90543-7 ####[facility] LABCLIA [id number] [place], [place] [address]RZB (Bld) [#/Vol]4.83 10*3/uLNormal3.70-11.00[facility] on above:Order Comment: Specimen Type: BLOOD SPECIMENOrdering Facility: [facility] Address:[address] [place], [place] [address] [id number] By: #### 17589-4, 98239-5 ####[facility] LABCLIA [id number] [place], [place] [address]RALDMUks 97-85-8191YCDLCADbpsr (SP) Office (HEMASA) NEEL GARCIA ([id number]) 1980 F Date Time Provider Department 09/28/21 [...] provide more details. She was born in [place] and has lived in [place] in the past. She reports occasional smoking - cigars that are dipped in cognac - last use a month back. Occasional alcohol use. No other substance abuse reported. She lives with her with 5 children. She is not working now but used to work at [employer] (was laid off during COVID-). MEDICATIONS AND [...] which included preparing to see the patient, bhpl-ba-mfzx patient care, completing clinical documentation, obtaining and/or reviewing separately obtained history, performing a medically appropriate examination, counseling and educating the patient/family/caregiver, ordering medications, tests, or procedures, independently interpreting results (not separately reported) and communicating results to the patient/family/caregiver. CC: Blade Bryan (more content not included)...NormalOur Lady Of Mercy HospitalFERRITIN BLDon 35-54-7525Bqteuicl [Mass/Vol]22.9 ng/sIElfrmf66.7-205.1CBlanchard Valley Health System on above:Order Comment: Specimen Type: BLOOD SPECIMENOrdering Facility: [facility] Address:[address] [place], [place] [address]Performed By: #### IRON, FERR ####[facility] LABCLIA [id number] [place] [address] [place] OF AMERICAIRON + TIBCon 98-64-0491Wnhd [Mass/Vol]44 ug/oXJfvxuq06-866QsijrnlbvThe [facility] Hospital on above:Order Comment: Specimen Type: BLOOD SPECIMENOrdering Facility: [facility] Address:[address] [place], [place] [address]Performed By: #### IRON, FERR ####[facility] LABCLIA [id number] [place] [address] [place] AMERICAIron binding capacity [Mass/Vol]415 ug/sFLyvv579-625PkhuovzeeThe [facility] Hospital on above:Order Comment: Specimen Type: BLOOD SPECIMENOrdering Facility: [facility] Address:[address] [place], [place] [address]Performed By: #### IRON, FERR ####[facility] LABCLIA [id number] [place] [address] [place] AMERICAIron/TIBC [Molar ratio]11 %Blw84-24IvvlycqseOur Lady Of Mercy Hospital Comment on above:Order Comment: Specimen Type: BLOOD SPECIMENOrdering Facility: [facility] Address:[address] [place] [address] Performed By: #### IRON, FERR ####[facility] LABCLIA [id number] [place] [address] [place] M Retics #on 85-52-3329Tzildqbqreuii (Bld) [#/Vol]0.73747 10*3/uLNormal0.018-0.100 [facility] on above:Order Comment: Specimen Type: BLOOD SPECIMENOrdering Facility: [facility] Address:[address] [place], [place] [address]Performed By: #### 75842-1, 22951-6 ####[facility] LABCLIA [id number] [place], [place] [address]Gocdpbyaxcjkv (Bld) [#/Vol]on 74-48-4638Qbsicviycmdhs/100 RBC (Bld)1.0 % Normal0.4-2.0[facility] on above:Order Comment: Specimen Type: BLOOD SPECIMENOrdering Facility: [facility] Address:[address] [place], [place] [address]Performed By: #### 05714-2, 64998-5 ####[facility] LABCLIA [id number] [place], [place] [address]XZC,Quantitativeon 34-86-7405UPO,Quantitative< 0.60Normal [facility] HospitalComment on above:Result Comment: Approximate Approximate hCG Gestational Age Range (mIU/ml) (weeks) 0.2-1 5-50 1-2 50-500 2-3 100-5,000 3-4 500-10,000 4-5 1,000-50,000 5-6 10,000-100,000 6-8 15,000-200,000 8-12 10,000-100,000 PERFORMED BY: [facility] [address] [place] [id number] PATHOLOGIST RETAIL ADMINISTRATIVE ASSISTANT EDIN MONTERROSO M.D.Performed By: #### HCGQNT #### [address] [address] USASerum or plasma beta choriogonadotropin measurement (units/volume)Ordered By: Bryan Quiros on 19-94-3390CUS.beta subunit Qnm[IU]/mL [facility] HospitalComment on above:Approximate Approximate hCG Gestational Age Range (mIU/ml) (weeks) 0.2-1 5-50 1-2 50-500 2-3 100-5,000 3-4 500-10,000 4-5 1,000-50,000 5-6 10,000-100,000 6-8 15,000-200,000 8-12 10,000-100,000 [facility] [place] 88-72-7004SIOR-CoV-2 (COVID-19) RNA JULEE+probe Ql (Unsp spec) NegativeNormalNegativePromedica Flower HospitalComment on above:Order Comment: Healthcare Worker?: NResult Comment: Testing for SARS-CoV-2 by RT-PCR This test was developed and its performance characteristics determined by [employer] ([employer]) and validated at the [facility]. This test has not been FDA [...] is terminated or revoked sooner. PERFORMED BY: [facility] [address] [id number] PATHOLOGIST RETAIL ADMINISTRATIVE ASSISTANT EDIN MONTERROSO M.D.Performed By: #### COVID 19 [facility] [place] #### [place] [address] USACOVID-19 Positive/NegativeOrdered By: Bryan Quiros on 08-11-2368OKTE-CoV-2 (COVID-19) N gene JULEE+probe Ql (Resp)NegativeNegative [facility] HospitalComment on above:Testing for SARS-CoV-2 by RT-PCR This test was developed and its performance characteristics determined by [employer] ([employer]) and validated at the [facility]. This test has not been FDA [...] of time the declaration that circumstances exist ju stifying the authorization of the emergency use of in vitro diagnostic tests for detection of SARS-CoV-2 virus and/or diagnosis of COVID-19 infection under section 564(b)(1) of the Act, 21 U.S.C. 360bbb-3(b)(1), unless the authorization is terminated or revoked sooner.CBC W Auto Differential panel (Bld)on 57-14-7857Qjjuhoawi (Bld) [#/Vol]0.04 10*3/uLNormal<0.11CBlanchard Valley Health System on above:Order Comment: Specimen Type: BLOOD SPECIMENOrdering Facility: [facility] Address:[address] [place], [place] [address]Performed By: #### 34152-1 ####[facility] LABCLIA [id number] [place], [place] [address]Mmqicwjeg/100 WBC (Bld) 1.0 %NormalThe Christ Hospital on above:Order Comment: Specimen Type: BLOOD SPECIMENOrdering Facility: [facility] Address:[address] [place], [place] [address]Performed By: #### 53603-7 ####[facility] LABCLIA [id number] [place] [address] Differential cell count method Nom (Bld)AutoNormalCWadsworth-Rittman Hospital Comment on above:Order Comment: Specimen Type: BLOOD SPECIMENOrdering Facility: [facility] Address:[address] [place] [address] Performed By: #### 00832-9 ####[facility] LABCLIA [id number] [place], [place] [address]Repcmdhkqne (Bld) [#/Vol]0.18 10*3/uLNormal<0.46[facility] on above:Order Comment: Specimen Type: BLOOD SPECIMENOrdering Facility: [facility] Address:[address] [place], [place] [address]Performed By: #### 11155-8 ####[facility] LABCLIA [id number] [place], [place] [address]Plapgxbkrkp/100 WBC (Bld)4.6 %NormalThe Christ Hospital on above:Order Comment: Specimen Type: BLOOD SPECIMENOrdering Facility: [facility] Address:[address] [place], [place] [address]Performed By: #### 95579-0 ####[facility] LABCLIA [id number] [place], [place] [address]Jrwxvizjetc distribution width (RBC) [Ratio]14.9 %Smitxa48.5-15.0[facility] Comment on above:Order Comment: Specimen Type: BLOOD SPECIMENOrdering Facility: [facility] Address:[address] [place] [address] Performed By: #### 63338-4 ####[facility] [id number] [place], [place] [address]Vrmovtllmi (Bld) [Volume fraction]38.6 %Hyrdpe60.0-46.0[facility] HospitalComment on above:Order Comment: Specimen Type: BLOOD SPECIMENOrdering Facility: [facility] Address:[address] [place], [place] [address]Performed By: #### [id number] ####[facility] [id number] [place], [place] [address]Njbxyytmqg (Bld) [Mass/Vol]12.2 g/zTMqmlgc34.5-15.5 [facility] HospitalComment on above:Order Comment: Specimen Type: BLOOD SPECIMENOrdering Facility: [facility] Address:[address] [place], [place] [address]Performed By: #### 89296-4 ####[facility] [id number] [place], [place] [address]QKOCVVGO GRAN %0.3 %NormalThe [facility] on above:Order Comment: Specimen Type: BLOOD SPECIMENOrdering Facility: [facility] Address:[address] [place], [place] [address]Performed By: #### 66383-0 ####[facility] [id number] [place], [place] [address]SZPQJMHX GRAN ABS<0.03Normal<0.10[facility] on above:Order Comment: Specimen Type: BLOOD SPECIMENOrdering Facility: [facility] Address:[address] [place], [place] [address]Performed By: #### 13399-0 ####[facility] LABCLIA [id number] [place], [place] [address]Rikvroqdeut (Bld) [#/Vol]1.57 10*3/uLNormal1.00-4.00[facility] on above: Order Comment: Specimen Type: BLOOD SPECIMENOrdering Facility: [facility] Address:[address] [place], [place] [address]Performed By: #### 22359-3 ####[facility] [id number] [place], [place] [address]Wnroaayrlca/100 WBC (Bld)40.4 %NormalThe Christ Hospital on above:Order Comment: Specimen Type: BLOOD SPECIMENOrdering Facility: [facility] Address:[address] [place], [place] [address]Performed By: #### 33563-3 ####[facility] LABCLIA [id number] [place], [place] [address]SJK (RBC) [Entitic mass]27.2 iyZqrnfp50.0-34.0[facility] on above:Order Comment: Specimen Type: BLOOD SPECIMENOrdering Facility: [facility] Address:[address] [place], [place] [address]Performed By: #### 70776-1 ####[facility] LABCLIA [id number] [place], [place] [address]ZJRC (RBC) [Mass/Vol]31.6 g/mIGtjysw47.5-36.0[facility] on above:Order Comment: Specimen Type: BLOOD SPECIMENOrdering Facility: [facility] Address:[address] [place], [place] [address]Performed By: #### 37294-0 ####[facility] LABCLIA [id number] [place], [place] [address]LBK (RBC) [Entitic vol]86.2 mYMaramt76.0-100.0[facility] on above: Order Comment: Specimen Type: BLOOD SPECIMENOrdering Facility: [facility] Address:[address] [place], [place] [address]Performed By: #### 90638-0 ####[facility] LABIA [id number] [place], [place] [address]Hfcywpmuk (Bld) [#/Vol]0.43 10*3/uLNormal<0.87[facility] on above:Order Comment: Specimen Type: BLOOD SPECIMENOrdering Facility: [facility] Address:[address] [place], [place] [address]Performed By: #### 12126-3 ####[facility] LABIA [id number] [place] [address] Monocytes/100 WBC (Bld)11.1 %NormalThe Christ Hospital on above: Order Comment: Specimen Type: BLOOD SPECIMENOrdering Facility: [facility] Address:[address] [place], [place] [address]Performed By: #### 89409-2 ####[facility] LABIA [id number] [place], [place] [address]Heqxldorspx (Bld) [#/Vol]1.66 10*3/uLNormal1.45-7.50 [facility] on above:Order Comment: Specimen Type: BLOOD SPECIMENOrdering Facility: [facility] Address:[address] [place], [place] [address]Performed By: #### 38574-6 ####[facility] LABIA [id number] [place] [address] Neutrophils/100 WBC (Bld)42.6 %NormalThe [facility] Hospital on above: Order Comment: Specimen Type: BLOOD SPECIMENOrdering Facility: [facility] Address:[address] [place], [place] [address]Performed By: #### 37380-0 ####[facility] LABCLIA [id number] [place], [place] [address]Rojiqzcmr RBC (Bld) [#/Vol]10*3/uLNormal<0.01[facility] on above:Order Comment: Specimen Type: BLOOD SPECIMENOrdering Facility: [facility] Address:[address] [place], [place] [address]Performed By: #### 86582-4 ####[facility] LABIA [id number] [place], [place] [address]Wzupgrbvm RBC/100 WBC (Bld) [Ratio]0.0 /100 WBCNormalCBlanchard Valley Health System on above:Order Comment: Specimen Type: BLOOD SPECIMENOrdering Facility: [facility] Address:[address] [place], [place] [address]Performed By: #### 07601-9 ####[facility] LABIA [id number] [place], [place] [address]Puqrbpgi mean volume (Bld) [Entitic vol]10.2 fL Normal9.0-12.7CBlanchard Valley Health System on above:Order Comment: Specimen Type: BLOOD SPECIMENOrdering Facility: [facility] Address:[address] [place] [address]Performed By: #### 58083-0 ####[facility] LABIA [id number] [place] [address] Platelets (Bld) [#/Vol]279 10*3/mMKssety438-783UbgnfrhtnThe Christ Hospital on above:Order Comment: Specimen Type: BLOOD SPECIMENOrdering Facility: [facility] Address:[address] [place], [place] [address] Performed By: #### 75911-2 ####[facility] LABCLIA [id number] [place], [place] [address]KWS (Bld) [#/Vol]4.48 10*6/uL Normal3.90-5.20[facility] on above:Order Comment: Specimen Type: BLOOD SPECIMENOrdering Facility: [facility] Address:[address] [place], [place] [address]Performed By: #### 81982-0 ####[facility] LABCLIA [id number] [place], [place] [address]ZYF (Bld) [#/Vol]3.89 10*3/uLNormal3.70-11.00[facility] on above:Order Comment: Specimen Type: BLOOD SPECIMENOrdering Facility: [facility] Address:[address] [place], [place] [address]Performed By: #### 76789-2 ####[facility] LABCLIA [id number] [place], [place] [address]CKAEWPme [phone] (SP) Office ([place]) NEEL GARCIA ([id number]) 1980 F Date Time Provider Department 08/14/21 [...] provide more details. She was born in [place] and has lived in [place] in the past. She reports occasional smoking - cigars that are dipped in cognac - last use a month back. Occasional alcohol use. No other substance abuse reported. She lives with her with 5 children. She is not working now but used to work at [employer] (was laid off during COVID-19). MEDICATIONS AND [...] which included preparing to see the patient, xify-by-rdzs patient care, completing clinical documentation, obtaining and/or reviewing separately obtained history, performing a medically appropriate examination, counseling and educating the patient/family/caregiver, ordering medications, tests, or procedures, independently interpreting results (not separately reported) and communicating results to the patient/family/caregiver. CC: Blade Crews Sr. Referring Provider: NEHEMIAS WARD [[id number]] Allergies As of Date: 08/14/2021 (No Known Allergies) Date Reviewed: 08/14/2021 Reviewed by: Aranza Mobley MA - Fully Assessed Reason for Visit: Anemia [6] Cmt: 1 month follow up Primary Visit Diagnosis:Iron deficiency anemia, unspecified iron deficiency anemia type [D50.9] Order(s):CBC + DIFF [SQCBCDIF] Order #: [id number] FUTURE RETIC C (more content not included)...NormalOur Lady Of Mercy HospitalIRON + TIBCon 47-82-1446Pflf [Mass/Vol]61 ug/vVBombvl66-398TuwgkibdsOur Lady Of Mercy Hospital Comment on above:Order Comment: Specimen Type: BLOOD SPECIMENOrdering Facility: [facility] Address:[address] [place] [address] [place] [address] Result Comment: Results may be falsely increased due to interference from hemolysis. Suggest reorder as clinically indicated.Performed By: #### IRON ####[facility] LABCLIA [id number] [address] STATES NORTHWELL HEALTHIron binding capacity [Mass/Vol] NormalThe [facility] Hospital on above:Order Comment: Specimen Type: BLOOD SPECIMENOrdering Facility: [facility] Address:[address] [place], [place] [address]Result Comment: Unable to calculate due to hemolysis.Performed By: #### IRON ####[facility] LABCLIA [id number] [place] [address] [place] M Iron/TIBC [Molar ratio]NormalThe [facility] Hospital on above:Order Comment: Specimen Type: BLOOD SPECIMENOrdering Facility: [facility] Address:[address] [place], [place] [address]Result Comment: Unable to calculate due to hemolysis.Performed By: #### IRON ####[facility] LABCLIA [id number] [address]CB W Auto Differential panel (Bld)on 06-26-2021 Basophils (Bld) [#/Vol]0.04 10*3/uLNormal<0.11CBlanchard Valley Health System on above:Order Comment: Specimen Type: BLOOD SPECIMENOrdering Facility: [facility] Address:[address] [place] [address] Performed By: #### 82373-3 ####[facility] LABCLIA [id number] [place], [place] [address]Teabcobdc/100 WBC (Bld)0.8 % [facility] on above:Order Comment: Specimen Type: BLOOD SPECIMENOrdering Facility: [facility] Address:[address] [place], [place] [address]Performed By: #### 72619-6 ####[facility] LABCLIA [id number] [place] [address] Differential cell count method Nom (Bld)AutoNormalCWadsworth-Rittman Hospital Comment on above:Order Comment: Specimen Type: BLOOD SPECIMENOrdering Facility: [facility] Address:[address] [place] [address] Performed By: #### 17750-7 ####[facility] LABCLIA [id number] [place], [place] [address]Stcffncmxbm (Bld) [#/Vol]0.14 10*3/uLNormal<0.46[facility] on above:Order Comment: Specimen Type: BLOOD SPECIMENOrdering Facility: [facility] Address:[address] [place], [place] [address]Performed By: #### 44828-4 ####[facility] LABCLIA [id number] [place], [place] [address]Emzriftviej/100 WBC (Bld)2.9 %NormalThe [facility] Hospital on above:Order Comment: Specimen Type: BLOOD SPECIMENOrdering Facility: [facility] Address:[address] [place], [place] [address]Performed By: #### 21888-7 ####[facility] LABCLIA [id number] [place], [place] [address]Tgkbfgmuccx distribution width (RBC) [Ratio]15.4 %High11.5-15.0[facility] Comment on above:Order Comment: Specimen Type: BLOOD SPECIMENOrdering Facility: [facility] Address:[address] [place] [address] Performed By: #### 88641-7 ####[facility] LABCLIA [id number] [place], [place] [address]Dirfjzqgda (Bld) [Volume fraction]38.8 %Bxmiww91.0-46.0[facility] on above:Order Comment: Specimen Type: BLOOD SPECIMENOrdering Facility: [facility] Address:[address] [place], [place] [address]Performed By: #### 42802-3 ####[facility] LABCLIA [id number] [place], [place] [address]Zknncwbfkz (Bld) [Mass/Vol]12.4 g/vHFuplie59.5-15.5 [facility] on above:Order Comment: Specimen Type: BLOOD SPECIMENOrdering Facility: [facility] Address:[address] [place], [place] [address]Performed By: #### 64608-6 ####[facility] LABIA [id number] [place], [place] [address]HLAJFUFN GRAN %0.2 %NormalThe [facility] Hospital on above:Order Comment: Specimen Type: BLOOD SPECIMENOrdering Facility: [facility] Address:[address] [place], [place] [address]Performed By: #### 36856-3 ####[facility] LABCLIA [id number] [place], [place] [address]JBFQPFCA GRAN ABS<0.03Normal<0.10[facility] on above:Order Comment: Specimen Type: BLOOD SPECIMENOrdering Facility: [facility] Address:[address] [place], [place] [address]Performed By: #### 33846-4 ####[facility] LABIA [id number] [place], [place] [address]Qgvatwjrfxo (Bld) [#/Vol]1.53 10*3/uLNormal1.00-4.00[facility] on above: Order Comment: Specimen Type: BLOOD SPECIMENOrdering Facility: [facility] Address:[address] [place], [place] [address]Performed By: #### 13946-2 ####[facility] LABIA [id number] [place], [place] [address]Fzduphkukyd/100 WBC (Bld)31.2 %NormalThe [facility] Hospital on above:Order Comment: Specimen Type: BLOOD SPECIMENOrdering Facility: [facility] Address:[address] [place], [place] [address]Performed By: #### 74503-3 ####[facility] LABCLIA [id number] [place], [place] [address]JCP (RBC) [Entitic mass]27.1 psMgvbyv70.0-34.0[facility] on above:Order Comment: Specimen Type: BLOOD SPECIMENOrdering Facility: [facility] Address:[address] [place], [place] [address]Performed By: #### 88654-1 ####[facility] LABCLIA [id number] [place], [place] [address]NMVZ (RBC) [Mass/Vol]32.0 g/rPKhwpxa01.5-36.0[facility] on above:Order Comment: Specimen Type: BLOOD SPECIMENOrdering Facility: [facility] Address:[address] [place], [place] [address]Performed By: #### 48180-9 ####[facility] LABCLIA [id number] [place], [place] [address]JFZ (RBC) [Entitic vol]84.7 eVLcwlso46.0-100.0[facility] on above: Order Comment: Specimen Type: BLOOD SPECIMENOrdering Facility: [facility] Address:[address] [place], [place] [address]Performed By: #### 29924-8 ####[facility] LABIA [id number] [place], [place] [address]Ocfjdnbga (Bld) [#/Vol]0.49 10*3/uLNormal<0.87[facility] on above:Order Comment: Specimen Type: BLOOD SPECIMENOrdering Facility: [facility] Address:[address] [place], [place] [address]Performed By: #### 75943-1 ####[facility] LABIA [id number] [place] [address] Monocytes/100 WBC (Bld)10.0 %NormalThe [facility] Hospital on above: Order Comment: Specimen Type: BLOOD SPECIMENOrdering Facility: [facility] Address:[address] [place], [place] [address]Performed By: #### 18974-1 ####[facility] LABCLIA [id number] [place], [place] [address]Tfknvcjohew (Bld) [#/Vol]2.70 10*3/uLNormal1.45-7.50 [facility] on above:Order Comment: Specimen Type: BLOOD SPECIMENOrdering Facility: [facility] Address:[address] [place], [place] [address]Performed By: #### 70828-5 ####[facility] LABIA [id number] [place] [address] Neutrophils/100 WBC (Bld)54.9 %NormalThe [facility] Hospital on above: Order Comment: Specimen Type: BLOOD SPECIMENOrdering Facility: [facility] Address:[address] [place], [place] [address]Performed By: #### 06278-3 ####[facility] LABIA [id number] [place], [place] [address]Fyoprwaph RBC (Bld) [#/Vol]10*3/uLNormal<0.01[facility] on above:Order Comment: Specimen Type: BLOOD SPECIMENOrdering Facility: [facility] Address:[address] [place], [place] [address]Performed By: #### 49735-5 ####[facility] LABIA [id number] [place], [place] [address]Kxekewuww RBC/100 WBC (Bld) [Ratio]0.0 /100 WBCNormalCBlanchard Valley Health System on above:Order Comment: Specimen Type: BLOOD SPECIMENOrdering Facility: [facility] Address:[address] [place], [place] [address]Performed By: #### 65543-4 ####[facility] LABIA [id number] [place], [place] [address]Sblwhgll mean volume (Bld) [Entitic vol]9.5 fL Normal9.0-12.7CBlanchard Valley Health System on above:Order Comment: Specimen Type: BLOOD SPECIMENOrdering Facility: [facility] Address:[address] [place], [place] [address]Performed By: #### 67521-1 ####[facility] LABCLIA [id number] [place] [address] Platelets (Bld) [#/Vol]286 10*3/xZCwabrk569-037BnmzyxheqThe [facility] Hospital on above:Order Comment: Specimen Type: BLOOD SPECIMENOrdering Facility: [facility] Address:[address] [place] [address] Performed By: #### 67743-8 ####[facility] LABCLIA [id number] [place], [place] [address]GEO (Bld) [#/Vol]4.58 10*6/uL Normal3.90-5.20[facility] on above:Order Comment: Specimen Type: BLOOD SPECIMENOrdering Facility: [facility] Address:[address] [place], [place] [address]Performed By: #### 06181-0 ####[facility] LABCLIA [id number] [place], [place] [address]GJM (Bld) [#/Vol]4.91 10*3/uLNormal3.70-11.00[facility] on above:Order Comment: Specimen Type: BLOOD SPECIMENOrdering Facility: [facility] Address:[address] [place] [address]Rdlqtvqbm By: #### 09046-2 ####[facility] LABCLIA [id number] [place], [place] [address]OFSCGQzu 44-69-7893XXLEVMKiowe (SP) Office ([place]) NEEL GARCIA ([id number]) 1980 F Date Time Provider Department 06/26/21 [...] provide more details. She was born in [place] and has lived in [place] in the past. She reports occasional smoking - cigars that are dipped in cognac - last use a month back. Occasional alcohol use. No other substance abuse reported. She lives with her with 5 children. She is not working now but used to work at [employer] (was laid off during ). MEDICATIONS AND [...] which included preparing to see the patient, rprk-wo-bxou patient care, completing clinical documentation, obtaining and/or reviewing separately obtained history, performing a medically appropriate examination, counseling and educating the patient/family/caregiver, ordering medications, tests, or procedures, independently interpreting results (not separately reported) and communicating results to the patient/family/caregiver. CC (more content not included)...NormalOur Lady Of Mercy HospitalCOVID-19 [facility]on 43-13-3533IRSM-CoV-2 (COVID-19) RNA JULEE+probe Ql (Unsp spec)NegativeNormal NegativePromedica Flower HospitalComment on above:Order Comment: Healthcare Worker?: NResult Comment: Testing for SARS-CoV-2 by RT-PCR This test was developed and its performance characteristics determined by [employer] and validated at the [facility]. This test has not been FDA [...] is terminated or revoked sooner. PERFORMED BY: [facility] [address] [facility]. [place] [id number] PATHOLOGIST RETAIL ADMINISTRATIVE ASSISTANT EDIN MONTERROSO M.D.Performed By: #### COVID 19 [facility] #### [facility] [address] [place] [address] USACOVID-19 Positive/NegativeOrdered By: Bryan Quiros on 40-39-3157PXKB-CoV-2 (COVID-19) N gene JULEE+probe Ql (Resp)NegativeNegative [facility] Flower HospitalComment on above:Testing for SARS-CoV-2 by RT-PCR This test was developed and its performance characteristics determined by [employer] and validated at the [facility]. This test has not been FDA [...] of time the declaration that circumstances exist ju stifying the authorization of the emergency use of in vitro diagnostic tests for detection of SARS-CoV-2 virus and/or diagnosis of COVID-19 infection under section 564(b)(1) of the Act, 21 U.S.C. 360bbb-3(b)(1), unless the authorization is terminated or revoked sooner.FERRITIN BLDon 05-44-2659Yfoqtvoi [Mass/Vol] 34.6 ng/yBZljejq55.7-205.1CWadsworth-Rittman HospitalComment on above:Order Comment: Specimen Type: BLOOD SPECIMENOrdering Facility: [facility] Address:[address] [place] [address]Tjvqmgnuj By: #### IRON, FERR ####[facility] LABCLIA [id number] [facility] [place] [address] [place] AMERICAIRON + TIBCon 66-59-5230Fzrt [Mass/Vol]60 ug/fCCkqnat22-327WcbfyykdtOur Lady Of Mercy HospitalComment on above:Order Comment: Specimen Type: BLOOD SPECIMENOrdering Facility: [facility] Address:[address] [place] [address] Performed By: #### IRON, FERR ####[facility] LABCLIA [id number] [address] OF [facility] Iron binding capacity [Mass/Vol]398 ug/mVHmfh228-961CmsnpdpksOur Lady Of Mercy Hospital Comment on above:Order Comment: Specimen Type: BLOOD SPECIMENOrdering Facility: [facility] Address:[address] [place] [address] Performed By: #### IRON, FERR ####[facility] LABCLIA [id number] [address] OF [place] M Iron/TIBC [Molar ratio]15 %Ywinll56-57XqtpimnleThe Christ Hospital on above:Order Comment: Specimen Type: BLOOD SPECIMENOrdering Facility: [facility] Address:[address] [place], [place] [address]Performed By: #### IRON, FERR ####[facility] LABIA [id number] [address] OF [facility] MEDICAL CENTERCNPNon [id number] Telephone ([place]) NEEL GARCIA ([id number]) 1980 F Date Time Provider Department 06/20/21 [...] [D50.9] Order(s):CBC + DIFF [SQCBCDIF] Order #: [id number] FUTURE Prescriptions as of 06/22/2021 - ferrous [...] (None) Encounter Status:Closed by LAURIE RUSSELL on 06/22/21NoAv[facility] Hospitalisha [id number] ([place]) NEEL GARCIA ([id number]) 1980 F Date Time Provider Department 05/30/21 [...] once a day (prescription sent to [facility] pharmacy in [place], [place]) and follow-up in 1 month with repeat labs. She will also need a referral to see a electronic systems security assessment for scopes. MD Alina Thomas Sec 05/30/2021 12:48 PM Addendum sloane please send records to [facility] I will print facesheet for you Alina Mendozakins Sec 05/30/2021 12:50 PM Signed Patient is already scheduled for month appt Amelie Garces [facility] 05/30/2021 1:22 PM Signed Records faxed to Dr. Quiros. Miriam Raymond [facility] 06/05/2021 11:18 AM Signed Called [facility] and spoke with Karolina. She states they have received patient records and their office will be calling patient soon to schedule. [facility]iam [facility] 06/07/2021 3:01 PM Signed Called [facility] spoke with Christiane. She states their clinical education coordinator will be calling patient to schedule. Miriam [facility] 06/19/2021 10:42 AM Signed Called [facility] spoke with Karolina. She states they have tried to call patient left several messages and are waiting for patient to call their office back. Miriam [facility] 06/28/2021 1:07 PM Signed Spoke with Christiane from [facility] office. She states patient was scheduled today 06/28 for Colonoscopy and EGD, but they received voicemail from patient she wanted to cancel due to she was not feeling well. [facility] 08/14/2021 2:43 PM Signed [...] [D50.9] Order(s):CONSULT TO GASTROENTEROLOGY [9010] Order #: [id number]: 1 FUTURE [] ferrous sulfate 325 mg (65 mg iron) tabletTake 1 tablet by mouth daily with breakfast.Disp: 30 tabletRfl: 2 IRON + TIBC [SQIRON] Order #: [id number] FUTURE FERRITIN BLD [SQFERR] Order #: [id number] FUTURE Prescriptions as of 08/14/2021 - SUMAtriptan [...] breakfast. Encounter Status:Closed by NEHEMIAS WARD on 05/30/21NormalCParma Community General [facility] 57-75-3469bYIX Coag (Bld) [Time]27.8 pZqwuin59.0-32.4CBlanchard Valley Health System on above:Result Comment: Unfractionated Heparin Therapeutic Ranges: Standard Heparin Nomogram: 53 to 78 seconds (anti-Xa level of 0.3 to 0.7 U/ml) Low Dose/ACS Nomogram: 49 to 67 seconds (anti-Xa level of 0.2 to 0.5 U/ml) Stroke Treatment Nomogram: 49 to 67 seconds (anti-Xa level of 0.2 to 0.5 U/ml) Note: The APTT therapeutic range has been determined for the current lot of laboratory APTT reagentin use throughout the [facility]. Performed By: #### PTT, WSR, TT, FERR, FIBCT, PT, HAPTO, CRP, IRON ####[facility] [place], [place] [phone]-Nsgrtlvu Proteinon 64-05-0135K-Reactive Protein0.5 mg/dLNormal<0.9CBlanchard Valley Health System on above:Performed By: #### PTT, WSR, TT, FERR, FIBCT, PT, HAPTO, CRP, IRON ####[place] [address] [place], [place] [phone] 91-35-7067HJGDRUFqmrw () Office ([place]) NEEL GARCIA ([id number]) 1980 F Date Time Provider Department 05/29/21 [...] provide more details. She was born in [place] and has lived in [place] in the past. She reports occasional smoking - cigars that are dipped in cognac - last use a month back. Occasional alcohol use. No other substance abuse reported. She lives with her with 5 children. She is not working now but used to work at [employer] (was laid off during -). MEDICATIONS AND [...] which included preparing to see the patient, ugvn-lq-vlcz patient care, completing clinical documentation, obtaining and/or reviewing separately obtained history, performing a medically appropriate examination, counseling and educating the patient/family/caregiver, ordering medications, tests, or procedures, independently interpreting results (not separately reported) and communicating results to the patient/family/caregiver. CC: Blade Crews Sr. Referring Provider: BLADE CREWS SR [[id number]] Allergies As of Date: 05/29/2021 (No Known Allergies) Date Reviewed: 05/29/2021 Reviewed by: Laurie Russell - Fully Assessed Reason for Visit: New Patient [172] Cmt: easy bruising Primary Visit Diagnosis:Anemia, unspecified type [D64.9] Other Visit Diagnosis:Easy bruisability [R23.8] Order(s):CBC + DIFF (FOR REMOTE [facility] USE) [SQRCBCDF] Order #: [id number] FUTURE COMP METABOLIC PANEL [SQCMP] Order #: [id number] FUTURE SED RATE WESTERGREN [SQWSR] Order #: [id number] FUTURE C-REACTIVE PROTEIN (CRP) [SQCRP] Order #: [id number] FUTURE IRON + TIBC [SQIRON] Order #: [id number] FUTU (more content not included)... NormalOhio [facility] Metabolic Panelon 73-89-1474Ppooiko [Mass/Vol]4.6 g/dLNormal3.9-4.9CBlanchard Valley Health System on above: Performed By: #### PTT, WSR, TT, FERR, FIBCT, PT, HAPTO, CRP, IRON ####[facility] Fusmunrjphar[address] Stone[address] AveCRenwick, [place] [phone] [Catalytic activity/Vol]83 U/EVgmvpn97-579BhwprkrwqThe [facility] on above:Performed By: #### PTT, WSR, TT, FERR, FIBCT, PT, HAPTO, CRP, IRON ####[facility] Bkuvnfzuorfa79[address] Stonewall AveCRenwick, [place] [phone] [Catalytic activity/Vol]21 U/LNormal7-38[facility] on above:Performed By: #### PTT, WSR, TT, FERR, FIBCT, PT, HAPTO, CRP, IRON ####[facility] AveCRenwick, [place] [phone] gap [Moles/Vol]11 mmol/LNormal9-18[facility] on above:Performed By: #### PTT, WSR, TT, FERR, FIBCT, PT, HAPTO, CRP, IRON ####[place] [address] [address] AvJennifer [place] [phone] [Catalytic activity/Vol]19 U/VPgpqma71-46FgextlzcfThe Christ Hospital on above:Performed By: #### PTT, WSR, TT, FERR, FIBCT, PT, HAPTO, CRP, IRON ####[address] AvJennifer Ville [phone] [Mass/Vol]0.6 mg/dLNormal0.2-1.3CBlanchard Valley Health System on above:Performed By: #### PTT, WSR, TT, FERR, FIBCT, PT, HAPTO, CRP, IRON ####[place] [phone] [Mass/Vol]9.2 mg/dLNormal8.5-10.2CBlanchard Valley Health System on above:Performed By: #### PTT, WSR, TT, FERR, FIBCT, PT, HAPTO, CRP, IRON ####[address] [phone] [Moles/Vol]107 mmol/WBsjo26-348FjhytqfbvThe Christ Hospital on above:Performed By: #### PTT, WSR, TT, FERR, FIBCT, PT, HAPTO, CRP, IRON ####[place] [address] [address] AvPlanters[place], [place] [phone] [Moles/Vol]23 mmol/UFfwckx74-98IfutrheimSheltering Arms Hospital on above:Performed By: #### PTT, WSR, TT, FERR, FIBCT, PT, HAPTO, CRP, IRON ####[address] AvJennifer Ville [phone] [Mass/Vol]1.00 mg/dLHigh0.58-0.96[facility] on above:Performed By: #### PTT, WSR, TT, FERR, FIBCT, PT, HAPTO, CRP, IRON ####[facility] Fsawuzrqubpy74[address] Stonewall AveCRenwick, [place] [phone]-Qhremxv Amer.>60NormalClevelAdena Pike Medical Center on above:Performed By: #### PTT, WSR, TT, FERR, FIBCT, PT, HAPTO, CRP, IRON ####[facility] AveCRenwick, [place] [phone]-Dgg Other Races>60NormalCBlanchard Valley Health System on above:Result Comment: eGFR (Estimated GFR) Units of measure: [...] visit the National Kidney Foundation website at kidney.org/professiona ls/kdoqi/gfr_calculator.Performed By: #### PTT, WSR, TT, FERR, FIBCT, PT, HAPTO, CRP, IRON ####[facility] AveCRenwick, [place] [phone] [Mass/Vol]85 mg/jMYswdgv56-64DjtmdmcfxOur Lady Of Mercy Hospital Comment on above:Result Comment: The [place] Diabetes Association (ADA) provides guidance for cutoff [...] Standards of Medical Care in Diabetes 2016, [place] [employer] Association. Diabetes Care. 2016.39(Suppl 1).Performed By: #### PTT, WSR, TT, FERR, FIBCT, PT, HAPTO, CRP, IRON ####[address] [phone] [Moles/Vol]3.3 mmol/LLow3.7-5.1 [facility] on above:Performed By: #### PTT, WSR, TT, FERR, FIBCT, PT, HAPTO, CRP, IRON ####[address] [phone] [Mass/Vol]7.6 g/dLNormal6.3-8.0 [facility] on above:Performed By: #### PTT, WSR, TT, FERR, FIBCT, PT, HAPTO, CRP, IRON ####[address] [phone] [Moles/Vol]141 mmol/ZDuphdj793-148 [facility] on above:Performed By: #### PTT, WSR, TT, FERR, FIBCT, PT, HAPTO, CRP, IRON ####[address] [phone] nitrogen [Mass/Vol]12 mg/dLNormal7-21 [facility] on above:Performed By: #### PTT, WSR, TT, FERR, FIBCT, PT, HAPTO, CRP, IRON ####[address]and, [place] [phone] 54-10-6508Ngugllwu [Mass/Vol]14.6 ng/mLLow14.7-205.1CBlanchard Valley Health System on above:Performed By: #### PTT, WSR, TT, FERR, FIBCT, PT, HAPTO, CRP, IRON ####[address] [phone] 89-58-6897Cliwvtekrd197 mg/wHFgefhu767-458DknqrpbpsThe Christ Hospital on above:Performed By: #### PTT, WSR, TT, FERR, FIBCT, PT, HAPTO, CRP, IRON ####[address] [phone] 31-32-2284Zmycwsfjhiy454 mg/lAZbmape04-875 [facility] on above:Performed By: #### PTT, WSR, TT, FERR, FIBCT, PT, HAPTO, CRP, IRON ####[address] [phone] and TIBCon 96-75-7469Coty [Mass/Vol]53 ug/gUAkndya94-039HzmlelpfsThe Christ Hospital on above:Performed By: #### PTT, WSR, TT, FERR, FIBCT, PT, HAPTO, CRP, IRON ####[address] [phone] ug/dLHigh 232-386[facility] on above:Performed By: #### PTT, WSR, TT, FERR, FIBCT, PT, HAPTO, CRP, IRON ####[address] [phone] Fciyenvl45 %Xae30-77 [facility] on above:Performed By: #### PTT, WSR, TT, FERR, FIBCT, PT, HAPTO, CRP, IRON ####[place] [address] [address] AvPlantersville, [place] [phone] Func Scrnon 01-97-3254IUX/ADP CartridgeAccount CreditedNormal<118[facility] on above: Result Comment: Test Not Done Notified Dr. Ward at 0940 on 05.30.21 ABPerformed By: #### PLTSCP ####[address] AvJennifer Ville [phone]/EPI CartridgeAccount CreditedNormal<194[facility] on above: Result Comment: Test Not Done Notified Dr. Ward at 0940 on 05.30.21 ABPerformed By: #### PLTSCP ####[address] [phone] Func Scr InterpAccount CreditedNormalCBlanchard Valley Health System on above:Performed By: #### PLTSCP ####[address] [phone] 78-78-8957MB INR1.2Fijfex8.9-1.3CBlanchard Valley Health System on above:Result Comment: Vitamin K Antagonist (VKA) Therapeutic Range: INR 2 to 3 (Target INR of 2.5) Note: For patients treated with VKA drugs, such as warfarin, the [place] [employer] 2012 Guideline recommends [...] 2012, 141:7S-47S Srinivasa RA, et al. [facility] 2017, 70: 252-289Performed By: #### PTT, WSR, TT, FERR, FIBCT, PT, HAPTO, CRP, IRON ####[facility] Belnnbziwwty[address] Stonewall AveCRenwick, [place] [phone] Sec10.9 secNormal9.7-13.0[facility] HospitalComment on above:Performed By: #### PTT, WSR, TT, FERR, FIBCT, PT, HAPTO, CRP, IRON ####[facility] Kcbfunslzvox15[address] Stonewall AveCRenwick, [place] [phone] CBCDIF (for [facility] use only)on 15-46-1831Tri Baso0.04 k/uL Normal<0.11CWadsworth-Rittman HospitalAbs Mono0.49 k/uLNormal<0.87[facility] Mercy HospitalAbs Neut1.66 k/uLNormal1.45-7.50[facility] Absolute nRBC<0.01Normal<0.01[facility] HospitalBasophils/100 WBC (Bld) 1.0 %NormalOur Lady Of Mercy HospitalDTYPEAuto DiffNormalCWadsworth-Rittman HospitalEosinophils (Bld) [#/Vol]0.19 10*3/uLNormal<0.46[facility] HospitalEosinophils/100 WBC (Bld)4.9 %NormalOur Lady Of Mercy Hospital Erythrocyte distribution width (RBC) [Ratio]14.6 %Uorxeg14.5-15.0[facility] HospitalHematocrit (Bld) [Volume fraction]36.0 %Otsrgi17.0-46.0[facility] HospitalHemoglobin (Bld) [Mass/Vol]11.5 g/hIYeezmb99.5-15.5CWadsworth-Rittman HospitalLymphocytes (Bld) [#/Vol]1.50 10*3/uLNormal1.00-4.00[facility] HospitalLymphocytes/100 WBC (Bld)38.6 %NormalOur Lady Of Mercy Hospital MCH26.5 lDUirmdv33.0-34.0[facility] GeneralHC (RBC) [Mass/Vol]31.9 g/wXVqwanw15.5-36.0[facility] GeneralV (RBC) [Entitic vol]82.9 fL Amonfx93.0-100.0[facility] HospitalMonocytes/100 WBC (Bld)12.6 %Normal [facility] HospitalNeutrophils/100 WBC (Bld)42.9 %NormalOur Lady Of Mercy HospitalNRBCs0.0 /100 TEIGbiwvi1IbeshvapsOur Lady Of Mercy HospitalPlatelet mean volume (Bld) [Entitic vol]9.2 fLNormal9.0-12.7CWadsworth-Rittman HospitalPlatelets (Bld) [#/Vol]300 10*3/rDBctxyi422-395WbnowraqsOur Lady Of Mercy HospitalRBC (Bld) [#/Vol]4.34 10*6/uLNormal3.90-5.20[facility] HospitalWBC (Bld) [#/Vol]3.89 10*3/uL Normal3.70-11.00[facility] HospitalReticulocyteon 03-84-6908Qgq Retic 0.047 M/uLNormal0.0180-0.1000[facility] on above: Performed By: #### PTT, WSR, TT, FERR, FIBCT, PT, HAPTO, CRP, IRON ####[facility] StonewallVentura, [place] [phone]%1.1 % Normal0.4-2.0[facility] on above:Performed By: #### PTT, WSR, TT, FERR, FIBCT, PT, HAPTO, CRP, IRON ####[place] [address] [place], [place] [phone] Rate Westergrenon 59-33-8936Crb Rate Ueflmmdstr15 mm/hrHigh0-20[facility] on above: Performed By: #### PTT, WSR, TT, FERR, FIBCT, PT, HAPTO, CRP, IRON ####[facility] Awdyodtydqcf9329 Stonewall AveCRenwick, [place] [phone] Timeon 23-58-7449Ykdetsrp Time17.3 secNormal<18.6CWadsworth-Rittman Hospital Comment on above:Performed By: #### PTT, WSR, TT, FERR, FIBCT, PT, HAPTO, CRP, IRON ####[facility] Yvvjgggqemzt7[address] AvPlantersville, [place] [phone] BRAIN W WO CONTRASTon 79-04-6004BKR BRAIN W WO CONTRAST EXAMINATION: MRI OF THE BRAIN WITHOUT AND WITH CONTRAST 10/22/2019 2:33 pm TECHNIQUE: Multiplanar multisequence MRI of the head/brain was performed without and with the administration of intravenous contrast. COMPARISON: None. HISTORY: ORDERING SYSTEM PROVIDED HISTORY: Intractable epilepsy without status epilepticus, unspecified epilepsy type (HCC) TECHNOLOGIST PROVIDED HISTORY: Is the patient ?->No FINDINGS: INTRACRANIAL STRUCTURES/VENTRICLES: There are no areas of restricted diffusion [...] collection present. The proximal portions of the [place] of [place] demonstrate normal flow voids. ORBITS: Limited evaluation of the orbits is unremarkable. SINUSES: The paranasal sinuses and mastoid air cells are clear. BONES/SOFT TISSUES: Bone marrow signal intensity is normal. IMPRESSION: Normal MRI of the brain without findings to explain the patient's seizures. Interpreted by: Erasmo Humphries MD Signed by: Erasmo Humphries MD 10/22/19 Final resultNormalMerBrotman Medical CenterNormal MRI of the brain without findings to explain the patient's seizures.[facility], [place] EXAMINATION: MRI OF THE BRAIN WITHOUT AND WITH CONTRAST 10/22/2019 2:33 pm TECHNIQUE: Multiplanar multisequence MRI of the head/brain was performed without and with the administration of intravenous contrast. COMPARISON: None. HISTORY: ORDERING SYSTEM PROVIDED HISTORY: Intractable epilepsy without status epilepticus, unspecified epilepsy type (HCC) TECHNOLOGIST PROVIDED HISTORY: Is the patient ?->No FINDINGS: INTRACRANIAL STRUCTURES/VENTRICLES: There are no areas of restricted diffusion [...] collection present. The proximal portions of the [place] of [place] demonstrate normal flow voids. ORBITS: Limited evaluation of the orbits is unremarkable. SINUSES: The paranasal sinuses and mastoid air cells are clear. BONES/SOFT TISSUES: Bone marrow signal intensity is normal.[facility] Avon HospitalPk Mhpn Incoming Radiant Results From [employer] - 10/22/2019 4:01 PM EDT EXAMINATION: MRI OF THE BRAIN WITHOUT AND WITH CONTRAST 10/22/2019 2:33 pm TECHNIQUE: Multiplanar multisequence MRI of the head/brain was performed without and with the administration of intravenous contrast. COMPARISON: None. HISTORY: ORDERING SYSTEM PROVIDED HISTORY: Intractable epilepsy without status epilepticus, unspecified epilepsy type ([facility]) TECHNOLOGIST PROVIDED HISTORY: Is the patient ?->No FINDINGS: INTRACRANIAL STRUCTURES/VENTRICLES: There are no areas of restricted diffusion [...] collection present. The proximal portions of the [place] of [place] demonstrate normal flow voids. ORBITS: Limited evaluation of the orbits is unremarkable. SINUSES: The paranasal sinuses and mastoid air cells are clear. BONES/SOFT TISSUES: Bone marrow signal intensity is normal. IMPRESSION: Normal MRI of the brain without findings to explain the patient's seizures. [employer] [facility], [place] Vital Signs Date TimeVital SignValuePerforming OarxywkyoHxfiqajx69-98-4599 10:33-0400Blood Pressure LocationJENNIFER FRED [facility]07-11-2023 10:33-0400Diastolic blood seuythny76 mm[Hg]AMELIE ESPARZA [facility]07-11-2023 10:33-0400Heart rate61 /minJENNIFER FRED [facility]07-11-2023 10:33-0400Respiratory rate16 /minJENNIFER FRED [facility]07-11-2023 10:33-0400Systolic blood ysfdohaa252 mm[Hg]AMELIE ESPARZA [facility]06-09-2022 13:53-0400Body .6 cmSchantel Ward MD Work Phone: [facility]06-09-2022 13:53-0400Body temperature 97.59 [degF]Nehemias Ward MD Work Phone: [facility]06-09-2022 13:53-0400Body .55 kgNehemias Ward MD Work Phone: [facility]06-09-2022 13:53-0400Diastolic blood nadvgeqt17 mm[Hg]Nehemias Ward MD Work Phone: [facility]06-09-2022 13:53-0400Heart rate65 /min Nehemias Ward MD Work Phone: [facility]06-09-2022 13:53-0400Respiratory rate 16 /minSchantel Ward MD Work Phone: [facility]06-09-2022 13:53-4074WxH7% (BldA) [Mass fraction]100 %Nehemias Ward MD Work Phone: [facility]06-09-2022 13:53-0400Systolic blood mm[Hg]Nehemias Ward MD Work Phone: [facility]06-01-2022 08:45-0400Diastolic blood mm[Hg]DO [facility] [place] Work Phone: [phone]06-01-2022 08:45-0400 Heart rate68 /Carl [facility] [place] Work Phone: [phone]06-01-2022 08:45-0400 Respiratory rate18 /Carl [facility] Work Phone: [phone])[address]06-01-2022 08:45-0400 SaO2% (BldA) [Mass fraction]98 %DO [facility] [place] Work Phone: [phone]06-01-2022 08:45-0400 Systolic blood qyalijjd626 mm[Hg]DO [facility] [place] Work Phone: [phone]06-01-2022 06:49-0400 Body pevfqa708.18 cmDO [facility] Work Phone: [phone])[address]06-01-2022 06:49-0400 Body mass index (BMI) [Ratio]28.6 kg/m2DO [facility] Work Phone: [phone]06-01-2022 06:49-0400 Body vmmytkegjbe66.5 [degF]DO [facility] [place] Work Phone: [phone] [place], [place] 7100306-01-2022 06:49-0400 Body kgDO [facility] Work Phone: [phone] [place], [place] 7100304-25-2022 13:40-0400 Body .6 cmSchantel Ward MD Work Phone: [facility]04-25-2022 13:40-0400Body temperature 97.11 [degF]Nehemias Ward MD Work Phone: [facility]04-25-2022 13:40-0400Body eztave85.72 kgNehemias Ward MD Work Phone: [facility]04-25-2022 13:40-0400Diastolic blood mgmlifud82 mm[Hg]Nehemias Ward MD Work Phone: [facility]04-25-2022 13:40-0400Heart rate65 /min Nehemias Ward MD Work Phone: [facility]04-25-2022 13:40-0400Respiratory rate 16 /minSchantel Ward MD Work Phone: [facility]04-25-2022 13:40-3447CoF7% (BldA) [Mass fraction]92 %Nehemias Ward MD Work Phone: [facility]04-25-2022 13:40-0400Systolic blood mm[Hg]Nehemias Ward MD Work Phone: [facility]03-08-2022 13:43-0500Body vbgugu579.18 cmDO [facility] [place] Work Phone: [phone]03-08-2022 13:43-0500 Body mass index (BMI) [Ratio]31 kg/m2DO [facility] Work Phone: [phone] [place], [place] 7100303-08-2022 13:43-0500 Body eppntq34.81 kgDO [facility] Work Phone: [phone] [place] [address] Encounters Encounter DateEncounter TypeCare ProviderFacilityStart: 20-24-1920pzmyiadkaf CHARLES P HOUSEFacility:[facility] HospitalStart: 02-02-2025 End: 72-23-7910ntskqjeqfgRCCWGRK P HOUSEFacility:[facility] ClinicStart: 01-29-2025 End: 00-69-9394muikcscwanYWIWFEI P HOUSEFacility:[facility] HospitalStart: 01-14-2025 End: 73-20-6973Bweqmiwfa encounterLissa Erazo CMAProMedica Administration Comment on above:Establish CareStart: 01-05-2025 End: 05-74-1992prpzepznlgXRNOUAQ P HOUSEFacility:[facility] ClinicStart: 09-29-2024 ambulatoryCHARLES P HOUSEFacility:[facility] ClinicStart: 99-33-8968zgwteykfbr BLADE P HOUSEFacility:[facility] ClinicStart: 88-24-7487kxxxqaunftAE BLADE P HOUSEFacility:[facility] [place] HospitalStart: 47-62-9870ovpjvxlxktOT BLADE P HOUSE Facility:[facility] ClinicStart: 05-31-2024 End: 18-88-5849Iahxppllw department patient visitCHARLES P [facility] CenterMed[facility] HospitalStart: 56-64-1648cvkhtzwmywRM CHARLES P HOUSEFacility:[facility] ClinicStart: 00-66-9593sjzulayyovXP CHARLES P HOUSEFacility:[facility] ClinicStart: 02-14-2024 End: 28-20-0345Dioqvzngl department patient visitCHARLES P HOUSEProMedica Mercedes HospitalStart: 12-10-2023 End: 18-32-7576gpordillsnLVVMLX FILLMORENot AvailableStart: 12-04-2023 End: 01-45-6496kvylpedxkxOWABSQ FILLMORENot AvailableStart: 11-05-2023 End: 48-23-9835lqbaygrufvEDIGAIYTSGX HASSETTNot AvailableStart: 11-04-2023 End: 04-07-0090cyiuzsrqxpNPATZH FILLMORENot AvailableStart: 10-22-2023 End: 88-00-3343qjmfewgxlkSSEQ D BEJNot AvailableStart: 10-22-2023 End: 60-75-8412crdbnkxtvqEOBK D BEJNot AvailableStart: 10-21-2023 End: 40-46-3901kllaycxmoyXFZMBE FILLMORENot AvailableStart: 10-18-2023 End: 71-99-7407Gusnazqao department patient visitBRET E LINDSTROMProMedica Mercedes HospitalStart: 10-15-2023 End: 45-47-9744wzfwtqwxrcWIOLEQ FILLMORENot AvailableStart: 08-27-2023 End: 50-96-4595vggnxqualzHILZOYZPDHI HALASYNot AvailableStart: 01-08-2023 End: 95-86-8132xjuhwdlsarOHLOHNUI E PERRYFacility:EU Bainbridgetart: 01-08-2023 End: 29-43-7717Lvtmzrg encounter procedureJENNIFER E FRED [facility] start: 11-13-2022 End: 36-62-0792ywsyuseubrVdctnml R WATERSFacility:CD:[id number]: 10-30-2022 End: 61-23-0484mpgkfoxyggYYDXVDDL E PERRYFacility:KAYLAH Bainbridgetart: 10-30-2022 End: 23-02-3951Qcnursw encounter procedureJENNIFER E FRED [facility] start: 05-30-2022 End: 16-16-5970zrjdwfdednEQ INGRID ESQUEDAKFacility:J0Tmvcj: 05-30-2022 End: 10-85-2995witliuwpugEH INGRID KARASIKFacility:B9Qctty: 05-27-2022 End: 09-26-8763cpluliexksBT BLADE HOUSEFacility:I4Rgltb: 05-10-2022 End: 64-99-1512degialmgbuOK BLADE HOUSEFacility:M6Xpptw: 02-26-2022 End: 57-57-4475qijhmtmmmmLF BLADE HOUSEFacility:I2Yfrow: 51-60-0808Arximmmdl for preprocedural laboratory examinationDR [facility] Start: 02-25-2022 End: 51-91-2563gaqqzphcksAX BLADE HOUSEFacility:J6Mdkcq: 78-52-3506Wjxveethp for preprocedural laboratory examinationDR [facility] Start: 02-15-2022 End: 77-50-7277wpvngowcorCfysrzw R WATERSFacility:CD:[id number]: 02-15-2022 End: 79-75-9145Jpyedjnpkx and management of inpatientDR INGRID DE [place] Facility:W0Slmde: 02-12-2022 End: 00-03-9917setossxrwfGK INGRID DE [place] SANTOSFacility:Z3Quxpx: 02-12-2022 End: 41-31-5629Fmlidesid for preprocedural laboratory examinationDR INGRID DE LOS SANTOSFacility:X1Imjnw: 38-29-9903wemwkzxvahGRWDAJAB PERRYFacility:[place] Start: 39-26-5021Xzppxcmhi for other preprocedural examinationDR INGRID [place] [facility] [place] [facility]Start: 01-29-2022 End: 06-36-1518eetdejxubnQP INGRID DE [place] SANTOSFacility:U7Kcpgq: 01-29-2022 End: 51-14-2985Mbojgtuhn for other preprocedural examinationDR INGRID DE [place] Facility:E1Pvuec: 01-05-2022 End: 15-26-1177ehpvsjupteVQ INGRID DE LOS SANTOSFacility:A5Nvwyu: 01-02-2022 End: 64-05-8454tzvmrdwdzhYU INGRID DE LOS SANTOSFacility:P6Ggtya: 12-29-2021 End: 30-70-6700rrxmzcknpuNP INGRID DE LOS SANTOSFacility:O7Mtxul: 12-20-2021 End: 11-03-0363miinechbqvME INGRID DE LOS SANTOSFacility:C0Ztvic: 12-12-2021 End: 48-64-7329zuxqzwhuwjOV INGRID DE LOS SANTOSFacility:N4Nlrgd: 82-95-0812Hgqderchd encounterErica De La Cruz RNHematology/OncologyComment on above:ResultsStart: 29-52-7251Ntqjfprak encounterFinancial Navigator Obi Work Phone: Hematology/OncologyComment on above:Benefits InvestigationStart: 10-06-2021 End: 70-16-8270gqxxceztxlPrrdb [address] Work Phone: Hematology/OncologyComment on above:Iron deficiency anemia, unspecified iron deficiency anemia type (Primary Dx)Start: 09-29-2021 Telephone encounterSchantel Ward MD Work Phone: Hematology/OncologyComment on above:ResultsStart: 09-28-2021 End: 42-88-4587dauqlzufgaUgzyptlan Kunte MD Work Phone: Hematology/OncologyComment on above:Iron deficiency anemia, unspecified iron deficiency anemia type (Primary Dx); Easy bruisabilityStart: 09-28-2021 End: 28-26-9633Rudkwbk encounter procedureSchantel Ward MD Work Phone: SANDUSKYStart: 09-20-2021 End: 37-59-9965Twveiwlqp to same day surgery [facility] Work Phone: [facility] [place] [facility] CenterDigestive HealthStart: 09-15-2021 End: 73-38-3185Tuacapc encounter procedureDO [facility] Work Phone: [facility] Start: 08-14-2021 End: 16-47-2451qykojkdvfgHbpzvxjps Kunte MD Work Phone: Hematology/OncologyComment on above:Iron deficiency anemia, unspecified iron deficiency anemia type (Primary Dx)Start: 08-14-2021 End: 31-17-1995Nrfwugy encounter procedureSchantel Ward MD Work Phone: SANDUSKYStart: 06-28-2021 End: 72-39-1675Gilhirmw ReferredTrinity Health System [facility] Work Phone: [facility] [place] [facility] CenterDigestive HealthStart: 06-26-2021 End: 76-34-5632Bkzjlio encounter procedureDO [facility] Work Phone: [facility] Start: 69-11-6014Oowti abstractingSchantel Ward MD Work Phone: Hematology/OncologyStart: 10-22-2019 End: 51-12-3633Urojfra encounter procedureMARK D BEJMercy Chonc Pediatric Hospital CenterStart: 10-22-2019 End: 84-20-9861Dqctpfzedg hospital visit by physicianS[address] MRIComment on above:Intractable epilepsy without status epilepticus, unspecified epilepsy type (HCC) Procedures DateProcedureProcedure DetailPerforming ClinicianStart: 11-13-2022 Cystourethroscopy with dilation of urethral strictureJEIFER FRED Start: 45-40-4735Erxmifrya of Bilateral Fallopian Tubes, Open Approach LBADE HOUSEStart: 78-04-9877Tsfxoobce of Uterus, Open Approach [facility] SYSTEMtart: 13-77-8438Ylvxwwdye of Other Device into Genitourinary Tract, Via Natural or Artificial Opening EndoscopicDR BLADE HOUSEStart: 82-96-8329Ntngdohit hysterectomyJENNIFER FRED Start: 51-13-3185Kgvje count complete auto&auto difrntl wbcSiddsaurabh Ward MD Work Phone: Start: 41-98-9010Ckfhs depression screening assessment Nehemias Ward MD Work Phone: Start: 06-66-0545HuyrsusqcrirnmnozjuxbflnenFV [facility] Work Phone: Start: 12-18-3785Riund depression screening assessment Nehemias Ward MD Work Phone: Start: 67-54-4983Vwj brain brain stem w/o w/contrast materialMARK BEJStart: 06-19-6162Khz brain brain stem w/o w/contrast material Alex D Begisell Work Phone: Plan of Treatment DateCare ActivityDetailAuthorStart: 98-29-6628Xnadzyp ScreeningTobacco Screening [facility] SystemStart: 35-05-1799Nsxfx BMI ScreeningAdult BMI Screening [facility] SystemStart: 89-24-5001Xifmtvvtm vaccinationInfluenza Vaccine [facility] SystemStart: 91-58-4323Poznc depression screening assessment DEPRESSION SCREENINGCommunity Memorial Hospitalrt: 47-13-1918Ksiru depression screening assessmentDEPRESSION SCREENINGAccess Hospital Daytontart: 47-99-8431Kodfhemnj vaccinationAccess Hospital Daytontart: 09-28-2021 End: 24-24-4485BKP W Auto Differential panel - BloodCBC + DIFF Lab Routine Iron deficiency anemia, unspecified iron deficiency anemia type Expected: 09/28/2021, Expires: 11/28/2021[facility] Work Phone: Comment on above:Expected: 09/28/2021, Expires: 11/28/2021tart: 09-28-2021 End: 91-63-2739HXOSXCXK BLDFERRITIN BLD Lab Routine Iron deficiency anemia, unspecified iron deficiency anemia type Expected: 09/28/2021, Expires: [address] [place] [address] Work Phone: Comment on above:Expected: 09/28/2021, Expires: 11/28/2021tart: 09-28-2021 End: 51-59-8023AYEJ + TIBCIRON + TIBC Lab Routine Iron deficiency anemia, unspecified iron deficiency anemia type Expected: 09/28/2021, Expires: [address] [place] [address] Work Phone: Comment on above:Expected: 09/28/2021, Expires: 11/28/2021tart: 08-14-2021 End: 08-40-2186EQU W Auto Differential panel - BloodCBC + DIFF Lab Routine Iron deficiency anemia, unspecified iron deficiency anemia type Expected: 08/14/2021, Expires: [address] [place] [address] Work Phone: Comment on above:Expected: 08/14/2021, Expires: 10/14/2021tart: 08-14-2021 End: 25-43-5838BUYXJDAJ BLDFERRITIN BLD Lab Routine Iron deficiency anemia, unspecified iron deficiency anemia type Expected: 08/14/2021, Expires: 10/14/2021[facility] Work Phone: Comment on above:Expected: 08/14/2021, Expires: 10/14/2021tart: 08-14-2021 End: 46-46-0294LOUW + TIBCIRON + TIBC Lab Routine Iron deficiency anemia, unspecified iron deficiency anemia type Expected: 08/14/2021, [facility]: Comment on above:Expected: 08/14/2021, Expires: 10/14/2021tart: 08-14-2021 End: 69-00-3553XYYUA COUNTRETIC COUNT Lab Routine Iron deficiency anemia, unspecified iron deficiency anemia type Expected: 08/14/2021, Expires: 10/14/2021[facility] Work Phone: Comment on above:Expected: 08/14/2021, Expires: 10/14/2021tart: 48-87-0094BdgrmbqmxfxuzjfaqzninqybumXS EGD/Colonoscopy (Not Applicable)[facility]: 93-20-9361Diwnwigss vaccinationINFLUENZA (#1)[facility]: 38-12-4156Glpulsflk vaccination Flu vaccine (#1)[facility]: 65-81-9446Ancqu panelLipid screen [facility]: 94-35-0111UkibeejmnbhPWLDPAWGDXpiitiuia ClinicStart: 74-06-6364SLV TESTINGHPV TESTINGAccess [facility]: 33-44-9428RJD TESTINGPAP TESTINGAccess [facility]: 09-06-1164Xrxpvjujg for malignant neoplasm of cervixCervical cancer screenC[facility]: 94-29-5474ZSmC,Tdap and Td Vaccines (1 - Tdap)DTaP,Tdap and Td Vaccines (1 - Tdap)[facility]: 79-56-1972LIfA/Tdap/Td vaccine (1 - Tdap)DTaP/Tdap/Td vaccine (1 - Tdap)[facility]: 20-71-6027Lufxb microalbumin profileDTAP,TDAP,TD (1 - Tdap)[facility]: 72-45-1643Jnfyk BMI Follow Up PlanAdult BMI Follow Up [facility]: 84-98-8401VBXDYVEVT C SCREENING HEPATITIS C SCREENINGAccess Hospital [facility]: 90-00-5707RZA SCREENINGHIV SCREENING [facility]: 63-41-7056POV screeningHIV screenCranford, [place] Start: 50-25-9966Bprep depression screening assessmentDEPRESSION SCREENING [facility]: 99-91-2537XUTTQ-19 VACCINE (#1)COVID-19 VACCINE (#1) [facility]: 93-85-8960GOBGT-19 VACCINE (1)COVID-19 VACCINE (1) [facility]: 42-56-8614WBDCG-19 VACCINE (#1)COVID-19 VACCINE (#1) [facility] HospitalFerritin [Mass/volume] in Serum or PlasmaFERRITIN BLD Lab Routine Iron deficiency anemia, unspecified iron deficiency anemia type 21:31 PM [facility] Work Phone: Iron and Iron binding capacity panel - Serum or Plasma IRON + TIBC Lab Routine Iron deficiency anemia, unspecified iron deficiency anemia type 10/06/2021 1:31 PM [facility] Work Phone: [facility] Immunizations Immunization DateImmunizationNotesCare JsojzmdsXsqbasfm93-37-8532fqftbjbwi virus vaccine, unspecified formulationLissa Erazo [facility] 61-03-4904ryezzknbq, injectable, quadrivalent, preservative Jackson Ward MD Work Phone: [facility] HospitalTebwqq13-41-7503xtxdhkxvy, injectable, quadrivalent, preservative Jackson Ward MD Work Phone: [facility] Payers DatePayer CategoryPayerPolicy [id number]-bgm [id number] Specialty Center at [facility] xxxxxxxxxxxx 2014-Present [phone] [address] [place], [place] [address]pcxponjbhxxt [id number] 2003[place] [facility] MEDICAID [id number] 2002-Present [phone] [place] [address] [id number] 2003Medicaid [facility] MEDICAID [id number] 2..1.850123.3.5[id number] 2..1.670180.3.57[id number] 2..1.360267.3.579.229083-49-3830Wgqglty1728369 2..1.098539.3.579.2.28740-57-2286Uyunysw2859004 2..1.694713.3.579.246990-41-3328Ghatjpa1493982 2..1.369643.3.579.2.55760-02-0279Gncejgj4476592 2.16.840.1.690891.3.57[id number] 2.16.840.1.148465.3.579.2.21100-73-6625Hupshkg9899131 2.840.1.217756.3.579.2.63863-18-7295Upvoluh9552695 2.840.1.959894.3.57[id number] 2.840.1.971815.3.579.2.47256-95-8648Kwnkupv1018610 2.0.1.470347.3.579.2.53557-17-0780Qkaociz4696505 2.840.1.972649.3.579.2.13160-55-3884Ybsmmpx5940230 2.840.1.511790.3.579.2.90569-23-3899Dfalxpf4368502 2.840.1.693265.3.579.2.46074-44-7296Hunvjcf5854769 2..1.257214.3.57[id number] 2.840.1.368418.3.57[id number] 2.840.1.385946.3.579.2.[id number] 2.16840.1.944438.3.579.2.33282-30-9978Qbyyzab45947322 2.840.1.552351.3.579.2.41800-73-3158Ovgvbdw0154597 2.840.1.651960.3.579.2.689529-81-6380Blefdzs2488036 2.0.1.861289.3.579.2.164012-16-5177Cfwtqlg5967705 2.840.1.569979.3.579.2.224179-62-0150Quwljdf9111665 2.0.1.371781.3.579.2.986592-10-5640Prbsewf1550800 2.0.1.375048.3.579.2.973718-31-4392Wfaxpnq1750590 2..1.686676.3.579.2.928520-40-1845Rldsaqo4545155 2..1.555216.3.579.2.408588-13-6075Gqhhwmf9560463 2..1.577768.3.579.2.764824-45-1645Fbjnwub1179275 2..1.156833.3.579.2.155287-57-8435Pjgsyns0569216 2..1.612085.3.579.2.630162-29-9852Thwborj512292634 2..1.415704.3.579.2.790571-06-9393Hsldxer37231780 2.0.1.347017.3.579.2.805597-77-6115Qmxtzkt51160732 2..1.236830.3.579.2.475313-59-3538Dupkmkk14425487 2.0.1.224544.3.579.2.461240-39-7149Dsgwkst37975077 2.0.1.332452.3.579.2.33361-39-0145Wwfgdbo85103351 2.16.840.1.726360.3.579.2.03684-84-8528Bigslcg53804477 2.16.840.1.044199.3.579.2.17613-40-5875Skrgpws82026224 2.16.840.1.332795.3.579.2.22706-88-9004Ewiltqb69769398 2.16.840.1.506853.3.579.2.53046-83-6820Huiyfva61246621 2..840.1.750554.3.579.2.03876-67-7790Aguhnap05230023 2.16.840.1.356733.3.579.2.24957-56-0769Gujastx67213386 2..840.1.812587.3.579.2.41342-71-0700Vcyhivg21057162 2.16.840.1.141310.3.579.2.64687-41-7573Outhpgg13955671 2..840.1.799531.3.579.2.55076-84-5433Gkcfekq284223372154 Social History DateTypeDetailFacilfostoria city hospitalTobasurgical [facility] smoking status NHISUnknown if ever smokedC[facility] Clinic [facility]: 30-08-3862Amc Assigned At BirthNot on [facility] smoking status NHISTobacco smoking consumption unknownAccess [facility]: 86-07-3383Qbpbnto smoking status NHISOccasional tobacco smoker [facility]: 12-01-2017 End: 64-46-4634Xctdwpc use and exposureSmokeless tobacco non-userAccess Hospital Daytontart: 08-14-2021 End: 25-18-2558Yphtypz intakeCurrent drinker of alcohol (finding)[facility]: 06-02-2020 End: 32-07-4286Xfclkjl intakeDorothea Dix Hospitaltart: 30-35-2221Ofavcxd SDOH Alcohol CommentsociallyCmedina hospital ClinicStart: 08-04-2021 End: 13-50-9522Qzxlxzgb to SARS-CoV-2 (event)Not sureAccess Hospital [facility]ontart: 61-83-7613Qaq [facility]igned At [facility]: 12-01-2017 End: 40-51-2804Gskhsbr smoking status NHISEx-smokerAccess Hospital Daytontart: 06-02-2020 End: 49-58-7541Yax Assigned At [facility] HospitalHistory of tobacco useCurrent smokerGeorgetown Behavioral HospitalChildcareUnknoSmyth County Community Hospitaltart: 33-30-3703Enxhdcl CommentoccasionDuke University Hospital Start: 24-65-5117TrxInrmym (finding)[facility] Goals DatePatient GoalDesired Activity/State Functional Status CmwaKrbwlamagxWzkmejIenjsxhh29-95-6668Mhcpcttwwg StatusN/AExec[facility]07-11-2023Functional StatusN/A[facility] Clinical Notes 05-29-2021 to 02-18-2025 Note Date & VlosMxswFwltjxde46-31-1054 Note [id number]#1.00[facility]09-25-2025 Miscellaneous Notes* Telephone Encounter - Lissa Erazo CMA - 01/14/2025 3:12 PM EDT EMPANELMENT OUTREACH Neel Garcia has been contacted in effort to establish and/or re- establish care as a new patient with [facility]: Yes Outreach Date: January 14, 2025 Outreach Reason: Attribution Outreach Method: Telephone Outreach Attempt: First Attempt Outreach Outcome: Contacted Patient New Patient Appointment: Declined Attributed Provider: Maribeth Palacios CNP Additional Comments: Patient states that she has a primary care provider and will call to update insurance carrier. documented in this encounterLutheran HospitalBeyond Compliance [id number] Telephone encounter Note* Telephone Encounter - Lissa Erazo CMA - 01/14/2025 3:12 PM EDT EMPANELMENT OUTREACH Neel Garcia has been contacted in effort to establish and/or re- establish care as a new patient with [facility]: Yes Outreach Date: January 14, 2025 Outreach Reason: Attribution Outreach Method: Telephone Outreach Attempt: First Attempt Outreach Outcome: Contacted Patient New Patient Appointment: Declined Attributed Provider: Maribeth Palacios CNP Additional Comments: Patient states that she has a primary care provider and will call to update insurance carrier. [facility] HospitalSpaBoom [id number] Hospital Discharge instructions Patient Education 01/08/2023 15:11:10 Kegel Exercises [...] muscles. These are the same muscles you squeezewhen you try to stop the flow of [...] tight lift in your rectal area. If youare a female, you should also feel a [...] provider. Document Revised: 08/17/2021 Document Reviewed: 08/17/2021 [employer] Patient Education 2022 beqom. Follow Up Care 10/30/2022 11:37:59 With:FRED DUNCAN, AMELIE Ch, URL Address: [address] [place] [address]. [place] [address] When: Unknown Comments:PRN [facility] 07-11-[address] De Los Santos referral HPI [...] Pelvic US 12/20/21 no abnl CMP 02/25/22 inspector and sorter 0.86 CBC 05/30/22 nl +Micro UA 02/25/22 [...] subside. Pt states the pain gets worse atnight time and when she's up on her [...] Pelvic US 12/20/21 no abnl CMP 02/25/22 inspector and sorter 0.86 CBC 05/30/22 nl ICIQ-SF 12 Pt [...] # 2 tab(s), Refills(s) 0, Pharmacy: [facility]/pharmacy #[id number], 170, cm, 10/30/22 10:53:00 EDT, Height/Length Dosing, 86.5, kg, 10/30/22 10:53:00 EDT,... Measure Post Void residual urine and/or bladder capacity by US- non-imaging 24131 Follow-up With When Contact Information AMELIE ESPARZA PA-C, URL In 8 weeks [address] [place] [address] Additional Instructions: after Cysto w/ Dr. Martinez Patient Education Cystoscopy Documentation recorded by the scribe Lamar Estrada accurately reflects the services(s) I performed and decisions made by me. Authentic (more content not included)...[facility] CenterComment on above:Result Comment: Electronically Signed By: AMELIE ESPARZA PA-C.br\Date and Time Signed: 10/31/2311:34 EDT\.br\Electronically Co-Signed By: Lamar Estrada.br\Date and Time Co-Signed: 10/30/22 11:29 GBS37-46-2417 Hospital Discharge instructions Patient Education 10/30/2022 11:19:09 Cystoscopy Cystoscopy [...] including vitamins, herbs, eye drops, creams, and sihx-ats-verpzif medicines. Any problems you or family members [...] provider tells you to take them. Taking gubw-kjf-fvjqjbl medicines, vitamins, herbs, and supplements. Tests You [...] Follow these instructions at home: Medicines Take bvnm-nal-dzipccw and prescription medicines only as told by your health care provider. If you were prescribed an antibiotic medicine, take it as told by your health care provider. Do notstop taking the antibiotic even if you start [...] blood in your urine increases, call your healthcare provider. Follow instructions from your health care provider about eating or drinking restrictions. If a tissue sample was removed for testing (biopsy) during your procedure, it is up to you to get your test results. Ask your health care provider, or the department that is doing the test, when yourresults will be ready. Drink enough fluid to [...] blood in your urine increases, call your healthcare provider. If you were prescribed an antibiotic medicine, take it as told by your health care provider. Do notstop taking the antibiotic even if you start to feel better. This information is not intended to replace advice given to you by your health care provider. Make sure you discuss any questions you have with your health care provider. Document Revised: 12/20/2021 Document Reviewed: 11/18/2020 [employer] Patient Education 2022 beqom. Follow Up Care 08/31/2022 13:02:06 With:FRED DUNCAN, AMELIE Ch, URL Address: [address] [address] When:Within 8 Week(s) Comments:after Cysto w/ Dr. Martinez [facility] 07-11-2023 NoteUrology Cystoscopy Cystoscopy is a procedure that is [...] including vitamins, herbs, eye drops, creams, and atia-bqc-quaahrj medicines. ? Any problems you or family [...] tells you to take them. ? Taking maey-ckx-apyeoto medicines, vitamins, herbs, and supplements. Tests You [...] taken to help prevent infection. These steps mayinclude: ? Washing skin with a germ-killing soap. [...] these instructions at home: Medicines ? Take qhkz-zss-sequyev and prescription medicines only as told by [...] procedure, it is up to you to getyour test results. Ask your health care provider, or the department th (more content not included)...[facility] 11-14-2021 Miscellaneous Notes* Telephone Encounter - Jian De La Cruz RN - 11/14/2021 3:15 PM EDT Informed pt of Dr Ward's message. Pt verbalized understanding and denies further needs at this time. Jian De La Cruz RN * Telephone Encounter - Jian De La Cruz RN - 11/14/2021 3:15 PM EDT ----- Message from Alina Barros RN sent at 11/13/2021 1:26 PM EDT ----- ----- Message ----- From: Nehemias Ward MD Sent: 11/11/2021 6:10 AM EDT To: Alina Barros RN Ri Tiff. Can you please call pt and let her know that the iron profile is normal? No change in the recommendation. MAKENZIE Toribio documented in this encounterMckitrick Hospital07-22-2022 NoteHNO ID: [id number] Author: Nehemias Ward MD Service: ? Author [...] provide more details. She was born in [place] and has lived in [place] in the past. She reports occasional smoking - cigars that are dipped in cognac - last use a month back. Occasional alcohol use. No other substance abuse reported. She lives with her with 5 children. She is not working now but used to work at [employer] (was laid off during -). MEDICATIONS AND [...] which included preparing to see the patient, tmbv-ev-apfq patient care, completing clinical documentation, obtaining and/or reviewing separately obtained history, performing a medically appropriate examination, counseling and educating the patient/family/caregiver, ordering medications, tests, or procedures, independently interpreting results (not separately reported) and communicating results to the patient/family/caregiver. CC: Blade Crews Sr.[facility]06-17-2022 Miscellaneous Notes* [facility] - [facility]06/[facility]21 1:13 PM EDT 1st report of treatment-Non oncology regimen (Monoferric) Patient has [place] Medicaid therefore noFA is required documented in this encounterMckitrick Hospital06-10-2022 Miscellaneous Notes* Telephone Encounter - Vanna Villar - 09/29/2021 9:23 AM EDT Patient has been scheduled for Monoferric on 10/06 and follow up 11/10. Patient has been notified. Vanna Villar * Telephone Encounter - Nehemias Ward MD - 09/29/2021 8:50 AM EDT I spoke with the patient regarding the iron profile results. Ferritin has decreased from 33 to 22 despite adequate oral supplementation. My recommendation is to stop oral iron and do a dose of Monoferric next week. Patient is agreeable with the plan. Orders have been placed. PSS Please schedule an appointment for next Saturday for an iron infusion. No appointment needed withme. I will see the patient back in 6 weeks for repeat assessment with labs. Thanks Nehemias Ward MD documented in this encounterMckitrick Hospital06-09-2022 NoteHNO ID: [id number] Author: Nehemias Ward MD Service: ? Author [...] provide more details. She was born in [place] and has lived in [place] in the past. She reports occasional smoking - cigars that are dipped in cognac - last use a month back. Occasional alcohol use. No other substance abuse reported. She lives with her with 5 children. She is not working now but used to work at [employer] (was laid off during ). MEDICATIONS AND [...] which included preparing to see the patient, yuoa-ia-tskg patient care, completing clinical documentation, obtaining and/or reviewing separately obtained history, performing a medically appropriate examination, counseling and educating the patient/family/caregiver, ordering medications, tests, or procedures, independently interpreting results (not separately reported) and communicating results to the patient/family/caregiver. CC: Blade Crews Sr.[facility]06-09-2022 History of Present illness Narrative* Nehemias Ward MD - 09/28/2021 1:52 PM EDT HEMATOLOGY FOLLOW UP Elements in this clinic [...] aspirin but admits to use of naproxen forabdominal pain. She is a poor historian and cannot recollect the last dose. She reports long standin g bleeding gums since childhood. She reports bright [...] nonspecific GI pain. No immanuel GI or GUbleeding. Scopes last week were notable for hemorrhoids [...] provide more details. She was born in [place] She reports occasional smoking - cigars that are dipped in cognac - last use a month back. Occasional alcohol use. No other substance abuse reported. She lives with [facility] with 5 children. She is not working now but used to work at [employer] (was laid off during ). MEDICATIONS AND ALLERGIES: Reviewed PHYSICAL EXAM BP 116/70 Pulse 65 Temp 36.4 C (97.6 F) (Temporal) Resp 16 Ht 167.6 cm (5' 5.98 ) Wt 86.5kg (190 lb 12.8 oz) LMP 09/20/2021 SpO2 [...] which included preparing to see the patient, ckvp-tm-chkw patient care, completing clinical documentation, obtaining and/or reviewing separately obtained history, performing a medically appropriate examination, counseling and educating the pat ient/family/caregiver, ordering medications, tests, or procedures, independently interpreting results (not separately reported) and communicating results to the patient/family/caregiver. CC: Blade Crews Sr. documented in this encounterMckitrick Hospital06-01-2022 Procedure [facility]04-25-2022 NoteHNO ID: [id number] Author: Nehemias Ward MD Service: ? Author [...] provide more details. She was born in [place] and has lived in [place] in the past. She reports occasional smoking - cigars that are dipped in cognac - last use a month back. Occasional alcohol use. No other substance abuse reported. She lives with her with 5 children. She is not working now but used to work at [employer] (was laid off during -). MEDICATIONS AND [...] which included preparing to see the patient, pijk-vp-yoel patient care, completing clinical documentation, obtaining and/or reviewing separately obtained history, performing a medically appropriate examination, counseling and educating the patient/family/caregiver, ordering medications, tests, or procedures, independently interpreting results (not separately reported) and communicating results to the patient/family/caregiver. CC: Blade Crews Sr.[facility]04-25-2022 History of Present illness Narrative* Nehemias Ward MD - 08/14/2021 1:45 PM EDT HEMATOLOGY FOLLOW UP Elements in this clinic [...] aspirin but admits to use of naproxen forabdominal pain. She is a poor historian and cannot recollect the last dose. She reports long standin g bleeding gums since childhood. She reports bright [...] Overall doing well. No new symptoms. Scopes topostponed due to a non-COVID related GI infection. [...] provide more details. She was born in [place] and [place] the [place]. She reports occasional smoking - cigars that are dipped in cognac - last use a month back. Occasional alcohol use. No other substance abuse reported. She lives with [facility] with 5 children. She is not working now but used to work at [employer] (was laid off during COVID-19). MEDICATIONS AND ALLERGIES: Reviewed PHYSICAL EXAM BP 115/57 Pulse 65 Temp 36.2 C (97.1 F) (Temporal) Resp 16 Ht 167.6 cm (5' 5.98 ) Wt 88.7kg (195 lb 9.6 oz) LMP 05/26/2021 SpO2 92% BMI 31.59 kg/m Head atraumatic, no pallor, icterusor lymphadenopathy, lungs clear to auscultation, heart sounds [...] which included preparing to see the patient, igsy-tt-qjck patient care, completing clinical documentation, obtaining and/or reviewing separately obtained history, performing a medically appropriate examination, counseling and educating the pat ient/family/caregiver, ordering medications, tests, or procedures, independently interpreting results (not separately reported) and communicating results to the patient/family/caregiver. CC: Blade Crews Sr. documented in this encounterMckitrick Hospital03-07-2022 NoteHNO ID: [id number] Author: Nehemias Ward MD Service: ? Author [...] provide more details. She was born in [place] and has lived in [place] in the past. She reports occasional smoking - cigars that are dipped in cognac - last use a month back. Occasional alcohol use. No other substance abuse reported. She lives with her with 5 children. She is not working now but used to work at [employer] (was laid off during ). MEDICATIONS AND [...] which included preparing to see the patient, waer-fo-scdv patient care, completing clinical documentation, obtaining and/or reviewing separately obtained history, performing a medically appropriate examination, counseling and educating the patient/family/caregiver, ordering medications, tests, or procedures, independently interpreting results (not separately reported) and communicating results to the patient/family/caregiver. CC: Blade Crews Sr.[facility]02-07-2022 NoteHNO ID: [id number] Author: Nehemias Ward MD Service: ? Author [...] provide more details. She was born in [place] and has lived in [place] in the past. She reports occasional smoking - cigars that are dipped in cognac - last use a month back. Occasional alcohol use. No other substance abuse reported. She lives with her with 5 children. She is not working now but used to work at [employer] (was laid off during ). MEDICATIONS AND [...] which included preparing to see the patient, vixv-qk-ocac patient care, completing clinical documentation, obtaining and/or reviewing separately obtained history, performing a medically appropriate examination, counseling and educating the patient/family/caregiver, ordering medications, tests, or procedures, independently interpreting results (not separately reported) and communicating results to the patient/family/caregiver. CC: Blade Crews Sr.[facility] + Plan note Future Appointments Appointment Date:01/08/2023 03:00:00 PM Scheduled Provider:AMELIE ESPARZA PA-C Location:[facility] Appointment Type:URO Office Visit [facility] evaluation note* Diagnosis Iron deficiency anemia, unspecified iron deficiency anemia type- Primary [facility]No assessment information [facility]Green [facility] Work Phone: Evaluation note* Diagnosis Iron deficiency anemia, unspecified iron deficiency anemia type- Primary Easy bruisability Other symptoms involving skin and integumentary tissues documented [facility]* Diagnosis Iron deficiency anemia, unspecified iron deficiency anemia type documented in this encounter [facility]* Diagnosis Onset Date Resolution Status Iron deficiency anemia [facility] Work Phone: Evaluation note* Diagnosis Iron deficiency anemia, unspecified iron deficiency anemia type- Primary [facility] Author Bryan Quiros [facility] September 20, 2021 7:58amNote Date/TimeJun2021 7:[address] [address] Gastroenterology H&P Signed Patient: Neel Garcia MR#: [id number] : 1980 Acct:[id number] Age/Sex: 41 / F Adm Date: 2 Loc: Room: Type: [facility] Attending Dr: Bryan Quiros DO Copies to: DO Bryan Howard Jr, ~ Date of Service: 09/20/2021 Gastroenterology HPI History of Present Illness HPI: Ms. Garcia is a 41 year old female with iron deficiency anemia, no outward signs of bleeding. LastEGD and colonoscopy were 4 yrs ago by [...] by Bryan Quiros Jr, DO> 09/20/21 0758 [facility] Work Phone: Hospital course Narrative No data available for this section [facility] InstructionsNot on filedocumented in this encounter [facility] SystemProgress note No data available for this section [facility] Reason for Referral StatusReasonSpecialtyDiagnoses / ProceduresReferred By ContactReferred To ContactOpenRadiology Diagnoses Intractable epilepsy without status epilepticus, unspecified epilepsy type (HCC) Procedures MRI BRAIN W WO CONTRAST Alex Little MD [address] [place] [address] Assessments Diagnosis Intractable epilepsy without status epilepticus, unspecified epilepsy type (HCC) Advance Directives No Advanced Directives Records FoundDocuments on File TypeDate RecordedPatient RepresentativeExplanationAdvance Directives and Living WillPower of Examiner Rating Clerk Advance Directive Response Recorded Date/ Time Advance Directives No April 28, 2018 8:25am Summary Purpose Family History No Family History Records Found Relationship Condition Age at Onset Recorded Date/T adeola Not Specified Malignant neoplasm of cervix Unknown fatherRenal failureUnknowngrandparentPresence of cardiac pacemakerUnknown grandparentMalignant neoplasm of pancreasUnknown Chief Complaint and Reason for Visit Chief Complaint Iron Deficiency Anem ia Iron Deficiency Anemia Chief Complaint Iron Deficiency Anem ia Iron Deficiency Anemia Iron Deficiency Anemia Chief Complaint Iron Deficiency Anem ia Iron Deficiency Anemia Iron Deficiency Anemia Iron Deficiency AnemiaReason for VisitIron deficiency anemia Medications Administered Section Medication OrderMAR ActionAction DateDoseRateSite acetaminophen 650 mg tab(s) (TYLENOL) 650 mg, ORAL, ONCE, 1 dose, On Sat10/06/21 at 1400, Give 30 minutes prior to infusion. No more [id number] mg of acetaminophen should be given per day (FROM ALL SOURCES), If ordered PRN for pain, patient/guardian may elect to receive this medication for higher pain levels INSTEAD of the opioid, if preferred: N/A Given10/06/2021 1:49 PM FGB019 mg diphenhydrAMINE 50 mg (BENADRYL) 50 mg, ORAL, ONCE, 1 dose, On Sat10/06/21 at 1400, Give 30 minutes prior to infusion. Given10/06/2021 1:49 PM EDT50 mg ferric derisomaltose 1,000 mg in NaCl 0.9% 100 mL (MONOFERRIC) 1,000 mg (set by rule on 09/29/2021 8:50 AM), INTRAVENOUS, Administer over 45 Minutes, ONCE, 1 dose,On Sat10/06/21 at 1400, Monitor patient for hypersensitivity reactions during the infusion and for 30 minutes after infusion is complete. EXP 2200 10/05/21 TV 120 mL EXP: (8 HR) New Bag/Syringe/[id number]/06/2021 2:20 PM EDT1,000 mg Additional Source Comments Reason for Visit (unrecogniz ed section and content) StatusReasonSpecialtyDiagnoses / ProceduresReferred By ContactReferred To ContactClosedRadiology Diagnoses Epilepsy, unspecified, not intractable, without status epilepticus Procedures HC MRI-BRAIN WO & W CONTRAST Alex Little MD [address] [place] [address] [address] [place] [address] ReasonCommentsAnemia1 month follow upReasonCommentsAnemiaReasonCommentsResults ReasonCommentsBenefits InvestigationSpecialtyDiagnoses / ProceduresReferred By ContactReferred To Contact Diagnoses Iron deficiency anemia, unspecified iron deficiency anemia type Procedures INJECTION, FERRIC DERISOMALTOSE, 10 MG Nehemias Ward MD [address] [place] [address] [place] [address] [address] [place] [address] Referral IDStatusReasonStart DateExpiration DateVisits RequestedVisits [id number] DateComments Establish Care01/14/2025 INFORMATION SOURCE (unrecogn ized section and content) DATE CREATED AUTHOR 11/12/2019 [facility] DATE CREATED AUTHOR AUTHOR'S ORGANIZ ATION 09/24/2021 [facility] DATE CREATED AUTHOR AUTHOR'S ORGANIZ ATION 11/16/2021 [facility] DATE CREATED AUTHOR AUTHOR'S ORGANIZ ATION 06/05/2022 [facility] DATE CREATED AUTHOR AUTHOR'S ORGANIZ ATION 01/09/2023 [facility] DATE CREATED AUTHOR AUTHOR'S ORGANIZ ATION 12/12/2023 [facility] DATE CREATED AUTHOR AUTHOR'S ORGANIZ ATION 06/01/2024 [facility] DATE CREATED AUTHOR AUTHOR'S ORGANIZ ATION 02/27/2025 [facility] Source Comments (unrecognize d section and content) In the event this informatio n is protected by the Federal Confidentiality of Alcohol and Drug Abuse Patient Records regulations: The Federal rules restrict any use of the information to criminally investigate or prosecute any alcohol or drug abuse patient.[facility] HospitalIn the event this information is protected by the Federal Confidentiality of Alcohol and Drug Abuse Patient Records regulations: The Federal rules restrict any use of the information to criminally investigate or prosecute any alcohol or drug abuse patient.[facility] HospitalIn the event this information is protected by the Federal Confidentiality of Alcohol and Drug Abuse Patient Records regulations: The Federal rules restrict any use of the information to criminally investigate or prosecute any alcohol or drug abuse patient.[facility] HospitalIn the event this information is protected by the Federal Confidentiality of Alcohol and Drug Abuse Patient Records regulations: The Federal rules restrict any use of the information to criminally investigate or prosecute any alcohol or drug abuse patient.[facility] HospitalIn the event this information is protected by the Federal Confidentiality of Alcohol and Drug Abuse Patient Records regulations: The Federal rules restrict any use of the information to criminally investigate or prosecute any alcohol or drug abuse patient.[facility] HospitalIn the event this information is protected by the Federal Confidentiality of Alcohol and Drug Abuse Patient Records regulations: The Federal rules restrict any use of the information to criminally investigate or prosecute any alcohol or drug abuse patient.[facility] HospitalIn the event this information is protected by the Federal Confidentiality of Alcohol and Drug Abuse Patient Records regulations: The Federal rules restrict any use of the information to criminally investigate or prosecute any alcohol or drug abuse patient.[facility] Care Teams (unrecognized sec tion and content) Team MemberRelationshipSpecialtyStart DateEnd Date Isiah Evangelista[address] [place] [address] ReferringOB/GYN07/29/18Team MemberRelationshipSpecialtyStart DateEnd Date Blade Crews Sr. [address] [facility] [place] [address] PCP - GeneralFamily Practice05/29/21 Isiah Evangelista [address] [place] [address] ReferringOB/GYN4/01/08 Team Status: Inactive Member Role Status Dates Blade Crews , Primary Care Provider Active Bryan Quiros DOAttending ProviderActive Team Status: Active Member Role Status Dates Blade Crews , Primary Care Provider Active Team MemberRelationshipSpecialtyStart [facility], Blade Keys Sr. [address] [place] [address] PCP - GeneralFamily Practice05/29/21 Isiah Evangelista [address] [place] [address] ReferringOB/GYN07/29/18Team MemberRelationshipSpecialtyStart [facility] CenterBl[facility] Sr[facility] [address] [place] [address] PCP - GeneralFamily Practice05/29/21 Isiah Evangelista [address] [place] [address] ReferringOB/GYN4Team MemberRelationshipSpecialtyStart [facility] CenterBlade Sr. [address] [place] [place] [address] PCP - GeneralFamily Practice05/29/21 Isiah Evangelista [address] [place] [address] ReferringOB/GYN4Team MemberRelationshipSpecialtyStart DateEnd Blade Bray Sr. [address] [place] [address] PCP - GeneralFamily Practice05/29/21 Isiah Evangelista [address] [place] [address] ReferringOB/GYN07/29/18Team MemberRelationshipSpecialtyStart DateEnd Date Blade Crews DO PCP - GeneralFamily Amhgmjot55/25/24 Goals (unrecognized section and content) Goals may be documented in a n alternate sectionGoals may be documented in an alternate section No data available for this section No data available for this sectionNot on filedocumented as of this encounter FOR RECORDS PERTAINING TO PATIENTS WHO ARE [...] BE BASED ON THE PRIMARY CLINICAL RECORDS. [facility] [employer] [facility]. provides no warranty or guarantee of the accuracy or completeness of information in this document.
[2025-03-04] MEDS: 0.9 % SODIUM CHLORIDE 1,000 ML 999 ML IV (13:35)
[2025-03-04 13:46] LABS: Hematocrit 39.3 % (36.0-48.0); Hemoglobin 13.2 g/dL (12.0-16.0); Immature Granulocytes Abs Auto 0.01 10^3/uL (0.00-0.03); Immature Granulocytes Pct Auto 0.3 % (0.0-0.5); Lymphocytes Absolute Auto 1.3 10^3/uL (1.2-3.8); Mean Corpuscular HGB Conc 33.6 g/dL (29.9-35.2); Mean Corpuscular Hemoglobin 29.7 pg (26.7-34.0); Mean Corpuscular Volume 88.5 fL (81.0-99.0); Platelet Count 215 10^3/uL (150-450); Red Blood Count 4.44 10^6/uL (4.20-5.40); White Blood Count 3.7 10^3/uL (4.0-11.0)
[2025-03-04 13:59] LABS: Alanine Aminotransferase 23 U/L (14-59); Albumin Globulin Ratio 1.1; Albumin Level 3.7 g/dL (3.4-5.0); Alkaline Phosphatase 63 U/L (46-116); Anion Gap 10.3; Aspartate Amino Transferase 11 U/L (15-37); Blood Urea Nitrogen 7.0 mg/dL (7.0-18.0); Calcium 8.4 mg/dL (8.5-10.1); Carbon Dioxide 28.0 mmol/L (21.0-32.0); Chloride 104 mmol/L (98-107); Estimated GFR (African America >60 (>=60 mL/min/1.73m^2); Estimated GFR (Non-African Ame >60 (>=60 mL/min/1.73m^2); Globulin 3.3 g/dL; Glucose 94 mg/dL (74-106); Potassium 3.3 mmol/L (3.5-5.1); Sodium 139 mmol/L (136-145); Total Protein 7.0 g/dL (6.4-8.2)
[2025-03-04 15:08] VITALS: BP 135/77; PULSE 66; O2SAT 98
== END 2025-03-04 15:10 | disposition home or self-care (01) ==
PROVIDERS: Nurse Practitioner Family; Emergency Provider Emergency Medicine; PCP Family Medicine
DX: R11.2 Nausea with vomiting, unspecified (principal); R19.7 Diarrhea, unspecified; Z87.891 Personal history of nicotine dependence
CPT/HCPCS: 36415; 80053; 85025; 87045; 87046; 87427; 96361; 96374; 99284; J2405